=== PATIENT | male | born 1950 | race African-American/Black ===

== ENCOUNTER → 2016-05-14 | Outpatient (CLI) | payer MEDICARE, OTHER ==
[~2016-05-14] MED LIST: ASP325T; CPRH4T; HALO0.5T; HYDR-34; INSU100C; INSU100V13; INSU100V6; LENA25CA; LISI-556; MORP30TA16; OMEP-10; RANI-10; TEMA30CA6; TRAZ150T42; TRM50T; VENL150C53
--- OUTSIDE RECORDS SUMMARY | 2016-05-14 13:33 | XMS REPORT | Clinical Summary ---
Author Author Admin, [place] Organization [employer] Address Unknown Phone Unavailable Allergies, Adverse Reactions, Alerts Allergy Name Reaction Description Start Date Severity Status Provider ERYTHROMYCIN Stomach cramps Moderate Active Prosper Arenas MD CODEINE Critical Active Maliheh Ziglari DURABLE MEDICAL EQUIPMENT REPAIRER DARVOCET Critical Active Maliheh Ziglari DURABLE MEDICAL EQUIPMENT REPAIRER LEVAQUIN Critical Active Maliheh Ziglari DURABLE MEDICAL EQUIPMENT REPAIRER Conditions or Problems Problem Name Problem Code Onset Date Status Entry Date Provider Comment Standard Description Annotate Diabetes, Type 2 250.00 Active Mekhi Dukes MD Diabetes mellitus 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, type II or unspecified type, not stated as uncontrolled Hyperlipidemia 272.4 Active Mekhi Dukes MD Other and unspecified hyperlipidemia Hypertension 401.9 Active Mekhi Dukes MD Unspecified essential hypertension FH Colon Cancer V16.0 Active Mekhi Dukes MD Family history of malignant neoplasm of gastrointestinal tract FH Diabetes V18.0 Active Mekhi Dukes MD Family history of diabetes mellitus Abdominal pain, right upper quadrant 789.01 Active Mekhi Dukes MD Abdominal pain, right upper quadrant Syncope and collapse 780.2 Active Prosper Arenas MD Syncope and collapse Hypokalemia 276.8 Active Prosper Arenas MD Hypopotassemia Diabetes mellitus, type II, uncontrolled 250.02 Active Maliheh Ziglari DURABLE MEDICAL EQUIPMENT REPAIRER Diabetes mellitus 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, type II or unspecified type, uncontrolled Chest pain, atypical 786.59 Active Prosper Arenas MD Other chest pain Bronchitis 490 Active Prosper Arenas MD Bronchitis, not specified as acute or chronic Multiple myeloma 203.00 Active Gena Faux RMA Multiple myeloma 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 having achieved remission Hypercalcemia 275.42 Active Gena Faux RMA Hypercalcemia Cough 786.2 Active Augustina Mata APRN Cough Vertigo 780.4 Active Prosper Arenas MD Dizziness and giddiness Preventive health care V70.0 Active Betsy Buck Routine general medical examination at a health care facility Encounter for fitting and adjustment of vascular catheter V58.81 Active Rogers Doty RN Encounter for fitting and adjustment of vascular catheter Type 2 diabetes mellitus with hyperglycemia 250.00 Active 03/21 Maliheh Ziglari DURABLE MEDICAL EQUIPMENT REPAIRER Diabetes mellitus 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, type II or unspecified type, not stated as uncontrolled 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 V58.67 Active Maliheh Ziglari DURABLE MEDICAL EQUIPMENT REPAIRER Long-term (current) use of insulin Diabetes mellitus, type II with hypoglycemia 250.80 Active 07/22 Maliheh Rodrigoglari DURABLE MEDICAL EQUIPMENT REPAIRER Diabetes mellitus with other specified manifestations, type II or unspecified type, not stated as uncontrolled 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 INSULIN GLARGINE 39749484152 Active Maliheh Ziglari DURABLE MEDICAL EQUIPMENT REPAIRER Active MECLIZINE HCL 25 MG TABS 1 daily needed for dizziness MECLIZINE HCL 82453019433 No Longer Active Maliheh Ziglari DURABLE MEDICAL EQUIPMENT REPAIRER Active ACCU-CHEK JOANNA PLUS STRP check blood sugars 3x a day GLUCOSE BLOOD 27684420967 Active [facility] Ziglari DURABLE MEDICAL EQUIPMENT REPAIRER Active NOVOLOG FLEXPEN 100 UNIT/ML SOPN Take 25 units with each meal, add 2u/50 for blood sugars above 150. INSULIN ASPART 72589929548 [facility] DURABLE MEDICAL EQUIPMENT REPAIRER Active BENZONATATE 200 MG CAPS 1 tab, 2-3 times a day BENZONATATE 71004055499 No Longer Active [facility] DURABLE MEDICAL EQUIPMENT REPAIRER Active HALOPERIDOL 0.5 MG TABS one tablet three times a day HALOPERIDOL 06833811257 No Longer Active [facility] DURABLE MEDICAL EQUIPMENT REPAIRER Active TRAZODONE HCL 50 MG TAB three tablets at bed time TRAZODONE HCL 59005061330 No Longer Active [facility] DURABLE MEDICAL EQUIPMENT REPAIRER Active REVLIMID 25 MG CAPS one capsule daily for 21 days then off for 7 days 2014 LENALIDOMIDE 39699301772 No Long[facility] DURABLE MEDICAL EQUIPMENT REPAIRER Active ZITHROMAX Z-EDDIE 250 MG TABS 2 today, then 1 daily for 4 days 2014 AZITHROMYCIN 62607422269 No Longer Active Augustina Mata ADOPTION SPECIALIST Active NOVOLIN R RELION 100 UNIT/ML INJ SOLN 30- 40 units each meal sliding scale INSULIN REGULAR HUMAN 94887102456 No Longer Active [facility] DURABLE MEDICAL EQUIPMENT REPAIRER Active LISINOPRIL 5 MG TABS 1 daily LISINOPRIL 02606014654 Active Prosper Arenas MD Active CALCIUM 500/D 500-200 MG-UNIT TABS one tablet daily CALCIUM CARBONATE- VITAMIN D 92122987967 Active Prosper Arenas MD Active HYDROCHLOROTHIAZIDE 25 MG TABS 1 tablet by mouth daily HYDROCHLOROTHIAZIDE 30139086808 Active Prosper Arenas MD Active HYDROCODONE-ACETAMINOPHEN 5-500 MG TABS 1-2 FOUR TIMES A DAY, PRN HYDROCODONE-ACETAMINOPHEN 82514593495 No Longer Active Prosper Arenas MD Active SIMVASTATIN 80 MG TABS 1/2 tablet daily SIMVASTATIN 36830967706 Active Prosper Arenas MD Active METOPROLOL TARTRATE 25 MG TABS 1/2 tablet twice a day METOPROLOL TARTRATE 41316010608 Active Prosper Arenas MD Active ASPIRIN 81 MG TAB 1 tablet by mouth daily ASPIRIN 80626333584 Active Prosper Arenas MD Active OMEPRAZOLE 20 MG CPDR 1 qd OMEPRAZOLE 95181775321 Active DARCIE Miller Active DOXYCYCLINE HYCLATE 100 MG CAPS take one capsule by mouth twice daily for ten days DOXYCYCLINE HYCLATE 52732879926 No Longer Active Mekhi Dukes MD Active DOXYCYCLINE HYCLATE 100 MG CAPS take one capsule by mouth twice daily for ten days DOXYCYCLINE HYCLATE 100 MG CAPS 5090436 DOXYCYCLINE HYCLATE Inactive HYDROCODONE-ACETAMINOPHEN 5-500 MG TABS 1-2 FOUR TIMES A DAY, PRN HYDROCODONE-ACETAMINOPHEN 5-500 MG TABS HYDROCODONE- ACETAMINOPHEN Inactive NOVOLIN R RELION 100 UNIT/ML INJ SOLN 30- 40 units each meal sliding scale NOVOLIN R RELION 100 UNIT/ML INJ SOLN INSULIN REGULAR HUMAN Inactive ZITHROMAX Z-EDDIE 250 MG TABS 2 today, then 1 daily for 4 days 2014 ZITHROMAX Z-EDDIE 250 MG TABS 7591309 AZITHROMYCIN Inactive REVLIMID 25 MG CAPS one capsule daily for 21 days then off for 7 days 2014 REVLIMID 25 MG CAPS LENALIDOMIDE Inactive TRAZODONE HCL 50 MG TAB three tablets at bed time TRAZODONE HCL 50 MG TAB 725861 TRAZODONE HCL Inactive HALOPERIDOL 0.5 MG TABS one tablet three times a day HALOPERIDOL 0.5 MG TABS 853868 HALOPERIDOL Inactive BENZONATATE 200 MG CAPS 1 tab, 2-3 times a day BENZONATATE 200 MG CAPS 441276 BENZONATATE Inactive MECLIZINE HCL 25 MG TABS 1 daily needed for dizziness MECLIZINE HCL 25 MG TABS 930445 MECLIZINE HCL Inactive Immunizations Vaccine Administration Date Value Standard Description pneumococcal immunization administered 01/19/2015 pneumococcal polysaccharide vaccine, 23 valent influenza immunization (Flu Vax) has been administered 01/19/2015 influenza virus vaccine, unspecified formulation influenza immunization (Flu Vax) has been administered 01/09/2014 influenza virus vaccine, unspecified formulation Vital Signs Date Name Value Unit Range Description blood pressure, diastolic - 8462-4 70 mm[Hg] BP chavez blood pressure, systolic - 8480-6 118 mm[Hg] BP sys pulse rate E&M - 8867-4 84 /min Heart rate weight E&M - 3141-9 192 [lb_av] Weight Measured blood pressure, diastolic - 8462-4 70 mm[Hg] BP chavez blood pressure, systolic - 8480-6 122 mm[Hg] BP sys height E&M - 8302-2 66 [in_us] Bdy height pulse rate E&M - 8867-4 100 /min Heart rate weight E&M - 3141-9 190 [lb_av] Weight Measured blood pressure, diastolic - 8462-4 80 mm[Hg] BP chavez blood pressure, systolic - 8480-6 128 mm[Hg] BP sys pulse rate E&M - 8867-4 96 /min Heart rate weight E&M - 3141-9 192 [lb_av] Weight Measured Diagnostic Results Date Name Value Unit Range Description Office Visit: Diabetes Visit - Chemistry cholesterol, target level 200 mg/dL triglyceride, target level 200 mg/dL HDL cholesterol, serum, target level 35 mg/dL LDL target level 100 mg/dL cholesterol, target level 200 mg/dL triglyceride, target level 200 mg/dL HDL cholesterol, serum, target level 35 mg/dL LDL target level 100 mg/dL cholesterol, target level 200 mg/dL triglyceride, target level 200 mg/dL HDL cholesterol, serum, target level 35 mg/dL LDL target level 100 mg/dL Encounters Code Encounter Date Provider Facility CPT-49526 Level 3 Est. [facility]18[facility]. [facility] 11:05[facility] CPT-30031 Level 3 Est. Patient 11:08:27 [employer] Moy Garcia [facility] CPT-82788 Level 4 Est. Patient 10:43:59 CDT Prosper Arenas MD [facility] CPT-09672 Level 3 Est. Patient 10:51:19 [facility] Level 3 Est. Patient 10:20:31 [facility] Level 3 Est. Patient 17:08:45 [place] [facility] [place]8525 Level 2 Est. Patient 13:54:36 CDT Augustinajaclyn Mata [facility] CPT-29370 Level 3 Est. Patient 12:00:42 CDT Prosper Arenas MD [facility] CPT-19114 Level 3 Est. Patient 09:57:28 [employer] Moy Garcia [facility] CPT-30479 Level 3 Est. Patient 11:41:19 [employer]CH[employer] Moy Garcia [facility] CPT-26475 Level 4 Est. Patient 17:07:35 [employer] ARCH[employer] [facility] CPT-18303 Level 5 Est. Patient 14:33:32 [facility] CPT-99[facility] Level 3 Est. Patient 12:25:35 CDT Prosper Arenas MD [facility] Procedures Code Procedure Name Date Entry Date Standard Description CPT-68594 First Vx - Ix admin for Medicare patients 10:42:57 [employer] CPT-71754 Fluzone Preservative Free Intramuscular Suspension 10:42 :57 [employer] CPT-G0438 Initial Annual Wellness Exam 10:13:55 [employer] CPT-000 Give Appropriate Flu Vaccine 10:44:04 CDT CPT-000 Give Pneumovax 10:44:03 CDT CPT-73098 Port a cath flush 17:04:43 CDT CPT-98740 Prevnar 13 11:19:17 CDT CPT-60573 Fluzone Quadrivalent preservative free (>=3yrs.) 11:19: 17 CDT CPT-62708 Immunization Each Additional Inj 11:19:17 CDT CPT-19032 Immunization Single Admin 11:19:17 CDT CPT-46567 Port a cath flush 13:28:22 CDT CPT-TCMM Transitional Care Mgmt-Moderate 13:40:15 CDT CPT-G0008 Administration of Influenza Virus Vaccine 13:59:20 CDT CPT-01372 Fluzone High-Dose Intramuscular Suspension 13:59:20 CDT CPT-31591 Venipuncture Draw Fee 09:56:19 CDT CPT-OV Office Visit 15:46:10 CDT
--- NOTE | 2016-05-15 08:25 | ECHOCARDIOGRAPHY REPORT ---
PROCEDURE PHYSICIAN: STEF JOE DATE OF PROCEDURE: 05/14/2016 TWO DIMENSIONAL ECHOCARDIOGRAM REPORT PRIMARY PHYSICIAN: OTHER PHYSICIAN: REFERRING PHYSICIAN: ORDERING PHYSICIAN: INDICATION FOR THE PROCEDURE: 1. Hypertension. 2. Dyspnea. MEASUREMENTS DERIVED VALUES LV DIAMETER (LAX) NORMALS NORMALS Diastolic 2.8 (3.6-5.2) Eject. Fract. 60% (60%+/-6%) Systolic (2.3-3.9) Diastolic Vol. % Shortening (0.22-0.42) Systolic Vol. Aortic Root IVS THICKNESS Diastolic 1 (0.6-1.1) LVPW THICKNESS Diastolic 1 (0.6-1.1) LA DIAMETER Systolic 2.3 (2.1-3.7) FINDINGS: 1. Technically difficult study. 2. The left ventricle is normal in size with normal contractility. Systolic function appeared to be normal. Estimated ejection fraction 60%. 3. The left atrium is normal in size. No clot or thrombus were seen within the left atrium. 4. The right atrium and right ventricle are normal in size. No clot or thrombus were seen within the right side. 5. Mitral valve is normal in morphology with mild mitral regurgitation noted by color Doppler flow. No mitral valve prolapse. No mitral valve stenosis. 6. Aortic valve is trileaflet with normal opening and closing pattern. No significant aortic stenosis or regurgitation was seen. 7. Tricuspid valve is normal in morphology with trace tricuspid regurgitation noted by color Doppler flow. Doppler across tricuspid valve estimated pulmonary artery pressure of 3+ right atrial pressure. 8. Pulmonic valve is functioning normally. 9. No pericardial effusion. IN CONCLUSION: 1. Normal left ventricular size and systolic function. Estimated ejection fraction 60%. 2. Mild mitral and tricuspid regurgitation. 3. Estimated pulmonary artery pressure of 10 mmHg. Job ID: [id number] Dictated Date: 05/14/2016 17:58:09 Supervisor Quilting Date: 05/15/2016 08:21:55 / tbk
--- NOTE | 2016-05-15 08:36 | STRESS TEST ---
PROCEDURE PHYSICIAN: STEF JOE DATE OF PROCEDURE: 05/14/2016 EXERCISE STRESS ECHOCARDIOGRAM REPORT: INDICATION FOR THE PROCEDURE: Chest pain. BASELINE HEART RATE: 60 BASELINE BLOOD PRESSURE: 129/74 BASELINE EKG: Sinus rhythm with no ischemic changes. IN SUMMARY: The patient started exercising with a baseline heart rate, blood pressure, EKG mentioned above. He was able to exercise for total of 6 minutes on standard Jason protocol, achieving maximum heart rate of 141, which is 90% of maximum expected heart rate. With peak exercise level, blood pressure was 231/98. EKG was showing minimal nondiagnostic changes. During recovery, heart rate and blood pressure returned to baseline. EKG returned to baseline. Echocardiographic images were acquired and reviewed in the parasternal long axis, parasternal short axis, apical 4 chamber and apical 2 chamber views. Review of the images showed normal left ventricular size with normal contractility. Estimated ejection fraction 60, no ischemic changes. IN CONCLUSION: 1. Good exercise tolerance a total of 6 minutes on standard Jason protocol 7 METs, achieving 90% of maximum expected heart rate. 2. Severe hypertensive response to exercise, returned to baseline during recovery. 3. Minimal nondiagnostic EKG changes with exercise, returned to baseline during recovery. 4. Normal echocardiographic images with no ischemic changes at rest and with peak stress test. Job ID: [id number] Dictated Date: 05/14/2016 18:00:08 Log Hauler Date: 05/15/2016 08:33:05 / ian
== END ==
LOC: CARD 13:28
PROVIDERS: ATTEND Internal Medicine Cardiovascular Disease
DX: I10 Essential (primary) hypertension (principal); E78.2 Mixed hyperlipidemia; E66.9 Obesity, unspecified; I95.9 Hypotension, unspecified; R42 Dizziness and giddiness
CPT/HCPCS: 93306; 93351

== ENCOUNTER 2017-08-25 19:09 | Emergency (ER) | payer MEDICARE, OTHER ==
[~2017-08-25] VITALS: Ht 165.1 cm; Wt 79.4 kg
[2017-08-25 20:02] LABS: BASOPHILS % (AUTO) 0 % (0-10); EOSINOPHILS % (AUTO) 2 % (0-10); HEMATOCRIT 35 % (40-54); HEMOGLOBIN 12.7 G/DL (13.3-17.7); LYMPHOCYTES # (AUTO) 0.2 X 10^3 (1.0-4.0); LYMPHOCYTES % (AUTO) 9 % (12-44); MEAN CORPUSCULAR HEMOGLOBIN 34 PG (25-34); MEAN CORPUSCULAR HGB CONC 36 G/DL (32-36); MEAN CORPUSCULAR VOLUME 92 FL (80-99); MEAN PLATELET VOLUME 11.8 FL (7.4-10.4); MONOCYTES # (AUTO) 0.6 X 10^3 (0.0-1.0); MONOCYTES % (AUTO) 23 % (0-12); NEUTROPHILS # (AUTO) 1.7 X 10^3 (1.8-7.8); NEUTROPHILS % (AUTO) 65 % (42-75); PLATELET COUNT 114 10^3/uL (130-400); RED BLOOD COUNT 3.79 10^6/uL (4.35-5.85); RED CELL DISTRIBUTION WIDTH 11.9 % (10.0-14.5); WHITE BLOOD COUNT 2.6 10^3/uL (4.3-11.0)
[2017-08-25 20:10] VITALS: BP_SYST 118; BP_SYST 132; BP_SYST 99; BP_DIAS 68; BP_DIAS 74
[2017-08-25 20:12] LABS: BILIRUBIN,URINE NEGATIVE (NEGATIVE); CLARITY,URINE CLEAR; COLOR,URINE YELLOW; GLUCOSE, URINE (UA) NEGATIVE (NEGATIVE); KETONES,URINE NEGATIVE (NEGATIVE); LEUKOCYTE ESTERASE ,URINE NEGATIVE (NEGATIVE); NITRITE,URINE NEGATIVE (NEGATIVE); PH,URINE 6 (5-9); PROTEIN,URINE NEGATIVE (NEGATIVE); UROBILINOGEN,URINE 1 MG/DL (NORMAL)
[2017-08-25] MEDS ORDERED: NS IV 1000 ML 1,000 ML IV ONE (20:15)
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
[2017-08-25 20:19] LABS: ALANINE AMINOTRANSFERASE 66 U/L (0-55); ALBUMIN 3.5 GM/DL (3.2-4.5); ALKALINE PHOSPHATASE 96 U/L (40-136); BILIRUBIN,TOTAL 0.4 MG/DL (0.1-1.0); BUN/CREATININE RATIO 13; CALCIUM 8.4 MG/DL (8.5-10.1); CARBON DIOXIDE 18 MMOL/L (21-32); CHLORIDE 108 MMOL/L (98-107); CREATINE KINASE 104 U/L (30-200); CREATININE SERUM 1.47 MG/DL (0.60-1.30); GFR ESTIMATED 58; GLUCOSE 139 MG/DL (70-105); MAGNESIUM 2.1 MG/DL (1.8-2.4); POTASSIUM 3.8 MMOL/L (3.6-5.0); SODIUM 136 MMOL/L (135-145); TOTAL PROTEIN 6.1 GM/DL (6.4-8.2)
--- NOTE | 2017-08-25 20:19 | Diagnostic Imaging Report ---
INDICATION: Short of breath and dizziness. Hypotension. Multiple myeloma Upright chest shows normal heart size and vascularity. The lungs are clear. There is no effusion or pneumothorax. There is no bony abnormality. A Port-A-Cath is present. IMPRESSION: No acute abnormality is seen with no change from 11/05/2010. Dictated by: Dictated on workstation # [id number]
[2017-08-25 20:22] LABS: BACTERIA,URINE NEGATIVE /HPF; SQUAMOUS EPITHELIAL CELL,UR RARE /HPF
[2017-08-25 20:25] LABS: CREATINE KINASE MB 1.2 NG/ML (<6.6)
[2017-08-25 20:35] LABS: BASOPHILS % (MANUAL) 1 %; EOSINOPHILS % (MANUAL) 2 %; LYMPHOCYTES % (MANUAL) 11 %; MONOCYTES % (MANUAL) 18 %; NEUTROPHILS % (MANUAL) 68 %
[2017-08-25 20:36] LABS: RBC MORPH NORMAL
--- OUTSIDE RECORDS SUMMARY | 2017-08-25 20:49 | XMS REPORT | Clinical Summary ---
Author Author Admin, [place] Organization [employer] Address Unknown Phone Unavailable Allergies, Adverse Reactions, Alerts Allergy Name Reaction Description Start Date Severity Status Provider ERYTHROMYCIN Stomach cramps Moderate Active Prosper Arenas MD CODEINE Critical Active Maliheh Ziglari PARASITOLOGY TEACHER DARVOCET Critical Active Maliheh Ziglari PARASITOLOGY TEACHER LEVAQUIN Critical Active Maliheh Ziglari PARASITOLOGY TEACHER Conditions or Problems Problem Name Problem Code Onset Date Status Entry Date Provider Comment Standard Description Annotate Diabetes, Type 2 250.00 Resolved Tami Miller inspector paper products mellitus 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, type II [...] mellitus Abdominal pain, right upper quadrant 789.01 Resolved Mekhi Dukes MD Abdominal pain, right upper quadrant Syncope and collapse 780.2 Resolved Mekhi Dukes MD Syncope and collapse Hypokalemia 276.8 Resolved Tami Miller RN Hypopotassemia Diabetes mellitus, type II, uncontrolled 250.02 Active Maliheh Rodrigoglari PARASITOLOGY TEACHER Diabetes mellitus 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, type II or unspecified type, uncontrolled Chest pain, atypical 786.59 Resolved Mekhi Dukes MD Other chest pain Bronchitis 490 Resolved Mekhi Dukes MD Bronchitis, not specified as acute or chronic Multiple myeloma 203.00 Active Gena Faux RMA Multiple myeloma 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 having achieved remission Hypercalcemia 275.42 Active Gena Faux RMA Hypercalcemia Cough 786.2 Resolved Mekhi Dukes MD Cough Vertigo 780.4 Resolved Mekhi Dukes MD Dizziness and giddiness Preventive health care V70.0 Active Betsy Ronnie Routine general medical examination at a health care facility Encounter for fitting and adjustment of vascular catheter V58.81 Resolved Tami Miller RN Encounter for fitting and adjustment of vascular catheter Type 2 diabetes mellitus with hyperglycemia 250.00 Active 03/21 Maliheh Ziglari PARASITOLOGY TEACHER Diabetes mellitus 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, type II or unspecified type, not stated as uncontrolled long-term use of insulin treatment V58.67 Active Luxiheh Rodrigoglari PARASITOLOGY TEACHER Long-term (current) use of insulin Diabetes mellitus, type II with hypoglycemia 250.80 Active 07/22 Maliheh Ziglari PARASITOLOGY TEACHER Diabetes mellitus with other specified manifestations, type II or unspecified type, not stated as uncontrolled 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 Maliheh Ziglari PARASITOLOGY TEACHER Diabetes mellitus with renal manifestations, type II or unspecified type, not stated as uncontrolled Wellness exam V70.0 Active Dee Palmer APRN Routine general medical examination at a health care facility Fitting and adjustment of vascular catheter V58.81 Active 02/06 Dee Palmer APRN Encounter for fitting and adjustment of vascular catheter Unawareness of hypoglycemia in diabetes mellitus, type II 250.80 Active Maliheh Ziglari PARASITOLOGY TEACHER Diabetes mellitus with other specified manifestations, type II or unspecified type, not stated as uncontrolled Groin pain, right 789.09 Active Prosper Arenas MD Abdominal pain, other specified site; multiple sites Obesity 278.00 Inactive Prosper Arenas MD Obesity, unspecified Obesity (BMI=30-39.9) 278.00 Active Karrie Lawson APRN Obesity, unspecified Cough 786.2 Resolved Tami Miller RN Cough Headache 784.0 Resolved Tami Miller RN Headache Inguinal pain, right 789.09 Active Ismael Gracia MD Abdominal pain, other specified site; multiple sites Erectile Dysfunction Active Ismael Gracia MD Psychosexual dysfunction, hypoactive sexual desire disorder Hepatitis C, acute 070.51 Active Karrie Lawson APRN Acute hepatitis C 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 hepatic coma Inguinal hernia 550.90 Active Karrie Lawson APRN Unilateral or unspecified inguinal hernia, 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 obstruction or gangrene (not specified as recurrent) Diabetes, Type 2 ICD-250.00 Inactive Mekhi Dukes MD Abdominal pain, right upper quadrant ICD-789.01 Inactive Mekhi Dukes MD Syncope and collapse ICD-780.2 Inactive Mekhi Dukes MD Hypokalemia ICD-276.8 Inactive Mekhi Dukes MD Chest pain, atypical ICD-786.59 Inactive Mekhi Dukes MD Bronchitis ICD-490 Inactive Mekhi Dukes MD Cough ICD-786.2 Inactive Mekhi Dukes MD Vertigo ICD-780.4 Inactive Mekhi Dukes MD Encounter for fitting and adjustment of vascular catheter ICD-V58.81 Inactive Mekhi Dukes MD Cough ICD-786.2 Inactive Mekhi Dukes MD Headache ICD-784.0 Inactive Mekhi Dukes MD Medication List Medication Instructions Start Date Stop Date Generic Name NDC Status Provider Patient Instruction HYDROCODONE-ACETAMINOPHEN 7.5-325 MG ORAL TABLET 1-2 every 4-6 hrs prn 02/25 HYDROCODONE-ACETAMINOPHEN 69560765116 Active Marina Messina APRN Active ASPIRIN 81 MG ORAL TABLET 1 tablet by mouth daily ASPIRIN 30355464847 No Longer Active Marina Mesisna APRN Active SIMVASTATIN 80 MG ORAL TABLET 1/2 tablet daily SIMVASTATIN 95351561552 No Longer Active Mekhi Dukes MD Active OMEPRAZOLE 20 MG ORAL CAPSULE DELAYED RELEASE 1 qd OMEPRAZOLE 32305275421 No Longer Active Mekhi Dukes MD Active METOPROLOL TARTRATE 25 MG ORAL TABLET 1/2 tablet twice a day METOPROLOL TARTRATE 19400388499 No Longer Active Mekhi Dukes MD Active LISINOPRIL 5 MG ORAL TABLET 1 daily LISINOPRIL 29273513105 No Longer Active Mekhi Dukes MD Active NOVOLOG FLEXPEN 100 UNIT/ML SUBCUTANEOUS SOLUTION PEN-INJECTOR Take 8 units with each meal, add 1u/50 for blood sugars above 150. INSULIN ASPART 24864896827 Active Moy PARISH Active GABAPENTIN 300 MG ORAL CAPSULE 1 tab BID GABAPENTIN 60079251758 Active Tami Miller RN Active PREDNISONE 20 MG ORAL TABLET Take 2 daily for 3 days and then 1 daily for 3 days PREDNISONE 22792519090 No Longer Active Moy PARISH Active BENZONATATE 200 MG ORAL CAPSULE Take 1 tablet 3 times a day as needed for cough BENZONATATE 26901275896 No Longer Active Prosper Arenas MD Active HYDROCHLOROTHIAZIDE 25 MG ORAL TABLET 1 tablet by mouth daily HYDROCHLOROTHIAZIDE 56039992762 No Longer Active Prosper Arenas MD Active ACCU-CHEK JOANNA PLUS IN VITRO STRIP check blood sugars 5x a day, before each meal and bedtime and 15 minutes after treating a low blood. sugar GLUCOSE BLOOD 97645616567 Active Maliheh Ziglari PARASITOLOGY TEACHER Active LANTUS SOLOSTAR 100 UNIT/ML SUBCUTANEOUS SOLUTION PEN-INJECTOR Take 40 units at 7-8pm daily INSULIN GLARGINE 16125739630 Active Maliheh Ziglari PARASITOLOGY TEACHER Active MECLIZINE HCL 25 MG ORAL TABLET 1 daily needed for dizziness 2015 MECLIZINE HCL 88115026897 No Longer Active Maliheh Ziglari PARASITOLOGY TEACHER Active BENZONATATE 200 MG ORAL CAPSULE 1 tab, 2-3 times a day BENZONATATE 55010741183 No Longer Active Maliheh Ziglari PARASITOLOGY TEACHER Active HALOPERIDOL 0.5 MG ORAL TABLET one tablet three times a day HALOPERIDOL 98939588270 No Longer Active Maliheh Ziglari PARASITOLOGY TEACHER Active TRAZODONE HCL 50 MG ORAL TABLET three tablets at bed time TRAZODONE HCL 86731539395 No Longer Active Maliheh Ziglari PARASITOLOGY TEACHER Active REVLIMID 25 MG ORAL CAPSULE one capsule daily for 21 days then off for 7 days LENALIDOMIDE 26123160193 No Longer Active Maliheh Ziglari PARASITOLOGY TEACHER Active ZITHROMAX Z-EDDIE 250 MG ORAL TABLET 2 today, then 1 daily for 4 days AZITHROMYCIN 84417366981 No Longer Active Augustina Mata APRN Active NOVOLIN R RELION 100 UNIT/ML INJECTION SOLUTION 30- 40 units each meal sliding scale INSULIN REGULAR HUMAN 32783183011 No Longer Active Maliheh Ziglari PARASITOLOGY TEACHER Active CALCIUM 500/D 500-200 MG-UNIT ORAL TABLET one tablet daily CALCIUM CARBONATE-VITAMIN D 78507145536 Active Prosper Arenas MD Active HYDROCODONE-ACETAMINOPHEN 5-500 MG ORAL TABLET 1-2 FOUR TIMES A DAY, PRN 2010 HYDROCODONE-ACETAMINOPHEN 02997242784 No Longer Active Prosper Arenas MD Active DOXYCYCLINE HYCLATE 100 MG ORAL CAPSULE take one capsule by mouth twice daily for ten days DOXYCYCLINE HYCLATE 88405724511 No Longer Active Mekhi Dukes MD Active DOXYCYCLINE HYCLATE 100 MG ORAL CAPSULE take one capsule by mouth twice daily for ten days DOXYCYCLINE HYCLATE 100 MG ORAL CAPSULE 0976200 DOXYCYCLINE HYCLATE Inactive HYDROCODONE-ACETAMINOPHEN 5-500 MG ORAL TABLET 1-2 FOUR TIMES A DAY, PRN 2010 HYDROCODONE-ACETAMINOPHEN 5-500 MG ORAL TABLET 620102 HYDROCODONE-ACETAMINOPHEN Inactive NOVOLIN R RELION 100 UNIT/ML INJECTION SOLUTION 30- 40 units each meal sliding scale NOVOLIN R RELION 100 UNIT/ML INJECTION SOLUTION INSULIN REGULAR HUMAN Inactive ZITHROMAX Z-EDDIE 250 MG ORAL TABLET 2 today, then 1 daily for 4 days ZITHROMAX Z-EDDIE 250 MG ORAL TABLET 998540 AZITHROMYCIN Inactive REVLIMID 25 MG ORAL CAPSULE one capsule daily for 21 days then off for 7 days REVLIMID 25 MG ORAL CAPSULE LENALIDOMIDE Inactive TRAZODONE HCL 50 MG ORAL TABLET three tablets at bed time TRAZODONE HCL 50 MG ORAL TABLET 534205 TRAZODONE HCL Inactive HALOPERIDOL 0.5 MG ORAL TABLET one tablet three times a day HALOPERIDOL 0.5 MG ORAL TABLET 077640 HALOPERIDOL Inactive BENZONATATE 200 MG ORAL CAPSULE 1 tab, 2-3 times a day BENZONATATE 200 MG ORAL CAPSULE 417493 BENZONATATE Inactive MECLIZINE HCL 25 MG ORAL TABLET 1 daily needed for dizziness 2015 MECLIZINE HCL 25 MG ORAL TABLET 755255 MECLIZINE HCL Inactive HYDROCHLOROTHIAZIDE 25 MG ORAL TABLET 1 tablet by mouth daily HYDROCHLOROTHIAZIDE 25 MG ORAL TABLET 404247 HYDROCHLOROTHIAZIDE Inactive PREDNISONE 20 MG ORAL TABLET Take 2 daily for 3 days and then 1 daily for 3 days PREDNISONE 20 MG ORAL TABLET 911909 PREDNISONE Inactive LISINOPRIL 5 MG ORAL TABLET 1 daily LISINOPRIL 5 MG ORAL TABLET 976530 LISINOPRIL Inactive METOPROLOL TARTRATE 25 MG ORAL TABLET 1/2 tablet twice a day METOPROLOL TARTRATE 25 MG ORAL TABLET 452307 METOPROLOL TARTRATE Inactive OMEPRAZOLE 20 MG ORAL CAPSULE DELAYED RELEASE 1 qd OMEPRAZOLE 20 MG ORAL CAPSULE DELAYED RELEASE 604752 OMEPRAZOLE Inactive SIMVASTATIN 80 MG ORAL TABLET 1/2 tablet daily SIMVASTATIN 80 MG ORAL TABLET 520315 SIMVASTATIN Inactive ASPIRIN 81 MG ORAL TABLET 1 tablet by mouth daily ASPIRIN 81 MG ORAL TABLET 176890 ASPIRIN Inactive BENZONATATE 200 MG ORAL CAPSULE Take 1 tablet 3 times a day as needed for cough BENZONATATE 200 MG ORAL CAPSULE 108296 BENZONATATE Inactive Immunizations Vaccine Administration Date Value Standard Description influenza immunization (Flu Vax) has been administered 02/07/2016 influenza virus vaccine, unspecified formulation influenza immunization (Flu Vax) has been administered 01/19/2015 influenza virus vaccine, unspecified formulation pneumococcal immunization administered 01/19/2015 pneumococcal polysaccharide vaccine, 23 valent influenza immunization (Flu Vax) has been administered 01/09/2014 influenza virus vaccine, unspecified formulation Vital Signs Date Name Value Unit Range Description blood pressure, diastolic 61 mm[Hg] BP chavez blood pressure, systolic 118 mm[Hg] BP sys pulse rate E&M 80 /min Heart rate temperature E&M 97.2 [degF] Body temperature weight E&M 176 [lb_av] Weight Measured blood pressure, diastolic 60 mm[Hg] BP chavez blood pressure, systolic 130 mm[Hg] BP sys pulse rate E&M 90 /min Heart rate temperature E&M 96.7 [degF] Body temperature weight E&M 176 [lb_av] Weight Measured blood pressure, diastolic 65 mm[Hg] BP chavez blood pressure, systolic 124 mm[Hg] BP sys height E&M 65.5 [in_us] Bdy height pulse rate E&M 98 /min Heart rate temperature E&M 97.0 [degF] Body temperature weight E&M 178.5 [lb_av] Weight Measured blood pressure, diastolic 63 mm[Hg] BP chavez blood pressure, systolic 133 mm[Hg] BP sys height E&M 65.5 [in_us] Bdy height pulse rate E&M 92 /min Heart rate temperature E&M 96.8 [degF] Body temperature weight E&M 176 [lb_av] Weight Measured blood pressure, diastolic 70 mm[Hg] BP chavez blood pressure, systolic 150 mm[Hg] BP sys height E&M 65.5 [in_us] Bdy height pulse rate E&M 89 /min Heart rate temperature E&M 96.5 [degF] Body temperature weight E&M 182 [lb_av] Weight Measured blood pressure, diastolic 68 mm[Hg] BP chavez blood pressure, systolic 115 mm[Hg] BP sys pulse rate E&M 72 /min Heart rate temperature E&M 98.5 [degF] Body temperature weight E&M 181.2 [lb_av] Weight Measured blood pressure, diastolic 78 mm[Hg] BP chavez blood pressure, systolic 134 mm[Hg] BP sys height E&M 65.5 [in_us] Bdy height pulse rate E&M 106 /min Heart rate temperature E&M 97. [degF] Body temperature weight E&M 180.5 [lb_av] Weight Measured blood pressure, diastolic 80 mm[Hg] BP chavez blood pressure, systolic 130 mm[Hg] BP sys height E&M 65.5 [in_us] Bdy height pulse rate E&M 80 /min Heart rate weight E&M 182 [lb_av] Weight Measured blood pressure, diastolic 75 mm[Hg] BP chavez blood pressure, systolic 136 mm[Hg] BP sys height E&M 65.5 [in_us] Bdy height pulse rate E&M 76 /min Heart rate temperature E&M 96.0 [degF] Body temperature weight E&M 187 [lb_av] Weight Measured blood pressure, diastolic 80 mm[Hg] BP chavez blood pressure, systolic 120 mm[Hg] BP sys pulse rate E&M 72 /min Heart rate weight E&M 190 [lb_av] Weight Measured blood pressure, diastolic 92 mm[Hg] BP chavez blood pressure, systolic 126 mm[Hg] BP sys pulse rate E&M 89 /min Heart rate temperature E&M 98.5 [degF] Body temperature weight E&M 191.5 [lb_av] Weight Measured blood pressure, diastolic 80 mm[Hg] BP chavez blood pressure, systolic 128 mm[Hg] BP sys height E&M 65.5 [in_us] Bdy height weight E&M 195.2 [lb_av] Weight Measured blood pressure, diastolic 74 mm[Hg] BP chavez blood pressure, systolic 126 mm[Hg] BP sys pulse rate E&M 82 /min Heart rate temperature E&M 95.8 [degF] Body temperature weight E&M 197 [lb_av] Weight Measured blood pressure, diastolic 78 mm[Hg] BP chavez blood pressure, systolic 124 mm[Hg] BP sys pulse rate E&M 84 /min Heart rate temperature E&M 98.1 [degF] Body temperature weight E&M 196 [lb_av] Weight Measured blood pressure, diastolic 60 mm[Hg] BP chavez blood pressure, systolic 120 mm[Hg] BP sys height E&M 66 [in_us] Bdy height pulse rate E&M 72 /min Heart rate weight E&M 196 [lb_av] Weight Measured Diagnostic Results Date Name Value Unit Range Description Chart Maintenance: outside lab added to flowsheet - Urinalysis microalbumin/total urine volume 5 mg/L Lab Report: Comp. Metabolic Panel, CBC W/DIFF - Chemistry sodium, serum 137 mmol/L 705-798 4689/08/16 carbon dioxide, venous blood 26.3 mmol/L 21.0-32.0 potassium, serum 4.4 mmol/L 3.5-5.2 chloride, serum 104 mmol/L 98-107 blood glucose 138 mg/dL 65-110 urea nitrogen, blood 23 mg/dL 7-18 creatinine, serum 2.38 mg/dL 0.60-1.30 alanine aminotransferase (SGPT), serum 96 U/L 12-78 aspartate aminotransferase (SGOT), serum 85 U/L 15-37 calcium, serum 9.0 mg/dL 8.5-10.1 bilirubin, serum, total 0.50 mg/dL 0.00-1.00 Lab Report: Comp. Metabolic Panel, CBC W/DIFF - Hematology leukocyte count, blood 6.1 10^3/MM^3 10*3/mm3 4.6-10.2 neutrophils as percent of blood leukocytes 34.8 % 42.2-75.2 monocytes as percent of blood leukocytes 12.4 % 1.7-9.3 lymphocytes as percent of blood leukocytes 47.0 % 20.5-51.1 erythrocyte (RBC) count 4.66 10^6/MM^3 10*6/mm3 4.50-6.50 hemoglobin, blood 14.5 g/dL 14.0-18.0 hematocrit, blood 43.8 % 40.0-54.0 mean corpuscular volume, RBC 94 fL 80-97 mean corpuscular hemoglobin, RBC 31.1 pg 27.0-31.2 mean corpuscular hemoglobin concentration, RBC 33.1 G/DL % 31.8- 35.4 red blood cell distribution width 13.7 % 11.6-14.8 platelet count 215 10^3/MM^3 10*3/mm3 142-424 Lab Report: HGBA1C - Chemistry hemoglobin A1C, blood, as % of total hemoglobin 6.6 % 4.3-6.0 Lab Report: [facility], [facility] Chemistry cholesterol, serum 115 mg/dL [phone]/08/18 triglyceride, serum, fasting 89 mg/dL 30-200 HDL cholesterol, serum 46 mg/dL 32-60 LDL cholesterol, serum 51 mg/dL 0-130 blood glucose 104 mg/dL 65-110 Lab Report: LIPID PANEL- [facility] - Chemistry cholesterol, serum 156 mg/dL 292-018 4183/02/20 HDL cholesterol, serum 52 mg/dL > OR=40 triglyceride, serum, fasting 112 mg/dL <150 LDL cholesterol, serum 82 MG/DL (CALC) mg/dL <130 cholesterol/HDL ratio, serum 3.0 (calc) < OR=5.0 Office Visit: Diabetes Visit - Basic LDL target level 100 mg/dL LDL target level 100 mg/dL LDL target level 100 mg/dL Office Visit: Diabetes Visit - Chemistry cholesterol, target level 200 mg/dL triglyceride, target level 200 mg/dL HDL cholesterol, serum, target level 35 mg/dL cholesterol, target level 200 mg/dL triglyceride, target level 200 mg/dL HDL cholesterol, serum, target level 35 mg/dL cholesterol, target level 200 mg/dL triglyceride, target level 200 mg/dL HDL cholesterol, serum, target level 35 mg/dL Encounters Code Encounter Date Provider Facility CPT-31761 Level 3 Est. Patient 17:11:55 GERIATRIC PHYSICIAN Ismael Gracia MD [facility] CPT-74993 Level 4 Est. Patient 16:29:19 CDT Mekhi Dukes MD [facility] CPT-65131 Level 3 New Patient 17:05:24 CDT Ismael Gracia MD [facility] CPT-71439 Level 2 Est. Patient 15:43:17 CDT Mekhi Dukes MD [facility] CPT-68113 Level 3 Est. Patient 09:30:37 CDT [facility] CPT-13055 Level 3 Est. Patient 10:00:14 CDT Mekhi Dukes MD [facility] CPT-24732 Level 3 Est. Patient 12:24:09 CDT [facility] CPT-77670 Level 3 Est. Patient 14:34:57 CDT Prosper Arenas MD [facility] CPT-24038 Level 3 New Patient 15:44:53 GERIATRIC PHYSICIAN Mekhi Dukes MD [facility] CPT-72850 Level 3 Est. Patient 14:53:34 GERIATRIC PHYSICIAN Prosper Arenas MD [facility] CPT-89272 Level 4 Est. Patient 10:05:41 GERIATRIC PHYSICIAN [facility] RodrigoRUST CPT-72602 Level 3 Est. Patient 11:18:32 CDT [facility] CPT-46821 Level 4 Est. Patient 11:05:10 CDT [facility] CPT-44902 Level 3 Est. Patient 11:08:27 GERIATRIC PHYSICIAN Moy Garcia [facility] CPT-34492 Level 4 Est. Patient 10:43:59 CDT Prosper Arenas MD [facility] CPT-53708 Level 3 Est. Patient 10:51:19 CDT Moy Garcia [facility] CPT-80730 Level 3 Est. Patient 10:20:31 CDT Moy Garcia [facility] CPT-81344 Level 3 Est. [facility]08[facility] CPT-19153 Level 2 Est. Patient 13:54:36 CDT Augustina Mata APRN [facility] CPT-73633 Level 3 Est. Patient 12:00:42 CDT Prosper Arenas MD [facility] CPT-64068 Level 3 Est. Patient 09:57:28 GERIATRIC PHYSICIAN Moy Garcia [facility] CPT-47701 Level 3 Est. Patient 11:41:19 GERIATRIC PHYSICIAN Luxshoaib Garcia [facility] CPT-54539 Level 4 Est. Patient 17:07:35 GERIATRIC PHYSICIAN Moy Garcia [facility] CPT-74846 Level 5 Est. Patient 14:33:32 CDT Moy Garcia [facility] CPT-89839 Level 3 Est. Patient 12:25:35 CDT Prosper Arenas MD [facility] Procedures Code Procedure Name Date Entry Date Standard Description CPT-30838 Postop F/U Visit 17:20:20 GERIATRIC PHYSICIAN CPT-G0439 [facility] Annual Wellness Exam 08:39:41 GERIATRIC PHYSICIAN CPT-000 Give Appropriate Flu Vaccine 10:13:55 GERIATRIC PHYSICIAN CPT-000 Give Immunizations Due 10:13:55 GERIATRIC PHYSICIAN CPT-45445 HGBA1C - LAB USE ONLY 09:42:47 GERIATRIC PHYSICIAN CPT-59846 TPSA - LAB USE ONLY 09:42:46 GERIATRIC PHYSICIAN CPT-78942 Venipuncture Draw Fee 09:42:46 GERIATRIC PHYSICIAN CPT-44652 Port a cath flush 13:33:18 GERIATRIC PHYSICIAN CPT-73545 First Vx - Ix admin for Medicare patients 10:42:57 GERIATRIC PHYSICIAN CPT-90125 Fluzone Preservative Free Intramuscular Suspension 10:42 :57 GERIATRIC PHYSICIAN CPT-G0438 Initial Annual Wellness Exam 10:13:55 GERIATRIC PHYSICIAN CPT-000 Give Appropriate Flu Vaccine 10:44:04 CDT CPT-000 Give Pneumovax 10:44:03 CDT CPT-16850 Port a cath flush 17:04:43 CDT CPT-85137 Prevnar 13 11:19:17 CDT CPT-57822 Fluzone Quadrivalent preservative free (>=3yrs.) 11:19: 17 CDT CPT-94221 Immunization Each Additional Inj 11:19:17 CDT CPT-02823 Immunization Single Admin 11:19:17 CDT CPT-16359 Port a cath flush 13:28:22 CDT CPT-TCMM Transitional Care Mgmt-Moderate 13:40:15 CDT CPT-G0008 Administration of Influenza Virus Vaccine 13:59:20 CDT CPT-03433 Fluzone High-Dose Intramuscular Suspension 13:59:20 CDT CPT-42601 Venipuncture Draw Fee 09:56:19 CDT CPT-OV Office Visit 15:46:10 CDT
--- OUTSIDE RECORDS SUMMARY | 2017-08-25 20:50 | XMS REPORT ---
Author Author [facility] [facility] Medical Staff Organization [facility] Address [address] [place], [place] [id number] Phone [phone] Care Team Providers Care Chemical Applicator Name Role Phone YOMI RAMESH MD PP [phone] Summary purpose TRANSITION OF CARE AUTO GENERATION Chief Complaint and Reason for Visit No authorized Reason for Visit (Admitting Diagnosis) is available for this visit. Problem list No authorized problems tracked for continuity of care are available for this visit. Encounters No authorized problems tracked for encounter diagnoses are available for this visit. Medications No medications recorded for this patient visit Allergies, adverse reactions, alerts Allergen Category Ingredient Status Reaction Severity Onset Levaquin Drug Allergy Levaquin Confirmed or Verified Levaquin Drug Allergy Levofloxacin Confirmed or Verified codeine Drug Allergy codeine Confirmed or Verified Unknown Mild Propoxyphene Drug Allergy Propoxyphene Confirmed or Verified Erythromycin Base Drug Allergy Erythromycin Base Confirmed or Verified Biaxin Drug Allergy Biaxin Confirmed or Verified Biaxin Drug Allergy clarithromycin Confirmed or Verified niacin Drug Allergy niacin Confirmed or Verified Darvocet-N 100 Drug Allergy Darvocet-N 100 Confirmed or Verified Darvocet-N 100 Drug Allergy propoxyphene Confirmed or Verified Darvocet-N 100 Drug Allergy acetaminophen Confirmed but Inactive No known food allergies No known food allergies No known food allergies Confirmed or Verified Immunizations No immunizations recorded for this patient visit Relevant diagnostic tests and/or laboratory data RESULTS Chemistry [id number]:25:00 Result Normal Range Units Sodium 139 134-145 mEq/l Potassium L 3.4 3.5-5.1 mEq/l Chloride 101 98-107 mEq/l CO2 26.9 22-28 mEq/l Glucose H 205 70-105 mg/dl BUN 14 7-18 mg/dl Creatinine H 1.92 0.6-1.3 mg/dl Calcium L 8.1 8.4-10.2 mg/dl TP - Total Protein 7.4 6.0-8.3 g/dl Albumin L 3.1 3.5-5 g/dl Bilirubin - Total 0.2 0.1-1.0 mg/dl AST H 93 10-42 IU/L ALT H 116 12-65 IU/L ALP H 116 39-107 IU/L Osmolality 283.9 280-300 mOsm/L Albumin/Globulin Ratio 0.7 0-8 Anion GAP 11.1 8-16 BUN/Creatinine Ratio L 7.3 10-20 Estimated GFR L 43 >=60 mL/min/1.7 Hematology [id number]:25:00 Result Normal Range Units WBC 5.1 4.8-10.8 103/uL RBC L 4.6 4.7-6.1 106/uL HGB 14.7 13.0-18.0 g/dl HCT L 40.6 41.9-52.0 % MCV 87.9 80-94 FL MCH H 31.8 27-31 pg MCHC 36.2 33-37 g/dl RDW 14.0 11.5-15.5 % PLT 190 130-400 103/uL MPV H 10.5 7.3-10.4 FL Segs L 31.0 40-70 % Lymphs H 51.0 20-40 % [place] H 15.0 0-10 % Eos 1.0 0-7 % Atypical Lymphs 2.0 0-5 % Radiology Results :25:00 Result Normal Range Units MPV H 10.5 7.3-10.4 FL History of procedures No procedures recorded for this patient visit. Functional status No functional or cognitive status observations are available for this visit. Vital signs No authorized vital signs are available for this visit. Social history No Social History or smoking status observations were recorded for this visit. ( Unknown if ever smoked.) Treatment Plan No treatment plan text is available for this visit. Hospital discharge instructions No discharge instruction text is available for this visit.
--- OUTSIDE RECORDS SUMMARY | 2017-08-25 20:50 | XMS REPORT ---
Author Author [facility] Medical Staff Organization [facility] 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 Excess production of free kappa or lambda light chains alters the ratio. Ratios outside the normal range are attributed to the presence of monoclonal free light chains. Monoclonal free light chains are found in the serum of patients with multiple myeloma, Waldenstrom's macroglobulinemia, mu-heavy chain disease, primary amyloidosis, light chain deposition disease, monoclonal gammopathy of undetermined significance, andlymphoproliferative disorders. Measurement of free light chain concentration in serum is useful for diagnosis, prognosis,monitoring disease activity and following response to therapy of these disorders. TEST PERFORMED AT: [facility] [place] [address] [place] [address] QUIANA ISSA DO,MPH History of procedures Procedure Code Code Type Description Date Performed Performing Physician [id number] CPT-4 ASSAY, NEPHELOMETRY NOT SPEC 2014 HENRIK RIGGINS 97455 CPT-4 DRAW BLOOD OFF VENOUS DEVICE 2014 HENRIK RIGGINS [id number] CPT-4 INJ HEPARIN SODIUM PER 10 U 2014 HENRIK RIGGINS Functional status No functional or cognitive status [...]
--- OUTSIDE RECORDS SUMMARY | 2017-08-25 20:50 | XMS REPORT | Clinical Summary ---
Author Author Admin, [place] Organization [employer] Address Unknown Phone Unavailable Allergies, Adverse Reactions, Alerts Allergy Name Reaction Description Start Date Severity Status Provider ERYTHROMYCIN Stomach cramps Moderate Active Prosper Arenas MD CODEINE Critical Active Maliheh Ziglari AUTOMATIC SCREWMAKER DARVOCET Critical Active Maliheh Ziglari AUTOMATIC SCREWMAKER LEVAQUIN Critical Active Maliheh Ziglari AUTOMATIC SCREWMAKER Conditions or Problems Problem Name Problem Code [...] Dukes MD Syncope and collapse Hypokalemia 276.8 Active Prosper Arenas MD Hypopotassemia Diabetes mellitus, type II, uncontrolled 250.02 Active Maliheh Ziglari AUTOMATIC SCREWMAKER Diabetes mellitus 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, type [...] with hyperglycemia 250.00 Active 03/21 Maliheh Ziglari AUTOMATIC SCREWMAKER Diabetes mellitus 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, type II or unspecified type, not stated as uncontrolled longterm use of insulin treatment V58.67 Active Maliheh Ziglari AUTOMATIC SCREWMAKER Long-term (current) use of insulin Diabetes mellitus, type II with hypoglycemia 250.80 Active 07/22 Maliheh Ziglari AUTOMATIC SCREWMAKER Diabetes mellitus with other specified manifestations, type II or unspecified type, not stated as uncontrolled 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 Maliheh Ziglari AUTOMATIC SCREWMAKER Diabetes mellitus with renal manifestations, type II or unspecified type, not stated as uncontrolled Wellness exam V70.0 Active Dee Palmer APRN Routine general medical examination at a health care facility Fitting and adjustment of vascular catheter V58.81 Active 02/06 Dee Palmer APRN Encounter for fitting and adjustment of vascular catheter Unawareness of hypoglycemia in diabetes mellitus, type II 250.80 Active Maliheh Ziglari AUTOMATIC SCREWMAKER Diabetes mellitus with other specified manifestations, type II or unspecified type, not stated as uncontrolled Groin pain, right 789.09 Active Prosper Arenas MD Abdominal pain, other specified site; multiple sites Obesity 278.00 Active Prosper Arenas MD Obesity , unspecified Cough 786.2 Active Prosper Arenas MD Cough Headache 784.0 Active Prosper Arenas MD Headache Abdominal pain, right upper quadrant ICD-789.01 Inactive Mekhi Dukes MD Syncope and collapse ICD-780.2 Inactive Mekhi Dukes MD Chest pain, atypical ICD-786.59 Inactive Mekhi Dukes MD Bronchitis ICD-490 Inactive Mekhi Dukes MD Cough ICD-786.2 Inactive Mekhi Dukes MD Vertigo ICD-780.4 Inactive Mekhi Dukes MD Medication List Medication Instructions Start Date Stop Date Generic Name NDC Status Provider Patient Instruction BENZONATATE 200 MG CAPS Take 1 tablet 3 times a day as needed for cough 07/29 BENZONATATE 23479451484 Active Prosper Arenas MD Active PREDNISONE 20 MG TABS Take 2 daily for 3 days and then 1 daily for 3 days PREDNISONE 10228554589 Active Prosper Arenas MD Active HYDROCHLOROTHIAZIDE 25 MG TABS 1 tablet by mouth daily HYDROCHLOROTHIAZIDE 59320297316 No Longer Active Prosper Arenas MD Active ACCU-CHEK JOANNA PLUS STRP check blood sugars 5x a day, before each meal and bedtime and 15 minutes after treating a low blood. sugar GLUCOSE BLOOD 53234450733 Active Maliheh Ziglari AUTOMATIC SCREWMAKER Active NOVOLOG FLEXPEN 100 UNIT/ML SOPN Take 25 units with each meal, add 1u/50 for blood sugars above 150. INSULIN ASPART 56206010898 Active Maliheh Ziglari AUTOMATIC SCREWMAKER Active LANTUS SOLOSTAR 100 UNIT/ML SOLN Take 40 units at 7-8pm daily INSULIN GLARGINE 22761483266 Active [facility] Ziglari AUTOMATIC SCREWMAKER Active MECLIZINE HCL 25 MG TABS 1 daily needed for dizziness MECLIZINE HCL 48784178117 No Longer Active [facility] Ziglari AUTOMATIC SCREWMAKER Active BENZONATATE 200 MG CAPS 1 tab, 2-3 times a day BENZONATATE 85710644286 No Longer Active [facility] Ziglari AUTOMATIC SCREWMAKER Active HALOPERIDOL 0.5 MG TABS one tablet three times a day HALOPERIDOL 10878226163 No Longer Active [facility] Ziglari AUTOMATIC SCREWMAKER Active TRAZODONE HCL 50 MG TAB three tablets at bed time TRAZODONE HCL 39105060775 No Longer Active [facility] Ziglari AUTOMATIC SCREWMAKER Active REVLIMID 25 MG CAPS one capsule daily for 21 days then off for 7 days 2014 LENALIDOMIDE 18738565873 No Longer Active [facility] Ziglari AUTOMATIC SCREWMAKER Active ZITHROMAX Z-EDDIE 250 MG TABS 2 today, then 1 daily for 4 days 2014 AZITHROMYCIN 79603912324 No Longer Active Augustina Mata EVENT PRODUCER Active NOVOLIN R RELION 100 UNIT/ML INJ SOLN 30- 40 units each meal sliding scale INSULIN REGULAR HUMAN 43994784202 No [facility] Active LISINOPRIL 5 MG TABS 1 daily LISINOPRIL 75016553727 Active Prosper Arenas MD Active CALCIUM 500/D 500-200 MG-UNIT TABS one tablet daily CALCIUM CARBONATE- VITAMIN D 61614750447 Active Prosper Arenas MD Active HYDROCODONE-ACETAMINOPHEN 5-500 MG TABS 1-2 FOUR TIMES A DAY, PRN HYDROCODONE-ACETAMINOPHEN 88361577251 No Longer Active Prosper Arenas MD Active SIMVASTATIN 80 MG TABS 1/2 tablet daily SIMVASTATIN 57226487330 Active Prosper Arenas MD Active METOPROLOL TARTRATE 25 MG TABS 1/2 tablet twice a day METOPROLOL TARTRATE 53377510240 Active Prosper Arenas MD Active ASPIRIN 81 MG TAB 1 tablet by mouth daily ASPIRIN 14446641572 Active Prosper Arenas MD Active OMEPRAZOLE 20 MG CPDR 1 qd OMEPRAZOLE 36343913989 Active DARCIE Miller Active DOXYCYCLINE HYCLATE 100 MG CAPS take one capsule by mouth twice daily for ten days DOXYCYCLINE HYCLATE 39387425845 No Longer Active Mekhi Dkues MD Active DOXYCYCLINE HYCLATE 100 MG CAPS take one capsule by mouth twice daily for ten days DOXYCYCLINE HYCLATE 100 MG CAPS 0656963 DOXYCYCLINE HYCLATE Inactive HYDROCODONE-ACETAMINOPHEN 5-500 MG TABS [...] days 2014 ZITHROMAX Z-EDDIE 250 MG TABS 8238071 AZITHROMYCIN Inactive REVLIMID 25 MG CAPS one capsule daily for 21 days then off for 7 days 2014 REVLIMID 25 MG CAPS LENALIDOMIDE Inactive TRAZODONE HCL 50 MG TAB three tablets at bed time TRAZODONE HCL 50 MG TAB 169295 TRAZODONE HCL Inactive HALOPERIDOL 0.5 MG TABS one tablet three times a day HALOPERIDOL 0.5 MG TABS 562524 HALOPERIDOL Inactive BENZONATATE 200 MG CAPS 1 tab, 2-3 times a day BENZONATATE 200 MG CAPS 894677 BENZONATATE Inactive MECLIZINE HCL 25 MG TABS 1 daily needed for dizziness MECLIZINE HCL 25 MG TABS 004285 MECLIZINE HCL Inactive HYDROCHLOROTHIAZIDE 25 MG TABS 1 tablet by mouth daily HYDROCHLOROTHIAZIDE 25 MG TABS 558507 HYDROCHLOROTHIAZIDE Inactive Immunizations Vaccine Administration Date Value Standard Description influenza immunization (Flu Vax) has been administered 02/07/2016 influenza virus vaccine, unspecified formulation pneumococcal immunization administered 01/19/2015 pneumococcal polysaccharide vaccine, 23 valent influenza immunization (Flu Vax) has been administered 01/19/2015 influenza virus vaccine, unspecified formulation influenza immunization (Flu Vax) has been administered 01/09/2014 influenza virus vaccine, unspecified formulation Vital Signs Date Name Value Unit Range Description blood pressure, diastolic - 8462-4 80 mm[Hg] BP chavez blood pressure, systolic - 8480-6 128 mm[Hg] BP sys height E&M - 8302-2 65.5 [in_us] Bdy height weight E&M - 3141-9 195.2 [lb_av] Weight Measured blood pressure, diastolic - 8462-4 74 mm[Hg] BP chavez blood pressure, systolic - 8480-6 126 mm[Hg] BP sys pulse rate E&M - 8867-4 82 /min Heart rate temperature E&M 95.8 [degF] Body temperature weight E&M - 3141-9 197 [lb_av] Weight Measured blood pressure, diastolic - 8462-4 78 mm[Hg] BP chavez blood pressure, systolic - 8480-6 124 mm[Hg] BP sys pulse rate E&M - 8867-4 84 /min Heart rate temperature E&M 98.1 [degF] Body temperature weight E&M - 3141-9 196 [lb_av] Weight Measured blood pressure, diastolic - 8462-4 60 mm[Hg] BP chavez blood pressure, systolic - 8480-6 120 mm[Hg] BP sys height E&M - 8302-2 66 [in_us] Bdy height pulse rate E&M - 8867-4 72 /min Heart rate weight E&M - 3141-9 196 [lb_av] Weight Measured blood pressure, diastolic - 8462-4 70 mm[Hg] BP chavez blood pressure, systolic - 8480-6 113 mm[Hg] BP sys height E&M - 8302-2 66 [in_us] Bdy height pulse rate E&M - 8867-4 77 /min Heart rate temperature E&M 97.8 [degF] Body temperature weight E&M - 3141-9 194 [lb_av] Weight Measured blood pressure, diastolic - 8462-4 70 mm[Hg] BP chavez blood pressure, systolic - 8480-6 118 mm[Hg] BP sys pulse rate E&M - 8867-4 84 /min Heart rate weight E&M - 3141-9 192 [lb_av] Weight Measured Diagnostic Results Date Name Value Unit Range Description Lab Report: HGBA1C - Chemistry hemoglobin A1C, blood, as % of total hemoglobin 7.7 % 4.3-6.0 Lab Report: LIPID PANEL- REPOWER LAB - Chemistry cholesterol, serum 156 mg/dL 816-524 2540/02/20 HDL cholesterol, serum 52 mg/dL > OR=40 triglyceride, serum, fasting 112 mg/dL <150 LDL cholesterol, serum 82 MG/DL (CALC) mg/dL <130 cholesterol/HDL ratio, serum 3.0 (calc) < OR=5.0 Lab Report: Prostatic Specific Ag - Chemistry prostate specific antigen 0.75 ng/mL 0.00-4.00 Office Visit: Diabetes Visit - Basic LDL target level 100 mg/dL LDL target level 100 mg/dL Office Visit: Diabetes Visit - Chemistry cholesterol, target level 200 mg/dL triglyceride, target level 200 mg/dL HDL cholesterol, serum, target level 35 mg/dL cholesterol, target level 200 mg/dL triglyceride, target level 200 mg/dL HDL cholesterol, serum, target level 35 mg/dL Encounters Code Encounter Date Provider Facility CPT-25293 Level 3 Est. Patient 14:34:57 CDT Prosper Arenas MD [facility] CPT-25152 Level 3 New Patient 15:44:53 [employer]REWORKS ASSEMBLER Mekhi Dukes MD [facility] CPT-26973 Level 3 Est. Patient 14:53:34 FIREWORKS ASSEMBLER Prosper Arenas MD [facility] CPT-35839 Level 4 Est. Patient 10:05:41 FIREWORKS ASSEMBLER Moy Jose [facility] CPT-41788 Level 3 Est. Patient 11:18:32 CDT [facility] CPT-02144 Level 4 Est. Patient 11:05:10 CDT [facility] CPT-82793 Level 3 Est. Patient 11:08:27 [employer] [facility] Level 4 Est. Patient 10:43:59 CDT Prosper Arenas MD [facility] CPT-27175 Level 3 Est. [facility] 10:51:19 [facility] Level 3 Est. Patient 10:20:31 CDT [facility]PT[facility]77564 Level 3 Est. Patient 17:08:45 CDT [facility] CPT-84072 Level 2 Est. Patient 13:54:36 CDT Augustina Mata APRN [facility] CPT-36182 Level 3 Est. Patient 12:00:42 CDT Prosper Arenas MD [facility] CPT-64932 Level 3 Est. Patient 09:57:28 FIREWORKS ASSEMBLER [facility]car[facility]oaib Jose [facility] CPT-23701 Level 3 Est. Patient 11:41:19 FIREWORKS ASSEMBLER [facility] CPT-26201 Level 4 Est. Patient 17:07:35 FIREWORKS ASSEMBLER [facility] CPT-83936 Level 5 Est. Patient 14:33:32 [facility] CPT-20067 Level 3 Est. Patient 12:25:35 CDT Prosper Arenas MD [facility] Procedures Code Procedure Name Date Entry Date Standard Description CPT-000 Give Appropriate Flu Vaccine 10:13:55 FIREWORKS ASSEMBLER CPT-000 Give Immunizations Due 10:13:55 FIREWORKS ASSEMBLER CPT-45493 HGBA1C - LAB USE ONLY 09:42:47 FIREWORKS ASSEMBLER CPT-14814 TPSA - LAB USE ONLY 09:42:46 FIREWORKS ASSEMBLER CPT-86963 Venipuncture Draw Fee 09:42:46 FIREWORKS ASSEMBLER CPT-67423 Port a cath flush 13:33:18 FIREWORKS ASSEMBLER CPT-14843 First Vx - Ix admin for Medicare patients 10:42:57 FIREWORKS ASSEMBLER CPT-88119 Fluzone Preservative Free Intramuscular Suspension 10:42 :57 FIREWORKS ASSEMBLER CPT-G0438 Initial Annual Wellness Exam 10:13:55 FIREWORKS ASSEMBLER CPT-000 Give Appropriate Flu Vaccine 10:44:04 CDT CPT-000 Give Pneumovax 10:44:03 CDT CPT-65412 Port a cath flush 17:04:43 CDT CPT-65120 Prevnar 13 11:19:17 CDT CPT-21145 Fluzone Quadrivalent preservative free (>=3yrs.) 11:19: 17 CDT CPT-57711 Immunization Each Additional Inj 11:19:17 CDT CPT-52784 Immunization Single Admin 11:19:17 CDT CPT-56729 Port a cath flush 13:28:22 CDT CPT-TCMM Transitional Care Mgmt-Moderate 13:40:15 CDT CPT-G0008 Administration of Influenza Virus Vaccine 13:59:20 CDT CPT-22556 Fluzone High-Dose Intramuscular Suspension 13:59:20 CDT CPT-89011 Venipuncture Draw Fee 09:56:19 CDT CPT-OV Office Visit 15:46:10 CDT
--- OUTSIDE RECORDS SUMMARY | 2017-08-25 20:51 | XMS REPORT | Clinical Summary ---
Author Author Admin, [place] Organization [email or web address] Address Unknown Phone Unavailable Allergies, Adverse Reactions, Alerts Allergy Name Reaction Description Start Date Severity Status Provider ERYTHROMYCIN Stomach cramps Moderate Active Prosper Arenas MD CODEINE Critical Active Maliheh Ziglari ENGINEERING DESIGNER DARVOCET Critical Active Maliheh Ziglari ENGINEERING DESIGNER LEVAQUIN Critical Active Maliheh Ziglari ENGINEERING DESIGNER Conditions or Problems Problem Name Problem Code Onset Date Status Entry Date Provider Comment Standard Description Annotate Diabetes, Type 2 250.00 Resolved Tami Miller golf course architect mellitus 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, type II [...] type II, uncontrolled 250.02 Active Maliheh Rodrigoglari ENGINEERING DESIGNER Diabetes mellitus 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, type [...] giddiness Preventive health care V70.0 Active Betsy Ronine Routine general medical examination at a health care facility Encounter for fitting and adjustment of vascular catheter V58.81 Resolved Tami Miller RN Encounter for fitting and adjustment of vascular catheter Type 2 diabetes mellitus with hyperglycemia 250.00 Active 03/21 Maliheh Ziglari ENGINEERING DESIGNER Diabetes mellitus 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, type II or unspecified type, not stated as uncontrolled snf use of insulin treatment V58.67 Active Luxiheh Rodrigoglari ENGINEERING DESIGNER Long-term (current) use of insulin Diabetes mellitus, type II with hypoglycemia 250.80 Active 07/22 Maliheh Ziglari ENGINEERING DESIGNER Diabetes mellitus with other specified manifestations, type II or unspecified type, not stated as uncontrolled 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 Maliheh Ziglari ENGINEERING DESIGNER Diabetes mellitus with renal manifestations, type II or unspecified type, not stated as uncontrolled Wellness exam V70.0 Active Dee Palmer APRN Routine general medical examination at a health care facility Fitting and adjustment of vascular catheter V58.81 Active 02/06 Dee Palmer APRN Encounter for fitting and adjustment of vascular catheter Unawareness of hypoglycemia in diabetes mellitus, type II 250.80 Active Maliheh Rodrigoglari ENGINEERING DESIGNER Diabetes mellitus with other specified manifestations, type II or unspecified type, not stated as uncontrolled Groin pain, right 789.09 Resolved Mekhi Dukes MD Abdominal pain, other specified site; multiple sites Obesity 278.00 Inactive Prosper Arenas MD Obesity, unspecified Obesity (BMI=30-39.9) 278.00 Active Karrie Lawson APRN Obesity, unspecified Cough 786.2 Resolved Taim Miller RN Cough Headache 784.0 Resolved Tami Miller RN Headache Inguinal pain, right 789.09 Resolved Mekhi Dukes MD Abdominal pain, other specified site; multiple sites Erectile Dysfunction Active Ismael Gracia MD Psychosexual dysfunction, hypoactive sexual desire disorder Hepatitis C, acute 070.51 Active Karrie Lawson APRN Acute hepatitis C 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 hepatic coma Inguinal hernia 550.90 Resolved Mekhi Dukes MD Unilateral or unspecified inguinal hernia, 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 obstruction or gangrene (not specified as recurrent) Gastritis Inactive Maliheh Jose ENGINEERING DESIGNER Unspecified gastritis and gastroduodenitis, 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 hemorrhage Cough 786.2 Active Dee Palmer APRN Cough Diabetes, Type 2 ICD-250.00 Inactive Mekhi Dukes [...] vascular catheter ICD-V58.81 Inactive Mekhi Dukes MD Groin pain, right ICD-789.09 Inactive Mekhi Dukes MD Cough ICD-786.2 Inactive Mekhi Dukes MD Headache ICD-784.0 Inactive Mekhi Dukes MD Inguinal pain, right ICD-789.09 Inactive Mekhi Dukes MD Inguinal hernia ICD-550.90 Inactive Mekhi Dkues MD Gastritis Inactive Janis Gallagher LPN Medication List Medication Instructions Start Date Stop Date Generic Name NDC Status Provider Patient Instruction GUAIFENESIN DM 400-20 MG ORAL TABLET 1 pill by mouth twice daily, if needed for cough DEXTROMETHORPHAN-GUAIFENESIN 09532507576 Active Dee Palmer APRN Active PREDNISONE 20 MG ORAL TABLET 2 tabs daily for 4 days, 1 tab daily for 4 days, 1/2 tab daily for 4 days PREDNISONE 01667233807 Active Dee Palmer APRN Active ASPIRIN 81 MG ORAL TABLET 1 po qd ASPIRIN 87222098161 Active Dee Palmer APRN Active CALCIUM 500/D 500-200 MG-UNIT ORAL TABLET one tablet daily CALCIUM CARBONATE-VITAMIN D 79614113930 No Longer Active Dee Palmer APRN Active HYDROCODONE-ACETAMINOPHEN 7.5-325 MG ORAL TABLET 1-2 every 4-6 hrs prn 02/25 HYDROCODONE-ACETAMINOPHEN 01760671621 Active Marina Messina APRN Active ASPIRIN 81 MG ORAL TABLET 1 tablet by mouth daily ASPIRIN 95572749312 No Longer Active Marina Messina APRN Active SIMVASTATIN 80 MG ORAL TABLET 1/2 tablet daily SIMVASTATIN 27028865002 No Longer Active Mekhi Dukes MD Active OMEPRAZOLE 20 MG ORAL CAPSULE DELAYED RELEASE 1 qd OMEPRAZOLE 76196183990 No Longer Active Mekhi Dukes MD Active METOPROLOL TARTRATE 25 MG ORAL TABLET 1/2 tablet twice a day METOPROLOL TARTRATE 23605698685 No Longer Active Mekhi Dukes MD Active LISINOPRIL 5 MG ORAL TABLET 1 daily LISINOPRIL 76449472601 No Longer Active Mekhi Dukes MD Active NOVOLOG FLEXPEN 100 UNIT/ML SUBCUTANEOUS SOLUTION PEN-INJECTOR Take 8 units with each meal, add 1u/50 for blood sugars above 150. INSULIN ASPART 96215862251 Active Moy PARISH Active GABAPENTIN 300 MG ORAL CAPSULE 1 tab BID GABAPENTIN 77961788762 Active Tami Miller RN Active PREDNISONE 20 MG ORAL TABLET Take 2 daily for 3 days and then 1 daily for 3 days PREDNISONE 68769182514 No Longer Active Moy Wallaceglari JEM Active BENZONATATE 200 MG ORAL CAPSULE Take 1 tablet 3 times a day as needed for cough BENZONATATE 93926893500 No Longer Active Prosper Arenas MD Active HYDROCHLOROTHIAZIDE 25 MG ORAL TABLET 1 tablet by mouth daily HYDROCHLOROTHIAZIDE 92147517857 No Longer Active Prosper Arenas MD Active ACCU-CHEK JOANNA PLUS IN VITRO STRIP check blood sugars 5x a day, before each meal and bedtime and 15 minutes after treating a low blood. sugar GLUCOSE BLOOD 91407254104 Active Moy Wallaceglrex DURANTP Active LANTUS SOLOSTAR 100 UNIT/ML SUBCUTANEOUS SOLUTION PEN-INJECTOR Take 40 units at 7-8pm daily INSULIN GLARGINE 15652218105 Active Moy Wallaceglrex ENGINEERING DESIGNER Active MECLIZINE HCL 25 MG ORAL TABLET 1 daily needed for dizziness 2015 MECLIZINE HCL 79721509000 No Longer Active Maliheh Ziglari ENGINEERING DESIGNER Active BENZONATATE 200 MG ORAL CAPSULE 1 tab, 2-3 times a day BENZONATATE 83059034694 No Longer Active Maleh Ziglari ENGINEERING DESIGNER Active HALOPERIDOL 0.5 MG ORAL TABLET one tablet three times a day HALOPERIDOL 43147982576 No Longer Active Maleh Ziglari ENGINEERING DESIGNER Active TRAZODONE HCL 50 MG ORAL TABLET three tablets at bed time TRAZODONE HCL 91156141025 No Longer [facility] ENGINEERING DESIGNER Active REVLIMID 25 MG ORAL CAPSULE one capsule daily for 21 days then off for 7 days LENALIDOMIDE 40379173327 No Longer Active Maliheh Ziglari ENGINEERING DESIGNER Active ZITHROMAX Z-EDDIE 250 MG ORAL TABLET 2 today, then 1 daily for 4 days AZITHROMYCIN 74068096886 No Longer Active Augustina Mata APRN Active NOVOLIN R RELION 100 UNIT/ML INJECTION SOLUTION 30- 40 units each meal sliding scale INSULIN REGULAR HUMAN 53769142766 No Longer Active Maleh Ziglari ENGINEERING DESIGNER Active HYDROCODONE-ACETAMINOPHEN 5-500 MG ORAL TABLET 1-2 FOUR TIMES A DAY, PRN 2010 HYDROCODONE-ACETAMINOPHEN 91981120203 No Longer Active Prosper Arenas MD Active DOXYCYCLINE HYCLATE 100 MG ORAL CAPSULE take one capsule by mouth twice daily for ten days DOXYCYCLINE HYCLATE 54879875839 No Longer Active Mekhi Dukes MD Active DOXYCYCLINE HYCLATE 100 MG ORAL CAPSULE take one capsule by mouth twice daily for ten days DOXYCYCLINE HYCLATE 100 MG ORAL CAPSULE 1632889 DOXYCYCLINE HYCLATE Inactive HYDROCODONE-ACETAMINOPHEN 5-500 MG ORAL TABLET 1-2 FOUR TIMES A DAY, PRN 2010 HYDROCODONE-ACETAMINOPHEN 5-500 MG ORAL TABLET 046335 HYDROCODONE-ACETAMINOPHEN Inactive NOVOLIN R RELION 100 UNIT/ML INJECTION SOLUTION 30- 40 units each meal sliding scale NOVOLIN R RELION 100 UNIT/ML INJECTION SOLUTION INSULIN REGULAR HUMAN Inactive ZITHROMAX Z-EDDIE 250 MG ORAL TABLET 2 today, then 1 daily for 4 days ZITHROMAX Z-EDDIE 250 MG ORAL TABLET 869941 AZITHROMYCIN Inactive REVLIMID 25 MG ORAL CAPSULE one capsule daily for 21 days then off for 7 days REVLIMID 25 MG ORAL CAPSULE LENALIDOMIDE Inactive TRAZODONE HCL 50 MG ORAL TABLET three tablets at bed time TRAZODONE HCL 50 MG ORAL TABLET 028238 TRAZODONE HCL Inactive HALOPERIDOL 0.5 MG ORAL TABLET one tablet three times a day HALOPERIDOL 0.5 MG ORAL TABLET 352121 HALOPERIDOL Inactive BENZONATATE 200 MG ORAL CAPSULE 1 tab, 2-3 times a day BENZONATATE 200 MG ORAL CAPSULE 185750 BENZONATATE Inactive MECLIZINE HCL 25 MG ORAL TABLET 1 daily needed for dizziness 2015 MECLIZINE HCL 25 MG ORAL TABLET 243749 MECLIZINE HCL Inactive HYDROCHLOROTHIAZIDE 25 MG ORAL TABLET 1 tablet by mouth daily HYDROCHLOROTHIAZIDE 25 MG ORAL TABLET 011408 HYDROCHLOROTHIAZIDE Inactive PREDNISONE 20 MG ORAL TABLET Take 2 daily for 3 days and then 1 daily for 3 days PREDNISONE 20 MG ORAL TABLET 321748 PREDNISONE Inactive LISINOPRIL 5 MG ORAL TABLET 1 daily LISINOPRIL 5 MG ORAL TABLET 878655 LISINOPRIL Inactive METOPROLOL TARTRATE 25 MG ORAL TABLET 1/2 tablet twice a day METOPROLOL TARTRATE 25 MG ORAL TABLET 094870 METOPROLOL TARTRATE Inactive OMEPRAZOLE 20 MG ORAL CAPSULE DELAYED RELEASE 1 qd OMEPRAZOLE 20 MG ORAL CAPSULE DELAYED RELEASE 001877 OMEPRAZOLE Inactive SIMVASTATIN 80 MG ORAL TABLET 1/2 tablet daily SIMVASTATIN 80 MG ORAL TABLET 590402 SIMVASTATIN Inactive ASPIRIN 81 MG ORAL TABLET 1 tablet by mouth daily ASPIRIN 81 MG ORAL TABLET 389853 ASPIRIN Inactive CALCIUM 500/D 500-200 MG-UNIT ORAL TABLET one tablet daily CALCIUM 500/D 500-200 MG-UNIT ORAL TABLET CALCIUM CARBONATE-VITAMIN D Inactive BENZONATATE 200 MG ORAL CAPSULE Take 1 tablet 3 times a day as needed for cough BENZONATATE 200 MG ORAL CAPSULE 366475 BENZONATATE Inactive Immunizations Vaccine Administration Date Value Standard Description influenza immunization (Flu Vax) has been administered 12/12/2016 influenza virus vaccine, unspecified formulation influenza immunization [...] Value Unit Range Description blood pressure, diastolic 74 mm[Hg] BP chavez blood pressure, systolic 142 mm[Hg] BP sys height E&M 65.5 [in_us] Bdy height pulse rate E&M 83 /min Heart rate temperature E&M 97.2 [degF] Body temperature weight E&M 178.31 [lb_av] Weight Measured pulse rate E&M 99 /min Heart rate temperature E&M 96.3 [degF] Body temperature weight E&M 179 [lb_av] Weight Measured blood pressure, diastolic 80 mm[Hg] BP chavez blood pressure, systolic 120 mm[Hg] BP sys height E&M 65.5 [in_us] Bdy height pulse rate E&M 84 /min Heart rate weight E&M 178 [lb_av] Weight Measured blood pressure, diastolic 61 mm[Hg] BP chavez [...] height weight E&M 195.2 [lb_av] Weight Measured Diagnostic Results Date Name Value Unit Range Description Chart Maintenance: outside lab added to flowsheet - Urinalysis microalbumin/total urine volume 5 mg/L Lab Report: Comp. Metabolic Panel, CBC W/DIFF - Chemistry sodium, serum 137 mmol/L 108-989 3887/08/16 carbon dioxide, venous blood 26.3 mmol/L 21.0-32.0 [...] 4.3-6.0 Lab Report: Lipid Panel, Glucose- [facility] - Chemistry cholesterol, serum 115 mg/dL 274-102 0316/08/18 triglyceride, serum, fasting 89 mg/dL 30-200 HDL cholesterol, serum 46 mg/dL 32-60 LDL cholesterol, serum 51 mg/dL 0-130 blood glucose 104 mg/dL 65-110 Lab Report: LIPID PANEL- [facility] - Chemistry cholesterol, serum 156 mg/dL 257-224 5350/02/20 HDL cholesterol, serum 52 mg/dL > OR=40 triglyceride, serum, fasting 112 mg/dL <150 LDL cholesterol, serum 82 MG/DL (CALC) mg/dL <130 cholesterol/HDL ratio, serum 3.0 (calc) < OR=5.0 Lab Report: SADA INFLUENZA A/B - Toxicology rapid flu test Negative Negative Office Visit: Diabetes Visit - Basic LDL [...] mg/dL Encounters Code Encounter Date Provider Facility CPT-76006 Level 3 Est. Patient 14:09:25 JAVA SQL DEVELOPER Dee Palmer APRN [facility] CPT-33106 Level 3 Est. Patient 10:53:32 JAVA SQL DEVELOPER Moy Garcia [facility] CPT-54913 Level 3 Est. Patient 17:11:55 JAVA SQL DEVELOPER Ismael Gracia MD [facility] CPT-47676 Level 4 Est. Patient 16:29:19 CDT Mekhi Dukes MD [facility] CPT-69681 Level 3 New Patient 17:05:24 CDT Ismael Gracia MD [facility] CPT-27548 Level 2 Est. Patient 15:43:17 CDT Mekhi Dukes MD [facility] CPT-53461 Level 3 Est. Patient 09:30:37 CDT Moy Garcia [facility] CPT-87336 Level 3 Est. Patient 10:00:14 CDT Mekhi Dukes MD [facility] CPT-20684 Level 3 Est. Patient 12:24:09 CDT Luxpapo Garcia [facility] CPT-24551 Level 3 Est. Patient 14:34:57 CDT Prosper Arenas MD [facility] CPT-38813 Level 3 New Patient 15:44:53 JAVA SQL DEVELOPER Mekhi Dukes MD [facility] CPT-68853 Level 3 Est. Patient 14:53:34 JAVA SQL DEVELOPER Prosper Arenas MD [facility] CPT-12408 Level 4 Est. Patient 10:05:41 JAVA SQL DEVELOPER Moy Garcia [facility] CPT-43904 Level 3 Est. Patient 11:18:32 CDT Moy Garcia [facility] CPT-15214 Level 4 Est. Patient 11:05:10 CDT Luxpapo Garcia [facility] CPT-19879 Level 3 Est. Patient 11:08:27 JAVA SQL DEVELOPER Moy Garcia [facility] [place] CPT-73791 Level 4 Est. Patient 10:43:59 CDT Prosper Arenas MD [facility] CPT-97505 Level 3 Est. Patient 10:51:19 CDT Moy Garcia [facility] [place] CPT-92195 Level 3 Est. Patient 10:20:31 CDT [facility] Level 3 Est. Patient 17:08:45 [facility] Level 2 Est. Patient 13:54:36 CDT Augustina Juan Carlostalagunnar DOHERYT [facility] CPT-67967 Level 3 Est. Patient 12:00:42 CDT Prosper Arenas MD [facility] CPT-44404 Level 3 Est. Patient 09:57:28 JAVA SQL DEVELOPER [facility] CPT-16557 Level 3 Est. Patient 11:41:19 JAVA SQL DEVELOPER [facility] CPT-64860 Level 4 Est. Patient 17:07:35 JAVA SQL DEVELOPER [facility] CPT-49450 Level 5 Est. Patient 14:33:32 CDT [facility] CPT-70462 Level 3 Est. Patient 12:25:35 CDT Prosper Arenas MD [facility] Procedures Code Procedure Name Date Entry Date Standard Description CPT-02156 Chest, 2 views 14:17:20 JAVA SQL DEVELOPER CPT-70629 Postop F/U Visit 14:44:45 JAVA SQL DEVELOPER CPT-16925 Postop F/U Visit 17:20:20 JAVA SQL DEVELOPER CPT-G0439 [facility] Annual Wellness Exam 08:39:41 JAVA SQL DEVELOPER CPT-000 Give Appropriate Flu Vaccine 10:13:55 JAVA SQL DEVELOPER CPT-000 Give Immunizations Due 10:13:55 JAVA SQL DEVELOPER CPT-74170 HGBA1C - LAB USE ONLY 09:42:47 JAVA SQL DEVELOPER CPT-26851 TPSA - LAB USE ONLY 09:42:46 JAVA SQL DEVELOPER CPT-55399 Venipuncture Draw Fee 09:42:46 JAVA SQL DEVELOPER CPT-87357 Port a cath flush 13:33:18 JAVA SQL DEVELOPER CPT-17427 First Vx - Ix admin for Medicare patients 10:42:57 JAVA SQL DEVELOPER CPT-49212 Fluzone Preservative Free Intramuscular Suspension 10:42 :57 JAVA SQL DEVELOPER CPT-G0438 Initial Annual Wellness Exam 10:13:55 JAVA SQL DEVELOPER CPT-000 Give Appropriate Flu Vaccine 10:44:04 CDT CPT-000 Give Pneumovax 10:44:03 CDT CPT-04411 Port a cath flush 17:04:43 CDT CPT-58551 Prevnar 13 11:19:17 CDT CPT-32225 Fluzone Quadrivalent preservative free (>=3yrs.) 11:19: 17 CDT CPT-82086 Immunization Each Additional Inj 11:19:17 CDT CPT-13734 Immunization Single Admin 11:19:17 CDT CPT-95660 Port a cath flush 13:28:22 CDT CPT-TCMM Transitional Care Mgmt-Moderate 13:40:15 CDT CPT-G0008 Administration of Influenza Virus Vaccine 13:59:20 CDT CPT-00611 Fluzone High-Dose Intramuscular Suspension 13:59:20 CDT CPT-39083 Venipuncture Draw Fee 09:56:19 CDT CPT-OV Office Visit 15:46:10 CDT
--- OUTSIDE RECORDS SUMMARY | 2017-08-25 20:51 | XMS REPORT | Clinical Summary ---
Author Author Admin, IWONA Organization [facility] Address Unknown Phone Unavailable Allergies, Adverse Reactions, Alerts Allergy Name Reaction Description Start Date Severity Status Provider ERYTHROMYCIN Stomach cramps Moderate Active Prosper Arenas MD CODEINE Critical Active Maliheh Ziglari LICENSED FINAL EXPENSE AGENTS DARVOCET Critical Active Maliheh Ziglari LICENSED FINAL EXPENSE AGENTS LEVAQUIN Critical Active Maliheh Ziglari LICENSED FINAL EXPENSE AGENTS Conditions or Problems Problem Name Problem Code [...] type II, uncontrolled 250.02 Active Maliheh Ziglari LICENSED FINAL EXPENSE AGENTS Diabetes mellitus 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, type [...] giddiness Preventive health care V70.0 Active Betsy Trujillo Routine general medical examination at a health care facility Encounter for fitting and adjustment of vascular catheter V58.81 Active Rogers Doty RN Encounter for fitting and adjustment of vascular catheter Type 2 diabetes mellitus with hyperglycemia 250.00 Active 03/21 Malpapo Wallaceglari LICENSED FINAL EXPENSE AGENTS Diabetes mellitus 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, type II or unspecified type, not stated as uncontrolled 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 INSULIN ASPART 81045855078 Active Maliheh Ziglari LICENSED FINAL EXPENSE AGENTS Active MECLIZINE HCL 25 MG TABS 1 daily needed for dizziness MECLIZINE HCL 27472440344 Active Prosper Arenas MD Active BENZONATATE 200 MG CAPS 1 tab, 2-3 times a day BENZONATATE 16641691485 No Longer Active Maliheh Ziglari LICENSED FIN[employer] EXPENSE AGENTS Active HALOPERIDOL 0.5 MG TABS one tablet three times a day HALOPERIDOL 76746448044 No Longer Active Maliheh Ziglari LICENSED FIN[employer] EXPENSE AGENTS Active TRAZODONE HCL 50 MG TAB three tablets at bed time TRAZODONE HCL 35608970217 No Longer Active [facility] Rodrigosania DURANTP Active REVLIMID 25 MG CAPS one capsule daily for 21 days then off for 7 days 2014 LENALIDOMIDE 98745547700 No Longer Active Moy Jose LICENSED FINAL EXPENSE AGENTS Active ACCU-CHEK JOANNA PLUS STRP check blood sugars 3x a day GLUCOSE BLOOD 59753733061 Active Luxshoaib Wallaceglari LICENSED FINAL EXPENSE AGENTS Active ZITHROMAX Z-EDDIE 250 MG TABS 2 today, then 1 daily for 4 days 2014 AZITHROMYCIN 42618831383 No Longer Active Augustina Mata ELEMENTARY TEACHER Active NOVOLIN R RELION 100 UNIT/ML INJ SOLN 30- 40 units each meal sliding scale INSULIN REGULAR HUMAN 41790137278 No Longer Active [facility] Active LISINOPRIL 5 MG TABS 1 daily LISINOPRIL 37864608024 Active Prosper Arenas MD Active CALCIUM 500/D 500-200 MG-UNIT TABS one tablet daily CALCIUM CARBONATE- VITAMIN D 96300930830 Active Prosper Arenas MD Active HYDROCHLOROTHIAZIDE 25 MG TABS 1 tablet by mouth daily HYDROCHLOROTHIAZIDE 93793118099 Active Prosper Arenas MD Active HYDROCODONE-ACETAMINOPHEN 5-500 MG TABS 1-2 FOUR TIMES A DAY, PRN HYDROCODONE-ACETAMINOPHEN 91107085883 No Longer Active Prosper Arenas MD Active SIMVASTATIN 80 MG TABS 1/2 tablet daily SIMVASTATIN 67881014676 Active Prosper Arenas MD Active METOPROLOL TARTRATE 25 MG TABS 1/2 tablet twice a day METOPROLOL TARTRATE 82058062237 Active Prosper Arenas MD Active ASPIRIN 81 MG TAB 1 tablet by mouth daily ASPIRIN 84198012565 Active Prosper Arenas MD Active OMEPRAZOLE 20 MG CPDR 1 qd OMEPRAZOLE 76678413597 Active DARCIE Miller Active DOXYCYCLINE HYCLATE 100 MG CAPS take one capsule by mouth twice daily for ten days DOXYCYCLINE HYCLATE 14350094761 No Longer Active Mekhi Dukes MD Active DOXYCYCLINE HYCLATE 100 MG CAPS take one capsule by mouth twice daily for ten days DOXYCYCLINE HYCLATE 100 MG CAPS 1846850 DOXYCYCLINE HYCLATE Inactive HYDROCODONE-ACETAMINOPHEN 5-500 MG TABS [...] days 2014 ZITHROMAX Z-EDDIE 250 MG TABS 0738945 AZITHROMYCIN Inactive REVLIMID 25 MG CAPS one capsule daily for 21 days then off for 7 days 2014 REVLIMID 25 MG CAPS LENALIDOMIDE Inactive TRAZODONE HCL 50 MG TAB three tablets at bed time TRAZODONE HCL 50 MG TAB 980609 TRAZODONE HCL Inactive HALOPERIDOL 0.5 MG TABS one tablet three times a day HALOPERIDOL 0.5 MG TABS 562422 HALOPERIDOL Inactive BENZONATATE 200 MG CAPS 1 tab, 2-3 times a day BENZONATATE 200 MG CAPS 679333 BENZONATATE Inactive Immunizations Vaccine Administration Date Value [...] BP chavez blood pressure, systolic - 8480-6 115 mm[Hg] BP sys pulse rate E&M - 8867-4 73 /min Heart rate temperature E&M 96.8 [degF] Body temperature weight E&M - 3141-9 185 [lb_av] Weight Measured blood pressure, diastolic - 8462-4 70 mm[Hg] BP chavez blood pressure, systolic - 8480-6 128 mm[Hg] BP sys pulse rate E&M - 8867-4 88 /min Heart rate weight E&M - 3141-9 185 [lb_av] Weight Measured blood pressure, diastolic - 8462-4 80 mm[Hg] BP chavez blood pressure, systolic - 8480-6 120 mm[Hg] BP sys pulse rate E&M - 8867-4 96 /min Heart rate weight E&M - 3141-9 183 [lb_av] Weight Measured blood pressure, diastolic - 8462-4 62 mm[Hg] BP chavez blood pressure, systolic - 8480-6 140 mm[Hg] BP sys pulse rate E&M - 8867-4 96 /min Heart rate weight E&M - 3141-9 179 [lb_av] Weight Measured blood pressure, diastolic - 8462-4 76 mm[Hg] BP chavez blood pressure, systolic - 8480-6 107 mm[Hg] BP sys pulse rate E&M - 8867-4 89 /min Heart rate temperature E&M 98.0 [degF] Body temperature weight E&M - 3141-9 177 [lb_av] Weight Measured blood pressure, diastolic - 8462-4 69 mm[Hg] BP chavez blood pressure, systolic - 8480-6 119 mm[Hg] BP sys pulse rate E&M - 8867-4 85 /min Heart rate temperature E&M 99.7 [degF] Body temperature weight E&M - 3141-9 182.6 [lb_av] Weight Measured blood pressure, diastolic - 8462-4 70 mm[Hg] BP chavez blood pressure, systolic - 8480-6 122 mm[Hg] BP sys pulse rate E&M - 8867-4 84 /min Heart rate weight E&M - 3141-9 179 [lb_av] Weight Measured Diagnostic Results Date Name Value Unit Range Description Chart Maintenance: Outside labs entered on [employer] - Chemistry sodium, serum 139 mmol/L potassium, serum 3.4 mmol/L blood glucose 205 mg/dL creatinine, serum 1.92 mg/dL aspartate aminotransferase (SGOT), serum 93 U/L alanine aminotransferase (SGPT), serum 116 U/L alkaline phosphatase, serum 116 U/L sodium, serum 141 mmol/L potassium, serum 3.8 mmol/L blood glucose 148 mg/dL creatinine, serum 1.80 mg/dL aspartate aminotransferase (SGOT), serum 106 U/L alanine aminotransferase (SGPT), serum 160 U/L alkaline phosphatase, serum 106 U/L Chart Maintenance: Outside labs entered on [employer] - Hematology leukocyte count, blood 5.1 10*3/mm3 hemoglobin, blood 14.7 g/dL platelet count 190 10*3/mm3 leukocyte count, blood 4.5 10*3/mm3 hemoglobin, blood 15.1 g/dL platelet count 158 10*3/mm3 Lab Report: Basic Metabolic Panel, HGBA1C - Chemistry sodium, serum 135 mmol/L 831-358 5359/09/17 potassium, serum 4.0 mmol/L 3.5-5.2 chloride, serum 98 mmol/L 98-107 carbon dioxide, venous blood 29.8 mmol/L 21.0-32.0 blood glucose 180 mg/dL 65-110 calcium, serum 8.7 mg/dL 8.5-10.1 urea nitrogen, blood 17 mg/dL 7-18 creatinine, serum 2.00 mg/dL 0.55-1.30 hemoglobin A1C, blood, as % of total hemoglobin 7.4 % 4.3-6.0 sodium, serum 134 mmol/L 798-431 6580/01/27 potassium, serum 4.1 mmol/L 3.5-5.2 chloride, serum 96 mmol/L 98-107 carbon dioxide, venous blood 35.1 mmol/L 21.0-32.0 blood glucose 346 mg/dL 65-110 calcium, serum 8.4 mg/dL 8.5-10.1 urea nitrogen, blood 18 mg/dL 7-18 creatinine, serum 2.00 mg/dL 0.60-1.30 hemoglobin A1C, blood, as % of total hemoglobin 8.4 % 4.3-6.0 Lab Report: CBC W/DIFF, Comp. Metabolic Panel - Chemistry sodium, serum 137 mmol/L 525-876 5486/01/21 potassium, serum 4.1 mmol/L 3.5-5.2 chloride, serum 99 mmol/L 98-107 carbon dioxide, venous blood 30.9 mmol/L 21.0-32.0 blood glucose 303 mg/dL 65-110 urea nitrogen, blood 19 mg/dL 7-18 creatinine, serum 2.00 mg/dL 0.60-1.30 alanine aminotransferase (SGPT), serum 84 U/L 12-78 aspartate aminotransferase (SGOT), serum 41 U/L 15-37 calcium, serum 7.8 mg/dL 8.5-10.1 bilirubin, serum, total 0.50 mg/dL 0.00-1.00 sodium, serum 131 mmol/L 325-923 1440/03/18 potassium, serum 4.4 mmol/L 3.5-5.2 chloride, serum 95 mmol/L 98-107 carbon dioxide, venous blood 19.0 mmol/L 21.0-32.0 blood glucose 297 mg/dL 65-110 urea nitrogen, blood 19 mg/dL 7-18 creatinine, serum 1.70 mg/dL 0.60-1.30 alanine aminotransferase (SGPT), serum 184 U/L 12-78 aspartate aminotransferase (SGOT), serum 177 U/L 15-37 calcium, serum 7.8 mg/dL 8.5-10.1 bilirubin, serum, total 0.50 mg/dL 0.00-1.00 Lab Report: CBC W/DIFF, Comp. Metabolic Panel - Hematology leukocyte count, blood 6.3 10^3/MM^3 10*3/mm3 4.6-10.2 neutrophils as percent of blood leukocytes 51.3 % 42.2-75.2 monocytes as percent of blood leukocytes 9.7 % 1.7-9.3 lymphocytes as percent of blood leukocytes 34.0 % 20.5-51.1 erythrocyte (RBC) count 5.30 10^6/MM^3 10*6/mm3 4.69-6.13 hemoglobin, blood 16.1 g/dL 13.5-17.5 hematocrit, blood 48.4 % 41.0-53.0 mean corpuscular volume, RBC 91 fL 80-97 mean corpuscular hemoglobin, RBC 30.4 pg 27.0-31.2 mean corpuscular hemoglobin concentration, RBC 33.3 G/DL % 31.8- 35.4 red blood cell distribution width 16.7 % 11.6-14.8 platelet count 137 10^3/MM^3 10*3/mm3 571-056 0277/03/18 leukocyte count, blood 4.8 10^3/MM^3 10*3/mm3 4.6-10.2 neutrophils as percent of blood leukocytes 32.5 % 42.2-75.2 monocytes as percent of blood leukocytes 13.2 % 1.7-9.3 lymphocytes as percent of blood leukocytes 51.4 % 20.5-51.1 erythrocyte (RBC) count 5.00 10^6/MM^3 10*6/mm3 4.69-6.13 hemoglobin, blood 16.1 g/dL 13.5-17.5 hematocrit, blood 47.0 % 41.0-53.0 mean corpuscular volume, RBC 94 fL 80-97 mean corpuscular hemoglobin, RBC 32.3 pg 27.0-31.2 mean corpuscular hemoglobin concentration, RBC 34.3 G/DL % 31.8- 35.4 red blood cell distribution width 17.5 % 11.6-14.8 platelet count 181 10^3/MM^3 10*3/mm3 142-424 Lab Report: CBC, Basic Metabolic Panel, HGBA1C - Chemistry sodium, serum 137 mmol/L 790-449 5322/10/23 potassium, serum 3.5 mmol/L 3.5-5.2 chloride, serum 100 mmol/L 98-107 carbon dioxide, venous blood 29.5 mmol/L 21.0-32.0 blood glucose 129 mg/dL 65-110 calcium, serum 8.8 mg/dL 8.5-10.1 urea nitrogen, blood 23 mg/dL 7-18 creatinine, serum 1.71 mg/dL 0.55-1.30 hemoglobin A1C, blood, as % of total hemoglobin 7.7 % 4.3-6.0 Lab Report: CBC, Basic Metabolic Panel, HGBA1C - Hematology leukocyte count, blood 9.0 10^3/MM^3 10*3/mm3 4.6-10.2 erythrocyte (RBC) count 4.73 10^6/MM^3 10*6/mm3 4.69-6.13 hemoglobin, blood 15.9 g/dL 13.5-17.5 hematocrit, blood 46.5 % 41.0-53.0 mean corpuscular volume, RBC 98 fL 80-97 mean corpuscular hemoglobin, RBC 33.6 pg 27.0-31.2 mean corpuscular hemoglobin concentration, RBC 34.2 G/DL % 31.8- 35.4 red blood cell distribution width 14.0 % 11.6-14.8 platelet count 184 10^3/MM^3 10*3/mm3 142-424 Lab Report: HGBA1C - Chemistry hemoglobin A1C, blood, as % of total hemoglobin 7.2 % 4.3-6.0 Lab Report: MICROALBUMIN - Chemistry albumin/creatinine ratio, urine < 30 mg/g mg/g{creat} 0-29 Lab Report: MICROALBUMIN - Lab microalbumin, urine 10 0-19 Office Visit: Diabetes Visit - Chemistry cholesterol, [...] mg/dL Encounters Code Encounter Date Provider Facility CPT-67637 Level 3 Est. Patient 11:08:27 [facility] CPT-[facility]77 Level 4 Est. Patient 10:43:59 CDT Prosper Arenas MD [facility] CPT-74819 Level 3 Est. Patient 10:51:19 CDT [facility] CPT-81295 Level 3 Est. Patient 10:20:31 CDT [facility] CPT-69137 Level 3 Est. Patient 17:08:45 CDT [facility] CPT-14951 Level 2 Est. Patient 13:54:36 CDT Augustina Mata APRN [facility] CPT-74989 Level 3 Est. Patient 12:00:42 CDT Prosper Arenas MD [facility] CPT-28073 Level 3 Est. 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 Patient 11:41:19 COMMERCIAL DESIGNER [facility] CPT-71140 Level 4 Est. Patient 17:07:35 COMMERCIAL DESIGNER [facility] CPT-58145 Level 5 Est. Patient 14:33:32 CDT [facility] CPT-64078 Level 3 Est. Patient 12:25:35 CDT Prosper Arenas MD [facility] Procedures Code Procedure Name Date Entry Date Standard Description CPT-38058 Port a cath flush 17:04:43 CDT CPT-64071 Prevnar 13 11:19:17 CDT CPT-44702 Fluzone Quadrivalent preservative free (>=3yrs.) 11:19: 17 CDT CPT-85754 Immunization Each Additional Inj 11:19:17 CDT CPT-27437 Immunization Single Admin 11:19:17 CDT CPT-51810 Port a cath flush 13:28:22 CDT CPT-TCMM Transitional Care Mgmt-Moderate 13:40:15 CDT CPT-G0008 Administration of Influenza Virus Vaccine 13:59:20 CDT CPT-87414 Fluzone High-Dose Intramuscular Suspension 13:59:20 CDT CPT-10727 Venipuncture Draw Fee 09:56:19 CDT CPT-OV Office Visit 15:46:10 CDT
--- OUTSIDE RECORDS SUMMARY | 2017-08-25 20:52 | XMS REPORT | Clinical Summary ---
Author Author Admin, IWONA Organization [employer] Address Unknown Phone Unavailable Allergies, Adverse Reactions, Alerts Allergy Name Reaction Description Start Date Severity Status Provider ERYTHROMYCIN Stomach cramps Moderate Active Prosper Arenas MD CODEINE Critical Active Maliheh Ziglari AUTO FINANCE SALES REP DARVOCET Critical Active Maliheh Ziglari AUTO FINANCE SALES REP LEVAQUIN Critical Active Maliheh Ziglari AUTO FINANCE SALES REP Conditions or Problems Problem Name Problem Code [...] type II, uncontrolled 250.02 Active Maliheh Ziglari AUTO FINANCE SALES REP Diabetes mellitus 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, type [...] with hyperglycemia 250.00 Active 03/21 Maliheh Ziglari AUTO FINANCE SALES REP Diabetes mellitus 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, type II or unspecified type, not stated as uncontrolled nursing home use of insulin treatment V58.67 Active Maliheh Ziglari AUTO FINANCE SALES REP Long-term (current) use of insulin Diabetes mellitus, type II with hypoglycemia 250.80 Active 07/22 Maliheh Ziglari AUTO FINANCE SALES REP Diabetes mellitus with other specified manifestations, type II or unspecified type, not stated as uncontrolled 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 Maliheh Ziglari AUTO FINANCE SALES REP Diabetes mellitus with renal manifestations, type II or unspecified type, not stated as uncontrolled Wellness exam V70.0 Active Dee Palmer APRN Routine general medical examination at a health care facility Fitting and adjustment of vascular catheter V58.81 Active 02/06 Dee Palmer APRN Encounter for fitting and adjustment of vascular catheter Unawareness of hypoglycemia in diabetes mellitus, type II 250.80 Active Maliheh Ziglari AUTO FINANCE SALES REP Diabetes mellitus with other specified manifestations, type [...] Generic Name NDC Status Provider Patient Instruction PREDNISONE 20 MG TABS Take 2 daily for 3 days and then 1 daily for 3 days PREDNISONE 95831916509 No Longer Active Moy PARISH Active BENZONATATE 200 MG CAPS Take 1 tablet 3 times a day as needed for cough 07/29 BENZONATATE 71145734122 No Longer Active Prosper Arenas MD Active HYDROCHLOROTHIAZIDE 25 MG TABS 1 tablet by mouth daily HYDROCHLOROTHIAZIDE 01969113468 No Longer Active Prosper Arenas MD Active ACCU-CHEK JOANNA PLUS STRP check blood sugars 5x a day, before each meal and bedtime and 15 minutes after treating a low blood. sugar GLUCOSE BLOOD 76361052017 Active Malpapo Wallaceglari AUTO FINANCE SALES REP Active NOVOLOG FLEXPEN 100 UNIT/ML SOPN Take 25 units with each meal, add 1u/50 for blood sugars above 150. INSULIN ASPART 79363797635 Active Malpapo Wallaceglari AUTO FINANCE SALES REP Active LANTUS SOLOSTAR 100 UNIT/ML SOLN Take 40 units at 7-8pm daily INSULIN GLARGINE 35864370250 Active [facility] Ziglari AUTO FINANCE SALES REP Active MECLIZINE HCL 25 MG TABS 1 daily needed for dizziness MECLIZINE HCL 46134882827 No Longer Active Maleh Ziglari AUTO FINANCE SALES REP Active BENZONATATE 200 MG CAPS 1 tab, 2-3 times a day BENZONATATE 58151026051 No Longer Active [facility] Ziglari AUTO FINANCE SALES REP Active HALOPERIDOL 0.5 MG TABS one tablet three times a day HALOPERIDOL 16619380576 No Longer Active [facility] Ziglari AUTO FINANCE SALES REP Active TRAZODONE HCL 50 MG TAB three tablets at bed time TRAZODONE HCL 98829573755 No Longer Active [facility] Ziglari AUTO FINANCE SALES REP Active REVLIMID 25 MG CAPS one capsule daily for 21 days then off for 7 days 2014 LENALIDOMIDE 24443434139 No Longer Active [facility] Ziglari AUTO FINANCE SALES REP Active ZITHROMAX Z-EDDIE 250 MG TABS 2 today, then 1 daily for 4 days 2014 AZITHROMYCIN 25421773815 No Longer Active Augustina Mata BESSY Active NOVOLIN R RELION 100 UNIT/ML INJ SOLN 30- 40 units each meal sliding scale INSULIN REGULAR HUMAN 96315866606 No Longer Active [facility] Rodrgioglari AUTO FINANCE SALES REP Active LISINOPRIL 5 MG TABS 1 daily LISINOPRIL 01184114947 Active Prosper Arenas MD Active CALCIUM 500/D 500-200 MG-UNIT TABS one tablet daily CALCIUM CARBONATE- VITAMIN D 65422330037 Active Prosper Arenas MD Active HYDROCODONE-ACETAMINOPHEN 5-500 MG TABS 1-2 FOUR TIMES A DAY, PRN HYDROCODONE-ACETAMINOPHEN 93931766202 No Longer Active Prosper Arenas MD Active SIMVASTATIN 80 MG TABS 1/2 tablet daily SIMVASTATIN 70028898544 Active Prosper Arenas MD Active METOPROLOL TARTRATE 25 MG TABS 1/2 tablet twice a day METOPROLOL TARTRATE 80475638198 Active Prosper Arenas MD Active ASPIRIN 81 MG TAB 1 tablet by mouth daily ASPIRIN 43151752288 Active Prosper Arenas MD Active OMEPRAZOLE 20 MG CPDR 1 qd OMEPRAZOLE 62070885400 Active DARCIE Miller Active DOXYCYCLINE HYCLATE 100 MG CAPS take one capsule by mouth twice daily for ten days DOXYCYCLINE HYCLATE 79302114795 No Longer Active Mekhi Dukes MD Active DOXYCYCLINE HYCLATE 100 MG CAPS take one capsule by mouth twice daily for ten days DOXYCYCLINE HYCLATE 100 MG CAPS 8952869 DOXYCYCLINE HYCLATE Inactive HYDROCODONE-ACETAMINOPHEN 5-500 MG TABS [...] days 2014 ZITHROMAX Z-EDDIE 250 MG TABS 6853388 AZITHROMYCIN Inactive REVLIMID 25 MG CAPS one capsule daily for 21 days then off for 7 days 2014 REVLIMID 25 MG CAPS LENALIDOMIDE Inactive TRAZODONE HCL 50 MG TAB three tablets at bed time TRAZODONE HCL 50 MG TAB 756332 TRAZODONE HCL Inactive HALOPERIDOL 0.5 MG TABS one tablet three times a day HALOPERIDOL 0.5 MG TABS 243622 HALOPERIDOL Inactive BENZONATATE 200 MG CAPS 1 tab, 2-3 times a day BENZONATATE 200 MG CAPS 899677 BENZONATATE Inactive MECLIZINE HCL 25 MG TABS 1 daily needed for dizziness MECLIZINE HCL 25 MG TABS 548804 MECLIZINE HCL Inactive HYDROCHLOROTHIAZIDE 25 MG TABS 1 tablet by mouth daily HYDROCHLOROTHIAZIDE 25 MG TABS 154996 HYDROCHLOROTHIAZIDE Inactive PREDNISONE 20 MG TABS Take 2 daily for 3 days and then 1 daily for 3 days PREDNISONE 20 MG TABS 123671 PREDNISONE Inactive BENZONATATE 200 MG CAPS Take 1 tablet 3 times a day as needed for cough 07/29 BENZONATATE 200 MG CAPS 536006 BENZONATATE Inactive Immunizations Vaccine Administration Date Value [...] BP sys pulse rate E&M - 8867-4 72 /min Heart rate weight E&M - 3141-9 190 [lb_av] Weight Measured blood pressure, diastolic - 8462-4 92 mm[Hg] BP chavez blood pressure, systolic - 8480-6 126 mm[Hg] BP sys pulse rate E&M - 8867-4 89 /min Heart rate temperature E&M 98.5 [degF] Body temperature weight E&M - 3141-9 191.5 [lb_av] Weight Measured blood pressure, diastolic - [...] LAB - Chemistry cholesterol, serum 156 mg/dL 591-490 5953/02/20 HDL cholesterol, serum 52 mg/dL > OR=40 [...] mg/dL Encounters Code Encounter Date Provider Facility CPT-60972 Level 3 Est. Patient 12:24:09 CDT Moy Garcia [facility] CPT-99577 Level 3 Est. Patient 14:34:57 CDT Prosper Arenas MD [facility] CPT-18932 Level 3 New Patient 15:44:53 MEDICAL RESEARCH ASSOCIATE Mekhi Dukes MD [facility] CPT-19956 Level 3 Est. Patient 14:53:34 MEDICAL RESEARCH ASSOCIATE Prosper Arenas MD [facility] CPT-73069 Level 4 Est. Patient 10:05:41 MEDICAL RESEARCH ASSOCIATE [facility] CPT-07814 Level 3 Est. Patient 11:18:32 CDT Moy Garcia [facility] CPT-32845 Level 4 Est. Patient 11:05:10 CDT Moy Garcia [facility] CPT-10547 Level 3 Est. Patient 11:08:27 MEDICAL RESEARCH ASSOCIATE Moy Garcia [facility] CPT-40052 Level 4 Est. Patient 10:43:59 CDT Prosper Arenas MD [facility] CPT-44247 Level 3 Est. Patient 10:51:19 CDT Moy Garcia [facility] CPT-33473 Level 3 Est. Patient 10:20:31 [facility] CPT-14422 Level 3 Est. Patient 17:08:45 [facility]29[facility] Level 2 Est. Patient 13:54:36 CDT Augustina Mata APRN [facility] CPT-25148 Level 3 Est. Patient 12:00:42 CDT Prosper Arenas MD [facility] CPT-86976 Level 3 Est. Patient 09:57:28 MEDICAL RESEARCH ASSOCIATE Moy Garcia [facility] CPT-50080 Level 3 Est. Patient 11:41:19 MEDICAL RESEARCH ASSOCIATE Moy Garcia [facility] CPT-02742 Level 4 Est. Patient 17:07:35 MEDICAL RESEARCH ASSOCIATE Moy Garcia [facility] CPT-31225 Level 5 Est. Patient 14:33:32 CDT [facility] CPT-09258 Level 3 Est. Patient 12:25:35 CDT Prosper Arenas MD [facility] Procedures Code Procedure Name Date Entry Date Standard Description CPT-000 Give Appropriate Flu Vaccine 10:13:55 MEDICAL RESEARCH ASSOCIATE CPT-000 Give Immunizations Due 10:13:55 MEDICAL RESEARCH ASSOCIATE CPT-98679 HGBA1C - LAB USE ONLY 09:42:47 MEDICAL RESEARCH ASSOCIATE CPT-41351 TPSA - LAB USE ONLY 09:42:46 MEDICAL RESEARCH ASSOCIATE CPT-74173 Venipuncture Draw Fee 09:42:46 MEDICAL RESEARCH ASSOCIATE CPT-73060 Port a cath flush 13:33:18 MEDICAL RESEARCH ASSOCIATE CPT-35999 First Vx - Ix admin for Medicare patients 10:42:57 MEDICAL RESEARCH ASSOCIATE CPT-66957 Fluzone Preservative Free Intramuscular Suspension 10:42 :57 MEDICAL RESEARCH ASSOCIATE CPT-G0438 Initial Annual Wellness Exam 10:13:55 MEDICAL RESEARCH ASSOCIATE CPT-000 Give Appropriate Flu Vaccine 10:44:04 CDT CPT-000 Give Pneumovax 10:44:03 CDT CPT-53692 Port a cath flush 17:04:43 CDT CPT-90775 Prevnar 13 11:19:17 CDT CPT-51723 Fluzone Quadrivalent preservative free (>=3yrs.) 11:19: 17 CDT CPT-78427 Immunization Each Additional Inj 11:19:17 CDT CPT-90049 Immunization Single Admin 11:19:17 CDT CPT-13013 Port a cath flush 13:28:22 CDT CPT-TCMM Transitional Care Mgmt-Moderate 13:40:15 CDT CPT-G0008 Administration of Influenza Virus Vaccine 13:59:20 CDT CPT-72597 Fluzone High-Dose Intramuscular Suspension 13:59:20 CDT CPT-26974 Venipuncture Draw Fee 09:56:19 CDT CPT-OV Office Visit 15:46:10 CDT
--- OUTSIDE RECORDS SUMMARY | 2017-08-25 20:52 | XMS REPORT | Clinical Summary ---
Author Author Admin, IWONA Organization [facility] Address Unknown Phone Unavailable Allergies, Adverse Reactions, Alerts Allergy Name Reaction Description Start Date Severity Status Provider ERYTHROMYCIN Stomach cramps Moderate Active Prosper Arenas MD CODEINE Critical Active Maliheh Ziglari SPECIAL EDUCATION PARA PROFESSIONAL DARVOCET Critical Active Maliheh Ziglari SPECIAL EDUCATION PARA PROFESSIONAL LEVAQUIN Critical Active Maliheh Ziglari SPECIAL EDUCATION PARA PROFESSIONAL Conditions or Problems Problem Name Problem Code Onset Date Status Entry Date Provider Comment Standard Description Annotate Diabetes, Type 2 250.00 Resolved Tami Miller silk weaver mellitus 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, type II [...] type II, uncontrolled 250.02 Active Maliheh Rodrigoglari SPECIAL EDUCATION PARA PROFESSIONAL Diabetes mellitus 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, type [...] with hyperglycemia 250.00 Active 03/21 Maliheh Ziglari SPECIAL EDUCATION PARA PROFESSIONAL Diabetes mellitus 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, type II or unspecified type, not stated as uncontrolled jail use of insulin treatment V58.67 Active Luxiheh Rodrigoglari SPECIAL EDUCATION PARA PROFESSIONAL Long-term (current) use of insulin Diabetes mellitus, type II with hypoglycemia 250.80 Active 07/22 Maliheh Ziglari SPECIAL EDUCATION PARA PROFESSIONAL Diabetes mellitus with other specified manifestations, type II or unspecified type, not stated as uncontrolled 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 Maliheh Ziglari SPECIAL EDUCATION PARA PROFESSIONAL Diabetes mellitus with renal manifestations, type II or unspecified type, not stated as uncontrolled Wellness exam V70.0 Active Dee Palmer APRN Routine general medical examination at a health care facility Fitting and adjustment of vascular catheter V58.81 Active 02/06 Dee Palmer APRN Encounter for fitting and adjustment of vascular catheter Unawareness of hypoglycemia in diabetes mellitus, type II 250.80 Active Maliheh Ziglari SPECIAL EDUCATION PARA PROFESSIONAL Diabetes mellitus with other specified manifestations, type [...] or gangrene (not specified as recurrent) Gastritis Active Maliheh Ziglari SPECIAL EDUCATION PARA PROFESSIONAL Unspecified gastritis and gastroduodenitis, 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 hemorrhage Diabetes, Type 2 ICD-250.00 Inactive Mekhi Dukes [...] 1-2 every 4-6 hrs prn 02/25 HYDROCODONE-ACETAMINOPHEN 18275329305 Active Marina Messina APRN Active ASPIRIN 81 MG ORAL TABLET 1 tablet by mouth daily ASPIRIN 46624577686 No Longer Active Marina Messina APRN Active SIMVASTATIN 80 MG ORAL TABLET 1/2 tablet daily SIMVASTATIN 74274360868 No Longer Active Mekhi Dukes MD Active OMEPRAZOLE 20 MG ORAL CAPSULE DELAYED RELEASE 1 qd OMEPRAZOLE 87498638764 No Longer Active Mekhi Dukes MD Active METOPROLOL TARTRATE 25 MG ORAL TABLET 1/2 tablet twice a day METOPROLOL TARTRATE 47231793539 No Longer Active Mekhi Dukes MD Active LISINOPRIL 5 MG ORAL TABLET 1 daily LISINOPRIL 10655733204 No Longer Active Mekhi Dukes MD Active NOVOLOG FLEXPEN 100 UNIT/ML SUBCUTANEOUS SOLUTION PEN-INJECTOR Take 8 units with each meal, add 1u/50 for blood sugars above 150. INSULIN ASPART 22620177733 Active Malpapo DURANTP Active GABAPENTIN 300 MG ORAL CAPSULE 1 tab BID GABAPENTIN 45000665529 Active Tami Miller RN Active PREDNISONE 20 MG ORAL TABLET Take 2 daily for 3 days and then 1 daily for 3 days PREDNISONE 71330326829 No Longer Active Maliheh Ziglari SPECIAL EDUCATION PARA PROFESSIONAL Active BENZONATATE 200 MG ORAL CAPSULE Take 1 tablet 3 times a day as needed for cough BENZONATATE 30479586230 No Longer Active Prosper Arenas MD Active HYDROCHLOROTHIAZIDE 25 MG ORAL TABLET 1 tablet by mouth daily HYDROCHLOROTHIAZIDE 55114431582 No Longer Active Prosper Arenas MD Active ACCU-CHEK JOANNA PLUS IN VITRO STRIP check blood sugars 5x a day, before each meal and bedtime and 15 minutes after treating a low blood. sugar GLUCOSE BLOOD 67693950283 Active Maliheh Ziglari SPECIAL EDUCATION PARA PROFESSIONAL Active LANTUS SOLOSTAR 100 UNIT/ML SUBCUTANEOUS SOLUTION PEN-INJECTOR Take 40 units at 7-8pm daily INSULIN GLARGINE 09015615365 Active Maliheh Ziglari SPECIAL EDUCATION PARA PROFESSIONAL Active MECLIZINE HCL 25 MG ORAL TABLET 1 daily needed for dizziness 2015 MECLIZINE HCL 77200716003 No Longer Active Maliheh Ziglari SPECIAL EDUCATION PARA PROFESSIONAL Active BENZONATATE 200 MG ORAL CAPSULE 1 tab, 2-3 times a day BENZONATATE 43917205164 No Longer Active Maliheh Ziglari SPECIAL EDUCATION PARA PROFESSIONAL Active HALOPERIDOL 0.5 MG ORAL TABLET one tablet three times a day HALOPERIDOL 06333172272 No Longer Active Maliheh Ziglari SPECIAL EDUCATION PARA PROFESSIONAL Active TRAZODONE HCL 50 MG ORAL TABLET three tablets at bed time TRAZODONE HCL 06665836085 No Longer Active Maliheh Ziglari SPECIAL EDUCATION PARA PROFESSIONAL Active REVLIMID 25 MG ORAL CAPSULE one capsule daily for 21 days then off for 7 days LENALIDOMIDE 70499379243 No Longer Active Maliheh Ziglari SPECIAL EDUCATION PARA PROFESSIONAL Active ZITHROMAX Z-EDDIE 250 MG ORAL TABLET 2 today, then 1 daily for 4 days AZITHROMYCIN 36155233548 No Longer Active Augustina Mata APRN Active NOVOLIN R RELION 100 UNIT/ML INJECTION SOLUTION 30- 40 units each meal sliding scale INSULIN REGULAR HUMAN 12029432427 No Longer Active Maliheh Ziglari SPECIAL EDUCATION PARA PROFESSIONAL Active CALCIUM 500/D 500-200 MG-UNIT ORAL TABLET one tablet daily CALCIUM CARBONATE-VITAMIN D 65863279778 Active Prosper Arenas MD Active HYDROCODONE-ACETAMINOPHEN 5-500 MG ORAL TABLET 1-2 FOUR TIMES A DAY, PRN 2010 HYDROCODONE-ACETAMINOPHEN 22210008061 No Longer Active Prosper Arenas MD Active DOXYCYCLINE HYCLATE 100 MG ORAL CAPSULE take one capsule by mouth twice daily for ten days DOXYCYCLINE HYCLATE 99574468151 No Longer Active Mekhi Dukes MD Active DOXYCYCLINE HYCLATE 100 MG ORAL CAPSULE take one capsule by mouth twice daily for ten days DOXYCYCLINE HYCLATE 100 MG ORAL CAPSULE 3619389 DOXYCYCLINE HYCLATE Inactive HYDROCODONE-ACETAMINOPHEN 5-500 MG ORAL TABLET 1-2 FOUR TIMES A DAY, PRN 2010 HYDROCODONE-ACETAMINOPHEN 5-500 MG ORAL TABLET 234280 HYDROCODONE-ACETAMINOPHEN Inactive NOVOLIN R RELION 100 UNIT/ML INJECTION SOLUTION 30- 40 units each meal sliding scale NOVOLIN R RELION 100 UNIT/ML INJECTION SOLUTION INSULIN REGULAR HUMAN Inactive ZITHROMAX Z-EDDIE 250 MG ORAL TABLET 2 today, then 1 daily for 4 days ZITHROMAX Z-EDDIE 250 MG ORAL TABLET 502859 AZITHROMYCIN Inactive REVLIMID 25 MG ORAL CAPSULE one capsule daily for 21 days then off for 7 days REVLIMID 25 MG ORAL CAPSULE LENALIDOMIDE Inactive TRAZODONE HCL 50 MG ORAL TABLET three tablets at bed time TRAZODONE HCL 50 MG ORAL TABLET 394970 TRAZODONE HCL Inactive HALOPERIDOL 0.5 MG ORAL TABLET one tablet three times a day HALOPERIDOL 0.5 MG ORAL TABLET 524740 HALOPERIDOL Inactive BENZONATATE 200 MG ORAL CAPSULE 1 tab, 2-3 times a day BENZONATATE 200 MG ORAL CAPSULE 063391 BENZONATATE Inactive MECLIZINE HCL 25 MG ORAL TABLET 1 daily needed for dizziness 2015 MECLIZINE HCL 25 MG ORAL TABLET 246486 MECLIZINE HCL Inactive HYDROCHLOROTHIAZIDE 25 MG ORAL TABLET 1 tablet by mouth daily HYDROCHLOROTHIAZIDE 25 MG ORAL TABLET 563893 HYDROCHLOROTHIAZIDE Inactive PREDNISONE 20 MG ORAL TABLET Take 2 daily for 3 days and then 1 daily for 3 days PREDNISONE 20 MG ORAL TABLET 602915 PREDNISONE Inactive LISINOPRIL 5 MG ORAL TABLET 1 daily LISINOPRIL 5 MG ORAL TABLET 421296 LISINOPRIL Inactive METOPROLOL TARTRATE 25 MG ORAL TABLET 1/2 tablet twice a day METOPROLOL TARTRATE 25 MG ORAL TABLET 531092 METOPROLOL TARTRATE Inactive OMEPRAZOLE 20 MG ORAL CAPSULE DELAYED RELEASE 1 qd OMEPRAZOLE 20 MG ORAL CAPSULE DELAYED RELEASE 824386 OMEPRAZOLE Inactive SIMVASTATIN 80 MG ORAL TABLET 1/2 tablet daily SIMVASTATIN 80 MG ORAL TABLET 729944 SIMVASTATIN Inactive ASPIRIN 81 MG ORAL TABLET 1 tablet by mouth daily ASPIRIN 81 MG ORAL TABLET 000693 ASPIRIN Inactive BENZONATATE 200 MG ORAL CAPSULE Take 1 tablet 3 times a day as needed for cough BENZONATATE 200 MG ORAL CAPSULE 644745 BENZONATATE Inactive Immunizations Vaccine Administration Date Value [...] Value Unit Range Description blood pressure, diastolic 80 mm[Hg] BP chavez [...] W/DIFF - Chemistry sodium, serum 137 mmol/L 877-191 6340/08/16 carbon dioxide, venous blood 26.3 mmol/L 21.0-32.0 [...] LABS - Chemistry cholesterol, serum 115 mg/dL 093-576 1145/08/18 triglyceride, serum, fasting 89 mg/dL 30-200 HDL cholesterol, serum 46 mg/dL 32-60 LDL cholesterol, serum 51 mg/dL 0-130 blood glucose 104 mg/dL 65-110 Lab Report: LIPID PANEL- REPOWER LAB - Chemistry cholesterol, serum 156 mg/dL 892-765 7754/02/20 HDL cholesterol, serum 52 mg/dL > OR=40 [...] mg/dL Encounters Code Encounter Date Provider Facility CPT-18117 Level 3 Est. Patient 10:53:32 [facility] HELPER [facility] CPT-87840 Level 3 Est. Patient 17:11:55 PICKLER HELPER Ismael Gracia MD [facility] CPT-38005 Level 4 Est. Patient 16:29:19 CDT Mekhi Dukes MD [facility] CPT-51289 Level 3 New Patient 17:05:24 CDT Ismael Gracia MD [facility] CPT-89246 Level 2 Est. Patient 15:43:17 CDT Mekhi Dukes MD [facility] CPT-28115 Level 3 Est. Patient 09:30:37 [facility] CPT-01513 Level 3 Est. Patient 10:00:14 CDT Mekhi Dukes MD [facility] CPT-21517 Level 3 Est. Patient 12:24:09 CDT Moy Garcia [facility] CPT-60157 Level 3 Est. Patient 14:34:57 CDT Prosper Arenas MD [facility] CPT-97433 Level 3 New Patient 15:44:53 PICKLER HELPER Mekhi Dukes MD [facility] CPT-99360 Level 3 Est. Patient 14:53:34 PICKLER HELPER Prosper Arenas MD [facility] CPT-21576 Level 4 Est. Patient 10:05:41 PICKLER HELPER Moy Rodrigokymrex [facility] CPT-98502 Level 3 Est. [facility] 11:18:32 [facility] Level 4 Est. Patient 11:05:10 CDT Moy Garcia [facility] CPT-83009 Level 3 Est. Patient 11:08:27 PICKLER HELPER Moy Garcia [facility] CPT-80216 Level 4 Est. Patient 10:43:59 CDT Prosper Arenas MD [facility] CPT-74801 Level 3 Est. Patient 10:51:19 CDT Moy Garcia [facility] CPT-14396 Level 3 Est. Patient 10:20:31 CDT Moy Garcia [facility] CPT-49732 Level 3 Est. Patient 17:08:45 CDT Moy Garcia [facility] CPT-47336 Level 2 Est. Patient 13:54:36 CDT Augustina Mata APRN [facility] CPT-68030 Level 3 Est. Patient 12:00:42 CDT Prosper Arenas MD [facility]-07894 Level 3 Est. Patient 09:57:28 [facility]PER [facility] CPT-54786 Level 3 Est. Patient 11:41:19 PICKLER HELPER Luxshoaib Wallacerex [facility] CPT-44213 Level 4 Est. Patient 17:07:35 PICKLER HELPER [facility] CPT-89450 Level 5 Est. Patient 14:33:32 [facility]T [facility] CPT-94466 Level 3 Est. Patient 12:25:35 CDT Prosper Arenas MD [facility] Procedures Code Procedure Name Date Entry Date Standard Description CPT-58501 Postop F/U Visit 17:20:20 PICKLER HELPER CPT-G0439 Subsequent Annual Wellness Exam 08:39:41 PICKLER HELPER CPT-000 Give Appropriate Flu Vaccine 10:13:55 PICKLER HELPER CPT-000 Give Immunizations Due 10:13:55 PICKLER HELPER CPT-11418 HGBA1C - LAB USE ONLY 09:42:47 PICKLER HELPER CPT-14944 TPSA - LAB USE ONLY 09:42:46 PICKLER HELPER CPT-89152 Venipuncture Draw Fee 09:42:46 PICKLER HELPER CPT-94752 Port a cath flush 13:33:18 PICKLER HELPER CPT-34317 First Vx - Ix admin for Medicare patients 10:42:57 PICKLER HELPER CPT-47728 Fluzone Preservative Free Intramuscular Suspension 10:42 :57 PICKLER HELPER CPT-G0438 Initial Annual Wellness Exam 10:13:55 PICKLER HELPER CPT-000 Give Appropriate Flu Vaccine 10:44:04 CDT CPT-000 Give Pneumovax 10:44:03 CDT CPT-34317 Port a cath flush 17:04:43 CDT CPT-82437 Prevnar 13 11:19:17 CDT CPT-30418 Fluzone Quadrivalent preservative free (>=3yrs.) 11:19: 17 CDT CPT-10861 Immunization Each Additional Inj 11:19:17 CDT CPT-10515 Immunization Single Admin 11:19:17 CDT CPT-02006 Port a cath flush 13:28:22 CDT CPT-TCMM Transitional Care Mgmt-Moderate 13:40:15 CDT CPT-G0008 Administration of Influenza Virus Vaccine 13:59:20 CDT CPT-62017 Fluzone High-Dose Intramuscular Suspension 13:59:20 CDT CPT-83229 Venipuncture Draw Fee 09:56:19 CDT CPT-OV Office Visit 15:46:10 CDT
--- OUTSIDE RECORDS SUMMARY | 2017-08-25 20:53 | XMS REPORT | Clinical Summary ---
Author Author Admin, IWONA Organization [facility] Address Unknown Phone Unavailable Allergies, Adverse Reactions, Alerts Allergy Name Reaction Description Start Date Severity Status Provider ERYTHROMYCIN Stomach cramps Moderate Active Prosper Arenas MD CODEINE Critical Active Maliheh Ziglari NATIONAL SALES CONSULTANT DARVOCET Critical Active Maliheh Ziglari NATIONAL SALES CONSULTANT LEVAQUIN Critical Active Maliheh Ziglari NATIONAL SALES CONSULTANT Conditions or Problems Problem Name Problem Code [...] type II, uncontrolled 250.02 Active Maliheh Ziglari NATIONAL SALES CONSULTANT Diabetes mellitus 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, type II or unspecified type, uncontrolled Chest pain, atypical 786.59 Active Prosper Arenas MD Other chest pain Bronchitis 490 Active Prosper Arenas MD Bronchitis, not specified as acute or chronic Multiple myeloma 203.00 Active Egna Faux RMA Multiple myeloma 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 [...] with hyperglycemia 250.00 Active 03/21 Maliheh Ziglari NATIONAL SALES CONSULTANT Diabetes mellitus 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, type II or unspecified type, not stated as uncontrolled 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 INSULIN ASPART 24098648625 Active Maliheh Ziglari NATIONAL SALES CONSULTANT Active MECLIZINE HCL 25 MG TABS 1 daily needed for dizziness MECLIZINE HCL 75986528253 Active Prosper Arenas MD Active BENZONATATE 200 MG CAPS 1 tab, 2-3 times a day BENZONATATE 51995387542 No Longer Active Maliheh Ziglari NATIONAL SALES CONSULTANT Active HALOPERIDOL 0.5 MG TABS one tablet three times a day HALOPERIDOL 16552428405 No Longer Active Moy Ziglari NATIONAL SALES CONSULTANT Active TRAZODONE HCL 50 MG TAB three tablets at bed time TRAZODONE HCL 77366210262 No Longer Active Luxshoaib Wallaceglari NATIONAL SALES CONSULTANT Active REVLIMID 25 MG CAPS one capsule daily for 21 days then off for 7 days 2014 LENALIDOMIDE 85294105733 No Longer Active Malshoaib Ziglari NATIONAL SALES CONSULTANT Active ZITHROMAX Z-EDDIE 250 MG TABS 2 today, then 1 daily for 4 days 2014 AZITHROMYCIN 71400669704 No Longer Active Augustina Mata NON MORSE INTERCEPT TECHNICIAN Active NOVOLIN R RELION 100 UNIT/ML INJ SOLN 30- 40 units each meal sliding scale INSULIN REGULAR HUMAN 08624670169 No Longer Active Moy PARISH Active LISINOPRIL 5 MG TABS 1 daily LISINOPRIL 69140687042 Active Prosper Arenas MD Active CALCIUM 500/D 500-200 MG-UNIT TABS one tablet daily CALCIUM CARBONATE- VITAMIN D 59526881113 Active Prosper Arenas MD Active HYDROCHLOROTHIAZIDE 25 MG TABS 1 tablet by mouth daily HYDROCHLOROTHIAZIDE 22496762099 Active Prosper Arenas MD Active HYDROCODONE-ACETAMINOPHEN 5-500 MG TABS 1-2 FOUR TIMES A DAY, PRN HYDROCODONE-ACETAMINOPHEN 43930951017 No Longer Active Prosper Arenas MD Active SIMVASTATIN 80 MG TABS 1/2 tablet daily SIMVASTATIN 58446542080 Active Prosper Arenas MD Active METOPROLOL TARTRATE 25 MG TABS 1/2 tablet twice a day METOPROLOL TARTRATE 16437986065 Active Prosper Arenas MD Active ASPIRIN 81 MG TAB 1 tablet by mouth daily ASPIRIN 37188541208 Active Prosper Arenas MD Active OMEPRAZOLE 20 MG CPDR 1 qd OMEPRAZOLE 72658771315 Active DACRIE Miller Active DOXYCYCLINE HYCLATE 100 MG CAPS take one capsule by mouth twice daily for ten days DOXYCYCLINE HYCLATE 99839836325 No Longer Active Mekhi Dukes MD Active DOXYCYCLINE HYCLATE 100 MG CAPS take one capsule by mouth twice daily for ten days DOXYCYCLINE HYCLATE 100 MG CAPS 2874835 DOXYCYCLINE HYCLATE Inactive HYDROCODONE-ACETAMINOPHEN 5-500 MG TABS [...] days 2014 ZITHROMAX Z-EDDIE 250 MG TABS 1952752 AZITHROMYCIN Inactive REVLIMID 25 MG CAPS one capsule daily for 21 days then off for 7 days 2014 REVLIMID 25 MG CAPS LENALIDOMIDE Inactive TRAZODONE HCL 50 MG TAB three tablets at bed time TRAZODONE HCL 50 MG TAB 895859 TRAZODONE HCL Inactive HALOPERIDOL 0.5 MG TABS one tablet three times a day HALOPERIDOL 0.5 MG TABS 232597 HALOPERIDOL Inactive BENZONATATE 200 MG CAPS 1 tab, 2-3 times a day BENZONATATE 200 MG CAPS 129164 BENZONATATE Inactive Immunizations Vaccine Administration Date Value [...] E&M - 3141-9 182.6 [lb_av] Weight Measured Diagnostic Results Date Name Value Unit Range Description Chart Maintenance: Outside labs entered on flowsheet - Chemistry sodium, serum 139 mmol/L potassium, [...] U/L Chart Maintenance: Outside labs entered on Posto7 - Hematology leukocyte count, blood 5.1 10*3/mm3 hemoglobin, blood 14.7 g/dL platelet count 190 10*3/mm3 leukocyte count, blood 4.5 10*3/mm3 hemoglobin, blood 15.1 g/dL platelet count 158 10*3/mm3 Lab Report: Basic Metabolic Panel, HGBA1C - Chemistry sodium, serum 135 mmol/L 811-378 2621/09/17 potassium, serum 4.0 mmol/L 3.5-5.2 chloride, serum 98 mmol/L 98-107 carbon dioxide, venous blood 29.8 mmol/L 21.0-32.0 blood glucose 180 mg/dL 65-110 calcium, serum 8.7 mg/dL 8.5-10.1 urea nitrogen, blood 17 mg/dL 7-18 creatinine, serum 2.00 mg/dL 0.55-1.30 hemoglobin A1C, blood, as % of total hemoglobin 7.4 % 4.3-6.0 Lab Report: CBC W/DIFF, Comp. Metabolic Panel - Chemistry sodium, serum 131 mmol/L 825-964 5250/03/18 potassium, serum 4.4 mmol/L 3.5-5.2 chloride, serum [...] Metabolic Panel - Hematology leukocyte count, blood 4.8 10^3/MM^3 10*3/mm3 4.6-10.2 [...] 142-424 Lab Report: CBC, Basic Metabolic Panel, [facility] - Chemistry sodium, serum 137 mmol/L 702-149 0108/10/23 potassium, serum 3.5 mmol/L 3.5-5.2 chloride, serum 100 mmol/L 98-107 carbon dioxide, venous blood 29.5 mmol/L 21.0-32.0 blood glucose 129 mg/dL 65-110 calcium, serum 8.8 mg/dL 8.5-10.1 urea nitrogen, blood 23 mg/dL 7-18 creatinine, serum 1.71 mg/dL 0.55-1.30 hemoglobin A1C, blood, as % of total hemoglobin 7.7 % 4.3-6.0 Lab Report: CBC, Basic Metabolic Panel, [facility] - Hematology leukocyte count, blood 9.0 10^3/MM^3 [...] mg/dL Encounters Code Encounter Date Provider Facility CPT-46427 Level 3 Est. Patient 11:08:27 SUPERVISOR PLASMA [facility] [place]-21083 Level 4 Est. Patient 10:43:59 CDT Prosper Arenas MD [facility] CPT-04553 Level 3 Est. Patient 10:51:19 CD[place] [facility] [place]-36163 Level 3 Est. Patient 10:20:31 CD[place] [facility] [place]-76865 Level 3 Est. Patient 17:08:45 CD[place] [facility] [place]-11995 Level 2 Est. Patient 13:54:36 CDT Augustina Mata APRN [facility] CPT-06631 Level 3 Est. Patient 12:00:42 CDT Prosper Arenas MD [facility] CPT-87285 Level 3 Est. Patient 09:57:28 SUPERVISOR PLASMA Moy Garcia [facility] CPT-51211 Level 3 Est. Patient 11:41:19 SUPERVISOR PLASMA Moy Garcia [facility] CPT-48756 Level 4 Est. Patient 17:07:35 SUPERVISOR PLASMA Moy Garcia [facility] CPT-03448 Level 5 Est. Patient 14:33:32 [facility] CPT-20464 Level 3 Est. Patient 12:25:35 CDT Prosper Arenas MD [facility] Procedures Code Procedure Name Date Entry Date Standard Description CPT-000 Give Appropriate Flu Vaccine 10:44:04 CDT CPT-000 Give Pneumovax 10:44:03 CDT CPT-87564 Port a cath flush 17:04:43 CDT CPT-28187 Prevnar 13 11:19:17 CDT CPT-41647 Fluzone Quadrivalent preservative free (>=3yrs.) 11:19: 17 CDT CPT-86872 Immunization Each Additional Inj 11:19:17 CDT CPT-78378 Immunization Single Admin 11:19:17 CDT CPT-69025 Port a cath flush 13:28:22 CDT CPT-TCMM Transitional Care Mgmt-Moderate 13:40:15 CDT CPT-G0008 Administration of Influenza Virus Vaccine 13:59:20 CDT CPT-58749 Fluzone High-Dose Intramuscular Suspension 13:59:20 CDT CPT-39373 Venipuncture Draw Fee 09:56:19 CDT CPT-OV Office Visit 15:46:10 CDT
--- OUTSIDE RECORDS SUMMARY | 2017-08-25 20:53 | XMS REPORT ---
Author Author [facility] Medical Staff Organization [facility] Address [address] [place] [address] Phone [phone] Summary purpose TRANSITION OF CARE AUTO GENERATION [...] diagnostic tests and/or laboratory data RESULTS Chemistry [id number]:06:00 Result Normal Range Units Sodium 137 134-145 mEq/l Potassium L 3.2 3.5-5.1 mEq/l Chloride 99 98-107 mEq/l CO2 27.8 22-28 mEq/l Glucose 91 70-105 mg/dl BUN H 19 7-18 mg/dl Creatinine H 1.89 0.6-1.3 mg/dl Calcium 8.5 8.4-10.2 mg/dl TP - Total Protein 7.8 6.0-8.3 g/dl Albumin 3.6 3.5-5 g/dl Bilirubin - Total 0.6 0.1-1.0 mg/dl AST H 70 10-42 IU/L ALT H 118 12-65 IU/L ALP 82 39-107 IU/L Osmolality L 275.7 280-300 mOsm/L Albumin/Globulin Ratio 0.9 0-8 Anion GAP 10.2 8-16 BUN/Creatinine Ratio 10.1 10-20 Estimated GFR L 44 >=60 mL/min/1.7 Hematology [id number]:06:00 Result Normal Range Units WBC 8.0 4.8-10.8 103/uL RBC 5.0 4.7-6.1 106/uL HGB 16.2 13.0-18.0 g/dl HCT 46.4 41.9-52.0 % MCV 93.4 80-94 FL MCH H 32.6 27-31 pg MCHC 34.9 33-37 g/dl RDW 11.9 11.5-15.5 % PLT 201 130-400 103/uL MPV H 10.6 7.3-10.4 FL Neutro % L 28.9 40-70 % Lymph % H 55.3 20-40 % Pettis % H 11.6 0-10.0 % Eos % 3.0 0-7.0 % Baso % 0.8 0-2 % Neutro # 2.3 1.5-7.5 103/uL Lymph # H 4.4 0.9-4.0 103/uL Pettis # H 0.9 0-0.8 103/uL Eos # 0.2 0-0.6 103/uL Baso # 0.1 0-0.1 103/uL Radiology Results [id number]:06:00 Result Normal Range Units MPV H 10.6 7.3-10.4 FL History of procedures Procedure Code Code Type Description Date Performed Performing Physician 56207 CPT-4 COMPLETE CBC W/AUTO DIFF WBC 11-29-2014 HENRIK RIGGINS 26090 CPT-4 COMPREHEN METABOLIC PANEL 11-29-2014 HENRIK RIGGINS 58359 CPT-4 ROUTINE VENIPUNCTURE 11-29-2014 HENRIK RIGGINS Functional status No functional or [...]
--- OUTSIDE RECORDS SUMMARY | 2017-08-25 20:54 | XMS REPORT | Clinical Summary ---
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, 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 II [...] type II, uncontrolled 250.02 Active Maliheh Rodrigoglari DYER AND WASHER Diabetes mellitus 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, type [...] with hyperglycemia 250.00 Active 03/21 Maliheh Ziglari DYER AND WASHER Diabetes mellitus 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, type II or unspecified type, not stated as uncontrolled FDC use of insulin treatment V58.67 Active Luxiheh Rodrigoglari DYER AND WASHER Long-term (current) use of insulin Diabetes mellitus, type II with hypoglycemia 250.80 Active 07/22 Maliheh Ziglari DYER AND WASHER Diabetes mellitus with other specified manifestations, type II or unspecified type, not stated as uncontrolled 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 Maliheh Ziglari DYER AND WASHER Diabetes mellitus with renal manifestations, type II or unspecified type, not stated as uncontrolled Wellness exam V70.0 Active Dee Palmer APRN Routine general medical examination at a health care facility Fitting and adjustment of vascular catheter V58.81 Active 02/06 Dee Palmer APRN Encounter for fitting and adjustment of vascular catheter Unawareness of hypoglycemia in diabetes mellitus, type II 250.80 Active Maliheh Ziglari DYER AND WASHER Diabetes mellitus with other specified manifestations, type [...] specified as recurrent) Gastritis Active Maliheh Ziglari DYER AND WASHER Unspecified gastritis and gastroduodenitis, 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 [...] 1-2 every 4-6 hrs prn 02/25 HYDROCODONE-ACETAMINOPHEN 71150476676 Active Marina Messina APRN Active ASPIRIN 81 MG ORAL TABLET 1 tablet by mouth daily ASPIRIN 77842778281 No Longer Active Marina Messina APRN Active SIMVASTATIN 80 MG ORAL TABLET 1/2 tablet daily SIMVASTATIN 91243787268 No Longer Active Mekhi Dukes MD Active OMEPRAZOLE 20 MG ORAL CAPSULE DELAYED RELEASE 1 qd OMEPRAZOLE 80488308718 No Longer Active Mekhi Dukes MD Active METOPROLOL TARTRATE 25 MG ORAL TABLET 1/2 tablet twice a day METOPROLOL TARTRATE 32970951656 No Longer Active Mekhi Dukes MD Active LISINOPRIL 5 MG ORAL TABLET 1 daily LISINOPRIL 87889745515 No Longer Active Mekhi Dukes MD Active NOVOLOG FLEXPEN 100 UNIT/ML SUBCUTANEOUS SOLUTION PEN-INJECTOR Take 8 units with each meal, add 1u/50 for blood sugars above 150. INSULIN ASPART 35868932949 Active Malpapo DURANTP Active GABAPENTIN 300 MG ORAL CAPSULE 1 tab BID GABAPENTIN 14265767457 Active Tami Miller RN Active PREDNISONE 20 MG ORAL TABLET Take 2 daily for 3 days and then 1 daily for 3 days PREDNISONE 36164489327 No Longer Active Maliheh Ziglari DYER AND WASHER Active BENZONATATE 200 MG ORAL CAPSULE Take 1 tablet 3 times a day as needed for cough BENZONATATE 35332433549 No Longer Active Prosper Arenas MD Active HYDROCHLOROTHIAZIDE 25 MG ORAL TABLET 1 tablet by mouth daily HYDROCHLOROTHIAZIDE 74252427634 No Longer Active Prosper Arenas MD Active ACCU-CHEK JOANNA PLUS IN VITRO STRIP check blood sugars 5x a day, before each meal and bedtime and 15 minutes after treating a low blood. sugar GLUCOSE BLOOD 06699039828 Active Maliheh Ziglari DYER AND WASHER Active LANTUS SOLOSTAR 100 UNIT/ML SUBCUTANEOUS SOLUTION PEN-INJECTOR Take 40 units at 7-8pm daily INSULIN GLARGINE 35602169924 Active Maliheh Ziglari DYER AND WASHER Active MECLIZINE HCL 25 MG ORAL TABLET 1 daily needed for dizziness 2015 MECLIZINE HCL 28883544402 No Longer Active Maliheh Ziglari DYER AND WASHER Active BENZONATATE 200 MG ORAL CAPSULE 1 tab, 2-3 times a day BENZONATATE 40597322620 No Longer Active Maliheh Ziglari DYER AND WASHER Active HALOPERIDOL 0.5 MG ORAL TABLET one tablet three times a day HALOPERIDOL 36400194024 No Longer Active Maliheh Ziglari DYER AND WASHER Active TRAZODONE HCL 50 MG ORAL TABLET three tablets at bed time TRAZODONE HCL 82017337259 No Longer Active Maliheh Ziglari DYER AND WASHER Active REVLIMID 25 MG ORAL CAPSULE one capsule daily for 21 days then off for 7 days LENALIDOMIDE 70565622122 No Longer Active Maliheh Ziglari DYER AND WASHER Active ZITHROMAX Z-EDDIE 250 MG ORAL TABLET 2 today, then 1 daily for 4 days AZITHROMYCIN 20154453979 No Longer Active Augustina Mata APRN Active NOVOLIN R RELION 100 UNIT/ML INJECTION SOLUTION 30- 40 units each meal sliding scale INSULIN REGULAR HUMAN 45683171163 No Longer Active Maliheh Ziglari DYER AND WASHER Active CALCIUM 500/D 500-200 MG-UNIT ORAL TABLET one tablet daily CALCIUM CARBONATE-VITAMIN D 35585200339 Active Prosper Arenas MD Active HYDROCODONE-ACETAMINOPHEN 5-500 MG ORAL TABLET 1-2 FOUR TIMES A DAY, PRN 2010 HYDROCODONE-ACETAMINOPHEN 12239400067 No Longer Active Prosper Arenas MD Active DOXYCYCLINE HYCLATE 100 MG ORAL CAPSULE take one capsule by mouth twice daily for ten days DOXYCYCLINE HYCLATE 17589848949 No Longer Active Mekhi Dukes MD Active DOXYCYCLINE HYCLATE 100 MG ORAL CAPSULE take one capsule by mouth twice daily for ten days DOXYCYCLINE HYCLATE 100 MG ORAL CAPSULE 1566974 DOXYCYCLINE HYCLATE Inactive HYDROCODONE-ACETAMINOPHEN 5-500 MG ORAL TABLET 1-2 FOUR TIMES A DAY, PRN 2010 HYDROCODONE-ACETAMINOPHEN 5-500 MG ORAL TABLET 347006 HYDROCODONE-ACETAMINOPHEN Inactive NOVOLIN R RELION 100 UNIT/ML INJECTION SOLUTION 30- 40 units each meal sliding scale NOVOLIN R RELION 100 UNIT/ML INJECTION SOLUTION INSULIN REGULAR HUMAN Inactive ZITHROMAX Z-EDDIE 250 MG ORAL TABLET 2 today, then 1 daily for 4 days ZITHROMAX Z-EDDIE 250 MG ORAL TABLET 495469 AZITHROMYCIN Inactive REVLIMID 25 MG ORAL CAPSULE one capsule daily for 21 days then off for 7 days REVLIMID 25 MG ORAL CAPSULE LENALIDOMIDE Inactive TRAZODONE HCL 50 MG ORAL TABLET three tablets at bed time TRAZODONE HCL 50 MG ORAL TABLET 406154 TRAZODONE HCL Inactive HALOPERIDOL 0.5 MG ORAL TABLET one tablet three times a day HALOPERIDOL 0.5 MG ORAL TABLET 506319 HALOPERIDOL Inactive BENZONATATE 200 MG ORAL CAPSULE 1 tab, 2-3 times a day BENZONATATE 200 MG ORAL CAPSULE 446164 BENZONATATE Inactive MECLIZINE HCL 25 MG ORAL TABLET 1 daily needed for dizziness 2015 MECLIZINE HCL 25 MG ORAL TABLET 291209 MECLIZINE HCL Inactive HYDROCHLOROTHIAZIDE 25 MG ORAL TABLET 1 tablet by mouth daily HYDROCHLOROTHIAZIDE 25 MG ORAL TABLET 683827 HYDROCHLOROTHIAZIDE Inactive PREDNISONE 20 MG ORAL TABLET Take 2 daily for 3 days and then 1 daily for 3 days PREDNISONE 20 MG ORAL TABLET 048709 PREDNISONE Inactive LISINOPRIL 5 MG ORAL TABLET 1 daily LISINOPRIL 5 MG ORAL TABLET 603259 LISINOPRIL Inactive METOPROLOL TARTRATE 25 MG ORAL TABLET 1/2 tablet twice a day METOPROLOL TARTRATE 25 MG ORAL TABLET 721919 METOPROLOL TARTRATE Inactive OMEPRAZOLE 20 MG ORAL CAPSULE DELAYED RELEASE 1 qd OMEPRAZOLE 20 MG ORAL CAPSULE DELAYED RELEASE 520254 OMEPRAZOLE Inactive SIMVASTATIN 80 MG ORAL TABLET 1/2 tablet daily SIMVASTATIN 80 MG ORAL TABLET 033678 SIMVASTATIN Inactive ASPIRIN 81 MG ORAL TABLET 1 tablet by mouth daily ASPIRIN 81 MG ORAL TABLET 711840 ASPIRIN Inactive BENZONATATE 200 MG ORAL CAPSULE Take 1 tablet 3 times a day as needed for cough BENZONATATE 200 MG ORAL CAPSULE 262455 BENZONATATE Inactive Immunizations Vaccine Administration Date Value [...] W/DIFF - Chemistry sodium, serum 137 mmol/L 129-204 7100/08/16 carbon dioxide, venous blood 26.3 mmol/L 21.0-32.0 [...] LABS - Chemistry cholesterol, serum 115 mg/dL 190-499 7396/08/18 triglyceride, serum, fasting 89 mg/dL 30-200 HDL cholesterol, serum 46 mg/dL 32-60 LDL cholesterol, serum 51 mg/dL 0-130 blood glucose 104 mg/dL 65-110 Lab Report: LIPID PANEL- REPOWER LAB - Chemistry cholesterol, serum 156 mg/dL 336-362 8346/02/20 HDL cholesterol, serum 52 mg/dL > OR=40 [...] mg/dL Encounters Code Encounter Date Provider Facility CPT-95745 Level 3 Est. Patient 10:53:32 ELECTRIC DEICER INSPECTOR [facility] CPT-74143 Level 3 Est. Patient 17:11:55 ELECTRIC DEICER INSPECTOR Ismael Gracia MD [facility] CPT-25934 Level 4 Est. Patient 16:29:19 CDT Mekhi Dukes MD [facility] CPT-08749 Level 3 New Patient 17:05:24 CDT Ismael Gracia MD [facility] CPT-25684 Level 2 Est. Patient 15:43:17 CDT Mekhi Dukes MD [facility] CPT-64688 Level 3 Est. Patient 09:30:37 [facility] CPT-08908 Level 3 Est. Patient 10:00:14 CDT Mekhi Dukes MD [facility] CPT-66288 Level 3 Est. Patient 12:24:09 CDT Moy Garcia [facility] CPT-17055 Level 3 Est. Patient 14:34:57 CDT Prosper Arenas MD [facility] CPT-53138 Level 3 New Patient 15:44:53 ELECTRIC DEICER INSPECTOR Mekhi Dukes MD [facility] CPT-06321 Level 3 Est. Patient 14:53:34 ELECTRIC DEICER INSPECTOR Prosper Arenas MD [facility] CPT-02881 Level 4 Est. Patient 10:05:41 ELECTRIC DEICER INSPECTOR [facility]oy [facility] CPT-63384 Level 3 Est. Patient 11:18:32 [facility] Level 4 Est. Patient 11:05:10 CDT Moy Garcia [facility] CPT-91337 Level 3 Est. Patient 11:08:27 ELECTRIC DEICER INSPECTOR Moy Garcia [facility] CPT-25913 Level 4 Est. Patient 10:43:59 CDT Prosper Arenas MD [facility] CPT-42880 Level 3 Est. Patient 10:51:19 CDT Moy Garcia [facility] CPT-87834 Level 3 Est. Patient 10:20:31 CDT Moy Garcia [facility] CPT-78930 Level 3 Est. Patient 17:08:45 CDT Moy Garcia [facility] CPT-28524 Level 2 Est. Patient 13:54:36 CDT Augustina Mata APRN [facility] CPT-49662 Level 3 Est. Patient 12:00:42 CDT Prosper Arenas MD [facility]-96156 Level 3 Est. Patient 09:57:28 ELECTRIC DEICER INSPECTOR [facility] CPT-77710 Level 3 Est. Patient 11:41:19 ELECTRIC DEICER INSPECTOR Luxshoaib [facility] CPT-04413 Level 4 Est. Patient 17:07:35 ELECTRIC DEICER INSPECTOR [facility] CPT-45465 Level 5 Est. Patient 14:33:32 CD[facility] CPT-83871 Level 3 Est. Patient 12:25:35 CDT Prosper Arenas MD [facility] Procedures Code Procedure Name Date Entry Date Standard Description CPT-26483 Postop F/U Visit 17:20:20 ELECTRIC DEICER INSPECTOR CPT-G0439 Subsequent Annual Wellness Exam 08:39:41 ELECTRIC DEICER INSPECTOR CPT-000 Give Appropriate Flu Vaccine 10:13:55 ELECTRIC DEICER INSPECTOR CPT-000 Give Immunizations Due 10:13:55 ELECTRIC DEICER INSPECTOR CPT-52518 HGBA1C - LAB USE ONLY 09:42:47 ELECTRIC DEICER INSPECTOR CPT-55601 TPSA - LAB USE ONLY 09:42:46 ELECTRIC DEICER INSPECTOR CPT-79357 Venipuncture Draw Fee 09:42:46 ELECTRIC DEICER INSPECTOR CPT-84227 Port a cath flush 13:33:18 ELECTRIC DEICER INSPECTOR CPT-93038 First Vx - Ix admin for Medicare patients 10:42:57 ELECTRIC DEICER INSPECTOR CPT-94825 Fluzone Preservative Free Intramuscular Suspension 10:42 :57 ELECTRIC DEICER INSPECTOR CPT-G0438 Initial Annual Wellness Exam 10:13:55 ELECTRIC DEICER INSPECTOR CPT-000 Give Appropriate Flu Vaccine 10:44:04 CDT CPT-000 Give Pneumovax 10:44:03 CDT CPT-04550 Port a cath flush 17:04:43 CDT CPT-08557 Prevnar 13 11:19:17 CDT CPT-54243 Fluzone Quadrivalent preservative free (>=3yrs.) 11:19: 17 CDT CPT-77973 Immunization Each Additional Inj 11:19:17 CDT CPT-23885 Immunization Single Admin 11:19:17 CDT CPT-52496 Port a cath flush 13:28:22 CDT CPT-TCMM Transitional Care Mgmt-Moderate 13:40:15 CDT CPT-G0008 Administration of Influenza Virus Vaccine 13:59:20 CDT CPT-09806 Fluzone High-Dose Intramuscular Suspension 13:59:20 CDT CPT-51955 Venipuncture Draw Fee 09:56:19 CDT CPT-OV Office Visit 15:46:10 CDT
--- OUTSIDE RECORDS SUMMARY | 2017-08-25 20:55 | XMS REPORT | Clinical Summary ---
Author Author Admin, [place] Organization [facility] Address Unknown Phone Unavailable Allergies, Adverse Reactions, Alerts Allergy Name Reaction Description Start Date Severity Status Provider ERYTHROMYCIN Stomach cramps Moderate Active Propser Arenas MD CODEINE Critical Active Maliheh Ziglari DIRECTOR DIETETICS DEPARTMENT DARVOCET Critical Active Maliheh Ziglari DIRECTOR DIETETICS DEPARTMENT LEVAQUIN Critical Active Maliheh Ziglari DIRECTOR DIETETICS DEPARTMENT Conditions or Problems Problem Name Problem Code Onset Date Status Entry Date Provider Comment Standard Description Annotate Diabetes, Type 2 250.00 Resolved [place] adviser mellitus 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, type II [...] type II, uncontrolled 250.02 Active Maliheh Ziglari DIRECTOR DIETETICS DEPARTMENT Diabetes mellitus 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, type [...] with hyperglycemia 250.00 Active 03/21 Maliheh Ziglari DIRECTOR DIETETICS DEPARTMENT Diabetes mellitus 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, type II or unspecified type, not stated as uncontrolled half-way use of insulin treatment V58.67 Active Luxiheh Rodrigoglari DIRECTOR DIETETICS DEPARTMENT Long-term (current) use of insulin Diabetes mellitus, type II with hypoglycemia 250.80 Active 07/22 Maliheh Ziglari DIRECTOR DIETETICS DEPARTMENT Diabetes mellitus with other specified manifestations, type II or unspecified type, not stated as uncontrolled 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 Maliheh Ziglari DIRECTOR DIETETICS DEPARTMENT Diabetes mellitus with renal manifestations, type II or unspecified type, not stated as uncontrolled Wellness exam V70.0 Active Dee Palmer APRN Routine general medical examination at a health care facility Fitting and adjustment of vascular catheter V58.81 Active 02/06 Dee Palmer APRN Encounter for fitting and adjustment of vascular catheter Unawareness of hypoglycemia in diabetes mellitus, type II 250.80 Active Maliheh Rodrigoglari DIRECTOR DIETETICS DEPARTMENT Diabetes mellitus with other specified manifestations, type II or unspecified type, not stated as uncontrolled Groin pain, right 789.09 Resolved Mekhi Dukse MD Abdominal pain, other specified site; multiple sites Obesity 278.00 Inactive Prosper Arenas MD Obesity, unspecified Obesity (BMI=30-39.9) 278.00 Active Karrie Langley APRN Obesity, unspecified Cough 786.2 Resolved Tami Miller RN Cough Headache 784.0 Resolved Tami Miller RN Headache Inguinal pain, right 789.09 Resolved Mekhi Dukes MD Abdominal pain, other specified site; multiple sites Erectile Dysfunction Active Ismael Gracia MD Psychosexual dysfunction, hypoactive sexual desire disorder Hepatitis C, acute 070.51 Active Karrie Langley APRN Acute hepatitis C 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 hepatic coma Inguinal hernia 550.90 Resolved Mekhi Dukes MD Unilateral or unspecified inguinal hernia, 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 obstruction or gangrene (not specified as recurrent) Gastritis Inactive Maliheh Ziglari DIRECTOR DIETETICS DEPARTMENT Unspecified gastritis and gastroduodenitis, 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 hemorrhage Cough 786.2 Active Dee Palmer APRN Cough Abdominal pain, right upper quadrant ICD-789.01 Inactive Mekhi Dukes MD Syncope and collapse ICD-780.2 Inactive Mekhi Dukes MD Hypokalemia ICD-276.8 Inactive Mekhi Dukes MD Chest pain, atypical ICD-786.59 Inactive Mekhi Dukes MD Bronchitis ICD-490 Inactive Mekhi Dukes MD Cough ICD-786.2 Inactive Mekhi Dukes MD Vertigo ICD-780.4 Inactive Mekhi Dukes MD Encounter for fitting and adjustment of vascular catheter ICD-V58.81 Inactive Mekhi Dukes MD Diabetes, Type 2 ICD-250.00 Inactive Mekhi Dukes MD Cough ICD-786.2 Inactive Mekhi Dukes MD Headache ICD-784.0 Inactive Mekhi Dukes MD Inguinal pain, right ICD-789.09 Inactive Mekhi Dukes MD Inguinal hernia ICD-550.90 Inactive Mekhi Dukes MD Gastritis Inactive Janis Puente LPN Groin pain, right ICD-789.09 Inactive Mekhi Dukes MD Medication List Medication Instructions Start Date Stop Date Generic Name NDC Status Provider Patient Instruction AZITHROMYCIN 250 MG ORAL TABLET 2 po qd x 1 day, then 1 po qd x 4 days 05/07 AZITHROMYCIN 32113569890 No Longer Active Dee Palmer APRN Active GUAIFENESIN DM 400-20 MG ORAL TABLET 1 pill by mouth twice daily, if needed for cough DEXTROMETHORPHAN-GUAIFENESIN 33926877449 Active Dee Palmer APRN Active PREDNISONE 20 MG ORAL TABLET 2 tabs daily for 4 days, 1 tab daily for 4 days, 1/2 tab daily for 4 days PREDNISONE 34351668450 Active Dee Palmer APRN Active ASPIRIN 81 MG ORAL TABLET 1 po qd ASPIRIN 65900846027 Active Dee Palmer APRN Active CALCIUM 500/D 500-200 MG-UNIT ORAL TABLET one tablet daily CALCIUM CARBONATE-VITAMIN D 97849120642 No Longer Active Dee Palmer APRN Active HYDROCODONE-ACETAMINOPHEN 7.5-325 MG ORAL TABLET 1-2 every 4-6 hrs prn 02/25 HYDROCODONE-ACETAMINOPHEN 62714119864 [facility] 81 MG ORAL TABLET 1 tablet by mouth daily ASPIRIN 56592083987 No Longer Active [facility] Active SIMVASTATIN 80 MG ORAL TABLET 1/2 tablet daily SIMVASTATIN 51412524947 No Longer Active Mekhi Dukes MD Active OMEPRAZOLE 20 MG ORAL CAPSULE DELAYED RELEASE 1 qd OMEPRAZOLE 31442864544 No Longer Active Mekhi Dukes MD Active METOPROLOL TARTRATE 25 MG ORAL TABLET 1/2 tablet twice a day METOPROLOL TARTRATE 75809735299 No Longer Active Mekhi Dukes MD Active LISINOPRIL 5 MG ORAL TABLET 1 daily LISINOPRIL 20823520160 No Longer Active Mekhi Dukes MD Active NOVOLOG FLEXPEN 100 UNIT/ML SUBCUTANEOUS SOLUTION PEN-INJECTOR Take 8 units with each meal, add 1u/50 for blood sugars above 150. INSULIN ASPART 96964830454 Active Moy PARISH Active GABAPENTIN 300 MG ORAL CAPSULE 1 tab BID GABAPENTIN 86699123578 Active Tami Miller RN Active PREDNISONE 20 MG ORAL TABLET Take 2 daily for 3 days and then 1 daily for 3 days PREDNISONE 27835604040 No Longer Active Malcarissaeh Ziglari DIRECTOR DIETETICS DEPARTMENT Active BENZONATATE 200 MG ORAL CAPSULE Take 1 tablet 3 times a day as needed for cough BENZONATATE 48148248824 No Longer Active Prosper Arenas MD Active HYDROCHLOROTHIAZIDE 25 MG ORAL TABLET 1 tablet by mouth daily HYDROCHLOROTHIAZIDE 94068279380 No Longer Active Prosper Arenas MD Active ACCU-CHEK JOANNA PLUS IN VITRO STRIP check blood sugars 5x a day, before each meal and bedtime and 15 minutes after treating a low blood. sugar GLUCOSE BLOOD 78759183251 Active Malpapo Wallaceglari DIRECTOR DIETETICS DEPARTMENT Active LANTUS SOLOSTAR 100 UNIT/ML SUBCUTANEOUS SOLUTION PEN-INJECTOR Take 40 units at 7-8pm daily INSULIN GLARGINE 14190048522 Active Maliheh Ziglari DIRECTOR DIETETICS DEPARTMENT Active MECLIZINE HCL 25 MG ORAL TABLET 1 daily needed for dizziness 2015 MECLIZINE HCL 95179259289 No Longer Active Maliheh Ziglari DIRECTOR DIETETICS DEPARTMENT Active BENZONATATE 200 MG ORAL CAPSULE 1 tab, 2-3 times a day BENZONATATE 25437627103 No Longer Active Maliheh Ziglari DIRECTOR DIETETICS DEPARTMENT Active HALOPERIDOL 0.5 MG ORAL TABLET one tablet three times a day HALOPERIDOL 77013153543 No Longer Active Maliheh Ziglari DIRECTOR DIETETICS DEPARTMENT Active TRAZODONE HCL 50 MG ORAL TABLET three tablets at bed time TRAZODONE HCL 22688817494 No Longer Active Maleh Ziglari DIRECTOR DIETETICS DEPARTMENT Active REVLIMID 25 MG ORAL CAPSULE one capsule daily for 21 days then off for 7 days LENALIDOMIDE 88611505081 No Longer Active Maliheh Ziglari DIRECTOR DIETETICS DEPARTMENT Active ZITHROMAX Z-EDDIE 250 MG ORAL TABLET 2 today, then 1 daily for 4 days AZITHROMYCIN 50876700666 No Longer Active Augustina Mata BPO SPECIALIST Active NOVOLIN R RELION 100 UNIT/ML INJECTION SOLUTION 30- 40 units each meal sliding scale INSULIN REGULAR HUMAN 92562939112 No Longer Active Moy Ziglari DIRECTOR DIETETICS DEPARTMENT Active HYDROCODONE-ACETAMINOPHEN 5-500 MG ORAL TABLET 1-2 FOUR TIMES A DAY, PRN 2010 HYDROCODONE-ACETAMINOPHEN 39253171729 No Longer Active Prosper Arenas MD Active DOXYCYCLINE HYCLATE 100 MG ORAL CAPSULE take one capsule by mouth twice daily for ten days DOXYCYCLINE HYCLATE 61625065124 No Longer Active Mekhi Dukes MD Active DOXYCYCLINE HYCLATE 100 MG ORAL CAPSULE take one capsule by mouth twice daily for ten days DOXYCYCLINE HYCLATE 100 MG ORAL CAPSULE 3256711 DOXYCYCLINE HYCLATE Inactive HYDROCODONE-ACETAMINOPHEN 5-500 MG ORAL TABLET 1-2 FOUR TIMES A DAY, PRN 2010 HYDROCODONE-ACETAMINOPHEN 5-500 MG ORAL TABLET 137734 HYDROCODONE-ACETAMINOPHEN Inactive NOVOLIN R RELION 100 UNIT/ML INJECTION SOLUTION 30- 40 units each meal sliding scale NOVOLIN R RELION 100 UNIT/ML INJECTION SOLUTION INSULIN REGULAR HUMAN Inactive ZITHROMAX Z-EDDIE 250 MG ORAL TABLET 2 today, then 1 daily for 4 days ZITHROMAX Z-EDDIE 250 MG ORAL TABLET 566124 AZITHROMYCIN Inactive REVLIMID 25 MG ORAL CAPSULE one capsule daily for 21 days then off for 7 days REVLIMID 25 MG ORAL CAPSULE LENALIDOMIDE Inactive TRAZODONE HCL 50 MG ORAL TABLET three tablets at bed time TRAZODONE HCL 50 MG ORAL TABLET 067711 TRAZODONE HCL Inactive HALOPERIDOL 0.5 MG ORAL TABLET one tablet three times a day HALOPERIDOL 0.5 MG ORAL TABLET 871341 HALOPERIDOL Inactive BENZONATATE 200 MG ORAL CAPSULE 1 tab, 2-3 times a day BENZONATATE 200 MG ORAL CAPSULE 246916 BENZONATATE Inactive MECLIZINE HCL 25 MG ORAL TABLET 1 daily needed for dizziness 2015 MECLIZINE HCL 25 MG ORAL TABLET 278884 MECLIZINE HCL Inactive HYDROCHLOROTHIAZIDE 25 MG ORAL TABLET 1 tablet by mouth daily HYDROCHLOROTHIAZIDE 25 MG ORAL TABLET 955323 HYDROCHLOROTHIAZIDE Inactive PREDNISONE 20 MG ORAL TABLET Take 2 daily for 3 days and then 1 daily for 3 days PREDNISONE 20 MG ORAL TABLET 157455 PREDNISONE Inactive LISINOPRIL 5 MG ORAL TABLET 1 daily LISINOPRIL 5 MG ORAL TABLET 953510 LISINOPRIL Inactive METOPROLOL TARTRATE 25 MG ORAL TABLET 1/2 tablet twice a day METOPROLOL TARTRATE 25 MG ORAL TABLET 494688 METOPROLOL TARTRATE Inactive OMEPRAZOLE 20 MG ORAL CAPSULE DELAYED RELEASE 1 qd OMEPRAZOLE 20 MG ORAL CAPSULE DELAYED RELEASE 411682 OMEPRAZOLE Inactive SIMVASTATIN 80 MG ORAL TABLET 1/2 tablet daily SIMVASTATIN 80 MG ORAL TABLET 008596 SIMVASTATIN Inactive ASPIRIN 81 MG ORAL TABLET 1 tablet by mouth daily ASPIRIN 81 MG ORAL TABLET 823170 ASPIRIN Inactive CALCIUM 500/D 500-200 MG-UNIT ORAL TABLET one tablet daily CALCIUM 500/D 500-200 MG-UNIT ORAL TABLET CALCIUM CARBONATE-VITAMIN D Inactive BENZONATATE 200 MG ORAL CAPSULE Take 1 tablet 3 times a day as needed for cough BENZONATATE 200 MG ORAL CAPSULE 234226 BENZONATATE Inactive AZITHROMYCIN 250 MG ORAL TABLET 2 po qd x 1 day, then 1 po qd x 4 days 05/07 AZITHROMYCIN 250 MG ORAL TABLET 259844 AZITHROMYCIN Inactive Immunizations Vaccine Administration Date Value Standard [...] temperature weight E&M 191.5 [lb_av] Weight Measured Diagnostic Results Date Name Value Unit Range Description Chart Maintenance: outside lab added to flowsheet - Urinalysis microalbumin/total urine volume 5 mg/L Chart Maintenance: Outside labs entered on Flowsheet - Hematology leukocyte count, blood 4.75 10*3/mm3 hemoglobin, blood 20.2 g/dL hematocrit, blood 57.9 % platelet count 103 10*3/mm3 Lab Report: CBC W/DIFF, Comp. Metabolic Panel - Chemistry sodium, serum 135 mmol/L 350-834 8243/04/10 carbon dioxide, venous blood 26.1 mmol/L 21.0-32.0 potassium, serum 4.2 mmol/L 3.5-5.2 chloride, serum 100 mmol/L 98-107 blood glucose 293 mg/dL 65-110 urea nitrogen, blood 18 mg/dL 7-18 creatinine, serum 2.06 mg/dL 0.60-1.30 alanine aminotransferase (SGPT), serum 59 U/L 12-78 aspartate aminotransferase (SGOT), serum 47 U/L 15-37 calcium, serum 8.6 mg/dL 8.5-10.1 bilirubin, serum, total 0.30 mg/dL 0.00-1.00 Lab Report: CBC W/DIFF, Comp. Metabolic Panel - Hematology leukocyte count, blood 4.8 10^3/MM^3 10*3/mm3 4.6-10.2 neutrophils as percent of blood leukocytes 36.7 % 42.2-75.2 monocytes as percent of blood leukocytes 9.0 % 1.7-9.3 lymphocytes as percent of blood leukocytes 49.8 % 20.5-51.1 erythrocyte (RBC) count 4.41 10^6/MM^3 10*6/mm3 4.50-6.50 hemoglobin, blood 14.6 g/dL 14.0-18.0 hematocrit, blood 43.3 % 40.0-54.0 mean corpuscular volume, RBC 98 fL 80-97 mean corpuscular hemoglobin, RBC 33.1 pg 27.0-31.2 mean corpuscular hemoglobin concentration, RBC 33.7 G/DL % 31.8- 35.4 red blood cell distribution width 14.2 % 11.6-14.8 platelet count 200 10^3/MM^3 10*3/mm3 142-424 Lab Report: Comp. Metabolic Panel, CBC W/DIFF - Chemistry sodium, serum 137 mmol/L 348-273 7185/08/16 carbon dioxide, venous blood 26.3 mmol/L 21.0-32.0 [...] LABS - Chemistry cholesterol, serum 115 mg/dL 796-034 0784/08/18 triglyceride, serum, fasting 89 mg/dL 30-200 HDL cholesterol, serum 46 mg/dL 32-60 LDL cholesterol, serum 51 mg/dL 0-130 blood glucose 104 mg/dL 65-110 Lab Report: SADA INFLUENZA A/B - Toxicology [...] mg/dL Encounters Code Encounter Date Provider Facility CPT-96449 Level 3 Est. Patient 14:09:25 AUTO BRAKE TECHNICIAN Dee Palmer APRN [facility] CPT-07008 Level 3 Est. Patient 10:53:32 AUTO BRAKE TECHNICIAN Moy Garcia [facility] CPT-05813 Level 3 Est. Patient 17:11:55 AUTO BRAKE TECHNICIAN Ismael Gracia MD [facility] CPT-80949 Level 4 Est. Patient 16:29:19 CDT Mekhi Dukes MD [facility] CPT-77639 Level 3 New Patient 17:05:24 CDT Ismael Gracia MD [facility] CPT-75665 Level 2 Est. Patient 15:43:17 CDT Mekhi Dukes MD [facility] CPT-75124 Level 3 Est. Patient 09:30:37 CDT Moy Garcia [facility] CPT-08462 Level 3 Est. Patient 10:00:14 CDT Mekhi Dukes MD [facility] CPT-24015 Level 3 Est. Patient 12:24:09 CDT Luxpapo Garcia [facility] CPT-47133 Level 3 Est. Patient 14:34:57 CDT Prosper Arenas MD [facility] CPT-05873 Level 3 New Patient 15:44:53 AUTO BRAKE TECHNICIAN Mekhi Dukes MD [facility] CPT-82704 Level 3 Est. Patient 14:53:34 AUTO BRAKE TECHNICIAN Prosper Arenas MD [facility] CPT-43600 Level 4 Est. Patient 10:05:41 AUTO BRAKE TECHNICIAN Moy Garcia [facility] CPT-31007 Level 3 Est. Patient 11:18:32 CDT Moy Garcia [facility] CPT-10182 Level 4 Est. Patient 11:05:10 CDT Luxpapo Garcia [facility] CPT-66786 Level 3 Est. Patient 11:08:27 AUTO BRAKE TECHNICIAN Moy Garcia [facility] -[facility] CPT-85876 Level 4 Est. Patient 10:43:59 CDT Prosper Arenas MD [facility] CPT-22566 Level 3 Est. Patient 10:51:19 CDT Luxshoaib Garcia [facility] CPT-64792 Level 3 Est. Patient 10:20:31 CDT [facility]-44684 Level 3 Est. Patient 17:08:45 CDT [facility] CPT-34309 Level 2 Est. Patient 13:54:36 CDT Augustina Juan Carlosann BESSY [facility] CPT-96373 Level 3 Est. Patient 12:00:42 CDT Prosper Arenas MD [facility] CPT-04171 Level 3 Est. Patient 09:57:28 AUTO BRAKE TECHNICIAN [facility] CPT-81494 Level 3 Est. Patient 11:41:19 AUTO BRAKE TECHNICIAN [facility] CPT-97191 Level 4 Est. Patient 17:07:35 AUTO BRAKE TECHNICIAN [facility] CPT-66453 Level 5 Est. Patient 14:33:32 CDT [facility] CPT-27222 Level 3 Est. Patient 12:25:35 CDT Prosper Arenas MD [facility] Procedures Code Procedure Name Date Entry Date Standard Description CPT-38336 Chest, 2 views 14:17:20 AUTO BRAKE TECHNICIAN CPT-16180 Postop F/U Visit 14:44:45 AUTO BRAKE TECHNICIAN CPT-99071 Postop F/U Visit 17:20:20 AUTO BRAKE TECHNICIAN CPT-G0439 [facility] Annual Wellness Exam 08:39:41 AUTO BRAKE TECHNICIAN CPT-000 Give Appropriate Flu Vaccine 10:13:55 AUTO BRAKE TECHNICIAN CPT-000 Give Immunizations Due 10:13:55 AUTO BRAKE TECHNICIAN CPT-38165 HGBA1C - LAB USE ONLY 09:42:47 AUTO BRAKE TECHNICIAN CPT-24997 TPSA - LAB USE ONLY 09:42:46 AUTO BRAKE TECHNICIAN CPT-51755 Venipuncture Draw Fee 09:42:46 AUTO BRAKE TECHNICIAN CPT-34219 Port a cath flush 13:33:18 AUTO BRAKE TECHNICIAN CPT-10865 First Vx - Ix admin for Medicare patients 10:42:57 AUTO BRAKE TECHNICIAN CPT-69958 Fluzone Preservative Free Intramuscular Suspension 10:42 :57 AUTO BRAKE TECHNICIAN CPT-G0438 Initial Annual Wellness Exam 10:13:55 AUTO BRAKE TECHNICIAN CPT-000 Give Appropriate Flu Vaccine 10:44:04 CDT CPT-000 Give Pneumovax 10:44:03 CDT CPT-67204 Port a cath flush 17:04:43 CDT CPT-86116 Prevnar 13 11:19:17 CDT CPT-09679 Fluzone Quadrivalent preservative free (>=3yrs.) 11:19: 17 CDT CPT-36750 Immunization Each Additional Inj 11:19:17 CDT CPT-28084 Immunization Single Admin 11:19:17 CDT CPT-77483 Port a cath flush 13:28:22 CDT CPT-TCMM Transitional Care Mgmt-Moderate 13:40:15 CDT CPT-G0008 Administration of Influenza Virus Vaccine 13:59:20 CDT CPT-82595 Fluzone High-Dose Intramuscular Suspension 13:59:20 CDT CPT-53677 Venipuncture Draw Fee 09:56:19 CDT CPT-OV Office Visit 15:46:10 CDT
--- OUTSIDE RECORDS SUMMARY | 2017-08-25 20:55 | XMS REPORT | Clinical Summary ---
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 Maliheh Ziglari NETWORK TECHNICAL ANALYST Diabetes mellitus 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, type II or unspecified type, uncontrolled Chest pain, atypical 786.59 Active Prosper Arenas MD Other chest pain Bronchitis 490 Active Prosper Arenas MD Bronchitis, not specified as acute or chronic Multiple myeloma 203.00 Active Gena Montoya RMA Multiple myeloma 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 having achieved remission Hypercalcemia 275.42 Active Gena Montoya RMA Hypercalcemia Cough 786.2 Active Augustina Adolfo DOHERTY Cough Medication List Medication Instructions Start Date Stop Date Generic Name NDC Status Provider Patient Instruction REVLIMID 25 MG CAPS one capsule daily for 21 days then off for 7 days 2014 LENALIDOMIDE 75645525399 No Longer Active Maliheh Ziglari NETWORK TECHNICAL ANALYST Active ACCU-CHEK JOANNA PLUS STRP check blood sugars 3x a day GLUCOSE BLOOD 78816694481 Active Maliheh Ziglari NETWORK TECHNICAL ANALYST Active NOVOLOG FLEXPEN 100 UNIT/ML SOPN Take 15 units with each meal, add 2u/50 for blood sugars above 150 INSULIN ASPART 40136881039 Active Maliheh Ziglari NETWORK TECHNICAL ANALYST Active ZITHROMAX Z-EDDIE 250 MG TABS 2 today, then 1 daily for 4 days 2014 AZITHROMYCIN 92458477207 No Longer Active Augustina Rangelann DOHERTY Active BENZONATATE 200 MG CAPS 1 tab, 2-3 times a day BENZONATATE 24661902221 Active Prosper Arenas MD Active LANTUS SOLOSTAR 100 UNIT/ML SOLN 30 units at 4-5pm daily INSULIN GLARGINE 88986008951 Active Maliheh Ziglari NETWORK TECHNICAL ANALYST Active NOVOLIN R RELION 100 UNIT/ML INJ SOLN 30- 40 units each meal sliding scale INSULIN REGULAR HUMAN 46379271838 No Longer Active Maliheh Ziglari NETWORK TECHNICAL ANALYST Active LISINOPRIL 5 MG TABS 1 daily LISINOPRIL 21573308134 Active Prosper Arenas MD Active CALCIUM 500/D 500-200 MG-UNIT TABS one tablet daily CALCIUM CARBONATE- VITAMIN D 42091074733 Active Prosper Arenas MD Active HYDROCHLOROTHIAZIDE 25 MG TABS 1 tablet by mouth daily HYDROCHLOROTHIAZIDE 54797751304 Active Prosper Arenas MD Active HYDROCODONE-ACETAMINOPHEN 5-500 MG TABS 1-2 FOUR TIMES A DAY, PRN HYDROCODONE-ACETAMINOPHEN 01191224939 No Longer Active Prosper Arenas MD Active TRAZODONE HCL 50 MG TAB three tablets at bed time TRAZODONE HCL 74168435703 Active Prosper Arenas MD Active SIMVASTATIN 80 MG TABS 1/2 tablet daily SIMVASTATIN 56903778662 Active Prosper Arenas MD Active METOPROLOL TARTRATE 25 MG TABS 1/2 tablet twice a day METOPROLOL TARTRATE 09263957589 Active Prosper Arenas MD Active HALOPERIDOL 0.5 MG TABS one tablet three times a day HALOPERIDOL 63257572135 Active Prosper Arenas MD Active ASPIRIN 81 MG TAB 1 tablet by mouth daily ASPIRIN 95966374612 Active Prosper Arenas MD Active OMEPRAZOLE 20 MG CPDR 1 qd OMEPRAZOLE 53620955952 Active DARCIE Miller Active DOXYCYCLINE HYCLATE 100 MG CAPS take one capsule by mouth twice daily for ten days DOXYCYCLINE HYCLATE 80585432154 No Longer Active Mekhi Dukes MD Active DOXYCYCLINE HYCLATE 100 MG CAPS take one capsule by mouth twice daily for ten days DOXYCYCLINE HYCLATE 100 MG CAPS 4615640 DOXYCYCLINE HYCLATE Inactive HYDROCODONE-ACETAMINOPHEN 5-500 MG TABS [...] days 2014 ZITHROMAX Z-EDDIE 250 MG TABS 0930936 AZITHROMYCIN Inactive REVLIMID 25 MG CAPS one capsule daily for 21 days then off for 7 days 2014 REVLIMID 25 MG CAPS LENALIDOMIDE Inactive Immunizations Vaccine Administration Date Value Standard [...] BP chavez blood pressure, systolic - 8480-6 112 mm[Hg] BP sys pulse rate E&M - 8867-4 82 /min Heart rate weight E&M - 3141-9 176 [lb_av] Weight Measured blood pressure, diastolic - 8462-4 80 mm[Hg] BP chavez blood pressure, systolic - 8480-6 140 mm[Hg] BP sys pulse rate E&M - 8867-4 100 /min Heart rate weight E&M - 3141-9 170 [lb_av] Weight Measured blood pressure, diastolic - 8462-4 60 mm[Hg] BP chavez blood pressure, systolic - 8480-6 120 mm[Hg] BP sys pulse rate E&M - 8867-4 72 /min Heart rate weight E&M - 3141-9 162 [lb_av] Weight Measured blood pressure, diastolic - 8462-4 70 mm[Hg] BP chavez blood pressure, systolic - 8480-6 114 mm[Hg] BP sys pulse rate E&M - 8867-4 62 /min Heart rate temperature E&M 97.5 [degF] Body temperature weight E&M - 3141-9 165 [lb_av] Weight Measured blood pressure, diastolic - 8462-4 68 mm[Hg] BP chavez blood pressure, systolic - 8480-6 102 mm[Hg] BP sys height E&M - 8302-2 66 [in_us] Bdy height pulse rate E&M - 8867-4 58 /min Heart rate temperature E&M 97.8 [degF] Body temperature weight E&M - 3141-9 166.6 [lb_av] Weight Measured blood pressure, diastolic - 8462-4 69 mm[Hg] BP chavez blood pressure, systolic - 8480-6 112 mm[Hg] BP sys height E&M - 8302-2 66 [in_us] Bdy height pulse rate E&M - 8867-4 88 /min Heart rate temperature E&M 97.3 [degF] Body temperature weight E&M - 3141-9 166 [lb_av] Weight Measured Diagnostic Results Date Name Value Unit Range Description Chart Maintenance: Outside labs entered on flowsheet - Chemistry sodium, serum 134 mmol/L potassium, serum 3.4 mmol/L blood glucose 268 mg/dL creatinine, serum 1.87 mg/dL aspartate aminotransferase (SGOT), serum 26 U/L alanine aminotransferase (SGPT), serum 44 U/L alkaline phosphatase, serum 110 U/L sodium, serum 139 mmol/L potassium, serum 3.4 [...] U/L Chart Maintenance: Outside labs entered on flowsheet - Hematology leukocyte count, blood 5.1 10*3/mm3 hemoglobin, blood 14.7 g/dL platelet count 190 10*3/mm3 leukocyte count, blood 4.5 10*3/mm3 hemoglobin, blood 15.1 g/dL platelet count 158 10*3/mm3 leukocyte count, blood 5.3 10*3/mm3 hemoglobin, blood 14.0 g/dL platelet count 240 10*3/mm3 Lab Report: Basic Metabolic Panel - Chemistry sodium, serum 137 mmol/L 428-647 4016/08/22 potassium, serum 4.0 mmol/L 3.5-5.2 chloride, serum 100 mmol/L 98-107 carbon dioxide, venous blood 27.9 mmol/L 21.0-32.0 blood glucose 109 mg/dL 65-110 calcium, serum 9.0 mg/dL 8.5-10.1 urea nitrogen, blood 15 mg/dL 7-18 creatinine, serum 2.00 mg/dL 0.60-1.30 Lab Report: Basic Metabolic Panel, HGBA1C - Chemistry sodium, serum 134 mmol/L 961-541 7373/01/27 potassium, serum 4.1 mmol/L 3.5-5.2 chloride, serum 96 mmol/L 98-107 carbon dioxide, venous blood 35.1 mmol/L 21.0-32.0 blood glucose 346 mg/dL 65-110 calcium, serum 8.4 mg/dL 8.5-10.1 urea nitrogen, blood 18 mg/dL 7-18 creatinine, serum 2.00 mg/dL 0.60-1.30 hemoglobin A1C, blood, as % of total hemoglobin 8.4 % 4.3-6.0 Lab Report: CBC W/DIFF, Comp. Metabolic Panel - Chemistry sodium, serum 137 mmol/L 309-597 8836/01/21 potassium, serum 4.1 mmol/L 3.5-5.2 chloride, serum 99 mmol/L 98-107 carbon dioxide, venous blood 30.9 mmol/L 21.0-32.0 blood glucose 303 mg/dL 65-110 urea nitrogen, blood 19 mg/dL 7-18 creatinine, serum 2.00 mg/dL 0.60-1.30 alanine aminotransferase (SGPT), serum 84 U/L - aspartate aminotransferase (SGOT), serum 41 U/L 15-37 calcium, serum 7.8 mg/dL 8.5-10.1 bilirubin, serum, total 0.50 mg/dL 0.00-1.00 sodium, serum 131 mmol/L 458-006 4898/03/18 potassium, serum 4.4 mmol/L 3.5-5.2 chloride, serum 95 mmol/L 98-107 carbon dioxide, venous blood 19.0 mmol/L 21.0-32.0 blood glucose 297 mg/dL 65-110 urea nitrogen, blood 19 mg/dL 7-18 creatinine, serum 1.70 mg/dL 0.60-1.30 alanine aminotransferase (SGPT), serum 184 U/L aspartate aminotransferase (SGOT), serum 177 U/L - calcium, serum 7.8 mg/dL 8.5-10.1 bilirubin, serum, total 0.50 mg/dL 0.00-1.00 sodium, serum 135 mmol/L 702-191 8856/11/26 potassium, serum 4.4 mmol/L 3.5-5.2 chloride, serum 100 mmol/L 98-107 carbon dioxide, venous blood 30.7 mmol/L 21.0-32.0 blood glucose 251 mg/dL 65-110 urea nitrogen, blood 15 mg/dL 7-18 creatinine, serum 1.60 mg/dL 0.60-1.30 alanine aminotransferase (SGPT), serum 48 U/L aspartate aminotransferase (SGOT), serum 30 U/L 15-37 calcium, serum 8.7 mg/dL 8.5-10.1 bilirubin, serum, total 0.30 mg/dL 0.00-1.00 Lab Report: CBC W/DIFF, Comp. Metabolic Panel - Hematology leukocyte count, blood 4.3 10^3/MM^3 10*3/mm3 4.6-10.2 neutrophils as percent of blood leukocytes 40.0 % 42.2-75.2 monocytes as percent of blood leukocytes 9.2 % 1.7-9.3 lymphocytes as percent of blood leukocytes 47.0 % 20.5-51.1 erythrocyte (RBC) count 4.69 10^6/MM^3 10*6/mm3 4.69-6.13 hemoglobin, blood 14.6 g/dL 13.5-17.5 hematocrit, blood 43.4 % 41.0-53.0 mean corpuscular volume, RBC 92 fL 80-97 mean corpuscular hemoglobin, RBC 31.1 pg 27.0-31.2 mean corpuscular hemoglobin concentration, RBC 33.7 G/DL % 31.8- 35.4 red blood cell distribution width 15.7 % 11.6-14.8 platelet count 172 10^3/MM^3 10*3/mm3 149-873 5463/01/21 leukocyte count, blood 6.3 10^3/MM^3 10*3/mm3 4.6-10.2 [...] % 11.6-14.8 platelet count 137 10^3/MM^3 10*3/mm3 461-475 8025/03/18 leukocyte count, blood 4.8 10^3/MM^3 10*3/mm3 4.6-10.2 [...] 181 10^3/MM^3 10*3/mm3 142-424 Lab Report: CBC, HGBA1C, MICROALBUMIN - Chemistry albumin/creatinine ratio, urine 30 - 300 mg/g mg/g{creat} 0-29 hemoglobin A1C, blood, as % of total hemoglobin 9.2 % 4.3-6.0 Lab Report: CBC, HGBA1C, MICROALBUMIN - Hematology leukocyte count, blood 4.7 10^3/MM^3 10*3/mm3 4.6-10.2 erythrocyte (RBC) count 4.54 10^6/MM^3 10*6/mm3 4.69-6.13 hemoglobin, blood 14.4 g/dL 13.5-17.5 hematocrit, blood 42.9 % 41.0-53.0 mean corpuscular volume, RBC 95 fL 80-97 mean corpuscular hemoglobin, RBC 31.7 pg 27.0-31.2 mean corpuscular hemoglobin concentration, RBC 33.5 G/DL % 31.8- 35.4 red blood cell distribution width 15.0 % 11.6-14.8 platelet count 135 10^3/MM^3 10*3/mm3 142-424 Lab Report: CBC, HGBA1C, MICROALBUMIN - Lab microalbumin, urine 30 0-19 Lab Report: Comp. Metabolic Panel, Lipid Panel, Prostatic Specific Ag - Chemistry sodium, serum 131 mmol/L 004-606 7540/10/13 potassium, serum 3.6 mmol/L 3.5-5.2 chloride, serum 92 mmol/L 98-107 carbon dioxide, venous blood 30.5 mmol/L 21.0-32.0 blood glucose 489 mg/dL 65-110 urea nitrogen, blood 19 mg/dL 7-18 creatinine, serum 1.90 mg/dL 0.60-1.30 alanine aminotransferase (SGPT), serum 62 U/L 12-78 aspartate aminotransferase (SGOT), serum 34 U/L 15-37 alkaline phosphatase, serum 148 U/L 50-136 calcium, serum 9.0 mg/dL 8.5-10.1 bilirubin, serum, total 0.60 mg/dL 0.00-1.00 cholesterol, serum 98 mg/dL 437-556 2733/10/13 triglyceride, serum, fasting 125 mg/dL 30-200 HDL cholesterol, serum 28 mg/dL 32-96 LDL cholesterol, serum 45 mg/dL 0-130 prostate specific antigen 0.30 ng/mL 0.00-4.00 Lab Report: HGBA1C - Chemistry hemoglobin A1C, blood, as % of total hemoglobin 7.2 % 4.3-6.0 Office Visit: Diabetes Visit - Chemistry cholesterol, [...] 35 mg/dL LDL target level 100 mg/dL home glucose monitor utilized Yes cholesterol, target level 200 mg/dL triglyceride, target level 200 mg/dL HDL cholesterol, serum, target level 35 mg/dL LDL target level 100 mg/dL cholesterol, target level 200 mg/dL triglyceride, target level 200 mg/dL HDL cholesterol, serum, target level 35 mg/dL LDL target level 100 mg/dL Office Visit: Followup on Abdominal Pain - Chemistry cholesterol, target level 200 mg/dL triglyceride, target level 200 mg/dL HDL cholesterol, serum, target level 35 mg/dL LDL target level 100 mg/dL Encounters Code Encounter Date Provider Facility CPT-44552 Level 3 Est. Patient 10:20:31 CDT Moy Garcia [facility] CPT-47480 Level 3 Est. Patient 17:08:45 CDT Moy Garcia [facility] CPT-70043 Level 2 Est. Patient 13:54:36 CDT Augustina Mata APRN [facility] CPT-62043 Level 3 Est. Patient 12:00:42 CDT Prosper Arenas MD [facility] CPT-55298 Level 3 Est. Patient 09:57:28 APARTMENT MAINTENANCE TECHNICIAN Moy Garcia [facility] CPT-50091 Level 3 Est. Patient 11:41:19 APARTMENT MAINTENANCE TECHNICIAN [facility] CPT-37468 Level 4 Est. Patient 17:07:35 APARTMENT MAINTENANCE TECHNICIAN [facility] CPT-12104 Level 5 Est. Patient 14:33:32 CDT [facility] CPT-29072 Level 3 Est. Patient 12:25:35 CDT Prosper Arenas MD [facility] Procedures Code Procedure Name Date Entry Date Standard Description CPT-46045 Port a cath flush 13:28:22 CDT CPT-TCMM Transitional Care Mgmt-Moderate 13:40:15 CDT CPT-G0008 Administration of Influenza Virus Vaccine 13:59:20 CDT CPT-24528 Fluzone High-Dose Intramuscular Suspension 13:59:20 CDT CPT-60923 Venipuncture Draw Fee 09:56:19 CDT CPT-OV Office Visit 15:46:10 CDT
--- OUTSIDE RECORDS SUMMARY | 2017-08-25 20:56 | XMS REPORT | Clinical Summary ---
Author Author Admin, [place] Organization [facility] Address Unknown Phone Unavailable Allergies, Adverse Reactions, Alerts Allergy Name Reaction Description Start Date Severity Status Provider ERYTHROMYCIN Stomach cramps Moderate Active Prosper Arenas MD CODEINE Critical Active Maliheh Ziglari HOME APPLIANCE INSTALLER DARVOCET Critical Active Maliheh Ziglari HOME APPLIANCE INSTALLER LEVAQUIN Critical Active Maliheh Ziglari HOME APPLIANCE INSTALLER Conditions or Problems Problem Name Problem Code Onset Date Status Entry Date Provider Comment Standard Description Annotate Diabetes, Type 2 250.00 Resolved Tami Miller director organizational mellitus 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, type II [...] type II, uncontrolled 250.02 Active Maliheh Rodrigoglari HOME APPLIANCE INSTALLER Diabetes mellitus 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, type [...] with hyperglycemia 250.00 Active 03/21 Maliheh Ziglari HOME APPLIANCE INSTALLER Diabetes mellitus 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, type II or unspecified type, not stated as uncontrolled FPC use of insulin treatment V58.67 Active Luxiheh Rodrigoglari HOME APPLIANCE INSTALLER Long-term (current) use of insulin Diabetes mellitus, type II with hypoglycemia 250.80 Active 07/22 Maliheh Ziglari HOME APPLIANCE INSTALLER Diabetes mellitus with other specified manifestations, type II or unspecified type, not stated as uncontrolled 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 Maliheh Ziglari HOME APPLIANCE INSTALLER Diabetes mellitus with renal manifestations, type II or unspecified type, not stated as uncontrolled Wellness exam V70.0 Active Dee Palmer APRN Routine general medical examination at a health care facility Fitting and adjustment of vascular catheter V58.81 Active 02/06 Dee Palmer APRN Encounter for fitting and adjustment of vascular catheter Unawareness of hypoglycemia in diabetes mellitus, type II 250.80 Active Maliheh Ziglari HOME APPLIANCE INSTALLER Diabetes mellitus with other specified manifestations, type [...] 1-2 every 4-6 hrs prn 02/25 HYDROCODONE-ACETAMINOPHEN 90541744714 Active Marina Messina APRN Active ASPIRIN 81 MG ORAL TABLET 1 tablet by mouth daily ASPIRIN 71454274345 No Longer Active Marina Messina APRN Active SIMVASTATIN 80 MG ORAL TABLET 1/2 tablet daily SIMVASTATIN 57349459846 No Longer Active Mekhi Dukes MD Active OMEPRAZOLE 20 MG ORAL CAPSULE DELAYED RELEASE 1 qd OMEPRAZOLE 11424727224 No Longer Active Mekhi Dukes MD Active METOPROLOL TARTRATE 25 MG ORAL TABLET 1/2 tablet twice a day METOPROLOL TARTRATE 16453139137 No Longer Active Mekhi Dukes MD Active LISINOPRIL 5 MG ORAL TABLET 1 daily LISINOPRIL 46402107495 No Longer Active Mekhi Dukes MD Active NOVOLOG FLEXPEN 100 UNIT/ML SUBCUTANEOUS SOLUTION PEN-INJECTOR Take 8 units with each meal, add 1u/50 for blood sugars above 150. INSULIN ASPART 94031550486 Active Moy PARISH Active GABAPENTIN 300 MG ORAL CAPSULE 1 tab BID GABAPENTIN 25228920398 Active Tami Miller RN Active PREDNISONE 20 MG ORAL TABLET Take 2 daily for 3 days and then 1 daily for 3 days PREDNISONE 54149878908 No Longer Active Moy PARISH Active BENZONATATE 200 MG ORAL CAPSULE Take 1 tablet 3 times a day as needed for cough BENZONATATE 39747905886 No Longer Active Prosper Arenas MD Active HYDROCHLOROTHIAZIDE 25 MG ORAL TABLET 1 tablet by mouth daily HYDROCHLOROTHIAZIDE 60979239124 No Longer Active Prosper Arenas MD Active ACCU-CHEK JOANNA PLUS IN VITRO STRIP check blood sugars 5x a day, before each meal and bedtime and 15 minutes after treating a low blood. sugar GLUCOSE BLOOD 25436476985 Active Maliheh Ziglari HOME APPLIANCE INSTALLER Active LANTUS SOLOSTAR 100 UNIT/ML SUBCUTANEOUS SOLUTION PEN-INJECTOR Take 40 units at 7-8pm daily INSULIN GLARGINE 00119428123 Active Maliheh Ziglari HOME APPLIANCE INSTALLER Active MECLIZINE HCL 25 MG ORAL TABLET 1 daily needed for dizziness 2015 MECLIZINE HCL 69203964718 No Longer Active Maliheh Ziglari HOME APPLIANCE INSTALLER Active BENZONATATE 200 MG ORAL CAPSULE 1 tab, 2-3 times a day BENZONATATE 84169408460 No Longer Active Maliheh Ziglari HOME APPLIANCE INSTALLER Active HALOPERIDOL 0.5 MG ORAL TABLET one tablet three times a day HALOPERIDOL 67452117419 No Longer Active Maliheh Ziglari HOME APPLIANCE INSTALLER Active TRAZODONE HCL 50 MG ORAL TABLET three tablets at bed time TRAZODONE HCL 97905848975 No Longer Active Maliheh Ziglari HOME APPLIANCE INSTALLER Active REVLIMID 25 MG ORAL CAPSULE one capsule daily for 21 days then off for 7 days LENALIDOMIDE 07570886426 No Longer Active Maliheh Ziglari HOME APPLIANCE INSTALLER Active ZITHROMAX Z-EDDIE 250 MG ORAL TABLET 2 today, then 1 daily for 4 days AZITHROMYCIN 53539776113 No Longer Active Augustina Mata APRN Active NOVOLIN R RELION 100 UNIT/ML INJECTION SOLUTION 30- 40 units each meal sliding scale INSULIN REGULAR HUMAN 63311973200 No Longer Active Maliheh Ziglari HOME APPLIANCE INSTALLER Active CALCIUM 500/D 500-200 MG-UNIT ORAL TABLET one tablet daily CALCIUM CARBONATE-VITAMIN D 99880323468 Active Prosper Arenas MD Active HYDROCODONE-ACETAMINOPHEN 5-500 MG ORAL TABLET 1-2 FOUR TIMES A DAY, PRN 2010 HYDROCODONE-ACETAMINOPHEN 74016463002 No Longer Active Prosper Arenas MD Active DOXYCYCLINE HYCLATE 100 MG ORAL CAPSULE take one capsule by mouth twice daily for ten days DOXYCYCLINE HYCLATE 69675228214 No Longer Active Mekhi Dukes MD Active DOXYCYCLINE HYCLATE 100 MG ORAL CAPSULE take one capsule by mouth twice daily for ten days DOXYCYCLINE HYCLATE 100 MG ORAL CAPSULE 8644979 DOXYCYCLINE HYCLATE Inactive HYDROCODONE-ACETAMINOPHEN 5-500 MG ORAL TABLET 1-2 FOUR TIMES A DAY, PRN 2010 HYDROCODONE-ACETAMINOPHEN 5-500 MG ORAL TABLET 768717 HYDROCODONE-ACETAMINOPHEN Inactive NOVOLIN R RELION 100 UNIT/ML INJECTION SOLUTION 30- 40 units each meal sliding scale NOVOLIN R RELION 100 UNIT/ML INJECTION SOLUTION INSULIN REGULAR HUMAN Inactive ZITHROMAX Z-EDDIE 250 MG ORAL TABLET 2 today, then 1 daily for 4 days ZITHROMAX Z-EDDIE 250 MG ORAL TABLET 444567 AZITHROMYCIN Inactive REVLIMID 25 MG ORAL CAPSULE one capsule daily for 21 days then off for 7 days REVLIMID 25 MG ORAL CAPSULE LENALIDOMIDE Inactive TRAZODONE HCL 50 MG ORAL TABLET three tablets at bed time TRAZODONE HCL 50 MG ORAL TABLET 332883 TRAZODONE HCL Inactive HALOPERIDOL 0.5 MG ORAL TABLET one tablet three times a day HALOPERIDOL 0.5 MG ORAL TABLET 529479 HALOPERIDOL Inactive BENZONATATE 200 MG ORAL CAPSULE 1 tab, 2-3 times a day BENZONATATE 200 MG ORAL CAPSULE 888747 BENZONATATE Inactive MECLIZINE HCL 25 MG ORAL TABLET 1 daily needed for dizziness 2015 MECLIZINE HCL 25 MG ORAL TABLET 536041 MECLIZINE HCL Inactive HYDROCHLOROTHIAZIDE 25 MG ORAL TABLET 1 tablet by mouth daily HYDROCHLOROTHIAZIDE 25 MG ORAL TABLET 367703 HYDROCHLOROTHIAZIDE Inactive PREDNISONE 20 MG ORAL TABLET Take 2 daily for 3 days and then 1 daily for 3 days PREDNISONE 20 MG ORAL TABLET 914869 PREDNISONE Inactive LISINOPRIL 5 MG ORAL TABLET 1 daily LISINOPRIL 5 MG ORAL TABLET 298494 LISINOPRIL Inactive METOPROLOL TARTRATE 25 MG ORAL TABLET 1/2 tablet twice a day METOPROLOL TARTRATE 25 MG ORAL TABLET 343096 METOPROLOL TARTRATE Inactive OMEPRAZOLE 20 MG ORAL CAPSULE DELAYED RELEASE 1 qd OMEPRAZOLE 20 MG ORAL CAPSULE DELAYED RELEASE 853880 OMEPRAZOLE Inactive SIMVASTATIN 80 MG ORAL TABLET 1/2 tablet daily SIMVASTATIN 80 MG ORAL TABLET 153010 SIMVASTATIN Inactive ASPIRIN 81 MG ORAL TABLET 1 tablet by mouth daily ASPIRIN 81 MG ORAL TABLET 298133 ASPIRIN Inactive BENZONATATE 200 MG ORAL CAPSULE Take 1 tablet 3 times a day as needed for cough BENZONATATE 200 MG ORAL CAPSULE 395193 BENZONATATE Inactive Immunizations Vaccine Administration Date Value [...] W/DIFF - Chemistry sodium, serum 137 mmol/L 619-236 9925/08/16 carbon dioxide, venous blood 26.3 mmol/L 21.0-32.0 [...] Lab Report: [facility] Chemistry cholesterol, serum 115 mg/dL 907-220 4313/08/18 triglyceride, serum, fasting 89 mg/dL 30-200 HDL cholesterol, serum 46 mg/dL 32-60 LDL cholesterol, serum 51 mg/dL 0-130 blood glucose 104 mg/dL 65-110 Lab Report: LIPID PANEL- [facility] - Chemistry cholesterol, serum 156 mg/dL 081-100 2228/02/20 HDL cholesterol, serum 52 mg/dL > OR=40 [...] mg/dL Encounters Code Encounter Date Provider Facility CPT-23172 Level 3 Est. Patient 17:11:55 CERTIFIED WELLNESS PROGRAM COORDINATOR Ismael Gracia MD [facility] CPT-21572 Level 4 Est. Patient 16:29:19 CDT Mekhi Dukes MD [facility] CPT-29521 Level 3 New Patient 17:05:24 CDT Ismael Gracia MD [facility] CPT-94488 Level 2 Est. Patient 15:43:17 CDT Mekhi Dukes MD [facility] CPT-77261 Level 3 Est. Patient 09:30:37 CDT [facility] Level 3 Est. Patient 10:00:14 CDT Mekhi Dukes MD [facility] CPT-26755 Level 3 Est. Patient 12:24:09 CDT [facility] CPT-40003 Level 3 Est. Patient 14:34:57 CDT Prosper Arenas MD [facility] CPT-14395 Level 3 New Patient 15:44:53 CERTIFIED WELLNESS PROGRAM COORDINATOR Mekhi Dukes MD [facility] CPT-55778 Level 3 Est. Patient 14:53:34 CERTIFIED WELLNESS PROGRAM COORDINATOR Prosper Arenas MD [facility] CPT-39542 Level 4 Est. Patient 10:05:41 CERTIFIED WELLNESS PROGRAM COORDINATOR [facility] CPT-96183 Level 3 Est. Patient 11:18:32 CDT [facility] CPT-99582 Level 4 Est. Patient 11:05:10 CDT [facility] CPT-27419 Level 3 Est. Patient 11:08:27 CERTIFIED WELLNESS PROGRAM COORDINATOR Moy Garcia [facility] CPT-19259 Level 4 Est. Patient 10:43:59 CDT Prosper Arenas MD [facility] CPT-20154 Level 3 Est. Patient 10:51:19 CDT Moy Garcia [facility] CPT-41233 Level 3 Est. Patient 10:20:31 CDT Moy Garcia [facility] CPT-66695 Level 3 Est. [facility]:08:45 [facility] CPT-92910 Level 2 Est. Patient 13:54:36 CDT Augustina Mata APRN [facility] CPT-05719 Level 3 Est. Patient 12:00:42 CDT Prosper Arenas MD [facility] CPT-33522 Level 3 Est. Patient 09:57:28 CERTIFIED WELLNESS PROGRAM COORDINATOR Moy Garcia [facility] CPT-35251 Level 3 Est. Patient 11:41:19 CERTIFIED WELLNESS PROGRAM COORDINATOR Luxshoaib Garcia [facility] CPT-89045 Level 4 Est. Patient 17:07:35 CERTIFIED WELLNESS PROGRAM COORDINATOR Moy Garcia [facility] CPT-90194 Level 5 Est. Patient 14:33:32 CDT Moy Garcia [facility] CPT-42368 Level 3 Est. Patient 12:25:35 CDT Prosper Arenas MD [facility] Procedures Code Procedure Name Date Entry Date Standard Description CPT-99905 Postop F/U Visit 17:20:20 CERTIFIED WELLNESS PROGRAM COORDINATOR CPT-G0439 [facility] Annual Wellness Exam 08:39:41 CERTIFIED WELLNESS PROGRAM COORDINATOR CPT-000 Give Appropriate Flu Vaccine 10:13:55 CERTIFIED WELLNESS PROGRAM COORDINATOR CPT-000 Give Immunizations Due 10:13:55 CERTIFIED WELLNESS PROGRAM COORDINATOR CPT-38762 HGBA1C - LAB USE ONLY 09:42:47 CERTIFIED WELLNESS PROGRAM COORDINATOR CPT-02859 TPSA - LAB USE ONLY 09:42:46 CERTIFIED WELLNESS PROGRAM COORDINATOR CPT-28059 Venipuncture Draw Fee 09:42:46 CERTIFIED WELLNESS PROGRAM COORDINATOR CPT-62279 Port a cath flush 13:33:18 CERTIFIED WELLNESS PROGRAM COORDINATOR CPT-26767 First Vx - Ix admin for Medicare patients 10:42:57 CERTIFIED WELLNESS PROGRAM COORDINATOR CPT-92746 Fluzone Preservative Free Intramuscular Suspension 10:42 :57 CERTIFIED WELLNESS PROGRAM COORDINATOR CPT-G0438 Initial Annual Wellness Exam 10:13:55 CERTIFIED WELLNESS PROGRAM COORDINATOR CPT-000 Give Appropriate Flu Vaccine 10:44:04 CDT CPT-000 Give Pneumovax 10:44:03 CDT CPT-25796 Port a cath flush 17:04:43 CDT CPT-44132 Prevnar 13 11:19:17 CDT CPT-42949 Fluzone Quadrivalent preservative free (>=3yrs.) 11:19: 17 CDT CPT-09676 Immunization Each Additional Inj 11:19:17 CDT CPT-90564 Immunization Single Admin 11:19:17 CDT CPT-37510 Port a cath flush 13:28:22 CDT CPT-TCMM Transitional Care Mgmt-Moderate 13:40:15 CDT CPT-G0008 Administration of Influenza Virus Vaccine 13:59:20 CDT CPT-47435 Fluzone High-Dose Intramuscular Suspension 13:59:20 CDT CPT-08955 Venipuncture Draw Fee 09:56:19 CDT CPT-OV Office Visit 15:46:10 CDT
--- OUTSIDE RECORDS SUMMARY | 2017-08-25 20:57 | XMS REPORT | Clinical Summary ---
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 Miller telemetry tech mellitus 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, type II [...] type II, uncontrolled 250.02 Active Maliheh Rodrigoglari SENIOR GIS ANALYST Diabetes mellitus 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, [...] with hyperglycemia 250.00 Active 03/21 Maliheh Ziglari SENIOR GIS ANALYST Diabetes mellitus 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, type II or unspecified type, not stated as uncontrolled FPC use of insulin treatment V58.67 Active Luxiheh Rodrigoglari SENIOR GIS ANALYST Long-term (current) use of insulin Diabetes mellitus, type II with hypoglycemia 250.80 Active 07/22 Maliheh Ziglari SENIOR GIS ANALYST Diabetes mellitus with other specified manifestations, type II or unspecified type, not stated as uncontrolled 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 Maliheh Ziglari SENIOR GIS ANALYST Diabetes mellitus with renal manifestations, type II or unspecified type, not stated as uncontrolled Wellness exam V70.0 Active Dee Palmer APRN Routine general medical examination at a health care facility Fitting and adjustment of vascular catheter V58.81 Active 02/06 Dee Palmer APRN Encounter for fitting and adjustment of vascular catheter Unawareness of hypoglycemia in diabetes mellitus, type II 250.80 Active Maliheh Rodrigoglari SENIOR GIS ANALYST Diabetes mellitus with other specified manifestations, type [...] specified as recurrent) Gastritis Inactive Maliheh Jose SENIOR GIS ANALYST Unspecified gastritis and gastroduodenitis, 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 [...] Inactive Mekhi Dukes MD Gastritis Inactive Janis Gallagher LPN Medication List Medication Instructions Start Date Stop Date Generic Name NDC Status Provider Patient Instruction GUAIFENESIN DM 400-20 MG ORAL TABLET 1 pill by mouth twice daily, if needed for cough DEXTROMETHORPHAN-GUAIFENESIN 59156366376 Active Dee Palmer APRN Active PREDNISONE 20 MG ORAL TABLET 2 tabs daily for 4 days, 1 tab daily for 4 days, 1/2 tab daily for 4 days PREDNISONE 99761152393 Active Dee Palmer APRN Active ASPIRIN 81 MG ORAL TABLET 1 po qd ASPIRIN 66126669811 Active Dee Palmer APRN Active CALCIUM 500/D 500-200 MG-UNIT ORAL TABLET one tablet daily CALCIUM CARBONATE-VITAMIN D 26970972092 No Longer Active Dee Palmer APRN Active HYDROCODONE-ACETAMINOPHEN 7.5-325 MG ORAL TABLET 1-2 every 4-6 hrs prn 02/25 HYDROCODONE-ACETAMINOPHEN 96477076072 Active Marina Messina APRN Active ASPIRIN 81 MG ORAL TABLET 1 tablet by mouth daily ASPIRIN 71753206639 No Longer Active Marina Messina APRN Active SIMVASTATIN 80 MG ORAL TABLET 1/2 tablet daily SIMVASTATIN 17329997957 No Longer Active Mekhi Dukes MD Active OMEPRAZOLE 20 MG ORAL CAPSULE DELAYED RELEASE 1 qd OMEPRAZOLE 91617159453 No Longer Active Mekhi Dukes MD Active METOPROLOL TARTRATE 25 MG ORAL TABLET 1/2 tablet twice a day METOPROLOL TARTRATE 69174241711 No Longer Active Mekhi Dukes MD Active LISINOPRIL 5 MG ORAL TABLET 1 daily LISINOPRIL 33248525660 No Longer Active Mekhi Dukes MD Active NOVOLOG FLEXPEN 100 UNIT/ML SUBCUTANEOUS SOLUTION PEN-INJECTOR Take 8 units with each meal, add 1u/50 for blood sugars above 150. INSULIN ASPART 16411790879 Active Moy PARISH Active GABAPENTIN 300 MG ORAL CAPSULE 1 tab BID GABAPENTIN 25923576204 Active Tami Miller RN Active PREDNISONE 20 MG ORAL TABLET Take 2 daily for 3 days and then 1 daily for 3 days PREDNISONE 19092691697 No Longer Active Moy Wallaceglari JEM Active BENZONATATE 200 MG ORAL CAPSULE Take 1 tablet 3 times a day as needed for cough BENZONATATE 06645332260 No Longer Active Prosper Arenas MD Active HYDROCHLOROTHIAZIDE 25 MG ORAL TABLET 1 tablet by mouth daily HYDROCHLOROTHIAZIDE 46224107706 No Longer Active Prosper Arenas MD Active ACCU-CHEK JOANNA PLUS IN VITRO STRIP check blood sugars 5x a day, before each meal and bedtime and 15 minutes after treating a low blood. sugar GLUCOSE BLOOD 22749927581 Active Moy Wallaceglrex DURANTP Active LANTUS SOLOSTAR 100 UNIT/ML SUBCUTANEOUS SOLUTION PEN-INJECTOR Take 40 units at 7-8pm daily INSULIN GLARGINE 90695966882 Active Moy Wallaceglrex SENIOR GIS ANALYST Active MECLIZINE HCL 25 MG ORAL TABLET 1 daily needed for dizziness 2015 MECLIZINE HCL 12366704969 No Longer Active Maliheh Ziglari SENIOR GIS ANALYST Active BENZONATATE 200 MG ORAL CAPSULE 1 tab, 2-3 times a day BENZONATATE 04435105259 No Longer Active Maleh Ziglari SENIOR GIS ANALYST Active HALOPERIDOL 0.5 MG ORAL TABLET one tablet three times a day HALOPERIDOL 82040113166 No Longer Active Maleh Ziglari SENIOR GIS ANALYST Active TRAZODONE HCL 50 MG ORAL TABLET three tablets at bed time TRAZODONE HCL 37864843944 No Longer Active [facility] Ziglari SENIOR GIS ANALYST Active REVLIMID 25 MG ORAL CAPSULE one capsule daily for 21 days then off for 7 days LENALIDOMIDE 30551060612 No Longer Active Maliheh Ziglari SENIOR GIS ANALYST Active ZITHROMAX Z-EDDIE 250 MG ORAL TABLET 2 today, then 1 daily for 4 days AZITHROMYCIN 95971042511 No Longer Active Augustina Mata APRN Active NOVOLIN R RELION 100 UNIT/ML INJECTION SOLUTION 30- 40 units each meal sliding scale INSULIN REGULAR HUMAN 57097955689 No Longer Active Maleh Ziglari SENIOR GIS ANALYST Active HYDROCODONE-ACETAMINOPHEN 5-500 MG ORAL TABLET 1-2 FOUR TIMES A DAY, PRN 2010 HYDROCODONE-ACETAMINOPHEN 58106025977 No Longer Active Prosper Arenas MD Active DOXYCYCLINE HYCLATE 100 MG ORAL CAPSULE take one capsule by mouth twice daily for ten days DOXYCYCLINE HYCLATE 77613001817 No Longer Active Mekhi Dukes MD Active DOXYCYCLINE HYCLATE 100 MG ORAL CAPSULE take one capsule by mouth twice daily for ten days DOXYCYCLINE HYCLATE 100 MG ORAL CAPSULE 3247958 DOXYCYCLINE HYCLATE Inactive HYDROCODONE-ACETAMINOPHEN 5-500 MG ORAL TABLET 1-2 FOUR TIMES A DAY, PRN 2010 HYDROCODONE-ACETAMINOPHEN 5-500 MG ORAL TABLET 401833 HYDROCODONE-ACETAMINOPHEN Inactive NOVOLIN R RELION 100 UNIT/ML INJECTION SOLUTION 30- 40 units each meal sliding scale NOVOLIN R RELION 100 UNIT/ML INJECTION SOLUTION INSULIN REGULAR HUMAN Inactive ZITHROMAX Z-EDDIE 250 MG ORAL TABLET 2 today, then 1 daily for 4 days ZITHROMAX Z-EDDIE 250 MG ORAL TABLET 158667 AZITHROMYCIN Inactive REVLIMID 25 MG ORAL CAPSULE one capsule daily for 21 days then off for 7 days REVLIMID 25 MG ORAL CAPSULE LENALIDOMIDE Inactive TRAZODONE HCL 50 MG ORAL TABLET three tablets at bed time TRAZODONE HCL 50 MG ORAL TABLET 603360 TRAZODONE HCL Inactive HALOPERIDOL 0.5 MG ORAL TABLET one tablet three times a day HALOPERIDOL 0.5 MG ORAL TABLET 695029 HALOPERIDOL Inactive BENZONATATE 200 MG ORAL CAPSULE 1 tab, 2-3 times a day BENZONATATE 200 MG ORAL CAPSULE 606282 BENZONATATE Inactive MECLIZINE HCL 25 MG ORAL TABLET 1 daily needed for dizziness 2015 MECLIZINE HCL 25 MG ORAL TABLET 495408 MECLIZINE HCL Inactive HYDROCHLOROTHIAZIDE 25 MG ORAL TABLET 1 tablet by mouth daily HYDROCHLOROTHIAZIDE 25 MG ORAL TABLET 718971 HYDROCHLOROTHIAZIDE Inactive PREDNISONE 20 MG ORAL TABLET Take 2 daily for 3 days and then 1 daily for 3 days PREDNISONE 20 MG ORAL TABLET 213154 PREDNISONE Inactive LISINOPRIL 5 MG ORAL TABLET 1 daily LISINOPRIL 5 MG ORAL TABLET 374750 LISINOPRIL Inactive METOPROLOL TARTRATE 25 MG ORAL TABLET 1/2 tablet twice a day METOPROLOL TARTRATE 25 MG ORAL TABLET 912195 METOPROLOL TARTRATE Inactive OMEPRAZOLE 20 MG ORAL CAPSULE DELAYED RELEASE 1 qd OMEPRAZOLE 20 MG ORAL CAPSULE DELAYED RELEASE 483846 OMEPRAZOLE Inactive SIMVASTATIN 80 MG ORAL TABLET 1/2 tablet daily SIMVASTATIN 80 MG ORAL TABLET 323256 SIMVASTATIN Inactive ASPIRIN 81 MG ORAL TABLET 1 tablet by mouth daily ASPIRIN 81 MG ORAL TABLET 563822 ASPIRIN Inactive CALCIUM 500/D 500-200 MG-UNIT ORAL TABLET one tablet daily CALCIUM 500/D 500-200 MG-UNIT ORAL TABLET CALCIUM CARBONATE-VITAMIN D Inactive BENZONATATE 200 MG ORAL CAPSULE Take 1 tablet 3 times a day as needed for cough BENZONATATE 200 MG ORAL CAPSULE 955573 BENZONATATE Inactive Immunizations Vaccine Administration Date Value [...] W/DIFF - Chemistry sodium, serum 137 mmol/L 029-562 0874/08/16 carbon dioxide, venous blood 26.3 mmol/L 21.0-32.0 [...] LABS - Chemistry cholesterol, serum 115 mg/dL 987-964 4582/08/18 triglyceride, serum, fasting 89 mg/dL 30-200 HDL cholesterol, serum 46 mg/dL 32-60 LDL cholesterol, serum 51 mg/dL 0-130 blood glucose 104 mg/dL 65-110 Lab Report: LIPID PANEL- REPOWER LAB - Chemistry cholesterol, serum 156 mg/dL 746-098 6933/02/20 HDL cholesterol, serum 52 mg/dL > OR=40 [...] mg/dL Encounters Code Encounter Date Provider Facility CPT-77873 Level 3 Est. Patient 14:09:25 RAILROAD ENGINEER Dee Palmer APRN [facility] CPT-71395 Level 3 Est. Patient 10:53:32 RAILROAD ENGINEER Moy Garcia [facility] CPT-93805 Level 3 Est. Patient 17:11:55 RAILROAD ENGINEER Ismael Gracia MD [facility] CPT-31658 Level 4 Est. Patient 16:29:19 CDT Mekhi Dukes MD [facility] CPT-77212 Level 3 New Patient 17:05:24 CDT Ismael Gracia MD [facility] CPT-91767 Level 2 Est. Patient 15:43:17 CDT Mekhi Dukes MD [facility] CPT-79690 Level 3 Est. Patient 09:30:37 CDT Moy Garcia [facility] CPT-47649 Level 3 Est. Patient 10:00:14 CDT Mekhi Dukes MD [facility] CPT-14978 Level 3 Est. Patient 12:24:09 CDT Luxpapo Garcia [facility] CPT-28118 Level 3 Est. Patient 14:34:57 CDT Prosper Arenas MD [facility] CPT-66631 Level 3 New Patient 15:44:53 RAILROAD ENGINEER Mekhi Dukes MD [facility] CPT-52108 Level 3 Est. Patient 14:53:34 RAILROAD ENGINEER Prosper Arenas MD [facility] CPT-02100 Level 4 Est. Patient 10:05:41 RAILROAD ENGINEER Moy Garcia [facility] CPT-99620 Level 3 Est. Patient 11:18:32 CDT Moy Garcia [facility] CPT-22834 Level 4 Est. Patient 11:05:10 CDT Luxpapo Garcia [facility] CPT-21037 Level 3 Est. Patient 11:08:27 RAILROAD ENGINEER Moy Garcia [facility] named [facility] CPT-97829 Level 4 Est. Patient 10:43:59 CDT Prosper Arenas MD [facility] CPT-29717 Level 3 Est. Patient 10:51:19 CDT Moy Garcia [facility] CPT-90351 Level 3 Est. Patient 10:20:31 CDT [facility]04777 Level 3 Est. Patient 17:08:45 [facility] Level 2 Est. Patient 13:54:36 CDT Augustina Juan Carlostalagunnar DOHERTY [facility] CPT-45338 Level 3 Est. Patient 12:00:42 CDT Prosper Arenas MD [facility] CPT-67340 Level 3 Est. Patient 09:57:28 RAILROAD ENGINEER [facility] CPT-24813 Level 3 Est. Patient 11:41:19 RAILROAD ENGINEER [facility] CPT-05176 Level 4 Est. Patient 17:07:35 RAILROAD ENGINEER [facility] CPT-39971 Level 5 Est. Patient 14:33:32 CDT [facility] CPT-92662 Level 3 Est. Patient 12:25:35 CDT Prosper Arenas MD [facility] Procedures Code Procedure Name Date Entry Date Standard Description CPT-80323 Chest, 2 views 14:17:20 RAILROAD ENGINEER CPT-48391 Postop F/U Visit 14:44:45 RAILROAD ENGINEER CPT-83829 Postop F/U Visit 17:20:20 RAILROAD ENGINEER CPT-G0439 [facility] Annual Wellness Exam 08:39:41 RAILROAD ENGINEER CPT-000 Give Appropriate Flu Vaccine 10:13:55 RAILROAD ENGINEER CPT-000 Give Immunizations Due 10:13:55 RAILROAD ENGINEER CPT-73028 HGBA1C - LAB USE ONLY 09:42:47 RAILROAD ENGINEER CPT-63310 TPSA - LAB USE ONLY 09:42:46 RAILROAD ENGINEER CPT-62783 Venipuncture Draw Fee 09:42:46 RAILROAD ENGINEER CPT-19303 Port a cath flush 13:33:18 RAILROAD ENGINEER CPT-87976 First Vx - Ix admin for Medicare patients 10:42:57 RAILROAD ENGINEER CPT-83083 Fluzone Preservative Free Intramuscular Suspension 10:42 :57 RAILROAD ENGINEER CPT-G0438 Initial Annual Wellness Exam 10:13:55 RAILROAD ENGINEER CPT-000 Give Appropriate Flu Vaccine 10:44:04 CDT CPT-000 Give Pneumovax 10:44:03 CDT CPT-76023 Port a cath flush 17:04:43 CDT CPT-15788 Prevnar 13 11:19:17 CDT CPT-96712 Fluzone Quadrivalent preservative free (>=3yrs.) 11:19: 17 CDT CPT-79359 Immunization Each Additional Inj 11:19:17 CDT CPT-95393 Immunization Single Admin 11:19:17 CDT CPT-05332 Port a cath flush 13:28:22 CDT CPT-TCMM Transitional Care Mgmt-Moderate 13:40:15 CDT CPT-G0008 Administration of Influenza Virus Vaccine 13:59:20 CDT CPT-04402 Fluzone High-Dose Intramuscular Suspension 13:59:20 CDT CPT-93382 Venipuncture Draw Fee 09:56:19 CDT CPT-OV Office Visit 15:46:10 CDT
--- OUTSIDE RECORDS SUMMARY | 2017-08-25 20:58 | XMS REPORT | Clinical Summary ---
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 mellitus 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, type II [...] type II, uncontrolled 250.02 Active Maliheh Rodrigoglari END WORKER Diabetes mellitus 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, type [...] with hyperglycemia 250.00 Active 03/21 Maliheh Ziglari END WORKER Diabetes mellitus 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, type II or unspecified type, not stated as uncontrolled long-term use of insulin treatment V58.67 Active Luxiheh Rodrigoglari END WORKER Long-term (current) use of insulin Diabetes mellitus, type II with hypoglycemia 250.80 Active 07/22 Maliheh Ziglari END WORKER Diabetes mellitus with other specified manifestations, type II or unspecified type, not stated as uncontrolled 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 Maliheh Ziglari END WORKER Diabetes mellitus with renal manifestations, type II or unspecified type, not stated as uncontrolled Wellness exam V70.0 Active Dee Palmer APRN Routine general medical examination at a health care facility Fitting and adjustment of vascular catheter V58.81 Active 02/06 Dee Palmer APRN Encounter for fitting and adjustment of vascular catheter Unawareness of hypoglycemia in diabetes mellitus, type II 250.80 Active Maliheh Ziglari END WORKER Diabetes mellitus with other specified manifestations, type II or unspecified type, not stated as uncontrolled Groin pain, right 789.09 Active Prosper Arenas MD Abdominal pain, other specified site; multiple sites Obesity 278.00 Active Prosper Arenas MD Obesity , unspecified Cough 786.2 Resolved Tami Miller RN Cough Headache 784.0 Resolved Tami Miller RN Headache Inguinal pain, right 789.09 Active Ismael Gracia MD Abdominal pain, other specified site; multiple sites Diabetes, Type 2 ICD-250.00 Inactive Mekhi Dukes [...] Generic Name NDC Status Provider Patient Instruction SIMVASTATIN 80 MG ORAL TABLET 1/2 tablet daily SIMVASTATIN 90042386446 No Longer Active Mekhi Dukes MD Active OMEPRAZOLE 20 MG ORAL CAPSULE DELAYED RELEASE 1 qd OMEPRAZOLE 53681420330 No Longer Active Mekhi Dukes MD Active METOPROLOL TARTRATE 25 MG ORAL TABLET 1/2 tablet twice a day METOPROLOL TARTRATE 62766041836 No Longer Active Mekhi Dukes MD Active LISINOPRIL 5 MG ORAL TABLET 1 daily LISINOPRIL 33834222049 No Longer Active Mekhi Dukes MD Active NOVOLOG FLEXPEN 100 UNIT/ML SUBCUTANEOUS SOLUTION PEN-INJECTOR Take 8 units with each meal, add 1u/50 for blood sugars above 150. INSULIN ASPART 06670180086 Active Moy PARISH Active GABAPENTIN 300 MG ORAL CAPSULE 1 tab BID GABAPENTIN 41606041887 Active Tami Miller RN Active PREDNISONE 20 MG ORAL TABLET Take 2 daily for 3 days and then 1 daily for 3 days PREDNISONE 55713871681 No Longer Active Malcarissashoaib Ziglari END WORKER Active BENZONATATE 200 MG ORAL CAPSULE Take 1 tablet 3 times a day as needed for cough BENZONATATE 87252374117 No Longer Active Prosper Arenas MD Active HYDROCHLOROTHIAZIDE 25 MG ORAL TABLET 1 tablet by mouth daily HYDROCHLOROTHIAZIDE 25996088745 No Longer Active Prosper Arenas MD Active ACCU-CHEK JOANNA PLUS IN VITRO STRIP check blood sugars 5x a day, before each meal and bedtime and 15 minutes after treating a low blood. sugar GLUCOSE BLOOD 60579887198 Active Luxshoaib Wallaceglari END WORKER Active LANTUS SOLOSTAR 100 UNIT/ML SUBCUTANEOUS SOLUTION PEN-INJECTOR Take 40 units at 7-8pm daily INSULIN GLARGINE 95865282475 Active Moy Wallaceglari END WORKER Active MECLIZINE HCL 25 MG ORAL TABLET 1 daily needed for dizziness 2015 MECLIZINE HCL 09094774716 No Longer Active Malcarissaeh Ziglari END WORKER Active BENZONATATE 200 MG ORAL CAPSULE 1 tab, 2-3 times a day BENZONATATE 07992958070 No Longer Active Malpapo Wallaceglari END WORKER Active HALOPERIDOL 0.5 MG ORAL TABLET one tablet three times a day HALOPERIDOL 87634650075 No Longer Active [facility] Ziglari END WORKER Active TRAZODONE HCL 50 MG ORAL TABLET three tablets at bed time TRAZODONE HCL 21715190240 No Longer [facility] Zigl[facility] END WORKER Active REVLIMID 25 MG ORAL CAPSULE one capsule daily for 21 days then off for 7 days LENALIDOMIDE 41494782092 No Longer Active Maleh Ziglari END WORKER Active ZITHROMAX Z-EDDIE 250 MG ORAL TABLET 2 today, then 1 daily for 4 days AZITHROMYCIN 96868800342 No Longer Active Augustina Adolfo DOHERTY Active NOVOLIN R RELION 100 UNIT/ML INJECTION SOLUTION 30- 40 units each meal sliding scale INSULIN REGULAR HUMAN 41094572198 No Longer Active Malpapo Wallaceglari END WORKER Active CALCIUM 500/D 500-200 MG-UNIT ORAL TABLET one tablet daily CALCIUM CARBONATE-VITAMIN D 35367092919 Active Prosper Arenas MD Active HYDROCODONE-ACETAMINOPHEN 5-500 MG ORAL TABLET 1-2 FOUR TIMES A DAY, PRN 2010 HYDROCODONE-ACETAMINOPHEN 90429507669 No Longer Active Prosper Arenas MD Active ASPIRIN 81 MG ORAL TABLET 1 tablet by mouth daily ASPIRIN 93982504088 Active Prosper Arenas MD Active DOXYCYCLINE HYCLATE 100 MG ORAL CAPSULE take one capsule by mouth twice daily for ten days DOXYCYCLINE HYCLATE 17872656396 No Longer Active Mekhi Dukes MD Active DOXYCYCLINE HYCLATE 100 MG ORAL CAPSULE take one capsule by mouth twice daily for ten days DOXYCYCLINE HYCLATE 100 MG ORAL CAPSULE 4530170 DOXYCYCLINE HYCLATE Inactive HYDROCODONE-ACETAMINOPHEN 5-500 MG ORAL TABLET 1-2 FOUR TIMES A DAY, PRN 2010 HYDROCODONE-ACETAMINOPHEN 5-500 MG ORAL TABLET 947565 HYDROCODONE-ACETAMINOPHEN Inactive NOVOLIN R RELION 100 UNIT/ML INJECTION SOLUTION 30- 40 units each meal sliding scale NOVOLIN R RELION 100 UNIT/ML INJECTION SOLUTION INSULIN REGULAR HUMAN Inactive ZITHROMAX Z-EDDIE 250 MG ORAL TABLET 2 today, then 1 daily for 4 days ZITHROMAX Z-EDDIE 250 MG ORAL TABLET 016514 AZITHROMYCIN Inactive REVLIMID 25 MG ORAL CAPSULE one capsule daily for 21 days then off for 7 days REVLIMID 25 MG ORAL CAPSULE LENALIDOMIDE Inactive TRAZODONE HCL 50 MG ORAL TABLET three tablets at bed time TRAZODONE HCL 50 MG ORAL TABLET 327252 TRAZODONE HCL Inactive HALOPERIDOL 0.5 MG ORAL TABLET one tablet three times a day HALOPERIDOL 0.5 MG ORAL TABLET 040697 HALOPERIDOL Inactive BENZONATATE 200 MG ORAL CAPSULE 1 tab, 2-3 times a day BENZONATATE 200 MG ORAL CAPSULE 223618 BENZONATATE Inactive MECLIZINE HCL 25 MG ORAL TABLET 1 daily needed for dizziness 2015 MECLIZINE HCL 25 MG ORAL TABLET 673684 MECLIZINE HCL Inactive HYDROCHLOROTHIAZIDE 25 MG ORAL TABLET 1 tablet by mouth daily HYDROCHLOROTHIAZIDE 25 MG ORAL TABLET 765095 HYDROCHLOROTHIAZIDE Inactive PREDNISONE 20 MG ORAL TABLET Take 2 daily for 3 days and then 1 daily for 3 days PREDNISONE 20 MG ORAL TABLET 877578 PREDNISONE Inactive LISINOPRIL 5 MG ORAL TABLET 1 daily LISINOPRIL 5 MG ORAL TABLET 375692 LISINOPRIL Inactive METOPROLOL TARTRATE 25 MG ORAL TABLET 1/2 tablet twice a day METOPROLOL TARTRATE 25 MG ORAL TABLET 561990 METOPROLOL TARTRATE Inactive OMEPRAZOLE 20 MG ORAL CAPSULE DELAYED RELEASE 1 qd OMEPRAZOLE 20 MG ORAL CAPSULE DELAYED RELEASE 340202 OMEPRAZOLE Inactive SIMVASTATIN 80 MG ORAL TABLET 1/2 tablet daily SIMVASTATIN 80 MG ORAL TABLET 103840 SIMVASTATIN Inactive BENZONATATE 200 MG ORAL CAPSULE Take 1 tablet 3 times a day as needed for cough BENZONATATE 200 MG ORAL CAPSULE 712944 BENZONATATE Inactive Immunizations Vaccine Administration Date Value [...] Value Unit Range Description blood pressure, diastolic 63 mm[Hg] BP chavez [...] W/DIFF - Chemistry sodium, serum 137 mmol/L 625-710 5507/08/16 carbon dioxide, venous blood 26.3 mmol/L 21.0-32.0 [...] 4.3-6.0 Lab Report: Lipid Panel, Glucose- [facility]M [facility] - Chemistry cholesterol, serum 115 mg/dL 920-482 6565/08/18 triglyceride, serum, fasting 89 mg/dL 30-200 HDL cholesterol, serum 46 mg/dL 32-60 LDL cholesterol, serum 51 mg/dL 0-130 blood glucose 104 mg/dL 65-110 Lab Report: LIPID PANEL- [facility] - Chemistry cholesterol, serum 156 mg/dL 055-205 4415/02/20 HDL cholesterol, serum 52 mg/dL > OR=40 [...] mg/dL Encounters Code Encounter Date Provider Facility CPT-04271 Level 4 Est. Patient 16:29:19 CDT Mekhi Dukes MD [facility] CPT-79739 Level 3 New Patient 17:05:24 CDT Ismael Gracia MD [facility] CPT-27356 Level 2 Est. Patient 15:43:17 CDT Mekhi Dukes MD [facility] CPT-51544 Level 3 Est. [facility] 09:30:[address] [facility] Level 3 Est. Patient 10:00:14 CDT Mekhi Dukes MD [facility] CPT-08719 Level 3 Est. Patient 12:24:09 [facility]85315 Level 3 Est. Patient 14:34:57 CDT Prosper Arenas MD [facility] CPT-96037 Level 3 New Patient 15:44:53 CT MANAGER Mekhi Dukes MD [facility] CPT-52148 Level 3 Est. Patient 14:53:34 CT MANAGER Prosper Arenas MD [facility] CPT-69523 Level 4 Est. Patient 10:05:41 CT MANAGER [facility] CPT-40013 Level 3 Est. Patient 11:18:32 CDT [facility] CPT-74271 Level 4 Est. Patient 11:05:10 CDT [facility] CPT-22552 Level 3 Est. Patient 11:08:27 CT MANAGER Moy Garcia [facility] CPT-90144 Level 4 Est. Patient 10:43:59 CDT Prosper Arenas MD [facility] CPT-25206 Level 3 Est. Patient 10:51:19 CDT Myo Garcia [facility] CPT-87383 Level 3 Est. Patient 10:20:31 CDT Moy Garcia [facility] CPT-39312 Level 3 Est. Patient 17:08:45 CDT Moy Wallacerex [facility] CPT-68675 Level 2 Est. Patient 13:54:36 CDT Augustinajaclyn Mata PLACEMENT DIRECTOR [facility] CPT-09985 Level 3 Est. Patient 12:00:42 CDT Prosper Arenas MD [facility] CPT-44509 Level 3 Est. Patient 09:57:28 [facility] Level 3 Est. Patient 11:41:19 CT MANAGER [facility]-78362 Level 4 Est. Patient 17:07:35 CT MANAGER [facility] C[facility]-78366 Level 5 Est. Patient 14:33:32 CDT [facility]-21456 Level 3 Est. Patient 12:25:35 CDT Prosper Arenas MD [facility] Procedures Code Procedure Name Date Entry Date Standard Description CPT-000 Give Appropriate Flu Vaccine 10:13:55 CT MANAGER CPT-000 Give Immunizations Due 10:13:55 CT MANAGER CPT-59348 HGBA1C - LAB USE ONLY 09:42:47 CT MANAGER CPT-20261 TPSA - LAB USE ONLY 09:42:46 CT MANAGER CPT-73642 Venipuncture Draw Fee 09:42:46 CT MANAGER CPT-86708 Port a cath flush 13:33:18 CT MANAGER CPT-01154 First Vx - Ix admin for Medicare patients 10:42:57 CT MANAGER CPT-71533 Fluzone Preservative Free Intramuscular Suspension 10:42 :57 CT MANAGER CPT-G0438 Initial Annual Wellness Exam 10:13:55 CT MANAGER CPT-000 Give Appropriate Flu Vaccine 10:44:04 CDT CPT-000 Give Pneumovax 10:44:03 CDT CPT-70008 Port a cath flush 17:04:43 CDT CPT-44707 Prevnar 13 11:19:17 CDT CPT-12492 Fluzone Quadrivalent preservative free (>=3yrs.) 11:19: 17 CDT CPT-09206 Immunization Each Additional Inj 11:19:17 CDT CPT-74311 Immunization Single Admin 11:19:17 CDT CPT-00972 Port a cath flush 13:28:22 CDT CPT-TCMM Transitional Care Mgmt-Moderate 13:40:15 CDT CPT-G0008 Administration of Influenza Virus Vaccine 13:59:20 CDT CPT-79471 Fluzone High-Dose Intramuscular Suspension 13:59:20 CDT CPT-07685 Venipuncture Draw Fee 09:56:19 CDT CPT-OV Office Visit 15:46:10 CDT
--- OUTSIDE RECORDS SUMMARY | 2017-08-25 20:58 | XMS REPORT | Clinical Summary ---
Author Author Admin, IWONA Organization [employer] Address Unknown Phone Unavailable Allergies, Adverse Reactions, Alerts Allergy Name Reaction Description Start Date Severity Status Provider ERYTHROMYCIN Stomach cramps Moderate Active Prosper Arenas MD CODEINE Critical Active Maliheh Ziglari BLACKTOP PAVER OPERATOR DARVOCET Critical Active Maliheh Ziglari BLACKTOP PAVER OPERATOR LEVAQUIN Critical Active Maliheh Ziglari BLACKTOP PAVER OPERATOR Conditions or Problems Problem Name Problem Code Onset Date Status Entry Date Provider Comment Standard Description Annotate Diabetes, Type 2 250.00 Resolved 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 mellitus 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, type II [...] type II, uncontrolled 250.02 Active Maliheh Rodrigoglari BLACKTOP PAVER OPERATOR Diabetes mellitus 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, type [...] with hyperglycemia 250.00 Active 03/21 Maliheh Ziglari BLACKTOP PAVER OPERATOR Diabetes mellitus 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, type II or unspecified type, not stated as uncontrolled custodial use of insulin treatment V58.67 Active Luxiheh Rodrigoglari BLACKTOP PAVER OPERATOR Long-term (current) use of insulin Diabetes mellitus, type II with hypoglycemia 250.80 Active 07/22 Maliheh Ziglari BLACKTOP PAVER OPERATOR Diabetes mellitus with other specified manifestations, type II or unspecified type, not stated as uncontrolled 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 Maliheh Ziglari BLACKTOP PAVER OPERATOR Diabetes mellitus with renal manifestations, type II or unspecified type, not stated as uncontrolled Wellness exam V70.0 Active Dee Palmer APRN Routine general medical examination at a health care facility Fitting and adjustment of vascular catheter V58.81 Active 02/06 Dee Palmer APRN Encounter for fitting and adjustment of vascular catheter Unawareness of hypoglycemia in diabetes mellitus, type II 250.80 Active Maliheh Ziglari BLACKTOP PAVER OPERATOR Diabetes mellitus with other specified manifestations, type II or unspecified type, not stated as uncontrolled Groin pain, right 789.09 Active Prosper Arenas MD Abdominal pain, other specified site; multiple sites Obesity 278.00 Active Prosper Arenas MD Obesity , unspecified Cough 786.2 Resolved Tami Miller RN Cough Headache 784.0 Resolved Tami Miller RN Headache Diabetes, Type 2 ICD-250.00 Inactive Mekhi Dukes MD Abdominal pain, right upper quadrant ICD-789.01 Inactive Mekhi Dukes MD Syncope and collapse ICD-780.2 Inactive Mekhi Dukes MD Hypokalemia ICD-276.8 Inactive Mekhi Dukes MD Chest pain, atypical ICD-786.59 Inactive Mekhi Dukes MD Bronchitis ICD-490 Inactive Mekih Dukes MD Cough ICD-786.2 Inactive Mekhi Dukes MD Vertigo ICD-780.4 Inactive Mekhi Dukes MD Encounter for fitting and adjustment of vascular catheter ICD-V58.81 Inactive Mekhi Dukes MD Cough ICD-786.2 Inactive Mekhi Dukes MD Headache ICD-784.0 Inactive Mekhi Dukes MD Medication List Medication Instructions Start Date Stop Date Generic Name NDC Status Provider Patient Instruction GABAPENTIN 300 MG ORAL CAPS 1 tab BID GABAPENTIN 36287601349 Active Tami Miller RN Active PREDNISONE 20 MG TABS Take 2 daily for 3 days and then 1 daily for 3 days PREDNISONE 93700186363 No Longer Active Moy PARISH Active BENZONATATE 200 MG CAPS Take 1 tablet 3 times a day as needed for cough 07/29 BENZONATATE 11962424944 No Longer Active Prosper Arenas MD Active HYDROCHLOROTHIAZIDE 25 MG TABS 1 tablet by mouth daily HYDROCHLOROTHIAZIDE 01587956627 No Longer Active Prosper Arenas MD Active ACCU-CHEK JOANNA PLUS STRP check blood sugars 5x a day, before each meal and bedtime and 15 minutes after treating a low blood. sugar GLUCOSE BLOOD 15785290513 Active Maliheh Ziglari BLACKTOP PAVER OPERATOR Active NOVOLOG FLEXPEN 100 UNIT/ML SOPN Take 25 units with each meal, add 1u/50 for blood sugars above 150. INSULIN ASPART 62870869283 Active Maliheh Ziglari BLACKTOP PAVER OPERATOR Active LANTUS SOLOSTAR 100 UNIT/ML SOLN Take 40 units at 7-8pm daily INSULIN GLARGINE 49158389409 Active Maliheh Ziglari BLACKTOP PAVER OPERATOR Active MECLIZINE HCL 25 MG TABS 1 daily needed for dizziness MECLIZINE HCL 90320383319 No Longer Active Maliheh Ziglari BLACKTOP PAVER OPERATOR Active BENZONATATE 200 MG CAPS 1 tab, 2-3 times a day BENZONATATE 57018100081 No Longer Active Maliheh Ziglari BLACKTOP PAVER OPERATOR Active HALOPERIDOL 0.5 MG TABS one tablet three times a day HALOPERIDOL 47494370051 No Longer Active Maliheh Ziglari BLACKTOP PAVER OPERATOR Active TRAZODONE HCL 50 MG TAB three tablets at bed time TRAZODONE HCL 49377687528 No Longer Active Maliheh Ziglari BLACKTOP PAVER OPERATOR Active REVLIMID 25 MG CAPS one capsule daily for 21 days then off for 7 days 2014 LENALIDOMIDE 59478784762 No Longer Active Maliheh Ziglari BLACKTOP PAVER OPERATOR Active ZITHROMAX Z-EDDIE 250 MG TABS 2 today, then 1 daily for 4 days 2014 AZITHROMYCIN 76141307360 No Longer Active Augustina Yotalaum NAIL MAKER Active NOVOLIN R RELION 100 UNIT/ML INJ SOLN 30- 40 units each meal sliding scale INSULIN REGULAR HUMAN 52604127183 No Longer Active Moy PARISH Active LISINOPRIL 5 MG TABS 1 daily LISINOPRIL 89042375021 Active Prosper Arenas MD Active CALCIUM 500/D 500-200 MG-UNIT TABS one tablet daily CALCIUM CARBONATE- VITAMIN D 49754016987 Active Prosper Arenas MD Active HYDROCODONE-ACETAMINOPHEN 5-500 MG TABS 1-2 FOUR TIMES A DAY, PRN HYDROCODONE-ACETAMINOPHEN 55909480024 No Longer Active Prosper Arenas MD Active SIMVASTATIN 80 MG TABS 1/2 tablet daily SIMVASTATIN 89854391094 Active Prosper Arenas MD Active METOPROLOL TARTRATE 25 MG TABS 1/2 tablet twice a day METOPROLOL TARTRATE 52217378113 Active Prosper Arenas MD Active ASPIRIN 81 MG TAB 1 tablet by mouth daily ASPIRIN 59586201195 Active Prosper Arenas MD Active OMEPRAZOLE 20 MG CPDR 1 qd OMEPRAZOLE 49526325743 Active DARCIE Miller Active DOXYCYCLINE HYCLATE 100 MG CAPS take one capsule by mouth twice daily for ten days DOXYCYCLINE HYCLATE 53129215455 No Longer Active Mekhi Dukes MD Active DOXYCYCLINE HYCLATE 100 MG CAPS take one capsule by mouth twice daily for ten days DOXYCYCLINE HYCLATE 100 MG CAPS 3083635 DOXYCYCLINE HYCLATE Inactive HYDROCODONE-ACETAMINOPHEN 5-500 MG TABS [...] days 2014 ZITHROMAX Z-EDDIE 250 MG TABS 8063249 AZITHROMYCIN Inactive REVLIMID 25 MG CAPS one capsule daily for 21 days then off for 7 days 2014 REVLIMID 25 MG CAPS LENALIDOMIDE Inactive TRAZODONE HCL 50 MG TAB three tablets at bed time TRAZODONE HCL 50 MG TAB 422324 TRAZODONE HCL Inactive HALOPERIDOL 0.5 MG TABS one tablet three times a day HALOPERIDOL 0.5 MG TABS 854247 HALOPERIDOL Inactive BENZONATATE 200 MG CAPS 1 tab, 2-3 times a day BENZONATATE 200 MG CAPS 752246 BENZONATATE Inactive MECLIZINE HCL 25 MG TABS 1 daily needed for dizziness MECLIZINE HCL 25 MG TABS 332770 MECLIZINE HCL Inactive HYDROCHLOROTHIAZIDE 25 MG TABS 1 tablet by mouth daily HYDROCHLOROTHIAZIDE 25 MG TABS 216489 HYDROCHLOROTHIAZIDE Inactive PREDNISONE 20 MG TABS Take 2 daily for 3 days and then 1 daily for 3 days PREDNISONE 20 MG TABS 451204 PREDNISONE Inactive BENZONATATE 200 MG CAPS Take 1 tablet 3 times a day as needed for cough 07/29 BENZONATATE 200 MG CAPS 783838 BENZONATATE Inactive Immunizations Vaccine Administration Date Value [...] rate weight E&M 196 [lb_av] Weight Measured blood pressure, diastolic 70 mm[Hg] BP chavez blood pressure, systolic 113 mm[Hg] BP sys height E&M 66 [in_us] Bdy height pulse rate E&M 77 /min Heart rate temperature E&M 97.8 [degF] Body temperature weight E&M 194 [lb_av] Weight Measured blood pressure, diastolic 70 mm[Hg] BP chavez blood pressure, systolic 118 mm[Hg] BP sys pulse rate E&M 84 /min Heart rate weight E&M 192 [lb_av] Weight Measured Diagnostic Results Date Name Value Unit Range Description Chart Maintenance: outside lab added to flowsheet - Urinalysis microalbumin/total urine volume 5 mg/L Lab Report: Comp. Metabolic Panel, CBC W/DIFF - Chemistry sodium, serum 137 mmol/L 024-578 2030/08/16 carbon dioxide, venous blood 26.3 mmol/L 21.0-32.0 [...] LAB - Chemistry cholesterol, serum 156 mg/dL 451-015 4079/02/20 HDL cholesterol, serum 52 mg/dL > OR=40 [...] mg/dL Encounters Code Encounter Date Provider Facility CPT-84341 Level 3 Est. Patient 10:00:14 CDT [facility] CPT-20515 Level 3 Est. Patient 12:24:09 CDT Moy PARISH [facility] CPT-48326 Level 3 Est. Patient 14:34:57 CDT Prosper Arenas MD [facility] CPT-83268 Level 3 New Patient 15:44:53 GRADER MEAT Mekhi Dukes MD [facility] CPT-37224 Level 3 Est. Patient 14:53:34 GRADER MEAT Prosper Arenas MD [facility]-95021 Level 4 Est. Patient 10:05:41 GRADER MEAT Moy Rodrigokymrex [facility]-71323 Level 3 Est. Patient 11:18:32 CDT Moy Bradshawari Formerly named [facility] CPT-29598 Level 4 Est. Patient 11:05:10 CDT Moy Bradshawari Formerly named [facility] CPT-76252 Level 3 Est. Patient 11:08:27 GRADER MEAT Luxcarissashoaib Jose [facility] CPT-61235 Level 4 Est. Patient 10:43:59 CDT Prosper Arenas MD [facility]-01924 Level 3 Est. Patient 10:51:19 CDT Moy Garcia [facility] CPT-33627 Level 3 Est. Patient 10:20:31 CDT Moy Bradshawari [facility] CPT-17862 Level 3 Est. Patient 17:08:45 CDT Moy Wallacesania [facility] CPT-43386 Level 2 Est. Patient 13:54:36 CDT Augustina Mata APRN [facility] CPT-87940 Level 3 Est. Patient 12:00:42 CDT Prosper Arenas MD [facility] CPT-45978 Level 3 Est. Patient 09:57:28 GRADER MEAT Luxcarissashoaib Jose [facility]-92379 Level 3 Est. Patient 11:41:19 GRADER MEAT Luxcarissashoaib Jose [facility] CPT-07819 Level 4 Est. Patient 17:07:35 GRADER MEAT Malihshoaib Garcia [facility] CPT-53706 Level 5 Est. Patient 14:33:32 CDT Moy Garcia [facility] CPT-73442 Level 3 Est. Patient 12:25:35 CDT Prosper Arenas MD [facility] Procedures Code Procedure Name Date Entry Date Standard Description CPT-000 Give Appropriate Flu Vaccine 10:13:55 GRADER MEAT CPT-000 Give Immunizations Due 10:13:55 GRADER MEAT CPT-37621 HGBA1C - LAB USE ONLY 09:42:47 GRADER MEAT CPT-84559 TPSA - LAB USE ONLY 09:42:46 GRADER MEAT CPT-30337 Venipuncture Draw Fee 09:42:46 GRADER MEAT CPT-70852 Port a cath flush 13:33:18 GRADER MEAT CPT-36776 First Vx - Ix admin for Medicare patients 10:42:57 GRADER MEAT CPT-89895 Fluzone Preservative Free Intramuscular Suspension 10:42 :57 GRADER MEAT CPT-G0438 Initial Annual Wellness Exam 10:13:55 GRADER MEAT CPT-000 Give Appropriate Flu Vaccine 10:44:04 CDT CPT-000 Give Pneumovax 10:44:03 CDT CPT-06657 Port a cath flush 17:04:43 CDT CPT-06512 Prevnar 13 11:19:17 CDT CPT-70101 Fluzone Quadrivalent preservative free (>=3yrs.) 11:19: 17 CDT CPT-78063 Immunization Each Additional Inj 11:19:17 CDT CPT-03485 Immunization Single Admin 11:19:17 CDT CPT-30476 Port a cath flush 13:28:22 CDT CPT-TCMM Transitional Care Mgmt-Moderate 13:40:15 CDT CPT-G0008 Administration of Influenza Virus Vaccine 13:59:20 CDT CPT-23319 Fluzone High-Dose Intramuscular Suspension 13:59:20 CDT CPT-82795 Venipuncture Draw Fee 09:56:19 CDT CPT-OV Office Visit 15:46:10 CDT
--- OUTSIDE RECORDS SUMMARY | 2017-08-25 20:59 | XMS REPORT | Clinical Summary ---
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, type II [...] type II, uncontrolled 250.02 Active Maliheh Rodrigoglari CARDIAC NURSE Diabetes mellitus 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, type [...] with hyperglycemia 250.00 Active 03/21 Maliheh Ziglari CARDIAC NURSE Diabetes mellitus 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, type II or unspecified type, not stated as uncontrolled [facility] use of insulin treatment V58.67 Active Luxiheh Rodrigoglari CARDIAC NURSE Long-term (current) use of insulin Diabetes mellitus, type II with hypoglycemia 250.80 Active 07/22 Maliheh Ziglari CARDIAC NURSE Diabetes mellitus with other specified manifestations, type II or unspecified type, not stated as uncontrolled 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 Maliheh Ziglari CARDIAC NURSE Diabetes mellitus with renal manifestations, type II or unspecified type, not stated as uncontrolled Wellness exam V70.0 Active Dee Palmer APRN Routine general medical examination at a health care facility Fitting and adjustment of vascular catheter V58.81 Active 02/06 Dee Palmer APRN Encounter for fitting and adjustment of vascular catheter Unawareness of hypoglycemia in diabetes mellitus, type II 250.80 Active Maliheh Ziglari CARDIAC NURSE Diabetes mellitus with other specified manifestations, type [...] Status Provider Patient Instruction SIMVASTATIN 80 MG TABS 1/2 tablet daily SIMVASTATIN 97722606011 No Longer Active Mekhi Dukes MD Active OMEPRAZOLE 20 MG CPDR 1 qd OMEPRAZOLE 97618370078 No Longer Active Mekhi Dukes MD Active METOPROLOL TARTRATE 25 MG TABS 1/2 tablet twice a day METOPROLOL TARTRATE 48886160003 No Longer Active Mekhi Dukes MD Active LISINOPRIL 5 MG TABS 1 daily LISINOPRIL 20436914150 No Longer Active Mekhi Dukes MD Active NOVOLOG FLEXPEN 100 UNIT/ML SOPN Take 8 units with each meal, add 1u/50 for blood sugars above 150. INSULIN ASPART 18597541067 Active Moy DURANTP Active GABAPENTIN 300 MG ORAL CAPS 1 tab BID GABAPENTIN 84799911590 Active Tami Miller RN Active PREDNISONE 20 MG TABS Take 2 daily for 3 days and then 1 daily for 3 days PREDNISONE 53257311743 No Longer Active Maliheh Ziglari CARDIAC NURSE Active BENZONATATE 200 MG CAPS Take 1 tablet 3 times a day as needed for cough 07/29 BENZONATATE 41617698199 No Longer Active Prosper Arenas MD Active HYDROCHLOROTHIAZIDE 25 MG TABS 1 tablet by mouth daily HYDROCHLOROTHIAZIDE 41864656285 No Longer Active Prosper Arenas MD Active ACCU-CHEK JOANNA PLUS STRP check blood sugars 5x a day, before each meal and bedtime and 15 minutes after treating a low blood. sugar GLUCOSE BLOOD 55991310575 Active Maliheh Ziglari CARDIAC NURSE Active LANTUS SOLOSTAR 100 UNIT/ML SOLN Take 40 units at 7-8pm daily INSULIN GLARGINE 68482093738 Active Maliheh Ziglari CARDIAC NURSE Active MECLIZINE HCL 25 MG TABS 1 daily needed for dizziness MECLIZINE HCL 91073121046 No Longer Active Maliheh Ziglari CARDIAC NURSE Active BENZONATATE 200 MG CAPS 1 tab, 2-3 times a day BENZONATATE 27433965615 No Longer Active Maliheh Ziglari CARDIAC NURSE Active HALOPERIDOL 0.5 MG TABS one tablet three times a day HALOPERIDOL 34289661790 No Longer Active Moy Ziglari CARDIAC NURSE Active TRAZODONE HCL 50 MG TAB three tablets at bed time TRAZODONE HCL 89704393736 No Longer Active Malpapo Ziglari CARDIAC NURSE Active REVLIMID 25 MG CAPS one capsule daily for 21 days then off for 7 days 2014 LENALIDOMIDE 85997440839 No Longer Active Maleh Ziglari CARDIAC NURSE Active ZITHROMAX Z-EDDIE 250 MG TABS 2 today, then 1 daily for 4 days 2014 AZITHROMYCIN 22259096316 No Longer Active Augustina Mata SENIOR PRODUCTION SUPERVISOR Active NOVOLIN R RELION 100 UNIT/ML INJ SOLN 30- 40 units each meal sliding scale INSULIN REGULAR HUMAN 78819474373 No Longer Active Malpapo Ziglari CARDIAC NURSE Active CALCIUM 500/D 500-200 MG-UNIT TABS one tablet daily CALCIUM CARBONATE- VITAMIN D 12368024383 Active Prosper Arenas MD Active HYDROCODONE-ACETAMINOPHEN 5-500 MG TABS 1-2 FOUR TIMES A DAY, PRN HYDROCODONE-ACETAMINOPHEN 23408811269 No Longer Active Prosper Arenas MD Active ASPIRIN 81 MG TAB 1 tablet by mouth daily ASPIRIN 88442738351 Active Prosper Arenas MD Active DOXYCYCLINE HYCLATE 100 MG CAPS take one capsule by mouth twice daily for ten days DOXYCYCLINE HYCLATE 32168997449 No Longer Active Mekhi Dukes MD Active DOXYCYCLINE HYCLATE 100 MG CAPS take one capsule by mouth twice daily for ten days DOXYCYCLINE HYCLATE 100 MG CAPS 0533967 DOXYCYCLINE HYCLATE Inactive HYDROCODONE-ACETAMINOPHEN 5-500 MG TABS 1-2 FOUR TIMES A DAY, PRN HYDROCODONE-ACETAMINOPHEN 5-500 MG TABS 979046 HYDROCODONE- ACETAMINOPHEN Inactive NOVOLIN R RELION 100 UNIT/ML INJ SOLN 30- 40 units each meal sliding scale NOVOLIN R RELION 100 UNIT/ML INJ SOLN INSULIN REGULAR HUMAN Inactive ZITHROMAX Z-EDDIE 250 MG TABS 2 today, then 1 daily for 4 days 2014 ZITHROMAX Z-EDDIE 250 MG TABS 477322 AZITHROMYCIN Inactive REVLIMID 25 MG CAPS one capsule daily for 21 days then off for 7 days 2014 REVLIMID 25 MG CAPS LENALIDOMIDE Inactive TRAZODONE HCL 50 MG TAB three tablets at bed time TRAZODONE HCL 50 MG TAB 351054 TRAZODONE HCL Inactive HALOPERIDOL 0.5 MG TABS one tablet three times a day HALOPERIDOL 0.5 MG TABS 245626 HALOPERIDOL Inactive BENZONATATE 200 MG CAPS 1 tab, 2-3 times a day BENZONATATE 200 MG CAPS 234796 BENZONATATE Inactive MECLIZINE HCL 25 MG TABS 1 daily needed for dizziness MECLIZINE HCL 25 MG TABS 859732 MECLIZINE HCL Inactive HYDROCHLOROTHIAZIDE 25 MG TABS 1 tablet by mouth daily HYDROCHLOROTHIAZIDE 25 MG TABS 367441 HYDROCHLOROTHIAZIDE Inactive PREDNISONE 20 MG TABS Take 2 daily for 3 days and then 1 daily for 3 days PREDNISONE 20 MG TABS 276358 PREDNISONE Inactive LISINOPRIL 5 MG TABS 1 daily LISINOPRIL 5 MG TABS 206512 LISINOPRIL Inactive METOPROLOL TARTRATE 25 MG TABS 1/2 tablet twice a day METOPROLOL TARTRATE 25 MG TABS 117840 METOPROLOL TARTRATE Inactive OMEPRAZOLE 20 MG CPDR 1 qd OMEPRAZOLE 20 MG CPDR 031072 OMEPRAZOLE Inactive SIMVASTATIN 80 MG TABS 1/2 tablet daily SIMVASTATIN 80 MG TABS 496039 SIMVASTATIN Inactive BENZONATATE 200 MG CAPS Take 1 tablet 3 times a day as needed for cough 07/29 BENZONATATE 200 MG CAPS 840388 BENZONATATE Inactive Immunizations Vaccine Administration Date Value [...] Value Unit Range Description blood pressure, diastolic 68 mm[Hg] BP chavez [...] temperature weight E&M 194 [lb_av] Weight Measured Diagnostic Results Date Name Value Unit Range Description Chart Maintenance: outside lab added to flowsheet - Urinalysis microalbumin/total urine volume 5 mg/L Lab Report: Comp. Metabolic Panel, CBC W/DIFF - Chemistry sodium, serum 137 mmol/L 319-222 3003/08/16 carbon dioxide, venous blood 26.3 mmol/L 21.0-32.0 [...] % of total hemoglobin 7.7 % 4.3-6.0 hemoglobin A1C, blood, as % of total hemoglobin 6.6 % 4.3-6.0 Lab Report: Lipid Panel, Glucose- [facility] - Chemistry cholesterol, serum 115 mg/dL 397-244 3769/08/18 triglyceride, serum, fasting 89 mg/dL 30-200 HDL cholesterol, serum 46 mg/dL 32-60 LDL cholesterol, serum 51 mg/dL 0-130 blood glucose 104 mg/dL 65-110 Lab Report: LIPID PANEL- [facility] - Chemistry cholesterol, serum 156 mg/dL 457-572 0114/02/20 HDL cholesterol, serum 52 mg/dL > OR=40 [...] mg/dL Encounters Code Encounter Date Provider Facility CPT-28901 Level 3 New Patient 17:05:24 CDT Ismael Gracia MD [facility] CPT-50896 Level 2 Est. Patient 15:43:17 CDT Mekhi Dukes MD [facility] CPT-49034 Level 3 Est. Patient 09:30:37 CDT [facility] [place] [facility] Level 3 Est. Patient 10:00:14 CDT Mekhi Dukes MD [facility] CPT-92859 Level 3 Est. Patient 12:24:09 CDT [facility] [place] [facility]PT-39173 Level 3 Est. Patient 14:34:57 CDT Prosper Arenas MD [facility] CPT-87211 Level 3 New Patient 15:44:53 FRONT DESK AGENT Mekhi Dukes MD [facility] CPT-81242 Level 3 Est. Patient 14:53:34 FRONT DESK AGENT Prosper Arenas MD [facility] CPT-19923 Level 4 Est. Patient 10:05:41 FRONT DESK AGENT [facility] [place] [facility]64803 Level 3 Est. Patient 11:18:32 CDT [facility] [place] CPT-09826 Level 4 Est. Patient 11:05:10 CDT [facility] [place] CPT-72722 Level 3 Est. Patient 11:08:27 FRONT DESK AGENT [facility] Level 4 Est. Patient 10:43:59 CDT Prosper Arenas MD [facility] CPT-61417 Level 3 Est. Patient 10:51:19 CDT [facility]19758 Level 3 Est. Patient 10:20:31 CDT Moy Garcia [facility] CPT-09514 Level 3 Est. Patient 17:08:45 [facility] CPT-98822 Level 2 Est. Patient 13:54:36 CDT Augustina Mata BESSY [facility] CPT-71110 Level 3 Est. Patient 12:00:42 CDT Prosper Arenas MD [facility] CPT-28226 Level 3 Est. Patient 09:57:28 FRONT DESK AGENT [facility] Level 3 Est. Patient 11:41:19 FRONT DESK [facility]ENT [facility]-59195 Level 4 Est. Patient 17:07:35 FRONT DESK AGENT [facility] CPT-46252 Level 5 Est. Patient 14:33:[address] [facility] CPT-23349 Level 3 Est. Patient 12:25:35 CDT Prosper Arenas MD [facility] Procedures Code Procedure Name Date Entry Date Standard Description CPT-000 Give Appropriate Flu Vaccine 10:13:55 FRONT DESK AGENT CPT-000 Give Immunizations Due 10:13:55 FRONT DESK AGENT CPT-90882 HGBA1C - LAB USE ONLY 09:42:47 FRONT DESK AGENT CPT-49471 TPSA - LAB USE ONLY 09:42:46 FRONT DESK AGENT CPT-43527 Venipuncture Draw Fee 09:42:46 FRONT DESK AGENT CPT-86263 Port a cath flush 13:33:18 FRONT DESK AGENT CPT-27449 First Vx - Ix admin for Medicare patients 10:42:57 FRONT DESK AGENT CPT-67254 Fluzone Preservative Free Intramuscular Suspension 10:42 :57 FRONT DESK AGENT CPT-G0438 Initial Annual Wellness Exam 10:13:55 FRONT DESK AGENT CPT-000 Give Appropriate Flu Vaccine 10:44:04 CDT CPT-000 Give Pneumovax 10:44:03 CDT CPT-04257 Port a cath flush 17:04:43 CDT CPT-81650 Prevnar 13 11:19:17 CDT CPT-40739 Fluzone Quadrivalent preservative free (>=3yrs.) 11:19: 17 CDT CPT-74266 Immunization Each Additional Inj 11:19:17 CDT CPT-72077 Immunization Single Admin 11:19:17 CDT CPT-51883 Port a cath flush 13:28:22 CDT CPT-TCMM Transitional Care Mgmt-Moderate 13:40:15 CDT CPT-G0008 Administration of Influenza Virus Vaccine 13:59:20 CDT CPT-27208 Fluzone High-Dose Intramuscular Suspension 13:59:20 CDT CPT-17580 Venipuncture Draw Fee 09:56:19 CDT CPT-OV Office Visit 15:46:10 CDT
--- OUTSIDE RECORDS SUMMARY | 2017-08-25 21:00 | XMS REPORT | Clinical Summary ---
Author Author Admin, IWONA Organization [employer] Address Unknown Phone Unavailable Allergies, Adverse Reactions, Alerts Allergy Name Reaction Description Start Date Severity Status Provider ERYTHROMYCIN Stomach cramps Moderate Active Prosper Arenas MD CODEINE Critical Active Maliheh Ziglari SLURRY CONTROL OPERATOR HELPER DARVOCET Critical Active Maliheh Ziglari SLURRY CONTROL OPERATOR HELPER LEVAQUIN Critical Active Maliheh Ziglari SLURRY CONTROL OPERATOR HELPER Conditions or Problems Problem Name Problem Code Onset Date Status Entry Date Provider Comment Standard Description Annotate Diabetes, Type 2 250.00 Resolved 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 system 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 mellitus 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, type II [...] type II, uncontrolled 250.02 Active Maliheh Rodrigoglari SLURRY CONTROL OPERATOR HELPER Diabetes mellitus 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, type [...] with hyperglycemia 250.00 Active 03/21 Maliheh Ziglari SLURRY CONTROL OPERATOR HELPER Diabetes mellitus 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, type II or unspecified type, not stated as uncontrolled [facility] use of insulin treatment V58.67 Active Luxiheh Rodrigoglari SLURRY CONTROL OPERATOR HELPER Long-term (current) use of insulin Diabetes mellitus, type II with hypoglycemia 250.80 Active 07/22 Maliheh Ziglari SLURRY CONTROL OPERATOR HELPER Diabetes mellitus with other specified manifestations, type II or unspecified type, not stated as uncontrolled 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 Maliheh Ziglari SLURRY CONTROL OPERATOR HELPER Diabetes mellitus with renal manifestations, type II or unspecified type, not stated as uncontrolled Wellness exam V70.0 Active Dee Palmer APRN Routine general medical examination at a health care facility Fitting and adjustment of vascular catheter V58.81 Active 02/06 Dee Palmer APRN Encounter for fitting and adjustment of vascular catheter Unawareness of hypoglycemia in diabetes mellitus, type II 250.80 Active Maliheh Ziglari SLURRY CONTROL OPERATOR HELPER Diabetes mellitus with other specified manifestations, type [...] MG ORAL CAPS 1 tab BID GABAPENTIN 51768315625 Active Tami Miller RN Active PREDNISONE 20 MG TABS Take 2 daily for 3 days and then 1 daily for 3 days PREDNISONE 58330250442 No Longer Active Moy PARISH Active BENZONATATE 200 MG CAPS Take 1 tablet 3 times a day as needed for cough 07/29 BENZONATATE 54780383817 No Longer Active Prosper Arenas MD Active HYDROCHLOROTHIAZIDE 25 MG TABS 1 tablet by mouth daily HYDROCHLOROTHIAZIDE 90212296325 No Longer Active Prosper Arenas MD Active ACCU-CHEK JOANNA PLUS STRP check blood sugars 5x a day, before each meal and bedtime and 15 minutes after treating a low blood. sugar GLUCOSE BLOOD 52261074479 Active Maliheh Ziglari SLURRY CONTROL OPERATOR HELPER Active NOVOLOG FLEXPEN 100 UNIT/ML SOPN Take 25 units with each meal, add 1u/50 for blood sugars above 150. INSULIN ASPART 38990598606 Active Maliheh Ziglari SLURRY CONTROL OPERATOR HELPER Active LANTUS SOLOSTAR 100 UNIT/ML SOLN Take 40 units at 7-8pm daily INSULIN GLARGINE 39123784611 Active Maliheh Ziglari SLURRY CONTROL OPERATOR HELPER Active MECLIZINE HCL 25 MG TABS 1 daily needed for dizziness MECLIZINE HCL 45337863217 No Longer Active Maliheh Ziglari SLURRY CONTROL OPERATOR HELPER Active BENZONATATE 200 MG CAPS 1 tab, 2-3 times a day BENZONATATE 33447267913 No Longer Active Maliheh Ziglari SLURRY CONTROL OPERATOR HELPER Active HALOPERIDOL 0.5 MG TABS one tablet three times a day HALOPERIDOL 29953007600 No Longer Active Maliheh Ziglari SLURRY CONTROL OPERATOR HELPER Active TRAZODONE HCL 50 MG TAB three tablets at bed time TRAZODONE HCL 93257309366 No Longer Active Maliheh Ziglari SLURRY CONTROL OPERATOR HELPER Active REVLIMID 25 MG CAPS one capsule daily for 21 days then off for 7 days 2014 LENALIDOMIDE 76215168881 No Longer Active Maliheh Ziglari SLURRY CONTROL OPERATOR HELPER Active ZITHROMAX Z-EDDIE 250 MG TABS 2 today, then 1 daily for 4 days 2014 AZITHROMYCIN 89095023460 No Longer Active Augustina Yotalaum SHOW GIRL Active NOVOLIN R RELION 100 UNIT/ML INJ SOLN 30- 40 units each meal sliding scale INSULIN REGULAR HUMAN 63488694970 No Longer Active Moy PARISH Active LISINOPRIL 5 MG TABS 1 daily LISINOPRIL 91696863818 Active Prosper Arenas MD Active CALCIUM 500/D 500-200 MG-UNIT TABS one tablet daily CALCIUM CARBONATE- VITAMIN D 12282161451 Active Prosper Arenas MD Active HYDROCODONE-ACETAMINOPHEN 5-500 MG TABS 1-2 FOUR TIMES A DAY, PRN HYDROCODONE-ACETAMINOPHEN 40400483158 No Longer Active Prosper Arenas MD Active SIMVASTATIN 80 MG TABS 1/2 tablet daily SIMVASTATIN 36511148641 Active Prosper Arenas MD Active METOPROLOL TARTRATE 25 MG TABS 1/2 tablet twice a day METOPROLOL TARTRATE 00737068863 Active Prosper Arenas MD Active ASPIRIN 81 MG TAB 1 tablet by mouth daily ASPIRIN 39249471450 Active Prosper Arenas MD Active OMEPRAZOLE 20 MG CPDR 1 qd OMEPRAZOLE 29970257198 Active DARCIE Miller Active DOXYCYCLINE HYCLATE 100 MG CAPS take one capsule by mouth twice daily for ten days DOXYCYCLINE HYCLATE 81323208487 No Longer Active Mekhi Dukes MD Active DOXYCYCLINE HYCLATE 100 MG CAPS take one capsule by mouth twice daily for ten days DOXYCYCLINE HYCLATE 100 MG CAPS 2503702 DOXYCYCLINE HYCLATE Inactive HALOPERIDOL 0.5 MG TABS one tablet three times a day HALOPERIDOL 0.5 MG TABS 258770 HALOPERIDOL Inactive HYDROCHLOROTHIAZIDE 25 MG TABS 1 tablet by mouth daily HYDROCHLOROTHIAZIDE 25 MG TABS 564790 HYDROCHLOROTHIAZIDE Inactive PREDNISONE 20 MG TABS Take 2 daily for 3 days and then 1 daily for 3 days PREDNISONE 20 MG TABS 341948 PREDNISONE Inactive TRAZODONE HCL 50 MG TAB three tablets at bed time TRAZODONE HCL 50 MG TAB 041595 TRAZODONE HCL Inactive MECLIZINE HCL 25 MG TABS 1 daily needed for dizziness MECLIZINE HCL 25 MG TABS 293488 MECLIZINE HCL Inactive HYDROCODONE-ACETAMINOPHEN 5-500 MG TABS 1-2 FOUR TIMES A DAY, PRN HYDROCODONE-ACETAMINOPHEN 5-500 MG TABS HYDROCODONE- ACETAMINOPHEN Inactive BENZONATATE 200 MG CAPS 1 tab, 2-3 times a day BENZONATATE 200 MG CAPS 570703 BENZONATATE Inactive BENZONATATE 200 MG CAPS Take 1 tablet 3 times a day as needed for cough 07/29 BENZONATATE 200 MG CAPS 592763 BENZONATATE Inactive ZITHROMAX Z-EDDIE 250 MG TABS 2 today, then 1 daily for 4 days 2014 ZITHROMAX Z-EDDIE 250 MG TABS 2212362 AZITHROMYCIN Inactive REVLIMID 25 MG CAPS one capsule daily for 21 days then off for 7 days 2014 REVLIMID 25 MG CAPS LENALIDOMIDE Inactive NOVOLIN R RELION 100 UNIT/ML INJ SOLN 30- 40 units each meal sliding scale NOVOLIN R RELION 100 UNIT/ML INJ SOLN INSULIN REGULAR HUMAN Inactive Immunizations Vaccine Administration Date Value Standard [...] W/DIFF - Chemistry sodium, serum 137 mmol/L 319-267 0095/08/16 carbon dioxide, venous blood 26.3 mmol/L 21.0-32.0 [...] total hemoglobin 7.7 % 4.3-6.0 Lab Report: Lipid Panel, Glucose - Chemistry cholesterol, serum 115 mg/dL 462-545 2441/08/18 triglyceride, serum, fasting 89 mg/dL 30-200 HDL cholesterol, serum 46 mg/dL 32-60 LDL cholesterol, serum 51 mg/dL 0-130 blood glucose 104 mg/dL 65-110 Lab Report: LIPID PANEL- [facility] - Chemistry cholesterol, serum 156 mg/dL 294-522 1411/02/20 HDL cholesterol, serum 52 mg/dL > OR=40 [...] mg/dL Encounters Code Encounter Date Provider Facility CPT-69756 Level 3 Est. Patient 10:00:14 CDT Mekhi Dukes MD [facility] CPT-04143 Level 3 Est. Patient 12:24:09 CDT Moy Garcia [facility]-63146 Level 3 Est. Patient 14:34:57 CDT Prosper Arenas MD [facility] CPT-18840 Level 3 New Patient 15:44:53 REGIONAL ECONOMIST Mekhi Dukes MD [facility]-54959 Level 3 Est. Patient 14:53:34 REGIONAL ECONOMIST Prosper Arenas MD [facility] CPT-00500 Level 4 Est. Patient 10:05:41 REGIONAL ECONOMIST Moy Garcia [facility]-52750 Level 3 Est. Patient 11:18:32 [facility] Level 4 Est. Patient 11:05:10 [facility]70[facility] Level 3 Est. Patient 11:08:27 REGIONAL ECONOMIST Moy Garcia [facility] CPT-69899 Level 4 Est. Patient 10:43:59 CDT Prosper Arenas MD [facility] CPT-33829 Level 3 Est. Patient 10:51:19 CDT Moy Garcia [facility] CPT-39204 Level 3 Est. Patient 10:20:31 CDT Moy Garcia [facility] CPT-96975 Level 3 Est. Patient 17:08:45 CDT Moy Garcia [facility] CPT-36530 Level 2 Est. Patient 13:54:36 CDT Augustina Mata APRN [facility] CPT-29191 Level 3 Est. Patient 12:00:42 CDT Prosper Arenas MD [facility]-72615 Level 3 Est. Patient 09:57:28 REGIONAL ECONOMIST [facility] CPT-76946 Level 3 Est. Patient 11:41:19 REGIONAL ECONOMIST [facility] CPT-51191 Level 4 Est. Patient 17:07:35 REGIONAL ECONOMIST [facility] CPT-87323 Level 5 Est. Patient 14:33:32 [facility]T [facility] Level 3 Est. Patient 12:25:35 CDT Prosper Arenas MD [facility] Procedures Code Procedure Name Date Entry Date Standard Description CPT-000 Give Appropriate Flu Vaccine 10:13:55 REGIONAL ECONOMIST CPT-000 Give Immunizations Due 10:13:55 REGIONAL ECONOMIST CPT-54474 HGBA1C - LAB USE ONLY 09:42:47 REGIONAL ECONOMIST CPT-28802 TPSA - LAB USE ONLY 09:42:46 REGIONAL ECONOMIST CPT-97614 Venipuncture Draw Fee 09:42:46 REGIONAL ECONOMIST CPT-73666 Port a cath flush 13:33:18 REGIONAL ECONOMIST CPT-64450 First Vx - Ix admin for Medicare patients 10:42:57 REGIONAL ECONOMIST CPT-95222 Fluzone Preservative Free Intramuscular Suspension 10:42 :57 REGIONAL ECONOMIST CPT-G0438 Initial Annual Wellness Exam 10:13:55 REGIONAL ECONOMIST CPT-000 Give Appropriate Flu Vaccine 10:44:04 CDT CPT-000 Give Pneumovax 10:44:03 CDT CPT-28398 Port a cath flush 17:04:43 CDT CPT-62887 Prevnar 13 11:19:17 CDT CPT-20469 Fluzone Quadrivalent preservative free (>=3yrs.) 11:19: 17 CDT CPT-55810 Immunization Each Additional Inj 11:19:17 CDT CPT-33326 Immunization Single Admin 11:19:17 CDT CPT-77134 Port a cath flush 13:28:22 CDT CPT-TCMM Transitional Care Mgmt-Moderate 13:40:15 CDT CPT-G0008 Administration of Influenza Virus Vaccine 13:59:20 CDT CPT-80717 Fluzone High-Dose Intramuscular Suspension 13:59:20 CDT CPT-76831 Venipuncture Draw Fee 09:56:19 CDT CPT-OV Office Visit 15:46:10 CDT
--- OUTSIDE RECORDS SUMMARY | 2017-08-25 21:00 | XMS REPORT | Clinical Summary ---
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, 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 [...] type II, uncontrolled 250.02 Active Maliheh Rodrigoglari FLOOR INSPECTOR Diabetes mellitus 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, type [...] with hyperglycemia 250.00 Active 03/21 Maliheh Ziglari FLOOR INSPECTOR Diabetes mellitus 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, type II or unspecified type, not stated as uncontrolled detention use of insulin treatment V58.67 Active Luxiheh Rodrigoglari FLOOR INSPECTOR Long-term (current) use of insulin Diabetes mellitus, type II with hypoglycemia 250.80 Active 07/22 Maliheh Ziglari FLOOR INSPECTOR Diabetes mellitus with other specified manifestations, type II or unspecified type, not stated as uncontrolled 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 Maliheh Ziglari FLOOR INSPECTOR Diabetes mellitus with renal manifestations, type II or unspecified type, not stated as uncontrolled Wellness exam V70.0 Active Dee Palmer APRN Routine general medical examination at a health care facility Fitting and adjustment of vascular catheter V58.81 Active 02/06 Dee Palmer APRN Encounter for fitting and adjustment of vascular catheter Unawareness of hypoglycemia in diabetes mellitus, type II 250.80 Active Maliheh Ziglari FLOOR INSPECTOR Diabetes mellitus with other specified manifestations, type [...] Inactive Mekhi Dukes MD Vertigo ICD-780.4 Inactive Mekih Dukes MD Encounter for fitting and adjustment of vascular catheter ICD-V58.81 Inactive Mekhi Dukes MD Cough ICD-786.2 Inactive Mekhi Dukes MD Headache ICD-784.0 Inactive Mekhi Dukes MD Medication List Medication Instructions Start Date Stop Date Generic Name NDC Status Provider Patient Instruction SIMVASTATIN 80 MG TABS 1/2 tablet daily SIMVASTATIN 14996629854 No Longer Active Mekhi Dukes MD Active OMEPRAZOLE 20 MG CPDR 1 qd OMEPRAZOLE 81633456921 No Longer Active Mekhi Dukes MD Active METOPROLOL TARTRATE 25 MG TABS 1/2 tablet twice a day METOPROLOL TARTRATE 04315634445 No Longer Active Mekhi Dukes MD Active LISINOPRIL 5 MG TABS 1 daily LISINOPRIL 76868712350 No Longer Active Mekhi Dukes MD Active NOVOLOG FLEXPEN 100 UNIT/ML SOPN Take 8 units with each meal, add 1u/50 for blood sugars above 150. INSULIN ASPART 39910300974 Active Moy DURANTP Active GABAPENTIN 300 MG ORAL CAPS 1 tab BID GABAPENTIN 95731445860 Active Tami Miller RN Active PREDNISONE 20 MG TABS Take 2 daily for 3 days and then 1 daily for 3 days PREDNISONE 62189678817 No Longer Active Maliheh Ziglari FLOOR INSPECTOR Active BENZONATATE 200 MG CAPS Take 1 tablet 3 times a day as needed for cough 07/29 BENZONATATE 94810746977 No Longer Active Prosper Arenas MD Active HYDROCHLOROTHIAZIDE 25 MG TABS 1 tablet by mouth daily HYDROCHLOROTHIAZIDE 30911981518 No Longer Active Prosper Arenas MD Active ACCU-CHEK JOANNA PLUS STRP check blood sugars 5x a day, before each meal and bedtime and 15 minutes after treating a low blood. sugar GLUCOSE BLOOD 36207586982 Active Maliheh Ziglari FLOOR INSPECTOR Active LANTUS SOLOSTAR 100 UNIT/ML SOLN Take 40 units at 7-8pm daily INSULIN GLARGINE 94649945242 Active Maliheh Ziglari FLOOR INSPECTOR Active MECLIZINE HCL 25 MG TABS 1 daily needed for dizziness MECLIZINE HCL 35998475437 No Longer Active Maliheh Ziglari FLOOR INSPECTOR Active BENZONATATE 200 MG CAPS 1 tab, 2-3 times a day BENZONATATE 15991259055 No Longer Active Maliheh Ziglari FLOOR INSPECTOR Active HALOPERIDOL 0.5 MG TABS one tablet three times a day HALOPERIDOL 36927088623 No Longer Active Moy Ziglari FLOOR INSPECTOR Active TRAZODONE HCL 50 MG TAB three tablets at bed time TRAZODONE HCL 98011680714 No Longer Active Malpapo Ziglari FLOOR INSPECTOR Active REVLIMID 25 MG CAPS one capsule daily for 21 days then off for 7 days 2014 LENALIDOMIDE 75194801526 No Longer Active Maleh Ziglari FLOOR INSPECTOR Active ZITHROMAX Z-EDDIE 250 MG TABS 2 today, then 1 daily for 4 days 2014 AZITHROMYCIN 81702700942 No Longer Active Augustina Mata SUPERVISOR TREATING AND PUMPING Active NOVOLIN R RELION 100 UNIT/ML INJ SOLN 30- 40 units each meal sliding scale INSULIN REGULAR HUMAN 83353682626 No Longer Active Malpapo Ziglari FLOOR INSPECTOR Active CALCIUM 500/D 500-200 MG-UNIT TABS one tablet daily CALCIUM CARBONATE- VITAMIN D 15954049450 Active Prosper Arenas MD Active HYDROCODONE-ACETAMINOPHEN 5-500 MG TABS 1-2 FOUR TIMES A DAY, PRN HYDROCODONE-ACETAMINOPHEN 22028894464 No Longer Active Prosper Arenas MD Active ASPIRIN 81 MG TAB 1 tablet by mouth daily ASPIRIN 80083381730 Active Prosepr Arenas MD Active DOXYCYCLINE HYCLATE 100 MG CAPS take one capsule by mouth twice daily for ten days DOXYCYCLINE HYCLATE 63463044055 No Longer Active Mekhi Dukes MD Active DOXYCYCLINE HYCLATE 100 MG CAPS take one capsule by mouth twice daily for ten days DOXYCYCLINE HYCLATE 100 MG CAPS 4851164 DOXYCYCLINE HYCLATE Inactive HYDROCODONE-ACETAMINOPHEN 5-500 MG TABS 1-2 FOUR TIMES A DAY, PRN HYDROCODONE-ACETAMINOPHEN 5-500 MG TABS 871666 HYDROCODONE- ACETAMINOPHEN Inactive NOVOLIN R RELION 100 UNIT/ML INJ SOLN 30- 40 units each meal sliding scale NOVOLIN R RELION 100 UNIT/ML INJ SOLN INSULIN REGULAR HUMAN Inactive ZITHROMAX Z-EDDIE 250 MG TABS 2 today, then 1 daily for 4 days 2014 ZITHROMAX Z-EDDIE 250 MG TABS 635180 AZITHROMYCIN Inactive REVLIMID 25 MG CAPS one capsule daily for 21 days then off for 7 days 2014 REVLIMID 25 MG CAPS LENALIDOMIDE Inactive TRAZODONE HCL 50 MG TAB three tablets at bed time TRAZODONE HCL 50 MG TAB 836542 TRAZODONE HCL Inactive HALOPERIDOL 0.5 MG TABS one tablet three times a day HALOPERIDOL 0.5 MG TABS 902212 HALOPERIDOL Inactive BENZONATATE 200 MG CAPS 1 tab, 2-3 times a day BENZONATATE 200 MG CAPS 514939 BENZONATATE Inactive MECLIZINE HCL 25 MG TABS 1 daily needed for dizziness MECLIZINE HCL 25 MG TABS 142029 MECLIZINE HCL Inactive HYDROCHLOROTHIAZIDE 25 MG TABS 1 tablet by mouth daily HYDROCHLOROTHIAZIDE 25 MG TABS 727059 HYDROCHLOROTHIAZIDE Inactive PREDNISONE 20 MG TABS Take 2 daily for 3 days and then 1 daily for 3 days PREDNISONE 20 MG TABS 169992 PREDNISONE Inactive LISINOPRIL 5 MG TABS 1 daily LISINOPRIL 5 MG TABS 092634 LISINOPRIL Inactive METOPROLOL TARTRATE 25 MG TABS 1/2 tablet twice a day METOPROLOL TARTRATE 25 MG TABS 892175 METOPROLOL TARTRATE Inactive OMEPRAZOLE 20 MG CPDR 1 qd OMEPRAZOLE 20 MG CPDR 630764 OMEPRAZOLE Inactive SIMVASTATIN 80 MG TABS 1/2 tablet daily SIMVASTATIN 80 MG TABS 435071 SIMVASTATIN Inactive BENZONATATE 200 MG CAPS Take 1 tablet 3 times a day as needed for cough 07/29 BENZONATATE 200 MG CAPS 332247 BENZONATATE Inactive Immunizations Vaccine Administration Date Value [...] W/DIFF - Chemistry sodium, serum 137 mmol/L 030-936 7865/08/16 carbon dioxide, venous blood 26.3 mmol/L 21.0-32.0 [...] LABS - Chemistry cholesterol, serum 115 mg/dL 359-931 6112/08/18 triglyceride, serum, fasting 89 mg/dL 30-200 HDL cholesterol, serum 46 mg/dL 32-60 LDL cholesterol, serum 51 mg/dL 0-130 blood glucose 104 mg/dL 65-110 Lab Report: LIPID PANEL- REPOWER LAB - Chemistry cholesterol, serum 156 mg/dL 307-483 7766/02/20 HDL cholesterol, serum 52 mg/dL > OR=40 [...] mg/dL Encounters Code Encounter Date Provider Facility CPT-20496 Level 4 Est. Patient 16:29:19 CDT Mekhi Dukes MD [facility] CPT-19790 Level 3 New Patient 17:05:24 CDT Ismael Gracia MD [facility] CPT-13876 Level 2 Est. Patient 15:43:17 CDT Mekhi Dukes MD [facility] CPT-23105 Level 3 Est. Patient 09:30:37 [facility] CPT-30409 Level 3 Est. Patient 10:00:14 CDT Mekhi Dukes MD [facility] CPT-45039 Level 3 Est. Patient 12:24:09 CDT [facility] Level 3 Est. Patient 14:34:57 CDT Prosper Arenas MD [facility] CPT-12923 Level 3 New Patient 15:44:53 MH TEACHER Mekhi Dukes MD [facility] CPT-37949 Level 3 Est. Patient 14:53:34 MH TEACHER Prosper Arenas MD [facility] CPT-95376 Level 4 Est. Patient 10:05:41 MH TEACHER Moy Garcia [facility] CPT-27699 Level 3 Est. Patient 11:18:32 CDT [facility] CPT-96533 Level 4 Est. Patient 11:05:10 CDT [facility] Level 3 Est. Patient 11:08:27 MH TEACHER Moy Garcia [facility] CPT-74370 Level 4 Est. Patient 10:43:59 CDT Prosper Arenas MD [facility] CPT-40255 Level 3 Est. [facility] 10:51:19 [facility] Level 3 Est. Patient 10:20:31 CDT [facility] Level 3 Est. Patient 17:08:45 CDT [facility] CPT-10978 Level 2 Est. Patient 13:54:36 CDT Augustina Adolfo DOHERTY [facility] CPT-64973 Level 3 Est. Patient 12:00:42 CDT Prosper Arenas MD [facility] CPT-69881 Level 3 Est. Patient 09:57:28 MH TEACHER [facility] CPT-05238 Level 3 Est. Patient 11:41:19 MH TEACHER [facility] CPT-18339 Level 4 Est. Patient 17:07:35 MH TEACHER [facility] CPT-24870 Level 5 Est. Patient 14:33:32 CDT [facility] CPT-56525 Level 3 Est. Patient 12:25:35 CDT Prosper Arenas MD [facility] Procedures Code Procedure Name Date Entry Date Standard Description CPT-000 Give Appropriate Flu Vaccine 10:13:55 MH TEACHER CPT-000 Give Immunizations Due 10:13:55 MH TEACHER CPT-84358 HGBA1C - LAB USE ONLY 09:42:47 MH TEACHER CPT-95355 TPSA - LAB USE ONLY 09:42:46 MH TEACHER CPT-07302 Venipuncture Draw Fee 09:42:46 MH TEACHER CPT-31096 Port a cath flush 13:33:18 MH TEACHER CPT-54912 First Vx - Ix admin for Medicare patients 10:42:57 MH TEACHER CPT-84693 Fluzone Preservative Free Intramuscular Suspension 10:42 :57 MH TEACHER CPT-G0438 Initial Annual Wellness Exam 10:13:55 MH TEACHER CPT-000 Give Appropriate Flu Vaccine 10:44:04 CDT CPT-000 Give Pneumovax 10:44:03 CDT CPT-57989 Port a cath flush 17:04:43 CDT CPT-57214 Prevnar 13 11:19:17 CDT CPT-83873 Fluzone Quadrivalent preservative free (>=3yrs.) 11:19: 17 CDT CPT-00551 Immunization Each Additional Inj 11:19:17 CDT CPT-76430 Immunization Single Admin 11:19:17 CDT CPT-03648 Port a cath flush 13:28:22 CDT CPT-TCMM Transitional Care Mgmt-Moderate 13:40:15 CDT CPT-G0008 Administration of Influenza Virus Vaccine 13:59:20 CDT CPT-69757 Fluzone High-Dose Intramuscular Suspension 13:59:20 CDT CPT-85264 Venipuncture Draw Fee 09:56:19 CDT CPT-OV Office Visit 15:46:10 CDT
--- OUTSIDE RECORDS SUMMARY | 2017-08-25 21:01 | XMS REPORT | Clinical Summary ---
Author Author Admin, IWONA Organization [employer] Address Unknown Phone Unavailable Allergies, Adverse Reactions, Alerts Allergy Name Reaction Description Start Date Severity Status Provider ERYTHROMYCIN Stomach cramps Moderate Active Prosper Arenas MD CODEINE Critical Active Maliheh Ziglari CARDIOVASCULAR OPERATING ROOM NURSE DARVOCET Critical Active Maliheh Ziglari CARDIOVASCULAR OPERATING ROOM NURSE LEVAQUIN Critical Active Maliheh Ziglari CARDIOVASCULAR OPERATING ROOM NURSE Conditions or Problems Problem Name Problem Code Onset Date Status Entry Date Provider Comment Standard Description Annotate Diabetes, Type 2 250.00 Resolved 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 mellitus 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, type II [...] type II, uncontrolled 250.02 Active Maliheh Rodrigoglari CARDIOVASCULAR OPERATING ROOM NURSE Diabetes mellitus 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, [...] with hyperglycemia 250.00 Active 03/21 Maliheh Ziglari CARDIOVASCULAR OPERATING ROOM NURSE Diabetes mellitus 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, type II or unspecified type, not stated as uncontrolled custodial use of insulin treatment V58.67 Active Luxiheh Rodrigoglari CARDIOVASCULAR OPERATING ROOM NURSE Long-term (current) use of insulin Diabetes mellitus, type II with hypoglycemia 250.80 Active 07/22 Maliheh Ziglari CARDIOVASCULAR OPERATING ROOM NURSE Diabetes mellitus with other specified manifestations, type II or unspecified type, not stated as uncontrolled 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 Maliheh Ziglari CARDIOVASCULAR OPERATING ROOM NURSE Diabetes mellitus with renal manifestations, type II or unspecified type, not stated as uncontrolled Wellness exam V70.0 Active Dee Palmer APRN Routine general medical examination at a health care facility Fitting and adjustment of vascular catheter V58.81 Active 02/06 Dee Palmer APRN Encounter for fitting and adjustment of vascular catheter Unawareness of hypoglycemia in diabetes mellitus, type II 250.80 Active Maliheh Rodrigoglari CARDIOVASCULAR OPERATING ROOM NURSE Diabetes mellitus with other specified manifestations, [...] specified as recurrent) Gastritis Inactive Maliheh Jose CARDIOVASCULAR OPERATING ROOM NURSE Unspecified gastritis and gastroduodenitis, 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 [...] po qd x 4 days 05/07 AZITHROMYCIN 72055141414 Active Dee Palmer APRN Active GUAIFENESIN DM 400-20 MG ORAL TABLET 1 pill by mouth twice daily, if needed for cough DEXTROMETHORPHAN-GUAIFENESIN 21437788746 Active Dee Palmer APRN Active PREDNISONE 20 MG ORAL TABLET 2 tabs daily for 4 days, 1 tab daily for 4 days, 1/2 tab daily for 4 days PREDNISONE 16198350170 Active Dee Palmer APRN Active ASPIRIN 81 MG ORAL TABLET 1 po qd ASPIRIN 30630117527 Active Dee Palmer APRN Active CALCIUM 500/D 500-200 MG-UNIT ORAL TABLET one tablet daily CALCIUM CARBONATE-VITAMIN D 55145832818 No Longer Active Dee Palmer APRN Active HYDROCODONE-ACETAMINOPHEN 7.5-325 MG ORAL TABLET 1-2 every 4-6 hrs prn 02/25 HYDROCODONE-ACETAMINOPHEN 69655461195 Active Marina Messina BESSY Active ASPIRIN 81 MG ORAL TABLET 1 tablet by mouth daily ASPIRIN 74425089364 No Longer Active Marina King BESSY Active SIMVASTATIN 80 MG ORAL TABLET 1/2 tablet daily SIMVASTATIN 10974865460 No Longer Active Mekhi Dukes MD Active OMEPRAZOLE 20 MG ORAL CAPSULE DELAYED RELEASE 1 qd OMEPRAZOLE 69765465885 No Longer Active Mekhi Dukes MD Active METOPROLOL TARTRATE 25 MG ORAL TABLET 1/2 tablet twice a day METOPROLOL TARTRATE 93859532330 No Longer Active Mekhi Dukes MD Active LISINOPRIL 5 MG ORAL TABLET 1 daily LISINOPRIL 44427787894 No Longer Active Mekhi Dukes MD Active NOVOLOG FLEXPEN 100 UNIT/ML SUBCUTANEOUS SOLUTION PEN-INJECTOR Take 8 units with each meal, add 1u/50 for blood sugars above 150. INSULIN ASPART 99419426943 Active Moy PARISH Active GABAPENTIN 300 MG ORAL CAPSULE 1 tab BID GABAPENTIN 79825198134 Active Tami Miller RN Active PREDNISONE 20 MG ORAL TABLET Take 2 daily for 3 days and then 1 daily for 3 days PREDNISONE 77992214906 No Longer Active Moy PARISH Active BENZONATATE 200 MG ORAL CAPSULE Take 1 tablet 3 times a day as needed for cough BENZONATATE 60042267101 No Longer Active Prosper Arenas MD Active HYDROCHLOROTHIAZIDE 25 MG ORAL TABLET 1 tablet by mouth daily HYDROCHLOROTHIAZIDE 72595412793 No Longer Active Prosper Arenas MD Active ACCU-CHEK JOANNA PLUS IN VITRO STRIP check blood sugars 5x a day, before each meal and bedtime and 15 minutes after treating a low blood. sugar GLUCOSE BLOOD 54153721629 Active Moy PARISH Active LANTUS SOLOSTAR 100 UNIT/ML SUBCUTANEOUS SOLUTION PEN-INJECTOR Take 40 units at 7-8pm daily INSULIN GLARGINE 22269149447 Active Maliheh Ziglari CARDIOVASCULAR OPERATING ROOM NURSE Active MECLIZINE HCL 25 MG ORAL TABLET 1 daily needed for dizziness 2015 MECLIZINE HCL 16069579310 No Longer Active Maliheh Ziglari CARDIOVASCULAR OPERATING ROOM NURSE Active BENZONATATE 200 MG ORAL CAPSULE 1 tab, 2-3 times a day BENZONATATE 08966216955 No Longer Active Maliheh Ziglari CARDIOVASCULAR OPERATING ROOM NURSE Active HALOPERIDOL 0.5 MG ORAL TABLET one tablet three times a day HALOPERIDOL 61135967538 No Longer Active Maliheh Ziglari CARDIOVASCULAR OPERATING ROOM NURSE Active TRAZODONE HCL 50 MG ORAL TABLET three tablets at bed time TRAZODONE HCL 58176152549 No Longer [facility] Z[facility] CARDIOVASCULAR OPERATING ROOM NURSE Active REVLIMID 25 MG ORAL CAPSULE one capsule daily for 21 days then off for 7 days LENALIDOMIDE 31614346401 No Longer Active Maleh Ziglari CARDIOVASCULAR OPERATING ROOM NURSE Active ZITHROMAX Z-EDDIE 250 MG ORAL TABLET 2 today, then 1 daily for 4 days AZITHROMYCIN 95510584867 No Longer Active Augustina Mata OPERATING ROOM REGISTERED NURSE Active NOVOLIN R RELION 100 UNIT/ML INJECTION SOLUTION 30- 40 units each meal sliding scale INSULIN REGULAR HUMAN 35170468845 No Longer Active Moy Wallaceglari CARDIOVASCULAR OPERATING ROOM NURSE Active HYDROCODONE-ACETAMINOPHEN 5-500 MG ORAL TABLET 1-2 FOUR TIMES A DAY, PRN 2010 HYDROCODONE-ACETAMINOPHEN 80201791026 No Longer Active Prosper Arenas MD Active DOXYCYCLINE HYCLATE 100 MG ORAL CAPSULE take one capsule by mouth twice daily for ten days DOXYCYCLINE HYCLATE 81284394856 No Longer Active Mekhi Dukes MD Active DOXYCYCLINE HYCLATE 100 MG ORAL CAPSULE take one capsule by mouth twice daily for ten days DOXYCYCLINE HYCLATE 100 MG ORAL CAPSULE 0830902 DOXYCYCLINE HYCLATE Inactive HYDROCODONE-ACETAMINOPHEN 5-500 MG ORAL TABLET 1-2 FOUR TIMES A DAY, PRN 2010 HYDROCODONE-ACETAMINOPHEN 5-500 MG ORAL TABLET 698491 HYDROCODONE-ACETAMINOPHEN Inactive NOVOLIN R RELION 100 UNIT/ML INJECTION SOLUTION 30- 40 units each meal sliding scale NOVOLIN R RELION 100 UNIT/ML INJECTION SOLUTION INSULIN REGULAR HUMAN Inactive ZITHROMAX Z-EDDIE 250 MG ORAL TABLET 2 today, then 1 daily for 4 days ZITHROMAX Z-EDDIE 250 MG ORAL TABLET 193047 AZITHROMYCIN Inactive REVLIMID 25 MG ORAL CAPSULE one capsule daily for 21 days then off for 7 days REVLIMID 25 MG ORAL CAPSULE LENALIDOMIDE Inactive TRAZODONE HCL 50 MG ORAL TABLET three tablets at bed time TRAZODONE HCL 50 MG ORAL TABLET 594133 TRAZODONE HCL Inactive HALOPERIDOL 0.5 MG ORAL TABLET one tablet three times a day HALOPERIDOL 0.5 MG ORAL TABLET 422689 HALOPERIDOL Inactive BENZONATATE 200 MG ORAL CAPSULE 1 tab, 2-3 times a day BENZONATATE 200 MG ORAL CAPSULE 124304 BENZONATATE Inactive MECLIZINE HCL 25 MG ORAL TABLET 1 daily needed for dizziness 2015 MECLIZINE HCL 25 MG ORAL TABLET 907932 MECLIZINE HCL Inactive HYDROCHLOROTHIAZIDE 25 MG ORAL TABLET 1 tablet by mouth daily HYDROCHLOROTHIAZIDE 25 MG ORAL TABLET 791186 HYDROCHLOROTHIAZIDE Inactive PREDNISONE 20 MG ORAL TABLET Take 2 daily for 3 days and then 1 daily for 3 days PREDNISONE 20 MG ORAL TABLET 530339 PREDNISONE Inactive LISINOPRIL 5 MG ORAL TABLET 1 daily LISINOPRIL 5 MG ORAL TABLET 449696 LISINOPRIL Inactive METOPROLOL TARTRATE 25 MG ORAL TABLET 1/2 tablet twice a day METOPROLOL TARTRATE 25 MG ORAL TABLET 625776 METOPROLOL TARTRATE Inactive OMEPRAZOLE 20 MG ORAL CAPSULE DELAYED RELEASE 1 qd OMEPRAZOLE 20 MG ORAL CAPSULE DELAYED RELEASE 987967 OMEPRAZOLE Inactive SIMVASTATIN 80 MG ORAL TABLET 1/2 tablet daily SIMVASTATIN 80 MG ORAL TABLET 969577 SIMVASTATIN Inactive ASPIRIN 81 MG ORAL TABLET 1 tablet by mouth daily ASPIRIN 81 MG ORAL TABLET 739281 ASPIRIN Inactive CALCIUM 500/D 500-200 MG-UNIT ORAL TABLET one tablet daily CALCIUM 500/D 500-200 MG-UNIT ORAL TABLET CALCIUM CARBONATE-VITAMIN D Inactive BENZONATATE 200 MG ORAL CAPSULE Take 1 tablet 3 times a day as needed for cough BENZONATATE 200 MG ORAL CAPSULE 720530 BENZONATATE Inactive Immunizations Vaccine Administration Date Value [...] W/DIFF - Chemistry sodium, serum 137 mmol/L 307-115 5145/08/16 carbon dioxide, venous blood 26.3 mmol/L 21.0-32.0 [...] LABS - Chemistry cholesterol, serum 115 mg/dL 378-553 3237/08/18 triglyceride, serum, fasting 89 mg/dL 30-200 HDL cholesterol, serum 46 mg/dL 32-60 LDL cholesterol, serum 51 mg/dL 0-130 blood glucose 104 mg/dL 65-110 Lab Report: LIPID PANEL- REPOWER LAB - Chemistry cholesterol, serum 156 mg/dL 688-301 7211/02/20 HDL cholesterol, serum 52 mg/dL > OR=40 [...] mg/dL Encounters Code Encounter Date Provider Facility CPT-53815 Level 3 Est. Patient 14:09:25 HOME SPECIALIST Ryanmakenna Palmer APRN [facility] CPT-79969 Level 3 Est. Patient 10:53:32 HOME SPECIALIST Moy Garcia [facility] CPT-49518 Level 3 Est. Patient 17:11:55 HOME SPECIALIST Ismael Gracia MD [facility] CPT-14507 Level 4 Est. Patient 16:29:19 CDT Mekhi Dukes MD [facility] CPT-74227 Level 3 New Patient 17:05:24 CDT Ismael Gracia MD [facility] CPT-65305 Level 2 Est. Patient 15:43:17 CDT Mekhi Dukes MD [facility] CPT-76352 Level 3 Est. [facility]30[facility] Level 3 Est. Patient 10:00:14 CDT Mekhi Dukes MD [facility] CPT-40447 Level 3 Est. Patient 12:24:09 CDT [facility] Level 3 Est. Patient 14:34:57 CDT Prosper Arenas MD [facility] CPT-10650 Level 3 New Patient 15:44:53 HOME SPECIALIST Mekhi Dukes MD [facility] CPT-00539 Level 3 Est. Patient 14:53:34 HOME SPECIALIST Prosper Arenas MD [facility] CPT-87121 Level 4 Est. Patient 10:05:41 HOME SPECIALIST Moy Garcia [facility] CPT-18968 Level 3 Est. Patient 11:18:32 CDT [facility] CPT-59301 Level 4 Est. Patient 11:05:10 CDT [facility] CPT-29293 Level 3 Est. Patient 11:08:27 HOME SPECIALIST Luxshoaib Garcia [facility] CPT-11679 Level 4 Est. Patient 10:43:59 CDT Prosper Arenas MD [facility] CPT-74484 Level 3 Est. Patient 10:51:19 CDT [facility] CPT-12010 Level 3 Est. Patient 10:20:31 CDT [facility] Level 3 Est. Patient 17:08:45 CDT [facility] CPT-10147 Level 2 Est. Patient 13:54:36 CDT Augustina Mata APRN [facility] CPT-64220 Level 3 Est. Patient 12:00:42 CDT Prosper Arenas MD [facility] CPT-98636 Level 3 Est. Patient 09:57:28 HOME SPECIALIST [facility] CPT-58696 Level 3 Est. Patient 11:41:19 HOME SPECIALIST [facility] CPT-21547 Level 4 Est. Patient 17:07:35 [facility]-85646 Level 5 Est. Patient 14:33:32 CDT [facility] CPT-22067 Level 3 Est. Patient 12:25:35 CDT Prosper Arenas MD [facility] Procedures Code Procedure Name Date Entry Date Standard Description CPT-15929 Chest, 2 views 14:17:20 HOME SPECIALIST CPT-50785 Postop F/U Visit 14:44:45 HOME SPECIALIST CPT-19851 Postop F/U Visit 17:20:20 HOME SPECIALIST CPT-G0439 Subsequent Annual Wellness Exam 08:39:41 HOME SPECIALIST CPT-000 Give Appropriate Flu Vaccine 10:13:55 HOME SPECIALIST CPT-000 Give Immunizations Due 10:13:55 HOME SPECIALIST CPT-75475 HGBA1C - LAB USE ONLY 09:42:47 HOME SPECIALIST CPT-62475 TPSA - LAB USE ONLY 09:42:46 HOME SPECIALIST CPT-84191 Venipuncture Draw Fee 09:42:46 HOME SPECIALIST CPT-69747 Port a cath flush 13:33:18 HOME SPECIALIST CPT-58038 First Vx - Ix admin for Medicare patients 10:42:57 HOME SPECIALIST CPT-88052 Fluzone Preservative Free Intramuscular Suspension 10:42 :57 HOME SPECIALIST CPT-G0438 Initial Annual Wellness Exam 10:13:55 HOME SPECIALIST CPT-000 Give Appropriate Flu Vaccine 10:44:04 CDT CPT-000 Give Pneumovax 10:44:03 CDT CPT-34121 Port a cath flush 17:04:43 CDT CPT-34990 Prevnar 13 11:19:17 CDT CPT-48770 Fluzone Quadrivalent preservative free (>=3yrs.) 11:19: 17 CDT CPT-60470 Immunization Each Additional Inj 11:19:17 CDT CPT-06398 Immunization Single Admin 11:19:17 CDT CPT-12320 Port a cath flush 13:28:22 CDT CPT-TCMM Transitional Care Mgmt-Moderate 13:40:15 CDT CPT-G0008 Administration of Influenza Virus Vaccine 13:59:20 CDT CPT-92284 Fluzone High-Dose Intramuscular Suspension 13:59:20 CDT CPT-93605 Venipuncture Draw Fee 09:56:19 CDT CPT-OV Office Visit 15:46:10 CDT
--- OUTSIDE RECORDS SUMMARY | 2017-08-25 21:02 | XMS REPORT | Clinical Summary ---
Author Author Admin, IWONA Organization [employer] Address Unknown Phone Unavailable Allergies, Adverse Reactions, Alerts Allergy Name Reaction Description Start Date Severity Status Provider ERYTHROMYCIN Stomach cramps Moderate Active Prosper Arenas MD CODEINE Critical Active Maliheh Ziglari ADMIN SECRETARY DARVOCET Critical Active Maliheh Ziglari ADMIN SECRETARY LEVAQUIN Critical Active Maliheh Ziglari ADMIN SECRETARY Conditions or Problems Problem Name Problem Code [...] type II, uncontrolled 250.02 Active Maliheh Ziglari ADMIN SECRETARY Diabetes mellitus 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, type [...] with hyperglycemia 250.00 Active 03/21 Maliheh Ziglari ADMIN SECRETARY Diabetes mellitus 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, type II or unspecified type, not stated as uncontrolled 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 [employer] use of insulin treatment V58.67 Active Luxiheh Ziglari ADMIN SECRETARY Long-term (current) use of insulin Diabetes mellitus, type II with hypoglycemia 250.80 Active 07/22 Maliheh Ziglari ADMIN SECRETARY Diabetes mellitus with other specified manifestations, type II or unspecified type, not stated as uncontrolled 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 Maliheh Ziglari ADMIN SECRETARY Diabetes mellitus with renal manifestations, type II or unspecified type, not stated as uncontrolled Wellness exam V70.0 Active Dee Palmer APRN Routine general medical examination at a health care facility Fitting and adjustment of vascular catheter V58.81 Active 02/06 Dee Palmer APRN Encounter for fitting and adjustment of vascular catheter Unawareness of hypoglycemia in diabetes mellitus, type II 250.80 Active Maliheh Ziglari ADMIN SECRETARY Diabetes mellitus with other specified manifestations, type II or unspecified type, not stated as uncontrolled Medication List Medication Instructions Start Date Stop Date Generic Name NDC Status Provider Patient Instruction ACCU-CHEK JOANNA PLUS STRP check blood sugars 5x a day, before each meal and bedtime and 15 minutes after treating a low blood. sugar GLUCOSE BLOOD 71622203396 Active Maliheh Ziglari ADMIN SECRETARY Active NOVOLOG FLEXPEN 100 UNIT/ML SOPN Take 25 units with each meal, add 1u/50 for blood sugars above 150. INSULIN ASPART 36872626235 Active Maliheh Ziglari ADMIN SECRETARY Active LANTUS SOLOSTAR 100 UNIT/ML SOLN Take 40 units at 7-8pm daily INSULIN GLARGINE 81137522160 Active Maliheh Ziglari ADMIN SECRETARY Active MECLIZINE HCL 25 MG TABS 1 daily needed for dizziness MECLIZINE HCL 17099705977 No Longer Active Maliheh Ziglari ADMIN SECRETARY Active BENZONATATE 200 MG CAPS 1 tab, 2-3 times a day BENZONATATE 40736643754 No Longer Active Maliheh Ziglari ADMIN SECRETARY Active HALOPERIDOL 0.5 MG TABS one tablet three times a day HALOPERIDOL 96880168220 No Longer Active Maliheh Ziglari ADMIN SECRETARY Active TRAZODONE HCL 50 MG TAB three tablets at bed time TRAZODONE HCL 80669097254 No Longer Active [facility] Ziglari ADMIN SECRETARY Active REVLIMID 25 MG CAPS one capsule daily for 21 days then off for 7 days 2014 LENALIDOMIDE 68375066984 No Longer Active Maleh Ziglari ADMIN SECRETARY Active ZITHROMAX Z-EDDIE 250 MG TABS 2 today, then 1 daily for 4 days 2014 AZITHROMYCIN 93588069968 No Longer Active Augustina Yoann COAL BRIQUETTE MACHINE OPERATOR Active NOVOLIN R RELION 100 UNIT/ML INJ SOLN 30- 40 units each meal sliding scale INSULIN REGULAR HUMAN 04659226099 No Longer Active Maliheh Ziglari ADMIN SECRETARY Active LISINOPRIL 5 MG TABS 1 daily LISINOPRIL 75301061936 Active Prosper Arenas MD Active CALCIUM 500/D 500-200 MG-UNIT TABS one tablet daily CALCIUM CARBONATE- VITAMIN D 48174871332 Active Prosper Arenas MD Active HYDROCHLOROTHIAZIDE 25 MG TABS 1 tablet by mouth daily HYDROCHLOROTHIAZIDE 99561237083 Active Prosper Arenas MD Active HYDROCODONE-ACETAMINOPHEN 5-500 MG TABS 1-2 FOUR TIMES A DAY, PRN HYDROCODONE-ACETAMINOPHEN 89406123916 No Longer Active Prosper Arenas MD Active SIMVASTATIN 80 MG TABS 1/2 tablet daily SIMVASTATIN 03690553132 Active Prosper Arenas MD Active METOPROLOL TARTRATE 25 MG TABS 1/2 tablet twice a day METOPROLOL TARTRATE 65978360784 Active Prosper Arenas MD Active ASPIRIN 81 MG TAB 1 tablet by mouth daily ASPIRIN 22718480452 Active rPosper Arenas MD Active OMEPRAZOLE 20 MG CPDR 1 qd OMEPRAZOLE 71180315397 Active DARCIE Miller Active DOXYCYCLINE HYCLATE 100 MG CAPS take one capsule by mouth twice daily for ten days DOXYCYCLINE HYCLATE 20997355627 No Longer Active Mekhi Dukes MD Active DOXYCYCLINE HYCLATE 100 MG CAPS take one capsule by mouth twice daily for ten days DOXYCYCLINE HYCLATE 100 MG CAPS 1582778 DOXYCYCLINE HYCLATE Inactive HYDROCODONE-ACETAMINOPHEN 5-500 MG TABS [...] days 2014 ZITHROMAX Z-EDDIE 250 MG TABS 6447586 AZITHROMYCIN Inactive REVLIMID 25 MG CAPS one capsule daily for 21 days then off for 7 days 2014 REVLIMID 25 MG CAPS LENALIDOMIDE Inactive TRAZODONE HCL 50 MG TAB three tablets at bed time TRAZODONE HCL 50 MG TAB 377126 TRAZODONE HCL Inactive HALOPERIDOL 0.5 MG TABS one tablet three times a day HALOPERIDOL 0.5 MG TABS 886057 HALOPERIDOL Inactive BENZONATATE 200 MG CAPS 1 tab, 2-3 times a day BENZONATATE 200 MG CAPS 377400 BENZONATATE Inactive MECLIZINE HCL 25 MG TABS 1 daily needed for dizziness MECLIZINE HCL 25 MG TABS 004681 MECLIZINE HCL Inactive Immunizations Vaccine Administration Date [...] Range Description blood pressure, diastolic - 8462-4 60 mm[Hg] [...] E&M - 3141-9 190 [lb_av] Weight Measured Diagnostic Results Date Name Value Unit Range Description Lab Report: HGBA1C - Chemistry hemoglobin A1C, blood, as % of total hemoglobin 7.7 % 4.3-6.0 Lab Report: Prostatic Specific Ag - Chemistry [...] mg/dL Encounters Code Encounter Date Provider Facility CPT-91019 Level 4 Est. Patient 10:05:41 AIR DEFENCE OFFICER [facility] CPT-38500 Level 3 Est. Patient 11:18:32 CDT [facility] CPT-01526 Level 4 Est. Patient 11:05:10 CDT [facility] CPT-77306 Level 3 Est. Patient 11:08:27 AIR DEFENCE OFFICER Maliheh Ziglari [facility] CPT-10872 Level 4 Est. Patient 10:43:59 CDT Prosper Arenas MD [facility] CPT-68722 Level 3 Est. Patient 10:51:19 CDT Moy Garcia [facility] CPT-27779 Level 3 Est. Patient 10:20:31 CDT Moy Garcia [facility] CPT-58027 Level 3 Est. Patient 17:08:45 CDT Moy Garcia [facility] CPT-05832 Level 2 Est. Patient 13:54:36 CDT Augustina Mata COAL BRIQUETTE MACHINE OPERATOR [facility] CPT-73691 Level 3 Est. Patient 12:00:42 CDT Prosper Arenas MD [facility] CPT-89323 Level 3 Est. Patient 09:57:28 AIR DEFENCE OFFICER Moy Garcia [facility] CPT-67433 Level 3 Est. Patient 11:41:19 AIR DEFENCE OFFICER Moy Garcia [facility] CPT-19053 Level 4 Est. Patient 17:07:35 AIR DEFENCE OFFICER [facility] Level 5 Est. Patient 14:33:32 [facility] Level 3 Est. Patient 12:25:35 CDT Prosper Arenas MD [facility] Procedures Code Procedure Name Date Entry Date Standard Description CPT-000 Give Appropriate Flu Vaccine 10:13:55 AIR DEFENCE OFFICER CPT-000 Give Immunizations Due 10:13:55 AIR DEFENCE OFFICER CPT-65992 HGBA1C - LAB USE ONLY 09:42:47 AIR DEFENCE OFFICER CPT-49036 TPSA - LAB USE ONLY 09:42:46 AIR DEFENCE OFFICER CPT-55788 Venipuncture Draw Fee 09:42:46 AIR DEFENCE OFFICER CPT-12626 Port a cath flush 13:33:18 AIR DEFENCE OFFICER CPT-29174 First Vx - Ix admin for Medicare patients 10:42:57 AIR DEFENCE OFFICER CPT-31192 Fluzone Preservative Free Intramuscular Suspension 10:42 :57 AIR DEFENCE OFFICER CPT-G0438 Initial Annual Wellness Exam 10:13:55 AIR DEFENCE OFFICER CPT-000 Give Appropriate Flu Vaccine 10:44:04 CDT CPT-000 Give Pneumovax 10:44:03 CDT CPT-40273 Port a cath flush 17:04:43 CDT CPT-53535 Prevnar 13 11:19:17 CDT CPT-46029 Fluzone Quadrivalent preservative free (>=3yrs.) 11:19: 17 CDT CPT-88861 Immunization Each Additional Inj 11:19:17 CDT CPT-69949 Immunization Single Admin 11:19:17 CDT CPT-42615 Port a cath flush 13:28:22 CDT CPT-TCMM Transitional Care Mgmt-Moderate 13:40:15 CDT CPT-G0008 Administration of Influenza Virus Vaccine 13:59:20 CDT CPT-51968 Fluzone High-Dose Intramuscular Suspension 13:59:20 CDT CPT-55238 Venipuncture Draw Fee 09:56:19 CDT CPT-OV Office Visit 15:46:10 CDT
--- OUTSIDE RECORDS SUMMARY | 2017-08-25 21:02 | XMS REPORT | Clinical Summary ---
Author Author Admin, [place] Organization [employer] Address Unknown Phone Unavailable Allergies, Adverse Reactions, Alerts Allergy Name Reaction Description Start Date Severity Status Provider ERYTHROMYCIN Stomach cramps Moderate Active Prsoper Arenas MD CODEINE Critical Active Maliheh Ziglari SCRAP HOOKER DARVOCET Critical Active Maliheh Ziglari SCRAP HOOKER LEVAQUIN Critical Active Maliheh Ziglari SCRAP HOOKER Conditions or Problems Problem Name Problem Code [...] of gastrointestinal tract FH Diabetes V18.0 Active eMkhi Dukes MD Family history of diabetes mellitus Abdominal pain, right upper quadrant 789.01 Active Mekhi Dukes MD Abdominal pain, right upper quadrant Syncope and collapse 780.2 Active Prosper Arenas MD Syncope and collapse Hypokalemia 276.8 Active Prosper Arenas MD Hypopotassemia Diabetes mellitus, type II, uncontrolled 250.02 Active Maliheh Ziglari SCRAP HOOKER Diabetes mellitus 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, type [...] with hyperglycemia 250.00 Active 03/21 Maliheh Ziglari SCRAP HOOKER Diabetes mellitus 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, type II or unspecified type, not stated as uncontrolled 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.67 Active Maliheh Rodrigoglari SCRAP HOOKER Long-term (current) use of insulin Diabetes mellitus, type II with hypoglycemia 250.80 Active 07/22 Maliheh Ziglari SCRAP HOOKER Diabetes mellitus with other specified manifestations, type II or unspecified type, not stated as uncontrolled 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 Maliheh Ziglari SCRAP HOOKER Diabetes mellitus with renal manifestations, type II or unspecified type, not stated as uncontrolled Wellness exam V70.0 Active Dee Palmer APRN Routine general medical examination at a health care facility Fitting and adjustment of vascular catheter V58.81 Active 02/06 Dee Palmer APRN Encounter for fitting and adjustment of vascular catheter Unawareness of hypoglycemia in diabetes mellitus, type II 250.80 Active Maliheh Ziglari SCRAP HOOKER Diabetes mellitus with other specified manifestations, type II or unspecified type, not stated as uncontrolled Groin pain, right 789.09 Active Prosper Arenas MD Abdominal pain, other specified site; multiple sites Medication List Medication Instructions Start Date Stop Date Generic Name NDC Status Provider Patient Instruction ACCU-CHEK JOANNA PLUS STRP check blood sugars 5x a day, before each meal and bedtime and 15 minutes after treating a low blood. sugar GLUCOSE BLOOD 36098108059 Active Maliheh Ziglari SCRAP HOOKER Active NOVOLOG FLEXPEN 100 UNIT/ML SOPN Take 25 units with each meal, add 1u/50 for blood sugars above 150. INSULIN ASPART 62788173165 Active Maliheh Ziglari SCRAP HOOKER Active LANTUS SOLOSTAR 100 UNIT/ML SOLN Take 40 units at 7-8pm daily INSULIN GLARGINE 98695812418 Active Maliheh Ziglari SCRAP HOOKER Active MECLIZINE HCL 25 MG TABS 1 daily needed for dizziness MECLIZINE HCL 87534321549 No Longer Active Maliheh Ziglari SCRAP HOOKER Active BENZONATATE 200 MG CAPS 1 tab, 2-3 times a day BENZONATATE 86951667190 No Longer Active Maliheh Ziglari SCRAP HOOKER Active HALOPERIDOL 0.5 MG TABS one tablet three times a day HALOPERIDOL 44841951460 No Longer Active Maliheh Ziglari SCRAP HOOKER Active TRAZODONE HCL 50 MG TAB three tablets at bed time TRAZODONE HCL 15540389194 No Longer Active Maliheh Ziglari SCRAP HOOKER Active REVLIMID 25 MG CAPS one capsule daily for 21 days then off for 7 days 2014 LENALIDOMIDE 75588832741 No Longer Active Maliheh Ziglari SCRAP HOOKER Active ZITHROMAX Z-EDDIE 250 MG TABS 2 today, then 1 daily for 4 days 2014 AZITHROMYCIN 43554940075 No Longer Active Augustina Yoann CLAIM TAKER Active NOVOLIN R RELION 100 UNIT/ML INJ SOLN 30- 40 units each meal sliding scale INSULIN REGULAR HUMAN 43252752920 No Longer Active Maliheh Ziglari SCRAP HOOKER Active LISINOPRIL 5 MG TABS 1 daily LISINOPRIL 29496447640 Active Prosper Arenas MD Active CALCIUM 500/D 500-200 MG-UNIT TABS one tablet daily CALCIUM CARBONATE- VITAMIN D 98225483486 Active Prosper Arenas MD Active HYDROCHLOROTHIAZIDE 25 MG TABS 1 tablet by mouth daily HYDROCHLOROTHIAZIDE 56953107894 Active Prosper Arenas MD Active HYDROCODONE-ACETAMINOPHEN 5-500 MG TABS 1-2 FOUR TIMES A DAY, PRN HYDROCODONE-ACETAMINOPHEN 70689140284 No Longer Active Prosper Arenas MD Active SIMVASTATIN 80 MG TABS 1/2 tablet daily SIMVASTATIN 71971748954 Active Prosper Arenas MD Active METOPROLOL TARTRATE 25 MG TABS 1/2 tablet twice a day METOPROLOL TARTRATE 09351789984 Active Prosper Arenas MD Active ASPIRIN 81 MG TAB 1 tablet by mouth daily ASPIRIN 01533482394 Active Prosper Arenas MD Active OMEPRAZOLE 20 MG CPDR 1 qd OMEPRAZOLE 79810540244 Active DARCIE Miller Active DOXYCYCLINE HYCLATE 100 MG CAPS take one capsule by mouth twice daily for ten days DOXYCYCLINE HYCLATE 43858117406 No Longer Active Mekhi Dukes MD Active DOXYCYCLINE HYCLATE 100 MG CAPS take one capsule by mouth twice daily for ten days DOXYCYCLINE HYCLATE 100 MG CAPS 3839041 DOXYCYCLINE HYCLATE Inactive HYDROCODONE-ACETAMINOPHEN 5-500 MG TABS [...] days 2014 ZITHROMAX Z-EDDIE 250 MG TABS 0257647 AZITHROMYCIN Inactive REVLIMID 25 MG CAPS one capsule daily for 21 days then off for 7 days 2014 REVLIMID 25 MG CAPS LENALIDOMIDE Inactive TRAZODONE HCL 50 MG TAB three tablets at bed time TRAZODONE HCL 50 MG TAB 895208 TRAZODONE HCL Inactive HALOPERIDOL 0.5 MG TABS one tablet three times a day HALOPERIDOL 0.5 MG TABS 264674 HALOPERIDOL Inactive BENZONATATE 200 MG CAPS 1 tab, 2-3 times a day BENZONATATE 200 MG CAPS 339744 BENZONATATE Inactive MECLIZINE HCL 25 MG TABS 1 daily needed for dizziness MECLIZINE HCL 25 MG TABS 796974 MECLIZINE HCL Inactive Immunizations Vaccine Administration Date [...] Range Description blood pressure, diastolic - 8462-4 78 mm[Hg] [...] mg/dL Encounters Code Encounter Date Provider Facility CPT-01312 Level 3 Est. 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 Patient 10:05:41 OPEN HEARTH FURNACE OPERATOR HELPER [facility] CPT-50007 Level 3 Est. [facility]18:[facility] CPT-56682 Level 4 Est. Patient 11:05:10 CDT [facility] CPT-55238 Level 3 Est. Patient 11:08:27 OPEN HEARTH FURNACE OPERATOR HELPER [facility] CPT-98622 Level 4 Est. Patient 10:43:59 CDT Prosper Arenas MD [facility] CPT-20200 Level 3 Est. [facility]51[facility] Level 3 Est. Patient 10:20:31 [facility]T [facility] CPT-78015 Level 3 Est. Patient 17:08:45 CDT [facility] CPT-57423 Level 2 Est. Patient 13:54:36 CDT Augustina Mata APRN [facility] CPT-38257 Level 3 Est. Patient 12:00:42 CDT Prosper Arenas MD [facility] CPT-51028 Level 3 Est. Patient 09:57:28 OPEN HEARTH FURNACE OPERATOR HELPER [facility] CPT-59225 Level 3 Est. Patient 11:41:19 OPEN HEARTH FURNACE OPERATOR HELPER [facility] CPT-18061 Level 4 Est. Patient 17:07:35 OPEN HEARTH FURNACE OPERATOR HELPER [facility] Level 5 Est. Patient 14:33:32 CDT [facility]oy [facility] CPT-26973 Level 3 Est. Patient 12:25:35 CDT Prosper Arenas MD [facility] Procedures Code Procedure Name Date Entry Date Standard Description CPT-000 Give Appropriate Flu Vaccine 10:13:55 OPEN HEARTH FURNACE OPERATOR HELPER CPT-000 Give Immunizations Due 10:13:55 OPEN HEARTH FURNACE OPERATOR HELPER CPT-06411 HGBA1C - LAB USE ONLY 09:42:47 OPEN HEARTH FURNACE OPERATOR HELPER CPT-59130 TPSA - LAB USE ONLY 09:42:46 OPEN HEARTH FURNACE OPERATOR HELPER CPT-45207 Venipuncture Draw Fee 09:42:46 OPEN HEARTH FURNACE OPERATOR HELPER CPT-73644 Port a cath flush 13:33:18 OPEN HEARTH FURNACE OPERATOR HELPER CPT-65080 First Vx - Ix admin for Medicare patients 10:42:57 OPEN HEARTH FURNACE OPERATOR HELPER CPT-29248 Fluzone Preservative Free Intramuscular Suspension 10:42 :57 OPEN HEARTH FURNACE OPERATOR HELPER CPT-G0438 Initial Annual Wellness Exam 10:13:55 OPEN HEARTH FURNACE OPERATOR HELPER CPT-000 Give Appropriate Flu Vaccine 10:44:04 CDT CPT-000 Give Pneumovax 10:44:03 CDT CPT-06380 Port a cath flush 17:04:43 CDT CPT-27723 Prevnar 13 11:19:17 CDT CPT-33248 Fluzone Quadrivalent preservative free (>=3yrs.) 11:19: 17 CDT CPT-45607 Immunization Each Additional Inj 11:19:17 CDT CPT-85399 Immunization Single Admin 11:19:17 CDT CPT-44578 Port a cath flush 13:28:22 CDT CPT-TCMM Transitional Care Mgmt-Moderate 13:40:15 CDT CPT-G0008 Administration of Influenza Virus Vaccine 13:59:20 CDT CPT-31777 Fluzone High-Dose Intramuscular Suspension 13:59:20 CDT CPT-31511 Venipuncture Draw Fee 09:56:19 CDT CPT-OV Office Visit 15:46:10 CDT
--- OUTSIDE RECORDS SUMMARY | 2017-08-25 21:03 | XMS REPORT | Clinical Summary ---
Author Author Admin, [place] Organization [facility] Address Unknown Phone Unavailable Allergies, Adverse Reactions, Alerts Allergy Name Reaction Description Start Date Severity Status Provider ERYTHROMYCIN Stomach cramps Moderate Active Prosper Arenas MD CODEINE Critical Active Maliheh Ziglari WAX MOLDER DARVOCET Critical Active Maliheh Ziglari WAX MOLDER LEVAQUIN Critical Active Maliheh Ziglari WAX MOLDER Conditions or Problems Problem Name Problem Code [...] type II, uncontrolled 250.02 Active Maliheh Ziglari WAX MOLDER Diabetes mellitus 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, type [...] then off for 7 days 2014 LENALIDOMIDE 59400379360 No Longer Active Maliheh Ziglari WAX MOLDER Active ACCU-CHEK JOANNA PLUS STRP check blood sugars 3x a day GLUCOSE BLOOD 71762103958 Active Maliheh Ziglari WAX MOLDER Active NOVOLOG FLEXPEN 100 UNIT/ML SOPN Take 15 units with each meal, add 2u/50 for blood sugars above 150 INSULIN ASPART 82223954924 Active Maliheh Ziglari WAX MOLDER Active ZITHROMAX Z-EDDIE 250 MG TABS 2 today, then 1 daily for 4 days 2014 AZITHROMYCIN 19997058647 No Longer Active Augustina Rangelann DOHERTY Active BENZONATATE 200 MG CAPS 1 tab, 2-3 times a day BENZONATATE 97705355125 Active Prosper Arenas MD Active LANTUS SOLOSTAR 100 UNIT/ML SOLN 30 units at 4-5pm daily INSULIN GLARGINE 54788331236 Active Maliheh Ziglari WAX MOLDER Active NOVOLIN R RELION 100 UNIT/ML INJ SOLN 30- 40 units each meal sliding scale INSULIN REGULAR HUMAN 43905699355 No Longer Active Maliheh Ziglari WAX MOLDER Active LISINOPRIL 5 MG TABS 1 daily LISINOPRIL 22867969282 Active Prosper Arenas MD Active CALCIUM 500/D 500-200 MG-UNIT TABS one tablet daily CALCIUM CARBONATE- VITAMIN D 61622335488 Active Prosper Arenas MD Active HYDROCHLOROTHIAZIDE 25 MG TABS 1 tablet by mouth daily HYDROCHLOROTHIAZIDE 43283501721 Active Prosper Arenas MD Active HYDROCODONE-ACETAMINOPHEN 5-500 MG TABS 1-2 FOUR TIMES A DAY, PRN HYDROCODONE-ACETAMINOPHEN 03033353916 No Longer Active Prosper Arenas MD Active TRAZODONE HCL 50 MG TAB three tablets at bed time TRAZODONE HCL 76876892040 Active Prosper Arenas MD Active SIMVASTATIN 80 MG TABS 1/2 tablet daily SIMVASTATIN 98173505922 Active Prosper Arenas MD Active METOPROLOL TARTRATE 25 MG TABS 1/2 tablet twice a day METOPROLOL TARTRATE 39042918829 Active Prosper Arenas MD Active HALOPERIDOL 0.5 MG TABS one tablet three times a day HALOPERIDOL 80813547658 Active Prosper Arenas MD Active ASPIRIN 81 MG TAB 1 tablet by mouth daily ASPIRIN 88467459640 Active Prosper Arenas MD Active OMEPRAZOLE 20 MG CPDR 1 qd OMEPRAZOLE 28208280930 Active DARCIE Miller Active DOXYCYCLINE HYCLATE 100 MG CAPS take one capsule by mouth twice daily for ten days DOXYCYCLINE HYCLATE 23527050672 No Longer Active Mekhi Dukes MD Active DOXYCYCLINE HYCLATE 100 MG CAPS take one capsule by mouth twice daily for ten days DOXYCYCLINE HYCLATE 100 MG CAPS 201125 DOXYCYCLINE HYCLATE Inactive HYDROCODONE-ACETAMINOPHEN 5-500 MG TABS [...] days 2014 ZITHROMAX Z-EDDIE 250 MG TABS 4663324 AZITHROMYCIN Inactive REVLIMID 25 MG CAPS one [...] Description Chart Maintenance: Outside labs entered on [employer] - Chemistry sodium, serum 134 mmol/L potassium, [...] 116 U/L alkaline phosphatase, serum 116 U/L Chart Maintenance: Outside labs entered on [employer] - Hematology leukocyte count, blood 5.1 10*3/mm3 hemoglobin, blood 14.7 g/dL platelet count 190 10*3/mm3 leukocyte count, blood 5.3 10*3/mm3 hemoglobin, blood 14.0 g/dL platelet count 240 10*3/mm3 Lab Report: Basic Metabolic Panel - Chemistry sodium, serum 137 mmol/L 462-386 6941/08/22 potassium, serum 4.0 mmol/L 3.5-5.2 chloride, serum 100 mmol/L 98-107 carbon dioxide, venous blood 27.9 mmol/L 21.0-32.0 blood glucose 109 mg/dL 65-110 calcium, serum 9.0 mg/dL 8.5-10.1 urea nitrogen, blood 15 mg/dL 7-18 creatinine, serum 2.00 mg/dL 0.60-1.30 Lab Report: Basic Metabolic Panel, HGBA1C - Chemistry sodium, serum 134 mmol/L 524-368 9256/01/27 potassium, serum 4.1 mmol/L 3.5-5.2 chloride, serum 96 mmol/L 98-107 carbon dioxide, venous blood 35.1 mmol/L 21.0-32.0 blood glucose 346 mg/dL 65-110 calcium, serum 8.4 mg/dL 8.5-10.1 urea nitrogen, blood 18 mg/dL 7-18 creatinine, serum 2.00 mg/dL 0.60-1.30 hemoglobin A1C, blood, as % of total hemoglobin 8.4 % 4.3-6.0 Lab Report: CBC W/DIFF, Comp. Metabolic Panel - Chemistry sodium, serum 137 mmol/L 275-605 8798/01/21 potassium, serum 4.1 mmol/L 3.5-5.2 chloride, serum 99 mmol/L 98-107 carbon dioxide, venous blood 30.9 mmol/L 21.0-32.0 blood glucose 303 mg/dL 65-110 urea nitrogen, blood 19 mg/dL 7-18 creatinine, serum 2.00 mg/dL 0.60-1.30 alanine aminotransferase (SGPT), serum 84 U/L 12-78 aspartate aminotransferase (SGOT), serum 41 U/L 15-37 calcium, serum 7.8 mg/dL 8.5-10.1 bilirubin, serum, total 0.50 mg/dL 0.00-1.00 sodium, serum 131 mmol/L 306-389 4740/03/18 potassium, serum 4.4 mmol/L 3.5-5.2 chloride, serum 95 mmol/L 98-107 carbon dioxide, venous blood 19.0 mmol/L 21.0-32.0 blood glucose 297 mg/dL 65-110 urea nitrogen, blood 19 mg/dL 7-18 creatinine, serum 1.70 mg/dL 0.60-1.30 alanine aminotransferase (SGPT), serum 184 U/L 12-78 aspartate aminotransferase (SGOT), serum 177 U/L 15-37 calcium, serum 7.8 mg/dL 8.5-10.1 bilirubin, serum, total 0.50 mg/dL 0.00-1.00 sodium, serum 135 mmol/L 447-603 2286/11/26 potassium, serum 4.4 mmol/L 3.5-5.2 chloride, serum 100 mmol/L 98-107 carbon dioxide, venous blood 30.7 mmol/L 21.0-32.0 blood glucose 251 mg/dL 65-110 urea nitrogen, blood 15 mg/dL 7-18 creatinine, serum 1.60 mg/dL 0.60-1.30 alanine aminotransferase (SGPT), serum 48 U/L 12-78 aspartate aminotransferase (SGOT), serum 30 U/L 15-37 [...] % 11.6-14.8 platelet count 172 10^3/MM^3 10*3/mm3 185-053 4658/01/21 leukocyte count, blood 6.3 10^3/MM^3 10*3/mm3 4.6-10.2 [...] % 11.6-14.8 platelet count 137 10^3/MM^3 10*3/mm3 210-204 0318/03/18 leukocyte count, blood 4.8 10^3/MM^3 10*3/mm3 4.6-10.2 [...] Ag - Chemistry sodium, serum 131 mmol/L 999-985 1915/10/13 potassium, serum 3.6 mmol/L 3.5-5.2 chloride, serum [...] 0.60 mg/dL 0.00-1.00 cholesterol, serum 98 mg/dL 649-691 7872/10/13 triglyceride, serum, fasting 125 mg/dL 30-200 HDL [...] mg/dL Encounters Code Encounter Date Provider Facility CPT-71223 Level 3 Est. Patient 10:20:31 CDT [facility] CPT-30847 Level 3 Est. Patient 17:08:45 CDT [facility] CPT-42875 Level 2 Est. Patient 13:54:36 CDT Augustina Mata APRN [facility] CPT-60969 Level 3 Est. Patient 12:00:42 CDT Prosper Arenas MD [facility] CPT-35960 Level 3 Est. Patient 09:57:28 ACTUARY MANAGER [facility] CPT-33811 Level 3 Est. Patient 11:41:19 ACTUARY MANAGER [facility] CPT-70797 Level 4 Est. Patient 17:07:35 ACTUARY MANAGER [facility] CPT-40575 Level 5 Est. Patient 14:33:32 CDT [facility] CPT-31255 Level 3 Est. Patient 12:25:35 CDT Prosper Arenas MD [facility] Procedures Code Procedure Name Date Entry Date Standard Description CPT-31639 Port a cath flush 13:28:22 CDT CPT-TCMM Transitional Care Mgmt-Moderate 13:40:15 CDT CPT-G0008 Administration of Influenza Virus Vaccine 13:59:20 CDT CPT-64825 Fluzone High-Dose Intramuscular Suspension 13:59:20 CDT CPT-46874 Venipuncture Draw Fee 09:56:19 CDT CPT-OV Office Visit 15:46:10 CDT
--- OUTSIDE RECORDS SUMMARY | 2017-08-25 21:03 | XMS REPORT | Clinical Summary ---
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, type II [...] type II, uncontrolled 250.02 Active Maliheh Rodrigoglari ACID TESTER Diabetes mellitus 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, type [...] with hyperglycemia 250.00 Active 03/21 Maliheh Ziglari ACID TESTER Diabetes mellitus 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, type II or unspecified type, not stated as uncontrolled assisted use of insulin treatment V58.67 Active Luxiheh Rodrigoglari ACID TESTER Long-term (current) use of insulin Diabetes mellitus, type II with hypoglycemia 250.80 Active 07/22 Maliheh Ziglari ACID TESTER Diabetes mellitus with other specified manifestations, type II or unspecified type, not stated as uncontrolled 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 Maliheh Ziglari ACID TESTER Diabetes mellitus with renal manifestations, type II or unspecified type, not stated as uncontrolled Wellness exam V70.0 Active Dee aPlmer APRN Routine general medical examination at a health care facility Fitting and adjustment of vascular catheter V58.81 Active 02/06 Dee Palmer APRN Encounter for fitting and adjustment of vascular catheter Unawareness of hypoglycemia in diabetes mellitus, type II 250.80 Active Maliheh Rodrigoglari ACID TESTER Diabetes mellitus with other specified manifestations, type [...] specified as recurrent) Gastritis Inactive Maliheh Ziglari ACID TESTER Unspecified gastritis and gastroduodenitis, 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 [...] po qd x 4 days 05/07 AZITHROMYCIN 38276631208 No Longer Active Dee Palmer APRN Active GUAIFENESIN DM 400-20 MG ORAL TABLET 1 pill by mouth twice daily, if needed for cough DEXTROMETHORPHAN-GUAIFENESIN 46998746737 Active Dee Palmer APRN Active PREDNISONE 20 MG ORAL TABLET 2 tabs daily for 4 days, 1 tab daily for 4 days, 1/2 tab daily for 4 days PREDNISONE 30472202752 Active Dee Palmer APRN Active ASPIRIN 81 MG ORAL TABLET 1 po qd ASPIRIN 77005045407 Active Dee Palmer APRN Active CALCIUM 500/D 500-200 MG-UNIT ORAL TABLET one tablet daily CALCIUM CARBONATE-VITAMIN D 33543026278 No Longer Active Dee Palmer APRN Active HYDROCODONE-ACETAMINOPHEN 7.5-325 MG ORAL TABLET 1-2 every 4-6 hrs prn 02/25 HYDROCODONE-ACETAMINOPHEN 82592260637 Active Marina Messina BESSY Active ASPIRIN 81 MG ORAL TABLET 1 tablet by mouth daily ASPIRIN 75605855773 No Longer Active Marina Messina BESSY Active SIMVASTATIN 80 MG ORAL TABLET 1/2 tablet daily SIMVASTATIN 28566817399 No Longer Active Mekhi Dukes MD Active OMEPRAZOLE 20 MG ORAL CAPSULE DELAYED RELEASE 1 qd OMEPRAZOLE 98155567014 No Longer Active Mekhi Dukes MD Active METOPROLOL TARTRATE 25 MG ORAL TABLET 1/2 tablet twice a day METOPROLOL TARTRATE 96210422662 No Longer Active Mekhi Dukes MD Active LISINOPRIL 5 MG ORAL TABLET 1 daily LISINOPRIL 97888153944 No Longer Active Mekhi Dukes MD Active NOVOLOG FLEXPEN 100 UNIT/ML SUBCUTANEOUS SOLUTION PEN-INJECTOR Take 8 units with each meal, add 1u/50 for blood sugars above 150. INSULIN ASPART 55738428448 Active Moy PARISH Active GABAPENTIN 300 MG ORAL CAPSULE 1 tab BID GABAPENTIN 42532522975 Active Tami Miller RN Active PREDNISONE 20 MG ORAL TABLET Take 2 daily for 3 days and then 1 daily for 3 days PREDNISONE 22403463986 No Longer Active Moy PARISH Active BENZONATATE 200 MG ORAL CAPSULE Take 1 tablet 3 times a day as needed for cough BENZONATATE 12028462618 No Longer Active Prosper Arenas MD Active HYDROCHLOROTHIAZIDE 25 MG ORAL TABLET 1 tablet by mouth daily HYDROCHLOROTHIAZIDE 93692517824 No Longer Active Prosper Arenas MD Active ACCU-CHEK JOANNA PLUS IN VITRO STRIP check blood sugars 5x a day, before each meal and bedtime and 15 minutes after treating a low blood. sugar GLUCOSE BLOOD 39170633378 Active Moy PARISH Active LANTUS SOLOSTAR 100 UNIT/ML SUBCUTANEOUS SOLUTION PEN-INJECTOR Take 40 units at 7-8pm daily INSULIN GLARGINE 75551257151 Active Maliheh Ziglari ACID TESTER Active MECLIZINE HCL 25 MG ORAL TABLET 1 daily needed for dizziness 2015 MECLIZINE HCL 28954097568 No Longer Active Maliheh Ziglari ACID TESTER Active BENZONATATE 200 MG ORAL CAPSULE 1 tab, 2-3 times a day BENZONATATE 50869729719 No Longer Active Maleh Ziglari ACID TESTER Active HALOPERIDOL 0.5 MG ORAL TABLET one tablet three times a day HALOPERIDOL 13921884506 No Longer Active Maliheh Ziglari ACID TESTER Active TRAZODONE HCL 50 MG ORAL TABLET three tablets at bed time TRAZODONE HCL 12452902191 No Longer Active Maleh Ziglari ACID TESTER Active REVLIMID 25 MG ORAL CAPSULE one capsule daily for 21 days then off for 7 days LENALIDOMIDE 06732724526 No Longer [facility] AC[facility] TESTER Active ZITHROMAX Z-EDDIE 250 MG ORAL TABLET 2 today, then 1 daily for 4 days AZITHROMYCIN 00535748123 No Longer Active 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 NOVOLIN R RELION 100 UNIT/ML INJECTION SOLUTION 30- 40 units each meal sliding scale INSULIN REGULAR HUMAN 53132200775 No Longer Active Moy Wallaceglari ACID TESTER Active HYDROCODONE-ACETAMINOPHEN 5-500 MG ORAL TABLET 1-2 FOUR TIMES A DAY, PRN 2010 HYDROCODONE-ACETAMINOPHEN 61540446826 No Longer Active Prosper Arenas MD Active DOXYCYCLINE HYCLATE 100 MG ORAL CAPSULE take one capsule by mouth twice daily for ten days DOXYCYCLINE HYCLATE 65151857592 No Longer Active Mekhi Dukes MD Active DOXYCYCLINE HYCLATE 100 MG ORAL CAPSULE take one capsule by mouth twice daily for ten days DOXYCYCLINE HYCLATE 100 MG ORAL CAPSULE 2128683 DOXYCYCLINE HYCLATE Inactive HYDROCODONE-ACETAMINOPHEN 5-500 MG ORAL TABLET 1-2 FOUR TIMES A DAY, PRN 2010 HYDROCODONE-ACETAMINOPHEN 5-500 MG ORAL TABLET 859329 HYDROCODONE-ACETAMINOPHEN Inactive NOVOLIN R RELION 100 UNIT/ML INJECTION SOLUTION 30- 40 units each meal sliding scale NOVOLIN R RELION 100 UNIT/ML INJECTION SOLUTION INSULIN REGULAR HUMAN Inactive ZITHROMAX Z-EDDIE 250 MG ORAL TABLET 2 today, then 1 daily for 4 days ZITHROMAX Z-EDDIE 250 MG ORAL TABLET 787314 AZITHROMYCIN Inactive REVLIMID 25 MG ORAL CAPSULE one capsule daily for 21 days then off for 7 days REVLIMID 25 MG ORAL CAPSULE LENALIDOMIDE Inactive TRAZODONE HCL 50 MG ORAL TABLET three tablets at bed time TRAZODONE HCL 50 MG ORAL TABLET 207345 TRAZODONE HCL Inactive HALOPERIDOL 0.5 MG ORAL TABLET one tablet three times a day HALOPERIDOL 0.5 MG ORAL TABLET 042707 HALOPERIDOL Inactive BENZONATATE 200 MG ORAL CAPSULE 1 tab, 2-3 times a day BENZONATATE 200 MG ORAL CAPSULE 563256 BENZONATATE Inactive MECLIZINE HCL 25 MG ORAL TABLET 1 daily needed for dizziness 2015 MECLIZINE HCL 25 MG ORAL TABLET 765050 MECLIZINE HCL Inactive HYDROCHLOROTHIAZIDE 25 MG ORAL TABLET 1 tablet by mouth daily HYDROCHLOROTHIAZIDE 25 MG ORAL TABLET 093414 HYDROCHLOROTHIAZIDE Inactive PREDNISONE 20 MG ORAL TABLET Take 2 daily for 3 days and then 1 daily for 3 days PREDNISONE 20 MG ORAL TABLET 860114 PREDNISONE Inactive LISINOPRIL 5 MG ORAL TABLET 1 daily LISINOPRIL 5 MG ORAL TABLET 156658 LISINOPRIL Inactive METOPROLOL TARTRATE 25 MG ORAL TABLET 1/2 tablet twice a day METOPROLOL TARTRATE 25 MG ORAL TABLET 868593 METOPROLOL TARTRATE Inactive OMEPRAZOLE 20 MG ORAL CAPSULE DELAYED RELEASE 1 qd OMEPRAZOLE 20 MG ORAL CAPSULE DELAYED RELEASE 745630 OMEPRAZOLE Inactive SIMVASTATIN 80 MG ORAL TABLET 1/2 tablet daily SIMVASTATIN 80 MG ORAL TABLET 777583 SIMVASTATIN Inactive ASPIRIN 81 MG ORAL TABLET 1 tablet by mouth daily ASPIRIN 81 MG ORAL TABLET 705570 ASPIRIN Inactive CALCIUM 500/D 500-200 MG-UNIT ORAL TABLET one tablet daily CALCIUM 500/D 500-200 MG-UNIT ORAL TABLET CALCIUM CARBONATE-VITAMIN D Inactive BENZONATATE 200 MG ORAL CAPSULE Take 1 tablet 3 times a day as needed for cough BENZONATATE 200 MG ORAL CAPSULE 832573 BENZONATATE Inactive AZITHROMYCIN 250 MG ORAL TABLET 2 po qd x 1 day, then 1 po qd x 4 days 05/07 AZITHROMYCIN 250 MG ORAL TABLET 169024 AZITHROMYCIN Inactive Immunizations Vaccine Administration Date Value [...] % platelet count 103 10*3/mm3 Lab Report: Comp. Metabolic Panel, CBC W/DIFF - Chemistry sodium, serum 137 mmol/L 653-011 7539/08/16 carbon dioxide, venous blood 26.3 mmol/L 21.0-32.0 [...] LABS - Chemistry cholesterol, serum 115 mg/dL 051-673 6923/08/18 triglyceride, serum, fasting 89 mg/dL 30-200 HDL cholesterol, serum 46 mg/dL 32-60 LDL cholesterol, serum 51 mg/dL 0-130 blood glucose 104 mg/dL 65-110 Lab Report: LIPID PANEL- REPOWER LAB - Chemistry cholesterol, serum 156 mg/dL [phone]/02/20 HDL cholesterol, serum 52 mg/dL > OR=40 [...] mg/dL Encounters Code Encounter Date Provider Facility CPT-85258 Level 3 Est. Patient 14:09:25 GROCERY SPECIALIST Dee Palmer APRN [facility] CPT-44040 Level 3 Est. Patient 10:53:32 GROCERY SPECIALIST Moy Garcia [facility] [place] CPT-25519 Level 3 Est. Patient 17:11:55 GROCERY SPECIALIST Ismael Gracia MD [facility] CPT-80198 Level 4 Est. Patient 16:29:19 CDT Mekhi Dukes MD [facility] CPT-46020 Level 3 New Patient 17:05:24 CDT Ismael Gracia MD [facility] CPT-62188 Level 2 Est. Patient 15:43:17 CDT Mekhi Dukes MD [facility] CPT-66242 Level 3 Est. Patient 09:30:37 CDT Moy Garcia [facility] [place] CPT-14649 Level 3 Est. Patient 10:00:14 CDT Mekhi Dukes MD [facility] CPT-88677 Level 3 Est. [facility] 12:24:[facility] CPT-11207 Level 3 Est. Patient 14:34:57 CDT Prosper Arenas MD [facility] CPT-09874 Level 3 New Patient 15:44:53 GROCERY SPECIALIST Mekhi Dukes MD [facility] CPT-26910 Level 3 Est. Patient 14:53:34 GROCERY SPECIALIST Prosper Arenas MD [facility] CPT-48372 Level 4 Est. Patient 10:05:41 GROCERY SPECIALIST Moy Bradshaw[facility]-88205 Level 3 Est. Patient 11:18:32 CDT Moy Garcia [facility] CPT-42511 Level 4 Est. Patient 11:05:10 CDT Moy Garcia [facility]-88303 Level 3 Est. Patient 11:08:27 GROCERY SPECIALIST Moy Garcia [facility] CPT-32948 Level 4 Est. Patient 10:43:59 CDT Prosper Arenas MD [facility]-43462 Level 3 Est. Patient 10:51:19 CDT Moy Garcia [facility] CPT-85621 Level 3 Est. Patient 10:20:31 CDT Moy Garcia [facility] CPT-70013 Level 3 Est. Patient 17:08:45 CDT Moy Garcia [facility] CPT-06320 Level 2 Est. Patient 13:54:36 CDT Augustinajaclyn Mata [facility] CPT-36779 Level 3 Est. Patient 12:00:42 CDT Prosper Arenas MD [facility] [place]-24903 Level 3 Est. Patient 09:57:28 GROCERY SPECIALIST Moy Bradshawrex [facility] CPT-19523 Level 3 Est. Patient 11:41:19 GROCERY SPECIALIST Moy Bradshawrex [facility] CPT-26856 Level 4 Est. Patient 17:07:35 GROCERY SPECIALIST Moy Bradshawrex [facility] CPT-50921 Level 5 Est. Patient 14:33:32 CDT Moy Zisania PARISH [facility] CPT-03164 Level 3 Est. Patient 12:25:35 CDT Prosper Arenas MD [facility] Procedures Code Procedure Name Date Entry Date Standard Description CPT-17179 Chest, 2 views 14:17:20 GROCERY SPECIALIST CPT-88166 Postop F/U Visit 14:44:45 GROCERY SPECIALIST CPT-81035 Postop F/U Visit 17:20:20 GROCERY SPECIALIST CPT-G0439 Subsequent Annual Wellness Exam 08:39:41 GROCERY SPECIALIST CPT-000 Give Appropriate Flu Vaccine 10:13:55 GROCERY SPECIALIST CPT-000 Give Immunizations Due 10:13:55 GROCERY SPECIALIST CPT-21271 HGBA1C - LAB USE ONLY 09:42:47 GROCERY SPECIALIST CPT-70060 TPSA - LAB USE ONLY 09:42:46 GROCERY SPECIALIST CPT-46527 Venipuncture Draw Fee 09:42:46 GROCERY SPECIALIST CPT-48978 Port a cath flush 13:33:18 GROCERY SPECIALIST CPT-62283 First Vx - Ix admin for Medicare patients 10:42:57 GROCERY SPECIALIST CPT-32483 Fluzone Preservative Free Intramuscular Suspension 10:42 :57 GROCERY SPECIALIST CPT-G0438 Initial Annual Wellness Exam 10:13:55 GROCERY SPECIALIST CPT-000 Give Appropriate Flu Vaccine 10:44:04 CDT CPT-000 Give Pneumovax 10:44:03 CDT CPT-13124 Port a cath flush 17:04:43 CDT CPT-52244 Prevnar 13 11:19:17 CDT CPT-92709 Fluzone Quadrivalent preservative free (>=3yrs.) 11:19: 17 CDT CPT-29058 Immunization Each Additional Inj 11:19:17 CDT CPT-75195 Immunization Single Admin 11:19:17 CDT CPT-46048 Port a cath flush 13:28:22 CDT CPT-TCMM Transitional Care Mgmt-Moderate 13:40:15 CDT CPT-G0008 Administration of Influenza Virus Vaccine 13:59:20 CDT CPT-30447 Fluzone High-Dose Intramuscular Suspension 13:59:20 CDT CPT-84504 Venipuncture Draw Fee 09:56:19 CDT CPT-OV Office Visit 15:46:10 CDT
--- OUTSIDE RECORDS SUMMARY | 2017-08-25 21:04 | XMS REPORT | Clinical Summary ---
Author Author Admin, [place] Organization [employer] Address Unknown Phone Unavailable Allergies, Adverse Reactions, Alerts Allergy Name Reaction Description Start Date Severity Status Provider ERYTHROMYCIN Stomach cramps Moderate Active Prosper Arenas MD CODEINE Critical Active Maliheh Ziglari SCRUBBER SYSTEM ATTENDANT DARVOCET Critical Active Maliheh Ziglari SCRUBBER SYSTEM ATTENDANT LEVAQUIN Critical Active Maliheh Ziglari SCRUBBER SYSTEM ATTENDANT Conditions or Problems Problem Name Problem Code Onset Date Status Entry Date Provider Comment Standard Description Annotate Diabetes, Type 2 250.00 Resolved 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 mellitus 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, type II [...] type II, uncontrolled 250.02 Active Maliheh Rodrigoglari SCRUBBER SYSTEM ATTENDANT Diabetes mellitus 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, type [...] with hyperglycemia 250.00 Active 03/21 Maliheh Ziglari SCRUBBER SYSTEM ATTENDANT Diabetes mellitus 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, type II or unspecified type, not stated as uncontrolled senior living use of insulin treatment V58.67 Active Luxiheh Rodrigoglari SCRUBBER SYSTEM ATTENDANT Long-term (current) use of insulin Diabetes mellitus, type II with hypoglycemia 250.80 Active 07/22 Maliheh Ziglari SCRUBBER SYSTEM ATTENDANT Diabetes mellitus with other specified manifestations, type II or unspecified type, not stated as uncontrolled 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 Maliheh Ziglari SCRUBBER SYSTEM ATTENDANT Diabetes mellitus with renal manifestations, type II or unspecified type, not stated as uncontrolled Wellness exam V70.0 Active Dee Palmer APRN Routine general medical examination at a health care facility Fitting and adjustment of vascular catheter V58.81 Active 02/06 Dee Palmer APRN Encounter for fitting and adjustment of vascular catheter Unawareness of hypoglycemia in diabetes mellitus, type II 250.80 Active Maliheh Ziglari SCRUBBER SYSTEM ATTENDANT Diabetes mellitus with other specified manifestations, type [...] Dukes MD Syncope and collapse ICD-780.2 Inactive Mkehi Dukes MD Hypokalemia ICD-276.8 Inactive Mekhi Dukes [...] 1-2 every 4-6 hrs prn 02/25 HYDROCODONE-ACETAMINOPHEN 47463098258 Active Marina Messina APRN Active ASPIRIN 81 MG ORAL TABLET 1 tablet by mouth daily ASPIRIN 25488437795 No Longer Active Marina Messina APRN Active SIMVASTATIN 80 MG ORAL TABLET 1/2 tablet daily SIMVASTATIN 05354458769 No Longer Active Mekhi Dukes MD Active OMEPRAZOLE 20 MG ORAL CAPSULE DELAYED RELEASE 1 qd OMEPRAZOLE 79863822363 No Longer Active Mekhi Dukes MD Active METOPROLOL TARTRATE 25 MG ORAL TABLET 1/2 tablet twice a day METOPROLOL TARTRATE 04671879565 No Longer Active Mekhi Dukes MD Active LISINOPRIL 5 MG ORAL TABLET 1 daily LISINOPRIL 78459670874 No Longer Active Mekhi Dukes MD Active NOVOLOG FLEXPEN 100 UNIT/ML SUBCUTANEOUS SOLUTION PEN-INJECTOR Take 8 units with each meal, add 1u/50 for blood sugars above 150. INSULIN ASPART 22726273085 Active Moy PARISH Active GABAPENTIN 300 MG ORAL CAPSULE 1 tab BID GABAPENTIN 37510662585 Active Tami Miller RN Active PREDNISONE 20 MG ORAL TABLET Take 2 daily for 3 days and then 1 daily for 3 days PREDNISONE 15911121832 No Longer Active Moy PARISH Active BENZONATATE 200 MG ORAL CAPSULE Take 1 tablet 3 times a day as needed for cough BENZONATATE 64175244245 No Longer Active Prosper Arenas MD Active HYDROCHLOROTHIAZIDE 25 MG ORAL TABLET 1 tablet by mouth daily HYDROCHLOROTHIAZIDE 88952565194 No Longer Active Prosper Arenas MD Active ACCU-CHEK JOANNA PLUS IN VITRO STRIP check blood sugars 5x a day, before each meal and bedtime and 15 minutes after treating a low blood. sugar GLUCOSE BLOOD 16289438390 Active Maliheh Ziglari SCRUBBER SYSTEM ATTENDANT Active LANTUS SOLOSTAR 100 UNIT/ML SUBCUTANEOUS SOLUTION PEN-INJECTOR Take 40 units at 7-8pm daily INSULIN GLARGINE 52078440764 Active Maliheh Ziglari SCRUBBER SYSTEM ATTENDANT Active MECLIZINE HCL 25 MG ORAL TABLET 1 daily needed for dizziness 2015 MECLIZINE HCL 68073899487 No Longer Active Maliheh Ziglari SCRUBBER SYSTEM ATTENDANT Active BENZONATATE 200 MG ORAL CAPSULE 1 tab, 2-3 times a day BENZONATATE 97629600023 No Longer Active Maliheh Ziglari SCRUBBER SYSTEM ATTENDANT Active HALOPERIDOL 0.5 MG ORAL TABLET one tablet three times a day HALOPERIDOL 33623710073 No Longer Active Maliheh Ziglari SCRUBBER SYSTEM ATTENDANT Active TRAZODONE HCL 50 MG ORAL TABLET three tablets at bed time TRAZODONE HCL 00477932975 No Longer Active Maliheh Ziglari SCRUBBER SYSTEM ATTENDANT Active REVLIMID 25 MG ORAL CAPSULE one capsule daily for 21 days then off for 7 days LENALIDOMIDE 71188101414 No Longer Active Maliheh Ziglari SCRUBBER SYSTEM ATTENDANT Active ZITHROMAX Z-EDDIE 250 MG ORAL TABLET 2 today, then 1 daily for 4 days AZITHROMYCIN 36999657254 No Longer Active Augustina Mata APRN Active NOVOLIN R RELION 100 UNIT/ML INJECTION SOLUTION 30- 40 units each meal sliding scale INSULIN REGULAR HUMAN 55786422010 No Longer Active Maliheh Ziglari SCRUBBER SYSTEM ATTENDANT Active CALCIUM 500/D 500-200 MG-UNIT ORAL TABLET one tablet daily CALCIUM CARBONATE-VITAMIN D 68349656457 Active Prosper Arenas MD Active HYDROCODONE-ACETAMINOPHEN 5-500 MG ORAL TABLET 1-2 FOUR TIMES A DAY, PRN 2010 HYDROCODONE-ACETAMINOPHEN 15594629337 No Longer Active Prosper Arenas MD Active DOXYCYCLINE HYCLATE 100 MG ORAL CAPSULE take one capsule by mouth twice daily for ten days DOXYCYCLINE HYCLATE 42578704087 No Longer Active Mekhi Dukes MD Active DOXYCYCLINE HYCLATE 100 MG ORAL CAPSULE take one capsule by mouth twice daily for ten days DOXYCYCLINE HYCLATE 100 MG ORAL CAPSULE 7234343 DOXYCYCLINE HYCLATE Inactive HYDROCODONE-ACETAMINOPHEN 5-500 MG ORAL TABLET 1-2 FOUR TIMES A DAY, PRN 2010 HYDROCODONE-ACETAMINOPHEN 5-500 MG ORAL TABLET 729532 HYDROCODONE-ACETAMINOPHEN Inactive NOVOLIN R RELION 100 UNIT/ML INJECTION SOLUTION 30- 40 units each meal sliding scale NOVOLIN R RELION 100 UNIT/ML INJECTION SOLUTION INSULIN REGULAR HUMAN Inactive ZITHROMAX Z-EDDIE 250 MG ORAL TABLET 2 today, then 1 daily for 4 days ZITHROMAX Z-EDDIE 250 MG ORAL TABLET 648242 AZITHROMYCIN Inactive REVLIMID 25 MG ORAL CAPSULE one capsule daily for 21 days then off for 7 days REVLIMID 25 MG ORAL CAPSULE LENALIDOMIDE Inactive TRAZODONE HCL 50 MG ORAL TABLET three tablets at bed time TRAZODONE HCL 50 MG ORAL TABLET 643927 TRAZODONE HCL Inactive HALOPERIDOL 0.5 MG ORAL TABLET one tablet three times a day HALOPERIDOL 0.5 MG ORAL TABLET 444075 HALOPERIDOL Inactive BENZONATATE 200 MG ORAL CAPSULE 1 tab, 2-3 times a day BENZONATATE 200 MG ORAL CAPSULE 588454 BENZONATATE Inactive MECLIZINE HCL 25 MG ORAL TABLET 1 daily needed for dizziness 2015 MECLIZINE HCL 25 MG ORAL TABLET 196897 MECLIZINE HCL Inactive HYDROCHLOROTHIAZIDE 25 MG ORAL TABLET 1 tablet by mouth daily HYDROCHLOROTHIAZIDE 25 MG ORAL TABLET 819056 HYDROCHLOROTHIAZIDE Inactive PREDNISONE 20 MG ORAL TABLET Take 2 daily for 3 days and then 1 daily for 3 days PREDNISONE 20 MG ORAL TABLET 632161 PREDNISONE Inactive LISINOPRIL 5 MG ORAL TABLET 1 daily LISINOPRIL 5 MG ORAL TABLET 092312 LISINOPRIL Inactive METOPROLOL TARTRATE 25 MG ORAL TABLET 1/2 tablet twice a day METOPROLOL TARTRATE 25 MG ORAL TABLET 609849 METOPROLOL TARTRATE Inactive OMEPRAZOLE 20 MG ORAL CAPSULE DELAYED RELEASE 1 qd OMEPRAZOLE 20 MG ORAL CAPSULE DELAYED RELEASE 126371 OMEPRAZOLE Inactive SIMVASTATIN 80 MG ORAL TABLET 1/2 tablet daily SIMVASTATIN 80 MG ORAL TABLET 000065 SIMVASTATIN Inactive ASPIRIN 81 MG ORAL TABLET 1 tablet by mouth daily ASPIRIN 81 MG ORAL TABLET 260852 ASPIRIN Inactive BENZONATATE 200 MG ORAL CAPSULE Take 1 tablet 3 times a day as needed for cough BENZONATATE 200 MG ORAL CAPSULE 371978 BENZONATATE Inactive Immunizations Vaccine Administration Date Value [...] W/DIFF - Chemistry sodium, serum 137 mmol/L [phone]/08/16 carbon dioxide, venous blood 26.3 mmol/L 21.0-32.0 [...] 4.3-6.0 Lab Report: [facility]id [facility], [facility] Chemistry cholesterol, serum 115 mg/dL 536-455 9252/08/18 triglyceride, serum, fasting 89 mg/dL 30-200 HDL cholesterol, serum 46 mg/dL 32-60 LDL cholesterol, serum 51 mg/dL 0-130 blood glucose 104 mg/dL 65-110 Lab Report: LIPID PANEL- [facility] - Chemistry cholesterol, serum 156 mg/dL [phone]/02/20 HDL cholesterol, serum 52 mg/dL > OR=40 [...] mg/dL Encounters Code Encounter Date Provider Facility CPT-07450 Level 3 Est. Patient 17:11:55 CUSTOMER SERVICE CONSULTANT Ismael Gracia MD [facility] CPT-30481 Level 4 Est. Patient 16:29:19 CDT Mekhi Dukes MD [facility] CPT-02118 Level 3 New Patient 17:05:24 CDT Ismael Gracia MD [facility] CPT-09363 Level 2 Est. Patient 15:43:17 CDT Mekhi Dukes MD [facility] CPT-69240 Level 3 Est. Patient 09:30:37 CDT [facility] Level 3 Est. Patient 10:00:14 CDT Mekhi Dukes MD [facility] CPT-61372 Level 3 Est. Patient 12:24:09 CDT [facility] CPT-78580 Level 3 Est. Patient 14:34:57 CDT Prosper Arenas MD [facility] CPT-56854 Level 3 New Patient 15:44:53 CUSTOMER SERVICE CONSULTANT Mekhi Dukes MD [facility] CPT-10858 Level 3 Est. Patient 14:53:34 CUSTOMER SERVICE CONSULTANT Prosper Arenas MD [facility] CPT-31384 Level 4 Est. Patient 10:05:41 CUSTOMER SERVICE CONSULTANT [facility] CPT-45314 Level 3 Est. Patient 11:18:32 CDT [facility] CPT-51175 Level 4 Est. Patient 11:05:10 CDT [facility] CPT-33524 Level 3 Est. Patient 11:08:27 CUSTOMER SERVICE CONSULTANT Moy Garcia [facility] CPT-90519 Level 4 Est. Patient 10:43:59 CDT Prosper Arenas MD [facility] CPT-99068 Level 3 Est. Patient 10:51:19 CDT Moy Garcia [facility] CPT-15313 Level 3 Est. Patient 10:20:31 CDT Moy Garcia [facility] CPT-45786 Level 3 Est. [facility]08:[facility] CPT-71609 Level 2 Est. Patient 13:54:36 CDT Augustina Mata APRN [facility] CPT-23379 Level 3 Est. Patient 12:00:42 CDT Prosper Arenas MD [facility] CPT-40644 Level 3 Est. Patient 09:57:28 CUSTOMER SERVICE CONSULTANT Moy Garcia [facility] CPT-96459 Level 3 Est. Patient 11:41:19 CUSTOMER SERVICE CONSULTANT Luxshoaib Garcia [facility] CPT-71106 Level 4 Est. Patient 17:07:35 CUSTOMER SERVICE CONSULTANT Moy Garcia [facility] CPT-72820 Level 5 Est. Patient 14:33:32 CDT Moy Garcia [facility] CPT-20244 Level 3 Est. Patient 12:25:35 CDT Prosper Arenas MD [facility] Procedures Code Procedure Name Date Entry Date Standard Description CPT-73269 Postop F/U Visit 17:20:20 CUSTOMER SERVICE CONSULTANT CPT-G0439 [facility] Annual Wellness Exam 08:39:41 CUSTOMER SERVICE CONSULTANT CPT-000 Give Appropriate Flu Vaccine 10:13:55 CUSTOMER SERVICE CONSULTANT CPT-000 Give Immunizations Due 10:13:55 CUSTOMER SERVICE CONSULTANT CPT-88843 HGBA1C - LAB USE ONLY 09:42:47 CUSTOMER SERVICE CONSULTANT CPT-50655 TPSA - LAB USE ONLY 09:42:46 CUSTOMER SERVICE CONSULTANT CPT-63815 Venipuncture Draw Fee 09:42:46 CUSTOMER SERVICE CONSULTANT CPT-42951 Port a cath flush 13:33:18 CUSTOMER SERVICE CONSULTANT CPT-90763 First Vx - Ix admin for Medicare patients 10:42:57 CUSTOMER SERVICE CONSULTANT CPT-65433 Fluzone Preservative Free Intramuscular Suspension 10:42 :57 CUSTOMER SERVICE CONSULTANT CPT-G0438 Initial Annual Wellness Exam 10:13:55 CUSTOMER SERVICE CONSULTANT CPT-000 Give Appropriate Flu Vaccine 10:44:04 CDT CPT-000 Give Pneumovax 10:44:03 CDT CPT-30640 Port a cath flush 17:04:43 CDT CPT-23763 Prevnar 13 11:19:17 CDT CPT-39166 Fluzone Quadrivalent preservative free (>=3yrs.) 11:19: 17 CDT CPT-91618 Immunization Each Additional Inj 11:19:17 CDT CPT-35280 Immunization Single Admin 11:19:17 CDT CPT-17492 Port a cath flush 13:28:22 CDT CPT-TCMM Transitional Care Mgmt-Moderate 13:40:15 CDT CPT-G0008 Administration of Influenza Virus Vaccine 13:59:20 CDT CPT-62277 Fluzone High-Dose Intramuscular Suspension 13:59:20 CDT CPT-54911 Venipuncture Draw Fee 09:56:19 CDT CPT-OV Office Visit 15:46:10 CDT
--- OUTSIDE RECORDS SUMMARY | 2017-08-25 21:05 | XMS REPORT ---
Author Author [facility] Medical Staff Organization [facility] [employer] [facility] Address [address] [place] [id number] Phone [phone] Summary purpose TRANSITION OF CARE AUTO GENERATION [...] diagnostic tests and/or laboratory data RESULTS Chemistry [id number]:06:00 Result Normal Range Units Sodium 137 134-145 [...] Estimated GFR L 44 >=60 mL/min/1.7 Hematology [id number]:06:00 Result Normal Range Units WBC 8.0 4.8-10.8 103/uL RBC 5.0 4.7-6.1 106/uL HGB 16.2 13.0-18.0 g/dl HCT 46.4 41.9-52.0 % MCV 93.4 80-94 FL MCH H 32.6 27-31 pg MCHC 34.9 33-37 g/dl RDW 11.9 11.5-15.5 % PLT 201 130-400 103/uL MPV H 10.6 7.3-10.4 FL Neutro % L 28.9 40-70 % Lymph % H 55.3 20-40 % [place] % H 11.6 0-10.0 % Eos % 3.0 0-7.0 % Baso % 0.8 0-2 % Neutro # 2.3 1.5-7.5 103/uL Lymph # H 4.4 0.9-4.0 103/uL [place] # H 0.9 0-0.8 103/uL Eos # 0.2 0-0.6 103/uL Baso # 0.1 0-0.1 103/uL Radiology Results :06:00 Result Normal Range Units MPV H 10.6 7.3-10.4 FL History of procedures No procedures [...]
--- OUTSIDE RECORDS SUMMARY | 2017-08-25 21:05 | XMS REPORT | Clinical Summary ---
Author Author Admin, IWONA Organization [employer] Address Unknown Phone Unavailable Allergies, Adverse Reactions, Alerts Allergy Name Reaction Description Start Date Severity Status Provider ERYTHROMYCIN Stomach cramps Moderate Active Prosper Arenas MD CODEINE Critical Active Maliheh Ziglari METAL BONDER DARVOCET Critical Active Maliheh Ziglari METAL BONDER LEVAQUIN Critical Active Maliheh Ziglari METAL BONDER Conditions or Problems Problem Name Problem Code Onset Date Status Entry Date Provider Comment Standard Description Annotate Diabetes, Type 2 250.00 Resolved Tami Miller feeder tender mellitus 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, type II [...] type II, uncontrolled 250.02 Active Maliheh Rodrigoglari METAL BONDER Diabetes mellitus 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, type [...] with hyperglycemia 250.00 Active 03/21 Maliheh Ziglari METAL BONDER Diabetes mellitus 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, type II or unspecified type, not stated as uncontrolled [facility] use of insulin treatment V58.67 Active Luxiheh Rodrigoglari METAL BONDER Long-term (current) use of insulin Diabetes mellitus, type II with hypoglycemia 250.80 Active 07/22 Maliheh Ziglari METAL BONDER Diabetes mellitus with other specified manifestations, type II or unspecified type, not stated as uncontrolled 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 Maliheh Ziglari METAL BONDER Diabetes mellitus with renal manifestations, type II or unspecified type, not stated as uncontrolled Wellness exam V70.0 Active Dee Palmer APRN Routine general medical examination at a health care facility Fitting and adjustment of vascular catheter V58.81 Active 02/06 Dee Palmer APRN Encounter for fitting and adjustment of vascular catheter Unawareness of hypoglycemia in diabetes mellitus, type II 250.80 Active Maliheh Rodrigoglari METAL BONDER Diabetes mellitus with other specified manifestations, type [...] specified as recurrent) Gastritis Inactive Maliheh Ziglari METAL BONDER Unspecified gastritis and gastroduodenitis, 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 [...] Mekhi Dukes MD Cough ICD-786.2 Inactive Mekhi Dueks MD Vertigo ICD-780.4 Inactive Mekhi Dukes MD [...] po qd x 4 days 05/07 AZITHROMYCIN 85776616379 No Longer Active Dee Palmer APRN Active GUAIFENESIN DM 400-20 MG ORAL TABLET 1 pill by mouth twice daily, if needed for cough DEXTROMETHORPHAN-GUAIFENESIN 80856333993 Active Dee Palmer APRN Active PREDNISONE 20 MG ORAL TABLET 2 tabs daily for 4 days, 1 tab daily for 4 days, 1/2 tab daily for 4 days PREDNISONE 87021762544 Active Dee Palmer APRN Active ASPIRIN 81 MG ORAL TABLET 1 po qd ASPIRIN 30783441479 Active Dee Palmer APRN Active CALCIUM 500/D 500-200 MG-UNIT ORAL TABLET one tablet daily CALCIUM CARBONATE-VITAMIN D 95974032018 No Longer Active Dee Palmer APRN Active HYDROCODONE-ACETAMINOPHEN 7.5-325 MG ORAL TABLET 1-2 every 4-6 hrs prn 02/25 HYDROCODONE-ACETAMINOPHEN 09523833059 Active Marina Messina BESSY Active ASPIRIN 81 MG ORAL TABLET 1 tablet by mouth daily ASPIRIN 63163795728 No Longer Active Marina Messina BESSY Active SIMVASTATIN 80 MG ORAL TABLET 1/2 tablet daily SIMVASTATIN 53396566834 No Longer Active Mekhi Dukes MD Active OMEPRAZOLE 20 MG ORAL CAPSULE DELAYED RELEASE 1 qd OMEPRAZOLE 06068859834 No Longer Active Mekhi Dukes MD Active METOPROLOL TARTRATE 25 MG ORAL TABLET 1/2 tablet twice a day METOPROLOL TARTRATE 85693348492 No Longer Active Mekhi Dukes MD Active LISINOPRIL 5 MG ORAL TABLET 1 daily LISINOPRIL 55330775363 No Longer Active Mekhi Dukes MD Active NOVOLOG FLEXPEN 100 UNIT/ML SUBCUTANEOUS SOLUTION PEN-INJECTOR Take 8 units with each meal, add 1u/50 for blood sugars above 150. INSULIN ASPART 24325780421 Active Moy PARISH Active GABAPENTIN 300 MG ORAL CAPSULE 1 tab BID GABAPENTIN 34525627064 Active Tami Miller RN Active PREDNISONE 20 MG ORAL TABLET Take 2 daily for 3 days and then 1 daily for 3 days PREDNISONE 63946271450 No Longer Active Moy PARISH Active BENZONATATE 200 MG ORAL CAPSULE Take 1 tablet 3 times a day as needed for cough BENZONATATE 03760858800 No Longer Active Prosper Arenas MD Active HYDROCHLOROTHIAZIDE 25 MG ORAL TABLET 1 tablet by mouth daily HYDROCHLOROTHIAZIDE 53827605091 No Longer Active Prosper Arenas MD Active ACCU-CHEK JOANNA PLUS IN VITRO STRIP check blood sugars 5x a day, before each meal and bedtime and 15 minutes after treating a low blood. sugar GLUCOSE BLOOD 75082746839 Active Moy PARISH Active LANTUS SOLOSTAR 100 UNIT/ML SUBCUTANEOUS SOLUTION PEN-INJECTOR Take 40 units at 7-8pm daily INSULIN GLARGINE 25470569760 Active Maliheh Ziglari METAL BONDER Active MECLIZINE HCL 25 MG ORAL TABLET 1 daily needed for dizziness 2015 MECLIZINE HCL 82616138034 No Longer Active Maliheh Ziglari METAL BONDER Active BENZONATATE 200 MG ORAL CAPSULE 1 tab, 2-3 times a day BENZONATATE 73034086420 No Longer Active Maleh Ziglari METAL BONDER Active HALOPERIDOL 0.5 MG ORAL TABLET one tablet three times a day HALOPERIDOL 86686898126 No Longer Active Maliheh Ziglari METAL BONDER Active TRAZODONE HCL 50 MG ORAL TABLET three tablets at bed time TRAZODONE HCL 75989285669 No Longer Active Maleh Ziglari METAL BONDER Active REVLIMID 25 MG ORAL CAPSULE one capsule daily for 21 days then off for 7 days LENALIDOMIDE 80435128024 No Longer Active [facility] Ziglari METAL BONDER Active ZITHROMAX Z-EDDIE 250 MG ORAL TABLET 2 today, then 1 daily for 4 days AZITHROMYCIN 47754175462 No Longer Active Augustina Mata SPECIAL MACHINE OPERATOR Active NOVOLIN R RELION 100 UNIT/ML INJECTION SOLUTION 30- 40 units each meal sliding scale INSULIN REGULAR HUMAN 79233908120 No Longer Active Moy Wallaceglari METAL BONDER Active HYDROCODONE-ACETAMINOPHEN 5-500 MG ORAL TABLET 1-2 FOUR TIMES A DAY, PRN 2010 HYDROCODONE-ACETAMINOPHEN 70824738632 No Longer Active Prosper Arenas MD Active DOXYCYCLINE HYCLATE 100 MG ORAL CAPSULE take one capsule by mouth twice daily for ten days DOXYCYCLINE HYCLATE 96850707830 No Longer Active Mekhi Dukes MD Active DOXYCYCLINE HYCLATE 100 MG ORAL CAPSULE take one capsule by mouth twice daily for ten days DOXYCYCLINE HYCLATE 100 MG ORAL CAPSULE 4563290 DOXYCYCLINE HYCLATE Inactive HYDROCODONE-ACETAMINOPHEN 5-500 MG ORAL TABLET 1-2 FOUR TIMES A DAY, PRN 2010 HYDROCODONE-ACETAMINOPHEN 5-500 MG ORAL TABLET 812694 HYDROCODONE-ACETAMINOPHEN Inactive NOVOLIN R RELION 100 UNIT/ML INJECTION SOLUTION 30- 40 units each meal sliding scale NOVOLIN R RELION 100 UNIT/ML INJECTION SOLUTION INSULIN REGULAR HUMAN Inactive ZITHROMAX Z-EDDIE 250 MG ORAL TABLET 2 today, then 1 daily for 4 days ZITHROMAX Z-EDDIE 250 MG ORAL TABLET 434319 AZITHROMYCIN Inactive REVLIMID 25 MG ORAL CAPSULE one capsule daily for 21 days then off for 7 days REVLIMID 25 MG ORAL CAPSULE LENALIDOMIDE Inactive TRAZODONE HCL 50 MG ORAL TABLET three tablets at bed time TRAZODONE HCL 50 MG ORAL TABLET 900292 TRAZODONE HCL Inactive HALOPERIDOL 0.5 MG ORAL TABLET one tablet three times a day HALOPERIDOL 0.5 MG ORAL TABLET 743311 HALOPERIDOL Inactive BENZONATATE 200 MG ORAL CAPSULE 1 tab, 2-3 times a day BENZONATATE 200 MG ORAL CAPSULE 846632 BENZONATATE Inactive MECLIZINE HCL 25 MG ORAL TABLET 1 daily needed for dizziness 2015 MECLIZINE HCL 25 MG ORAL TABLET 209154 MECLIZINE HCL Inactive HYDROCHLOROTHIAZIDE 25 MG ORAL TABLET 1 tablet by mouth daily HYDROCHLOROTHIAZIDE 25 MG ORAL TABLET 688484 HYDROCHLOROTHIAZIDE Inactive PREDNISONE 20 MG ORAL TABLET Take 2 daily for 3 days and then 1 daily for 3 days PREDNISONE 20 MG ORAL TABLET 833945 PREDNISONE Inactive LISINOPRIL 5 MG ORAL TABLET 1 daily LISINOPRIL 5 MG ORAL TABLET 876582 LISINOPRIL Inactive METOPROLOL TARTRATE 25 MG ORAL TABLET 1/2 tablet twice a day METOPROLOL TARTRATE 25 MG ORAL TABLET 765438 METOPROLOL TARTRATE Inactive OMEPRAZOLE 20 MG ORAL CAPSULE DELAYED RELEASE 1 qd OMEPRAZOLE 20 MG ORAL CAPSULE DELAYED RELEASE 965831 OMEPRAZOLE Inactive SIMVASTATIN 80 MG ORAL TABLET 1/2 tablet daily SIMVASTATIN 80 MG ORAL TABLET 097718 SIMVASTATIN Inactive ASPIRIN 81 MG ORAL TABLET 1 tablet by mouth daily ASPIRIN 81 MG ORAL TABLET 846941 ASPIRIN Inactive CALCIUM 500/D 500-200 MG-UNIT ORAL TABLET one tablet daily CALCIUM 500/D 500-200 MG-UNIT ORAL TABLET CALCIUM CARBONATE-VITAMIN D Inactive BENZONATATE 200 MG ORAL CAPSULE Take 1 tablet 3 times a day as needed for cough BENZONATATE 200 MG ORAL CAPSULE 751224 BENZONATATE Inactive AZITHROMYCIN 250 MG ORAL TABLET 2 po qd x 1 day, then 1 po qd x 4 days 05/07 AZITHROMYCIN 250 MG ORAL TABLET 173258 AZITHROMYCIN Inactive Immunizations Vaccine Administration Date Value [...] W/DIFF - Chemistry sodium, serum 137 mmol/L 006-102 3828/08/16 carbon dioxide, venous blood 26.3 mmol/L 21.0-32.0 [...] LABS - Chemistry cholesterol, serum 115 mg/dL 143-082 3364/08/18 triglyceride, serum, fasting 89 mg/dL 30-200 HDL cholesterol, serum 46 mg/dL 32-60 LDL cholesterol, serum 51 mg/dL 0-130 blood glucose 104 mg/dL 65-110 Lab Report: LIPID PANEL- REPOWER LAB - Chemistry cholesterol, serum 156 mg/dL 733-863 5158/02/20 HDL cholesterol, serum 52 mg/dL > OR=40 [...] mg/dL Encounters Code Encounter Date Provider Facility CPT-00207 Level 3 Est. Patient 14:09:25 ELECTRIC DRILL OPERATOR Dee Palmer APRN [facility] CPT-32311 Level 3 Est. Patient 10:53:32 ELECTRIC DRILL OPERATOR Moy Garcia [facility] CPT-63269 Level 3 Est. Patient 17:11:55 ELECTRIC DRILL OPERATOR Ismael Gracia MD [facility] CPT-39975 Level 4 Est. Patient 16:29:19 CDT Mekhi Dukes MD [facility] CPT-98873 Level 3 New Patient 17:05:24 CDT Ismael Gracia MD [facility] CPT-73133 Level 2 Est. Patient 15:43:17 CDT Mekhi Dukes MD [facility] CPT-86468 Level 3 Est. Patient 09:30:37 CDT Moy Garcia [facility] CPT-78797 Level 3 Est. Patient 10:00:14 CDT Mekhi Dukes MD [facility] CPT-00585 Level 3 Est. [facility]24[facility] CPT-55105 Level 3 Est. Patient 14:34:57 CDT Prosper Arenas MD [facility] CPT-18828 Level 3 New Patient 15:44:53 ELECTRIC DRILL OPERATOR Mekhi Dukes MD [facility] CPT-51590 Level 3 Est. Patient 14:53:34 ELECTRIC DRILL OPERATOR Prosper Arenas MD [facility] CPT-13680 Level 4 Est. Patient 10:05:41 ELECTRIC DRILL OPERATOR Moy Bradshawrex [facility]-66316 Level 3 Est. Patient 11:18:32 CDT Moy Garcia [facility] CPT-04787 Level 4 Est. Patient 11:05:10 CDT Moy Garcia [facility]-60230 Level 3 Est. Patient 11:08:27 ELECTRIC DRILL OPERATOR Moy Garcia [facility] CPT-40486 Level 4 Est. Patient 10:43:59 CDT Prosper Arenas MD [facility]-89284 Level 3 Est. Patient 10:51:19 CDT Moy Garcia [facility] CPT-55342 Level 3 Est. Patient 10:20:31 CDT Moy Garcia [facility] CPT-75838 Level 3 Est. Patient 17:08:45 CDT Moy Garcia [facility] CPT-44348 Level 2 Est. Patient 13:54:36 CDT Augustinajaclyn Mata [facility] CPT-70621 Level 3 Est. Patient 12:00:42 CDT Prosper Arenas MD [facility]-20487 Level 3 Est. Patient 09:57:28 ELECTRIC DRILL OPERATOR Moy Bradshawrex [facility] CPT-09803 Level 3 Est. Patient 11:41:19 ELECTRIC DRILL OPERATOR Moy Bradshawrex [facility] CPT-91507 Level 4 Est. Patient 17:07:35 ELECTRIC DRILL OPERATOR Moy Bradshawrex [facility] CPT-65350 Level 5 Est. Patient 14:33:32 CDT Moy Zisania PARISH [facility] CPT-18814 Level 3 Est. Patient 12:25:35 CDT Prosper Arenas MD [facility] Procedures Code Procedure Name Date Entry Date Standard Description CPT-86708 Chest, 2 views 14:17:20 ELECTRIC DRILL OPERATOR CPT-52588 Postop F/U Visit 14:44:45 ELECTRIC DRILL OPERATOR CPT-29980 Postop F/U Visit 17:20:20 ELECTRIC DRILL OPERATOR CPT-G0439 Subsequent Annual Wellness Exam 08:39:41 ELECTRIC DRILL OPERATOR CPT-000 Give Appropriate Flu Vaccine 10:13:55 ELECTRIC DRILL OPERATOR CPT-000 Give Immunizations Due 10:13:55 ELECTRIC DRILL OPERATOR CPT-21581 HGBA1C - LAB USE ONLY 09:42:47 ELECTRIC DRILL OPERATOR CPT-16392 TPSA - LAB USE ONLY 09:42:46 ELECTRIC DRILL OPERATOR CPT-69949 Venipuncture Draw Fee 09:42:46 ELECTRIC DRILL OPERATOR CPT-46333 Port a cath flush 13:33:18 ELECTRIC DRILL OPERATOR CPT-33218 First Vx - Ix admin for Medicare patients 10:42:57 ELECTRIC DRILL OPERATOR CPT-69384 Fluzone Preservative Free Intramuscular Suspension 10:42 :57 ELECTRIC DRILL OPERATOR CPT-G0438 Initial Annual Wellness Exam 10:13:55 ELECTRIC DRILL OPERATOR CPT-000 Give Appropriate Flu Vaccine 10:44:04 CDT CPT-000 Give Pneumovax 10:44:03 CDT CPT-62808 Port a cath flush 17:04:43 CDT CPT-86050 Prevnar 13 11:19:17 CDT CPT-91706 Fluzone Quadrivalent preservative free (>=3yrs.) 11:19: 17 CDT CPT-53413 Immunization Each Additional Inj 11:19:17 CDT CPT-45554 Immunization Single Admin 11:19:17 CDT CPT-22910 Port a cath flush 13:28:22 CDT CPT-TCMM Transitional Care Mgmt-Moderate 13:40:15 CDT CPT-G0008 Administration of Influenza Virus Vaccine 13:59:20 CDT CPT-99306 Fluzone High-Dose Intramuscular Suspension 13:59:20 CDT CPT-35215 Venipuncture Draw Fee 09:56:19 CDT CPT-OV Office Visit 15:46:10 CDT
--- OUTSIDE RECORDS SUMMARY | 2017-08-25 21:06 | XMS REPORT | Clinical Summary ---
Author Author Admin, IWONA Organization [employer] Address Unknown Phone Unavailable Allergies, Adverse Reactions, Alerts Allergy Name Reaction Description Start Date Severity Status Provider ERYTHROMYCIN Stomach cramps Moderate Active Prosper Arenas MD CODEINE Critical Active Maliheh Ziglari CAR SWEEPER DARVOCET Critical Active Maliheh Ziglari CAR SWEEPER LEVAQUIN Critical Active Maliheh Ziglari CAR SWEEPER Conditions or Problems Problem Name Problem Code [...] type II, uncontrolled 250.02 Active Maliheh Ziglari CAR SWEEPER Diabetes mellitus 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, type [...] with hyperglycemia 250.00 Active 03/21 Maliheh Ziglari CAR SWEEPER Diabetes mellitus 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, type II or unspecified type, not stated as uncontrolled longterm use of insulin treatment V58.67 Active Luxiheh Rodrigoglari CAR SWEEPER Long-term (current) use of insulin Diabetes mellitus, type II with hypoglycemia 250.80 Active 07/22 Maliheh Ziglari CAR SWEEPER Diabetes mellitus with other specified manifestations, type II or unspecified type, not stated as uncontrolled 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 Maliheh Ziglari CAR SWEEPER Diabetes mellitus with renal manifestations, type II or unspecified type, not stated as uncontrolled Wellness exam V70.0 Active Dee Palmer APRN Routine general medical examination at a health care facility Fitting and adjustment of vascular catheter V58.81 Active 02/06 Dee Palmer APRN Encounter for fitting and adjustment of vascular catheter Unawareness of hypoglycemia in diabetes mellitus, type II 250.80 Active Maliheh Ziglari CAR SWEEPER Diabetes mellitus with other specified manifestations, type II or unspecified type, not stated as uncontrolled Groin pain, right 789.09 Active Prosper Arenas MD Abdominal pain, other specified site; multiple sites Abdominal pain, right upper quadrant ICD-789.01 Inactive [...] treating a low blood. sugar GLUCOSE BLOOD 98404175195 Active Maliheh Ziglari CAR SWEEPER Active NOVOLOG FLEXPEN 100 UNIT/ML SOPN Take 25 units with each meal, add 1u/50 for blood sugars above 150. INSULIN ASPART 12950725626 Active Maliheh Ziglari CAR SWEEPER Active LANTUS SOLOSTAR 100 UNIT/ML SOLN Take 40 units at 7-8pm daily INSULIN GLARGINE 84162572971 Active Maliheh Ziglari CAR SWEEPER Active MECLIZINE HCL 25 MG TABS 1 daily needed for dizziness MECLIZINE HCL 64198060481 No Longer Active Maliheh Ziglari CAR SWEEPER Active BENZONATATE 200 MG CAPS 1 tab, 2-3 times a day BENZONATATE 34240706913 No Longer Active Maliheh Ziglari CAR SWEEPER Active HALOPERIDOL 0.5 MG TABS one tablet three times a day HALOPERIDOL 36603030661 No Longer Active Maliheh Ziglari CAR SWEEPER Active TRAZODONE HCL 50 MG TAB three tablets at bed time TRAZODONE HCL 46476971147 No Longer Active Moy Wallacesania CAR SWEEPER Active REVLIMID 25 MG CAPS one capsule daily for 21 days then off for 7 days 2014 LENALIDOMIDE 60699863874 No Longer Active Moy Ziglari CAR SWEEPER Active ZITHROMAX Z-EDDIE 250 MG TABS 2 today, then 1 daily for 4 days 2014 AZITHROMYCIN 81303609779 No Longer Active Augustina Mata HEAD WORKER Active NOVOLIN R RELION 100 UNIT/ML INJ SOLN 30- 40 units each meal sliding scale INSULIN REGULAR HUMAN 78082862376 No Longer Active Moy Wallacekymari CAR SWEEPER Active LISINOPRIL 5 MG TABS 1 daily LISINOPRIL 99836475467 Active Prosper Arenas MD Active CALCIUM 500/D 500-200 MG-UNIT TABS one tablet daily CALCIUM CARBONATE- VITAMIN D 71688874001 Active Prosper Arenas MD Active HYDROCHLOROTHIAZIDE 25 MG TABS 1 tablet by mouth daily HYDROCHLOROTHIAZIDE 04309328563 Active Prosper Arenas MD Active HYDROCODONE-ACETAMINOPHEN 5-500 MG TABS 1-2 FOUR TIMES A DAY, PRN HYDROCODONE-ACETAMINOPHEN 69513045139 No Longer Active Prosper Arenas MD Active SIMVASTATIN 80 MG TABS 1/2 tablet daily SIMVASTATIN 83769193951 Active Prosper Arenas MD Active METOPROLOL TARTRATE 25 MG TABS 1/2 tablet twice a day METOPROLOL TARTRATE 25349034965 Active Prosper Arenas MD Active ASPIRIN 81 MG TAB 1 tablet by mouth daily ASPIRIN 03336892494 Active Prosper Arenas MD Active OMEPRAZOLE 20 MG CPDR 1 qd OMEPRAZOLE 93030415022 Active DARCIE Miller Active DOXYCYCLINE HYCLATE 100 MG CAPS take one capsule by mouth twice daily for ten days DOXYCYCLINE HYCLATE 02714065219 No Longer Active Mekhi Dukes MD Active DOXYCYCLINE HYCLATE 100 MG CAPS take one capsule by mouth twice daily for ten days DOXYCYCLINE HYCLATE 100 MG CAPS 4679906 DOXYCYCLINE HYCLATE Inactive HYDROCODONE-ACETAMINOPHEN 5-500 MG TABS [...] days 2014 ZITHROMAX Z-EDDIE 250 MG TABS 0481895 AZITHROMYCIN Inactive REVLIMID 25 MG CAPS one capsule daily for 21 days then off for 7 days 2014 REVLIMID 25 MG CAPS LENALIDOMIDE Inactive TRAZODONE HCL 50 MG TAB three tablets at bed time TRAZODONE HCL 50 MG TAB 295516 TRAZODONE HCL Inactive HALOPERIDOL 0.5 MG TABS one tablet three times a day HALOPERIDOL 0.5 MG TABS 299599 HALOPERIDOL Inactive BENZONATATE 200 MG CAPS 1 tab, 2-3 times a day BENZONATATE 200 MG CAPS 938559 BENZONATATE Inactive MECLIZINE HCL 25 MG TABS 1 daily needed for dizziness MECLIZINE HCL 25 MG TABS 579585 MECLIZINE HCL Inactive Immunizations Vaccine Administration Date [...] LAB - Chemistry cholesterol, serum 156 mg/dL 152-667 1099/02/20 HDL cholesterol, serum 52 mg/dL > OR=40 [...] mg/dL Encounters Code Encounter Date Provider Facility CPT-05286 Level 3 New Patient 15:44:53 RECREATION ASSISTANT Mekhi Dukes MD [facility]-97854 Level 3 Est. Patient 14:53:34 RECREATION ASSISTANT Prosper Arenas MD [facility]-22866 Level 4 Est. Patient 10:05:41 RECREATION ASSISTANT Luxcarissashoaib Jose [facility]-97600 Level 3 Est. Patient 11:18:32 CDT Moy Bradshawari [facility]-31797 Level 4 Est. Patient 11:05:10 CDT Moy Leeannari [facility]-97174 Level 3 Est. Patient 11:08:27 RECREATION ASSISTANT Luxcarissashoaib Jose [facility]-32322 Level 4 Est. Patient 10:43:59 CDT Prosper Arenas MD [facility]-44832 Level 3 Est. Patient 10:51:19 CDT Moy Garcia [facility] CPT-12749 Level 3 Est. Patient 10:20:31 CDT Moy Bradshawari [facility]-65919 Level 3 Est. Patient 17:08:45 CDT Moy Jose [facility] CPT-08960 Level 2 Est. Patient 13:54:36 CDT Augustina Mata APRN [facility]-58912 Level 3 Est. Patient 12:00:42 CDT Prosper Arenas MD [facility]-31098 Level 3 Est. Patient 09:57:28 RECREATION ASSISTANT Luxcarissashoaib Jose [facility]-48645 Level 3 Est. Patient 11:41:19 RECREATION ASSISTANT Luxcarissashoaib Jose [facility]-64493 Level 4 Est. Patient 17:07:35 RECREATION ASSISTANT Moy Garcia [facility] CPT-57605 Level 5 Est. Patient 14:33:32 CDT Moy Garcia [facility] CPT-03961 Level 3 Est. Patient 12:25:35 CDT Prosper Arenas MD [facility] Procedures Code Procedure Name Date Entry Date Standard Description CPT-000 Give Appropriate Flu Vaccine 10:13:55 RECREATION ASSISTANT CPT-000 Give Immunizations Due 10:13:55 RECREATION ASSISTANT CPT-25439 HGBA1C - LAB USE ONLY 09:42:47 RECREATION ASSISTANT CPT-89974 TPSA - LAB USE ONLY 09:42:46 RECREATION ASSISTANT CPT-44550 Venipuncture Draw Fee 09:42:46 RECREATION ASSISTANT CPT-64314 Port a cath flush 13:33:18 RECREATION ASSISTANT CPT-07242 First Vx - Ix admin for Medicare patients 10:42:57 RECREATION ASSISTANT CPT-94934 Fluzone Preservative Free Intramuscular Suspension 10:42 :57 RECREATION ASSISTANT CPT-G0438 Initial Annual Wellness Exam 10:13:55 RECREATION ASSISTANT CPT-000 Give Appropriate Flu Vaccine 10:44:04 CDT CPT-000 Give Pneumovax 10:44:03 CDT CPT-25396 Port a cath flush 17:04:43 CDT CPT-59232 Prevnar 13 11:19:17 CDT CPT-06322 Fluzone Quadrivalent preservative free (>=3yrs.) 11:19: 17 CDT CPT-55751 Immunization Each Additional Inj 11:19:17 CDT CPT-32362 Immunization Single Admin 11:19:17 CDT CPT-72684 Port a cath flush 13:28:22 CDT CPT-TCMM Transitional Care Mgmt-Moderate 13:40:15 CDT CPT-G0008 Administration of Influenza Virus Vaccine 13:59:20 CDT CPT-22125 Fluzone High-Dose Intramuscular Suspension 13:59:20 CDT CPT-34297 Venipuncture Draw Fee 09:56:19 CDT CPT-OV Office Visit 15:46:10 CDT
--- OUTSIDE RECORDS SUMMARY | 2017-08-25 21:06 | XMS REPORT ---
Author Author [facility] Medical Staff Organization [facility] Address [address] [id number] Phone [phone] Care Team Providers Care Hide Salter Name Role Phone YOMI RAMESH MD PP [phone] YOMI RAMESH MD, PP [phone] Summary purpose TRANSITION OF CARE AUTO GENERATION Chief Complaint and Reason for Visit Admit Diagnosis 1 ALLERGIC REACTION Problem list No authorized problems tracked for continuity of care are available for this visit. Encounters No authorized problems tracked for encounter diagnoses are available for this visit. Medications Discharge Medications Status Medication Directions Current Baby Aspirin 81 mg chewable tablet 1 tab(s) oral Daily Current Calcium 500 + D 500 mg (1,250 mg)-200 unit tablet 1 tab(s) oral Twice a day Current Claritin 10 mg tablet 1 tab oral Daily take for allergic reaction Current hydrochlorothiazide 25 mg tablet 1 tab(s) oral Daily Current Lantus 100 unit/mL Sub-Q 40 unit(s) subcutaneous Bedtime daily Current metoprolol tartrate 25 mg tablet 0.5 tab(s) oral Twice a day Current Novolog 100 unit/mL subcutaneous solution 20 unit(s) subcutaneous 3 xDaily 12-11-20 Current omeprazole 20 mg capsule,delayed release 1 capsule(s) oral Daily Current Pepcid AC 20 mg tablet 1 tab oral Daily Current potassium chloride ER 20 mEq tablet,extended release 1 tab(s) oral Daily Current prednisone 20 mg tablet 1 tab oral Daily take 3 tabs daily X3 days, 2 tabs daily X3 days, 1 tab daily X3 days, 1/2 tab daily X3 days Current sildenafil 50 mg tablet 1 tab(s) oral As Needed for ED Current simvastatin 80 mg tablet 0.5 tab(s) oral Bedtime daily Current trazodone 50 mg tablet 1 tab(s) oral Bedtime daily Allergies, adverse reactions, alerts Allergen Category Ingredient [...] Relevant diagnostic tests and/or laboratory data RESULTS 67-34-346143:44:00 Progress Note PROGRESS NOTE 01/05/2015 08:44:59 S: Patient came in yesterday with allergic reaction. He is still unable to determine anything new that he may have been exposed to.He reports that with the combination of medicines we have given him that he is doing a much better. He still has some itching but not as bad. He has eaten this morning. He denies any trouble breathing, any throat closing or any other swelling, and feels ready to go home. O: VITAL SIGNS: Temperature 98.2, pulse 87, blood pressure 115/73, respiratory rate 18 and oxygen saturation is 97% on room air. GENERAL: The patient is alert and oriented in no acute distress, sitting up in bed eating breakfast. CARDIOVASCULAR:Regular rate and rhythm. LUNGS: Clear. ABDOMEN:Soft, nontender, nondistended. Positive bowel sounds. EXTREMITIES:The patient has some dry skin on the extremities, no obvious hives, swelling, or red areas noted. LABORATORY DATA:Sodium of 138, potassium 3.7, chloride 102, bicarbonate 29, BUN 21 and a creatinine of 1.93. AST 72, ALT 140, alkaline phosphatase 80, liver enzymes are improving. White count is up to 13.1 from 5 yesterday. I think this is due to steroid effect though. Hemoglobin 14 and the platelet count is 171. A: 1.Acute allergic reaction of unknown etiology with pruritus and swelling. 2.Elevated liver enzymes. P: 1.The patient is a better. We will plan to discharge him to home today. 2.We will send him home with oral prednisone as well as have him continue with the Claritin and Pepcid as an outpatient. 3.Will have him follow up with Dr. Ramesh in about the next 10 days. MD CHRISTOFER Dawson/db 01/05/2015 08:44:59/01/05/2015 11:15:35 Clinic Code: cc: [facility] [address] [place], [place] [address]<END HEADER> Chemistry [id number]:40:00 Result Normal Range Units Sodium 138 134-145 mEq/l Potassium 3.7 3.5-5.1 mEq/l Chloride 102 98-107 mEq/l CO2 H 29.2 22-28 mEq/l Glucose H 232 70-105 mg/dl BUN H 21 7-18 mg/dl Creatinine H 1.93 0.6-1.3 mg/dl Calcium 8.4 8.4-10.2 mg/dl TP - Total Protein 6.3 6.0-8.3 g/dl Albumin L 2.8 3.5-5 g/dl Bilirubin - Total 0.4 0.1-1.0 mg/dl AST H 72 10-42 IU/L ALT H 140 12-65 IU/L ALP 80 39-107 IU/L Osmolality 286.1 280-300 mOsm/L Albumin/Globulin Ratio 0.8 0-8 Anion GAP L 6.8 8-16 BUN/Creatinine Ratio 10.9 10-20 Estimated GFR L 43 >=60 mL/min/1.7 08-73-758113:30:00 Result Normal Range Units Sodium 140 134-145 mEq/l Potassium L 3.2 3.5-5.1 mEq/l Chloride 102 98-107 mEq/l CO2 H 29.2 22-28 mEq/l Glucose H 146 70-105 mg/dl BUN 18 7-18 mg/dl Creatinine H 1.91 0.6-1.3 mg/dl Calcium L 8.1 8.4-10.2 mg/dl TP - Total Protein 6.5 6.0-8.3 g/dl Albumin L 3.1 3.5-5 g/dl Bilirubin - Total 0.6 0.1-1.0 mg/dl AST H 114 10-42 IU/L ALT H 168 12-65 IU/L ALP 106 39-107 IU/L Osmolality 283.9 280-300 mOsm/L Albumin/Globulin Ratio 0.9 0-8 Anion GAP 8.8 8-16 BUN/Creatinine Ratio L 9.4 10-20 Estimated GFR L 43 >=60 mL/min/1.7 Hematology :40:00 Result Normal Range Units WBC H 13.1 4.8-10.8 103/uL RBC L 4.3 4.7-6.1 106/uL HGB 14.0 13.0-18.0 g/dl HCT L 40.3 41.9-52.0 % MCV 93.3 80-94 FL MCH H 32.4 27-31 pg MCHC 34.7 33-37 g/dl RDW 11.8 11.5-15.5 % PLT 171 130-400 103/uL MPV H 11.0 7.3-10.4 FL Neutro % H 87.1 40-70 % Lymph % L 9.5 20-40 % [place] % 2.5 0-10.0 % Eos % 0.0 0-7.0 % Baso % 0.1 0-2 % Neutro # H 11.4 1.5-7.5 103/uL Lymph # 1.2 0.9-4.0 103/uL [place] # 0.3 0-0.8 103/uL Eos # 0.0 0-0.6 103/uL Baso # 0.0 0-0.1 103/uL :30:00 Result Normal Range Units WBC 5.5 4.8-10.8 103/uL RBC L 4.6 4.7-6.1 106/uL HGB 14.8 13.0-18.0 g/dl HCT 42.7 41.9-52.0 % MCV 92.6 80-94 FL MCH H 32.1 27-31 pg MCHC 34.7 33-37 g/dl RDW 12.1 11.5-15.5 % PLT 172 130-400 103/uL MPV H 10.9 7.3-10.4 FL Segs 59.0 40-70 % Lymphs L 16.0 20-40 % [place] 9.0 0-10 % Eos H 15.0 0-7 % Baso 1.0 0-2 % Radiology Results :40:00 Result Normal Range Units MPV H 11.0 7.3-10.4 FL :30:00 Result Normal Range Units MPV H 10.9 7.3-10.4 FL History of procedures No procedures recorded for this patient visit. Functional status Functional Status Finding Observation Time Hearing Prob Loc none :02 Vision Problems yes :02 Vision Correct Dev glasses :02 Ambulation Asst Dev none :02 Range of Motion full :07 Muscle Strength RUE 5 ROM full resist :07 Muscle Strength RLE 5 ROM full resist :07 Muscle Strength LUE 5 ROM full resist :07 Muscle Strength LLE 5 ROM full resist :07 Transfers independent :07 Ambulation in room :07 Balance steady :07 Bathing Assistance none :02 Eating Assistance none :02 Dressing Assistance none :02 Toileting Assistance none :02 Transfer Assistance none :02 Decline Slf Care/Mob no :02 Phys Cond Stable yes :02 Nutrition normal :07 Diet ADA specify calorie 33-44-117082:07 Oral Cavity moist and intact 06-26-380841:07 Teeth intact 57-46-479925:07 Dental Hygiene good 78-39-190111:07 Abdomen Appearance round 94-40-367632:07 Abdomen soft 61-89-640120:07 Bowel Sounds present 74-89-871164:07 NG Tube no 93-32-306954:07 Feeding Tube none 63-23-843588:07 Egan no 94-66-075743:07 Cont Bladder Irr no 53-93-145395:07 Ostomy no 40-91-334467:07 Stool normal 09-47-576463:07 Urination normal 40-18-265102:07 Urine Clarity clear 94-67-431491:07 Urine Color straw 20-23-895686:07 Quality sym/unlabored 30-31-492259:07 Cough absent :07 Secretions no :07 Breath Sounds RUL clear :07 Breath Sounds RML clear :07 Breath Sounds RLL clear :07 Breath Sounds DAJUAN clear :07 Breath Sounds LLL clear 80-38-992474:07 Airway natural :07 Chest Tube no :07 Oxygen no :12 Oxygen Flow Rate RA :12 C-PAP no :07 BI-PAP no :07 Temp >100.4 no : Temp <96.8 no :07 Chills with rigors no :07 HR > 90bpm no :07 Respirations > 20 no :07 Systolic <90 no :07 headache stiff neck no :07 WBC > 80201 no :07 WBC < 4000 no :07 Rapid Resp no :07 VAD Type ashwin-cath :55 VAD Location L chest :55 VAD Site Info discontinued :55 VAD Site Appearance WNL :06 VAD Site Color clear :06 VAD Site Patent yes :06 VAD Dressing Changed yes :06 VAD Dressing Type occlusive :06 Nursing Note pt amb off unit to amb home in good condition with belongings in hand. 46-17-478108:00 Cognitive Status Finding Observation Time Oriented To Date 5 Yes :[address] 5 Yes :02 Name 3 Objects 3 Yes :02 Name Object in Rm 2 Yes :02 Recall 3 Objects 3 Yes :02 Repeats a Phrase 1 Yes :02 Follows Verbal Direc 3 Yes :02 Follows Written Dire 1 Yes :02 Write a Sentance 1 Yes :02 Draw an Object 1 Yes :02 Mini Mental Total 25 points :02 Learning Ability comprehends well :10 Neurological no :10 Psychological no :10 Physical no :10 Hearing no :10 Project Product Manager Needed no :10 Sign Language no :10 Emotional no :10 Vision yes :10 Laguage no :10 Financial no :10 Vital signs Type Value Date Respiration Rate 18breaths per minute :12 Pulse 87beats per minute :12 Oxygen Saturation 97% :12 BP Systolic 115mmHg :12 BP Diastolic 73mmHg :12 Temperature 98.2F :12 Height 66inches :58 Weight 183LB :58 Social history Type Value Smoking Status FORMER SMOKER Treatment Plan No treatment plan text is available for this visit. Hospital discharge instructions Discharge Date/Time 01/05/15 1000 Accompanied By self Dismissal Condition good Disposition on DC home Valuables yes Valuable Type cell phone Valuables Returned T patient DC Inst/Educ Give yes Exit Care Educ Given yes Med/Side Effects Rev yes DC Med Rec Rev yes Immun Indicated no PNE Vac 2007 Flu Vac 2013 Tetanus Vac 2006 Diet Explained yes Follow up appt appt made (specify) Follow Up Appt D/T 01/19/15
--- OUTSIDE RECORDS SUMMARY | 2017-08-25 21:07 | XMS REPORT | Clinical Summary ---
Author Author Admin, [facility] Organization [employer] Address Unknown Phone Unavailable Allergies, Adverse Reactions, Alerts Allergy Name Reaction Description Start Date Severity Status Provider ERYTHROMYCIN Stomach cramps Moderate Active Prosper Arenas MD CODEINE Critical Active Maliheh Ziglari CERAMIC MAKER DEMONSTRATOR DARVOCET Critical Active Maliheh Ziglari CERAMIC MAKER DEMONSTRATOR LEVAQUIN Critical Active Maliheh Ziglari CERAMIC MAKER DEMONSTRATOR Conditions or Problems Problem Name Problem Code Onset Date Status Entry Date Provider Comment Standard Description Annotate Diabetes, Type 2 250.00 Resolved Tami Miller hide examiner mellitus 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, type II [...] type II, uncontrolled 250.02 Active Maliheh Rodrigoglari CERAMIC MAKER DEMONSTRATOR Diabetes mellitus 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, type [...] with hyperglycemia 250.00 Active 03/21 Maliheh Ziglari CERAMIC MAKER DEMONSTRATOR Diabetes mellitus 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, type II or unspecified type, not stated as uncontrolled [facility] use of insulin treatment V58.67 Active Luxiheh Rodrigoglari CERAMIC MAKER DEMONSTRATOR Long-term (current) use of insulin Diabetes mellitus, type II with hypoglycemia 250.80 Active 07/22 Maliheh Ziglari CERAMIC MAKER DEMONSTRATOR Diabetes mellitus with other specified manifestations, type II or unspecified type, not stated as uncontrolled 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 Maliheh Ziglari CERAMIC MAKER DEMONSTRATOR Diabetes mellitus with renal manifestations, type II or unspecified type, not stated as uncontrolled Wellness exam V70.0 Active Dee Palmer APRN Routine general medical examination at a health care facility Fitting and adjustment of vascular catheter V58.81 Active 02/06 Dee Palmer APRN Encounter for fitting and adjustment of vascular catheter Unawareness of hypoglycemia in diabetes mellitus, type II 250.80 Active Maliheh Ziglari CERAMIC MAKER DEMONSTRATOR Diabetes mellitus with other specified manifestations, type [...] specified as recurrent) Gastritis Active Maliheh Ziglari CERAMIC MAKER DEMONSTRATOR Unspecified gastritis and gastroduodenitis, 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 [...] 1-2 every 4-6 hrs prn 02/25 HYDROCODONE-ACETAMINOPHEN 89040677465 Active Marina Messina APRN Active ASPIRIN 81 MG ORAL TABLET 1 tablet by mouth daily ASPIRIN 05732868443 No Longer Active Marina Messina APRN Active SIMVASTATIN 80 MG ORAL TABLET 1/2 tablet daily SIMVASTATIN 11809279527 No Longer Active Mekhi Dukes MD Active OMEPRAZOLE 20 MG ORAL CAPSULE DELAYED RELEASE 1 qd OMEPRAZOLE 58590613840 No Longer Active Mekhi Dukes MD Active METOPROLOL TARTRATE 25 MG ORAL TABLET 1/2 tablet twice a day METOPROLOL TARTRATE 93621434063 No Longer Active Mekhi Dukes MD Active LISINOPRIL 5 MG ORAL TABLET 1 daily LISINOPRIL 27754805323 No Longer Active Mekhi Dukes MD Active NOVOLOG FLEXPEN 100 UNIT/ML SUBCUTANEOUS SOLUTION PEN-INJECTOR Take 8 units with each meal, add 1u/50 for blood sugars above 150. INSULIN ASPART 81149402018 Active Malpapo DURANTP Active GABAPENTIN 300 MG ORAL CAPSULE 1 tab BID GABAPENTIN 25190334938 Active Tami Miller RN Active PREDNISONE 20 MG ORAL TABLET Take 2 daily for 3 days and then 1 daily for 3 days PREDNISONE 85844668456 No Longer Active Maliheh Ziglari CERAMIC MAKER DEMONSTRATOR Active BENZONATATE 200 MG ORAL CAPSULE Take 1 tablet 3 times a day as needed for cough BENZONATATE 36511403238 No Longer Active Prosper Arenas MD Active HYDROCHLOROTHIAZIDE 25 MG ORAL TABLET 1 tablet by mouth daily HYDROCHLOROTHIAZIDE 87732638474 No Longer Active Prosper Arenas MD Active ACCU-CHEK JOANNA PLUS IN VITRO STRIP check blood sugars 5x a day, before each meal and bedtime and 15 minutes after treating a low blood. sugar GLUCOSE BLOOD 17315727931 Active Maliheh Ziglari CERAMIC MAKER DEMONSTRATOR Active LANTUS SOLOSTAR 100 UNIT/ML SUBCUTANEOUS SOLUTION PEN-INJECTOR Take 40 units at 7-8pm daily INSULIN GLARGINE 76776937542 Active Maliheh Ziglari CERAMIC MAKER DEMONSTRATOR Active MECLIZINE HCL 25 MG ORAL TABLET 1 daily needed for dizziness 2015 MECLIZINE HCL 90945945201 No Longer Active Maliheh Ziglari CERAMIC MAKER DEMONSTRATOR Active BENZONATATE 200 MG ORAL CAPSULE 1 tab, 2-3 times a day BENZONATATE 20148699415 No Longer Active Maliheh Ziglari CERAMIC MAKER DEMONSTRATOR Active HALOPERIDOL 0.5 MG ORAL TABLET one tablet three times a day HALOPERIDOL 30699587370 No Longer Active Maliheh Ziglari CERAMIC MAKER DEMONSTRATOR Active TRAZODONE HCL 50 MG ORAL TABLET three tablets at bed time TRAZODONE HCL 71046176622 No Longer Active Maliheh Ziglari CERAMIC MAKER DEMONSTRATOR Active REVLIMID 25 MG ORAL CAPSULE one capsule daily for 21 days then off for 7 days LENALIDOMIDE 81054164907 No Longer Active Maliheh Ziglari CERAMIC MAKER DEMONSTRATOR Active ZITHROMAX Z-EDDIE 250 MG ORAL TABLET 2 today, then 1 daily for 4 days AZITHROMYCIN 34140097154 No Longer Active Augustina Mata APRN Active NOVOLIN R RELION 100 UNIT/ML INJECTION SOLUTION 30- 40 units each meal sliding scale INSULIN REGULAR HUMAN 09722969591 No Longer Active Maliheh Ziglari CERAMIC MAKER DEMONSTRATOR Active CALCIUM 500/D 500-200 MG-UNIT ORAL TABLET one tablet daily CALCIUM CARBONATE-VITAMIN D 09638338839 Active Prosper Arenas MD Active HYDROCODONE-ACETAMINOPHEN 5-500 MG ORAL TABLET 1-2 FOUR TIMES A DAY, PRN 2010 HYDROCODONE-ACETAMINOPHEN 60917492397 No Longer Active Prosper Arenas MD Active DOXYCYCLINE HYCLATE 100 MG ORAL CAPSULE take one capsule by mouth twice daily for ten days DOXYCYCLINE HYCLATE 87641940190 No Longer Active Mekhi Dukes MD Active DOXYCYCLINE HYCLATE 100 MG ORAL CAPSULE take one capsule by mouth twice daily for ten days DOXYCYCLINE HYCLATE 100 MG ORAL CAPSULE 4600547 DOXYCYCLINE HYCLATE Inactive HYDROCODONE-ACETAMINOPHEN 5-500 MG ORAL TABLET 1-2 FOUR TIMES A DAY, PRN 2010 HYDROCODONE-ACETAMINOPHEN 5-500 MG ORAL TABLET 096599 HYDROCODONE-ACETAMINOPHEN Inactive NOVOLIN R RELION 100 UNIT/ML INJECTION SOLUTION 30- 40 units each meal sliding scale NOVOLIN R RELION 100 UNIT/ML INJECTION SOLUTION INSULIN REGULAR HUMAN Inactive ZITHROMAX Z-EDDIE 250 MG ORAL TABLET 2 today, then 1 daily for 4 days ZITHROMAX Z-EDDIE 250 MG ORAL TABLET 058562 AZITHROMYCIN Inactive REVLIMID 25 MG ORAL CAPSULE one capsule daily for 21 days then off for 7 days REVLIMID 25 MG ORAL CAPSULE LENALIDOMIDE Inactive TRAZODONE HCL 50 MG ORAL TABLET three tablets at bed time TRAZODONE HCL 50 MG ORAL TABLET 531249 TRAZODONE HCL Inactive HALOPERIDOL 0.5 MG ORAL TABLET one tablet three times a day HALOPERIDOL 0.5 MG ORAL TABLET 145687 HALOPERIDOL Inactive BENZONATATE 200 MG ORAL CAPSULE 1 tab, 2-3 times a day BENZONATATE 200 MG ORAL CAPSULE 243008 BENZONATATE Inactive MECLIZINE HCL 25 MG ORAL TABLET 1 daily needed for dizziness 2015 MECLIZINE HCL 25 MG ORAL TABLET 731002 MECLIZINE HCL Inactive HYDROCHLOROTHIAZIDE 25 MG ORAL TABLET 1 tablet by mouth daily HYDROCHLOROTHIAZIDE 25 MG ORAL TABLET 251125 HYDROCHLOROTHIAZIDE Inactive PREDNISONE 20 MG ORAL TABLET Take 2 daily for 3 days and then 1 daily for 3 days PREDNISONE 20 MG ORAL TABLET 073099 PREDNISONE Inactive LISINOPRIL 5 MG ORAL TABLET 1 daily LISINOPRIL 5 MG ORAL TABLET 738661 LISINOPRIL Inactive METOPROLOL TARTRATE 25 MG ORAL TABLET 1/2 tablet twice a day METOPROLOL TARTRATE 25 MG ORAL TABLET 063020 METOPROLOL TARTRATE Inactive OMEPRAZOLE 20 MG ORAL CAPSULE DELAYED RELEASE 1 qd OMEPRAZOLE 20 MG ORAL CAPSULE DELAYED RELEASE 724524 OMEPRAZOLE Inactive SIMVASTATIN 80 MG ORAL TABLET 1/2 tablet daily SIMVASTATIN 80 MG ORAL TABLET 842650 SIMVASTATIN Inactive ASPIRIN 81 MG ORAL TABLET 1 tablet by mouth daily ASPIRIN 81 MG ORAL TABLET 243493 ASPIRIN Inactive BENZONATATE 200 MG ORAL CAPSULE Take 1 tablet 3 times a day as needed for cough BENZONATATE 200 MG ORAL CAPSULE 643040 BENZONATATE Inactive Immunizations Vaccine Administration Date Value [...] W/DIFF - Chemistry sodium, serum 137 mmol/L 475-694 5920/08/16 carbon dioxide, venous blood 26.3 mmol/L 21.0-32.0 [...] LABS - Chemistry cholesterol, serum 115 mg/dL 494-653 0211/08/18 triglyceride, serum, fasting 89 mg/dL 30-200 HDL cholesterol, serum 46 mg/dL 32-60 LDL cholesterol, serum 51 mg/dL 0-130 blood glucose 104 mg/dL 65-110 Lab Report: LIPID PANEL- REPOWER LAB - Chemistry cholesterol, serum 156 mg/dL 325-659 1977[birth year] HDL cholesterol, serum 52 mg/dL > OR=40 [...] mg/dL Encounters Code Encounter Date Provider Facility CPT-88092 Level 3 Est. Patient 10:53:32 REGIONAL PROJECT MANAGER [facility] CPT-04635 Level 3 Est. Patient 17:11:55 REGIONAL PROJECT MANAGER Ismael Gracia MD [facility] CPT-33322 Level 4 Est. Patient 16:29:19 CDT Mekhi Dukes MD [facility] CPT-57333 Level 3 New Patient 17:05:24 CDT Ismael Gracia MD [facility] CPT-51509 Level 2 Est. Patient 15:43:17 CDT Mekhi Dukes MD [facility] CPT-49637 Level 3 Est. Patient 09:30:37 CDT [facility] CPT-28935 Level 3 Est. Patient 10:00:14 CDT Mekhi Dukes MD [facility] CPT-74268 Level 3 Est. Patient 12:24:09 CDT Moy Garcia [facility] CPT-26086 Level 3 Est. Patient 14:34:57 CDT Prosper Arenas MD [facility] CPT-53624 Level 3 New Patient 15:44:53 REGIONAL PROJECT MANAGER Mekhi Dukes MD [facility] CPT-31135 Level 3 Est. Patient 14:53:34 REGIONAL PROJECT MANAGER Prosper Arenas MD [facility] CPT-88143 Level 4 Est. Patient 10:05:41 REGIONAL PROJECT MANAGER Moy [facility] CPT-80204 Level 3 Est. Patient 11:18:32 [facility] Level 4 Est. Patient 11:05:10 CDT Moy Garcia [facility] CPT-28701 Level 3 Est. Patient 11:08:27 REGIONAL PROJECT MANAGER Moy Garcia [facility] CPT-33773 Level 4 Est. Patient 10:43:59 CDT Prosper Arenas MD [facility] CPT-81192 Level 3 Est. Patient 10:51:19 CDT Moy Garcia [facility] CPT-20934 Level 3 Est. Patient 10:20:31 CDT Moy Garcia [facility] CPT-59162 Level 3 Est. Patient 17:08:45 CDT Moy Garcia [facility] CPT-12909 Level 2 Est. Patient 13:54:36 CDT Augustina Mata APRN [facility] CPT-69838 Level 3 Est. Patient 12:00:42 CDT Prosper Arenas MD [facility] [place]-62012 Level 3 Est. Patient 09:57:28 REGIONAL PROJECT MANAGER [facility] CPT-99457 Level 3 Est. Patient 11:41:19 REGIONAL PROJECT MANAGER [facility] CPT-00355 Level 4 Est. Patient 17:07:35 REGIONAL PROJECT MANAGER [facility] CPT-23955 Level 5 Est. Patient 14:33:32 CDT [facility] CPT-81387 Level 3 Est. Patient 12:25:35 CDT Prosper Arenas MD [facility] Procedures Code Procedure Name Date Entry Date Standard Description CPT-54911 Postop F/U Visit 17:20:20 REGIONAL PROJECT MANAGER CPT-G0439 Subsequent Annual Wellness Exam 08:39:41 REGIONAL PROJECT MANAGER CPT-000 Give Appropriate Flu Vaccine 10:13:55 REGIONAL PROJECT MANAGER CPT-000 Give Immunizations Due 10:13:55 REGIONAL PROJECT MANAGER CPT-36599 HGBA1C - LAB USE ONLY 09:42:47 REGIONAL PROJECT MANAGER CPT-10439 TPSA - LAB USE ONLY 09:42:46 REGIONAL PROJECT MANAGER CPT-42572 Venipuncture Draw Fee 09:42:46 REGIONAL PROJECT MANAGER CPT-50032 Port a cath flush 13:33:18 REGIONAL PROJECT MANAGER CPT-41636 First Vx - Ix admin for Medicare patients 10:42:57 REGIONAL PROJECT MANAGER CPT-77798 Fluzone Preservative Free Intramuscular Suspension 10:42 :57 REGIONAL PROJECT MANAGER CPT-G0438 Initial Annual Wellness Exam 10:13:55 REGIONAL PROJECT MANAGER CPT-000 Give Appropriate Flu Vaccine 10:44:04 CDT CPT-000 Give Pneumovax 10:44:03 CDT CPT-60786 Port a cath flush 17:04:43 CDT CPT-41489 Prevnar 13 11:19:17 CDT CPT-64941 Fluzone Quadrivalent preservative free (>=3yrs.) 11:19: 17 CDT CPT-52046 Immunization Each Additional Inj 11:19:17 CDT CPT-28516 Immunization Single Admin 11:19:17 CDT CPT-79007 Port a cath flush 13:28:22 CDT CPT-TCMM Transitional Care Mgmt-Moderate 13:40:15 CDT CPT-G0008 Administration of Influenza Virus Vaccine 13:59:20 CDT CPT-82296 Fluzone High-Dose Intramuscular Suspension 13:59:20 CDT CPT-41370 Venipuncture Draw Fee 09:56:19 CDT CPT-OV Office Visit 15:46:10 CDT
--- OUTSIDE RECORDS SUMMARY | 2017-08-25 21:08 | XMS REPORT | Clinical Summary ---
Author Author Admin, [place] Organization [facility] Address Unknown Phone Unavailable Allergies, Adverse Reactions, Alerts Allergy Name Reaction Description Start Date Severity Status Provider ERYTHROMYCIN Stomach cramps Moderate Active Prosper Arenas MD CODEINE Critical Active Maliheh Ziglari [employer] DARVOCET Critical Active Maliheh Ziglari [employer] LEVAQUIN Critical Active Maliheh Ziglari [employer] Conditions or Problems Problem Name Problem Code Onset Date Status Entry Date Provider Comment Standard Description Annotate Diabetes, Type 2 250.00 Active Mekhi Dukes MD Diabetes mellitus 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, type II or unspecified type, not stated as uncontrolled Hyperlipidemia 272.4 Active eMkhi Dukes MD Other and unspecified hyperlipidemia Hypertension [...] type II, uncontrolled 250.02 Active Maliheh Ziglari [employer] Diabetes mellitus 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, type II or unspecified type, uncontrolled Chest pain, atypical 786.59 Active Prosper Arenas MD Other chest pain Bronchitis 490 Active Prosper Arenas MD Bronchitis, not specified as acute or chronic Multiple myeloma 203.00 Active Gena Montoya RMA Multiple myeloma 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 having achieved remission Hypercalcemia 275.42 Active Gena Faux RMA Hypercalcemia Cough 786.2 Active Augustina Adolfo DOHERTY Cough Medication List Medication Instructions Start Date Stop Date Generic Name NDC Status Provider Patient Instruction ZITHROMAX Z-EDDIE 250 MG TABS 2 today, then 1 daily for 4 days 2014 AZITHROMYCIN 26401447690 No Longer Active Augustina Rangelann MARIEN Active BENZONATATE 200 MG CAPS 1 tab, 2-3 times a day BENZONATATE 60749742153 Active Prosper Arenas MD Active NOVOLOG FLEXPEN 100 UNIT/ML SOPN Take 10 units with each meal, add 2u/50 for blood sugars above 150 INSULIN ASPART 33652513781 Active Malpapo Ziglari 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 LANTUS SOLOSTAR 100 UNIT/ML SOLN 30 units at 4-5pm daily INSULIN GLARGINE 39880691280 Active Maliheh Ziglari 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 NOVOLIN R RELION 100 UNIT/ML INJ SOLN 30- 40 units each meal sliding scale INSULIN REGULAR HUMAN 94089561762 No Longer Active Malcarissashoaib Wallaceglari [employer] 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 LISINOPRIL 5 MG TABS 1 daily LISINOPRIL 49657268660 Active Prosper Arenas MD Active CALCIUM 500/D 500-200 MG-UNIT TABS one tablet daily CALCIUM CARBONATE- VITAMIN D 18437468602 Active Prosper Arenas MD Active REVLIMID 25 MG CAPS one capsule daily for 21 days then off for 7 days LENALIDOMIDE 90485615539 Active Prosper Arenas MD Active HYDROCHLOROTHIAZIDE 25 MG TABS 1 tablet by mouth daily HYDROCHLOROTHIAZIDE 32315845499 Active Prosper Arenas MD Active HYDROCODONE-ACETAMINOPHEN 5-500 MG TABS 1-2 FOUR TIMES A DAY, PRN HYDROCODONE-ACETAMINOPHEN 31064522489 No Longer Active Prosper Arenas MD Active TRAZODONE HCL 50 MG TAB three tablets at bed time TRAZODONE HCL 65800563897 Active Prosper Arenas MD Active SIMVASTATIN 80 MG TABS 1/2 tablet daily SIMVASTATIN 75569009006 Active Prosper Arenas MD Active METOPROLOL TARTRATE 25 MG TABS 1/2 tablet twice a day METOPROLOL TARTRATE 24233693156 Active Prosper Arenas MD Active HALOPERIDOL 0.5 MG TABS one tablet three times a day HALOPERIDOL 26132851631 Active Prosper Arenas MD Active ASPIRIN 81 MG TAB 1 tablet by mouth daily ASPIRIN 30474334188 Active Prosper Arenas MD Active OMEPRAZOLE 20 MG CPDR 1 qd OMEPRAZOLE 28572846530 Active DARCIE Miller Active DOXYCYCLINE HYCLATE 100 MG CAPS take one capsule by mouth twice daily for ten days DOXYCYCLINE HYCLATE 46504361873 No Longer Active Mekhi Dukes MD Active DOXYCYCLINE HYCLATE 100 MG CAPS take one capsule by mouth twice daily for ten days DOXYCYCLINE HYCLATE 100 MG CAPS 717602 DOXYCYCLINE HYCLATE Inactive HYDROCODONE-ACETAMINOPHEN 5-500 MG TABS [...] days 2014 ZITHROMAX Z-EDDIE 250 MG TABS [id number] AZITHROMYCIN Inactive Immunizations Vaccine Administration Date Value Standard Description influenza immunization (Flu Vax) has been administered 01/09/2014 influenza virus vaccine, unspecified formulation Vital Signs Date Name Value Unit Range Description blood pressure, diastolic - 8462-4 76 mm[Hg] [...] Description Chart Maintenance: Outside labs entered on [facility] - Chemistry sodium, serum 134 mmol/L potassium, serum 3.4 mmol/L blood glucose 268 mg/dL creatinine, serum 1.87 mg/dL aspartate aminotransferase (SGOT), serum 26 U/L alanine aminotransferase (SGPT), serum 44 U/L alkaline phosphatase, serum 110 U/L Chart Maintenance: Outside labs entered on [facility] - Hematology leukocyte count, blood 5.3 10*3/mm3 hemoglobin, blood 14.0 g/dL platelet count 240 10*3/mm3 Lab Report: Basic Metabolic Panel - Chemistry sodium, serum 137 mmol/L 687-820 2389/08/22 potassium, serum 4.0 mmol/L 3.5-5.2 chloride, serum 100 mmol/L 98-107 carbon dioxide, venous blood 27.9 mmol/L 21.0-32.0 blood glucose 109 mg/dL 65-110 calcium, serum 9.0 mg/dL 8.5-10.1 urea nitrogen, blood 15 mg/dL 7-18 creatinine, serum 2.00 mg/dL 0.60-1.30 Lab Report: Basic Metabolic Panel, HGBA1C - Chemistry sodium, serum 134 mmol/L 133-625 8483/01/27 potassium, serum 4.1 mmol/L 3.5-5.2 chloride, serum 96 mmol/L 98-107 carbon dioxide, venous blood 35.1 mmol/L 21.0-32.0 blood glucose 346 mg/dL 65-110 calcium, serum 8.4 mg/dL 8.5-10.1 urea nitrogen, blood 18 mg/dL 7-18 creatinine, serum 2.00 mg/dL 0.60-1.30 hemoglobin A1C, blood, as % of total hemoglobin 8.4 % 4.3-6.0 Lab Report: CBC W/DIFF, Comp. Metabolic Panel - Chemistry sodium, serum 137 mmol/L 839-807 5683/01/21 potassium, serum 4.1 mmol/L 3.5-5.2 chloride, serum 99 mmol/L 98-107 carbon dioxide, venous blood 30.9 mmol/L 21.0-32.0 blood glucose 303 mg/dL 65-110 urea nitrogen, blood 19 mg/dL 7-18 creatinine, serum 2.00 mg/dL 0.60-1.30 alanine aminotransferase (SGPT), serum 84 U/L 12-78 aspartate aminotransferase (SGOT), serum 41 U/L 15-37 calcium, serum 7.8 mg/dL 8.5-10.1 bilirubin, serum, total 0.50 mg/dL 0.00-1.00 sodium, serum 131 mmol/L 673-803 9545/03/18 potassium, serum 4.4 mmol/L 3.5-5.2 chloride, serum 95 mmol/L 98-107 carbon dioxide, venous blood 19.0 mmol/L 21.0-32.0 blood glucose 297 mg/dL 65-110 urea nitrogen, blood 19 mg/dL 7-18 creatinine, serum 1.70 mg/dL 0.60-1.30 alanine aminotransferase (SGPT), serum 184 U/L 12-78 aspartate aminotransferase (SGOT), serum 177 U/L 15-37 calcium, serum 7.8 mg/dL 8.5-10.1 bilirubin, serum, total 0.50 mg/dL 0.00-1.00 sodium, serum 135 mmol/L 001-076 8895/11/26 potassium, serum 4.4 mmol/L 3.5-5.2 chloride, serum [...] % 11.6-14.8 platelet count 172 10^3/MM^3 10*3/mm3 289-751 7435/01/21 leukocyte count, blood 6.3 10^3/MM^3 10*3/mm3 4.6-10.2 [...] % 11.6-14.8 platelet count 137 10^3/MM^3 10*3/mm3 040-524 8070/03/18 leukocyte count, blood 4.8 10^3/MM^3 10*3/mm3 4.6-10.2 [...] Ag - Chemistry sodium, serum 131 mmol/L 475-260 2388/10/13 potassium, serum 3.6 mmol/L 3.5-5.2 chloride, serum [...] 0.60 mg/dL 0.00-1.00 cholesterol, serum 98 mg/dL 925-324 5015/10/13 triglyceride, serum, fasting 125 mg/dL 30-200 HDL cholesterol, serum 28 mg/dL 32-96 LDL cholesterol, serum 45 mg/dL 0-130 prostate specific antigen 0.30 ng/mL 0.00-4.00 Office Visit: Diabetes Visit - Chemistry cholesterol, [...] mg/dL Encounters Code Encounter Date Provider Facility CPT-69252 Level 2 Est. Patient 13:54:36 CDT Augustina Mata APRN [facility] CPT-53950 Level 3 Est. Patient 12:00:42 CDT Prosper Arenas MD [facility] CPT-37950 Level 3 Est. Patient 09:57:28 FLOOR DIRECTOR [facility] CPT-37170 Level 3 Est. Patient 11:41:19 FLOOR DIRECTOR [facility] CPT-40949 Level 4 Est. Patient 17:07:35 FLOOR DIRECTOR [facility] [place] CPT-51822 Level 5 Est. Patient 14:33:32 CDT [facility] CPT-50072 Level 3 Est. Patient 12:25:35 CDT Prosper Arenas MD [facility] Procedures Code Procedure Name Date Entry Date Standard Description CPT-TCMM Transitional Care Mgmt-Moderate 13:40:15 CDT CPT-G0008 Administration of Influenza Virus Vaccine 13:59:20 CDT CPT-39268 Fluzone High-Dose Intramuscular Suspension 13:59:20 CDT CPT-09242 Venipuncture Draw Fee 09:56:19 CDT CPT-OV Office Visit 15:46:10 CDT
--- OUTSIDE RECORDS SUMMARY | 2017-08-25 21:08 | XMS REPORT | Clinical Summary ---
Author Author Admin, [place] Organization [facility] [employer] [facility] Address Unknown Phone Unavailable Allergies, Adverse Reactions, Alerts Allergy Name Reaction Description Start Date Severity Status Provider ERYTHROMYCIN Stomach cramps Moderate Active Prosper Arenas MD CODEINE Critical Active Maliheh Ziglari SCIENTIFIC RESEARCH MANAGER DARVOCET Critical Active Maliheh Ziglari SCIENTIFIC RESEARCH MANAGER LEVAQUIN Critical Active Maliheh Ziglari SCIENTIFIC RESEARCH MANAGER Conditions or Problems Problem Name Problem Code Onset Date Status Entry Date Provider Comment Standard Description Annotate Diabetes, Type 2 250.00 Resolved 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, type II [...] type II, uncontrolled 250.02 Active Maliheh Ziglari SCIENTIFIC RESEARCH MANAGER Diabetes mellitus 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, type [...] with hyperglycemia 250.00 Active 03/21 Maliheh Ziglari SCIENTIFIC RESEARCH MANAGER Diabetes mellitus 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, type II or unspecified type, not stated as uncontrolled snf use of insulin treatment V58.67 Active Luxiheh Rodrigoglari SCIENTIFIC RESEARCH MANAGER Long-term (current) use of insulin Diabetes mellitus, type II with hypoglycemia 250.80 Active 07/22 Maliheh Ziglari SCIENTIFIC RESEARCH MANAGER Diabetes mellitus with other specified manifestations, type II or unspecified type, not stated as uncontrolled 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 Maliheh Ziglari SCIENTIFIC RESEARCH MANAGER Diabetes mellitus with renal manifestations, type II or unspecified type, not stated as uncontrolled Wellness exam V70.0 Active Dee Palmer APRN Routine general medical examination at a health care facility Fitting and adjustment of vascular catheter V58.81 Active 02/06 Dee Palmer APRN Encounter for fitting and adjustment of vascular catheter Unawareness of hypoglycemia in diabetes mellitus, type II 250.80 Active Maliheh Rodrigoglari SCIENTIFIC RESEARCH MANAGER Diabetes mellitus with other specified manifestations, type [...] specified as recurrent) Gastritis Inactive Maliheh Ziglari SCIENTIFIC RESEARCH MANAGER Unspecified gastritis and gastroduodenitis, 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 hemorrhage Cough 786.2 Active Dee Palmer APRN Cough Multiple myeloma, in relapse 203.02 Active Lexus To LRT Multiple myeloma in relapse Diabetes, Type 2 ICD-250.00 Inactive Mekhi Dukes [...] Dukes MD Gastritis Inactive Janis Puente LPN Medication List Medication Instructions Start Date Stop Date Generic Name NDC Status Provider Patient Instruction AZITHROMYCIN 250 MG ORAL TABLET 2 po qd x 1 day, then 1 po qd x 4 days 05/07 AZITHROMYCIN 14022170246 No Longer Active Dee Palmer APRN Active GUAIFENESIN DM 400-20 MG ORAL TABLET 1 pill by mouth twice daily, if needed for cough DEXTROMETHORPHAN-GUAIFENESIN 39032414858 Active Dee Palmer APRN Active PREDNISONE 20 MG ORAL TABLET 2 tabs daily for 4 days, 1 tab daily for 4 days, 1/2 tab daily for 4 days PREDNISONE 57568895571 Active Dee Palmer APRN Active ASPIRIN 81 MG ORAL TABLET 1 po qd ASPIRIN 59520360763 Active Dee Palmer APRN Active CALCIUM 500/D 500-200 MG-UNIT ORAL TABLET one tablet daily CALCIUM CARBONATE-VITAMIN D 07943496537 No Longer Active Trinhvito Barkleyngoc GAS PUMP ATTENDANT Active HYDROCODONE-ACETAMINOPHEN 7.5-325 MG ORAL TABLET 1-2 every 4-6 hrs prn 02/25 HYDROCODONE-ACETAMINOPHEN 69099335167 Active Marina Messina GAS PUMP ATTENDANT Active ASPIRIN 81 MG ORAL TABLET 1 tablet by mouth daily ASPIRIN 33391559328 No Longer Active Marina Messina GAS PUMP ATTENDANT Active SIMVASTATIN 80 MG ORAL TABLET 1/2 tablet daily SIMVASTATIN 94494498054 No Longer Active Mekhi Dukes MD Active OMEPRAZOLE 20 MG ORAL CAPSULE DELAYED RELEASE 1 qd OMEPRAZOLE 24738641823 No Longer Active Mekhi Dukes MD Active METOPROLOL TARTRATE 25 MG ORAL TABLET 1/2 tablet twice a day METOPROLOL TARTRATE 40292011821 No Longer Active Mekhi Dukes MD Active LISINOPRIL 5 MG ORAL TABLET 1 daily LISINOPRIL 38314739674 No Longer Active Mekhi Dukes MD Active NOVOLOG FLEXPEN 100 UNIT/ML SUBCUTANEOUS SOLUTION PEN-INJECTOR Take 8 units with each meal, add 1u/50 for blood sugars above 150. INSULIN ASPART 24033485795 Active Moy PARISH Active GABAPENTIN 300 MG ORAL CAPSULE 1 tab BID GABAPENTIN 90697105085 Active Tami Miller RN Active PREDNISONE 20 MG ORAL TABLET Take 2 daily for 3 days and then 1 daily for 3 days PREDNISONE 71699988146 No Longer Active Moy PARISH Active BENZONATATE 200 MG ORAL CAPSULE Take 1 tablet 3 times a day as needed for cough BENZONATATE 67179603760 No Longer Active Prosper Arenas MD Active HYDROCHLOROTHIAZIDE 25 MG ORAL TABLET 1 tablet by mouth daily HYDROCHLOROTHIAZIDE 53525003769 No Longer Active Prosper Arenas MD Active ACCU-CHEK JOANNA PLUS IN VITRO STRIP check blood sugars 5x a day, before each meal and bedtime and 15 minutes after treating a low blood. sugar GLUCOSE BLOOD 74834517442 Active Malpapo Wallaceglrex PARISH Active LANTUS SOLOSTAR 100 UNIT/ML SUBCUTANEOUS SOLUTION PEN-INJECTOR Take 40 units at 7-8pm daily INSULIN GLARGINE 57043358125 Active Maliheh Ziglari SCIENTIFIC RESEARCH MANAGER Active MECLIZINE HCL 25 MG ORAL TABLET 1 daily needed for dizziness 2015 MECLIZINE HCL 11697962797 No Longer Active Maliheh Ziglari SCIENTIFIC RESEARCH MANAGER Active BENZONATATE 200 MG ORAL CAPSULE 1 tab, 2-3 times a day BENZONATATE 96520330703 No Longer Active Maliheh Ziglari SCIENTIFIC RESEARCH MANAGER Active HALOPERIDOL 0.5 MG ORAL TABLET one tablet three times a day HALOPERIDOL 07050824962 No Longer Active Maliheh Ziglari SCIENTIFIC RESEARCH MANAGER Active TRAZODONE HCL 50 MG ORAL TABLET three tablets at bed time TRAZODONE HCL 75811246408 No Longer Active Maliheh Ziglari SCIENTIFIC RESEARCH MANAGER Active REVLIMID 25 MG ORAL CAPSULE one capsule daily for 21 days then off for 7 days LENALIDOMIDE 87977811572 No Longer Active Maliheh Ziglari SCIENTIFIC RESEARCH MANAGER Active ZITHROMAX Z-EDDIE 250 MG ORAL TABLET 2 today, then 1 daily for 4 days AZITHROMYCIN 05180415445 No Longer Active Augustina Mata APRN Active NOVOLIN R RELION 100 UNIT/ML INJECTION SOLUTION 30- 40 units each meal sliding scale INSULIN REGULAR HUMAN 96373040357 No Longer Active Maliheh Ziglari SCIENTIFIC RESEARCH MANAGER Active HYDROCODONE-ACETAMINOPHEN 5-500 MG ORAL TABLET 1-2 FOUR TIMES A DAY, PRN 2010 HYDROCODONE-ACETAMINOPHEN 13650672745 No Longer Active Prosper Arenas MD Active DOXYCYCLINE HYCLATE 100 MG ORAL CAPSULE take one capsule by mouth twice daily for ten days DOXYCYCLINE HYCLATE 74092238941 No Longer Active Mekhi Dukes MD Active DOXYCYCLINE HYCLATE 100 MG ORAL CAPSULE take one capsule by mouth twice daily for ten days DOXYCYCLINE HYCLATE 100 MG ORAL CAPSULE 8185101 DOXYCYCLINE HYCLATE Inactive HYDROCODONE-ACETAMINOPHEN 5-500 MG ORAL TABLET 1-2 FOUR TIMES A DAY, PRN 2010 HYDROCODONE-ACETAMINOPHEN 5-500 MG ORAL TABLET 922666 HYDROCODONE-ACETAMINOPHEN Inactive NOVOLIN R RELION 100 UNIT/ML INJECTION SOLUTION 30- 40 units each meal sliding scale NOVOLIN R RELION 100 UNIT/ML INJECTION SOLUTION INSULIN REGULAR HUMAN Inactive ZITHROMAX Z-EDDIE 250 MG ORAL TABLET 2 today, then 1 daily for 4 days ZITHROMAX Z-EDDIE 250 MG ORAL TABLET 974540 AZITHROMYCIN Inactive REVLIMID 25 MG ORAL CAPSULE one capsule daily for 21 days then off for 7 days REVLIMID 25 MG ORAL CAPSULE LENALIDOMIDE Inactive TRAZODONE HCL 50 MG ORAL TABLET three tablets at bed time TRAZODONE HCL 50 MG ORAL TABLET 304314 TRAZODONE HCL Inactive HALOPERIDOL 0.5 MG ORAL TABLET one tablet three times a day HALOPERIDOL 0.5 MG ORAL TABLET 215102 HALOPERIDOL Inactive BENZONATATE 200 MG ORAL CAPSULE 1 tab, 2-3 times a day BENZONATATE 200 MG ORAL CAPSULE 012668 BENZONATATE Inactive MECLIZINE HCL 25 MG ORAL TABLET 1 daily needed for dizziness 2015 MECLIZINE HCL 25 MG ORAL TABLET 752289 MECLIZINE HCL Inactive HYDROCHLOROTHIAZIDE 25 MG ORAL TABLET 1 tablet by mouth daily HYDROCHLOROTHIAZIDE 25 MG ORAL TABLET 757582 HYDROCHLOROTHIAZIDE Inactive PREDNISONE 20 MG ORAL TABLET Take 2 daily for 3 days and then 1 daily for 3 days PREDNISONE 20 MG ORAL TABLET 195399 PREDNISONE Inactive LISINOPRIL 5 MG ORAL TABLET 1 daily LISINOPRIL 5 MG ORAL TABLET 462951 LISINOPRIL Inactive METOPROLOL TARTRATE 25 MG ORAL TABLET 1/2 tablet twice a day METOPROLOL TARTRATE 25 MG ORAL TABLET 734922 METOPROLOL TARTRATE Inactive OMEPRAZOLE 20 MG ORAL CAPSULE DELAYED RELEASE 1 qd OMEPRAZOLE 20 MG ORAL CAPSULE DELAYED RELEASE 054785 OMEPRAZOLE Inactive SIMVASTATIN 80 MG ORAL TABLET 1/2 tablet daily SIMVASTATIN 80 MG ORAL TABLET 975536 SIMVASTATIN Inactive ASPIRIN 81 MG ORAL TABLET 1 tablet by mouth daily ASPIRIN 81 MG ORAL TABLET 267830 ASPIRIN Inactive CALCIUM 500/D 500-200 MG-UNIT ORAL TABLET one tablet daily CALCIUM 500/D 500-200 MG-UNIT ORAL TABLET CALCIUM CARBONATE-VITAMIN D Inactive BENZONATATE 200 MG ORAL CAPSULE Take 1 tablet 3 times a day as needed for cough BENZONATATE 200 MG ORAL CAPSULE 438439 BENZONATATE Inactive AZITHROMYCIN 250 MG ORAL TABLET 2 po qd x 1 day, then 1 po qd x 4 days 05/07 AZITHROMYCIN 250 MG ORAL TABLET 213335 AZITHROMYCIN Inactive Immunizations Vaccine Administration Date Value [...] rate weight E&M 190 [lb_av] Weight Measured Diagnostic Results Date [...] Panel - Chemistry sodium, serum 135 mmol/L 398-052 4357/04/10 carbon dioxide, venous blood 26.1 mmol/L 21.0-32.0 potassium, serum 4.2 mmol/L 3.5-5.2 chloride, serum 100 mmol/L 98-107 blood glucose 293 mg/dL 65-110 urea nitrogen, blood 18 mg/dL 7-18 creatinine, serum 2.06 mg/dL 0.60-1.30 alanine aminotransferase (SGPT), serum 59 U/L - aspartate aminotransferase (SGOT), serum 47 U/L 15-37 calcium, serum 8.6 mg/dL 8.5-10.1 bilirubin, serum, total 0.30 mg/dL 0.00-1.00 sodium, serum 139 mmol/L 517-076 0794/05/01 carbon dioxide, venous blood 25.2 mmol/L 21.0-32.0 potassium, serum 4.1 mmol/L 3.5-5.2 chloride, serum 104 mmol/L 98-107 blood glucose 64 mg/dL 65-95 urea nitrogen, blood 16 mg/dL 7-18 creatinine, serum 1.55 mg/dL 0.60-1.30 alanine aminotransferase (SGPT), serum 80 U/L - aspartate aminotransferase (SGOT), serum 53 U/L 15-37 calcium, serum 8.1 mg/dL 8.5-10.1 bilirubin, serum, total 0.40 mg/dL 0.00-1.00 sodium, serum 135 mmol/L 796-279 4322/05/08 carbon dioxide, venous blood 29.0 mmol/L 21.0-32.0 potassium, serum 4.8 mmol/L 3.5-5.2 chloride, serum 101 mmol/L 98-107 blood glucose 165 mg/dL 65-95 urea nitrogen, blood 19 mg/dL 7-18 creatinine, serum 1.51 mg/dL 0.60-1.30 alanine aminotransferase (SGPT), serum 65 U/L 12-78 aspartate aminotransferase (SGOT), serum 38 U/L 15-37 calcium, serum 8.2 mg/dL 8.5-10.1 bilirubin, serum, total 0.50 mg/dL 0.00-1.00 Lab Report: CBC W/DIFF, Comp. Metabolic Panel - Hematology leukocyte count, blood 1.8 10^3/MM^3 10*3/mm3 4.6-10.2 neutrophils as percent of blood leukocytes 44.6 % 42.2-75.2 monocytes as percent of blood leukocytes 23.3 % 1.7-9.3 lymphocytes as percent of blood leukocytes 27.9 % 20.5-51.1 erythrocyte (RBC) count 4.61 10^6/MM^3 10*6/mm3 4.50-6.50 hemoglobin, blood 15.4 g/dL 14.0-18.0 hematocrit, blood 45.4 % 40.0-54.0 mean corpuscular volume, RBC 98 fL 80-97 mean corpuscular hemoglobin, RBC 33.5 pg 27.0-31.2 mean corpuscular hemoglobin concentration, RBC 34.0 G/DL % 31.8- 35.4 red blood cell distribution width 13.8 % 11.6-14.8 platelet count 103 10^3/MM^3 10*3/mm3 551-484 9752/05/01 leukocyte count, blood 5.0 10^3/MM^3 10*3/mm3 4.6-10.2 neutrophils as percent of blood leukocytes 37.5 % 42.2-75.2 monocytes as percent of blood leukocytes 16.1 % 1.7-9.3 lymphocytes as percent of blood leukocytes 43.2 % 20.5-51.1 erythrocyte (RBC) count 4.56 10^6/MM^3 10*6/mm3 4.50-6.50 hemoglobin, blood 14.9 g/dL 14.0-18.0 hematocrit, blood 45.1 % 40.0-54.0 mean corpuscular volume, RBC 99 fL 80-97 mean corpuscular hemoglobin, RBC 32.8 pg 27.0-31.2 mean corpuscular hemoglobin concentration, RBC 33.1 G/DL % 31.8- 35.4 red blood cell distribution width 13.9 % 11.6-14.8 platelet count 271 10^3/MM^3 10*3/mm3 822-867 2560/04/10 leukocyte count, blood 4.8 10^3/MM^3 10*3/mm3 4.6-10.2 [...] W/DIFF - Chemistry sodium, serum 137 mmol/L 884-335 3305/08/16 carbon dioxide, venous blood 26.3 mmol/L 21.0-32.0 [...] LABS - Chemistry cholesterol, serum 115 mg/dL 213-629 8083/08/18 triglyceride, serum, fasting 89 mg/dL 30-200 HDL [...] mg/dL Encounters Code Encounter Date Provider Facility CPT-37916 Level 3 Est. Patient 14:09:25 SOLDERING MACHINE OPERATOR AUTOMATIC Dee Palmer [facility] CPT-73087 Level 3 Est. Patient 10:53:32 SOLDERING MACHINE OPERATOR AUTOMATIC Moy Garcia [facility] CPT-62509 Level 3 Est. Patient 17:11:55 SOLDERING MACHINE OPERATOR AUTOMATIC Ismael Gracia MD [facility] CPT-46621 Level 4 Est. Patient 16:29:19 CDT Mekhi Dukes MD [facility] CPT-12708 Level 3 New Patient 17:05:24 CDT Ismael Gracia MD [facility] CPT-08758 Level 2 Est. Patient 15:43:17 CDT Mekhi Dukes MD [facility] CPT-29341 Level 3 Est. Patient 09:30:37 CDT Luxcarissashoaib Jose [facility] CPT-86936 Level 3 Est. Patient 10:00:14 CDT Mekhi Dukes MD [facility]-88423 Level 3 Est. Patient 12:24:09 CDT Luxcarissashoaib Jose [facility] CPT-41100 Level 3 Est. Patient 14:34:57 CDT Prosper Arenas MD [facility] CPT-72809 Level 3 New Patient 15:44:53 SOLDERING MACHINE OPERATOR AUTOMATIC Mekhi Dukes MD [facility] CPT-50124 Level 3 Est. Patient 14:53:34 SOLDERING MACHINE OPERATOR AUTOMATIC Prosper Arenas MD [facility]-41184 Level 4 Est. Patient 10:05:41 SOLDERING MACHINE OPERATOR AUTOMATIC Luxpapo Garcia [facility] CPT-80268 Level 3 Est. Patient 11:18:32 CDT Luxcarissashoaib Jose [facility] CPT-68868 Level 4 Est. Patient 11:05:10 CDT Luxcarissashoaib Jose [facility] CPT-82383 Level 3 Est. Patient 11:08:27 SOLDERING MACHINE OPERATOR AUTOMATIC Moy Garcia [facility] CPT-75890 Level 4 Est. Patient 10:43:59 CDT Prosper Arenas MD [facility] CPT-67040 Level 3 Est. Patient 10:51:19 CDT Moy Garcia [facility] CPT-05976 Level 3 Est. Patient 10:20:31 CDT Moy Garcia [facility] CPT-24208 Level 3 Est. Patient 17:08:45 [facility] 2 Est. Patient 13:54:36 CDT Augustina Adolfo BESSY [facility] CPT-10235 Level 3 Est. Patient 12:00:42 CDT Prosper Arenas MD [facility] CPT-66088 Level 3 Est. Patient 09:57:28 SOLDERING MACHINE OPERATOR AUTOMATIC [facility] Level 3 Est. Patient 11:41:19 SOLDERING MACHINE OPERATOR AUTOMATIC [facility] CPT-95724 Level 4 Est. Patient 17:07:35 SOLDERING MACHINE OPERATOR AUTOMATIC [facility] CPT-26790 Level 5 Est. Patient 14:33:32 CDT [facility] CPT-64811 Level 3 Est. Patient 12:25:35 CDT Prosper Arenas MD [facility] Procedures Code Procedure Name Date Entry Date Standard Description CPT-37797 Chest, 2 views 14:17:20 SOLDERING MACHINE OPERATOR AUTOMATIC CPT-23203 Postop F/U Visit 14:44:45 SOLDERING MACHINE OPERATOR AUTOMATIC CPT-20765 Postop F/U Visit 17:20:20 SOLDERING MACHINE OPERATOR AUTOMATIC CPT-G0439 [facility] Annual Wellness Exam 08:39:41 SOLDERING MACHINE OPERATOR AUTOMATIC CPT-000 Give Appropriate Flu Vaccine 10:13:55 SOLDERING MACHINE OPERATOR AUTOMATIC CPT-000 Give Immunizations Due 10:13:55 SOLDERING MACHINE OPERATOR AUTOMATIC CPT-20753 HGBA1C - LAB USE ONLY 09:42:47 SOLDERING MACHINE OPERATOR AUTOMATIC CPT-07336 TPSA - LAB USE ONLY 09:42:46 SOLDERING MACHINE OPERATOR AUTOMATIC CPT-75684 Venipuncture Draw Fee 09:42:46 SOLDERING MACHINE OPERATOR AUTOMATIC CPT-62463 Port a cath flush 13:33:18 SOLDERING MACHINE OPERATOR AUTOMATIC CPT-79491 First Vx - Ix admin for Medicare patients 10:42:57 SOLDERING MACHINE OPERATOR AUTOMATIC CPT-53737 Fluzone Preservative Free Intramuscular Suspension 10:42 :57 SOLDERING MACHINE OPERATOR AUTOMATIC CPT-G0438 Initial Annual Wellness Exam 10:13:55 SOLDERING MACHINE OPERATOR AUTOMATIC CPT-000 Give Appropriate Flu Vaccine 10:44:04 CDT CPT-000 Give Pneumovax 10:44:03 CDT CPT-82340 Port a cath flush 17:04:43 CDT CPT-67444 Prevnar 13 11:19:17 CDT CPT-55906 Fluzone Quadrivalent preservative free (>=3yrs.) 11:19: 17 CDT CPT-68155 Immunization Each Additional Inj 11:19:17 CDT CPT-04247 Immunization Single Admin 11:19:17 CDT CPT-57984 Port a cath flush 13:28:22 CDT CPT-TCMM Transitional Care Mgmt-Moderate 13:40:15 CDT CPT-G0008 Administration of Influenza Virus Vaccine 13:59:20 CDT CPT-16178 Fluzone High-Dose Intramuscular Suspension 13:59:20 CDT CPT-37392 Venipuncture Draw Fee 09:56:19 CDT CPT-OV Office Visit 15:46:10 CDT
--- OUTSIDE RECORDS SUMMARY | 2017-08-25 21:09 | XMS REPORT | Clinical Summary ---
Author Author Admin, IWONA Organization [employer] Address Unknown Phone Unavailable Allergies, Adverse Reactions, Alerts Allergy Name Reaction Description Start Date Severity Status Provider ERYTHROMYCIN Stomach cramps Moderate Active Prosper Arenas MD CODEINE Critical Active Maliheh Ziglari MECHANICAL SOUND TECHNICIAN DARVOCET Critical Active Maliheh Ziglari MECHANICAL SOUND TECHNICIAN LEVAQUIN Critical Active Maliheh Ziglari MECHANICAL SOUND TECHNICIAN Conditions or Problems Problem Name Problem Code [...] type II, uncontrolled 250.02 Active Maliheh Ziglari MECHANICAL SOUND TECHNICIAN Diabetes mellitus 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, type [...] with hyperglycemia 250.00 Active 03/21 Maliheh Ziglari MECHANICAL SOUND TECHNICIAN Diabetes mellitus 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, type II or unspecified type, not stated as uncontrolled residential use of insulin treatment V58.67 Active Maliheh Ziglari MECHANICAL SOUND TECHNICIAN Long-term (current) use of insulin Diabetes mellitus, type II with hypoglycemia 250.80 Active 07/22 Maliheh Ziglari MECHANICAL SOUND TECHNICIAN Diabetes mellitus with other specified manifestations, type II or unspecified type, not stated as uncontrolled 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 Maliheh Ziglari MECHANICAL SOUND TECHNICIAN Diabetes mellitus with renal manifestations, type II or unspecified type, not stated as uncontrolled Wellness exam V70.0 Active Dee Palmer APRN Routine general medical examination at a health care facility Fitting and adjustment of vascular catheter V58.81 Active 02/06 Dee Palmer APRN Encounter for fitting and adjustment of vascular catheter Unawareness of hypoglycemia in diabetes mellitus, type II 250.80 Active Maliheh Ziglari MECHANICAL SOUND TECHNICIAN Diabetes mellitus with other specified manifestations, type [...] day as needed for cough 07/29 BENZONATATE 48318205993 Active Prosper Arenas MD Active PREDNISONE 20 MG TABS Take 2 daily for 3 days and then 1 daily for 3 days PREDNISONE 39206757884 Active Prosper Arenas MD Active HYDROCHLOROTHIAZIDE 25 MG TABS 1 tablet by mouth daily HYDROCHLOROTHIAZIDE 19512195527 No Longer Active Prosper Arenas MD Active ACCU-CHEK JOANNA PLUS STRP check blood sugars 5x a day, before each meal and bedtime and 15 minutes after treating a low blood. sugar GLUCOSE BLOOD 69689355785 Active Maliheh Ziglari MECHANICAL SOUND TECHNICIAN Active NOVOLOG FLEXPEN 100 UNIT/ML SOPN Take 25 units with each meal, add 1u/50 for blood sugars above 150. INSULIN ASPART 41334663580 Active Maliheh Ziglari MECHANICAL SOUND TECHNICIAN Active LANTUS SOLOSTAR 100 UNIT/ML SOLN Take 40 units at 7-8pm daily INSULIN GLARGINE 49096266627 Active [facility] Ziglari MECHANICAL SOUND TECHNICIAN Active MECLIZINE HCL 25 MG TABS 1 daily needed for dizziness MECLIZINE HCL 28275114924 No Longer Active [facility] Ziglari MECHANICAL SOUND TECHNICIAN Active BENZONATATE 200 MG CAPS 1 tab, 2-3 times a day BENZONATATE 09888403773 No Longer Active [facility] Ziglari MECHANICAL SOUND TECHNICIAN Active HALOPERIDOL 0.5 MG TABS one tablet three times a day HALOPERIDOL 52847430675 No Longer Active [facility] Ziglari MECHANICAL SOUND TECHNICIAN Active TRAZODONE HCL 50 MG TAB three tablets at bed time TRAZODONE HCL 06220417100 No Longer Active [facility] Ziglari MECHANICAL SOUND TECHNICIAN Active REVLIMID 25 MG CAPS one capsule daily for 21 days then off for 7 days 2014 LENALIDOMIDE 91850972095 No Longer Active [facility] Ziglari MECHANICAL SOUND TECHNICIAN Active ZITHROMAX Z-EDDIE 250 MG TABS 2 today, then 1 daily for 4 days 2014 AZITHROMYCIN 09787558608 No Longer Active Augustina Mata SERVICES EXECUTIVE Active NOVOLIN R RELION 100 UNIT/ML INJ SOLN 30- 40 units each meal sliding scale INSULIN REGULAR HUMAN 85785217473 [facility] MECHANICAL SOUND TECHNICIAN Active LISINOPRIL 5 MG TABS 1 daily LISINOPRIL 26946206572 Active Prosper Arenas MD Active CALCIUM 500/D 500-200 MG-UNIT TABS one tablet daily CALCIUM CARBONATE- VITAMIN D 79439169386 Active Prosper Arenas MD Active HYDROCODONE-ACETAMINOPHEN 5-500 MG TABS 1-2 FOUR TIMES A DAY, PRN HYDROCODONE-ACETAMINOPHEN 16387693297 No Longer Active Prosper Arenas MD Active SIMVASTATIN 80 MG TABS 1/2 tablet daily SIMVASTATIN 65594797182 Active Prosper Arenas MD Active METOPROLOL TARTRATE 25 MG TABS 1/2 tablet twice a day METOPROLOL TARTRATE 83756601608 Active Prosper Arenas MD Active ASPIRIN 81 MG TAB 1 tablet by mouth daily ASPIRIN 87197541281 Active Prosper Arenas MD Active OMEPRAZOLE 20 MG CPDR 1 qd OMEPRAZOLE 47794641430 Active DARCIE Miller Active DOXYCYCLINE HYCLATE 100 MG CAPS take one capsule by mouth twice daily for ten days DOXYCYCLINE HYCLATE 67599812725 No Longer Active Mekhi Dukes MD Active DOXYCYCLINE HYCLATE 100 MG CAPS take one capsule by mouth twice daily for ten days DOXYCYCLINE HYCLATE 100 MG CAPS 0969722 DOXYCYCLINE HYCLATE Inactive HYDROCODONE-ACETAMINOPHEN 5-500 MG TABS [...] days 2014 ZITHROMAX Z-EDDIE 250 MG TABS 2727217 AZITHROMYCIN Inactive REVLIMID 25 MG CAPS one capsule daily for 21 days then off for 7 days 2014 REVLIMID 25 MG CAPS LENALIDOMIDE Inactive TRAZODONE HCL 50 MG TAB three tablets at bed time TRAZODONE HCL 50 MG TAB 172901 TRAZODONE HCL Inactive HALOPERIDOL 0.5 MG TABS one tablet three times a day HALOPERIDOL 0.5 MG TABS 202931 HALOPERIDOL Inactive BENZONATATE 200 MG CAPS 1 tab, 2-3 times a day BENZONATATE 200 MG CAPS 597330 BENZONATATE Inactive MECLIZINE HCL 25 MG TABS 1 daily needed for dizziness MECLIZINE HCL 25 MG TABS 225025 MECLIZINE HCL Inactive HYDROCHLOROTHIAZIDE 25 MG TABS 1 tablet by mouth daily HYDROCHLOROTHIAZIDE 25 MG TABS 931039 HYDROCHLOROTHIAZIDE Inactive Immunizations Vaccine Administration Date Value [...] Range Description blood pressure, diastolic - 8462-4 92 mm[Hg] [...] LAB - Chemistry cholesterol, serum 156 mg/dL 010-157 5732/02/20 HDL cholesterol, serum 52 mg/dL > OR=40 [...] mg/dL Encounters Code Encounter Date Provider Facility CPT-33104 Level 3 Est. Patient 14:34:57 CDT Prosper Arenas MD [facility] CPT-62474 Level 3 New Patient 15:44:53 WAX BALL KNOCK OUT WORKER Mekhi Dukes MD [facility] CPT-79848 Level 3 Est. Patient 14:53:34 WAX BALL KNOCK OUT WORKER Prosper Arenas MD [facility] CPT-35521 Level 4 Est. Patient 10:05:41 WAX BALL KNOCK OUT WORKER [facility] [place] CPT-62406 Level 3 Est. Patient 11:18:32 CDT [facility] [place] CPT-60502 Level 4 Est. Patient 11:05:10 CDT [facility] CPT-80817 Level 3 Est. Patient 11:08:27 WAX BALL KNOCK OUT WORKER [facility] Level 4 Est. Patient 10:43:59 CDT Prosper Arenas MD [facility] CPT-04734 Level 3 Est. Patient 10:51:19 CDT [facility] [place]PT-53619 Level 3 Est. Patient 10:20:31 CDT [facility] CPT-68726 Level 3 Est. Patient 17:08:45 CDT [facility] CPT-17706 Level 2 Est. Patient 13:54:36 CDT Augustina Mata BESSY [facility] CPT-68963 Level 3 Est. Patient 12:00:42 CDT Prosper Arenas MD [facility] CPT-15811 Level 3 Est. Patient 09:57:28 WAX BALL KNOCK OUT WORKER [facility] CPT-92991 Level 3 Est. Patient 11:41:19 WAX BALL KNOCK OUT WORKER Moy Garcia [facility] CPT-99761 Level 4 Est. Patient 17:07:35 WAX BALL KNOCK OUT WORKER [facility]83677 Level 5 Est. [facility] 14:33:32 [facility] CPT-49621 Level 3 Est. Patient 12:25:35 CDT Prosper Arenas MD [facility] Procedures Code Procedure Name Date Entry Date Standard Description CPT-000 Give Appropriate Flu Vaccine 10:13:55 WAX BALL KNOCK OUT WORKER CPT-000 Give Immunizations Due 10:13:55 WAX BALL KNOCK OUT WORKER CPT-45133 HGBA1C - LAB USE ONLY 09:42:47 WAX BALL KNOCK OUT WORKER CPT-14991 TPSA - LAB USE ONLY 09:42:46 WAX BALL KNOCK OUT WORKER CPT-43746 Venipuncture Draw Fee 09:42:46 WAX BALL KNOCK OUT WORKER CPT-54430 Port a cath flush 13:33:18 WAX BALL KNOCK OUT WORKER CPT-10157 First Vx - Ix admin for Medicare patients 10:42:57 WAX BALL KNOCK OUT WORKER CPT-59376 Fluzone Preservative Free Intramuscular Suspension 10:42 :57 WAX BALL KNOCK OUT WORKER CPT-G0438 Initial Annual Wellness Exam 10:13:55 WAX BALL KNOCK OUT WORKER CPT-000 Give Appropriate Flu Vaccine 10:44:04 CDT CPT-000 Give Pneumovax 10:44:03 CDT CPT-74336 Port a cath flush 17:04:43 CDT CPT-09583 Prevnar 13 11:19:17 CDT CPT-76688 Fluzone Quadrivalent preservative free (>=3yrs.) 11:19: 17 CDT CPT-02006 Immunization Each Additional Inj 11:19:17 CDT CPT-77425 Immunization Single Admin 11:19:17 CDT CPT-35490 Port a cath flush 13:28:22 CDT CPT-TCMM Transitional Care Mgmt-Moderate 13:40:15 CDT CPT-G0008 Administration of Influenza Virus Vaccine 13:59:20 CDT CPT-41580 Fluzone High-Dose Intramuscular Suspension 13:59:20 CDT CPT-79178 Venipuncture Draw Fee 09:56:19 CDT CPT-OV Office Visit 15:46:10 CDT
--- OUTSIDE RECORDS SUMMARY | 2017-08-25 21:09 | XMS REPORT | Clinical Summary ---
Author Author Admin, IWONA Organization [email or web address] Address Unknown Phone Unavailable Allergies, Adverse Reactions, Alerts Allergy Name Reaction Description Start Date Severity Status Provider ERYTHROMYCIN Stomach cramps Moderate Active Prosper Arenas MD CODEINE Critical Active Maliheh Ziglari TRAIL CONSTRUCTION WORKER DARVOCET Critical Active Maliheh Ziglari TRAIL CONSTRUCTION WORKER LEVAQUIN Critical Active Maliheh Ziglari TRAIL CONSTRUCTION WORKER Conditions or Problems Problem Name Problem Code Onset Date Status Entry Date Provider Comment Standard Description Annotate Diabetes, Type 2 250.00 Active Mekhi Dukes MD Diabetes mellitus 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, type II or unspecified type, not stated as uncontrolled Hyperlipidemia 272.4 Active Mekhi Dukes MD Other and unspecified hyperlipidemia Hypertension 401.9 Active eMkhi Dukes MD Unspecified essential hypertension FH Colon [...] type II, uncontrolled 250.02 Active Maliheh Ziglari TRAIL CONSTRUCTION WORKER Diabetes mellitus 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, [...] with hyperglycemia 250.00 Active 03/21 Maliheh Ziglari TRAIL CONSTRUCTION WORKER Diabetes mellitus 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, type II or unspecified type, not stated as uncontrolled long-term use of insulin treatment V58.67 Active Maliheh Ziglari TRAIL CONSTRUCTION WORKER Long-term (current) use of insulin Diabetes mellitus, type II with hypoglycemia 250.80 Active 07/22 Maliheh Ziglari TRAIL CONSTRUCTION WORKER Diabetes mellitus with other specified manifestations, type II or unspecified type, not stated as uncontrolled 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 Maliheh Ziglari TRAIL CONSTRUCTION WORKER Diabetes mellitus with renal manifestations, type II or unspecified type, not stated as uncontrolled Wellness exam V70.0 Active Dee Palmer APRN Routine general medical examination at a health care facility Fitting and adjustment of vascular catheter V58.81 Active 02/06 Dee Palmer APRN Encounter for fitting and adjustment of vascular catheter Unawareness of hypoglycemia in diabetes mellitus, type II 250.80 Active Maliheh Ziglari TRAIL CONSTRUCTION WORKER Diabetes mellitus with other specified manifestations, [...] then 1 daily for 3 days PREDNISONE 29002545502 No Longer Active Moy PARISH Active BENZONATATE 200 MG CAPS Take 1 tablet 3 times a day as needed for cough 07/29 BENZONATATE 81062513859 No Longer Active Prosper Arenas MD Active HYDROCHLOROTHIAZIDE 25 MG TABS 1 tablet by mouth daily HYDROCHLOROTHIAZIDE 32363707833 No Longer Active Prosper Arenas MD Active ACCU-CHEK JOANNA PLUS STRP check blood sugars 5x a day, before each meal and bedtime and 15 minutes after treating a low blood. sugar GLUCOSE BLOOD 40614091664 Active [facility] TRAIL CONSTRUCTION WORKER Active NOVOLOG FLEXPEN 100 UNIT/ML SOPN Take 25 units with each meal, add 1u/50 for blood sugars above 150. INSULIN ASPART 49470895054 Active [facility] Wallace[facility] TRAIL CONSTRUCTION WORKER Active LANTUS SOLOSTAR 100 UNIT/ML SOLN Take 40 units at 7-8pm daily INSULIN GLARGINE 42721954718 [facility] Zigl[facility] TRAIL CONSTRUCTION WORKER Active MECLIZINE HCL 25 MG TABS 1 daily needed for dizziness MECLIZINE HCL 37309033268 No Longer Active Maleh Ziglari TRAIL CONSTRUCTION WORKER Active BENZONATATE 200 MG CAPS 1 tab, 2-3 times a day BENZONATATE 60163510628 No Longer Active [facility] Ziglari TRAIL CONSTRUCTION WORKER Active HALOPERIDOL 0.5 MG TABS one tablet three times a day HALOPERIDOL 75767259941 No Longer Active [facility] Ziglari TRAIL CONSTRUCTION WORKER Active TRAZODONE HCL 50 MG TAB three tablets at bed time TRAZODONE HCL 18259591068 No Longer Active [facility] Ziglari TRAIL CONSTRUCTION WORKER Active REVLIMID 25 MG CAPS one capsule daily for 21 days then off for 7 days 2014 LENALIDOMIDE 30018451638 No Longer Active [facility] Ziglari TRAIL CONSTRUCTION WORKER Active ZITHROMAX Z-EDDIE 250 MG TABS 2 today, then 1 daily for 4 days 2014 AZITHROMYCIN 50944016876 No Longer Active Augustina Mata BESSY Active NOVOLIN R RELION 100 UNIT/ML INJ SOLN 30- 40 units each meal sliding scale INSULIN REGULAR HUMAN 64423915947 No Longer Active [facility] Rodrigoglari TRAIL CONSTRUCTION WORKER Active LISINOPRIL 5 MG TABS 1 daily LISINOPRIL 42471515723 Active Prosper Arenas MD Active CALCIUM 500/D 500-200 MG-UNIT TABS one tablet daily CALCIUM CARBONATE- VITAMIN D 00840569048 Active Prosper Arenas MD Active HYDROCODONE-ACETAMINOPHEN 5-500 MG TABS 1-2 FOUR TIMES A DAY, PRN HYDROCODONE-ACETAMINOPHEN 15907844900 No Longer Active Prosper Arenas MD Active SIMVASTATIN 80 MG TABS 1/2 tablet daily SIMVASTATIN 93094398276 Active Prosper Arenas MD Active METOPROLOL TARTRATE 25 MG TABS 1/2 tablet twice a day METOPROLOL TARTRATE 41719988172 Active Prosper Arenas MD Active ASPIRIN 81 MG TAB 1 tablet by mouth daily ASPIRIN 10511920425 Active Porsper Arenas MD Active OMEPRAZOLE 20 MG CPDR 1 qd OMEPRAZOLE 94350880182 Active DARCIE Miller Active DOXYCYCLINE HYCLATE 100 MG CAPS take one capsule by mouth twice daily for ten days DOXYCYCLINE HYCLATE 56210011642 No Longer Active Mekhi Dukes MD Active DOXYCYCLINE HYCLATE 100 MG CAPS take one capsule by mouth twice daily for ten days DOXYCYCLINE HYCLATE 100 MG CAPS 3709536 DOXYCYCLINE HYCLATE Inactive HYDROCODONE-ACETAMINOPHEN 5-500 MG TABS [...] days 2014 ZITHROMAX Z-EDDIE 250 MG TABS 8285531 AZITHROMYCIN Inactive REVLIMID 25 MG CAPS one capsule daily for 21 days then off for 7 days 2014 REVLIMID 25 MG CAPS LENALIDOMIDE Inactive TRAZODONE HCL 50 MG TAB three tablets at bed time TRAZODONE HCL 50 MG TAB 499358 TRAZODONE HCL Inactive HALOPERIDOL 0.5 MG TABS one tablet three times a day HALOPERIDOL 0.5 MG TABS 945723 HALOPERIDOL Inactive BENZONATATE 200 MG CAPS 1 tab, 2-3 times a day BENZONATATE 200 MG CAPS 373772 BENZONATATE Inactive MECLIZINE HCL 25 MG TABS 1 daily needed for dizziness MECLIZINE HCL 25 MG TABS 828520 MECLIZINE HCL Inactive HYDROCHLOROTHIAZIDE 25 MG TABS 1 tablet by mouth daily HYDROCHLOROTHIAZIDE 25 MG TABS 042717 HYDROCHLOROTHIAZIDE Inactive PREDNISONE 20 MG TABS Take 2 daily for 3 days and then 1 daily for 3 days PREDNISONE 20 MG TABS 977991 PREDNISONE Inactive BENZONATATE 200 MG CAPS Take 1 tablet 3 times a day as needed for cough 07/29 BENZONATATE 200 MG CAPS 274863 BENZONATATE Inactive Immunizations Vaccine Administration Date Value [...] LAB - Chemistry cholesterol, serum 156 mg/dL 163-060 6916/02/20 HDL cholesterol, serum 52 mg/dL > OR=40 [...] mg/dL Encounters Code Encounter Date Provider Facility CPT-85950 Level 3 Est. Patient 12:24:09 CDT Moy Garcia [facility] CPT-10078 Level 3 Est. Patient 14:34:57 CDT Prosper Arenas MD [facility] CPT-06452 Level 3 New Patient 15:44:53 FULL STACK WEB DEVELOPER Mekhi Dukes MD [facility] CPT-97374 Level 3 Est. Patient 14:53:34 FULL STACK WEB DEVELOPER Prosper Arenas MD [facility] CPT-19604 Level 4 Est. Patient 10:05:41 FULL STACK WEB DEVELOPER [facility] Level 3 Est. Patient 11:18:32 CDT Moy Garcia [facility] CPT-24262 Level 4 Est. Patient 11:05:10 CDT Moy Garcia [facility] CPT-25553 Level 3 Est. Patient 11:08:27 FULL STACK WEB DEVELOPER Myo Garcia [facility] CPT-83639 Level 4 Est. Patient 10:43:59 CDT Prosper Arenas MD [facility] CPT-35797 Level 3 Est. Patient 10:51:19 CDT Moy Garcia [facility] CPT-81949 Level 3 Est. Patient 10:20:[facility]PT-90933 Level 3 Est. [facility]08:45 [facility] Level 2 Est. Patient 13:54:36 CDT Augustina Mata APRN [facility] CPT-49069 Level 3 Est. Patient 12:00:42 CDT Prosper Arenas MD [facility] CPT-36762 Level 3 Est. Patient 09:57:28 FULL STACK WEB DEVELOPER Moy Garcia [facility] CPT-85904 Level 3 Est. Patient 11:41:19 FULL STACK WEB DEVELOPER Moy Garcia [facility] CPT-49883 Level 4 Est. Patient 17:07:35 FULL STACK WEB DEVELOPER Moy Garcia [facility] CPT-28695 Level 5 Est. Patient 14:33:32 [facility] CPT-82951 Level 3 Est. Patient 12:25:35 CDT Prosper Arenas MD [facility] Procedures Code Procedure Name Date Entry Date Standard Description CPT-000 Give Appropriate Flu Vaccine 10:13:55 FULL STACK WEB DEVELOPER CPT-000 Give Immunizations Due 10:13:55 FULL STACK WEB DEVELOPER CPT-42511 HGBA1C - LAB USE ONLY 09:42:47 FULL STACK WEB DEVELOPER CPT-16128 TPSA - LAB USE ONLY 09:42:46 FULL STACK WEB DEVELOPER CPT-88262 Venipuncture Draw Fee 09:42:46 FULL STACK WEB DEVELOPER CPT-52469 Port a cath flush 13:33:18 FULL STACK WEB DEVELOPER CPT-14204 First Vx - Ix admin for Medicare patients 10:42:57 FULL STACK WEB DEVELOPER CPT-73382 Fluzone Preservative Free Intramuscular Suspension 10:42 :57 FULL STACK WEB DEVELOPER CPT-G0438 Initial Annual Wellness Exam 10:13:55 FULL STACK WEB DEVELOPER CPT-000 Give Appropriate Flu Vaccine 10:44:04 CDT CPT-000 Give Pneumovax 10:44:03 CDT CPT-44211 Port a cath flush 17:04:43 CDT CPT-86676 Prevnar 13 11:19:17 CDT CPT-01638 Fluzone Quadrivalent preservative free (>=3yrs.) 11:19: 17 CDT CPT-44861 Immunization Each Additional Inj 11:19:17 CDT CPT-85387 Immunization Single Admin 11:19:17 CDT CPT-42112 Port a cath flush 13:28:22 CDT CPT-TCMM Transitional Care Mgmt-Moderate 13:40:15 CDT CPT-G0008 Administration of Influenza Virus Vaccine 13:59:20 CDT CPT-87117 Fluzone High-Dose Intramuscular Suspension 13:59:20 CDT CPT-09033 Venipuncture Draw Fee 09:56:19 CDT CPT-OV Office Visit 15:46:10 CDT
--- OUTSIDE RECORDS SUMMARY | 2017-08-25 21:10 | XMS REPORT | Clinical Summary ---
Author Author Admin, [place] Organization [employer] Address Unknown Phone Unavailable Allergies, Adverse Reactions, Alerts Allergy Name Reaction Description Start Date Severity Status Provider ERYTHROMYCIN Stomach cramps Moderate Active Prosper Arenas MD CODEINE Critical Active Maliheh Ziglari MOTOR VEHICLE SALESPERSON DARVOCET Critical Active Maliheh Ziglari MOTOR VEHICLE SALESPERSON LEVAQUIN Critical Active Maliheh Ziglari MOTOR VEHICLE SALESPERSON Conditions or Problems Problem Name Problem Code Onset Date Status Entry Date Provider Comment Standard Description Annotate Diabetes, Type 2 250.00 Resolved 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 mellitus 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, type II [...] type II, uncontrolled 250.02 Active Maliheh Rodrigoglari MOTOR VEHICLE SALESPERSON Diabetes mellitus 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, type [...] with hyperglycemia 250.00 Active 03/21 Maliheh Ziglari MOTOR VEHICLE SALESPERSON Diabetes mellitus 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, type II or unspecified type, not stated as uncontrolled [facility] use of insulin treatment V58.67 Active Luxiheh Rodrigoglari MOTOR VEHICLE SALESPERSON Long-term (current) use of insulin Diabetes mellitus, type II with hypoglycemia 250.80 Active 07/22 Maliheh Ziglari MOTOR VEHICLE SALESPERSON Diabetes mellitus with other specified manifestations, type II or unspecified type, not stated as uncontrolled 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 Maliheh Ziglari MOTOR VEHICLE SALESPERSON Diabetes mellitus with renal manifestations, type II or unspecified type, not stated as uncontrolled Wellness exam V70.0 Active Dee Palmer APRN Routine general medical examination at a health care facility Fitting and adjustment of vascular catheter V58.81 Active 02/06 Dee Palmer APRN Encounter for fitting and adjustment of vascular catheter Unawareness of hypoglycemia in diabetes mellitus, type II 250.80 Active Maliheh Ziglari MOTOR VEHICLE SALESPERSON Diabetes mellitus with other specified manifestations, type [...] 1-2 every 4-6 hrs prn 02/25 HYDROCODONE-ACETAMINOPHEN 94917622048 Active Marina Messina APRN Active ASPIRIN 81 MG ORAL TABLET 1 tablet by mouth daily ASPIRIN 27779497935 No Longer Active Marina Messina APRN Active SIMVASTATIN 80 MG ORAL TABLET 1/2 tablet daily SIMVASTATIN 44932617138 No Longer Active Mekhi Dukes MD Active OMEPRAZOLE 20 MG ORAL CAPSULE DELAYED RELEASE 1 qd OMEPRAZOLE 47675434495 No Longer Active Mekhi Dukes MD Active METOPROLOL TARTRATE 25 MG ORAL TABLET 1/2 tablet twice a day METOPROLOL TARTRATE 03514168935 No Longer Active Mekhi Dukes MD Active LISINOPRIL 5 MG ORAL TABLET 1 daily LISINOPRIL 44929523926 No Longer Active Mekhi Dukes MD Active NOVOLOG FLEXPEN 100 UNIT/ML SUBCUTANEOUS SOLUTION PEN-INJECTOR Take 8 units with each meal, add 1u/50 for blood sugars above 150. INSULIN ASPART 03290987394 Active Moy PARISH Active GABAPENTIN 300 MG ORAL CAPSULE 1 tab BID GABAPENTIN 90572350004 Active Tami Miller RN Active PREDNISONE 20 MG ORAL TABLET Take 2 daily for 3 days and then 1 daily for 3 days PREDNISONE 53095594810 No Longer Active Moy PARISH Active BENZONATATE 200 MG ORAL CAPSULE Take 1 tablet 3 times a day as needed for cough BENZONATATE 20310719580 No Longer Active Prosper Arenas MD Active HYDROCHLOROTHIAZIDE 25 MG ORAL TABLET 1 tablet by mouth daily HYDROCHLOROTHIAZIDE 74649046863 No Longer Active Prosper Arenas MD Active ACCU-CHEK JOANNA PLUS IN VITRO STRIP check blood sugars 5x a day, before each meal and bedtime and 15 minutes after treating a low blood. sugar GLUCOSE BLOOD 52797201326 Active Maliheh Ziglari MOTOR VEHICLE SALESPERSON Active LANTUS SOLOSTAR 100 UNIT/ML SUBCUTANEOUS SOLUTION PEN-INJECTOR Take 40 units at 7-8pm daily INSULIN GLARGINE 49103162013 Active Maliheh Ziglari MOTOR VEHICLE SALESPERSON Active MECLIZINE HCL 25 MG ORAL TABLET 1 daily needed for dizziness 2015 MECLIZINE HCL 38065953167 No Longer Active Maliheh Ziglari MOTOR VEHICLE SALESPERSON Active BENZONATATE 200 MG ORAL CAPSULE 1 tab, 2-3 times a day BENZONATATE 13535308288 No Longer Active Maliheh Ziglari MOTOR VEHICLE SALESPERSON Active HALOPERIDOL 0.5 MG ORAL TABLET one tablet three times a day HALOPERIDOL 42726136379 No Longer Active Maliheh Ziglari MOTOR VEHICLE SALESPERSON Active TRAZODONE HCL 50 MG ORAL TABLET three tablets at bed time TRAZODONE HCL 80779723235 No Longer Active Maliheh Ziglari MOTOR VEHICLE SALESPERSON Active REVLIMID 25 MG ORAL CAPSULE one capsule daily for 21 days then off for 7 days LENALIDOMIDE 80348821728 No Longer Active Maliheh Ziglari MOTOR VEHICLE SALESPERSON Active ZITHROMAX Z-EDDIE 250 MG ORAL TABLET 2 today, then 1 daily for 4 days AZITHROMYCIN 14711046661 No Longer Active Augustina Mata APRN Active NOVOLIN R RELION 100 UNIT/ML INJECTION SOLUTION 30- 40 units each meal sliding scale INSULIN REGULAR HUMAN 70299159833 No Longer Active Maliheh Ziglari MOTOR VEHICLE SALESPERSON Active CALCIUM 500/D 500-200 MG-UNIT ORAL TABLET one tablet daily CALCIUM CARBONATE-VITAMIN D 88562608970 Active Prosper Arenas MD Active HYDROCODONE-ACETAMINOPHEN 5-500 MG ORAL TABLET 1-2 FOUR TIMES A DAY, PRN 2010 HYDROCODONE-ACETAMINOPHEN 78333501120 No Longer Active Prosper Arenas MD Active DOXYCYCLINE HYCLATE 100 MG ORAL CAPSULE take one capsule by mouth twice daily for ten days DOXYCYCLINE HYCLATE 25035190811 No Longer Active Mekhi Dukes MD Active DOXYCYCLINE HYCLATE 100 MG ORAL CAPSULE take one capsule by mouth twice daily for ten days DOXYCYCLINE HYCLATE 100 MG ORAL CAPSULE 5689470 DOXYCYCLINE HYCLATE Inactive HYDROCODONE-ACETAMINOPHEN 5-500 MG ORAL TABLET 1-2 FOUR TIMES A DAY, PRN 2010 HYDROCODONE-ACETAMINOPHEN 5-500 MG ORAL TABLET 735439 HYDROCODONE-ACETAMINOPHEN Inactive NOVOLIN R RELION 100 UNIT/ML INJECTION SOLUTION 30- 40 units each meal sliding scale NOVOLIN R RELION 100 UNIT/ML INJECTION SOLUTION INSULIN REGULAR HUMAN Inactive ZITHROMAX Z-EDDIE 250 MG ORAL TABLET 2 today, then 1 daily for 4 days ZITHROMAX Z-EDDIE 250 MG ORAL TABLET 601832 AZITHROMYCIN Inactive REVLIMID 25 MG ORAL CAPSULE one capsule daily for 21 days then off for 7 days REVLIMID 25 MG ORAL CAPSULE LENALIDOMIDE Inactive TRAZODONE HCL 50 MG ORAL TABLET three tablets at bed time TRAZODONE HCL 50 MG ORAL TABLET 423935 TRAZODONE HCL Inactive HALOPERIDOL 0.5 MG ORAL TABLET one tablet three times a day HALOPERIDOL 0.5 MG ORAL TABLET 397458 HALOPERIDOL Inactive BENZONATATE 200 MG ORAL CAPSULE 1 tab, 2-3 times a day BENZONATATE 200 MG ORAL CAPSULE 707767 BENZONATATE Inactive MECLIZINE HCL 25 MG ORAL TABLET 1 daily needed for dizziness 2015 MECLIZINE HCL 25 MG ORAL TABLET 304621 MECLIZINE HCL Inactive HYDROCHLOROTHIAZIDE 25 MG ORAL TABLET 1 tablet by mouth daily HYDROCHLOROTHIAZIDE 25 MG ORAL TABLET 802703 HYDROCHLOROTHIAZIDE Inactive PREDNISONE 20 MG ORAL TABLET Take 2 daily for 3 days and then 1 daily for 3 days PREDNISONE 20 MG ORAL TABLET 984507 PREDNISONE Inactive LISINOPRIL 5 MG ORAL TABLET 1 daily LISINOPRIL 5 MG ORAL TABLET 097229 LISINOPRIL Inactive METOPROLOL TARTRATE 25 MG ORAL TABLET 1/2 tablet twice a day METOPROLOL TARTRATE 25 MG ORAL TABLET 026099 METOPROLOL TARTRATE Inactive OMEPRAZOLE 20 MG ORAL CAPSULE DELAYED RELEASE 1 qd OMEPRAZOLE 20 MG ORAL CAPSULE DELAYED RELEASE 228449 OMEPRAZOLE Inactive SIMVASTATIN 80 MG ORAL TABLET 1/2 tablet daily SIMVASTATIN 80 MG ORAL TABLET 153547 SIMVASTATIN Inactive ASPIRIN 81 MG ORAL TABLET 1 tablet by mouth daily ASPIRIN 81 MG ORAL TABLET 154662 ASPIRIN Inactive BENZONATATE 200 MG ORAL CAPSULE Take 1 tablet 3 times a day as needed for cough BENZONATATE 200 MG ORAL CAPSULE 483239 BENZONATATE Inactive Immunizations Vaccine Administration Date Value [...] W/DIFF - Chemistry sodium, serum 137 mmol/L [phone]/08/16 carbon dioxide, venous blood 26.3 mmol/L 21.0-32.0 [...] 4.3-6.0 Lab Report: Lipid Panel, [facility]- [facility] Chemistry cholesterol, serum 115 mg/dL [phone]/08/18 triglyceride, serum, fasting 89 mg/dL 30-200 HDL cholesterol, serum 46 mg/dL 32-60 LDL cholesterol, serum 51 mg/dL 0-130 blood glucose 104 mg/dL 65-110 Lab Report: LIPID PANEL- [facility] - Chemistry cholesterol, serum 156 mg/dL [phone]/02/20 HDL cholesterol, serum 52 mg/dL > OR=40 [...] mg/dL Encounters Code Encounter Date Provider Facility CPT-57432 Level 3 Est. Patient 17:11:55 SUPERVISOR CHASSIS [employer]SEMBLY Ismael Gracia MD [facility] CPT-84020 Level 4 Est. Patient 16:29:19 CDT Mekhi Dukes MD [facility] CPT-40348 Level 3 New Patient 17:05:24 CDT Ismael Gracia MD [facility] CPT-95704 Level 2 Est. Patient 15:43:17 CDT Mekhi Dukes MD [facility] CPT-97991 Level 3 Est. Patient 09:30:37 CDT [facility] Level 3 Est. Patient 10:00:14 CDT Mekhi Dukes MD [facility] CPT-20429 Level 3 Est. Patient 12:24:09 CDT [facility] CPT-97388 Level 3 Est. Patient 14:34:57 CDT Prosper Arenas MD [facility] CPT-94212 Level 3 New Patient 15:44:53 SUPERVISOR CHASSIS ASSEMBLY Mekhi Dukes MD [facility] CPT-97144 Level 3 Est. Patient 14:53:34 SUPERVISOR CHASSIS ASSEMBLY Prosper Arenas MD [facility] CPT-75913 Level 4 Est. Patient 10:05:41 SUPERVISOR CHASSIS ASSEMBLY [facility] C[facility]-94577 Level 3 Est. Patient 11:18:32 CDT [facility] CPT-41562 Level 4 Est. Patient 11:05:10 CDT [facility] CPT-28825 Level 3 Est. Patient 11:08:27 SUPERVISOR CHASSIS ASSEMBLY Moy Garcia [facility] CPT-69226 Level 4 Est. Patient 10:43:59 CDT Prosper Arenas MD [facility] CPT-84572 Level 3 Est. Patient 10:51:19 CDT Moy Garcia [facility] CPT-70054 Level 3 Est. Patient 10:20:31 CDT Moy Garcia [facility] CPT-59668 Level 3 Est. [facility]:08:45 [facility] CPT-37691 Level 2 Est. Patient 13:54:36 CDT Augustina Mata APRN [facility] CPT-22079 Level 3 Est. Patient 12:00:42 CDT Prosper Arenas MD [facility] CPT-49666 Level 3 Est. Patient 09:57:28 SUPERVISOR CHASSIS ASSEMBLY Moy Garcia [facility] CPT-70994 Level 3 Est. Patient 11:41:19 SUPERVISOR CHASSIS ASSEMBLY Luxshoaib Garcia [facility] CPT-68252 Level 4 Est. Patient 17:07:35 SUPERVISOR CHASSIS ASSEMBLY Moy Garcia [facility] CPT-03625 Level 5 Est. Patient 14:33:32 CDT Moy Garcia [facility] CPT-41180 Level 3 Est. Patient 12:25:35 CDT Prosper Arenas MD [facility] Procedures Code Procedure Name Date Entry Date Standard Description CPT-80225 Postop F/U Visit 17:20:20 SUPERVISOR CHASSIS [employer]SEMBLY CPT-G0439 [facility] Annual Wellness Exam 08:39:41 SUPERVISOR CHASSIS ASSEMBLY CPT-000 Give Appropriate Flu Vaccine 10:13:55 SUPERVISOR [employer]SEMBLY CPT-000 Give Immunizations Due 10:13:55 SUPERVISOR [employer]SEMBLY CPT-28013 HGBA1C - LAB USE ONLY 09:42:47 SUPERVISOR [employer]ASS[employer]SEMBLY CPT-45098 TPSA - LAB USE ONLY 09:42:46 SUPERVISOR [employer]ASSIS ASSEMBLY CPT-66648 Venipuncture Draw Fee 09:42:46 SUPERVISOR CHASSIS ASSEMBLY CPT-57424 Port a cath flush 13:33:18 SUPERVISOR CHASSIS ASSEMBLY CPT-64473 First Vx - Ix admin for Medicare patients 10:42:57 SUPERVISOR CHASSIS ASSEMBLY CPT-80874 Fluzone Preservative Free Intramuscular Suspension 10:42 :57 SUPERVISOR CHASSIS ASSEMBLY CPT-G0438 Initial Annual Wellness Exam 10:13:55 SUPERVISOR CHASSIS ASSEMBLY CPT-000 Give Appropriate Flu Vaccine 10:44:04 CDT CPT-000 Give Pneumovax 10:44:03 CDT CPT-44208 Port a cath flush 17:04:43 CDT CPT-89380 Prevnar 13 11:19:17 CDT CPT-94121 Fluzone Quadrivalent preservative free (>=3yrs.) 11:19: 17 CDT CPT-33414 Immunization Each Additional Inj 11:19:17 CDT CPT-18823 Immunization Single Admin 11:19:17 CDT CPT-44209 Port a cath flush 13:28:22 CDT CPT-TCMM Transitional Care Mgmt-Moderate 13:40:15 CDT CPT-G0008 Administration of Influenza Virus Vaccine 13:59:20 CDT CPT-00664 Fluzone High-Dose Intramuscular Suspension 13:59:20 CDT CPT-87721 Venipuncture Draw Fee 09:56:19 CDT CPT-OV Office Visit 15:46:10 CDT
--- OUTSIDE RECORDS SUMMARY | 2017-08-25 21:11 | XMS REPORT ---
Author Author [email or web address] [facility] Medical Staff Organization [facility] Address [address] [place] [address] Phone [phone] Summary purpose TRANSITION OF CARE AUTO GENERATION [...] diagnostic tests and/or laboratory data RESULTS Chemistry [id number]:23:00 Result Normal Range Units Sodium 134 134-145 mEq/l Potassium 3.8 3.5-5.1 mEq/l Chloride L 97 98-107 mEq/l CO2 27.8 22-28 mEq/l Glucose H 199 70-105 mg/dl BUN 16 7-18 mg/dl Creatinine H 1.86 0.6-1.3 mg/dl Calcium 8.5 8.4-10.2 mg/dl TP - Total Protein 7.4 6.0-8.3 g/dl Albumin 3.5 3.5-5 g/dl Bilirubin - Total 0.5 0.1-1.0 mg/dl AST H 106 10-42 IU/L ALT H 148 12-65 IU/L ALP 81 39-107 IU/L Osmolality L 275.0 280-300 mOsm/L Albumin/Globulin Ratio 0.9 0-8 Anion GAP 9.2 8-16 BUN/Creatinine Ratio L 8.6 10-20 Estimated GFR L 44 >=60 mL/min/1.7 Hematology [id number]:23:00 Result Normal Range Units WBC 7.6 4.8-10.8 103/uL RBC 4.9 4.7-6.1 106/uL HGB 15.6 13.0-18.0 g/dl HCT 44.9 41.9-52.0 % MCV 91.6 80-94 FL MCH H 31.8 27-31 pg MCHC 34.7 33-37 g/dl RDW 12.5 11.5-15.5 % PLT 209 130-400 103/uL MPV 10.3 7.3-10.4 FL Neutro % 61.8 40-70 % Lymph % 24.3 20-40 % [place] % H 10.6 0-10.0 % Eos % 1.5 0-7.0 % Baso % 1.1 0-2 % Neutro # 4.7 1.5-7.5 103/uL Lymph # 1.8 0.9-4.0 103/uL [place] # 0.8 0-0.8 103/uL Eos # 0.1 0-0.6 103/uL Baso # 0.1 0-0.1 103/uL Radiology Results [id number]:23:00 Result Normal Range Units MPV 10.3 7.3-10.4 FL History of procedures Procedure Code Code Type Description Date Performed Performing Physician 31992 CPT-4 COMPLETE CBC W/AUTO DIFF WBC 08-06-2015 HENRIK RIGGINS 60715 CPT-4 COMPREHEN METABOLIC PANEL 08-06-2015 HENRIK RIGGINS 12397 CPT-4 DRAW BLOOD OFF VENOUS DEVICE 08-06-2015 HENRIK RIGGINS J1642 CPT-4 INJ HEPARIN SODIUM PER 10 U 08-06-2015 HENRIK RIGGINS Functional status No functional or [...]
--- OUTSIDE RECORDS SUMMARY | 2017-08-25 21:11 | XMS REPORT | Clinical Summary ---
Author Author Admin, IWONA Organization [employer] Address Unknown Phone Unavailable Allergies, Adverse Reactions, Alerts Allergy Name Reaction Description Start Date Severity Status Provider ERYTHROMYCIN Stomach cramps Moderate Active Prosper Arenas MD CODEINE Critical Active Maliheh Ziglari CONVENIENCE STORE CLERK DARVOCET Critical Active Maliheh Ziglari CONVENIENCE STORE CLERK LEVAQUIN Critical Active Maliheh Ziglari CONVENIENCE STORE CLERK Conditions or Problems Problem Name Problem Code Onset Date Status Entry Date Provider Comment Standard Description Annotate Diabetes, Type 2 250.00 Resolved 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, type II [...] type II, uncontrolled 250.02 Active Maliheh Rodrigoglari CONVENIENCE STORE CLERK Diabetes mellitus 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, type [...] with hyperglycemia 250.00 Active 03/21 Maliheh Ziglari CONVENIENCE STORE CLERK Diabetes mellitus 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, type II or unspecified type, not stated as uncontrolled senior living use of insulin treatment V58.67 Active Luxiheh Rodrigoglari CONVENIENCE STORE CLERK Long-term (current) use of insulin Diabetes mellitus, type II with hypoglycemia 250.80 Active 07/22 Maliheh Ziglari CONVENIENCE STORE CLERK Diabetes mellitus with other specified manifestations, type II or unspecified type, not stated as uncontrolled 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 Maliheh Ziglari CONVENIENCE STORE CLERK Diabetes mellitus with renal manifestations, type II or unspecified type, not stated as uncontrolled Wellness exam V70.0 Active Dee Palmer APRN Routine general medical examination at a health care facility Fitting and adjustment of vascular catheter V58.81 Active 02/06 Dee Palmer APRN Encounter for fitting and adjustment of vascular catheter Unawareness of hypoglycemia in diabetes mellitus, type II 250.80 Active Maliheh Rodrigoglari CONVENIENCE STORE CLERK Diabetes mellitus with other specified manifestations, type [...] specified as recurrent) Gastritis Inactive Maliheh Jose CONVENIENCE STORE CLERK Unspecified gastritis and gastroduodenitis, 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 [...] twice daily, if needed for cough DEXTROMETHORPHAN-GUAIFENESIN 33758000082 Active Dee Palmer APRN Active PREDNISONE 20 MG ORAL TABLET 2 tabs daily for 4 days, 1 tab daily for 4 days, 1/2 tab daily for 4 days PREDNISONE 57702619250 Active Dee Palmer APRN Active ASPIRIN 81 MG ORAL TABLET 1 po qd ASPIRIN 97302041661 Active Dee Palmer APRN Active CALCIUM 500/D 500-200 MG-UNIT ORAL TABLET one tablet daily CALCIUM CARBONATE-VITAMIN D 30112894497 No Longer Active Dee Palmer APRN Active HYDROCODONE-ACETAMINOPHEN 7.5-325 MG ORAL TABLET 1-2 every 4-6 hrs prn 02/25 HYDROCODONE-ACETAMINOPHEN 72460256081 Active Marina Messina APRN Active ASPIRIN 81 MG ORAL TABLET 1 tablet by mouth daily ASPIRIN 48917511754 No Longer Active Marina Messina APRN Active SIMVASTATIN 80 MG ORAL TABLET 1/2 tablet daily SIMVASTATIN 87298212897 No Longer Active Mekhi Dukes MD Active OMEPRAZOLE 20 MG ORAL CAPSULE DELAYED RELEASE 1 qd OMEPRAZOLE 72935852085 No Longer Active Mekhi Dukes MD Active METOPROLOL TARTRATE 25 MG ORAL TABLET 1/2 tablet twice a day METOPROLOL TARTRATE 11542131969 No Longer Active Mekhi Dukes MD Active LISINOPRIL 5 MG ORAL TABLET 1 daily LISINOPRIL 06868908742 No Longer Active Mekhi Dukes MD Active NOVOLOG FLEXPEN 100 UNIT/ML SUBCUTANEOUS SOLUTION PEN-INJECTOR Take 8 units with each meal, add 1u/50 for blood sugars above 150. INSULIN ASPART 02543923534 Active Moy PARISH Active GABAPENTIN 300 MG ORAL CAPSULE 1 tab BID GABAPENTIN 03330217054 Active Tami Miller RN Active PREDNISONE 20 MG ORAL TABLET Take 2 daily for 3 days and then 1 daily for 3 days PREDNISONE 50687873085 No Longer Active Moy Wallaceglari JEM Active BENZONATATE 200 MG ORAL CAPSULE Take 1 tablet 3 times a day as needed for cough BENZONATATE 45287793189 No Longer Active Prosper Arenas MD Active HYDROCHLOROTHIAZIDE 25 MG ORAL TABLET 1 tablet by mouth daily HYDROCHLOROTHIAZIDE 44888600116 No Longer Active Prosper Arenas MD Active ACCU-CHEK JOANNA PLUS IN VITRO STRIP check blood sugars 5x a day, before each meal and bedtime and 15 minutes after treating a low blood. sugar GLUCOSE BLOOD 86951484124 Active Moy Wallaceglrex DURANTP Active LANTUS SOLOSTAR 100 UNIT/ML SUBCUTANEOUS SOLUTION PEN-INJECTOR Take 40 units at 7-8pm daily INSULIN GLARGINE 45777029032 Active Moy Wallaceglrex CONVENIENCE STORE CLERK Active MECLIZINE HCL 25 MG ORAL TABLET 1 daily needed for dizziness 2015 MECLIZINE HCL 66163810324 No Longer Active Maliheh Ziglari CONVENIENCE STORE CLERK Active BENZONATATE 200 MG ORAL CAPSULE 1 tab, 2-3 times a day BENZONATATE 08170900994 No Longer Active Maleh Ziglari CONVENIENCE STORE CLERK Active HALOPERIDOL 0.5 MG ORAL TABLET one tablet three times a day HALOPERIDOL 81472669065 No Longer Active Maliheh Ziglari CONVENIENCE STORE CLERK Active TRAZODONE HCL 50 MG ORAL TABLET three tablets at bed time TRAZODONE HCL 66733602851 No Longer [facility] Zigl[facility] CONVENIENCE STORE CLERK Active REVLIMID 25 MG ORAL CAPSULE one capsule daily for 21 days then off for 7 days LENALIDOMIDE 32220004926 No Longer Active Maleh Ziglari CONVENIENCE STORE CLERK Active ZITHROMAX Z-EDDIE 250 MG ORAL TABLET 2 today, then 1 daily for 4 days AZITHROMYCIN 15880442197 No Longer Active Augustina Rangelann HEARING CONSULTANT Active NOVOLIN R RELION 100 UNIT/ML INJECTION SOLUTION 30- 40 units each meal sliding scale INSULIN REGULAR HUMAN 78036090290 No Longer Active [facility] Ziglari CONVENIENCE STORE CLERK Active HYDROCODONE-ACETAMINOPHEN 5-500 MG ORAL TABLET 1-2 FOUR TIMES A DAY, PRN 2010 HYDROCODONE-ACETAMINOPHEN 71215762167 No Longer Active Prosper Arenas MD Active DOXYCYCLINE HYCLATE 100 MG ORAL CAPSULE take one capsule by mouth twice daily for ten days DOXYCYCLINE HYCLATE 84720465404 No Longer Active Mekhi Dukes MD Active DOXYCYCLINE HYCLATE 100 MG ORAL CAPSULE take one capsule by mouth twice daily for ten days DOXYCYCLINE HYCLATE 100 MG ORAL CAPSULE 4963766 DOXYCYCLINE HYCLATE Inactive HALOPERIDOL 0.5 MG ORAL TABLET one tablet three times a day HALOPERIDOL 0.5 MG ORAL TABLET 638214 HALOPERIDOL Inactive HYDROCHLOROTHIAZIDE 25 MG ORAL TABLET 1 tablet by mouth daily HYDROCHLOROTHIAZIDE 25 MG ORAL TABLET 090533 HYDROCHLOROTHIAZIDE Inactive PREDNISONE 20 MG ORAL TABLET Take 2 daily for 3 days and then 1 daily for 3 days PREDNISONE 20 MG ORAL TABLET 889392 PREDNISONE Inactive TRAZODONE HCL 50 MG ORAL TABLET three tablets at bed time TRAZODONE HCL 50 MG ORAL TABLET 723069 TRAZODONE HCL Inactive ASPIRIN 81 MG ORAL TABLET 1 tablet by mouth daily ASPIRIN 81 MG ORAL TABLET 009502 ASPIRIN Inactive LISINOPRIL 5 MG ORAL TABLET 1 daily LISINOPRIL 5 MG ORAL TABLET 073965 LISINOPRIL Inactive MECLIZINE HCL 25 MG ORAL TABLET 1 daily needed for dizziness 2015 MECLIZINE HCL 25 MG ORAL TABLET 063001 MECLIZINE HCL Inactive HYDROCODONE-ACETAMINOPHEN 5-500 MG ORAL TABLET 1-2 FOUR TIMES A DAY, PRN 2010 HYDROCODONE-ACETAMINOPHEN 5-500 MG ORAL TABLET 111788 HYDROCODONE-ACETAMINOPHEN Inactive SIMVASTATIN 80 MG ORAL TABLET 1/2 tablet daily SIMVASTATIN 80 MG ORAL TABLET 167568 SIMVASTATIN Inactive BENZONATATE 200 MG ORAL CAPSULE Take 1 tablet 3 times a day as needed for cough BENZONATATE 200 MG ORAL CAPSULE 544391 BENZONATATE Inactive BENZONATATE 200 MG ORAL CAPSULE 1 tab, 2-3 times a day BENZONATATE 200 MG ORAL CAPSULE 908396 BENZONATATE Inactive OMEPRAZOLE 20 MG ORAL CAPSULE DELAYED RELEASE 1 qd OMEPRAZOLE 20 MG ORAL CAPSULE DELAYED RELEASE 411893 OMEPRAZOLE Inactive ZITHROMAX Z-EDDIE 250 MG ORAL TABLET 2 today, then 1 daily for 4 days ZITHROMAX Z-EDDIE 250 MG ORAL TABLET 288685 AZITHROMYCIN Inactive CALCIUM 500/D 500-200 MG-UNIT ORAL TABLET one tablet daily CALCIUM 500/D 500-200 MG-UNIT ORAL TABLET CALCIUM CARBONATE-VITAMIN D Inactive METOPROLOL TARTRATE 25 MG ORAL TABLET 1/2 tablet twice a day METOPROLOL TARTRATE 25 MG ORAL TABLET 767186 METOPROLOL TARTRATE Inactive REVLIMID 25 MG ORAL CAPSULE one capsule daily for 21 days then off for 7 days REVLIMID 25 MG ORAL CAPSULE LENALIDOMIDE Inactive NOVOLIN R RELION 100 UNIT/ML INJECTION SOLUTION 30- 40 units each meal sliding scale NOVOLIN R RELION 100 UNIT/ML INJECTION SOLUTION INSULIN REGULAR HUMAN Inactive Immunizations Vaccine Administration [...] W/DIFF - Chemistry sodium, serum 137 mmol/L 491-052 3504/08/16 carbon dioxide, venous blood 26.3 mmol/L 21.0-32.0 [...] LABS - Chemistry cholesterol, serum 115 mg/dL 853-296 5163/08/18 triglyceride, serum, fasting 89 mg/dL 30-200 HDL cholesterol, serum 46 mg/dL 32-60 LDL cholesterol, serum 51 mg/dL 0-130 blood glucose 104 mg/dL 65-110 Lab Report: LIPID PANEL- REPOWER LAB - Chemistry cholesterol, serum 156 mg/dL 522-655 9196/02/20 HDL cholesterol, serum 52 mg/dL > OR=40 [...] mg/dL Encounters Code Encounter Date Provider Facility CPT-07212 Level 3 Est. Patient 14:09:25 FERN GATHERER Dee Palmer [facility] CPT-56985 Level 3 Est. Patient 10:53:32 FERN GATHERER Luxcarissashoaib Jose [facility] CPT-98233 Level 3 Est. Patient 17:11:55 FERN GATHERER Ismael Gracia MD [facility] CPT-33155 Level 4 Est. Patient 16:29:19 CDT Mekhi Dukes MD [facility] CPT-77361 Level 3 New Patient 17:05:24 CDT Ismael Gracia MD [facility] CPT-77889 Level 2 Est. Patient 15:43:17 CDT Mekhi Dukes MD [facility] CPT-07640 Level 3 Est. Patient 09:30:37 CDT Moy Jose [facility]-50868 Level 3 Est. Patient 10:00:14 CDT Mekhi Dukes MD [facility] CPT-96587 Level 3 Est. Patient 12:24:09 [facility]-77921 Level 3 Est. Patient 14:34:57 CDT Prosper Arenas MD [facility] CPT-67743 Level 3 New Patient 15:44:53 FERN GATHERER Mekhi Dukes MD [facility] CPT-60174 Level 3 Est. Patient 14:53:34 FERN GATHERER Prosper Arenas MD [facility] CPT-28515 Level 4 Est. Patient 10:05:41 FERN GATHERER Luxcarissashoaib Jose [facility] CPT-17198 Level 3 Est. Patient 11:18:32 CDT Moy Jose [facility] CPT-48324 Level 4 Est. Patient 11:05:10 [facility] CPT-86307 Level 3 Est. Patient 11:08:27 FERN GATHERER [facility]papo Garcia [facility] CPT-39623 Level 4 Est. Patient 10:43:59 CDT Prosper Arenas MD [facility] CPT-27701 Level 3 Est. Patient 10:51:19 CDT Moy Garcia [facility] CPT-84818 Level 3 Est. Patient 10:20:31 CDT Moy Garcia [facility] CPT-09743 Level 3 Est. Patient 17:08:45 CDT Luxshoaib Garcia [facility] CPT-08551 Level 2 Est. Patient 13:54:36 CDT Augustina Mata BESSY [facility] CPT-87335 Level 3 Est. Patient 12:00:42 CDT Prosper Arenas MD [facility] CPT-54013 Level 3 Est. Patient 09:57:28 FERN GATHERER [facility] Level 3 Est. Patient 11:41:19 FERN GATHERER [facility] CPT-45410 Level 4 Est. Patient 17:07:35 FERN GATHERER [facility] CPT-20064 Level 5 Est. Patient 14:33:32 CDT [facility] CPT-03842 Level 3 Est. Patient 12:25:35 CDT Prosper Arenas MD [facility] Procedures Code Procedure Name Date Entry Date Standard Description CPT-47143 Chest, 2 views 14:17:20 FERN GATHERER CPT-62242 Postop F/U Visit 14:44:45 FERN GATHERER CPT-99840 Postop F/U Visit 17:20:20 FERN GATHERER CPT-G0439 [facility] Annual Wellness Exam 08:39:41 FERN GATHERER CPT-000 Give Appropriate Flu Vaccine 10:13:55 FERN GATHERER CPT-000 Give Immunizations Due 10:13:55 FERN GATHERER CPT-08451 HGBA1C - LAB USE ONLY 09:42:47 FERN GATHERER CPT-82590 TPSA - LAB USE ONLY 09:42:46 FERN GATHERER CPT-01009 Venipuncture Draw Fee 09:42:46 FERN GATHERER CPT-69814 Port a cath flush 13:33:18 FERN GATHERER CPT-93455 First Vx - Ix admin for Medicare patients 10:42:57 FERN GATHERER CPT-76381 Fluzone Preservative Free Intramuscular Suspension 10:42 :57 FERN GATHERER CPT-G0438 Initial Annual Wellness Exam 10:13:55 FERN GATHERER CPT-000 Give Appropriate Flu Vaccine 10:44:04 CDT CPT-000 Give Pneumovax 10:44:03 CDT CPT-01388 Port a cath flush 17:04:43 CDT CPT-50320 Prevnar 13 11:19:17 CDT CPT-61048 Fluzone Quadrivalent preservative free (>=3yrs.) 11:19: 17 CDT CPT-11273 Immunization Each Additional Inj 11:19:17 CDT CPT-82008 Immunization Single Admin 11:19:17 CDT CPT-49736 Port a cath flush 13:28:22 CDT CPT-TCMM Transitional Care Mgmt-Moderate 13:40:15 CDT CPT-G0008 Administration of Influenza Virus Vaccine 13:59:20 CDT CPT-93142 Fluzone High-Dose Intramuscular Suspension 13:59:20 CDT CPT-86599 Venipuncture Draw Fee 09:56:19 CDT CPT-OV Office Visit 15:46:10 CDT
--- OUTSIDE RECORDS SUMMARY | 2017-08-25 21:12 | XMS REPORT | Clinical Summary ---
Author Author Admin, IWONA Organization [employer] Address Unknown Phone Unavailable Allergies, Adverse Reactions, Alerts Allergy Name Reaction Description Start Date Severity Status Provider ERYTHROMYCIN Stomach cramps Moderate Active Prosper Arenas MD CODEINE Critical Active Maliheh Ziglari SUPERVISOR [employer] DARVOCET Critical Active Maliheh Ziglari SUPERVISOR [employer] LEVAQUIN Critical Active Maliheh Ziglari SUPERVISOR [employer] Conditions or Problems Problem Name Problem Code [...] type II, uncontrolled 250.02 Active Maliheh Ziglari SUPERVISOR [employer] Diabetes mellitus 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, type [...] with hyperglycemia 250.00 Active 03/21 Maliheh Ziglari SUPERVISOR [employer] Diabetes mellitus 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, type II or unspecified type, not stated as uncontrolled 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 V58.67 Active Maliheh Ziglari SUPERVISOR [employer] Long-term (current) use of insulin Diabetes mellitus, type II with hypoglycemia 250.80 Active 07/22 Maliheh Ziglari SUPERVISOR [employer] Diabetes mellitus with other specified manifestations, type II or unspecified type, not stated as uncontrolled 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 INSULIN GLARGINE 86964183055 Active Maliheh Ziglari SUPERVISOR [employer] Active MECLIZINE HCL 25 MG TABS 1 daily needed for dizziness MECLIZINE HCL 16395929699 No Longer Active Maliheh Ziglari SUPERVISOR [employer] Active ACCU-CHEK JOANNA PLUS STRP check blood sugars 3x a day GLUCOSE BLOOD 65790846124 Active Maliheh Ziglari SUPERVISOR [employer] Active NOVOLOG FLEXPEN 100 UNIT/ML SOPN Take 25 units with each meal, add 2u/50 for blood sugars above 150. INSULIN ASPART 23396083762 Active [facility] Ziglari SUPERVISOR [employer] Active BENZONATATE 200 MG CAPS 1 tab, 2-3 times a day BENZONATATE 83674745445 No Longer Active [facility] Ziglari SUPERVISOR [employer] Active HALOPERIDOL 0.5 MG TABS one tablet three times a day HALOPERIDOL 10577329639 No Longer Active [facility] Ziglari SUPERVISOR [employer] Active TRAZODONE HCL 50 MG TAB three tablets at bed time TRAZODONE HCL 12675413870 No Longer Active [facility] Ziglari SUPERVISOR [employer] Active REVLIMID 25 MG CAPS one capsule daily for 21 days then off for 7 days 2014 LENALIDOMIDE 11717724712 No Longer Active [facility] Ziglari SUPERVISOR [employer] Active ZITHROMAX Z-EDDIE 250 MG TABS 2 today, then 1 daily for 4 days 2014 AZITHROMYCIN 34058538991 No Longer Active Augustina Mata REMOTELY PILOTED VEHICLE CONTROLLER Active NOVOLIN R RELION 100 UNIT/ML INJ SOLN 30- 40 units each meal sliding scale INSULIN REGULAR HUMAN 18313745087 No Longer Active Luxshoaib Wlalaceglari SUPERVISOR [employer] Active LISINOPRIL 5 MG TABS 1 daily LISINOPRIL 73015810257 Active Prosper Arenas MD Active CALCIUM 500/D 500-200 MG-UNIT TABS one tablet daily CALCIUM CARBONATE- VITAMIN D 66121152751 Active Prosper Arenas MD Active HYDROCHLOROTHIAZIDE 25 MG TABS 1 tablet by mouth daily HYDROCHLOROTHIAZIDE 35932815729 Active Prosper Arenas MD Active HYDROCODONE-ACETAMINOPHEN 5-500 MG TABS 1-2 FOUR TIMES A DAY, PRN HYDROCODONE-ACETAMINOPHEN 02551629750 No Longer Active Porsper Arenas MD Active SIMVASTATIN 80 MG TABS 1/2 tablet daily SIMVASTATIN 89992204954 Active Prosper Arenas MD Active METOPROLOL TARTRATE 25 MG TABS 1/2 tablet twice a day METOPROLOL TARTRATE 76354977259 Active Prosper Arenas MD Active ASPIRIN 81 MG TAB 1 tablet by mouth daily ASPIRIN 62772157923 Active Prosper Arenas MD Active OMEPRAZOLE 20 MG CPDR 1 qd OMEPRAZOLE 61510182180 Active DARCIE Miller Active DOXYCYCLINE HYCLATE 100 MG CAPS take one capsule by mouth twice daily for ten days DOXYCYCLINE HYCLATE 13653606436 No Longer Active Mekhi Dukes MD Active DOXYCYCLINE HYCLATE 100 MG CAPS take one capsule by mouth twice daily for ten days DOXYCYCLINE HYCLATE 100 MG CAPS 5235035 DOXYCYCLINE HYCLATE Inactive HYDROCODONE-ACETAMINOPHEN 5-500 MG TABS [...] days 2014 ZITHROMAX Z-EDDIE 250 MG TABS 0816730 AZITHROMYCIN Inactive REVLIMID 25 MG CAPS one capsule daily for 21 days then off for 7 days 2014 REVLIMID 25 MG CAPS LENALIDOMIDE Inactive TRAZODONE HCL 50 MG TAB three tablets at bed time TRAZODONE HCL 50 MG TAB 530095 TRAZODONE HCL Inactive HALOPERIDOL 0.5 MG TABS one tablet three times a day HALOPERIDOL 0.5 MG TABS 440679 HALOPERIDOL Inactive BENZONATATE 200 MG CAPS 1 tab, 2-3 times a day BENZONATATE 200 MG CAPS 030935 BENZONATATE Inactive MECLIZINE HCL 25 MG TABS 1 daily needed for dizziness MECLIZINE HCL 25 MG TABS 257731 MECLIZINE HCL Inactive Immunizations Vaccine Administration Date [...] E&M - 3141-9 185 [lb_av] Weight Measured Diagnostic Results Date Name Value Unit Range Description Lab Report: CBC, Basic Metabolic Panel, HGBA1C - Chemistry sodium, serum 137 mmol/L 159-489 5575/10/23 potassium, serum 3.5 mmol/L 3.5-5.2 chloride, serum 100 mmol/L 98-107 carbon dioxide, venous blood 29.5 mmol/L 21.0-32.0 blood glucose 129 mg/dL 65-110 calcium, serum 8.8 mg/dL 8.5-10.1 urea nitrogen, blood 23 mg/dL 7-18 creatinine, serum 1.71 mg/dL 0.55-1.30 hemoglobin A1C, blood, as % of total hemoglobin 7.7 % 4.3-6.0 Lab Report: CBC, Basic Metabolic Panel, HGBA1C - Hematology mean corpuscular hemoglobin, RBC 33.6 pg 27.0-31.2 mean corpuscular hemoglobin concentration, RBC 34.2 G/DL % 31.8- 35.4 red blood cell distribution width 14.0 % 11.6-14.8 platelet count 184 10^3/MM^3 10*3/mm3 694-091 6494/10/23 mean corpuscular volume, RBC 98 fL 80-97 hematocrit, blood 46.5 % 41.0-53.0 hemoglobin, blood 15.9 g/dL 13.5-17.5 erythrocyte (RBC) count 4.73 10^6/MM^3 10*6/mm3 4.69-6.13 leukocyte count, blood 9.0 10^3/MM^3 10*3/mm3 4.6-10.2 Office Visit: Diabetes Visit - Chemistry cholesterol, [...] mg/dL Encounters Code Encounter Date Provider Facility CPT-58955 Level 3 Est. Patient 11:18:32 CDT Moy Garcia [facility] CPT-37551 Level 4 Est. Patient 11:05:10 CDT [facility] Level 3 Est. Patient 11:08:27 [facility] 4 Est. Patient 10:43:59 CDT Prosper Arenas MD [facility] CPT-04173 Level 3 Est. Patient 10:51:19 [facility] Level 3 Est. Patient 10:20:31 CDT [facility]18 Level 3 Est. Patient 17:08:45 CDT [facility]-56566 Level 2 Est. Patient 13:54:36 CDT Augustina Mata APRN [facility] CPT-14777 Level 3 Est. Patient 12:00:42 CDT Prosper Arenas MD [facility] CPT-77394 Level 3 Est. Patient 09:57:28 [facility] Level 3 Est. Patient 11:41:19 [facility] NURSE [facility]89 Level 4 Est. Patient 17:07:35 EDUCATION NURSE [facility] CPT-83143 Level 5 Est. Patient 14:33:32 CDT [facility]-76057 Level 3 Est. Patient 12:25:35 CDT Prosper Arenas MD [facility] Procedures Code Procedure Name Date Entry Date Standard Description CPT-000 Give Appropriate Flu Vaccine 10:44:04 CDT CPT-000 Give Pneumovax 10:44:03 CDT CPT-18526 Port a cath flush 17:04:43 CDT CPT-14944 Prevnar 13 11:19:17 CDT CPT-81308 Fluzone Quadrivalent preservative free (>=3yrs.) 11:19: 17 CDT CPT-80401 Immunization Each Additional Inj 11:19:17 CDT CPT-93486 Immunization Single Admin 11:19:17 CDT CPT-33796 Port a cath flush 13:28:22 CDT CPT-TCMM Transitional Care Mgmt-Moderate 13:40:15 CDT CPT-G0008 Administration of Influenza Virus Vaccine 13:59:20 CDT CPT-15038 Fluzone High-Dose Intramuscular Suspension 13:59:20 CDT CPT-99425 Venipuncture Draw Fee 09:56:19 CDT CPT-OV Office Visit 15:46:10 CDT
--- OUTSIDE RECORDS SUMMARY | 2017-08-25 21:12 | XMS REPORT | Clinical Summary ---
Author Author Admin, IWONA Organization [employer] Address Unknown Phone Unavailable Allergies, Adverse Reactions, Alerts Allergy Name Reaction Description Start Date Severity Status Provider ERYTHROMYCIN Stomach cramps Moderate Active Prosper Arenas MD CODEINE Critical Active Maliheh Ziglari INSPECTOR AND HAND PACKAGER DARVOCET Critical Active Maliheh Ziglari INSPECTOR AND HAND PACKAGER LEVAQUIN Critical Active Maliheh Ziglari INSPECTOR AND HAND PACKAGER Conditions or Problems Problem Name Problem Code Onset Date Status Entry Date Provider Comment Standard Description Annotate Diabetes, Type 2 250.00 Resolved Tami Miller commercial intern mellitus 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, type II [...] type II, uncontrolled 250.02 Active Maliheh Rodrigoglari INSPECTOR AND HAND PACKAGER Diabetes mellitus 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, type [...] with hyperglycemia 250.00 Active 03/21 Maliheh Ziglari INSPECTOR AND HAND PACKAGER Diabetes mellitus 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, type II or unspecified type, not stated as uncontrolled senior care use of insulin treatment V58.67 Active Luxiheh Rodrigoglari INSPECTOR AND HAND PACKAGER Long-term (current) use of insulin Diabetes mellitus, type II with hypoglycemia 250.80 Active 07/22 Maliheh Ziglari INSPECTOR AND HAND PACKAGER Diabetes mellitus with other specified manifestations, type II or unspecified type, not stated as uncontrolled 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 Maliheh Ziglari INSPECTOR AND HAND PACKAGER Diabetes mellitus with renal manifestations, type II or unspecified type, not stated as uncontrolled Wellness exam V70.0 Active Dee Palmer APRN Routine general medical examination at a health care facility Fitting and adjustment of vascular catheter V58.81 Active 02/06 Dee Palmer APRN Encounter for fitting and adjustment of vascular catheter Unawareness of hypoglycemia in diabetes mellitus, type II 250.80 Active Maliheh Ziglari INSPECTOR AND HAND PACKAGER Diabetes mellitus with other specified manifestations, type [...] specified as recurrent) Gastritis Active Maliheh Ziglari INSPECTOR AND HAND PACKAGER Unspecified gastritis and gastroduodenitis, 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 [...] 1-2 every 4-6 hrs prn 02/25 HYDROCODONE-ACETAMINOPHEN 72722235362 Active Marina Messina APRN Active ASPIRIN 81 MG ORAL TABLET 1 tablet by mouth daily ASPIRIN 98398100410 No Longer Active Marina Messina APRN Active SIMVASTATIN 80 MG ORAL TABLET 1/2 tablet daily SIMVASTATIN 93840833214 No Longer Active Mekhi Dukes MD Active OMEPRAZOLE 20 MG ORAL CAPSULE DELAYED RELEASE 1 qd OMEPRAZOLE 27423044318 No Longer Active Mekhi Dukes MD Active METOPROLOL TARTRATE 25 MG ORAL TABLET 1/2 tablet twice a day METOPROLOL TARTRATE 96790182849 No Longer Active Mekhi Dukes MD Active LISINOPRIL 5 MG ORAL TABLET 1 daily LISINOPRIL 37775699849 No Longer Active Mekhi Dukse MD Active NOVOLOG FLEXPEN 100 UNIT/ML SUBCUTANEOUS SOLUTION PEN-INJECTOR Take 8 units with each meal, add 1u/50 for blood sugars above 150. INSULIN ASPART 34016779728 Active Malpapo DURANTP Active GABAPENTIN 300 MG ORAL CAPSULE 1 tab BID GABAPENTIN 40428827728 Active Tami Miller RN Active PREDNISONE 20 MG ORAL TABLET Take 2 daily for 3 days and then 1 daily for 3 days PREDNISONE 68765181483 No Longer Active Maliheh Ziglari INSPECTOR AND HAND PACKAGER Active BENZONATATE 200 MG ORAL CAPSULE Take 1 tablet 3 times a day as needed for cough BENZONATATE 22938793404 No Longer Active Prosper Arenas MD Active HYDROCHLOROTHIAZIDE 25 MG ORAL TABLET 1 tablet by mouth daily HYDROCHLOROTHIAZIDE 42185478096 No Longer Active Prosper Arenas MD Active ACCU-CHEK JOANNA PLUS IN VITRO STRIP check blood sugars 5x a day, before each meal and bedtime and 15 minutes after treating a low blood. sugar GLUCOSE BLOOD 82204322700 Active Maliheh Ziglari INSPECTOR AND HAND PACKAGER Active LANTUS SOLOSTAR 100 UNIT/ML SUBCUTANEOUS SOLUTION PEN-INJECTOR Take 40 units at 7-8pm daily INSULIN GLARGINE 90794052039 Active Maliheh Ziglari INSPECTOR AND HAND PACKAGER Active MECLIZINE HCL 25 MG ORAL TABLET 1 daily needed for dizziness 2015 MECLIZINE HCL 57517101538 No Longer Active Maliheh Ziglari INSPECTOR AND HAND PACKAGER Active BENZONATATE 200 MG ORAL CAPSULE 1 tab, 2-3 times a day BENZONATATE 35098933492 No Longer Active Maliheh Ziglari INSPECTOR AND HAND PACKAGER Active HALOPERIDOL 0.5 MG ORAL TABLET one tablet three times a day HALOPERIDOL 46277332240 No Longer Active Maliheh Ziglari INSPECTOR AND HAND PACKAGER Active TRAZODONE HCL 50 MG ORAL TABLET three tablets at bed time TRAZODONE HCL 22413129367 No Longer Active Maliheh Ziglari INSPECTOR AND HAND PACKAGER Active REVLIMID 25 MG ORAL CAPSULE one capsule daily for 21 days then off for 7 days LENALIDOMIDE 11307685697 No Longer Active Maliheh Ziglari INSPECTOR AND HAND PACKAGER Active ZITHROMAX Z-EDDIE 250 MG ORAL TABLET 2 today, then 1 daily for 4 days AZITHROMYCIN 34287078543 No Longer Active Augustina Mata APRN Active NOVOLIN R RELION 100 UNIT/ML INJECTION SOLUTION 30- 40 units each meal sliding scale INSULIN REGULAR HUMAN 63354550376 No Longer Active Maliheh Ziglari INSPECTOR AND HAND PACKAGER Active CALCIUM 500/D 500-200 MG-UNIT ORAL TABLET one tablet daily CALCIUM CARBONATE-VITAMIN D 18223756375 Active Prosper Arenas MD Active HYDROCODONE-ACETAMINOPHEN 5-500 MG ORAL TABLET 1-2 FOUR TIMES A DAY, PRN 2010 HYDROCODONE-ACETAMINOPHEN 76834503704 No Longer Active Prosper Arenas MD Active DOXYCYCLINE HYCLATE 100 MG ORAL CAPSULE take one capsule by mouth twice daily for ten days DOXYCYCLINE HYCLATE 63779408646 No Longer Active Mekhi Dukes MD Active DOXYCYCLINE HYCLATE 100 MG ORAL CAPSULE take one capsule by mouth twice daily for ten days DOXYCYCLINE HYCLATE 100 MG ORAL CAPSULE 1818261 DOXYCYCLINE HYCLATE Inactive HYDROCODONE-ACETAMINOPHEN 5-500 MG ORAL TABLET 1-2 FOUR TIMES A DAY, PRN 2010 HYDROCODONE-ACETAMINOPHEN 5-500 MG ORAL TABLET 422351 HYDROCODONE-ACETAMINOPHEN Inactive NOVOLIN R RELION 100 UNIT/ML INJECTION SOLUTION 30- 40 units each meal sliding scale NOVOLIN R RELION 100 UNIT/ML INJECTION SOLUTION INSULIN REGULAR HUMAN Inactive ZITHROMAX Z-EDDIE 250 MG ORAL TABLET 2 today, then 1 daily for 4 days ZITHROMAX Z-EDDIE 250 MG ORAL TABLET 814870 AZITHROMYCIN Inactive REVLIMID 25 MG ORAL CAPSULE one capsule daily for 21 days then off for 7 days REVLIMID 25 MG ORAL CAPSULE LENALIDOMIDE Inactive TRAZODONE HCL 50 MG ORAL TABLET three tablets at bed time TRAZODONE HCL 50 MG ORAL TABLET 957662 TRAZODONE HCL Inactive HALOPERIDOL 0.5 MG ORAL TABLET one tablet three times a day HALOPERIDOL 0.5 MG ORAL TABLET 386207 HALOPERIDOL Inactive BENZONATATE 200 MG ORAL CAPSULE 1 tab, 2-3 times a day BENZONATATE 200 MG ORAL CAPSULE 873629 BENZONATATE Inactive MECLIZINE HCL 25 MG ORAL TABLET 1 daily needed for dizziness 2015 MECLIZINE HCL 25 MG ORAL TABLET 997717 MECLIZINE HCL Inactive HYDROCHLOROTHIAZIDE 25 MG ORAL TABLET 1 tablet by mouth daily HYDROCHLOROTHIAZIDE 25 MG ORAL TABLET 370316 HYDROCHLOROTHIAZIDE Inactive PREDNISONE 20 MG ORAL TABLET Take 2 daily for 3 days and then 1 daily for 3 days PREDNISONE 20 MG ORAL TABLET 424290 PREDNISONE Inactive LISINOPRIL 5 MG ORAL TABLET 1 daily LISINOPRIL 5 MG ORAL TABLET 139917 LISINOPRIL Inactive METOPROLOL TARTRATE 25 MG ORAL TABLET 1/2 tablet twice a day METOPROLOL TARTRATE 25 MG ORAL TABLET 015941 METOPROLOL TARTRATE Inactive OMEPRAZOLE 20 MG ORAL CAPSULE DELAYED RELEASE 1 qd OMEPRAZOLE 20 MG ORAL CAPSULE DELAYED RELEASE 066932 OMEPRAZOLE Inactive SIMVASTATIN 80 MG ORAL TABLET 1/2 tablet daily SIMVASTATIN 80 MG ORAL TABLET 010076 SIMVASTATIN Inactive ASPIRIN 81 MG ORAL TABLET 1 tablet by mouth daily ASPIRIN 81 MG ORAL TABLET 844187 ASPIRIN Inactive BENZONATATE 200 MG ORAL CAPSULE Take 1 tablet 3 times a day as needed for cough BENZONATATE 200 MG ORAL CAPSULE 063850 BENZONATATE Inactive Immunizations Vaccine Administration Date Value [...] W/DIFF - Chemistry sodium, serum 137 mmol/L 975-102 3285/08/16 carbon dioxide, venous blood 26.3 mmol/L 21.0-32.0 [...] LABS - Chemistry cholesterol, serum 115 mg/dL 397-426 0304/08/18 triglyceride, serum, fasting 89 mg/dL 30-200 HDL cholesterol, serum 46 mg/dL 32-60 LDL cholesterol, serum 51 mg/dL 0-130 blood glucose 104 mg/dL 65-110 Lab Report: LIPID PANEL- REPOWER LAB - Chemistry cholesterol, serum 156 mg/dL 825-386 9995/02/20 HDL cholesterol, serum 52 mg/dL > OR=40 [...] mg/dL Encounters Code Encounter Date Provider Facility CPT-25923 Level 3 Est. Patient 10:53:32 [facility] CPT-46656 Level 3 Est. Patient 17:11:55 [facility] Ismael Gracia MD [facility] CPT-81027 Level 4 Est. Patient 16:29:19 CDT Mekhi Dukes MD [facility] CPT-58778 Level 3 New Patient 17:05:24 CDT Ismael Gracia MD [facility] CPT-03666 Level 2 Est. Patient 15:43:17 CDT Mekhi Dukes MD [facility] CPT-54273 Level 3 Est. Patient 09:30:37 [facility] CPT-82742 Level 3 Est. Patient 10:00:14 CDT Mekhi Dukes MD [facility] CPT-99999 Level 3 Est. Patient 12:24:09 CDT Moy Garcia [facility] CPT-15774 Level 3 Est. Patient 14:34:57 CDT Prosper Arenas MD [facility] CPT-01387 Level 3 New Patient 15:44:53 [facility] Mekhi Dukes MD [facility] CPT-60480 Level 3 Est. Patient 14:53:34 [facility] Prosper Arenas MD [facility] CPT-09579 Level 4 Est. Patient 10:05:41 [facility] Moy Rodrigokymrex [facility] CPT-83281 Level 3 Est. Patient 11:18:32 [facility] Level 4 Est. Patient 11:05:10 CDT Moy Garcia [facility] CPT-71482 Level 3 Est. Patient 11:08:27 [facility] Moy Garcia [facility] CPT-83126 Level 4 Est. Patient 10:43:59 CDT Prosper Arenas MD [facility] CPT-15318 Level 3 Est. Patient 10:51:19 CDT Moy Garcia [facility] CPT-89334 Level 3 Est. Patient 10:20:31 CDT Moy Garcia [facility] CPT-00672 Level 3 Est. Patient 17:08:45 CDT Moy Garcia [facility] CPT-85216 Level 2 Est. Patient 13:54:36 CDT Augustina Mata APRN [facility] CPT-81984 Level 3 Est. Patient 12:00:42 CDT Prosper Arenas MD [facility]-24547 Level 3 Est. Patient 09:57:28 [facility] CPT-04573 Level 3 Est. Patient 11:41:19 [facility] Luxshoaib [facility] CPT-22952 Level 4 Est. Patient 17:07:35 [facility] CPT-63322 Level 5 Est. Patient 14:33:32 [facility] CPT-87360 Level 3 Est. Patient 12:25:35 CDT Prosper Arenas MD [facility] Procedures Code Procedure Name Date Entry Date Standard Description CPT-42982 Postop F/U Visit 17:20:20 [facility] CPT-G0439 Subsequent Annual Wellness Exam 08:39:41 [facility] CPT-000 Give Appropriate Flu Vaccine 10:13:55 [facility] CPT-000 Give Immunizations Due 10:13:55 [facility] CPT-74463 HGBA1C - LAB USE ONLY 09:42:47 [facility] CPT-98399 TPSA - LAB USE ONLY 09:42:46 [facility] CPT-18513 Venipuncture Draw Fee 09:42:46 [facility] CPT-60781 Port a cath flush 13:33:18 [facility] CPT-76471 First Vx - Ix admin for Medicare patients 10:42:57 [facility] CPT-43824 Fluzone Preservative Free Intramuscular Suspension 10:42 :57 [facility] CPT-G0438 Initial Annual Wellness Exam 10:13:55 [facility] CPT-000 Give Appropriate Flu Vaccine 10:44:04 CDT CPT-000 Give Pneumovax 10:44:03 CDT CPT-28470 Port a cath flush 17:04:43 CDT CPT-63610 Prevnar 13 11:19:17 CDT CPT-04404 Fluzone Quadrivalent preservative free (>=3yrs.) 11:19: 17 CDT CPT-56265 Immunization Each Additional Inj 11:19:17 CDT CPT-85253 Immunization Single Admin 11:19:17 CDT CPT-65744 Port a cath flush 13:28:22 CDT CPT-TCMM Transitional Care Mgmt-Moderate 13:40:15 CDT CPT-G0008 Administration of Influenza Virus Vaccine 13:59:20 CDT CPT-65747 Fluzone High-Dose Intramuscular Suspension 13:59:20 CDT CPT-76175 Venipuncture Draw Fee 09:56:19 CDT CPT-OV Office Visit 15:46:10 CDT
--- OUTSIDE RECORDS SUMMARY | 2017-08-25 21:13 | XMS REPORT | Clinical Summary ---
Author Author Admin, IWONA Organization [employer] Address Unknown Phone Unavailable Allergies, Adverse Reactions, Alerts Allergy Name Reaction Description Start Date Severity Status Provider ERYTHROMYCIN Stomach cramps Moderate Active Prosper Arenas MD CODEINE Critical Active Maliheh Ziglari LOCAL COORDINATOR DARVOCET Critical Active Maliheh Ziglari LOCAL COORDINATOR LEVAQUIN Critical Active Maliheh Ziglari LOCAL COORDINATOR Conditions or Problems Problem Name Problem Code [...] type II, uncontrolled 250.02 Active Maliheh Ziglari LOCAL COORDINATOR Diabetes mellitus 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, type II or unspecified type, uncontrolled Chest pain, atypical 786.59 Resolved Mkehi Dukes MD Other chest pain Bronchitis 490 [...] with hyperglycemia 250.00 Active 03/21 Maliheh Ziglari LOCAL COORDINATOR Diabetes mellitus 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, type II or unspecified type, not stated as uncontrolled detention use of insulin treatment V58.67 Active Luxiheh Rodrigoglari LOCAL COORDINATOR Long-term (current) use of insulin Diabetes mellitus, type II with hypoglycemia 250.80 Active 07/22 Maliheh Ziglari LOCAL COORDINATOR Diabetes mellitus with other specified manifestations, type II or unspecified type, not stated as uncontrolled 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 sugar GLUCOSE BLOOD 76992325890 Active Maliheh Ziglari LOCAL COORDINATOR Active NOVOLOG FLEXPEN 100 UNIT/ML SOPN Take 25 units with each meal, add 1u/50 for blood sugars above 150. INSULIN ASPART 21146269275 Active Maliheh Ziglari LOCAL COORDINATOR Active LANTUS SOLOSTAR 100 UNIT/ML SOLN Take 40 units at 7-8pm daily INSULIN GLARGINE 47107915938 Active Maliheh Ziglari LOCAL COORDINATOR Active MECLIZINE HCL 25 MG TABS 1 daily needed for dizziness MECLIZINE HCL 96298900199 No Longer Active Maliheh Ziglari LOCAL COORDINATOR Active BENZONATATE 200 MG CAPS 1 tab, 2-3 times a day BENZONATATE 85269832032 No Longer Active Maliheh Ziglari LOCAL COORDINATOR Active HALOPERIDOL 0.5 MG TABS one tablet three times a day HALOPERIDOL 94978615525 No Longer Active Maliheh Ziglari LOCAL COORDINATOR Active TRAZODONE HCL 50 MG TAB three tablets at bed time TRAZODONE HCL 38788245697 No Longer Active Moy Wallacesania LOCAL COORDINATOR Active REVLIMID 25 MG CAPS one capsule daily for 21 days then off for 7 days 2014 LENALIDOMIDE 21523276813 No Longer Active Moy Ziglari LOCAL COORDINATOR Active ZITHROMAX Z-EDDIE 250 MG TABS 2 today, then 1 daily for 4 days 2014 AZITHROMYCIN 73556004642 No Longer Active Augustina Mata [employer]IC[employer]ERKS SUPERVISOR Active NOVOLIN R RELION 100 UNIT/ML INJ SOLN 30- 40 units each meal sliding scale INSULIN REGULAR HUMAN 47249695271 No Longer Active Moy Wallacekymari LOCAL COORDINATOR Active LISINOPRIL 5 MG TABS 1 daily LISINOPRIL 64722134568 Active Prosper Arenas MD Active CALCIUM 500/D 500-200 MG-UNIT TABS one tablet daily CALCIUM CARBONATE- VITAMIN D 74713923907 Active Prosper Arenas MD Active HYDROCHLOROTHIAZIDE 25 MG TABS 1 tablet by mouth daily HYDROCHLOROTHIAZIDE 47833579908 Active Prosper Arenas MD Active HYDROCODONE-ACETAMINOPHEN 5-500 MG TABS 1-2 FOUR TIMES A DAY, PRN HYDROCODONE-ACETAMINOPHEN 14704697933 No Longer Active Prosper Arenas MD Active SIMVASTATIN 80 MG TABS 1/2 tablet daily SIMVASTATIN 08203300778 Active Prosper Arenas MD Active METOPROLOL TARTRATE 25 MG TABS 1/2 tablet twice a day METOPROLOL TARTRATE 59110482721 Active Prosper Arenas MD Active ASPIRIN 81 MG TAB 1 tablet by mouth daily ASPIRIN 56257381710 Active Prosper Arenas MD Active OMEPRAZOLE 20 MG CPDR 1 qd OMEPRAZOLE 66057281878 Active DARCIE Miller Active DOXYCYCLINE HYCLATE 100 MG CAPS take one capsule by mouth twice daily for ten days DOXYCYCLINE HYCLATE 62822229884 No Longer Active Mekhi Dukes MD Active DOXYCYCLINE HYCLATE 100 MG CAPS take one capsule by mouth twice daily for ten days DOXYCYCLINE HYCLATE 100 MG CAPS 2281376 DOXYCYCLINE HYCLATE Inactive HYDROCODONE-ACETAMINOPHEN 5-500 MG TABS [...] days 2014 ZITHROMAX Z-EDDIE 250 MG TABS 4028141 AZITHROMYCIN Inactive REVLIMID 25 MG CAPS one capsule daily for 21 days then off for 7 days 2014 REVLIMID 25 MG CAPS LENALIDOMIDE Inactive TRAZODONE HCL 50 MG TAB three tablets at bed time TRAZODONE HCL 50 MG TAB 313966 TRAZODONE HCL Inactive HALOPERIDOL 0.5 MG TABS one tablet three times a day HALOPERIDOL 0.5 MG TABS 372047 HALOPERIDOL Inactive BENZONATATE 200 MG CAPS 1 tab, 2-3 times a day BENZONATATE 200 MG CAPS 621092 BENZONATATE Inactive MECLIZINE HCL 25 MG TABS 1 daily needed for dizziness MECLIZINE HCL 25 MG TABS 130650 MECLIZINE HCL Inactive Immunizations Vaccine Administration Date [...] mg/dL Encounters Code Encounter Date Provider Facility CPT-52274 Level 3 New Patient 15:44:53 [employer]ANKING [employer]SULTANT Mekhi Dukes MD [facility] CPT-71042 Level 3 Est. Patient 14:53:34 BANKING CONSULTANT Prosper Arenas MD [facility] CPT-46191 Level 4 Est. Patient 10:05:41 BANKING CONSULTANT [facility] CPT-52317 Level 3 Est. Patient 11:18:32 CDT [facility] CPT-42990 Level 4 Est. Patient 11:05:10 CDT [facility] CPT-05871 Level 3 Est. Patient 11:08:27 BANKING CONSULTANT [facility] CPT-12076 Level 4 Est. Patient 10:43:59 CDT Prosper Arenas MD [facility] CPT-09236 Level 3 Est. Patient 10:51:19 CDT [facility] CPT-31745 Level 3 Est. Patient 10:20:31 CDT [facility] CPT-67160 Level 3 Est. Patient 17:08:45 CDT Moy Garcia [facility] CPT-27057 Level 2 Est. Patient 13:54:36 CDT Augustina Mata APRN [facility] CPT-64400 Level 3 Est. Patient 12:00:42 CDT Prosper Arenas MD [facility] CPT-93426 Level 3 Est. Patient 09:57:28 BANKING CONSULTANT Moy Garcia [facility] CPT-67823 Level 3 Est. Patient 11:41:19 [facility]ANKING CONS[facility]ANT [facility] Level 4 Est. Patient 17:07:35 [facility] Level 5 Est. Patient 14:33:32 CDT [facility] CPT-67901 Level 3 Est. Patient 12:25:35 CDT Prosper Arenas MD [facility] Procedures Code Procedure Name Date Entry Date Standard Description CPT-000 Give Appropriate Flu Vaccine 10:13:55 BANKING CONSULTANT CPT-000 Give Immunizations Due 10:13:55 BANKING CONSULTANT CPT-28601 HGBA1C - LAB USE ONLY 09:42:47 BANKING CONSULTANT CPT-26694 TPSA - LAB USE ONLY 09:42:46 BANKING CONSULTANT CPT-52644 Venipuncture Draw Fee 09:42:46 BANKING CONSULTANT CPT-09325 Port a cath flush 13:33:18 BANKING CONSULTANT CPT-92125 First Vx - Ix admin for Medicare patients 10:42:57 BANKING CONSULTANT CPT-64022 Fluzone Preservative Free Intramuscular Suspension 10:42 :57 BANKING CONSULTANT CPT-G0438 Initial Annual Wellness Exam 10:13:55 BANKING CONSULTANT CPT-000 Give Appropriate Flu Vaccine 10:44:04 CDT CPT-000 Give Pneumovax 10:44:03 CDT CPT-83498 Port a cath flush 17:04:43 CDT CPT-74272 Prevnar 13 11:19:17 CDT CPT-25313 Fluzone Quadrivalent preservative free (>=3yrs.) 11:19: 17 CDT CPT-62195 Immunization Each Additional Inj 11:19:17 CDT CPT-65480 Immunization Single Admin 11:19:17 CDT CPT-66337 Port a cath flush 13:28:22 CDT CPT-TCMM Transitional Care Mgmt-Moderate 13:40:15 CDT CPT-G0008 Administration of Influenza Virus Vaccine 13:59:20 CDT CPT-90933 Fluzone High-Dose Intramuscular Suspension 13:59:20 CDT CPT-06213 Venipuncture Draw Fee 09:56:19 CDT CPT-OV Office Visit 15:46:10 CDT
--- OUTSIDE RECORDS SUMMARY | 2017-08-25 21:13 | XMS REPORT | Clinical Summary ---
Author Author Admin, IWONA Organization [employer] Address Unknown Phone Unavailable Allergies, Adverse Reactions, Alerts Allergy Name Reaction Description Start Date Severity Status Provider ERYTHROMYCIN Stomach cramps Moderate Active Prosper Arenas MD CODEINE Critical Active Maliheh Ziglari EXTERMINATOR HELPER TERMITE DARVOCET Critical Active Maliheh Ziglari EXTERMINATOR HELPER TERMITE LEVAQUIN Critical Active Maliheh Ziglari EXTERMINATOR HELPER TERMITE Conditions or Problems Problem Name Problem Code Onset Date Status Entry Date Provider Comment Standard Description Annotate Diabetes, Type 2 250.00 Resolved 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 mellitus 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, type [...] type II, uncontrolled 250.02 Active Maliheh Rodrigoglari EXTERMINATOR HELPER TERMITE Diabetes mellitus 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, type [...] with hyperglycemia 250.00 Active 03/21 Maliheh Ziglari EXTERMINATOR HELPER TERMITE Diabetes mellitus 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, type II or unspecified type, not stated as uncontrolled assisted use of insulin treatment V58.67 Active Luxiheh Rodrigoglari EXTERMINATOR HELPER TERMITE Long-term (current) use of insulin Diabetes mellitus, type II with hypoglycemia 250.80 Active 07/22 Maliheh Ziglari EXTERMINATOR HELPER TERMITE Diabetes mellitus with other specified manifestations, type II or unspecified type, not stated as uncontrolled 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 Maliheh Ziglari EXTERMINATOR HELPER TERMITE Diabetes mellitus with renal manifestations, type II or unspecified type, not stated as uncontrolled Wellness exam V70.0 Active Dee Palmer APRN Routine general medical examination at a health care facility Fitting and adjustment of vascular catheter V58.81 Active 02/06 Dee Palmer APRN Encounter for fitting and adjustment of vascular catheter Unawareness of hypoglycemia in diabetes mellitus, type II 250.80 Active Maliheh Ziglari EXTERMINATOR HELPER TERMITE Diabetes mellitus with other specified manifestations, type [...] 80 MG TABS 1/2 tablet daily SIMVASTATIN 36906004349 No Longer Active Mekhi Dukes MD Active OMEPRAZOLE 20 MG CPDR 1 qd OMEPRAZOLE 89442673501 No Longer Active Mekhi Dukes MD Active METOPROLOL TARTRATE 25 MG TABS 1/2 tablet twice a day METOPROLOL TARTRATE 45994239462 No Longer Active Mekhi Dukes MD Active LISINOPRIL 5 MG TABS 1 daily LISINOPRIL 81784449226 No Longer Active Mekhi Dukes MD Active NOVOLOG FLEXPEN 100 UNIT/ML SOPN Take 8 units with each meal, add 1u/50 for blood sugars above 150. INSULIN ASPART 02715448993 Active Moy DURANTP Active GABAPENTIN 300 MG ORAL CAPS 1 tab BID GABAPENTIN 10466994293 Active Tami Miller RN Active PREDNISONE 20 MG TABS Take 2 daily for 3 days and then 1 daily for 3 days PREDNISONE 65723831418 No Longer Active Maliheh Ziglari EXTERMINATOR HELPER TERMITE Active BENZONATATE 200 MG CAPS Take 1 tablet 3 times a day as needed for cough 07/29 BENZONATATE 70689524575 No Longer Active Prosper Arenas MD Active HYDROCHLOROTHIAZIDE 25 MG TABS 1 tablet by mouth daily HYDROCHLOROTHIAZIDE 45052146809 No Longer Active Prosper Arenas MD Active ACCU-CHEK JOANNA PLUS STRP check blood sugars 5x a day, before each meal and bedtime and 15 minutes after treating a low blood. sugar GLUCOSE BLOOD 29628791848 Active Maliheh Ziglari EXTERMINATOR HELPER TERMITE Active LANTUS SOLOSTAR 100 UNIT/ML SOLN Take 40 units at 7-8pm daily INSULIN GLARGINE 14052454925 Active Maliheh Ziglari EXTERMINATOR HELPER TERMITE Active MECLIZINE HCL 25 MG TABS 1 daily needed for dizziness MECLIZINE HCL 59501214718 No Longer Active Maliheh Ziglari EXTERMINATOR HELPER TERMITE Active BENZONATATE 200 MG CAPS 1 tab, 2-3 times a day BENZONATATE 33302275457 No Longer Active Maliheh Ziglari EXTERMINATOR HELPER TERMITE Active HALOPERIDOL 0.5 MG TABS one tablet three times a day HALOPERIDOL 50417011419 No Longer Active Moy Ziglari EXTERMINATOR HELPER TERMITE Active TRAZODONE HCL 50 MG TAB three tablets at bed time TRAZODONE HCL 77865131406 No Longer Active Malpapo Ziglari EXTERMINATOR HELPER TERMITE Active REVLIMID 25 MG CAPS one capsule daily for 21 days then off for 7 days 2014 LENALIDOMIDE 63451755079 No Longer Active Maleh Ziglari EXTERMINATOR HELPER TERMITE Active ZITHROMAX Z-EDDIE 250 MG TABS 2 today, then 1 daily for 4 days 2014 AZITHROMYCIN 87351740438 No Longer Active Augustina Mata CURRENCY EXAMINER Active NOVOLIN R RELION 100 UNIT/ML INJ SOLN 30- 40 units each meal sliding scale INSULIN REGULAR HUMAN 23800645525 No Longer Active Malpapo Ziglari EXTERMINATOR HELPER TERMITE Active CALCIUM 500/D 500-200 MG-UNIT TABS one tablet daily CALCIUM CARBONATE- VITAMIN D 47422958473 Active Prosper Arenas MD Active HYDROCODONE-ACETAMINOPHEN 5-500 MG TABS 1-2 FOUR TIMES A DAY, PRN HYDROCODONE-ACETAMINOPHEN 10139897936 No Longer Active Prosper Arenas MD Active ASPIRIN 81 MG TAB 1 tablet by mouth daily ASPIRIN 92520707585 Active Prosper Arenas MD Active DOXYCYCLINE HYCLATE 100 MG CAPS take one capsule by mouth twice daily for ten days DOXYCYCLINE HYCLATE 79997012140 No Longer Active Mekhi Dukes MD Active DOXYCYCLINE HYCLATE 100 MG CAPS take one capsule by mouth twice daily for ten days DOXYCYCLINE HYCLATE 100 MG CAPS 1281994 DOXYCYCLINE HYCLATE Inactive HYDROCODONE-ACETAMINOPHEN 5-500 MG TABS 1-2 FOUR TIMES A DAY, PRN HYDROCODONE-ACETAMINOPHEN 5-500 MG TABS 865918 HYDROCODONE- ACETAMINOPHEN Inactive NOVOLIN R RELION 100 UNIT/ML INJ SOLN 30- 40 units each meal sliding scale NOVOLIN R RELION 100 UNIT/ML INJ SOLN INSULIN REGULAR HUMAN Inactive ZITHROMAX Z-EDDIE 250 MG TABS 2 today, then 1 daily for 4 days 2014 ZITHROMAX Z-EDDIE 250 MG TABS 682343 AZITHROMYCIN Inactive REVLIMID 25 MG CAPS one capsule daily for 21 days then off for 7 days 2014 REVLIMID 25 MG CAPS LENALIDOMIDE Inactive TRAZODONE HCL 50 MG TAB three tablets at bed time TRAZODONE HCL 50 MG TAB 866824 TRAZODONE HCL Inactive HALOPERIDOL 0.5 MG TABS one tablet three times a day HALOPERIDOL 0.5 MG TABS 653077 HALOPERIDOL Inactive BENZONATATE 200 MG CAPS 1 tab, 2-3 times a day BENZONATATE 200 MG CAPS 166047 BENZONATATE Inactive MECLIZINE HCL 25 MG TABS 1 daily needed for dizziness MECLIZINE HCL 25 MG TABS 679312 MECLIZINE HCL Inactive HYDROCHLOROTHIAZIDE 25 MG TABS 1 tablet by mouth daily HYDROCHLOROTHIAZIDE 25 MG TABS 917436 HYDROCHLOROTHIAZIDE Inactive PREDNISONE 20 MG TABS Take 2 daily for 3 days and then 1 daily for 3 days PREDNISONE 20 MG TABS 477919 PREDNISONE Inactive LISINOPRIL 5 MG TABS 1 daily LISINOPRIL 5 MG TABS 712125 LISINOPRIL Inactive METOPROLOL TARTRATE 25 MG TABS 1/2 tablet twice a day METOPROLOL TARTRATE 25 MG TABS 411793 METOPROLOL TARTRATE Inactive OMEPRAZOLE 20 MG CPDR 1 qd OMEPRAZOLE 20 MG CPDR 837441 OMEPRAZOLE Inactive SIMVASTATIN 80 MG TABS 1/2 tablet daily SIMVASTATIN 80 MG TABS 493301 SIMVASTATIN Inactive BENZONATATE 200 MG CAPS Take 1 tablet 3 times a day as needed for cough 07/29 BENZONATATE 200 MG CAPS 466064 BENZONATATE Inactive Immunizations Vaccine Administration Date Value [...] Value Unit Range Description blood pressure, diastolic 70 mm[Hg] BP chavez [...] W/DIFF - Chemistry sodium, serum 137 mmol/L 022-444 2523/08/16 carbon dioxide, venous blood 26.3 mmol/L 21.0-32.0 [...] LABS - Chemistry cholesterol, serum 115 mg/dL 683-687 3192/08/18 triglyceride, serum, fasting 89 mg/dL 30-200 HDL cholesterol, serum 46 mg/dL 32-60 LDL cholesterol, serum 51 mg/dL 0-130 blood glucose 104 mg/dL 65-110 Lab Report: LIPID PANEL- REPOWER LAB - Chemistry cholesterol, serum 156 mg/dL 601-211 6875/02/20 HDL cholesterol, serum 52 mg/dL > OR=40 [...] mg/dL Encounters Code Encounter Date Provider Facility CPT-92352 Level 4 Est. Patient 16:29:19 CDT Mekhi Dukes MD [facility] CPT-31815 Level 3 New Patient 17:05:24 CDT Ismael Gracia MD [facility] CPT-26991 Level 2 Est. Patient 15:43:17 CDT Mekhi Dukes MD [facility] CPT-11185 Level 3 Est. Patient 09:30:37 CDT [facility] Level 3 Est. Patient 10:00:14 CDT Mekhi Dukes MD [facility] CPT-31205 Level 3 Est. [facility]24[facility] Level 3 Est. Patient 14:34:57 CDT Prosper Arenas MD [facility] CPT-12710 Level 3 New Patient 15:44:53 PUTTY MAKER Mekhi Dukes MD [facility] CPT-21642 Level 3 Est. Patient 14:53:34 PUTTY MAKER Prosper Arenas MD [facility] CPT-85260 Level 4 Est. Patient 10:05:41 PUTTY MAKER [facility] Jose [facility] CPT-97675 Level 3 Est. Patient 11:18:32 CDT [facility] CPT-28095 Level 4 Est. Patient 11:05:10 CDT Moy Garcia [facility] CPT-71581 Level 3 Est. Patient 11:08:27 PUTTY MAKER Moy Garcia [facility] CPT-98904 Level 4 Est. Patient 10:43:59 CDT Prosper Arenas MD [facility] CPT-46124 Level 3 Est. Patient 10:51:19 [facility] CPT-64500 Level 3 Est. Patient 10:20:31 CDT [facility] CPT-32730 Level 3 Est. Patient 17:08:45 [facility] CPT-56773 Level 2 Est. Patient 13:54:36 CDT Augustina Mata APRN [facility] CPT-52147 Level 3 Est. Patient 12:00:42 CDT Prosper Arenas MD [facility] CPT-46221 Level 3 Est. Patient 09:57:28 PUTTY MAKER Moy Garcia [facility] CPT-84470 Level 3 Est. Patient 11:41:19 PUTTY MAKER [facility] Level 4 Est. Patient 17:07:35 PUTTY MAKER [facility] CPT-72625 Level 5 Est. Patient 14:33:32 CDT [facility] CPT-41900 Level 3 Est. Patient 12:25:35 CDT Prosper Arenas MD [facility] Procedures Code Procedure Name Date Entry Date Standard Description CPT-000 Give Appropriate Flu Vaccine 10:13:55 PUTTY MAKER CPT-000 Give Immunizations Due 10:13:55 PUTTY MAKER CPT-14259 HGBA1C - LAB USE ONLY 09:42:47 PUTTY MAKER CPT-92217 TPSA - LAB USE ONLY 09:42:46 PUTTY MAKER CPT-50011 Venipuncture Draw Fee 09:42:46 PUTTY MAKER CPT-38987 Port a cath flush 13:33:18 PUTTY MAKER CPT-01403 First Vx - Ix admin for Medicare patients 10:42:57 PUTTY MAKER CPT-23623 Fluzone Preservative Free Intramuscular Suspension 10:42 :57 PUTTY MAKER CPT-G0438 Initial Annual Wellness Exam 10:13:55 PUTTY MAKER CPT-000 Give Appropriate Flu Vaccine 10:44:04 CDT CPT-000 Give Pneumovax 10:44:03 CDT CPT-04100 Port a cath flush 17:04:43 CDT CPT-60791 Prevnar 13 11:19:17 CDT CPT-59140 Fluzone Quadrivalent preservative free (>=3yrs.) 11:19: 17 CDT CPT-04720 Immunization Each Additional Inj 11:19:17 CDT CPT-37169 Immunization Single Admin 11:19:17 CDT CPT-23327 Port a cath flush 13:28:22 CDT CPT-TCMM Transitional Care Mgmt-Moderate 13:40:15 CDT CPT-G0008 Administration of Influenza Virus Vaccine 13:59:20 CDT CPT-37340 Fluzone High-Dose Intramuscular Suspension 13:59:20 CDT CPT-66376 Venipuncture Draw Fee 09:56:19 CDT CPT-OV Office Visit 15:46:10 CDT
[2017-08-25] MEDS ORDERED: LACTATED RINGERS 1,000 ML IV ONE (21:14)
--- OUTSIDE RECORDS SUMMARY | 2017-08-25 21:14 | XMS REPORT | Clinical Summary ---
Author Author Admin, IWONA Organization [employer] Address Unknown Phone Unavailable Allergies, Adverse Reactions, Alerts Allergy Name Reaction Description Start Date Severity Status Provider ERYTHROMYCIN Stomach cramps Moderate Active Prosper Arenas MD CODEINE Critical Active Maliheh Ziglari PHOTOGRAPHIC PROCESS ATTENDANT DARVOCET Critical Active Maliheh Ziglari PHOTOGRAPHIC PROCESS ATTENDANT LEVAQUIN Critical Active Maliheh Ziglari PHOTOGRAPHIC PROCESS ATTENDANT Conditions or Problems Problem Name Problem Code Onset Date Status Entry Date Provider Comment Standard Description Annotate Diabetes, Type 2 250.00 Resolved 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, type II [...] type II, uncontrolled 250.02 Active Maliheh Rodrigoglari PHOTOGRAPHIC PROCESS ATTENDANT Diabetes mellitus 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, [...] with hyperglycemia 250.00 Active 03/21 Maliheh Ziglari PHOTOGRAPHIC PROCESS ATTENDANT Diabetes mellitus 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, type II or unspecified type, not stated as uncontrolled USP use of insulin treatment V58.67 Active Luxiheh Rodrigoglari PHOTOGRAPHIC PROCESS ATTENDANT Long-term (current) use of insulin Diabetes mellitus, type II with hypoglycemia 250.80 Active 07/22 Maliheh Ziglari PHOTOGRAPHIC PROCESS ATTENDANT Diabetes mellitus with other specified manifestations, type II or unspecified type, not stated as uncontrolled 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 Maliheh Ziglari PHOTOGRAPHIC PROCESS ATTENDANT Diabetes mellitus with renal manifestations, type II or unspecified type, not stated as uncontrolled Wellness exam V70.0 Active Dee Palmer APRN Routine general medical examination at a health care facility Fitting and adjustment of vascular catheter V58.81 Active 02/06 Dee Palmer APRN Encounter for fitting and adjustment of vascular catheter Unawareness of hypoglycemia in diabetes mellitus, type II 250.80 Active Maliheh Ziglari PHOTOGRAPHIC PROCESS ATTENDANT Diabetes mellitus with other specified manifestations, [...] Generic Name NDC Status Provider Patient Instruction NOVOLOG FLEXPEN 100 UNIT/ML SOPN Take 8 units with each meal, add 1u/50 for blood sugars above 150. INSULIN ASPART 91087904953 Active Moy DURANTP Active GABAPENTIN 300 MG ORAL CAPS 1 tab BID GABAPENTIN 27663848497 Active Tami Miller RN Active PREDNISONE 20 MG TABS Take 2 daily for 3 days and then 1 daily for 3 days PREDNISONE 15602151696 No Longer Active Maliheh Ziglari PHOTOGRAPHIC PROCESS ATTENDANT Active BENZONATATE 200 MG CAPS Take 1 tablet 3 times a day as needed for cough 07/29 BENZONATATE 35695546138 No Longer Active Prosper Arenas MD Active HYDROCHLOROTHIAZIDE 25 MG TABS 1 tablet by mouth daily HYDROCHLOROTHIAZIDE 32714402354 No Longer Active Prosper Arenas MD Active ACCU-CHEK JOANNA PLUS STRP check blood sugars 5x a day, before each meal and bedtime and 15 minutes after treating a low blood. sugar GLUCOSE BLOOD 00354041083 Active Maliheh Ziglari PHOTOGRAPHIC PROCESS ATTENDANT Active LANTUS SOLOSTAR 100 UNIT/ML SOLN Take 40 units at 7-8pm daily INSULIN GLARGINE 83494726712 Active Maliheh Ziglari PHOTOGRAPHIC PROCESS ATTENDANT Active MECLIZINE HCL 25 MG TABS 1 daily needed for dizziness MECLIZINE HCL 73143869221 No Longer Active Maliheh Ziglari PHOTOGRAPHIC PROCESS ATTENDANT Active BENZONATATE 200 MG CAPS 1 tab, 2-3 times a day BENZONATATE 57993377686 No Longer Active Maliheh Ziglari PHOTOGRAPHIC PROCESS ATTENDANT Active HALOPERIDOL 0.5 MG TABS one tablet three times a day HALOPERIDOL 97816288004 No Longer Active Maliheh Ziglari PHOTOGRAPHIC PROCESS ATTENDANT Active TRAZODONE HCL 50 MG TAB three tablets at bed time TRAZODONE HCL 97274888290 No Longer Active Maliheh Ziglari PHOTOGRAPHIC PROCESS ATTENDANT Active REVLIMID 25 MG CAPS one capsule daily for 21 days then off for 7 days 2014 LENALIDOMIDE 47237906682 No Longer Active Maliheh Ziglari PHOTOGRAPHIC PROCESS ATTENDANT Active ZITHROMAX Z-EDDIE 250 MG TABS 2 today, then 1 daily for 4 days 2014 AZITHROMYCIN 53173920749 No Longer Active Augustina Mata LEAD INJECTION MOLD TECHNICIAN Active NOVOLIN R RELION 100 UNIT/ML INJ SOLN 30- 40 units each meal sliding scale INSULIN REGULAR HUMAN 15419800029 No Longer Active Moy PARISH Active LISINOPRIL 5 MG TABS 1 daily LISINOPRIL 23914562461 Active Prosper Arenas MD Active CALCIUM 500/D 500-200 MG-UNIT TABS one tablet daily CALCIUM CARBONATE- VITAMIN D 70092730047 Active Prosper Arenas MD Active HYDROCODONE-ACETAMINOPHEN 5-500 MG TABS 1-2 FOUR TIMES A DAY, PRN HYDROCODONE-ACETAMINOPHEN 50077773855 No Longer Active Prosper Arenas MD Active SIMVASTATIN 80 MG TABS 1/2 tablet daily SIMVASTATIN 32464106156 Active Prosper Arenas MD Active METOPROLOL TARTRATE 25 MG TABS 1/2 tablet twice a day METOPROLOL TARTRATE 98585192118 Active Prosper Arenas MD Active ASPIRIN 81 MG TAB 1 tablet by mouth daily ASPIRIN 43187506121 Active Prosper Arenas MD Active OMEPRAZOLE 20 MG CPDR 1 qd OMEPRAZOLE 64428556858 Active DARCIE Miller Active DOXYCYCLINE HYCLATE 100 MG CAPS take one capsule by mouth twice daily for ten days DOXYCYCLINE HYCLATE 07321955953 No Longer Active Mekhi Dukes MD Active DOXYCYCLINE HYCLATE 100 MG CAPS take one capsule by mouth twice daily for ten days DOXYCYCLINE HYCLATE 100 MG CAPS 2741519 DOXYCYCLINE HYCLATE Inactive HYDROCODONE-ACETAMINOPHEN 5-500 MG TABS [...] days 2014 ZITHROMAX Z-EDDIE 250 MG TABS 8722830 AZITHROMYCIN Inactive REVLIMID 25 MG CAPS one capsule daily for 21 days then off for 7 days 2014 REVLIMID 25 MG CAPS LENALIDOMIDE Inactive TRAZODONE HCL 50 MG TAB three tablets at bed time TRAZODONE HCL 50 MG TAB 626197 TRAZODONE HCL Inactive HALOPERIDOL 0.5 MG TABS one tablet three times a day HALOPERIDOL 0.5 MG TABS 087458 HALOPERIDOL Inactive BENZONATATE 200 MG CAPS 1 tab, 2-3 times a day BENZONATATE 200 MG CAPS 140387 BENZONATATE Inactive MECLIZINE HCL 25 MG TABS 1 daily needed for dizziness MECLIZINE HCL 25 MG TABS 580818 MECLIZINE HCL Inactive HYDROCHLOROTHIAZIDE 25 MG TABS 1 tablet by mouth daily HYDROCHLOROTHIAZIDE 25 MG TABS 713658 HYDROCHLOROTHIAZIDE Inactive PREDNISONE 20 MG TABS Take 2 daily for 3 days and then 1 daily for 3 days PREDNISONE 20 MG TABS 727379 PREDNISONE Inactive BENZONATATE 200 MG CAPS Take 1 tablet 3 times a day as needed for cough 07/29 BENZONATATE 200 MG CAPS 838379 BENZONATATE Inactive Immunizations Vaccine Administration Date Value [...] W/DIFF - Chemistry sodium, serum 137 mmol/L 030-162 9937/08/16 carbon dioxide, venous blood 26.3 mmol/L 21.0-32.0 [...] LABS - Chemistry cholesterol, serum 115 mg/dL 067-440 1007/08/18 triglyceride, serum, fasting 89 mg/dL 30-200 HDL cholesterol, serum 46 mg/dL 32-60 LDL cholesterol, serum 51 mg/dL 0-130 blood glucose 104 mg/dL 65-110 Lab Report: LIPID PANEL- REPOWER LAB - Chemistry cholesterol, serum 156 mg/dL 357-648 8695/02/20 HDL cholesterol, serum 52 mg/dL > OR=40 [...] mg/dL Encounters Code Encounter Date Provider Facility CPT-74246 Level 3 Est. [facility]30[facility]-30443 Level 3 Est. Patient 10:00:14 CDT Mekhi Dukes MD [facility] CPT-00574 Level 3 Est. Patient 12:24:09 [facility] Level 3 Est. Patient 14:34:57 CDT Prosper Arenas MD [facility] CPT-67386 Level 3 New Patient 15:44:53 PRINTER FLOOR COVERING ASSISTANT Mekhi Dukes MD [facility] CPT-32601 Level 3 Est. Patient 14:53:34 PRINTER FLOOR COVERING ASSISTANT Prosper Arenas MD [facility] CPT-19581 Level 4 Est. Patient 10:05:41 PRINTER FLOOR COVERING ASSISTANT [facility] CPT-97942 Level 3 Est. Patient 11:18:32 [facility] CPT-18131 Level 4 Est. Patient 11:05:10 CDT [facility] CPT-30081 Level 3 Est. Patient 11:08:27 PRINTER FLOOR COVERING ASSISTANT [facility] CPT-97210 Level 4 Est. Patient 10:43:59 CDT Prosper Arenas MD [facility] CPT-76189 Level 3 Est. Patient 10:51:19 CDT [facility] Level 3 Est. Patient 10:20:31 CDT [facility] CPT-82179 Level 3 Est. Patient 17:08:45 CDT [facility] CPT-96694 Level 2 Est. Patient 13:54:36 CDT Augustina Mata APRN [facility] CPT-59955 Level 3 Est. Patient 12:00:42 CDT Prosper Arenas MD [facility] CPT-51083 Level 3 Est. Patient 09:57:28 PRINTER FLOOR COVERING ASSISTANT [facility] CPT-50859 Level 3 Est. Patient 11:41:19 PRINTER FLOOR COVERING ASSISTANT [facility]05608 Level 4 Est. Patient 17:07:35 PRINTER FLOOR COVERING ASSISTANT [facility] CPT-27039 Level 5 Est. Patient 14:33:32 CDT [facility] CPT-50997 Level 3 Est. Patient 12:25:35 CDT Prosper Arenas MD [facility] Procedures Code Procedure Name Date Entry Date Standard Description CPT-000 Give Appropriate Flu Vaccine 10:13:55 PRINTER FLOOR COVERING ASSISTANT CPT-000 Give Immunizations Due 10:13:55 PRINTER FLOOR COVERING ASSISTANT CPT-28639 HGBA1C - LAB USE ONLY 09:42:47 PRINTER FLOOR COVERING ASSISTANT CPT-20099 TPSA - LAB USE ONLY 09:42:46 PRINTER FLOOR COVERING ASSISTANT CPT-01403 Venipuncture Draw Fee 09:42:46 PRINTER FLOOR COVERING ASSISTANT CPT-04150 Port a cath flush 13:33:18 PRINTER FLOOR COVERING ASSISTANT CPT-24213 First Vx - Ix admin for Medicare patients 10:42:57 PRINTER FLOOR COVERING ASSISTANT CPT-04192 Fluzone Preservative Free Intramuscular Suspension 10:42 :57 PRINTER FLOOR COVERING ASSISTANT CPT-G0438 Initial Annual Wellness Exam 10:13:55 PRINTER FLOOR COVERING ASSISTANT CPT-000 Give Appropriate Flu Vaccine 10:44:04 CDT CPT-000 Give Pneumovax 10:44:03 CDT CPT-51666 Port a cath flush 17:04:43 CDT CPT-57769 Prevnar 13 11:19:17 CDT CPT-94044 Fluzone Quadrivalent preservative free (>=3yrs.) 11:19: 17 CDT CPT-23706 Immunization Each Additional Inj 11:19:17 CDT CPT-90071 Immunization Single Admin 11:19:17 CDT CPT-30751 Port a cath flush 13:28:22 CDT CPT-TCMM Transitional Care Mgmt-Moderate 13:40:15 CDT CPT-G0008 Administration of Influenza Virus Vaccine 13:59:20 CDT CPT-85664 Fluzone High-Dose Intramuscular Suspension 13:59:20 CDT CPT-48471 Venipuncture Draw Fee 09:56:19 CDT CPT-OV Office Visit 15:46:10 CDT
--- OUTSIDE RECORDS SUMMARY | 2017-08-25 21:15 | XMS REPORT | Clinical Summary ---
Author Author Admin, IWONA Organization [place] Address Unknown Phone Unavailable Allergies, Adverse Reactions, Alerts Allergy Name Reaction Description Start Date Severity Status Provider ERYTHROMYCIN Stomach cramps Moderate Active Prosper Arenas MD CODEINE Critical Active Maliheh Ziglari BRUSH STAINER DARVOCET Critical Active Maliheh Ziglari BRUSH STAINER LEVAQUIN Critical Active Maliheh Ziglari BRUSH STAINER Conditions or Problems Problem Name Problem Code [...] type II, uncontrolled 250.02 Active Maliheh Ziglari BRUSH STAINER Diabetes mellitus 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, type [...] with hyperglycemia 250.00 Active 03/21 Maliheh Ziglari BRUSH STAINER Diabetes mellitus 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, type II or unspecified type, not stated as uncontrolled intermediate use of insulin treatment V58.67 Active Maliheh Ziglari BRUSH STAINER Long-term (current) use of insulin Diabetes mellitus, type II with hypoglycemia 250.80 Active 07/22 Maliheh Ziglari BRUSH STAINER Diabetes mellitus with other specified manifestations, type II or unspecified type, not stated as uncontrolled 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 Maliheh Ziglari BRUSH STAINER Diabetes mellitus with renal manifestations, type II or unspecified type, not stated as uncontrolled Wellness exam V70.0 Active Dee Palmer APRN Routine general medical examination at a health care facility Fitting and adjustment of vascular catheter V58.81 Active 02/06 Dee Palmer APRN Encounter for fitting and adjustment of vascular catheter Unawareness of hypoglycemia in diabetes mellitus, type II 250.80 Active Maliheh Ziglari BRUSH STAINER Diabetes mellitus with other specified manifestations, type [...] day as needed for cough 07/29 BENZONATATE 66901522811 Active Prosper Arenas MD Active PREDNISONE 20 MG TABS Take 2 daily for 3 days and then 1 daily for 3 days PREDNISONE 16732818162 Active Prosper Arenas MD Active HYDROCHLOROTHIAZIDE 25 MG TABS 1 tablet by mouth daily HYDROCHLOROTHIAZIDE 96171924691 No Longer Active Prosper Arenas MD Active ACCU-CHEK JOANNA PLUS STRP check blood sugars 5x a day, before each meal and bedtime and 15 minutes after treating a low blood. sugar GLUCOSE BLOOD 13089855904 Active Maliheh Ziglari BRUSH STAINER Active NOVOLOG FLEXPEN 100 UNIT/ML SOPN Take 25 units with each meal, add 1u/50 for blood sugars above 150. INSULIN ASPART 03846371540 Active Maliheh Ziglari BRUSH STAINER Active LANTUS SOLOSTAR 100 UNIT/ML SOLN Take 40 units at 7-8pm daily INSULIN GLARGINE 40839530837 Active [facility] Ziglari BRUSH STAINER Active MECLIZINE HCL 25 MG TABS 1 daily needed for dizziness MECLIZINE HCL 90597954068 No Longer Active [facility] Ziglari BRUSH STAINER Active BENZONATATE 200 MG CAPS 1 tab, 2-3 times a day BENZONATATE 08375992806 No Longer Active [facility] Ziglari BRUSH STAINER Active HALOPERIDOL 0.5 MG TABS one tablet three times a day HALOPERIDOL 49547763936 No Longer Active [facility] Ziglari BRUSH STAINER Active TRAZODONE HCL 50 MG TAB three tablets at bed time TRAZODONE HCL 23224446746 No Longer Active [facility] Ziglari BRUSH STAINER Active REVLIMID 25 MG CAPS one capsule daily for 21 days then off for 7 days 2014 LENALIDOMIDE 71176613824 No Longer Active [facility] Ziglari BRUSH STAINER Active ZITHROMAX Z-EDDIE 250 MG TABS 2 today, then 1 daily for 4 days 2014 AZITHROMYCIN 48140276029 No Longer Active Augustina Mata PLANT PROTECTION GUARD Active NOVOLIN R RELION 100 UNIT/ML INJ SOLN 30- 40 units each meal sliding scale INSULIN REGULAR HUMAN 82859734379 [facility] Active LISINOPRIL 5 MG TABS 1 daily LISINOPRIL 49282910398 Active Prosper Arenas MD Active CALCIUM 500/D 500-200 MG-UNIT TABS one tablet daily CALCIUM CARBONATE- VITAMIN D 06313302152 Active Prosper Arenas MD Active HYDROCODONE-ACETAMINOPHEN 5-500 MG TABS 1-2 FOUR TIMES A DAY, PRN HYDROCODONE-ACETAMINOPHEN 26965500716 No Longer Active Prosper Arenas MD Active SIMVASTATIN 80 MG TABS 1/2 tablet daily SIMVASTATIN 61378838888 Active Prosper Arenas MD Active METOPROLOL TARTRATE 25 MG TABS 1/2 tablet twice a day METOPROLOL TARTRATE 26160619892 Active Prosper Arenas MD Active ASPIRIN 81 MG TAB 1 tablet by mouth daily ASPIRIN 47566018222 Active Prosper Arenas MD Active OMEPRAZOLE 20 MG CPDR 1 qd OMEPRAZOLE 79054842513 Active DARCIE Miller Active DOXYCYCLINE HYCLATE 100 MG CAPS take one capsule by mouth twice daily for ten days DOXYCYCLINE HYCLATE 14737579045 No Longer Active Mekhi Dukes MD Active DOXYCYCLINE HYCLATE 100 MG CAPS take one capsule by mouth twice daily for ten days DOXYCYCLINE HYCLATE 100 MG CAPS 4226747 DOXYCYCLINE HYCLATE Inactive HYDROCODONE-ACETAMINOPHEN 5-500 MG TABS [...] days 2014 ZITHROMAX Z-EDDIE 250 MG TABS 7503959 AZITHROMYCIN Inactive REVLIMID 25 MG CAPS one capsule daily for 21 days then off for 7 days 2014 REVLIMID 25 MG CAPS LENALIDOMIDE Inactive TRAZODONE HCL 50 MG TAB three tablets at bed time TRAZODONE HCL 50 MG TAB 507050 TRAZODONE HCL Inactive HALOPERIDOL 0.5 MG TABS one tablet three times a day HALOPERIDOL 0.5 MG TABS 212651 HALOPERIDOL Inactive BENZONATATE 200 MG CAPS 1 tab, 2-3 times a day BENZONATATE 200 MG CAPS 634780 BENZONATATE Inactive MECLIZINE HCL 25 MG TABS 1 daily needed for dizziness MECLIZINE HCL 25 MG TABS 594030 MECLIZINE HCL Inactive HYDROCHLOROTHIAZIDE 25 MG TABS 1 tablet by mouth daily HYDROCHLOROTHIAZIDE 25 MG TABS 699931 HYDROCHLOROTHIAZIDE Inactive Immunizations Vaccine Administration Date Value [...] LAB - Chemistry cholesterol, serum 156 mg/dL 551-547 8004/02/20 HDL cholesterol, serum 52 mg/dL > OR=40 [...] mg/dL Encounters Code Encounter Date Provider Facility CPT-14240 Level 3 Est. Patient 14:34:57 CDT Prosper Arenas MD [facility] CPT-69721 Level 3 New Patient 15:44:53 CAGE CLERK Mekhi Dukes MD [facility] CPT-68781 Level 3 Est. Patient 14:53:34 CAGE CLERK Prosper Arenas MD [facility] CPT-97969 Level 4 Est. Patient 10:05:41 CAGE CLERK [facility] CPT-74867 Level 3 Est. Patient 11:18:32 CDT [facility] CPT-86334 Level 4 Est. Patient 11:05:10 CDT [facility] CPT-38706 Level 3 Est. Patient 11:08:27 CAGE CLERK [facility] Level 4 Est. Patient 10:43:59 CDT Prosper Arenas MD [facility] CPT-17775 Level 3 Est. Patient 10:51:19 CDT [facility] CPT-58928 Level 3 Est. Patient 10:20:31 CDT [facility] CPT-81762 Level 3 Est. Patient 17:08:45 CDT [facility] CPT-37840 Level 2 Est. Patient 13:54:36 CDT Augustina Mata BESSY [facility] CPT-35934 Level 3 Est. Patient 12:00:42 CDT Prosper Arenas MD [facility] CPT-89533 Level 3 Est. Patient 09:57:28 CAGE CLERK [facility] CPT-62762 Level 3 Est. Patient 11:41:19 CAGE CLERK Moy Garcia [facility] CPT-12381 Level 4 Est. Patient 17:07:35 [facility] Level 5 Est. [facility] CPT-48385 Level 3 Est. Patient 12:25:35 CDT Prosper Arenas MD [facility] Procedures Code Procedure Name Date Entry Date Standard Description CPT-000 Give Appropriate Flu Vaccine 10:13:55 CAGE CLERK CPT-000 Give Immunizations Due 10:13:55 CAGE CLERK CPT-48312 HGBA1C - LAB USE ONLY 09:42:47 CAGE CLERK CPT-57175 TPSA - LAB USE ONLY 09:42:46 CAGE CLERK CPT-92980 Venipuncture Draw Fee 09:42:46 CAGE CLERK CPT-71710 Port a cath flush 13:33:18 CAGE CLERK CPT-16716 First Vx - Ix admin for Medicare patients 10:42:57 CAGE CLERK CPT-76815 Fluzone Preservative Free Intramuscular Suspension 10:42 :57 CAGE CLERK CPT-G0438 Initial Annual Wellness Exam 10:13:55 CAGE CLERK CPT-000 Give Appropriate Flu Vaccine 10:44:04 CDT CPT-000 Give Pneumovax 10:44:03 CDT CPT-32798 Port a cath flush 17:04:43 CDT CPT-51048 Prevnar 13 11:19:17 CDT CPT-71860 Fluzone Quadrivalent preservative free (>=3yrs.) 11:19: 17 CDT CPT-19827 Immunization Each Additional Inj 11:19:17 CDT CPT-63155 Immunization Single Admin 11:19:17 CDT CPT-09631 Port a cath flush 13:28:22 CDT CPT-TCMM Transitional Care Mgmt-Moderate 13:40:15 CDT CPT-G0008 Administration of Influenza Virus Vaccine 13:59:20 CDT CPT-30142 Fluzone High-Dose Intramuscular Suspension 13:59:20 CDT CPT-08269 Venipuncture Draw Fee 09:56:19 CDT CPT-OV Office Visit 15:46:10 CDT
--- OUTSIDE RECORDS SUMMARY | 2017-08-25 21:15 | XMS REPORT | Clinical Summary ---
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, type [...] type II, uncontrolled 250.02 Active Maliheh Rodrigoglari JEWELRY SETTER Diabetes mellitus 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, type [...] with hyperglycemia 250.00 Active 03/21 Maliheh Ziglari JEWELRY SETTER Diabetes mellitus 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, type II or unspecified type, not stated as uncontrolled assisted use of insulin treatment V58.67 Active Luxihe[facility] Rodrigoglari JEWELRY SETTER Long-term (current) use of insulin Diabetes mellitus, type II with hypoglycemia 250.80 Active 07/22 Maliheh Ziglari JEWELRY SETTER Diabetes mellitus with other specified manifestations, type II or unspecified type, not stated as uncontrolled 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 INSULIN ASPART 36389538510 Active Moy DURANTP Active GABAPENTIN 300 MG ORAL CAPS 1 tab BID GABAPENTIN 25019348379 Active Tami Miller RN Active PREDNISONE 20 MG TABS Take 2 daily for 3 days and then 1 daily for 3 days PREDNISONE 28891145214 No Longer Active Maliheh Ziglari JEWELRY SETTER Active BENZONATATE 200 MG CAPS Take 1 tablet 3 times a day as needed for cough 07/29 BENZONATATE 06980821422 No Longer Active Prosper Arenas MD Active HYDROCHLOROTHIAZIDE 25 MG TABS 1 tablet by mouth daily HYDROCHLOROTHIAZIDE 82654552175 No Longer Active Prosper Arenas MD Active ACCU-CHEK JOANNA PLUS STRP check blood sugars 5x a day, before each meal and bedtime and 15 minutes after treating a low blood. sugar GLUCOSE BLOOD 83902318934 Active Maliheh Ziglari JEWELRY SETTER Active LANTUS SOLOSTAR 100 UNIT/ML SOLN Take 40 units at 7-8pm daily INSULIN GLARGINE 33827068230 Active Maliheh Ziglari JEWELRY SETTER Active MECLIZINE HCL 25 MG TABS 1 daily needed for dizziness MECLIZINE HCL 80112384405 No Longer Active Maliheh Ziglari JEWELRY SETTER Active BENZONATATE 200 MG CAPS 1 tab, 2-3 times a day BENZONATATE 20658810678 No Longer Active Maliheh Ziglari JEWELRY SETTER Active HALOPERIDOL 0.5 MG TABS one tablet three times a day HALOPERIDOL 96494915643 No Longer Active Maliheh Ziglari JEWELRY SETTER Active TRAZODONE HCL 50 MG TAB three tablets at bed time TRAZODONE HCL 37716106474 No Longer Active Maliheh Ziglari JEWELRY SETTER Active REVLIMID 25 MG CAPS one capsule daily for 21 days then off for 7 days 2014 LENALIDOMIDE 76068376907 No Longer Active Maliheh Ziglari JEWELRY SETTER Active ZITHROMAX Z-EDDIE 250 MG TABS 2 today, then 1 daily for 4 days 2014 AZITHROMYCIN 59352028029 No Longer Active Augustina Mata HAND PACKER Active NOVOLIN R RELION 100 UNIT/ML INJ SOLN 30- 40 units each meal sliding scale INSULIN REGULAR HUMAN 86434837449 No Longer Active Moy PARISH Active LISINOPRIL 5 MG TABS 1 daily LISINOPRIL 50777945129 Active Prosper Arenas MD Active CALCIUM 500/D 500-200 MG-UNIT TABS one tablet daily CALCIUM CARBONATE- VITAMIN D 51511849201 Active Prosper Arenas MD Active HYDROCODONE-ACETAMINOPHEN 5-500 MG TABS 1-2 FOUR TIMES A DAY, PRN HYDROCODONE-ACETAMINOPHEN 37117074294 No Longer Active Prosper Arenas MD Active SIMVASTATIN 80 MG TABS 1/2 tablet daily SIMVASTATIN 90173377051 Active Prosper Arenas MD Active METOPROLOL TARTRATE 25 MG TABS 1/2 tablet twice a day METOPROLOL TARTRATE 90412290937 Active Prosper Arenas MD Active ASPIRIN 81 MG TAB 1 tablet by mouth daily ASPIRIN 53846233521 Active Prosper Arenas MD Active OMEPRAZOLE 20 MG CPDR 1 qd OMEPRAZOLE 16598350661 Active DARCIE Miller Active DOXYCYCLINE HYCLATE 100 MG CAPS take one capsule by mouth twice daily for ten days DOXYCYCLINE HYCLATE 32308472779 No Longer Active Mekhi Dukes MD Active DOXYCYCLINE HYCLATE 100 MG CAPS take one capsule by mouth twice daily for ten days DOXYCYCLINE HYCLATE 100 MG CAPS 8912199 DOXYCYCLINE HYCLATE Inactive HYDROCODONE-ACETAMINOPHEN 5-500 MG TABS [...] days 2014 ZITHROMAX Z-EDDIE 250 MG TABS 8949356 AZITHROMYCIN Inactive REVLIMID 25 MG CAPS one capsule daily for 21 days then off for 7 days 2014 REVLIMID 25 MG CAPS LENALIDOMIDE Inactive TRAZODONE HCL 50 MG TAB three tablets at bed time TRAZODONE HCL 50 MG TAB 705167 TRAZODONE HCL Inactive HALOPERIDOL 0.5 MG TABS one tablet three times a day HALOPERIDOL 0.5 MG TABS 516938 HALOPERIDOL Inactive BENZONATATE 200 MG CAPS 1 tab, 2-3 times a day BENZONATATE 200 MG CAPS 794616 BENZONATATE Inactive MECLIZINE HCL 25 MG TABS 1 daily needed for dizziness MECLIZINE HCL 25 MG TABS 192552 MECLIZINE HCL Inactive HYDROCHLOROTHIAZIDE 25 MG TABS 1 tablet by mouth daily HYDROCHLOROTHIAZIDE 25 MG TABS 674696 HYDROCHLOROTHIAZIDE Inactive PREDNISONE 20 MG TABS Take 2 daily for 3 days and then 1 daily for 3 days PREDNISONE 20 MG TABS 003989 PREDNISONE Inactive BENZONATATE 200 MG CAPS Take 1 tablet 3 times a day as needed for cough 07/29 BENZONATATE 200 MG CAPS 652356 BENZONATATE Inactive Immunizations Vaccine Administration Date Value [...] W/DIFF - Chemistry sodium, serum 137 mmol/L 899-136 0872/08/16 carbon dioxide, venous blood 26.3 mmol/L 21.0-32.0 [...] LABS - Chemistry cholesterol, serum 115 mg/dL 773-148 0499/08/18 triglyceride, serum, fasting 89 mg/dL 30-200 HDL cholesterol, serum 46 mg/dL 32-60 LDL cholesterol, serum 51 mg/dL 0-130 blood glucose 104 mg/dL 65-110 Lab Report: LIPID PANEL- REPOWER LAB - Chemistry cholesterol, serum 156 mg/dL 196-093 7290/02/20 HDL cholesterol, serum 52 mg/dL > OR=40 [...] mg/dL Encounters Code Encounter Date Provider Facility CPT-94008 Level 3 Est. [facility] 09[facility]30:37 [facility] CPT-07568 Level 3 Est. Patient 10:00:14 CDT Mekhi Dukes MD [facility] CPT-72243 Level 3 Est. Patient 12[facility]24:09 [facility] Level 3 Est. Patient 14:34:57 CDT Prosper Arenas MD [facility] CPT-58023 Level 3 New Patient 15:44:53 WOMEN NURSE Mekhi Dukes MD [facility] CPT-30094 Level 3 Est. Patient 14:53:34 WOMEN NURSE Prosper Arenas MD [facility] CPT-10993 Level 4 Est. Patient 10:05:41 [facility]SE [facility] CPT-14867 Level 3 Est. Patient 11[facility]18:32 [facility] CPT-97227 Level 4 Est. Patient 11:05:10 [facility] CPT-50110 Level 3 Est. Patient 11:08:27 [facility]SE [facility] CPT-71584 Level 4 Est. Patient 10:43:59 CDT Prosper Arenas MD [facility] CPT-17821 Level 3 Est. Patient 10:51:19 CDT [facility]85977 Level 3 Est. Patient 10:20:31 CDT [facility] CPT-48926 Level 3 Est. Patient 17:08:45 CDT [facility] CPT-24324 Level 2 Est. Patient 13:54:36 CDT Augustina Mata APRN [facility] CPT-59227 Level 3 Est. Patient 12:00:42 CDT Prosper Arenas MD [facility] CPT-12094 Level 3 Est. Patient 09:57:28 [facility] NURSE [facility] CPT-22956 Level 3 Est. Patient 11:41:19 [facility]-12[facility] Level 4 Est. Patient 17:07:35 WOMEN NURSE [facility] CPT-66103 Level 5 Est. Patient 14:33:32 [facility] CPT-28894 Level 3 Est. Patient 12:25:35 CDT Prosper Arenas MD [facility] Procedures Code Procedure Name Date Entry Date Standard Description CPT-000 Give Appropriate Flu Vaccine 10:13:55 WOMEN NURSE CPT-000 Give Immunizations Due 10:13:55 WOMEN NURSE CPT-42224 HGBA1C - LAB USE ONLY 09:42:47 WOMEN NURSE CPT-79387 TPSA - LAB USE ONLY 09:42:46 WOMEN NURSE CPT-48730 Venipuncture Draw Fee 09:42:46 WOMEN NURSE CPT-88841 Port a cath flush 13:33:18 WOMEN NURSE CPT-44309 First Vx - Ix admin for Medicare patients 10:42:57 WOMEN NURSE CPT-74719 Fluzone Preservative Free Intramuscular Suspension 10:42 :57 WOMEN NURSE CPT-G0438 Initial Annual Wellness Exam 10:13:55 WOMEN NURSE CPT-000 Give Appropriate Flu Vaccine 10:44:04 CDT CPT-000 Give Pneumovax 10:44:03 CDT CPT-60608 Port a cath flush 17:04:43 CDT CPT-41892 Prevnar 13 11:19:17 CDT CPT-14161 Fluzone Quadrivalent preservative free (>=3yrs.) 11:19: 17 CDT CPT-93992 Immunization Each Additional Inj 11:19:17 CDT CPT-84528 Immunization Single Admin 11:19:17 CDT CPT-14289 Port a cath flush 13:28:22 CDT CPT-TCMM Transitional Care Mgmt-Moderate 13:40:15 CDT CPT-G0008 Administration of Influenza Virus Vaccine 13:59:20 CDT CPT-31860 Fluzone High-Dose Intramuscular Suspension 13:59:20 CDT CPT-55969 Venipuncture Draw Fee 09:56:19 CDT CPT-OV Office Visit 15:46:10 CDT
--- OUTSIDE RECORDS SUMMARY | 2017-08-25 21:16 | XMS REPORT | Clinical Summary ---
Author Author Admin, [place] Organization [employer] Address Unknown Phone Unavailable Allergies, Adverse Reactions, Alerts Allergy Name Reaction Description Start Date Severity Status Provider ERYTHROMYCIN Stomach cramps Moderate Active Prosper Arenas MD CODEINE Critical Active Maliheh Ziglari STATION DETECTIVE DARVOCET Critical Active Maliheh Ziglari STATION DETECTIVE LEVAQUIN Critical Active Maliheh Ziglari STATION DETECTIVE Conditions or Problems Problem Name Problem Code [...] type II, uncontrolled 250.02 Active Maliheh Ziglari STATION DETECTIVE Diabetes mellitus 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, type [...] with hyperglycemia 250.00 Active 03/21 Maliheh Ziglari STATION DETECTIVE Diabetes mellitus 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, type II or unspecified type, not stated as uncontrolled [facility] use of insulin treatment V58.67 Active Luxiheh Rodrigoglari STATION DETECTIVE Long-term (current) use of insulin Diabetes mellitus, type II with hypoglycemia 250.80 Active 07/22 Maliheh Ziglari STATION DETECTIVE Diabetes mellitus with other specified manifestations, type II or unspecified type, not stated as uncontrolled 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 sugar GLUCOSE BLOOD 50693317835 Active Maliheh Ziglari STATION DETECTIVE Active NOVOLOG FLEXPEN 100 UNIT/ML SOPN Take 25 units with each meal, add 1u/50 for blood sugars above 150. INSULIN ASPART 00462242484 Active Maliheh Ziglari STATION DETECTIVE Active LANTUS SOLOSTAR 100 UNIT/ML SOLN Take 40 units at 7-8pm daily INSULIN GLARGINE 50970672438 Active Maliheh Ziglari STATION DETECTIVE Active MECLIZINE HCL 25 MG TABS 1 daily needed for dizziness MECLIZINE HCL 13565935027 No Longer Active Maliheh Ziglari STATION DETECTIVE Active BENZONATATE 200 MG CAPS 1 tab, 2-3 times a day BENZONATATE 37742280099 No Longer Active Maliheh Ziglari STATION DETECTIVE Active HALOPERIDOL 0.5 MG TABS one tablet three times a day HALOPERIDOL 02993985810 No Longer Active Maliheh Ziglari STATION DETECTIVE Active TRAZODONE HCL 50 MG TAB three tablets at bed time TRAZODONE HCL 96824658638 No Longer Active Moy Wallacesania STATION DETECTIVE Active REVLIMID 25 MG CAPS one capsule daily for 21 days then off for 7 days 2014 LENALIDOMIDE 82148428577 No Longer Active Moy Ziglari STATION DETECTIVE Active ZITHROMAX Z-EDDIE 250 MG TABS 2 today, then 1 daily for 4 days 2014 AZITHROMYCIN 09293992877 No Longer Active Augustina Mata CONCRETE STONE FINISHER Active NOVOLIN R RELION 100 UNIT/ML INJ SOLN 30- 40 units each meal sliding scale INSULIN REGULAR HUMAN 95552154413 No Longer Active Moy Wallacekymari STATION DETECTIVE Active LISINOPRIL 5 MG TABS 1 daily LISINOPRIL 16764675563 Active Prosper Arenas MD Active CALCIUM 500/D 500-200 MG-UNIT TABS one tablet daily CALCIUM CARBONATE- VITAMIN D 94967277123 Active Prosper Arenas MD Active HYDROCHLOROTHIAZIDE 25 MG TABS 1 tablet by mouth daily HYDROCHLOROTHIAZIDE 91943041671 Active Prosper Arenas MD Active HYDROCODONE-ACETAMINOPHEN 5-500 MG TABS 1-2 FOUR TIMES A DAY, PRN HYDROCODONE-ACETAMINOPHEN 50005865773 No Longer Active Prosper Arenas MD Active SIMVASTATIN 80 MG TABS 1/2 tablet daily SIMVASTATIN 51499040503 Active rPosper Arenas MD Active METOPROLOL TARTRATE 25 MG TABS 1/2 tablet twice a day METOPROLOL TARTRATE 46824523529 Active Prosper Arenas MD Active ASPIRIN 81 MG TAB 1 tablet by mouth daily ASPIRIN 99494333607 Active Prosper Arenas MD Active OMEPRAZOLE 20 MG CPDR 1 qd OMEPRAZOLE 31715464367 Active DARCIE Miller Active DOXYCYCLINE HYCLATE 100 MG CAPS take one capsule by mouth twice daily for ten days DOXYCYCLINE HYCLATE 74436069313 No Longer Active Mekhi Dukes MD Active DOXYCYCLINE HYCLATE 100 MG CAPS take one capsule by mouth twice daily for ten days DOXYCYCLINE HYCLATE 100 MG CAPS 8072845 DOXYCYCLINE HYCLATE Inactive HYDROCODONE-ACETAMINOPHEN 5-500 MG TABS [...] days 2014 ZITHROMAX Z-EDDIE 250 MG TABS 8284264 AZITHROMYCIN Inactive REVLIMID 25 MG CAPS one capsule daily for 21 days then off for 7 days 2014 REVLIMID 25 MG CAPS LENALIDOMIDE Inactive TRAZODONE HCL 50 MG TAB three tablets at bed time TRAZODONE HCL 50 MG TAB 468554 TRAZODONE HCL Inactive HALOPERIDOL 0.5 MG TABS one tablet three times a day HALOPERIDOL 0.5 MG TABS 746943 HALOPERIDOL Inactive BENZONATATE 200 MG CAPS 1 tab, 2-3 times a day BENZONATATE 200 MG CAPS 453011 BENZONATATE Inactive MECLIZINE HCL 25 MG TABS 1 daily needed for dizziness MECLIZINE HCL 25 MG TABS 261989 MECLIZINE HCL Inactive Immunizations Vaccine Administration Date [...] mg/dL Encounters Code Encounter Date Provider Facility CPT-34148 Level 3 New Patient 15:44:53 DOCUMENTATION ENGINEER Mekhi Dukes MD [facility] CPT-04816 Level 3 Est. Patient 14:53:34 DOCUMENTATION ENGINEER Prosper Arenas MD [facility] CPT-65974 Level 4 Est. Patient 10:05:41 DOCUMENTATION ENGINEER [facility] CPT-07636 Level 3 Est. Patient 11:18:32 CDT [facility] CPT-09747 Level 4 Est. Patient 11:05:10 CDT [facility] CPT-11178 Level 3 Est. Patient 11:08:27 DOCUMENTATION ENGINEER [facility] [place] CPT-68713 Level 4 Est. Patient 10:43:59 CDT Prosper Arenas MD [facility] CPT-13127 Level 3 Est. Patient 10:51:19 CDT [facility] [place] CPT-21444 Level 3 Est. Patient 10:20:31 CDT [facility] [place] CPT-67377 Level 3 Est. Patient 17:08:45 CDT Moy Garcia [facility] CPT-20752 Level 2 Est. Patient 13:54:36 CDT Augustina Mata APRN [facility] CPT-25577 Level 3 Est. Patient 12:00:42 CDT Prosper Arenas MD [facility] CPT-31857 Level 3 Est. Patient 09:57:28 DOCUMENTATION ENGINEER Moy Garcia [facility] CPT-76882 Level 3 Est. Patient 11:41:19 [facility] Est[facility] Patient 17:07:35 [facility] 5 Est. Patient 14:33:32 [facility] Level 3 Est. Patient 12:25:35 CDT Prosper Arenas MD [facility] Procedures Code Procedure Name Date Entry Date Standard Description CPT-000 Give Appropriate Flu Vaccine 10:13:55 DOCUMENTATION ENGINEER CPT-000 Give Immunizations Due 10:13:55 DOCUMENTATION ENGINEER CPT-55438 HGBA1C - LAB USE ONLY 09:42:47 DOCUMENTATION ENGINEER CPT-33862 TPSA - LAB USE ONLY 09:42:46 DOCUMENTATION ENGINEER CPT-38989 Venipuncture Draw Fee 09:42:46 DOCUMENTATION ENGINEER CPT-05535 Port a cath flush 13:33:18 DOCUMENTATION ENGINEER CPT-42065 First Vx - Ix admin for Medicare patients 10:42:57 DOCUMENTATION ENGINEER CPT-12904 Fluzone Preservative Free Intramuscular Suspension 10:42 :57 DOCUMENTATION ENGINEER CPT-G0438 Initial Annual Wellness Exam 10:13:55 DOCUMENTATION ENGINEER CPT-000 Give Appropriate Flu Vaccine 10:44:04 CDT CPT-000 Give Pneumovax 10:44:03 CDT CPT-77953 Port a cath flush 17:04:43 CDT CPT-76809 Prevnar 13 11:19:17 CDT CPT-91047 Fluzone Quadrivalent preservative free (>=3yrs.) 11:19: 17 CDT CPT-41099 Immunization Each Additional Inj 11:19:17 CDT CPT-38426 Immunization Single Admin 11:19:17 CDT CPT-91385 Port a cath flush 13:28:22 CDT CPT-TCMM Transitional Care Mgmt-Moderate 13:40:15 CDT CPT-G0008 Administration of Influenza Virus Vaccine 13:59:20 CDT CPT-65597 Fluzone High-Dose Intramuscular Suspension 13:59:20 CDT CPT-69920 Venipuncture Draw Fee 09:56:19 CDT CPT-OV Office Visit 15:46:10 CDT
--- OUTSIDE RECORDS SUMMARY | 2017-08-25 21:17 | XMS REPORT | Clinical Summary ---
Author Author Admin, Kaylynn Organization 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, 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 II [...] type II, uncontrolled 250.02 Active Maliheh Rodrigoglari [employer] Diabetes mellitus 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, type [...] with hyperglycemia 250.00 Active 03/21 Maliheh Ziglari [employer] Diabetes mellitus 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, type II or unspecified type, not stated as uncontrolled [facility] use of insulin treatment V58.67 Active Luxiheh Rodrigoglari [employer] Long-term (current) use of insulin Diabetes mellitus, type II with hypoglycemia 250.80 Active 07/22 Maliheh Ziglari [employer] Diabetes mellitus with other specified manifestations, type II or unspecified type, not stated as uncontrolled 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 Maliheh Ziglari [employer] Diabetes mellitus with renal manifestations, type II or unspecified type, not stated as uncontrolled Wellness exam V70.0 Active Dee Palmer APRN Routine general medical examination at a health care facility Fitting and adjustment of vascular catheter V58.81 Active 02/06 Dee Palmer APRN Encounter for fitting and adjustment of vascular catheter Unawareness of hypoglycemia in diabetes mellitus, type II 250.80 Active Maliheh Rodrigoglari [employer] Diabetes mellitus with other specified manifestations, type [...] specified as recurrent) Gastritis Inactive Maliheh Jose [employer] SE[employer] Unspecified gastritis and gastroduodenitis, 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 hemorrhage Cough 786.2 Active Dee Palmer APRN Cough Multiple myeloma, in relapse 203.02 Active Lexus To LRT Multiple myeloma in relapse Abdominal pain, right upper quadrant ICD-789.01 Inactive [...] po qd x 4 days 05/07 AZITHROMYCIN [id number] No Longer Active Dee Palmer APRN Active GUAIFENESIN DM 400-20 MG ORAL TABLET 1 pill by mouth twice daily, if needed for cough DEXTROMETHORPHAN-GUAIFENESIN 16958726447 Active Dee Palmer APRN Active PREDNISONE 20 MG ORAL TABLET 2 tabs daily for 4 days, 1 tab daily for 4 days, 1/2 tab daily for 4 days PREDNISONE 58080121364 Active Dee Palmer APRN Active ASPIRIN 81 MG ORAL TABLET 1 po qd ASPIRIN 17130938346 Active Dee Palmer APRN Active CALCIUM 500/D 500-200 MG-UNIT ORAL TABLET one tablet daily CALCIUM CARBONATE-VITAMIN D 91896890257 No Longer Active Jillvito Barkleyngoc PRESS FEEDER Active HYDROCODONE-ACETAMINOPHEN 7.5-325 MG ORAL TABLET 1-2 every 4-6 hrs prn 02/25 HYDROCODONE-ACETAMINOPHEN 36122103959 Active Marina Messina PRESS FEEDER Active ASPIRIN 81 MG ORAL TABLET 1 tablet by mouth daily ASPIRIN 57899422491 No Longer Active Marina Messina PRESS FEEDER Active SIMVASTATIN 80 MG ORAL TABLET 1/2 tablet daily SIMVASTATIN 53556930693 No Longer Active Mekhi Dukes MD Active OMEPRAZOLE 20 MG ORAL CAPSULE DELAYED RELEASE 1 qd OMEPRAZOLE 89900965565 No Longer Active Mekhi Dukes MD Active METOPROLOL TARTRATE 25 MG ORAL TABLET 1/2 tablet twice a day METOPROLOL TARTRATE 21342796845 No Longer Active Mekhi Dukes MD Active LISINOPRIL 5 MG ORAL TABLET 1 daily LISINOPRIL 72893427915 No Longer Active Mekhi Dukes MD Active NOVOLOG FLEXPEN 100 UNIT/ML SUBCUTANEOUS SOLUTION PEN-INJECTOR Take 8 units with each meal, add 1u/50 for blood sugars above 150. INSULIN ASPART 26476450622 Active Moy PARISH Active GABAPENTIN 300 MG ORAL CAPSULE 1 tab BID GABAPENTIN 97877980934 Active Tami Miller RN Active PREDNISONE 20 MG ORAL TABLET Take 2 daily for 3 days and then 1 daily for 3 days PREDNISONE 29843599225 No Longer Active Moy PARISH Active BENZONATATE 200 MG ORAL CAPSULE Take 1 tablet 3 times a day as needed for cough BENZONATATE 59084902821 No Longer Active Prosper Arenas MD Active HYDROCHLOROTHIAZIDE 25 MG ORAL TABLET 1 tablet by mouth daily HYDROCHLOROTHIAZIDE 04173244087 No Longer Active Prosper Arenas MD Active ACCU-CHEK JOANNA PLUS IN VITRO STRIP check blood sugars 5x a day, before each meal and bedtime and 15 minutes after treating a low blood. sugar GLUCOSE BLOOD 61551761052 Active Moy Wallaceglrex PARISH Active LANTUS SOLOSTAR 100 UNIT/ML SUBCUTANEOUS SOLUTION PEN-INJECTOR Take 40 units at 7-8pm daily INSULIN GLARGINE 27883876502 Active Maliheh Ziglari [employer] SE[employer]ER Active MECLIZINE HCL 25 MG ORAL TABLET 1 daily needed for dizziness 2015 MECLIZINE HCL 18781920219 No Longer Active Maliheh Ziglari [employer] SE[employer]ER Active BENZONATATE 200 MG ORAL CAPSULE 1 tab, 2-3 times a day BENZONATATE 60487425155 No Longer Active Maliheh Ziglari [employer] SE[employer]ER Active HALOPERIDOL 0.5 MG ORAL TABLET one tablet three times a day HALOPERIDOL 92742525073 No Longer Active Maliheh Ziglari [employer] SE[employer]ER Active TRAZODONE HCL 50 MG ORAL TABLET three tablets at bed time TRAZODONE HCL 42169382084 No Longer Active Maleh Ziglari [employer] SE[employer]ER Active REVLIMID 25 MG ORAL CAPSULE one capsule daily for 21 days then off for 7 days LENALIDOMIDE 73138195859 No Longer Active Maleh Ziglari [employer] SE[employer] Active ZITHROMAX Z-EDDIE 250 MG ORAL TABLET 2 today, then 1 daily for 4 days AZITHROMYCIN 21486259913 No Longer Active Augustina Mata APRN Active NOVOLIN R RELION 100 UNIT/ML INJECTION SOLUTION 30- 40 units each meal sliding scale INSULIN REGULAR HUMAN 41688869852 No Longer Active Maleh Ziglari [employer] SE[employer]ER Active HYDROCODONE-ACETAMINOPHEN 5-500 MG ORAL TABLET 1-2 FOUR TIMES A DAY, PRN 2010 HYDROCODONE-ACETAMINOPHEN 87112598015 No Longer Active Prosper Arenas MD Active DOXYCYCLINE HYCLATE 100 MG ORAL CAPSULE take one capsule by mouth twice daily for ten days DOXYCYCLINE HYCLATE 56353104915 No Longer Active Mekhi Dukes MD Active DOXYCYCLINE HYCLATE 100 MG ORAL CAPSULE take one capsule by mouth twice daily for ten days DOXYCYCLINE HYCLATE 100 MG ORAL CAPSULE 2695114 DOXYCYCLINE HYCLATE Inactive HYDROCODONE-ACETAMINOPHEN 5-500 MG ORAL TABLET 1-2 FOUR TIMES A DAY, PRN 2010 HYDROCODONE-ACETAMINOPHEN 5-500 MG ORAL TABLET 769278 HYDROCODONE-ACETAMINOPHEN Inactive NOVOLIN R RELION 100 UNIT/ML INJECTION SOLUTION 30- 40 units each meal sliding scale NOVOLIN R RELION 100 UNIT/ML INJECTION SOLUTION INSULIN REGULAR HUMAN Inactive ZITHROMAX Z-EDDIE 250 MG ORAL TABLET 2 today, then 1 daily for 4 days ZITHROMAX Z-EDDIE 250 MG ORAL TABLET 295149 AZITHROMYCIN Inactive REVLIMID 25 MG ORAL CAPSULE one capsule daily for 21 days then off for 7 days REVLIMID 25 MG ORAL CAPSULE LENALIDOMIDE Inactive TRAZODONE HCL 50 MG ORAL TABLET three tablets at bed time TRAZODONE HCL 50 MG ORAL TABLET 191071 TRAZODONE HCL Inactive HALOPERIDOL 0.5 MG ORAL TABLET one tablet three times a day HALOPERIDOL 0.5 MG ORAL TABLET 070760 HALOPERIDOL Inactive BENZONATATE 200 MG ORAL CAPSULE 1 tab, 2-3 times a day BENZONATATE 200 MG ORAL CAPSULE 762523 BENZONATATE Inactive MECLIZINE HCL 25 MG ORAL TABLET 1 daily needed for dizziness 2015 MECLIZINE HCL 25 MG ORAL TABLET 645794 MECLIZINE HCL Inactive HYDROCHLOROTHIAZIDE 25 MG ORAL TABLET 1 tablet by mouth daily HYDROCHLOROTHIAZIDE 25 MG ORAL TABLET 619421 HYDROCHLOROTHIAZIDE Inactive PREDNISONE 20 MG ORAL TABLET Take 2 daily for 3 days and then 1 daily for 3 days PREDNISONE 20 MG ORAL TABLET 403204 PREDNISONE Inactive LISINOPRIL 5 MG ORAL TABLET 1 daily LISINOPRIL 5 MG ORAL TABLET 859013 LISINOPRIL Inactive METOPROLOL TARTRATE 25 MG ORAL TABLET 1/2 tablet twice a day METOPROLOL TARTRATE 25 MG ORAL TABLET 045579 METOPROLOL TARTRATE Inactive OMEPRAZOLE 20 MG ORAL CAPSULE DELAYED RELEASE 1 qd OMEPRAZOLE 20 MG ORAL CAPSULE DELAYED RELEASE 154657 OMEPRAZOLE Inactive SIMVASTATIN 80 MG ORAL TABLET 1/2 tablet daily SIMVASTATIN 80 MG ORAL TABLET 763156 SIMVASTATIN Inactive ASPIRIN 81 MG ORAL TABLET 1 tablet by mouth daily ASPIRIN 81 MG ORAL TABLET 955503 ASPIRIN Inactive CALCIUM 500/D 500-200 MG-UNIT ORAL TABLET one tablet daily CALCIUM 500/D 500-200 MG-UNIT ORAL TABLET CALCIUM CARBONATE-VITAMIN D Inactive BENZONATATE 200 MG ORAL CAPSULE Take 1 tablet 3 times a day as needed for cough BENZONATATE 200 MG ORAL CAPSULE 016126 BENZONATATE Inactive AZITHROMYCIN 250 MG ORAL TABLET 2 po qd x 1 day, then 1 po qd x 4 days 05/07 AZITHROMYCIN 250 MG ORAL TABLET 929511 AZITHROMYCIN Inactive Immunizations Vaccine Administration Date Value [...] temperature weight E&M 187 [lb_av] Weight Measured Diagnostic Results Date Name Value Unit Range Description Chart Maintenance: outside lab added to flowsheet - Urinalysis microalbumin/total urine volume 5 mg/L Chart Maintenance: Outside labs entered on Flowsheet - Hematology leukocyte count, blood 4.75 10*3/mm3 hemoglobin, blood 20.2 g/dL hematocrit, blood 57.9 % platelet count 103 10*3/mm3 Lab Report: CBC W/DIFF - Hematology leukocyte count, blood 4.1 10^3/MM^3 10*3/mm3 4.6-10.2 neutrophils as percent of blood leukocytes 58.2 % 42.2-75.2 monocytes as percent of blood leukocytes 18.6 % 1.7-9.3 lymphocytes as percent of blood leukocytes 21.5 % 20.5-51.1 erythrocyte (RBC) count 4.55 10^6/MM^3 10*6/mm3 4.50-6.50 hemoglobin, blood 15.1 g/dL 14.0-18.0 hematocrit, blood 45.1 % 40.0-54.0 mean corpuscular volume, RBC 99 fL 80-97 mean corpuscular hemoglobin, RBC 33.2 pg 27.0-31.2 mean corpuscular hemoglobin concentration, RBC 33.5 G/DL % 31.8- 35.4 red blood cell distribution width 12.8 % 11.6-14.8 platelet count 294 10^3/MM^3 10*3/mm3 142-424 Lab Report: CBC W/DIFF, Comp. Metabolic Panel - Chemistry sodium, serum 135 mmol/L 143-661 2753/05/08 carbon dioxide, venous blood 29.0 mmol/L 21.0-32.0 potassium, serum 4.8 mmol/L 3.5-5.2 chloride, serum 101 mmol/L 98-107 blood glucose 165 mg/dL 65-95 urea nitrogen, blood 19 mg/dL 7-18 creatinine, serum 1.51 mg/dL 0.60-1.30 alanine aminotransferase (SGPT), serum 65 U/L 12-78 aspartate aminotransferase (SGOT), serum 38 U/L 15-37 calcium, serum 8.2 mg/dL 8.5-10.1 bilirubin, serum, total 0.50 mg/dL 0.00-1.00 carbon dioxide, venous blood 23.5 mmol/L 21.0-32.0 potassium, serum 4.8 mmol/L 3.5-5.2 chloride, serum 101 mmol/L 98-107 blood glucose 139 mg/dL 65-95 urea nitrogen, blood 19 mg/dL 7-18 creatinine, serum 1.79 mg/dL 0.60-1.30 alanine aminotransferase (SGPT), serum 140 U/L 12-78 aspartate aminotransferase (SGOT), serum 104 U/L 15-37 calcium, serum 8.5 mg/dL 8.5-10.1 bilirubin, serum, total 0.40 mg/dL 0.00-1.00 sodium, serum 134 mmol/L 673-207 3573/04/10 sodium, serum 135 mmol/L 945-186 8560/04/10 carbon dioxide, venous blood 26.1 mmol/L 21.0-32.0 potassium, serum 4.2 mmol/L 3.5-5.2 chloride, serum 100 mmol/L 98-107 blood glucose 293 mg/dL 65-110 urea nitrogen, blood 18 mg/dL 7-18 creatinine, serum 2.06 mg/dL 0.60-1.30 alanine aminotransferase (SGPT), serum 59 U/L 12-78 aspartate aminotransferase (SGOT), serum 47 U/L 15-37 calcium, serum 8.6 mg/dL 8.5-10.1 bilirubin, serum, total 0.30 mg/dL 0.00-1.00 sodium, serum 139 mmol/L 513-139 1674/05/01 carbon dioxide, venous blood 25.2 mmol/L 21.0-32.0 potassium, serum 4.1 mmol/L 3.5-5.2 chloride, serum 104 mmol/L 98-107 blood glucose 64 mg/dL 65-95 urea nitrogen, blood 16 mg/dL 7-18 creatinine, serum 1.55 mg/dL 0.60-1.30 alanine aminotransferase (SGPT), serum 80 U/L 12-78 aspartate aminotransferase (SGOT), serum 53 U/L 15-37 calcium, serum 8.1 mg/dL 8.5-10.1 bilirubin, serum, total 0.40 mg/dL 0.00-1.00 Lab Report: CBC W/DIFF, Comp. Metabolic Panel - Hematology monocytes as percent of blood leukocytes 16.1 % 1.7-9.3 lymphocytes as percent of blood leukocytes 43.2 % 20.5-51.1 erythrocyte (RBC) count 4.56 10^6/MM^3 10*6/mm3 4.50-6.50 leukocyte count, blood 5.0 10^3/MM^3 10*3/mm3 4.6-10.2 erythrocyte (RBC) count 4.61 10^6/MM^3 10*6/mm3 4.50-6.50 hemoglobin, blood 15.4 g/dL 14.0-18.0 hematocrit, blood 45.4 % 40.0-54.0 mean corpuscular volume, RBC 98 fL 80-97 mean corpuscular hemoglobin, RBC 33.5 pg 27.0-31.2 mean corpuscular hemoglobin concentration, RBC 34.0 G/DL % 31.8- 35.4 red blood cell distribution width 13.8 % 11.6-14.8 platelet count 103 10^3/MM^3 10*3/mm3 401-439 1749/05/01 hemoglobin, blood 14.9 g/dL 14.0-18.0 hematocrit, blood 45.1 % 40.0-54.0 mean corpuscular volume, RBC 99 fL 80-97 mean corpuscular hemoglobin, RBC 32.8 pg 27.0-31.2 mean corpuscular hemoglobin concentration, RBC 33.1 G/DL % 31.8- 35.4 red blood cell distribution width 13.9 % 11.6-14.8 platelet count 271 10^3/MM^3 10*3/mm3 804-155 8726/04/10 leukocyte count, blood 4.8 10^3/MM^3 10*3/mm3 4.6-10.2 [...] % 11.6-14.8 platelet count 200 10^3/MM^3 10*3/mm3 655-153 3989/05/01 neutrophils as percent of blood leukocytes 37.5 % 42.2-75.2 neutrophils as percent of blood leukocytes 44.6 % 42.2-75.2 monocytes as percent of blood leukocytes 23.3 % 1.7-9.3 lymphocytes as percent of blood leukocytes 27.9 % 20.5-51.1 leukocyte count, blood 1.8 10^3/MM^3 10*3/mm3 4.6-10.2 leukocyte count, blood 1.7 10^3/MM^3 10*3/mm3 4.6-10.2 neutrophils as percent of blood leukocytes 41.6 % 42.2-75.2 monocytes as percent of blood leukocytes 25.2 % 1.7-9.3 lymphocytes as percent of blood leukocytes 31.3 % 20.5-51.1 erythrocyte (RBC) count 5.00 10^6/MM^3 10*6/mm3 4.50-6.50 hemoglobin, blood 16.8 g/dL 14.0-18.0 hematocrit, blood 49.2 % 40.0-54.0 mean corpuscular volume, RBC 98 fL 80-97 mean corpuscular hemoglobin, RBC 33.6 pg 27.0-31.2 mean corpuscular hemoglobin concentration, RBC 34.2 G/DL % 31.8- 35.4 red blood cell distribution width 13.6 % 11.6-14.8 platelet count 36 10^3/MM^3 10*3/mm3 142-424 Lab Report: Comp. Metabolic Panel - Chemistry sodium, serum 134 mmol/L 740-087 5609/05/22 carbon dioxide, venous blood 25.2 mmol/L 21.0-32.0 potassium, serum 5.0 mmol/L 3.5-5.2 chloride, serum 100 mmol/L 98-107 blood glucose 278 mg/dL 65-95 urea nitrogen, blood 19 mg/dL 7-18 creatinine, serum 1.49 mg/dL 0.60-1.30 alanine aminotransferase (SGPT), serum 93 U/L 12-78 aspartate aminotransferase (SGOT), serum 58 U/L 15-37 calcium, serum 9.1 mg/dL 8.5-10.1 bilirubin, serum, total 0.20 mg/dL 0.00-1.00 Lab Report: Comp. Metabolic Panel, CBC W/DIFF - Chemistry sodium, serum 137 mmol/L 285-641 4859/08/16 carbon dioxide, venous blood 26.3 mmol/L 21.0-32.0 [...] Panel, Glucose- [facility] - Chemistry triglyceride, serum, fasting 89 mg/dL 30-200 cholesterol, serum 115 mg/dL 434-169 1375/08/18 HDL cholesterol, serum 46 mg/dL 32-60 LDL [...] mg/dL Encounters Code Encounter Date Provider Facility CPT-76598 Level 3 Est. Patient 14:09:25 ASSORTER Dee Palmer APRN [facility] CPT-34532 Level 3 Est. Patient 10:53:[address] [facility] CPT-53493 Level 3 Est. Patient 17:11:55 ASSORTER Ismael Gracia MD [facility] CPT-91788 Level 4 Est. Patient 16:29:19 CDT Mekhi Dukes MD [facility] CPT-00394 Level 3 New Patient 17:05:24 CDT Ismael Gracia MD [facility] CPT-16193 Level 2 Est. Patient 15:43:17 CDT Mekhi Dukes MD [facility] CPT-09397 Level 3 Est. Patient 09:30:37 CDT Moy Garcia [facility] CPT-24099 Level 3 Est. Patient 10:00:14 CDT Mekhi Dukes MD [facility] CPT-88484 Level 3 Est. Patient 12:24:09 CDT Moy Garcia [facility] CPT-48302 Level 3 Est. Patient 14:34:57 CDT Prosper Arenas MD [facility] CPT-55685 Level 3 New Patient 15:44:53 ASSORTER Mekhi Dukes MD [facility] CPT-51640 Level 3 Est. Patient 14:53:34 ASSORTER Prosper Arenas MD [facility] CPT-73545 Level 4 Est. Patient 10:05:41 ASSORTER Moy Rodrigokymrex [facility] CPT-53687 Level 3 Est. [facility] 11:18:32 [facility] Level 4 Est. Patient 11:05:10 [facility] Level 3 Est. Patient 11:08:27 ASSORTER Moy Garcia [facility] [place] CPT-98603 Level 4 Est. Patient 10:43:59 CDT Prosper Arenas MD [facility] CPT-81836 Level 3 Est. Patient 10:51:19 CDT Moy Garcia [facility] [place] CPT-44971 Level 3 Est. [facility]20[facility] Level 3 Est. Patient 17:08:45 [facility] Level 2 Est. Patient 13:54:36 CDT Augustina Mata APRN [facility] CPT-65646 Level 3 Est. Patient 12:00:42 CDT Prosper Arenas MD [facility] CPT-43470 Level 3 Est. Patient 09:57:28 ASSORTER Moy Garcia [facility] [place] CPT-02823 Level 3 Est. Patient 11:41:19 ASSORTER Moy Wallacerex [facility] CPT-38755 Level 4 Est. Patient 17:07:35 ASSORTER Luxshoaib Garcia [facility] [place] CPT-29446 Level 5 Est. Patient 14:33:32 [facility] CPT-95838 Level 3 Est. Patient 12:25:35 CDT Prosper Arenas MD [facility] Procedures Code Procedure Name Date Entry Date Standard Description CPT-54624 Chest, 2 views 14:17:20 ASSORTER CPT-73201 Postop F/U Visit 14:44:45 ASSORTER CPT-17858 Postop F/U Visit 17:20:20 ASSORTER CPT-G0439 [facility] Annual Wellness Exam 08:39:41 ASSORTER CPT-000 Give Appropriate Flu Vaccine 10:13:55 ASSORTER CPT-000 Give Immunizations Due 10:13:55 ASSORTER CPT-68131 HGBA1C - LAB USE ONLY 09:42:47 ASSORTER CPT-60228 TPSA - LAB USE ONLY 09:42:46 ASSORTER CPT-15958 Venipuncture Draw Fee 09:42:46 ASSORTER CPT-95019 Port a cath flush 13:33:18 ASSORTER CPT-81739 First Vx - Ix admin for Medicare patients 10:42:57 ASSORTER CPT-74176 Fluzone Preservative Free Intramuscular Suspension 10:42 :57 ASSORTER CPT-G0438 Initial Annual Wellness Exam 10:13:55 ASSORTER CPT-000 Give Appropriate Flu Vaccine 10:44:04 CDT CPT-000 Give Pneumovax 10:44:03 CDT CPT-38362 Port a cath flush 17:04:43 CDT CPT-27096 Prevnar 13 11:19:17 CDT CPT-50796 Fluzone Quadrivalent preservative free (>=3yrs.) 11:19: 17 CDT CPT-84233 Immunization Each Additional Inj 11:19:17 CDT CPT-69952 Immunization Single Admin 11:19:17 CDT CPT-82842 Port a cath flush 13:28:22 CDT CPT-TCMM Transitional Care Mgmt-Moderate 13:40:15 CDT CPT-G0008 Administration of Influenza Virus Vaccine 13:59:20 CDT CPT-26624 Fluzone High-Dose Intramuscular Suspension 13:59:20 CDT CPT-04538 Venipuncture Draw Fee 09:56:19 CDT CPT-OV Office Visit 15:46:10 CDT
--- OUTSIDE RECORDS SUMMARY | 2017-08-25 21:18 | XMS REPORT | Clinical Summary ---
Author Author Admin, IWONA Organization [employer] Address Unknown Phone Unavailable Allergies, Adverse Reactions, Alerts Allergy Name Reaction Description Start Date Severity Status Provider ERYTHROMYCIN Stomach cramps Moderate Active Prosper Arenas MD CODEINE Critical Active Maliheh Ziglari CHEMIST ENZYMES DARVOCET Critical Active Maliheh Ziglari CHEMIST ENZYMES LEVAQUIN Critical Active Maliheh Ziglari CHEMIST ENZYMES Conditions or Problems Problem Name Problem Code Onset Date Status Entry Date Provider Comment Standard Description Annotate Diabetes, Type 2 250.00 Resolved Tami Miller glove wrapper mellitus 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, type [...] type II, uncontrolled 250.02 Active Maliheh Rodrigoglari CHEMIST ENZYMES Diabetes mellitus 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, type [...] with hyperglycemia 250.00 Active 03/21 Maliheh Ziglari CHEMIST ENZYMES Diabetes mellitus 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, type II or unspecified type, not stated as uncontrolled care home use of insulin treatment V58.67 Active Luxiheh Rodrigoglari CHEMIST ENZYMES Long-term (current) use of insulin Diabetes mellitus, type II with hypoglycemia 250.80 Active 07/22 Maliheh Ziglari CHEMIST ENZYMES Diabetes mellitus with other specified manifestations, type II or unspecified type, not stated as uncontrolled 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 Maliheh Ziglari CHEMIST ENZYMES Diabetes mellitus with renal manifestations, type II or unspecified type, not stated as uncontrolled Wellness exam V70.0 Active Dee Palmer APRN Routine general medical examination at a health care facility Fitting and adjustment of vascular catheter V58.81 Active 02/06 Dee Palmer APRN Encounter for fitting and adjustment of vascular catheter Unawareness of hypoglycemia in diabetes mellitus, type II 250.80 Active Maliheh Ziglari CHEMIST ENZYMES Diabetes mellitus with other specified manifestations, type [...] MG ORAL TABLET 1/2 tablet daily SIMVASTATIN 18151726877 No Longer Active Mekhi Dukes MD Active OMEPRAZOLE 20 MG ORAL CAPSULE DELAYED RELEASE 1 qd OMEPRAZOLE 61301571196 No Longer Active Mekhi Dukes MD Active METOPROLOL TARTRATE 25 MG ORAL TABLET 1/2 tablet twice a day METOPROLOL TARTRATE 51292206466 No Longer Active Mekhi Dukes MD Active LISINOPRIL 5 MG ORAL TABLET 1 daily LISINOPRIL 75970001337 No Longer Active Mekhi Dukes MD Active NOVOLOG FLEXPEN 100 UNIT/ML SUBCUTANEOUS SOLUTION PEN-INJECTOR Take 8 units with each meal, add 1u/50 for blood sugars above 150. INSULIN ASPART 48486070780 Active Moy PARISH Active GABAPENTIN 300 MG ORAL CAPSULE 1 tab BID GABAPENTIN 41131415173 Active Tami Miller RN Active PREDNISONE 20 MG ORAL TABLET Take 2 daily for 3 days and then 1 daily for 3 days PREDNISONE 21005623403 No Longer Active Moy PARISH Active BENZONATATE 200 MG ORAL CAPSULE Take 1 tablet 3 times a day as needed for cough BENZONATATE 87072403781 No Longer Active Prosper Arenas MD Active HYDROCHLOROTHIAZIDE 25 MG ORAL TABLET 1 tablet by mouth daily HYDROCHLOROTHIAZIDE 59450025329 No Longer Active Prosper Arenas MD Active ACCU-CHEK JOANNA PLUS IN VITRO STRIP check blood sugars 5x a day, before each meal and bedtime and 15 minutes after treating a low blood. sugar GLUCOSE BLOOD 48273434914 Active Malpapo Wallaceglrex PARISH Active LANTUS SOLOSTAR 100 UNIT/ML SUBCUTANEOUS SOLUTION PEN-INJECTOR Take 40 units at 7-8pm daily INSULIN GLARGINE 01490279692 Active Moy Ziglari CHEMIST ENZYMES Active MECLIZINE HCL 25 MG ORAL TABLET 1 daily needed for dizziness 2015 MECLIZINE HCL 95313631366 No Longer Active Maleh Ziglari CHEMIST ENZYMES Active BENZONATATE 200 MG ORAL CAPSULE 1 tab, 2-3 times a day BENZONATATE 91688934625 No Longer [facility] CHEMIST ENZYMES Active HALOPERIDOL 0.5 MG ORAL TABLET one tablet three times a day HALOPERIDOL 20231134969 No Longer [facility] Zigl[facility] CHEMIST ENZYMES Active TRAZODONE HCL 50 MG ORAL TABLET three tablets at bed time TRAZODONE HCL 02723756854 No Longer [facility] Ziglari CHEMIST ENZYMES Active REVLIMID 25 MG ORAL CAPSULE one capsule daily for 21 days then off for 7 days LENALIDOMIDE 45854233943 No Longer [facility] Ziglari CHEMIST ENZYMES Active ZITHROMAX Z-EDDIE 250 MG ORAL TABLET 2 today, then 1 daily for 4 days AZITHROMYCIN 51522730943 No Longer Active Augustina Adolfo DOHERTY Active NOVOLIN R RELION 100 UNIT/ML INJECTION SOLUTION 30- 40 units each meal sliding scale INSULIN REGULAR HUMAN 91130677065 No Longer Active Moy Rodrigoglari CHEMIST ENZYMES Active CALCIUM 500/D 500-200 MG-UNIT ORAL TABLET one tablet daily CALCIUM CARBONATE-VITAMIN D 77342535459 Active Prosper Arenas MD Active HYDROCODONE-ACETAMINOPHEN 5-500 MG ORAL TABLET 1-2 FOUR TIMES A DAY, PRN 2010 HYDROCODONE-ACETAMINOPHEN 65188789633 No Longer Active Prosper Arenas MD Active ASPIRIN 81 MG ORAL TABLET 1 tablet by mouth daily ASPIRIN 93356364379 Active Prosper Arenas MD Active DOXYCYCLINE HYCLATE 100 MG ORAL CAPSULE take one capsule by mouth twice daily for ten days DOXYCYCLINE HYCLATE 11281624338 No Longer Active Mekhi Dukes MD Active DOXYCYCLINE HYCLATE 100 MG ORAL CAPSULE take one capsule by mouth twice daily for ten days DOXYCYCLINE HYCLATE 100 MG ORAL CAPSULE 2569871 DOXYCYCLINE HYCLATE Inactive HYDROCODONE-ACETAMINOPHEN 5-500 MG ORAL TABLET 1-2 FOUR TIMES A DAY, PRN 2010 HYDROCODONE-ACETAMINOPHEN 5-500 MG ORAL TABLET 898108 HYDROCODONE-ACETAMINOPHEN Inactive NOVOLIN R RELION 100 UNIT/ML INJECTION SOLUTION 30- 40 units each meal sliding scale NOVOLIN R RELION 100 UNIT/ML INJECTION SOLUTION INSULIN REGULAR HUMAN Inactive ZITHROMAX Z-EDDIE 250 MG ORAL TABLET 2 today, then 1 daily for 4 days ZITHROMAX Z-EDDIE 250 MG ORAL TABLET 734086 AZITHROMYCIN Inactive REVLIMID 25 MG ORAL CAPSULE one capsule daily for 21 days then off for 7 days REVLIMID 25 MG ORAL CAPSULE LENALIDOMIDE Inactive TRAZODONE HCL 50 MG ORAL TABLET three tablets at bed time TRAZODONE HCL 50 MG ORAL TABLET 605795 TRAZODONE HCL Inactive HALOPERIDOL 0.5 MG ORAL TABLET one tablet three times a day HALOPERIDOL 0.5 MG ORAL TABLET 910276 HALOPERIDOL Inactive BENZONATATE 200 MG ORAL CAPSULE 1 tab, 2-3 times a day BENZONATATE 200 MG ORAL CAPSULE 473115 BENZONATATE Inactive MECLIZINE HCL 25 MG ORAL TABLET 1 daily needed for dizziness 2015 MECLIZINE HCL 25 MG ORAL TABLET 714192 MECLIZINE HCL Inactive HYDROCHLOROTHIAZIDE 25 MG ORAL TABLET 1 tablet by mouth daily HYDROCHLOROTHIAZIDE 25 MG ORAL TABLET 173919 HYDROCHLOROTHIAZIDE Inactive PREDNISONE 20 MG ORAL TABLET Take 2 daily for 3 days and then 1 daily for 3 days PREDNISONE 20 MG ORAL TABLET 216651 PREDNISONE Inactive LISINOPRIL 5 MG ORAL TABLET 1 daily LISINOPRIL 5 MG ORAL TABLET 573021 LISINOPRIL Inactive METOPROLOL TARTRATE 25 MG ORAL TABLET 1/2 tablet twice a day METOPROLOL TARTRATE 25 MG ORAL TABLET 860604 METOPROLOL TARTRATE Inactive OMEPRAZOLE 20 MG ORAL CAPSULE DELAYED RELEASE 1 qd OMEPRAZOLE 20 MG ORAL CAPSULE DELAYED RELEASE 700879 OMEPRAZOLE Inactive SIMVASTATIN 80 MG ORAL TABLET 1/2 tablet daily SIMVASTATIN 80 MG ORAL TABLET 873592 SIMVASTATIN Inactive BENZONATATE 200 MG ORAL CAPSULE Take 1 tablet 3 times a day as needed for cough BENZONATATE 200 MG ORAL CAPSULE 334559 BENZONATATE Inactive Immunizations Vaccine Administration Date Value [...] Value Unit Range Description blood pressure, diastolic 65 mm[Hg] BP chavez [...] W/DIFF - Chemistry sodium, serum 137 mmol/L 883-882 2323/08/16 carbon dioxide, venous blood 26.3 mmol/L 21.0-32.0 [...] LABS - Chemistry cholesterol, serum 115 mg/dL 546-676 9092/08/18 triglyceride, serum, fasting 89 mg/dL 30-200 HDL cholesterol, serum 46 mg/dL 32-60 LDL cholesterol, serum 51 mg/dL 0-130 blood glucose 104 mg/dL 65-110 Lab Report: LIPID PANEL- REPOWER LAB - Chemistry cholesterol, serum 156 mg/dL 256-340 4762/02/20 HDL cholesterol, serum 52 mg/dL > OR=40 [...] mg/dL Encounters Code Encounter Date Provider Facility CPT-70490 Level 3 Est. Patient 17:11:55 HYDRAULIC PLUMBER HELPER Ismael Gracia MD [facility] CPT-46950 Level 4 Est. Patient 16:29:19 CDT Mekhi Dueks MD [facility] CPT-11008 Level 3 New Patient 17:05:24 CDT Ismael Gracia MD [facility] CPT-63654 Level 2 Est. Patient 15:43:17 CDT Mekhi Dukes MD [facility] CPT-72683 Level 3 Est. Patient 09:30:37 CDT Maliheh Ziglari [facility]-26343 Level 3 Est. Patient 10:00:14 CDT Mekhi Dukes MD [facility] CPT-22766 Level 3 Est. Patient 12:24:09 CDT Moy Garcia [facility]-96271 Level 3 Est. Patient 14:34:57 CDT Prosper Arenas MD [facility] CPT-27542 Level 3 New Patient 15:44:53 HYDRAULIC PLUMBER HELPER Mekhi Dukes MD [facility]-45251 Level 3 Est. Patient 14:53:34 HYDRAULIC PLUMBER HELPER Prosper Arenas MD [facility] CPT-03834 Level 4 Est. Patient 10:05:41 HYDRAULIC PLUMBER HELPER Moy Rodrigokymrex [facility]-69178 Level 3 Est. [facility] 11:18:[facility]-80622 Level 4 Est. Patient 11:05:10 CDT Moy Garcia [facility] [place][note 2] CPT-38577 Level 3 Est. Patient 11:08:27 HYDRAULIC PLUMBER HELPER Moy Garcia [facility] CPT-89708 Level 4 Est. Patient 10:43:59 CDT Prosper Arenas MD [facility] CPT-55619 Level 3 Est. Patient 10:51:19 CDT Moy Garcia [facility] CPT-33054 Level 3 Est. Patient 10:20:31 CDT Moy Garcia [facility] CPT-89567 Level 3 Est. Patient 17:08:45 CDT Moy Garcia [facility] CPT-23227 Level 2 Est. Patient 13:54:36 CDT Augustina Mata APRN [facility] CPT-58900 Level 3 Est. Patient 12:00:42 CDT Prosper Arenas MD [facility] CPT-11833 Level 3 Est. Patient 09:57:28 HYDRAULIC PLUMBER HELPER Moy Garcia [facility] CPT-03438 Level 3 Est. Patient 11:41:19 HYDRAULIC PLUMBER HELPER Moy Garcia [facility] CPT-91696 Level 4 Est. Patient 17:07:35 HYDRAULIC PLUMBER HELPER Moy Garcia [facility] CPT-54660 Level 5 Est. Patient 14:33:32 CDT Moy Wallacerex [facility] CPT-36600 Level 3 Est. Patient 12:25:35 CDT Prosper Arenas MD [facility] Procedures Code Procedure Name Date Entry Date Standard Description CPT-G0439 Subsequent Annual Wellness Exam 08:39:41 HYDRAULIC PLUMBER HELPER CPT-000 Give Appropriate Flu Vaccine 10:13:55 HYDRAULIC PLUMBER HELPER CPT-000 Give Immunizations Due 10:13:55 HYDRAULIC PLUMBER HELPER CPT-22383 HGBA1C - LAB USE ONLY 09:42:47 HYDRAULIC PLUMBER HELPER CPT-13135 TPSA - LAB USE ONLY 09:42:46 HYDRAULIC PLUMBER HELPER CPT-86557 Venipuncture Draw Fee 09:42:46 HYDRAULIC PLUMBER HELPER CPT-53519 Port a cath flush 13:33:18 HYDRAULIC PLUMBER HELPER CPT-11219 First Vx - Ix admin for Medicare patients 10:42:57 HYDRAULIC PLUMBER HELPER CPT-71214 Fluzone Preservative Free Intramuscular Suspension 10:42 :57 HYDRAULIC PLUMBER HELPER CPT-G0438 Initial Annual Wellness Exam 10:13:55 HYDRAULIC PLUMBER HELPER CPT-000 Give Appropriate Flu Vaccine 10:44:04 CDT CPT-000 Give Pneumovax 10:44:03 CDT CPT-89789 Port a cath flush 17:04:43 CDT CPT-96996 Prevnar 13 11:19:17 CDT CPT-08532 Fluzone Quadrivalent preservative free (>=3yrs.) 11:19: 17 CDT CPT-62789 Immunization Each Additional Inj 11:19:17 CDT CPT-75455 Immunization Single Admin 11:19:17 CDT CPT-74759 Port a cath flush 13:28:22 CDT CPT-TCMM Transitional Care Mgmt-Moderate 13:40:15 CDT CPT-G0008 Administration of Influenza Virus Vaccine 13:59:20 CDT CPT-73047 Fluzone High-Dose Intramuscular Suspension 13:59:20 CDT CPT-99273 Venipuncture Draw Fee 09:56:19 CDT CPT-OV Office Visit 15:46:10 CDT
--- OUTSIDE RECORDS SUMMARY | 2017-08-25 21:18 | XMS REPORT | Clinical Summary ---
Author Author Admin, IWONA Organization [employer] Address Unknown Phone Unavailable Allergies, Adverse Reactions, Alerts Allergy Name Reaction Description Start Date Severity Status Provider ERYTHROMYCIN Stomach cramps Moderate Active Prosper Arenas MD CODEINE Critical Active Maliheh Ziglari TUB WASH OPERATOR DARVOCET Critical Active Maliheh Ziglari TUB WASH OPERATOR LEVAQUIN Critical Active Maliheh Ziglari TUB WASH OPERATOR Conditions or Problems Problem Name Problem [...] type II, uncontrolled 250.02 Active Maliheh Ziglari TUB WASH OPERATOR Diabetes mellitus 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, [...] with hyperglycemia 250.00 Active 03/21 Maliheh Ziglari TUB WASH OPERATOR Diabetes mellitus 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, type II or unspecified type, not stated as uncontrolled [facility] use of insulin treatment V58.67 Active Luxiheh Rodrigoglari TUB WASH OPERATOR Long-term (current) use of insulin Diabetes mellitus, type II with hypoglycemia 250.80 Active 07/22 Maliheh Ziglari TUB WASH OPERATOR Diabetes mellitus with other specified manifestations, type II or unspecified type, not stated as uncontrolled 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 sugar GLUCOSE BLOOD 55382423610 Active Maliheh Ziglari TUB WASH OPERATOR Active NOVOLOG FLEXPEN 100 UNIT/ML SOPN Take 25 units with each meal, add 1u/50 for blood sugars above 150. INSULIN ASPART 62341788202 Active Maliheh Ziglari TUB WASH OPERATOR Active LANTUS SOLOSTAR 100 UNIT/ML SOLN Take 40 units at 7-8pm daily INSULIN GLARGINE 43583039878 Active Maliheh Ziglari TUB WASH OPERATOR Active MECLIZINE HCL 25 MG TABS 1 daily needed for dizziness MECLIZINE HCL 48563221855 No Longer Active Maliheh Ziglari TUB WASH OPERATOR Active BENZONATATE 200 MG CAPS 1 tab, 2-3 times a day BENZONATATE 42340723059 No Longer Active Maliheh Ziglari TUB WASH OPERATOR Active HALOPERIDOL 0.5 MG TABS one tablet three times a day HALOPERIDOL 63679181137 No Longer Active Maliheh Ziglari TUB WASH OPERATOR Active TRAZODONE HCL 50 MG TAB three tablets at bed time TRAZODONE HCL 91083505651 No Longer Active Moy Wallacesania TUB WASH OPERATOR Active REVLIMID 25 MG CAPS one capsule daily for 21 days then off for 7 days 2014 LENALIDOMIDE 89555765261 No Longer Active Moy Ziglari TUB WASH OPERATOR Active ZITHROMAX Z-EDDIE 250 MG TABS 2 today, then 1 daily for 4 days 2014 AZITHROMYCIN 71726383652 No Longer Active Augustina Mata NURSING HOME PHYSICIAN Active NOVOLIN R RELION 100 UNIT/ML INJ SOLN 30- 40 units each meal sliding scale INSULIN REGULAR HUMAN 23592006128 No Longer Active Moy Wallacekymari TUB WASH OPERATOR Active LISINOPRIL 5 MG TABS 1 daily LISINOPRIL 18239587611 Active Prosper Arenas MD Active CALCIUM 500/D 500-200 MG-UNIT TABS one tablet daily CALCIUM CARBONATE- VITAMIN D 26955390603 Active Prosper Arenas MD Active HYDROCHLOROTHIAZIDE 25 MG TABS 1 tablet by mouth daily HYDROCHLOROTHIAZIDE 37746147893 Active Prosper Arenas MD Active HYDROCODONE-ACETAMINOPHEN 5-500 MG TABS 1-2 FOUR TIMES A DAY, PRN HYDROCODONE-ACETAMINOPHEN 07813606987 No Longer Active Prosper Arenas MD Active SIMVASTATIN 80 MG TABS 1/2 tablet daily SIMVASTATIN 97076031060 Active Prosper Arenas MD Active METOPROLOL TARTRATE 25 MG TABS 1/2 tablet twice a day METOPROLOL TARTRATE 51301452064 Active Prosper Arenas MD Active ASPIRIN 81 MG TAB 1 tablet by mouth daily ASPIRIN 19785731771 Active Prosper Arenas MD Active OMEPRAZOLE 20 MG CPDR 1 qd OMEPRAZOLE 22755300393 Active DARCIE Miller Active DOXYCYCLINE HYCLATE 100 MG CAPS take one capsule by mouth twice daily for ten days DOXYCYCLINE HYCLATE 79071742413 No Longer Active Mekhi Dukes MD Active DOXYCYCLINE HYCLATE 100 MG CAPS take one capsule by mouth twice daily for ten days DOXYCYCLINE HYCLATE 100 MG CAPS 6572340 DOXYCYCLINE HYCLATE Inactive HYDROCODONE-ACETAMINOPHEN 5-500 MG TABS [...] days 2014 ZITHROMAX Z-EDDIE 250 MG TABS 0660153 AZITHROMYCIN Inactive REVLIMID 25 MG CAPS one capsule daily for 21 days then off for 7 days 2014 REVLIMID 25 MG CAPS LENALIDOMIDE Inactive TRAZODONE HCL 50 MG TAB three tablets at bed time TRAZODONE HCL 50 MG TAB 314486 TRAZODONE HCL Inactive HALOPERIDOL 0.5 MG TABS one tablet three times a day HALOPERIDOL 0.5 MG TABS 605967 HALOPERIDOL Inactive BENZONATATE 200 MG CAPS 1 tab, 2-3 times a day BENZONATATE 200 MG CAPS 782713 BENZONATATE Inactive MECLIZINE HCL 25 MG TABS 1 daily needed for dizziness MECLIZINE HCL 25 MG TABS 352187 MECLIZINE HCL Inactive Immunizations Vaccine Administration Date [...] hemoglobin 7.7 % 4.3-6.0 Lab Report: LIPID PANEL - Chemistry cholesterol, serum 156 mg/dL 903-302 9774/02/20 HDL cholesterol, serum 52 mg/dL > OR=40 [...] mg/dL Encounters Code Encounter Date Provider Facility CPT-94122 Level 3 New Patient 15:44:53 FLOORMAN Mekhi Dukes MD [facility] CPT-12172 Level 3 Est. Patient 14:53:34 FLOORMAN Prosper Arenas MD [facility] CPT-19968 Level 4 Est. Patient 10:05:41 FLOORMAN Moy PARISH [facility] CPT-49613 Level 3 Est. Patient 11:18:32 CDT Moy Garcia [facility] CPT-71786 Level 4 Est. Patient 11:05:10 CDT Moy Garcia [facility] CPT-04466 Level 3 Est. Patient 11:08:27 FLOORMAN Moy Garcia [facility] CPT-07368 Level 4 Est. Patient 10:43:59 CDT Prosper Arenas MD [facility] CPT-28520 Level 3 Est. Patient 10:51:19 [facility] Level 3 Est. Patient 10:20:31 [facility]T [facility] CPT-61148 Level 3 Est. Patient 17:08:[address] [facility] CPT-96498 Level 2 Est. Patient 13:54:36 CDT Augustina Mata APRN [facility] CPT-23296 Level 3 Est. Patient 12:00:42 CDT Prosper Arenas MD [facility] CPT-98796 Level 3 Est. Patient 09:57:28 [facility] CPT-07173 Level 3 Est. Patient 11:41:19 FLOORMAN Moy Garcia [facility] CPT-66083 Level 4 Est. Patient 17:07:35 [facility] CPT-27897 Level 5 Est. Patient 14:33:32 CDT Moy Wallacerex [facility] CPT-47940 Level 3 Est. Patient 12:25:35 CDT Prosper Arenas MD [facility] Procedures Code Procedure Name Date Entry Date Standard Description CPT-000 Give Appropriate Flu Vaccine 10:13:55 FLOORMAN CPT-000 Give Immunizations Due 10:13:55 FLOORMAN CPT-66628 HGBA1C - LAB USE ONLY 09:42:47 FLOORMAN CPT-83738 TPSA - LAB USE ONLY 09:42:46 FLOORMAN CPT-93161 Venipuncture Draw Fee 09:42:46 FLOORMAN CPT-44056 Port a cath flush 13:33:18 FLOORMAN CPT-35658 First Vx - Ix admin for Medicare patients 10:42:57 FLOORMAN CPT-35946 Fluzone Preservative Free Intramuscular Suspension 10:42 :57 FLOORMAN CPT-G0438 Initial Annual Wellness Exam 10:13:55 FLOORMAN CPT-000 Give Appropriate Flu Vaccine 10:44:04 CDT CPT-000 Give Pneumovax 10:44:03 CDT CPT-23735 Port a cath flush 17:04:43 CDT CPT-90777 Prevnar 13 11:19:17 CDT CPT-23316 Fluzone Quadrivalent preservative free (>=3yrs.) 11:19: 17 CDT CPT-39150 Immunization Each Additional Inj 11:19:17 CDT CPT-50295 Immunization Single Admin 11:19:17 CDT CPT-30270 Port a cath flush 13:28:22 CDT CPT-TCMM Transitional Care Mgmt-Moderate 13:40:15 CDT CPT-G0008 Administration of Influenza Virus Vaccine 13:59:20 CDT CPT-12401 Fluzone High-Dose Intramuscular Suspension 13:59:20 CDT CPT-23878 Venipuncture Draw Fee 09:56:19 CDT CPT-OV Office Visit 15:46:10 CDT
--- OUTSIDE RECORDS SUMMARY | 2017-08-25 21:19 | XMS REPORT | Clinical Summary ---
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, 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 II [...] type II, uncontrolled 250.02 Active Maliheh Rodrigoglari FUR COAT SEWER Diabetes mellitus 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, type II or unspecified type, uncontrolled Chest pain, atypical 786.59 Resolved Mehki Dukes MD Other chest pain Bronchitis 490 [...] with hyperglycemia 250.00 Active 03/21 Maliheh Ziglari FUR COAT SEWER Diabetes mellitus 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, type II or unspecified type, not stated as uncontrolled retirement use of insulin treatment V58.67 Active Luxiheh Rodrigoglari FUR COAT SEWER Long-term (current) use of insulin Diabetes mellitus, type II with hypoglycemia 250.80 Active 07/22 Maliheh Ziglari FUR COAT SEWER Diabetes mellitus with other specified manifestations, type II or unspecified type, not stated as uncontrolled 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 Maliheh Ziglari FUR COAT SEWER Diabetes mellitus with renal manifestations, type II or unspecified type, not stated as uncontrolled Wellness exam V70.0 Active Dee Palmer APRN Routine general medical examination at a health care facility Fitting and adjustment of vascular catheter V58.81 Active 02/06 Dee Palmer APRN Encounter for fitting and adjustment of vascular catheter Unawareness of hypoglycemia in diabetes mellitus, type II 250.80 Active Maliheh Ziglari FUR COAT SEWER Diabetes mellitus with other specified manifestations, [...] specified as recurrent) Gastritis Active Maliheh Ziglari FUR COAT SEWER Unspecified gastritis and gastroduodenitis, without mention [...] 1-2 every 4-6 hrs prn 02/25 HYDROCODONE-ACETAMINOPHEN 04394204296 Active Marina Messina APRN Active ASPIRIN 81 MG ORAL TABLET 1 tablet by mouth daily ASPIRIN 71731977610 No Longer Active Marina Messina APRN Active SIMVASTATIN 80 MG ORAL TABLET 1/2 tablet daily SIMVASTATIN 38266569324 No Longer Active Mekhi Dukes MD Active OMEPRAZOLE 20 MG ORAL CAPSULE DELAYED RELEASE 1 qd OMEPRAZOLE 65106211476 No Longer Active Mekhi Dukes MD Active METOPROLOL TARTRATE 25 MG ORAL TABLET 1/2 tablet twice a day METOPROLOL TARTRATE 70912531067 No Longer Active Mekhi Dukes MD Active LISINOPRIL 5 MG ORAL TABLET 1 daily LISINOPRIL 54286063719 No Longer Active Mekhi Dukes MD Active NOVOLOG FLEXPEN 100 UNIT/ML SUBCUTANEOUS SOLUTION PEN-INJECTOR Take 8 units with each meal, add 1u/50 for blood sugars above 150. INSULIN ASPART 38525137098 Active Malpapo DURANTP Active GABAPENTIN 300 MG ORAL CAPSULE 1 tab BID GABAPENTIN 70927378854 Active Tami Miller RN Active PREDNISONE 20 MG ORAL TABLET Take 2 daily for 3 days and then 1 daily for 3 days PREDNISONE 65730980519 No Longer Active Maliheh Ziglari FUR COAT SEWER Active BENZONATATE 200 MG ORAL CAPSULE Take 1 tablet 3 times a day as needed for cough BENZONATATE 58426046614 No Longer Active Prosper Arenas MD Active HYDROCHLOROTHIAZIDE 25 MG ORAL TABLET 1 tablet by mouth daily HYDROCHLOROTHIAZIDE 22407074002 No Longer Active Prosper Arenas MD Active ACCU-CHEK JOANNA PLUS IN VITRO STRIP check blood sugars 5x a day, before each meal and bedtime and 15 minutes after treating a low blood. sugar GLUCOSE BLOOD 02999856190 Active Maliheh Ziglari FUR COAT SEWER Active LANTUS SOLOSTAR 100 UNIT/ML SUBCUTANEOUS SOLUTION PEN-INJECTOR Take 40 units at 7-8pm daily INSULIN GLARGINE 38223038307 Active Maliheh Ziglari FUR COAT SEWER Active MECLIZINE HCL 25 MG ORAL TABLET 1 daily needed for dizziness 2015 MECLIZINE HCL 21355201534 No Longer Active Maliheh Ziglari FUR COAT SEWER Active BENZONATATE 200 MG ORAL CAPSULE 1 tab, 2-3 times a day BENZONATATE 65148416204 No Longer Active Maliheh Ziglari FUR COAT SEWER Active HALOPERIDOL 0.5 MG ORAL TABLET one tablet three times a day HALOPERIDOL 06989871438 No Longer Active Maliheh Ziglari FUR COAT SEWER Active TRAZODONE HCL 50 MG ORAL TABLET three tablets at bed time TRAZODONE HCL 30845718767 No Longer Active Maliheh Ziglari FUR COAT SEWER Active REVLIMID 25 MG ORAL CAPSULE one capsule daily for 21 days then off for 7 days LENALIDOMIDE 02016805746 No Longer Active Maliheh Ziglari FUR COAT SEWER Active ZITHROMAX Z-EDDIE 250 MG ORAL TABLET 2 today, then 1 daily for 4 days AZITHROMYCIN 97644467860 No Longer Active Augustina Mata APRN Active NOVOLIN R RELION 100 UNIT/ML INJECTION SOLUTION 30- 40 units each meal sliding scale INSULIN REGULAR HUMAN 90924013011 No Longer Active Maliheh Ziglari FUR COAT SEWER Active CALCIUM 500/D 500-200 MG-UNIT ORAL TABLET one tablet daily CALCIUM CARBONATE-VITAMIN D 58205349285 Active Prosper Arenas MD Active HYDROCODONE-ACETAMINOPHEN 5-500 MG ORAL TABLET 1-2 FOUR TIMES A DAY, PRN 2010 HYDROCODONE-ACETAMINOPHEN 71641094006 No Longer Active Prosper Arenas MD Active DOXYCYCLINE HYCLATE 100 MG ORAL CAPSULE take one capsule by mouth twice daily for ten days DOXYCYCLINE HYCLATE 54491031132 No Longer Active Mekhi Dukes MD Active DOXYCYCLINE HYCLATE 100 MG ORAL CAPSULE take one capsule by mouth twice daily for ten days DOXYCYCLINE HYCLATE 100 MG ORAL CAPSULE 5334302 DOXYCYCLINE HYCLATE Inactive HYDROCODONE-ACETAMINOPHEN 5-500 MG ORAL TABLET 1-2 FOUR TIMES A DAY, PRN 2010 HYDROCODONE-ACETAMINOPHEN 5-500 MG ORAL TABLET 520113 HYDROCODONE-ACETAMINOPHEN Inactive NOVOLIN R RELION 100 UNIT/ML INJECTION SOLUTION 30- 40 units each meal sliding scale NOVOLIN R RELION 100 UNIT/ML INJECTION SOLUTION INSULIN REGULAR HUMAN Inactive ZITHROMAX Z-EDDIE 250 MG ORAL TABLET 2 today, then 1 daily for 4 days ZITHROMAX Z-EDDIE 250 MG ORAL TABLET 235899 AZITHROMYCIN Inactive REVLIMID 25 MG ORAL CAPSULE one capsule daily for 21 days then off for 7 days REVLIMID 25 MG ORAL CAPSULE LENALIDOMIDE Inactive TRAZODONE HCL 50 MG ORAL TABLET three tablets at bed time TRAZODONE HCL 50 MG ORAL TABLET 101192 TRAZODONE HCL Inactive HALOPERIDOL 0.5 MG ORAL TABLET one tablet three times a day HALOPERIDOL 0.5 MG ORAL TABLET 524191 HALOPERIDOL Inactive BENZONATATE 200 MG ORAL CAPSULE 1 tab, 2-3 times a day BENZONATATE 200 MG ORAL CAPSULE 005461 BENZONATATE Inactive MECLIZINE HCL 25 MG ORAL TABLET 1 daily needed for dizziness 2015 MECLIZINE HCL 25 MG ORAL TABLET 424782 MECLIZINE HCL Inactive HYDROCHLOROTHIAZIDE 25 MG ORAL TABLET 1 tablet by mouth daily HYDROCHLOROTHIAZIDE 25 MG ORAL TABLET 467026 HYDROCHLOROTHIAZIDE Inactive PREDNISONE 20 MG ORAL TABLET Take 2 daily for 3 days and then 1 daily for 3 days PREDNISONE 20 MG ORAL TABLET 505386 PREDNISONE Inactive LISINOPRIL 5 MG ORAL TABLET 1 daily LISINOPRIL 5 MG ORAL TABLET 614627 LISINOPRIL Inactive METOPROLOL TARTRATE 25 MG ORAL TABLET 1/2 tablet twice a day METOPROLOL TARTRATE 25 MG ORAL TABLET 249535 METOPROLOL TARTRATE Inactive OMEPRAZOLE 20 MG ORAL CAPSULE DELAYED RELEASE 1 qd OMEPRAZOLE 20 MG ORAL CAPSULE DELAYED RELEASE 792879 OMEPRAZOLE Inactive SIMVASTATIN 80 MG ORAL TABLET 1/2 tablet daily SIMVASTATIN 80 MG ORAL TABLET 112481 SIMVASTATIN Inactive ASPIRIN 81 MG ORAL TABLET 1 tablet by mouth daily ASPIRIN 81 MG ORAL TABLET 457081 ASPIRIN Inactive BENZONATATE 200 MG ORAL CAPSULE Take 1 tablet 3 times a day as needed for cough BENZONATATE 200 MG ORAL CAPSULE 231157 BENZONATATE Inactive Immunizations Vaccine Administration Date Value [...] W/DIFF - Chemistry sodium, serum 137 mmol/L 090-616 4336/08/16 carbon dioxide, venous blood 26.3 mmol/L 21.0-32.0 [...] LABS - Chemistry cholesterol, serum 115 mg/dL 252-307 0411/08/18 triglyceride, serum, fasting 89 mg/dL 30-200 HDL cholesterol, serum 46 mg/dL 32-60 LDL cholesterol, serum 51 mg/dL 0-130 blood glucose 104 mg/dL 65-110 Lab Report: LIPID PANEL- REPOWER LAB - Chemistry cholesterol, serum 156 mg/dL 076-643 0879/02/20 HDL cholesterol, serum 52 mg/dL > OR=40 [...] mg/dL Encounters Code Encounter Date Provider Facility CPT-26319 Level 3 Est. Patient 10:53:[address] [facility] [place] CPT-81637 Level 3 Est. Patient 17:11:55 PERSONAL COACH Ismael Gracia MD [facility] CPT-37124 Level 4 Est. Patient 16:29:19 CDT Mekhi Dukes MD [facility] CPT-46859 Level 3 New Patient 17:05:24 CDT Ismael Gracia MD [facility] CPT-93892 Level 2 Est. Patient 15:43:17 CDT Mekhi Dukes MD [facility] CPT-99508 Level 3 Est. Patient 09:30:[address] [facility] CPT-34951 Level 3 Est. Patient 10:00:14 CDT Mekhi Dukes MD [facility] CPT-91997 Level 3 Est. Patient 12:24:09 CDT Moy Garcia [facility] CPT-99665 Level 3 Est. Patient 14:34:57 CDT Prosper Arenas MD [facility] CPT-16047 Level 3 New Patient 15:44:53 PERSONAL COACH Mekhi Dukes MD [facility] CPT-15315 Level 3 Est. Patient 14:53:34 PERSONAL COACH Prosper Arenas MD [facility] CPT-38010 Level 4 Est. Patient 10:05:41 PERSONAL COACH Moy Rodrigokymrex [facility] CPT-33597 Level 3 Est. Patient 11:18:32 [facility] Level 4 Est. Patient 11:05:10 CDT Moy Garcia [facility] CPT-10222 Level 3 Est. Patient 11:08:27 PERSONAL COACH Moy Garcia [facility] CPT-33686 Level 4 Est. Patient 10:43:59 CDT Prosper Arenas MD [facility] CPT-05550 Level 3 Est. Patient 10:51:19 CDT Moy Garcia [facility] CPT-20020 Level 3 Est. Patient 10:20:31 CDT Moy Garcia [facility] CPT-98740 Level 3 Est. Patient 17:08:45 CDT Moy Garcia [facility] CPT-20943 Level 2 Est. Patient 13:54:36 CDT Augustina Mata APRN [facility] CPT-97394 Level 3 Est. Patient 12:00:42 CDT Prosper Arenas MD [facility]-31987 Level 3 Est. Patient 09:57:[address] [facility] CPT-39101 Level 3 Est. Patient 11:41:19 PERSONAL COACH [facility] CPT-82883 Level 4 Est. Patient 17:07:35 PERSONAL COACH [facility] CPT-81852 Level 5 Est. Patient 14:33:[address] CPT-82610 Level 3 Est. Patient 12:25:35 CDT Prosper Arenas MD [facility] Procedures Code Procedure Name Date Entry Date Standard Description CPT-28325 Postop F/U Visit 17:20:20 PERSONAL COACH CPT-G0439 Subsequent Annual Wellness Exam 08:39:41 PERSONAL COACH CPT-000 Give Appropriate Flu Vaccine 10:13:55 PERSONAL COACH CPT-000 Give Immunizations Due 10:13:55 PERSONAL COACH CPT-40525 HGBA1C - LAB USE ONLY 09:42:47 PERSONAL COACH CPT-62831 TPSA - LAB USE ONLY 09:42:46 PERSONAL COACH CPT-76544 Venipuncture Draw Fee 09:42:46 PERSONAL COACH CPT-40288 Port a cath flush 13:33:18 PERSONAL COACH CPT-49865 First Vx - Ix admin for Medicare patients 10:42:57 PERSONAL COACH CPT-47004 Fluzone Preservative Free Intramuscular Suspension 10:42 :57 PERSONAL COACH CPT-G0438 Initial Annual Wellness Exam 10:13:55 PERSONAL COACH CPT-000 Give Appropriate Flu Vaccine 10:44:04 CDT CPT-000 Give Pneumovax 10:44:03 CDT CPT-55561 Port a cath flush 17:04:43 CDT CPT-30294 Prevnar 13 11:19:17 CDT CPT-95982 Fluzone Quadrivalent preservative free (>=3yrs.) 11:19: 17 CDT CPT-37850 Immunization Each Additional Inj 11:19:17 CDT CPT-14791 Immunization Single Admin 11:19:17 CDT CPT-50591 Port a cath flush 13:28:22 CDT CPT-TCMM Transitional Care Mgmt-Moderate 13:40:15 CDT CPT-G0008 Administration of Influenza Virus Vaccine 13:59:20 CDT CPT-91352 Fluzone High-Dose Intramuscular Suspension 13:59:20 CDT CPT-69671 Venipuncture Draw Fee 09:56:19 CDT CPT-OV Office Visit 15:46:10 CDT
--- OUTSIDE RECORDS SUMMARY | 2017-08-25 21:19 | XMS REPORT ---
Author Author [facility] Medical Staff Organization [facility] Address [address] [id number] Phone [phone] Care Team Providers Care Glass Technician/Installer Name Role Phone YOMI RAMESH MD PP [phone] Summary purpose TRANSITION OF CARE AUTO GENERATION Chief Complaint and Reason for Visit No authorized Reason for Visit (Admitting Diagnosis) is available for this visit. Problem list No authorized problems tracked for continuity of care are available for this visit. Encounters No authorized problems tracked for encounter diagnoses are available for this visit. Medications No home medications recorded for this patient visit Allergies, [...] visit Relevant diagnostic tests and/or laboratory data No authorized results are available for this patient visit History of procedures No procedures recorded for [...]
--- OUTSIDE RECORDS SUMMARY | 2017-08-25 21:20 | XMS REPORT | Clinical Summary ---
Author Author Admin, IWONA Organization [employer] Address Unknown Phone Unavailable Allergies, Adverse Reactions, Alerts Allergy Name Reaction Description Start Date Severity Status Provider ERYTHROMYCIN Stomach cramps Moderate Active Prosper Arenas MD CODEINE Critical Active Maliheh Ziglari SEARCH CONSULTANT DARVOCET Critical Active Maliheh Ziglari SEARCH CONSULTANT LEVAQUIN Critical Active Maliheh Ziglari SEARCH CONSULTANT Conditions or Problems Problem Name Problem [...] type II, uncontrolled 250.02 Active Maliheh Ziglari SEARCH CONSULTANT Diabetes mellitus 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, [...] with hyperglycemia 250.00 Active 03/21 Maliheh Ziglari SEARCH CONSULTANT Diabetes mellitus 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, type II or unspecified type, not stated as uncontrolled shelter use of insulin treatment V58.67 Active Maliheh Ziglari SEARCH CONSULTANT Long-term (current) use of insulin Diabetes mellitus, type II with hypoglycemia 250.80 Active 07/22 Maliheh Ziglari SEARCH CONSULTANT Diabetes mellitus with other specified manifestations, type II or unspecified type, not stated as uncontrolled 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 Maliheh Ziglari SEARCH CONSULTANT Diabetes mellitus with renal manifestations, type II or unspecified type, not stated as uncontrolled Wellness exam V70.0 Active Dee Palmer APRN Routine general medical examination at a health care facility Fitting and adjustment of vascular catheter V58.81 Active 02/06 Dee Palmer APRN Encounter for fitting and adjustment of vascular catheter Unawareness of hypoglycemia in diabetes mellitus, type II 250.80 Active Maliheh Ziglari SEARCH CONSULTANT Diabetes mellitus with other specified manifestations, type [...] then 1 daily for 3 days PREDNISONE 35344364424 No Longer Active Moy PARISH Active BENZONATATE 200 MG CAPS Take 1 tablet 3 times a day as needed for cough 07/29 BENZONATATE 94108666634 No Longer Active Prosper Arenas MD Active HYDROCHLOROTHIAZIDE 25 MG TABS 1 tablet by mouth daily HYDROCHLOROTHIAZIDE 97058552260 No Longer Active Prosper Arenas MD Active ACCU-CHEK JOANNA PLUS STRP check blood sugars 5x a day, before each meal and bedtime and 15 minutes after treating a low blood. sugar GLUCOSE BLOOD 43699319209 Active Malpapo Wallaceglari SEARCH CONSULTANT Active NOVOLOG FLEXPEN 100 UNIT/ML SOPN Take 25 units with each meal, add 1u/50 for blood sugars above 150. INSULIN ASPART 64918553465 Active Malpapo Wallaceglari SEARCH CONSULTANT Active LANTUS SOLOSTAR 100 UNIT/ML SOLN Take 40 units at 7-8pm daily INSULIN GLARGINE 69078367250 [facility] Zigl[facility] SEARCH CONSULTANT Active MECLIZINE HCL 25 MG TABS 1 daily needed for dizziness MECLIZINE HCL 69103470538 No Longer Active Maleh Ziglari SEARCH CONSULTANT Active BENZONATATE 200 MG CAPS 1 tab, 2-3 times a day BENZONATATE 94218731254 No Longer [facility] Zigl[facility] SEARCH CONSULTANT Active HALOPERIDOL 0.5 MG TABS one tablet three times a day HALOPERIDOL 71947911903 No Longer [facility] Ziglari SEARCH CONSULTANT Active TRAZODONE HCL 50 MG TAB three tablets at bed time TRAZODONE HCL 30284622031 No Longer Active [facility] Ziglari SEARCH CONSULTANT Active REVLIMID 25 MG CAPS one capsule daily for 21 days then off for 7 days 2014 LENALIDOMIDE 34467811304 No Longer Active [facility] Ziglari SEARCH CONSULTANT Active ZITHROMAX Z-EDDIE 250 MG TABS 2 today, then 1 daily for 4 days 2014 AZITHROMYCIN 50935826883 No Longer Active Augustina Mata BESSY Active NOVOLIN R RELION 100 UNIT/ML INJ SOLN 30- 40 units each meal sliding scale INSULIN REGULAR HUMAN 26950429495 No Longer Active [facility] Rodrigoglari SEARCH CONSULTANT Active LISINOPRIL 5 MG TABS 1 daily LISINOPRIL 92602710026 Active Prosper Arenas MD Active CALCIUM 500/D 500-200 MG-UNIT TABS one tablet daily CALCIUM CARBONATE- VITAMIN D 65071385298 Active Prosper Arenas MD Active HYDROCODONE-ACETAMINOPHEN 5-500 MG TABS 1-2 FOUR TIMES A DAY, PRN HYDROCODONE-ACETAMINOPHEN 21804817536 No Longer Active Prosper Arenas MD Active SIMVASTATIN 80 MG TABS 1/2 tablet daily SIMVASTATIN 72889081140 Active Prosper Arenas MD Active METOPROLOL TARTRATE 25 MG TABS 1/2 tablet twice a day METOPROLOL TARTRATE 82628805622 Active Prosper Arenas MD Active ASPIRIN 81 MG TAB 1 tablet by mouth daily ASPIRIN 61872171287 Active Prosper Arenas MD Active OMEPRAZOLE 20 MG CPDR 1 qd OMEPRAZOLE 07640244524 Active DARCIE Miller Active DOXYCYCLINE HYCLATE 100 MG CAPS take one capsule by mouth twice daily for ten days DOXYCYCLINE HYCLATE 28973137170 No Longer Active Mekhi Dukes MD Active DOXYCYCLINE HYCLATE 100 MG CAPS take one capsule by mouth twice daily for ten days DOXYCYCLINE HYCLATE 100 MG CAPS 5739992 DOXYCYCLINE HYCLATE Inactive HYDROCODONE-ACETAMINOPHEN 5-500 MG TABS [...] days 2014 ZITHROMAX Z-EDDIE 250 MG TABS 0434633 AZITHROMYCIN Inactive REVLIMID 25 MG CAPS one capsule daily for 21 days then off for 7 days 2014 REVLIMID 25 MG CAPS LENALIDOMIDE Inactive TRAZODONE HCL 50 MG TAB three tablets at bed time TRAZODONE HCL 50 MG TAB 476522 TRAZODONE HCL Inactive HALOPERIDOL 0.5 MG TABS one tablet three times a day HALOPERIDOL 0.5 MG TABS 337016 HALOPERIDOL Inactive BENZONATATE 200 MG CAPS 1 tab, 2-3 times a day BENZONATATE 200 MG CAPS 429690 BENZONATATE Inactive MECLIZINE HCL 25 MG TABS 1 daily needed for dizziness MECLIZINE HCL 25 MG TABS 709846 MECLIZINE HCL Inactive HYDROCHLOROTHIAZIDE 25 MG TABS 1 tablet by mouth daily HYDROCHLOROTHIAZIDE 25 MG TABS 783540 HYDROCHLOROTHIAZIDE Inactive PREDNISONE 20 MG TABS Take 2 daily for 3 days and then 1 daily for 3 days PREDNISONE 20 MG TABS 398026 PREDNISONE Inactive BENZONATATE 200 MG CAPS Take 1 tablet 3 times a day as needed for cough 07/29 BENZONATATE 200 MG CAPS 495194 BENZONATATE Inactive Immunizations Vaccine Administration Date Value [...] LAB - Chemistry cholesterol, serum 156 mg/dL 313-880 2293/02/20 HDL cholesterol, serum 52 mg/dL > OR=40 [...] mg/dL Encounters Code Encounter Date Provider Facility CPT-36209 Level 3 Est. Patient 12:24:09 CDT Moy Garcia [facility] CPT-60024 Level 3 Est. Patient 14:34:57 CDT Prosper Arenas MD [facility] CPT-02205 Level 3 New Patient 15:44:53 LEGAL SUPPORT MANAGER Mekhi Dukes MD [facility] CPT-77220 Level 3 Est. Patient 14:53:34 LEGAL SUPPORT MANAGER Prosper Arenas MD [facility] CPT-87393 Level 4 Est. Patient 10:05:41 LEGAL SUPPORT MANAGER [facility]-930[facility] Level 3 Est. Patient 11:18:32 CDT Moy Garcia [facility] CPT-58683 Level 4 Est. Patient 11:05:10 CDT Moy Garcia [facility] CPT-57857 Level 3 Est. Patient 11:08:27 LEGAL SUPPORT MANAGER Moy Garcia [facility] [place] [facility] CPT-42602 Level 4 Est. Patient 10:43:59 CDT Prosper Arenas MD [facility] CPT-76966 Level 3 Est. Patient 10:51:19 CDT Moy Garcia [facility] [facility] CPT-06608 Level 3 Est. Patient 10:20:31 [facility] CPT-21469 Level 3 Est. Patient 17:08:45 [facility] Level 2 Est. Patient 13:54:36 CDT Augustina Mata APRN [facility] CPT-69311 Level 3 Est. Patient 12:00:42 CDT Prosper Arenas MD [facility] CPT-93039 Level 3 Est. Patient 09:57:28 LEGAL SUPPORT MANAGER Moy Garcia [facility] [facility] CPT-20286 Level 3 Est. Patient 11:41:19 LEGAL SUPPORT MANAGER Moy Garcia [facility] [place] [facility] CPT-53941 Level 4 Est. Patient 17:07:35 LEGAL SUPPORT MANAGER Moy Garcia [facility] [facility] CPT-80558 Level 5 Est. Patient 14:33:32 [facility] [place] [facility] CPT-56819 Level 3 Est. Patient 12:25:35 CDT Prosper Arenas MD [facility] Procedures Code Procedure Name Date Entry Date Standard Description CPT-000 Give Appropriate Flu Vaccine 10:13:55 LEGAL SUPPORT MANAGER CPT-000 Give Immunizations Due 10:13:55 LEGAL SUPPORT MANAGER CPT-57770 HGBA1C - LAB USE ONLY 09:42:47 LEGAL SUPPORT MANAGER CPT-66486 TPSA - LAB USE ONLY 09:42:46 LEGAL SUPPORT MANAGER CPT-66373 Venipuncture Draw Fee 09:42:46 LEGAL SUPPORT MANAGER CPT-63236 Port a cath flush 13:33:18 LEGAL SUPPORT MANAGER CPT-28032 First Vx - Ix admin for Medicare patients 10:42:57 LEGAL SUPPORT MANAGER CPT-01700 Fluzone Preservative Free Intramuscular Suspension 10:42 :57 LEGAL SUPPORT MANAGER CPT-G0438 Initial Annual Wellness Exam 10:13:55 LEGAL SUPPORT MANAGER CPT-000 Give Appropriate Flu Vaccine 10:44:04 CDT CPT-000 Give Pneumovax 10:44:03 CDT CPT-12374 Port a cath flush 17:04:43 CDT CPT-60110 Prevnar 13 11:19:17 CDT CPT-53566 Fluzone Quadrivalent preservative free (>=3yrs.) 11:19: 17 CDT CPT-68984 Immunization Each Additional Inj 11:19:17 CDT CPT-45346 Immunization Single Admin 11:19:17 CDT CPT-66273 Port a cath flush 13:28:22 CDT CPT-TCMM Transitional Care Mgmt-Moderate 13:40:15 CDT CPT-G0008 Administration of Influenza Virus Vaccine 13:59:20 CDT CPT-18088 Fluzone High-Dose Intramuscular Suspension 13:59:20 CDT CPT-72474 Venipuncture Draw Fee 09:56:19 CDT CPT-OV Office Visit 15:46:10 CDT
--- OUTSIDE RECORDS SUMMARY | 2017-08-25 21:20 | XMS REPORT | Clinical Summary ---
Author Author Admin, IWONA Organization [employer] Address Unknown Phone Unavailable Allergies, Adverse Reactions, Alerts Allergy Name Reaction Description Start Date Severity Status Provider ERYTHROMYCIN Stomach cramps Moderate Active Prosper Arenas MD CODEINE Critical Active Maliheh Ziglari COMMUNICATIONS MANAGER DARVOCET Critical Active Maliheh Ziglari COMMUNICATIONS MANAGER LEVAQUIN Critical Active Maliheh Ziglari COMMUNICATIONS MANAGER Conditions or Problems Problem Name Problem Code Onset Date Status Entry Date Provider Comment Standard Description Annotate Diabetes, Type 2 250.00 Resolved Tami Miller 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 button paster mellitus 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, type II [...] type II, uncontrolled 250.02 Active Maliheh Rodrigoglari COMMUNICATIONS MANAGER Diabetes mellitus 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, [...] Dukes MD Cough Vertigo 780.4 Resolved Mekhi Dukse MD Dizziness and giddiness Preventive health care V70.0 Active Betsy Ronnie Routine general medical examination at a health care facility Encounter for fitting and adjustment of vascular catheter V58.81 Resolved Tami Miller RN Encounter for fitting and adjustment of vascular catheter Type 2 diabetes mellitus with hyperglycemia 250.00 Active 03/21 Maliheh Ziglari COMMUNICATIONS MANAGER Diabetes mellitus 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, type II or unspecified type, not stated as uncontrolled residential use of insulin treatment V58.67 Active Luxiheh Rodrigoglari COMMUNICATIONS MANAGER Long-term (current) use of insulin Diabetes mellitus, type II with hypoglycemia 250.80 Active 07/22 Maliheh Ziglari COMMUNICATIONS MANAGER Diabetes mellitus with other specified manifestations, type II or unspecified type, not stated as uncontrolled 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 INSULIN ASPART 89132744357 Active Moy DURANTP Active GABAPENTIN 300 MG ORAL CAPS 1 tab BID GABAPENTIN 23564535591 Active Tami Miller RN Active PREDNISONE 20 MG TABS Take 2 daily for 3 days and then 1 daily for 3 days PREDNISONE 45996199691 No Longer Active Maliheh Ziglari COMMUNICATIONS MANAGER Active BENZONATATE 200 MG CAPS Take 1 tablet 3 times a day as needed for cough 07/29 BENZONATATE 17262504290 No Longer Active Prosper Arenas MD Active HYDROCHLOROTHIAZIDE 25 MG TABS 1 tablet by mouth daily HYDROCHLOROTHIAZIDE 34115067679 No Longer Active Prosper Arenas MD Active ACCU-CHEK JOANNA PLUS STRP check blood sugars 5x a day, before each meal and bedtime and 15 minutes after treating a low blood. sugar GLUCOSE BLOOD 20645235592 Active Maliheh Ziglari COMMUNICATIONS MANAGER Active LANTUS SOLOSTAR 100 UNIT/ML SOLN Take 40 units at 7-8pm daily INSULIN GLARGINE 44698847044 Active Maliheh Ziglari COMMUNICATIONS MANAGER Active MECLIZINE HCL 25 MG TABS 1 daily needed for dizziness MECLIZINE HCL 53226207433 No Longer Active Maliheh Ziglari COMMUNICATIONS MANAGER Active BENZONATATE 200 MG CAPS 1 tab, 2-3 times a day BENZONATATE 55018892365 No Longer Active Maliheh Ziglari COMMUNICATIONS MANAGER Active HALOPERIDOL 0.5 MG TABS one tablet three times a day HALOPERIDOL 87140206201 No Longer Active Maliheh Ziglari COMMUNICATIONS MANAGER Active TRAZODONE HCL 50 MG TAB three tablets at bed time TRAZODONE HCL 06180134943 No Longer Active Maliheh Ziglari COMMUNICATIONS MANAGER Active REVLIMID 25 MG CAPS one capsule daily for 21 days then off for 7 days 2014 LENALIDOMIDE 51235297393 No Longer Active Maliheh Ziglari COMMUNICATIONS MANAGER Active ZITHROMAX Z-EDDIE 250 MG TABS 2 today, then 1 daily for 4 days 2014 AZITHROMYCIN 96396528716 No Longer Active Augustina Mata RUBBER GOODS CUTTER FINISHER Active NOVOLIN R RELION 100 UNIT/ML INJ SOLN 30- 40 units each meal sliding scale INSULIN REGULAR HUMAN 86057384887 No Longer Active Moy PARISH Active LISINOPRIL 5 MG TABS 1 daily LISINOPRIL 44943784760 Active Prosper Arenas MD Active CALCIUM 500/D 500-200 MG-UNIT TABS one tablet daily CALCIUM CARBONATE- VITAMIN D 78607770665 Active Prosper Arenas MD Active HYDROCODONE-ACETAMINOPHEN 5-500 MG TABS 1-2 FOUR TIMES A DAY, PRN HYDROCODONE-ACETAMINOPHEN 25400248347 No Longer Active Prosper Arenas MD Active SIMVASTATIN 80 MG TABS 1/2 tablet daily SIMVASTATIN 82312524163 Active Prosper Arenas MD Active METOPROLOL TARTRATE 25 MG TABS 1/2 tablet twice a day METOPROLOL TARTRATE 33270218002 Active Prosper Arenas MD Active ASPIRIN 81 MG TAB 1 tablet by mouth daily ASPIRIN 05776209431 Active Prosper Arenas MD Active OMEPRAZOLE 20 MG CPDR 1 qd OMEPRAZOLE 52141423529 Active DARCIE Miller Active DOXYCYCLINE HYCLATE 100 MG CAPS take one capsule by mouth twice daily for ten days DOXYCYCLINE HYCLATE 79212079987 No Longer Active Mekhi Dukes MD Active DOXYCYCLINE HYCLATE 100 MG CAPS take one capsule by mouth twice daily for ten days DOXYCYCLINE HYCLATE 100 MG CAPS 8357543 DOXYCYCLINE HYCLATE Inactive HYDROCODONE-ACETAMINOPHEN 5-500 MG TABS [...] days 2014 ZITHROMAX Z-EDDIE 250 MG TABS 2991687 AZITHROMYCIN Inactive REVLIMID 25 MG CAPS one capsule daily for 21 days then off for 7 days 2014 REVLIMID 25 MG CAPS LENALIDOMIDE Inactive TRAZODONE HCL 50 MG TAB three tablets at bed time TRAZODONE HCL 50 MG TAB 430533 TRAZODONE HCL Inactive HALOPERIDOL 0.5 MG TABS one tablet three times a day HALOPERIDOL 0.5 MG TABS 814088 HALOPERIDOL Inactive BENZONATATE 200 MG CAPS 1 tab, 2-3 times a day BENZONATATE 200 MG CAPS 587354 BENZONATATE Inactive MECLIZINE HCL 25 MG TABS 1 daily needed for dizziness MECLIZINE HCL 25 MG TABS 403370 MECLIZINE HCL Inactive HYDROCHLOROTHIAZIDE 25 MG TABS 1 tablet by mouth daily HYDROCHLOROTHIAZIDE 25 MG TABS 032001 HYDROCHLOROTHIAZIDE Inactive PREDNISONE 20 MG TABS Take 2 daily for 3 days and then 1 daily for 3 days PREDNISONE 20 MG TABS 956490 PREDNISONE Inactive BENZONATATE 200 MG CAPS Take 1 tablet 3 times a day as needed for cough 07/29 BENZONATATE 200 MG CAPS 496487 BENZONATATE Inactive Immunizations Vaccine Administration Date Value [...] W/DIFF - Chemistry sodium, serum 137 mmol/L 325-690 1543/08/16 carbon dioxide, venous blood 26.3 mmol/L 21.0-32.0 [...] LABS - Chemistry cholesterol, serum 115 mg/dL 404-982 6978/08/18 triglyceride, serum, fasting 89 mg/dL 30-200 HDL cholesterol, serum 46 mg/dL 32-60 LDL cholesterol, serum 51 mg/dL 0-130 blood glucose 104 mg/dL 65-110 Lab Report: LIPID PANEL- [facility] LAB - Chemistry cholesterol, serum 156 mg/dL 201-741 5687/02/20 HDL cholesterol, serum 52 mg/dL > OR=40 [...] mg/dL Encounters Code Encounter Date Provider Facility CPT-17704 Level 3 Est. Patient 09:30:37 CDT [facility] CPT-13952 Level 3 Est. Patient 10:00:14 CDT Mekhi Dukes MD [facility] CPT-00588 Level 3 Est. Patient 12:24:09 CDT [facility] CPT-44937 Level 3 Est. Patient 14:34:57 CDT Prosper Arenas MD [facility] CPT-85091 Level 3 New Patient 15:44:53 BOTTOM TURNING LATHE TENDER Mekhi Dukes MD [facility] CPT-40729 Level 3 Est. Patient 14:53:34 BOTTOM TURNING LATHE TENDER Prosper Arenas MD [facility] CPT-80683 Level 4 Est. Patient 10:05:41 BOTTOM TURNING LATHE TENDER [facility] CPT-67109 Level 3 Est. Patient 11:18:32 CDT [facility] CPT-86167 Level 4 Est. Patient 11:05:10 CDT [facility] CPT-20804 Level 3 Est. Patient 11:08:27 BOTTOM TURNING LATHE TENDER [facility] CPT-65979 Level 4 Est. Patient 10:43:59 CDT Prosper Arenas MD [facility] CPT-91303 Level 3 Est. Patient 10:51:19 CDT Moy Garcia [facility] CPT-50531 Level 3 Est. Patient 10:20:31 CDT Moy Garcia [facility] CPT-49519 Level 3 Est. Patient 17:08:45 CDT Moy Garcia [facility] CPT-07717 Level 2 Est. Patient 13:54:36 CDT Augustina Mata BESSY [facility] CPT-06967 Level 3 Est. Patient 12:00:42 CDT Prosper Arenas MD [facility] CPT-38760 Level 3 Est. Patient 09:57:28 BOTTOM TURNING LATHE TENDER Moy Garcia [facility] CPT-26314 Level 3 Est. Patient 11:41:19 BOTTOM TURNING LATHE TENDER [facility] Level 4 Est. Patient 17:07:35 BOTTOM TURNING LATHE TENDER [facility] CPT-20639 Level 5 Est. Patient 14:33:32 [facility] Level 3 Est. Patient 12:25:35 CDT Prosper Arenas MD [facility] Procedures Code Procedure Name Date Entry Date Standard Description CPT-000 Give Appropriate Flu Vaccine 10:13:55 BOTTOM TURNING LATHE TENDER CPT-000 Give Immunizations Due 10:13:55 BOTTOM TURNING LATHE TENDER CPT-91525 HGBA1C - LAB USE ONLY 09:42:47 BOTTOM TURNING LATHE TENDER CPT-80974 TPSA - LAB USE ONLY 09:42:46 BOTTOM TURNING LATHE TENDER CPT-68329 Venipuncture Draw Fee 09:42:46 BOTTOM TURNING LATHE TENDER CPT-70434 Port a cath flush 13:33:18 BOTTOM TURNING LATHE TENDER CPT-06777 First Vx - Ix admin for Medicare patients 10:42:57 BOTTOM TURNING LATHE TENDER CPT-08464 Fluzone Preservative Free Intramuscular Suspension 10:42 :57 BOTTOM TURNING LATHE TENDER CPT-G0438 Initial Annual Wellness Exam 10:13:55 BOTTOM TURNING LATHE TENDER CPT-000 Give Appropriate Flu Vaccine 10:44:04 CDT CPT-000 Give Pneumovax 10:44:03 CDT CPT-52083 Port a cath flush 17:04:43 CDT CPT-85423 Prevnar 13 11:19:17 CDT CPT-93955 Fluzone Quadrivalent preservative free (>=3yrs.) 11:19: 17 CDT CPT-56095 Immunization Each Additional Inj 11:19:17 CDT CPT-01474 Immunization Single Admin 11:19:17 CDT CPT-06097 Port a cath flush 13:28:22 CDT CPT-TCMM Transitional Care Mgmt-Moderate 13:40:15 CDT CPT-G0008 Administration of Influenza Virus Vaccine 13:59:20 CDT CPT-52955 Fluzone High-Dose Intramuscular Suspension 13:59:20 CDT CPT-89478 Venipuncture Draw Fee 09:56:19 CDT CPT-OV Office Visit 15:46:10 CDT
--- OUTSIDE RECORDS SUMMARY | 2017-08-25 21:21 | XMS REPORT | Clinical Summary ---
Author Author Admin, IWONA Organization [employer] Address Unknown Phone Unavailable Allergies, Adverse Reactions, Alerts Allergy Name Reaction Description Start Date Severity Status Provider ERYTHROMYCIN Stomach cramps Moderate Active Prosper Arenas MD CODEINE Critical Active Maliheh Ziglari RETREAD MOLD OPERATOR DARVOCET Critical Active Maliheh Ziglari RETREAD MOLD OPERATOR LEVAQUIN Critical Active Maliheh Ziglari RETREAD MOLD OPERATOR Conditions or Problems Problem Name Problem Code Onset Date Status Entry Date Provider Comment Standard Description Annotate Diabetes, Type 2 250.00 Resolved Tami Miller head of business development mellitus 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, type II [...] type II, uncontrolled 250.02 Active Maliheh Rodrigoglari RETREAD MOLD OPERATOR Diabetes mellitus 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, [...] with hyperglycemia 250.00 Active 03/21 Maliheh Ziglari RETREAD MOLD OPERATOR Diabetes mellitus 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, type II or unspecified type, not stated as uncontrolled [facility] use of insulin treatment V58.67 Active Luxiheh Rodrigoglari RETREAD MOLD OPERATOR Long-term (current) use of insulin Diabetes mellitus, type II with hypoglycemia 250.80 Active 07/22 Maliheh Ziglari RETREAD MOLD OPERATOR Diabetes mellitus with other specified manifestations, type II or unspecified type, not stated as uncontrolled 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 INSULIN ASPART 88489848268 Active Moy DURANTP Active GABAPENTIN 300 MG ORAL CAPS 1 tab BID GABAPENTIN 33620143733 Active Tami Miller RN Active PREDNISONE 20 MG TABS Take 2 daily for 3 days and then 1 daily for 3 days PREDNISONE 34450598606 No Longer Active Maliheh Ziglari RETREAD MOLD OPERATOR Active BENZONATATE 200 MG CAPS Take 1 tablet 3 times a day as needed for cough 07/29 BENZONATATE 53191475496 No Longer Active Prosper Arenas MD Active HYDROCHLOROTHIAZIDE 25 MG TABS 1 tablet by mouth daily HYDROCHLOROTHIAZIDE 51228428207 No Longer Active Prosper Arenas MD Active ACCU-CHEK JOANNA PLUS STRP check blood sugars 5x a day, before each meal and bedtime and 15 minutes after treating a low blood. sugar GLUCOSE BLOOD 36240047525 Active Maliheh Ziglari RETREAD MOLD OPERATOR Active LANTUS SOLOSTAR 100 UNIT/ML SOLN Take 40 units at 7-8pm daily INSULIN GLARGINE 49891238803 Active Maliheh Ziglari RETREAD MOLD OPERATOR Active MECLIZINE HCL 25 MG TABS 1 daily needed for dizziness MECLIZINE HCL 85121420754 No Longer Active Maliheh Ziglari RETREAD MOLD OPERATOR Active BENZONATATE 200 MG CAPS 1 tab, 2-3 times a day BENZONATATE 73091809193 No Longer Active Maliheh Ziglari RETREAD MOLD OPERATOR Active HALOPERIDOL 0.5 MG TABS one tablet three times a day HALOPERIDOL 57338867561 No Longer Active Maliheh Ziglari RETREAD MOLD OPERATOR Active TRAZODONE HCL 50 MG TAB three tablets at bed time TRAZODONE HCL 64518074494 No Longer Active Maliheh Ziglari RETREAD MOLD OPERATOR Active REVLIMID 25 MG CAPS one capsule daily for 21 days then off for 7 days 2014 LENALIDOMIDE 63979476140 No Longer Active Maliheh Ziglari RETREAD MOLD OPERATOR Active ZITHROMAX Z-EDDIE 250 MG TABS 2 today, then 1 daily for 4 days 2014 AZITHROMYCIN 57020678988 No Longer Active Augustina Mata RUST PROOFER Active NOVOLIN R RELION 100 UNIT/ML INJ SOLN 30- 40 units each meal sliding scale INSULIN REGULAR HUMAN 10722243905 No Longer Active Moy PARISH Active LISINOPRIL 5 MG TABS 1 daily LISINOPRIL 69048274021 Active Prosper Arenas MD Active CALCIUM 500/D 500-200 MG-UNIT TABS one tablet daily CALCIUM CARBONATE- VITAMIN D 38349154751 Active Prosper Arenas MD Active HYDROCODONE-ACETAMINOPHEN 5-500 MG TABS 1-2 FOUR TIMES A DAY, PRN HYDROCODONE-ACETAMINOPHEN 90021209287 No Longer Active Prosper Arenas MD Active SIMVASTATIN 80 MG TABS 1/2 tablet daily SIMVASTATIN 75991835098 Active Prosper Arenas MD Active METOPROLOL TARTRATE 25 MG TABS 1/2 tablet twice a day METOPROLOL TARTRATE 58627553420 Active Prosper Arenas MD Active ASPIRIN 81 MG TAB 1 tablet by mouth daily ASPIRIN 11558433966 Active Prosper Arenas MD Active OMEPRAZOLE 20 MG CPDR 1 qd OMEPRAZOLE 69968659318 Active DARCIE Miller Active DOXYCYCLINE HYCLATE 100 MG CAPS take one capsule by mouth twice daily for ten days DOXYCYCLINE HYCLATE 70502079432 No Longer Active Mekhi Dukes MD Active DOXYCYCLINE HYCLATE 100 MG CAPS take one capsule by mouth twice daily for ten days DOXYCYCLINE HYCLATE 100 MG CAPS 6887229 DOXYCYCLINE HYCLATE Inactive HYDROCODONE-ACETAMINOPHEN 5-500 MG TABS [...] days 2014 ZITHROMAX Z-EDDIE 250 MG TABS 8779423 AZITHROMYCIN Inactive REVLIMID 25 MG CAPS one capsule daily for 21 days then off for 7 days 2014 REVLIMID 25 MG CAPS LENALIDOMIDE Inactive TRAZODONE HCL 50 MG TAB three tablets at bed time TRAZODONE HCL 50 MG TAB 194404 TRAZODONE HCL Inactive HALOPERIDOL 0.5 MG TABS one tablet three times a day HALOPERIDOL 0.5 MG TABS 379256 HALOPERIDOL Inactive BENZONATATE 200 MG CAPS 1 tab, 2-3 times a day BENZONATATE 200 MG CAPS 742636 BENZONATATE Inactive MECLIZINE HCL 25 MG TABS 1 daily needed for dizziness MECLIZINE HCL 25 MG TABS 527392 MECLIZINE HCL Inactive HYDROCHLOROTHIAZIDE 25 MG TABS 1 tablet by mouth daily HYDROCHLOROTHIAZIDE 25 MG TABS 344254 HYDROCHLOROTHIAZIDE Inactive PREDNISONE 20 MG TABS Take 2 daily for 3 days and then 1 daily for 3 days PREDNISONE 20 MG TABS 799835 PREDNISONE Inactive BENZONATATE 200 MG CAPS Take 1 tablet 3 times a day as needed for cough 07/29 BENZONATATE 200 MG CAPS 273493 BENZONATATE Inactive Immunizations Vaccine Administration Date Value [...] W/DIFF - Chemistry sodium, serum 137 mmol/L 278-840 0000/08/16 carbon dioxide, venous blood 26.3 mmol/L 21.0-32.0 [...] 7.7 % 4.3-6.0 Lab Report: Lipid Panel, Glucose- [facility] - Chemistry cholesterol, serum 115 mg/dL 545-494 7498/08/18 triglyceride, serum, fasting 89 mg/dL 30-200 HDL cholesterol, serum 46 mg/dL 32-60 LDL cholesterol, serum 51 mg/dL 0-130 blood glucose 104 mg/dL 65-110 Lab Report: LIPID PANEL- REPOWER LAB - Chemistry cholesterol, serum 156 mg/dL 339-457 2257/02/20 HDL cholesterol, serum 52 mg/dL > OR=40 [...] mg/dL Encounters Code Encounter Date Provider Facility CPT-30946 Level 3 Est. Patient 09:30:37 CDT [facility] CPT-27365 Level 3 Est. Patient 10:00:14 CDT Mekhi Dukes MD [facility] CPT-71929 Level 3 Est. Patient 12:24:09 CDT [facility] CPT-63763 Level 3 Est. Patient 14:34:57 CDT Prosper Arenas MD [facility] CPT-68878 Level 3 New Patient 15:44:53 BILINGUAL BRANCH MANAGER Mekhi Dukes MD [facility] CPT-63873 Level 3 Est. Patient 14:53:34 BILINGUAL BRANCH MANAGER Prosper Arenas MD [facility] CPT-00952 Level 4 Est. Patient 10:05:41 BILINGUAL BRANCH MANAGER [facility] CPT-[facility]759 Level 3 Est. Patient 11:18:32 CDT [facility] CPT-27053 Level 4 Est. Patient 11:05:10 CDT Moy Garcia [facility] CPT-36554 Level 3 Est. Patient 11:08:27 BILINGUAL BRANCH MANAGER Moy Garcia [facility] CPT-89384 Level 4 Est. Patient 10:43:59 CDT Prosper Arenas MD [facility] CPT-11933 Level 3 Est. Patient 10:51:19 CDT Moy Garcia [facility] CPT-40482 Level 3 Est. [facility]:20[facility] CPT-64918 Level 3 Est. Patient 17:08:45 CDT [facility] Level 2 Est. Patient 13:54:36 CDT Augustina Mata APRN [facility] CPT-60764 Level 3 Est. Patient 12:00:42 CDT Prosper Arenas MD [facility] CPT-99696 Level 3 Est. Patient 09:57:28 BILINGUAL BRANCH MANAGER [facility] Level 3 Est. Patient 11:41:19 BILINGUAL BRANCH MANAGER [facility] CPT-23892 Level 4 Est. Patient 17:07:35 BILINGUAL BRANCH MANAGER Moy Garcia [facility] CPT-88043 Level 5 Est. Patient 14:33:32 [facility] CPT-64956 Level 3 Est. Patient 12:25:35 CDT Prosper Arenas MD [facility] Procedures Code Procedure Name Date Entry Date Standard Description CPT-000 Give Appropriate Flu Vaccine 10:13:55 BILINGUAL BRANCH MANAGER CPT-000 Give Immunizations Due 10:13:55 BILINGUAL BRANCH MANAGER CPT-49033 HGBA1C - LAB USE ONLY 09:42:47 BILINGUAL BRANCH MANAGER CPT-19351 TPSA - LAB USE ONLY 09:42:46 BILINGUAL BRANCH MANAGER CPT-51634 Venipuncture Draw Fee 09:42:46 BILINGUAL BRANCH MANAGER CPT-74659 Port a cath flush 13:33:18 BILINGUAL BRANCH MANAGER CPT-65450 First Vx - Ix admin for Medicare patients 10:42:57 BILINGUAL BRANCH MANAGER CPT-49402 Fluzone Preservative Free Intramuscular Suspension 10:42 :57 BILINGUAL BRANCH MANAGER CPT-G0438 Initial Annual Wellness Exam 10:13:55 BILINGUAL BRANCH MANAGER CPT-000 Give Appropriate Flu Vaccine 10:44:04 CDT CPT-000 Give Pneumovax 10:44:03 CDT CPT-34538 Port a cath flush 17:04:43 CDT CPT-77076 Prevnar 13 11:19:17 CDT CPT-39001 Fluzone Quadrivalent preservative free (>=3yrs.) 11:19: 17 CDT CPT-86004 Immunization Each Additional Inj 11:19:17 CDT CPT-33880 Immunization Single Admin 11:19:17 CDT CPT-07055 Port a cath flush 13:28:22 CDT CPT-TCMM Transitional Care Mgmt-Moderate 13:40:15 CDT CPT-G0008 Administration of Influenza Virus Vaccine 13:59:20 CDT CPT-42568 Fluzone High-Dose Intramuscular Suspension 13:59:20 CDT CPT-18848 Venipuncture Draw Fee 09:56:19 CDT CPT-OV Office Visit 15:46:10 CDT
--- OUTSIDE RECORDS SUMMARY | 2017-08-25 21:21 | XMS REPORT | Clinical Summary ---
Author Author Admin, IWONA Organization [employer] Address Unknown Phone Unavailable Allergies, Adverse Reactions, Alerts Allergy Name Reaction Description Start Date Severity Status Provider ERYTHROMYCIN Stomach cramps Moderate Active Prosper Arenas MD CODEINE Critical Active Maliheh Ziglari PHOTOGRAPHER STILL DARVOCET Critical Active Maliheh Ziglari PHOTOGRAPHER STILL LEVAQUIN Critical Active Maliheh Ziglari PHOTOGRAPHER STILL Conditions or Problems Problem Name Problem Code [...] type II, uncontrolled 250.02 Active Maliheh Ziglari PHOTOGRAPHER STILL Diabetes mellitus 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, type [...] with hyperglycemia 250.00 Active 03/21 Maliheh Ziglari PHOTOGRAPHER STILL Diabetes mellitus 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, type II or unspecified type, not stated as uncontrolled [facility] use of insulin treatment V58.67 Active Luxiheh Rodrigoglari PHOTOGRAPHER STILL Long-term (current) use of insulin Diabetes mellitus, type II with hypoglycemia 250.80 Active 07/22 Maliheh Ziglari PHOTOGRAPHER STILL Diabetes mellitus with other specified manifestations, type II or unspecified type, not stated as uncontrolled 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 sugar GLUCOSE BLOOD 12866762656 Active Maliheh Ziglari PHOTOGRAPHER STILL Active NOVOLOG FLEXPEN 100 UNIT/ML SOPN Take 25 units with each meal, add 1u/50 for blood sugars above 150. INSULIN ASPART 37895697163 Active Maliheh Ziglari PHOTOGRAPHER STILL Active LANTUS SOLOSTAR 100 UNIT/ML SOLN Take 40 units at 7-8pm daily INSULIN GLARGINE 32946971863 Active Maliheh Ziglari PHOTOGRAPHER STILL Active MECLIZINE HCL 25 MG TABS 1 daily needed for dizziness MECLIZINE HCL 86738843923 No Longer Active Maliheh Ziglari PHOTOGRAPHER STILL Active BENZONATATE 200 MG CAPS 1 tab, 2-3 times a day BENZONATATE 43393799122 No Longer Active Maliheh Ziglari PHOTOGRAPHER STILL Active HALOPERIDOL 0.5 MG TABS one tablet three times a day HALOPERIDOL 94959392317 No Longer Active Maliheh Ziglari PHOTOGRAPHER STILL Active TRAZODONE HCL 50 MG TAB three tablets at bed time TRAZODONE HCL 49419317148 No Longer Active Moy Wallacesania PHOTOGRAPHER STILL Active REVLIMID 25 MG CAPS one capsule daily for 21 days then off for 7 days 2014 LENALIDOMIDE 40158370871 No Longer Active Moy Ziglari PHOTOGRAPHER STILL Active ZITHROMAX Z-EDDIE 250 MG TABS 2 today, then 1 daily for 4 days 2014 AZITHROMYCIN 65491052004 No Longer Active Augustina Mata [employer] DIV[employer] MANAGER Active NOVOLIN R RELION 100 UNIT/ML INJ SOLN 30- 40 units each meal sliding scale INSULIN REGULAR HUMAN 05779997603 No Longer Active Moy Wallacekymari PHOTOGRAPHER STILL Active LISINOPRIL 5 MG TABS 1 daily LISINOPRIL 51047098102 Active Prosper Arenas MD Active CALCIUM 500/D 500-200 MG-UNIT TABS one tablet daily CALCIUM CARBONATE- VITAMIN D 01432276795 Active Prosper Arenas MD Active HYDROCHLOROTHIAZIDE 25 MG TABS 1 tablet by mouth daily HYDROCHLOROTHIAZIDE 00622479145 Active Prosper Arenas MD Active HYDROCODONE-ACETAMINOPHEN 5-500 MG TABS 1-2 FOUR TIMES A DAY, PRN HYDROCODONE-ACETAMINOPHEN 80072803211 No Longer Active Prosper Arenas MD Active SIMVASTATIN 80 MG TABS 1/2 tablet daily SIMVASTATIN 74160026306 Active Prosper Arenas MD Active METOPROLOL TARTRATE 25 MG TABS 1/2 tablet twice a day METOPROLOL TARTRATE 45632501157 Active Prosper Arenas MD Active ASPIRIN 81 MG TAB 1 tablet by mouth daily ASPIRIN 63446168570 Active Prosper Arenas MD Active OMEPRAZOLE 20 MG CPDR 1 qd OMEPRAZOLE 13648409228 Active DARCIE Miller Active DOXYCYCLINE HYCLATE 100 MG CAPS take one capsule by mouth twice daily for ten days DOXYCYCLINE HYCLATE 54201475375 No Longer Active Mekhi Dukes MD Active DOXYCYCLINE HYCLATE 100 MG CAPS take one capsule by mouth twice daily for ten days DOXYCYCLINE HYCLATE 100 MG CAPS 3969858 DOXYCYCLINE HYCLATE Inactive HYDROCODONE-ACETAMINOPHEN 5-500 MG TABS [...] days 2014 ZITHROMAX Z-EDDIE 250 MG TABS 8550419 AZITHROMYCIN Inactive REVLIMID 25 MG CAPS one capsule daily for 21 days then off for 7 days 2014 REVLIMID 25 MG CAPS LENALIDOMIDE Inactive TRAZODONE HCL 50 MG TAB three tablets at bed time TRAZODONE HCL 50 MG TAB 444391 TRAZODONE HCL Inactive HALOPERIDOL 0.5 MG TABS one tablet three times a day HALOPERIDOL 0.5 MG TABS 500965 HALOPERIDOL Inactive BENZONATATE 200 MG CAPS 1 tab, 2-3 times a day BENZONATATE 200 MG CAPS 698712 BENZONATATE Inactive MECLIZINE HCL 25 MG TABS 1 daily needed for dizziness MECLIZINE HCL 25 MG TABS 734655 MECLIZINE HCL Inactive Immunizations Vaccine Administration Date [...] mg/dL Encounters Code Encounter Date Provider Facility CPT-10506 Level 3 New Patient 15:44:53 TREATMENT MANAGER Mekhi Dukes MD [facility] CPT-50168 Level 3 Est. Patient 14:53:34 TREATMENT MANAGER Prosper Arenas MD [facility] CPT-61467 Level 4 Est. Patient 10:05:41 TREATMENT MANAGER [facility] CPT-21086 Level 3 Est. Patient 11:18:32 CDT [facility] CPT-25423 Level 4 Est. Patient 11:05:10 CDT [facility] CPT-85785 Level 3 Est. Patient 11:08:27 TREATMENT MANAGER [facility] CPT-97458 Level 4 Est. Patient 10:43:59 CDT Prosper Arenas MD [facility] CPT-20568 Level 3 Est. Patient 10:51:19 CDT [facility] CPT-52250 Level 3 Est. Patient 10:20:31 CDT [facility] CPT-65758 Level 3 Est. Patient 17:08:45 CDT Moy Garcia [facility] CPT-22171 Level 2 Est. Patient 13:54:36 CDT Augustina Mata APRN [facility] CPT-66249 Level 3 Est. Patient 12:00:42 CDT Prosper Arenas MD [facility] CPT-62882 Level 3 Est. Patient 09:57:28 TREATMENT MANAGER Moy Garcia [facility] CPT-22938 Level 3 Est. Patient 11:41:19 [facility] Level 4 Est. Patient 17:07:35 [facility] Level 5 Est. Patient 14:33:32 [facility] CPT-28736 Level 3 Est. Patient 12:25:35 CDT Prosper Arenas MD [facility] Procedures Code Procedure Name Date Entry Date Standard Description CPT-000 Give Appropriate Flu Vaccine 10:13:55 TREATMENT MANAGER CPT-000 Give Immunizations Due 10:13:55 TREATMENT MANAGER CPT-23928 HGBA1C - LAB USE ONLY 09:42:47 TREATMENT MANAGER CPT-49857 TPSA - LAB USE ONLY 09:42:46 TREATMENT MANAGER CPT-84311 Venipuncture Draw Fee 09:42:46 TREATMENT MANAGER CPT-36200 Port a cath flush 13:33:18 TREATMENT MANAGER CPT-71630 First Vx - Ix admin for Medicare patients 10:42:57 TREATMENT MANAGER CPT-85809 Fluzone Preservative Free Intramuscular Suspension 10:42 :57 TREATMENT MANAGER CPT-G0438 Initial Annual Wellness Exam 10:13:55 TREATMENT MANAGER CPT-000 Give Appropriate Flu Vaccine 10:44:04 CDT CPT-000 Give Pneumovax 10:44:03 CDT CPT-49273 Port a cath flush 17:04:43 CDT CPT-14251 Prevnar 13 11:19:17 CDT CPT-85968 Fluzone Quadrivalent preservative free (>=3yrs.) 11:19: 17 CDT CPT-90077 Immunization Each Additional Inj 11:19:17 CDT CPT-79888 Immunization Single Admin 11:19:17 CDT CPT-32055 Port a cath flush 13:28:22 CDT CPT-TCMM Transitional Care Mgmt-Moderate 13:40:15 CDT CPT-G0008 Administration of Influenza Virus Vaccine 13:59:20 CDT CPT-43938 Fluzone High-Dose Intramuscular Suspension 13:59:20 CDT CPT-09153 Venipuncture Draw Fee 09:56:19 CDT CPT-OV Office Visit 15:46:10 CDT
--- OUTSIDE RECORDS SUMMARY | 2017-08-25 21:22 | XMS REPORT | Clinical Summary ---
Author Author Admin, IWONA Organization [employer] Address Unknown Phone Unavailable Allergies, Adverse Reactions, Alerts Allergy Name Reaction Description Start Date Severity Status Provider ERYTHROMYCIN Stomach cramps Moderate Active Prosper Arenas MD CODEINE Critical Active Maliheh Ziglari SHIPPING RECEIVING MANAGER DARVOCET Critical Active Maliheh Ziglari SHIPPING RECEIVING MANAGER LEVAQUIN Critical Active Maliheh Ziglari SHIPPING RECEIVING MANAGER Conditions or Problems Problem Name Problem Code Onset Date Status Entry Date Provider Comment Standard Description Annotate Diabetes, Type 2 250.00 Resolved Tami Miller development editor mellitus 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, type II [...] type II, uncontrolled 250.02 Active Maliheh Rodrigoglari SHIPPING RECEIVING MANAGER Diabetes mellitus 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, [...] with hyperglycemia 250.00 Active 03/21 Maliheh Ziglari SHIPPING RECEIVING MANAGER Diabetes mellitus 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, type II or unspecified type, not stated as uncontrolled [facility] use of insulin treatment V58.67 Active Luxiheh Rodrigoglari SHIPPING RECEIVING MANAGER Long-term (current) use of insulin Diabetes mellitus, type II with hypoglycemia 250.80 Active 07/22 Maliheh Ziglari SHIPPING RECEIVING MANAGER Diabetes mellitus with other specified manifestations, type II or unspecified type, not stated as uncontrolled 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 Maliheh Ziglari SHIPPING RECEIVING MANAGER Diabetes mellitus with renal manifestations, type II or unspecified type, not stated as uncontrolled Wellness exam V70.0 Active Dee Palmer APRN Routine general medical examination at a health care facility Fitting and adjustment of vascular catheter V58.81 Active 02/06 Dee Palmer APRN Encounter for fitting and adjustment of vascular catheter Unawareness of hypoglycemia in diabetes mellitus, type II 250.80 Active Maliheh Ziglari SHIPPING RECEIVING MANAGER Diabetes mellitus with other specified manifestations, [...] 1-2 every 4-6 hrs prn 02/25 HYDROCODONE-ACETAMINOPHEN 70860519032 Active Marina Messina APRN Active ASPIRIN 81 MG ORAL TABLET 1 tablet by mouth daily ASPIRIN 64984797606 No Longer Active Marina Messina APRN Active SIMVASTATIN 80 MG ORAL TABLET 1/2 tablet daily SIMVASTATIN 16787638995 No Longer Active Mekhi Dukes MD Active OMEPRAZOLE 20 MG ORAL CAPSULE DELAYED RELEASE 1 qd OMEPRAZOLE 31994504652 No Longer Active Mekhi Dukes MD Active METOPROLOL TARTRATE 25 MG ORAL TABLET 1/2 tablet twice a day METOPROLOL TARTRATE 05367599999 No Longer Active Mekhi Dukes MD Active LISINOPRIL 5 MG ORAL TABLET 1 daily LISINOPRIL 38296352247 No Longer Active Mekhi Dukes MD Active NOVOLOG FLEXPEN 100 UNIT/ML SUBCUTANEOUS SOLUTION PEN-INJECTOR Take 8 units with each meal, add 1u/50 for blood sugars above 150. INSULIN ASPART 15172180993 Active Moy PARISH Active GABAPENTIN 300 MG ORAL CAPSULE 1 tab BID GABAPENTIN 11274314325 Active Tami Miller RN Active PREDNISONE 20 MG ORAL TABLET Take 2 daily for 3 days and then 1 daily for 3 days PREDNISONE 43764835974 No Longer Active Moy PARISH Active BENZONATATE 200 MG ORAL CAPSULE Take 1 tablet 3 times a day as needed for cough BENZONATATE 24170384551 No Longer Active Prosper Arenas MD Active HYDROCHLOROTHIAZIDE 25 MG ORAL TABLET 1 tablet by mouth daily HYDROCHLOROTHIAZIDE 38631233629 No Longer Active Prosper Arenas MD Active ACCU-CHEK JOANNA PLUS IN VITRO STRIP check blood sugars 5x a day, before each meal and bedtime and 15 minutes after treating a low blood. sugar GLUCOSE BLOOD 42341984489 Active Maliheh Ziglari SHIPPING RECEIVING MANAGER Active LANTUS SOLOSTAR 100 UNIT/ML SUBCUTANEOUS SOLUTION PEN-INJECTOR Take 40 units at 7-8pm daily INSULIN GLARGINE 69707357355 Active Maliheh Ziglari SHIPPING RECEIVING MANAGER Active MECLIZINE HCL 25 MG ORAL TABLET 1 daily needed for dizziness 2015 MECLIZINE HCL 54057730680 No Longer Active Maliheh Ziglari SHIPPING RECEIVING MANAGER Active BENZONATATE 200 MG ORAL CAPSULE 1 tab, 2-3 times a day BENZONATATE 43446222025 No Longer Active Maliheh Ziglari SHIPPING RECEIVING MANAGER Active HALOPERIDOL 0.5 MG ORAL TABLET one tablet three times a day HALOPERIDOL 34649792970 No Longer Active Maliheh Ziglari SHIPPING RECEIVING MANAGER Active TRAZODONE HCL 50 MG ORAL TABLET three tablets at bed time TRAZODONE HCL 87992037516 No Longer Active Maliheh Ziglari SHIPPING RECEIVING MANAGER Active REVLIMID 25 MG ORAL CAPSULE one capsule daily for 21 days then off for 7 days LENALIDOMIDE 61816231914 No Longer Active Maliheh Ziglari SHIPPING RECEIVING MANAGER Active ZITHROMAX Z-EDDIE 250 MG ORAL TABLET 2 today, then 1 daily for 4 days AZITHROMYCIN 02054540667 No Longer Active Augustina Mata APRN Active NOVOLIN R RELION 100 UNIT/ML INJECTION SOLUTION 30- 40 units each meal sliding scale INSULIN REGULAR HUMAN 09643326402 No Longer Active Maliheh Ziglari SHIPPING RECEIVING MANAGER Active CALCIUM 500/D 500-200 MG-UNIT ORAL TABLET one tablet daily CALCIUM CARBONATE-VITAMIN D 08693716706 Active Prosper Arenas MD Active HYDROCODONE-ACETAMINOPHEN 5-500 MG ORAL TABLET 1-2 FOUR TIMES A DAY, PRN 2010 HYDROCODONE-ACETAMINOPHEN 68876239871 No Longer Active Prosper Arenas MD Active DOXYCYCLINE HYCLATE 100 MG ORAL CAPSULE take one capsule by mouth twice daily for ten days DOXYCYCLINE HYCLATE 50517182841 No Longer Active Mekhi Dukes MD Active DOXYCYCLINE HYCLATE 100 MG ORAL CAPSULE take one capsule by mouth twice daily for ten days DOXYCYCLINE HYCLATE 100 MG ORAL CAPSULE 6674787 DOXYCYCLINE HYCLATE Inactive HYDROCODONE-ACETAMINOPHEN 5-500 MG ORAL TABLET 1-2 FOUR TIMES A DAY, PRN 2010 HYDROCODONE-ACETAMINOPHEN 5-500 MG ORAL TABLET 622317 HYDROCODONE-ACETAMINOPHEN Inactive NOVOLIN R RELION 100 UNIT/ML INJECTION SOLUTION 30- 40 units each meal sliding scale NOVOLIN R RELION 100 UNIT/ML INJECTION SOLUTION INSULIN REGULAR HUMAN Inactive ZITHROMAX Z-EDDIE 250 MG ORAL TABLET 2 today, then 1 daily for 4 days ZITHROMAX Z-EDDIE 250 MG ORAL TABLET 037529 AZITHROMYCIN Inactive REVLIMID 25 MG ORAL CAPSULE one capsule daily for 21 days then off for 7 days REVLIMID 25 MG ORAL CAPSULE LENALIDOMIDE Inactive TRAZODONE HCL 50 MG ORAL TABLET three tablets at bed time TRAZODONE HCL 50 MG ORAL TABLET 976609 TRAZODONE HCL Inactive HALOPERIDOL 0.5 MG ORAL TABLET one tablet three times a day HALOPERIDOL 0.5 MG ORAL TABLET 526504 HALOPERIDOL Inactive BENZONATATE 200 MG ORAL CAPSULE 1 tab, 2-3 times a day BENZONATATE 200 MG ORAL CAPSULE 514941 BENZONATATE Inactive MECLIZINE HCL 25 MG ORAL TABLET 1 daily needed for dizziness 2015 MECLIZINE HCL 25 MG ORAL TABLET 838041 MECLIZINE HCL Inactive HYDROCHLOROTHIAZIDE 25 MG ORAL TABLET 1 tablet by mouth daily HYDROCHLOROTHIAZIDE 25 MG ORAL TABLET 905327 HYDROCHLOROTHIAZIDE Inactive PREDNISONE 20 MG ORAL TABLET Take 2 daily for 3 days and then 1 daily for 3 days PREDNISONE 20 MG ORAL TABLET 598189 PREDNISONE Inactive LISINOPRIL 5 MG ORAL TABLET 1 daily LISINOPRIL 5 MG ORAL TABLET 747839 LISINOPRIL Inactive METOPROLOL TARTRATE 25 MG ORAL TABLET 1/2 tablet twice a day METOPROLOL TARTRATE 25 MG ORAL TABLET 293664 METOPROLOL TARTRATE Inactive OMEPRAZOLE 20 MG ORAL CAPSULE DELAYED RELEASE 1 qd OMEPRAZOLE 20 MG ORAL CAPSULE DELAYED RELEASE 143754 OMEPRAZOLE Inactive SIMVASTATIN 80 MG ORAL TABLET 1/2 tablet daily SIMVASTATIN 80 MG ORAL TABLET 497740 SIMVASTATIN Inactive ASPIRIN 81 MG ORAL TABLET 1 tablet by mouth daily ASPIRIN 81 MG ORAL TABLET 427536 ASPIRIN Inactive BENZONATATE 200 MG ORAL CAPSULE Take 1 tablet 3 times a day as needed for cough BENZONATATE 200 MG ORAL CAPSULE 758853 BENZONATATE Inactive Immunizations Vaccine Administration Date Value [...] W/DIFF - Chemistry sodium, serum 137 mmol/L 923-211 7408/08/16 carbon dioxide, venous blood 26.3 mmol/L 21.0-32.0 [...] 4.3-6.0 Lab Report: [facility] Chemistry cholesterol, serum 115 mg/dL 146-377 8171/08/18 triglyceride, serum, fasting 89 mg/dL 30-200 HDL cholesterol, serum 46 mg/dL 32-60 LDL cholesterol, serum 51 mg/dL 0-130 blood glucose 104 mg/dL 65-110 Lab Report: LIPID PANEL- [facility] - Chemistry cholesterol, serum 156 mg/dL [phone]/02/20 HDL cholesterol, serum 52 mg/dL > OR=40 [...] mg/dL Encounters Code Encounter Date Provider Facility CPT-94172 Level 3 Est. Patient 17:11:55 FORESTRY AID TECHNICIAN Ismael Gracia MD [facility] CPT-91473 Level 4 Est. Patient 16:29:19 CDT Mekhi Dukes MD [facility] CPT-87258 Level 3 New Patient 17:05:24 CDT Ismael Gracia MD [facility] CPT-44319 Level 2 Est. Patient 15:43:17 CDT Mekhi Dukes MD [facility] CPT-39069 Level 3 Est. Patient 09:30:37 CDT [facility] Level 3 Est. Patient 10:00:14 CDT Mekhi Dukes MD [facility] CPT-32713 Level 3 Est. Patient 12:24:09 CDT [facility] CPT-93725 Level 3 Est. Patient 14:34:57 CDT Prosper Arenas MD [facility] CPT-75360 Level 3 New Patient 15:44:53 FORESTRY AID TECHNICIAN Mekhi Dukes MD [facility] CPT-16410 Level 3 Est. Patient 14:53:34 FORESTRY AID TECHNICIAN Prosper Arenas MD [facility] CPT-76327 Level 4 Est. Patient 10:05:41 FORESTRY AID TECHNICIAN [facility] CPT-93147 Level 3 Est. Patient 11:18:32 CDT [facility] CPT-32667 Level 4 Est. Patient 11:05:10 CDT [facility] CPT-43187 Level 3 Est. Patient 11:08:27 FORESTRY AID TECHNICIAN Moy Garcia [facility] CPT-39977 Level 4 Est. Patient 10:43:59 CDT Porsper Arenas MD [facility] CPT-32693 Level 3 Est. Patient 10:51:19 CDT Moy Garcia [facility] CPT-71503 Level 3 Est. Patient 10:20:31 CDT Moy Garcia [facility] CPT-83715 Level 3 Est. Patient 17:08:45 [facility] CPT-34285 Level 2 Est. Patient 13:54:36 CDT Augustina Mata APRN [facility] CPT-29477 Level 3 Est. Patient 12:00:42 CDT Prosper Arenas MD [facility] CPT-54969 Level 3 Est. Patient 09:57:28 FORESTRY AID TECHNICIAN Moy Garcia [facility] CPT-34693 Level 3 Est. Patient 11:41:19 FORESTRY AID TECHNICIAN Luxshoaib Garcia [facility] CPT-66190 Level 4 Est. Patient 17:07:35 FORESTRY AID TECHNICIAN Moy Garcia [facility] CPT-07107 Level 5 Est. Patient 14:33:32 CDT Moy Garcia [facility] CPT-63779 Level 3 Est. Patient 12:25:35 CDT Prosper Arenas MD [facility] Procedures Code Procedure Name Date Entry Date Standard Description CPT-81466 Postop F/U Visit 17:20:20 FORESTRY AID TECHNICIAN CPT-G0439 [facility] Annual Wellness Exam 08:39:41 FORESTRY AID TECHNICIAN CPT-000 Give Appropriate Flu Vaccine 10:13:55 FORESTRY AID TECHNICIAN CPT-000 Give Immunizations Due 10:13:55 FORESTRY AID TECHNICIAN CPT-00041 HGBA1C - LAB USE ONLY 09:42:47 FORESTRY AID TECHNICIAN CPT-70449 TPSA - LAB USE ONLY 09:42:46 FORESTRY AID TECHNICIAN CPT-95968 Venipuncture Draw Fee 09:42:46 FORESTRY AID TECHNICIAN CPT-88351 Port a cath flush 13:33:18 FORESTRY AID TECHNICIAN CPT-46615 First Vx - Ix admin for Medicare patients 10:42:57 FORESTRY AID TECHNICIAN CPT-06971 Fluzone Preservative Free Intramuscular Suspension 10:42 :57 FORESTRY AID TECHNICIAN CPT-G0438 Initial Annual Wellness Exam 10:13:55 FORESTRY AID TECHNICIAN CPT-000 Give Appropriate Flu Vaccine 10:44:04 CDT CPT-000 Give Pneumovax 10:44:03 CDT CPT-33494 Port a cath flush 17:04:43 CDT CPT-25878 Prevnar 13 11:19:17 CDT CPT-18810 Fluzone Quadrivalent preservative free (>=3yrs.) 11:19: 17 CDT CPT-61489 Immunization Each Additional Inj 11:19:17 CDT CPT-24350 Immunization Single Admin 11:19:17 CDT CPT-14082 Port a cath flush 13:28:22 CDT CPT-TCMM Transitional Care Mgmt-Moderate 13:40:15 CDT CPT-G0008 Administration of Influenza Virus Vaccine 13:59:20 CDT CPT-33098 Fluzone High-Dose Intramuscular Suspension 13:59:20 CDT CPT-69977 Venipuncture Draw Fee 09:56:19 CDT CPT-OV Office Visit 15:46:10 CDT
--- OUTSIDE RECORDS SUMMARY | 2017-08-25 21:23 | XMS REPORT | Clinical Summary ---
Author Author Admin, IWONA Organization [employer] Address Unknown Phone Unavailable Allergies, Adverse Reactions, Alerts Allergy Name Reaction Description Start Date Severity Status Provider ERYTHROMYCIN Stomach cramps Moderate Active Prosper Arenas MD CODEINE Critical Active Maliheh Ziglari SAFETY ADMINISTRATOR DARVOCET Critical Active Maliheh Ziglari SAFETY ADMINISTRATOR LEVAQUIN Critical Active Maliheh Ziglari SAFETY ADMINISTRATOR Conditions or Problems Problem Name Problem Code Onset Date Status Entry Date Provider Comment Standard Description Annotate Diabetes, Type 2 250.00 Resolved Tami Miller cushion padder mellitus 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, type II [...] quadrant Syncope and collapse 780.2 Resolved Mekhi uDkes MD Syncope and collapse Hypokalemia 276.8 Resolved Tami Miller RN Hypopotassemia Diabetes mellitus, type II, uncontrolled 250.02 Active Maliheh Rodrigoglari SAFETY ADMINISTRATOR Diabetes mellitus 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, type [...] with hyperglycemia 250.00 Active 03/21 Maliheh Ziglari SAFETY ADMINISTRATOR Diabetes mellitus 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, type II or unspecified type, not stated as uncontrolled [facility] use of insulin treatment V58.67 Active Luxiheh Rodrigoglari SAFETY ADMINISTRATOR Long-term (current) use of insulin Diabetes mellitus, type II with hypoglycemia 250.80 Active 07/22 Maliheh Ziglari SAFETY ADMINISTRATOR Diabetes mellitus with other specified manifestations, type II or unspecified type, not stated as uncontrolled 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 Maliheh Ziglari SAFETY ADMINISTRATOR Diabetes mellitus with renal manifestations, type II or unspecified type, not stated as uncontrolled Wellness exam V70.0 Active Dee Palmer APRN Routine general medical examination at a health care facility Fitting and adjustment of vascular catheter V58.81 Active 02/06 Dee Palmer APRN Encounter for fitting and adjustment of vascular catheter Unawareness of hypoglycemia in diabetes mellitus, type II 250.80 Active Maliheh Ziglari SAFETY ADMINISTRATOR Diabetes mellitus with other specified manifestations, type [...] 80 MG TABS 1/2 tablet daily SIMVASTATIN 64648355026 No Longer Active Mekhi Dukes MD Active OMEPRAZOLE 20 MG CPDR 1 qd OMEPRAZOLE 44070257074 No Longer Active Mekhi Dukes MD Active METOPROLOL TARTRATE 25 MG TABS 1/2 tablet twice a day METOPROLOL TARTRATE 66226837037 No Longer Active Mekhi Dukes MD Active LISINOPRIL 5 MG TABS 1 daily LISINOPRIL 92753432340 No Longer Active Mekhi Dukes MD Active NOVOLOG FLEXPEN 100 UNIT/ML SOPN Take 8 units with each meal, add 1u/50 for blood sugars above 150. INSULIN ASPART 08111256378 Active Moy DURANTP Active GABAPENTIN 300 MG ORAL CAPS 1 tab BID GABAPENTIN 11531764313 Active Tami Miller RN Active PREDNISONE 20 MG TABS Take 2 daily for 3 days and then 1 daily for 3 days PREDNISONE 75754191259 No Longer Active Maliheh Ziglari SAFETY ADMINISTRATOR Active BENZONATATE 200 MG CAPS Take 1 tablet 3 times a day as needed for cough 07/29 BENZONATATE 60866520611 No Longer Active Prosper Arenas MD Active HYDROCHLOROTHIAZIDE 25 MG TABS 1 tablet by mouth daily HYDROCHLOROTHIAZIDE 69457856917 No Longer Active Prosper Arenas MD Active ACCU-CHEK JOANNA PLUS STRP check blood sugars 5x a day, before each meal and bedtime and 15 minutes after treating a low blood. sugar GLUCOSE BLOOD 84169169458 Active Maliheh Ziglari SAFETY ADMINISTRATOR Active LANTUS SOLOSTAR 100 UNIT/ML SOLN Take 40 units at 7-8pm daily INSULIN GLARGINE 27288214151 Active Maliheh Ziglari SAFETY ADMINISTRATOR Active MECLIZINE HCL 25 MG TABS 1 daily needed for dizziness MECLIZINE HCL 46235180617 No Longer Active Maliheh Ziglari SAFETY ADMINISTRATOR Active BENZONATATE 200 MG CAPS 1 tab, 2-3 times a day BENZONATATE 94310808464 No Longer Active Maliheh Ziglari SAFETY ADMINISTRATOR Active HALOPERIDOL 0.5 MG TABS one tablet three times a day HALOPERIDOL 34488513463 No Longer Active Moy Ziglari SAFETY ADMINISTRATOR Active TRAZODONE HCL 50 MG TAB three tablets at bed time TRAZODONE HCL 55972488134 No Longer Active Malpapo Ziglari SAFETY ADMINISTRATOR Active REVLIMID 25 MG CAPS one capsule daily for 21 days then off for 7 days 2014 LENALIDOMIDE 23264208408 No Longer Active Maleh Ziglari SAFETY ADMINISTRATOR Active ZITHROMAX Z-EDDIE 250 MG TABS 2 today, then 1 daily for 4 days 2014 AZITHROMYCIN 54353644063 No Longer Active Augustina Mata SENIOR VISUAL DESIGNER Active NOVOLIN R RELION 100 UNIT/ML INJ SOLN 30- 40 units each meal sliding scale INSULIN REGULAR HUMAN 30148797531 No Longer Active Malpapo Ziglari SAFETY ADMINISTRATOR Active CALCIUM 500/D 500-200 MG-UNIT TABS one tablet daily CALCIUM CARBONATE- VITAMIN D 89358199210 Active Prosper Arenas MD Active HYDROCODONE-ACETAMINOPHEN 5-500 MG TABS 1-2 FOUR TIMES A DAY, PRN HYDROCODONE-ACETAMINOPHEN 35901575349 No Longer Active Prosper Arenas MD Active ASPIRIN 81 MG TAB 1 tablet by mouth daily ASPIRIN 21444200070 Active Prosper Arenas MD Active DOXYCYCLINE HYCLATE 100 MG CAPS take one capsule by mouth twice daily for ten days DOXYCYCLINE HYCLATE 00837722551 No Longer Active Mekhi Dukes MD Active DOXYCYCLINE HYCLATE 100 MG CAPS take one capsule by mouth twice daily for ten days DOXYCYCLINE HYCLATE 100 MG CAPS 6149480 DOXYCYCLINE HYCLATE Inactive HYDROCODONE-ACETAMINOPHEN 5-500 MG TABS 1-2 FOUR TIMES A DAY, PRN HYDROCODONE-ACETAMINOPHEN 5-500 MG TABS 601165 HYDROCODONE- ACETAMINOPHEN Inactive NOVOLIN R RELION 100 UNIT/ML INJ SOLN 30- 40 units each meal sliding scale NOVOLIN R RELION 100 UNIT/ML INJ SOLN INSULIN REGULAR HUMAN Inactive ZITHROMAX Z-EDDIE 250 MG TABS 2 today, then 1 daily for 4 days 2014 ZITHROMAX Z-EDDIE 250 MG TABS 966901 AZITHROMYCIN Inactive REVLIMID 25 MG CAPS one capsule daily for 21 days then off for 7 days 2014 REVLIMID 25 MG CAPS LENALIDOMIDE Inactive TRAZODONE HCL 50 MG TAB three tablets at bed time TRAZODONE HCL 50 MG TAB 935323 TRAZODONE HCL Inactive HALOPERIDOL 0.5 MG TABS one tablet three times a day HALOPERIDOL 0.5 MG TABS 563721 HALOPERIDOL Inactive BENZONATATE 200 MG CAPS 1 tab, 2-3 times a day BENZONATATE 200 MG CAPS 748520 BENZONATATE Inactive MECLIZINE HCL 25 MG TABS 1 daily needed for dizziness MECLIZINE HCL 25 MG TABS 881751 MECLIZINE HCL Inactive HYDROCHLOROTHIAZIDE 25 MG TABS 1 tablet by mouth daily HYDROCHLOROTHIAZIDE 25 MG TABS 520783 HYDROCHLOROTHIAZIDE Inactive PREDNISONE 20 MG TABS Take 2 daily for 3 days and then 1 daily for 3 days PREDNISONE 20 MG TABS 396120 PREDNISONE Inactive LISINOPRIL 5 MG TABS 1 daily LISINOPRIL 5 MG TABS 703877 LISINOPRIL Inactive METOPROLOL TARTRATE 25 MG TABS 1/2 tablet twice a day METOPROLOL TARTRATE 25 MG TABS 603413 METOPROLOL TARTRATE Inactive OMEPRAZOLE 20 MG CPDR 1 qd OMEPRAZOLE 20 MG CPDR 403391 OMEPRAZOLE Inactive SIMVASTATIN 80 MG TABS 1/2 tablet daily SIMVASTATIN 80 MG TABS 725134 SIMVASTATIN Inactive BENZONATATE 200 MG CAPS Take 1 tablet 3 times a day as needed for cough 07/29 BENZONATATE 200 MG CAPS 107645 BENZONATATE Inactive Immunizations Vaccine Administration Date Value [...] W/DIFF - Chemistry sodium, serum 137 mmol/L 479-212 7699/08/16 carbon dioxide, venous blood 26.3 mmol/L 21.0-32.0 [...] LABS - Chemistry cholesterol, serum 115 mg/dL 387-567 4543/08/18 triglyceride, serum, fasting 89 mg/dL 30-200 HDL cholesterol, serum 46 mg/dL 32-60 LDL cholesterol, serum 51 mg/dL 0-130 blood glucose 104 mg/dL 65-110 Lab Report: LIPID PANEL- [facility] LAB - Chemistry cholesterol, serum 156 mg/dL 398-179 3535/02/20 HDL cholesterol, serum 52 mg/dL > OR=40 [...] mg/dL Encounters Code Encounter Date Provider Facility CPT-73598 Level 3 New Patient 17:05:24 CDT Ismael Gracia MD [facility] CPT-61132 Level 2 Est. Patient 15:43:17 CDT Mekhi Dukes MD [facility] CPT-78732 Level 3 Est. Patient 09:30:37 CDT [facility] Level 3 Est. Patient 10:00:14 CDT Mekhi Dukes MD [facility] CPT-00450 Level 3 Est. Patient 12:24:09 CDT [facility] CPT-14693 Level 3 Est. Patient 14:34:57 CDT Prosper Arenas MD [facility] CPT-38594 Level 3 New Patient 15:44:53 PLACEMENT DIRECTOR Mekhi Dukes MD [facility] CPT-84434 Level 3 Est. Patient 14:53:34 PLACEMENT DIRECTOR Prosper Arenas MD [facility] CPT-47507 Level 4 Est. Patient 10:05:41 PLACEMENT DIRECTOR [facility] Level 3 Est. Patient 11:18:32 CDT [facility] CPT-77777 Level 4 Est. Patient 11:05:10 CDT [facility] CPT-38380 Level 3 Est. Patient 11:08:27 PLACEMENT DIRECTOR [facility]39[facility] Level 4 Est. Patient 10:43:59 CDT Prosper Arenas MD [facility] CPT-19549 Level 3 Est. Patient 10:51:19 CDT [facility]PT-67949 Level 3 Est. Patient 10:20:31 CDT Moy Garcia [facility] CPT-03033 Level 3 Est. [facility] CPT-70503 Level 2 Est. Patient 13:54:36 CDT Augustina Mata BESSY [facility] CPT-53188 Level 3 Est. Patient 12:00:42 CDT Prosper Arenas MD [facility] CPT-23483 Level 3 Est. Patient 09:57:28 PLACEMENT DIRECTOR [facility] Level 3 Est. Patient 11:41:19 [facility]AC[facility]OR [facility] CPT-76013 Level 4 Est. Patient 17:07:35 PLACEMENT DIRECTOR [facility] CPT-40930 Level 5 Est. Patient 14:33:32 CDT [facility] [place]-33065 Level 3 Est. Patient 12:25:35 CDT Prosper Arenas MD [facility] Procedures Code Procedure Name Date Entry Date Standard Description CPT-000 Give Appropriate Flu Vaccine 10:13:55 PLACEMENT DIRECTOR CPT-000 Give Immunizations Due 10:13:55 PLACEMENT DIRECTOR CPT-38267 HGBA1C - LAB USE ONLY 09:42:47 PLACEMENT DIRECTOR CPT-42583 TPSA - LAB USE ONLY 09:42:46 PLACEMENT DIRECTOR CPT-21591 Venipuncture Draw Fee 09:42:46 PLACEMENT DIRECTOR CPT-09561 Port a cath flush 13:33:18 PLACEMENT DIRECTOR CPT-77268 First Vx - Ix admin for Medicare patients 10:42:57 PLACEMENT DIRECTOR CPT-67655 Fluzone Preservative Free Intramuscular Suspension 10:42 :57 PLACEMENT DIRECTOR CPT-G0438 Initial Annual Wellness Exam 10:13:55 PLACEMENT DIRECTOR CPT-000 Give Appropriate Flu Vaccine 10:44:04 CDT CPT-000 Give Pneumovax 10:44:03 CDT CPT-29995 Port a cath flush 17:04:43 CDT CPT-42699 Prevnar 13 11:19:17 CDT CPT-30983 Fluzone Quadrivalent preservative free (>=3yrs.) 11:19: 17 CDT CPT-75928 Immunization Each Additional Inj 11:19:17 CDT CPT-04689 Immunization Single Admin 11:19:17 CDT CPT-76880 Port a cath flush 13:28:22 CDT CPT-TCMM Transitional Care Mgmt-Moderate 13:40:15 CDT CPT-G0008 Administration of Influenza Virus Vaccine 13:59:20 CDT CPT-56898 Fluzone High-Dose Intramuscular Suspension 13:59:20 CDT CPT-62635 Venipuncture Draw Fee 09:56:19 CDT CPT-OV Office Visit 15:46:10 CDT
--- OUTSIDE RECORDS SUMMARY | 2017-08-25 21:23 | XMS REPORT | Clinical Summary ---
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 mellitus 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, type II [...] type II, uncontrolled 250.02 Active Maliheh Rodrigoglari TESTER EQUIPMENT Diabetes mellitus 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, type [...] with hyperglycemia 250.00 Active 03/21 Maliheh Ziglari TESTER EQUIPMENT Diabetes mellitus 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, type II or unspecified type, not stated as uncontrolled [facility] use of insulin treatment V58.67 Active Luxiheh Rodrigoglari TESTER EQUIPMENT Long-term (current) use of insulin Diabetes mellitus, type II with hypoglycemia 250.80 Active 07/22 Maliheh Ziglari TESTER EQUIPMENT Diabetes mellitus with other specified manifestations, type II or unspecified type, not stated as uncontrolled 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 Maliheh Ziglari TESTER EQUIPMENT Diabetes mellitus with renal manifestations, type II or unspecified type, not stated as uncontrolled Wellness exam V70.0 Active Dee Palmer APRN Routine general medical examination at a health care facility Fitting and adjustment of vascular catheter V58.81 Active 02/06 Dee Palmer APRN Encounter for fitting and adjustment of vascular catheter Unawareness of hypoglycemia in diabetes mellitus, type II 250.80 Active Maliheh Ziglari TESTER EQUIPMENT Diabetes mellitus with other specified manifestations, type [...] MD Headache ICD-784.0 Inactive Mekhi Dukes MD Diabetes, Type 2 ICD-250.00 Inactive Mekhi Dukes MD Medication List Medication Instructions Start Date Stop Date Generic Name NDC Status Provider Patient Instruction SIMVASTATIN 80 MG ORAL TABLET 1/2 tablet daily SIMVASTATIN 14467776026 No Longer Active Mekhi Dukes MD Active OMEPRAZOLE 20 MG ORAL CAPSULE DELAYED RELEASE 1 qd OMEPRAZOLE 69237542919 No Longer Active Mekhi Dukes MD Active METOPROLOL TARTRATE 25 MG ORAL TABLET 1/2 tablet twice a day METOPROLOL TARTRATE 59252357464 No Longer Active Mekhi Dukes MD Active LISINOPRIL 5 MG ORAL TABLET 1 daily LISINOPRIL 42247751560 No Longer Active Mekhi Dukes MD Active NOVOLOG FLEXPEN 100 UNIT/ML SUBCUTANEOUS SOLUTION PEN-INJECTOR Take 8 units with each meal, add 1u/50 for blood sugars above 150. INSULIN ASPART 05634777013 Active Moy PARISH Active GABAPENTIN 300 MG ORAL CAPSULE 1 tab BID GABAPENTIN 96262373551 Active Tami Miller RN Active PREDNISONE 20 MG ORAL TABLET Take 2 daily for 3 days and then 1 daily for 3 days PREDNISONE 57122040855 No Longer Active Malcarissashoaib Ziglari TESTER EQUIPMENT Active BENZONATATE 200 MG ORAL CAPSULE Take 1 tablet 3 times a day as needed for cough BENZONATATE 51936481726 No Longer Active Prosper Arenas MD Active HYDROCHLOROTHIAZIDE 25 MG ORAL TABLET 1 tablet by mouth daily HYDROCHLOROTHIAZIDE 04177825475 No Longer Active Prosper Arenas MD Active ACCU-CHEK JOANNA PLUS IN VITRO STRIP check blood sugars 5x a day, before each meal and bedtime and 15 minutes after treating a low blood. sugar GLUCOSE BLOOD 02219248418 Active Luxshoaib Wallaceglari TESTER EQUIPMENT Active LANTUS SOLOSTAR 100 UNIT/ML SUBCUTANEOUS SOLUTION PEN-INJECTOR Take 40 units at 7-8pm daily INSULIN GLARGINE 95432276404 Active Moy Wallaceglari TESTER EQUIPMENT Active MECLIZINE HCL 25 MG ORAL TABLET 1 daily needed for dizziness 2015 MECLIZINE HCL 51853367808 No Longer Active Malcarissaeh Ziglari TESTER EQUIPMENT Active BENZONATATE 200 MG ORAL CAPSULE 1 tab, 2-3 times a day BENZONATATE 85386918093 No Longer Active Malpapo Wallaceglari TESTER EQUIPMENT Active HALOPERIDOL 0.5 MG ORAL TABLET one tablet three times a day HALOPERIDOL 17462968549 No Longer Active [facility] Ziglari TESTER EQUIPMENT Active TRAZODONE HCL 50 MG ORAL TABLET three tablets at bed time TRAZODONE HCL 19411513606 No Longer Active [facility] Ziglari TESTER EQUIPMENT Active REVLIMID 25 MG ORAL CAPSULE one capsule daily for 21 days then off for 7 days LENALIDOMIDE 93772744637 No Longer Active Maleh Ziglari TESTER EQUIPMENT Active ZITHROMAX Z-EDDIE 250 MG ORAL TABLET 2 today, then 1 daily for 4 days AZITHROMYCIN 48750154426 No Longer Active Augustina Adolfo DOHERTY Active NOVOLIN R RELION 100 UNIT/ML INJECTION SOLUTION 30- 40 units each meal sliding scale INSULIN REGULAR HUMAN 92131228522 No Longer Active Malpapo Wallaceglari TESTER EQUIPMENT Active CALCIUM 500/D 500-200 MG-UNIT ORAL TABLET one tablet daily CALCIUM CARBONATE-VITAMIN D 79552105227 Active Prosper Arenas MD Active HYDROCODONE-ACETAMINOPHEN 5-500 MG ORAL TABLET 1-2 FOUR TIMES A DAY, PRN 2010 HYDROCODONE-ACETAMINOPHEN 69622631005 No Longer Active Prosper Arenas MD Active ASPIRIN 81 MG ORAL TABLET 1 tablet by mouth daily ASPIRIN 39658618353 Active Prosper Arenas MD Active DOXYCYCLINE HYCLATE 100 MG ORAL CAPSULE take one capsule by mouth twice daily for ten days DOXYCYCLINE HYCLATE 79377386930 No Longer Active Mekhi Dukes MD Active DOXYCYCLINE HYCLATE 100 MG ORAL CAPSULE take one capsule by mouth twice daily for ten days DOXYCYCLINE HYCLATE 100 MG ORAL CAPSULE 3067899 DOXYCYCLINE HYCLATE Inactive HYDROCODONE-ACETAMINOPHEN 5-500 MG ORAL TABLET 1-2 FOUR TIMES A DAY, PRN 2010 HYDROCODONE-ACETAMINOPHEN 5-500 MG ORAL TABLET 236369 HYDROCODONE-ACETAMINOPHEN Inactive NOVOLIN R RELION 100 UNIT/ML INJECTION SOLUTION 30- 40 units each meal sliding scale NOVOLIN R RELION 100 UNIT/ML INJECTION SOLUTION INSULIN REGULAR HUMAN Inactive ZITHROMAX Z-EDDIE 250 MG ORAL TABLET 2 today, then 1 daily for 4 days ZITHROMAX Z-EDDIE 250 MG ORAL TABLET 918095 AZITHROMYCIN Inactive REVLIMID 25 MG ORAL CAPSULE one capsule daily for 21 days then off for 7 days REVLIMID 25 MG ORAL CAPSULE LENALIDOMIDE Inactive TRAZODONE HCL 50 MG ORAL TABLET three tablets at bed time TRAZODONE HCL 50 MG ORAL TABLET 102679 TRAZODONE HCL Inactive HALOPERIDOL 0.5 MG ORAL TABLET one tablet three times a day HALOPERIDOL 0.5 MG ORAL TABLET 011902 HALOPERIDOL Inactive BENZONATATE 200 MG ORAL CAPSULE 1 tab, 2-3 times a day BENZONATATE 200 MG ORAL CAPSULE 801369 BENZONATATE Inactive MECLIZINE HCL 25 MG ORAL TABLET 1 daily needed for dizziness 2015 MECLIZINE HCL 25 MG ORAL TABLET 425633 MECLIZINE HCL Inactive HYDROCHLOROTHIAZIDE 25 MG ORAL TABLET 1 tablet by mouth daily HYDROCHLOROTHIAZIDE 25 MG ORAL TABLET 792243 HYDROCHLOROTHIAZIDE Inactive PREDNISONE 20 MG ORAL TABLET Take 2 daily for 3 days and then 1 daily for 3 days PREDNISONE 20 MG ORAL TABLET 414329 PREDNISONE Inactive LISINOPRIL 5 MG ORAL TABLET 1 daily LISINOPRIL 5 MG ORAL TABLET 237457 LISINOPRIL Inactive METOPROLOL TARTRATE 25 MG ORAL TABLET 1/2 tablet twice a day METOPROLOL TARTRATE 25 MG ORAL TABLET 359099 METOPROLOL TARTRATE Inactive OMEPRAZOLE 20 MG ORAL CAPSULE DELAYED RELEASE 1 qd OMEPRAZOLE 20 MG ORAL CAPSULE DELAYED RELEASE 298428 OMEPRAZOLE Inactive SIMVASTATIN 80 MG ORAL TABLET 1/2 tablet daily SIMVASTATIN 80 MG ORAL TABLET 844724 SIMVASTATIN Inactive BENZONATATE 200 MG ORAL CAPSULE Take 1 tablet 3 times a day as needed for cough BENZONATATE 200 MG ORAL CAPSULE 543704 BENZONATATE Inactive Immunizations Vaccine Administration Date Value [...] W/DIFF - Chemistry sodium, serum 137 mmol/L 691-693 8803/08/16 carbon dioxide, venous blood 26.3 mmol/L 21.0-32.0 [...] 4.3-6.0 Lab Report: Lipid Panel, Glucose- [employer] [employer] LABS - Chemistry cholesterol, serum 115 mg/dL 444-629 9632/08/18 triglyceride, serum, fasting 89 mg/dL 30-200 HDL cholesterol, serum 46 mg/dL 32-60 LDL cholesterol, serum 51 mg/dL 0-130 blood glucose 104 mg/dL 65-110 Lab Report: LIPID PANEL- REPOWER LAB - Chemistry cholesterol, serum 156 mg/dL 031-251 7175/02/20 HDL cholesterol, serum 52 mg/dL > OR=40 [...] mg/dL Encounters Code Encounter Date Provider Facility CPT-09438 Level 4 Est. Patient 16:29:19 CDT Mekhi Dukes MD [facility] CPT-60724 Level 3 New Patient 17:05:24 CDT Ismael Gracia MD [facility] CPT-55387 Level 2 Est. Patient 15:43:17 CDT Mekhi Dukes MD [facility] CPT-59793 Level 3 Est. Patient 09:30:37 [facility] Level 3 Est. Patient 10:00:14 CDT Mekhi Dukes MD [facility] CPT-14126 Level 3 Est. Patient 12:24:09 [facility] CPT-13791 Level 3 Est. Patient 14:34:57 CDT Prosper Arenas MD [facility] CPT-57033 Level 3 New Patient 15:44:53 APPLICATION MANAGER Mekhi Dukes MD [facility] CPT-36148 Level 3 Est. Patient 14:53:34 APPLICATION MANAGER Prosper Arenas MD [facility] CPT-40563 Level 4 Est. Patient 10:05:41 APPLICATION MANAGER [facility] CPT-50767 Level 3 Est. Patient 11:18:32 CDT [facility] CPT-15274 Level 4 Est. Patient 11:05:10 CDT [facility] CPT-24112 Level 3 Est. Patient 11:08:27 APPLICATION MANAGER Moy Garcia [facility] CPT-43198 Level 4 Est. Patient 10:43:59 CDT Prosper Arenas MD [facility] CPT-73022 Level 3 Est. Patient 10:51:19 CDT Moy Garcia [facility] CPT-08263 Level 3 Est. Patient 10:20:31 CDT Moy Garcia [facility] CPT-58903 Level 3 Est. Patient 17:08:45 CDT Moy Wallacerex [facility] CPT-48466 Level 2 Est. Patient 13:54:36 CDT Augustinajaclyn Mata DIGITAL MARKETING PROJECT MANAGER [facility] CPT-83302 Level 3 Est. Patient 12:00:42 CDT Prosper Arenas MD [facility] CPT-36047 Level 3 Est. Patient 09:57:28 APPLICATION MANAGER [facility]18 Level 3 Est. Patient 11:41:19 APPLICATION MANAGER [facility] CPT-44904 Level 4 Est. Patient 17:07:35 APPLICATION MANAGER [facility] CPT-34030 Level 5 Est. Patient 14:33:32 [facility] Level 3 Est. Patient 12:25:35 CDT Prosper Arenas MD [facility] Procedures Code Procedure Name Date Entry Date Standard Description CPT-000 Give Appropriate Flu Vaccine 10:13:55 APPLICATION MANAGER CPT-000 Give Immunizations Due 10:13:55 APPLICATION MANAGER CPT-89103 HGBA1C - LAB USE ONLY 09:42:47 APPLICATION MANAGER CPT-40858 TPSA - LAB USE ONLY 09:42:46 APPLICATION MANAGER CPT-62636 Venipuncture Draw Fee 09:42:46 APPLICATION MANAGER CPT-42736 Port a cath flush 13:33:18 APPLICATION MANAGER CPT-26641 First Vx - Ix admin for Medicare patients 10:42:57 APPLICATION MANAGER CPT-82548 Fluzone Preservative Free Intramuscular Suspension 10:42 :57 APPLICATION MANAGER CPT-G0438 Initial Annual Wellness Exam 10:13:55 APPLICATION MANAGER CPT-000 Give Appropriate Flu Vaccine 10:44:04 CDT CPT-000 Give Pneumovax 10:44:03 CDT CPT-67913 Port a cath flush 17:04:43 CDT CPT-17013 Prevnar 13 11:19:17 CDT CPT-19369 Fluzone Quadrivalent preservative free (>=3yrs.) 11:19: 17 CDT CPT-25920 Immunization Each Additional Inj 11:19:17 CDT CPT-92838 Immunization Single Admin 11:19:17 CDT CPT-03363 Port a cath flush 13:28:22 CDT CPT-TCMM Transitional Care Mgmt-Moderate 13:40:15 CDT CPT-G0008 Administration of Influenza Virus Vaccine 13:59:20 CDT CPT-80366 Fluzone High-Dose Intramuscular Suspension 13:59:20 CDT CPT-68183 Venipuncture Draw Fee 09:56:19 CDT CPT-OV Office Visit 15:46:10 CDT
--- OUTSIDE RECORDS SUMMARY | 2017-08-25 21:24 | XMS REPORT | Clinical Summary ---
Author Author Admin, IWONA Organization [employer] Address Unknown Phone Unavailable Allergies, Adverse Reactions, Alerts Allergy Name Reaction Description Start Date Severity Status Provider ERYTHROMYCIN Stomach cramps Moderate Active Prosper Arenas MD CODEINE Critical Active Maliheh Ziglari SWIMMER DARVOCET Critical Active Maliheh Ziglari SWIMMER LEVAQUIN Critical Active Maliheh Ziglari SWIMMER Conditions or Problems Problem Name Problem Code [...] type II, uncontrolled 250.02 Active Maliheh Ziglari SWIMMER Diabetes mellitus 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, type [...] diabetes mellitus with hyperglycemia 250.00 Active 03/21 Moy DURANTP Diabetes mellitus 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, type II or unspecified type, not stated as uncontrolled intermediate frame tender use of insulin treatment V58.67 Active Jose Antonioeh Leeannari SWIMMER Long-term (current) use of insulin Diabetes mellitus, type II with hypoglycemia 250.80 Active 07/22 Moy Bradshawari SWIMMER Diabetes mellitus with other specified manifestations, type II or unspecified type, not stated as uncontrolled 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 INSULIN GLARGINE 87260252906 Active Maliheh Ziglari SWIMMER Active MECLIZINE HCL 25 MG TABS 1 daily needed for dizziness MECLIZINE HCL 23617412751 No Longer Active Maleh Ziglari SWIMMER Active ACCU-CHEK JOANNA PLUS STRP check blood sugars 3x a day GLUCOSE BLOOD 33247607930 Active Maliheh Ziglari SWIMMER Active NOVOLOG FLEXPEN 100 UNIT/ML SOPN Take 25 units with each meal, add 2u/50 for blood sugars above 150. INSULIN ASPART 89231081327 Active [facility] Ziglari SWIMMER Active BENZONATATE 200 MG CAPS 1 tab, 2-3 times a day BENZONATATE 06896613507 No Longer Active Maleh Ziglari SWIMMER Active HALOPERIDOL 0.5 MG TABS one tablet three times a day HALOPERIDOL 44727710364 No Longer Active Maleh Ziglari SWIMMER Active TRAZODONE HCL 50 MG TAB three tablets at bed time TRAZODONE HCL 17923034592 No Longer Active [facility] Ziglari SWIMMER Active REVLIMID 25 MG CAPS one capsule daily for 21 days then off for 7 days 2014 LENALIDOMIDE 23505568974 No Longer Active [facility] Ziglari SWIMMER Active ZITHROMAX Z-EDDIE 250 MG TABS 2 today, then 1 daily for 4 days 2014 AZITHROMYCIN 15987014687 No Longer Active Augustina Amritgunnar RANGE SCIENTIST Active NOVOLIN R RELION 100 UNIT/ML INJ SOLN 30- 40 units each meal sliding scale INSULIN REGULAR HUMAN 93883810018 No Longer Active Maleh Ziglari SWIMMER Active LISINOPRIL 5 MG TABS 1 daily LISINOPRIL 53868924396 Active Prosper Arenas MD Active CALCIUM 500/D 500-200 MG-UNIT TABS one tablet daily CALCIUM CARBONATE- VITAMIN D 65734868423 Active Prosper Arenas MD Active HYDROCHLOROTHIAZIDE 25 MG TABS 1 tablet by mouth daily HYDROCHLOROTHIAZIDE 83460010731 Active Prosper Arenas MD Active HYDROCODONE-ACETAMINOPHEN 5-500 MG TABS 1-2 FOUR TIMES A DAY, PRN HYDROCODONE-ACETAMINOPHEN 79257175159 No Longer Active Prosper Arenas MD Active SIMVASTATIN 80 MG TABS 1/2 tablet daily SIMVASTATIN 28676504829 Active Prosper Arenas MD Active METOPROLOL TARTRATE 25 MG TABS 1/2 tablet twice a day METOPROLOL TARTRATE 00685689274 Active Prosper Arenas MD Active ASPIRIN 81 MG TAB 1 tablet by mouth daily ASPIRIN 52801303441 Active Prosper Arenas MD Active OMEPRAZOLE 20 MG CPDR 1 qd OMEPRAZOLE 22335990778 Active DARCIE Miller Active DOXYCYCLINE HYCLATE 100 MG CAPS take one capsule by mouth twice daily for ten days DOXYCYCLINE HYCLATE 77996278397 No Longer Active Mekhi Dukes MD Active DOXYCYCLINE HYCLATE 100 MG CAPS take one capsule by mouth twice daily for ten days DOXYCYCLINE HYCLATE 100 MG CAPS 0796240 DOXYCYCLINE HYCLATE Inactive HYDROCODONE-ACETAMINOPHEN 5-500 MG TABS [...] days 2014 ZITHROMAX Z-EDDIE 250 MG TABS 0863041 AZITHROMYCIN Inactive REVLIMID 25 MG CAPS one capsule daily for 21 days then off for 7 days 2014 REVLIMID 25 MG CAPS LENALIDOMIDE Inactive TRAZODONE HCL 50 MG TAB three tablets at bed time TRAZODONE HCL 50 MG TAB 689534 TRAZODONE HCL Inactive HALOPERIDOL 0.5 MG TABS one tablet three times a day HALOPERIDOL 0.5 MG TABS 106822 HALOPERIDOL Inactive BENZONATATE 200 MG CAPS 1 tab, 2-3 times a day BENZONATATE 200 MG CAPS 806320 BENZONATATE Inactive MECLIZINE HCL 25 MG TABS 1 daily needed for dizziness MECLIZINE HCL 25 MG TABS 286441 MECLIZINE HCL Inactive Immunizations Vaccine Administration Date [...] mg/dL Encounters Code Encounter Date Provider Facility CPT-05915 Level 3 Est. Patient 11:18:32 CDT [facility] CPT-04364 Level 4 Est. Patient 11:05:10 CDT [facility] CPT-57234 Level 3 Est. Patient 11:08:27 REED REPAIRER [facility] Level 4 Est. Patient 10:43:59 CDT Prosper Arenas MD [facility] CPT-67275 Level 3 Est. Patient 10:51:19 CDT [facility] CPT-45553 Level 3 Est. Patient 10:20:31 CDT [facility] CPT-31937 Level 3 Est. Patient 17:08:45 CDT Maliheh Ziglari [facility] CPT-85563 Level 2 Est. Patient 13:54:36 CDT Augustina Mata BESSY [facility] CPT-15049 Level 3 Est. Patient 12:00:42 CDT Prosper Arenas MD [facility] CPT-90556 Level 3 Est. Patient 09:57:28 REED REPAIRER Moy Garcia [facility] CPT-60084 Level 3 Est. Patient 11:41:19 REED REPAIRER [facility] CPT-29127 Level 4 Est. Patient 17:07:35 REED REPAIRER [facility] CPT-52880 Level 5 Est. Patient 14:33:32 CDT [facility] CPT-05016 Level 3 Est. Patient 12:25:35 CDT Prosper Arenas MD [facility] Procedures Code Procedure Name Date Entry Date Standard Description CPT-76394 HGBA1C - LAB USE ONLY 09:42:47 REED REPAIRER CPT-88873 TPSA - LAB USE ONLY 09:42:46 REED REPAIRER CPT-94602 Venipuncture Draw Fee 09:42:46 REED REPAIRER CPT-34092 Port a cath flush 13:33:18 REED REPAIRER CPT-92515 First Vx - Ix admin for Medicare patients 10:42:57 REED REPAIRER CPT-75592 Fluzone Preservative Free Intramuscular Suspension 10:42 :57 REED REPAIRER CPT-G0438 Initial Annual Wellness Exam 10:13:55 REED REPAIRER CPT-000 Give Appropriate Flu Vaccine 10:44:04 CDT CPT-000 Give Pneumovax 10:44:03 CDT CPT-51985 Port a cath flush 17:04:43 CDT CPT-14694 Prevnar 13 11:19:17 CDT CPT-74128 Fluzone Quadrivalent preservative free (>=3yrs.) 11:19: 17 CDT CPT-51848 Immunization Each Additional Inj 11:19:17 CDT CPT-84175 Immunization Single Admin 11:19:17 CDT CPT-58408 Port a cath flush 13:28:22 CDT CPT-TCMM Transitional Care Mgmt-Moderate 13:40:15 CDT CPT-G0008 Administration of Influenza Virus Vaccine 13:59:20 CDT CPT-55024 Fluzone High-Dose Intramuscular Suspension 13:59:20 CDT CPT-49014 Venipuncture Draw Fee 09:56:19 CDT CPT-OV Office Visit 15:46:10 CDT
--- OUTSIDE RECORDS SUMMARY | 2017-08-25 21:24 | XMS REPORT ---
Author Author [email or web address] [facility] Medical Staff Organization [place] [employer] [facility] Address [address] [place], [place] [address] Phone [phone] Summary purpose TRANSITION OF CARE AUTO GENERATION [...] diagnostic tests and/or laboratory data RESULTS Chemistry [id number]:15:00 Result Normal Range Units Sodium 136 134-145 mEq/l Potassium 4.2 3.5-5.1 mEq/l Chloride 98 98-107 mEq/l CO2 26.8 22-28 mEq/l Glucose H 342 70-105 mg/dl BUN 16 7-18 mg/dl Creatinine H 1.87 0.6-1.3 mg/dl Calcium 8.8 8.4-10.2 mg/dl TP - Total Protein 7.2 6.0-8.3 g/dl Albumin L 3.4 3.5-5 g/dl Bilirubin - Total 0.5 0.1-1.0 mg/dl AST H 97 10-42 IU/L ALT H 145 12-65 IU/L ALP 98 39-107 IU/L Osmolality 286.7 280-300 mOsm/L Albumin/Globulin Ratio 0.9 0-8 Anion GAP 11.2 8-16 BUN/Creatinine Ratio L 8.6 10-20 Estimated GFR L 44 >=60 mL/min/1.7 Hematology [id number]:15:00 Result Normal Range Units WBC 5.7 4.8-10.8 103/uL RBC 5.2 4.7-6.1 106/uL HGB 16.3 13.0-18.0 g/dl HCT 46.9 41.9-52.0 % MCV 91.1 80-94 FL MCH H 31.7 27-31 pg MCHC 34.8 33-37 g/dl RDW 11.8 11.5-15.5 % PLT 184 130-400 103/uL MPV H 11.3 7.3-10.4 FL Segs L 34.0 40-70 % Lymphs H 52.0 20-40 % [place] 9.0 0-10 % Eos 5.0 0-7 % Radiology Results [id number]:00 Result Normal Range Units MPV H 11.3 7.3-10.4 FL History of procedures Procedure Code Code Type Description Date Performed Performing Physician 00023 CPT-4 COMPREHEN METABOLIC PANEL 05-14-2015 HENRIK RIGGINS 69250 CPT-4 ASSAY NEPHELOMETRY NOT SPEC 05-14-2015 HENRIK RIGGINS 35241 CPT-4 DRAW BLOOD OFF VENOUS DEVICE 05-14-2015 HENRIK RIGGINS 45997 CPT-4 COMPLETE CBC AUTOMATED 05-14-2015 HENRIK RIGGINS 03602 CPT-4 BL SMEAR W/DIFF WBC COUNT 05-14-2015 HENRIK RIGGINS J1642 CPT-4 INJ HEPARIN SODIUM PER 10 U 05-14-2015 HENRIK RIGGINS Functional status No functional or [...]
--- OUTSIDE RECORDS SUMMARY | 2017-08-25 21:25 | XMS REPORT | Clinical Summary ---
Author Author Admin, IWONA Organization [email or web address] Address Unknown Phone Unavailable Allergies, Adverse Reactions, Alerts Allergy Name Reaction Description Start Date Severity Status Provider ERYTHROMYCIN Stomach cramps Moderate Active Prosper Arenas MD CODEINE Critical Active Maliheh Ziglari PIPE FOREMAN DARVOCET Critical Active Maliheh Ziglari PIPE FOREMAN LEVAQUIN Critical Active Maliheh Ziglari PIPE FOREMAN Conditions or Problems Problem Name Problem Code Onset Date Status Entry Date Provider Comment Standard Description Annotate Diabetes, Type 2 250.00 Resolved Tami Miller glass washer mellitus 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, type II [...] type II, uncontrolled 250.02 Active Maliheh Rodrigoglari PIPE FOREMAN Diabetes mellitus 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, type [...] with hyperglycemia 250.00 Active 03/21 Maliheh Ziglari PIPE FOREMAN Diabetes mellitus 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, type II or unspecified type, not stated as uncontrolled FDC use of insulin treatment V58.67 Active Luxiheh Rodrigoglari PIPE FOREMAN Long-term (current) use of insulin Diabetes mellitus, type II with hypoglycemia 250.80 Active 07/22 Maliheh Ziglari PIPE FOREMAN Diabetes mellitus with other specified manifestations, type II or unspecified type, not stated as uncontrolled 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 INSULIN ASPART 51095761487 Active Moy DURANTP Active GABAPENTIN 300 MG ORAL CAPS 1 tab BID GABAPENTIN 42688968859 Active Tami Miller RN Active PREDNISONE 20 MG TABS Take 2 daily for 3 days and then 1 daily for 3 days PREDNISONE 97431040237 No Longer Active Maliheh Ziglari PIPE FOREMAN Active BENZONATATE 200 MG CAPS Take 1 tablet 3 times a day as needed for cough 07/29 BENZONATATE 25230182928 No Longer Active Prosper Arenas MD Active HYDROCHLOROTHIAZIDE 25 MG TABS 1 tablet by mouth daily HYDROCHLOROTHIAZIDE 05351601641 No Longer Active Prosper Arenas MD Active ACCU-CHEK JOANNA PLUS STRP check blood sugars 5x a day, before each meal and bedtime and 15 minutes after treating a low blood. sugar GLUCOSE BLOOD 28081343130 Active Maliheh Ziglari PIPE FOREMAN Active LANTUS SOLOSTAR 100 UNIT/ML SOLN Take 40 units at 7-8pm daily INSULIN GLARGINE 61178791086 Active Maliheh Ziglari PIPE FOREMAN Active MECLIZINE HCL 25 MG TABS 1 daily needed for dizziness MECLIZINE HCL 74005694897 No Longer Active Maliheh Ziglari PIPE FOREMAN Active BENZONATATE 200 MG CAPS 1 tab, 2-3 times a day BENZONATATE 71346802275 No Longer Active Maliheh Ziglari PIPE FOREMAN Active HALOPERIDOL 0.5 MG TABS one tablet three times a day HALOPERIDOL 55373824445 No Longer Active Maliheh Ziglari PIPE FOREMAN Active TRAZODONE HCL 50 MG TAB three tablets at bed time TRAZODONE HCL 46895520305 No Longer Active Maliheh Ziglari PIPE FOREMAN Active REVLIMID 25 MG CAPS one capsule daily for 21 days then off for 7 days 2014 LENALIDOMIDE 03404737102 No Longer Active Maliheh Ziglari PIPE FOREMAN Active ZITHROMAX Z-EDDIE 250 MG TABS 2 today, then 1 daily for 4 days 2014 AZITHROMYCIN 70309145986 No Longer Active Augustina Mata PHYSICAL SCIENCES INSTRUCTOR Active NOVOLIN R RELION 100 UNIT/ML INJ SOLN 30- 40 units each meal sliding scale INSULIN REGULAR HUMAN 72598972790 No Longer Active Moy PARISH Active LISINOPRIL 5 MG TABS 1 daily LISINOPRIL 36299817423 Active Prosper Arenas MD Active CALCIUM 500/D 500-200 MG-UNIT TABS one tablet daily CALCIUM CARBONATE- VITAMIN D 18780957923 Active Prosper Arenas MD Active HYDROCODONE-ACETAMINOPHEN 5-500 MG TABS 1-2 FOUR TIMES A DAY, PRN HYDROCODONE-ACETAMINOPHEN 27035951659 No Longer Active Prosper Arenas MD Active SIMVASTATIN 80 MG TABS 1/2 tablet daily SIMVASTATIN 26320733192 Active Prosper Arenas MD Active METOPROLOL TARTRATE 25 MG TABS 1/2 tablet twice a day METOPROLOL TARTRATE 68464347851 Active Prosper Arenas MD Active ASPIRIN 81 MG TAB 1 tablet by mouth daily ASPIRIN 41744423123 Active Prosper Arenas MD Active OMEPRAZOLE 20 MG CPDR 1 qd OMEPRAZOLE 21392591840 Active DARCIE Miller Active DOXYCYCLINE HYCLATE 100 MG CAPS take one capsule by mouth twice daily for ten days DOXYCYCLINE HYCLATE 77724294591 No Longer Active Mekhi Dukes MD Active DOXYCYCLINE HYCLATE 100 MG CAPS take one capsule by mouth twice daily for ten days DOXYCYCLINE HYCLATE 100 MG CAPS 0088175 DOXYCYCLINE HYCLATE Inactive HYDROCODONE-ACETAMINOPHEN 5-500 MG TABS [...] days 2014 ZITHROMAX Z-EDDIE 250 MG TABS 8705504 AZITHROMYCIN Inactive REVLIMID 25 MG CAPS one capsule daily for 21 days then off for 7 days 2014 REVLIMID 25 MG CAPS LENALIDOMIDE Inactive TRAZODONE HCL 50 MG TAB three tablets at bed time TRAZODONE HCL 50 MG TAB 547242 TRAZODONE HCL Inactive HALOPERIDOL 0.5 MG TABS one tablet three times a day HALOPERIDOL 0.5 MG TABS 108601 HALOPERIDOL Inactive BENZONATATE 200 MG CAPS 1 tab, 2-3 times a day BENZONATATE 200 MG CAPS 716959 BENZONATATE Inactive MECLIZINE HCL 25 MG TABS 1 daily needed for dizziness MECLIZINE HCL 25 MG TABS 631722 MECLIZINE HCL Inactive HYDROCHLOROTHIAZIDE 25 MG TABS 1 tablet by mouth daily HYDROCHLOROTHIAZIDE 25 MG TABS 190830 HYDROCHLOROTHIAZIDE Inactive PREDNISONE 20 MG TABS Take 2 daily for 3 days and then 1 daily for 3 days PREDNISONE 20 MG TABS 269308 PREDNISONE Inactive BENZONATATE 200 MG CAPS Take 1 tablet 3 times a day as needed for cough 07/29 BENZONATATE 200 MG CAPS 186538 BENZONATATE Inactive Immunizations Vaccine Administration Date Value [...] W/DIFF - Chemistry sodium, serum 137 mmol/L 193-833 9945/08/16 carbon dioxide, venous blood 26.3 mmol/L 21.0-32.0 [...] LABS - Chemistry cholesterol, serum 115 mg/dL 935-770 0521/08/18 triglyceride, serum, fasting 89 mg/dL 30-200 HDL cholesterol, serum 46 mg/dL 32-60 LDL cholesterol, serum 51 mg/dL 0-130 blood glucose 104 mg/dL 65-110 Lab Report: LIPID PANEL- REPOWER LAB - Chemistry cholesterol, serum 156 mg/dL [phone]/02/20 HDL cholesterol, serum 52 mg/dL > OR=40 [...] mg/dL Encounters Code Encounter Date Provider Facility CPT-95896 Level 3 Est. [facility] CPT-06155 Level 3 Est. Patient 10:00:14 CDT Mekhi Dukes MD [facility] CPT-72562 Level 3 Est. [facility] 12:24:[facility] Level 3 Est. Patient 14:34:57 CDT Prosper Arenas MD [facility] CPT-02816 Level 3 New Patient 15:44:53 CONFERENCE CENTER MANAGER Mekhi Dukes MD [facility] CPT-61715 Level 3 Est. Patient 14:53:34 CONFERENCE CENTER MANAGER Prosper Arenas MD [facility] CPT-89859 Level 4 Est. Patient 10:05:41 [facility] C[facility] CPT-67701 Level 3 Est. [facility]:18[facility] CPT-75173 Level 4 Est. Patient 11:05:10 [facility] CPT-16862 Level 3 Est. Patient 11:08:27 CONFERENCE CENTER MANAGER [facility] CPT-08772 Level 4 Est. Patient 10:43:59 CDT Prosper Arenas MD [facility] CPT-67928 Level 3 Est. Patient 10:51:19 CDT [facility]23 Level 3 Est. Patient 10:20:31 CDT [facility] CPT-02807 Level 3 Est. Patient 17:08:45 CDT [facility] CPT-89087 Level 2 Est. Patient 13:54:36 CDT Augustina Mata APRN [facility] CPT-21501 Level 3 Est. Patient 12:00:42 CDT Prosper Arenas MD [facility] CPT-73539 Level 3 Est. Patient 09:57:28 [facility] CENTER [facility]PT-79676 Level 3 Est. Patient 11:41:19 CONFERENCE CENTER MANAGER [facility] CPT-38686 Level 4 Est. Patient 17:07:35 CONFERENCE CENTER MANAGER [facility] CPT-47255 Level 5 Est. Patient 14:33:32 [facility] CPT-76227 Level 3 Est. Patient 12:25:35 CDT Prosper Arenas MD [facility] Procedures Code Procedure Name Date Entry Date Standard Description CPT-000 Give Appropriate Flu Vaccine 10:13:55 CONFERENCE CENTER MANAGER CPT-000 Give Immunizations Due 10:13:55 CONFERENCE CENTER MANAGER CPT-51652 HGBA1C - LAB USE ONLY 09:42:47 CONFERENCE CENTER MANAGER CPT-91978 TPSA - LAB USE ONLY 09:42:46 CONFERENCE CENTER MANAGER CPT-32459 Venipuncture Draw Fee 09:42:46 CONFERENCE CENTER MANAGER CPT-84627 Port a cath flush 13:33:18 CONFERENCE CENTER MANAGER CPT-74917 First Vx - Ix admin for Medicare patients 10:42:57 CONFERENCE CENTER MANAGER CPT-43328 Fluzone Preservative Free Intramuscular Suspension 10:42 :57 CONFERENCE CENTER MANAGER CPT-G0438 Initial Annual Wellness Exam 10:13:55 CONFERENCE CENTER MANAGER CPT-000 Give Appropriate Flu Vaccine 10:44:04 CDT CPT-000 Give Pneumovax 10:44:03 CDT CPT-54195 Port a cath flush 17:04:43 CDT CPT-54825 Prevnar 13 11:19:17 CDT CPT-22730 Fluzone Quadrivalent preservative free (>=3yrs.) 11:19: 17 CDT CPT-27653 Immunization Each Additional Inj 11:19:17 CDT CPT-92091 Immunization Single Admin 11:19:17 CDT CPT-29285 Port a cath flush 13:28:22 CDT CPT-TCMM Transitional Care Mgmt-Moderate 13:40:15 CDT CPT-G0008 Administration of Influenza Virus Vaccine 13:59:20 CDT CPT-17088 Fluzone High-Dose Intramuscular Suspension 13:59:20 CDT CPT-70719 Venipuncture Draw Fee 09:56:19 CDT CPT-OV Office Visit 15:46:10 CDT
--- OUTSIDE RECORDS SUMMARY | 2017-08-25 21:25 | XMS REPORT | Clinical Summary ---
Author Author Admin, IWONA Organization [employer] 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, type II [...] type II, uncontrolled 250.02 Active Maliheh Rodrigoglari CHEMICAL PROCESSING SUPERVISOR Diabetes mellitus 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, type [...] with hyperglycemia 250.00 Active 03/21 Maliheh Ziglari CHEMICAL PROCESSING SUPERVISOR Diabetes mellitus 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, type II or unspecified type, not stated as uncontrolled senior care use of insulin treatment V58.67 Active Luxiheh Rodrigoglari CHEMICAL PROCESSING SUPERVISOR Long-term (current) use of insulin Diabetes mellitus, type II with hypoglycemia 250.80 Active 07/22 Maliheh Ziglari CHEMICAL PROCESSING SUPERVISOR Diabetes mellitus with other specified manifestations, type II or unspecified type, not stated as uncontrolled 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 Maliheh Ziglari CHEMICAL PROCESSING SUPERVISOR Diabetes mellitus with renal manifestations, type II or unspecified type, not stated as uncontrolled Wellness exam V70.0 Active Dee Palmer APRN Routine general medical examination at a health care facility Fitting and adjustment of vascular catheter V58.81 Active 02/06 Dee Palmer APRN Encounter for fitting and adjustment of vascular catheter Unawareness of hypoglycemia in diabetes mellitus, type II 250.80 Active Maliheh Ziglari CHEMICAL PROCESSING SUPERVISOR Diabetes mellitus with other specified manifestations, type [...] 80 MG TABS 1/2 tablet daily SIMVASTATIN 87471391758 No Longer Active Mekhi Dukes MD Active OMEPRAZOLE 20 MG CPDR 1 qd OMEPRAZOLE 34981124309 No Longer Active Mekhi Dukes MD Active METOPROLOL TARTRATE 25 MG TABS 1/2 tablet twice a day METOPROLOL TARTRATE 48611729558 No Longer Active Mekhi Dukes MD Active LISINOPRIL 5 MG TABS 1 daily LISINOPRIL 69657364607 No Longer Active Mekhi Dukes MD Active NOVOLOG FLEXPEN 100 UNIT/ML SOPN Take 8 units with each meal, add 1u/50 for blood sugars above 150. INSULIN ASPART 37623911628 Active Moy DURANTP Active GABAPENTIN 300 MG ORAL CAPS 1 tab BID GABAPENTIN 59238283013 Active Tami Miller RN Active PREDNISONE 20 MG TABS Take 2 daily for 3 days and then 1 daily for 3 days PREDNISONE 83097677564 No Longer Active Maliheh Ziglari CHEMICAL PROCESSING SUPERVISOR Active BENZONATATE 200 MG CAPS Take 1 tablet 3 times a day as needed for cough 07/29 BENZONATATE 30504012062 No Longer Active Prosper Arenas MD Active HYDROCHLOROTHIAZIDE 25 MG TABS 1 tablet by mouth daily HYDROCHLOROTHIAZIDE 71436461795 No Longer Active Prosper Arenas MD Active ACCU-CHEK JOANNA PLUS STRP check blood sugars 5x a day, before each meal and bedtime and 15 minutes after treating a low blood. sugar GLUCOSE BLOOD 31193907610 Active Maliheh Ziglari CHEMICAL PROCESSING SUPERVISOR Active LANTUS SOLOSTAR 100 UNIT/ML SOLN Take 40 units at 7-8pm daily INSULIN GLARGINE 07657733531 Active Maliheh Ziglari CHEMICAL PROCESSING SUPERVISOR Active MECLIZINE HCL 25 MG TABS 1 daily needed for dizziness MECLIZINE HCL 60708553510 No Longer Active Maliheh Ziglari CHEMICAL PROCESSING SUPERVISOR Active BENZONATATE 200 MG CAPS 1 tab, 2-3 times a day BENZONATATE 71752541831 No Longer Active Maliheh Ziglari CHEMICAL PROCESSING SUPERVISOR Active HALOPERIDOL 0.5 MG TABS one tablet three times a day HALOPERIDOL 22701879097 No Longer Active Moy Ziglari CHEMICAL PROCESSING SUPERVISOR Active TRAZODONE HCL 50 MG TAB three tablets at bed time TRAZODONE HCL 89823034420 No Longer Active Malpapo Ziglari CHEMICAL PROCESSING SUPERVISOR Active REVLIMID 25 MG CAPS one capsule daily for 21 days then off for 7 days 2014 LENALIDOMIDE 16058926487 No Longer Active Maleh Ziglari CHEMICAL PROCESSING SUPERVISOR Active ZITHROMAX Z-EDDIE 250 MG TABS 2 today, then 1 daily for 4 days 2014 AZITHROMYCIN 96592808920 No Longer Active Augustina Mata RADIO MECHANIC Active NOVOLIN R RELION 100 UNIT/ML INJ SOLN 30- 40 units each meal sliding scale INSULIN REGULAR HUMAN 22826649562 No Longer Active Malpapo Ziglari CHEMICAL PROCESSING SUPERVISOR Active CALCIUM 500/D 500-200 MG-UNIT TABS one tablet daily CALCIUM CARBONATE- VITAMIN D 65885912529 Active Prosper Arenas MD Active HYDROCODONE-ACETAMINOPHEN 5-500 MG TABS 1-2 FOUR TIMES A DAY, PRN HYDROCODONE-ACETAMINOPHEN 36275000469 No Longer Active Prosper Arenas MD Active ASPIRIN 81 MG TAB 1 tablet by mouth daily ASPIRIN 88714900374 Active Prosper Arenas MD Active DOXYCYCLINE HYCLATE 100 MG CAPS take one capsule by mouth twice daily for ten days DOXYCYCLINE HYCLATE 08777479279 No Longer Active Mekhi Dukes MD Active DOXYCYCLINE HYCLATE 100 MG CAPS take one capsule by mouth twice daily for ten days DOXYCYCLINE HYCLATE 100 MG CAPS 1972941 DOXYCYCLINE HYCLATE Inactive HYDROCODONE-ACETAMINOPHEN 5-500 MG TABS 1-2 FOUR TIMES A DAY, PRN HYDROCODONE-ACETAMINOPHEN 5-500 MG TABS 892851 HYDROCODONE- ACETAMINOPHEN Inactive NOVOLIN R RELION 100 UNIT/ML INJ SOLN 30- 40 units each meal sliding scale NOVOLIN R RELION 100 UNIT/ML INJ SOLN INSULIN REGULAR HUMAN Inactive ZITHROMAX Z-EDDIE 250 MG TABS 2 today, then 1 daily for 4 days 2014 ZITHROMAX Z-EDDIE 250 MG TABS 866603 AZITHROMYCIN Inactive REVLIMID 25 MG CAPS one capsule daily for 21 days then off for 7 days 2014 REVLIMID 25 MG CAPS LENALIDOMIDE Inactive TRAZODONE HCL 50 MG TAB three tablets at bed time TRAZODONE HCL 50 MG TAB 366472 TRAZODONE HCL Inactive HALOPERIDOL 0.5 MG TABS one tablet three times a day HALOPERIDOL 0.5 MG TABS 084294 HALOPERIDOL Inactive BENZONATATE 200 MG CAPS 1 tab, 2-3 times a day BENZONATATE 200 MG CAPS 151712 BENZONATATE Inactive MECLIZINE HCL 25 MG TABS 1 daily needed for dizziness MECLIZINE HCL 25 MG TABS 668707 MECLIZINE HCL Inactive HYDROCHLOROTHIAZIDE 25 MG TABS 1 tablet by mouth daily HYDROCHLOROTHIAZIDE 25 MG TABS 018783 HYDROCHLOROTHIAZIDE Inactive PREDNISONE 20 MG TABS Take 2 daily for 3 days and then 1 daily for 3 days PREDNISONE 20 MG TABS 421455 PREDNISONE Inactive LISINOPRIL 5 MG TABS 1 daily LISINOPRIL 5 MG TABS 298727 LISINOPRIL Inactive METOPROLOL TARTRATE 25 MG TABS 1/2 tablet twice a day METOPROLOL TARTRATE 25 MG TABS 210429 METOPROLOL TARTRATE Inactive OMEPRAZOLE 20 MG CPDR 1 qd OMEPRAZOLE 20 MG CPDR 276082 OMEPRAZOLE Inactive SIMVASTATIN 80 MG TABS 1/2 tablet daily SIMVASTATIN 80 MG TABS 851101 SIMVASTATIN Inactive BENZONATATE 200 MG CAPS Take 1 tablet 3 times a day as needed for cough 07/29 BENZONATATE 200 MG CAPS 485197 BENZONATATE Inactive Immunizations Vaccine Administration Date Value [...] W/DIFF - Chemistry sodium, serum 137 mmol/L 666-048 8189/08/16 carbon dioxide, venous blood 26.3 mmol/L 21.0-32.0 [...] LABS - Chemistry cholesterol, serum 115 mg/dL 258-441 7714/08/18 triglyceride, serum, fasting 89 mg/dL 30-200 HDL cholesterol, serum 46 mg/dL 32-60 LDL cholesterol, serum 51 mg/dL 0-130 blood glucose 104 mg/dL 65-110 Lab Report: LIPID PANEL- REPOWER LAB - Chemistry cholesterol, serum 156 mg/dL [phone]/02/20 HDL cholesterol, serum 52 mg/dL > OR=40 [...] mg/dL Encounters Code Encounter Date Provider Facility CPT-94854 Level 3 New Patient 17:05:24 CDT Ismael Gracia MD [facility] CPT-73886 Level 2 Est. Patient 15:43:17 CDT Mekhi Dukes MD [facility] CPT-98620 Level 3 Est. Patient 09:30:37 CDT [facility] Level 3 Est. Patient 10:00:14 CDT Mekhi Dukes MD [facility] CPT-81348 Level 3 Est. Patient 12:24:09 CDT [facility]PT-66658 Level 3 Est. Patient 14:34:57 CDT Prosper Arenas MD [facility] CPT-17404 Level 3 New Patient 15:44:53 AREA SAFETY MANAGER Mekhi Dukes MD [facility] CPT-85315 Level 3 Est. Patient 14:53:34 AREA SAFETY MANAGER Prosper Arenas MD [facility] CPT-32392 Level 4 Est. Patient 10:05:41 AREA SAFETY MANAGER [facility] Level 3 Est. Patient 11:18:32 CDT [facility] CPT-97351 Level 4 Est. Patient 11:05:10 CDT [facility] CPT-94665 Level 3 Est. Patient 11:08:27 AREA SAFETY MANAGER [facility] Level 4 Est. Patient 10:43:59 CDT Prosper Arenas MD [facility] CPT-81857 Level 3 Est. Patient 10:51:19 CDT [facility] CPT-55466 Level 3 Est. Patient 10:20:31 CDT Moy Garcia [facility] CPT-69572 Level 3 Est. Patient 17:08:45 [facility] CPT-94123 Level 2 Est. Patient 13:54:36 CDT Augustina Mata BESSY [facility] CPT-67500 Level 3 Est. Patient 12:00:42 CDT Prosper Arenas MD [facility] CPT-65295 Level 3 Est. Patient 09:57:28 AREA SAFETY MANAGER [facility] Level 3 Est. Patient 11:41:19 AREA SAFETY MANAGER [facility]-39787 Level 4 Est. Patient 17:07:35 AREA SAFETY MANAGER [facility] CPT-63017 Level 5 Est. Patient 14:33:32 CDT [facility] CPT-37102 Level 3 Est. Patient 12:25:35 CDT Prosper Arenas MD [facility] Procedures Code Procedure Name Date Entry Date Standard Description CPT-000 Give Appropriate Flu Vaccine 10:13:55 AREA SAFETY MANAGER CPT-000 Give Immunizations Due 10:13:55 AREA SAFETY MANAGER CPT-27909 HGBA1C - LAB USE ONLY 09:42:47 AREA SAFETY MANAGER CPT-68141 TPSA - LAB USE ONLY 09:42:46 AREA SAFETY MANAGER CPT-61640 Venipuncture Draw Fee 09:42:46 AREA SAFETY MANAGER CPT-92136 Port a cath flush 13:33:18 AREA SAFETY MANAGER CPT-02436 First Vx - Ix admin for Medicare patients 10:42:57 AREA SAFETY MANAGER CPT-09041 Fluzone Preservative Free Intramuscular Suspension 10:42 :57 AREA SAFETY MANAGER CPT-G0438 Initial Annual Wellness Exam 10:13:55 AREA SAFETY MANAGER CPT-000 Give Appropriate Flu Vaccine 10:44:04 CDT CPT-000 Give Pneumovax 10:44:03 CDT CPT-50213 Port a cath flush 17:04:43 CDT CPT-85003 Prevnar 13 11:19:17 CDT CPT-16820 Fluzone Quadrivalent preservative free (>=3yrs.) 11:19: 17 CDT CPT-12181 Immunization Each Additional Inj 11:19:17 CDT CPT-92941 Immunization Single Admin 11:19:17 CDT CPT-97419 Port a cath flush 13:28:22 CDT CPT-TCMM Transitional Care Mgmt-Moderate 13:40:15 CDT CPT-G0008 Administration of Influenza Virus Vaccine 13:59:20 CDT CPT-88170 Fluzone High-Dose Intramuscular Suspension 13:59:20 CDT CPT-90251 Venipuncture Draw Fee 09:56:19 CDT CPT-OV Office Visit 15:46:10 CDT
--- OUTSIDE RECORDS SUMMARY | 2017-08-25 21:26 | XMS REPORT | Clinical Summary ---
Author Author Admin, IWONA Organization [employer] Address Unknown Phone Unavailable Allergies, Adverse Reactions, Alerts Allergy Name Reaction Description Start Date Severity Status Provider ERYTHROMYCIN Stomach cramps Moderate Active Prosper Arenas MD CODEINE Critical Active Maliheh Ziglari DIRECTOR OF EXHIBITS DARVOCET Critical Active Maliheh Ziglari DIRECTOR OF EXHIBITS LEVAQUIN Critical Active Maliheh Ziglari DIRECTOR OF EXHIBITS Conditions or Problems Problem Name Problem Code [...] II, uncontrolled 250.02 Active Maliheh Ziglari DIRECTOR OF EXHIBITS Diabetes mellitus 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, type [...] hyperglycemia 250.00 Active 03/21 Maliheh Ziglari DIRECTOR OF EXHIBITS Diabetes mellitus 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, type II or unspecified type, not stated as uncontrolled 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 V58.67 Active Luxiheh Ziglari DIRECTOR OF EXHIBITS Long-term (current) use of insulin Diabetes mellitus, type II with hypoglycemia 250.80 Active 07/22 Maliheh Ziglari DIRECTOR OF EXHIBITS Diabetes mellitus with other specified manifestations, type II or unspecified type, not stated as uncontrolled 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 Maliheh Ziglari DIRECTOR OF EXHIBITS Diabetes mellitus with renal manifestations, type II or unspecified type, not stated as uncontrolled Wellness exam V70.0 Active Dee Palmer APRN Routine general medical examination at a health care facility Fitting and adjustment of vascular catheter V58.81 Active 02/06 Dee Palmer APRN Encounter for fitting and adjustment of vascular catheter Unawareness of hypoglycemia in diabetes mellitus, type II 250.80 Active Maliheh Ziglari DIRECTOR OF EXHIBITS Diabetes mellitus with other specified manifestations, type II or unspecified type, not stated as uncontrolled Medication List Medication Instructions Start Date Stop Date Generic Name NDC Status Provider Patient Instruction ACCU-CHEK JOANNA PLUS STRP check blood sugars 5x a day, before each meal and bedtime and 15 minutes after treating a low blood. sugar GLUCOSE BLOOD 10541179811 Active Maliheh Ziglari DIRECTOR OF EXHIBITS Active NOVOLOG FLEXPEN 100 UNIT/ML SOPN Take 25 units with each meal, add 1u/50 for blood sugars above 150. INSULIN ASPART 48180683161 Active Maliheh Ziglari DIRECTOR OF EXHIBITS Active LANTUS SOLOSTAR 100 UNIT/ML SOLN Take 40 units at 7-8pm daily INSULIN GLARGINE 79946745179 Active Maliheh Ziglari DIRECTOR OF EXHIBITS Active MECLIZINE HCL 25 MG TABS 1 daily needed for dizziness MECLIZINE HCL 94465324048 No Longer Active Maliheh Ziglari DIRECTOR OF EXHIBITS Active BENZONATATE 200 MG CAPS 1 tab, 2-3 times a day BENZONATATE 39624633562 No Longer Active Maliheh Ziglari DIRECTOR OF EXHIBITS Active HALOPERIDOL 0.5 MG TABS one tablet three times a day HALOPERIDOL 78198589743 No Longer Active Maliheh Ziglari DIRECTOR OF EXHIBITS Active TRAZODONE HCL 50 MG TAB three tablets at bed time TRAZODONE HCL 74054176872 No Longer [facility] DIRECTOR OF EXHIBITS Active REVLIMID 25 MG CAPS one capsule daily for 21 days then off for 7 days 2014 LENALIDOMIDE 73461561475 No Longer Active Maleh Ziglari DIRECTOR OF EXHIBITS Active ZITHROMAX Z-EDDIE 250 MG TABS 2 today, then 1 daily for 4 days 2014 AZITHROMYCIN 53290788247 No Longer Active Augustina Yoann NURSING SPECIALIST Active NOVOLIN R RELION 100 UNIT/ML INJ SOLN 30- 40 units each meal sliding scale INSULIN REGULAR HUMAN 45581952755 No Longer Active Maliheh Ziglari DIRECTOR OF EXHIBITS Active LISINOPRIL 5 MG TABS 1 daily LISINOPRIL 59099620130 Active Prosper Arenas MD Active CALCIUM 500/D 500-200 MG-UNIT TABS one tablet daily CALCIUM CARBONATE- VITAMIN D 21540234397 Active Prosper Arenas MD Active HYDROCHLOROTHIAZIDE 25 MG TABS 1 tablet by mouth daily HYDROCHLOROTHIAZIDE 92278567910 Active Prosper Arenas MD Active HYDROCODONE-ACETAMINOPHEN 5-500 MG TABS 1-2 FOUR TIMES A DAY, PRN HYDROCODONE-ACETAMINOPHEN 04668974541 No Longer Active Prosper Arenas MD Active SIMVASTATIN 80 MG TABS 1/2 tablet daily SIMVASTATIN 61387447387 Active Prosper Arenas MD Active METOPROLOL TARTRATE 25 MG TABS 1/2 tablet twice a day METOPROLOL TARTRATE 22223981998 Active Prosper Arenas MD Active ASPIRIN 81 MG TAB 1 tablet by mouth daily ASPIRIN 48087124184 Active Prosper Arenas MD Active OMEPRAZOLE 20 MG CPDR 1 qd OMEPRAZOLE 25011863278 Active DARCIE Miller Active DOXYCYCLINE HYCLATE 100 MG CAPS take one capsule by mouth twice daily for ten days DOXYCYCLINE HYCLATE 84782584574 No Longer Active Mekhi Dukes MD Active DOXYCYCLINE HYCLATE 100 MG CAPS take one capsule by mouth twice daily for ten days DOXYCYCLINE HYCLATE 100 MG CAPS 2430730 DOXYCYCLINE HYCLATE Inactive HYDROCODONE-ACETAMINOPHEN 5-500 MG TABS [...] days 2014 ZITHROMAX Z-EDDIE 250 MG TABS 0628580 AZITHROMYCIN Inactive REVLIMID 25 MG CAPS one capsule daily for 21 days then off for 7 days 2014 REVLIMID 25 MG CAPS LENALIDOMIDE Inactive TRAZODONE HCL 50 MG TAB three tablets at bed time TRAZODONE HCL 50 MG TAB 656226 TRAZODONE HCL Inactive HALOPERIDOL 0.5 MG TABS one tablet three times a day HALOPERIDOL 0.5 MG TABS 819320 HALOPERIDOL Inactive BENZONATATE 200 MG CAPS 1 tab, 2-3 times a day BENZONATATE 200 MG CAPS 551973 BENZONATATE Inactive MECLIZINE HCL 25 MG TABS 1 daily needed for dizziness MECLIZINE HCL 25 MG TABS 758225 MECLIZINE HCL Inactive Immunizations Vaccine Administration Date [...] mg/dL Encounters Code Encounter Date Provider Facility CPT-88876 Level 4 Est. Patient 10:05:41 REPORT DEVELOPER [facility] CPT-56019 Level 3 Est. Patient 11:18:32 CDT [facility] CPT-64324 Level 4 Est. Patient 11:05:10 CDT [facility] CPT-22181 Level 3 Est. Patient 11:08:27 REPORT DEVELOPER Maliheh Ziglari [facility] CPT-36411 Level 4 Est. Patient 10:43:59 CDT Prosper Arenas MD [facility] CPT-93214 Level 3 Est. Patient 10:51:19 CDT Moy Garcia [facility] CPT-60917 Level 3 Est. Patient 10:20:31 CDT Moy Garcia [facility] CPT-75306 Level 3 Est. Patient 17:08:45 CDT Moy Garcia [facility] CPT-43658 Level 2 Est. Patient 13:54:36 CDT Augustina Mata NURSING SPECIALIST [facility] CPT-74462 Level 3 Est. Patient 12:00:42 CDT Prosper Arenas MD [facility] CPT-97285 Level 3 Est. Patient 09:57:28 REPORT DEVELOPER Moy Garcia [facility] CPT-93358 Level 3 Est. Patient 11:41:19 REPORT DEVELOPER Moy Garcia [facility] CPT-40858 Level 4 Est. Patient 17:07:35 REPORT DEVELOPER [facility] Level 5 Est. Patient 14:33:32 [facility] Level 3 Est. Patient 12:25:35 CDT Prosper Arenas MD [facility] Procedures Code Procedure Name Date Entry Date Standard Description CPT-000 Give Appropriate Flu Vaccine 10:13:55 REPORT DEVELOPER CPT-000 Give Immunizations Due 10:13:55 REPORT DEVELOPER CPT-71567 HGBA1C - LAB USE ONLY 09:42:47 REPORT DEVELOPER CPT-76571 TPSA - LAB USE ONLY 09:42:46 REPORT DEVELOPER CPT-60146 Venipuncture Draw Fee 09:42:46 REPORT DEVELOPER CPT-53517 Port a cath flush 13:33:18 REPORT DEVELOPER CPT-74079 First Vx - Ix admin for Medicare patients 10:42:57 REPORT DEVELOPER CPT-26833 Fluzone Preservative Free Intramuscular Suspension 10:42 :57 REPORT DEVELOPER CPT-G0438 Initial Annual Wellness Exam 10:13:55 REPORT DEVELOPER CPT-000 Give Appropriate Flu Vaccine 10:44:04 CDT CPT-000 Give Pneumovax 10:44:03 CDT CPT-32995 Port a cath flush 17:04:43 CDT CPT-30478 Prevnar 13 11:19:17 CDT CPT-07629 Fluzone Quadrivalent preservative free (>=3yrs.) 11:19: 17 CDT CPT-59059 Immunization Each Additional Inj 11:19:17 CDT CPT-18673 Immunization Single Admin 11:19:17 CDT CPT-09987 Port a cath flush 13:28:22 CDT CPT-TCMM Transitional Care Mgmt-Moderate 13:40:15 CDT CPT-G0008 Administration of Influenza Virus Vaccine 13:59:20 CDT CPT-55444 Fluzone High-Dose Intramuscular Suspension 13:59:20 CDT CPT-73842 Venipuncture Draw Fee 09:56:19 CDT CPT-OV Office Visit 15:46:10 CDT
--- OUTSIDE RECORDS SUMMARY | 2017-08-25 21:27 | XMS REPORT | Clinical Summary ---
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 mellitus 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, type [...] type II, uncontrolled 250.02 Active Maliheh Rodrigoglari HYBRID CAR MECHANIC Diabetes mellitus 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, type [...] with hyperglycemia 250.00 Active 03/21 Maliheh Ziglari HYBRID CAR MECHANIC Diabetes mellitus 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, type II or unspecified type, not stated as uncontrolled USP use of insulin treatment V58.67 Active Luxiheh Rodrigoglari HYBRID CAR MECHANIC Long-term (current) use of insulin Diabetes mellitus, type II with hypoglycemia 250.80 Active 07/22 Maliheh Ziglari HYBRID CAR MECHANIC Diabetes mellitus with other specified manifestations, type II or unspecified type, not stated as uncontrolled 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 Maliheh Ziglari HYBRID CAR MECHANIC Diabetes mellitus with renal manifestations, type II or unspecified type, not stated as uncontrolled Wellness exam V70.0 Active Dee Palmer APRN Routine general medical examination at a health care facility Fitting and adjustment of vascular catheter V58.81 Active 02/06 Dee Palmer APRN Encounter for fitting and adjustment of vascular catheter Unawareness of hypoglycemia in diabetes mellitus, type II 250.80 Active Maliheh Rodrigoglari HYBRID CAR MECHANIC Diabetes mellitus with other specified manifestations, type [...] specified as recurrent) Gastritis Inactive Maliheh Jose HYBRID CAR MECHANIC Unspecified gastritis and gastroduodenitis, 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 [...] twice daily, if needed for cough DEXTROMETHORPHAN-GUAIFENESIN 96080585688 Active Dee Palmer APRN Active PREDNISONE 20 MG ORAL TABLET 2 tabs daily for 4 days, 1 tab daily for 4 days, 1/2 tab daily for 4 days PREDNISONE 34208241107 Active Dee Palmer APRN Active ASPIRIN 81 MG ORAL TABLET 1 po qd ASPIRIN 78252704019 Active Dee Palmer APRN Active CALCIUM 500/D 500-200 MG-UNIT ORAL TABLET one tablet daily CALCIUM CARBONATE-VITAMIN D 13387317275 No Longer Active Dee Palmer APRN Active HYDROCODONE-ACETAMINOPHEN 7.5-325 MG ORAL TABLET 1-2 every 4-6 hrs prn 02/25 HYDROCODONE-ACETAMINOPHEN 42417563508 Active Marina Messina APRN Active ASPIRIN 81 MG ORAL TABLET 1 tablet by mouth daily ASPIRIN 98730635212 No Longer Active Marina Messina APRN Active SIMVASTATIN 80 MG ORAL TABLET 1/2 tablet daily SIMVASTATIN 18769003904 No Longer Active Mekhi Dukes MD Active OMEPRAZOLE 20 MG ORAL CAPSULE DELAYED RELEASE 1 qd OMEPRAZOLE 71519145970 No Longer Active Mekhi Dukes MD Active METOPROLOL TARTRATE 25 MG ORAL TABLET 1/2 tablet twice a day METOPROLOL TARTRATE 47024201250 No Longer Active Mekhi Dukes MD Active LISINOPRIL 5 MG ORAL TABLET 1 daily LISINOPRIL 03090850405 No Longer Active Mekhi Dkues MD Active NOVOLOG FLEXPEN 100 UNIT/ML SUBCUTANEOUS SOLUTION PEN-INJECTOR Take 8 units with each meal, add 1u/50 for blood sugars above 150. INSULIN ASPART 47280509108 Active Moy PARISH Active GABAPENTIN 300 MG ORAL CAPSULE 1 tab BID GABAPENTIN 45563744210 Active Tami Miller RN Active PREDNISONE 20 MG ORAL TABLET Take 2 daily for 3 days and then 1 daily for 3 days PREDNISONE 54241778675 No Longer Active Moy Wallaceglari JEM Active BENZONATATE 200 MG ORAL CAPSULE Take 1 tablet 3 times a day as needed for cough BENZONATATE 00310452666 No Longer Active Prosper Arenas MD Active HYDROCHLOROTHIAZIDE 25 MG ORAL TABLET 1 tablet by mouth daily HYDROCHLOROTHIAZIDE 69127866642 No Longer Active Prosper Arenas MD Active ACCU-CHEK JOANNA PLUS IN VITRO STRIP check blood sugars 5x a day, before each meal and bedtime and 15 minutes after treating a low blood. sugar GLUCOSE BLOOD 63971828251 Active Moy Wallaceglrex DURANTP Active LANTUS SOLOSTAR 100 UNIT/ML SUBCUTANEOUS SOLUTION PEN-INJECTOR Take 40 units at 7-8pm daily INSULIN GLARGINE 39634589499 Active Moy Wallaceglrex HYBRID CAR MECHANIC Active MECLIZINE HCL 25 MG ORAL TABLET 1 daily needed for dizziness 2015 MECLIZINE HCL 22086807910 No Longer Active Maliheh Ziglari HYBRID CAR MECHANIC Active BENZONATATE 200 MG ORAL CAPSULE 1 tab, 2-3 times a day BENZONATATE 02049487934 No Longer Active Maleh Ziglari HYBRID CAR MECHANIC Active HALOPERIDOL 0.5 MG ORAL TABLET one tablet three times a day HALOPERIDOL 52836237681 No Longer Active Maliheh Ziglari HYBRID CAR MECHANIC Active TRAZODONE HCL 50 MG ORAL TABLET three tablets at bed time TRAZODONE HCL 57417555266 No Longer [facility] HYBRID CAR MECHANIC Active REVLIMID 25 MG ORAL CAPSULE one capsule daily for 21 days then off for 7 days LENALIDOMIDE 09154868820 No Longer Active Maleh Ziglari HYBRID CAR MECHANIC Active ZITHROMAX Z-EDDIE 250 MG ORAL TABLET 2 today, then 1 daily for 4 days AZITHROMYCIN 49626025114 No Longer Active Augustina Rangelann TERMITE CONTROL REPRESENTATIVE Active NOVOLIN R RELION 100 UNIT/ML INJECTION SOLUTION 30- 40 units each meal sliding scale INSULIN REGULAR HUMAN 29348100380 No Longer Active [facility] Ziglari HYBRID CAR MECHANIC Active HYDROCODONE-ACETAMINOPHEN 5-500 MG ORAL TABLET 1-2 FOUR TIMES A DAY, PRN 2010 HYDROCODONE-ACETAMINOPHEN 95338174959 No Longer Active Prosper Arenas MD Active DOXYCYCLINE HYCLATE 100 MG ORAL CAPSULE take one capsule by mouth twice daily for ten days DOXYCYCLINE HYCLATE 93504478841 No Longer Active Mekhi Dukes MD Active DOXYCYCLINE HYCLATE 100 MG ORAL CAPSULE take one capsule by mouth twice daily for ten days DOXYCYCLINE HYCLATE 100 MG ORAL CAPSULE 2928197 DOXYCYCLINE HYCLATE Inactive HALOPERIDOL 0.5 MG ORAL TABLET one tablet three times a day HALOPERIDOL 0.5 MG ORAL TABLET 360782 HALOPERIDOL Inactive HYDROCHLOROTHIAZIDE 25 MG ORAL TABLET 1 tablet by mouth daily HYDROCHLOROTHIAZIDE 25 MG ORAL TABLET 160023 HYDROCHLOROTHIAZIDE Inactive PREDNISONE 20 MG ORAL TABLET Take 2 daily for 3 days and then 1 daily for 3 days PREDNISONE 20 MG ORAL TABLET 652052 PREDNISONE Inactive TRAZODONE HCL 50 MG ORAL TABLET three tablets at bed time TRAZODONE HCL 50 MG ORAL TABLET 368610 TRAZODONE HCL Inactive ASPIRIN 81 MG ORAL TABLET 1 tablet by mouth daily ASPIRIN 81 MG ORAL TABLET 367781 ASPIRIN Inactive LISINOPRIL 5 MG ORAL TABLET 1 daily LISINOPRIL 5 MG ORAL TABLET 170799 LISINOPRIL Inactive MECLIZINE HCL 25 MG ORAL TABLET 1 daily needed for dizziness 2015 MECLIZINE HCL 25 MG ORAL TABLET 670052 MECLIZINE HCL Inactive HYDROCODONE-ACETAMINOPHEN 5-500 MG ORAL TABLET 1-2 FOUR TIMES A DAY, PRN 2010 HYDROCODONE-ACETAMINOPHEN 5-500 MG ORAL TABLET 530865 HYDROCODONE-ACETAMINOPHEN Inactive SIMVASTATIN 80 MG ORAL TABLET 1/2 tablet daily SIMVASTATIN 80 MG ORAL TABLET 754372 SIMVASTATIN Inactive BENZONATATE 200 MG ORAL CAPSULE Take 1 tablet 3 times a day as needed for cough BENZONATATE 200 MG ORAL CAPSULE 340000 BENZONATATE Inactive BENZONATATE 200 MG ORAL CAPSULE 1 tab, 2-3 times a day BENZONATATE 200 MG ORAL CAPSULE 388491 BENZONATATE Inactive OMEPRAZOLE 20 MG ORAL CAPSULE DELAYED RELEASE 1 qd OMEPRAZOLE 20 MG ORAL CAPSULE DELAYED RELEASE 051030 OMEPRAZOLE Inactive ZITHROMAX Z-EDDIE 250 MG ORAL TABLET 2 today, then 1 daily for 4 days ZITHROMAX Z-EDDIE 250 MG ORAL TABLET 288210 AZITHROMYCIN Inactive CALCIUM 500/D 500-200 MG-UNIT ORAL TABLET one tablet daily CALCIUM 500/D 500-200 MG-UNIT ORAL TABLET CALCIUM CARBONATE-VITAMIN D Inactive METOPROLOL TARTRATE 25 MG ORAL TABLET 1/2 tablet twice a day METOPROLOL TARTRATE 25 MG ORAL TABLET 514024 METOPROLOL TARTRATE Inactive REVLIMID 25 MG ORAL [...] W/DIFF - Chemistry sodium, serum 137 mmol/L 791-538 8677/08/16 carbon dioxide, venous blood 26.3 mmol/L 21.0-32.0 [...] LABS - Chemistry cholesterol, serum 115 mg/dL 155-161 9815/08/18 triglyceride, serum, fasting 89 mg/dL 30-200 HDL cholesterol, serum 46 mg/dL 32-60 LDL cholesterol, serum 51 mg/dL 0-130 blood glucose 104 mg/dL 65-110 Lab Report: LIPID PANEL- REPOWER LAB - Chemistry cholesterol, serum 156 mg/dL 299-423 4639/02/20 HDL cholesterol, serum 52 mg/dL > OR=40 [...] mg/dL Encounters Code Encounter Date Provider Facility CPT-87413 Level 3 Est. Patient 14:09:25 ASSISTANT PROFESSOR OF PHILOSOPHY Dee Palmer [facility] CPT-01743 Level 3 Est. Patient 10:53:32 ASSISTANT PROFESSOR OF PHILOSOPHY Luxcarissashoaib Jose [facility] CPT-51983 Level 3 Est. Patient 17:11:55 ASSISTANT PROFESSOR OF PHILOSOPHY Ismael Gracia MD [facility] CPT-19351 Level 4 Est. Patient 16:29:19 CDT Mekhi Dukes MD [facility] CPT-10545 Level 3 New Patient 17:05:24 CDT Ismael Gracia MD [facility] CPT-48903 Level 2 Est. Patient 15:43:17 CDT Mekhi Dukes MD [facility] CPT-71427 Level 3 Est. Patient 09:30:37 CDT Moy Jose [facility]-24207 Level 3 Est. Patient 10:00:14 CDT Mekhi Dukes MD [facility] CPT-16490 Level 3 Est. [facility] 12:24[facility] [facility]-78736 Level 3 Est. Patient 14:34:57 CDT Prosper Arenas MD [facility] CPT-87672 Level 3 New Patient 15:44:53 ASSISTANT PROFESSOR OF PHILOSOPHY Mekhi Dukes MD [facility] CPT-98474 Level 3 Est. Patient 14:53:34 ASSISTANT PROFESSOR OF PHILOSOPHY Prosper Arenas MD [facility] CPT-65294 Level 4 Est. Patient 10:05:41 ASSISTANT PROFESSOR OF PHILOSOPHY Luxcarissashoaib Jose [facility] CPT-39131 Level 3 Est. Patient 11:18:32 CDT Moy Jose [facility] CPT-16192 Level 4 Est. Patient 11:05:[address] [facility] CPT-01167 Level 3 Est. Patient 11:08:27 ASSISTANT PROFESSOR OF PHILOSOPHY Luxpapo Garcia [facility] CPT-30202 Level 4 Est. Patient 10:43:59 CDT Prosper Arenas MD [facility] CPT-75734 Level 3 Est. Patient 10:51:19 CDT Moy Garcia [facility] CPT-62695 Level 3 Est. Patient 10:20:31 CDT Moy Garcia [facility] CPT-74076 Level 3 Est. Patient 17:08:45 CDT Luxshoaib Garcia [facility] CPT-76103 Level 2 Est. Patient 13:54:36 CDT Augustina Mata BESSY [facility] CPT-87951 Level 3 Est. Patient 12:00:42 CDT Prosper Arenas MD [facility] CPT-21805 Level 3 Est. Patient 09:57:28 ASSISTANT PROFESSOR OF PHILOSOPHY [facility]999 Level 3 Est. Patient 11:41:19 ASSISTANT PROFESSOR OF PHILOSOPHY [facility] CPT-49771 Level 4 Est. Patient 17:07:35 ASSISTANT PROFESSOR OF PHILOSOPHY [facility] CPT-85767 Level 5 Est. Patient 14:33:32 CDT [facility] CPT-86457 Level 3 Est. Patient 12:25:35 CDT Prosper Arenas MD [facility] Procedures Code Procedure Name Date Entry Date Standard Description CPT-12179 Chest, 2 views 14:17:20 ASSISTANT PROFESSOR OF PHILOSOPHY CPT-10031 Postop F/U Visit 14:44:45 ASSISTANT PROFESSOR OF PHILOSOPHY CPT-65734 Postop F/U Visit 17:20:20 ASSISTANT PROFESSOR OF PHILOSOPHY CPT-G0439 [facility] Annual Wellness Exam 08:39:41 ASSISTANT PROFESSOR OF PHILOSOPHY CPT-000 Give Appropriate Flu Vaccine 10:13:55 ASSISTANT PROFESSOR OF PHILOSOPHY CPT-000 Give Immunizations Due 10:13:55 ASSISTANT PROFESSOR OF PHILOSOPHY CPT-39732 HGBA1C - LAB USE ONLY 09:42:47 ASSISTANT PROFESSOR OF PHILOSOPHY CPT-47649 TPSA - LAB USE ONLY 09:42:46 ASSISTANT PROFESSOR OF PHILOSOPHY CPT-01572 Venipuncture Draw Fee 09:42:46 ASSISTANT PROFESSOR OF PHILOSOPHY CPT-70512 Port a cath flush 13:33:18 ASSISTANT PROFESSOR OF PHILOSOPHY CPT-41004 First Vx - Ix admin for Medicare patients 10:42:57 ASSISTANT PROFESSOR OF PHILOSOPHY CPT-09956 Fluzone Preservative Free Intramuscular Suspension 10:42 :57 ASSISTANT PROFESSOR OF PHILOSOPHY CPT-G0438 Initial Annual Wellness Exam 10:13:55 ASSISTANT PROFESSOR OF PHILOSOPHY CPT-000 Give Appropriate Flu Vaccine 10:44:04 CDT CPT-000 Give Pneumovax 10:44:03 CDT CPT-00333 Port a cath flush 17:04:43 CDT CPT-83188 Prevnar 13 11:19:17 CDT CPT-39556 Fluzone Quadrivalent preservative free (>=3yrs.) 11:19: 17 CDT CPT-11616 Immunization Each Additional Inj 11:19:17 CDT CPT-57570 Immunization Single Admin 11:19:17 CDT CPT-26851 Port a cath flush 13:28:22 CDT CPT-TCMM Transitional Care Mgmt-Moderate 13:40:15 CDT CPT-G0008 Administration of Influenza Virus Vaccine 13:59:20 CDT CPT-55875 Fluzone High-Dose Intramuscular Suspension 13:59:20 CDT CPT-79253 Venipuncture Draw Fee 09:56:19 CDT CPT-OV Office Visit 15:46:10 CDT
--- OUTSIDE RECORDS SUMMARY | 2017-08-25 21:27 | XMS REPORT | Clinical Summary ---
Author Author Admin, IWONA Organization [employer] Address Unknown Phone Unavailable Allergies, Adverse Reactions, Alerts Allergy Name Reaction Description Start Date Severity Status Provider ERYTHROMYCIN Stomach cramps Moderate Active Prosper Arenas MD CODEINE Critical Active Maliheh Ziglari SPLITTER MACHINE DARVOCET Critical Active Maliheh Ziglari SPLITTER MACHINE LEVAQUIN Critical Active Maliheh Ziglari SPLITTER MACHINE Conditions or Problems Problem Name Problem Code [...] type II, uncontrolled 250.02 Active Maliheh Ziglari SPLITTER MACHINE Diabetes mellitus 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, type [...] with hyperglycemia 250.00 Active 03/21 Maliheh Ziglari SPLITTER MACHINE Diabetes mellitus 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, type II or unspecified type, not stated as uncontrolled 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 V58.67 Active Luxiheh Rodrigoglari SPLITTER MACHINE Long-term (current) use of insulin Diabetes mellitus, type II with hypoglycemia 250.80 Active 07/22 Maliheh Ziglari SPLITTER MACHINE Diabetes mellitus with other specified manifestations, type II or unspecified type, not stated as uncontrolled 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 Maliheh Ziglari SPLITTER MACHINE Diabetes mellitus with renal manifestations, type II or unspecified type, not stated as uncontrolled Wellness exam V70.0 Active Dee Palmer APRN Routine general medical examination at a health care facility Fitting and adjustment of vascular catheter V58.81 Active 02/06 Dee Palmer APRN Encounter for fitting and adjustment of vascular catheter Unawareness of hypoglycemia in diabetes mellitus, type II 250.80 Active Maliheh Ziglari SPLITTER MACHINE Diabetes mellitus with other specified manifestations, type [...] then 1 daily for 3 days PREDNISONE 87521795077 No Longer Active Moy Wallaceglrex DURANTP Active BENZONATATE 200 MG CAPS Take 1 tablet 3 times a day as needed for cough 07/29 BENZONATATE 07268166840 No Longer Active Prosper Arenas MD Active HYDROCHLOROTHIAZIDE 25 MG TABS 1 tablet by mouth daily HYDROCHLOROTHIAZIDE 47352175127 No Longer Active Prosper Arenas MD Active ACCU-CHEK JOANNA PLUS STRP check blood sugars 5x a day, before each meal and bedtime and 15 minutes after treating a low blood. sugar GLUCOSE BLOOD 83771380518 Active Maliheh Ziglari SPLITTER MACHINE Active NOVOLOG FLEXPEN 100 UNIT/ML SOPN Take 25 units with each meal, add 1u/50 for blood sugars above 150. INSULIN ASPART 52362612193 Active Maliheh Ziglari SPLITTER MACHINE Active LANTUS SOLOSTAR 100 UNIT/ML SOLN Take 40 units at 7-8pm daily INSULIN GLARGINE 35987228835 [facility]igl[facility] SPLITTER MACHINE Active MECLIZINE HCL 25 MG TABS 1 daily needed for dizziness MECLIZINE HCL 73911925355 No Longer Active Maleh Ziglari SPLITTER MACHINE Active BENZONATATE 200 MG CAPS 1 tab, 2-3 times a day BENZONATATE 54824851133 No Longer [facility] Ziglari SPLITTER MACHINE Active HALOPERIDOL 0.5 MG TABS one tablet three times a day HALOPERIDOL 23421574466 No Longer [facility] Ziglari SPLITTER MACHINE Active TRAZODONE HCL 50 MG TAB three tablets at bed time TRAZODONE HCL 17869458457 No Longer Active [facility] Ziglari SPLITTER MACHINE Active REVLIMID 25 MG CAPS one capsule daily for 21 days then off for 7 days 2014 LENALIDOMIDE 44067998944 No Longer Active [facility] Ziglari SPLITTER MACHINE Active ZITHROMAX Z-EDDIE 250 MG TABS 2 today, then 1 daily for 4 days 2014 AZITHROMYCIN 57611632990 No Longer Active Augustina Rangelann DOHERTY Active NOVOLIN R RELION 100 UNIT/ML INJ SOLN 30- 40 units each meal sliding scale INSULIN REGULAR HUMAN 96535311620 No Longer Active [facility] Rodrigoglari SPLITTER MACHINE Active LISINOPRIL 5 MG TABS 1 daily LISINOPRIL 90718637058 Active Prosper Arenas MD Active CALCIUM 500/D 500-200 MG-UNIT TABS one tablet daily CALCIUM CARBONATE- VITAMIN D 12054277172 Active Prosper Arenas MD Active HYDROCODONE-ACETAMINOPHEN 5-500 MG TABS 1-2 FOUR TIMES A DAY, PRN HYDROCODONE-ACETAMINOPHEN 11522947570 No Longer Active Prosper Arenas MD Active SIMVASTATIN 80 MG TABS 1/2 tablet daily SIMVASTATIN 00984708682 Active Prosper Arenas MD Active METOPROLOL TARTRATE 25 MG TABS 1/2 tablet twice a day METOPROLOL TARTRATE 58609599418 Active Prosper Arenas MD Active ASPIRIN 81 MG TAB 1 tablet by mouth daily ASPIRIN 59650892118 Active Prosper Arenas MD Active OMEPRAZOLE 20 MG CPDR 1 qd OMEPRAZOLE 94743849907 Active DARCIE Miller Active DOXYCYCLINE HYCLATE 100 MG CAPS take one capsule by mouth twice daily for ten days DOXYCYCLINE HYCLATE 24646897260 No Longer Active Mekhi uDkes MD Active DOXYCYCLINE HYCLATE 100 MG CAPS take one capsule by mouth twice daily for ten days DOXYCYCLINE HYCLATE 100 MG CAPS 9963938 DOXYCYCLINE HYCLATE Inactive HYDROCODONE-ACETAMINOPHEN 5-500 MG TABS [...] days 2014 ZITHROMAX Z-EDDIE 250 MG TABS 8823507 AZITHROMYCIN Inactive REVLIMID 25 MG CAPS one capsule daily for 21 days then off for 7 days 2014 REVLIMID 25 MG CAPS LENALIDOMIDE Inactive TRAZODONE HCL 50 MG TAB three tablets at bed time TRAZODONE HCL 50 MG TAB 784473 TRAZODONE HCL Inactive HALOPERIDOL 0.5 MG TABS one tablet three times a day HALOPERIDOL 0.5 MG TABS 803223 HALOPERIDOL Inactive BENZONATATE 200 MG CAPS 1 tab, 2-3 times a day BENZONATATE 200 MG CAPS 874282 BENZONATATE Inactive MECLIZINE HCL 25 MG TABS 1 daily needed for dizziness MECLIZINE HCL 25 MG TABS 834971 MECLIZINE HCL Inactive HYDROCHLOROTHIAZIDE 25 MG TABS 1 tablet by mouth daily HYDROCHLOROTHIAZIDE 25 MG TABS 667452 HYDROCHLOROTHIAZIDE Inactive PREDNISONE 20 MG TABS Take 2 daily for 3 days and then 1 daily for 3 days PREDNISONE 20 MG TABS 009029 PREDNISONE Inactive BENZONATATE 200 MG CAPS Take 1 tablet 3 times a day as needed for cough 07/29 BENZONATATE 200 MG CAPS 862349 BENZONATATE Inactive Immunizations Vaccine Administration Date Value [...] W/DIFF - Chemistry sodium, serum 137 mmol/L 549-940 8949/08/16 carbon dioxide, venous blood 26.3 mmol/L 21.0-32.0 [...] LAB - Chemistry cholesterol, serum 156 mg/dL 151-622 4532/02/20 HDL cholesterol, serum 52 mg/dL > OR=40 [...] mg/dL Encounters Code Encounter Date Provider Facility CPT-62353 Level 3 Est. Patient 10:00:14 CDT Mekhi Dukes MD [facility] CPT-11640 Level 3 Est. Patient 12:24:09 [facility] Level 3 Est. Patient 14:34:57 CDT Prosper Arenas MD [facility] CPT-53902 Level 3 New Patient 15:44:53 LENS POLISHER HAND Mekhi Dukes MD [facility] CPT-62929 Level 3 Est. Patient 14:53:34 LENS POLISHER HAND Prosper Arenas MD [facility] CPT-75274 Level 4 Est. Patient 10:05:41 LENS POLISHER HAND [facility] CPT-53380 Level 3 Est. Patient 11:18:32 CDT [facility]-05374 Level 4 Est. Patient 11:05:10 CDT [facility] CPT-12321 Level 3 Est. Patient 11:08:27 LENS POLISHER HAND Moy Garcia [facility] CPT-14046 Level 4 Est. Patient 10:43:59 CDT Prosper Arenas MD [facility] CPT-98550 Level 3 Est. Patient 10:51:[address] [facility] CPT-93131 Level 3 Est. Patient 10:20:[address] [facility] CPT-00363 Level 3 Est. Patient 17:08:[address] [facility] CPT-22331 Level 2 Est. Patient 13:54:36 CDT Augustina Mata [facility] [facility] CPT-42717 Level 3 Est. Patient 12:00:42 CDT Prosper Arenas MD [facility] CPT-20631 Level 3 Est. Patient 09:57:28 LENS POLISHER HAND Moy Garcia [facility] CPT-96251 Level 3 Est. Patient 11:41:19 LENS POLISHER HAND [facility] Level 4 Est. Patient 17:07:35 LENS POLISHER HAND [facility] CPT-09075 Level 5 Est. Patient 14:33:[address] [facility] CPT-79405 Level 3 Est. Patient 12:25:35 CDT Prosper Arenas MD [facility] Procedures Code Procedure Name Date Entry Date Standard Description CPT-000 Give Appropriate Flu Vaccine 10:13:55 LENS POLISHER HAND CPT-000 Give Immunizations Due 10:13:55 LENS POLISHER HAND CPT-87101 HGBA1C - LAB USE ONLY 09:42:47 LENS POLISHER HAND CPT-72299 TPSA - LAB USE ONLY 09:42:46 LENS POLISHER HAND CPT-25323 Venipuncture Draw Fee 09:42:46 LENS POLISHER HAND CPT-40068 Port a cath flush 13:33:18 LENS POLISHER HAND CPT-65730 First Vx - Ix admin for Medicare patients 10:42:57 LENS POLISHER HAND CPT-94696 Fluzone Preservative Free Intramuscular Suspension 10:42 :57 LENS POLISHER HAND CPT-G0438 Initial Annual Wellness Exam 10:13:55 LENS POLISHER HAND CPT-000 Give Appropriate Flu Vaccine 10:44:04 CDT CPT-000 Give Pneumovax 10:44:03 CDT CPT-52971 Port a cath flush 17:04:43 CDT CPT-93670 Prevnar 13 11:19:17 CDT CPT-38403 Fluzone Quadrivalent preservative free (>=3yrs.) 11:19: 17 CDT CPT-55957 Immunization Each Additional Inj 11:19:17 CDT CPT-65219 Immunization Single Admin 11:19:17 CDT CPT-31858 Port a cath flush 13:28:22 CDT CPT-TCMM Transitional Care Mgmt-Moderate 13:40:15 CDT CPT-G0008 Administration of Influenza Virus Vaccine 13:59:20 CDT CPT-91467 Fluzone High-Dose Intramuscular Suspension 13:59:20 CDT CPT-07784 Venipuncture Draw Fee 09:56:19 CDT CPT-OV Office Visit 15:46:10 CDT
--- OUTSIDE RECORDS SUMMARY | 2017-08-25 21:28 | XMS REPORT | Clinical Summary ---
Author Author Admin, IWONA Organization [facility] Address Unknown Phone Unavailable Allergies, Adverse Reactions, Alerts Allergy Name Reaction Description Start Date Severity Status Provider ERYTHROMYCIN Stomach cramps Moderate Active Prosper Arenas MD CODEINE Critical Active Maliheh Ziglari TRIPOLER DARVOCET Critical Active Maliheh Ziglari TRIPOLER LEVAQUIN Critical Active Maliheh Ziglari TRIPOLER Conditions or Problems Problem Name Problem Code [...] type II, uncontrolled 250.02 Active Maliheh Ziglari TRIPOLER Diabetes mellitus 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, type [...] 1 daily for 4 days 2014 AZITHROMYCIN 06986879657 No Longer Active Augustina Rangelann MARIEN Active BENZONATATE 200 MG CAPS 1 tab, 2-3 times a day BENZONATATE 73109386569 Active Prosper Arenas MD Active NOVOLOG FLEXPEN 100 UNIT/ML SOPN Take 10 units with each meal, add 2u/50 for blood sugars above 150 INSULIN ASPART 68072567386 Active Malpapo Ziglari TRIPOLER Active LANTUS SOLOSTAR 100 UNIT/ML SOLN 30 units at 4-5pm daily INSULIN GLARGINE 87371914941 Active Maliheh Ziglari TRIPOLER Active NOVOLIN R RELION 100 UNIT/ML INJ SOLN 30- 40 units each meal sliding scale INSULIN REGULAR HUMAN 03683935999 No Longer Active Malcarissashoaib Wallaceglari TRIPOLER Active LISINOPRIL 5 MG TABS 1 daily LISINOPRIL 03658140336 Active Prosper Arenas MD Active CALCIUM 500/D 500-200 MG-UNIT TABS one tablet daily CALCIUM CARBONATE- VITAMIN D 83199919427 Active Prosper Arenas MD Active REVLIMID 25 MG CAPS one capsule daily for 21 days then off for 7 days LENALIDOMIDE 18571896291 Active Prosper Arenas MD Active HYDROCHLOROTHIAZIDE 25 MG TABS 1 tablet by mouth daily HYDROCHLOROTHIAZIDE 93349178153 Active Prosper Arenas MD Active HYDROCODONE-ACETAMINOPHEN 5-500 MG TABS 1-2 FOUR TIMES A DAY, PRN HYDROCODONE-ACETAMINOPHEN 27089718749 No Longer Active Prosper Arenas MD Active TRAZODONE HCL 50 MG TAB three tablets at bed time TRAZODONE HCL 17638840439 Active Prosper Arenas MD Active SIMVASTATIN 80 MG TABS 1/2 tablet daily SIMVASTATIN 97424804944 Active Prosper Arenas MD Active METOPROLOL TARTRATE 25 MG TABS 1/2 tablet twice a day METOPROLOL TARTRATE 99505966894 Active Prosper Arenas MD Active HALOPERIDOL 0.5 MG TABS one tablet three times a day HALOPERIDOL 75106047489 Active Prosper Arenas MD Active ASPIRIN 81 MG TAB 1 tablet by mouth daily ASPIRIN 28463692642 Active Prosper Arenas MD Active OMEPRAZOLE 20 MG CPDR 1 qd OMEPRAZOLE 22925192116 Active DARCIE Miller Active DOXYCYCLINE HYCLATE 100 MG CAPS take one capsule by mouth twice daily for ten days DOXYCYCLINE HYCLATE 01560809363 No Longer Active Mekhi Dukes MD Active DOXYCYCLINE HYCLATE 100 MG CAPS take one capsule by mouth twice daily for ten days DOXYCYCLINE HYCLATE 100 MG CAPS 172286 DOXYCYCLINE HYCLATE Inactive HYDROCODONE-ACETAMINOPHEN 5-500 MG TABS [...] days 2014 ZITHROMAX Z-EDDIE 250 MG TABS 7079521 AZITHROMYCIN Inactive Immunizations Vaccine Administration Date Value [...] pressure, diastolic - 8462-4 60 mm[Hg] BP cahvez blood pressure, systolic - 8480-6 112 mm[Hg] [...] Description Chart Maintenance: Outside labs entered on [employer] - Chemistry sodium, serum 134 mmol/L potassium, serum 3.4 mmol/L blood glucose 268 mg/dL creatinine, serum 1.87 mg/dL aspartate aminotransferase (SGOT), serum 26 U/L alanine aminotransferase (SGPT), serum 44 U/L alkaline phosphatase, serum 110 U/L Chart Maintenance: Outside labs entered on [email or web address] - Hematology leukocyte count, blood 5.3 10*3/mm3 hemoglobin, blood 14.0 g/dL platelet count 240 10*3/mm3 Lab Report: Basic Metabolic Panel - Chemistry sodium, serum 137 mmol/L 998-106 3842/08/22 potassium, serum 4.0 mmol/L 3.5-5.2 chloride, serum 100 mmol/L 98-107 carbon dioxide, venous blood 27.9 mmol/L 21.0-32.0 blood glucose 109 mg/dL 65-110 calcium, serum 9.0 mg/dL 8.5-10.1 urea nitrogen, blood 15 mg/dL 7-18 creatinine, serum 2.00 mg/dL 0.60-1.30 Lab Report: Basic Metabolic Panel, HGBA1C - Chemistry sodium, serum 134 mmol/L 088-893 0430/01/27 potassium, serum 4.1 mmol/L 3.5-5.2 chloride, serum 96 mmol/L 98-107 carbon dioxide, venous blood 35.1 mmol/L 21.0-32.0 blood glucose 346 mg/dL 65-110 calcium, serum 8.4 mg/dL 8.5-10.1 urea nitrogen, blood 18 mg/dL 7-18 creatinine, serum 2.00 mg/dL 0.60-1.30 hemoglobin A1C, blood, as % of total hemoglobin 8.4 % 4.3-6.0 Lab Report: CBC W/DIFF, Comp. Metabolic Panel - Chemistry sodium, serum 137 mmol/L 715-879 1673/01/21 potassium, serum 4.1 mmol/L 3.5-5.2 chloride, serum 99 mmol/L 98-107 carbon dioxide, venous blood 30.9 mmol/L 21.0-32.0 blood glucose 303 mg/dL 65-110 urea nitrogen, blood 19 mg/dL 7-18 creatinine, serum 2.00 mg/dL 0.60-1.30 alanine aminotransferase (SGPT), serum 84 U/L 12-78 aspartate aminotransferase (SGOT), serum 41 U/L 15-37 calcium, serum 7.8 mg/dL 8.5-10.1 bilirubin, serum, total 0.50 mg/dL 0.00-1.00 sodium, serum 131 mmol/L 250-033 1279/03/18 potassium, serum 4.4 mmol/L 3.5-5.2 chloride, serum 95 mmol/L 98-107 carbon dioxide, venous blood 19.0 mmol/L 21.0-32.0 blood glucose 297 mg/dL 65-110 urea nitrogen, blood 19 mg/dL 7-18 creatinine, serum 1.70 mg/dL 0.60-1.30 alanine aminotransferase (SGPT), serum 184 U/L 12-78 aspartate aminotransferase (SGOT), serum 177 U/L 15-37 calcium, serum 7.8 mg/dL 8.5-10.1 bilirubin, serum, total 0.50 mg/dL 0.00-1.00 sodium, serum 135 mmol/L 703-995 0952/11/26 potassium, serum 4.4 mmol/L 3.5-5.2 chloride, serum [...] % 11.6-14.8 platelet count 172 10^3/MM^3 10*3/mm3 559-283 7861/01/21 leukocyte count, blood 6.3 10^3/MM^3 10*3/mm3 4.6-10.2 [...] % 11.6-14.8 platelet count 137 10^3/MM^3 10*3/mm3 297-513 0742/03/18 leukocyte count, blood 4.8 10^3/MM^3 10*3/mm3 4.6-10.2 [...] Ag - Chemistry sodium, serum 131 mmol/L 057-035 5970/10/13 potassium, serum 3.6 mmol/L 3.5-5.2 chloride, serum [...] 0.60 mg/dL 0.00-1.00 cholesterol, serum 98 mg/dL 232-208 7950/10/13 triglyceride, serum, fasting 125 mg/dL 30-200 HDL [...] mg/dL Encounters Code Encounter Date Provider Facility CPT-85933 Level 2 Est. Patient 13:54:36 CDT Augustina Mata APRN [facility] CPT-46398 Level 3 Est. Patient 12:00:42 CDT Prosper Arenas MD [facility] CPT-69576 Level 3 Est. Patient 09:57:28 BEVERAGE SPECIALIST [facility] CPT-09779 Level 3 Est. Patient 11:41:19 BEVERAGE SPECIALIST [facility] CPT-80078 Level 4 Est. Patient 17:07:35 BEVERAGE SPECIALIST [facility] CPT-35345 Level 5 Est. Patient 14:33:32 CDT [facility] CPT-45968 Level 3 Est. Patient 12:25:35 CDT Prosper Arenas MD [facility] Procedures Code Procedure Name Date Entry Date Standard Description CPT-TCMM Transitional Care Mgmt-Moderate 13:40:15 CDT CPT-G0008 Administration of Influenza Virus Vaccine 13:59:20 CDT CPT-19305 Fluzone High-Dose Intramuscular Suspension 13:59:20 CDT CPT-27409 Venipuncture Draw Fee 09:56:19 CDT CPT-OV Office Visit 15:46:10 CDT
--- OUTSIDE RECORDS SUMMARY | 2017-08-25 21:29 | XMS REPORT | Clinical Summary ---
Author Author Admin, IWONA Organization [employer] Address Unknown Phone Unavailable Allergies, Adverse Reactions, Alerts Allergy Name Reaction Description Start Date Severity Status Provider ERYTHROMYCIN Stomach cramps Moderate Active Prosper Arenas MD CODEINE Critical Active Maliheh Ziglari PRINCIPAL RESEARCH ECONOMIST DARVOCET Critical Active Maliheh Ziglari PRINCIPAL RESEARCH ECONOMIST LEVAQUIN Critical Active Maliheh Ziglari PRINCIPAL RESEARCH ECONOMIST Conditions or Problems Problem Name Problem Code [...] type II, uncontrolled 250.02 Active Maliheh Ziglari PRINCIPAL RESEARCH ECONOMIST Diabetes mellitus 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, type [...] with hyperglycemia 250.00 Active 03/21 Maliheh Ziglari PRINCIPAL RESEARCH ECONOMIST Diabetes mellitus 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, type II or unspecified type, not stated as uncontrolled MCC use of insulin treatment V58.67 Active Maliheh Ziglari PRINCIPAL RESEARCH ECONOMIST Long-term (current) use of insulin Diabetes mellitus, type II with hypoglycemia 250.80 Active 07/22 Maliheh Ziglari PRINCIPAL RESEARCH ECONOMIST Diabetes mellitus with other specified manifestations, type II or unspecified type, not stated as uncontrolled 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 Maliheh Ziglari PRINCIPAL RESEARCH ECONOMIST Diabetes mellitus with renal manifestations, type II or unspecified type, not stated as uncontrolled Wellness exam V70.0 Active Dee Palmer APRN Routine general medical examination at a health care facility Fitting and adjustment of vascular catheter V58.81 Active 02/06 Dee Palmer APRN Encounter for fitting and adjustment of vascular catheter Unawareness of hypoglycemia in diabetes mellitus, type II 250.80 Active Maliheh Ziglari PRINCIPAL RESEARCH ECONOMIST Diabetes mellitus with other specified manifestations, type [...] then 1 daily for 3 days PREDNISONE 42049121886 No Longer Active Moy PARISH Active BENZONATATE 200 MG CAPS Take 1 tablet 3 times a day as needed for cough 07/29 BENZONATATE 81556059217 No Longer Active Prosper Arenas MD Active HYDROCHLOROTHIAZIDE 25 MG TABS 1 tablet by mouth daily HYDROCHLOROTHIAZIDE 30234585580 No Longer Active Prosper Arenas MD Active ACCU-CHEK JOANNA PLUS STRP check blood sugars 5x a day, before each meal and bedtime and 15 minutes after treating a low blood. sugar GLUCOSE BLOOD 82065328025 Active Malpapo Wallaceglari PRINCIPAL RESEARCH ECONOMIST Active NOVOLOG FLEXPEN 100 UNIT/ML SOPN Take 25 units with each meal, add 1u/50 for blood sugars above 150. INSULIN ASPART 57092191737 Active Malpapo Wallaceglari PRINCIPAL RESEARCH ECONOMIST Active LANTUS SOLOSTAR 100 UNIT/ML SOLN Take 40 units at 7-8pm daily INSULIN GLARGINE 59466138028 [facility] PRINCIPAL RESEARCH ECONOMIST Active MECLIZINE HCL 25 MG TABS 1 daily needed for dizziness MECLIZINE HCL 41623761604 No Longer Active Maleh Ziglari PRINCIPAL RESEARCH ECONOMIST Active BENZONATATE 200 MG CAPS 1 tab, 2-3 times a day BENZONATATE 20791325680 No Longer [facility] Zigl[facility] PRINCIPAL RESEARCH ECONOMIST Active HALOPERIDOL 0.5 MG TABS one tablet three times a day HALOPERIDOL 46104153435 No Longer [facility] Ziglari PRINCIPAL RESEARCH ECONOMIST Active TRAZODONE HCL 50 MG TAB three tablets at bed time TRAZODONE HCL 30307895211 No Longer Active [facility] Ziglari PRINCIPAL RESEARCH ECONOMIST Active REVLIMID 25 MG CAPS one capsule daily for 21 days then off for 7 days 2014 LENALIDOMIDE 64199190432 No Longer Active [facility] Ziglari PRINCIPAL RESEARCH ECONOMIST Active ZITHROMAX Z-EDDIE 250 MG TABS 2 today, then 1 daily for 4 days 2014 AZITHROMYCIN 27756350756 No Longer Active Augustina Mata BESSY Active NOVOLIN R RELION 100 UNIT/ML INJ SOLN 30- 40 units each meal sliding scale INSULIN REGULAR HUMAN 76948873662 No Longer Active [facility] Rodrigoglari PRINCIPAL RESEARCH ECONOMIST Active LISINOPRIL 5 MG TABS 1 daily LISINOPRIL 89057143372 Active Prosper Arenas MD Active CALCIUM 500/D 500-200 MG-UNIT TABS one tablet daily CALCIUM CARBONATE- VITAMIN D 35532210712 Active Prosper Arenas MD Active HYDROCODONE-ACETAMINOPHEN 5-500 MG TABS 1-2 FOUR TIMES A DAY, PRN HYDROCODONE-ACETAMINOPHEN 81516657526 No Longer Active Prosper Arenas MD Active SIMVASTATIN 80 MG TABS 1/2 tablet daily SIMVASTATIN 11394134741 Active Prosper Arenas MD Active METOPROLOL TARTRATE 25 MG TABS 1/2 tablet twice a day METOPROLOL TARTRATE 25192359712 Active Prosper Arenas MD Active ASPIRIN 81 MG TAB 1 tablet by mouth daily ASPIRIN 97578596116 Active Prosper Arenas MD Active OMEPRAZOLE 20 MG CPDR 1 qd OMEPRAZOLE 46237442935 Active DARCIE Miller Active DOXYCYCLINE HYCLATE 100 MG CAPS take one capsule by mouth twice daily for ten days DOXYCYCLINE HYCLATE 99485902808 No Longer Active Mekhi Dukes MD Active DOXYCYCLINE HYCLATE 100 MG CAPS take one capsule by mouth twice daily for ten days DOXYCYCLINE HYCLATE 100 MG CAPS 3703621 DOXYCYCLINE HYCLATE Inactive HYDROCODONE-ACETAMINOPHEN 5-500 MG TABS [...] days 2014 ZITHROMAX Z-EDDIE 250 MG TABS 4752722 AZITHROMYCIN Inactive REVLIMID 25 MG CAPS one capsule daily for 21 days then off for 7 days 2014 REVLIMID 25 MG CAPS LENALIDOMIDE Inactive TRAZODONE HCL 50 MG TAB three tablets at bed time TRAZODONE HCL 50 MG TAB 512329 TRAZODONE HCL Inactive HALOPERIDOL 0.5 MG TABS one tablet three times a day HALOPERIDOL 0.5 MG TABS 686844 HALOPERIDOL Inactive BENZONATATE 200 MG CAPS 1 tab, 2-3 times a day BENZONATATE 200 MG CAPS 787526 BENZONATATE Inactive MECLIZINE HCL 25 MG TABS 1 daily needed for dizziness MECLIZINE HCL 25 MG TABS 060999 MECLIZINE HCL Inactive HYDROCHLOROTHIAZIDE 25 MG TABS 1 tablet by mouth daily HYDROCHLOROTHIAZIDE 25 MG TABS 453817 HYDROCHLOROTHIAZIDE Inactive PREDNISONE 20 MG TABS Take 2 daily for 3 days and then 1 daily for 3 days PREDNISONE 20 MG TABS 211171 PREDNISONE Inactive BENZONATATE 200 MG CAPS Take 1 tablet 3 times a day as needed for cough 07/29 BENZONATATE 200 MG CAPS 339112 BENZONATATE Inactive Immunizations Vaccine Administration Date Value [...] LAB - Chemistry cholesterol, serum 156 mg/dL 728-947 0031/02/20 HDL cholesterol, serum 52 mg/dL > OR=40 [...] mg/dL Encounters Code Encounter Date Provider Facility CPT-15869 Level 3 Est. Patient 12:24:09 CDT Moy Garcia [facility] CPT-49277 Level 3 Est. Patient 14:34:57 CDT Prosper Arenas MD [facility] CPT-13094 Level 3 New Patient 15:44:53 DATA PROCESSING CONTROL CLERK Mekhi Dukes MD [facility] CPT-27335 Level 3 Est. Patient 14:53:34 DATA PROCESSING CONTROL CLERK Prosper Arenas MD [facility] CPT-45232 Level 4 Est. Patient 10:05:41 DATA PROCESSING CONTROL CLERK [facility] Level 3 Est. Patient 11:18:32 CDT Moy Garcia [facility] CPT-25428 Level 4 Est. Patient 11:05:10 CDT Moy Garcia [facility] CPT-20941 Level 3 Est. Patient 11:08:27 DATA PROCESSING CONTROL CLERK Moy Garcia [facility] CPT-12308 Level 4 Est. Patient 10:43:59 CDT Prosper Arenas MD [facility] CPT-95716 Level 3 Est. Patient 10:51:19 CDT Moy Garcia [facility] CPT-54075 Level 3 Est. [facility] 10:20:[facility] CPT-10435 Level 3 Est. [facility]:08[facility]-6[facility] Level 2 Est. Patient 13:54:36 CDT Augustina Mata APRN [facility] CPT-41029 Level 3 Est. Patient 12:00:42 CDT Prosper Arenas MD [facility] CPT-65830 Level 3 Est. Patient 09:57:28 DATA PROCESSING CONTROL CLERK Moy Garcia [facility] CPT-74996 Level 3 Est. Patient 11:41:19 DATA PROCESSING CONTROL CLERK Moy Garcia [facility] CPT-44767 Level 4 Est. Patient 17:07:35 DATA PROCESSING CONTROL CLERK Moy Garcia [facility] CPT-43734 Level 5 Est. Patient 14:33:32 [facility] CPT-04575 Level 3 Est. Patient 12:25:35 CDT Prosper Arenas MD [facility] Procedures Code Procedure Name Date Entry Date Standard Description CPT-000 Give Appropriate Flu Vaccine 10:13:55 DATA PROCESSING CONTROL CLERK CPT-000 Give Immunizations Due 10:13:55 DATA PROCESSING CONTROL CLERK CPT-18109 HGBA1C - LAB USE ONLY 09:42:47 DATA PROCESSING CONTROL CLERK CPT-35011 TPSA - LAB USE ONLY 09:42:46 DATA PROCESSING CONTROL CLERK CPT-89317 Venipuncture Draw Fee 09:42:46 DATA PROCESSING CONTROL CLERK CPT-54894 Port a cath flush 13:33:18 DATA PROCESSING CONTROL CLERK CPT-70985 First Vx - Ix admin for Medicare patients 10:42:57 DATA PROCESSING CONTROL CLERK CPT-81108 Fluzone Preservative Free Intramuscular Suspension 10:42 :57 DATA PROCESSING CONTROL CLERK CPT-G0438 Initial Annual Wellness Exam 10:13:55 DATA PROCESSING CONTROL CLERK CPT-000 Give Appropriate Flu Vaccine 10:44:04 CDT CPT-000 Give Pneumovax 10:44:03 CDT CPT-23546 Port a cath flush 17:04:43 CDT CPT-27176 Prevnar 13 11:19:17 CDT CPT-87982 Fluzone Quadrivalent preservative free (>=3yrs.) 11:19: 17 CDT CPT-64351 Immunization Each Additional Inj 11:19:17 CDT CPT-35047 Immunization Single Admin 11:19:17 CDT CPT-55304 Port a cath flush 13:28:22 CDT CPT-TCMM Transitional Care Mgmt-Moderate 13:40:15 CDT CPT-G0008 Administration of Influenza Virus Vaccine 13:59:20 CDT CPT-12888 Fluzone High-Dose Intramuscular Suspension 13:59:20 CDT CPT-15823 Venipuncture Draw Fee 09:56:19 CDT CPT-OV Office Visit 15:46:10 CDT
--- OUTSIDE RECORDS SUMMARY | 2017-08-25 21:29 | XMS REPORT | Clinical Summary ---
Author Author Admin, IWONA Organization [employer] Address Unknown Phone Unavailable Allergies, Adverse Reactions, Alerts Allergy Name Reaction Description Start Date Severity Status Provider ERYTHROMYCIN Stomach cramps Moderate Active Prosper Arenas MD CODEINE Critical Active Maliheh Ziglari SAFETY COUNCIL DIRECTOR DARVOCET Critical Active Maliheh Ziglari SAFETY COUNCIL DIRECTOR LEVAQUIN Critical Active Maliheh Ziglari SAFETY COUNCIL DIRECTOR Conditions or Problems Problem Name Problem Code Onset Date Status Entry Date Provider Comment Standard Description Annotate Diabetes, Type 2 250.00 Resolved Tami Miller core inserter mellitus 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, type II [...] II, uncontrolled 250.02 Active Maliheh Rodrigoglari SAFETY COUNCIL DIRECTOR Diabetes mellitus 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, type [...] giddiness Preventive health care V70.0 Active Betsy oRnnie Routine general medical examination at a health care facility Encounter for fitting and adjustment of vascular catheter V58.81 Resolved Tami Miller RN Encounter for fitting and adjustment of vascular catheter Type 2 diabetes mellitus with hyperglycemia 250.00 Active 03/21 Maliheh Ziglari SAFETY COUNCIL DIRECTOR Diabetes mellitus 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, type II or unspecified type, not stated as uncontrolled alf use of insulin treatment V58.67 Active Luxiheh Rodrigoglari SAFETY COUNCIL DIRECTOR Long-term (current) use of insulin Diabetes mellitus, type II with hypoglycemia 250.80 Active 07/22 Maliheh Ziglari SAFETY COUNCIL DIRECTOR Diabetes mellitus with other specified manifestations, type II or unspecified type, not stated as uncontrolled 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 Maliheh Ziglari SAFETY COUNCIL DIRECTOR Diabetes mellitus with renal manifestations, type II or unspecified type, not stated as uncontrolled Wellness exam V70.0 Active Dee Palmer APRN Routine general medical examination at a health care facility Fitting and adjustment of vascular catheter V58.81 Active 02/06 Dee Palmer APRN Encounter for fitting and adjustment of vascular catheter Unawareness of hypoglycemia in diabetes mellitus, type II 250.80 Active Maliheh Ziglari SAFETY COUNCIL DIRECTOR Diabetes mellitus with other specified manifestations, type [...] Inactive Mekhi Dukes MD Bronchitis ICD-490 Inactive Mehki Dukes MD Cough ICD-786.2 Inactive Mekhi Dukes MD Vertigo ICD-780.4 Inactive Mekhi Dukes MD Encounter for fitting and adjustment of vascular catheter ICD-V58.81 Inactive Mekhi Dukes MD Cough ICD-786.2 Inactive Mekhi Dukes MD Headache ICD-784.0 Inactive Mekhi Dukes MD Medication List Medication Instructions Start Date Stop Date Generic Name NDC Status Provider Patient Instruction GABAPENTIN 300 MG ORAL CAPS 1 tab BID GABAPENTIN 47853783538 Active Tami Miller RN Active PREDNISONE 20 MG TABS Take 2 daily for 3 days and then 1 daily for 3 days PREDNISONE 71978703186 No Longer Active Moy PARISH Active BENZONATATE 200 MG CAPS Take 1 tablet 3 times a day as needed for cough 07/29 BENZONATATE 26934454660 No Longer Active Prosper Arenas MD Active HYDROCHLOROTHIAZIDE 25 MG TABS 1 tablet by mouth daily HYDROCHLOROTHIAZIDE 02181102066 No Longer Active Prosper Arenas MD Active ACCU-CHEK JOANNA PLUS STRP check blood sugars 5x a day, before each meal and bedtime and 15 minutes after treating a low blood. sugar GLUCOSE BLOOD 30465296911 Active Maliheh Ziglari SAFETY COUNCIL DIRECTOR Active NOVOLOG FLEXPEN 100 UNIT/ML SOPN Take 25 units with each meal, add 1u/50 for blood sugars above 150. INSULIN ASPART 58719469559 Active Maliheh Ziglari SAFETY COUNCIL DIRECTOR Active LANTUS SOLOSTAR 100 UNIT/ML SOLN Take 40 units at 7-8pm daily INSULIN GLARGINE 31432655152 Active Maliheh Ziglari SAFETY COUNCIL DIRECTOR Active MECLIZINE HCL 25 MG TABS 1 daily needed for dizziness MECLIZINE HCL 68125439489 No Longer Active Maliheh Ziglari SAFETY COUNCIL DIRECTOR Active BENZONATATE 200 MG CAPS 1 tab, 2-3 times a day BENZONATATE 28347930499 No Longer Active Maliheh Ziglari SAFETY COUNCIL DIRECTOR Active HALOPERIDOL 0.5 MG TABS one tablet three times a day HALOPERIDOL 13245970574 No Longer Active Maliheh Ziglari SAFETY COUNCIL DIRECTOR Active TRAZODONE HCL 50 MG TAB three tablets at bed time TRAZODONE HCL 26573916085 No Longer Active Maliheh Ziglari SAFETY COUNCIL DIRECTOR Active REVLIMID 25 MG CAPS one capsule daily for 21 days then off for 7 days 2014 LENALIDOMIDE 57661994616 No Longer Active Maliheh Ziglari SAFETY COUNCIL DIRECTOR Active ZITHROMAX Z-EDDIE 250 MG TABS 2 today, then 1 daily for 4 days 2014 AZITHROMYCIN 45449618522 No Longer Active Augustina Yotalaum TRACK AND FIELD COACH Active NOVOLIN R RELION 100 UNIT/ML INJ SOLN 30- 40 units each meal sliding scale INSULIN REGULAR HUMAN 61395083940 No Longer Active Moy PARISH Active LISINOPRIL 5 MG TABS 1 daily LISINOPRIL 51056826230 Active Prosper Arenas MD Active CALCIUM 500/D 500-200 MG-UNIT TABS one tablet daily CALCIUM CARBONATE- VITAMIN D 39411310632 Active Prosper Arenas MD Active HYDROCODONE-ACETAMINOPHEN 5-500 MG TABS 1-2 FOUR TIMES A DAY, PRN HYDROCODONE-ACETAMINOPHEN 14227226131 No Longer Active Prosper Arenas MD Active SIMVASTATIN 80 MG TABS 1/2 tablet daily SIMVASTATIN 72511152283 Active Prosper Arenas MD Active METOPROLOL TARTRATE 25 MG TABS 1/2 tablet twice a day METOPROLOL TARTRATE 53601652562 Active Prosper Arenas MD Active ASPIRIN 81 MG TAB 1 tablet by mouth daily ASPIRIN 42111314022 Active Prosper Arenas MD Active OMEPRAZOLE 20 MG CPDR 1 qd OMEPRAZOLE 08453678359 Active DARCIE Miller Active DOXYCYCLINE HYCLATE 100 MG CAPS take one capsule by mouth twice daily for ten days DOXYCYCLINE HYCLATE 77845519433 No Longer Active Mekhi Dukes MD Active DOXYCYCLINE HYCLATE 100 MG CAPS take one capsule by mouth twice daily for ten days DOXYCYCLINE HYCLATE 100 MG CAPS 4659962 DOXYCYCLINE HYCLATE Inactive HALOPERIDOL 0.5 MG TABS one tablet three times a day HALOPERIDOL 0.5 MG TABS 125186 HALOPERIDOL Inactive HYDROCHLOROTHIAZIDE 25 MG TABS 1 tablet by mouth daily HYDROCHLOROTHIAZIDE 25 MG TABS 705297 HYDROCHLOROTHIAZIDE Inactive PREDNISONE 20 MG TABS Take 2 daily for 3 days and then 1 daily for 3 days PREDNISONE 20 MG TABS 572287 PREDNISONE Inactive TRAZODONE HCL 50 MG TAB three tablets at bed time TRAZODONE HCL 50 MG TAB 642462 TRAZODONE HCL Inactive MECLIZINE HCL 25 MG TABS 1 daily needed for dizziness MECLIZINE HCL 25 MG TABS 164136 MECLIZINE HCL Inactive HYDROCODONE-ACETAMINOPHEN 5-500 MG TABS 1-2 FOUR TIMES A DAY, PRN HYDROCODONE-ACETAMINOPHEN 5-500 MG TABS HYDROCODONE- ACETAMINOPHEN Inactive BENZONATATE 200 MG CAPS 1 tab, 2-3 times a day BENZONATATE 200 MG CAPS 414839 BENZONATATE Inactive BENZONATATE 200 MG CAPS Take 1 tablet 3 times a day as needed for cough 07/29 BENZONATATE 200 MG CAPS 172015 BENZONATATE Inactive ZITHROMAX Z-EDDIE 250 MG TABS 2 today, then 1 daily for 4 days 2014 ZITHROMAX Z-EDDIE 250 MG TABS 0763041 AZITHROMYCIN Inactive REVLIMID 25 MG CAPS one [...] W/DIFF - Chemistry sodium, serum 137 mmol/L 727-991 4535/08/16 carbon dioxide, venous blood 26.3 mmol/L 21.0-32.0 [...] Glucose - Chemistry cholesterol, serum 115 mg/dL 334-883 9712/08/18 triglyceride, serum, fasting 89 mg/dL 30-200 HDL cholesterol, serum 46 mg/dL 32-60 LDL cholesterol, serum 51 mg/dL 0-130 blood glucose 104 mg/dL 65-110 Lab Report: LIPID PANEL- REPOWER LAB - Chemistry cholesterol, serum 156 mg/dL 697-123 3622/02/20 HDL cholesterol, serum 52 mg/dL > OR=40 [...] mg/dL Encounters Code Encounter Date Provider Facility CPT-29073 Level 3 Est. Patient 10:00:14 CDT Mekhi Dukes MD [facility] CPT-64461 Level 3 Est. Patient 12:24:09 CDT Moy Garcia [facility][note 3]-[id number] Level 3 Est. Patient 14:34:57 CDT Prosper Arenas MD [facility] CPT-42577 Level 3 New Patient 15:44:53 LABORATORY TESTER Mekhi Dukes MD [facility]-38665 Level 3 Est. Patient 14:53:34 LABORATORY TESTER Prosper Arenas MD [facility] CPT-99230 Level 4 Est. Patient 10:05:41 LABORATORY TESTER Moy Garcia [facility][note 3]-[id number] Level 3 Est. [facility] 11:18:32 [facility] Level 4 Est. Patient 11:05:10 CDT [facility][note 3]-[id number] Level 3 Est. Patient 11:08:27 LABORATORY TESTER Moy Garcia [facility] CPT-07208 Level 4 Est. Patient 10:43:59 CDT Prosper Arenas MD [facility] CPT-96244 Level 3 Est. Patient 10:51:19 CDT Moy Garcia [facility] CPT-86566 Level 3 Est. Patient 10:20:31 CDT Moy Garcia [facility] CPT-73225 Level 3 Est. Patient 17:08:45 CDT Moy Garcia [facility] CPT-90609 Level 2 Est. Patient 13:54:36 CDT Augustina Mata APRN [facility] CPT-44887 Level 3 Est. Patient 12:00:42 CDT Prosper Arenas MD [facility]-39985 Level 3 Est. Patient 09:57:28 LABORATORY TESTER [facility] CPT-46686 Level 3 Est. Patient 11:41:19 LABORATORY TESTER [facility] CPT-84185 Level 4 Est. Patient 17:07:35 LABORATORY TESTER [facility] CPT-14687 Level 5 Est. Patient 14:33:32 [facility] Level 3 Est. Patient 12:25:35 CDT Prosper Arenas MD [facility] Procedures Code Procedure Name Date Entry Date Standard Description CPT-000 Give Appropriate Flu Vaccine 10:13:55 LABORATORY TESTER CPT-000 Give Immunizations Due 10:13:55 LABORATORY TESTER CPT-07895 HGBA1C - LAB USE ONLY 09:42:47 LABORATORY TESTER CPT-64960 TPSA - LAB USE ONLY 09:42:46 LABORATORY TESTER CPT-90280 Venipuncture Draw Fee 09:42:46 LABORATORY TESTER CPT-96050 Port a cath flush 13:33:18 LABORATORY TESTER CPT-87199 First Vx - Ix admin for Medicare patients 10:42:57 LABORATORY TESTER CPT-25958 Fluzone Preservative Free Intramuscular Suspension 10:42 :57 LABORATORY TESTER CPT-G0438 Initial Annual Wellness Exam 10:13:55 LABORATORY TESTER CPT-000 Give Appropriate Flu Vaccine 10:44:04 CDT CPT-000 Give Pneumovax 10:44:03 CDT CPT-35875 Port a cath flush 17:04:43 CDT CPT-47582 Prevnar 13 11:19:17 CDT CPT-96013 Fluzone Quadrivalent preservative free (>=3yrs.) 11:19: 17 CDT CPT-01844 Immunization Each Additional Inj 11:19:17 CDT CPT-28188 Immunization Single Admin 11:19:17 CDT CPT-11602 Port a cath flush 13:28:22 CDT CPT-TCMM Transitional Care Mgmt-Moderate 13:40:15 CDT CPT-G0008 Administration of Influenza Virus Vaccine 13:59:20 CDT CPT-50544 Fluzone High-Dose Intramuscular Suspension 13:59:20 CDT CPT-33443 Venipuncture Draw Fee 09:56:19 CDT CPT-OV Office Visit 15:46:10 CDT
--- OUTSIDE RECORDS SUMMARY | 2017-08-25 21:30 | XMS REPORT | Clinical Summary ---
Author Author Admin, IWONA Organization [employer] Address Unknown Phone Unavailable Allergies, Adverse Reactions, Alerts Allergy Name Reaction Description Start Date Severity Status Provider ERYTHROMYCIN Stomach cramps Moderate Active Prosper Arenas MD CODEINE Critical Active Maliheh Ziglari SOURCING ANALYST DARVOCET Critical Active Maliheh Ziglari SOURCING ANALYST LEVAQUIN Critical Active Maliheh Ziglari SOURCING ANALYST Conditions or Problems Problem Name Problem [...] hypertension FH Colon Cancer V16.0 Active Mekhi Dkues MD Family history of malignant neoplasm of gastrointestinal tract FH Diabetes V18.0 Active Mekhi Dukes MD Family history of diabetes mellitus Abdominal pain, right upper quadrant 789.01 Active Mekhi Dukes MD Abdominal pain, right upper quadrant Syncope and collapse 780.2 Active Prosper Arenas MD Syncope and collapse Hypokalemia 276.8 Active Prosper Arenas MD Hypopotassemia Diabetes mellitus, type II, uncontrolled 250.02 Active Maliheh Ziglari SOURCING ANALYST Diabetes mellitus 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, [...] with hyperglycemia 250.00 Active 03/21 Maliheh Ziglari SOURCING ANALYST Diabetes mellitus 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, type II or unspecified type, 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 as 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 insulin 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 V58.67 Active Luxiheh Ziglari SOURCING ANALYST Long-term (current) use of insulin Diabetes mellitus, type II with hypoglycemia 250.80 Active 07/22 Maliheh Ziglari SOURCING ANALYST Diabetes mellitus with other specified manifestations, type II or unspecified type, not stated as uncontrolled 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 Maliheh Ziglari SOURCING ANALYST Diabetes mellitus with renal manifestations, type II or unspecified type, not stated as uncontrolled Wellness exam V70.0 Active Dee Palmer APRN Routine general medical examination at a health care facility Fitting and adjustment of vascular catheter V58.81 Active 02/06 Dee Palmer APRN Encounter for fitting and adjustment of vascular catheter Unawareness of hypoglycemia in diabetes mellitus, type II 250.80 Active Maliheh Ziglari SOURCING ANALYST Diabetes mellitus with other specified manifestations, type II or unspecified type, not stated as uncontrolled Medication List Medication Instructions Start Date Stop Date Generic Name NDC Status Provider Patient Instruction ACCU-CHEK JOANNA PLUS STRP check blood sugars 5x a day, before each meal and bedtime and 15 minutes after treating a low blood. sugar GLUCOSE BLOOD 54364149787 Active Maliheh Ziglari SOURCING ANALYST Active NOVOLOG FLEXPEN 100 UNIT/ML SOPN Take 25 units with each meal, add 1u/50 for blood sugars above 150. INSULIN ASPART 60737562853 Active Maliheh Ziglari SOURCING ANALYST Active LANTUS SOLOSTAR 100 UNIT/ML SOLN Take 40 units at 7-8pm daily INSULIN GLARGINE 13239538532 Active Maliheh Ziglari SOURCING ANALYST Active MECLIZINE HCL 25 MG TABS 1 daily needed for dizziness MECLIZINE HCL 32796223683 No Longer Active Maliheh Ziglari SOURCING ANALYST Active BENZONATATE 200 MG CAPS 1 tab, 2-3 times a day BENZONATATE 58124530960 No Longer Active Maliheh Ziglari SOURCING ANALYST Active HALOPERIDOL 0.5 MG TABS one tablet three times a day HALOPERIDOL 65429954325 No Longer Active Maliheh Ziglari SOURCING ANALYST Active TRAZODONE HCL 50 MG TAB three tablets at bed time TRAZODONE HCL 87095918886 No Longer Active Maleast [facility] Ziglari SOURCING ANALYST Active REVLIMID 25 MG CAPS one capsule daily for 21 days then off for 7 days 2014 LENALIDOMIDE 17042222787 No Longer Active Maleh Ziglari SOURCING ANALYST Active ZITHROMAX Z-EDDIE 250 MG TABS 2 today, then 1 daily for 4 days 2014 AZITHROMYCIN 70805881433 No Longer Active Augustina Yoann MANAGER OF HOSPITAL Active NOVOLIN R RELION 100 UNIT/ML INJ SOLN 30- 40 units each meal sliding scale INSULIN REGULAR HUMAN 98476189101 No Longer Active Maliheh Ziglari SOURCING ANALYST Active LISINOPRIL 5 MG TABS 1 daily LISINOPRIL 03253261034 Active Prosper Arenas MD Active CALCIUM 500/D 500-200 MG-UNIT TABS one tablet daily CALCIUM CARBONATE- VITAMIN D 94793186139 Active Prosper Arenas MD Active HYDROCHLOROTHIAZIDE 25 MG TABS 1 tablet by mouth daily HYDROCHLOROTHIAZIDE 02034860682 Active Prosper Arenas MD Active HYDROCODONE-ACETAMINOPHEN 5-500 MG TABS 1-2 FOUR TIMES A DAY, PRN HYDROCODONE-ACETAMINOPHEN 40957027911 No Longer Active Prosper Arenas MD Active SIMVASTATIN 80 MG TABS 1/2 tablet daily SIMVASTATIN 93426087141 Active Prosper Arenas MD Active METOPROLOL TARTRATE 25 MG TABS 1/2 tablet twice a day METOPROLOL TARTRATE 49612621162 Active Prosper Arenas MD Active ASPIRIN 81 MG TAB 1 tablet by mouth daily ASPIRIN 70113756284 Active Prosper Arenas MD Active OMEPRAZOLE 20 MG CPDR 1 qd OMEPRAZOLE 53838013892 Active DARCIE Miller Active DOXYCYCLINE HYCLATE 100 MG CAPS take one capsule by mouth twice daily for ten days DOXYCYCLINE HYCLATE 58152267406 No Longer Active Mekhi Dukes MD Active DOXYCYCLINE HYCLATE 100 MG CAPS take one capsule by mouth twice daily for ten days DOXYCYCLINE HYCLATE 100 MG CAPS 1466015 DOXYCYCLINE HYCLATE Inactive HYDROCODONE-ACETAMINOPHEN 5-500 MG TABS [...] days 2014 ZITHROMAX Z-EDDIE 250 MG TABS 0956106 AZITHROMYCIN Inactive REVLIMID 25 MG CAPS one capsule daily for 21 days then off for 7 days 2014 REVLIMID 25 MG CAPS LENALIDOMIDE Inactive TRAZODONE HCL 50 MG TAB three tablets at bed time TRAZODONE HCL 50 MG TAB 467278 TRAZODONE HCL Inactive HALOPERIDOL 0.5 MG TABS one tablet three times a day HALOPERIDOL 0.5 MG TABS 415953 HALOPERIDOL Inactive BENZONATATE 200 MG CAPS 1 tab, 2-3 times a day BENZONATATE 200 MG CAPS 680999 BENZONATATE Inactive MECLIZINE HCL 25 MG TABS 1 daily needed for dizziness MECLIZINE HCL 25 MG TABS 674346 MECLIZINE HCL Inactive Immunizations Vaccine Administration Date [...] mg/dL Encounters Code Encounter Date Provider Facility CPT-01010 Level 4 Est. Patient 10:05:[address] [facility] CPT-95226 Level 3 Est. Patient 11:18:[address] [facility] CPT-01191 Level 4 Est. Patient 11:05:[address] [facility] CPT-24098 Level 3 Est. Patient 11:08:27 JAVA TECH Maliheh Ziglari [facility] CPT-71379 Level 4 Est. Patient 10:43:59 CDT Prosper Arenas MD [facility] CPT-06965 Level 3 Est. Patient 10:51:19 CDT Moy Garcia [facility] CPT-41067 Level 3 Est. Patient 10:20:31 CDT Moy Garcia [facility] CPT-56641 Level 3 Est. Patient 17:08:45 CDT Moy Garcia [facility] CPT-30514 Level 2 Est. Patient 13:54:36 CDT Augustina Mata MANAGER OF HOSPITAL [facility] CPT-03409 Level 3 Est. Patient 12:00:42 CDT Prosper Arenas MD [facility] CPT-12424 Level 3 Est. Patient 09:57:28 JAVA TECH Moy Garcia [facility] CPT-09410 Level 3 Est. Patient 11:41:19 JAVA TECH oMy Garcia [facility] CPT-40612 Level 4 Est. Patient 17:07:35 [facility] Level 5 Est. [facility] 14:33:32 [facility] 3 Est. Patient 12:25:35 CDT Prosper Arenas MD [facility] Procedures Code Procedure Name Date Entry Date Standard Description CPT-000 Give Appropriate Flu Vaccine 10:13:55 JAVA TECH CPT-000 Give Immunizations Due 10:13:55 JAVA TECH CPT-63519 HGBA1C - LAB USE ONLY 09:42:47 JAVA TECH CPT-77465 TPSA - LAB USE ONLY 09:42:46 JAVA TECH CPT-80430 Venipuncture Draw Fee 09:42:46 JAVA TECH CPT-44356 Port a cath flush 13:33:18 JAVA TECH CPT-60060 First Vx - Ix admin for Medicare patients 10:42:57 JAVA TECH CPT-37152 Fluzone Preservative Free Intramuscular Suspension 10:42 :57 JAVA TECH CPT-G0438 Initial Annual Wellness Exam 10:13:55 JAVA TECH CPT-000 Give Appropriate Flu Vaccine 10:44:04 CDT CPT-000 Give Pneumovax 10:44:03 CDT CPT-57252 Port a cath flush 17:04:43 CDT CPT-73420 Prevnar 13 11:19:17 CDT CPT-42613 Fluzone Quadrivalent preservative free (>=3yrs.) 11:19: 17 CDT CPT-12771 Immunization Each Additional Inj 11:19:17 CDT CPT-88775 Immunization Single Admin 11:19:17 CDT CPT-46433 Port a cath flush 13:28:22 CDT CPT-TCMM Transitional Care Mgmt-Moderate 13:40:15 CDT CPT-G0008 Administration of Influenza Virus Vaccine 13:59:20 CDT CPT-92054 Fluzone High-Dose Intramuscular Suspension 13:59:20 CDT CPT-16142 Venipuncture Draw Fee 09:56:19 CDT CPT-OV Office Visit 15:46:10 CDT
--- OUTSIDE RECORDS SUMMARY | 2017-08-25 21:30 | XMS REPORT | Clinical Summary ---
Author Author Admin, IWONA Organization [email or web address] Address Unknown Phone Unavailable Allergies, Adverse Reactions, Alerts Allergy Name Reaction Description Start Date Severity Status Provider ERYTHROMYCIN Stomach cramps Moderate Active Prosper Arenas MD CODEINE Critical Active Maliheh Ziglari MERGERS AND ACQUISITIONS ASSOCIATE DARVOCET Critical Active Maliheh Ziglari MERGERS AND ACQUISITIONS ASSOCIATE LEVAQUIN Critical Active Maliheh Ziglari MERGERS AND ACQUISITIONS ASSOCIATE Conditions or Problems Problem Name Problem Code Onset Date Status Entry Date Provider Comment Standard Description Annotate Diabetes, Type 2 250.00 Resolved Tami Miller primary special educator mellitus 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, type [...] type II, uncontrolled 250.02 Active Maliheh Rodrigoglari [employer]GERS AND ACQUISITIONS ASSOCIATE Diabetes mellitus 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, type [...] with hyperglycemia 250.00 Active 03/21 Maliheh Ziglari MERGERS AND ACQUISITIONS ASSOCIATE Diabetes mellitus 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, type II or unspecified type, not stated as uncontrolled intermediate use of insulin treatment V58.67 Active Luxiheh Rodrigoglari MERGERS AND ACQUISITIONS ASSOCIATE Long-term (current) use of insulin Diabetes mellitus, type II with hypoglycemia 250.80 Active 07/22 Maliheh Ziglari MERGERS AND ACQUISITIONS ASSOCIATE Diabetes mellitus with other specified manifestations, type II or unspecified type, not stated as uncontrolled 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 Maliheh Ziglari MERGERS AND ACQUISITIONS ASSOCIATE Diabetes mellitus with renal manifestations, type II or unspecified type, not stated as uncontrolled Wellness exam V70.0 Active Dee Palmer APRN Routine general medical examination at a health care facility Fitting and adjustment of vascular catheter V58.81 Active 02/06 Dee Palmer APRN Encounter for fitting and adjustment of vascular catheter Unawareness of hypoglycemia in diabetes mellitus, type II 250.80 Active Maliheh Ziglari MERGERS AND ACQUISITIONS ASSOCIATE Diabetes mellitus with other specified manifestations, type [...] MG ORAL TABLET 1/2 tablet daily SIMVASTATIN 04195888559 No Longer Active Mekhi Dukes MD Active OMEPRAZOLE 20 MG ORAL CAPSULE DELAYED RELEASE 1 qd OMEPRAZOLE 70987300445 No Longer Active Mekhi Dukes MD Active METOPROLOL TARTRATE 25 MG ORAL TABLET 1/2 tablet twice a day METOPROLOL TARTRATE 46890269151 No Longer Active Mekhi Dukes MD Active LISINOPRIL 5 MG ORAL TABLET 1 daily LISINOPRIL 94269656787 No Longer Active Mekhi Dukes MD Active NOVOLOG FLEXPEN 100 UNIT/ML SUBCUTANEOUS SOLUTION PEN-INJECTOR Take 8 units with each meal, add 1u/50 for blood sugars above 150. INSULIN ASPART 45378902615 Active Moy PARISH Active GABAPENTIN 300 MG ORAL CAPSULE 1 tab BID GABAPENTIN 00966203555 Active Tami Miller RN Active PREDNISONE 20 MG ORAL TABLET Take 2 daily for 3 days and then 1 daily for 3 days PREDNISONE 51363238486 No Longer Active Moy PARISH Active BENZONATATE 200 MG ORAL CAPSULE Take 1 tablet 3 times a day as needed for cough BENZONATATE 01325991560 No Longer Active Prosper Arenas MD Active HYDROCHLOROTHIAZIDE 25 MG ORAL TABLET 1 tablet by mouth daily HYDROCHLOROTHIAZIDE 90609410278 No Longer Active Prosper Arenas MD Active ACCU-CHEK JOANNA PLUS IN VITRO STRIP check blood sugars 5x a day, before each meal and bedtime and 15 minutes after treating a low blood. sugar GLUCOSE BLOOD 85802621843 Active Malpapo Wallaceglrex PARISH Active LANTUS SOLOSTAR 100 UNIT/ML SUBCUTANEOUS SOLUTION PEN-INJECTOR Take 40 units at 7-8pm daily INSULIN GLARGINE 42599616132 Active Moy Ziglari MERGERS AND ACQUISITIONS ASSOCIATE Active MECLIZINE HCL 25 MG ORAL TABLET 1 daily needed for dizziness 2015 MECLIZINE HCL 42427128684 No Longer Active Maleh Ziglari MERGERS AND ACQUISITIONS ASSOCIATE Active BENZONATATE 200 MG ORAL CAPSULE 1 tab, 2-3 times a day BENZONATATE 45021348895 No Longer Active [facility] Ziglari MERGERS AND ACQUISITIONS ASSOCIATE Active HALOPERIDOL 0.5 MG ORAL TABLET one tablet three times a day HALOPERIDOL 62825592177 No Longer Active [facility] Ziglari MERGERS AND ACQUISITIONS ASSOCIATE Active TRAZODONE HCL 50 MG ORAL TABLET three tablets at bed time TRAZODONE HCL 55007761423 No Longer Active [facility] Ziglari MERGERS AND ACQUISITIONS ASSOCIATE Active REVLIMID 25 MG ORAL CAPSULE one capsule daily for 21 days then off for 7 days LENALIDOMIDE 08797378401 No Longer Active [facility] Ziglari MERGERS AND ACQUISITIONS ASSOCIATE Active ZITHROMAX Z-EDDIE 250 MG ORAL TABLET 2 today, then 1 daily for 4 days AZITHROMYCIN 79353329844 No Longer Active Augustina Adolfo DOHERTY Active NOVOLIN R RELION 100 UNIT/ML INJECTION SOLUTION 30- 40 units each meal sliding scale INSULIN REGULAR HUMAN 24859662751 No Longer Active Moy Rodrigoglari MERGERS AND ACQUISITIONS ASSOCIATE Active CALCIUM 500/D 500-200 MG-UNIT ORAL TABLET one tablet daily CALCIUM CARBONATE-VITAMIN D 19509712905 Active Prosper Arenas MD Active HYDROCODONE-ACETAMINOPHEN 5-500 MG ORAL TABLET 1-2 FOUR TIMES A DAY, PRN 2010 HYDROCODONE-ACETAMINOPHEN 11923520461 No Longer Active Prosper Arenas MD Active ASPIRIN 81 MG ORAL TABLET 1 tablet by mouth daily ASPIRIN 08216382140 Active Prosper Arenas MD Active DOXYCYCLINE HYCLATE 100 MG ORAL CAPSULE take one capsule by mouth twice daily for ten days DOXYCYCLINE HYCLATE 57057665408 No Longer Active Mekhi Dukes MD Active DOXYCYCLINE HYCLATE 100 MG ORAL CAPSULE take one capsule by mouth twice daily for ten days DOXYCYCLINE HYCLATE 100 MG ORAL CAPSULE 0190016 DOXYCYCLINE HYCLATE Inactive HYDROCODONE-ACETAMINOPHEN 5-500 MG ORAL TABLET 1-2 FOUR TIMES A DAY, PRN 2010 HYDROCODONE-ACETAMINOPHEN 5-500 MG ORAL TABLET 594324 HYDROCODONE-ACETAMINOPHEN Inactive NOVOLIN R RELION 100 UNIT/ML INJECTION SOLUTION 30- 40 units each meal sliding scale NOVOLIN R RELION 100 UNIT/ML INJECTION SOLUTION INSULIN REGULAR HUMAN Inactive ZITHROMAX Z-EDDIE 250 MG ORAL TABLET 2 today, then 1 daily for 4 days ZITHROMAX Z-EDDIE 250 MG ORAL TABLET 739307 AZITHROMYCIN Inactive REVLIMID 25 MG ORAL CAPSULE one capsule daily for 21 days then off for 7 days REVLIMID 25 MG ORAL CAPSULE LENALIDOMIDE Inactive TRAZODONE HCL 50 MG ORAL TABLET three tablets at bed time TRAZODONE HCL 50 MG ORAL TABLET 705225 TRAZODONE HCL Inactive HALOPERIDOL 0.5 MG ORAL TABLET one tablet three times a day HALOPERIDOL 0.5 MG ORAL TABLET 979737 HALOPERIDOL Inactive BENZONATATE 200 MG ORAL CAPSULE 1 tab, 2-3 times a day BENZONATATE 200 MG ORAL CAPSULE 209474 BENZONATATE Inactive MECLIZINE HCL 25 MG ORAL TABLET 1 daily needed for dizziness 2015 MECLIZINE HCL 25 MG ORAL TABLET 681712 MECLIZINE HCL Inactive HYDROCHLOROTHIAZIDE 25 MG ORAL TABLET 1 tablet by mouth daily HYDROCHLOROTHIAZIDE 25 MG ORAL TABLET 355111 HYDROCHLOROTHIAZIDE Inactive PREDNISONE 20 MG ORAL TABLET Take 2 daily for 3 days and then 1 daily for 3 days PREDNISONE 20 MG ORAL TABLET 841393 PREDNISONE Inactive LISINOPRIL 5 MG ORAL TABLET 1 daily LISINOPRIL 5 MG ORAL TABLET 240848 LISINOPRIL Inactive METOPROLOL TARTRATE 25 MG ORAL TABLET 1/2 tablet twice a day METOPROLOL TARTRATE 25 MG ORAL TABLET 319555 METOPROLOL TARTRATE Inactive OMEPRAZOLE 20 MG ORAL CAPSULE DELAYED RELEASE 1 qd OMEPRAZOLE 20 MG ORAL CAPSULE DELAYED RELEASE 739525 OMEPRAZOLE Inactive SIMVASTATIN 80 MG ORAL TABLET 1/2 tablet daily SIMVASTATIN 80 MG ORAL TABLET 432033 SIMVASTATIN Inactive BENZONATATE 200 MG ORAL CAPSULE Take 1 tablet 3 times a day as needed for cough BENZONATATE 200 MG ORAL CAPSULE 216870 BENZONATATE Inactive Immunizations Vaccine Administration Date Value [...] W/DIFF - Chemistry sodium, serum 137 mmol/L 927-642 9210/08/16 carbon dioxide, venous blood 26.3 mmol/L 21.0-32.0 [...] LABS - Chemistry cholesterol, serum 115 mg/dL 356-202 5817/08/18 triglyceride, serum, fasting 89 mg/dL 30-200 HDL cholesterol, serum 46 mg/dL 32-60 LDL cholesterol, serum 51 mg/dL 0-130 blood glucose 104 mg/dL 65-110 Lab Report: LIPID PANEL- REPOWER LAB - Chemistry cholesterol, serum 156 mg/dL 291-066 0402/02/20 HDL cholesterol, serum 52 mg/dL > OR=40 [...] mg/dL Encounters Code Encounter Date Provider Facility CPT-04139 Level 3 Est. Patient 17:11:55 BEADING SAWYER Ismael Gracia MD [facility] CPT-96503 Level 4 Est. Patient 16:29:19 CDT Mekhi Dukes MD [facility] CPT-30272 Level 3 New Patient 17:05:24 CDT Ismael Gracia MD [facility] CPT-79613 Level 2 Est. Patient 15:43:17 CDT Mekhi Dukes MD [facility] CPT-30180 Level 3 Est. Patient 09:30:37 CDT Maliheh Ziglari [facility]-43167 Level 3 Est. Patient 10:00:14 CDT Mekhi Dukes MD [facility] CPT-98494 Level 3 Est. Patient 12:24:09 CDT Moy Garcia [facility]-35984 Level 3 Est. Patient 14:34:57 CDT Prosper Arenas MD [facility] CPT-22307 Level 3 New Patient 15:44:53 [facility]ING [facility] Mekhi Dukes MD [facility]-25519 Level 3 Est. Patient 14:53:34 BE[facility]ING [employer] Prosper Arenas MD [facility] CPT-99165 Level 4 Est. Patient 10:05:41 BEADING [place]WY[facility] Moy Rodrigokymrex [facility]-44198 Level 3 Est. Patient 11:18:32 [facility]-06690 Level 4 Est. Patient 11:05:10 CDT Moy Garcia [facility] CPT-66804 Level 3 Est. Patient 11:08:27 BE[facility]ING [place]WYER Moy Garcia [facility] CPT-50018 Level 4 Est. Patient 10:43:59 CDT rPosper Arenas MD [facility] CPT-70762 Level 3 Est. Patient 10:51:19 CDT Moy Garcia [facility] CPT-04495 Level 3 Est. Patient 10:20:31 CDT Moy Garcia [facility] CPT-52508 Level 3 Est. Patient 17:08:45 CDT Moy Garcia [facility] CPT-26077 Level 2 Est. Patient 13:54:36 CDT Augustina Mata APRN [facility] CPT-24741 Level 3 Est. Patient 12:00:42 CDT Prosper Arenas MD [facility] CPT-94722 Level 3 Est. Patient 09:57:28 BE[facility]ING [employer] Moy Garcia [facility] CPT-01754 Level 3 Est. Patient 11:41:19 [facility]ADING [employer] Moy Garcia [facility] CPT-56897 Level 4 Est. Patient 17:07:35 BEADING [employer]ER Moy Garcia [facility] CPT-25608 Level 5 Est. Patient 14:33:32 CDT Moy Wallacerex [facility] CPT-53084 Level 3 Est. Patient 12:25:35 CDT Prosper Arenas MD [facility] Procedures Code Procedure Name Date Entry Date Standard Description CPT-G0439 Subsequent Annual Wellness Exam 08:39:41 BEADING SAWYER CPT-000 Give Appropriate Flu Vaccine 10:13:55 BEADING SAWYER CPT-000 Give Immunizations Due 10:13:55 BEADING SAWYER CPT-29454 HGBA1C - LAB USE ONLY 09:42:47 BEADING SAWYER CPT-19967 TPSA - LAB USE ONLY 09:42:46 BEADING SAWYER CPT-56371 Venipuncture Draw Fee 09:42:46 BEADING SAWYER CPT-08598 Port a cath flush 13:33:18 BEADING SAWYER CPT-95449 First Vx - Ix admin for Medicare patients 10:42:57 BEADING SAWYER CPT-37291 Fluzone Preservative Free Intramuscular Suspension 10:42 :57 BEADING SAWYER CPT-G0438 Initial Annual Wellness Exam 10:13:55 BEADING SAWYER CPT-000 Give Appropriate Flu Vaccine 10:44:04 CDT CPT-000 Give Pneumovax 10:44:03 CDT CPT-10495 Port a cath flush 17:04:43 CDT CPT-01760 Prevnar 13 11:19:17 CDT CPT-50495 Fluzone Quadrivalent preservative free (>=3yrs.) 11:19: 17 CDT CPT-04433 Immunization Each Additional Inj 11:19:17 CDT CPT-38537 Immunization Single Admin 11:19:17 CDT CPT-38525 Port a cath flush 13:28:22 CDT CPT-TCMM Transitional Care Mgmt-Moderate 13:40:15 CDT CPT-G0008 Administration of Influenza Virus Vaccine 13:59:20 CDT CPT-71934 Fluzone High-Dose Intramuscular Suspension 13:59:20 CDT CPT-37203 Venipuncture Draw Fee 09:56:19 CDT CPT-OV Office Visit 15:46:10 CDT
--- OUTSIDE RECORDS SUMMARY | 2017-08-25 21:31 | XMS REPORT | Clinical Summary ---
Author Author Admin, IWONA Organization [employer] Address Unknown Phone Unavailable Allergies, Adverse Reactions, Alerts Allergy Name Reaction Description Start Date Severity Status Provider ERYTHROMYCIN Stomach cramps Moderate Active Prosper Arenas MD CODEINE Critical Active Maliheh Ziglari RAIL CAR PAINTER/SANDBLASTER DARVOCET Critical Active Maliheh Ziglari RAIL CAR PAINTER/SANDBLASTER LEVAQUIN Critical Active Maliheh Ziglari RAIL CAR PAINTER/SANDBLASTER Conditions or Problems Problem Name Problem Code [...] type II, uncontrolled 250.02 Active Maliheh Ziglari RAIL CAR PAINTER/SANDBLASTER Diabetes mellitus 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, type [...] with hyperglycemia 250.00 Active 03/21 Maliheh Ziglari RAIL CAR PAINTER/SANDBLASTER Diabetes mellitus 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, type II or unspecified type, not stated as uncontrolled retirement use of insulin treatment V58.67 Active Luxiheh Rodrigoglari RAIL CAR PAINTER/SANDBLASTER Long-term (current) use of insulin Diabetes mellitus, type II with hypoglycemia 250.80 Active 07/22 Maliheh Ziglari RAIL CAR PAINTER/SANDBLASTER Diabetes mellitus with other specified manifestations, type II or unspecified type, not stated as uncontrolled 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 sugar GLUCOSE BLOOD 10978222819 Active Maliheh Ziglari RAIL CAR PAINTER/SANDBLASTER Active NOVOLOG FLEXPEN 100 UNIT/ML SOPN Take 25 units with each meal, add 1u/50 for blood sugars above 150. INSULIN ASPART 47071836235 Active Maliheh Ziglari RAIL CAR PAINTER/SANDBLASTER Active LANTUS SOLOSTAR 100 UNIT/ML SOLN Take 40 units at 7-8pm daily INSULIN GLARGINE 99123519929 Active Maliheh Ziglari RAIL CAR PAINTER/SANDBLASTER Active MECLIZINE HCL 25 MG TABS 1 daily needed for dizziness MECLIZINE HCL 61964085109 No Longer Active Maliheh Ziglari RAIL CAR PAINTER/SANDBLASTER Active BENZONATATE 200 MG CAPS 1 tab, 2-3 times a day BENZONATATE 42879277873 No Longer Active Maliheh Ziglari RAIL CAR PAINTER/SANDBLASTER Active HALOPERIDOL 0.5 MG TABS one tablet three times a day HALOPERIDOL 21930965381 No Longer Active Maliheh Ziglari RAIL CAR PAINTER/SANDBLASTER Active TRAZODONE HCL 50 MG TAB three tablets at bed time TRAZODONE HCL 64128328023 No Longer Active Moy Wallacesania RAIL CAR PAINTER/SANDBLASTER Active REVLIMID 25 MG CAPS one capsule daily for 21 days then off for 7 days 2014 LENALIDOMIDE 99009504565 No Longer Active Moy Ziglari RAIL CAR PAINTER/SANDBLASTER Active ZITHROMAX Z-EDDIE 250 MG TABS 2 today, then 1 daily for 4 days 2014 AZITHROMYCIN 41300237567 No Longer Active Augustina Mata VFX ARTIST Active NOVOLIN R RELION 100 UNIT/ML INJ SOLN 30- 40 units each meal sliding scale INSULIN REGULAR HUMAN 39484475349 No Longer Active Moy Wallacekymari RAIL CAR PAINTER/SANDBLASTER Active LISINOPRIL 5 MG TABS 1 daily LISINOPRIL 63765384266 Active Prosper Arenas MD Active CALCIUM 500/D 500-200 MG-UNIT TABS one tablet daily CALCIUM CARBONATE- VITAMIN D 40017215423 Active Prosper Arenas MD Active HYDROCHLOROTHIAZIDE 25 MG TABS 1 tablet by mouth daily HYDROCHLOROTHIAZIDE 28251003469 Active Prosper Arenas MD Active HYDROCODONE-ACETAMINOPHEN 5-500 MG TABS 1-2 FOUR TIMES A DAY, PRN HYDROCODONE-ACETAMINOPHEN 63900359358 No Longer Active Prosper Arenas MD Active SIMVASTATIN 80 MG TABS 1/2 tablet daily SIMVASTATIN 66352521307 Active Prosper Arenas MD Active METOPROLOL TARTRATE 25 MG TABS 1/2 tablet twice a day METOPROLOL TARTRATE 34539320821 Active Prosper Arenas MD Active ASPIRIN 81 MG TAB 1 tablet by mouth daily ASPIRIN 68358451936 Active Prosper Arenas MD Active OMEPRAZOLE 20 MG CPDR 1 qd OMEPRAZOLE 03398131455 Active DARCIE Miller Active DOXYCYCLINE HYCLATE 100 MG CAPS take one capsule by mouth twice daily for ten days DOXYCYCLINE HYCLATE 28814659527 No Longer Active Mekhi Dukes MD Active DOXYCYCLINE HYCLATE 100 MG CAPS take one capsule by mouth twice daily for ten days DOXYCYCLINE HYCLATE 100 MG CAPS 0941165 DOXYCYCLINE HYCLATE Inactive HYDROCODONE-ACETAMINOPHEN 5-500 MG TABS [...] days 2014 ZITHROMAX Z-EDDIE 250 MG TABS 2450253 AZITHROMYCIN Inactive REVLIMID 25 MG CAPS one capsule daily for 21 days then off for 7 days 2014 REVLIMID 25 MG CAPS LENALIDOMIDE Inactive TRAZODONE HCL 50 MG TAB three tablets at bed time TRAZODONE HCL 50 MG TAB 945789 TRAZODONE HCL Inactive HALOPERIDOL 0.5 MG TABS one tablet three times a day HALOPERIDOL 0.5 MG TABS 309275 HALOPERIDOL Inactive BENZONATATE 200 MG CAPS 1 tab, 2-3 times a day BENZONATATE 200 MG CAPS 535751 BENZONATATE Inactive MECLIZINE HCL 25 MG TABS 1 daily needed for dizziness MECLIZINE HCL 25 MG TABS 133284 MECLIZINE HCL Inactive Immunizations Vaccine Administration Date [...] PANEL - Chemistry cholesterol, serum 156 mg/dL 540-582 2632/02/20 HDL cholesterol, serum 52 mg/dL > OR=40 [...] mg/dL Encounters Code Encounter Date Provider Facility CPT-17293 Level 3 New Patient 15:44:53 WATER TENDER Mekhi Dukes MD [facility] CPT-77140 Level 3 Est. Patient 14:53:34 WATER TENDER Prosper Arenas MD [facility] CPT-40712 Level 4 Est. Patient 10:05:41 WATER TENDER Moy PARISH [facility] CPT-82320 Level 3 Est. Patient 11:18:32 CDT Moy Garcia [facility] CPT-51345 Level 4 Est. Patient 11:05:10 CDT Moy Garcia [facility] CPT-69735 Level 3 Est. Patient 11:08:27 WATER TENDER Moy Garcia [facility] CPT-08721 Level 4 Est. Patient 10:43:59 CDT Prosper Arenas MD [facility] CPT-49218 Level 3 Est. Patient 10:51:19 [facility] 3 Est. Patient 10:20:31 [facility] CPT-93218 Level 3 Est. Patient 17:08:45 CDT [facility] CPT-09228 Level 2 Est. Patient 13:54:36 CDT Augustina Mata APRN [facility] CPT-25359 Level 3 Est. Patient 12:00:42 CDT Prosper Arenas MD [facility] CPT-35321 Level 3 Est. Patient 09:57:28 WATER TENDER [facility] CPT-63153 Level 3 Est. Patient 11:41:19 WATER TENDER Moy Garcia [facility] CPT-88529 Level 4 Est. Patient 17:07:35 [facility] CPT-59579 Level 5 Est. Patient 14:33:32 CDT Moy Wallacerex [facility] CPT-40810 Level 3 Est. Patient 12:25:35 CDT Prosper Arenas MD [facility] Procedures Code Procedure Name Date Entry Date Standard Description CPT-000 Give Appropriate Flu Vaccine 10:13:55 WATER TENDER CPT-000 Give Immunizations Due 10:13:55 WATER TENDER CPT-13105 HGBA1C - LAB USE ONLY 09:42:47 WATER TENDER CPT-72214 TPSA - LAB USE ONLY 09:42:46 WATER TENDER CPT-21575 Venipuncture Draw Fee 09:42:46 WATER TENDER CPT-40697 Port a cath flush 13:33:18 WATER TENDER CPT-65469 First Vx - Ix admin for Medicare patients 10:42:57 WATER TENDER CPT-53842 Fluzone Preservative Free Intramuscular Suspension 10:42 :57 WATER TENDER CPT-G0438 Initial Annual Wellness Exam 10:13:55 WATER TENDER CPT-000 Give Appropriate Flu Vaccine 10:44:04 CDT CPT-000 Give Pneumovax 10:44:03 CDT CPT-41849 Port a cath flush 17:04:43 CDT CPT-75961 Prevnar 13 11:19:17 CDT CPT-72389 Fluzone Quadrivalent preservative free (>=3yrs.) 11:19: 17 CDT CPT-86886 Immunization Each Additional Inj 11:19:17 CDT CPT-24394 Immunization Single Admin 11:19:17 CDT CPT-77526 Port a cath flush 13:28:22 CDT CPT-TCMM Transitional Care Mgmt-Moderate 13:40:15 CDT CPT-G0008 Administration of Influenza Virus Vaccine 13:59:20 CDT CPT-82145 Fluzone High-Dose Intramuscular Suspension 13:59:20 CDT CPT-30208 Venipuncture Draw Fee 09:56:19 CDT CPT-OV Office Visit 15:46:10 CDT
--- OUTSIDE RECORDS SUMMARY | 2017-08-25 21:31 | XMS REPORT | Clinical Summary ---
Author Author Admin, IWONA Organization [email or web address] Address Unknown Phone Unavailable Allergies, Adverse Reactions, Alerts Allergy Name Reaction Description Start Date Severity Status Provider ERYTHROMYCIN Stomach cramps Moderate Active Prosper Arenas MD CODEINE Critical Active Maliheh Ziglari WORK ORDER CLERK DARVOCET Critical Active Maliheh Ziglari WORK ORDER CLERK LEVAQUIN Critical Active Maliheh Ziglari WORK ORDER CLERK Conditions or Problems Problem Name Problem [...] type II, uncontrolled 250.02 Active Maliheh Ziglari WORK ORDER CLERK Diabetes mellitus 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, [...] or unspecified type, not stated as uncontrolled 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 INSULIN GLARGINE 76009407774 Active Maliheh Ziglari WORK ORDER CLERK Active MECLIZINE HCL 25 MG TABS 1 daily needed for dizziness MECLIZINE HCL 99711368018 No Longer Active Maleh Ziglari WORK ORDER CLERK Active ACCU-CHEK JOANNA PLUS STRP check blood sugars 3x a day GLUCOSE BLOOD 94896091942 Active Maliheh Ziglari WORK ORDER CLERK Active NOVOLOG FLEXPEN 100 UNIT/ML SOPN Take 25 units with each meal, add 2u/50 for blood sugars above 150. INSULIN ASPART 89335512153 [facility] WORK ORDER CLERK Active BENZONATATE 200 MG CAPS 1 tab, 2-3 times a day BENZONATATE 16191592863 No Longer Active Maleh Ziglari WORK ORDER CLERK Active HALOPERIDOL 0.5 MG TABS one tablet three times a day HALOPERIDOL 55919577142 No Longer Active Maleh Ziglari WORK ORDER CLERK Active TRAZODONE HCL 50 MG TAB three tablets at bed time TRAZODONE HCL 03557855818 No Longer Active [facility] Ziglari WORK ORDER CLERK Active REVLIMID 25 MG CAPS one capsule daily for 21 days then off for 7 days 2014 LENALIDOMIDE 75818020144 No Longer [facility] WORK ORDER CLERK Active ZITHROMAX Z-EDDIE 250 MG TABS 2 today, then 1 daily for 4 days 2014 AZITHROMYCIN 35396914929 No Longer Active Augustina Amritgunnar DIRECTOR BUSINESS MANAGEMENT Active NOVOLIN R RELION 100 UNIT/ML INJ SOLN 30- 40 units each meal sliding scale INSULIN REGULAR HUMAN 86830432715 No Longer Active Maleh Ziglari WORK ORDER CLERK Active LISINOPRIL 5 MG TABS 1 daily LISINOPRIL 41058648489 Active Prosper Arenas MD Active CALCIUM 500/D 500-200 MG-UNIT TABS one tablet daily CALCIUM CARBONATE- VITAMIN D 46654519991 Active Prosper Arenas MD Active HYDROCHLOROTHIAZIDE 25 MG TABS 1 tablet by mouth daily HYDROCHLOROTHIAZIDE 69641347137 Active Prosper Arenas MD Active HYDROCODONE-ACETAMINOPHEN 5-500 MG TABS 1-2 FOUR TIMES A DAY, PRN HYDROCODONE-ACETAMINOPHEN 91844753293 No Longer Active Prosper Arenas MD Active SIMVASTATIN 80 MG TABS 1/2 tablet daily SIMVASTATIN 00304127743 Active Prosper Arenas MD Active METOPROLOL TARTRATE 25 MG TABS 1/2 tablet twice a day METOPROLOL TARTRATE 32501347327 Active Prosper Arenas MD Active ASPIRIN 81 MG TAB 1 tablet by mouth daily ASPIRIN 85962200789 Active Prosper Arenas MD Active OMEPRAZOLE 20 MG CPDR 1 qd OMEPRAZOLE 92419192535 Active DARCIE Miller Active DOXYCYCLINE HYCLATE 100 MG CAPS take one capsule by mouth twice daily for ten days DOXYCYCLINE HYCLATE 73445726813 No Longer Active Mekhi Dukes MD Active DOXYCYCLINE HYCLATE 100 MG CAPS take one capsule by mouth twice daily for ten days DOXYCYCLINE HYCLATE 100 MG CAPS 9081142 DOXYCYCLINE HYCLATE Inactive HYDROCODONE-ACETAMINOPHEN 5-500 MG TABS [...] days 2014 ZITHROMAX Z-EDDIE 250 MG TABS 3311458 AZITHROMYCIN Inactive REVLIMID 25 MG CAPS one capsule daily for 21 days then off for 7 days 2014 REVLIMID 25 MG CAPS LENALIDOMIDE Inactive TRAZODONE HCL 50 MG TAB three tablets at bed time TRAZODONE HCL 50 MG TAB 705455 TRAZODONE HCL Inactive HALOPERIDOL 0.5 MG TABS one tablet three times a day HALOPERIDOL 0.5 MG TABS 922109 HALOPERIDOL Inactive BENZONATATE 200 MG CAPS 1 tab, 2-3 times a day BENZONATATE 200 MG CAPS 947625 BENZONATATE Inactive MECLIZINE HCL 25 MG TABS 1 daily needed for dizziness MECLIZINE HCL 25 MG TABS 363228 MECLIZINE HCL Inactive Immunizations Vaccine Administration Date [...] mg/dL Encounters Code Encounter Date Provider Facility CPT-79764 Level 3 Est. Patient 11:18:32 CDT [facility] CPT-69732 Level 4 Est. Patient 11:05:10 CDT [facility] CPT-50106 Level 3 Est. 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 Patient 10:43:59 CDT Prosper Arenas MD [facility] CPT-86416 Level 3 Est. Patient 10:51:19 CDT [facility] CPT-76283 Level 3 Est. Patient 10:20:31 CDT [facility] CPT-13280 Level 3 Est. Patient 17:08:45 CDT [facility] CPT-40227 Level 2 Est. Patient 13:54:36 CDT Augustina Mata APRN [facility] CPT-04972 Level 3 Est. Patient 12:00:42 CDT Prosper Arenas MD [facility] CPT-83332 Level 3 Est. Patient 09:57:28 CARAMEL CUTTER MACHINE [facility] CPT-61334 Level 3 Est. Patient 11:41:19 [facility] CPT-28209 Level 4 Est. Patient 17:07:35 [facility] CPT-93954 Level 5 Est. Patient 14:33:[facility] CPT-86037 Level 3 Est. Patient 12:25:35 CDT Prosper Arenas MD [facility] Procedures Code Procedure Name Date Entry Date Standard Description CPT-87157 HGBA1C - LAB USE ONLY 09:42:47 CARAMEL CUTTER MACHINE CPT-89544 TPSA - LAB USE ONLY 09:42:46 CARAMEL CUTTER MACHINE CPT-36579 Venipuncture Draw Fee 09:42:46 CARAMEL CUTTER MACHINE CPT-37308 Port a cath flush 13:33:18 CARAMEL CUTTER MACHINE CPT-82105 First Vx - Ix admin for Medicare patients 10:42:57 CARAMEL CUTTER MACHINE CPT-72447 Fluzone Preservative Free Intramuscular Suspension 10:42 :57 CARAMEL CUTTER MACHINE CPT-G0438 Initial Annual Wellness Exam 10:13:55 CARAMEL CUTTER MACHINE CPT-000 Give Appropriate Flu Vaccine 10:44:04 CDT CPT-000 Give Pneumovax 10:44:03 CDT CPT-56847 Port a cath flush 17:04:43 CDT CPT-88079 Prevnar 13 11:19:17 CDT CPT-32997 Fluzone Quadrivalent preservative free (>=3yrs.) 11:19: 17 CDT CPT-92808 Immunization Each Additional Inj 11:19:17 CDT CPT-25339 Immunization Single Admin 11:19:17 CDT CPT-69499 Port a cath flush 13:28:22 CDT CPT-TCMM Transitional Care Mgmt-Moderate 13:40:15 CDT CPT-G0008 Administration of Influenza Virus Vaccine 13:59:20 CDT CPT-97374 Fluzone High-Dose Intramuscular Suspension 13:59:20 CDT CPT-18965 Venipuncture Draw Fee 09:56:19 CDT CPT-OV Office Visit 15:46:10 CDT
--- OUTSIDE RECORDS SUMMARY | 2017-08-25 21:32 | XMS REPORT | Clinical Summary ---
Author Author Admin, IWONA Organization [employer] Address Unknown Phone Unavailable Allergies, Adverse Reactions, Alerts Allergy Name Reaction Description Start Date Severity Status Provider ERYTHROMYCIN Stomach cramps Moderate Active Prosper Arenas MD CODEINE Critical Active Maliheh Ziglari AIR CONDITIONING SERVICE TECHNICIAN DARVOCET Critical Active Maliheh Ziglari AIR CONDITIONING SERVICE TECHNICIAN LEVAQUIN Critical Active Maliheh Ziglari AIR CONDITIONING SERVICE TECHNICIAN Conditions or Problems Problem Name Problem [...] type II, uncontrolled 250.02 Active Maliheh Ziglari AIR CONDITIONING SERVICE TECHNICIAN Diabetes mellitus 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, [...] or unspecified type, not stated as uncontrolled 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 INSULIN GLARGINE 77795888972 Active Maliheh Ziglari AIR CONDITIONING SERVICE TECHNICIAN Active MECLIZINE HCL 25 MG TABS 1 daily needed for dizziness MECLIZINE HCL 06930740846 No Longer Active Maleh Ziglari AIR CONDITIONING SERVICE TECHNICIAN Active ACCU-CHEK JOANNA PLUS STRP check blood sugars 3x a day GLUCOSE BLOOD 17560608143 Active Maliheh Ziglari AIR CONDITIONING SERVICE TECHNICIAN Active NOVOLOG FLEXPEN 100 UNIT/ML SOPN Take 25 units with each meal, add 2u/50 for blood sugars above 150. INSULIN ASPART 55417196258 [facility] Ziglari AIR CONDITIONING SERVICE TECHNICIAN Active BENZONATATE 200 MG CAPS 1 tab, 2-3 times a day BENZONATATE 97597254353 No Longer Active Maleh Ziglari AIR CONDITIONING SERVICE TECHNICIAN Active HALOPERIDOL 0.5 MG TABS one tablet three times a day HALOPERIDOL 32285956363 No Longer Active Maleh Ziglari AIR CONDITIONING SERVICE TECHNICIAN Active TRAZODONE HCL 50 MG TAB three tablets at bed time TRAZODONE HCL 49183563552 No Longer Active [facility] Ziglari AIR CONDITIONING SERVICE TECHNICIAN Active REVLIMID 25 MG CAPS one capsule daily for 21 days then off for 7 days 2014 LENALIDOMIDE 40525336408 No Longer [facility] Ziglari AIR CONDITIONING SERVICE TECHNICIAN Active ZITHROMAX Z-EDDIE 250 MG TABS 2 today, then 1 daily for 4 days 2014 AZITHROMYCIN 14443570153 No Longer Active Augustina Amritgunnar DANCING INSTRUCTOR Active NOVOLIN R RELION 100 UNIT/ML INJ SOLN 30- 40 units each meal sliding scale INSULIN REGULAR HUMAN 79605690808 No Longer Active Maleh Ziglari AIR CONDITIONING SERVICE TECHNICIAN Active LISINOPRIL 5 MG TABS 1 daily LISINOPRIL 54884251570 Active Prosper Arenas MD Active CALCIUM 500/D 500-200 MG-UNIT TABS one tablet daily CALCIUM CARBONATE- VITAMIN D 91126125130 Active Prosper Arenas MD Active HYDROCHLOROTHIAZIDE 25 MG TABS 1 tablet by mouth daily HYDROCHLOROTHIAZIDE 28444775133 Active Prosper Arenas MD Active HYDROCODONE-ACETAMINOPHEN 5-500 MG TABS 1-2 FOUR TIMES A DAY, PRN HYDROCODONE-ACETAMINOPHEN 88861564138 No Longer Active Prosper Arenas MD Active SIMVASTATIN 80 MG TABS 1/2 tablet daily SIMVASTATIN 56674204728 Active Prosper Arenas MD Active METOPROLOL TARTRATE 25 MG TABS 1/2 tablet twice a day METOPROLOL TARTRATE 33007356322 Active Prosper Arenas MD Active ASPIRIN 81 MG TAB 1 tablet by mouth daily ASPIRIN 69343122544 Active Prosper Arenas MD Active OMEPRAZOLE 20 MG CPDR 1 qd OMEPRAZOLE 30664581788 Active DARCIE Miller Active DOXYCYCLINE HYCLATE 100 MG CAPS take one capsule by mouth twice daily for ten days DOXYCYCLINE HYCLATE 96139562026 No Longer Active Mekhi Dukes MD Active DOXYCYCLINE HYCLATE 100 MG CAPS take one capsule by mouth twice daily for ten days DOXYCYCLINE HYCLATE 100 MG CAPS 9107368 DOXYCYCLINE HYCLATE Inactive HYDROCODONE-ACETAMINOPHEN 5-500 MG TABS [...] days 2014 ZITHROMAX Z-EDDIE 250 MG TABS 0205033 AZITHROMYCIN Inactive REVLIMID 25 MG CAPS one capsule daily for 21 days then off for 7 days 2014 REVLIMID 25 MG CAPS LENALIDOMIDE Inactive TRAZODONE HCL 50 MG TAB three tablets at bed time TRAZODONE HCL 50 MG TAB 755232 TRAZODONE HCL Inactive HALOPERIDOL 0.5 MG TABS one tablet three times a day HALOPERIDOL 0.5 MG TABS 428847 HALOPERIDOL Inactive BENZONATATE 200 MG CAPS 1 tab, 2-3 times a day BENZONATATE 200 MG CAPS 998937 BENZONATATE Inactive MECLIZINE HCL 25 MG TABS 1 daily needed for dizziness MECLIZINE HCL 25 MG TABS 225509 MECLIZINE HCL Inactive Immunizations Vaccine Administration Date [...] mg/dL Encounters Code Encounter Date Provider Facility CPT-83371 Level 3 Est. Patient 11:18:32 CDT [facility] CPT-37770 Level 4 Est. Patient 11:05:10 CDT [facility] CPT-28284 Level 3 Est. 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 Patient 10:43:59 CDT Prosper Arenas MD [facility] CPT-59011 Level 3 Est. Patient 10:51:19 CDT [facility] CPT-73599 Level 3 Est. Patient 10:20:31 CDT [facility] CPT-90618 Level 3 Est. Patient 17:08:45 CDT [facility] CPT-49389 Level 2 Est. Patient 13:54:36 CDT Augustina Mata APRN [facility] CPT-57813 Level 3 Est. Patient 12:00:42 CDT Prosper Arenas MD [facility] CPT-32708 Level 3 Est. Patient 09:57:28 FOOD COUNTER WORKER [facility] CPT-11458 Level 3 Est. Patient 11:41:19 FOOD COUNTER WORKER [facility] CPT-16746 Level 4 Est. Patient 17:07:35 FOOD COUNTER WORKER [facility] CPT-93249 Level 5 Est. Patient 14:33:32 CDT [facility] CPT-89943 Level 3 Est. Patient 12:25:35 CDT Prosper Arenas MD [facility] Procedures Code Procedure Name Date Entry Date Standard Description CPT-61835 Port a cath flush 13:33:18 FOOD COUNTER WORKER CPT-97780 First Vx - Ix admin for Medicare patients 10:42:57 FOOD COUNTER WORKER CPT-98192 Fluzone Preservative Free Intramuscular Suspension 10:42 :57 FOOD COUNTER WORKER CPT-G0438 Initial Annual Wellness Exam 10:13:55 FOOD COUNTER WORKER CPT-000 Give Appropriate Flu Vaccine 10:44:04 CDT CPT-000 Give Pneumovax 10:44:03 CDT CPT-61156 Port a cath flush 17:04:43 CDT CPT-94392 Prevnar 13 11:19:17 CDT CPT-07687 Fluzone Quadrivalent preservative free (>=3yrs.) 11:19: 17 CDT CPT-05767 Immunization Each Additional Inj 11:19:17 CDT CPT-64167 Immunization Single Admin 11:19:17 CDT CPT-90853 Port a cath flush 13:28:22 CDT CPT-TCMM Transitional Care Mgmt-Moderate 13:40:15 CDT CPT-G0008 Administration of Influenza Virus Vaccine 13:59:20 CDT CPT-59315 Fluzone High-Dose Intramuscular Suspension 13:59:20 CDT CPT-09089 Venipuncture Draw Fee 09:56:19 CDT CPT-OV Office Visit 15:46:10 CDT
--- OUTSIDE RECORDS SUMMARY | 2017-08-25 21:33 | XMS REPORT | Clinical Summary ---
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, type II [...] type II, uncontrolled 250.02 Active Maliheh Rodrigoglari HEADMASTER/MISTRESS Diabetes mellitus 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, type [...] with hyperglycemia 250.00 Active 03/21 Maliheh Ziglari HEADMASTER/MISTRESS Diabetes mellitus 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, type II or unspecified type, not stated as uncontrolled FPC use of insulin treatment V58.67 Active Luxiheh Rodrigoglari HEADMASTER/MISTRESS Long-term (current) use of insulin Diabetes mellitus, type II with hypoglycemia 250.80 Active 07/22 Maliheh Ziglari HEADMASTER/MISTRESS Diabetes mellitus with other specified manifestations, type II or unspecified type, not stated as uncontrolled 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 Maliheh Ziglari HEADMASTER/MISTRESS Diabetes mellitus with renal manifestations, type II or unspecified type, not stated as uncontrolled Wellness exam V70.0 Active Dee Palmer APRN Routine general medical examination at a health care facility Fitting and adjustment of vascular catheter V58.81 Active 02/06 Dee Palmer APRN Encounter for fitting and adjustment of vascular catheter Unawareness of hypoglycemia in diabetes mellitus, type II 250.80 Active Maliheh Ziglari HEADMASTER/MISTRESS Diabetes mellitus with other specified manifestations, type [...] MG ORAL TABLET 1/2 tablet daily SIMVASTATIN [id number] No Longer Active Mekhi Dukes MD Active OMEPRAZOLE 20 MG ORAL CAPSULE DELAYED RELEASE 1 qd OMEPRAZOLE [id number] No Longer Active Mekhi Dukes MD Active METOPROLOL TARTRATE 25 MG ORAL TABLET 1/2 tablet twice a day METOPROLOL TARTRATE 90314867390 No Longer Active Mekhi Dukes MD Active LISINOPRIL 5 MG ORAL TABLET 1 daily LISINOPRIL 51399870007 No Longer Active Mekhi Dukes MD Active NOVOLOG FLEXPEN 100 UNIT/ML SUBCUTANEOUS SOLUTION PEN-INJECTOR Take 8 units with each meal, add 1u/50 for blood sugars above 150. INSULIN ASPART 53800798325 Active Moy PARISH Active GABAPENTIN 300 MG ORAL CAPSULE 1 tab BID GABAPENTIN 99046027338 Active Tami Miller RN Active PREDNISONE 20 MG ORAL TABLET Take 2 daily for 3 days and then 1 daily for 3 days PREDNISONE 61654737497 No Longer Active Moy PARISH Active BENZONATATE 200 MG ORAL CAPSULE Take 1 tablet 3 times a day as needed for cough BENZONATATE 07072603774 No Longer Active Prosper Arenas MD Active HYDROCHLOROTHIAZIDE 25 MG ORAL TABLET 1 tablet by mouth daily HYDROCHLOROTHIAZIDE 52051657335 No Longer Active Prosper Arenas MD Active ACCU-CHEK JOANNA PLUS IN VITRO STRIP check blood sugars 5x a day, before each meal and bedtime and 15 minutes after treating a low blood. sugar GLUCOSE BLOOD 21329404462 Active Malpapo Wallaceglrex PARISH Active LANTUS SOLOSTAR 100 UNIT/ML SUBCUTANEOUS SOLUTION PEN-INJECTOR Take 40 units at 7-8pm daily INSULIN GLARGINE 95573251368 Active Moy Ziglari HEADMASTER/MISTRESS Active MECLIZINE HCL 25 MG ORAL TABLET 1 daily needed for dizziness 2015 MECLIZINE HCL 79879106123 No Longer Active Maleh Ziglari HEADMASTER/MISTRESS Active BENZONATATE 200 MG ORAL CAPSULE 1 tab, 2-3 times a day BENZONATATE 62840335052 No Longer Active [facility] Ziglari HEADMASTER/MISTRESS Active HALOPERIDOL 0.5 MG ORAL TABLET one tablet three times a day HALOPERIDOL 59496307068 No Longer Active [facility] Ziglari HEADMASTER/MISTRESS Active TRAZODONE HCL 50 MG ORAL TABLET three tablets at bed time TRAZODONE HCL 25869992356 No Longer Active [facility] Ziglari HEADMASTER/MISTRESS Active REVLIMID 25 MG ORAL CAPSULE one capsule daily for 21 days then off for 7 days LENALIDOMIDE 72950736401 No Longer Active [facility] Ziglari HEADMASTER/MISTRESS Active ZITHROMAX Z-EDDIE 250 MG ORAL TABLET 2 today, then 1 daily for 4 days AZITHROMYCIN 60071373577 No Longer Active Augustina Adolfo DOHERTY Active NOVOLIN R RELION 100 UNIT/ML INJECTION SOLUTION 30- 40 units each meal sliding scale INSULIN REGULAR HUMAN 82572675642 No Longer Active Moy Rodrigoglari HEADMASTER/MISTRESS Active CALCIUM 500/D 500-200 MG-UNIT ORAL TABLET one tablet daily CALCIUM CARBONATE-VITAMIN D 30347228077 Active Prosper Aernas MD Active HYDROCODONE-ACETAMINOPHEN 5-500 MG ORAL TABLET 1-2 FOUR TIMES A DAY, PRN 2010 HYDROCODONE-ACETAMINOPHEN 57100977621 No Longer Active Prosper Arenas MD Active ASPIRIN 81 MG ORAL TABLET 1 tablet by mouth daily ASPIRIN 79712495082 Active Prosper Arenas MD Active DOXYCYCLINE HYCLATE 100 MG ORAL CAPSULE take one capsule by mouth twice daily for ten days DOXYCYCLINE HYCLATE 58211497696 No Longer Active Mekhi Dukes MD Active DOXYCYCLINE HYCLATE 100 MG ORAL CAPSULE take one capsule by mouth twice daily for ten days DOXYCYCLINE HYCLATE 100 MG ORAL CAPSULE 3506295 DOXYCYCLINE HYCLATE Inactive HYDROCODONE-ACETAMINOPHEN 5-500 MG ORAL TABLET 1-2 FOUR TIMES A DAY, PRN 2010 HYDROCODONE-ACETAMINOPHEN 5-500 MG ORAL TABLET 501421 HYDROCODONE-ACETAMINOPHEN Inactive NOVOLIN R RELION 100 UNIT/ML INJECTION SOLUTION 30- 40 units each meal sliding scale NOVOLIN R RELION 100 UNIT/ML INJECTION SOLUTION INSULIN REGULAR HUMAN Inactive ZITHROMAX Z-EDDIE 250 MG ORAL TABLET 2 today, then 1 daily for 4 days ZITHROMAX Z-EDDIE 250 MG ORAL TABLET 633071 AZITHROMYCIN Inactive REVLIMID 25 MG ORAL CAPSULE one capsule daily for 21 days then off for 7 days REVLIMID 25 MG ORAL CAPSULE LENALIDOMIDE Inactive TRAZODONE HCL 50 MG ORAL TABLET three tablets at bed time TRAZODONE HCL 50 MG ORAL TABLET 669157 TRAZODONE HCL Inactive HALOPERIDOL 0.5 MG ORAL TABLET one tablet three times a day HALOPERIDOL 0.5 MG ORAL TABLET 794304 HALOPERIDOL Inactive BENZONATATE 200 MG ORAL CAPSULE 1 tab, 2-3 times a day BENZONATATE 200 MG ORAL CAPSULE 396902 BENZONATATE Inactive MECLIZINE HCL 25 MG ORAL TABLET 1 daily needed for dizziness 2015 MECLIZINE HCL 25 MG ORAL TABLET 998303 MECLIZINE HCL Inactive HYDROCHLOROTHIAZIDE 25 MG ORAL TABLET 1 tablet by mouth daily HYDROCHLOROTHIAZIDE 25 MG ORAL TABLET 221963 HYDROCHLOROTHIAZIDE Inactive PREDNISONE 20 MG ORAL TABLET Take 2 daily for 3 days and then 1 daily for 3 days PREDNISONE 20 MG ORAL TABLET 464890 PREDNISONE Inactive LISINOPRIL 5 MG ORAL TABLET 1 daily LISINOPRIL 5 MG ORAL TABLET 743550 LISINOPRIL Inactive METOPROLOL TARTRATE 25 MG ORAL TABLET 1/2 tablet twice a day METOPROLOL TARTRATE 25 MG ORAL TABLET 124629 METOPROLOL TARTRATE Inactive OMEPRAZOLE 20 MG ORAL CAPSULE DELAYED RELEASE 1 qd OMEPRAZOLE 20 MG ORAL CAPSULE DELAYED RELEASE 469772 OMEPRAZOLE Inactive SIMVASTATIN 80 MG ORAL TABLET 1/2 tablet daily SIMVASTATIN 80 MG ORAL TABLET 226454 SIMVASTATIN Inactive BENZONATATE 200 MG ORAL CAPSULE Take 1 tablet 3 times a day as needed for cough BENZONATATE 200 MG ORAL CAPSULE 252013 BENZONATATE Inactive Immunizations Vaccine Administration Date Value [...] W/DIFF - Chemistry sodium, serum 137 mmol/L 063-833 2564/08/16 carbon dioxide, venous blood 26.3 mmol/L 21.0-32.0 [...] LABS - Chemistry cholesterol, serum 115 mg/dL 333-390 7809/08/18 triglyceride, serum, fasting 89 mg/dL 30-200 HDL cholesterol, serum 46 mg/dL 32-60 LDL cholesterol, serum 51 mg/dL 0-130 blood glucose 104 mg/dL 65-110 Lab Report: LIPID PANEL- REPOWER LAB - Chemistry cholesterol, serum 156 mg/dL [phone]/02/20 HDL cholesterol, serum 52 mg/dL > OR=40 [...] mg/dL Encounters Code Encounter Date Provider Facility CPT-98693 Level 3 Est. Patient 17:11:55 CHILD CARE COORDINATOR Ismael Gracia MD [facility] CPT-07324 Level 4 Est. Patient 16:29:19 CDT Mekhi Dukes MD [facility] CPT-13699 Level 3 New Patient 17:05:24 CDT Isamel Gracia MD [facility] CPT-21984 Level 2 Est. Patient 15:43:17 CDT Mekhi Dukes MD [facility] CPT-88864 Level 3 Est. Patient 09:30:37 CDT Maliheh Ziglari [facility]-35668 Level 3 Est. Patient 10:00:14 CDT Mekhi Dukes MD [facility] CPT-84563 Level 3 Est. Patient 12:24:09 CDT Moy Garcia [facility]-00658 Level 3 Est. Patient 14:34:57 CDT Prosper Arenas MD [facility] CPT-82289 Level 3 New Patient 15:44:53 CHILD CARE COORDINATOR Mekhi Dukes MD [facility]-32796 Level 3 Est. Patient 14:53:34 CHILD CARE COORDINATOR Prosper Arenas MD [facility] CPT-49870 Level 4 Est. Patient 10:05:41 CHILD CARE COORDINATOR Moy Rodrigokymrex [facility]-28815 Level 3 Est. [facility]18[facility]-50619 Level 4 Est. Patient 11:05:10 CDT Moy Garcia [facility] CPT-37075 Level 3 Est. Patient 11:08:27 CHILD CARE COORDINATOR Moy Garcia [facility] CPT-39768 Level 4 Est. Patient 10:43:59 CDT Prosper Arenas MD [facility] CPT-89374 Level 3 Est. Patient 10:51:19 CDT Moy Garcia [facility] CPT-20200 Level 3 Est. Patient 10:20:31 CDT Moy Garcia [facility] CPT-70250 Level 3 Est. Patient 17:08:45 CDT Moy Garcia [facility] CPT-06420 Level 2 Est. Patient 13:54:36 CDT Augustina Mata APRN [facility] CPT-64921 Level 3 Est. Patient 12:00:42 CDT Prosper Arenas MD [facility] CPT-26549 Level 3 Est. Patient 09:57:28 CHILD CARE COORDINATOR Moy Garcia [facility] CPT-60668 Level 3 Est. Patient 11:41:19 CHILD CARE COORDINATOR Moy Garcia [facility] CPT-91156 Level 4 Est. Patient 17:07:35 CHILD CARE COORDINATOR Moy Garcia [facility] CPT-58785 Level 5 Est. Patient 14:33:32 CDT Moy Wallacerex [facility] CPT-00787 Level 3 Est. Patient 12:25:35 CDT Prosper Arenas MD [facility] Procedures Code Procedure Name Date Entry Date Standard Description CPT-G0439 Subsequent Annual Wellness Exam 08:39:41 CHILD CARE COORDINATOR CPT-000 Give Appropriate Flu Vaccine 10:13:55 CHILD CARE COORDINATOR CPT-000 Give Immunizations Due 10:13:55 CHILD CARE COORDINATOR CPT-32654 HGBA1C - LAB USE ONLY 09:42:47 CHILD CARE COORDINATOR CPT-06031 TPSA - LAB USE ONLY 09:42:46 CHILD CARE COORDINATOR CPT-39985 Venipuncture Draw Fee 09:42:46 CHILD CARE COORDINATOR CPT-58889 Port a cath flush 13:33:18 CHILD CARE COORDINATOR CPT-21676 First Vx - Ix admin for Medicare patients 10:42:57 CHILD CARE COORDINATOR CPT-23087 Fluzone Preservative Free Intramuscular Suspension 10:42 :57 CHILD CARE COORDINATOR CPT-G0438 Initial Annual Wellness Exam 10:13:55 CHILD CARE COORDINATOR CPT-000 Give Appropriate Flu Vaccine 10:44:04 CDT CPT-000 Give Pneumovax 10:44:03 CDT CPT-00936 Port a cath flush 17:04:43 CDT CPT-19249 Prevnar 13 11:19:17 CDT CPT-54526 Fluzone Quadrivalent preservative free (>=3yrs.) 11:19: 17 CDT CPT-17116 Immunization Each Additional Inj 11:19:17 CDT CPT-99841 Immunization Single Admin 11:19:17 CDT CPT-62654 Port a cath flush 13:28:22 CDT CPT-TCMM Transitional Care Mgmt-Moderate 13:40:15 CDT CPT-G0008 Administration of Influenza Virus Vaccine 13:59:20 CDT CPT-64255 Fluzone High-Dose Intramuscular Suspension 13:59:20 CDT CPT-79574 Venipuncture Draw Fee 09:56:19 CDT CPT-OV Office Visit 15:46:10 CDT
--- OUTSIDE RECORDS SUMMARY | 2017-08-25 21:34 | XMS REPORT | Clinical Summary ---
Author Author Admin, Kaylynn Organization [facility] [place] Address Unknown Phone Unavailable Allergies, Adverse Reactions, Alerts Allergy Name Reaction Description Start Date Severity Status Provider ERYTHROMYCIN Stomach cramps Moderate Active Prosper Arenas MD CODEINE Critical Active Maliheh Ziglari KNIFE GRINDER DARVOCET Critical Active Maliheh Ziglari KNIFE GRINDER LEVAQUIN Critical Active Maliheh Ziglari KNIFE GRINDER Conditions or Problems Problem Name Problem Code Onset Date Status Entry Date Provider Comment Standard Description Annotate Diabetes, Type 2 250.00 Resolved Tami Miller grocery stocker mellitus 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, type II [...] type II, uncontrolled 250.02 Active Maliheh Ziglari KNIFE GRINDER Diabetes mellitus 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, type [...] with hyperglycemia 250.00 Active 03/21 Maliheh Ziglari KNIFE GRINDER Diabetes mellitus 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, type II or unspecified type, not stated as uncontrolled [facility] use of insulin treatment V58.67 Active Luxiheh Rodrigoglari KNIFE GRINDER Long-term (current) use of insulin Diabetes mellitus, type II with hypoglycemia 250.80 Active 07/22 Maliheh Ziglari KNIFE GRINDER Diabetes mellitus with other specified manifestations, type II or unspecified type, not stated as uncontrolled 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 Maliheh Ziglari KNIFE GRINDER Diabetes mellitus with renal manifestations, type II or unspecified type, not stated as uncontrolled Wellness exam V70.0 Active Dee Palmer APRN Routine general medical examination at a health care facility Fitting and adjustment of vascular catheter V58.81 Active 02/06 Dee Palmer APRN Encounter for fitting and adjustment of vascular catheter Unawareness of hypoglycemia in diabetes mellitus, type II 250.80 Active Maliheh Rodrigoglari KNIFE GRINDER Diabetes mellitus with other specified manifestations, type [...] specified as recurrent) Gastritis Inactive Maliheh Jose KNIFE GRINDER Unspecified gastritis and gastroduodenitis, 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 [...] Dukes MD Gastritis Inactive Janis Puente LPN Diabetes, Type 2 ICD-250.00 Inactive Mekhi Dukes MD Medication List Medication Instructions Start Date Stop Date Generic Name NDC Status Provider Patient Instruction AZITHROMYCIN 250 MG ORAL TABLET 2 po qd x 1 day, then 1 po qd x 4 days 05/07 AZITHROMYCIN 80228748485 No Longer Active Dee Palmer APRN Active GUAIFENESIN DM 400-20 MG ORAL TABLET 1 pill by mouth twice daily, if needed for cough DEXTROMETHORPHAN-GUAIFENESIN 72245399847 Active Dee Palmer APRN Active PREDNISONE 20 MG ORAL TABLET 2 tabs daily for 4 days, 1 tab daily for 4 days, 1/2 tab daily for 4 days PREDNISONE 36495679734 Active Dee Palmer APRN Active ASPIRIN 81 MG ORAL TABLET 1 po qd ASPIRIN 93948849434 Active Dee Palmer APRN Active CALCIUM 500/D 500-200 MG-UNIT ORAL TABLET one tablet daily CALCIUM CARBONATE-VITAMIN D 01918261947 No Longer Active Jillvito Barkleyngoc TYING MACHINE OPERATOR Active HYDROCODONE-ACETAMINOPHEN 7.5-325 MG ORAL TABLET 1-2 every 4-6 hrs prn 02/25 HYDROCODONE-ACETAMINOPHEN 47104878278 Active Marina Messina TYING MACHINE OPERATOR Active ASPIRIN 81 MG ORAL TABLET 1 tablet by mouth daily ASPIRIN 54015459847 No Longer Active Marina Messina TYING MACHINE OPERATOR Active SIMVASTATIN 80 MG ORAL TABLET 1/2 tablet daily SIMVASTATIN 06626181830 No Longer Active Mekhi Dukes MD Active OMEPRAZOLE 20 MG ORAL CAPSULE DELAYED RELEASE 1 qd OMEPRAZOLE 93932930601 No Longer Active Mekhi Dukes MD Active METOPROLOL TARTRATE 25 MG ORAL TABLET 1/2 tablet twice a day METOPROLOL TARTRATE 55524966482 No Longer Active Mekhi Dukes MD Active LISINOPRIL 5 MG ORAL TABLET 1 daily LISINOPRIL 75733255409 No Longer Active Mekhi Dukes MD Active NOVOLOG FLEXPEN 100 UNIT/ML SUBCUTANEOUS SOLUTION PEN-INJECTOR Take 8 units with each meal, add 1u/50 for blood sugars above 150. INSULIN ASPART 54190155265 Active Moy PARISH Active GABAPENTIN 300 MG ORAL CAPSULE 1 tab BID GABAPENTIN 23156367071 Active Tami Miller RN Active PREDNISONE 20 MG ORAL TABLET Take 2 daily for 3 days and then 1 daily for 3 days PREDNISONE 41893831933 No Longer Active Moy PARISH Active BENZONATATE 200 MG ORAL CAPSULE Take 1 tablet 3 times a day as needed for cough BENZONATATE 28139187417 No Longer Active Prosper Arenas MD Active HYDROCHLOROTHIAZIDE 25 MG ORAL TABLET 1 tablet by mouth daily HYDROCHLOROTHIAZIDE 76871402456 No Longer Active Prosper Arenas MD Active ACCU-CHEK JOANNA PLUS IN VITRO STRIP check blood sugars 5x a day, before each meal and bedtime and 15 minutes after treating a low blood. sugar GLUCOSE BLOOD 91900077091 Active Moy Wallaceglrex PARISH Active LANTUS SOLOSTAR 100 UNIT/ML SUBCUTANEOUS SOLUTION PEN-INJECTOR Take 40 units at 7-8pm daily INSULIN GLARGINE 09766659622 Active Maliheh Ziglari KNIFE GRINDER Active MECLIZINE HCL 25 MG ORAL TABLET 1 daily needed for dizziness 2015 MECLIZINE HCL 22751506918 No Longer Active Maliheh Ziglari KNIFE GRINDER Active BENZONATATE 200 MG ORAL CAPSULE 1 tab, 2-3 times a day BENZONATATE 55408854220 No Longer Active Maliheh Ziglari KNIFE GRINDER Active HALOPERIDOL 0.5 MG ORAL TABLET one tablet three times a day HALOPERIDOL 49286305587 No Longer Active Maliheh Ziglari KNIFE GRINDER Active TRAZODONE HCL 50 MG ORAL TABLET three tablets at bed time TRAZODONE HCL 26578008301 No Longer Active Maleh Ziglari KNIFE GRINDER Active REVLIMID 25 MG ORAL CAPSULE one capsule daily for 21 days then off for 7 days LENALIDOMIDE 65620095666 No Longer Active Maleh Ziglari KNIFE GRINDER Active ZITHROMAX Z-EDDIE 250 MG ORAL TABLET 2 today, then 1 daily for 4 days AZITHROMYCIN 93808996634 No Longer Active Augustina Mata APRN Active NOVOLIN R RELION 100 UNIT/ML INJECTION SOLUTION 30- 40 units each meal sliding scale INSULIN REGULAR HUMAN 54234023885 No Longer Active Maleh Ziglari KNIFE GRINDER Active HYDROCODONE-ACETAMINOPHEN 5-500 MG ORAL TABLET 1-2 FOUR TIMES A DAY, PRN 2010 HYDROCODONE-ACETAMINOPHEN 99389384011 No Longer Active Prosper Arenas MD Active DOXYCYCLINE HYCLATE 100 MG ORAL CAPSULE take one capsule by mouth twice daily for ten days DOXYCYCLINE HYCLATE 49834555749 No Longer Active Mekhi Dukes MD Active DOXYCYCLINE HYCLATE 100 MG ORAL CAPSULE take one capsule by mouth twice daily for ten days DOXYCYCLINE HYCLATE 100 MG ORAL CAPSULE 2039829 DOXYCYCLINE HYCLATE Inactive HYDROCODONE-ACETAMINOPHEN 5-500 MG ORAL TABLET 1-2 FOUR TIMES A DAY, PRN 2010 HYDROCODONE-ACETAMINOPHEN 5-500 MG ORAL TABLET 576641 HYDROCODONE-ACETAMINOPHEN Inactive NOVOLIN R RELION 100 UNIT/ML INJECTION SOLUTION 30- 40 units each meal sliding scale NOVOLIN R RELION 100 UNIT/ML INJECTION SOLUTION INSULIN REGULAR HUMAN Inactive ZITHROMAX Z-EDDIE 250 MG ORAL TABLET 2 today, then 1 daily for 4 days ZITHROMAX Z-EDDIE 250 MG ORAL TABLET 139323 AZITHROMYCIN Inactive REVLIMID 25 MG ORAL CAPSULE one capsule daily for 21 days then off for 7 days REVLIMID 25 MG ORAL CAPSULE LENALIDOMIDE Inactive TRAZODONE HCL 50 MG ORAL TABLET three tablets at bed time TRAZODONE HCL 50 MG ORAL TABLET 934717 TRAZODONE HCL Inactive HALOPERIDOL 0.5 MG ORAL TABLET one tablet three times a day HALOPERIDOL 0.5 MG ORAL TABLET 863695 HALOPERIDOL Inactive BENZONATATE 200 MG ORAL CAPSULE 1 tab, 2-3 times a day BENZONATATE 200 MG ORAL CAPSULE 097013 BENZONATATE Inactive MECLIZINE HCL 25 MG ORAL TABLET 1 daily needed for dizziness 2015 MECLIZINE HCL 25 MG ORAL TABLET 271367 MECLIZINE HCL Inactive HYDROCHLOROTHIAZIDE 25 MG ORAL TABLET 1 tablet by mouth daily HYDROCHLOROTHIAZIDE 25 MG ORAL TABLET 606602 HYDROCHLOROTHIAZIDE Inactive PREDNISONE 20 MG ORAL TABLET Take 2 daily for 3 days and then 1 daily for 3 days PREDNISONE 20 MG ORAL TABLET 250822 PREDNISONE Inactive LISINOPRIL 5 MG ORAL TABLET 1 daily LISINOPRIL 5 MG ORAL TABLET 536582 LISINOPRIL Inactive METOPROLOL TARTRATE 25 MG ORAL TABLET 1/2 tablet twice a day METOPROLOL TARTRATE 25 MG ORAL TABLET 134635 METOPROLOL TARTRATE Inactive OMEPRAZOLE 20 MG ORAL CAPSULE DELAYED RELEASE 1 qd OMEPRAZOLE 20 MG ORAL CAPSULE DELAYED RELEASE 514627 OMEPRAZOLE Inactive SIMVASTATIN 80 MG ORAL TABLET 1/2 tablet daily SIMVASTATIN 80 MG ORAL TABLET 837615 SIMVASTATIN Inactive ASPIRIN 81 MG ORAL TABLET 1 tablet by mouth daily ASPIRIN 81 MG ORAL TABLET 360860 ASPIRIN Inactive CALCIUM 500/D 500-200 MG-UNIT ORAL TABLET one tablet daily CALCIUM 500/D 500-200 MG-UNIT ORAL TABLET CALCIUM CARBONATE-VITAMIN D Inactive BENZONATATE 200 MG ORAL CAPSULE Take 1 tablet 3 times a day as needed for cough BENZONATATE 200 MG ORAL CAPSULE 659340 BENZONATATE Inactive AZITHROMYCIN 250 MG ORAL TABLET 2 po qd x 1 day, then 1 po qd x 4 days 05/07 AZITHROMYCIN 250 MG ORAL TABLET 556932 AZITHROMYCIN Inactive Immunizations Vaccine Administration Date Value [...] Measured blood pressure, diastolic 60 mm[Hg] BP chavze blood pressure, systolic 130 mm[Hg] BP sys [...] % 11.6-14.8 platelet count 294 10^3/MM^3 10*3/mm3 023-173 9000/05/29 leukocyte count, blood 2.4 10^3/MM^3 10*3/mm3 4.6-10.2 neutrophils as percent of blood leukocytes 57.2 % 42.2-75.2 monocytes as percent of blood leukocytes 22.3 % 1.7-9.3 lymphocytes as percent of blood leukocytes 18.8 % 20.5-51.1 erythrocyte (RBC) count 4.21 10^6/MM^3 10*6/mm3 4.50-6.50 hemoglobin, blood 13.9 g/dL 14.0-18.0 hematocrit, blood 41.7 % 40.0-54.0 mean corpuscular volume, RBC 99 fL 80-97 mean corpuscular hemoglobin, RBC 33.1 pg 27.0-31.2 mean corpuscular hemoglobin concentration, RBC 33.4 G/DL % 31.8- 35.4 red blood cell distribution width 12.6 % 11.6-14.8 platelet count 138 10^3/MM^3 10*3/mm3 142-424 Lab Report: CBC W/DIFF, Comp. Metabolic Panel - Chemistry sodium, serum 139 mmol/L 901-715 9108/05/01 carbon dioxide, venous blood 25.2 mmol/L 21.0-32.0 potassium, serum 4.1 mmol/L 3.5-5.2 chloride, serum 104 mmol/L 98-107 blood glucose 64 mg/dL 65-95 urea nitrogen, blood 16 mg/dL 7-18 creatinine, serum 1.55 mg/dL 0.60-1.30 alanine aminotransferase (SGPT), serum 80 U/L - aspartate aminotransferase (SGOT), serum 53 U/L 15-37 calcium, serum 8.1 mg/dL 8.5-10.1 bilirubin, serum, total 0.40 mg/dL 0.00-1.00 sodium, serum 135 mmol/L 996-409 8912/05/08 carbon dioxide, venous blood 29.0 mmol/L 21.0-32.0 potassium, serum 4.8 mmol/L 3.5-5.2 chloride, serum 101 mmol/L 98-107 blood glucose 165 mg/dL 65-95 urea nitrogen, blood 19 mg/dL 7-18 creatinine, serum 1.51 mg/dL 0.60-1.30 alanine aminotransferase (SGPT), serum 65 U/L - aspartate aminotransferase (SGOT), serum 38 U/L 15-37 calcium, serum 8.2 mg/dL 8.5-10.1 bilirubin, serum, total 0.50 mg/dL 0.00-1.00 sodium, serum 135 mmol/L 424-365 4898/04/10 carbon dioxide, venous blood 26.1 mmol/L 21.0-32.0 potassium, serum 4.2 mmol/L 3.5-5.2 chloride, serum 100 mmol/L 98-107 blood glucose 293 mg/dL 65-110 urea nitrogen, blood 18 mg/dL 7-18 creatinine, serum 2.06 mg/dL 0.60-1.30 alanine aminotransferase (SGPT), serum 59 U/L 12-78 aspartate aminotransferase (SGOT), serum 47 U/L 15-37 calcium, serum 8.6 mg/dL 8.5-10.1 bilirubin, serum, total 0.30 mg/dL 0.00-1.00 sodium, serum 134 mmol/L 946-143 9459/05/15 carbon dioxide, venous blood 23.5 mmol/L 21.0-32.0 potassium, serum 4.8 mmol/L 3.5-5.2 chloride, serum 101 mmol/L 98-107 blood glucose 139 mg/dL 65-95 urea nitrogen, blood 19 mg/dL 7-18 creatinine, serum 1.79 mg/dL 0.60-1.30 alanine aminotransferase (SGPT), serum 140 U/L -78 aspartate aminotransferase (SGOT), serum 104 U/L 15-37 calcium, serum 8.5 mg/dL 8.5-10.1 bilirubin, serum, total 0.40 mg/dL 0.00-1.00 Lab Report: CBC W/DIFF, Comp. Metabolic Panel - Hematology leukocyte count, blood 5.0 10^3/MM^3 10*3/mm3 4.6-10.2 [...] % 11.6-14.8 platelet count 271 10^3/MM^3 10*3/mm3 183-657 0098/04/10 leukocyte count, blood 4.8 10^3/MM^3 10*3/mm3 4.6-10.2 [...] % 11.6-14.8 platelet count 200 10^3/MM^3 10*3/mm3 201-237 2733/05/15 leukocyte count, blood 1.7 10^3/MM^3 10*3/mm3 4.6-10.2 [...] % 11.6-14.8 platelet count 36 10^3/MM^3 10*3/mm3 494-414 1191/05/08 leukocyte count, blood 1.8 10^3/MM^3 10*3/mm3 4.6-10.2 [...] % 11.6-14.8 platelet count 103 10^3/MM^3 10*3/mm3 142-424 Lab Report: Comp. Metabolic Panel - Chemistry sodium, serum 136 mmol/L 483-730 7738/05/29 carbon dioxide, venous blood 22.4 mmol/L 21.0-32.0 potassium, serum 4.0 mmol/L 3.5-5.2 chloride, serum 104 mmol/L 98-107 blood glucose 128 mg/dL 65-95 urea nitrogen, blood 20 mg/dL 7- creatinine, serum 1.47 mg/dL 0.60-1.30 alanine aminotransferase (SGPT), serum 80 U/L - aspartate aminotransferase (SGOT), serum 38 U/L 15-37 calcium, serum 9.1 mg/dL 8.5-10.1 bilirubin, serum, total 0.40 mg/dL 0.00-1.00 sodium, serum 134 mmol/L 900-509 7443/05/22 carbon dioxide, venous blood 25.2 mmol/L 21.0-32.0 potassium, serum 5.0 mmol/L 3.5-5.2 chloride, serum 100 mmol/L 98-107 blood glucose 278 mg/dL 65-95 urea nitrogen, blood 19 mg/dL 7-18 creatinine, serum 1.49 mg/dL 0.60-1.30 alanine aminotransferase (SGPT), serum 93 U/L - aspartate aminotransferase (SGOT), serum 58 U/L 15-37 calcium, serum 9.1 mg/dL 8.5-10.1 bilirubin, serum, total 0.20 mg/dL 0.00-1.00 Lab Report: Comp. Metabolic Panel, CBC W/DIFF - Chemistry sodium, serum 137 mmol/L 658-471 6783/08/16 carbon dioxide, venous blood 26.3 mmol/L 21.0-32.0 [...] LABS - Chemistry cholesterol, serum 115 mg/dL 278-232 0495/08/18 triglyceride, serum, fasting 89 mg/dL 30-200 HDL [...] mg/dL Encounters Code Encounter Date Provider Facility CPT-52035 Level 3 Est. Patient 14:09:25 COMPOUNDING SCALER Dee Palmer APRN [facility] CPT-52280 Level 3 Est. Patient 10:53:32 COMPOUNDING SCALER Moy Garcia [facility] CPT-87491 Level 3 Est. Patient 17:11:55 COMPOUNDING SCALER Ismael Gracia MD [facility] CPT-64059 Level 4 Est. Patient 16:29:19 CDT Mekhi Dukes MD [facility] CPT-47896 Level 3 New Patient 17:05:24 CDT Ismael Gracia MD [facility] CPT-64408 Level 2 Est. Patient 15:43:17 CDT Mekhi Dukes MD [facility] CPT-55433 Level 3 Est. Patient 09:30:37 CDT Moy Garcia [facility] CPT-07392 Level 3 Est. Patient 10:00:14 CDT Mekhi Dukes MD [facility] CPT-00788 Level 3 Est. Patient 12:24:09 CDT Moy Garcia [facility]-08415 Level 3 Est. Patient 14:34:57 CDT Prosper Arenas MD [facility] CPT-33307 Level 3 New Patient 15:44:53 COMPOUNDING SCALER Mekhi Dukes MD [facility] CPT-32964 Level 3 Est. Patient 14:53:34 COMPOUNDING SCALER Prosper Arenas MD [facility] CPT-24653 Level 4 Est. Patient 10:05:41 COMPOUNDING SCALER Myo Garcia [facility] CPT-31828 Level 3 Est. Patient 11:18:32 CDT Moy Garcia [facility] CPT-86485 Level 4 Est. Patient 11:05:10 CDT Moy Garcia [facility] CPT-02633 Level 3 Est. Patient 11:08:27 COMPOUNDING SCALER Moy Garcia [facility] CPT-38044 Level 4 Est. Patient 10:43:59 CDT Prosper Arenas MD [facility] CPT-94071 Level 3 Est. Patient 10:51:19 CDT Moy Garcia [facility] CPT-12933 Level 3 Est. Patient 10:20:31 CDT Moy Garcia [facility] CPT-69867 Level 3 Est. [facility]08[facility] CPT-62489 Level 2 Est. Patient 13:54:36 CDT Augustina Mata APRN [facility] CPT-61199 Level 3 Est. Patient 12:00:42 CDT Prosper Arenas MD [facility] CPT-09706 Level 3 Est. Patient 09:57:28 COMPOUNDING SCALER Moy Garcia [facility] CPT-53674 Level 3 Est. Patient 11:41:19 COMPOUNDING SCALER Moy Garcia [facility] CPT-94935 Level 4 Est. Patient 17:07:35 COMPOUNDING SC[facility] 5 Est. Patient 14:33:32 CDT [facility] C[facility]-60183 Level 3 Est. Patient 12:25:35 CDT Prosper Arenas MD [facility] Procedures Code Procedure Name Date Entry Date Standard Description CPT-34315 Chest, 2 views 14:17:20 COMPOUNDING SCALER CPT-16851 Postop F/U Visit 14:44:45 COMPOUNDING SCALER CPT-31017 Postop F/U Visit 17:20:20 COMPOUNDING SCALER CPT-G0439 [facility] Annual Wellness Exam 08:39:41 COMPOUNDING SCALER CPT-000 Give Appropriate Flu Vaccine 10:13:55 COMPOUNDING SCALER CPT-000 Give Immunizations Due 10:13:55 COMPOUNDING SCALER CPT-59712 HGBA1C - LAB USE ONLY 09:42:47 COMPOUNDING SCALER CPT-60557 TPSA - LAB USE ONLY 09:42:46 COMPOUNDING SCALER CPT-29440 Venipuncture Draw Fee 09:42:46 COMPOUNDING SCALER CPT-41708 Port a cath flush 13:33:18 COMPOUNDING SCALER CPT-39895 First Vx - Ix admin for Medicare patients 10:42:57 COMPOUNDING SCALER CPT-07339 Fluzone Preservative Free Intramuscular Suspension 10:42 :57 COMPOUNDING SCALER CPT-G0438 Initial Annual Wellness Exam 10:13:55 COMPOUNDING SCALER CPT-000 Give Appropriate Flu Vaccine 10:44:04 CDT CPT-000 Give Pneumovax 10:44:03 CDT CPT-10924 Port a cath flush 17:04:43 CDT CPT-22763 Prevnar 13 11:19:17 CDT CPT-63735 Fluzone Quadrivalent preservative free (>=3yrs.) 11:19: 17 CDT CPT-16924 Immunization Each Additional Inj 11:19:17 CDT CPT-29149 Immunization Single Admin 11:19:17 CDT CPT-04617 Port a cath flush 13:28:22 CDT CPT-TCMM Transitional Care Mgmt-Moderate 13:40:15 CDT CPT-G0008 Administration of Influenza Virus Vaccine 13:59:20 CDT CPT-87125 Fluzone High-Dose Intramuscular Suspension 13:59:20 CDT CPT-60050 Venipuncture Draw Fee 09:56:19 CDT CPT-OV Office Visit 15:46:10 CDT
--- OUTSIDE RECORDS SUMMARY | 2017-08-25 21:35 | XMS REPORT | Clinical Summary ---
Author Author Admin, IWONA Organization [employer] Address Unknown Phone Unavailable Allergies, Adverse Reactions, Alerts Allergy Name Reaction Description Start Date Severity Status Provider ERYTHROMYCIN Stomach cramps Moderate Active Prosper Arenas MD CODEINE Critical Active Maliheh Ziglari DRAWER IN HAND DARVOCET Critical Active Maliheh Ziglari DRAWER IN HAND LEVAQUIN Critical Active Maliheh Ziglari DRAWER IN HAND Conditions or Problems Problem Name Problem Code [...] type II, uncontrolled 250.02 Active Maliheh Ziglari DRAWER IN HAND Diabetes mellitus 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, type II or unspecified type, uncontrolled Chest pain, atypical 786.59 Resolved Mekhi Dueks MD Other chest pain Bronchitis 490 Resolved [...] with hyperglycemia 250.00 Active 03/21 Maliheh Ziglari DRAWER IN HAND Diabetes mellitus 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, type II or unspecified type, not stated as uncontrolled assisted use of insulin treatment V58.67 Active Maliheh Ziglari DRAWER IN HAND Long-term (current) use of insulin Diabetes mellitus, type II with hypoglycemia 250.80 Active 07/22 Maliheh Ziglari DRAWER IN HAND Diabetes mellitus with other specified manifestations, type II or unspecified type, not stated as uncontrolled 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 Maliheh Ziglari DRAWER IN HAND Diabetes mellitus with renal manifestations, type II or unspecified type, not stated as uncontrolled Wellness exam V70.0 Active Dee Palmer APRN Routine general medical examination at a health care facility Fitting and adjustment of vascular catheter V58.81 Active 02/06 Dee Palmer APRN Encounter for fitting and adjustment of vascular catheter Unawareness of hypoglycemia in diabetes mellitus, type II 250.80 Active Maliheh Ziglari DRAWER IN HAND Diabetes mellitus with other specified manifestations, type [...] day as needed for cough 07/29 BENZONATATE 12415442335 Active Prosper Arenas MD Active PREDNISONE 20 MG TABS Take 2 daily for 3 days and then 1 daily for 3 days PREDNISONE 10224267389 Active Prosper Arenas MD Active HYDROCHLOROTHIAZIDE 25 MG TABS 1 tablet by mouth daily HYDROCHLOROTHIAZIDE 73154218366 No Longer Active Prosper Arenas MD Active ACCU-CHEK JOANNA PLUS STRP check blood sugars 5x a day, before each meal and bedtime and 15 minutes after treating a low blood. sugar GLUCOSE BLOOD 96918944467 Active Maliheh Ziglari DRAWER IN HAND Active NOVOLOG FLEXPEN 100 UNIT/ML SOPN Take 25 units with each meal, add 1u/50 for blood sugars above 150. INSULIN ASPART 44642145190 Active Maliheh Ziglari DRAWER IN HAND Active LANTUS SOLOSTAR 100 UNIT/ML SOLN Take 40 units at 7-8pm daily INSULIN GLARGINE 96369682698 [facility] Ziglari DRAWER IN HAND Active MECLIZINE HCL 25 MG TABS 1 daily needed for dizziness MECLIZINE HCL 03986528032 No Longer Active [facility] Ziglari DRAWER IN HAND Active BENZONATATE 200 MG CAPS 1 tab, 2-3 times a day BENZONATATE 00857415057 No Longer Active [facility] Ziglari DRAWER IN HAND Active HALOPERIDOL 0.5 MG TABS one tablet three times a day HALOPERIDOL 23508824709 No Longer Active [facility] Ziglari DRAWER IN HAND Active TRAZODONE HCL 50 MG TAB three tablets at bed time TRAZODONE HCL 53550621299 No Longer Active [facility] Ziglari DRAWER IN HAND Active REVLIMID 25 MG CAPS one capsule daily for 21 days then off for 7 days 2014 LENALIDOMIDE 50902555822 No Longer Active [facility] Ziglari DRAWER IN HAND Active ZITHROMAX Z-EDDIE 250 MG TABS 2 today, then 1 daily for 4 days 2014 AZITHROMYCIN 67736827078 No Longer Active Augustina Mata SAP PP CONSULTANT Active NOVOLIN R RELION 100 UNIT/ML INJ SOLN 30- 40 units each meal sliding scale INSULIN REGULAR HUMAN 12849844289 [facility] Active LISINOPRIL 5 MG TABS 1 daily LISINOPRIL 71328647637 Active Prosper Arenas MD Active CALCIUM 500/D 500-200 MG-UNIT TABS one tablet daily CALCIUM CARBONATE- VITAMIN D 49488875517 Active Prosper Arenas MD Active HYDROCODONE-ACETAMINOPHEN 5-500 MG TABS 1-2 FOUR TIMES A DAY, PRN HYDROCODONE-ACETAMINOPHEN 35100761664 No Longer Active Prosper Arenas MD Active SIMVASTATIN 80 MG TABS 1/2 tablet daily SIMVASTATIN 76761796532 Active Prosper Arenas MD Active METOPROLOL TARTRATE 25 MG TABS 1/2 tablet twice a day METOPROLOL TARTRATE 80362791818 Active Prosper Arenas MD Active ASPIRIN 81 MG TAB 1 tablet by mouth daily ASPIRIN 43974251962 Active Prosper Arenas MD Active OMEPRAZOLE 20 MG CPDR 1 qd OMEPRAZOLE 63028861774 Active DARCIE Miller Active DOXYCYCLINE HYCLATE 100 MG CAPS take one capsule by mouth twice daily for ten days DOXYCYCLINE HYCLATE 59367748418 No Longer Active Mekhi Dukes MD Active DOXYCYCLINE HYCLATE 100 MG CAPS take one capsule by mouth twice daily for ten days DOXYCYCLINE HYCLATE 100 MG CAPS 4667053 DOXYCYCLINE HYCLATE Inactive HYDROCODONE-ACETAMINOPHEN 5-500 MG TABS [...] days 2014 ZITHROMAX Z-EDDIE 250 MG TABS 2760342 AZITHROMYCIN Inactive REVLIMID 25 MG CAPS one capsule daily for 21 days then off for 7 days 2014 REVLIMID 25 MG CAPS LENALIDOMIDE Inactive TRAZODONE HCL 50 MG TAB three tablets at bed time TRAZODONE HCL 50 MG TAB 583133 TRAZODONE HCL Inactive HALOPERIDOL 0.5 MG TABS one tablet three times a day HALOPERIDOL 0.5 MG TABS 027385 HALOPERIDOL Inactive BENZONATATE 200 MG CAPS 1 tab, 2-3 times a day BENZONATATE 200 MG CAPS 651264 BENZONATATE Inactive MECLIZINE HCL 25 MG TABS 1 daily needed for dizziness MECLIZINE HCL 25 MG TABS 452560 MECLIZINE HCL Inactive HYDROCHLOROTHIAZIDE 25 MG TABS 1 tablet by mouth daily HYDROCHLOROTHIAZIDE 25 MG TABS 858235 HYDROCHLOROTHIAZIDE Inactive Immunizations Vaccine Administration Date Value [...] LAB - Chemistry cholesterol, serum 156 mg/dL 588-004 6001/02/20 HDL cholesterol, serum 52 mg/dL > OR=40 [...] mg/dL Encounters Code Encounter Date Provider Facility CPT-02607 Level 3 Est. Patient 14:34:57 CDT Prosper Arenas MD [facility] CPT-29564 Level 3 New Patient 15:44:53 STEAM BOX OPERATOR Mekhi Dukes MD [facility] CPT-59962 Level 3 Est. Patient 14:53:34 STEAM BOX OPERATOR Prosper Arenas MD [facility] CPT-20183 Level 4 Est. Patient 10:05:41 STEAM BOX OPERATOR [facility] CPT-82932 Level 3 Est. Patient 11:18:32 CDT [facility] CPT-27524 Level 4 Est. Patient 11:05:10 CDT [facility] CPT-63619 Level 3 Est. Patient 11:08:27 STEAM BOX OPERATOR [facility] CPT-59095 Level 4 Est. Patient 10:43:59 CDT Prosper Arenas MD [facility] CPT-75429 Level 3 Est. Patient 10:51:19 CDT [facility] CPT-17511 Level 3 Est. Patient 10:20:31 CDT [facility] CPT-26860 Level 3 Est. Patient 17:08:45 CDT [facility] CPT-00503 Level 2 Est. Patient 13:54:36 CDT Augustina Mata BESSY [facility] CPT-81592 Level 3 Est. Patient 12:00:42 CDT Prosper Arenas MD [facility] CPT-38551 Level 3 Est. Patient 09:57:28 STEAM BOX OPERATOR [facility] CPT-00584 Level 3 Est. Patient 11:41:19 STEAM BOX OPERATOR Moy Garcia [facility] CPT-55531 Level 4 Est. Patient 17:07:35 STEAM BOX OPERATOR [facility] CPT-96751 Level 5 Est. Patient 14:33:32 CDT [facility] CPT-95866 Level 3 Est. Patient 12:25:35 CDT Prosper Arenas MD [facility] Procedures Code Procedure Name Date Entry Date Standard Description CPT-000 Give Appropriate Flu Vaccine 10:13:55 STEAM BOX OPERATOR CPT-000 Give Immunizations Due 10:13:55 STEAM BOX OPERATOR CPT-97696 HGBA1C - LAB USE ONLY 09:42:47 STEAM BOX OPERATOR CPT-03298 TPSA - LAB USE ONLY 09:42:46 STEAM BOX OPERATOR CPT-08816 Venipuncture Draw Fee 09:42:46 STEAM BOX OPERATOR CPT-73705 Port a cath flush 13:33:18 STEAM BOX OPERATOR CPT-19152 First Vx - Ix admin for Medicare patients 10:42:57 STEAM BOX OPERATOR CPT-68676 Fluzone Preservative Free Intramuscular Suspension 10:42 :57 STEAM BOX OPERATOR CPT-G0438 Initial Annual Wellness Exam 10:13:55 STEAM BOX OPERATOR CPT-000 Give Appropriate Flu Vaccine 10:44:04 CDT CPT-000 Give Pneumovax 10:44:03 CDT CPT-65810 Port a cath flush 17:04:43 CDT CPT-78162 Prevnar 13 11:19:17 CDT CPT-71130 Fluzone Quadrivalent preservative free (>=3yrs.) 11:19: 17 CDT CPT-59396 Immunization Each Additional Inj 11:19:17 CDT CPT-30041 Immunization Single Admin 11:19:17 CDT CPT-29620 Port a cath flush 13:28:22 CDT CPT-TCMM Transitional Care Mgmt-Moderate 13:40:15 CDT CPT-G0008 Administration of Influenza Virus Vaccine 13:59:20 CDT CPT-27131 Fluzone High-Dose Intramuscular Suspension 13:59:20 CDT CPT-76998 Venipuncture Draw Fee 09:56:19 CDT CPT-OV Office Visit 15:46:10 CDT
--- OUTSIDE RECORDS SUMMARY | 2017-08-25 21:35 | XMS REPORT | Clinical Summary ---
Author Author Admin, IWONA Organization [employer] Address Unknown Phone Unavailable Allergies, Adverse Reactions, Alerts Allergy Name Reaction Description Start Date Severity Status Provider ERYTHROMYCIN Stomach cramps Moderate Active Prosper Arenas MD CODEINE Critical Active Maliheh Ziglari [address] MAGISTRATE DARVOCET Critical Active Maliheh Ziglari [address] MAGISTRATE LEVAQUIN Critical Active Maliheh Ziglari [address] MAGISTRATE Conditions or Problems Problem Name Problem Code Onset Date Status Entry Date Provider Comment Standard Description Annotate Diabetes, Type 2 250.00 Resolved Tami Miller panel wirer mellitus 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, type II [...] type II, uncontrolled 250.02 Active Maliheh Rodrigoglari [address] MAGISTRATE Diabetes mellitus 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, type II or unspecified type, uncontrolled Chest pain, atypical 786.59 Resolved Mekhi Dukes MD Other chest pain Bronchitis 490 Resolved Mekhi Dukes MD Bronchitis, not specified as acute or chronic Multiple myeloma 203.00 Active Gean Faux RMA Multiple myeloma without mention of [...] with hyperglycemia 250.00 Active 03/21 [address] MAGISTRATE Diabetes mellitus 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, type II or unspecified type, not stated as uncontrolled residential use of insulin treatment V58.67 Active Luxiheh Rodrigoglari [address] MAGISTRATE Long-term (current) use of insulin Diabetes mellitus, type II with hypoglycemia 250.80 Active 07/22 [address] MAGISTRATE Diabetes mellitus with other specified manifestations, type II or unspecified type, not stated as uncontrolled 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 Maliheh Ziglari [address] MAGISTRATE Diabetes mellitus with renal manifestations, type II or unspecified type, not stated as uncontrolled Wellness exam V70.0 Active Dee Palmer APRN Routine general medical examination at a health care facility Fitting and adjustment of vascular catheter V58.81 Active 02/06 Dee Palmer APRN Encounter for fitting and adjustment of vascular catheter Unawareness of hypoglycemia in diabetes mellitus, type II 250.80 Active Maliheh Rodrigoglari [address] MAGISTRATE Diabetes mellitus with other specified manifestations, type [...] specified as recurrent) Gastritis Inactive Maliheh Jose [address] MAGISTRATE Unspecified gastritis and gastroduodenitis, without mention of [...] po qd x 4 days 05/07 AZITHROMYCIN 11425334232 Active Dee Palmer APRN Active GUAIFENESIN DM 400-20 MG ORAL TABLET 1 pill by mouth twice daily, if needed for cough DEXTROMETHORPHAN-GUAIFENESIN 37044051912 Active Dee Palmer APRN Active PREDNISONE 20 MG ORAL TABLET 2 tabs daily for 4 days, 1 tab daily for 4 days, 1/2 tab daily for 4 days PREDNISONE 22688708032 Active Dee Palmer APRN Active ASPIRIN 81 MG ORAL TABLET 1 po qd ASPIRIN 57341864889 Active Dee Palmer APRN Active CALCIUM 500/D 500-200 MG-UNIT ORAL TABLET one tablet daily CALCIUM CARBONATE-VITAMIN D 24787651133 No Longer Active Dee Palmer APRN Active HYDROCODONE-ACETAMINOPHEN 7.5-325 MG ORAL TABLET 1-2 every 4-6 hrs prn 02/25 HYDROCODONE-ACETAMINOPHEN 04568826145 Active Marina Messina BESSY Active ASPIRIN 81 MG ORAL TABLET 1 tablet by mouth daily ASPIRIN 18602224111 No Longer Active Marina King BESSY Active SIMVASTATIN 80 MG ORAL TABLET 1/2 tablet daily SIMVASTATIN 24098040677 No Longer Active Mekhi Dukes MD Active OMEPRAZOLE 20 MG ORAL CAPSULE DELAYED RELEASE 1 qd OMEPRAZOLE 98796975994 No Longer Active Mekhi Dukes MD Active METOPROLOL TARTRATE 25 MG ORAL TABLET 1/2 tablet twice a day METOPROLOL TARTRATE 47113285218 No Longer Active Mekhi Dukes MD Active LISINOPRIL 5 MG ORAL TABLET 1 daily LISINOPRIL 30935496331 No Longer Active Mekhi Dukes MD Active NOVOLOG FLEXPEN 100 UNIT/ML SUBCUTANEOUS SOLUTION PEN-INJECTOR Take 8 units with each meal, add 1u/50 for blood sugars above 150. INSULIN ASPART 18038324956 Active Moy PARISH Active GABAPENTIN 300 MG ORAL CAPSULE 1 tab BID GABAPENTIN 61893421080 Active Tami Miller RN Active PREDNISONE 20 MG ORAL TABLET Take 2 daily for 3 days and then 1 daily for 3 days PREDNISONE 92674719800 No Longer Active Moy PARISH Active BENZONATATE 200 MG ORAL CAPSULE Take 1 tablet 3 times a day as needed for cough BENZONATATE 83923738738 No Longer Active Prosper Arenas MD Active HYDROCHLOROTHIAZIDE 25 MG ORAL TABLET 1 tablet by mouth daily HYDROCHLOROTHIAZIDE 15061865929 No Longer Active Prosper Arenas MD Active ACCU-CHEK JOANNA PLUS IN VITRO STRIP check blood sugars 5x a day, before each meal and bedtime and 15 minutes after treating a low blood. sugar GLUCOSE BLOOD 07693513892 Active Moy PARISH Active LANTUS SOLOSTAR 100 UNIT/ML SUBCUTANEOUS SOLUTION PEN-INJECTOR Take 40 units at 7-8pm daily INSULIN GLARGINE 66288856326 Active Maliheh Ziglari [address] MAGISTRATE Active MECLIZINE HCL 25 MG ORAL TABLET 1 daily needed for dizziness 2015 MECLIZINE HCL 85759750909 No Longer Active Maliheh Ziglari [address] MAGISTRATE Active BENZONATATE 200 MG ORAL CAPSULE 1 tab, 2-3 times a day BENZONATATE 67796330185 No Longer Active Maliheh Ziglari [address] MAGISTRATE Active HALOPERIDOL 0.5 MG ORAL TABLET one tablet three times a day HALOPERIDOL 58556137026 No Longer Active Maliheh Ziglari [address] MAGISTRATE Active TRAZODONE HCL 50 MG ORAL TABLET three tablets at bed time TRAZODONE HCL 79830304137 No Longer Active [facility] Ziglari [address] MAGISTRATE Active REVLIMID 25 MG ORAL CAPSULE one capsule daily for 21 days then off for 7 days LENALIDOMIDE 60763193202 No Longer Active Maleh Ziglari [address] MAGISTRATE Active ZITHROMAX Z-EDDIE 250 MG ORAL TABLET 2 today, then 1 daily for 4 days AZITHROMYCIN 58293531130 No Longer Active Augustina Mata BUSINESS PLANNER Active NOVOLIN R RELION 100 UNIT/ML INJECTION SOLUTION 30- 40 units each meal sliding scale INSULIN REGULAR HUMAN 32609785279 No Longer Active Moy Wallaceglari [address] MAGISTRATE Active HYDROCODONE-ACETAMINOPHEN 5-500 MG ORAL TABLET 1-2 FOUR TIMES A DAY, PRN 2010 HYDROCODONE-ACETAMINOPHEN 45529833201 No Longer Active Prosper Arenas MD Active DOXYCYCLINE HYCLATE 100 MG ORAL CAPSULE take one capsule by mouth twice daily for ten days DOXYCYCLINE HYCLATE 43354343579 No Longer Active Mekhi Dukes MD Active DOXYCYCLINE HYCLATE 100 MG ORAL CAPSULE take one capsule by mouth twice daily for ten days DOXYCYCLINE HYCLATE 100 MG ORAL CAPSULE 2288647 DOXYCYCLINE HYCLATE Inactive HYDROCODONE-ACETAMINOPHEN 5-500 MG ORAL TABLET 1-2 FOUR TIMES A DAY, PRN 2010 HYDROCODONE-ACETAMINOPHEN 5-500 MG ORAL TABLET 367753 HYDROCODONE-ACETAMINOPHEN Inactive NOVOLIN R RELION 100 UNIT/ML INJECTION SOLUTION 30- 40 units each meal sliding scale NOVOLIN R RELION 100 UNIT/ML INJECTION SOLUTION INSULIN REGULAR HUMAN Inactive ZITHROMAX Z-EDDIE 250 MG ORAL TABLET 2 today, then 1 daily for 4 days ZITHROMAX Z-EDDIE 250 MG ORAL TABLET 062401 AZITHROMYCIN Inactive REVLIMID 25 MG ORAL CAPSULE one capsule daily for 21 days then off for 7 days REVLIMID 25 MG ORAL CAPSULE LENALIDOMIDE Inactive TRAZODONE HCL 50 MG ORAL TABLET three tablets at bed time TRAZODONE HCL 50 MG ORAL TABLET 346702 TRAZODONE HCL Inactive HALOPERIDOL 0.5 MG ORAL TABLET one tablet three times a day HALOPERIDOL 0.5 MG ORAL TABLET 331509 HALOPERIDOL Inactive BENZONATATE 200 MG ORAL CAPSULE 1 tab, 2-3 times a day BENZONATATE 200 MG ORAL CAPSULE 586253 BENZONATATE Inactive MECLIZINE HCL 25 MG ORAL TABLET 1 daily needed for dizziness 2015 MECLIZINE HCL 25 MG ORAL TABLET 453612 MECLIZINE HCL Inactive HYDROCHLOROTHIAZIDE 25 MG ORAL TABLET 1 tablet by mouth daily HYDROCHLOROTHIAZIDE 25 MG ORAL TABLET 672390 HYDROCHLOROTHIAZIDE Inactive PREDNISONE 20 MG ORAL TABLET Take 2 daily for 3 days and then 1 daily for 3 days PREDNISONE 20 MG ORAL TABLET 731266 PREDNISONE Inactive LISINOPRIL 5 MG ORAL TABLET 1 daily LISINOPRIL 5 MG ORAL TABLET 481245 LISINOPRIL Inactive METOPROLOL TARTRATE 25 MG ORAL TABLET 1/2 tablet twice a day METOPROLOL TARTRATE 25 MG ORAL TABLET 341318 METOPROLOL TARTRATE Inactive OMEPRAZOLE 20 MG ORAL CAPSULE DELAYED RELEASE 1 qd OMEPRAZOLE 20 MG ORAL CAPSULE DELAYED RELEASE 570319 OMEPRAZOLE Inactive SIMVASTATIN 80 MG ORAL TABLET 1/2 tablet daily SIMVASTATIN 80 MG ORAL TABLET 069197 SIMVASTATIN Inactive ASPIRIN 81 MG ORAL TABLET 1 tablet by mouth daily ASPIRIN 81 MG ORAL TABLET 248394 ASPIRIN Inactive CALCIUM 500/D 500-200 MG-UNIT ORAL TABLET one tablet daily CALCIUM 500/D 500-200 MG-UNIT ORAL TABLET CALCIUM CARBONATE-VITAMIN D Inactive BENZONATATE 200 MG ORAL CAPSULE Take 1 tablet 3 times a day as needed for cough BENZONATATE 200 MG ORAL CAPSULE 394468 BENZONATATE Inactive Immunizations Vaccine Administration Date Value [...] W/DIFF - Chemistry sodium, serum 137 mmol/L 878-727 7739/08/16 carbon dioxide, venous blood 26.3 mmol/L 21.0-32.0 [...] LABS - Chemistry cholesterol, serum 115 mg/dL 205-717 4941/08/18 triglyceride, serum, fasting 89 mg/dL 30-200 HDL cholesterol, serum 46 mg/dL 32-60 LDL cholesterol, serum 51 mg/dL 0-130 blood glucose 104 mg/dL 65-110 Lab Report: LIPID PANEL- REPOWER LAB - Chemistry cholesterol, serum 156 mg/dL 537-145 8006/02/20 HDL cholesterol, serum 52 mg/dL > OR=40 [...] mg/dL Encounters Code Encounter Date Provider Facility CPT-80783 Level 3 Est. Patient 14:09:25 IVORY POLISHER Ryanmakenna Palmer APRN [facility] CPT-29216 Level 3 Est. Patient 10:53:32 IVORY POLISHER Moy Garcia [facility] CPT-38708 Level 3 Est. Patient 17:11:55 IVORY POLISHER Ismael Gracia MD [facility] CPT-67908 Level 4 Est. Patient 16:29:19 CDT Mekhi Dukes MD [facility] CPT-39026 Level 3 New Patient 17:05:24 CDT Ismael Gracia MD [facility] CPT-75235 Level 2 Est. Patient 15:43:17 CDT Mekhi Dukes MD [facility] CPT-35424 Level 3 Est. Patient 09:30:37 [facility]-72747 Level 3 Est. Patient 10:00:14 CDT Mekhi Dukes MD [facility] CPT-44608 Level 3 Est. Patient 12:24:09 CDT [facility] CPT-37207 Level 3 Est. Patient 14:34:57 CDT Prosper Arenas MD [facility] CPT-94705 Level 3 New Patient 15:44:53 IVORY POLISHER Mekhi Dukes MD [facility] CPT-12554 Level 3 Est. Patient 14:53:34 IVORY POLISHER Prosper Arenas MD [facility] CPT-55699 Level 4 Est. Patient 10:05:41 IVORY POLISHER Moy Garcia [facility] CPT-59515 Level 3 Est. Patient 11:18:32 CDT [facility] CPT-74029 Level 4 Est. Patient 11:05:10 CDT [facility] CPT-35593 Level 3 Est. Patient 11:08:27 IVORY POLISHER Luxshoaib Garcia [facility] CPT-79192 Level 4 Est. Patient 10:43:59 CDT Prosper Arenas MD [facility] CPT-45167 Level 3 Est. Patient 10:51:19 CDT [facility] Jose [facility] CPT-35180 Level 3 Est. Patient 10:20:31 CDT [facility] CPT-[facility]30 Level 3 Est. Patient 17:08:45 CDT [facility] CPT-81464 Level 2 Est. Patient 13:54:36 CDT Augustina Mata APRN [facility] CPT-76541 Level 3 Est. Patient 12:00:42 CDT Prosper Arenas MD [facility] CPT-37876 Level 3 Est. Patient 09:57:28 IVORY POLISHER [facility] CPT-27319 Level 3 Est. Patient 11:41:19 IVORY POLISHER [facility] CPT-41225 Level 4 Est. Patient 17:07:35 IVORY POLISHER [facility] CPT-37621 Level 5 Est. Patient 14:33:32 CDT [facility] CPT-41161 Level 3 Est. Patient 12:25:35 CDT Prosper Arenas MD [facility] Procedures Code Procedure Name Date Entry Date Standard Description CPT-56742 Chest, 2 views 14:17:20 IVORY POLISHER CPT-66274 Postop F/U Visit 14:44:45 IVORY POLISHER CPT-12877 Postop F/U Visit 17:20:20 IVORY POLISHER CPT-G0439 Subsequent Annual Wellness Exam 08:39:41 IVORY POLISHER CPT-000 Give Appropriate Flu Vaccine 10:13:55 IVORY POLISHER CPT-000 Give Immunizations Due 10:13:55 IVORY POLISHER CPT-19853 HGBA1C - LAB USE ONLY 09:42:47 IVORY POLISHER CPT-59708 TPSA - LAB USE ONLY 09:42:46 IVORY POLISHER CPT-55342 Venipuncture Draw Fee 09:42:46 IVORY POLISHER CPT-47637 Port a cath flush 13:33:18 IVORY POLISHER CPT-14438 First Vx - Ix admin for Medicare patients 10:42:57 IVORY POLISHER CPT-13153 Fluzone Preservative Free Intramuscular Suspension 10:42 :57 IVORY POLISHER CPT-G0438 Initial Annual Wellness Exam 10:13:55 IVORY POLISHER CPT-000 Give Appropriate Flu Vaccine 10:44:04 CDT CPT-000 Give Pneumovax 10:44:03 CDT CPT-49313 Port a cath flush 17:04:43 CDT CPT-28705 Prevnar 13 11:19:17 CDT CPT-06231 Fluzone Quadrivalent preservative free (>=3yrs.) 11:19: 17 CDT CPT-08035 Immunization Each Additional Inj 11:19:17 CDT CPT-41086 Immunization Single Admin 11:19:17 CDT CPT-05253 Port a cath flush 13:28:22 CDT CPT-TCMM Transitional Care Mgmt-Moderate 13:40:15 CDT CPT-G0008 Administration of Influenza Virus Vaccine 13:59:20 CDT CPT-01622 Fluzone High-Dose Intramuscular Suspension 13:59:20 CDT CPT-55129 Venipuncture Draw Fee 09:56:19 CDT CPT-OV Office Visit 15:46:10 CDT
--- OUTSIDE RECORDS SUMMARY | 2017-08-25 21:36 | XMS REPORT | Clinical Summary ---
Author Author Admin, IWONA Organization [employer] Address Unknown Phone Unavailable Allergies, Adverse Reactions, Alerts Allergy Name Reaction Description Start Date Severity Status Provider ERYTHROMYCIN Stomach cramps Moderate Active Prosper Arenas MD CODEINE Critical Active Maliheh Ziglari SAP SECURITY ARCHITECT DARVOCET Critical Active Maliheh Ziglari SAP SECURITY ARCHITECT LEVAQUIN Critical Active Maliheh Ziglari SAP SECURITY ARCHITECT Conditions or Problems Problem Name Problem Code [...] type II, uncontrolled 250.02 Active Maliheh Ziglari SAP SECURITY ARCHITECT Diabetes mellitus 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, type [...] with hyperglycemia 250.00 Active 03/21 Maliheh Ziglari SAP SECURITY ARCHITECT Diabetes mellitus 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, type II or unspecified type, not stated as uncontrolled USP use of insulin treatment V58.67 Active Maliheh Ziglari SAP SECURITY ARCHITECT Long-term (current) use of insulin Diabetes mellitus, type II with hypoglycemia 250.80 Active 07/22 Maliheh Ziglari SAP SECURITY ARCHITECT Diabetes mellitus with other specified manifestations, type II or unspecified type, not stated as uncontrolled 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 Maliheh Ziglari SAP SECURITY ARCHITECT Diabetes mellitus with renal manifestations, type II or unspecified type, not stated as uncontrolled Wellness exam V70.0 Active Dee Palmer APRN Routine general medical examination at a health care facility Fitting and adjustment of vascular catheter V58.81 Active 02/06 Dee Palmer APRN Encounter for fitting and adjustment of vascular catheter Unawareness of hypoglycemia in diabetes mellitus, type II 250.80 Active Maliheh Ziglari SAP SECURITY ARCHITECT Diabetes mellitus with other specified manifestations, type [...] then 1 daily for 3 days PREDNISONE 35243869525 No Longer Active Moy PARISH Active BENZONATATE 200 MG CAPS Take 1 tablet 3 times a day as needed for cough 07/29 BENZONATATE 76419070280 No Longer Active Prosper Arenas MD Active HYDROCHLOROTHIAZIDE 25 MG TABS 1 tablet by mouth daily HYDROCHLOROTHIAZIDE 91291815234 No Longer Active Prosper Arenas MD Active ACCU-CHEK JOANNA PLUS STRP check blood sugars 5x a day, before each meal and bedtime and 15 minutes after treating a low blood. sugar GLUCOSE BLOOD 80140379396 Active Malpapo Wallaceglari SAP SECURITY ARCHITECT Active NOVOLOG FLEXPEN 100 UNIT/ML SOPN Take 25 units with each meal, add 1u/50 for blood sugars above 150. INSULIN ASPART 81839364316 Active Malpapo Wallaceglari SAP SECURITY ARCHITECT Active LANTUS SOLOSTAR 100 UNIT/ML SOLN Take 40 units at 7-8pm daily INSULIN GLARGINE 50228164294 Active [facility] Ziglari SAP SECURITY ARCHITECT Active MECLIZINE HCL 25 MG TABS 1 daily needed for dizziness MECLIZINE HCL 38986485195 No Longer Active Maleh Ziglari SAP SECURITY ARCHITECT Active BENZONATATE 200 MG CAPS 1 tab, 2-3 times a day BENZONATATE 08905285141 No Longer Active [facility] Ziglari SAP SECURITY ARCHITECT Active HALOPERIDOL 0.5 MG TABS one tablet three times a day HALOPERIDOL 24148318520 No Longer Active [facility] Ziglari SAP SECURITY ARCHITECT Active TRAZODONE HCL 50 MG TAB three tablets at bed time TRAZODONE HCL 96634081443 No Longer Active [facility] Ziglari SAP SECURITY ARCHITECT Active REVLIMID 25 MG CAPS one capsule daily for 21 days then off for 7 days 2014 LENALIDOMIDE 54645941317 No Longer Active [facility] Ziglari SAP SECURITY ARCHITECT Active ZITHROMAX Z-EDDIE 250 MG TABS 2 today, then 1 daily for 4 days 2014 AZITHROMYCIN 84151105005 No Longer Active Augustina Mata BESSY Active NOVOLIN R RELION 100 UNIT/ML INJ SOLN 30- 40 units each meal sliding scale INSULIN REGULAR HUMAN 26873739597 No Longer Active [facility] Rodrigoglari SAP SECURITY ARCHITECT Active LISINOPRIL 5 MG TABS 1 daily LISINOPRIL 00601543218 Active Prosper Arenas MD Active CALCIUM 500/D 500-200 MG-UNIT TABS one tablet daily CALCIUM CARBONATE- VITAMIN D 89343213636 Active Prosper Arenas MD Active HYDROCODONE-ACETAMINOPHEN 5-500 MG TABS 1-2 FOUR TIMES A DAY, PRN HYDROCODONE-ACETAMINOPHEN 09378144442 No Longer Active Prosper Arenas MD Active SIMVASTATIN 80 MG TABS 1/2 tablet daily SIMVASTATIN 42915359671 Active Prosper Arenas MD Active METOPROLOL TARTRATE 25 MG TABS 1/2 tablet twice a day METOPROLOL TARTRATE 15425612644 Active Prosper Arenas MD Active ASPIRIN 81 MG TAB 1 tablet by mouth daily ASPIRIN 48783518319 Active Prosper Arenas MD Active OMEPRAZOLE 20 MG CPDR 1 qd OMEPRAZOLE 64777539400 Active DARCIE Miller Active DOXYCYCLINE HYCLATE 100 MG CAPS take one capsule by mouth twice daily for ten days DOXYCYCLINE HYCLATE 81818509387 No Longer Active Mekhi Dukes MD Active DOXYCYCLINE HYCLATE 100 MG CAPS take one capsule by mouth twice daily for ten days DOXYCYCLINE HYCLATE 100 MG CAPS 5490670 DOXYCYCLINE HYCLATE Inactive HYDROCODONE-ACETAMINOPHEN 5-500 MG TABS [...] days 2014 ZITHROMAX Z-EDDIE 250 MG TABS 6254106 AZITHROMYCIN Inactive REVLIMID 25 MG CAPS one capsule daily for 21 days then off for 7 days 2014 REVLIMID 25 MG CAPS LENALIDOMIDE Inactive TRAZODONE HCL 50 MG TAB three tablets at bed time TRAZODONE HCL 50 MG TAB 527564 TRAZODONE HCL Inactive HALOPERIDOL 0.5 MG TABS one tablet three times a day HALOPERIDOL 0.5 MG TABS 738641 HALOPERIDOL Inactive BENZONATATE 200 MG CAPS 1 tab, 2-3 times a day BENZONATATE 200 MG CAPS 915427 BENZONATATE Inactive MECLIZINE HCL 25 MG TABS 1 daily needed for dizziness MECLIZINE HCL 25 MG TABS 262920 MECLIZINE HCL Inactive HYDROCHLOROTHIAZIDE 25 MG TABS 1 tablet by mouth daily HYDROCHLOROTHIAZIDE 25 MG TABS 367640 HYDROCHLOROTHIAZIDE Inactive PREDNISONE 20 MG TABS Take 2 daily for 3 days and then 1 daily for 3 days PREDNISONE 20 MG TABS 863668 PREDNISONE Inactive BENZONATATE 200 MG CAPS Take 1 tablet 3 times a day as needed for cough 07/29 BENZONATATE 200 MG CAPS 923479 BENZONATATE Inactive Immunizations Vaccine Administration Date Value [...] pressure, diastolic - 8462-4 70 mm[Hg] BP cahvez blood pressure, systolic - 8480-6 118 mm[Hg] BP sys pulse rate E&M - 8867-4 84 /min Heart rate weight E&M - 3141-9 192 [lb_av] Weight Measured Diagnostic Results Date Name Value Unit Range Description Lab Report: HGBA1C - Chemistry hemoglobin A1C, blood, as % of total hemoglobin 7.7 % 4.3-6.0 Lab Report: LIPID PANEL- [facility] - Chemistry cholesterol, serum 156 mg/dL 182-964 2972/02/20 HDL cholesterol, serum 52 mg/dL > OR=40 [...] mg/dL Encounters Code Encounter Date Provider Facility CPT-02082 Level 3 Est. Patient 12:24:09 CDT Moy Garcia [facility] CPT-31748 Level 3 Est. Patient 14:34:57 CDT Prosper Arenas MD [facility] CPT-17544 Level 3 New Patient 15:44:53 BUNCH BREAKER MACHINE OPERATOR Mekhi Dukes MD [facility] CPT-56954 Level 3 Est. Patient 14:53:34 BUNCH BREAKER MACHINE OPERATOR Prosper Arenas MD [facility] CPT-56133 Level 4 Est. Patient 10:05:41 BUNCH BREAKER MACHINE OPERATOR [facility] 3 Est. Patient 11:18:32 CDT Moy Garcia [facility] CPT-77357 Level 4 Est. Patient 11:05:10 CDT Moy Garcia [facility] CPT-20248 Level 3 Est. Patient 11:08:27 BUNCH BREAKER MACHINE OPERATOR Moy Garcia [facility] CPT-21939 Level 4 Est. Patient 10:43:59 CDT Prosper Arenas MD [facility] CPT-25676 Level 3 Est. Patient 10:51:19 CDT Moy Garcia [facility] CPT-90853 Level 3 Est. Patient 10:20:31 [facility] CPT-28300 Level 3 Est. [facility] Level 2 Est. Patient 13:54:36 CDT Augustina Mata APRN [facility] CPT-85669 Level 3 Est. Patient 12:00:42 CDT Prosper Arenas MD [facility] CPT-49149 Level 3 Est. Patient 09:57:28 BUNCH BREAKER MACHINE OPERATOR Moy Garcia [facility] CPT-15382 Level 3 Est. Patient 11:41:19 BUNCH BREAKER MACHINE OPERATOR Moy Garcia [facility] CPT-61393 Level 4 Est. Patient 17:07:35 BUNCH BREAKER MACHINE OPERATOR Moy Garcia [facility] CPT-89256 Level 5 Est. Patient 14:33:32 [facility]T [facility] CPT-71889 Level 3 Est. Patient 12:25:35 CDT Prosper Arenas MD [facility] Procedures Code Procedure Name Date Entry Date Standard Description CPT-000 Give Appropriate Flu Vaccine 10:13:55 BUNCH BREAKER MACHINE OPERATOR CPT-000 Give Immunizations Due 10:13:55 BUNCH BREAKER MACHINE OPERATOR CPT-82730 HGBA1C - LAB USE ONLY 09:42:47 BUNCH BREAKER MACHINE OPERATOR CPT-53896 TPSA - LAB USE ONLY 09:42:46 BUNCH BREAKER MACHINE OPERATOR CPT-91248 Venipuncture Draw Fee 09:42:46 BUNCH BREAKER MACHINE OPERATOR CPT-49723 Port a cath flush 13:33:18 BUNCH BREAKER MACHINE OPERATOR CPT-09182 First Vx - Ix admin for Medicare patients 10:42:57 BUNCH BREAKER MACHINE OPERATOR CPT-13565 Fluzone Preservative Free Intramuscular Suspension 10:42 :57 BUNCH BREAKER MACHINE OPERATOR CPT-G0438 Initial Annual Wellness Exam 10:13:55 BUNCH BREAKER MACHINE OPERATOR CPT-000 Give Appropriate Flu Vaccine 10:44:04 CDT CPT-000 Give Pneumovax 10:44:03 CDT CPT-49343 Port a cath flush 17:04:43 CDT CPT-35399 Prevnar 13 11:19:17 CDT CPT-36453 Fluzone Quadrivalent preservative free (>=3yrs.) 11:19: 17 CDT CPT-69969 Immunization Each Additional Inj 11:19:17 CDT CPT-90079 Immunization Single Admin 11:19:17 CDT CPT-21934 Port a cath flush 13:28:22 CDT CPT-TCMM Transitional Care Mgmt-Moderate 13:40:15 CDT CPT-G0008 Administration of Influenza Virus Vaccine 13:59:20 CDT CPT-52051 Fluzone High-Dose Intramuscular Suspension 13:59:20 CDT CPT-97176 Venipuncture Draw Fee 09:56:19 CDT CPT-OV Office Visit 15:46:10 CDT
--- OUTSIDE RECORDS SUMMARY | 2017-08-25 21:37 | XMS REPORT | Clinical Summary ---
Author Author Admin, IWONA Organization [employer] Address Unknown Phone Unavailable Allergies, Adverse Reactions, Alerts Allergy Name Reaction Description Start Date Severity Status Provider ERYTHROMYCIN Stomach cramps Moderate Active Prosper Arenas MD CODEINE Critical Active Maliheh Ziglari COMPUTER OPERATIONS SUPERVISOR DARVOCET Critical Active Maliheh Ziglari COMPUTER OPERATIONS SUPERVISOR LEVAQUIN Critical Active Maliheh Ziglari COMPUTER OPERATIONS SUPERVISOR Conditions or Problems Problem Name Problem Code Onset Date Status Entry Date Provider Comment Standard Description Annotate Diabetes, Type 2 250.00 Resolved Tami Miller parts representative mellitus 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, type II [...] type II, uncontrolled 250.02 Active Maliheh Rodrigoglari COMPUTER OPERATIONS SUPERVISOR Diabetes mellitus 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, [...] with hyperglycemia 250.00 Active 03/21 Maliheh Ziglari COMPUTER OPERATIONS SUPERVISOR Diabetes mellitus 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, type II or unspecified type, not stated as uncontrolled jail use of insulin treatment V58.67 Active Luxiheh Rodrigoglari COMPUTER OPERATIONS SUPERVISOR Long-term (current) use of insulin Diabetes mellitus, type II with hypoglycemia 250.80 Active 07/22 Maliheh Ziglari COMPUTER OPERATIONS SUPERVISOR Diabetes mellitus with other specified manifestations, type II or unspecified type, not stated as uncontrolled 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 Maliheh Ziglari COMPUTER OPERATIONS SUPERVISOR Diabetes mellitus with renal manifestations, type II or unspecified type, not stated as uncontrolled Wellness exam V70.0 Active Dee Palmer APRN Routine general medical examination at a health care facility Fitting and adjustment of vascular catheter V58.81 Active 02/06 Dee Palmer APRN Encounter for fitting and adjustment of vascular catheter Unawareness of hypoglycemia in diabetes mellitus, type II 250.80 Active Maliheh Ziglari COMPUTER OPERATIONS SUPERVISOR Diabetes mellitus with other specified manifestations, [...] 1-2 every 4-6 hrs prn 02/25 HYDROCODONE-ACETAMINOPHEN 53772006631 Active Marina Messina APRN Active ASPIRIN 81 MG ORAL TABLET 1 tablet by mouth daily ASPIRIN 05406993056 No Longer Active Marina Messina APRN Active SIMVASTATIN 80 MG ORAL TABLET 1/2 tablet daily SIMVASTATIN 78157190839 No Longer Active Mekhi Dukes MD Active OMEPRAZOLE 20 MG ORAL CAPSULE DELAYED RELEASE 1 qd OMEPRAZOLE 28803590862 No Longer Active Mekhi Dukes MD Active METOPROLOL TARTRATE 25 MG ORAL TABLET 1/2 tablet twice a day METOPROLOL TARTRATE 38546307593 No Longer Active Mekhi Dukes MD Active LISINOPRIL 5 MG ORAL TABLET 1 daily LISINOPRIL 53179204707 No Longer Active Mekhi Dukes MD Active NOVOLOG FLEXPEN 100 UNIT/ML SUBCUTANEOUS SOLUTION PEN-INJECTOR Take 8 units with each meal, add 1u/50 for blood sugars above 150. INSULIN ASPART 41363704554 Active Moy PARISH Active GABAPENTIN 300 MG ORAL CAPSULE 1 tab BID GABAPENTIN 41056671812 Active Tami Miller RN Active PREDNISONE 20 MG ORAL TABLET Take 2 daily for 3 days and then 1 daily for 3 days PREDNISONE 26836750215 No Longer Active Moy PARISH Active BENZONATATE 200 MG ORAL CAPSULE Take 1 tablet 3 times a day as needed for cough BENZONATATE 14232330988 No Longer Active Prosper Arenas MD Active HYDROCHLOROTHIAZIDE 25 MG ORAL TABLET 1 tablet by mouth daily HYDROCHLOROTHIAZIDE 80261343364 No Longer Active Prosper Arenas MD Active ACCU-CHEK JOANNA PLUS IN VITRO STRIP check blood sugars 5x a day, before each meal and bedtime and 15 minutes after treating a low blood. sugar GLUCOSE BLOOD 29133690003 Active Maliheh Ziglari COMPUTER OPERATIONS SUPERVISOR Active LANTUS SOLOSTAR 100 UNIT/ML SUBCUTANEOUS SOLUTION PEN-INJECTOR Take 40 units at 7-8pm daily INSULIN GLARGINE 98055877353 Active Maliheh Ziglari COMPUTER OPERATIONS SUPERVISOR Active MECLIZINE HCL 25 MG ORAL TABLET 1 daily needed for dizziness 2015 MECLIZINE HCL 29930792980 No Longer Active Maliheh Ziglari COMPUTER OPERATIONS SUPERVISOR Active BENZONATATE 200 MG ORAL CAPSULE 1 tab, 2-3 times a day BENZONATATE 65493591283 No Longer Active Maliheh Ziglari COMPUTER OPERATIONS SUPERVISOR Active HALOPERIDOL 0.5 MG ORAL TABLET one tablet three times a day HALOPERIDOL 85076408477 No Longer Active Maliheh Ziglari COMPUTER OPERATIONS SUPERVISOR Active TRAZODONE HCL 50 MG ORAL TABLET three tablets at bed time TRAZODONE HCL 93308853513 No Longer Active Maliheh Ziglari COMPUTER OPERATIONS SUPERVISOR Active REVLIMID 25 MG ORAL CAPSULE one capsule daily for 21 days then off for 7 days LENALIDOMIDE 58710037782 No Longer Active Maliheh Ziglari COMPUTER OPERATIONS SUPERVISOR Active ZITHROMAX Z-EDDIE 250 MG ORAL TABLET 2 today, then 1 daily for 4 days AZITHROMYCIN 34378755356 No Longer Active Augustina Mata APRN Active NOVOLIN R RELION 100 UNIT/ML INJECTION SOLUTION 30- 40 units each meal sliding scale INSULIN REGULAR HUMAN 15868283333 No Longer Active Maliheh Ziglari COMPUTER OPERATIONS SUPERVISOR Active CALCIUM 500/D 500-200 MG-UNIT ORAL TABLET one tablet daily CALCIUM CARBONATE-VITAMIN D 34266633059 Active Prosper Arenas MD Active HYDROCODONE-ACETAMINOPHEN 5-500 MG ORAL TABLET 1-2 FOUR TIMES A DAY, PRN 2010 HYDROCODONE-ACETAMINOPHEN 36554608726 No Longer Active Prosper Arenas MD Active DOXYCYCLINE HYCLATE 100 MG ORAL CAPSULE take one capsule by mouth twice daily for ten days DOXYCYCLINE HYCLATE 20570191546 No Longer Active Mekhi Dukes MD Active DOXYCYCLINE HYCLATE 100 MG ORAL CAPSULE take one capsule by mouth twice daily for ten days DOXYCYCLINE HYCLATE 100 MG ORAL CAPSULE 3209538 DOXYCYCLINE HYCLATE Inactive HYDROCODONE-ACETAMINOPHEN 5-500 MG ORAL TABLET 1-2 FOUR TIMES A DAY, PRN 2010 HYDROCODONE-ACETAMINOPHEN 5-500 MG ORAL TABLET 626581 HYDROCODONE-ACETAMINOPHEN Inactive NOVOLIN R RELION 100 UNIT/ML INJECTION SOLUTION 30- 40 units each meal sliding scale NOVOLIN R RELION 100 UNIT/ML INJECTION SOLUTION INSULIN REGULAR HUMAN Inactive ZITHROMAX Z-EDDIE 250 MG ORAL TABLET 2 today, then 1 daily for 4 days ZITHROMAX Z-EDDIE 250 MG ORAL TABLET 289584 AZITHROMYCIN Inactive REVLIMID 25 MG ORAL CAPSULE one capsule daily for 21 days then off for 7 days REVLIMID 25 MG ORAL CAPSULE LENALIDOMIDE Inactive TRAZODONE HCL 50 MG ORAL TABLET three tablets at bed time TRAZODONE HCL 50 MG ORAL TABLET 127044 TRAZODONE HCL Inactive HALOPERIDOL 0.5 MG ORAL TABLET one tablet three times a day HALOPERIDOL 0.5 MG ORAL TABLET 300136 HALOPERIDOL Inactive BENZONATATE 200 MG ORAL CAPSULE 1 tab, 2-3 times a day BENZONATATE 200 MG ORAL CAPSULE 504983 BENZONATATE Inactive MECLIZINE HCL 25 MG ORAL TABLET 1 daily needed for dizziness 2015 MECLIZINE HCL 25 MG ORAL TABLET 603996 MECLIZINE HCL Inactive HYDROCHLOROTHIAZIDE 25 MG ORAL TABLET 1 tablet by mouth daily HYDROCHLOROTHIAZIDE 25 MG ORAL TABLET 563713 HYDROCHLOROTHIAZIDE Inactive PREDNISONE 20 MG ORAL TABLET Take 2 daily for 3 days and then 1 daily for 3 days PREDNISONE 20 MG ORAL TABLET 721432 PREDNISONE Inactive LISINOPRIL 5 MG ORAL TABLET 1 daily LISINOPRIL 5 MG ORAL TABLET 539976 LISINOPRIL Inactive METOPROLOL TARTRATE 25 MG ORAL TABLET 1/2 tablet twice a day METOPROLOL TARTRATE 25 MG ORAL TABLET 494417 METOPROLOL TARTRATE Inactive OMEPRAZOLE 20 MG ORAL CAPSULE DELAYED RELEASE 1 qd OMEPRAZOLE 20 MG ORAL CAPSULE DELAYED RELEASE 416569 OMEPRAZOLE Inactive SIMVASTATIN 80 MG ORAL TABLET 1/2 tablet daily SIMVASTATIN 80 MG ORAL TABLET 474533 SIMVASTATIN Inactive ASPIRIN 81 MG ORAL TABLET 1 tablet by mouth daily ASPIRIN 81 MG ORAL TABLET 759355 ASPIRIN Inactive BENZONATATE 200 MG ORAL CAPSULE Take 1 tablet 3 times a day as needed for cough BENZONATATE 200 MG ORAL CAPSULE 624153 BENZONATATE Inactive Immunizations Vaccine Administration Date Value [...] W/DIFF - Chemistry sodium, serum 137 mmol/L 689-192 3268/08/16 carbon dioxide, venous blood 26.3 mmol/L 21.0-32.0 [...] 4.3-6.0 Lab Report: [facility] Chemistry cholesterol, serum 115 mg/dL 174-063 9494/08/18 triglyceride, serum, fasting 89 mg/dL 30-200 HDL cholesterol, serum 46 mg/dL 32-60 LDL cholesterol, serum 51 mg/dL 0-130 blood glucose 104 mg/dL 65-110 Lab Report: LIPID PANEL- [facility] - Chemistry cholesterol, serum 156 mg/dL 313-427 2300/02/20 HDL cholesterol, serum 52 mg/dL > OR=40 [...] mg/dL Encounters Code Encounter Date Provider Facility CPT-94693 Level 3 Est. Patient 17:11:55 LABOR[employer] BRO[employer]ER [employer]ARM Ismael Gracia MD [facility] CPT-61377 Level 4 Est. Patient 16:29:19 CDT Mekhi Dukes MD [facility] CPT-04222 Level 3 New Patient 17:05:24 CDT Ismael Gracia MD [facility] CPT-52526 Level 2 Est. Patient 15:43:17 CDT Mekhi Dukes MD [facility] CPT-85582 Level 3 Est. Patient 09:30:37 CDT [facility] Level 3 Est. Patient 10:00:14 CDT Mekhi Dukes MD [facility] CPT-83127 Level 3 Est. Patient 12:24:09 CDT [facility] CPT-43743 Level 3 Est. Patient 14:34:57 CDT Prosper Arenas MD [facility] CPT-13220 Level 3 New Patient 15:44:53 [employer] Mekhi Dukes MD [facility] CPT-36507 Level 3 Est. Patient 14:53:34 [employer] Prosper Arenas MD [facility] CPT-17136 Level 4 Est. Patient 10:05:41 [employer] [facility] CPT-04325 Level 3 Est. Patient 11:18:32 CDT [facility] CPT-06210 Level 4 Est. Patient 11:05:10 CDT [facility] CPT-21885 Level 3 Est. Patient 11:08:27 [employer] Moy Garcia [facility] CPT-39047 Level 4 Est. Patient 10:43:59 CDT Prosper Arenas MD [facility] CPT-15435 Level 3 Est. Patient 10:51:19 CDT Moy Garcia [facility] CPT-73600 Level 3 Est. Patient 10:20:31 CDT Moy Garcia [facility] CPT-71622 Level 3 Est. Patient 17:08:45 [facility] CPT-86200 Level 2 Est. Patient 13:54:36 CDT Augustina Mata APRN [facility] CPT-98440 Level 3 Est. Patient 12:00:42 CDT Prosper Arenas MD [facility] CPT-72367 Level 3 Est. Patient 09:57:28 [employer] Moy Garcia [facility] CPT-57669 Level 3 Est. Patient 11:41:19 [employer] Luxshoaib Garcia [facility] CPT-90223 Level 4 Est. Patient 17:07:35 [employer] Moy Garcia [facility] CPT-01187 Level 5 Est. Patient 14:33:32 CDT Moy Garcia [facility] CPT-72232 Level 3 Est. Patient 12:25:35 CDT Prosper Arenas MD [facility] Procedures Code Procedure Name Date Entry Date Standard Description CPT-72431 Postop F/U Visit 17:20:20 [employer] CPT-G0439 [facility] Annual Wellness Exam 08:39:41 [employer] CPT-000 Give Appropriate Flu Vaccine 10:13:55 [employer] CPT-000 Give Immunizations Due 10:13:55 [employer] CPT-19420 HGBA1C - LAB USE ONLY 09:42:47 [employer] CPT-54051 TPSA - LAB USE ONLY 09:42:46 [employer] CPT-11827 Venipuncture Draw Fee 09:42:46 [employer] CPT-59441 Port a cath flush 13:33:18 [employer] CPT-43719 First Vx - Ix admin for Medicare patients 10:42:57 [employer] CPT-96886 Fluzone Preservative Free Intramuscular Suspension 10:42 :57 [employer] CPT-G0438 Initial Annual Wellness Exam 10:13:55 [employer] CPT-000 Give Appropriate Flu Vaccine 10:44:04 CDT CPT-000 Give Pneumovax 10:44:03 CDT CPT-12095 Port a cath flush 17:04:43 CDT CPT-92465 Prevnar 13 11:19:17 CDT CPT-63367 Fluzone Quadrivalent preservative free (>=3yrs.) 11:19: 17 CDT CPT-29123 Immunization Each Additional Inj 11:19:17 CDT CPT-73869 Immunization Single Admin 11:19:17 CDT CPT-99135 Port a cath flush 13:28:22 CDT CPT-TCMM Transitional Care Mgmt-Moderate 13:40:15 CDT CPT-G0008 Administration of Influenza Virus Vaccine 13:59:20 CDT CPT-14899 Fluzone High-Dose Intramuscular Suspension 13:59:20 CDT CPT-94350 Venipuncture Draw Fee 09:56:19 CDT CPT-OV Office Visit 15:46:10 CDT
--- OUTSIDE RECORDS SUMMARY | 2017-08-25 21:38 | XMS REPORT | Clinical Summary ---
Author Author Admin, IWONA Organization [employer] Address Unknown Phone Unavailable Allergies, Adverse Reactions, Alerts Allergy Name Reaction Description Start Date Severity Status Provider ERYTHROMYCIN Stomach cramps Moderate Active Prosper Arenas MD CODEINE Critical Active Maliheh Ziglari HAND INSERTER OPERATOR DARVOCET Critical Active Maliheh Ziglari HAND INSERTER OPERATOR LEVAQUIN Critical Active Maliheh Ziglari HAND INSERTER OPERATOR Conditions or Problems Problem Name Problem [...] type II, uncontrolled 250.02 Active Maliheh Ziglari HAND INSERTER OPERATOR Diabetes mellitus 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, [...] with hyperglycemia 250.00 Active 03/21 Maliheh Ziglari HAND INSERTER OPERATOR Diabetes mellitus 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, type II or unspecified type, not stated as uncontrolled 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 V58.67 Active Maliheh Ziglari HAND INSERTER OPERATOR Long-term (current) use of insulin Diabetes mellitus, type II with hypoglycemia 250.80 Active 07/22 Maliheh Ziglari HAND INSERTER OPERATOR Diabetes mellitus with other specified manifestations, type II or unspecified type, not stated as uncontrolled Medication List Medication Instructions Start Date Stop Date Generic Name NDC Status Provider Patient Instruction LANTUS SOLOSTAR 100 UNIT/ML SOLN 45 units at 4-5pm daily, add 2 units dily until am sugar is below 140. INSULIN GLARGINE 21294257149 Active Maliheh Ziglari HAND INSERTER OPERATOR Active MECLIZINE HCL 25 MG TABS 1 daily needed for dizziness MECLIZINE HCL 99906019804 No Longer Active Maliheh Ziglari HAND INSERTER OPERATOR Active ACCU-CHEK JOANNA PLUS STRP check blood sugars 3x a day GLUCOSE BLOOD 52228301229 Active Maliheh Ziglari HAND INSERTER OPERATOR Active NOVOLOG FLEXPEN 100 UNIT/ML SOPN Take 25 units with each meal, add 2u/50 for blood sugars above 150. INSULIN ASPART 65165082702 Active Maliheh Ziglari HAND INSERTER OPERATOR Active BENZONATATE 200 MG CAPS 1 tab, 2-3 times a day BENZONATATE 31895410445 No Longer Active [facility] Rodrigoglari HAND INSERTER OPERATOR Active HALOPERIDOL 0.5 MG TABS one tablet three times a day HALOPERIDOL 43862202219 [facility] TRAZODONE HCL 50 MG TAB three tablets at bed time TRAZODONE HCL 45793263726 No Longer [facility] Active REVLIMID 25 MG CAPS one capsule daily for 21 days then off for 7 days 2014 LENALIDOMIDE 18682008330 No Longer Active [facility] Rodrigoglari HAND INSERTER OPERATOR Active ZITHROMAX Z-EDDIE 250 MG TABS 2 today, then 1 daily for 4 days 2014 AZITHROMYCIN 15474846444 No Longer Active Augustina Yokum [employer] Active NOVOLIN R RELION 100 UNIT/ML INJ SOLN 30- 40 units each meal sliding scale INSULIN REGULAR HUMAN 22070930494 No Longer Active [facility] Rodrigoglari HAND INSERTER OPERATOR Active LISINOPRIL 5 MG TABS 1 daily LISINOPRIL 42569406648 Active Prosper Arenas MD Active CALCIUM 500/D 500-200 MG-UNIT TABS one tablet daily CALCIUM CARBONATE- VITAMIN D 89181618475 Active Prosper Arenas MD Active HYDROCHLOROTHIAZIDE 25 MG TABS 1 tablet by mouth daily HYDROCHLOROTHIAZIDE 99774825673 Active Prosper Arenas MD Active HYDROCODONE-ACETAMINOPHEN 5-500 MG TABS 1-2 FOUR TIMES A DAY, PRN HYDROCODONE-ACETAMINOPHEN 28688338846 No Longer Active Prosper Arenas MD Active SIMVASTATIN 80 MG TABS 1/2 tablet daily SIMVASTATIN 70666845530 Active Prosper Arenas MD Active METOPROLOL TARTRATE 25 MG TABS 1/2 tablet twice a day METOPROLOL TARTRATE 72749304281 Active Prosper Arenas MD Active ASPIRIN 81 MG TAB 1 tablet by mouth daily ASPIRIN 74896519175 Active Prosper Arenas MD Active OMEPRAZOLE 20 MG CPDR 1 qd OMEPRAZOLE 57129544896 Active DARCIE Miller Active DOXYCYCLINE HYCLATE 100 MG CAPS take one capsule by mouth twice daily for ten days DOXYCYCLINE HYCLATE 07023819373 No Longer Active Mekhi Dukes MD Active DOXYCYCLINE HYCLATE 100 MG CAPS take one capsule by mouth twice daily for ten days DOXYCYCLINE HYCLATE 100 MG CAPS 8596660 DOXYCYCLINE HYCLATE Inactive HYDROCODONE-ACETAMINOPHEN 5-500 MG TABS [...] days 2014 ZITHROMAX Z-EDDIE 250 MG TABS 5585205 AZITHROMYCIN Inactive REVLIMID 25 MG CAPS one capsule daily for 21 days then off for 7 days 2014 REVLIMID 25 MG CAPS LENALIDOMIDE Inactive TRAZODONE HCL 50 MG TAB three tablets at bed time TRAZODONE HCL 50 MG TAB 366795 TRAZODONE HCL Inactive HALOPERIDOL 0.5 MG TABS one tablet three times a day HALOPERIDOL 0.5 MG TABS 891017 HALOPERIDOL Inactive BENZONATATE 200 MG CAPS 1 tab, 2-3 times a day BENZONATATE 200 MG CAPS 408203 BENZONATATE Inactive MECLIZINE HCL 25 MG TABS 1 daily needed for dizziness MECLIZINE HCL 25 MG TABS 015070 MECLIZINE HCL Inactive Immunizations Vaccine Administration Date [...] HGBA1C - Chemistry sodium, serum 135 mmol/L 485-016 9378/09/17 potassium, serum 4.0 mmol/L 3.5-5.2 chloride, serum 98 mmol/L 98-107 carbon dioxide, venous blood 29.8 mmol/L 21.0-32.0 blood glucose 180 mg/dL 65-110 calcium, serum 8.7 mg/dL 8.5-10.1 urea nitrogen, blood 17 mg/dL 7-18 creatinine, serum 2.00 mg/dL 0.55-1.30 hemoglobin A1C, blood, as % of total hemoglobin 7.4 % 4.3-6.0 Lab Report: CBC, Basic Metabolic Panel, HGBA1C - Chemistry sodium, serum 137 mmol/L 446-469 6170/10/23 potassium, serum 3.5 mmol/L 3.5-5.2 chloride, serum [...] mg/dL Encounters Code Encounter Date Provider Facility CPT-30100 Level 4 Est. Patient 11:05:10 CDT [facility] CPT-68670 Level 3 Est. Patient 11:08:27 DATABASE ADMINISTRATOR [facility] CPT-78984 Level 4 Est. Patient 10:43:59 CDT Prosper Arenas MD [facility] CPT-18920 Level 3 Est. Patient 10:51:19 CDT [facility] CPT-33181 Level 3 Est. Patient 10:20:31 CDT Maliheh Ziglari [facility] CPT-60553 Level 3 Est. Patient 17:08:45 CDT Moy Garcia [facility] CPT-69025 Level 2 Est. Patient 13:54:36 CDT Augustina Mata APRN [facility] CPT-07341 Level 3 Est. Patient 12:00:42 CDT Prosper Arenas MD [facility] CPT-66339 Level 3 Est. Patient 09:57:28 DATABASE ADMINISTRATOR Moy Garcia [facility] CPT-68231 Level 3 Est. Patient 11:41:19 DATABASE ADMINISTRATOR [facility] Level 4 Est. Patient 17:07:35 DATABASE ADMINISTRATOR [facility] CPT-37814 Level 5 Est. Patient 14:33:32 [facility] Level 3 Est. Patient 12:25:35 CDT Prosper Arenas MD [facility] Procedures Code Procedure Name Date Entry Date Standard Description CPT-000 Give Appropriate Flu Vaccine 10:44:04 CDT CPT-000 Give Pneumovax 10:44:03 CDT CPT-13717 Port a cath flush 17:04:43 CDT CPT-07739 Prevnar 13 11:19:17 CDT CPT-27275 Fluzone Quadrivalent preservative free (>=3yrs.) 11:19: 17 CDT CPT-70839 Immunization Each Additional Inj 11:19:17 CDT CPT-02922 Immunization Single Admin 11:19:17 CDT CPT-41970 Port a cath flush 13:28:22 CDT CPT-TCMM Transitional Care Mgmt-Moderate 13:40:15 CDT CPT-G0008 Administration of Influenza Virus Vaccine 13:59:20 CDT CPT-85707 Fluzone High-Dose Intramuscular Suspension 13:59:20 CDT CPT-85830 Venipuncture Draw Fee 09:56:19 CDT CPT-OV Office Visit 15:46:10 CDT
--- OUTSIDE RECORDS SUMMARY | 2017-08-25 21:39 | XMS REPORT | Clinical Summary ---
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 mellitus 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, type II [...] type II, uncontrolled 250.02 Active Maliheh Rodrigoglari COBOL ENGINEER Diabetes mellitus 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, type [...] with hyperglycemia 250.00 Active 03/21 Maliheh Ziglari COBOL ENGINEER Diabetes mellitus 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, type II or unspecified type, not stated as uncontrolled halfway use of insulin treatment V58.67 Active Luxiheh Rodrigoglari COBOL ENGINEER Long-term (current) use of insulin Diabetes mellitus, type II with hypoglycemia 250.80 Active 07/22 Maliheh Ziglari COBOL ENGINEER Diabetes mellitus with other specified manifestations, type II or unspecified type, not stated as uncontrolled 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 Maliheh Ziglari COBOL ENGINEER Diabetes mellitus with renal manifestations, type II or unspecified type, not stated as uncontrolled Wellness exam V70.0 Active Dee Palmer APRN Routine general medical examination at a health care facility Fitting and adjustment of vascular catheter V58.81 Active 02/06 Dee Palmer APRN Encounter for fitting and adjustment of vascular catheter Unawareness of hypoglycemia in diabetes mellitus, type II 250.80 Active Maliheh Rodrigoglari COBOL ENGINEER Diabetes mellitus with other specified manifestations, type [...] specified as recurrent) Gastritis Inactive Maliheh Jose COBOL ENGINEER Unspecified gastritis and gastroduodenitis, without mention of [...] Mekhi Dukes MD Cough ICD-786.2 Inactive Mekhi Dkues MD Headache ICD-784.0 Inactive Mekhi Dukes MD Inguinal pain, right ICD-789.09 Inactive Mekhi Dukes MD Inguinal hernia ICD-550.90 Inactive Mekhi Dukes MD Gastritis Inactive Janis Gallagher LPN Medication List Medication Instructions Start Date Stop Date Generic Name NDC Status Provider Patient Instruction AZITHROMYCIN 250 MG ORAL TABLET 2 po qd x 1 day, then 1 po qd x 4 days 05/07 AZITHROMYCIN 12011793269 Active Dee Palmer APRN Active GUAIFENESIN DM 400-20 MG ORAL TABLET 1 pill by mouth twice daily, if needed for cough DEXTROMETHORPHAN-GUAIFENESIN 28930377089 Active Dee Palmer APRN Active PREDNISONE 20 MG ORAL TABLET 2 tabs daily for 4 days, 1 tab daily for 4 days, 1/2 tab daily for 4 days PREDNISONE 31785161346 Active Dee Palmer APRN Active ASPIRIN 81 MG ORAL TABLET 1 po qd ASPIRIN 83766338596 Active Dee Palmer APRN Active CALCIUM 500/D 500-200 MG-UNIT ORAL TABLET one tablet daily CALCIUM CARBONATE-VITAMIN D 37905920086 No Longer Active Dee Palmer APRN Active HYDROCODONE-ACETAMINOPHEN 7.5-325 MG ORAL TABLET 1-2 every 4-6 hrs prn 02/25 HYDROCODONE-ACETAMINOPHEN 96925715992 Active Marina Messina BESSY Active ASPIRIN 81 MG ORAL TABLET 1 tablet by mouth daily ASPIRIN 08459875087 No Longer Active Marina King BESSY Active SIMVASTATIN 80 MG ORAL TABLET 1/2 tablet daily SIMVASTATIN 24849006660 No Longer Active Mekhi Dukes MD Active OMEPRAZOLE 20 MG ORAL CAPSULE DELAYED RELEASE 1 qd OMEPRAZOLE 27746904035 No Longer Active Mekhi Dukes MD Active METOPROLOL TARTRATE 25 MG ORAL TABLET 1/2 tablet twice a day METOPROLOL TARTRATE 01851114093 No Longer Active Mekhi Dukes MD Active LISINOPRIL 5 MG ORAL TABLET 1 daily LISINOPRIL 92974725892 No Longer Active Mekhi Dukes MD Active NOVOLOG FLEXPEN 100 UNIT/ML SUBCUTANEOUS SOLUTION PEN-INJECTOR Take 8 units with each meal, add 1u/50 for blood sugars above 150. INSULIN ASPART 32855705284 Active Moy PARISH Active GABAPENTIN 300 MG ORAL CAPSULE 1 tab BID GABAPENTIN 05611309926 Active Tami Miller RN Active PREDNISONE 20 MG ORAL TABLET Take 2 daily for 3 days and then 1 daily for 3 days PREDNISONE 16191748057 No Longer Active Moy PARISH Active BENZONATATE 200 MG ORAL CAPSULE Take 1 tablet 3 times a day as needed for cough BENZONATATE 35394459895 No Longer Active Prosper Arenas MD Active HYDROCHLOROTHIAZIDE 25 MG ORAL TABLET 1 tablet by mouth daily HYDROCHLOROTHIAZIDE 10973946164 No Longer Active Prosper Arenas MD Active ACCU-CHEK JOANNA PLUS IN VITRO STRIP check blood sugars 5x a day, before each meal and bedtime and 15 minutes after treating a low blood. sugar GLUCOSE BLOOD 05649961857 Active Moy PARISH Active LANTUS SOLOSTAR 100 UNIT/ML SUBCUTANEOUS SOLUTION PEN-INJECTOR Take 40 units at 7-8pm daily INSULIN GLARGINE 00980179255 Active Maliheh Ziglari COBOL ENGINEER Active MECLIZINE HCL 25 MG ORAL TABLET 1 daily needed for dizziness 2015 MECLIZINE HCL 09560679608 No Longer Active Maliheh Ziglari COBOL ENGINEER Active BENZONATATE 200 MG ORAL CAPSULE 1 tab, 2-3 times a day BENZONATATE 37901326487 No Longer Active Maliheh Ziglari COBOL ENGINEER Active HALOPERIDOL 0.5 MG ORAL TABLET one tablet three times a day HALOPERIDOL 50618971766 No Longer Active Maliheh Ziglari COBOL ENGINEER Active TRAZODONE HCL 50 MG ORAL TABLET three tablets at bed time TRAZODONE HCL 58213824975 No Longer Active [facility] Zigl[facility] COBOL ENGINEER Active REVLIMID 25 MG ORAL CAPSULE one capsule daily for 21 days then off for 7 days LENALIDOMIDE 05313820686 No Longer Active Maleh Ziglari COBOL ENGINEER Active ZITHROMAX Z-EDDIE 250 MG ORAL TABLET 2 today, then 1 daily for 4 days AZITHROMYCIN 20338047208 No Longer Active Augustina Mata SAFETY INSTRUCTION POLICE OFFICER Active NOVOLIN R RELION 100 UNIT/ML INJECTION SOLUTION 30- 40 units each meal sliding scale INSULIN REGULAR HUMAN 32257667239 No Longer Active Moy Wallaceglari COBOL ENGINEER Active HYDROCODONE-ACETAMINOPHEN 5-500 MG ORAL TABLET 1-2 FOUR TIMES A DAY, PRN 2010 HYDROCODONE-ACETAMINOPHEN 50245259738 No Longer Active Prosper Arenas MD Active DOXYCYCLINE HYCLATE 100 MG ORAL CAPSULE take one capsule by mouth twice daily for ten days DOXYCYCLINE HYCLATE 97417247505 No Longer Active Mekhi Dukes MD Active DOXYCYCLINE HYCLATE 100 MG ORAL CAPSULE take one capsule by mouth twice daily for ten days DOXYCYCLINE HYCLATE 100 MG ORAL CAPSULE 6804848 DOXYCYCLINE HYCLATE Inactive HYDROCODONE-ACETAMINOPHEN 5-500 MG ORAL TABLET 1-2 FOUR TIMES A DAY, PRN 2010 HYDROCODONE-ACETAMINOPHEN 5-500 MG ORAL TABLET 776877 HYDROCODONE-ACETAMINOPHEN Inactive NOVOLIN R RELION 100 UNIT/ML INJECTION SOLUTION 30- 40 units each meal sliding scale NOVOLIN R RELION 100 UNIT/ML INJECTION SOLUTION INSULIN REGULAR HUMAN Inactive ZITHROMAX Z-EDDIE 250 MG ORAL TABLET 2 today, then 1 daily for 4 days ZITHROMAX Z-EDDIE 250 MG ORAL TABLET 718039 AZITHROMYCIN Inactive REVLIMID 25 MG ORAL CAPSULE one capsule daily for 21 days then off for 7 days REVLIMID 25 MG ORAL CAPSULE LENALIDOMIDE Inactive TRAZODONE HCL 50 MG ORAL TABLET three tablets at bed time TRAZODONE HCL 50 MG ORAL TABLET 389502 TRAZODONE HCL Inactive HALOPERIDOL 0.5 MG ORAL TABLET one tablet three times a day HALOPERIDOL 0.5 MG ORAL TABLET 992190 HALOPERIDOL Inactive BENZONATATE 200 MG ORAL CAPSULE 1 tab, 2-3 times a day BENZONATATE 200 MG ORAL CAPSULE 551306 BENZONATATE Inactive MECLIZINE HCL 25 MG ORAL TABLET 1 daily needed for dizziness 2015 MECLIZINE HCL 25 MG ORAL TABLET 694671 MECLIZINE HCL Inactive HYDROCHLOROTHIAZIDE 25 MG ORAL TABLET 1 tablet by mouth daily HYDROCHLOROTHIAZIDE 25 MG ORAL TABLET 232253 HYDROCHLOROTHIAZIDE Inactive PREDNISONE 20 MG ORAL TABLET Take 2 daily for 3 days and then 1 daily for 3 days PREDNISONE 20 MG ORAL TABLET 497239 PREDNISONE Inactive LISINOPRIL 5 MG ORAL TABLET 1 daily LISINOPRIL 5 MG ORAL TABLET 757459 LISINOPRIL Inactive METOPROLOL TARTRATE 25 MG ORAL TABLET 1/2 tablet twice a day METOPROLOL TARTRATE 25 MG ORAL TABLET 046605 METOPROLOL TARTRATE Inactive OMEPRAZOLE 20 MG ORAL CAPSULE DELAYED RELEASE 1 qd OMEPRAZOLE 20 MG ORAL CAPSULE DELAYED RELEASE 703766 OMEPRAZOLE Inactive SIMVASTATIN 80 MG ORAL TABLET 1/2 tablet daily SIMVASTATIN 80 MG ORAL TABLET 872747 SIMVASTATIN Inactive ASPIRIN 81 MG ORAL TABLET 1 tablet by mouth daily ASPIRIN 81 MG ORAL TABLET 022037 ASPIRIN Inactive CALCIUM 500/D 500-200 MG-UNIT ORAL TABLET one tablet daily CALCIUM 500/D 500-200 MG-UNIT ORAL TABLET CALCIUM CARBONATE-VITAMIN D Inactive BENZONATATE 200 MG ORAL CAPSULE Take 1 tablet 3 times a day as needed for cough BENZONATATE 200 MG ORAL CAPSULE 500881 BENZONATATE Inactive Immunizations Vaccine Administration Date Value [...] W/DIFF - Chemistry sodium, serum 137 mmol/L 051-528 6945/08/16 carbon dioxide, venous blood 26.3 mmol/L 21.0-32.0 [...] LABS - Chemistry cholesterol, serum 115 mg/dL 909-717 1647/08/18 triglyceride, serum, fasting 89 mg/dL 30-200 HDL cholesterol, serum 46 mg/dL 32-60 LDL cholesterol, serum 51 mg/dL 0-130 blood glucose 104 mg/dL 65-110 Lab Report: LIPID PANEL- REPOWER LAB - Chemistry cholesterol, serum 156 mg/dL 851-424 6713/02/20 HDL cholesterol, serum 52 mg/dL > OR=40 [...] mg/dL Encounters Code Encounter Date Provider Facility CPT-13639 Level 3 Est. Patient 14:09:25 CERTIFIED NUCLEAR MEDICINE TECHNOLOGIST Ryanmakenna Palmer APRN [facility] CPT-87197 Level 3 Est. Patient 10:53:32 CERTIFIED NUCLEAR MEDICINE TECHNOLOGIST Moy Garcia [facility] CPT-97548 Level 3 Est. Patient 17:11:55 CERTIFIED NUCLEAR MEDICINE TECHNOLOGIST Ismael Gracia MD [facility] CPT-73585 Level 4 Est. Patient 16:29:19 CDT Mekhi Dukes MD [facility] CPT-19147 Level 3 New Patient 17:05:24 CDT Ismael Gracia MD [facility] CPT-60427 Level 2 Est. Patient 15:43:17 CDT Mekhi Dukes MD [facility] CPT-49055 Level 3 Est. [facility] 09:30:37 [facility] Level 3 Est. Patient 10:00:14 CDT Mekhi Dukes MD [facility] CPT-07127 Level 3 Est. Patient 12:24:09 CDT [facility] CPT-26894 Level 3 Est. Patient 14:34:57 CDT Prosper Arenas MD [facility] CPT-27307 Level 3 New Patient 15:44:53 CERTIFIED NUCLEAR MEDICINE TECHNOLOGIST Mekhi Dukes MD [facility] CPT-19423 Level 3 Est. Patient 14:53:34 CERTIFIED NUCLEAR MEDICINE TECHNOLOGIST Prosper Arenas MD [facility] CPT-29341 Level 4 Est. Patient 10:05:41 CERTIFIED NUCLEAR MEDICINE TECHNOLOGIST Moy Garcia [facility] CPT-56200 Level 3 Est. Patient 11:18:32 CDT [facility] CPT-21575 Level 4 Est. Patient 11:05:10 CDT [facility] CPT-94400 Level 3 Est. Patient 11:08:27 CERTIFIED NUCLEAR MEDICINE TECHNOLOGIST Luxshoaib Garcia [facility] CPT-27951 Level 4 Est. Patient 10:43:59 CDT Prosper Arenas MD [facility] CPT-28348 Level 3 Est. Patient 10:51:19 CDT [facility] Jose [facility] CPT-32458 Level 3 Est. Patient 10:20:31 CDT [facility] Level 3 Est. Patient 17:08:45 CDT [facility] CPT-30811 Level 2 Est. Patient 13:54:36 CDT Augustina Mata APRN [facility] CPT-81888 Level 3 Est. Patient 12:00:42 CDT Prosper Arenas MD [facility] CPT-78819 Level 3 Est. Patient 09:57:28 CERTIFIED NUCLEAR MEDICINE TECHNOLOGIST [facility] CPT-74199 Level 3 Est. Patient 11:41:19 CERTIFIED NUCLEAR MEDICINE TECHNOLOGIST [facility] CPT-78045 Level 4 Est. Patient 17:07:35 CERTIFIED NUCLEAR MEDICINE TECHNOLOGIST [facility] CPT-19423 Level 5 Est. Patient 14:33:32 CDT [facility] CPT-22680 Level 3 Est. Patient 12:25:35 CDT Prosper Arenas MD [facility] Procedures Code Procedure Name Date Entry Date Standard Description CPT-72733 Chest, 2 views 14:17:20 CERTIFIED NUCLEAR MEDICINE TECHNOLOGIST CPT-87433 Postop F/U Visit 14:44:45 CERTIFIED NUCLEAR MEDICINE TECHNOLOGIST CPT-19399 Postop F/U Visit 17:20:20 CERTIFIED NUCLEAR MEDICINE TECHNOLOGIST CPT-G0439 Subsequent Annual Wellness Exam 08:39:41 CERTIFIED NUCLEAR MEDICINE TECHNOLOGIST CPT-000 Give Appropriate Flu Vaccine 10:13:55 CERTIFIED NUCLEAR MEDICINE TECHNOLOGIST CPT-000 Give Immunizations Due 10:13:55 CERTIFIED NUCLEAR MEDICINE TECHNOLOGIST CPT-29072 HGBA1C - LAB USE ONLY 09:42:47 CERTIFIED NUCLEAR MEDICINE TECHNOLOGIST CPT-75828 TPSA - LAB USE ONLY 09:42:46 CERTIFIED NUCLEAR MEDICINE TECHNOLOGIST CPT-76469 Venipuncture Draw Fee 09:42:46 CERTIFIED NUCLEAR MEDICINE TECHNOLOGIST CPT-96352 Port a cath flush 13:33:18 CERTIFIED NUCLEAR MEDICINE TECHNOLOGIST CPT-46617 First Vx - Ix admin for Medicare patients 10:42:57 CERTIFIED NUCLEAR MEDICINE TECHNOLOGIST CPT-37706 Fluzone Preservative Free Intramuscular Suspension 10:42 :57 CERTIFIED NUCLEAR MEDICINE TECHNOLOGIST CPT-G0438 Initial Annual Wellness Exam 10:13:55 CERTIFIED NUCLEAR MEDICINE TECHNOLOGIST CPT-000 Give Appropriate Flu Vaccine 10:44:04 CDT CPT-000 Give Pneumovax 10:44:03 CDT CPT-80107 Port a cath flush 17:04:43 CDT CPT-19732 Prevnar 13 11:19:17 CDT CPT-70089 Fluzone Quadrivalent preservative free (>=3yrs.) 11:19: 17 CDT CPT-40548 Immunization Each Additional Inj 11:19:17 CDT CPT-79362 Immunization Single Admin 11:19:17 CDT CPT-42842 Port a cath flush 13:28:22 CDT CPT-TCMM Transitional Care Mgmt-Moderate 13:40:15 CDT CPT-G0008 Administration of Influenza Virus Vaccine 13:59:20 CDT CPT-79557 Fluzone High-Dose Intramuscular Suspension 13:59:20 CDT CPT-87676 Venipuncture Draw Fee 09:56:19 CDT CPT-OV Office Visit 15:46:10 CDT
--- OUTSIDE RECORDS SUMMARY | 2017-08-25 21:40 | XMS REPORT | Clinical Summary ---
Author Author Admin, [place] Organization [employer] Address Unknown Phone Unavailable Allergies, Adverse Reactions, Alerts Allergy Name Reaction Description Start Date Severity Status Provider ERYTHROMYCIN Stomach cramps Moderate Active Prosper Arenas MD CODEINE Critical Active Maliheh Ziglari GUEST SERVICE SUPERVISOR DARVOCET Critical Active Maliheh Ziglari GUEST SERVICE SUPERVISOR LEVAQUIN Critical Active Maliheh Ziglari GUEST SERVICE SUPERVISOR Conditions or Problems Problem Name Problem Code Onset Date Status Entry Date Provider Comment Standard Description Annotate Diabetes, Type 2 250.00 Resolved Tami Miller transitional care manager mellitus 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, type II [...] type II, uncontrolled 250.02 Active Maliheh Rodrigoglari GUEST SERVICE SUPERVISOR Diabetes mellitus 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, [...] with hyperglycemia 250.00 Active 03/21 Maliheh Ziglari GUEST SERVICE SUPERVISOR Diabetes mellitus 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, type II or unspecified type, not stated as uncontrolled half-way use of insulin treatment V58.67 Active Luxiheh Rodrigoglari GUEST SERVICE SUPERVISOR Long-term (current) use of insulin Diabetes mellitus, type II with hypoglycemia 250.80 Active 07/22 Maliheh Ziglari GUEST SERVICE SUPERVISOR Diabetes mellitus with other specified manifestations, type II or unspecified type, not stated as uncontrolled 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 Maliheh Ziglari GUEST SERVICE SUPERVISOR Diabetes mellitus with renal manifestations, type II or unspecified type, not stated as uncontrolled Wellness exam V70.0 Active Dee Palmer APRN Routine general medical examination at a health care facility Fitting and adjustment of vascular catheter V58.81 Active 02/06 Dee Palmer APRN Encounter for fitting and adjustment of vascular catheter Unawareness of hypoglycemia in diabetes mellitus, type II 250.80 Active Maliheh Ziglari GUEST SERVICE SUPERVISOR Diabetes mellitus with other specified manifestations, [...] specified as recurrent) Gastritis Active Maliheh Ziglari GUEST SERVICE SUPERVISOR Unspecified gastritis and gastroduodenitis, without mention of [...] and adjustment of vascular catheter ICD-V58.81 Inactive Mekih Dukes MD Cough ICD-786.2 Inactive Mekhi Dukes MD Headache ICD-784.0 Inactive Mekhi Dukes MD Medication List Medication Instructions Start Date Stop Date Generic Name NDC Status Provider Patient Instruction HYDROCODONE-ACETAMINOPHEN 7.5-325 MG ORAL TABLET 1-2 every 4-6 hrs prn 02/25 HYDROCODONE-ACETAMINOPHEN 83274892672 Active Marina Messina APRN Active ASPIRIN 81 MG ORAL TABLET 1 tablet by mouth daily ASPIRIN 93275889239 No Longer Active Marina Messina APRN Active SIMVASTATIN 80 MG ORAL TABLET 1/2 tablet daily SIMVASTATIN 30979492545 No Longer Active Mekhi Dukes MD Active OMEPRAZOLE 20 MG ORAL CAPSULE DELAYED RELEASE 1 qd OMEPRAZOLE 11281541384 No Longer Active Mekhi Dukes MD Active METOPROLOL TARTRATE 25 MG ORAL TABLET 1/2 tablet twice a day METOPROLOL TARTRATE 17598229550 No Longer Active Mekhi Dukes MD Active LISINOPRIL 5 MG ORAL TABLET 1 daily LISINOPRIL 57070382321 No Longer Active Mekhi Dukes MD Active NOVOLOG FLEXPEN 100 UNIT/ML SUBCUTANEOUS SOLUTION PEN-INJECTOR Take 8 units with each meal, add 1u/50 for blood sugars above 150. INSULIN ASPART 58886448938 Active Malpapo DURANTP Active GABAPENTIN 300 MG ORAL CAPSULE 1 tab BID GABAPENTIN 00182043920 Active Tami Miller RN Active PREDNISONE 20 MG ORAL TABLET Take 2 daily for 3 days and then 1 daily for 3 days PREDNISONE 28213427593 No Longer Active Maliheh Ziglari GUEST SERVICE SUPERVISOR Active BENZONATATE 200 MG ORAL CAPSULE Take 1 tablet 3 times a day as needed for cough BENZONATATE 72088700449 No Longer Active Prosper Arenas MD Active HYDROCHLOROTHIAZIDE 25 MG ORAL TABLET 1 tablet by mouth daily HYDROCHLOROTHIAZIDE 47790433681 No Longer Active Prosper Arenas MD Active ACCU-CHEK JOANNA PLUS IN VITRO STRIP check blood sugars 5x a day, before each meal and bedtime and 15 minutes after treating a low blood. sugar GLUCOSE BLOOD 75182922664 Active Maliheh Ziglari GUEST SERVICE SUPERVISOR Active LANTUS SOLOSTAR 100 UNIT/ML SUBCUTANEOUS SOLUTION PEN-INJECTOR Take 40 units at 7-8pm daily INSULIN GLARGINE 38955805667 Active Maliheh Ziglari GUEST SERVICE SUPERVISOR Active MECLIZINE HCL 25 MG ORAL TABLET 1 daily needed for dizziness 2015 MECLIZINE HCL 68664892604 No Longer Active Maliheh Ziglari GUEST SERVICE SUPERVISOR Active BENZONATATE 200 MG ORAL CAPSULE 1 tab, 2-3 times a day BENZONATATE 69227161219 No Longer Active Maliheh Ziglari GUEST SERVICE SUPERVISOR Active HALOPERIDOL 0.5 MG ORAL TABLET one tablet three times a day HALOPERIDOL 11876307563 No Longer Active Maliheh Ziglari GUEST SERVICE SUPERVISOR Active TRAZODONE HCL 50 MG ORAL TABLET three tablets at bed time TRAZODONE HCL 46136078733 No Longer Active Maliheh Ziglari GUEST SERVICE SUPERVISOR Active REVLIMID 25 MG ORAL CAPSULE one capsule daily for 21 days then off for 7 days LENALIDOMIDE 06540891072 No Longer Active Maliheh Ziglari GUEST SERVICE SUPERVISOR Active ZITHROMAX Z-EDDIE 250 MG ORAL TABLET 2 today, then 1 daily for 4 days AZITHROMYCIN 45271329482 No Longer Active Augustina Mata APRN Active NOVOLIN R RELION 100 UNIT/ML INJECTION SOLUTION 30- 40 units each meal sliding scale INSULIN REGULAR HUMAN 09869514353 No Longer Active Maliheh Ziglari GUEST SERVICE SUPERVISOR Active CALCIUM 500/D 500-200 MG-UNIT ORAL TABLET one tablet daily CALCIUM CARBONATE-VITAMIN D 33878939292 Active Prosper Arenas MD Active HYDROCODONE-ACETAMINOPHEN 5-500 MG ORAL TABLET 1-2 FOUR TIMES A DAY, PRN 2010 HYDROCODONE-ACETAMINOPHEN 48830754625 No Longer Active Prosper Arenas MD Active DOXYCYCLINE HYCLATE 100 MG ORAL CAPSULE take one capsule by mouth twice daily for ten days DOXYCYCLINE HYCLATE 20048375749 No Longer Active Mekhi Dukes MD Active DOXYCYCLINE HYCLATE 100 MG ORAL CAPSULE take one capsule by mouth twice daily for ten days DOXYCYCLINE HYCLATE 100 MG ORAL CAPSULE 1240809 DOXYCYCLINE HYCLATE Inactive HYDROCODONE-ACETAMINOPHEN 5-500 MG ORAL TABLET 1-2 FOUR TIMES A DAY, PRN 2010 HYDROCODONE-ACETAMINOPHEN 5-500 MG ORAL TABLET 742281 HYDROCODONE-ACETAMINOPHEN Inactive NOVOLIN R RELION 100 UNIT/ML INJECTION SOLUTION 30- 40 units each meal sliding scale NOVOLIN R RELION 100 UNIT/ML INJECTION SOLUTION INSULIN REGULAR HUMAN Inactive ZITHROMAX Z-EDDIE 250 MG ORAL TABLET 2 today, then 1 daily for 4 days ZITHROMAX Z-EDDIE 250 MG ORAL TABLET 073527 AZITHROMYCIN Inactive REVLIMID 25 MG ORAL CAPSULE one capsule daily for 21 days then off for 7 days REVLIMID 25 MG ORAL CAPSULE LENALIDOMIDE Inactive TRAZODONE HCL 50 MG ORAL TABLET three tablets at bed time TRAZODONE HCL 50 MG ORAL TABLET 560299 TRAZODONE HCL Inactive HALOPERIDOL 0.5 MG ORAL TABLET one tablet three times a day HALOPERIDOL 0.5 MG ORAL TABLET 217789 HALOPERIDOL Inactive BENZONATATE 200 MG ORAL CAPSULE 1 tab, 2-3 times a day BENZONATATE 200 MG ORAL CAPSULE 711364 BENZONATATE Inactive MECLIZINE HCL 25 MG ORAL TABLET 1 daily needed for dizziness 2015 MECLIZINE HCL 25 MG ORAL TABLET 334594 MECLIZINE HCL Inactive HYDROCHLOROTHIAZIDE 25 MG ORAL TABLET 1 tablet by mouth daily HYDROCHLOROTHIAZIDE 25 MG ORAL TABLET 656971 HYDROCHLOROTHIAZIDE Inactive PREDNISONE 20 MG ORAL TABLET Take 2 daily for 3 days and then 1 daily for 3 days PREDNISONE 20 MG ORAL TABLET 842710 PREDNISONE Inactive LISINOPRIL 5 MG ORAL TABLET 1 daily LISINOPRIL 5 MG ORAL TABLET 503658 LISINOPRIL Inactive METOPROLOL TARTRATE 25 MG ORAL TABLET 1/2 tablet twice a day METOPROLOL TARTRATE 25 MG ORAL TABLET 464709 METOPROLOL TARTRATE Inactive OMEPRAZOLE 20 MG ORAL CAPSULE DELAYED RELEASE 1 qd OMEPRAZOLE 20 MG ORAL CAPSULE DELAYED RELEASE 702402 OMEPRAZOLE Inactive SIMVASTATIN 80 MG ORAL TABLET 1/2 tablet daily SIMVASTATIN 80 MG ORAL TABLET 235919 SIMVASTATIN Inactive ASPIRIN 81 MG ORAL TABLET 1 tablet by mouth daily ASPIRIN 81 MG ORAL TABLET 052261 ASPIRIN Inactive BENZONATATE 200 MG ORAL CAPSULE Take 1 tablet 3 times a day as needed for cough BENZONATATE 200 MG ORAL CAPSULE 584316 BENZONATATE Inactive Immunizations Vaccine Administration Date Value [...] Measured blood pressure, diastolic 70 mm[Hg] BP chvaez blood pressure, systolic 150 mm[Hg] BP sys [...] W/DIFF - Chemistry sodium, serum 137 mmol/L 870-681 1389/08/16 carbon dioxide, venous blood 26.3 mmol/L 21.0-32.0 [...] LABS - Chemistry cholesterol, serum 115 mg/dL 833-070 0450/08/18 triglyceride, serum, fasting 89 mg/dL 30-200 HDL cholesterol, serum 46 mg/dL 32-60 LDL cholesterol, serum 51 mg/dL 0-130 blood glucose 104 mg/dL 65-110 Lab Report: LIPID PANEL- REPOWER LAB - Chemistry cholesterol, serum 156 mg/dL 543-584 6500/02/20 HDL cholesterol, serum 52 mg/dL > OR=40 [...] mg/dL Encounters Code Encounter Date Provider Facility CPT-01331 Level 3 Est. [facility] 10:53:32 [facility] CPT-23605 Level 3 Est. Patient 17:11:55 RN NIGHT Ismael Gracia MD [facility] CPT-19747 Level 4 Est. Patient 16:29:19 CDT Mekhi Dukes MD [facility] CPT-06223 Level 3 New Patient 17:05:24 CDT Ismael Gracia MD [facility] CPT-11665 Level 2 Est. Patient 15:43:17 CDT Mekhi Dukes MD [facility] CPT-48275 Level 3 Est. Patient 09:30:37 CDT [facility] CPT-85913 Level 3 Est. Patient 10:00:14 CDT Mekhi Dukes MD [facility] CPT-92422 Level 3 Est. Patient 12:24:09 CDT Moy Garcia [facility] CPT-47173 Level 3 Est. Patient 14:34:57 CDT Prosper Arenas MD [facility] CPT-86625 Level 3 New Patient 15:44:53 RN NIGHT Mekhi Dukes MD [facility] CPT-86099 Level 3 Est. Patient 14:53:34 RN NIGHT Prosper Arenas MD [facility] CPT-11005 Level 4 Est. Patient 10:05:41 RN NIGHT Moy Rodrigokymrex [facility] CPT-97718 Level 3 Est. Patient 11:18:32 [facility] 4 Est[facility] Patient 11:05:10 CDT Moy Garcia [facility] CPT-57993 Level 3 Est. Patient 11:08:27 RN NIGHT Moy Garcia [facility] CPT-42291 Level 4 Est. Patient 10:43:59 CDT Prosper Arenas MD [facility] CPT-21534 Level 3 Est. Patient 10:51:19 CDT Moy Garcia [facility] CPT-89360 Level 3 Est. Patient 10:20:31 CDT Moy Garcia [facility] CPT-18538 Level 3 Est. Patient 17:08:45 CDT Moy Garcia [facility] CPT-67140 Level 2 Est. Patient 13:54:36 CDT Augustina Mata APRN [facility] CPT-81300 Level 3 Est. Patient 12:00:42 CDT Prosper Arenas MD [facility]-48999 Level 3 Est. Patient 09:57:28 [facility] CPT-91963 Level 3 Est. Patient 11:41:19 RN NIGHT Luxshoaib Wallacerex [facility] CPT-38249 Level 4 Est. Patient 17:07:35 RN N[place] [facility] [place]-79063 Level 5 Est. Patient 14:33:32 CDT [facility] CPT-13388 Level 3 Est. Patient 12:25:35 CDT Prosper Arenas MD [facility] Procedures Code Procedure Name Date Entry Date Standard Description CPT-16608 Postop F/U Visit 17:20:20 RN NIGHT CPT-G0439 Subsequent Annual Wellness Exam 08:39:41 RN NIGHT CPT-000 Give Appropriate Flu Vaccine 10:13:55 RN NIGHT CPT-000 Give Immunizations Due 10:13:55 RN NIGHT CPT-58321 HGBA1C - LAB USE ONLY 09:42:47 RN NIGHT CPT-49490 TPSA - LAB USE ONLY 09:42:46 RN NIGHT CPT-06518 Venipuncture Draw Fee 09:42:46 RN NIGHT CPT-61644 Port a cath flush 13:33:18 RN NIGHT CPT-21548 First Vx - Ix admin for Medicare patients 10:42:57 RN NIGHT CPT-75706 Fluzone Preservative Free Intramuscular Suspension 10:42 :57 RN NIGHT CPT-G0438 Initial Annual Wellness Exam 10:13:55 RN NIGHT CPT-000 Give Appropriate Flu Vaccine 10:44:04 CDT CPT-000 Give Pneumovax 10:44:03 CDT CPT-07799 Port a cath flush 17:04:43 CDT CPT-95767 Prevnar 13 11:19:17 CDT CPT-48675 Fluzone Quadrivalent preservative free (>=3yrs.) 11:19: 17 CDT CPT-10263 Immunization Each Additional Inj 11:19:17 CDT CPT-40272 Immunization Single Admin 11:19:17 CDT CPT-12948 Port a cath flush 13:28:22 CDT CPT-TCMM Transitional Care Mgmt-Moderate 13:40:15 CDT CPT-G0008 Administration of Influenza Virus Vaccine 13:59:20 CDT CPT-27002 Fluzone High-Dose Intramuscular Suspension 13:59:20 CDT CPT-51511 Venipuncture Draw Fee 09:56:19 CDT CPT-OV Office Visit 15:46:10 CDT
--- OUTSIDE RECORDS SUMMARY | 2017-08-25 21:41 | XMS REPORT | Clinical Summary ---
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 mellitus 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, type II [...] type II, uncontrolled 250.02 Active Maliheh Rodrigoglari HAND CANDY MOLDER Diabetes mellitus 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, [...] hyperglycemia 250.00 Active 03/21 Maliheh Ziglari HAND CANDY MOLDER Diabetes mellitus 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, type II or unspecified type, not stated as uncontrolled half-way use of insulin treatment V58.67 Active Luxiheh Rodrigoglari HAND CANDY MOLDER Long-term (current) use of insulin Diabetes mellitus, type II with hypoglycemia 250.80 Active 07/22 Maliheh Ziglari HAND CANDY MOLDER Diabetes mellitus with other specified manifestations, type II or unspecified type, not stated as uncontrolled 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 Maliheh Ziglari HAND CANDY MOLDER Diabetes mellitus with renal manifestations, type II or unspecified type, not stated as uncontrolled Wellness exam V70.0 Active Dee Palmer APRN Routine general medical examination at a health care facility Fitting and adjustment of vascular catheter V58.81 Active 02/06 Dee Palmer APRN Encounter for fitting and adjustment of vascular catheter Unawareness of hypoglycemia in diabetes mellitus, type II 250.80 Active Maliheh Ziglari HAND CANDY MOLDER Diabetes mellitus with other specified manifestations, type II or unspecified type, not stated as uncontrolled Groin pain, right 789.09 Active Prosper Arenas MD Abdominal pain, other specified site; multiple sites Obesity 278.00 Inactive Prosper Arenas MD Obesity, unspecified Obesity (BMI=30-39.9) 278.00 Active aKrrie Lawson APRN Obesity, unspecified Cough 786.2 Resolved [...] MG ORAL TABLET 1/2 tablet daily SIMVASTATIN 63425840758 No Longer Active Mekhi Dukes MD Active OMEPRAZOLE 20 MG ORAL CAPSULE DELAYED RELEASE 1 qd OMEPRAZOLE 74440172655 No Longer Active Mekhi Dukes MD Active METOPROLOL TARTRATE 25 MG ORAL TABLET 1/2 tablet twice a day METOPROLOL TARTRATE 72166255996 No Longer Active Mekhi Dukes MD Active LISINOPRIL 5 MG ORAL TABLET 1 daily LISINOPRIL 17361447941 No Longer Active Mekhi Dukes MD Active NOVOLOG FLEXPEN 100 UNIT/ML SUBCUTANEOUS SOLUTION PEN-INJECTOR Take 8 units with each meal, add 1u/50 for blood sugars above 150. INSULIN ASPART 47730626901 Active Moy PARISH Active GABAPENTIN 300 MG ORAL CAPSULE 1 tab BID GABAPENTIN 78184492043 Active Tami Miller RN Active PREDNISONE 20 MG ORAL TABLET Take 2 daily for 3 days and then 1 daily for 3 days PREDNISONE 68541399768 No Longer Active Moy PARISH Active BENZONATATE 200 MG ORAL CAPSULE Take 1 tablet 3 times a day as needed for cough BENZONATATE 85175256272 No Longer Active Prosper Arenas MD Active HYDROCHLOROTHIAZIDE 25 MG ORAL TABLET 1 tablet by mouth daily HYDROCHLOROTHIAZIDE 94542554742 No Longer Active Prosper Arenas MD Active ACCU-CHEK JOANNA PLUS IN VITRO STRIP check blood sugars 5x a day, before each meal and bedtime and 15 minutes after treating a low blood. sugar GLUCOSE BLOOD 01544695963 Active Malpapo Wallaceglrex PARISH Active LANTUS SOLOSTAR 100 UNIT/ML SUBCUTANEOUS SOLUTION PEN-INJECTOR Take 40 units at 7-8pm daily INSULIN GLARGINE 17544333462 Active oMy Ziglari HAND CANDY MOLDER Active MECLIZINE HCL 25 MG ORAL TABLET 1 daily needed for dizziness 2015 MECLIZINE HCL 42581901388 No Longer Active Maleh Ziglari HAND CANDY MOLDER Active BENZONATATE 200 MG ORAL CAPSULE 1 tab, 2-3 times a day BENZONATATE 51526135823 No Longer Active [facility] Ziglari HAND CANDY MOLDER Active HALOPERIDOL 0.5 MG ORAL TABLET one tablet three times a day HALOPERIDOL 08327580206 No Longer Active [facility] Ziglari HAND CANDY MOLDER Active TRAZODONE HCL 50 MG ORAL TABLET three tablets at bed time TRAZODONE HCL 78694517106 No Longer Active [facility] Ziglari HAND CANDY MOLDER Active REVLIMID 25 MG ORAL CAPSULE one capsule daily for 21 days then off for 7 days LENALIDOMIDE 56372148920 No Longer Active [facility] Ziglari HAND CANDY MOLDER Active ZITHROMAX Z-EDDIE 250 MG ORAL TABLET 2 today, then 1 daily for 4 days AZITHROMYCIN 23832673808 No Longer Active Augustina Adolfo DOHERTY Active NOVOLIN R RELION 100 UNIT/ML INJECTION SOLUTION 30- 40 units each meal sliding scale INSULIN REGULAR HUMAN 99887118220 No Longer Active Moy Rodrigoglari HAND CANDY MOLDER Active CALCIUM 500/D 500-200 MG-UNIT ORAL TABLET one tablet daily CALCIUM CARBONATE-VITAMIN D 93619595984 Active Prosper Arenas MD Active HYDROCODONE-ACETAMINOPHEN 5-500 MG ORAL TABLET 1-2 FOUR TIMES A DAY, PRN 2010 HYDROCODONE-ACETAMINOPHEN 85896307135 No Longer Active Prosper Arenas MD Active ASPIRIN 81 MG ORAL TABLET 1 tablet by mouth daily ASPIRIN 43550431271 Active Prosper Arenas MD Active DOXYCYCLINE HYCLATE 100 MG ORAL CAPSULE take one capsule by mouth twice daily for ten days DOXYCYCLINE HYCLATE 23653599089 No Longer Active Mekhi Dukes MD Active DOXYCYCLINE HYCLATE 100 MG ORAL CAPSULE take one capsule by mouth twice daily for ten days DOXYCYCLINE HYCLATE 100 MG ORAL CAPSULE 8806947 DOXYCYCLINE HYCLATE Inactive HYDROCODONE-ACETAMINOPHEN 5-500 MG ORAL TABLET 1-2 FOUR TIMES A DAY, PRN 2010 HYDROCODONE-ACETAMINOPHEN 5-500 MG ORAL TABLET 255998 HYDROCODONE-ACETAMINOPHEN Inactive NOVOLIN R RELION 100 UNIT/ML INJECTION SOLUTION 30- 40 units each meal sliding scale NOVOLIN R RELION 100 UNIT/ML INJECTION SOLUTION INSULIN REGULAR HUMAN Inactive ZITHROMAX Z-EDDIE 250 MG ORAL TABLET 2 today, then 1 daily for 4 days ZITHROMAX Z-EDDIE 250 MG ORAL TABLET 553411 AZITHROMYCIN Inactive REVLIMID 25 MG ORAL CAPSULE one capsule daily for 21 days then off for 7 days REVLIMID 25 MG ORAL CAPSULE LENALIDOMIDE Inactive TRAZODONE HCL 50 MG ORAL TABLET three tablets at bed time TRAZODONE HCL 50 MG ORAL TABLET 003432 TRAZODONE HCL Inactive HALOPERIDOL 0.5 MG ORAL TABLET one tablet three times a day HALOPERIDOL 0.5 MG ORAL TABLET 856269 HALOPERIDOL Inactive BENZONATATE 200 MG ORAL CAPSULE 1 tab, 2-3 times a day BENZONATATE 200 MG ORAL CAPSULE 071282 BENZONATATE Inactive MECLIZINE HCL 25 MG ORAL TABLET 1 daily needed for dizziness 2015 MECLIZINE HCL 25 MG ORAL TABLET 481597 MECLIZINE HCL Inactive HYDROCHLOROTHIAZIDE 25 MG ORAL TABLET 1 tablet by mouth daily HYDROCHLOROTHIAZIDE 25 MG ORAL TABLET 421071 HYDROCHLOROTHIAZIDE Inactive PREDNISONE 20 MG ORAL TABLET Take 2 daily for 3 days and then 1 daily for 3 days PREDNISONE 20 MG ORAL TABLET 845380 PREDNISONE Inactive LISINOPRIL 5 MG ORAL TABLET 1 daily LISINOPRIL 5 MG ORAL TABLET 232124 LISINOPRIL Inactive METOPROLOL TARTRATE 25 MG ORAL TABLET 1/2 tablet twice a day METOPROLOL TARTRATE 25 MG ORAL TABLET 830713 METOPROLOL TARTRATE Inactive OMEPRAZOLE 20 MG ORAL CAPSULE DELAYED RELEASE 1 qd OMEPRAZOLE 20 MG ORAL CAPSULE DELAYED RELEASE 959541 OMEPRAZOLE Inactive SIMVASTATIN 80 MG ORAL TABLET 1/2 tablet daily SIMVASTATIN 80 MG ORAL TABLET 837375 SIMVASTATIN Inactive BENZONATATE 200 MG ORAL CAPSULE Take 1 tablet 3 times a day as needed for cough BENZONATATE 200 MG ORAL CAPSULE 710720 BENZONATATE Inactive Immunizations Vaccine Administration Date Value [...] Value Unit Range Description blood pressure, diastolic 60 mm[Hg] BP chavez [...] W/DIFF - Chemistry sodium, serum 137 mmol/L 634-816 4337/08/16 carbon dioxide, venous blood 26.3 mmol/L 21.0-32.0 [...] LABS - Chemistry cholesterol, serum 115 mg/dL 915-194 1208/08/18 triglyceride, serum, fasting 89 mg/dL 30-200 HDL cholesterol, serum 46 mg/dL 32-60 LDL cholesterol, serum 51 mg/dL 0-130 blood glucose 104 mg/dL 65-110 Lab Report: LIPID PANEL- REPOWER LAB - Chemistry cholesterol, serum 156 mg/dL 327-783 7159/02/20 HDL cholesterol, serum 52 mg/dL > OR=40 [...] mg/dL Encounters Code Encounter Date Provider Facility CPT-47971 Level 3 Est. Patient 17:11:55 OSITO Gracia MD [facility] CPT-27520 Level 4 Est. Patient 16:29:19 CDT Mekhi Dukes MD [facility] CPT-94691 Level 3 New Patient 17:05:24 CDT Ismael Gracia MD [facility] CPT-88997 Level 2 Est. Patient 15:43:17 CDT Mekhi Dukes MD [facility] CPT-50014 Level 3 Est. Patient 09:30:37 CDT Moy Garcia [facility] CPT-48971 Level 3 Est. Patient 10:00:14 CDT Mekhi Dukes MD [facility] CPT-04684 Level 3 Est. Patient 12:24:09 CDT Moy Garcia [facility] CPT-45181 Level 3 Est. Patient 14:34:57 CDT Prosper Arenas MD [facility] CPT-65675 Level 3 New Patient 15:44:53 FOUNDRY WORKER APPRENTICE Mekhi Dukes MD [facility] CPT-10969 Level 3 Est. Patient 14:53:34 FOUNDRY WORKER APPRENTICE Prosper Arenas MD [facility] CPT-60996 Level 4 Est. Patient 10:05:41 FOUNDRY WORKER APPRENTICE Moy Rodrigokymrex [facility] CPT-36660 Level 3 Est. [facility] 11:18:32 [facility] Level 4 Est. Patient 11:05:10 CDT Moy Bradshawari [facility] CPT-76658 Level 3 Est. Patient 11:08:27 FOUNDRY WORKER APPRENTICE Moy Garcia [facility] CPT-23976 Level 4 Est. Patient 10:43:59 CDT Prosper Arenas MD [facility] CPT-08301 Level 3 Est. Patient 10:51:19 CDT Moy Rodrigokymrex [facility] CPT-99181 Level 3 Est. Patient 10:20:31 CDT [facility]64[facility] Level 3 Est. Patient 17:08:45 CDT Moy Garcia [facility] CPT-12150 Level 2 Est. Patient 13:54:36 CDT Augustina Mata APRN [facility] CPT-17246 Level 3 Est. Patient 12:00:42 CDT Prosper Arenas MD [facility] CPT-42927 Level 3 Est. Patient 09:57:28 FOUNDRY WORKER APPRENTICE Moy Garcia [facility] CPT-47595 Level 3 Est. Patient 11:41:19 FOUNDRY WORKER APPRENTICE [facility] CPT-00540 Level 4 Est. Patient 17:07:35 FOUNDRY WORKER APPRENTICE [facility] Level 5 Est. Patient 14:33:32 [facility] Level 3 Est. Patient 12:25:35 CDT Prosper Arenas MD [facility] Procedures Code Procedure Name Date Entry Date Standard Description CPT-G0439 [facility] Annual Wellness Exam 08:39:41 FOUNDRY WORKER APPRENTICE CPT-000 Give Appropriate Flu Vaccine 10:13:55 FOUNDRY WORKER APPRENTICE CPT-000 Give Immunizations Due 10:13:55 FOUNDRY WORKER APPRENTICE CPT-55453 HGBA1C - LAB USE ONLY 09:42:47 FOUNDRY WORKER APPRENTICE CPT-69993 TPSA - LAB USE ONLY 09:42:46 FOUNDRY WORKER APPRENTICE CPT-42505 Venipuncture Draw Fee 09:42:46 FOUNDRY WORKER APPRENTICE CPT-99955 Port a cath flush 13:33:18 FOUNDRY WORKER APPRENTICE CPT-46799 First Vx - Ix admin for Medicare patients 10:42:57 FOUNDRY WORKER APPRENTICE CPT-02209 Fluzone Preservative Free Intramuscular Suspension 10:42 :57 FOUNDRY WORKER APPRENTICE CPT-G0438 Initial Annual Wellness Exam 10:13:55 FOUNDRY WORKER APPRENTICE CPT-000 Give Appropriate Flu Vaccine 10:44:04 CDT CPT-000 Give Pneumovax 10:44:03 CDT CPT-94629 Port a cath flush 17:04:43 CDT CPT-36531 Prevnar 13 11:19:17 CDT CPT-31227 Fluzone Quadrivalent preservative free (>=3yrs.) 11:19: 17 CDT CPT-27466 Immunization Each Additional Inj 11:19:17 CDT CPT-86443 Immunization Single Admin 11:19:17 CDT CPT-54731 Port a cath flush 13:28:22 CDT CPT-TCMM Transitional Care Mgmt-Moderate 13:40:15 CDT CPT-G0008 Administration of Influenza Virus Vaccine 13:59:20 CDT CPT-80607 Fluzone High-Dose Intramuscular Suspension 13:59:20 CDT CPT-42596 Venipuncture Draw Fee 09:56:19 CDT CPT-OV Office Visit 15:46:10 CDT
--- OUTSIDE RECORDS SUMMARY | 2017-08-25 21:42 | XMS REPORT | Clinical Summary ---
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 mellitus 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, type II [...] type II, uncontrolled 250.02 Active Maliheh Rodrigoglari MARINE REPORTER Diabetes mellitus 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, type [...] with hyperglycemia 250.00 Active 03/21 Maliheh Ziglari MARINE REPORTER Diabetes mellitus 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, type II or unspecified type, not stated as uncontrolled jail use of insulin treatment V58.67 Active Luxiheh Rodrigoglari MARINE REPORTER Long-term (current) use of insulin Diabetes mellitus, type II with hypoglycemia 250.80 Active 07/22 Maliheh Ziglari MARINE REPORTER Diabetes mellitus with other specified manifestations, type II or unspecified type, not stated as uncontrolled 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 Maliheh Ziglari MARINE REPORTER Diabetes mellitus with renal manifestations, type II or unspecified type, not stated as uncontrolled Wellness exam V70.0 Active Dee Palmer APRN Routine general medical examination at a health care facility Fitting and adjustment of vascular catheter V58.81 Active 02/06 Dee Palmer APRN Encounter for fitting and adjustment of vascular catheter Unawareness of hypoglycemia in diabetes mellitus, type II 250.80 Active Maliheh Ziglari MARINE REPORTER Diabetes mellitus with other specified manifestations, type II or unspecified type, not stated as uncontrolled Groin pain, right 789.09 Active Prosper Arenas MD Abdominal pain, other specified site; multiple sites Obesity 278.00 Active Prosper Arenas MD Obesity , unspecified Cough 786.2 Resolved Tami Miller RN Cough Headache 784.0 Resolved Tami Miller RN Headache Abdominal pain, right upper quadrant ICD-789.01 [...] MD Headache ICD-784.0 Inactive Mekhi Dukes MD Hypokalemia ICD-276.8 Inactive Mekhi Dukes MD Diabetes, Type 2 ICD-250.00 Inactive Mekhi Dukes MD Medication List Medication Instructions Start Date Stop Date Generic Name NDC Status Provider Patient Instruction GABAPENTIN 300 MG ORAL CAPS 1 tab BID GABAPENTIN 98324003858 Active Tami Miller RN Active PREDNISONE 20 MG TABS Take 2 daily for 3 days and then 1 daily for 3 days PREDNISONE 15337567396 No Longer Active Moy PARISH Active BENZONATATE 200 MG CAPS Take 1 tablet 3 times a day as needed for cough 07/29 BENZONATATE 55066238256 No Longer Active Prosper Arenas MD Active HYDROCHLOROTHIAZIDE 25 MG TABS 1 tablet by mouth daily HYDROCHLOROTHIAZIDE 33693153563 No Longer Active Prosper Arenas MD Active ACCU-CHEK JOANNA PLUS STRP check blood sugars 5x a day, before each meal and bedtime and 15 minutes after treating a low blood. sugar GLUCOSE BLOOD 72931396260 Active Maliheh Ziglari MARINE REPORTER Active NOVOLOG FLEXPEN 100 UNIT/ML SOPN Take 25 units with each meal, add 1u/50 for blood sugars above 150. INSULIN ASPART 03010900772 Active Maliheh Ziglari MARINE REPORTER Active LANTUS SOLOSTAR 100 UNIT/ML SOLN Take 40 units at 7-8pm daily INSULIN GLARGINE 34720923664 Active Maliheh Ziglari MARINE REPORTER Active MECLIZINE HCL 25 MG TABS 1 daily needed for dizziness MECLIZINE HCL 72260187906 No Longer Active Maliheh Ziglari MARINE REPORTER Active BENZONATATE 200 MG CAPS 1 tab, 2-3 times a day BENZONATATE 17617925123 No Longer Active Maliheh Ziglari MARINE REPORTER Active HALOPERIDOL 0.5 MG TABS one tablet three times a day HALOPERIDOL 45503519566 No Longer Active Maliheh Ziglari MARINE REPORTER Active TRAZODONE HCL 50 MG TAB three tablets at bed time TRAZODONE HCL 33335960146 No Longer Active Maliheh Ziglari MARINE REPORTER Active REVLIMID 25 MG CAPS one capsule daily for 21 days then off for 7 days 2014 LENALIDOMIDE 54513725330 No Longer Active Maliheh Ziglari MARINE REPORTER Active ZITHROMAX Z-EDDIE 250 MG TABS 2 today, then 1 daily for 4 days 2014 AZITHROMYCIN 80228785327 No Longer Active Augustina Yotalaum LANDCARE OFFICER Active NOVOLIN R RELION 100 UNIT/ML INJ SOLN 30- 40 units each meal sliding scale INSULIN REGULAR HUMAN 04142681046 No Longer Active Moy PARISH Active LISINOPRIL 5 MG TABS 1 daily LISINOPRIL 86812760219 Active Prosper Arenas MD Active CALCIUM 500/D 500-200 MG-UNIT TABS one tablet daily CALCIUM CARBONATE- VITAMIN D 74493656606 Active Prosper Arenas MD Active HYDROCODONE-ACETAMINOPHEN 5-500 MG TABS 1-2 FOUR TIMES A DAY, PRN HYDROCODONE-ACETAMINOPHEN 28859854511 No Longer Active Prosper Arenas MD Active SIMVASTATIN 80 MG TABS 1/2 tablet daily SIMVASTATIN 45026593982 Active Prosper Arenas MD Active METOPROLOL TARTRATE 25 MG TABS 1/2 tablet twice a day METOPROLOL TARTRATE 55946568567 Active Prosper Arenas MD Active ASPIRIN 81 MG TAB 1 tablet by mouth daily ASPIRIN 58001225208 Active Prosper Arenas MD Active OMEPRAZOLE 20 MG CPDR 1 qd OMEPRAZOLE 27748821380 Active DARCIE Miller Active DOXYCYCLINE HYCLATE 100 MG CAPS take one capsule by mouth twice daily for ten days DOXYCYCLINE HYCLATE 70860743731 No Longer Active Mekhi Dukes MD Active DOXYCYCLINE HYCLATE 100 MG CAPS take one capsule by mouth twice daily for ten days DOXYCYCLINE HYCLATE 100 MG CAPS 3048917 DOXYCYCLINE HYCLATE Inactive HYDROCODONE-ACETAMINOPHEN 5-500 MG TABS [...] days 2014 ZITHROMAX Z-EDDIE 250 MG TABS 7111488 AZITHROMYCIN Inactive REVLIMID 25 MG CAPS one capsule daily for 21 days then off for 7 days 2014 REVLIMID 25 MG CAPS LENALIDOMIDE Inactive TRAZODONE HCL 50 MG TAB three tablets at bed time TRAZODONE HCL 50 MG TAB 251850 TRAZODONE HCL Inactive HALOPERIDOL 0.5 MG TABS one tablet three times a day HALOPERIDOL 0.5 MG TABS 237147 HALOPERIDOL Inactive BENZONATATE 200 MG CAPS 1 tab, 2-3 times a day BENZONATATE 200 MG CAPS 989947 BENZONATATE Inactive MECLIZINE HCL 25 MG TABS 1 daily needed for dizziness MECLIZINE HCL 25 MG TABS 943362 MECLIZINE HCL Inactive HYDROCHLOROTHIAZIDE 25 MG TABS 1 tablet by mouth daily HYDROCHLOROTHIAZIDE 25 MG TABS 010984 HYDROCHLOROTHIAZIDE Inactive PREDNISONE 20 MG TABS Take 2 daily for 3 days and then 1 daily for 3 days PREDNISONE 20 MG TABS 938069 PREDNISONE Inactive BENZONATATE 200 MG CAPS Take 1 tablet 3 times a day as needed for cough 07/29 BENZONATATE 200 MG CAPS 446533 BENZONATATE Inactive Immunizations Vaccine Administration Date Value [...] Value Unit Range Description blood pressure, diastolic 75 mm[Hg] BP chavez [...] W/DIFF - Chemistry sodium, serum 137 mmol/L 216-059 7952/08/16 carbon dioxide, venous blood 26.3 mmol/L 21.0-32.0 [...] LABS - Chemistry cholesterol, serum 115 mg/dL 924-214 9663/08/18 triglyceride, serum, fasting 89 mg/dL 30-200 HDL cholesterol, serum 46 mg/dL 32-60 LDL cholesterol, serum 51 mg/dL 0-130 blood glucose 104 mg/dL 65-110 Lab Report: LIPID PANEL- REPOWER LAB - Chemistry cholesterol, serum 156 mg/dL 442-968 4745/02/20 HDL cholesterol, serum 52 mg/dL > OR=40 [...] mg/dL Encounters Code Encounter Date Provider Facility CPT-02480 Level 3 Est. Patient 10:00:14 CDT Mekhi Dukes MD [facility] CPT-61725 Level 3 Est. Patient 12:24:09 CDT [facility] Level 3 Est. Patient 14:34:57 CDT Prosper Arenas MD [facility] CPT-77282 Level 3 New Patient 15:44:53 PRODUCT DEVELOPMENT CONSULTANT Mekhi Dukes MD [facility] CPT-80236 Level 3 Est. Patient 14:53:34 PRODUCT DEVELOPMENT CONSULTANT Prosper Arenas MD [facility] CPT-38972 Level 4 Est. Patient 10:05:41 PRODUCT DEVELOPMENT CONSULTANT [facility] CPT-07752 Level 3 Est. Patient 11:18:32 CDT [facility] CPT-69728 Level 4 Est. Patient 11:05:10 CDT [facility] CPT-54256 Level 3 Est. Patient 11:08:27 PRODUCT DEVELOPMENT CONSULTANT [facility]-10[facility] Level 4 Est. Patient 10:43:59 CDT Prosper Arenas MD [facility] CPT-07068 Level 3 Est. Patient 10:51:19 CDT [facility] CPT-21428 Level 3 Est. Patient 10:20:31 CDT [facility] CPT-22038 Level 3 Est. Patient 17:08:45 CDT Moy Garcia [facility] CPT-71176 Level 2 Est. Patient 13:54:36 CDT Augustina Mata APRN [facility] CPT-35460 Level 3 Est. Patient 12:00:42 CDT Prosper Arenas MD [facility] CPT-75583 Level 3 Est. Patient 09:57:28 PRODUCT DEVELOPMENT CONSULTANT Moy Garcia [facility] CPT-67798 Level 3 Est. Patient 11:41:19 PRODUCT DEVELOPMENT CONSULTANT [facility] Level 4 Est. Patient 17:07:35 PRODUCT DEVELOPMENT CONSULTANT [facility] CPT-46629 Level 5 Est. [facility] 14:33:[facility]-06206 Level 3 Est. Patient 12:25:35 CDT Prosper Arenas MD [facility] Procedures Code Procedure Name Date Entry Date Standard Description CPT-000 Give Appropriate Flu Vaccine 10:13:55 PRODUCT DEVELOPMENT CONSULTANT CPT-000 Give Immunizations Due 10:13:55 PRODUCT DEVELOPMENT CONSULTANT CPT-04044 HGBA1C - LAB USE ONLY 09:42:47 PRODUCT DEVELOPMENT CONSULTANT CPT-74038 TPSA - LAB USE ONLY 09:42:46 PRODUCT DEVELOPMENT CONSULTANT CPT-02575 Venipuncture Draw Fee 09:42:46 PRODUCT DEVELOPMENT CONSULTANT CPT-16495 Port a cath flush 13:33:18 PRODUCT DEVELOPMENT CONSULTANT CPT-19165 First Vx - Ix admin for Medicare patients 10:42:57 PRODUCT DEVELOPMENT CONSULTANT CPT-56102 Fluzone Preservative Free Intramuscular Suspension 10:42 :57 PRODUCT DEVELOPMENT CONSULTANT CPT-G0438 Initial Annual Wellness Exam 10:13:55 PRODUCT DEVELOPMENT CONSULTANT CPT-000 Give Appropriate Flu Vaccine 10:44:04 CDT CPT-000 Give Pneumovax 10:44:03 CDT CPT-08689 Port a cath flush 17:04:43 CDT CPT-10659 Prevnar 13 11:19:17 CDT CPT-19307 Fluzone Quadrivalent preservative free (>=3yrs.) 11:19: 17 CDT CPT-69592 Immunization Each Additional Inj 11:19:17 CDT CPT-55712 Immunization Single Admin 11:19:17 CDT CPT-35016 Port a cath flush 13:28:22 CDT CPT-TCMM Transitional Care Mgmt-Moderate 13:40:15 CDT CPT-G0008 Administration of Influenza Virus Vaccine 13:59:20 CDT CPT-10821 Fluzone High-Dose Intramuscular Suspension 13:59:20 CDT CPT-13488 Venipuncture Draw Fee 09:56:19 CDT CPT-OV Office Visit 15:46:10 CDT
--- OUTSIDE RECORDS SUMMARY | 2017-08-25 21:43 | XMS REPORT | Clinical Summary ---
Author Author Admin, IWONA Organization [employer] Address Unknown Phone Unavailable Allergies, Adverse Reactions, Alerts Allergy Name Reaction Description Start Date Severity Status Provider ERYTHROMYCIN Stomach cramps Moderate Active Prosper Arenas MD CODEINE Critical Active Maliheh Ziglari DISPATCH LEAD DARVOCET Critical Active Maliheh Ziglari DISPATCH LEAD LEVAQUIN Critical Active Maliheh Ziglari DISPATCH LEAD Conditions or Problems Problem Name Problem Code Onset Date Status Entry Date Provider Comment Standard Description Annotate Diabetes, Type 2 250.00 Resolved Tami Miller ceo na mellitus 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, type II [...] type II, uncontrolled 250.02 Active Maliheh Rodrigoglari DISPATCH LEAD Diabetes mellitus 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, type II or unspecified type, uncontrolled Chest pain, atypical 786.59 Resolved Mekhi Dukes MD Other chest pain Bronchitis 490 Resolved Mekhi Dukes MD Bronchitis, not specified as acute or chronic Multiple myeloma 203.00 Active Gena Faux RMA Multiple myeloma without mention of having achieved remission Hypercalcemia 275.42 Active Gena Faux RMA Hypercalcemia Cough 786.2 Resolved Mkehi Dukes MD Cough Vertigo 780.4 Resolved Mekhi Dukes MD Dizziness and giddiness Preventive health care V70.0 Active Betsy Ronnie Routine general medical examination at a health care facility Encounter for fitting and adjustment of vascular catheter V58.81 Resolved Tami Miller RN Encounter for fitting and adjustment of vascular catheter Type 2 diabetes mellitus with hyperglycemia 250.00 Active 03/21 Maliheh Ziglari DISPATCH LEAD Diabetes mellitus 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, type II or unspecified type, not stated as uncontrolled [facility] use of insulin treatment V58.67 Active Luxiheh Rodrigoglari DISPATCH LEAD Long-term (current) use of insulin Diabetes mellitus, type II with hypoglycemia 250.80 Active 07/22 Maliheh Ziglari DISPATCH LEAD Diabetes mellitus with other specified manifestations, type II or unspecified type, not stated as uncontrolled 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 Maliheh Ziglari DISPATCH LEAD Diabetes mellitus with renal manifestations, type II or unspecified type, not stated as uncontrolled Wellness exam V70.0 Active Dee Palmer APRN Routine general medical examination at a health care facility Fitting and adjustment of vascular catheter V58.81 Active 02/06 Dee Palmer APRN Encounter for fitting and adjustment of vascular catheter Unawareness of hypoglycemia in diabetes mellitus, type II 250.80 Active Maliheh Ziglari DISPATCH LEAD Diabetes mellitus with other specified manifestations, type [...] desire disorder Hepatitis C, acute 070.51 Active Krarie Lawson APRN Acute hepatitis C without mention of hepatic coma Inguinal hernia 550.90 Active Karrie Lawson APRN Unilateral or unspecified inguinal hernia, without mention of obstruction or gangrene (not specified as recurrent) Gastritis Active Maliheh Ziglari DISPATCH LEAD Unspecified gastritis and gastroduodenitis, without mention of hemorrhage Abdominal pain, right upper quadrant ICD-789.01 Inactive [...] 1-2 every 4-6 hrs prn 02/25 HYDROCODONE-ACETAMINOPHEN 18561415623 Active Marina Messina APRN Active ASPIRIN 81 MG ORAL TABLET 1 tablet by mouth daily ASPIRIN 00215350573 No Longer Active Marina Messina APRN Active SIMVASTATIN 80 MG ORAL TABLET 1/2 tablet daily SIMVASTATIN 49429221594 No Longer Active Mekhi Dukes MD Active OMEPRAZOLE 20 MG ORAL CAPSULE DELAYED RELEASE 1 qd OMEPRAZOLE 43611539513 No Longer Active Mekhi Dukes MD Active METOPROLOL TARTRATE 25 MG ORAL TABLET 1/2 tablet twice a day METOPROLOL TARTRATE 97993936868 No Longer Active Mekhi Dukes MD Active LISINOPRIL 5 MG ORAL TABLET 1 daily LISINOPRIL 25555948388 No Longer Active Mekhi Dukes MD Active NOVOLOG FLEXPEN 100 UNIT/ML SUBCUTANEOUS SOLUTION PEN-INJECTOR Take 8 units with each meal, add 1u/50 for blood sugars above 150. INSULIN ASPART 72671817883 Active Malpapo DURANTP Active GABAPENTIN 300 MG ORAL CAPSULE 1 tab BID GABAPENTIN 63423174530 Active Tami Miller RN Active PREDNISONE 20 MG ORAL TABLET Take 2 daily for 3 days and then 1 daily for 3 days PREDNISONE 17270803743 No Longer Active Malcarissaeh Ziglari DISPATCH LEAD Active BENZONATATE 200 MG ORAL CAPSULE Take 1 tablet 3 times a day as needed for cough BENZONATATE 59144560092 No Longer Active Prosper Arenas MD Active HYDROCHLOROTHIAZIDE 25 MG ORAL TABLET 1 tablet by mouth daily HYDROCHLOROTHIAZIDE 71746575434 No Longer Active Prosper Arenas MD Active ACCU-CHEK JOANNA PLUS IN VITRO STRIP check blood sugars 5x a day, before each meal and bedtime and 15 minutes after treating a low blood. sugar GLUCOSE BLOOD 68878462988 Active Maliheh Ziglari DISPATCH LEAD Active LANTUS SOLOSTAR 100 UNIT/ML SUBCUTANEOUS SOLUTION PEN-INJECTOR Take 40 units at 7-8pm daily INSULIN GLARGINE 03779901214 Active Maliheh Ziglari DISPATCH LEAD Active MECLIZINE HCL 25 MG ORAL TABLET 1 daily needed for dizziness 2015 MECLIZINE HCL 56776426504 No Longer Active Maliheh Ziglari DISPATCH LEAD Active BENZONATATE 200 MG ORAL CAPSULE 1 tab, 2-3 times a day BENZONATATE 35081602434 No Longer Active Maliheh Ziglari DISPATCH LEAD Active HALOPERIDOL 0.5 MG ORAL TABLET one tablet three times a day HALOPERIDOL 45952548668 No Longer Active Maliheh Ziglari DISPATCH LEAD Active TRAZODONE HCL 50 MG ORAL TABLET three tablets at bed time TRAZODONE HCL 53525821216 No Longer Active Maliheh Ziglari DISPATCH LEAD Active REVLIMID 25 MG ORAL CAPSULE one capsule daily for 21 days then off for 7 days LENALIDOMIDE 11110463237 No Longer Active Maliheh Ziglari DISPATCH LEAD Active ZITHROMAX Z-EDDIE 250 MG ORAL TABLET 2 today, then 1 daily for 4 days AZITHROMYCIN 11258543714 No Longer Active Augustina Mata APRN Active NOVOLIN R RELION 100 UNIT/ML INJECTION SOLUTION 30- 40 units each meal sliding scale INSULIN REGULAR HUMAN 34784550580 No Longer Active Maliheh Ziglari DISPATCH LEAD Active CALCIUM 500/D 500-200 MG-UNIT ORAL TABLET one tablet daily CALCIUM CARBONATE-VITAMIN D 93985776514 Active Prosper Arenas MD Active HYDROCODONE-ACETAMINOPHEN 5-500 MG ORAL TABLET 1-2 FOUR TIMES A DAY, PRN 2010 HYDROCODONE-ACETAMINOPHEN 78058292687 No Longer Active Prosper Arenas MD Active DOXYCYCLINE HYCLATE 100 MG ORAL CAPSULE take one capsule by mouth twice daily for ten days DOXYCYCLINE HYCLATE 08463976379 No Longer Active Mekhi Dukes MD Active DOXYCYCLINE HYCLATE 100 MG ORAL CAPSULE take one capsule by mouth twice daily for ten days DOXYCYCLINE HYCLATE 100 MG ORAL CAPSULE 1219239 DOXYCYCLINE HYCLATE Inactive HYDROCODONE-ACETAMINOPHEN 5-500 MG ORAL TABLET 1-2 FOUR TIMES A DAY, PRN 2010 HYDROCODONE-ACETAMINOPHEN 5-500 MG ORAL TABLET 433866 HYDROCODONE-ACETAMINOPHEN Inactive NOVOLIN R RELION 100 UNIT/ML INJECTION SOLUTION 30- 40 units each meal sliding scale NOVOLIN R RELION 100 UNIT/ML INJECTION SOLUTION INSULIN REGULAR HUMAN Inactive ZITHROMAX Z-EDDIE 250 MG ORAL TABLET 2 today, then 1 daily for 4 days ZITHROMAX Z-EDDIE 250 MG ORAL TABLET 168335 AZITHROMYCIN Inactive REVLIMID 25 MG ORAL CAPSULE one capsule daily for 21 days then off for 7 days REVLIMID 25 MG ORAL CAPSULE LENALIDOMIDE Inactive TRAZODONE HCL 50 MG ORAL TABLET three tablets at bed time TRAZODONE HCL 50 MG ORAL TABLET 896810 TRAZODONE HCL Inactive HALOPERIDOL 0.5 MG ORAL TABLET one tablet three times a day HALOPERIDOL 0.5 MG ORAL TABLET 518991 HALOPERIDOL Inactive BENZONATATE 200 MG ORAL CAPSULE 1 tab, 2-3 times a day BENZONATATE 200 MG ORAL CAPSULE 009101 BENZONATATE Inactive MECLIZINE HCL 25 MG ORAL TABLET 1 daily needed for dizziness 2015 MECLIZINE HCL 25 MG ORAL TABLET 588424 MECLIZINE HCL Inactive HYDROCHLOROTHIAZIDE 25 MG ORAL TABLET 1 tablet by mouth daily HYDROCHLOROTHIAZIDE 25 MG ORAL TABLET 695240 HYDROCHLOROTHIAZIDE Inactive PREDNISONE 20 MG ORAL TABLET Take 2 daily for 3 days and then 1 daily for 3 days PREDNISONE 20 MG ORAL TABLET 543256 PREDNISONE Inactive LISINOPRIL 5 MG ORAL TABLET 1 daily LISINOPRIL 5 MG ORAL TABLET 410136 LISINOPRIL Inactive METOPROLOL TARTRATE 25 MG ORAL TABLET 1/2 tablet twice a day METOPROLOL TARTRATE 25 MG ORAL TABLET 845342 METOPROLOL TARTRATE Inactive OMEPRAZOLE 20 MG ORAL CAPSULE DELAYED RELEASE 1 qd OMEPRAZOLE 20 MG ORAL CAPSULE DELAYED RELEASE 373223 OMEPRAZOLE Inactive SIMVASTATIN 80 MG ORAL TABLET 1/2 tablet daily SIMVASTATIN 80 MG ORAL TABLET 454551 SIMVASTATIN Inactive ASPIRIN 81 MG ORAL TABLET 1 tablet by mouth daily ASPIRIN 81 MG ORAL TABLET 552887 ASPIRIN Inactive BENZONATATE 200 MG ORAL CAPSULE Take 1 tablet 3 times a day as needed for cough BENZONATATE 200 MG ORAL CAPSULE 732141 BENZONATATE Inactive Immunizations Vaccine Administration Date Value [...] W/DIFF - Chemistry sodium, serum 137 mmol/L 552-970 0599/08/16 carbon dioxide, venous blood 26.3 mmol/L 21.0-32.0 [...] LABS - Chemistry cholesterol, serum 115 mg/dL 185-207 5010/08/18 triglyceride, serum, fasting 89 mg/dL 30-200 HDL cholesterol, serum 46 mg/dL 32-60 LDL cholesterol, serum 51 mg/dL 0-130 blood glucose 104 mg/dL 65-110 Lab Report: LIPID PANEL- REPOWER LAB - Chemistry cholesterol, serum 156 mg/dL 913-680 5625/02/20 HDL cholesterol, serum 52 mg/dL > OR=40 [...] mg/dL Encounters Code Encounter Date Provider Facility CPT-30608 Level 3 Est. Patient 10:53:32 AUTO TECHNICIAN MECHANIC [facility] CPT-61048 Level 3 Est. Patient 17:11:55 AUTO TECHNICIAN MECHANIC Ismael Gracia MD [facility] CPT-56931 Level 4 Est. Patient 16:29:19 CDT Mekhi Dukes MD [facility] CPT-97727 Level 3 New Patient 17:05:24 CDT Ismael Gracia MD [facility] CPT-81675 Level 2 Est. Patient 15:43:17 CDT Mekhi Dukes MD [facility] CPT-56611 Level 3 Est. Patient 09:30:37 [facility]T [facility] CPT-25026 Level 3 Est. Patient 10:00:14 CDT Mekhi Dukes MD [facility] CPT-64611 Level 3 Est. Patient 12:24:09 CDT Moy Garcia [facility] CPT-67211 Level 3 Est. Patient 14:34:57 CDT Prosper Arenas MD [facility] CPT-23255 Level 3 New Patient 15:44:53 AUTO TECHNICIAN MECHANIC Mekhi Dukes MD [facility] CPT-02813 Level 3 Est. Patient 14:53:34 AUTO TECHNICIAN MECHANIC Prosper Arenas MD [facility] CPT-47341 Level 4 Est. Patient 10:05:41 AUTO TECHNICIAN MECHANIC Moy [facility] CPT-30107 Level 3 Est. [facility] 11:18:32 [facility] Level 4 Est. Patient 11:05:10 CDT Moy Garcia [facility] CPT-05380 Level 3 Est. Patient 11:08:27 AUTO TECHNICIAN MECHANIC Moy Garcia [facility] CPT-55957 Level 4 Est. Patient 10:43:59 CDT Prosper Arenas MD [facility] CPT-19417 Level 3 Est. Patient 10:51:19 CDT Moy Garcia [facility] CPT-46545 Level 3 Est. Patient 10:20:31 CDT Moy Garcia [facility] CPT-68995 Level 3 Est. Patient 17:08:45 CDT Moy Garcia [facility] CPT-54642 Level 2 Est. Patient 13:54:36 CDT Augustina Mata APRN [facility] CPT-20994 Level 3 Est. Patient 12:00:42 CDT Prosper Arenas MD [facility]-51496 Level 3 Est. Patient 09:57:28 AUTO TECHNICIAN MECHANIC [facility] CPT-41689 Level 3 Est. Patient 11:41:19 AUTO TECHNICIAN MECHANIC Luxshoaib [facility] CPT-25157 Level 4 Est. Patient 17:07:35 AUTO TECHNICIAN MECHANIC [facility] CPT-73356 Level 5 Est. Patient 14:33:32 CDT [facility] CPT-48266 Level 3 Est. Patient 12:25:35 CDT Prosper Arenas MD [facility] Procedures Code Procedure Name Date Entry Date Standard Description CPT-30586 Postop F/U Visit 17:20:20 AUTO TECHNICIAN MECHANIC CPT-G0439 Subsequent Annual Wellness Exam 08:39:41 AUTO TECHNICIAN MECHANIC CPT-000 Give Appropriate Flu Vaccine 10:13:55 AUTO TECHNICIAN MECHANIC CPT-000 Give Immunizations Due 10:13:55 AUTO TECHNICIAN MECHANIC CPT-28507 HGBA1C - LAB USE ONLY 09:42:47 AUTO TECHNICIAN MECHANIC CPT-87526 TPSA - LAB USE ONLY 09:42:46 AUTO TECHNICIAN MECHANIC CPT-43460 Venipuncture Draw Fee 09:42:46 AUTO TECHNICIAN MECHANIC CPT-65062 Port a cath flush 13:33:18 AUTO TECHNICIAN MECHANIC CPT-37299 First Vx - Ix admin for Medicare patients 10:42:57 AUTO TECHNICIAN MECHANIC CPT-39754 Fluzone Preservative Free Intramuscular Suspension 10:42 :57 AUTO TECHNICIAN MECHANIC CPT-G0438 Initial Annual Wellness Exam 10:13:55 AUTO TECHNICIAN MECHANIC CPT-000 Give Appropriate Flu Vaccine 10:44:04 CDT CPT-000 Give Pneumovax 10:44:03 CDT CPT-14315 Port a cath flush 17:04:43 CDT CPT-58858 Prevnar 13 11:19:17 CDT CPT-39788 Fluzone Quadrivalent preservative free (>=3yrs.) 11:19: 17 CDT CPT-35195 Immunization Each Additional Inj 11:19:17 CDT CPT-41616 Immunization Single Admin 11:19:17 CDT CPT-00047 Port a cath flush 13:28:22 CDT CPT-TCMM Transitional Care Mgmt-Moderate 13:40:15 CDT CPT-G0008 Administration of Influenza Virus Vaccine 13:59:20 CDT CPT-44660 Fluzone High-Dose Intramuscular Suspension 13:59:20 CDT CPT-71107 Venipuncture Draw Fee 09:56:19 CDT CPT-OV Office Visit 15:46:10 CDT
--- OUTSIDE RECORDS SUMMARY | 2017-08-25 21:44 | XMS REPORT | Clinical Summary ---
Author Author Admin, IWONA Organization [employer] Address Unknown Phone Unavailable Allergies, Adverse Reactions, Alerts Allergy Name Reaction Description Start Date Severity Status Provider ERYTHROMYCIN Stomach cramps Moderate Active Prosper Arenas MD CODEINE Critical Active Maliheh Ziglari FRONT END DRUPAL DEVELOPER DARVOCET Critical Active Maliheh Ziglari FRONT END DRUPAL DEVELOPER LEVAQUIN Critical Active Maliheh Ziglari FRONT END DRUPAL DEVELOPER Conditions or Problems Problem Name Problem Code [...] type II, uncontrolled 250.02 Active Maliheh Ziglari FRONT END DRUPAL DEVELOPER Diabetes mellitus 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, type [...] with hyperglycemia 250.00 Active 03/21 Maliheh Ziglari FRONT END DRUPAL DEVELOPER Diabetes mellitus without mention of complication, type II or unspecified type, not stated as uncontrolled group home use of insulin treatment V58.67 Active Maliheh Ziglari FRONT END DRUPAL DEVELOPER Long-term (current) use of insulin Diabetes mellitus, type II with hypoglycemia 250.80 Active 07/22 Maliheh Ziglari FRONT END DRUPAL DEVELOPER Diabetes mellitus with other specified manifestations, type II or unspecified type, not stated as uncontrolled 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 Maliheh Ziglari FRONT END DRUPAL DEVELOPER Diabetes mellitus with renal manifestations, type II or unspecified type, not stated as uncontrolled Wellness exam V70.0 Active Dee Palmre APRN Routine general medical examination at a health care facility Fitting and adjustment of vascular catheter V58.81 Active 02/06 Dee Palmer APRN Encounter for fitting and adjustment of vascular catheter Unawareness of hypoglycemia in diabetes mellitus, type II 250.80 Active Maliheh Ziglari FRONT END DRUPAL DEVELOPER Diabetes mellitus with other specified manifestations, type [...] then 1 daily for 3 days PREDNISONE 13801565098 No Longer Active Moy PARISH Active BENZONATATE 200 MG CAPS Take 1 tablet 3 times a day as needed for cough 07/29 BENZONATATE 73673620476 No Longer Active Prosper Arenas MD Active HYDROCHLOROTHIAZIDE 25 MG TABS 1 tablet by mouth daily HYDROCHLOROTHIAZIDE 05851328815 No Longer Active Prosper Arenas MD Active ACCU-CHEK JOANNA PLUS STRP check blood sugars 5x a day, before each meal and bedtime and 15 minutes after treating a low blood. sugar GLUCOSE BLOOD 48276827391 Active Malpapo Wallaceglari FRONT END DRUPAL DEVELOPER Active NOVOLOG FLEXPEN 100 UNIT/ML SOPN Take 25 units with each meal, add 1u/50 for blood sugars above 150. INSULIN ASPART 60063951411 Active Malpapo Wallaceglari FRONT END DRUPAL DEVELOPER Active LANTUS SOLOSTAR 100 UNIT/ML SOLN Take 40 units at 7-8pm daily INSULIN GLARGINE 64052022367 Active [facility] Ziglari FRONT END DRUPAL DEVELOPER Active MECLIZINE HCL 25 MG TABS 1 daily needed for dizziness MECLIZINE HCL 46542743803 No Longer Active Maleh Ziglari FRONT END DRUPAL DEVELOPER Active BENZONATATE 200 MG CAPS 1 tab, 2-3 times a day BENZONATATE 58949132680 No Longer Active [facility] Ziglari FRONT END DRUPAL DEVELOPER Active HALOPERIDOL 0.5 MG TABS one tablet three times a day HALOPERIDOL 37730454780 No Longer Active [facility] Ziglari FRONT END DRUPAL DEVELOPER Active TRAZODONE HCL 50 MG TAB three tablets at bed time TRAZODONE HCL 86493111838 No Longer Active [facility] Ziglari FRONT END DRUPAL DEVELOPER Active REVLIMID 25 MG CAPS one capsule daily for 21 days then off for 7 days 2014 LENALIDOMIDE 83246679509 No Longer Active [facility] Ziglari FRONT END DRUPAL DEVELOPER Active ZITHROMAX Z-EDDIE 250 MG TABS 2 today, then 1 daily for 4 days 2014 AZITHROMYCIN 37417788044 No Longer Active Augustina Mata BESSY Active NOVOLIN R RELION 100 UNIT/ML INJ SOLN 30- 40 units each meal sliding scale INSULIN REGULAR HUMAN 03009713288 No Longer Active [facility] Rodrigoglari FRONT END DRUPAL DEVELOPER Active LISINOPRIL 5 MG TABS 1 daily LISINOPRIL 91870126236 Active Prosper Arenas MD Active CALCIUM 500/D 500-200 MG-UNIT TABS one tablet daily CALCIUM CARBONATE- VITAMIN D 10510548618 Active Prosper Arenas MD Active HYDROCODONE-ACETAMINOPHEN 5-500 MG TABS 1-2 FOUR TIMES A DAY, PRN HYDROCODONE-ACETAMINOPHEN 07246615734 No Longer Active Prosper Arenas MD Active SIMVASTATIN 80 MG TABS 1/2 tablet daily SIMVASTATIN 39990634000 Active Prosper Arenas MD Active METOPROLOL TARTRATE 25 MG TABS 1/2 tablet twice a day METOPROLOL TARTRATE 15100243544 Active Prosper Arenas MD Active ASPIRIN 81 MG TAB 1 tablet by mouth daily ASPIRIN 69861920317 Active Prosper Arenas MD Active OMEPRAZOLE 20 MG CPDR 1 qd OMEPRAZOLE 84979080108 Active DARCIE Miller Active DOXYCYCLINE HYCLATE 100 MG CAPS take one capsule by mouth twice daily for ten days DOXYCYCLINE HYCLATE 71038598259 No Longer Active Mekhi Dukes MD Active DOXYCYCLINE HYCLATE 100 MG CAPS take one capsule by mouth twice daily for ten days DOXYCYCLINE HYCLATE 100 MG CAPS 0370935 DOXYCYCLINE HYCLATE Inactive HYDROCODONE-ACETAMINOPHEN 5-500 MG TABS [...] days 2014 ZITHROMAX Z-EDDIE 250 MG TABS 9287420 AZITHROMYCIN Inactive REVLIMID 25 MG CAPS one capsule daily for 21 days then off for 7 days 2014 REVLIMID 25 MG CAPS LENALIDOMIDE Inactive TRAZODONE HCL 50 MG TAB three tablets at bed time TRAZODONE HCL 50 MG TAB 455566 TRAZODONE HCL Inactive HALOPERIDOL 0.5 MG TABS one tablet three times a day HALOPERIDOL 0.5 MG TABS 605814 HALOPERIDOL Inactive BENZONATATE 200 MG CAPS 1 tab, 2-3 times a day BENZONATATE 200 MG CAPS 435412 BENZONATATE Inactive MECLIZINE HCL 25 MG TABS 1 daily needed for dizziness MECLIZINE HCL 25 MG TABS 988386 MECLIZINE HCL Inactive HYDROCHLOROTHIAZIDE 25 MG TABS 1 tablet by mouth daily HYDROCHLOROTHIAZIDE 25 MG TABS 313677 HYDROCHLOROTHIAZIDE Inactive PREDNISONE 20 MG TABS Take 2 daily for 3 days and then 1 daily for 3 days PREDNISONE 20 MG TABS 121000 PREDNISONE Inactive BENZONATATE 200 MG CAPS Take 1 tablet 3 times a day as needed for cough 07/29 BENZONATATE 200 MG CAPS 077474 BENZONATATE Inactive Immunizations Vaccine Administration Date Value [...] microalbumin/total urine volume 5 mg/L Lab Report: HGBA1C - Chemistry hemoglobin A1C, blood, as % of total hemoglobin 7.7 % 4.3-6.0 Lab Report: LIPID PANEL- REPOWER LAB - Chemistry cholesterol, serum 156 mg/dL 068-552 0133/02/20 HDL cholesterol, serum 52 mg/dL > OR=40 [...] mg/dL Encounters Code Encounter Date Provider Facility CPT-43572 Level 3 Est. Patient 12:24:09 CDT [facility] CPT-99617 Level 3 Est. Patient 14:34:57 CDT Prosper Arenas MD [facility] CPT-29660 Level 3 New Patient 15:44:53 CRUCIBLE PACKER Mekhi Dukes MD [facility] CPT-67939 Level 3 Est. Patient 14:53:34 CRUCIBLE PACKER Prosper Arenas MD [facility] CPT-14172 Level 4 Est. Patient 10:05:41 CRUCIBLE PACKER [facility] Level 3 Est. Patient 11:18:32 CDT [facility] CPT-23303 Level 4 Est. Patient 11:05:10 CDT [facility] CPT-67905 Level 3 Est. Patient 11:08:27 CRUCIBLE PACKER [facility] Level 4 Est. Patient 10:43:59 CDT Prosper Arenas MD [facility] CPT-46402 Level 3 Est. Patient 10:51:19 [facility] CPT-81835 Level 3 Est. Patient 10:20:31 CDT Luxshoaib [facility] CPT-71954 Level 3 Est. Patient 17:08:45 [facility] CPT-23749 Level 2 Est. Patient 13:54:36 CDT Augustina Mata APRN [facility] CPT-52138 Level 3 Est. Patient 12:00:42 CDT Prosper Arenas MD [facility] CPT-60289 Level 3 Est. Patient 09:57:28 CRUCIBLE PACKER [facility] CPT-32513 Level 3 Est. Patient 11:41:19 CRUCIBLE PACKER [facility] CPT-91350 Level 4 Est. Patient 17:07:35 CRUCIBLE PACKER [facility] CPT-10071 Level 5 Est. Patient 14:33:32 CDT [facility] CPT-59124 Level 3 Est. Patient 12:25:35 CDT Prosper Arenas MD [facility] Procedures Code Procedure Name Date Entry Date Standard Description CPT-000 Give Appropriate Flu Vaccine 10:13:55 CRUCIBLE PACKER CPT-000 Give Immunizations Due 10:13:55 CRUCIBLE PACKER CPT-48299 HGBA1C - LAB USE ONLY 09:42:47 CRUCIBLE PACKER CPT-98448 TPSA - LAB USE ONLY 09:42:46 CRUCIBLE PACKER CPT-33111 Venipuncture Draw Fee 09:42:46 CRUCIBLE PACKER CPT-06740 Port a cath flush 13:33:18 CRUCIBLE PACKER CPT-41317 First Vx - Ix admin for Medicare patients 10:42:57 CRUCIBLE PACKER CPT-33358 Fluzone Preservative Free Intramuscular Suspension 10:42 :57 CRUCIBLE PACKER CPT-G0438 Initial Annual Wellness Exam 10:13:55 CRUCIBLE PACKER CPT-000 Give Appropriate Flu Vaccine 10:44:04 CDT CPT-000 Give Pneumovax 10:44:03 CDT CPT-71467 Port a cath flush 17:04:43 CDT CPT-81957 Prevnar 13 11:19:17 CDT CPT-32860 Fluzone Quadrivalent preservative free (>=3yrs.) 11:19: 17 CDT CPT-75610 Immunization Each Additional Inj 11:19:17 CDT CPT-62160 Immunization Single Admin 11:19:17 CDT CPT-40107 Port a cath flush 13:28:22 CDT CPT-TCMM Transitional Care Mgmt-Moderate 13:40:15 CDT CPT-G0008 Administration of Influenza Virus Vaccine 13:59:20 CDT CPT-87567 Fluzone High-Dose Intramuscular Suspension 13:59:20 CDT CPT-66096 Venipuncture Draw Fee 09:56:19 CDT CPT-OV Office Visit 15:46:10 CDT
--- OUTSIDE RECORDS SUMMARY | 2017-08-25 21:45 | XMS REPORT ---
Author Author [facility] Medical Staff Organization [facility] Address [address] [address] Phone [phone] Summary purpose TRANSITION OF CARE AUTO GENERATION [...] diagnostic tests and/or laboratory data RESULTS Chemistry [id number]:23:00 Result Normal Range Units Sodium 134 134-145 [...] Estimated GFR L 44 >=60 mL/min/1.7 Hematology :23:00 Result Normal Range Units WBC 7.6 4.8-10.8 103/uL RBC 4.9 4.7-6.1 106/uL HGB 15.6 13.0-18.0 g/dl HCT 44.9 41.9-52.0 % MCV 91.6 80-94 FL MCH H 31.8 27-31 pg MCHC 34.7 33-37 g/dl RDW 12.5 11.5-15.5 % PLT 209 130-400 103/uL MPV 10.3 7.3-10.4 FL Neutro % 61.8 40-70 % Lymph % 24.3 20-40 % Flagler % H 10.6 0-10.0 % Eos % 1.5 0-7.0 % Baso % 1.1 0-2 % Neutro # 4.7 1.5-7.5 103/uL Lymph # 1.8 0.9-4.0 103/uL Flagler # 0.8 0-0.8 103/uL Eos # 0.1 0-0.6 103/uL Baso # 0.1 0-0.1 103/uL Radiology Results :23:00 Result Normal Range Units MPV 10.3 7.3-10.4 FL History of procedures No procedures [...]
--- OUTSIDE RECORDS SUMMARY | 2017-08-25 21:45 | XMS REPORT | Clinical Summary ---
Author Author Admin, IWONA Organization [employer] Address Unknown Phone Unavailable Allergies, Adverse Reactions, Alerts Allergy Name Reaction Description Start Date Severity Status Provider ERYTHROMYCIN Stomach cramps Moderate Active Prosper Arenas MD CODEINE Critical Active Maliheh Ziglari RESEARCH AGRICULTURAL ENGINEER DARVOCET Critical Active Maliheh Ziglari RESEARCH AGRICULTURAL ENGINEER LEVAQUIN Critical Active Maliheh Ziglari RESEARCH AGRICULTURAL ENGINEER Conditions or Problems Problem Name Problem Code Onset Date Status Entry Date Provider Comment Standard Description Annotate Diabetes, Type 2 250.00 Resolved Tami Miller animal daycare provider mellitus without mention of complication, type II [...] type II, uncontrolled 250.02 Active Maliheh Rodrigoglari RESEARCH AGRICULTURAL ENGINEER Diabetes mellitus without mention of complication, [...] with hyperglycemia 250.00 Active 03/21 Maliheh Ziglari RESEARCH AGRICULTURAL ENGINEER Diabetes mellitus without mention of complication, type II or unspecified type, not stated as uncontrolled [facility] use of insulin treatment V58.67 Active Luxiheh Rodrigoglari RESEARCH AGRICULTURAL ENGINEER Long-term (current) use of insulin Diabetes mellitus, type II with hypoglycemia 250.80 Active 07/22 Maliheh Ziglari RESEARCH AGRICULTURAL ENGINEER Diabetes mellitus with other specified manifestations, type II or unspecified type, not stated as uncontrolled 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 INSULIN ASPART 05591836374 Active Moy DURANTP Active GABAPENTIN 300 MG ORAL CAPS 1 tab BID GABAPENTIN 35039516838 Active Tami Miller RN Active PREDNISONE 20 MG TABS Take 2 daily for 3 days and then 1 daily for 3 days PREDNISONE 98696083491 No Longer Active Maliheh Ziglari RESEARCH AGRICULTURAL ENGINEER Active BENZONATATE 200 MG CAPS Take 1 tablet 3 times a day as needed for cough 07/29 BENZONATATE 56512757379 No Longer Active Prosper Arenas MD Active HYDROCHLOROTHIAZIDE 25 MG TABS 1 tablet by mouth daily HYDROCHLOROTHIAZIDE 75208079164 No Longer Active Prosper Arenas MD Active ACCU-CHEK JOANNA PLUS STRP check blood sugars 5x a day, before each meal and bedtime and 15 minutes after treating a low blood. sugar GLUCOSE BLOOD 55225924167 Active Maliheh Ziglari RESEARCH AGRICULTURAL ENGINEER Active LANTUS SOLOSTAR 100 UNIT/ML SOLN Take 40 units at 7-8pm daily INSULIN GLARGINE 56928403821 Active Maliheh Ziglari RESEARCH AGRICULTURAL ENGINEER Active MECLIZINE HCL 25 MG TABS 1 daily needed for dizziness MECLIZINE HCL 59522654223 No Longer Active Maliheh Ziglari RESEARCH AGRICULTURAL ENGINEER Active BENZONATATE 200 MG CAPS 1 tab, 2-3 times a day BENZONATATE 54770075622 No Longer Active Maliheh Ziglari RESEARCH AGRICULTURAL ENGINEER Active HALOPERIDOL 0.5 MG TABS one tablet three times a day HALOPERIDOL 24037783465 No Longer Active Maliheh Ziglari RESEARCH AGRICULTURAL ENGINEER Active TRAZODONE HCL 50 MG TAB three tablets at bed time TRAZODONE HCL 05112687970 No Longer Active Maliheh Ziglari RESEARCH AGRICULTURAL ENGINEER Active REVLIMID 25 MG CAPS one capsule daily for 21 days then off for 7 days 2014 LENALIDOMIDE 65367916084 No Longer Active Maliheh Ziglari RESEARCH AGRICULTURAL ENGINEER Active ZITHROMAX Z-EDDIE 250 MG TABS 2 today, then 1 daily for 4 days 2014 AZITHROMYCIN 30635752535 No Longer Active Augustina Mata LIQUID FLOOR AND WALL APPLIER Active NOVOLIN R RELION 100 UNIT/ML INJ SOLN 30- 40 units each meal sliding scale INSULIN REGULAR HUMAN 13387956736 No Longer Active Moy PARISH Active LISINOPRIL 5 MG TABS 1 daily LISINOPRIL 02365260021 Active Prosper Arenas MD Active CALCIUM 500/D 500-200 MG-UNIT TABS one tablet daily CALCIUM CARBONATE- VITAMIN D 13884758528 Active Prosper Arenas MD Active HYDROCODONE-ACETAMINOPHEN 5-500 MG TABS 1-2 FOUR TIMES A DAY, PRN HYDROCODONE-ACETAMINOPHEN 43450456604 No Longer Active Prosper Arenas MD Active SIMVASTATIN 80 MG TABS 1/2 tablet daily SIMVASTATIN 89569043991 Active Prosper Arenas MD Active METOPROLOL TARTRATE 25 MG TABS 1/2 tablet twice a day METOPROLOL TARTRATE 45280562367 Active Prosper Arenas MD Active ASPIRIN 81 MG TAB 1 tablet by mouth daily ASPIRIN 75940581282 Active Prosper Arenas MD Active OMEPRAZOLE 20 MG CPDR 1 qd OMEPRAZOLE 05277461271 Active DARCIE Miller Active DOXYCYCLINE HYCLATE 100 MG CAPS take one capsule by mouth twice daily for ten days DOXYCYCLINE HYCLATE 70248011338 No Longer Active Mekhi Dukes MD Active DOXYCYCLINE HYCLATE 100 MG CAPS take one capsule by mouth twice daily for ten days DOXYCYCLINE HYCLATE 100 MG CAPS 5507127 DOXYCYCLINE HYCLATE Inactive HYDROCODONE-ACETAMINOPHEN 5-500 MG TABS [...] days 2014 ZITHROMAX Z-EDDIE 250 MG TABS 8985143 AZITHROMYCIN Inactive REVLIMID 25 MG CAPS one capsule daily for 21 days then off for 7 days 2014 REVLIMID 25 MG CAPS LENALIDOMIDE Inactive TRAZODONE HCL 50 MG TAB three tablets at bed time TRAZODONE HCL 50 MG TAB 476926 TRAZODONE HCL Inactive HALOPERIDOL 0.5 MG TABS one tablet three times a day HALOPERIDOL 0.5 MG TABS 458511 HALOPERIDOL Inactive BENZONATATE 200 MG CAPS 1 tab, 2-3 times a day BENZONATATE 200 MG CAPS 289881 BENZONATATE Inactive MECLIZINE HCL 25 MG TABS 1 daily needed for dizziness MECLIZINE HCL 25 MG TABS 820389 MECLIZINE HCL Inactive HYDROCHLOROTHIAZIDE 25 MG TABS 1 tablet by mouth daily HYDROCHLOROTHIAZIDE 25 MG TABS 930324 HYDROCHLOROTHIAZIDE Inactive PREDNISONE 20 MG TABS Take 2 daily for 3 days and then 1 daily for 3 days PREDNISONE 20 MG TABS 433926 PREDNISONE Inactive BENZONATATE 200 MG CAPS Take 1 tablet 3 times a day as needed for cough 07/29 BENZONATATE 200 MG CAPS 267118 BENZONATATE Inactive Immunizations Vaccine Administration Date Value [...] W/DIFF - Chemistry sodium, serum 137 mmol/L 476-854 0029/08/16 carbon dioxide, venous blood 26.3 mmol/L 21.0-32.0 [...] 4.3-6.0 Lab Report: Lipid Panel, Glucose- 6M [facility] - Chemistry cholesterol, serum 115 mg/dL 258-703 9833/08/18 triglyceride, serum, fasting 89 mg/dL 30-200 HDL cholesterol, serum 46 mg/dL 32-60 LDL cholesterol, serum 51 mg/dL 0-130 blood glucose 104 mg/dL 65-110 Lab Report: LIPID PANEL- REPOWER LAB - Chemistry cholesterol, serum 156 mg/dL 150-432 9655/02/20 HDL cholesterol, serum 52 mg/dL > OR=40 [...] mg/dL Encounters Code Encounter Date Provider Facility CPT-30397 Level 3 Est. Patient 09:30:37 [facility]T [facility] Level 3 Est. Patient 10:00:14 CDT Mekhi Dukes MD [facility] CPT-55564 Level 3 Est. Patient 12:24:09 CDT [facility]25723 Level 3 Est. Patient 14:34:57 CDT Prosper Arenas MD [facility] CPT-66346 Level 3 New Patient 15:44:53 GAUGE MAKER Mekhi Dukes MD [facility] CPT-88490 Level 3 Est. Patient 14:53:34 GAUGE MAKER Prosper Arenas MD [facility] CPT-29072 Level 4 Est. Patient 10:05:41 GAUGE MAKER [facility] Level 3 Est. Patient 11:18:32 CDT [facility] C[facility]-50717 Level 4 Est. Patient 11:05:10 CDT Moy Garcia [facility] CPT-09946 Level 3 Est. Patient 11:08:27 GAUGE MAKER Moy Garcia [facility] CPT-81727 Level 4 Est. Patient 10:43:59 CDT Prosper Arenas MD [facility] CPT-08960 Level 3 Est. Patient 10:51:19 CDT Moy Garcia [facility] CPT-24140 Level 3 Est. Patient 10:20:31 [facility] CPT-67884 Level 3 Est. Patient 17:08:45 CDT [facility]PT-[facility] Level 2 Est. Patient 13:54:36 CDT Augustina Mata APRN [facility] CPT-32877 Level 3 Est. Patient 12:00:42 CDT Prosper Arenas MD [facility] CPT-44561 Level 3 Est. Patient 09:57:28 GAUGE MAKER [facility] Level 3 Est. Patient 11:41:19 [facility]AU[facility] MAKER [facility] CPT-94424 Level 4 Est. Patient 17:07:35 GAUGE MAKER Moy Garcia [facility] CPT-90185 Level 5 Est. Patient 14:33:32 [facility] CPT-21087 Level 3 Est. Patient 12:25:35 CDT Prosper Arenas MD [facility] Procedures Code Procedure Name Date Entry Date Standard Description CPT-000 Give Appropriate Flu Vaccine 10:13:55 GAUGE MAKER CPT-000 Give Immunizations Due 10:13:55 GAUGE MAKER CPT-29062 HGBA1C - LAB USE ONLY 09:42:47 GAUGE MAKER CPT-28091 TPSA - LAB USE ONLY 09:42:46 GAUGE MAKER CPT-58029 Venipuncture Draw Fee 09:42:46 GAUGE MAKER CPT-36087 Port a cath flush 13:33:18 GAUGE MAKER CPT-26013 First Vx - Ix admin for Medicare patients 10:42:57 GAUGE MAKER CPT-39914 Fluzone Preservative Free Intramuscular Suspension 10:42 :57 GAUGE MAKER CPT-G0438 Initial Annual Wellness Exam 10:13:55 GAUGE MAKER CPT-000 Give Appropriate Flu Vaccine 10:44:04 CDT CPT-000 Give Pneumovax 10:44:03 CDT CPT-35389 Port a cath flush 17:04:43 CDT CPT-64938 Prevnar 13 11:19:17 CDT CPT-17983 Fluzone Quadrivalent preservative free (>=3yrs.) 11:19: 17 CDT CPT-49157 Immunization Each Additional Inj 11:19:17 CDT CPT-72245 Immunization Single Admin 11:19:17 CDT CPT-84099 Port a cath flush 13:28:22 CDT CPT-TCMM Transitional Care Mgmt-Moderate 13:40:15 CDT CPT-G0008 Administration of Influenza Virus Vaccine 13:59:20 CDT CPT-07936 Fluzone High-Dose Intramuscular Suspension 13:59:20 CDT CPT-46494 Venipuncture Draw Fee 09:56:19 CDT CPT-OV Office Visit 15:46:10 CDT
--- OUTSIDE RECORDS SUMMARY | 2017-08-25 21:46 | XMS REPORT | Clinical Summary ---
Author Author Admin, IWONA Organization [employer] Address Unknown Phone Unavailable Allergies, Adverse Reactions, Alerts Allergy Name Reaction Description Start Date Severity Status Provider ERYTHROMYCIN Stomach cramps Moderate Active Prosper Arenas MD CODEINE Critical Active Maliheh Ziglari KIOSK SALES REPRESENTATIVE DARVOCET Critical Active Maliheh Ziglari KIOSK SALES REPRESENTATIVE LEVAQUIN Critical Active Maliheh Ziglari KIOSK SALES REPRESENTATIVE Conditions or Problems Problem Name Problem Code Onset Date Status Entry Date Provider Comment Standard Description Annotate Diabetes, Type 2 250.00 Resolved 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 complication, type II [...] type II, uncontrolled 250.02 Active Maliheh Rodrigoglari KIOSK SALES REPRESENTATIVE Diabetes mellitus without mention of complication, type [...] with hyperglycemia 250.00 Active 03/21 Maliheh Ziglari KIOSK SALES REPRESENTATIVE Diabetes mellitus without mention of complication, type II or unspecified type, not stated as uncontrolled nursing home use of insulin treatment V58.67 Active Luxiheh Rodrigoglari KIOSK SALES REPRESENTATIVE Long-term (current) use of insulin Diabetes mellitus, type II with hypoglycemia 250.80 Active 07/22 Maliheh Ziglari KIOSK SALES REPRESENTATIVE Diabetes mellitus with other specified manifestations, type II or unspecified type, not stated as uncontrolled 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 INSULIN ASPART 73078614955 Active Moy DURANTP Active GABAPENTIN 300 MG ORAL CAPS 1 tab BID GABAPENTIN 04003634911 Active Tami Miller RN Active PREDNISONE 20 MG TABS Take 2 daily for 3 days and then 1 daily for 3 days PREDNISONE 39166079455 No Longer Active Maliheh Ziglari KIOSK SALES REPRESENTATIVE Active BENZONATATE 200 MG CAPS Take 1 tablet 3 times a day as needed for cough 07/29 BENZONATATE 35026620637 No Longer Active Prosper Arenas MD Active HYDROCHLOROTHIAZIDE 25 MG TABS 1 tablet by mouth daily HYDROCHLOROTHIAZIDE 15817997580 No Longer Active Prosper Arenas MD Active ACCU-CHEK JOANNA PLUS STRP check blood sugars 5x a day, before each meal and bedtime and 15 minutes after treating a low blood. sugar GLUCOSE BLOOD 63799866152 Active Maliheh Ziglari KIOSK SALES REPRESENTATIVE Active LANTUS SOLOSTAR 100 UNIT/ML SOLN Take 40 units at 7-8pm daily INSULIN GLARGINE 85701087874 Active Maliheh Ziglari KIOSK SALES REPRESENTATIVE Active MECLIZINE HCL 25 MG TABS 1 daily needed for dizziness MECLIZINE HCL 63830932270 No Longer Active Maliheh Ziglari KIOSK SALES REPRESENTATIVE Active BENZONATATE 200 MG CAPS 1 tab, 2-3 times a day BENZONATATE 44425127013 No Longer Active Maliheh Ziglari KIOSK SALES REPRESENTATIVE Active HALOPERIDOL 0.5 MG TABS one tablet three times a day HALOPERIDOL 56703233104 No Longer Active Maliheh Ziglari KIOSK SALES REPRESENTATIVE Active TRAZODONE HCL 50 MG TAB three tablets at bed time TRAZODONE HCL 01162016997 No Longer Active Maliheh Ziglari KIOSK SALES REPRESENTATIVE Active REVLIMID 25 MG CAPS one capsule daily for 21 days then off for 7 days 2014 LENALIDOMIDE 14005389502 No Longer Active Maliheh Ziglari KIOSK SALES REPRESENTATIVE Active ZITHROMAX Z-EDDIE 250 MG TABS 2 today, then 1 daily for 4 days 2014 AZITHROMYCIN 34275434692 No Longer Active Augustina Mata SHORER Active NOVOLIN R RELION 100 UNIT/ML INJ SOLN 30- 40 units each meal sliding scale INSULIN REGULAR HUMAN 14588844387 No Longer Active Moy PARISH Active LISINOPRIL 5 MG TABS 1 daily LISINOPRIL 91057759900 Active Prosper Arenas MD Active CALCIUM 500/D 500-200 MG-UNIT TABS one tablet daily CALCIUM CARBONATE- VITAMIN D 03500079354 Active Prosper Arenas MD Active HYDROCODONE-ACETAMINOPHEN 5-500 MG TABS 1-2 FOUR TIMES A DAY, PRN HYDROCODONE-ACETAMINOPHEN 90281113461 No Longer Active Prosper Arenas MD Active SIMVASTATIN 80 MG TABS 1/2 tablet daily SIMVASTATIN 36123887019 Active Prosper Arenas MD Active METOPROLOL TARTRATE 25 MG TABS 1/2 tablet twice a day METOPROLOL TARTRATE 21078303190 Active Prosper Arenas MD Active ASPIRIN 81 MG TAB 1 tablet by mouth daily ASPIRIN 87958437997 Active Prosper Arenas MD Active OMEPRAZOLE 20 MG CPDR 1 qd OMEPRAZOLE 41248545349 Active DARCIE Miller Active DOXYCYCLINE HYCLATE 100 MG CAPS take one capsule by mouth twice daily for ten days DOXYCYCLINE HYCLATE 54869800797 No Longer Active Mekhi Dukes MD Active DOXYCYCLINE HYCLATE 100 MG CAPS take one capsule by mouth twice daily for ten days DOXYCYCLINE HYCLATE 100 MG CAPS 6397741 DOXYCYCLINE HYCLATE Inactive HYDROCODONE-ACETAMINOPHEN 5-500 MG TABS [...] days 2014 ZITHROMAX Z-EDDIE 250 MG TABS 7486219 AZITHROMYCIN Inactive REVLIMID 25 MG CAPS one capsule daily for 21 days then off for 7 days 2014 REVLIMID 25 MG CAPS LENALIDOMIDE Inactive TRAZODONE HCL 50 MG TAB three tablets at bed time TRAZODONE HCL 50 MG TAB 826073 TRAZODONE HCL Inactive HALOPERIDOL 0.5 MG TABS one tablet three times a day HALOPERIDOL 0.5 MG TABS 747722 HALOPERIDOL Inactive BENZONATATE 200 MG CAPS 1 tab, 2-3 times a day BENZONATATE 200 MG CAPS 665970 BENZONATATE Inactive MECLIZINE HCL 25 MG TABS 1 daily needed for dizziness MECLIZINE HCL 25 MG TABS 988491 MECLIZINE HCL Inactive HYDROCHLOROTHIAZIDE 25 MG TABS 1 tablet by mouth daily HYDROCHLOROTHIAZIDE 25 MG TABS 817418 HYDROCHLOROTHIAZIDE Inactive PREDNISONE 20 MG TABS Take 2 daily for 3 days and then 1 daily for 3 days PREDNISONE 20 MG TABS 784216 PREDNISONE Inactive BENZONATATE 200 MG CAPS Take 1 tablet 3 times a day as needed for cough 07/29 BENZONATATE 200 MG CAPS 214633 BENZONATATE Inactive Immunizations Vaccine Administration Date Value [...] W/DIFF - Chemistry sodium, serum 137 mmol/L 875-176 5515/08/16 carbon dioxide, venous blood 26.3 mmol/L 21.0-32.0 [...] 4.3-6.0 Lab Report: Lipid Panel, Glucose- 6M [facility] - Chemistry cholesterol, serum 115 mg/dL 788-505 0727/08/18 triglyceride, serum, fasting 89 mg/dL 30-200 HDL cholesterol, serum 46 mg/dL 32-60 LDL cholesterol, serum 51 mg/dL 0-130 blood glucose 104 mg/dL 65-110 Lab Report: LIPID PANEL- REPOWER LAB - Chemistry cholesterol, serum 156 mg/dL 214-187 3478/02/20 HDL cholesterol, serum 52 mg/dL > OR=40 [...] mg/dL Encounters Code Encounter Date Provider Facility CPT-13802 Level 3 Est. Patient 09:30:[address] [facility] CPT-27645 Level 3 Est. Patient 10:00:14 CDT Mekhi Dukes MD [facility] CPT-43070 Level 3 Est. Patient 12:24:[address] [facility] CPT-99505 Level 3 Est. Patient 14:34:57 CDT Prosper Arenas MD [facility] CPT-58699 Level 3 New Patient 15:44:53 TRUER [employer]INION [employer] WHEEL Mekhi Dukes MD [facility] CPT-97304 Level 3 Est. Patient 14:53:34 [employer] Prosper Arenas MD [facility] CPT-16968 Level 4 Est. Patient 10:05:41 [employer]INION [employer]EL [facility] CPT-14[facility] Level 3 Est. Patient 11:18:[address] [facility] CPT-67856 Level 4 Est. Patient 11:05:10 CDT Moy Garcia [facility] CPT-36553 Level 3 Est. Patient 11:08:27 TRU[employer]EL Moy Garcia [facility] CPT-33421 Level 4 Est. Patient 10:43:59 CDT Prosper Arenas MD [facility] CPT-47342 Level 3 Est. Patient 10:51:19 CDT Moy Garcia [facility] CPT-00043 Level 3 Est. Patient 10:20:31 CDT [facility] CPT-36403 Level 3 Est. Patient 17:08:45 CDT [facility] CPT-48887 Level 2 Est. Patient 13:54:36 CDT Augustina Mata APRN [facility] CPT-03147 Level 3 Est. Patient 12:00:42 CDT Prosper Arenas MD [facility] CPT-40620 Level 3 Est. Patient 09:57:28 [employer] [facility] Level 3 Est. Patient 11:41:19 [employer] [facility] CPT-03600 Level 4 Est. Patient 17:07:35 [employer] WHEEL Moy Garcia [facility] CPT-92397 Level 5 Est. Patient 14:33:32 CDT [facility] CPT-93647 Level 3 Est. Patient 12:25:35 CDT Prosper Arenas MD [facility] Procedures Code Procedure Name Date Entry Date Standard Description CPT-000 Give Appropriate Flu Vaccine 10:13:55 [employer] CPT-000 Give Immunizations Due 10:13:55 [employer] CPT-64691 HGBA1C - LAB USE ONLY 09:42:47 [employer] CPT-09471 TPSA - LAB USE ONLY 09:42:46 [employer] CPT-18072 Venipuncture Draw Fee 09:42:46 [employer] CPT-81607 Port a cath flush 13:33:18 [employer] CPT-17070 First Vx - Ix admin for Medicare patients 10:42:57 [employer] CPT-79942 Fluzone Preservative Free Intramuscular Suspension 10:42 :57 [employer] CPT-G0438 Initial Annual Wellness Exam 10:13:55 [employer] CPT-000 Give Appropriate Flu Vaccine 10:44:04 CDT CPT-000 Give Pneumovax 10:44:03 CDT CPT-11153 Port a cath flush 17:04:43 CDT CPT-59228 Prevnar 13 11:19:17 CDT CPT-27556 Fluzone Quadrivalent preservative free (>=3yrs.) 11:19: 17 CDT CPT-97490 Immunization Each Additional Inj 11:19:17 CDT CPT-93216 Immunization Single Admin 11:19:17 CDT CPT-88058 Port a cath flush 13:28:22 CDT CPT-TCMM Transitional Care Mgmt-Moderate 13:40:15 CDT CPT-G0008 Administration of Influenza Virus Vaccine 13:59:20 CDT CPT-73160 Fluzone High-Dose Intramuscular Suspension 13:59:20 CDT CPT-89665 Venipuncture Draw Fee 09:56:19 CDT CPT-OV Office Visit 15:46:10 CDT
--- OUTSIDE RECORDS SUMMARY | 2017-08-25 21:47 | XMS REPORT | Clinical Summary ---
Author Author Admin, IWONA Organization [facility] Address Unknown Phone Unavailable Allergies, Adverse Reactions, Alerts Allergy Name Reaction Description Start Date Severity Status Provider ERYTHROMYCIN Stomach cramps Moderate Active Prosper Arenas MD CODEINE Critical Active Maliheh Ziglari SENIOR ENVIRONMENTAL ENGINEER DARVOCET Critical Active Maliheh Ziglari SENIOR ENVIRONMENTAL ENGINEER LEVAQUIN Critical Active Maliheh Ziglari SENIOR ENVIRONMENTAL ENGINEER Conditions or Problems Problem Name Problem [...] type II, uncontrolled 250.02 Active Maliheh Ziglari SENIOR ENVIRONMENTAL ENGINEER Diabetes mellitus without mention of complication, [...] hyperglycemia 250.00 Active 03/21 Maliheh Ziglari SENIOR ENVIRONMENTAL ENGINEER Diabetes mellitus without mention of complication, type II or unspecified type, not stated as uncontrolled long-term use of insulin treatment V58.67 Active Maliheh Ziglari SENIOR ENVIRONMENTAL ENGINEER Long-term (current) use of insulin Diabetes mellitus, type II with hypoglycemia 250.80 Active 07/22 Maliheh Ziglari SENIOR ENVIRONMENTAL ENGINEER Diabetes mellitus with other specified manifestations, type II or unspecified type, not stated as uncontrolled 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 Maliheh Ziglari SENIOR ENVIRONMENTAL ENGINEER Diabetes mellitus with renal manifestations, type II or unspecified type, not stated as uncontrolled Wellness exam V70.0 Active Dee Palmer APRN Routine general medical examination at a health care facility Fitting and adjustment of vascular catheter V58.81 Active 02/06 Dee Palmer APRN Encounter for fitting and adjustment of vascular catheter Unawareness of hypoglycemia in diabetes mellitus, type II 250.80 Active Maliheh Ziglari SENIOR ENVIRONMENTAL ENGINEER Diabetes mellitus with other specified manifestations, [...] then 1 daily for 3 days PREDNISONE 09012387022 No Longer Active Moy PARISH Active BENZONATATE 200 MG CAPS Take 1 tablet 3 times a day as needed for cough 07/29 BENZONATATE 53311735006 No Longer Active Propser Arenas MD Active HYDROCHLOROTHIAZIDE 25 MG TABS 1 tablet by mouth daily HYDROCHLOROTHIAZIDE 99496929451 No Longer Active Prosper Arenas MD Active ACCU-CHEK JOANNA PLUS STRP check blood sugars 5x a day, before each meal and bedtime and 15 minutes after treating a low blood. sugar GLUCOSE BLOOD 31528209607 Active Malpapo Wallaceglari SENIOR ENVIRONMENTAL ENGINEER Active NOVOLOG FLEXPEN 100 UNIT/ML SOPN Take 25 units with each meal, add 1u/50 for blood sugars above 150. INSULIN ASPART 19789425164 Active Malpapo Wallaceglari SENIOR ENVIRONMENTAL ENGINEER Active LANTUS SOLOSTAR 100 UNIT/ML SOLN Take 40 units at 7-8pm daily INSULIN GLARGINE 05741533734 [facility] Ziglari SENIOR ENVIRONMENTAL ENGINEER Active MECLIZINE HCL 25 MG TABS 1 daily needed for dizziness MECLIZINE HCL 22577764540 No Longer Active Maleh Ziglari SENIOR ENVIRONMENTAL ENGINEER Active BENZONATATE 200 MG CAPS 1 tab, 2-3 times a day BENZONATATE 72190164344 No Longer Active [facility] Ziglari SENIOR ENVIRONMENTAL ENGINEER Active HALOPERIDOL 0.5 MG TABS one tablet three times a day HALOPERIDOL 77281683523 No Longer [facility] Ziglari SENIOR ENVIRONMENTAL ENGINEER Active TRAZODONE HCL 50 MG TAB three tablets at bed time TRAZODONE HCL 74886470531 No Longer Active [facility] Ziglari SENIOR ENVIRONMENTAL ENGINEER Active REVLIMID 25 MG CAPS one capsule daily for 21 days then off for 7 days 2014 LENALIDOMIDE 77664691733 No Longer Active [facility] Ziglari SENIOR ENVIRONMENTAL ENGINEER Active ZITHROMAX Z-EDDIE 250 MG TABS 2 today, then 1 daily for 4 days 2014 AZITHROMYCIN 41155905520 No Longer Active Augustina Mata BESSY Active NOVOLIN R RELION 100 UNIT/ML INJ SOLN 30- 40 units each meal sliding scale INSULIN REGULAR HUMAN 82236786851 No Longer Active [facility] Rodrigoglari SENIOR ENVIRONMENTAL ENGINEER Active LISINOPRIL 5 MG TABS 1 daily LISINOPRIL 17121298009 Active Prosper Arenas MD Active CALCIUM 500/D 500-200 MG-UNIT TABS one tablet daily CALCIUM CARBONATE- VITAMIN D 75772797428 Active Prosper Arenas MD Active HYDROCODONE-ACETAMINOPHEN 5-500 MG TABS 1-2 FOUR TIMES A DAY, PRN HYDROCODONE-ACETAMINOPHEN 11350489644 No Longer Active Prosper Arenas MD Active SIMVASTATIN 80 MG TABS 1/2 tablet daily SIMVASTATIN 70373430822 Active Prosper Arenas MD Active METOPROLOL TARTRATE 25 MG TABS 1/2 tablet twice a day METOPROLOL TARTRATE 98849792072 Active Prosper Arenas MD Active ASPIRIN 81 MG TAB 1 tablet by mouth daily ASPIRIN 67932107573 Active Prosper Arenas MD Active OMEPRAZOLE 20 MG CPDR 1 qd OMEPRAZOLE 40915848511 Active DARCIE Miller Active DOXYCYCLINE HYCLATE 100 MG CAPS take one capsule by mouth twice daily for ten days DOXYCYCLINE HYCLATE 74645561148 No Longer Active Mekhi Dukes MD Active DOXYCYCLINE HYCLATE 100 MG CAPS take one capsule by mouth twice daily for ten days DOXYCYCLINE HYCLATE 100 MG CAPS 8720390 DOXYCYCLINE HYCLATE Inactive HYDROCODONE-ACETAMINOPHEN 5-500 MG TABS [...] days 2014 ZITHROMAX Z-EDDIE 250 MG TABS 7791751 AZITHROMYCIN Inactive REVLIMID 25 MG CAPS one capsule daily for 21 days then off for 7 days 2014 REVLIMID 25 MG CAPS LENALIDOMIDE Inactive TRAZODONE HCL 50 MG TAB three tablets at bed time TRAZODONE HCL 50 MG TAB 127259 TRAZODONE HCL Inactive HALOPERIDOL 0.5 MG TABS one tablet three times a day HALOPERIDOL 0.5 MG TABS 920116 HALOPERIDOL Inactive BENZONATATE 200 MG CAPS 1 tab, 2-3 times a day BENZONATATE 200 MG CAPS 997368 BENZONATATE Inactive MECLIZINE HCL 25 MG TABS 1 daily needed for dizziness MECLIZINE HCL 25 MG TABS 623226 MECLIZINE HCL Inactive HYDROCHLOROTHIAZIDE 25 MG TABS 1 tablet by mouth daily HYDROCHLOROTHIAZIDE 25 MG TABS 320442 HYDROCHLOROTHIAZIDE Inactive PREDNISONE 20 MG TABS Take 2 daily for 3 days and then 1 daily for 3 days PREDNISONE 20 MG TABS 346445 PREDNISONE Inactive BENZONATATE 200 MG CAPS Take 1 tablet 3 times a day as needed for cough 07/29 BENZONATATE 200 MG CAPS 041594 BENZONATATE Inactive Immunizations Vaccine Administration Date Value [...] LAB - Chemistry cholesterol, serum 156 mg/dL 305-554 0994/02/20 HDL cholesterol, serum 52 mg/dL > OR=40 [...] mg/dL Encounters Code Encounter Date Provider Facility CPT-27923 Level 3 Est. Patient 12:24:09 CDT Moy Garcia [facility] CPT-43781 Level 3 Est. Patient 14:34:57 CDT Prosper Arenas MD [facility] CPT-98784 Level 3 New Patient 15:44:53 SYSTEMS ANALYST ENGINEER Mekhi Dukes MD [facility] CPT-77252 Level 3 Est. Patient 14:53:34 SYSTEMS ANALYST ENGINEER Prosper Arenas MD [facility] CPT-43908 Level 4 Est. Patient 10:05:41 SYSTEMS ANALYST ENGINEER [facility] Level 3 Est. Patient 11:18:32 CDT Moy Garcia [facility] CPT-90658 Level 4 Est. Patient 11:05:10 CDT Moy Garcia [facility] CPT-38124 Level 3 Est. Patient 11:08:27 SYSTEMS ANALYST ENGINEER Moy Garcia [facility] CPT-24174 Level 4 Est. Patient 10:43:59 CDT Prosper Arenas MD [facility] CPT-79551 Level 3 Est. Patient 10:51:19 CDT Moy Garcia [facility] CPT-95389 Level 3 Est. Patient 10:20:31 [facility] CPT-88987 Level 3 Est. [facility]08[facility] Level 2 Est. Patient 13:54:36 CDT Augustina Mata APRN [facility] CPT-97633 Level 3 Est. Patient 12:00:42 CDT Prosper Arenas MD [facility] CPT-93273 Level 3 Est. Patient 09:57:28 SYSTEMS ANALYST ENGINEER Moy Garcia [facility] CPT-22646 Level 3 Est. Patient 11:41:19 SYSTEMS ANALYST ENGINEER Moy Garcia [facility] CPT-53647 Level 4 Est. Patient 17:07:35 SYSTEMS ANALYST ENGINEER Moy Garcia [facility] CPT-86117 Level 5 Est. Patient 14:33:32 [facility]T [facility] CPT-73477 Level 3 Est. Patient 12:25:35 CDT Prosper Arenas MD [facility] Procedures Code Procedure Name Date Entry Date Standard Description CPT-000 Give Appropriate Flu Vaccine 10:13:55 SYSTEMS ANALYST ENGINEER CPT-000 Give Immunizations Due 10:13:55 SYSTEMS ANALYST ENGINEER CPT-97347 HGBA1C - LAB USE ONLY 09:42:47 SYSTEMS ANALYST ENGINEER CPT-08253 TPSA - LAB USE ONLY 09:42:46 SYSTEMS ANALYST ENGINEER CPT-09442 Venipuncture Draw Fee 09:42:46 SYSTEMS ANALYST ENGINEER CPT-06841 Port a cath flush 13:33:18 SYSTEMS ANALYST ENGINEER CPT-60034 First Vx - Ix admin for Medicare patients 10:42:57 SYSTEMS ANALYST ENGINEER CPT-36203 Fluzone Preservative Free Intramuscular Suspension 10:42 :57 SYSTEMS ANALYST ENGINEER CPT-G0438 Initial Annual Wellness Exam 10:13:55 SYSTEMS ANALYST ENGINEER CPT-000 Give Appropriate Flu Vaccine 10:44:04 CDT CPT-000 Give Pneumovax 10:44:03 CDT CPT-03473 Port a cath flush 17:04:43 CDT CPT-49037 Prevnar 13 11:19:17 CDT CPT-89994 Fluzone Quadrivalent preservative free (>=3yrs.) 11:19: 17 CDT CPT-75144 Immunization Each Additional Inj 11:19:17 CDT CPT-16807 Immunization Single Admin 11:19:17 CDT CPT-95297 Port a cath flush 13:28:22 CDT CPT-TCMM Transitional Care Mgmt-Moderate 13:40:15 CDT CPT-G0008 Administration of Influenza Virus Vaccine 13:59:20 CDT CPT-60291 Fluzone High-Dose Intramuscular Suspension 13:59:20 CDT CPT-66184 Venipuncture Draw Fee 09:56:19 CDT CPT-OV Office Visit 15:46:10 CDT
--- OUTSIDE RECORDS SUMMARY | 2017-08-25 21:48 | XMS REPORT | Clinical Summary ---
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, type II [...] type II, uncontrolled 250.02 Active Maliheh Rodrigoglari PRESS LEADER Diabetes mellitus without mention of complication, type [...] with hyperglycemia 250.00 Active 03/21 Maliheh Ziglari PRESS LEADER Diabetes mellitus without mention of complication, type II or unspecified type, not stated as uncontrolled custodial use of insulin treatment V58.67 Active Luxiheh Rodrigoglari PRESS LEADER Long-term (current) use of insulin Diabetes mellitus, type II with hypoglycemia 250.80 Active 07/22 Maliheh Ziglari PRESS LEADER Diabetes mellitus with other specified manifestations, type II or unspecified type, not stated as uncontrolled 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 Maliheh Ziglari PRESS LEADER Diabetes mellitus with renal manifestations, type II or unspecified type, not stated as uncontrolled Wellness exam V70.0 Active Dee Palmer APRN Routine general medical examination at a health care facility Fitting and adjustment of vascular catheter V58.81 Active 02/06 Dee Palmer APRN Encounter for fitting and adjustment of vascular catheter Unawareness of hypoglycemia in diabetes mellitus, type II 250.80 Active Maliheh Ziglari PRESS LEADER Diabetes mellitus with other specified manifestations, type [...] MG ORAL CAPS 1 tab BID GABAPENTIN 11477567685 Active Tami Miller RN Active PREDNISONE 20 MG TABS Take 2 daily for 3 days and then 1 daily for 3 days PREDNISONE 45292227300 No Longer Active Moy PARISH Active BENZONATATE 200 MG CAPS Take 1 tablet 3 times a day as needed for cough 07/29 BENZONATATE 66546079109 No Longer Active Prosper Arenas MD Active HYDROCHLOROTHIAZIDE 25 MG TABS 1 tablet by mouth daily HYDROCHLOROTHIAZIDE 00043686957 No Longer Active Prosper Arenas MD Active ACCU-CHEK JOANNA PLUS STRP check blood sugars 5x a day, before each meal and bedtime and 15 minutes after treating a low blood. sugar GLUCOSE BLOOD 63072740414 Active Maliheh Ziglari PRESS LEADER Active NOVOLOG FLEXPEN 100 UNIT/ML SOPN Take 25 units with each meal, add 1u/50 for blood sugars above 150. INSULIN ASPART 06314971762 Active Maliheh Ziglari PRESS LEADER Active LANTUS SOLOSTAR 100 UNIT/ML SOLN Take 40 units at 7-8pm daily INSULIN GLARGINE 65865999257 Active Maliheh Ziglari PRESS LEADER Active MECLIZINE HCL 25 MG TABS 1 daily needed for dizziness MECLIZINE HCL 07442456444 No Longer Active Maliheh Ziglari PRESS LEADER Active BENZONATATE 200 MG CAPS 1 tab, 2-3 times a day BENZONATATE 53192699298 No Longer Active Maliheh Ziglari PRESS LEADER Active HALOPERIDOL 0.5 MG TABS one tablet three times a day HALOPERIDOL 40725548076 No Longer Active Maliheh Ziglari PRESS LEADER Active TRAZODONE HCL 50 MG TAB three tablets at bed time TRAZODONE HCL 62454579462 No Longer Active Maliheh Ziglari PRESS LEADER Active REVLIMID 25 MG CAPS one capsule daily for 21 days then off for 7 days 2014 LENALIDOMIDE 50875675954 No Longer Active Maliheh Ziglari PRESS LEADER Active ZITHROMAX Z-EDDIE 250 MG TABS 2 today, then 1 daily for 4 days 2014 AZITHROMYCIN 80758379925 No Longer Active Augustina Yotalaum ARCHIVIST POLITICAL HISTORY Active NOVOLIN R RELION 100 UNIT/ML INJ SOLN 30- 40 units each meal sliding scale INSULIN REGULAR HUMAN 70920674622 No Longer Active Moy PARISH Active LISINOPRIL 5 MG TABS 1 daily LISINOPRIL 51570293265 Active Prosper Arenas MD Active CALCIUM 500/D 500-200 MG-UNIT TABS one tablet daily CALCIUM CARBONATE- VITAMIN D 82791328074 Active Prosper Arenas MD Active HYDROCODONE-ACETAMINOPHEN 5-500 MG TABS 1-2 FOUR TIMES A DAY, PRN HYDROCODONE-ACETAMINOPHEN 43298063019 No Longer Active Prosper Arenas MD Active SIMVASTATIN 80 MG TABS 1/2 tablet daily SIMVASTATIN 55947886401 Active Prosper Arenas MD Active METOPROLOL TARTRATE 25 MG TABS 1/2 tablet twice a day METOPROLOL TARTRATE 52048243568 Active Prosper Arenas MD Active ASPIRIN 81 MG TAB 1 tablet by mouth daily ASPIRIN 39805877109 Active Prosper Arenas MD Active OMEPRAZOLE 20 MG CPDR 1 qd OMEPRAZOLE 20469903882 Active DARCIE Miller Active DOXYCYCLINE HYCLATE 100 MG CAPS take one capsule by mouth twice daily for ten days DOXYCYCLINE HYCLATE 54137441414 No Longer Active Mekhi Dukes MD Active DOXYCYCLINE HYCLATE 100 MG CAPS take one capsule by mouth twice daily for ten days DOXYCYCLINE HYCLATE 100 MG CAPS 4523595 DOXYCYCLINE HYCLATE Inactive HALOPERIDOL 0.5 MG TABS one tablet three times a day HALOPERIDOL 0.5 MG TABS 588139 HALOPERIDOL Inactive HYDROCHLOROTHIAZIDE 25 MG TABS 1 tablet by mouth daily HYDROCHLOROTHIAZIDE 25 MG TABS 639781 HYDROCHLOROTHIAZIDE Inactive PREDNISONE 20 MG TABS Take 2 daily for 3 days and then 1 daily for 3 days PREDNISONE 20 MG TABS 856640 PREDNISONE Inactive TRAZODONE HCL 50 MG TAB three tablets at bed time TRAZODONE HCL 50 MG TAB 139303 TRAZODONE HCL Inactive MECLIZINE HCL 25 MG TABS 1 daily needed for dizziness MECLIZINE HCL 25 MG TABS 887896 MECLIZINE HCL Inactive HYDROCODONE-ACETAMINOPHEN 5-500 MG TABS 1-2 FOUR TIMES A DAY, PRN HYDROCODONE-ACETAMINOPHEN 5-500 MG TABS HYDROCODONE- ACETAMINOPHEN Inactive BENZONATATE 200 MG CAPS 1 tab, 2-3 times a day BENZONATATE 200 MG CAPS 330334 BENZONATATE Inactive BENZONATATE 200 MG CAPS Take 1 tablet 3 times a day as needed for cough 07/29 BENZONATATE 200 MG CAPS 216401 BENZONATATE Inactive ZITHROMAX Z-EDDIE 250 MG TABS 2 today, then 1 daily for 4 days 2014 ZITHROMAX Z-EDDIE 250 MG TABS 0996898 AZITHROMYCIN Inactive REVLIMID 25 MG CAPS one [...] W/DIFF - Chemistry sodium, serum 137 mmol/L 466-088 2860/08/16 carbon dioxide, venous blood 26.3 mmol/L 21.0-32.0 [...] LAB - Chemistry cholesterol, serum 156 mg/dL 899-737 7690/02/20 HDL cholesterol, serum 52 mg/dL > OR=40 [...] mg/dL Encounters Code Encounter Date Provider Facility CPT-24296 Level 3 Est. Patient 10:00:14 CDT Mekhi Dukes MD [facility] CPT-93221 Level 3 Est. Patient 12:24:09 CDT Moy PARISH [facility] CPT-66019 Level 3 Est. Patient 14:34:57 CDT Prosper Arenas MD [facility] CPT-25099 Level 3 New Patient 15:44:53 CIVIL DEFENSE DIRECTOR Mekhi Dukes MD [facility] CPT-99128 Level 3 Est. Patient 14:53:34 CIVIL DEFENSE DIRECTOR Prosper Arenas MD [facility]-60944 Level 4 Est. Patient 10:05:41 CIVIL DEFENSE DIRECTOR Moy Rodrigokymrex [facility]-53716 Level 3 Est. Patient 11:18:32 CDT Moy Bradshawari [facility] CPT-87389 Level 4 Est. Patient 11:05:10 CDT Moy Bradshawari [facility] CPT-18171 Level 3 Est. Patient 11:08:27 CIVIL DEFENSE DIRECTOR Luxcarissashoaib Jose [facility] CPT-48720 Level 4 Est. Patient 10:43:59 CDT Prosper Arenas MD [facility]-84570 Level 3 Est. Patient 10:51:19 CDT Moy Garcia [facility] CPT-75327 Level 3 Est. Patient 10:20:31 CDT Moy Bradshawari [facility] CPT-09907 Level 3 Est. Patient 17:08:45 CDT Moy Wallacesania [facility] CPT-32525 Level 2 Est. Patient 13:54:36 CDT Augustina Mata APRN [facility] CPT-60000 Level 3 Est. Patient 12:00:42 CDT Prosper Arenas MD [facility] CPT-09489 Level 3 Est. Patient 09:57:28 CIVIL DEFENSE DIRECTOR Luxcarissashoaib Jose [facility]-95972 Level 3 Est. Patient 11:41:19 CIVIL DEFENSE DIRECTOR Luxcarissashoaib Jose [facility] CPT-30112 Level 4 Est. Patient 17:07:35 CIVIL DEFENSE DIRECTOR Malihshoaib Garcia [facility] CPT-55458 Level 5 Est. Patient 14:33:32 CDT Moy Garcia [facility] CPT-16680 Level 3 Est. Patient 12:25:35 CDT Prosper Arenas MD [facility] Procedures Code Procedure Name Date Entry Date Standard Description CPT-000 Give Appropriate Flu Vaccine 10:13:55 CIVIL DEFENSE DIRECTOR CPT-000 Give Immunizations Due 10:13:55 CIVIL DEFENSE DIRECTOR CPT-91154 HGBA1C - LAB USE ONLY 09:42:47 CIVIL DEFENSE DIRECTOR CPT-69505 TPSA - LAB USE ONLY 09:42:46 CIVIL DEFENSE DIRECTOR CPT-68139 Venipuncture Draw Fee 09:42:46 CIVIL DEFENSE DIRECTOR CPT-24070 Port a cath flush 13:33:18 CIVIL DEFENSE DIRECTOR CPT-80914 First Vx - Ix admin for Medicare patients 10:42:57 CIVIL DEFENSE DIRECTOR CPT-17905 Fluzone Preservative Free Intramuscular Suspension 10:42 :57 CIVIL DEFENSE DIRECTOR CPT-G0438 Initial Annual Wellness Exam 10:13:55 CIVIL DEFENSE DIRECTOR CPT-000 Give Appropriate Flu Vaccine 10:44:04 CDT CPT-000 Give Pneumovax 10:44:03 CDT CPT-78552 Port a cath flush 17:04:43 CDT CPT-78477 Prevnar 13 11:19:17 CDT CPT-72971 Fluzone Quadrivalent preservative free (>=3yrs.) 11:19: 17 CDT CPT-82402 Immunization Each Additional Inj 11:19:17 CDT CPT-79188 Immunization Single Admin 11:19:17 CDT CPT-97573 Port a cath flush 13:28:22 CDT CPT-TCMM Transitional Care Mgmt-Moderate 13:40:15 CDT CPT-G0008 Administration of Influenza Virus Vaccine 13:59:20 CDT CPT-47784 Fluzone High-Dose Intramuscular Suspension 13:59:20 CDT CPT-86934 Venipuncture Draw Fee 09:56:19 CDT CPT-OV Office Visit 15:46:10 CDT
--- OUTSIDE RECORDS SUMMARY | 2017-08-25 21:48 | XMS REPORT ---
Author Author [facility] Medical Staff Organization [facility] Address [address] [place] [address] Phone [phone] Care Team Providers Care Supervisor Painting Shipyard Name Role Phone YOMI RAMESH MD PP [phone] Summary purpose TRANSITION OF CARE AUTO GENERATION [...] diagnostic tests and/or laboratory data RESULTS Chemistry [id number]:52:00 Result Normal Range Units Sodium 141 134-145 mEq/l Potassium 3.8 3.5-5.1 mEq/l Chloride 103 98-107 mEq/l CO2 H 29.3 22-28 mEq/l Glucose H 148 70-105 mg/dl BUN 16 7-18 mg/dl Creatinine H 1.80 0.6-1.3 mg/dl Calcium 8.4 8.4-10.2 mg/dl TP - Total Protein 7.5 6.0-8.3 g/dl Albumin L 3.4 3.5-5 g/dl Bilirubin - Total 0.6 0.1-1.0 mg/dl AST H 106 10-42 IU/L ALT H 160 12-65 IU/L ALP 106 39-107 IU/L Osmolality 285.2 280-300 mOsm/L Albumin/Globulin Ratio 0.8 0-8 Anion GAP 8.7 8-16 BUN/Creatinine Ratio L 8.9 10-20 Estimated GFR L 46 >=60 mL/min/1.7 Hematology :52:00 Result Normal Range Units WBC L 4.5 4.8-10.8 103/uL RBC L 4.6 4.7-6.1 106/uL HGB 15.1 13.0-18.0 g/dl HCT 43.1 41.9-52.0 % MCV 93.3 80-94 FL MCH H 32.7 27-31 pg MCHC 35.0 33-37 g/dl RDW 13.2 11.5-15.5 % PLT 158 130-400 103/uL MPV H 10.9 7.3-10.4 FL Neutro % 46.1 40-70 % Lymph % 39.1 20-40 % Garfield % H 12.1 0-10.0 % Eos % 2.0 0-7.0 % Baso % 0.7 0-2 % Neutro # 2.1 1.5-7.5 103/uL Lymph # 1.8 0.9-4.0 103/uL Garfield # 0.5 0-0.8 103/uL Eos # 0.1 0-0.6 103/uL Baso # 0.0 0-0.1 103/uL Radiology Results :52:00 Result Normal Range Units MPV H 10.9 [...]
--- OUTSIDE RECORDS SUMMARY | 2017-08-25 21:49 | XMS REPORT | Clinical Summary ---
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 internal mellitus without mention of complication, type II [...] type II, uncontrolled 250.02 Active Maliheh Rodrigoglari HARPOONER Diabetes mellitus without mention of complication, type [...] with hyperglycemia 250.00 Active 03/21 Maliheh Ziglari HARPOONER Diabetes mellitus without mention of complication, type II or unspecified type, not stated as uncontrolled detention use of insulin treatment V58.67 Active Luxiheh Rodrigoglari HARPOONER Long-term (current) use of insulin Diabetes mellitus, type II with hypoglycemia 250.80 Active 07/22 Maliheh Ziglari HARPOONER Diabetes mellitus with other specified manifestations, type II or unspecified type, not stated as uncontrolled 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 Maliheh Ziglari HARPOONER Diabetes mellitus with renal manifestations, type II or unspecified type, not stated as uncontrolled Wellness exam V70.0 Active Dee Palmer APRN Routine general medical examination at a health care facility Fitting and adjustment of vascular catheter V58.81 Active 02/06 Dee Palmer APRN Encounter for fitting and adjustment of vascular catheter Unawareness of hypoglycemia in diabetes mellitus, type II 250.80 Active Maliheh Rodrigoglari HARPOONER Diabetes mellitus with other specified manifestations, type [...] specified as recurrent) Gastritis Inactive Maliheh Ziglari HARPOONER Unspecified gastritis and gastroduodenitis, without mention of [...] po qd x 4 days 05/07 AZITHROMYCIN 21753065693 No Longer Active Dee Palmer APRN Active GUAIFENESIN DM 400-20 MG ORAL TABLET 1 pill by mouth twice daily, if needed for cough DEXTROMETHORPHAN-GUAIFENESIN 99894992974 Active Dee Palmer APRN Active PREDNISONE 20 MG ORAL TABLET 2 tabs daily for 4 days, 1 tab daily for 4 days, 1/2 tab daily for 4 days PREDNISONE 52153080469 Active Dee Palmer APRN Active ASPIRIN 81 MG ORAL TABLET 1 po qd ASPIRIN 36269935422 Active Dee Palmer APRN Active CALCIUM 500/D 500-200 MG-UNIT ORAL TABLET one tablet daily CALCIUM CARBONATE-VITAMIN D 21114793718 No Longer Active Dee Palmer APRN Active HYDROCODONE-ACETAMINOPHEN 7.5-325 MG ORAL TABLET 1-2 every 4-6 hrs prn 02/25 HYDROCODONE-ACETAMINOPHEN 95740492576 Active Marina Messina BESSY Active ASPIRIN 81 MG ORAL TABLET 1 tablet by mouth daily ASPIRIN 89551873309 No Longer Active Marina Messina BESSY Active SIMVASTATIN 80 MG ORAL TABLET 1/2 tablet daily SIMVASTATIN 13809223214 No Longer Active Mekhi Dukes MD Active OMEPRAZOLE 20 MG ORAL CAPSULE DELAYED RELEASE 1 qd OMEPRAZOLE 89164507408 No Longer Active Mekhi Dukes MD Active METOPROLOL TARTRATE 25 MG ORAL TABLET 1/2 tablet twice a day METOPROLOL TARTRATE 83210025484 No Longer Active Mekhi Dukes MD Active LISINOPRIL 5 MG ORAL TABLET 1 daily LISINOPRIL 21144943624 No Longer Active Mekhi Dukes MD Active NOVOLOG FLEXPEN 100 UNIT/ML SUBCUTANEOUS SOLUTION PEN-INJECTOR Take 8 units with each meal, add 1u/50 for blood sugars above 150. INSULIN ASPART 46582350166 Active Moy PARISH Active GABAPENTIN 300 MG ORAL CAPSULE 1 tab BID GABAPENTIN 21397828147 Active Tami Miller RN Active PREDNISONE 20 MG ORAL TABLET Take 2 daily for 3 days and then 1 daily for 3 days PREDNISONE 01051249696 No Longer Active Moy PARISH Active BENZONATATE 200 MG ORAL CAPSULE Take 1 tablet 3 times a day as needed for cough BENZONATATE 38920774738 No Longer Active Prosper Arenas MD Active HYDROCHLOROTHIAZIDE 25 MG ORAL TABLET 1 tablet by mouth daily HYDROCHLOROTHIAZIDE 45843934925 No Longer Active Prosper Arenas MD Active ACCU-CHEK JOANNA PLUS IN VITRO STRIP check blood sugars 5x a day, before each meal and bedtime and 15 minutes after treating a low blood. sugar GLUCOSE BLOOD 10740042602 Active Moy PARISH Active LANTUS SOLOSTAR 100 UNIT/ML SUBCUTANEOUS SOLUTION PEN-INJECTOR Take 40 units at 7-8pm daily INSULIN GLARGINE 22266618580 Active Maliheh Ziglari HARPOONER Active MECLIZINE HCL 25 MG ORAL TABLET 1 daily needed for dizziness 2015 MECLIZINE HCL 98170951656 No Longer Active Maliheh Ziglari HARPOONER Active BENZONATATE 200 MG ORAL CAPSULE 1 tab, 2-3 times a day BENZONATATE 06777546274 No Longer Active Maleh Ziglari HARPOONER Active HALOPERIDOL 0.5 MG ORAL TABLET one tablet three times a day HALOPERIDOL 05062904670 No Longer Active Maliheh Ziglari HARPOONER Active TRAZODONE HCL 50 MG ORAL TABLET three tablets at bed time TRAZODONE HCL 99981467438 No Longer Active Maleh Ziglari HARPOONER Active REVLIMID 25 MG ORAL CAPSULE one capsule daily for 21 days then off for 7 days LENALIDOMIDE 91546681600 No Longer [facility] HARPOONER Active ZITHROMAX Z-EDDIE 250 MG ORAL TABLET 2 today, then 1 daily for 4 days AZITHROMYCIN 10895707499 No Longer Active Augustina Mata PROFESSOR OF EXERCISE SCIENCE Active NOVOLIN R RELION 100 UNIT/ML INJECTION SOLUTION 30- 40 units each meal sliding scale INSULIN REGULAR HUMAN 53143708984 No Longer Active Moy Wallaceglari HARPOONER Active HYDROCODONE-ACETAMINOPHEN 5-500 MG ORAL TABLET 1-2 FOUR TIMES A DAY, PRN 2010 HYDROCODONE-ACETAMINOPHEN 51555774018 No Longer Active Prosper Arenas MD Active DOXYCYCLINE HYCLATE 100 MG ORAL CAPSULE take one capsule by mouth twice daily for ten days DOXYCYCLINE HYCLATE 13581417360 No Longer Active Mekhi Dukes MD Active DOXYCYCLINE HYCLATE 100 MG ORAL CAPSULE take one capsule by mouth twice daily for ten days DOXYCYCLINE HYCLATE 100 MG ORAL CAPSULE 0937020 DOXYCYCLINE HYCLATE Inactive HYDROCODONE-ACETAMINOPHEN 5-500 MG ORAL TABLET 1-2 FOUR TIMES A DAY, PRN 2010 HYDROCODONE-ACETAMINOPHEN 5-500 MG ORAL TABLET 817327 HYDROCODONE-ACETAMINOPHEN Inactive NOVOLIN R RELION 100 UNIT/ML INJECTION SOLUTION 30- 40 units each meal sliding scale NOVOLIN R RELION 100 UNIT/ML INJECTION SOLUTION INSULIN REGULAR HUMAN Inactive ZITHROMAX Z-EDDIE 250 MG ORAL TABLET 2 today, then 1 daily for 4 days ZITHROMAX Z-EDDIE 250 MG ORAL TABLET 185428 AZITHROMYCIN Inactive REVLIMID 25 MG ORAL CAPSULE one capsule daily for 21 days then off for 7 days REVLIMID 25 MG ORAL CAPSULE LENALIDOMIDE Inactive TRAZODONE HCL 50 MG ORAL TABLET three tablets at bed time TRAZODONE HCL 50 MG ORAL TABLET 958745 TRAZODONE HCL Inactive HALOPERIDOL 0.5 MG ORAL TABLET one tablet three times a day HALOPERIDOL 0.5 MG ORAL TABLET 748483 HALOPERIDOL Inactive BENZONATATE 200 MG ORAL CAPSULE 1 tab, 2-3 times a day BENZONATATE 200 MG ORAL CAPSULE 935702 BENZONATATE Inactive MECLIZINE HCL 25 MG ORAL TABLET 1 daily needed for dizziness 2015 MECLIZINE HCL 25 MG ORAL TABLET 785624 MECLIZINE HCL Inactive HYDROCHLOROTHIAZIDE 25 MG ORAL TABLET 1 tablet by mouth daily HYDROCHLOROTHIAZIDE 25 MG ORAL TABLET 211093 HYDROCHLOROTHIAZIDE Inactive PREDNISONE 20 MG ORAL TABLET Take 2 daily for 3 days and then 1 daily for 3 days PREDNISONE 20 MG ORAL TABLET 893557 PREDNISONE Inactive LISINOPRIL 5 MG ORAL TABLET 1 daily LISINOPRIL 5 MG ORAL TABLET 895681 LISINOPRIL Inactive METOPROLOL TARTRATE 25 MG ORAL TABLET 1/2 tablet twice a day METOPROLOL TARTRATE 25 MG ORAL TABLET 303953 METOPROLOL TARTRATE Inactive OMEPRAZOLE 20 MG ORAL CAPSULE DELAYED RELEASE 1 qd OMEPRAZOLE 20 MG ORAL CAPSULE DELAYED RELEASE 223542 OMEPRAZOLE Inactive SIMVASTATIN 80 MG ORAL TABLET 1/2 tablet daily SIMVASTATIN 80 MG ORAL TABLET 742464 SIMVASTATIN Inactive ASPIRIN 81 MG ORAL TABLET 1 tablet by mouth daily ASPIRIN 81 MG ORAL TABLET 681071 ASPIRIN Inactive CALCIUM 500/D 500-200 MG-UNIT ORAL TABLET one tablet daily CALCIUM 500/D 500-200 MG-UNIT ORAL TABLET CALCIUM CARBONATE-VITAMIN D Inactive BENZONATATE 200 MG ORAL CAPSULE Take 1 tablet 3 times a day as needed for cough BENZONATATE 200 MG ORAL CAPSULE 202506 BENZONATATE Inactive AZITHROMYCIN 250 MG ORAL TABLET 2 po qd x 1 day, then 1 po qd x 4 days 05/07 AZITHROMYCIN 250 MG ORAL TABLET 157987 AZITHROMYCIN Inactive Immunizations Vaccine Administration Date Value [...] W/DIFF - Chemistry sodium, serum 137 mmol/L 043-289 1079/08/16 carbon dioxide, venous blood 26.3 mmol/L 21.0-32.0 [...] LABS - Chemistry cholesterol, serum 115 mg/dL 743-279 0322/08/18 triglyceride, serum, fasting 89 mg/dL 30-200 HDL [...] mg/dL Encounters Code Encounter Date Provider Facility CPT-38333 Level 3 Est. Patient 14:09:25 WASHING MACHINE OPERATOR Dee Palmer [facility] CPT-69573 Level 3 Est. Patient 10:53:32 WASHING MACHINE OPERATOR Luxcarissashoaib Jose [facility] CPT-86371 Level 3 Est. Patient 17:11:55 WASHING MACHINE OPERATOR Ismael Gracia MD [facility] CPT-53040 Level 4 Est. Patient 16:29:19 CDT Mekhi Dukes MD [facility] CPT-31955 Level 3 New Patient 17:05:24 CDT Ismael Gracia MD [facility] CPT-76065 Level 2 Est. Patient 15:43:17 CDT Mekhi Dukes MD [facility] CPT-66681 Level 3 Est. Patient 09:30:37 CDT Moy Jose [facility]-44958 Level 3 Est. Patient 10:00:14 CDT Mekhi Dukes MD [facility] CPT-20687 Level 3 Est. [facility] 12:24:09 [facility]55837 Level 3 Est. Patient 14:34:57 CDT Prosper Arenas MD [facility] CPT-76816 Level 3 New Patient 15:44:53 WASHING MACHINE OPERATOR Mekhi Dukes MD [facility] CPT-05744 Level 3 Est. Patient 14:53:34 WASHING MACHINE OPERATOR Prosper Arenas MD [facility] CPT-06757 Level 4 Est. Patient 10:05:41 WASHING MACHINE OPERATOR Luxcarissashoaib Jose [facility] CPT-10119 Level 3 Est. Patient 11:18:32 CDT Moy Jose [facility] CPT-20425 Level 4 Est. Patient 11:05:10 [facility]T [facility] CPT-80984 Level 3 Est. Patient 11:08:27 WASHING MACHINE OPERATOR Luxpapo Garcia [facility] CPT-65063 Level 4 Est. Patient 10:43:59 CDT Prosper Arenas MD [facility] CPT-25908 Level 3 Est. Patient 10:51:19 CDT Moy Garcia [facility] CPT-07476 Level 3 Est. Patient 10:20:31 CDT Moy Garcia [facility] CPT-64917 Level 3 Est. Patient 17:08:45 CDT Luxshoaib Garcia [facility] CPT-79836 Level 2 Est. Patient 13:54:36 CDT Augustina Mata BESSY [facility] CPT-53032 Level 3 Est. Patient 12:00:42 CDT Prosper Arenas MD [facility] CPT-77006 Level 3 Est. Patient 09:57:28 WASHING MACHINE OPERATOR [facility]32 Level 3 Est. Patient 11:41:19 WASHING MACHINE OPERATOR [facility] CPT-55911 Level 4 Est. Patient 17:07:35 WASHING MACHINE OPERATOR [facility] CPT-42197 Level 5 Est. Patient 14:33:32 CDT [facility] CPT-89430 Level 3 Est. Patient 12:25:35 CDT Prosper Arenas MD [facility] Procedures Code Procedure Name Date Entry Date Standard Description CPT-95071 Chest, 2 views 14:17:20 WASHING MACHINE OPERATOR CPT-56442 Postop F/U Visit 14:44:45 WASHING MACHINE OPERATOR CPT-87805 Postop F/U Visit 17:20:20 WASHING MACHINE OPERATOR CPT-G0439 [place] [facility] Annual Wellness Exam 08:39:41 WASHING MACHINE OPERATOR CPT-000 Give Appropriate Flu Vaccine 10:13:55 WASHING MACHINE OPERATOR CPT-000 Give Immunizations Due 10:13:55 WASHING MACHINE OPERATOR CPT-23987 HGBA1C - LAB USE ONLY 09:42:47 WASHING MACHINE OPERATOR CPT-03194 TPSA - LAB USE ONLY 09:42:46 WASHING MACHINE OPERATOR CPT-01801 Venipuncture Draw Fee 09:42:46 WASHING MACHINE OPERATOR CPT-34644 Port a cath flush 13:33:18 WASHING MACHINE OPERATOR CPT-20240 First Vx - Ix admin for Medicare patients 10:42:57 WASHING MACHINE OPERATOR CPT-61444 Fluzone Preservative Free Intramuscular Suspension 10:42 :57 WASHING MACHINE OPERATOR CPT-G0438 Initial Annual Wellness Exam 10:13:55 WASHING MACHINE OPERATOR CPT-000 Give Appropriate Flu Vaccine 10:44:04 CDT CPT-000 Give Pneumovax 10:44:03 CDT CPT-25044 Port a cath flush 17:04:43 CDT CPT-98476 Prevnar 13 11:19:17 CDT CPT-35608 Fluzone Quadrivalent preservative free (>=3yrs.) 11:19: 17 CDT CPT-22462 Immunization Each Additional Inj 11:19:17 CDT CPT-37004 Immunization Single Admin 11:19:17 CDT CPT-70443 Port a cath flush 13:28:22 CDT CPT-TCMM Transitional Care Mgmt-Moderate 13:40:15 CDT CPT-G0008 Administration of Influenza Virus Vaccine 13:59:20 CDT CPT-37305 Fluzone High-Dose Intramuscular Suspension 13:59:20 CDT CPT-55713 Venipuncture Draw Fee 09:56:19 CDT CPT-OV Office Visit 15:46:10 CDT
--- OUTSIDE RECORDS SUMMARY | 2017-08-25 21:50 | XMS REPORT | Clinical Summary ---
Author Author Admin, IWONA Organization [facility] Address Unknown Phone Unavailable Allergies, Adverse Reactions, Alerts Allergy Name Reaction Description Start Date Severity Status Provider ERYTHROMYCIN Stomach cramps Moderate Active Prosper Arenas MD CODEINE Critical Active Maliheh Ziglari LINEN ROOM HOUSEPERSON DARVOCET Critical Active Maliheh Ziglari LINEN ROOM HOUSEPERSON LEVAQUIN Critical Active Maliheh Ziglari LINEN ROOM HOUSEPERSON Conditions or Problems Problem Name Problem Code [...] upper quadrant Syncope and collapse 780.2 Active Prsoper Arenas MD Syncope and collapse Hypokalemia 276.8 Active Prosper Arenas MD Hypopotassemia Diabetes mellitus, type II, uncontrolled 250.02 Active Maliheh Ziglari LINEN ROOM HOUSEPERSON Diabetes mellitus without mention of complication, type [...] with hyperglycemia 250.00 Active 03/21 Malpapo Wallaceglari LINEN ROOM HOUSEPERSON Diabetes mellitus without mention of complication, type II or unspecified type, not stated as uncontrolled 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 INSULIN ASPART 08435512332 Active Maliheh Ziglari LINEN ROOM HOUSEPERSON Active MECLIZINE HCL 25 MG TABS 1 daily needed for dizziness MECLIZINE HCL 10180596569 Active Prosper Arenas MD Active BENZONATATE 200 MG CAPS 1 tab, 2-3 times a day BENZONATATE 14937277280 No Longer Active Maliheh Ziglari LINEN ROOM HOUSEPERSON Active HALOPERIDOL 0.5 MG TABS one tablet three times a day HALOPERIDOL 80522422412 No Longer Active Maliheh Ziglari LINEN ROOM HOUSEPERSON Active TRAZODONE HCL 50 MG TAB three tablets at bed time TRAZODONE HCL 76142342994 No Longer Active [facility] Rodrigosania DURANTP Active REVLIMID 25 MG CAPS one capsule daily for 21 days then off for 7 days 2014 LENALIDOMIDE 35487628852 No Longer Active Moy Jose LINEN ROOM HOUSEPERSON Active ACCU-CHEK JOANNA PLUS STRP check blood sugars 3x a day GLUCOSE BLOOD 41331361635 Active Luxshoaib Wallaceglari LINEN ROOM HOUSEPERSON Active ZITHROMAX Z-EDDIE 250 MG TABS 2 today, then 1 daily for 4 days 2014 AZITHROMYCIN 35654968327 No Longer Active Augustina Mata SOFTWARE DEVELOPMENT LEADER Active NOVOLIN R RELION 100 UNIT/ML INJ SOLN 30- 40 units each meal sliding scale INSULIN REGULAR HUMAN 75254530814 No Longer Active Luxcarissashoaib PARISH Active LISINOPRIL 5 MG TABS 1 daily LISINOPRIL 66662246498 Active Prosper Arenas MD Active CALCIUM 500/D 500-200 MG-UNIT TABS one tablet daily CALCIUM CARBONATE- VITAMIN D 46831405039 Active Prosper Arenas MD Active HYDROCHLOROTHIAZIDE 25 MG TABS 1 tablet by mouth daily HYDROCHLOROTHIAZIDE 52734339278 Active Prosper Arenas MD Active HYDROCODONE-ACETAMINOPHEN 5-500 MG TABS 1-2 FOUR TIMES A DAY, PRN HYDROCODONE-ACETAMINOPHEN 52172633702 No Longer Active Prosper Arenas MD Active SIMVASTATIN 80 MG TABS 1/2 tablet daily SIMVASTATIN 61217080578 Active Prosper Arenas MD Active METOPROLOL TARTRATE 25 MG TABS 1/2 tablet twice a day METOPROLOL TARTRATE 56294297411 Active Prosper Arenas MD Active ASPIRIN 81 MG TAB 1 tablet by mouth daily ASPIRIN 75078192903 Active Prosper Arenas MD Active OMEPRAZOLE 20 MG CPDR 1 qd OMEPRAZOLE 86340136009 Active DARCIE Miller Active DOXYCYCLINE HYCLATE 100 MG CAPS take one capsule by mouth twice daily for ten days DOXYCYCLINE HYCLATE 44969599101 No Longer Active Mekhi Dukes MD Active DOXYCYCLINE HYCLATE 100 MG CAPS take one capsule by mouth twice daily for ten days DOXYCYCLINE HYCLATE 100 MG CAPS 6234514 DOXYCYCLINE HYCLATE Inactive HYDROCODONE-ACETAMINOPHEN 5-500 MG TABS [...] days 2014 ZITHROMAX Z-EDDIE 250 MG TABS 6671948 AZITHROMYCIN Inactive REVLIMID 25 MG CAPS one capsule daily for 21 days then off for 7 days 2014 REVLIMID 25 MG CAPS LENALIDOMIDE Inactive TRAZODONE HCL 50 MG TAB three tablets at bed time TRAZODONE HCL 50 MG TAB 927874 TRAZODONE HCL Inactive HALOPERIDOL 0.5 MG TABS one tablet three times a day HALOPERIDOL 0.5 MG TABS 090440 HALOPERIDOL Inactive BENZONATATE 200 MG CAPS 1 tab, 2-3 times a day BENZONATATE 200 MG CAPS 846914 BENZONATATE Inactive Immunizations Vaccine Administration Date Value [...] Description Chart Maintenance: Outside labs entered on [employer] - Chemistry sodium, serum 139 mmol/L potassium, [...] U/L Chart Maintenance: Outside labs entered on [employer] - Hematology leukocyte count, blood 5.1 10*3/mm3 hemoglobin, blood 14.7 g/dL platelet count 190 10*3/mm3 leukocyte count, blood 4.5 10*3/mm3 hemoglobin, blood 15.1 g/dL platelet count 158 10*3/mm3 Lab Report: Basic Metabolic Panel, HGBA1C - Chemistry sodium, serum 135 mmol/L 275-022 9397/09/17 potassium, serum 4.0 mmol/L 3.5-5.2 chloride, serum 98 mmol/L 98-107 carbon dioxide, venous blood 29.8 mmol/L 21.0-32.0 blood glucose 180 mg/dL 65-110 calcium, serum 8.7 mg/dL 8.5-10.1 urea nitrogen, blood 17 mg/dL 7-18 creatinine, serum 2.00 mg/dL 0.55-1.30 hemoglobin A1C, blood, as % of total hemoglobin 7.4 % 4.3-6.0 sodium, serum 134 mmol/L 264-248 3514/01/27 potassium, serum 4.1 mmol/L 3.5-5.2 chloride, serum 96 mmol/L 98-107 carbon dioxide, venous blood 35.1 mmol/L 21.0-32.0 blood glucose 346 mg/dL 65-110 calcium, serum 8.4 mg/dL 8.5-10.1 urea nitrogen, blood 18 mg/dL 7-18 creatinine, serum 2.00 mg/dL 0.60-1.30 hemoglobin A1C, blood, as % of total hemoglobin 8.4 % 4.3-6.0 Lab Report: CBC W/DIFF, Comp. Metabolic Panel - Chemistry sodium, serum 137 mmol/L 412-965 2742/01/21 potassium, serum 4.1 mmol/L 3.5-5.2 chloride, serum 99 mmol/L 98-107 carbon dioxide, venous blood 30.9 mmol/L 21.0-32.0 blood glucose 303 mg/dL 65-110 urea nitrogen, blood 19 mg/dL 7-18 creatinine, serum 2.00 mg/dL 0.60-1.30 alanine aminotransferase (SGPT), serum 84 U/L 12-78 aspartate aminotransferase (SGOT), serum 41 U/L 15-37 calcium, serum 7.8 mg/dL 8.5-10.1 bilirubin, serum, total 0.50 mg/dL 0.00-1.00 sodium, serum 131 mmol/L 539-451 7457/03/18 potassium, serum 4.4 mmol/L 3.5-5.2 chloride, serum [...] % 11.6-14.8 platelet count 137 10^3/MM^3 10*3/mm3 189-116 4718/03/18 leukocyte count, blood 4.8 10^3/MM^3 10*3/mm3 4.6-10.2 [...] HGBA1C - Chemistry sodium, serum 137 mmol/L 023-513 9674/10/23 potassium, serum 3.5 mmol/L 3.5-5.2 chloride, serum [...] mg/dL Encounters Code Encounter Date Provider Facility CPT-27411 Level 3 Est. Patient 11:08:27 [facility] [place] [facility]12 Level 4 Est. Patient 10:43:59 CDT Prosper Arenas MD [facility] CPT-91988 Level 3 Est. Patient 10:51:19 CDT [facility] CPT-05733 Level 3 Est. Patient 10:20:31 CDT [facility] CPT-96561 Level 3 Est. Patient 17:08:45 CDT [facility] CPT-94753 Level 2 Est. Patient 13:54:36 CDT Augustina Mata APRN [facility] CPT-52203 Level 3 Est. Patient 12:00:42 CDT Prosper Arenas MD [facility] CPT-88206 Level 3 Est. Patient 09:57:28 [facility] EST[facility]ATOR [facility] [place] CPT-18593 Level 3 Est. Patient 11:41:19 YARDAGE ESTIMATOR [facility] CPT-04338 Level 4 Est. Patient 17:07:35 YARDAGE ESTIMATOR [facility] CPT-02578 Level 5 Est. Patient 14:33:32 CDT [facility] CPT-55142 Level 3 Est. Patient 12:25:35 CDT Prosper Arenas MD [facility] Procedures Code Procedure Name Date Entry Date Standard Description CPT-000 Give Appropriate Flu Vaccine 10:44:04 CDT CPT-000 Give Pneumovax 10:44:03 CDT CPT-11305 Port a cath flush 17:04:43 CDT CPT-00124 Prevnar 13 11:19:17 CDT CPT-61311 Fluzone Quadrivalent preservative free (>=3yrs.) 11:19: 17 CDT CPT-49292 Immunization Each Additional Inj 11:19:17 CDT CPT-15740 Immunization Single Admin 11:19:17 CDT CPT-97859 Port a cath flush 13:28:22 CDT CPT-TCMM Transitional Care Mgmt-Moderate 13:40:15 CDT CPT-G0008 Administration of Influenza Virus Vaccine 13:59:20 CDT CPT-82463 Fluzone High-Dose Intramuscular Suspension 13:59:20 CDT CPT-34457 Venipuncture Draw Fee 09:56:19 CDT CPT-OV Office Visit 15:46:10 CDT
--- OUTSIDE RECORDS SUMMARY | 2017-08-25 21:51 | XMS REPORT | Clinical Summary ---
Author Author Admin, IWONA Organization [employer] Address Unknown Phone Unavailable Allergies, Adverse Reactions, Alerts Allergy Name Reaction Description Start Date Severity Status Provider ERYTHROMYCIN Stomach cramps Moderate Active Prosper Arenas MD CODEINE Critical Active Maliheh Ziglari THERMOSTAT REPAIRER DARVOCET Critical Active Maliheh Ziglari THERMOSTAT REPAIRER LEVAQUIN Critical Active Maliheh Ziglari THERMOSTAT REPAIRER Conditions or Problems Problem Name Problem Code Onset Date Status Entry Date Provider Comment Standard Description Annotate Diabetes, Type 2 250.00 Resolved aTmi Miller healthcare representative mellitus without mention of complication, type [...] type II, uncontrolled 250.02 Active Maliheh Rodrigoglari THERMOSTAT REPAIRER Diabetes mellitus without mention of complication, [...] with hyperglycemia 250.00 Active 03/21 Maliheh Ziglari THERMOSTAT REPAIRER Diabetes mellitus without mention of complication, type II or unspecified type, not stated as uncontrolled residential use of insulin treatment V58.67 Active Luxiheh Rodrigoglari THERMOSTAT REPAIRER Long-term (current) use of insulin Diabetes mellitus, type II with hypoglycemia 250.80 Active 07/22 Maliheh Ziglari THERMOSTAT REPAIRER Diabetes mellitus with other specified manifestations, type II or unspecified type, not stated as uncontrolled 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 Maliheh Ziglari THERMOSTAT REPAIRER Diabetes mellitus with renal manifestations, type II or unspecified type, not stated as uncontrolled Wellness exam V70.0 Active Dee Palmer APRN Routine general medical examination at a health care facility Fitting and adjustment of vascular catheter V58.81 Active 02/06 Dee Palmer APRN Encounter for fitting and adjustment of vascular catheter Unawareness of hypoglycemia in diabetes mellitus, type II 250.80 Active Maliheh Ziglari THERMOSTAT REPAIRER Diabetes mellitus with other specified manifestations, [...] MG ORAL CAPS 1 tab BID GABAPENTIN 44378418088 Active Tami Miller RN Active PREDNISONE 20 MG TABS Take 2 daily for 3 days and then 1 daily for 3 days PREDNISONE 53361667592 No Longer Active Moy PARISH Active BENZONATATE 200 MG CAPS Take 1 tablet 3 times a day as needed for cough 07/29 BENZONATATE 59100194337 No Longer Active Prosper Arenas MD Active HYDROCHLOROTHIAZIDE 25 MG TABS 1 tablet by mouth daily HYDROCHLOROTHIAZIDE 15992011821 No Longer Active Prosper Arenas MD Active ACCU-CHEK JOANNA PLUS STRP check blood sugars 5x a day, before each meal and bedtime and 15 minutes after treating a low blood. sugar GLUCOSE BLOOD 69168577662 Active Maliheh Ziglari THERMOSTAT REPAIRER Active NOVOLOG FLEXPEN 100 UNIT/ML SOPN Take 25 units with each meal, add 1u/50 for blood sugars above 150. INSULIN ASPART 89074485715 Active Maliheh Ziglari THERMOSTAT REPAIRER Active LANTUS SOLOSTAR 100 UNIT/ML SOLN Take 40 units at 7-8pm daily INSULIN GLARGINE 39625270221 Active Maliheh Ziglari THERMOSTAT REPAIRER Active MECLIZINE HCL 25 MG TABS 1 daily needed for dizziness MECLIZINE HCL 41418564776 No Longer Active Maliheh Ziglari THERMOSTAT REPAIRER Active BENZONATATE 200 MG CAPS 1 tab, 2-3 times a day BENZONATATE 69347343531 No Longer Active Maliheh Ziglari THERMOSTAT REPAIRER Active HALOPERIDOL 0.5 MG TABS one tablet three times a day HALOPERIDOL 09370390406 No Longer Active Maliheh Ziglari THERMOSTAT REPAIRER Active TRAZODONE HCL 50 MG TAB three tablets at bed time TRAZODONE HCL 40163693701 No Longer Active Maliheh Ziglari THERMOSTAT REPAIRER Active REVLIMID 25 MG CAPS one capsule daily for 21 days then off for 7 days 2014 LENALIDOMIDE 83119377253 No Longer Active Maliheh Ziglari THERMOSTAT REPAIRER Active ZITHROMAX Z-EDDIE 250 MG TABS 2 today, then 1 daily for 4 days 2014 AZITHROMYCIN 70175144530 No Longer Active Augustina Yotalaum MOWING MACHINE OPERATOR Active NOVOLIN R RELION 100 UNIT/ML INJ SOLN 30- 40 units each meal sliding scale INSULIN REGULAR HUMAN 90149225360 No Longer Active Moy PARISH Active LISINOPRIL 5 MG TABS 1 daily LISINOPRIL 37036533719 Active Prosper Arenas MD Active CALCIUM 500/D 500-200 MG-UNIT TABS one tablet daily CALCIUM CARBONATE- VITAMIN D 72766721868 Active Prosper Arenas MD Active HYDROCODONE-ACETAMINOPHEN 5-500 MG TABS 1-2 FOUR TIMES A DAY, PRN HYDROCODONE-ACETAMINOPHEN 25133771543 No Longer Active Prosper Arenas MD Active SIMVASTATIN 80 MG TABS 1/2 tablet daily SIMVASTATIN 97989503956 Active Prosper Arenas MD Active METOPROLOL TARTRATE 25 MG TABS 1/2 tablet twice a day METOPROLOL TARTRATE 14251164432 Active Prosper Arenas MD Active ASPIRIN 81 MG TAB 1 tablet by mouth daily ASPIRIN 51823238601 Active Prosper Arenas MD Active OMEPRAZOLE 20 MG CPDR 1 qd OMEPRAZOLE 50068591132 Active DARCIE Miller Active DOXYCYCLINE HYCLATE 100 MG CAPS take one capsule by mouth twice daily for ten days DOXYCYCLINE HYCLATE 68437608318 No Longer Active Mekhi Dukes MD Active DOXYCYCLINE HYCLATE 100 MG CAPS take one capsule by mouth twice daily for ten days DOXYCYCLINE HYCLATE 100 MG CAPS 0133028 DOXYCYCLINE HYCLATE Inactive HYDROCODONE-ACETAMINOPHEN 5-500 MG TABS [...] days 2014 ZITHROMAX Z-EDDIE 250 MG TABS 9041076 AZITHROMYCIN Inactive REVLIMID 25 MG CAPS one capsule daily for 21 days then off for 7 days 2014 REVLIMID 25 MG CAPS LENALIDOMIDE Inactive TRAZODONE HCL 50 MG TAB three tablets at bed time TRAZODONE HCL 50 MG TAB 883937 TRAZODONE HCL Inactive HALOPERIDOL 0.5 MG TABS one tablet three times a day HALOPERIDOL 0.5 MG TABS 395147 HALOPERIDOL Inactive BENZONATATE 200 MG CAPS 1 tab, 2-3 times a day BENZONATATE 200 MG CAPS 206822 BENZONATATE Inactive MECLIZINE HCL 25 MG TABS 1 daily needed for dizziness MECLIZINE HCL 25 MG TABS 539313 MECLIZINE HCL Inactive HYDROCHLOROTHIAZIDE 25 MG TABS 1 tablet by mouth daily HYDROCHLOROTHIAZIDE 25 MG TABS 558661 HYDROCHLOROTHIAZIDE Inactive PREDNISONE 20 MG TABS Take 2 daily for 3 days and then 1 daily for 3 days PREDNISONE 20 MG TABS 000540 PREDNISONE Inactive BENZONATATE 200 MG CAPS Take 1 tablet 3 times a day as needed for cough 07/29 BENZONATATE 200 MG CAPS 877249 BENZONATATE Inactive Immunizations Vaccine Administration Date Value [...] W/DIFF - Chemistry sodium, serum 137 mmol/L 935-127 8165/08/16 carbon dioxide, venous blood 26.3 mmol/L 21.0-32.0 [...] Glucose - Chemistry cholesterol, serum 115 mg/dL 122-878 8554/08/18 triglyceride, serum, fasting 89 mg/dL 30-200 HDL cholesterol, serum 46 mg/dL 32-60 LDL cholesterol, serum 51 mg/dL 0-130 blood glucose 104 mg/dL 65-110 Lab Report: LIPID PANEL- REPOWER [facility] - Chemistry cholesterol, serum 156 mg/dL 908-441 7873/02/20 HDL cholesterol, serum 52 mg/dL > OR=40 [...] mg/dL Encounters Code Encounter Date Provider Facility CPT-40708 Level 3 Est. Patient 10:00:14 CDT Mekhi Dukes MD [facility] CPT-73242 Level 3 Est. Patient 12:24:09 CDT [facility] CPT-11309 Level 3 Est. Patient 14:34:57 CDT Prosper Arenas MD [facility] CPT-39626 Level 3 New Patient 15:44:53 PUBLICATIONS PRODUCTION SUPERVISOR Mekhi Dukes MD [facility] CPT-21518 Level 3 Est. Patient 14:53:34 PUBLICATIONS PRODUCTION SUPERVISOR Prosper Arenas MD [facility] CPT-14529 Level 4 Est. Patient 10:05:41 PUBLICATIONS PRODUCTION SUPERVISOR [facility] Level 3 Est. Patient 11:18:32 CDT [facility] CPT-54029 Level 4 Est. Patient 11:05:10 CDT [facility] CPT-61626 Level 3 Est. Patient 11:08:27 PUBLICATIONS PRODUCTION SUPERVISOR [facility]393 Level 4 Est. Patient 10:43:59 CDT Prosper Arenas MD [facility] CPT-73864 Level 3 Est. Patient 10:51:19 CDT [facility] CPT-64851 Level 3 Est. Patient 10:20:31 CDT [facility] CPT-41002 Level 3 Est. Patient 17:08:45 CDT Moy Garcia [facility] CPT-71682 Level 2 Est. Patient 13:54:36 CDT Augustina Mata APRN [facility] CPT-53278 Level 3 Est. Patient 12:00:42 CDT Prosper Arenas MD [facility] CPT-81032 Level 3 Est. Patient 09:57:28 PUBLICATIONS PRODUCTION SUPERVISOR Moy Garcia [facility] CPT-59993 Level 3 Est. Patient 11:41:19 PUBLICATIONS PRODUCTION SUPERVISOR [facility] Level 4 Est. Patient 17:07:35 PUBLICATIONS PRODUCTION SUPERVISOR [facility] CPT-60670 Level 5 Est. Patient 14:33:32 [facility] CPT-[facility]95 Level 3 Est. Patient 12:25:35 CDT Prosper Arenas MD [facility] Procedures Code Procedure Name Date Entry Date Standard Description CPT-000 Give Appropriate Flu Vaccine 10:13:55 PUBLICATIONS PRODUCTION SUPERVISOR CPT-000 Give Immunizations Due 10:13:55 PUBLICATIONS PRODUCTION SUPERVISOR CPT-82948 HGBA1C - LAB USE ONLY 09:42:47 PUBLICATIONS PRODUCTION SUPERVISOR CPT-53163 TPSA - LAB USE ONLY 09:42:46 PUBLICATIONS PRODUCTION SUPERVISOR CPT-38635 Venipuncture Draw Fee 09:42:46 PUBLICATIONS PRODUCTION SUPERVISOR CPT-96175 Port a cath flush 13:33:18 PUBLICATIONS PRODUCTION SUPERVISOR CPT-54367 First Vx - Ix admin for Medicare patients 10:42:57 PUBLICATIONS PRODUCTION SUPERVISOR CPT-17085 Fluzone Preservative Free Intramuscular Suspension 10:42 :57 PUBLICATIONS PRODUCTION SUPERVISOR CPT-G0438 Initial Annual Wellness Exam 10:13:55 PUBLICATIONS PRODUCTION SUPERVISOR CPT-000 Give Appropriate Flu Vaccine 10:44:04 CDT CPT-000 Give Pneumovax 10:44:03 CDT CPT-50319 Port a cath flush 17:04:43 CDT CPT-62783 Prevnar 13 11:19:17 CDT CPT-17045 Fluzone Quadrivalent preservative free (>=3yrs.) 11:19: 17 CDT CPT-27156 Immunization Each Additional Inj 11:19:17 CDT CPT-29205 Immunization Single Admin 11:19:17 CDT CPT-88078 Port a cath flush 13:28:22 CDT CPT-TCMM Transitional Care Mgmt-Moderate 13:40:15 CDT CPT-G0008 Administration of Influenza Virus Vaccine 13:59:20 CDT CPT-90607 Fluzone High-Dose Intramuscular Suspension 13:59:20 CDT CPT-41848 Venipuncture Draw Fee 09:56:19 CDT CPT-OV Office Visit 15:46:10 CDT
--- OUTSIDE RECORDS SUMMARY | 2017-08-25 21:52 | XMS REPORT | Clinical Summary ---
Author Author Admin, IWONA Organization [facility] Address Unknown Phone Unavailable Allergies, Adverse Reactions, Alerts Allergy Name Reaction Description Start Date Severity Status Provider ERYTHROMYCIN Stomach cramps Moderate Active Prosper Arenas MD CODEINE Critical Active Maliheh Ziglari BOWLING ALLEY MECHANIC DARVOCET Critical Active Maliheh Ziglari BOWLING ALLEY MECHANIC LEVAQUIN Critical Active Maliheh Ziglari BOWLING ALLEY MECHANIC Conditions or Problems Problem Name Problem [...] type II, uncontrolled 250.02 Active Maliheh Ziglari BOWLING ALLEY MECHANIC Diabetes mellitus without mention of complication, [...] then off for 7 days 2014 LENALIDOMIDE 43900616496 No Longer Active Maliheh Ziglari BOWLING ALLEY MECHANIC Active ACCU-CHEK JOANNA PLUS STRP check blood sugars 3x a day GLUCOSE BLOOD 02482786123 Active Maliheh Ziglari BOWLING ALLEY MECHANIC Active NOVOLOG FLEXPEN 100 UNIT/ML SOPN Take 15 units with each meal, add 2u/50 for blood sugars above 150 INSULIN ASPART 32587259890 Active Maliheh Ziglari BOWLING ALLEY MECHANIC Active ZITHROMAX Z-EDDIE 250 MG TABS 2 today, then 1 daily for 4 days 2014 AZITHROMYCIN 26151138063 No Longer Active Augustina Rangelann DOHERTY Active BENZONATATE 200 MG CAPS 1 tab, 2-3 times a day BENZONATATE 19453808743 Active Prosper Arenas MD Active LANTUS SOLOSTAR 100 UNIT/ML SOLN 30 units at 4-5pm daily INSULIN GLARGINE 51883725804 Active Maliheh Ziglari BOWLING ALLEY MECHANIC Active NOVOLIN R RELION 100 UNIT/ML INJ SOLN 30- 40 units each meal sliding scale INSULIN REGULAR HUMAN 63216011764 No Longer Active Maliheh Ziglari BOWLING ALLEY MECHANIC Active LISINOPRIL 5 MG TABS 1 daily LISINOPRIL 67800524948 Active Prosper Arenas MD Active CALCIUM 500/D 500-200 MG-UNIT TABS one tablet daily CALCIUM CARBONATE- VITAMIN D 54957915413 Active Prosper Arenas MD Active HYDROCHLOROTHIAZIDE 25 MG TABS 1 tablet by mouth daily HYDROCHLOROTHIAZIDE 25204872639 Active Prosper Arenas MD Active HYDROCODONE-ACETAMINOPHEN 5-500 MG TABS 1-2 FOUR TIMES A DAY, PRN HYDROCODONE-ACETAMINOPHEN 42525617536 No Longer Active Prosper Arenas MD Active TRAZODONE HCL 50 MG TAB three tablets at bed time TRAZODONE HCL 17318810699 Active Prosper Arenas MD Active SIMVASTATIN 80 MG TABS 1/2 tablet daily SIMVASTATIN 50757226573 Active Prosper Arenas MD Active METOPROLOL TARTRATE 25 MG TABS 1/2 tablet twice a day METOPROLOL TARTRATE 50722495633 Active Prosper Arenas MD Active HALOPERIDOL 0.5 MG TABS one tablet three times a day HALOPERIDOL 33053299941 Active Prosper Arenas MD Active ASPIRIN 81 MG TAB 1 tablet by mouth daily ASPIRIN 92997483551 Active Prosper Arenas MD Active OMEPRAZOLE 20 MG CPDR 1 qd OMEPRAZOLE 75697190669 Active DARCIE Miller Active DOXYCYCLINE HYCLATE 100 MG CAPS take one capsule by mouth twice daily for ten days DOXYCYCLINE HYCLATE 39943472758 No Longer Active Mekhi Dukes MD Active DOXYCYCLINE HYCLATE 100 MG CAPS take one capsule by mouth twice daily for ten days DOXYCYCLINE HYCLATE 100 MG CAPS 815030 DOXYCYCLINE HYCLATE Inactive HYDROCODONE-ACETAMINOPHEN 5-500 MG TABS [...] days 2014 ZITHROMAX Z-EDDIE 250 MG TABS 0279391 AZITHROMYCIN Inactive REVLIMID 25 MG CAPS one [...] pressure, diastolic - 8462-4 69 mm[Hg] BP chaevz blood pressure, systolic - 8480-6 112 mm[Hg] BP sys height E&M - 8302-2 66 [in_us] Bdy height pulse rate E&M - 8867-4 88 /min Heart rate temperature E&M 97.3 [degF] Body temperature weight E&M - 3141-9 166 [lb_av] Weight Measured Diagnostic Results Date Name Value Unit Range Description Chart Maintenance: Outside labs entered on [employer] - Chemistry sodium, serum 134 mmol/L potassium, [...] U/L Chart Maintenance: Outside labs entered on [employer] - Hematology leukocyte count, blood 5.1 10*3/mm3 hemoglobin, blood 14.7 g/dL platelet count 190 10*3/mm3 leukocyte count, blood 5.3 10*3/mm3 hemoglobin, blood 14.0 g/dL platelet count 240 10*3/mm3 Lab Report: Basic Metabolic Panel - Chemistry sodium, serum 137 mmol/L 437-145 2297/08/22 potassium, serum 4.0 mmol/L 3.5-5.2 chloride, serum 100 mmol/L 98-107 carbon dioxide, venous blood 27.9 mmol/L 21.0-32.0 blood glucose 109 mg/dL 65-110 calcium, serum 9.0 mg/dL 8.5-10.1 urea nitrogen, blood 15 mg/dL 7-18 creatinine, serum 2.00 mg/dL 0.60-1.30 Lab Report: Basic Metabolic Panel, HGBA1C - Chemistry sodium, serum 134 mmol/L 991-224 1352/01/27 potassium, serum 4.1 mmol/L 3.5-5.2 chloride, serum 96 mmol/L 98-107 carbon dioxide, venous blood 35.1 mmol/L 21.0-32.0 blood glucose 346 mg/dL 65-110 calcium, serum 8.4 mg/dL 8.5-10.1 urea nitrogen, blood 18 mg/dL 7-18 creatinine, serum 2.00 mg/dL 0.60-1.30 hemoglobin A1C, blood, as % of total hemoglobin 8.4 % 4.3-6.0 Lab Report: CBC W/DIFF, Comp. Metabolic Panel - Chemistry sodium, serum 137 mmol/L 012-468 4311/01/21 potassium, serum 4.1 mmol/L 3.5-5.2 chloride, serum 99 mmol/L 98-107 carbon dioxide, venous blood 30.9 mmol/L 21.0-32.0 blood glucose 303 mg/dL 65-110 urea nitrogen, blood 19 mg/dL 7-18 creatinine, serum 2.00 mg/dL 0.60-1.30 alanine aminotransferase (SGPT), serum 84 U/L 12-78 aspartate aminotransferase (SGOT), serum 41 U/L 15-37 calcium, serum 7.8 mg/dL 8.5-10.1 bilirubin, serum, total 0.50 mg/dL 0.00-1.00 sodium, serum 131 mmol/L 653-089 6636/03/18 potassium, serum 4.4 mmol/L 3.5-5.2 chloride, serum 95 mmol/L 98-107 carbon dioxide, venous blood 19.0 mmol/L 21.0-32.0 blood glucose 297 mg/dL 65-110 urea nitrogen, blood 19 mg/dL 7-18 creatinine, serum 1.70 mg/dL 0.60-1.30 alanine aminotransferase (SGPT), serum 184 U/L 12-78 aspartate aminotransferase (SGOT), serum 177 U/L 15-37 calcium, serum 7.8 mg/dL 8.5-10.1 bilirubin, serum, total 0.50 mg/dL 0.00-1.00 sodium, serum 135 mmol/L 596-943 8287/11/26 potassium, serum 4.4 mmol/L 3.5-5.2 chloride, serum [...] % 11.6-14.8 platelet count 172 10^3/MM^3 10*3/mm3 877-467 8162/01/21 leukocyte count, blood 6.3 10^3/MM^3 10*3/mm3 4.6-10.2 [...] % 11.6-14.8 platelet count 137 10^3/MM^3 10*3/mm3 826-029 5813/03/18 leukocyte count, blood 4.8 10^3/MM^3 10*3/mm3 4.6-10.2 [...] Ag - Chemistry sodium, serum 131 mmol/L 919-194 2651/10/13 potassium, serum 3.6 mmol/L 3.5-5.2 chloride, serum [...] 0.60 mg/dL 0.00-1.00 cholesterol, serum 98 mg/dL 837-979 7072/10/13 triglyceride, serum, fasting 125 mg/dL 30-200 HDL [...] mg/dL Encounters Code Encounter Date Provider Facility CPT-73227 Level 3 Est. Patient 10:20:31 CDT [facility] [place] CPT-23344 Level 3 Est. Patient 17:08:45 CDT [facility] [place] CPT-85969 Level 2 Est. Patient 13:54:36 CDT Augustina Mata APRN [facility] CPT-94551 Level 3 Est. Patient 12:00:42 CDT Prosper Arenas MD [facility] CPT-54474 Level 3 Est. Patient 09:57:28 SPORTS PHYSICAL THERAPIST [facility] Level 3 Est. Patient 11:41:19 SPORTS PHYSICAL THERAPIST [facility] [place] CPT-03496 Level 4 Est. Patient 17:07:35 SPORTS PHYSICAL THERAPIST [facility] [place] CPT-96837 Level 5 Est. Patient 14:33:32 CDT [facility] [place] CPT-54498 Level 3 Est. Patient 12:25:35 CDT Prosper Arenas MD [facility] Procedures Code Procedure Name Date Entry Date Standard Description CPT-78086 Port a cath flush 13:28:22 CDT CPT-TCMM Transitional Care Mgmt-Moderate 13:40:15 CDT CPT-G0008 Administration of Influenza Virus Vaccine 13:59:20 CDT CPT-96187 Fluzone High-Dose Intramuscular Suspension 13:59:20 CDT CPT-83049 Venipuncture Draw Fee 09:56:19 CDT CPT-OV Office Visit 15:46:10 CDT
--- OUTSIDE RECORDS SUMMARY | 2017-08-25 21:53 | XMS REPORT | Clinical Summary ---
Author Author Admin, [facility] Organization [employer] Address Unknown Phone Unavailable Allergies, Adverse Reactions, Alerts Allergy Name Reaction Description Start Date Severity Status Provider ERYTHROMYCIN Stomach cramps Moderate Active Prosper Arenas MD CODEINE Critical Active Maliheh Ziglari WEAVE DEFECT CHARTING CLERK DARVOCET Critical Active Maliheh Ziglari WEAVE DEFECT CHARTING CLERK LEVAQUIN Critical Active Maliheh Ziglari WEAVE DEFECT CHARTING CLERK Conditions or Problems Problem Name Problem Code Onset Date Status Entry Date Provider Comment Standard Description Annotate Diabetes, Type 2 250.00 Resolved Tami Miller utilization reviewer mellitus without mention of complication, type II [...] type II, uncontrolled 250.02 Active Maliheh Rodrigoglari WEAVE DEFECT CHARTING CLERK Diabetes mellitus without mention of complication, [...] with hyperglycemia 250.00 Active 03/21 Maliheh Ziglari WEAVE DEFECT CHARTING CLERK Diabetes mellitus without mention of complication, type II or unspecified type, not stated as uncontrolled custodial use of insulin treatment V58.67 Active Luxiheh Rodrigoglari WEAVE DEFECT CHARTING CLERK Long-term (current) use of insulin Diabetes mellitus, type II with hypoglycemia 250.80 Active 07/22 Maliheh Ziglari WEAVE DEFECT CHARTING CLERK Diabetes mellitus with other specified manifestations, type II or unspecified type, not stated as uncontrolled 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 Maliheh Ziglari WEAVE DEFECT CHARTING CLERK Diabetes mellitus with renal manifestations, type II or unspecified type, not stated as uncontrolled Wellness exam V70.0 Active Dee Palmer APRN Routine general medical examination at a health care facility Fitting and adjustment of vascular catheter V58.81 Active 02/06 Dee Palmer APRN Encounter for fitting and adjustment of vascular catheter Unawareness of hypoglycemia in diabetes mellitus, type II 250.80 Active Maliheh Ziglari WEAVE DEFECT CHARTING CLERK Diabetes mellitus with other specified manifestations, [...] specified as recurrent) Gastritis Active Maliheh Ziglari WEAVE DEFECT CHARTING CLERK Unspecified gastritis and gastroduodenitis, without mention [...] 1-2 every 4-6 hrs prn 02/25 HYDROCODONE-ACETAMINOPHEN 12519108341 Active Marina Messina APRN Active ASPIRIN 81 MG ORAL TABLET 1 tablet by mouth daily ASPIRIN 60355056132 No Longer Active Marina Messina APRN Active SIMVASTATIN 80 MG ORAL TABLET 1/2 tablet daily SIMVASTATIN 45319709580 No Longer Active Mekhi Dukes MD Active OMEPRAZOLE 20 MG ORAL CAPSULE DELAYED RELEASE 1 qd OMEPRAZOLE 83709899662 No Longer Active Mekhi Dukes MD Active METOPROLOL TARTRATE 25 MG ORAL TABLET 1/2 tablet twice a day METOPROLOL TARTRATE 98945440270 No Longer Active Mekhi Dukes MD Active LISINOPRIL 5 MG ORAL TABLET 1 daily LISINOPRIL 76852417864 No Longer Active Mekhi Dukes MD Active NOVOLOG FLEXPEN 100 UNIT/ML SUBCUTANEOUS SOLUTION PEN-INJECTOR Take 8 units with each meal, add 1u/50 for blood sugars above 150. INSULIN ASPART 74575866078 Active Malpapo DURANTP Active GABAPENTIN 300 MG ORAL CAPSULE 1 tab BID GABAPENTIN 02823236536 Active Tami Miller RN Active PREDNISONE 20 MG ORAL TABLET Take 2 daily for 3 days and then 1 daily for 3 days PREDNISONE 57277108218 No Longer Active Maliheh Ziglari WEAVE DEFECT CHARTING CLERK Active BENZONATATE 200 MG ORAL CAPSULE Take 1 tablet 3 times a day as needed for cough BENZONATATE 03313350825 No Longer Active Prosper Arenas MD Active HYDROCHLOROTHIAZIDE 25 MG ORAL TABLET 1 tablet by mouth daily HYDROCHLOROTHIAZIDE 21213917506 No Longer Active Prosper Arenas MD Active ACCU-CHEK JOANNA PLUS IN VITRO STRIP check blood sugars 5x a day, before each meal and bedtime and 15 minutes after treating a low blood. sugar GLUCOSE BLOOD 49517060976 Active Maliheh Ziglari WEAVE DEFECT CHARTING CLERK Active LANTUS SOLOSTAR 100 UNIT/ML SUBCUTANEOUS SOLUTION PEN-INJECTOR Take 40 units at 7-8pm daily INSULIN GLARGINE 44565075520 Active Maliheh Ziglari WEAVE DEFECT CHARTING CLERK Active MECLIZINE HCL 25 MG ORAL TABLET 1 daily needed for dizziness 2015 MECLIZINE HCL 92580252370 No Longer Active Maliheh Ziglari WEAVE DEFECT CHARTING CLERK Active BENZONATATE 200 MG ORAL CAPSULE 1 tab, 2-3 times a day BENZONATATE 60156006422 No Longer Active Maliheh Ziglari WEAVE DEFECT CHARTING CLERK Active HALOPERIDOL 0.5 MG ORAL TABLET one tablet three times a day HALOPERIDOL 97048350155 No Longer Active Maliheh Ziglari WEAVE DEFECT CHARTING CLERK Active TRAZODONE HCL 50 MG ORAL TABLET three tablets at bed time TRAZODONE HCL 67705075253 No Longer Active Maliheh Ziglari WEAVE DEFECT CHARTING CLERK Active REVLIMID 25 MG ORAL CAPSULE one capsule daily for 21 days then off for 7 days LENALIDOMIDE 00451537682 No Longer Active Maliheh Ziglari WEAVE DEFECT CHARTING CLERK Active ZITHROMAX Z-EDDIE 250 MG ORAL TABLET 2 today, then 1 daily for 4 days AZITHROMYCIN 61810306376 No Longer Active Augustina Mata APRN Active NOVOLIN R RELION 100 UNIT/ML INJECTION SOLUTION 30- 40 units each meal sliding scale INSULIN REGULAR HUMAN 78632730328 No Longer Active Maliheh Ziglari WEAVE DEFECT CHARTING CLERK Active CALCIUM 500/D 500-200 MG-UNIT ORAL TABLET one tablet daily CALCIUM CARBONATE-VITAMIN D 39566546193 Active Prosper Arenas MD Active HYDROCODONE-ACETAMINOPHEN 5-500 MG ORAL TABLET 1-2 FOUR TIMES A DAY, PRN 2010 HYDROCODONE-ACETAMINOPHEN 85473892317 No Longer Active Prosper Arenas MD Active DOXYCYCLINE HYCLATE 100 MG ORAL CAPSULE take one capsule by mouth twice daily for ten days DOXYCYCLINE HYCLATE 17572258562 No Longer Active Mekhi Dukes MD Active DOXYCYCLINE HYCLATE 100 MG ORAL CAPSULE take one capsule by mouth twice daily for ten days DOXYCYCLINE HYCLATE 100 MG ORAL CAPSULE 3973923 DOXYCYCLINE HYCLATE Inactive HYDROCODONE-ACETAMINOPHEN 5-500 MG ORAL TABLET 1-2 FOUR TIMES A DAY, PRN 2010 HYDROCODONE-ACETAMINOPHEN 5-500 MG ORAL TABLET 179020 HYDROCODONE-ACETAMINOPHEN Inactive NOVOLIN R RELION 100 UNIT/ML INJECTION SOLUTION 30- 40 units each meal sliding scale NOVOLIN R RELION 100 UNIT/ML INJECTION SOLUTION INSULIN REGULAR HUMAN Inactive ZITHROMAX Z-EDDIE 250 MG ORAL TABLET 2 today, then 1 daily for 4 days ZITHROMAX Z-EDDIE 250 MG ORAL TABLET 909773 AZITHROMYCIN Inactive REVLIMID 25 MG ORAL CAPSULE one capsule daily for 21 days then off for 7 days REVLIMID 25 MG ORAL CAPSULE LENALIDOMIDE Inactive TRAZODONE HCL 50 MG ORAL TABLET three tablets at bed time TRAZODONE HCL 50 MG ORAL TABLET 285283 TRAZODONE HCL Inactive HALOPERIDOL 0.5 MG ORAL TABLET one tablet three times a day HALOPERIDOL 0.5 MG ORAL TABLET 778831 HALOPERIDOL Inactive BENZONATATE 200 MG ORAL CAPSULE 1 tab, 2-3 times a day BENZONATATE 200 MG ORAL CAPSULE 346186 BENZONATATE Inactive MECLIZINE HCL 25 MG ORAL TABLET 1 daily needed for dizziness 2015 MECLIZINE HCL 25 MG ORAL TABLET 307898 MECLIZINE HCL Inactive HYDROCHLOROTHIAZIDE 25 MG ORAL TABLET 1 tablet by mouth daily HYDROCHLOROTHIAZIDE 25 MG ORAL TABLET 831599 HYDROCHLOROTHIAZIDE Inactive PREDNISONE 20 MG ORAL TABLET Take 2 daily for 3 days and then 1 daily for 3 days PREDNISONE 20 MG ORAL TABLET 903513 PREDNISONE Inactive LISINOPRIL 5 MG ORAL TABLET 1 daily LISINOPRIL 5 MG ORAL TABLET 183512 LISINOPRIL Inactive METOPROLOL TARTRATE 25 MG ORAL TABLET 1/2 tablet twice a day METOPROLOL TARTRATE 25 MG ORAL TABLET 231841 METOPROLOL TARTRATE Inactive OMEPRAZOLE 20 MG ORAL CAPSULE DELAYED RELEASE 1 qd OMEPRAZOLE 20 MG ORAL CAPSULE DELAYED RELEASE 778832 OMEPRAZOLE Inactive SIMVASTATIN 80 MG ORAL TABLET 1/2 tablet daily SIMVASTATIN 80 MG ORAL TABLET 673027 SIMVASTATIN Inactive ASPIRIN 81 MG ORAL TABLET 1 tablet by mouth daily ASPIRIN 81 MG ORAL TABLET 117439 ASPIRIN Inactive BENZONATATE 200 MG ORAL CAPSULE Take 1 tablet 3 times a day as needed for cough BENZONATATE 200 MG ORAL CAPSULE 748515 BENZONATATE Inactive Immunizations Vaccine Administration Date Value [...] Measured blood pressure, diastolic 80 mm[Hg] BP cahvez blood pressure, systolic 120 mm[Hg] BP sys [...] W/DIFF - Chemistry sodium, serum 137 mmol/L 628-386 1033/08/16 carbon dioxide, venous blood 26.3 mmol/L 21.0-32.0 [...] LABS - Chemistry cholesterol, serum 115 mg/dL 147-211 2207/08/18 triglyceride, serum, fasting 89 mg/dL 30-200 HDL cholesterol, serum 46 mg/dL 32-60 LDL cholesterol, serum 51 mg/dL 0-130 blood glucose 104 mg/dL 65-110 Lab Report: LIPID PANEL- REPOWER LAB - Chemistry cholesterol, serum 156 mg/dL 483-232 3524/02/20 HDL cholesterol, serum 52 mg/dL > OR=40 [...] mg/dL Encounters Code Encounter Date Provider Facility CPT-78328 Level 3 Est. Patient 10:53:32 DOCK SUPERINTENDENT [facility] CPT-37373 Level 3 Est. Patient 17:11:55 DOCK SUPERINTENDENT Ismael Gracia MD [facility] CPT-32262 Level 4 Est. Patient 16:29:19 CDT Mekhi Dukes MD [facility] CPT-36994 Level 3 New Patient 17:05:24 CDT Ismael Gracia MD [facility] CPT-57274 Level 2 Est. Patient 15:43:17 CDT Mekhi Dukes MD [facility] CPT-12931 Level 3 Est. Patient 09:30:37 CDT [facility] CPT-27984 Level 3 Est. Patient 10:00:14 CDT Mekhi Dukes MD [facility] CPT-48903 Level 3 Est. Patient 12:24:09 CDT Moy Garcia [facility] CPT-14711 Level 3 Est. Patient 14:34:57 CDT Prosper Arenas MD [facility] CPT-10415 Level 3 New Patient 15:44:53 DOCK SUPERINTENDENT Mekhi Dukes MD [facility] CPT-32057 Level 3 Est. Patient 14:53:34 DOCK SUPERINTENDENT Prosper Arenas MD [facility] CPT-84811 Level 4 Est. Patient 10:05:41 DOCK SUPERINTENDENT Moy Rodrigokymrex [facility] CPT-11034 Level 3 Est. Patient 11:18:32 [facility] Level 4 Est. Patient 11:05:10 CDT Moy Garcia [facility] CPT-74867 Level 3 Est. Patient 11:08:27 DOCK SUPERINTENDENT Moy Garcia [facility] CPT-68666 Level 4 Est. Patient 10:43:59 CDT Prosper Arenas MD [facility] CPT-32570 Level 3 Est. Patient 10:51:19 CDT Moy Garcia [facility] CPT-09499 Level 3 Est. Patient 10:20:31 CDT Moy Garcia [facility] CPT-59276 Level 3 Est. Patient 17:08:45 CDT Moy Garcia [facility] CPT-37363 Level 2 Est. Patient 13:54:36 CDT Augustina Mata APRN [facility] CPT-91723 Level 3 Est. Patient 12:00:42 CDT Prosper Arenas MD [facility]-29401 Level 3 Est. Patient 09:57:28 DOCK SUPERINTENDENT [facility] CPT-63273 Level 3 Est. Patient 11:41:19 DOCK SUPERINTENDENT Luxshoaib Wallacerex [facility] CPT-85767 Level 4 Est. Patient 17:07:35 DOCK SUPERINTENDENT [facility] CPT-96945 Level 5 Est. Patient 14:33:32 CDT [facility] CPT-58332 Level 3 Est. Patient 12:25:35 CDT Prosper Arenas MD [facility] Procedures Code Procedure Name Date Entry Date Standard Description CPT-59323 Postop F/U Visit 17:20:20 DOCK SUPERINTENDENT CPT-G0439 Subsequent Annual Wellness Exam 08:39:41 DOCK SUPERINTENDENT CPT-000 Give Appropriate Flu Vaccine 10:13:55 DOCK SUPERINTENDENT CPT-000 Give Immunizations Due 10:13:55 DOCK SUPERINTENDENT CPT-75624 HGBA1C - LAB USE ONLY 09:42:47 DOCK SUPERINTENDENT CPT-40470 TPSA - LAB USE ONLY 09:42:46 DOCK SUPERINTENDENT CPT-39745 Venipuncture Draw Fee 09:42:46 DOCK SUPERINTENDENT CPT-25540 Port a cath flush 13:33:18 DOCK SUPERINTENDENT CPT-87103 First Vx - Ix admin for Medicare patients 10:42:57 DOCK SUPERINTENDENT CPT-59821 Fluzone Preservative Free Intramuscular Suspension 10:42 :57 DOCK SUPERINTENDENT CPT-G0438 Initial Annual Wellness Exam 10:13:55 DOCK SUPERINTENDENT CPT-000 Give Appropriate Flu Vaccine 10:44:04 CDT CPT-000 Give Pneumovax 10:44:03 CDT CPT-43970 Port a cath flush 17:04:43 CDT CPT-23379 Prevnar 13 11:19:17 CDT CPT-26265 Fluzone Quadrivalent preservative free (>=3yrs.) 11:19: 17 CDT CPT-51867 Immunization Each Additional Inj 11:19:17 CDT CPT-86932 Immunization Single Admin 11:19:17 CDT CPT-84395 Port a cath flush 13:28:22 CDT CPT-TCMM Transitional Care Mgmt-Moderate 13:40:15 CDT CPT-G0008 Administration of Influenza Virus Vaccine 13:59:20 CDT CPT-56833 Fluzone High-Dose Intramuscular Suspension 13:59:20 CDT CPT-66392 Venipuncture Draw Fee 09:56:19 CDT CPT-OV Office Visit 15:46:10 CDT
--- OUTSIDE RECORDS SUMMARY | 2017-08-25 21:53 | XMS REPORT | Clinical Summary ---
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 without 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 complication, type II [...] type II, uncontrolled 250.02 Active Maliheh Rodrigoglari CYTOTECHNOLOGIST Diabetes mellitus without mention of complication, type [...] with hyperglycemia 250.00 Active 03/21 Maliheh Ziglari CYTOTECHNOLOGIST Diabetes mellitus without mention of complication, type II or unspecified type, not stated as uncontrolled [facility] use of insulin treatment V58.67 Active Luxiheh Rodrigoglari CYTOTECHNOLOGIST Long-term (current) use of insulin Diabetes mellitus, type II with hypoglycemia 250.80 Active 07/22 Maliheh Ziglari CYTOTECHNOLOGIST Diabetes mellitus with other specified manifestations, type II or unspecified type, not stated as uncontrolled 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 Maliheh Ziglari CYTOTECHNOLOGIST Diabetes mellitus with renal manifestations, type II or unspecified type, not stated as uncontrolled Wellness exam V70.0 Active Dee Palmer APRN Routine general medical examination at a health care facility Fitting and adjustment of vascular catheter V58.81 Active 02/06 Dee Palmer APRN Encounter for fitting and adjustment of vascular catheter Unawareness of hypoglycemia in diabetes mellitus, type II 250.80 Active Maliheh Rodrigoglari CYTOTECHNOLOGIST Diabetes mellitus with other specified manifestations, type [...] specified as recurrent) Gastritis Inactive Maliheh Jose CYTOTECHNOLOGIST Unspecified gastritis and gastroduodenitis, without mention of [...] Mekhi Dukes MD Headache ICD-784.0 Inactive Mekhi Dueks MD Inguinal pain, right ICD-789.09 Inactive Mekhi Dukes MD Inguinal hernia ICD-550.90 Inactive Mekhi Dukes MD Gastritis Inactive Janis Gallagher LPN Medication List Medication Instructions Start Date Stop Date Generic Name NDC Status Provider Patient Instruction AZITHROMYCIN 250 MG ORAL TABLET 2 po qd x 1 day, then 1 po qd x 4 days 05/07 AZITHROMYCIN 62021151922 Active Dee Palmer APRN Active GUAIFENESIN DM 400-20 MG ORAL TABLET 1 pill by mouth twice daily, if needed for cough DEXTROMETHORPHAN-GUAIFENESIN 35018411073 Active Dee Palmer APRN Active PREDNISONE 20 MG ORAL TABLET 2 tabs daily for 4 days, 1 tab daily for 4 days, 1/2 tab daily for 4 days PREDNISONE 08379821863 Active Dee Palmer APRN Active ASPIRIN 81 MG ORAL TABLET 1 po qd ASPIRIN 81645577620 Active Dee Palmer APRN Active CALCIUM 500/D 500-200 MG-UNIT ORAL TABLET one tablet daily CALCIUM CARBONATE-VITAMIN D 40299900516 No Longer Active Dee Palmer APRN Active HYDROCODONE-ACETAMINOPHEN 7.5-325 MG ORAL TABLET 1-2 every 4-6 hrs prn 02/25 HYDROCODONE-ACETAMINOPHEN 00022990293 Active Marina Messina BESSY Active ASPIRIN 81 MG ORAL TABLET 1 tablet by mouth daily ASPIRIN 98465670526 No Longer Active Marina King BESSY Active SIMVASTATIN 80 MG ORAL TABLET 1/2 tablet daily SIMVASTATIN 05367914715 No Longer Active Mekhi Dukes MD Active OMEPRAZOLE 20 MG ORAL CAPSULE DELAYED RELEASE 1 qd OMEPRAZOLE 81107883767 No Longer Active Mekhi Dukes MD Active METOPROLOL TARTRATE 25 MG ORAL TABLET 1/2 tablet twice a day METOPROLOL TARTRATE 78051431247 No Longer Active Mekhi Dukes MD Active LISINOPRIL 5 MG ORAL TABLET 1 daily LISINOPRIL 31067513621 No Longer Active Mekhi Dukes MD Active NOVOLOG FLEXPEN 100 UNIT/ML SUBCUTANEOUS SOLUTION PEN-INJECTOR Take 8 units with each meal, add 1u/50 for blood sugars above 150. INSULIN ASPART 54945023933 Active Moy PARISH Active GABAPENTIN 300 MG ORAL CAPSULE 1 tab BID GABAPENTIN 90637863175 Active Tmai Miller RN Active PREDNISONE 20 MG ORAL TABLET Take 2 daily for 3 days and then 1 daily for 3 days PREDNISONE 46378424509 No Longer Active Moy PARISH Active BENZONATATE 200 MG ORAL CAPSULE Take 1 tablet 3 times a day as needed for cough BENZONATATE 95303131372 No Longer Active Prosper Arenas MD Active HYDROCHLOROTHIAZIDE 25 MG ORAL TABLET 1 tablet by mouth daily HYDROCHLOROTHIAZIDE 36948877529 No Longer Active Prosper Arenas MD Active ACCU-CHEK JOANNA PLUS IN VITRO STRIP check blood sugars 5x a day, before each meal and bedtime and 15 minutes after treating a low blood. sugar GLUCOSE BLOOD 06173705694 Active Moy PARISH Active LANTUS SOLOSTAR 100 UNIT/ML SUBCUTANEOUS SOLUTION PEN-INJECTOR Take 40 units at 7-8pm daily INSULIN GLARGINE 57921180576 Active Maliheh Ziglari CYTOTECHNOLOGIST Active MECLIZINE HCL 25 MG ORAL TABLET 1 daily needed for dizziness 2015 MECLIZINE HCL 53559790222 No Longer Active Maliheh Ziglari CYTOTECHNOLOGIST Active BENZONATATE 200 MG ORAL CAPSULE 1 tab, 2-3 times a day BENZONATATE 50860975896 No Longer Active Maliheh Ziglari CYTOTECHNOLOGIST Active HALOPERIDOL 0.5 MG ORAL TABLET one tablet three times a day HALOPERIDOL 93168775589 No Longer Active Maliheh Ziglari CYTOTECHNOLOGIST Active TRAZODONE HCL 50 MG ORAL TABLET three tablets at bed time TRAZODONE HCL 17951480607 No Longer Active [facility] Ziglari CYTOTECHNOLOGIST Active REVLIMID 25 MG ORAL CAPSULE one capsule daily for 21 days then off for 7 days LENALIDOMIDE 00388589464 No Longer Active Maleh Ziglari CYTOTECHNOLOGIST Active ZITHROMAX Z-EDDIE 250 MG ORAL TABLET 2 today, then 1 daily for 4 days AZITHROMYCIN 62074710919 No Longer Active Augustina Mata CONCRETE BLOCK LAYER Active NOVOLIN R RELION 100 UNIT/ML INJECTION SOLUTION 30- 40 units each meal sliding scale INSULIN REGULAR HUMAN 34405166944 No Longer Active Moy Wallaceglari CYTOTECHNOLOGIST Active HYDROCODONE-ACETAMINOPHEN 5-500 MG ORAL TABLET 1-2 FOUR TIMES A DAY, PRN 2010 HYDROCODONE-ACETAMINOPHEN 40386976299 No Longer Active Prosper Arenas MD Active DOXYCYCLINE HYCLATE 100 MG ORAL CAPSULE take one capsule by mouth twice daily for ten days DOXYCYCLINE HYCLATE 27958655434 No Longer Active Mekhi Dukes MD Active DOXYCYCLINE HYCLATE 100 MG ORAL CAPSULE take one capsule by mouth twice daily for ten days DOXYCYCLINE HYCLATE 100 MG ORAL CAPSULE 6032069 DOXYCYCLINE HYCLATE Inactive HYDROCODONE-ACETAMINOPHEN 5-500 MG ORAL TABLET 1-2 FOUR TIMES A DAY, PRN 2010 HYDROCODONE-ACETAMINOPHEN 5-500 MG ORAL TABLET 280929 HYDROCODONE-ACETAMINOPHEN Inactive NOVOLIN R RELION 100 UNIT/ML INJECTION SOLUTION 30- 40 units each meal sliding scale NOVOLIN R RELION 100 UNIT/ML INJECTION SOLUTION INSULIN REGULAR HUMAN Inactive ZITHROMAX Z-EDDIE 250 MG ORAL TABLET 2 today, then 1 daily for 4 days ZITHROMAX Z-EDDIE 250 MG ORAL TABLET 900849 AZITHROMYCIN Inactive REVLIMID 25 MG ORAL CAPSULE one capsule daily for 21 days then off for 7 days REVLIMID 25 MG ORAL CAPSULE LENALIDOMIDE Inactive TRAZODONE HCL 50 MG ORAL TABLET three tablets at bed time TRAZODONE HCL 50 MG ORAL TABLET 174309 TRAZODONE HCL Inactive HALOPERIDOL 0.5 MG ORAL TABLET one tablet three times a day HALOPERIDOL 0.5 MG ORAL TABLET 867682 HALOPERIDOL Inactive BENZONATATE 200 MG ORAL CAPSULE 1 tab, 2-3 times a day BENZONATATE 200 MG ORAL CAPSULE 151245 BENZONATATE Inactive MECLIZINE HCL 25 MG ORAL TABLET 1 daily needed for dizziness 2015 MECLIZINE HCL 25 MG ORAL TABLET 784366 MECLIZINE HCL Inactive HYDROCHLOROTHIAZIDE 25 MG ORAL TABLET 1 tablet by mouth daily HYDROCHLOROTHIAZIDE 25 MG ORAL TABLET 836781 HYDROCHLOROTHIAZIDE Inactive PREDNISONE 20 MG ORAL TABLET Take 2 daily for 3 days and then 1 daily for 3 days PREDNISONE 20 MG ORAL TABLET 339894 PREDNISONE Inactive LISINOPRIL 5 MG ORAL TABLET 1 daily LISINOPRIL 5 MG ORAL TABLET 162687 LISINOPRIL Inactive METOPROLOL TARTRATE 25 MG ORAL TABLET 1/2 tablet twice a day METOPROLOL TARTRATE 25 MG ORAL TABLET 299846 METOPROLOL TARTRATE Inactive OMEPRAZOLE 20 MG ORAL CAPSULE DELAYED RELEASE 1 qd OMEPRAZOLE 20 MG ORAL CAPSULE DELAYED RELEASE 737706 OMEPRAZOLE Inactive SIMVASTATIN 80 MG ORAL TABLET 1/2 tablet daily SIMVASTATIN 80 MG ORAL TABLET 663338 SIMVASTATIN Inactive ASPIRIN 81 MG ORAL TABLET 1 tablet by mouth daily ASPIRIN 81 MG ORAL TABLET 392017 ASPIRIN Inactive CALCIUM 500/D 500-200 MG-UNIT ORAL TABLET one tablet daily CALCIUM 500/D 500-200 MG-UNIT ORAL TABLET CALCIUM CARBONATE-VITAMIN D Inactive BENZONATATE 200 MG ORAL CAPSULE Take 1 tablet 3 times a day as needed for cough BENZONATATE 200 MG ORAL CAPSULE 561645 BENZONATATE Inactive Immunizations Vaccine Administration Date Value [...] W/DIFF - Chemistry sodium, serum 137 mmol/L 724-785 6837/08/16 carbon dioxide, venous blood 26.3 mmol/L 21.0-32.0 [...] LABS - Chemistry cholesterol, serum 115 mg/dL 297-063 5915/08/18 triglyceride, serum, fasting 89 mg/dL 30-200 HDL cholesterol, serum 46 mg/dL 32-60 LDL cholesterol, serum 51 mg/dL 0-130 blood glucose 104 mg/dL 65-110 Lab Report: LIPID PANEL- REPOWER LAB - Chemistry cholesterol, serum 156 mg/dL 941-611 7820/02/20 HDL cholesterol, serum 52 mg/dL > OR=40 [...] mg/dL Encounters Code Encounter Date Provider Facility CPT-54121 Level 3 Est. Patient 14:09:25 [employer]SEM[employer] Ryanmakenna Palmer APRN [facility] CPT-77171 Level 3 Est. 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 Patient 16:29:19 CDT Mekhi Dukes MD [facility] CPT-59793 Level 3 New Patient 17:05:24 CDT Ismael Gracia MD [facility] CPT-39781 Level 2 Est. Patient 15:43:17 CDT Mekhi Dukes MD [facility] CPT-54242 Level 3 Est. Patient 09:30:37 [facility] Level 3 Est. Patient 10:00:14 CDT Mekhi Dukes MD [facility] CPT-14703 Level 3 Est. Patient 12:24:09 CDT [facility]-09450 Level 3 Est. 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 Patient 10:05:41 ASSEMBLER INSTALLER STRUCTURES Moy Garcia [facility] CPT-31657 Level 3 Est. Patient 11:18:32 CDT [facility] CPT-60286 Level 4 Est. Patient 11:05:10 CDT [facility] CPT-80642 Level 3 Est. Patient 11:08:27 ASSEMBLER INSTALLER STRUCTURES Luxshoaib Garcia [facility] CPT-45087 Level 4 Est. Patient 10:43:59 CDT Prosper Arenas MD [facility] CPT-51798 Level 3 Est. Patient 10:51:19 CDT [facility] Jose [facility] CPT-36267 Level 3 Est. Patient 10:20:31 CDT [facility]163 Level 3 Est. Patient 17:08:45 CDT [facility] CPT-26660 Level 2 Est. Patient 13:54:36 CDT Augustina Mata APRN [facility] CPT-50577 Level 3 Est. Patient 12:00:42 CDT Prosper Arenas MD [facility] CPT-17933 Level 3 Est. Patient 09:57:28 ASSEMBLER INSTALLER STRUCTURES [facility] CPT-88802 Level 3 Est. Patient 11:41:19 ASSEMBLER INSTALLER STRUCTURES [facility] CPT-89977 Level 4 Est. Patient 17:07:35 ASSEMBLER INSTALLER STRUCTURES [facility] [place] CPT-73647 Level 5 Est. Patient 14:33:32 CDT [facility] [place] CPT-03795 Level 3 Est. Patient 12:25:35 CDT Prosper Arenas MD [facility] Procedures Code Procedure Name Date Entry Date Standard Description CPT-51901 Chest, 2 views 14:17:20 [employer] CPT-93448 Postop F/U Visit 14:44:45 [employer] CPT-94775 Postop F/U Visit 17:20:20 AS[employer]ER [employer] CPT-G0439 Subsequent Annual Wellness Exam 08:39:41 [employer]SEM[employer] INST[employer]UCT[employer] CPT-000 Give Appropriate Flu Vaccine 10:13:55 ASSEM[employer]ER IN[employer]ER [employer]UCTURES CPT-000 Give Immunizations Due 10:13:55 ASSEMBLER INST[employer] CPT-27874 HGBA1C - LAB USE ONLY 09:42:47 ASSEMBLER IN[employer]ER [employer]URES CPT-87966 TPSA - LAB USE ONLY 09:42:46 ASSEMBLER [employer] CPT-53121 Venipuncture Draw Fee 09:42:46 ASSEMBLER IN[employer]ER [employer]URES CPT-62033 Port a cath flush 13:33:18 ASSEMBLER INST[employer]ER [employer]UCTURES CPT-25096 First Vx - Ix admin for Medicare patients 10:42:57 ASSEMBLER INST[employer]ER [employer]UCTURES CPT-56724 Fluzone Preservative Free Intramuscular Suspension 10:42 :57 ASSEMBLER INST[employer]ER [employer]UCTURES CPT-G0438 Initial Annual Wellness Exam 10:13:55 ASSEMBLER INST[employer]ER [employer]UCTURES CPT-000 Give Appropriate Flu Vaccine 10:44:04 CDT CPT-000 Give Pneumovax 10:44:03 CDT CPT-88838 Port a cath flush 17:04:43 CDT CPT-66333 Prevnar 13 11:19:17 CDT CPT-04657 Fluzone Quadrivalent preservative free (>=3yrs.) 11:19: 17 CDT CPT-73151 Immunization Each Additional Inj 11:19:17 CDT CPT-75644 Immunization Single Admin 11:19:17 CDT CPT-18814 Port a cath flush 13:28:22 CDT CPT-TCMM Transitional Care Mgmt-Moderate 13:40:15 CDT CPT-G0008 Administration of Influenza Virus Vaccine 13:59:20 CDT CPT-31885 Fluzone High-Dose Intramuscular Suspension 13:59:20 CDT CPT-09812 Venipuncture Draw Fee 09:56:19 CDT CPT-OV Office Visit 15:46:10 CDT
--- OUTSIDE RECORDS SUMMARY | 2017-08-25 21:54 | XMS REPORT | Clinical Summary ---
Author Author Admin, IWONA Organization [employer] Address Unknown Phone Unavailable Allergies, Adverse Reactions, Alerts Allergy Name Reaction Description Start Date Severity Status Provider ERYTHROMYCIN Stomach cramps Moderate Active Prosper Arenas MD CODEINE Critical Active Maliheh Ziglari RELATIONS MGR DARVOCET Critical Active Maliheh Ziglari RELATIONS MGR LEVAQUIN Critical Active Maliheh Ziglari RELATIONS MGR Conditions or Problems Problem Name Problem Code Onset Date Status Entry Date Provider Comment Standard Description Annotate Diabetes, Type 2 250.00 Resolved Tami Miller public health advisor mellitus without mention of complication, type II [...] type II, uncontrolled 250.02 Active Maliheh Rodrigoglari RELATIONS MGR Diabetes mellitus without mention of complication, type [...] with hyperglycemia 250.00 Active 03/21 Maliheh Ziglari RELATIONS MGR Diabetes mellitus without mention of complication, type II or unspecified type, not stated as uncontrolled long-term use of insulin treatment V58.67 Active Luxiheh Rodrigoglari RELATIONS MGR Long-term (current) use of insulin Diabetes mellitus, type II with hypoglycemia 250.80 Active 07/22 Maliheh Ziglari RELATIONS MGR Diabetes mellitus with other specified manifestations, type II or unspecified type, not stated as uncontrolled 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 Maliheh Ziglari RELATIONS MGR Diabetes mellitus with renal manifestations, type II or unspecified type, not stated as uncontrolled Wellness exam V70.0 Active Dee Palmer APRN Routine general medical examination at a health care facility Fitting and adjustment of vascular catheter V58.81 Active 02/06 Dee Palmer APRN Encounter for fitting and adjustment of vascular catheter Unawareness of hypoglycemia in diabetes mellitus, type II 250.80 Active Maliheh Rodrigoglari RELATIONS MGR Diabetes mellitus with other specified manifestations, type [...] specified as recurrent) Gastritis Inactive Maliheh Ziglari RELATIONS MGR Unspecified gastritis and gastroduodenitis, without mention of [...] 1-2 every 4-6 hrs prn 02/25 HYDROCODONE-ACETAMINOPHEN 05541263995 Active Marina Messina APRN Active ASPIRIN 81 MG ORAL TABLET 1 tablet by mouth daily ASPIRIN 10400625566 No Longer Active Marina Messina APRN Active SIMVASTATIN 80 MG ORAL TABLET 1/2 tablet daily SIMVASTATIN 03593084084 No Longer Active Mekhi Dukes MD Active OMEPRAZOLE 20 MG ORAL CAPSULE DELAYED RELEASE 1 qd OMEPRAZOLE 54870150642 No Longer Active Mekhi Dukes MD Active METOPROLOL TARTRATE 25 MG ORAL TABLET 1/2 tablet twice a day METOPROLOL TARTRATE 64112261510 No Longer Active Mekhi Dukes MD Active LISINOPRIL 5 MG ORAL TABLET 1 daily LISINOPRIL 19859380240 No Longer Active Mekhi Dukes MD Active NOVOLOG FLEXPEN 100 UNIT/ML SUBCUTANEOUS SOLUTION PEN-INJECTOR Take 8 units with each meal, add 1u/50 for blood sugars above 150. INSULIN ASPART 24552047866 Active Maliheh Ziglari RELATIONS MGR Active GABAPENTIN 300 MG ORAL CAPSULE 1 tab BID GABAPENTIN 32276316405 Active Tami Miller RN Active PREDNISONE 20 MG ORAL TABLET Take 2 daily for 3 days and then 1 daily for 3 days PREDNISONE 75863735728 No Longer Active Maliheh Ziglari RELATIONS MGR Active BENZONATATE 200 MG ORAL CAPSULE Take 1 tablet 3 times a day as needed for cough BENZONATATE 67695424178 No Longer Active Prosper Arenas MD Active HYDROCHLOROTHIAZIDE 25 MG ORAL TABLET 1 tablet by mouth daily HYDROCHLOROTHIAZIDE 38164829703 No Longer Active Prosper Arenas MD Active ACCU-CHEK JOANNA PLUS IN VITRO STRIP check blood sugars 5x a day, before each meal and bedtime and 15 minutes after treating a low blood. sugar GLUCOSE BLOOD 11731488906 Active Maleh Ziglari RELATIONS MGR Active LANTUS SOLOSTAR 100 UNIT/ML SUBCUTANEOUS SOLUTION PEN-INJECTOR Take 40 units at 7-8pm daily INSULIN GLARGINE 49188640296 Active Maliheh Ziglari RELATIONS MGR Active MECLIZINE HCL 25 MG ORAL TABLET 1 daily needed for dizziness 2015 MECLIZINE HCL 94990825756 No Longer Active Maleh Ziglari RELATIONS MGR Active BENZONATATE 200 MG ORAL CAPSULE 1 tab, 2-3 times a day BENZONATATE 52148268869 No Longer Active Maliheh Ziglari RELATIONS MGR Active HALOPERIDOL 0.5 MG ORAL TABLET one tablet three times a day HALOPERIDOL 54510191076 No Longer Active Maliheh Ziglari RELATIONS MGR Active TRAZODONE HCL 50 MG ORAL TABLET three tablets at bed time TRAZODONE HCL 13540298403 No Longer Active Maliheh Ziglari RELATIONS MGR Active REVLIMID 25 MG ORAL CAPSULE one capsule daily for 21 days then off for 7 days LENALIDOMIDE 37943184856 No Longer Active Maliheh Ziglari RELATIONS MGR Active ZITHROMAX Z-EDDIE 250 MG ORAL TABLET 2 today, then 1 daily for 4 days AZITHROMYCIN 46554775456 No Longer Active Augustina Mata TRAIN GATEMAN Active NOVOLIN R RELION 100 UNIT/ML INJECTION SOLUTION 30- 40 units each meal sliding scale INSULIN REGULAR HUMAN 68577739634 No Longer Active Moy DURANTP Active CALCIUM 500/D 500-200 MG-UNIT ORAL TABLET one tablet daily CALCIUM CARBONATE-VITAMIN D 97770425679 Active Prosper Arenas MD Active HYDROCODONE-ACETAMINOPHEN 5-500 MG ORAL TABLET 1-2 FOUR TIMES A DAY, PRN 2010 HYDROCODONE-ACETAMINOPHEN 44750547823 No Longer Active Prosper Arenas MD Active DOXYCYCLINE HYCLATE 100 MG ORAL CAPSULE take one capsule by mouth twice daily for ten days DOXYCYCLINE HYCLATE 39936589007 No Longer Active Mekhi Dukes MD Active DOXYCYCLINE HYCLATE 100 MG ORAL CAPSULE take one capsule by mouth twice daily for ten days DOXYCYCLINE HYCLATE 100 MG ORAL CAPSULE 5097933 DOXYCYCLINE HYCLATE Inactive HYDROCODONE-ACETAMINOPHEN 5-500 MG ORAL TABLET 1-2 FOUR TIMES A DAY, PRN 2010 HYDROCODONE-ACETAMINOPHEN 5-500 MG ORAL TABLET 766694 HYDROCODONE-ACETAMINOPHEN Inactive NOVOLIN R RELION 100 UNIT/ML INJECTION SOLUTION 30- 40 units each meal sliding scale NOVOLIN R RELION 100 UNIT/ML INJECTION SOLUTION INSULIN REGULAR HUMAN Inactive ZITHROMAX Z-EDDIE 250 MG ORAL TABLET 2 today, then 1 daily for 4 days ZITHROMAX Z-EDDIE 250 MG ORAL TABLET 336756 AZITHROMYCIN Inactive REVLIMID 25 MG ORAL CAPSULE one capsule daily for 21 days then off for 7 days REVLIMID 25 MG ORAL CAPSULE LENALIDOMIDE Inactive TRAZODONE HCL 50 MG ORAL TABLET three tablets at bed time TRAZODONE HCL 50 MG ORAL TABLET 945270 TRAZODONE HCL Inactive HALOPERIDOL 0.5 MG ORAL TABLET one tablet three times a day HALOPERIDOL 0.5 MG ORAL TABLET 589986 HALOPERIDOL Inactive BENZONATATE 200 MG ORAL CAPSULE 1 tab, 2-3 times a day BENZONATATE 200 MG ORAL CAPSULE 687168 BENZONATATE Inactive MECLIZINE HCL 25 MG ORAL TABLET 1 daily needed for dizziness 2015 MECLIZINE HCL 25 MG ORAL TABLET 673252 MECLIZINE HCL Inactive HYDROCHLOROTHIAZIDE 25 MG ORAL TABLET 1 tablet by mouth daily HYDROCHLOROTHIAZIDE 25 MG ORAL TABLET 118789 HYDROCHLOROTHIAZIDE Inactive PREDNISONE 20 MG ORAL TABLET Take 2 daily for 3 days and then 1 daily for 3 days PREDNISONE 20 MG ORAL TABLET 538615 PREDNISONE Inactive LISINOPRIL 5 MG ORAL TABLET 1 daily LISINOPRIL 5 MG ORAL TABLET 979874 LISINOPRIL Inactive METOPROLOL TARTRATE 25 MG ORAL TABLET 1/2 tablet twice a day METOPROLOL TARTRATE 25 MG ORAL TABLET 705477 METOPROLOL TARTRATE Inactive OMEPRAZOLE 20 MG ORAL CAPSULE DELAYED RELEASE 1 qd OMEPRAZOLE 20 MG ORAL CAPSULE DELAYED RELEASE 800436 OMEPRAZOLE Inactive SIMVASTATIN 80 MG ORAL TABLET 1/2 tablet daily SIMVASTATIN 80 MG ORAL TABLET 105243 SIMVASTATIN Inactive ASPIRIN 81 MG ORAL TABLET 1 tablet by mouth daily ASPIRIN 81 MG ORAL TABLET 535606 ASPIRIN Inactive BENZONATATE 200 MG ORAL CAPSULE Take 1 tablet 3 times a day as needed for cough BENZONATATE 200 MG ORAL CAPSULE 071895 BENZONATATE Inactive Immunizations Vaccine Administration Date Value [...] Signs Date Name Value Unit Range Description pulse rate E&M 99 /min Heart rate [...] W/DIFF - Chemistry sodium, serum 137 mmol/L 165-134 3258/08/16 carbon dioxide, venous blood 26.3 mmol/L 21.0-32.0 [...] 4.3-6.0 Lab Report: Lipid Panel, Glucose- [facility] - Chemistry cholesterol, serum 115 mg/dL 508-237 3559/08/18 triglyceride, serum, fasting 89 mg/dL 30-200 HDL cholesterol, serum 46 mg/dL 32-60 LDL cholesterol, serum 51 mg/dL 0-130 blood glucose 104 mg/dL 65-110 Lab Report: LIPID PANEL- [facility] - Chemistry cholesterol, serum 156 mg/dL 262-907 1191/02/20 HDL cholesterol, serum 52 mg/dL > OR=40 [...] mg/dL Encounters Code Encounter Date Provider Facility CPT-15369 Level 3 Est. Patient 10:53:32 [facility] Level 3 Est. Patient 17:11:55 [facility] Ismael Gracia MD [facility] CPT-56352 Level 4 Est. Patient 16:29:19 CDT Mekhi Dukes MD [facility] CPT-68879 Level 3 New Patient 17:05:24 CDT Ismael Gracia MD [facility] CPT-27772 Level 2 Est. Patient 15:43:17 CDT Mekhi Dukes MD [facility] CPT-31822 Level 3 Est. Patient 09:30:37 [facility] CPT-68557 Level 3 Est. Patient 10:00:14 CDT Mekhi Dukes MD [facility] CPT-94334 Level 3 Est. Patient 12:24:09 [facility] CPT-03426 Level 3 Est. Patient 14:34:57 CDT Prosper Arenas MD [facility] CPT-50998 Level 3 New Patient 15:44:53 [facility] Mekhi Dukes MD [facility] CPT-13197 Level 3 Est. Patient 14:53:34 [facility] Prosper Arenas MD [facility] CPT-77374 Level 4 Est. Patient 10:05:41 [facility] Moy Garcia [facility] CPT-04510 Level 3 Est. Patient 11:18:32 CDT Moy Garcia [facility] CPT-96233 Level 4 Est. Patient 11:05:10 CDT Moy Garcia [facility] CPT-27005 Level 3 Est. Patient 11:08:27 [facility] Moy Garcia [facility] CPT-35841 Level 4 Est. Patient 10:43:59 CDT Prosper Arenas MD [facility]-62370 Level 3 Est. Patient 10:51:19 CDT Moy Garcia [facility] CPT-32283 Level 3 Est. Patient 10:20:31 CDT Moy Garcia [facility] CPT-13876 Level 3 Est. Patient 17:08:45 CDT Moy Garcia [facility] CPT-74337 Level 2 Est. Patient 13:54:36 CDT Augustina Juan Carlostalagunnar [facility] CPT-36920 Level 3 Est. Patient 12:00:42 CDT Prosper Arenas MD [facility] CPT-72993 Level 3 Est. Patient 09:57:28 [facility] Moy Garcia [facility] CPT-33345 Level 3 Est. Patient 11:41:19 [facility] Moy Garcia [facility] CPT-64688 Level 4 Est. Patient 17:07:35 [facility] Moy Garcia [facility] CPT-65116 Level 5 Est. Patient 14:33:32 CDT Moy Garcia [facility] CPT-07396 Level 3 Est. Patient 12:25:35 CDT Prosper Arenas MD [facility] Procedures Code Procedure Name Date Entry Date Standard Description CPT-37964 Postop F/U Visit 14:44:45 [facility] CPT-07819 Postop F/U Visit 17:20:20 [facility] CPT-G0439 Subsequent Annual Wellness Exam 08:39:41 [facility] CPT-000 Give Appropriate Flu Vaccine 10:13:55 [facility] CPT-000 Give Immunizations Due 10:13:55 [facility] CPT-67227 HGBA1C - LAB USE ONLY 09:42:47 [facility] CPT-39945 TPSA - LAB USE ONLY 09:42:46 [facility] CPT-10672 Venipuncture Draw Fee 09:42:46 [facility] CPT-07972 Port a cath flush 13:33:18 [facility] CPT-93366 First Vx - Ix admin for Medicare patients 10:42:57 [facility] CPT-61670 Fluzone Preservative Free Intramuscular Suspension 10:42 :57 [facility] CPT-G0438 Initial Annual Wellness Exam 10:13:55 [facility] CPT-000 Give Appropriate Flu Vaccine 10:44:04 CDT CPT-000 Give Pneumovax 10:44:03 CDT CPT-96737 Port a cath flush 17:04:43 CDT CPT-10627 Prevnar 13 11:19:17 CDT CPT-88355 Fluzone Quadrivalent preservative free (>=3yrs.) 11:19: 17 CDT CPT-52404 Immunization Each Additional Inj 11:19:17 CDT CPT-24570 Immunization Single Admin 11:19:17 CDT CPT-90129 Port a cath flush 13:28:22 CDT CPT-TCMM Transitional Care Mgmt-Moderate 13:40:15 CDT CPT-G0008 Administration of Influenza Virus Vaccine 13:59:20 CDT CPT-28106 Fluzone High-Dose Intramuscular Suspension 13:59:20 CDT CPT-06424 Venipuncture Draw Fee 09:56:19 CDT CPT-OV Office Visit 15:46:10 CDT
--- OUTSIDE RECORDS SUMMARY | 2017-08-25 21:55 | XMS REPORT | Clinical Summary ---
Author Author Admin, IWONA Organization [employer] Address Unknown Phone Unavailable Allergies, Adverse Reactions, Alerts Allergy Name Reaction Description Start Date Severity Status Provider ERYTHROMYCIN Stomach cramps Moderate Active Prosper Arenas MD CODEINE Critical Active Maliheh Ziglari DATASTAGE DEVELOPER DARVOCET Critical Active Maliheh Ziglari DATASTAGE DEVELOPER LEVAQUIN Critical Active Maliheh Ziglari DATASTAGE DEVELOPER Conditions or Problems Problem Name Problem [...] type II, uncontrolled 250.02 Active Maliheh Ziglari DATASTAGE DEVELOPER Diabetes mellitus without mention of complication, [...] with hyperglycemia 250.00 Active 03/21 Maliheh Ziglari DATASTAGE DEVELOPER Diabetes mellitus without mention of complication, type II or unspecified type, not stated as uncontrolled retirement use of insulin treatment V58.67 Active Maliheh Ziglari DATASTAGE DEVELOPER Long-term (current) use of insulin Diabetes mellitus, type II with hypoglycemia 250.80 Active 07/22 Maliheh Ziglari DATASTAGE DEVELOPER Diabetes mellitus with other specified manifestations, type II or unspecified type, not stated as uncontrolled 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 Maliheh Ziglari DATASTAGE DEVELOPER Diabetes mellitus with renal manifestations, type II or unspecified type, not stated as uncontrolled Wellness exam V70.0 Active Dee Palmer APRN Routine general medical examination at a health care facility Fitting and adjustment of vascular catheter V58.81 Active 02/06 Dee Palmer APRN Encounter for fitting and adjustment of vascular catheter Unawareness of hypoglycemia in diabetes mellitus, type II 250.80 Active Maliheh Ziglari DATASTAGE DEVELOPER Diabetes mellitus with other specified manifestations, type II or unspecified type, not stated as uncontrolled Groin pain, right 789.09 Active Prosper Arenas MD Abdominal pain, other specified site; multiple sites Syncope and collapse ICD-780.2 Inactive Mekhi Dukes MD Chest pain, atypical ICD-786.59 Inactive Mekhi Dukes MD Bronchitis ICD-490 Inactive Mekhi Dukes MD Cough ICD-786.2 Inactive Mekhi Dukes MD Vertigo ICD-780.4 Inactive Mekhi Dukes MD Abdominal pain, right upper quadrant ICD-789.01 Inactive Mekhi Dukes MD Medication List Medication Instructions Start Date Stop Date Generic Name NDC Status Provider Patient Instruction ACCU-CHEK JOANNA PLUS STRP check blood sugars 5x a day, before each meal and bedtime and 15 minutes after treating a low blood. sugar GLUCOSE BLOOD 46317776858 Active Maliheh Ziglari DATASTAGE DEVELOPER Active NOVOLOG FLEXPEN 100 UNIT/ML SOPN Take 25 units with each meal, add 1u/50 for blood sugars above 150. INSULIN ASPART 68212869549 Active Maliheh Ziglari DATASTAGE DEVELOPER Active LANTUS SOLOSTAR 100 UNIT/ML SOLN Take 40 units at 7-8pm daily INSULIN GLARGINE 59609221249 Active Maliheh Ziglari DATASTAGE DEVELOPER Active MECLIZINE HCL 25 MG TABS 1 daily needed for dizziness MECLIZINE HCL 19464953778 No Longer Active Maliheh Ziglari DATASTAGE DEVELOPER Active BENZONATATE 200 MG CAPS 1 tab, 2-3 times a day BENZONATATE 97501017861 No Longer Active Maliheh Ziglari DATASTAGE DEVELOPER Active HALOPERIDOL 0.5 MG TABS one tablet three times a day HALOPERIDOL 47310507868 No Longer Active Maliheh Ziglari DATASTAGE DEVELOPER Active TRAZODONE HCL 50 MG TAB three tablets at bed time TRAZODONE HCL 71050605258 No Longer Active Moy Wallacesania DATASTAGE DEVELOPER Active REVLIMID 25 MG CAPS one capsule daily for 21 days then off for 7 days 2014 LENALIDOMIDE 47601334476 No Longer Active Moy Ziglari DATASTAGE DEVELOPER Active ZITHROMAX Z-EDDIE 250 MG TABS 2 today, then 1 daily for 4 days 2014 AZITHROMYCIN 73628492691 No Longer Active Augustina Mata PROGRAM SUPERVISOR Active NOVOLIN R RELION 100 UNIT/ML INJ SOLN 30- 40 units each meal sliding scale INSULIN REGULAR HUMAN 70493131871 No Longer Active Moy Wallacekymari DATASTAGE DEVELOPER Active LISINOPRIL 5 MG TABS 1 daily LISINOPRIL 09704971571 Active Prosper Arenas MD Active CALCIUM 500/D 500-200 MG-UNIT TABS one tablet daily CALCIUM CARBONATE- VITAMIN D 18329136871 Active Prosper Arenas MD Active HYDROCHLOROTHIAZIDE 25 MG TABS 1 tablet by mouth daily HYDROCHLOROTHIAZIDE 56062296051 Active Prosper Arenas MD Active HYDROCODONE-ACETAMINOPHEN 5-500 MG TABS 1-2 FOUR TIMES A DAY, PRN HYDROCODONE-ACETAMINOPHEN 55570805910 No Longer Active Prosper Arenas MD Active SIMVASTATIN 80 MG TABS 1/2 tablet daily SIMVASTATIN 38465307889 Active Prosper Arenas MD Active METOPROLOL TARTRATE 25 MG TABS 1/2 tablet twice a day METOPROLOL TARTRATE 63612283249 Active Prosper Arenas MD Active ASPIRIN 81 MG TAB 1 tablet by mouth daily ASPIRIN 26608269572 Active Prosper Arenas MD Active OMEPRAZOLE 20 MG CPDR 1 qd OMEPRAZOLE 02929962756 Active DARCIE Miller Active DOXYCYCLINE HYCLATE 100 MG CAPS take one capsule by mouth twice daily for ten days DOXYCYCLINE HYCLATE 10024689226 No Longer Active Mekhi Dukes MD Active DOXYCYCLINE HYCLATE 100 MG CAPS take one capsule by mouth twice daily for ten days DOXYCYCLINE HYCLATE 100 MG CAPS 5219050 DOXYCYCLINE HYCLATE Inactive HYDROCODONE-ACETAMINOPHEN 5-500 MG TABS [...] days 2014 ZITHROMAX Z-EDDIE 250 MG TABS 1244554 AZITHROMYCIN Inactive REVLIMID 25 MG CAPS one capsule daily for 21 days then off for 7 days 2014 REVLIMID 25 MG CAPS LENALIDOMIDE Inactive TRAZODONE HCL 50 MG TAB three tablets at bed time TRAZODONE HCL 50 MG TAB 418890 TRAZODONE HCL Inactive HALOPERIDOL 0.5 MG TABS one tablet three times a day HALOPERIDOL 0.5 MG TABS 240236 HALOPERIDOL Inactive BENZONATATE 200 MG CAPS 1 tab, 2-3 times a day BENZONATATE 200 MG CAPS 317449 BENZONATATE Inactive MECLIZINE HCL 25 MG TABS 1 daily needed for dizziness MECLIZINE HCL 25 MG TABS 922412 MECLIZINE HCL Inactive Immunizations Vaccine Administration Date [...] mg/dL Encounters Code Encounter Date Provider Facility CPT-73934 Level 3 New Patient 15:44:53 WALNUT DEHYDRATOR OPERATOR Mekhi Dukes MD [facility] CPT-36851 Level 3 Est. Patient 14:53:34 WALNUT DEHYDRATOR OPERATOR Prosper Arenas MD [facility] CPT-68925 Level 4 Est. Patient 10:05:41 WALNUT DEHYDRATOR OPERATOR [facility]23889 Level 3 Est. Patient 11:18:32 CDT [facility] CPT-78078 Level 4 Est. Patient 11:05:10 CDT [facility] CPT-49138 Level 3 Est. Patient 11:08:27 WALNUT DEHYDRATOR OPERATOR [facility] CPT-08879 Level 4 Est. Patient 10:43:59 CDT Prosper Arenas MD [facility] CPT-34394 Level 3 Est. Patient 10:51:[address] [facility] CPT-67867 Level 3 Est. Patient 10:20:[address] [facility] CPT-23168 Level 3 Est. Patient 17:08:45 [facility]-34232 Level 2 Est. Patient 13:54:36 CDT Augustina Juan Carlosann BESSY [facility] CPT-99298 Level 3 Est. Patient 12:00:42 CDT Prosper Arenas MD [facility] CPT-79200 Level 3 Est. Patient 09:57:28 WALNUT DEHYDRATOR OPER[facility] CPT-45099 Level 3 Est. Patient 11:41:19 WALNUT DEHYDRATOR OPERATOR [facility] CPT-01211 Level 4 Est. Patient 17:07:35 WALNUT DEHYDRATOR OPERATOR [facility] CPT-98029 Level 5 Est. Patient 14:33:32 CDT [facility] CPT-06408 Level 3 Est. Patient 12:25:35 CDT Prosper Arenas MD [facility] Procedures Code Procedure Name Date Entry Date Standard Description CPT-000 Give Appropriate Flu Vaccine 10:13:55 WALNUT DEHYDRATOR OPERATOR CPT-000 Give Immunizations Due 10:13:55 WALNUT DEHYDRATOR OPERATOR CPT-15419 HGBA1C - LAB USE ONLY 09:42:47 WALNUT DEHYDRATOR OPERATOR CPT-80466 TPSA - LAB USE ONLY 09:42:46 WALNUT DEHYDRATOR OPERATOR CPT-95616 Venipuncture Draw Fee 09:42:46 WALNUT DEHYDRATOR OPERATOR CPT-53022 Port a cath flush 13:33:18 WALNUT DEHYDRATOR OPERATOR CPT-91970 First Vx - Ix admin for Medicare patients 10:42:57 WALNUT DEHYDRATOR OPERATOR CPT-67352 Fluzone Preservative Free Intramuscular Suspension 10:42 :57 WALNUT DEHYDRATOR OPERATOR CPT-G0438 Initial Annual Wellness Exam 10:13:55 WALNUT DEHYDRATOR OPERATOR CPT-000 Give Appropriate Flu Vaccine 10:44:04 CDT CPT-000 Give Pneumovax 10:44:03 CDT CPT-70740 Port a cath flush 17:04:43 CDT CPT-29905 Prevnar 13 11:19:17 CDT CPT-56091 Fluzone Quadrivalent preservative free (>=3yrs.) 11:19: 17 CDT CPT-86385 Immunization Each Additional Inj 11:19:17 CDT CPT-57568 Immunization Single Admin 11:19:17 CDT CPT-06716 Port a cath flush 13:28:22 CDT CPT-TCMM Transitional Care Mgmt-Moderate 13:40:15 CDT CPT-G0008 Administration of Influenza Virus Vaccine 13:59:20 CDT CPT-76052 Fluzone High-Dose Intramuscular Suspension 13:59:20 CDT CPT-25459 Venipuncture Draw Fee 09:56:19 CDT CPT-OV Office Visit 15:46:10 CDT
--- OUTSIDE RECORDS SUMMARY | 2017-08-25 21:55 | XMS REPORT | Clinical Summary ---
Author Author Admin, IWONA Organization [employer] Address Unknown Phone Unavailable Allergies, Adverse Reactions, Alerts Allergy Name Reaction Description Start Date Severity Status Provider ERYTHROMYCIN Stomach cramps Moderate Active Prosper Arenas MD CODEINE Critical Active Maliheh Ziglari DEVELOPING MACHINE OPERATOR DARVOCET Critical Active Maliheh Ziglari DEVELOPING MACHINE OPERATOR LEVAQUIN Critical Active Maliheh Ziglari DEVELOPING MACHINE OPERATOR Conditions or Problems Problem Name Problem Code Onset Date Status Entry Date Provider Comment Standard Description Annotate Diabetes, Type 2 250.00 Resolved 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 mellitus without 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 complication, type II [...] type II, uncontrolled 250.02 Active Maliheh Rodrigoglari DEVELOPING MACHINE OPERATOR Diabetes mellitus without mention of complication, [...] with hyperglycemia 250.00 Active 03/21 Maliheh Ziglari DEVELOPING MACHINE OPERATOR Diabetes mellitus without mention of complication, type II or unspecified type, not stated as uncontrolled nursing home use of insulin treatment V58.67 Active Luxiheh Rodrigoglari DEVELOPING MACHINE OPERATOR Long-term (current) use of insulin Diabetes mellitus, type II with hypoglycemia 250.80 Active 07/22 Maliheh Ziglari DEVELOPING MACHINE OPERATOR Diabetes mellitus with other specified manifestations, type II or unspecified type, not stated as uncontrolled 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 Maliheh Ziglari DEVELOPING MACHINE OPERATOR Diabetes mellitus with renal manifestations, type II or unspecified type, not stated as uncontrolled Wellness exam V70.0 Active Dee Palmer APRN Routine general medical examination at a health care facility Fitting and adjustment of vascular catheter V58.81 Active 02/06 Dee Palmer APRN Encounter for fitting and adjustment of vascular catheter Unawareness of hypoglycemia in diabetes mellitus, type II 250.80 Active Maliheh Ziglari DEVELOPING MACHINE OPERATOR Diabetes mellitus with other specified manifestations, [...] obstruction or gangrene (not specified as recurrent) Abdominal pain, right upper quadrant ICD-789.01 Inactive [...] MG ORAL TABLET 1/2 tablet daily SIMVASTATIN 16233571246 No Longer Active Mekhi Dukes MD Active OMEPRAZOLE 20 MG ORAL CAPSULE DELAYED RELEASE 1 qd OMEPRAZOLE 08769468406 No Longer Active Mekhi Dukes MD Active METOPROLOL TARTRATE 25 MG ORAL TABLET 1/2 tablet twice a day METOPROLOL TARTRATE 39491109121 No Longer Active Mekhi Dukes MD Active LISINOPRIL 5 MG ORAL TABLET 1 daily LISINOPRIL 10145683319 No Longer Active Mekhi Dukes MD Active NOVOLOG FLEXPEN 100 UNIT/ML SUBCUTANEOUS SOLUTION PEN-INJECTOR Take 8 units with each meal, add 1u/50 for blood sugars above 150. INSULIN ASPART 30612605370 Active Moy PARISH Active GABAPENTIN 300 MG ORAL CAPSULE 1 tab BID GABAPENTIN 88168836699 Active Tami Miller RN Active PREDNISONE 20 MG ORAL TABLET Take 2 daily for 3 days and then 1 daily for 3 days PREDNISONE 68689571762 No Longer Active Moy PARISH Active BENZONATATE 200 MG ORAL CAPSULE Take 1 tablet 3 times a day as needed for cough BENZONATATE 34805605043 No Longer Active Prosper Arenas MD Active HYDROCHLOROTHIAZIDE 25 MG ORAL TABLET 1 tablet by mouth daily HYDROCHLOROTHIAZIDE 55521237261 No Longer Active Prosper Arenas MD Active ACCU-CHEK JOANNA PLUS IN VITRO STRIP check blood sugars 5x a day, before each meal and bedtime and 15 minutes after treating a low blood. sugar GLUCOSE BLOOD 40132738701 Active Malpapo Wallaceglrex PARISH Active LANTUS SOLOSTAR 100 UNIT/ML SUBCUTANEOUS SOLUTION PEN-INJECTOR Take 40 units at 7-8pm daily INSULIN GLARGINE 24386870646 Active Moy Ziglari DEVELOPING MACHINE OPERATOR Active MECLIZINE HCL 25 MG ORAL TABLET 1 daily needed for dizziness 2015 MECLIZINE HCL 90514848438 No Longer Active Maleh Ziglari DEVELOPING MACHINE OPERATOR Active BENZONATATE 200 MG ORAL CAPSULE 1 tab, 2-3 times a day BENZONATATE 63688431979 No Longer Active [facility] Zigl[facility] DEVELOPING MACHINE OPERATOR Active HALOPERIDOL 0.5 MG ORAL TABLET one tablet three times a day HALOPERIDOL 35934364551 No Longer Active [facility] Ziglari DEVELOPING MACHINE OPERATOR Active TRAZODONE HCL 50 MG ORAL TABLET three tablets at bed time TRAZODONE HCL 23595055660 No Longer Active [facility] Ziglari DEVELOPING MACHINE OPERATOR Active REVLIMID 25 MG ORAL CAPSULE one capsule daily for 21 days then off for 7 days LENALIDOMIDE 50839326556 No Longer Active [facility] Ziglari DEVELOPING MACHINE OPERATOR Active ZITHROMAX Z-EDDIE 250 MG ORAL TABLET 2 today, then 1 daily for 4 days AZITHROMYCIN 16127988404 No Longer Active Augustina Adolfo DOHERTY Active NOVOLIN R RELION 100 UNIT/ML INJECTION SOLUTION 30- 40 units each meal sliding scale INSULIN REGULAR HUMAN 04607918415 No Longer Active Moy Rodrigoglari DEVELOPING MACHINE OPERATOR Active CALCIUM 500/D 500-200 MG-UNIT ORAL TABLET one tablet daily CALCIUM CARBONATE-VITAMIN D 59724586062 Active Prosper Arenas MD Active HYDROCODONE-ACETAMINOPHEN 5-500 MG ORAL TABLET 1-2 FOUR TIMES A DAY, PRN 2010 HYDROCODONE-ACETAMINOPHEN 63779661897 No Longer Active Prosper Arenas MD Active ASPIRIN 81 MG ORAL TABLET 1 tablet by mouth daily ASPIRIN 44302728251 Active Prosper Arenas MD Active DOXYCYCLINE HYCLATE 100 MG ORAL CAPSULE take one capsule by mouth twice daily for ten days DOXYCYCLINE HYCLATE 78285742124 No Longer Active Mekhi Dukes MD Active DOXYCYCLINE HYCLATE 100 MG ORAL CAPSULE take one capsule by mouth twice daily for ten days DOXYCYCLINE HYCLATE 100 MG ORAL CAPSULE 8643532 DOXYCYCLINE HYCLATE Inactive HYDROCODONE-ACETAMINOPHEN 5-500 MG ORAL TABLET 1-2 FOUR TIMES A DAY, PRN 2010 HYDROCODONE-ACETAMINOPHEN 5-500 MG ORAL TABLET 145980 HYDROCODONE-ACETAMINOPHEN Inactive NOVOLIN R RELION 100 UNIT/ML INJECTION SOLUTION 30- 40 units each meal sliding scale NOVOLIN R RELION 100 UNIT/ML INJECTION SOLUTION INSULIN REGULAR HUMAN Inactive ZITHROMAX Z-EDDIE 250 MG ORAL TABLET 2 today, then 1 daily for 4 days ZITHROMAX Z-EDDIE 250 MG ORAL TABLET 364442 AZITHROMYCIN Inactive REVLIMID 25 MG ORAL CAPSULE one capsule daily for 21 days then off for 7 days REVLIMID 25 MG ORAL CAPSULE LENALIDOMIDE Inactive TRAZODONE HCL 50 MG ORAL TABLET three tablets at bed time TRAZODONE HCL 50 MG ORAL TABLET 737225 TRAZODONE HCL Inactive HALOPERIDOL 0.5 MG ORAL TABLET one tablet three times a day HALOPERIDOL 0.5 MG ORAL TABLET 903781 HALOPERIDOL Inactive BENZONATATE 200 MG ORAL CAPSULE 1 tab, 2-3 times a day BENZONATATE 200 MG ORAL CAPSULE 872046 BENZONATATE Inactive MECLIZINE HCL 25 MG ORAL TABLET 1 daily needed for dizziness 2015 MECLIZINE HCL 25 MG ORAL TABLET 212025 MECLIZINE HCL Inactive HYDROCHLOROTHIAZIDE 25 MG ORAL TABLET 1 tablet by mouth daily HYDROCHLOROTHIAZIDE 25 MG ORAL TABLET 557875 HYDROCHLOROTHIAZIDE Inactive PREDNISONE 20 MG ORAL TABLET Take 2 daily for 3 days and then 1 daily for 3 days PREDNISONE 20 MG ORAL TABLET 388624 PREDNISONE Inactive LISINOPRIL 5 MG ORAL TABLET 1 daily LISINOPRIL 5 MG ORAL TABLET 737822 LISINOPRIL Inactive METOPROLOL TARTRATE 25 MG ORAL TABLET 1/2 tablet twice a day METOPROLOL TARTRATE 25 MG ORAL TABLET 526026 METOPROLOL TARTRATE Inactive OMEPRAZOLE 20 MG ORAL CAPSULE DELAYED RELEASE 1 qd OMEPRAZOLE 20 MG ORAL CAPSULE DELAYED RELEASE 886195 OMEPRAZOLE Inactive SIMVASTATIN 80 MG ORAL TABLET 1/2 tablet daily SIMVASTATIN 80 MG ORAL TABLET 768867 SIMVASTATIN Inactive BENZONATATE 200 MG ORAL CAPSULE Take 1 tablet 3 times a day as needed for cough BENZONATATE 200 MG ORAL CAPSULE 701246 BENZONATATE Inactive Immunizations Vaccine Administration Date Value [...] W/DIFF - Chemistry sodium, serum 137 mmol/L 261-347 9679/08/16 carbon dioxide, venous blood 26.3 mmol/L 21.0-32.0 [...] LABS - Chemistry cholesterol, serum 115 mg/dL 045-039 7013/08/18 triglyceride, serum, fasting 89 mg/dL 30-200 HDL cholesterol, serum 46 mg/dL 32-60 LDL cholesterol, serum 51 mg/dL 0-130 blood glucose 104 mg/dL 65-110 Lab Report: LIPID PANEL- REPOWER LAB - Chemistry cholesterol, serum 156 mg/dL 851-825 4747/02/20 HDL cholesterol, serum 52 mg/dL > OR=40 [...] mg/dL Encounters Code Encounter Date Provider Facility CPT-88647 Level 3 Est. Patient 17:11:55 BOAT RIDE OPERATOR Ismael Gracia MD [facility] CPT-85622 Level 4 Est. Patient 16:29:19 CDT Mekhi Dukes MD [facility] CPT-42969 Level 3 New Patient 17:05:24 CDT Ismael Gracia MD [facility] CPT-92397 Level 2 Est. Patient 15:43:17 CDT Mekhi Dukes MD [facility] CPT-49568 Level 3 Est. Patient 09:30:37 CDT Maliheh Ziglari [facility]-29814 Level 3 Est. Patient 10:00:14 CDT Mekhi Dukes MD [facility] CPT-46606 Level 3 Est. Patient 12:24:09 CDT Moy Garcia [facility]-23452 Level 3 Est. Patient 14:34:57 CDT Prosper Arenas MD [facility] CPT-65495 Level 3 New Patient 15:44:53 BOAT RIDE OPERATOR Mekhi Dukes MD [facility]-57843 Level 3 Est. Patient 14:53:34 BOAT RIDE OPERATOR Prosper Arenas MD [facility] CPT-36054 Level 4 Est. Patient 10:05:41 BOAT RIDE OPERATOR Moy Rodrigokymrex [facility]-40512 Level 3 Est. Patient 11:18:32 [facility]-87822 Level 4 Est. Patient 11:05:10 CDT Moy Garcia [facility] CPT-70445 Level 3 Est. Patient 11:08:27 BOAT RIDE OPERATOR Moy Garcia [facility] CPT-16584 Level 4 Est. Patient 10:43:59 CDT Prosper Arenas MD [facility] CPT-94917 Level 3 Est. Patient 10:51:19 CDT Moy Garcia [facility] CPT-96817 Level 3 Est. Patient 10:20:31 CDT Moy Garcia [facility] CPT-52696 Level 3 Est. Patient 17:08:45 CDT Moy Garcia [facility] CPT-76576 Level 2 Est. Patient 13:54:36 CDT Augustina Mata APRN [facility] CPT-30873 Level 3 Est. Patient 12:00:42 CDT Prosper Arenas MD [facility] CPT-95692 Level 3 Est. Patient 09:57:28 BOAT RIDE OPERATOR Moy Garcia [facility] CPT-09342 Level 3 Est. Patient 11:41:19 BOAT RIDE OPERATOR Myo Garcia [facility] CPT-94132 Level 4 Est. Patient 17:07:35 BOAT RIDE OPERATOR Moy Garcia [facility] CPT-52800 Level 5 Est. Patient 14:33:32 CDT Moy Wallacerex [facility] CPT-22088 Level 3 Est. Patient 12:25:35 CDT Prosper Arenas MD [facility] Procedures Code Procedure Name Date Entry Date Standard Description CPT-G0439 Subsequent Annual Wellness Exam 08:39:41 BOAT RIDE OPERATOR CPT-000 Give Appropriate Flu Vaccine 10:13:55 BOAT RIDE OPERATOR CPT-000 Give Immunizations Due 10:13:55 BOAT RIDE OPERATOR CPT-35748 HGBA1C - LAB USE ONLY 09:42:47 BOAT RIDE OPERATOR CPT-50730 TPSA - LAB USE ONLY 09:42:46 BOAT RIDE OPERATOR CPT-32009 Venipuncture Draw Fee 09:42:46 BOAT RIDE OPERATOR CPT-00650 Port a cath flush 13:33:18 BOAT RIDE OPERATOR CPT-02050 First Vx - Ix admin for Medicare patients 10:42:57 BOAT RIDE OPERATOR CPT-70753 Fluzone Preservative Free Intramuscular Suspension 10:42 :57 BOAT RIDE OPERATOR CPT-G0438 Initial Annual Wellness Exam 10:13:55 BOAT RIDE OPERATOR CPT-000 Give Appropriate Flu Vaccine 10:44:04 CDT CPT-000 Give Pneumovax 10:44:03 CDT CPT-81681 Port a cath flush 17:04:43 CDT CPT-27331 Prevnar 13 11:19:17 CDT CPT-14891 Fluzone Quadrivalent preservative free (>=3yrs.) 11:19: 17 CDT CPT-48133 Immunization Each Additional Inj 11:19:17 CDT CPT-07572 Immunization Single Admin 11:19:17 CDT CPT-77000 Port a cath flush 13:28:22 CDT CPT-TCMM Transitional Care Mgmt-Moderate 13:40:15 CDT CPT-G0008 Administration of Influenza Virus Vaccine 13:59:20 CDT CPT-56673 Fluzone High-Dose Intramuscular Suspension 13:59:20 CDT CPT-39208 Venipuncture Draw Fee 09:56:19 CDT CPT-OV Office Visit 15:46:10 CDT
[2017-08-25 21:56] LABS: PROTHROMBIN TIME PATIENT 13.5 SEC (12.2-14.7)
--- OUTSIDE RECORDS SUMMARY | 2017-08-25 21:56 | XMS REPORT | Clinical Summary ---
Author Author Admin, IWONA Organization [employer] Address Unknown Phone Unavailable Allergies, Adverse Reactions, Alerts Allergy Name Reaction Description Start Date Severity Status Provider ERYTHROMYCIN Stomach cramps Moderate Active Prosper Arenas MD CODEINE Critical Active Maliheh Ziglari CHIEF QUALITY OFFICER DARVOCET Critical Active Maliheh Ziglari CHIEF QUALITY OFFICER LEVAQUIN Critical Active Maliheh Ziglari CHIEF QUALITY OFFICER Conditions or Problems Problem Name Problem Code Onset Date Status Entry Date Provider Comment Standard Description Annotate Diabetes, Type 2 250.00 Active eMkhi Dukes MD Diabetes mellitus without mention of [...] type II, uncontrolled 250.02 Active Maliheh Ziglari CHIEF QUALITY OFFICER Diabetes mellitus without mention of complication, type [...] with hyperglycemia 250.00 Active 03/21 Maliheh Ziglari CHIEF QUALITY OFFICER Diabetes mellitus without mention of complication, type II or unspecified type, not stated as uncontrolled 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 V58.67 Active Maliheh Ziglari CHIEF QUALITY OFFICER Long-term (current) use of insulin Diabetes mellitus, type II with hypoglycemia 250.80 Active 07/22 Maliheh Ziglari CHIEF QUALITY OFFICER Diabetes mellitus with other specified manifestations, type II or unspecified type, not stated as uncontrolled 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 INSULIN GLARGINE 75485740055 Active Maliheh Ziglari CHIEF QUALITY OFFICER Active MECLIZINE HCL 25 MG TABS 1 daily needed for dizziness MECLIZINE HCL 20041213463 No Longer Active Maliheh Ziglari CHIEF QUALITY OFFICER Active ACCU-CHEK JOANNA PLUS STRP check blood sugars 3x a day GLUCOSE BLOOD 38525282020 Active Maliheh Ziglari CHIEF QUALITY OFFICER Active NOVOLOG FLEXPEN 100 UNIT/ML SOPN Take 25 units with each meal, add 2u/50 for blood sugars above 150. INSULIN ASPART 36674237996 [facility] Ziglari CHIEF QUALITY OFFICER Active BENZONATATE 200 MG CAPS 1 tab, 2-3 times a day BENZONATATE 46061692580 No Longer Active [facility] Ziglari CHIEF QUALITY OFFICER Active HALOPERIDOL 0.5 MG TABS one tablet three times a day HALOPERIDOL 64437834617 No Longer Active [facility] Ziglari CHIEF QUALITY OFFICER Active TRAZODONE HCL 50 MG TAB three tablets at bed time TRAZODONE HCL 02265627790 No Longer Active [facility] Ziglari CHIEF QUALITY OFFICER Active REVLIMID 25 MG CAPS one capsule daily for 21 days then off for 7 days 2014 LENALIDOMIDE 91969274763 No Longer Active [facility] Ziglari CHIEF QUALITY OFFICER Active ZITHROMAX Z-EDDIE 250 MG TABS 2 today, then 1 daily for 4 days 2014 AZITHROMYCIN 67893368948 No Longer Active Augustina Mata [employer]IPE [employer]OVERS SUPERVISOR Active NOVOLIN R RELION 100 UNIT/ML INJ SOLN 30- 40 units each meal sliding scale INSULIN REGULAR HUMAN 00628934513 No Longer Active Luxshoaib Wallaceglari CHIEF QUALITY OFFICER Active LISINOPRIL 5 MG TABS 1 daily LISINOPRIL 25117884359 Active Prosper Arenas MD Active CALCIUM 500/D 500-200 MG-UNIT TABS one tablet daily CALCIUM CARBONATE- VITAMIN D 90419097265 Active Prosper Arenas MD Active HYDROCHLOROTHIAZIDE 25 MG TABS 1 tablet by mouth daily HYDROCHLOROTHIAZIDE 31416572769 Active Prosper Arenas MD Active HYDROCODONE-ACETAMINOPHEN 5-500 MG TABS 1-2 FOUR TIMES A DAY, PRN HYDROCODONE-ACETAMINOPHEN 32391280286 No Longer Active Prosper Arenas MD Active SIMVASTATIN 80 MG TABS 1/2 tablet daily SIMVASTATIN 31498391379 Active Prosper Arenas MD Active METOPROLOL TARTRATE 25 MG TABS 1/2 tablet twice a day METOPROLOL TARTRATE 38988337191 Active Prosper Arenas MD Active ASPIRIN 81 MG TAB 1 tablet by mouth daily ASPIRIN 12429299729 Active Prosper Arenas MD Active OMEPRAZOLE 20 MG CPDR 1 qd OMEPRAZOLE 53891282189 Active DARCIE Miller Active DOXYCYCLINE HYCLATE 100 MG CAPS take one capsule by mouth twice daily for ten days DOXYCYCLINE HYCLATE 38982171665 No Longer Active Mekhi Dukes MD Active DOXYCYCLINE HYCLATE 100 MG CAPS take one capsule by mouth twice daily for ten days DOXYCYCLINE HYCLATE 100 MG CAPS 3541732 DOXYCYCLINE HYCLATE Inactive HYDROCODONE-ACETAMINOPHEN 5-500 MG TABS [...] days 2014 ZITHROMAX Z-EDDIE 250 MG TABS 7385926 AZITHROMYCIN Inactive REVLIMID 25 MG CAPS one capsule daily for 21 days then off for 7 days 2014 REVLIMID 25 MG CAPS LENALIDOMIDE Inactive TRAZODONE HCL 50 MG TAB three tablets at bed time TRAZODONE HCL 50 MG TAB 587477 TRAZODONE HCL Inactive HALOPERIDOL 0.5 MG TABS one tablet three times a day HALOPERIDOL 0.5 MG TABS 008608 HALOPERIDOL Inactive BENZONATATE 200 MG CAPS 1 tab, 2-3 times a day BENZONATATE 200 MG CAPS 655962 BENZONATATE Inactive MECLIZINE HCL 25 MG TABS 1 daily needed for dizziness MECLIZINE HCL 25 MG TABS 573664 MECLIZINE HCL Inactive Immunizations Vaccine Administration Date [...] HGBA1C - Chemistry sodium, serum 137 mmol/L 949-668 8387/10/23 potassium, serum 3.5 mmol/L 3.5-5.2 chloride, serum [...] 11.6-14.8 platelet count 184 10^3/MM^3 10*3/mm3 142-424 Office Visit: Diabetes Visit - Chemistry cholesterol, [...] mg/dL Encounters Code Encounter Date Provider Facility CPT-88116 Level 3 Est. Patient 11:18:32 CDT Moy Garcia [facility] CPT-51332 Level 4 Est. Patient 11:05:10 CDT [facility] Level 3 Est. Patient 11:08:27 SENIOR MECHANICAL ESTIMATOR [facility] 4 Est. Patient 10:43:59 CDT Prosper Arenas MD [facility] CPT-41889 Level 3 Est. Patient 10:51:19 CDT [facility]-7[facility] Level 3 Est. Patient 10:20:31 CDT [facility]PT-95204 Level 3 Est. Patient 17:08:45 CDT [facility] CPT-84021 Level 2 Est. Patient 13:54:36 CDT Augustina Mata APRN [facility] CPT-39973 Level 3 Est. Patient 12:00:42 CDT Prosper Arenas MD [facility] CPT-96071 Level 3 Est. Patient 09:57:28 SENIOR MECHANICAL ESTIMATOR [facility] Level 3 Est. Patient 11:41:19 SENIOR MECHANICAL ESTIMATOR [facility] CPT-34188 Level 4 Est. Patient 17:07:35 SENIOR MECHANICAL ESTIMATOR [facility] CPT-16303 Level 5 Est. Patient 14:33:32 CDT [facility] CPT-21825 Level 3 Est. Patient 12:25:35 CDT Prosper Arenas MD [facility] Procedures Code Procedure Name Date Entry Date Standard Description CPT-000 Give Appropriate Flu Vaccine 10:44:04 CDT CPT-000 Give Pneumovax 10:44:03 CDT CPT-05479 Port a cath flush 17:04:43 CDT CPT-94733 Prevnar 13 11:19:17 CDT CPT-55078 Fluzone Quadrivalent preservative free (>=3yrs.) 11:19: 17 CDT CPT-20579 Immunization Each Additional Inj 11:19:17 CDT CPT-86360 Immunization Single Admin 11:19:17 CDT CPT-29037 Port a cath flush 13:28:22 CDT CPT-TCMM Transitional Care Mgmt-Moderate 13:40:15 CDT CPT-G0008 Administration of Influenza Virus Vaccine 13:59:20 CDT CPT-69742 Fluzone High-Dose Intramuscular Suspension 13:59:20 CDT CPT-65368 Venipuncture Draw Fee 09:56:19 CDT CPT-OV Office Visit 15:46:10 CDT
--- OUTSIDE RECORDS SUMMARY | 2017-08-25 21:57 | XMS REPORT | Clinical Summary ---
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 mellitus without mention of complication, type [...] type II, uncontrolled 250.02 Active Maliheh Rodrigoglari BULL BUCKER Diabetes mellitus without mention of complication, type [...] with hyperglycemia 250.00 Active 03/21 Maliheh Ziglari BULL BUCKER Diabetes mellitus without mention of complication, type II or unspecified type, not stated as uncontrolled long-term use of insulin treatment V58.67 Active Luxiheh Rodrigoglari BULL BUCKER Long-term (current) use of insulin Diabetes mellitus, type II with hypoglycemia 250.80 Active 07/22 Maliheh Ziglari BULL BUCKER Diabetes mellitus with other specified manifestations, type II or unspecified type, not stated as uncontrolled 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 Maliheh Ziglari BULL BUCKER Diabetes mellitus with renal manifestations, type II or unspecified type, not stated as uncontrolled Wellness exam V70.0 Active Dee Palmer APRN Routine general medical examination at a health care facility Fitting and adjustment of vascular catheter V58.81 Active 02/06 Dee Palmer APRN Encounter for fitting and adjustment of vascular catheter Unawareness of hypoglycemia in diabetes mellitus, type II 250.80 Active Maliheh Rodrigoglari BULL BUCKER Diabetes mellitus with other specified manifestations, type [...] specified as recurrent) Gastritis Inactive Maliheh Jose BULL BUCKER Unspecified gastritis and gastroduodenitis, without mention of [...] po qd x 4 days 05/07 AZITHROMYCIN 77038425041 Active Dee Palmer APRN Active GUAIFENESIN DM 400-20 MG ORAL TABLET 1 pill by mouth twice daily, if needed for cough DEXTROMETHORPHAN-GUAIFENESIN 70746760294 Active Dee Palmer APRN Active PREDNISONE 20 MG ORAL TABLET 2 tabs daily for 4 days, 1 tab daily for 4 days, 1/2 tab daily for 4 days PREDNISONE 57138128852 Active Dee Palmer APRN Active ASPIRIN 81 MG ORAL TABLET 1 po qd ASPIRIN 99813520752 Active Dee Palmer APRN Active CALCIUM 500/D 500-200 MG-UNIT ORAL TABLET one tablet daily CALCIUM CARBONATE-VITAMIN D 37001726263 No Longer Active Dee Palmer APRN Active HYDROCODONE-ACETAMINOPHEN 7.5-325 MG ORAL TABLET 1-2 every 4-6 hrs prn 02/25 HYDROCODONE-ACETAMINOPHEN 18031271432 Active Marina Messina BESSY Active ASPIRIN 81 MG ORAL TABLET 1 tablet by mouth daily ASPIRIN 62871277541 No Longer Active Marina King BESSY Active SIMVASTATIN 80 MG ORAL TABLET 1/2 tablet daily SIMVASTATIN 62218310145 No Longer Active Mekhi Dukes MD Active OMEPRAZOLE 20 MG ORAL CAPSULE DELAYED RELEASE 1 qd OMEPRAZOLE 08006622782 No Longer Active Mekhi Dukes MD Active METOPROLOL TARTRATE 25 MG ORAL TABLET 1/2 tablet twice a day METOPROLOL TARTRATE 47125121554 No Longer Active Mekhi Dukes MD Active LISINOPRIL 5 MG ORAL TABLET 1 daily LISINOPRIL 78496127900 No Longer Active Mekhi Dukes MD Active NOVOLOG FLEXPEN 100 UNIT/ML SUBCUTANEOUS SOLUTION PEN-INJECTOR Take 8 units with each meal, add 1u/50 for blood sugars above 150. INSULIN ASPART 02217262022 Active Moy PARISH Active GABAPENTIN 300 MG ORAL CAPSULE 1 tab BID GABAPENTIN 20917481560 Active Tami Miller RN Active PREDNISONE 20 MG ORAL TABLET Take 2 daily for 3 days and then 1 daily for 3 days PREDNISONE 20957741668 No Longer Active Moy PARISH Active BENZONATATE 200 MG ORAL CAPSULE Take 1 tablet 3 times a day as needed for cough BENZONATATE 18970572089 No Longer Active Prosper Arenas MD Active HYDROCHLOROTHIAZIDE 25 MG ORAL TABLET 1 tablet by mouth daily HYDROCHLOROTHIAZIDE 97704905679 No Longer Active Prosper Arenas MD Active ACCU-CHEK JOANNA PLUS IN VITRO STRIP check blood sugars 5x a day, before each meal and bedtime and 15 minutes after treating a low blood. sugar GLUCOSE BLOOD 85902126210 Active Moy PARISH Active LANTUS SOLOSTAR 100 UNIT/ML SUBCUTANEOUS SOLUTION PEN-INJECTOR Take 40 units at 7-8pm daily INSULIN GLARGINE 02869652143 Active Maliheh Ziglari BULL BUCKER Active MECLIZINE HCL 25 MG ORAL TABLET 1 daily needed for dizziness 2015 MECLIZINE HCL 45276795126 No Longer Active Maliheh Ziglari BULL BUCKER Active BENZONATATE 200 MG ORAL CAPSULE 1 tab, 2-3 times a day BENZONATATE 50750111873 No Longer Active Maliheh Ziglari BULL BUCKER Active HALOPERIDOL 0.5 MG ORAL TABLET one tablet three times a day HALOPERIDOL 33425881099 No Longer Active Maliheh Ziglari BULL BUCKER Active TRAZODONE HCL 50 MG ORAL TABLET three tablets at bed time TRAZODONE HCL 86506439616 No Longer Active [facility] Ziglari BULL BUCKER Active REVLIMID 25 MG ORAL CAPSULE one capsule daily for 21 days then off for 7 days LENALIDOMIDE 17359437433 No Longer Active Maleh Ziglari BULL BUCKER Active ZITHROMAX Z-EDDIE 250 MG ORAL TABLET 2 today, then 1 daily for 4 days AZITHROMYCIN 35978675362 No Longer Active Augustina Mata CONSUMER LENDER Active NOVOLIN R RELION 100 UNIT/ML INJECTION SOLUTION 30- 40 units each meal sliding scale INSULIN REGULAR HUMAN 48022240458 No Longer Active Moy Wallaceglari BULL BUCKER Active HYDROCODONE-ACETAMINOPHEN 5-500 MG ORAL TABLET 1-2 FOUR TIMES A DAY, PRN 2010 HYDROCODONE-ACETAMINOPHEN 55258805921 No Longer Active Prosper Arenas MD Active DOXYCYCLINE HYCLATE 100 MG ORAL CAPSULE take one capsule by mouth twice daily for ten days DOXYCYCLINE HYCLATE 64849349775 No Longer Active Mekhi Dukes MD Active DOXYCYCLINE HYCLATE 100 MG ORAL CAPSULE take one capsule by mouth twice daily for ten days DOXYCYCLINE HYCLATE 100 MG ORAL CAPSULE 5684383 DOXYCYCLINE HYCLATE Inactive HYDROCODONE-ACETAMINOPHEN 5-500 MG ORAL TABLET 1-2 FOUR TIMES A DAY, PRN 2010 HYDROCODONE-ACETAMINOPHEN 5-500 MG ORAL TABLET 079899 HYDROCODONE-ACETAMINOPHEN Inactive NOVOLIN R RELION 100 UNIT/ML INJECTION SOLUTION 30- 40 units each meal sliding scale NOVOLIN R RELION 100 UNIT/ML INJECTION SOLUTION INSULIN REGULAR HUMAN Inactive ZITHROMAX Z-EDDIE 250 MG ORAL TABLET 2 today, then 1 daily for 4 days ZITHROMAX Z-EDDIE 250 MG ORAL TABLET 178285 AZITHROMYCIN Inactive REVLIMID 25 MG ORAL CAPSULE one capsule daily for 21 days then off for 7 days REVLIMID 25 MG ORAL CAPSULE LENALIDOMIDE Inactive TRAZODONE HCL 50 MG ORAL TABLET three tablets at bed time TRAZODONE HCL 50 MG ORAL TABLET 324577 TRAZODONE HCL Inactive HALOPERIDOL 0.5 MG ORAL TABLET one tablet three times a day HALOPERIDOL 0.5 MG ORAL TABLET 797139 HALOPERIDOL Inactive BENZONATATE 200 MG ORAL CAPSULE 1 tab, 2-3 times a day BENZONATATE 200 MG ORAL CAPSULE 587702 BENZONATATE Inactive MECLIZINE HCL 25 MG ORAL TABLET 1 daily needed for dizziness 2015 MECLIZINE HCL 25 MG ORAL TABLET 433954 MECLIZINE HCL Inactive HYDROCHLOROTHIAZIDE 25 MG ORAL TABLET 1 tablet by mouth daily HYDROCHLOROTHIAZIDE 25 MG ORAL TABLET 527291 HYDROCHLOROTHIAZIDE Inactive PREDNISONE 20 MG ORAL TABLET Take 2 daily for 3 days and then 1 daily for 3 days PREDNISONE 20 MG ORAL TABLET 113106 PREDNISONE Inactive LISINOPRIL 5 MG ORAL TABLET 1 daily LISINOPRIL 5 MG ORAL TABLET 150311 LISINOPRIL Inactive METOPROLOL TARTRATE 25 MG ORAL TABLET 1/2 tablet twice a day METOPROLOL TARTRATE 25 MG ORAL TABLET 492001 METOPROLOL TARTRATE Inactive OMEPRAZOLE 20 MG ORAL CAPSULE DELAYED RELEASE 1 qd OMEPRAZOLE 20 MG ORAL CAPSULE DELAYED RELEASE 138420 OMEPRAZOLE Inactive SIMVASTATIN 80 MG ORAL TABLET 1/2 tablet daily SIMVASTATIN 80 MG ORAL TABLET 099381 SIMVASTATIN Inactive ASPIRIN 81 MG ORAL TABLET 1 tablet by mouth daily ASPIRIN 81 MG ORAL TABLET 210283 ASPIRIN Inactive CALCIUM 500/D 500-200 MG-UNIT ORAL TABLET one tablet daily CALCIUM 500/D 500-200 MG-UNIT ORAL TABLET CALCIUM CARBONATE-VITAMIN D Inactive BENZONATATE 200 MG ORAL CAPSULE Take 1 tablet 3 times a day as needed for cough BENZONATATE 200 MG ORAL CAPSULE 360343 BENZONATATE Inactive Immunizations Vaccine Administration Date Value [...] W/DIFF - Chemistry sodium, serum 137 mmol/L 536-210 5995/08/16 carbon dioxide, venous blood 26.3 mmol/L 21.0-32.0 [...] LABS - Chemistry cholesterol, serum 115 mg/dL 679-332 8528/08/18 triglyceride, serum, fasting 89 mg/dL 30-200 HDL cholesterol, serum 46 mg/dL 32-60 LDL cholesterol, serum 51 mg/dL 0-130 blood glucose 104 mg/dL 65-110 Lab Report: LIPID PANEL- REPOWER LAB - Chemistry cholesterol, serum 156 mg/dL 442-477 9912/02/20 HDL cholesterol, serum 52 mg/dL > OR=40 [...] mg/dL Encounters Code Encounter Date Provider Facility CPT-12523 Level 3 Est. Patient 14:09:25 TOWN ADMINISTRATOR Ryanmakenna Palmer APRN [facility] CPT-30214 Level 3 Est. Patient 10:53:32 TOWN ADMINISTRATOR Moy Garcia [facility] CPT-19184 Level 3 Est. Patient 17:11:55 TOWN ADMINISTRATOR Ismael Gracia MD [facility] CPT-19669 Level 4 Est. Patient 16:29:19 CDT Mekhi Dukes MD [facility] CPT-26247 Level 3 New Patient 17:05:24 CDT Ismael Gracia MD [facility] CPT-64810 Level 2 Est. Patient 15:43:17 CDT Mekhi Dukes MD [facility] CPT-69333 Level 3 Est. [facility] 09:30:37 [facility] Level 3 Est. Patient 10:00:14 CDT Mekhi Dukes MD [facility] CPT-95389 Level 3 Est. Patient 12:24:09 CDT [facility] Level 3 Est. Patient 14:34:57 CDT Prosper Arenas MD [facility] CPT-86574 Level 3 New Patient 15:44:53 TOWN ADMINISTRATOR Mekhi Dukes MD [facility] CPT-53557 Level 3 Est. Patient 14:53:34 TOWN ADMINISTRATOR Prosper Arenas MD [facility] CPT-27598 Level 4 Est. Patient 10:05:41 TOWN ADMINISTRATOR Moy Garcia [facility] CPT-56790 Level 3 Est. Patient 11:18:32 CDT [facility] CPT-60217 Level 4 Est. Patient 11:05:10 CDT [facility] CPT-56923 Level 3 Est. Patient 11:08:27 TOWN ADMINISTRATOR [facility]ib [facility] CPT-34946 Level 4 Est. Patient 10:43:59 CDT Prosper Arenas MD [facility] CPT-75320 Level 3 Est. Patient 10:51:19 CDT [facility] CPT-32471 Level 3 Est. Patient 10:20:31 CDT [facility] CPT-99464 Level 3 Est. Patient 17:08:45 CDT [facility] CPT-58589 Level 2 Est. Patient 13:54:36 CDT Augustina Mata APRN [facility] CPT-14559 Level 3 Est. Patient 12:00:42 CDT Prosper Arenas MD [facility] CPT-05155 Level 3 Est. Patient 09:57:28 TOWN ADMINISTRATOR [facility] CPT-20420 Level 3 Est. Patient 11:41:19 TOWN ADMINISTRATOR [facility] [place] [place] CPT-39449 Level 4 Est. Patient 17:07:35 TOWN ADMINIST[facility] CPT-44226 Level 5 Est. Patient 14:33:32 CDT [facility] CPT-71616 Level 3 Est. Patient 12:25:35 CDT Prosper Arenas MD [facility] Procedures Code Procedure Name Date Entry Date Standard Description CPT-35545 Chest, 2 views 14:17:20 TOWN ADMINISTRATOR CPT-04303 Postop F/U Visit 14:44:45 TOWN ADMINISTRATOR CPT-83909 Postop F/U Visit 17:20:20 TOWN ADMINISTRATOR CPT-G0439 Subsequent Annual Wellness Exam 08:39:41 TOWN ADMINISTRATOR CPT-000 Give Appropriate Flu Vaccine 10:13:55 TOWN ADMINISTRATOR CPT-000 Give Immunizations Due 10:13:55 TOWN ADMINISTRATOR CPT-28406 HGBA1C - LAB USE ONLY 09:42:47 TOWN ADMINISTRATOR CPT-20965 TPSA - LAB USE ONLY 09:42:46 TOWN ADMINISTRATOR CPT-28474 Venipuncture Draw Fee 09:42:46 TOWN ADMINISTRATOR CPT-05288 Port a cath flush 13:33:18 TOWN ADMINISTRATOR CPT-79711 First Vx - Ix admin for Medicare patients 10:42:57 TOWN ADMINISTRATOR CPT-38884 Fluzone Preservative Free Intramuscular Suspension 10:42 :57 TOWN ADMINISTRATOR CPT-G0438 Initial Annual Wellness Exam 10:13:55 TOWN ADMINISTRATOR CPT-000 Give Appropriate Flu Vaccine 10:44:04 CDT CPT-000 Give Pneumovax 10:44:03 CDT CPT-95918 Port a cath flush 17:04:43 CDT CPT-54087 Prevnar 13 11:19:17 CDT CPT-98031 Fluzone Quadrivalent preservative free (>=3yrs.) 11:19: 17 CDT CPT-27195 Immunization Each Additional Inj 11:19:17 CDT CPT-10218 Immunization Single Admin 11:19:17 CDT CPT-31658 Port a cath flush 13:28:22 CDT CPT-TCMM Transitional Care Mgmt-Moderate 13:40:15 CDT CPT-G0008 Administration of Influenza Virus Vaccine 13:59:20 CDT CPT-32167 Fluzone High-Dose Intramuscular Suspension 13:59:20 CDT CPT-36449 Venipuncture Draw Fee 09:56:19 CDT CPT-OV Office Visit 15:46:10 CDT
--- OUTSIDE RECORDS SUMMARY | 2017-08-25 21:58 | XMS REPORT | Clinical Summary ---
Author Author Admin, IWONA Organization [facility] Address Unknown Phone Unavailable Allergies, Adverse Reactions, Alerts Allergy Name Reaction Description Start Date Severity Status Provider ERYTHROMYCIN Stomach cramps Moderate Active Prosper Arenas MD CODEINE Critical Active Maliheh Ziglari LIP CUTTER AND SCORER DARVOCET Critical Active Maliheh Ziglari LIP CUTTER AND SCORER LEVAQUIN Critical Active Maliheh Ziglari LIP CUTTER AND SCORER Conditions or Problems Problem Name Problem Code [...] type II, uncontrolled 250.02 Active Maliheh Ziglari LIP CUTTER AND SCORER Diabetes mellitus without mention of complication, type [...] Cough 786.2 Active Augustina Mata APRN Cough Medication List Medication Instructions Start Date Stop Date Generic Name NDC Status Provider Patient Instruction ACCU-CHEK JOANNA PLUS STRP check blood sugars 3x a day GLUCOSE BLOOD 01344583796 Active Moy Ziglari LIP CUTTER AND SCORER Active NOVOLOG FLEXPEN 100 UNIT/ML SOPN Take 15 units with each meal, add 2u/50 for blood sugars above 150 INSULIN ASPART 88364769385 Active Moy Ziglari LIP CUTTER AND SCORER Active ZITHROMAX Z-EDDIE 250 MG TABS 2 today, then 1 daily for 4 days 2014 AZITHROMYCIN 65937622003 No Longer Active Augustina Mata APRN Active BENZONATATE 200 MG CAPS 1 tab, 2-3 times a day BENZONATATE 00820556704 Active Prosper Arenas MD Active LANTUS SOLOSTAR 100 UNIT/ML SOLN 30 units at 4-5pm daily INSULIN GLARGINE 21541362878 Active Moy Rodrigoglari LIP CUTTER AND SCORER Active NOVOLIN R RELION 100 UNIT/ML INJ SOLN 30- 40 units each meal sliding scale INSULIN REGULAR HUMAN 51623646894 No Longer Active Moy Rodrigoglrex DURANTP Active LISINOPRIL 5 MG TABS 1 daily LISINOPRIL 93420591736 Active Prosper Arenas MD Active CALCIUM 500/D 500-200 MG-UNIT TABS one tablet daily CALCIUM CARBONATE- VITAMIN D 19741839789 Active Prosper Arenas MD Active REVLIMID 25 MG CAPS one capsule daily for 21 days then off for 7 days LENALIDOMIDE 83065405396 Active Prosper Arenas MD Active HYDROCHLOROTHIAZIDE 25 MG TABS 1 tablet by mouth daily HYDROCHLOROTHIAZIDE 32463382746 Active Prosper Arenas MD Active HYDROCODONE-ACETAMINOPHEN 5-500 MG TABS 1-2 FOUR TIMES A DAY, PRN HYDROCODONE-ACETAMINOPHEN 36149350268 No Longer Active Prosper Arenas MD Active TRAZODONE HCL 50 MG TAB three tablets at bed time TRAZODONE HCL 46748672323 Active Prosper Arenas MD Active SIMVASTATIN 80 MG TABS 1/2 tablet daily SIMVASTATIN 00018427835 Active Prosper Arenas MD Active METOPROLOL TARTRATE 25 MG TABS 1/2 tablet twice a day METOPROLOL TARTRATE 18750653255 Active Prosper Arenas MD Active HALOPERIDOL 0.5 MG TABS one tablet three times a day HALOPERIDOL 97389720782 Active Prosper Arenas MD Active ASPIRIN 81 MG TAB 1 tablet by mouth daily ASPIRIN 16522481259 Active Prosper Arenas MD Active OMEPRAZOLE 20 MG CPDR 1 qd OMEPRAZOLE 70836576601 Active DARCIE Miller Active DOXYCYCLINE HYCLATE 100 MG CAPS take one capsule by mouth twice daily for ten days DOXYCYCLINE HYCLATE 08101039872 No Longer Active Mekhi Dukes MD Active DOXYCYCLINE HYCLATE 100 MG CAPS take one capsule by mouth twice daily for ten days DOXYCYCLINE HYCLATE 100 MG CAPS 509055 DOXYCYCLINE HYCLATE Inactive HYDROCODONE-ACETAMINOPHEN 5-500 MG TABS [...] days 2014 ZITHROMAX Z-EDDIE 250 MG TABS 1118163 AZITHROMYCIN Inactive Immunizations Vaccine Administration Date Value Standard Description influenza immunization (Flu Vax) has been administered 01/09/2014 influenza virus vaccine, unspecified formulation Vital Signs Date Name Value Unit Range Description blood pressure, diastolic - 8462-4 62 mm[Hg] [...] Panel - Chemistry sodium, serum 137 mmol/L 538-607 8928/08/22 potassium, serum 4.0 mmol/L 3.5-5.2 chloride, serum 100 mmol/L 98-107 carbon dioxide, venous blood 27.9 mmol/L 21.0-32.0 blood glucose 109 mg/dL 65-110 calcium, serum 9.0 mg/dL 8.5-10.1 urea nitrogen, blood 15 mg/dL 7-18 creatinine, serum 2.00 mg/dL 0.60-1.30 Lab Report: Basic Metabolic Panel, HGBA1C - Chemistry sodium, serum 134 mmol/L 876-662 7596/01/27 potassium, serum 4.1 mmol/L 3.5-5.2 chloride, serum 96 mmol/L 98-107 carbon dioxide, venous blood 35.1 mmol/L 21.0-32.0 blood glucose 346 mg/dL 65-110 calcium, serum 8.4 mg/dL 8.5-10.1 urea nitrogen, blood 18 mg/dL 7-18 creatinine, serum 2.00 mg/dL 0.60-1.30 hemoglobin A1C, blood, as % of total hemoglobin 8.4 % 4.3-6.0 Lab Report: CBC W/DIFF, Comp. Metabolic Panel - Chemistry sodium, serum 137 mmol/L 140-079 7156/01/21 potassium, serum 4.1 mmol/L 3.5-5.2 chloride, serum 99 mmol/L 98-107 carbon dioxide, venous blood 30.9 mmol/L 21.0-32.0 blood glucose 303 mg/dL 65-110 urea nitrogen, blood 19 mg/dL 7-18 creatinine, serum 2.00 mg/dL 0.60-1.30 alanine aminotransferase (SGPT), serum 84 U/L -78 aspartate aminotransferase (SGOT), serum 41 U/L 15-37 calcium, serum 7.8 mg/dL 8.5-10.1 bilirubin, serum, total 0.50 mg/dL 0.00-1.00 sodium, serum 131 mmol/L 137-180 3642/03/18 potassium, serum 4.4 mmol/L 3.5-5.2 chloride, serum 95 mmol/L 98-107 carbon dioxide, venous blood 19.0 mmol/L 21.0-32.0 blood glucose 297 mg/dL 65-110 urea nitrogen, blood 19 mg/dL 7-18 creatinine, serum 1.70 mg/dL 0.60-1.30 alanine aminotransferase (SGPT), serum 184 U/L 12-78 aspartate aminotransferase (SGOT), serum 177 U/L 15-37 calcium, serum 7.8 mg/dL 8.5-10.1 bilirubin, serum, total 0.50 mg/dL 0.00-1.00 sodium, serum 135 mmol/L 104-312 0945/11/26 potassium, serum 4.4 mmol/L 3.5-5.2 chloride, serum [...] % 11.6-14.8 platelet count 172 10^3/MM^3 10*3/mm3 363-814 7146/01/21 leukocyte count, blood 6.3 10^3/MM^3 10*3/mm3 4.6-10.2 [...] % 11.6-14.8 platelet count 137 10^3/MM^3 10*3/mm3 762-063 8402/03/18 leukocyte count, blood 4.8 10^3/MM^3 10*3/mm3 4.6-10.2 [...] Ag - Chemistry sodium, serum 131 mmol/L 795-465 8631/10/13 potassium, serum 3.6 mmol/L 3.5-5.2 chloride, serum [...] 0.60 mg/dL 0.00-1.00 cholesterol, serum 98 mg/dL 561-840 8952/10/13 triglyceride, serum, fasting 125 mg/dL 30-200 HDL [...] mg/dL Encounters Code Encounter Date Provider Facility CPT-22052 Level 3 Est. Patient 17:08:45 CDT [facility] [place] CPT-98069 Level 2 Est. Patient 13:54:36 CDT Augustina Mata APRN [facility] CPT-43293 Level 3 Est. Patient 12:00:42 CDT Prosper Arenas MD [facility] CPT-85108 Level 3 Est. Patient 09:57:28 ASSISTANT DIRECTOR OF PUBLIC WORKS [facility] [place] CPT-29225 Level 3 Est. Patient 11:41:19 ASSISTANT DIRECTOR OF PUBLIC WORKS [facility] [place] CPT-81330 Level 4 Est. Patient 17:07:35 ASSISTANT DIRECTOR OF PUBLIC WORKS [facility] CPT-52573 Level 5 Est. Patient 14:33:32 CDT [facility] CPT-68060 Level 3 Est. Patient 12:25:35 CDT Prosper Arenas MD [facility] Procedures Code Procedure Name Date Entry Date Standard Description CPT-TCMM Transitional Care Mgmt-Moderate 13:40:15 CDT CPT-G0008 Administration of Influenza Virus Vaccine 13:59:20 CDT CPT-23167 Fluzone High-Dose Intramuscular Suspension 13:59:20 CDT CPT-08618 Venipuncture Draw Fee 09:56:19 CDT CPT-OV Office Visit 15:46:10 CDT
--- OUTSIDE RECORDS SUMMARY | 2017-08-25 21:58 | XMS REPORT | Clinical Summary ---
Author Author Admin, IWONA Organization [employer] Address Unknown Phone Unavailable Allergies, Adverse Reactions, Alerts Allergy Name Reaction Description Start Date Severity Status Provider ERYTHROMYCIN Stomach cramps Moderate Active Prosper Arenas MD CODEINE Critical Active Maliheh Ziglari TABLE TENDER DARVOCET Critical Active Maliheh Ziglari TABLE TENDER LEVAQUIN Critical Active Maliheh Ziglari TABLE TENDER Conditions or Problems Problem Name Problem Code [...] type II, uncontrolled 250.02 Active Maliheh Ziglari TABLE TENDER Diabetes mellitus without mention of complication, type [...] with hyperglycemia 250.00 Active 03/21 Maliheh Ziglari TABLE TENDER Diabetes mellitus without mention of complication, type II or unspecified type, not stated as 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 INSULIN GLARGINE 94917230202 Active Maliheh Ziglari TABLE TENDER Active MECLIZINE HCL 25 MG TABS 1 daily needed for dizziness MECLIZINE HCL 71846682524 No Longer Active Maliheh Ziglari TABLE TENDER Active ACCU-CHEK JOANNA PLUS STRP check blood sugars 3x a day GLUCOSE BLOOD 25702050613 Active Maliheh Ziglari TABLE TENDER Active NOVOLOG FLEXPEN 100 UNIT/ML SOPN Take 25 units with each meal, add 2u/50 for blood sugars above 150. INSULIN ASPART 50278315154 Active Maliheh Ziglari TABLE TENDER Active BENZONATATE 200 MG CAPS 1 tab, 2-3 times a day BENZONATATE 60988676065 No Longer Active [facility] Rodrigoglari TABLE TENDER Active HALOPERIDOL 0.5 MG TABS one tablet three times a day HALOPERIDOL 00103533867 No [facility] Active TRAZODONE HCL 50 MG TAB three tablets at bed time TRAZODONE HCL 59386442543 No Long[facility] Active REVLIMID 25 MG CAPS one capsule daily for 21 days then off for 7 days 2014 LENALIDOMIDE 14512424975 No Longer Active [facility] Rodrigoglari TABLE TENDER Active ZITHROMAX Z-EDDIE 250 MG TABS 2 today, then 1 daily for 4 days 2014 AZITHROMYCIN 21193094918 No Longer Active Augustina Yokum SHIELD OPERATOR Active NOVOLIN R RELION 100 UNIT/ML INJ SOLN 30- 40 units each meal sliding scale INSULIN REGULAR HUMAN 24478857474 No Longer Active [facility] Rodrigoglari TABLE TENDER Active LISINOPRIL 5 MG TABS 1 daily LISINOPRIL 83230823825 Active Prosper Arenas MD Active CALCIUM 500/D 500-200 MG-UNIT TABS one tablet daily CALCIUM CARBONATE- VITAMIN D 38743523495 Active Prosper Arenas MD Active HYDROCHLOROTHIAZIDE 25 MG TABS 1 tablet by mouth daily HYDROCHLOROTHIAZIDE 53557528448 Active Prosper Arenas MD Active HYDROCODONE-ACETAMINOPHEN 5-500 MG TABS 1-2 FOUR TIMES A DAY, PRN HYDROCODONE-ACETAMINOPHEN 97054728618 No Longer Active Prosper Arenas MD Active SIMVASTATIN 80 MG TABS 1/2 tablet daily SIMVASTATIN 96130608576 Active Prosper Arenas MD Active METOPROLOL TARTRATE 25 MG TABS 1/2 tablet twice a day METOPROLOL TARTRATE 77866374420 Active Prosper Arenas MD Active ASPIRIN 81 MG TAB 1 tablet by mouth daily ASPIRIN 17184579247 Active Prosper Arenas MD Active OMEPRAZOLE 20 MG CPDR 1 qd OMEPRAZOLE 57473229157 Active DARCIE Miller Active DOXYCYCLINE HYCLATE 100 MG CAPS take one capsule by mouth twice daily for ten days DOXYCYCLINE HYCLATE 88244312674 No Longer Active Mekhi Dukes MD Active DOXYCYCLINE HYCLATE 100 MG CAPS take one capsule by mouth twice daily for ten days DOXYCYCLINE HYCLATE 100 MG CAPS 9398771 DOXYCYCLINE HYCLATE Inactive HYDROCODONE-ACETAMINOPHEN 5-500 MG TABS [...] days 2014 ZITHROMAX Z-EDDIE 250 MG TABS 8938308 AZITHROMYCIN Inactive REVLIMID 25 MG CAPS one capsule daily for 21 days then off for 7 days 2014 REVLIMID 25 MG CAPS LENALIDOMIDE Inactive TRAZODONE HCL 50 MG TAB three tablets at bed time TRAZODONE HCL 50 MG TAB 087217 TRAZODONE HCL Inactive HALOPERIDOL 0.5 MG TABS one tablet three times a day HALOPERIDOL 0.5 MG TABS 641595 HALOPERIDOL Inactive BENZONATATE 200 MG CAPS 1 tab, 2-3 times a day BENZONATATE 200 MG CAPS 556426 BENZONATATE Inactive MECLIZINE HCL 25 MG TABS 1 daily needed for dizziness MECLIZINE HCL 25 MG TABS 768252 MECLIZINE HCL Inactive Immunizations Vaccine Administration Date [...] HGBA1C - Chemistry sodium, serum 135 mmol/L 180-596 8156/09/17 potassium, serum 4.0 mmol/L 3.5-5.2 chloride, serum 98 mmol/L 98-107 carbon dioxide, venous blood 29.8 mmol/L 21.0-32.0 blood glucose 180 mg/dL 65-110 calcium, serum 8.7 mg/dL 8.5-10.1 urea nitrogen, blood 17 mg/dL 7-18 creatinine, serum 2.00 mg/dL 0.55-1.30 hemoglobin A1C, blood, as % of total hemoglobin 7.4 % 4.3-6.0 Lab Report: CBC, Basic Metabolic Panel, HGBA1C - Chemistry sodium, serum 137 mmol/L 305-002 8026/10/23 potassium, serum 3.5 mmol/L 3.5-5.2 chloride, serum [...] mg/dL Encounters Code Encounter Date Provider Facility CPT-64868 Level 4 Est. Patient 11:05:10 [facility] CPT-37042 Level 3 Est. Patient 11:08:[address] [facility] CPT-50556 Level 4 Est. Patient 10:43:59 CDT Prosper Arenas MD [facility] CPT-86455 Level 3 Est. Patient 10:51:[address] [facility] CPT-46658 Level 3 Est. Patient 10:20:31 CDT Maliheh Ziglari [facility] CPT-14233 Level 3 Est. Patient 17:08:45 CDT Moy Garcia [facility] CPT-86778 Level 2 Est. Patient 13:54:36 CDT Augustina Mata APRN [facility] CPT-22091 Level 3 Est. Patient 12:00:42 CDT Prosper Arenas MD [facility] CPT-36894 Level 3 Est. Patient 09:57:28 MID LEVEL CLINICIAN Moy Garcia [facility] CPT-11337 Level 3 Est. Patient 11:41:19 MID LEVEL CLINICIAN [facility] Level 4 Est. Patient 17:07:35 MID LEVEL CLINICIAN [facility] CPT-91889 Level 5 Est. Patient 14:33:32 [facility]PT-40409 Level 3 Est. Patient 12:25:35 CDT Prosper Arneas MD [facility] Procedures Code Procedure Name Date Entry Date Standard Description CPT-000 Give Appropriate Flu Vaccine 10:44:04 CDT CPT-000 Give Pneumovax 10:44:03 CDT CPT-94293 Port a cath flush 17:04:43 CDT CPT-09179 Prevnar 13 11:19:17 CDT CPT-49304 Fluzone Quadrivalent preservative free (>=3yrs.) 11:19: 17 CDT CPT-31432 Immunization Each Additional Inj 11:19:17 CDT CPT-84572 Immunization Single Admin 11:19:17 CDT CPT-33599 Port a cath flush 13:28:22 CDT CPT-TCMM Transitional Care Mgmt-Moderate 13:40:15 CDT CPT-G0008 Administration of Influenza Virus Vaccine 13:59:20 CDT CPT-38420 Fluzone High-Dose Intramuscular Suspension 13:59:20 CDT CPT-91125 Venipuncture Draw Fee 09:56:19 CDT CPT-OV Office Visit 15:46:10 CDT
--- OUTSIDE RECORDS SUMMARY | 2017-08-25 21:59 | XMS REPORT | Clinical Summary ---
Author Author Admin, IWONA Organization [facility] Address Unknown Phone Unavailable Allergies, Adverse Reactions, Alerts Allergy Name Reaction Description Start Date Severity Status Provider ERYTHROMYCIN Stomach cramps Moderate Active Prosper Arenas MD CODEINE Critical Active Maliheh Ziglari RN TRANSPORT DARVOCET Critical Active Maliheh Ziglari RN TRANSPORT LEVAQUIN Critical Active Maliheh Ziglari RN TRANSPORT Conditions or Problems Problem Name Problem Code [...] type II, uncontrolled 250.02 Active Maliheh Ziglari RN TRANSPORT Diabetes mellitus without mention of complication, type [...] then off for 7 days 2014 LENALIDOMIDE 46893600880 No Longer Active Maliheh Ziglari RN TRANSPORT Active ACCU-CHEK JOANNA PLUS STRP check blood sugars 3x a day GLUCOSE BLOOD 84091707507 Active Maliheh Ziglari RN TRANSPORT Active NOVOLOG FLEXPEN 100 UNIT/ML SOPN Take 15 units with each meal, add 2u/50 for blood sugars above 150 INSULIN ASPART 74413856383 Active Maliheh Ziglari RN TRANSPORT Active ZITHROMAX Z-EDDIE 250 MG TABS 2 today, then 1 daily for 4 days 2014 AZITHROMYCIN 24262750539 No Longer Active Augustina Rangelann DOHERTY Active BENZONATATE 200 MG CAPS 1 tab, 2-3 times a day BENZONATATE 60026771080 Active Prosper Arenas MD Active LANTUS SOLOSTAR 100 UNIT/ML SOLN 30 units at 4-5pm daily INSULIN GLARGINE 77307872663 Active Maliheh Ziglari RN TRANSPORT Active NOVOLIN R RELION 100 UNIT/ML INJ SOLN 30- 40 units each meal sliding scale INSULIN REGULAR HUMAN 14393717097 No Longer Active Maliheh Ziglari RN TRANSPORT Active LISINOPRIL 5 MG TABS 1 daily LISINOPRIL 70358149581 Active Prosper Arenas MD Active CALCIUM 500/D 500-200 MG-UNIT TABS one tablet daily CALCIUM CARBONATE- VITAMIN D 39147604612 Active Prosper Arenas MD Active HYDROCHLOROTHIAZIDE 25 MG TABS 1 tablet by mouth daily HYDROCHLOROTHIAZIDE 50813467796 Active Prosper Arenas MD Active HYDROCODONE-ACETAMINOPHEN 5-500 MG TABS 1-2 FOUR TIMES A DAY, PRN HYDROCODONE-ACETAMINOPHEN 61398413388 No Longer Active Prosper Arenas MD Active TRAZODONE HCL 50 MG TAB three tablets at bed time TRAZODONE HCL 77919361363 Active Prosper Arenas MD Active SIMVASTATIN 80 MG TABS 1/2 tablet daily SIMVASTATIN 38737998314 Active Prosper Arenas MD Active METOPROLOL TARTRATE 25 MG TABS 1/2 tablet twice a day METOPROLOL TARTRATE 44365062271 Active Prosper Arenas MD Active HALOPERIDOL 0.5 MG TABS one tablet three times a day HALOPERIDOL 00669564573 Active Prosper Arenas MD Active ASPIRIN 81 MG TAB 1 tablet by mouth daily ASPIRIN 77211401200 Active Prosper Arenas MD Active OMEPRAZOLE 20 MG CPDR 1 qd OMEPRAZOLE 95854280869 Active DARCIE Miller Active DOXYCYCLINE HYCLATE 100 MG CAPS take one capsule by mouth twice daily for ten days DOXYCYCLINE HYCLATE 36797115556 No Longer Active Mekhi Dukes MD Active DOXYCYCLINE HYCLATE 100 MG CAPS take one capsule by mouth twice daily for ten days DOXYCYCLINE HYCLATE 100 MG CAPS 149581 DOXYCYCLINE HYCLATE Inactive HYDROCODONE-ACETAMINOPHEN 5-500 MG TABS [...] days 2014 ZITHROMAX Z-EDDIE 250 MG TABS 1612504 AZITHROMYCIN Inactive REVLIMID 25 MG CAPS one [...] Description Chart Maintenance: Outside labs entered on [employer] - Chemistry sodium, serum 134 mmol/L potassium, [...] U/L Chart Maintenance: Outside labs entered on [employer] - Hematology leukocyte count, blood 5.1 10*3/mm3 hemoglobin, blood 14.7 g/dL platelet count 190 10*3/mm3 leukocyte count, blood 5.3 10*3/mm3 hemoglobin, blood 14.0 g/dL platelet count 240 10*3/mm3 Lab Report: Basic Metabolic Panel - Chemistry sodium, serum 137 mmol/L 436-719 4498/08/22 potassium, serum 4.0 mmol/L 3.5-5.2 chloride, serum 100 mmol/L 98-107 carbon dioxide, venous blood 27.9 mmol/L 21.0-32.0 blood glucose 109 mg/dL 65-110 calcium, serum 9.0 mg/dL 8.5-10.1 urea nitrogen, blood 15 mg/dL 7-18 creatinine, serum 2.00 mg/dL 0.60-1.30 Lab Report: Basic Metabolic Panel, HGBA1C - Chemistry sodium, serum 134 mmol/L 197-081 5864/01/27 potassium, serum 4.1 mmol/L 3.5-5.2 chloride, serum 96 mmol/L 98-107 carbon dioxide, venous blood 35.1 mmol/L 21.0-32.0 blood glucose 346 mg/dL 65-110 calcium, serum 8.4 mg/dL 8.5-10.1 urea nitrogen, blood 18 mg/dL 7-18 creatinine, serum 2.00 mg/dL 0.60-1.30 hemoglobin A1C, blood, as % of total hemoglobin 8.4 % 4.3-6.0 Lab Report: CBC W/DIFF, Comp. Metabolic Panel - Chemistry sodium, serum 137 mmol/L 707-259 1966/01/21 potassium, serum 4.1 mmol/L 3.5-5.2 chloride, serum 99 mmol/L 98-107 carbon dioxide, venous blood 30.9 mmol/L 21.0-32.0 blood glucose 303 mg/dL 65-110 urea nitrogen, blood 19 mg/dL 7-18 creatinine, serum 2.00 mg/dL 0.60-1.30 alanine aminotransferase (SGPT), serum 84 U/L 12-78 aspartate aminotransferase (SGOT), serum 41 U/L 15-37 calcium, serum 7.8 mg/dL 8.5-10.1 bilirubin, serum, total 0.50 mg/dL 0.00-1.00 sodium, serum 131 mmol/L 505-535 0566/03/18 potassium, serum 4.4 mmol/L 3.5-5.2 chloride, serum 95 mmol/L 98-107 carbon dioxide, venous blood 19.0 mmol/L 21.0-32.0 blood glucose 297 mg/dL 65-110 urea nitrogen, blood 19 mg/dL 7-18 creatinine, serum 1.70 mg/dL 0.60-1.30 alanine aminotransferase (SGPT), serum 184 U/L 12-78 aspartate aminotransferase (SGOT), serum 177 U/L 15-37 calcium, serum 7.8 mg/dL 8.5-10.1 bilirubin, serum, total 0.50 mg/dL 0.00-1.00 sodium, serum 135 mmol/L 514-838 5629/11/26 potassium, serum 4.4 mmol/L 3.5-5.2 chloride, serum [...] % 11.6-14.8 platelet count 172 10^3/MM^3 10*3/mm3 039-991 0316/01/21 leukocyte count, blood 6.3 10^3/MM^3 10*3/mm3 4.6-10.2 [...] % 11.6-14.8 platelet count 137 10^3/MM^3 10*3/mm3 042-235 0223/03/18 leukocyte count, blood 4.8 10^3/MM^3 10*3/mm3 4.6-10.2 [...] Ag - Chemistry sodium, serum 131 mmol/L 561-627 6432/10/13 potassium, serum 3.6 mmol/L 3.5-5.2 chloride, serum [...] 0.60 mg/dL 0.00-1.00 cholesterol, serum 98 mg/dL 646-732 2577/10/13 triglyceride, serum, fasting 125 mg/dL 30-200 HDL [...] mg/dL Encounters Code Encounter Date Provider Facility CPT-75861 Level 3 Est. Patient 10:20:31 CDT [facility] CPT-06289 Level 3 Est. Patient 17:08:45 CDT [facility] CPT-18194 Level 2 Est. Patient 13:54:36 CDT Augustina Mata APRN [facility] CPT-88400 Level 3 Est. Patient 12:00:42 CDT Prosper Arenas MD [facility] CPT-86748 Level 3 Est. 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 Patient 11:41:19 SENIOR TECHNICAL WRITER [facility] CPT-95891 Level 4 Est. Patient 17:07:35 SENIOR TECHNICAL WRITER [facility] CPT-99558 Level 5 Est. Patient 14:33:32 CDT [facility] CPT-47435 Level 3 Est. Patient 12:25:35 CDT Prosper Arenas MD [facility] Procedures Code Procedure Name Date Entry Date Standard Description CPT-49523 Port a cath flush 13:28:22 CDT CPT-TCMM Transitional Care Mgmt-Moderate 13:40:15 CDT CPT-G0008 Administration of Influenza Virus Vaccine 13:59:20 CDT CPT-71492 Fluzone High-Dose Intramuscular Suspension 13:59:20 CDT CPT-61946 Venipuncture Draw Fee 09:56:19 CDT CPT-OV Office Visit 15:46:10 CDT
--- OUTSIDE RECORDS SUMMARY | 2017-08-25 21:59 | XMS REPORT | Clinical Summary ---
Author Author Admin, IWONA Organization [employer] Address Unknown Phone Unavailable Allergies, Adverse Reactions, Alerts Allergy Name Reaction Description Start Date Severity Status Provider ERYTHROMYCIN Stomach cramps Moderate Active Prosper Arenas MD CODEINE Critical Active Maliheh Ziglari MEAT HANGER DARVOCET Critical Active Maliheh Ziglari MEAT HANGER LEVAQUIN Critical Active Maliheh Ziglari MEAT HANGER Conditions or Problems Problem Name Problem Code [...] type II, uncontrolled 250.02 Active Maliheh Ziglari MEAT HANGER Diabetes mellitus without mention of complication, type [...] or unspecified type, not stated as uncontrolled 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 INSULIN GLARGINE 83625717581 Active Maliheh Ziglari MEAT HANGER Active MECLIZINE HCL 25 MG TABS 1 daily needed for dizziness MECLIZINE HCL 91994591206 No Longer Active Maleh Ziglari MEAT HANGER Active ACCU-CHEK JOANNA PLUS STRP check blood sugars 3x a day GLUCOSE BLOOD 55555858735 Active Maliheh Ziglari MEAT HANGER Active NOVOLOG FLEXPEN 100 UNIT/ML SOPN Take 25 units with each meal, add 2u/50 for blood sugars above 150. INSULIN ASPART 05159700193 [facility] MEAT HANGER Active BENZONATATE 200 MG CAPS 1 tab, 2-3 times a day BENZONATATE 75928788639 No Longer Active Maleh Ziglari MEAT HANGER Active HALOPERIDOL 0.5 MG TABS one tablet three times a day HALOPERIDOL 34388629217 No Longer Active Maleh Ziglari MEAT HANGER Active TRAZODONE HCL 50 MG TAB three tablets at bed time TRAZODONE HCL 74502743308 No Longer Active [facility] Ziglari MEAT HANGER Active REVLIMID 25 MG CAPS one capsule daily for 21 days then off for 7 days 2014 LENALIDOMIDE 92488672157 No Longer [facility] Ziglari MEAT HANGER Active ZITHROMAX Z-EDDIE 250 MG TABS 2 today, then 1 daily for 4 days 2014 AZITHROMYCIN 70599602868 No Longer Active Augustina Amritgunnar ARCHITECT MANAGER Active NOVOLIN R RELION 100 UNIT/ML INJ SOLN 30- 40 units each meal sliding scale INSULIN REGULAR HUMAN 02272329669 No Longer Active Maleh Ziglari MEAT HANGER Active LISINOPRIL 5 MG TABS 1 daily LISINOPRIL 39804387409 Active Prosper Arenas MD Active CALCIUM 500/D 500-200 MG-UNIT TABS one tablet daily CALCIUM CARBONATE- VITAMIN D 00312205539 Active Prosper Arenas MD Active HYDROCHLOROTHIAZIDE 25 MG TABS 1 tablet by mouth daily HYDROCHLOROTHIAZIDE 00104377105 Active Prosper Arenas MD Active HYDROCODONE-ACETAMINOPHEN 5-500 MG TABS 1-2 FOUR TIMES A DAY, PRN HYDROCODONE-ACETAMINOPHEN 20598377279 No Longer Active Prosper Arenas MD Active SIMVASTATIN 80 MG TABS 1/2 tablet daily SIMVASTATIN 82012879015 Active Prosper Arenas MD Active METOPROLOL TARTRATE 25 MG TABS 1/2 tablet twice a day METOPROLOL TARTRATE 09927914855 Active Prosper Arenas MD Active ASPIRIN 81 MG TAB 1 tablet by mouth daily ASPIRIN 78906800980 Active Prosper Arenas MD Active OMEPRAZOLE 20 MG CPDR 1 qd OMEPRAZOLE 84039634882 Active DARCIE Miller Active DOXYCYCLINE HYCLATE 100 MG CAPS take one capsule by mouth twice daily for ten days DOXYCYCLINE HYCLATE 20602077067 No Longer Active Mekhi Dukes MD Active DOXYCYCLINE HYCLATE 100 MG CAPS take one capsule by mouth twice daily for ten days DOXYCYCLINE HYCLATE 100 MG CAPS 1140487 DOXYCYCLINE HYCLATE Inactive HYDROCODONE-ACETAMINOPHEN 5-500 MG TABS [...] days 2014 ZITHROMAX Z-EDDIE 250 MG TABS 0956265 AZITHROMYCIN Inactive REVLIMID 25 MG CAPS one capsule daily for 21 days then off for 7 days 2014 REVLIMID 25 MG CAPS LENALIDOMIDE Inactive TRAZODONE HCL 50 MG TAB three tablets at bed time TRAZODONE HCL 50 MG TAB 271368 TRAZODONE HCL Inactive HALOPERIDOL 0.5 MG TABS one tablet three times a day HALOPERIDOL 0.5 MG TABS 315622 HALOPERIDOL Inactive BENZONATATE 200 MG CAPS 1 tab, 2-3 times a day BENZONATATE 200 MG CAPS 058389 BENZONATATE Inactive MECLIZINE HCL 25 MG TABS 1 daily needed for dizziness MECLIZINE HCL 25 MG TABS 543472 MECLIZINE HCL Inactive Immunizations Vaccine Administration Date [...] 0.00-4.00 Office Visit: Diabetes Visit - Chemistry LDL target level 100 mg/dL HDL cholesterol, serum, target level 35 mg/dL triglyceride, target level 200 mg/dL cholesterol, target level 200 mg/dL cholesterol, target level 200 mg/dL triglyceride, target level 200 mg/dL HDL cholesterol, serum, target level 35 mg/dL LDL target level 100 mg/dL cholesterol, target level 200 mg/dL triglyceride, target level 200 mg/dL HDL cholesterol, serum, target level 35 mg/dL LDL target level 100 mg/dL Encounters Code Encounter Date Provider Facility CPT-57100 Level 3 Est. Patient 11:18:32 CDT [facility] CPT-11480 Level 4 Est. Patient 11:05:10 CDT [facility] CPT-20095 Level 3 Est. 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 Patient 10:43:59 CDT Prosper Arenas MD [facility] CPT-65442 Level 3 Est. Patient 10:51:19 CDT [facility] CPT-18672 Level 3 Est. Patient 10:20:31 CDT [facility] CPT-54991 Level 3 Est. Patient 17:08:45 CDT [facility] CPT-19262 Level 2 Est. Patient 13:54:36 CDT Augustina Mata APRN [facility] CPT-38638 Level 3 Est. Patient 12:00:42 CDT Prosper Arenas MD [facility] CPT-52296 Level 3 Est. Patient 09:57:28 RADIATION CONTROL HEALTH PHYSICIST [facility] CPT-55860 Level 3 Est. Patient 11:41:19 [facility] CPT-39502 Level 4 Est. Patient 17:07:35 [facility]OL [facility]ALTH PHYSIC[facility] CPT-39066 Level 5 Est. Patient 14:33:32 [facility] CPT-85117 Level 3 Est. Patient 12:25:35 CDT Prosper Arenas MD [facility] Procedures Code Procedure Name Date Entry Date Standard Description CPT-69660 HGBA1C - LAB USE ONLY 09:42:47 RADIATION CONTROL HEALTH PHYSICIST CPT-26785 TPSA - LAB USE ONLY 09:42:46 RADIATION CONTROL HEALTH PHYSICIST CPT-12155 Venipuncture Draw Fee 09:42:46 RADIATION CONTROL HEALTH PHYSICIST CPT-60916 Port a cath flush 13:33:18 RADIATION CONTROL HEALTH PHYSICIST CPT-44931 First Vx - Ix admin for Medicare patients 10:42:57 RADIATION CONTROL HEALTH PHYSICIST CPT-91580 Fluzone Preservative Free Intramuscular Suspension 10:42 :57 RADIATION CONTROL HEALTH PHYSICIST CPT-G0438 Initial Annual Wellness Exam 10:13:55 RADIATION CONTROL HEALTH PHYSICIST CPT-000 Give Appropriate Flu Vaccine 10:44:04 CDT CPT-000 Give Pneumovax 10:44:03 CDT CPT-60493 Port a cath flush 17:04:43 CDT CPT-57799 Prevnar 13 11:19:17 CDT CPT-63002 Fluzone Quadrivalent preservative free (>=3yrs.) 11:19: 17 CDT CPT-45607 Immunization Each Additional Inj 11:19:17 CDT CPT-96461 Immunization Single Admin 11:19:17 CDT CPT-48563 Port a cath flush 13:28:22 CDT CPT-TCMM Transitional Care Mgmt-Moderate 13:40:15 CDT CPT-G0008 Administration of Influenza Virus Vaccine 13:59:20 CDT CPT-75208 Fluzone High-Dose Intramuscular Suspension 13:59:20 CDT CPT-86370 Venipuncture Draw Fee 09:56:19 CDT CPT-OV Office Visit 15:46:10 CDT
--- OUTSIDE RECORDS SUMMARY | 2017-08-25 22:00 | XMS REPORT | Clinical Summary ---
Author Author Admin, [place] Organization [facility] Address Unknown Phone Unavailable Allergies, Adverse Reactions, Alerts Allergy Name Reaction Description Start Date Severity Status Provider ERYTHROMYCIN Stomach cramps Moderate Active Prosper Arenas MD CODEINE Critical Active Maliheh Ziglari BENEFITS ANALYST DARVOCET Critical Active Maliheh Ziglari BENEFITS ANALYST LEVAQUIN Critical Active Maliheh Ziglari BENEFITS ANALYST Conditions or Problems Problem Name Problem Code Onset Date Status Entry Date Provider Comment Standard Description Annotate Diabetes, Type 2 250.00 Resolved Tami Miller quarter seamer mellitus without mention of complication, type II [...] type II, uncontrolled 250.02 Active Maliheh Rodrigoglari BENEFITS ANALYST Diabetes mellitus without mention of complication, [...] with hyperglycemia 250.00 Active 03/21 Maliheh Ziglari BENEFITS ANALYST Diabetes mellitus without mention of complication, type II or unspecified type, not stated as uncontrolled assisted use of insulin treatment V58.67 Active Luxiheh Rodrigoglari BENEFITS ANALYST Long-term (current) use of insulin Diabetes mellitus, type II with hypoglycemia 250.80 Active 07/22 Maliheh Ziglari BENEFITS ANALYST Diabetes mellitus with other specified manifestations, type II or unspecified type, not stated as uncontrolled 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 Maliheh Ziglari BENEFITS ANALYST Diabetes mellitus with renal manifestations, type II or unspecified type, not stated as uncontrolled Wellness exam V70.0 Active Dee Palmer APRN Routine general medical examination at a health care facility Fitting and adjustment of vascular catheter V58.81 Active 02/06 Dee Palmer APRN Encounter for fitting and adjustment of vascular catheter Unawareness of hypoglycemia in diabetes mellitus, type II 250.80 Active Maliheh Rodrigoglari BENEFITS ANALYST Diabetes mellitus with other specified manifestations, [...] specified as recurrent) Gastritis Inactive Maliheh Ziglari BENEFITS ANALYST Unspecified gastritis and gastroduodenitis, without mention [...] 1-2 every 4-6 hrs prn 02/25 HYDROCODONE-ACETAMINOPHEN 04470176747 Active Marina Messina APRN Active ASPIRIN 81 MG ORAL TABLET 1 tablet by mouth daily ASPIRIN 20342384920 No Longer Active Marina Messina APRN Active SIMVASTATIN 80 MG ORAL TABLET 1/2 tablet daily SIMVASTATIN 60424647675 No Longer Active Mekhi Dukes MD Active OMEPRAZOLE 20 MG ORAL CAPSULE DELAYED RELEASE 1 qd OMEPRAZOLE 88534098650 No Longer Active Mekhi Dukes MD Active METOPROLOL TARTRATE 25 MG ORAL TABLET 1/2 tablet twice a day METOPROLOL TARTRATE 09124689533 No Longer Active Mekhi Dukes MD Active LISINOPRIL 5 MG ORAL TABLET 1 daily LISINOPRIL 89265185300 No Longer Active Mekhi Dukes MD Active NOVOLOG FLEXPEN 100 UNIT/ML SUBCUTANEOUS SOLUTION PEN-INJECTOR Take 8 units with each meal, add 1u/50 for blood sugars above 150. INSULIN ASPART 71434998464 Active Maliheh Ziglari BENEFITS ANALYST Active GABAPENTIN 300 MG ORAL CAPSULE 1 tab BID GABAPENTIN 75996996947 Active Tami Miller RN Active PREDNISONE 20 MG ORAL TABLET Take 2 daily for 3 days and then 1 daily for 3 days PREDNISONE 63455443490 No Longer Active Maliheh Ziglari BENEFITS ANALYST Active BENZONATATE 200 MG ORAL CAPSULE Take 1 tablet 3 times a day as needed for cough BENZONATATE 31297022481 No Longer Active Prosper Arenas MD Active HYDROCHLOROTHIAZIDE 25 MG ORAL TABLET 1 tablet by mouth daily HYDROCHLOROTHIAZIDE 45862772836 No Longer Active Prosper Arenas MD Active ACCU-CHEK JOANNA PLUS IN VITRO STRIP check blood sugars 5x a day, before each meal and bedtime and 15 minutes after treating a low blood. sugar GLUCOSE BLOOD 33709210188 Active Maleh Ziglari BENEFITS ANALYST Active LANTUS SOLOSTAR 100 UNIT/ML SUBCUTANEOUS SOLUTION PEN-INJECTOR Take 40 units at 7-8pm daily INSULIN GLARGINE 87060162706 Active Maliheh Ziglari BENEFITS ANALYST Active MECLIZINE HCL 25 MG ORAL TABLET 1 daily needed for dizziness 2015 MECLIZINE HCL 52413746412 No Longer Active Maleh Ziglari BENEFITS ANALYST Active BENZONATATE 200 MG ORAL CAPSULE 1 tab, 2-3 times a day BENZONATATE 44410319945 No Longer Active Maliheh Ziglari BENEFITS ANALYST Active HALOPERIDOL 0.5 MG ORAL TABLET one tablet three times a day HALOPERIDOL 51076232246 No Longer Active Maliheh Ziglari BENEFITS ANALYST Active TRAZODONE HCL 50 MG ORAL TABLET three tablets at bed time TRAZODONE HCL 54376985391 No Longer Active Maliheh Ziglari BENEFITS ANALYST Active REVLIMID 25 MG ORAL CAPSULE one capsule daily for 21 days then off for 7 days LENALIDOMIDE 64831658433 No Longer Active Maliheh Ziglari BENEFITS ANALYST Active ZITHROMAX Z-EDDIE 250 MG ORAL TABLET 2 today, then 1 daily for 4 days AZITHROMYCIN 94723391881 No Longer Active Augustina Mata ICE CREAM SERVER Active NOVOLIN R RELION 100 UNIT/ML INJECTION SOLUTION 30- 40 units each meal sliding scale INSULIN REGULAR HUMAN 15724999281 No Longer Active Moy DURANTP Active CALCIUM 500/D 500-200 MG-UNIT ORAL TABLET one tablet daily CALCIUM CARBONATE-VITAMIN D 39445217468 Active Prosper Arenas MD Active HYDROCODONE-ACETAMINOPHEN 5-500 MG ORAL TABLET 1-2 FOUR TIMES A DAY, PRN 2010 HYDROCODONE-ACETAMINOPHEN 14914509275 No Longer Active Prosper Arenas MD Active DOXYCYCLINE HYCLATE 100 MG ORAL CAPSULE take one capsule by mouth twice daily for ten days DOXYCYCLINE HYCLATE 26647571750 No Longer Active Mekhi Dukes MD Active DOXYCYCLINE HYCLATE 100 MG ORAL CAPSULE take one capsule by mouth twice daily for ten days DOXYCYCLINE HYCLATE 100 MG ORAL CAPSULE 9149868 DOXYCYCLINE HYCLATE Inactive HYDROCODONE-ACETAMINOPHEN 5-500 MG ORAL TABLET 1-2 FOUR TIMES A DAY, PRN 2010 HYDROCODONE-ACETAMINOPHEN 5-500 MG ORAL TABLET 901162 HYDROCODONE-ACETAMINOPHEN Inactive NOVOLIN R RELION 100 UNIT/ML INJECTION SOLUTION 30- 40 units each meal sliding scale NOVOLIN R RELION 100 UNIT/ML INJECTION SOLUTION INSULIN REGULAR HUMAN Inactive ZITHROMAX Z-EDDIE 250 MG ORAL TABLET 2 today, then 1 daily for 4 days ZITHROMAX Z-EDDIE 250 MG ORAL TABLET 850605 AZITHROMYCIN Inactive REVLIMID 25 MG ORAL CAPSULE one capsule daily for 21 days then off for 7 days REVLIMID 25 MG ORAL CAPSULE LENALIDOMIDE Inactive TRAZODONE HCL 50 MG ORAL TABLET three tablets at bed time TRAZODONE HCL 50 MG ORAL TABLET 461064 TRAZODONE HCL Inactive HALOPERIDOL 0.5 MG ORAL TABLET one tablet three times a day HALOPERIDOL 0.5 MG ORAL TABLET 837604 HALOPERIDOL Inactive BENZONATATE 200 MG ORAL CAPSULE 1 tab, 2-3 times a day BENZONATATE 200 MG ORAL CAPSULE 296758 BENZONATATE Inactive MECLIZINE HCL 25 MG ORAL TABLET 1 daily needed for dizziness 2015 MECLIZINE HCL 25 MG ORAL TABLET 459249 MECLIZINE HCL Inactive HYDROCHLOROTHIAZIDE 25 MG ORAL TABLET 1 tablet by mouth daily HYDROCHLOROTHIAZIDE 25 MG ORAL TABLET 793896 HYDROCHLOROTHIAZIDE Inactive PREDNISONE 20 MG ORAL TABLET Take 2 daily for 3 days and then 1 daily for 3 days PREDNISONE 20 MG ORAL TABLET 137421 PREDNISONE Inactive LISINOPRIL 5 MG ORAL TABLET 1 daily LISINOPRIL 5 MG ORAL TABLET 652043 LISINOPRIL Inactive METOPROLOL TARTRATE 25 MG ORAL TABLET 1/2 tablet twice a day METOPROLOL TARTRATE 25 MG ORAL TABLET 323184 METOPROLOL TARTRATE Inactive OMEPRAZOLE 20 MG ORAL CAPSULE DELAYED RELEASE 1 qd OMEPRAZOLE 20 MG ORAL CAPSULE DELAYED RELEASE 046030 OMEPRAZOLE Inactive SIMVASTATIN 80 MG ORAL TABLET 1/2 tablet daily SIMVASTATIN 80 MG ORAL TABLET 352387 SIMVASTATIN Inactive ASPIRIN 81 MG ORAL TABLET 1 tablet by mouth daily ASPIRIN 81 MG ORAL TABLET 156353 ASPIRIN Inactive BENZONATATE 200 MG ORAL CAPSULE Take 1 tablet 3 times a day as needed for cough BENZONATATE 200 MG ORAL CAPSULE 202336 BENZONATATE Inactive Immunizations Vaccine Administration Date Value [...] W/DIFF - Chemistry sodium, serum 137 mmol/L 201-000 9591/08/16 carbon dioxide, venous blood 26.3 mmol/L 21.0-32.0 [...] 4.3-6.0 Lab Report: Lipid Panel, Glucose- [facility] - Chemistry cholesterol, serum 115 mg/dL 429-938 9057/08/18 triglyceride, serum, fasting 89 mg/dL 30-200 HDL cholesterol, serum 46 mg/dL 32-60 LDL cholesterol, serum 51 mg/dL 0-130 blood glucose 104 mg/dL 65-110 Lab Report: LIPID PANEL- [facility] - Chemistry cholesterol, serum 156 mg/dL 269-798 4916/02/20 HDL cholesterol, serum 52 mg/dL > OR=40 [...] mg/dL Encounters Code Encounter Date Provider Facility CPT-81500 Level 3 Est. Patient 10:53:[address] [facility] Level 3 Est. Patient 17:11:55 INORGANIC CHEMICAL TECHNICIAN Ismael Gracia MD [facility] CPT-00657 Level 4 Est. Patient 16:29:19 CDT Mekhi Dukes MD [facility] CPT-50410 Level 3 New Patient 17:05:24 CDT Ismael Gracia MD [facility] CPT-21096 Level 2 Est. Patient 15:43:17 CDT Mekhi Dukes MD [facility] CPT-84673 Level 3 Est. Patient 09:30:[address] [facility] CPT-65290 Level 3 Est. Patient 10:00:14 CDT Mekhi Dukes MD [facility] CPT-89186 Level 3 Est. Patient 12:24:[address] [facility]41750 Level 3 Est. Patient 14:34:57 CDT Prosper Arenas MD [facility] CPT-81334 Level 3 New Patient 15:44:53 INORGANIC CHEMICAL TECHNICIAN Mekhi Dukes MD [facility] CPT-88087 Level 3 Est. Patient 14:53:34 INORGANIC CHEMICAL TECHNICIAN Prosper Arenas MD [facility] CPT-12267 Level 4 Est. Patient 10:05:41 INORGANIC CHEMICAL TECHNICIAN Moy Garcia [facility] CPT-81266 Level 3 Est. Patient 11:18:32 CDT Moy Garcia [facility] CPT-10610 Level 4 Est. Patient 11:05:10 CDT Moy Garcia [facility] CPT-09778 Level 3 Est. Patient 11:08:27 INORGANIC CHEMICAL TECHNICIAN Moy Garcia [facility] CPT-42918 Level 4 Est. Patient 10:43:59 CDT Prosper Arenas MD [facility]-45823 Level 3 Est. Patient 10:51:19 CDT Moy Garcia [facility] CPT-57561 Level 3 Est. Patient 10:20:31 CDT Moy Garcia [facility] CPT-37058 Level 3 Est. Patient 17:08:45 CDT Moy Garcia [facility] CPT-50414 Level 2 Est. Patient 13:54:36 CDT Augustina Juan Carlostalagunnar [facility] CPT-50679 Level 3 Est. Patient 12:00:42 CDT Propser Arenas MD [facility] CPT-71802 Level 3 Est. Patient 09:57:28 INORGANIC CHEMICAL TECHNICIAN Moy Garcia [facility] CPT-69152 Level 3 Est. Patient 11:41:19 INORGANIC CHEMICAL TECHNICIAN Moy Garcia [facility] CPT-64390 Level 4 Est. Patient 17:07:35 INORGANIC CHEMICAL TECHNICIAN Moy Garcia [facility] CPT-43883 Level 5 Est. Patient 14:33:32 CDT Moy Garcia [facility] CPT-27380 Level 3 Est. Patient 12:25:35 CDT Prosper Arenas MD [facility] Procedures Code Procedure Name Date Entry Date Standard Description CPT-02453 Postop F/U Visit 14:44:45 INORGANIC CHEMICAL TECHNICIAN CPT-17952 Postop F/U Visit 17:20:20 INORGANIC CHEMICAL TECHNICIAN CPT-G0439 Subsequent Annual Wellness Exam 08:39:41 INORGANIC CHEMICAL TECHNICIAN CPT-000 Give Appropriate Flu Vaccine 10:13:55 INORGANIC CHEMICAL TECHNICIAN CPT-000 Give Immunizations Due 10:13:55 INORGANIC CHEMICAL TECHNICIAN CPT-16776 HGBA1C - LAB USE ONLY 09:42:47 INORGANIC CHEMICAL TECHNICIAN CPT-81229 TPSA - LAB USE ONLY 09:42:46 INORGANIC CHEMICAL TECHNICIAN CPT-43438 Venipuncture Draw Fee 09:42:46 INORGANIC CHEMICAL TECHNICIAN CPT-17938 Port a cath flush 13:33:18 INORGANIC CHEMICAL TECHNICIAN CPT-52506 First Vx - Ix admin for Medicare patients 10:42:57 INORGANIC CHEMICAL TECHNICIAN CPT-19686 Fluzone Preservative Free Intramuscular Suspension 10:42 :57 INORGANIC CHEMICAL TECHNICIAN CPT-G0438 Initial Annual Wellness Exam 10:13:55 INORGANIC CHEMICAL TECHNICIAN CPT-000 Give Appropriate Flu Vaccine 10:44:04 CDT CPT-000 Give Pneumovax 10:44:03 CDT CPT-93040 Port a cath flush 17:04:43 CDT CPT-63905 Prevnar 13 11:19:17 CDT CPT-53784 Fluzone Quadrivalent preservative free (>=3yrs.) 11:19: 17 CDT CPT-42125 Immunization Each Additional Inj 11:19:17 CDT CPT-98022 Immunization Single Admin 11:19:17 CDT CPT-75017 Port a cath flush 13:28:22 CDT CPT-TCMM Transitional Care Mgmt-Moderate 13:40:15 CDT CPT-G0008 Administration of Influenza Virus Vaccine 13:59:20 CDT CPT-32518 Fluzone High-Dose Intramuscular Suspension 13:59:20 CDT CPT-16174 Venipuncture Draw Fee 09:56:19 CDT CPT-OV Office Visit 15:46:10 CDT
--- OUTSIDE RECORDS SUMMARY | 2017-08-25 22:00 | XMS REPORT ---
Author [facility] Organization [facility] Address [address] [id number] Phone [phone] Care Team Providers Care Manager Utility Name Role Phone YOMI RAMESH MD PP [phone] YOMI RAMESH MD, PP [phone] Summary purpose TRANSITION OF CARE AUTO GENERATION [...] Relevant diagnostic tests and/or laboratory data RESULTS 00-73-428808:44:00 Progress Note PROGRESS NOTE 01/05/2015 08:44:59 S: [...] 01/05/2015 08:44:59/01/05/2015 11:15:35 [facility]: [facility] [address] [place] [address]<END HEADER> Chemistry 08-02-895931:40:00 Result Normal Range Units Sodium 138 134-145 [...] 10-20 Estimated GFR L 43 >=60 mL/min/1.7 93-39-870778:30:00 Result Normal Range Units Sodium 140 134-145 [...] % Lymph % L 9.5 20-40 % Crockett % 2.5 0-10.0 % Eos % 0.0 0-7.0 % Baso % 0.1 0-2 % Neutro # H 11.4 1.5-7.5 103/uL Lymph # 1.2 0.9-4.0 103/uL [place]ett # 0.3 0-0.8 103/uL Eos # 0.0 [...] 40-70 % Lymphs L 16.0 20-40 % Crockett 9.0 0-10 % Eos H 15.0 0-7 % Baso 1.0 0-2 % Radiology Results :40:00 Result Normal Range Units MPV H 11.0 7.3-10.4 FL 64-28-111161:30:00 Result Normal Range Units MPV H 10.9 7.3-10.4 FL History of procedures Procedure Code Code Type Description Date Performed Performing Physician 00031 CPT-4 COMPREHEN METABOLIC PANEL 01-04-2015 OSIRIS MUNGUIA 46711 CPT-4 DRAW BLOOD OFF VENOUS DEVICE 01-04-2015 YOMI RAMESH J7120 CPT-4 RINGERS LACTATE INFUSION 01-04-2015 OSIRIS MUNGUIA J7120 CPT-4 RINGERS LACTATE INFUSION 01-04-2015 OSIRIS MUNGUIA J2930 CPT-4 SOLU-MEDROL 125MG VIAL 01-04-2015 OSIRIS MUNGUIA J2930 CPT-4 SOLU-MEDROL 125MG VIAL 01-04-2015 OSIRIS MUNGUIA J1200 CPT-4 DIPHENHYDRAMINE HCL INJECTIO 01-04-2015 OSIRIS MUNGUIA J1200 CPT-4 DIPHENHYDRAMINE HCL INJECTIO 01-04-2015 OSIRIS MUNGUIA A9270 CPT-4 NON-COVERED ITEM OR SERVICE 01-04-2015 OSIRIS MUNGUIA A9270 CPT-4 NON-COVERED ITEM OR SERVICE 01-04-2015 OSIRIS MUNGUIA A9270 CPT-4 NON-COVERED ITEM OR SERVICE 01-04-2015 CHARU CEDEÑO A9270 CPT-4 NON-COVERED ITEM OR SERVICE 01-04-2015 CHARU CEDEÑO A9270 CPT-4 NON-COVERED ITEM OR SERVICE 01-04-2015 CHARU CEDEÑO A9270 CPT-4 NON-COVERED ITEM OR SERVICE 01-04-2015 CHARU CEDEÑO A9270 CPT-4 NON-COVERED ITEM OR SERVICE 01-04-2015 CHARU CEDEÑO J2930 CPT-4 SOLU-MEDROL 125MG VIAL 01-04-2015 YOMI RAMESH J1200 CPT-4 DIPHENHYDRAMINE HCL INJECTIO 01-04-2015 YOMI RAMESH 45104 CPT-4 COMPLETE CBC, AUTOMATED 01-04-2015 OSIRIS MUNGUIA 41437 CPT-4 BL SMEAR W/DIFF WBC COUNT 01-04-2015 OSIRIS MUNGUIA 63439 CPT-4 EMERGENCY DEPT VISIT 01-04-2015 OSIRIS MUNGUIA 35907 CPT-4 EMERGENCY DEPT VISIT 01-04-2015 OSIRIS MUNGUIA 50121 CPT-4 COMPLETE CBC W/AUTO DIFF WBC 01-05-2015 OSIRIS MUNGUIA 58697 CPT-4 COMPREHEN METABOLIC PANEL 01-05-2015 OSIRIS MUNGUIA 95212 CPT-4 DRAW BLOOD OFF VENOUS DEVICE 01-05-2015 YOMI RAMESH J7120 CPT-4 RINGERS LACTATE INFUSION 01-05-2015 OSIRIS MUNGUIA J2930 CPT-4 SOLU-MEDROL 125MG VIAL 01-05-2015 OSIRIS MUNGUIA J1200 CPT-4 DIPHENHYDRAMINE HCL INJECTIO 01-05-2015 OSIRIS MUNGUIA A9270 CPT-4 NON-COVERED ITEM OR SERVICE 01-05-2015 CHARU CEDEÑO J1642 CPT-4 INJ HEPARIN SODIUM PER 10 U 01-05-2015 YOMI RAMESH 94186 CPT-4 THER/PROPH/DIAG INJ, IV PUSH 01-04-2015 OSIRIS MUNGUIA 36145 CPT-4 TX/PRO/DX INJ NEW DRUG ADDON 01-04-2015 OSIRIS MUNGUIA G0378 CPT-4 HOSPITAL OBSERVATION PER HR 01-04-2015 YOMI RAMESH G0378 CPT-4 HOSPITAL OBSERVATION PER HR 01-04-2015 YOMI RAMESH G0378 CPT-4 HOSPITAL OBSERVATION PER HR 01-05-2015 YOMI RAMESH 89553 CPT-4 TX/PRO/DX INJ NEW DRUG ADDON 01-04-2015 YOMI RAMESH 70182 CPT-4 TX/PRO/DX INJ NEW DRUG DELI COOK 01-04-2015 YOMI RAMESH 39658 CPT-4 TX/PRO/DX INJ NEW DRUG DELI COOK 01-05-2015 YOMI RAMESH 77869 CPT-4 HYDRATE IV INFUSION, ADD-ON 01-04-2015 YOMI RAMESH 66608 CPT-4 HYDRATE IV INFUSION, ADD-ON 01-05-2015 YOMI RAMESH Functional status Functional Status Finding Observation Time Hearing Prob Loc none 07-83-595731:02 Vision Problems yes :02 Vision Correct Dev glasses :02 Ambulation Asst Dev none 52-86-000607:02 Range of Motion full :07 Muscle Strength RUE 5 ROM full resist 05-58-984768:07 Muscle Strength RLE 5 ROM full resist 47-98-901515:07 Muscle Strength LUE 5 ROM full resist 02-26-798582:07 Muscle Strength LLE 5 ROM full resist 76-23-606306:07 Transfers independent 79-80-124880:07 Ambulation in room :07 Balance steady :07 Bathing Assistance none :02 Eating Assistance none :02 Dressing Assistance none :02 Toileting Assistance none :02 Transfer Assistance none :02 Decline Slf Care/Mob no :02 Phys Cond Stable yes :02 Nutrition normal :07 Diet ADA specify calorie :07 Oral Cavity moist and intact :07 Teeth intact :07 Dental Hygiene good 94-05-198816:07 Abdomen Appearance round :07 Abdomen soft 76-80-903117:07 Bowel Sounds present 52-38-655747:07 NG Tube no :07 Feeding Tube none 09-61-001447:07 Egan no :07 Cont Bladder Irr no 02-78-087464:07 Ostomy no :07 Stool normal 81-13-834842:07 Urination normal 00-06-912145:07 Urine Clarity clear 51-49-784650:07 Urine Color straw 35-29-096526:07 Quality sym/unlabored 66-62-178902:07 Cough absent :07 Secretions no :07 Breath Sounds RUL clear 42-46-254926:07 Breath Sounds RML clear 72-14-007436:07 Breath Sounds RLL clear 21-01-734170:07 Breath Sounds DAJUAN clear 87-54-793891:07 Breath Sounds LLL clear 04-77-208620:07 Airway natural :07 Chest Tube no 36-58-814247:07 Oxygen no :12 Oxygen Flow Rate RA 68-38-541962:12 C-PAP no :07 BI-PAP no 17-72-404317:07 Temp >100.4 no :07 Temp <96.8 no 27-91-087813:07 Chills with rigors no 96-34-810105:07 HR > 90bpm no :07 Respirations > 20 no : Systolic <90 no :07 headache stiff neck no :07 WBC > 43958 no :07 WBC < 4000 no :07 Rapid Resp no :07 VAD Type ashwin-cath :55 VAD Location L chest :55 VAD Site Info discontinued :55 VAD Site Appearance WNL :06 VAD Site Color clear : VAD Site Patent yes : VAD Dressing Changed yes : VAD Dressing Type occlusive : Nursing Note no answer x3 :48 Cognitive Status Finding Observation Time Oriented To [...] no :10 Physical no :10 Hearing no 72-43-882265:10 Retail Manager Needed no :10 Sign Language no [...] Rev yes Immun Indicated no PNE Vac 2006 Flu Vac 2012 Tetanus Vac 2006 Diet Explained yes Follow up appt appt made (specify) Follow Up Appt D/T 01/19/15
--- OUTSIDE RECORDS SUMMARY | 2017-08-25 22:01 | XMS REPORT | Clinical Summary ---
Author Author Admin, IWONA Organization [facility] Address Unknown Phone Unavailable Allergies, Adverse Reactions, Alerts Allergy Name Reaction Description Start Date Severity Status Provider ERYTHROMYCIN Stomach cramps Moderate Active Prosper Arenas MD CODEINE Critical Active Maliheh Ziglari SCROLL ASSEMBLER DARVOCET Critical Active Maliheh Ziglari SCROLL ASSEMBLER LEVAQUIN Critical Active Maliheh Ziglari SCROLL ASSEMBLER Conditions or Problems Problem Name Problem Code [...] type II, uncontrolled 250.02 Active Maliheh Ziglari SCROLL ASSEMBLER Diabetes mellitus without mention of complication, type [...] with hyperglycemia 250.00 Active 03/21 Maliheh Ziglari SCROLL ASSEMBLER Diabetes mellitus without mention of complication, type II or unspecified type, not stated as uncontrolled intermediate manager use of insulin treatment V58.67 Active Maliheh Ziglari SCROLL ASSEMBLER Long-term (current) use of insulin Diabetes mellitus, type II with hypoglycemia 250.80 Active 07/22 Maliheh Ziglari SCROLL ASSEMBLER Diabetes mellitus with other specified manifestations, type II or unspecified type, not stated as uncontrolled 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 INSULIN GLARGINE 41044187745 Active Maliheh Ziglari SCROLL ASSEMBLER Active MECLIZINE HCL 25 MG TABS 1 daily needed for dizziness MECLIZINE HCL 52679669815 No Longer Active Maliheh Ziglari SCROLL ASSEMBLER Active ACCU-CHEK JOANNA PLUS STRP check blood sugars 3x a day GLUCOSE BLOOD 82312792367 Active Maliheh Ziglari SCROLL ASSEMBLER Active NOVOLOG FLEXPEN 100 UNIT/ML SOPN Take 25 units with each meal, add 2u/50 for blood sugars above 150. INSULIN ASPART 59198317060 Active [facility] Ziglari SCROLL ASSEMBLER Active BENZONATATE 200 MG CAPS 1 tab, 2-3 times a day BENZONATATE 23870300926 No Longer Active [facility] Ziglari SCROLL ASSEMBLER Active HALOPERIDOL 0.5 MG TABS one tablet three times a day HALOPERIDOL 50745022210 No Longer Active [facility] Ziglari SCROLL ASSEMBLER Active TRAZODONE HCL 50 MG TAB three tablets at bed time TRAZODONE HCL 18216634892 No Longer Active [facility] Ziglari SCROLL ASSEMBLER Active REVLIMID 25 MG CAPS one capsule daily for 21 days then off for 7 days 2014 LENALIDOMIDE 68650382257 No Longer Active [facility] Ziglari SCROLL ASSEMBLER Active ZITHROMAX Z-EDDIE 250 MG TABS 2 today, then 1 daily for 4 days 2014 AZITHROMYCIN 31260648943 No Longer Active Augustina Mata MEDICAL STAFF COORDINATOR Active NOVOLIN R RELION 100 UNIT/ML INJ SOLN 30- 40 units each meal sliding scale INSULIN REGULAR HUMAN 71008855769 No Longer Active [facility] SCROLL ASSEMBLER Active LISINOPRIL 5 MG TABS 1 daily LISINOPRIL 29736784885 Active Prosper Arenas MD Active CALCIUM 500/D 500-200 MG-UNIT TABS one tablet daily CALCIUM CARBONATE- VITAMIN D 32510299712 Active Prosper Arenas MD Active HYDROCHLOROTHIAZIDE 25 MG TABS 1 tablet by mouth daily HYDROCHLOROTHIAZIDE 07604228518 Active Prosper Arenas MD Active HYDROCODONE-ACETAMINOPHEN 5-500 MG TABS 1-2 FOUR TIMES A DAY, PRN HYDROCODONE-ACETAMINOPHEN 34183584084 No Longer Active Prosper Arenas MD Active SIMVASTATIN 80 MG TABS 1/2 tablet daily SIMVASTATIN 16397067982 Active Prosper Arenas MD Active METOPROLOL TARTRATE 25 MG TABS 1/2 tablet twice a day METOPROLOL TARTRATE 81610658490 Active Prosper Arenas MD Active ASPIRIN 81 MG TAB 1 tablet by mouth daily ASPIRIN 53689015638 Active Prosper Arenas MD Active OMEPRAZOLE 20 MG CPDR 1 qd OMEPRAZOLE 07595376729 Active DARCIE Miller Active DOXYCYCLINE HYCLATE 100 MG CAPS take one capsule by mouth twice daily for ten days DOXYCYCLINE HYCLATE 13468788577 No Longer Active Mekhi Dukes MD Active DOXYCYCLINE HYCLATE 100 MG CAPS take one capsule by mouth twice daily for ten days DOXYCYCLINE HYCLATE 100 MG CAPS 2922660 DOXYCYCLINE HYCLATE Inactive HYDROCODONE-ACETAMINOPHEN 5-500 MG TABS [...] days 2014 ZITHROMAX Z-EDDIE 250 MG TABS 6513028 AZITHROMYCIN Inactive REVLIMID 25 MG CAPS one capsule daily for 21 days then off for 7 days 2014 REVLIMID 25 MG CAPS LENALIDOMIDE Inactive TRAZODONE HCL 50 MG TAB three tablets at bed time TRAZODONE HCL 50 MG TAB 996562 TRAZODONE HCL Inactive HALOPERIDOL 0.5 MG TABS one tablet three times a day HALOPERIDOL 0.5 MG TABS 947581 HALOPERIDOL Inactive BENZONATATE 200 MG CAPS 1 tab, 2-3 times a day BENZONATATE 200 MG CAPS 281814 BENZONATATE Inactive MECLIZINE HCL 25 MG TABS 1 daily needed for dizziness MECLIZINE HCL 25 MG TABS 302645 MECLIZINE HCL Inactive Immunizations Vaccine Administration Date [...] CBC, Basic Metabolic Panel, HGBA1C - Chemistry potassium, serum 3.5 mmol/L 3.5-5.2 chloride, serum 100 mmol/L 98-107 carbon dioxide, venous blood 29.5 mmol/L 21.0-32.0 blood glucose 129 mg/dL 65-110 calcium, serum 8.8 mg/dL 8.5-10.1 urea nitrogen, blood 23 mg/dL 7-18 creatinine, serum 1.71 mg/dL 0.55-1.30 hemoglobin A1C, blood, as % of total hemoglobin 7.7 % 4.3-6.0 sodium, serum 137 mmol/L 136-145 Lab Report: CBC, Basic Metabolic Panel, HGBA1C - Hematology platelet count 184 10^3/MM^3 10*3/mm3 987-090 9692/10/23 red blood cell distribution width 14.0 % 11.6-14.8 mean corpuscular hemoglobin concentration, RBC 34.2 G/DL % 31.8- 35.4 mean corpuscular volume, RBC 98 fL 80-97 hematocrit, blood 46.5 % 41.0-53.0 hemoglobin, blood 15.9 g/dL 13.5-17.5 erythrocyte (RBC) count 4.73 10^6/MM^3 10*6/mm3 4.69-6.13 leukocyte count, blood 9.0 10^3/MM^3 10*3/mm3 4.6-10.2 mean corpuscular hemoglobin, RBC 33.6 pg 27.0-31.2 Office Visit: Diabetes Visit - Chemistry cholesterol, [...] mg/dL Encounters Code Encounter Date Provider Facility CPT-77049 Level 3 Est. Patient 11:18:32 CDT Moy Garcia [facility] CPT-86107 Level 4 Est. Patient 11:05:10 CDT [facility] Level 3 Est. Patient 11:08:27 [facility] Level 4 Est. Patient 10:43:59 CDT Prosper Arenas MD [facility] CPT-77081 Level 3 Est. Patient 10:51:19 CDT [facility] CPT-31630 Level 3 Est. Patient 10:20:31 CDT [facility] CPT-59720 Level 3 Est. Patient 17:08:45 CDT [facility] CPT-10116 Level 2 Est. Patient 13:54:36 CDT Augustina Mata APRN [facility] CPT-27776 Level 3 Est. Patient 12:00:42 CDT Prosper Arenas MD [facility] CPT-74024 Level 3 Est. Patient 09:57:28 [facility] Level 3 Est. Patient 11:41:19 PANTRY CHEF [facility] CPT-04556 Level 4 Est. Patient 17:07:35 [place]F [facility] [place]-68480 Level 5 Est. Patient 14:33:32 CDT [facility] CPT-06726 Level 3 Est. Patient 12:25:35 CDT Prosper Arenas MD [facility] Procedures Code Procedure Name Date Entry Date Standard Description CPT-000 Give Appropriate Flu Vaccine 10:44:04 CDT CPT-000 Give Pneumovax 10:44:03 CDT CPT-25461 Port a cath flush 17:04:43 CDT CPT-19044 Prevnar 13 11:19:17 CDT CPT-58816 Fluzone Quadrivalent preservative free (>=3yrs.) 11:19: 17 CDT CPT-93675 Immunization Each Additional Inj 11:19:17 CDT CPT-05544 Immunization Single Admin 11:19:17 CDT CPT-93909 Port a cath flush 13:28:22 CDT CPT-TCMM Transitional Care Mgmt-Moderate 13:40:15 CDT CPT-G0008 Administration of Influenza Virus Vaccine 13:59:20 CDT CPT-52660 Fluzone High-Dose Intramuscular Suspension 13:59:20 CDT CPT-01851 Venipuncture Draw Fee 09:56:19 CDT CPT-OV Office Visit 15:46:10 CDT
--- OUTSIDE RECORDS SUMMARY | 2017-08-25 22:02 | XMS REPORT | Clinical Summary ---
Author Author Admin, IW[place] Organization [facility] Address Unknown Phone Unavailable Allergies, Adverse Reactions, Alerts Allergy Name Reaction Description Start Date Severity Status Provider ERYTHROMYCIN Stomach cramps Moderate Active Prosper Arenas MD CODEINE Critical Active Maliheh Ziglari RETAIL BUYER DARVOCET Critical Active Maliheh Ziglari RETAIL BUYER LEVAQUIN Critical Active Maliheh Ziglari RETAIL BUYER Conditions or Problems Problem Name Problem Code [...] type II, uncontrolled 250.02 Active Maliheh Ziglari RETAIL BUYER Diabetes mellitus without mention of complication, type [...] with hyperglycemia 250.00 Active 03/21 Malpapo Wallaceglari RETAIL BUYER Diabetes mellitus without mention of complication, type II or unspecified type, not stated as uncontrolled emt intermediate use of insulin treatment V58.67 Active Malcarissaeh Rodrigoglari RETAIL BUYER Long-term (current) use of insulin Medication List Medication Instructions Start Date Stop Date Generic Name NDC Status Provider Patient Instruction LANTUS SOLOSTAR 100 UNIT/ML SOLN 35 units at 4-5pm daily INSULIN GLARGINE 40173515139 Active Jose Antonioeh Ziglari RETAIL BUYER Active NOVOLOG FLEXPEN 100 UNIT/ML SOPN Take 25 units with each meal, add 2u/50 for blood sugars above 150. INSULIN ASPART 04104823538 Active Maliheh Ziglari RETAIL BUYER Active MECLIZINE HCL 25 MG TABS 1 daily needed for dizziness MECLIZINE HCL 00425252545 Active Prosper Arenas MD Active BENZONATATE 200 MG CAPS 1 tab, 2-3 times a day BENZONATATE 43376237874 No Longer Active Maliheh Ziglari RETAIL BUYER Active HALOPERIDOL 0.5 MG TABS one tablet three times a day HALOPERIDOL 90724952074 No Longer Active Maliheh Ziglari RETAIL BUYER Active TRAZODONE HCL 50 MG TAB three tablets at bed time TRAZODONE HCL 84151908325 No Longer Active [facility] Rodrigosania DURANTP Active REVLIMID 25 MG CAPS one capsule daily for 21 days then off for 7 days 2014 LENALIDOMIDE 44594124767 No Longer Active Moy Jose RETAIL BUYER Active ACCU-CHEK JOANNA PLUS STRP check blood sugars 3x a day GLUCOSE BLOOD 30475901754 Active [facility] RETAIL BUYER Active ZITHROMAX Z-EDDIE 250 MG TABS 2 today, then 1 daily for 4 days 2014 AZITHROMYCIN 28033986019 No Longer Active Augustina Mata SUPERVISOR INSECTICIDE Active NOVOLIN R RELION 100 UNIT/ML INJ SOLN 30- 40 units each meal sliding scale INSULIN REGULAR HUMAN 61540796917 No Longer Active [facility] Active LISINOPRIL 5 MG TABS 1 daily LISINOPRIL 25637385943 Active Prosper Arenas MD Active CALCIUM 500/D 500-200 MG-UNIT TABS one tablet daily CALCIUM CARBONATE- VITAMIN D 35106570962 Active Prosper Arenas MD Active HYDROCHLOROTHIAZIDE 25 MG TABS 1 tablet by mouth daily HYDROCHLOROTHIAZIDE 05896465597 Active Prosper Arenas MD Active HYDROCODONE-ACETAMINOPHEN 5-500 MG TABS 1-2 FOUR TIMES A DAY, PRN HYDROCODONE-ACETAMINOPHEN 50854276111 No Longer Active Prosper Arenas MD Active SIMVASTATIN 80 MG TABS 1/2 tablet daily SIMVASTATIN 63099692307 Active Prosper Arenas MD Active METOPROLOL TARTRATE 25 MG TABS 1/2 tablet twice a day METOPROLOL TARTRATE 29690602662 Active Prosper Arenas MD Active ASPIRIN 81 MG TAB 1 tablet by mouth daily ASPIRIN 96693920794 Active Prosper Arenas MD Active OMEPRAZOLE 20 MG CPDR 1 qd OMEPRAZOLE 06143126699 Active DARCIE Miller Active DOXYCYCLINE HYCLATE 100 MG CAPS take one capsule by mouth twice daily for ten days DOXYCYCLINE HYCLATE 52757918634 No Longer Active Mekhi Dukes MD Active DOXYCYCLINE HYCLATE 100 MG CAPS take one capsule by mouth twice daily for ten days DOXYCYCLINE HYCLATE 100 MG CAPS 3186128 DOXYCYCLINE HYCLATE Inactive HYDROCODONE-ACETAMINOPHEN 5-500 MG TABS [...] days 2014 ZITHROMAX Z-EDDIE 250 MG TABS 6633165 AZITHROMYCIN Inactive REVLIMID 25 MG CAPS one capsule daily for 21 days then off for 7 days 2014 REVLIMID 25 MG CAPS LENALIDOMIDE Inactive TRAZODONE HCL 50 MG TAB three tablets at bed time TRAZODONE HCL 50 MG TAB 906429 TRAZODONE HCL Inactive HALOPERIDOL 0.5 MG TABS one tablet three times a day HALOPERIDOL 0.5 MG TABS 783101 HALOPERIDOL Inactive BENZONATATE 200 MG CAPS 1 tab, 2-3 times a day BENZONATATE 200 MG CAPS 837984 BENZONATATE Inactive Immunizations Vaccine Administration Date Value [...] Description Chart Maintenance: Outside labs entered on [employer] - Chemistry creatinine, serum 1.92 mg/dL aspartate aminotransferase (SGOT), serum 93 U/L alanine aminotransferase (SGPT), serum 116 U/L alkaline phosphatase, serum 116 U/L sodium, serum 141 mmol/L potassium, serum 3.8 mmol/L blood glucose 148 mg/dL creatinine, serum 1.80 mg/dL aspartate aminotransferase (SGOT), serum 106 U/L alanine aminotransferase (SGPT), serum 160 U/L alkaline phosphatase, serum 106 U/L sodium, serum 139 mmol/L potassium, serum 3.4 mmol/L blood glucose 205 mg/dL Chart Maintenance: Outside labs entered on [employer] - Hematology hemoglobin, blood 14.7 g/dL platelet count 190 10*3/mm3 leukocyte count, blood 5.1 10*3/mm3 leukocyte count, blood 4.5 10*3/mm3 hemoglobin, blood 15.1 g/dL platelet count 158 10*3/mm3 Lab Report: Basic Metabolic Panel, HGBA1C - Chemistry blood glucose 346 mg/dL 65-110 carbon dioxide, venous blood 35.1 mmol/L 21.0-32.0 chloride, serum 96 mmol/L 98-107 potassium, serum 4.1 mmol/L 3.5-5.2 sodium, serum 134 mmol/L 222-299 3362/01/27 calcium, serum 8.4 mg/dL 8.5-10.1 urea nitrogen, blood 18 mg/dL 7-18 creatinine, serum 2.00 mg/dL 0.60-1.30 hemoglobin A1C, blood, as % of total hemoglobin 8.4 % 4.3-6.0 sodium, serum 135 mmol/L 932-565 0468/09/17 potassium, serum 4.0 mmol/L 3.5-5.2 chloride, serum 98 mmol/L 98-107 carbon dioxide, venous blood 29.8 mmol/L 21.0-32.0 blood glucose 180 mg/dL 65-110 calcium, serum 8.7 mg/dL 8.5-10.1 urea nitrogen, blood 17 mg/dL 7-18 creatinine, serum 2.00 mg/dL 0.55-1.30 hemoglobin A1C, blood, as % of total hemoglobin 7.4 % 4.3-6.0 Lab Report: CBC W/DIFF, Comp. Metabolic Panel - Chemistry sodium, serum 137 mmol/L 282-007 6676/01/21 potassium, serum 4.1 mmol/L 3.5-5.2 chloride, serum 99 mmol/L 98-107 carbon dioxide, venous blood 30.9 mmol/L 21.0-32.0 blood glucose 303 mg/dL 65-110 urea nitrogen, blood 19 mg/dL 7-18 creatinine, serum 2.00 mg/dL 0.60-1.30 alanine aminotransferase (SGPT), serum 84 U/L 12-78 aspartate aminotransferase (SGOT), serum 41 U/L 15-37 calcium, serum 7.8 mg/dL 8.5-10.1 bilirubin, serum, total 0.50 mg/dL 0.00-1.00 sodium, serum 131 mmol/L 796-194 1841/03/18 potassium, serum 4.4 mmol/L 3.5-5.2 chloride, serum [...] % 11.6-14.8 platelet count 137 10^3/MM^3 10*3/mm3 395-574 2029/03/18 leukocyte count, blood 4.8 10^3/MM^3 10*3/mm3 4.6-10.2 [...] HGBA1C - Chemistry sodium, serum 137 mmol/L 286-225 5941/10/23 potassium, serum 3.5 mmol/L 3.5-5.2 chloride, serum [...] mg/dL Encounters Code Encounter Date Provider Facility CPT-90000 Level 3 Est. Patient 11:08:27 SUSTAINABLE SYSTEMS ANALYST [facility]PT-29518 Level 4 Est. Patient 10:43:59 CDT Prosper Arenas MD [facility] CPT-34173 Level 3 Est. Patient 10:51:19 [place] [facility] CPT-30743 Level 3 Est. Patient 10:20:31 CD[place] [facility] CPT-49917 Level 3 Est. Patient 17:08:45 CD[place] [facility] CPT-85127 Level 2 Est. Patient 13:54:36 CDT Augustina Mata APRN [facility] CPT-16806 Level 3 Est. Patient 12:00:42 CDT Prosper Arenas MD [facility] CPT-08784 Level 3 Est. Patient 09:57:28 SUSTAINABLE SYSTEMS ANALYST [facility] CPT-96077 Level 3 Est. Patient 11:41:19 SUSTAINABLE SYSTEMS ANALYST [facility] CPT-96152 Level 4 Est. Patient 17:07:35 SUSTAINABLE SYSTEMS ANALYST [facility] CPT-08626 Level 5 Est. Patient 14:33:32 CD[place] [facility] CPT-75045 Level 3 Est. Patient 12:25:35 CDT Prosper Arenas MD [facility] Procedures Code Procedure Name Date Entry Date Standard Description CPT-68185 Port a cath flush 17:04:43 CDT CPT-33958 Prevnar 13 11:19:17 CDT CPT-42428 Fluzone Quadrivalent preservative free (>=3yrs.) 11:19: 17 CDT CPT-19894 Immunization Each Additional Inj 11:19:17 CDT CPT-18065 Immunization Single Admin 11:19:17 CDT CPT-19218 Port a cath flush 13:28:22 CDT CPT-TCMM Transitional Care Mgmt-Moderate 13:40:15 CDT CPT-G0008 Administration of Influenza Virus Vaccine 13:59:20 CDT CPT-08356 Fluzone High-Dose Intramuscular Suspension 13:59:20 CDT CPT-57462 Venipuncture Draw Fee 09:56:19 CDT CPT-OV Office Visit 15:46:10 CDT
--- OUTSIDE RECORDS SUMMARY | 2017-08-25 22:03 | XMS REPORT | Clinical Summary ---
Author Author Admin, IWOAN Organization [employer] Address Unknown Phone Unavailable Allergies, Adverse Reactions, Alerts Allergy Name Reaction Description Start Date Severity Status Provider ERYTHROMYCIN Stomach cramps Moderate Active Prosper Arenas MD CODEINE Critical Active Maliheh Ziglari REGISTERED DIET TECHNICIAN DARVOCET Critical Active Maliheh Ziglari REGISTERED DIET TECHNICIAN LEVAQUIN Critical Active Maliheh Ziglari REGISTERED DIET TECHNICIAN Conditions or Problems Problem Name Problem Code Onset Date Status Entry Date Provider Comment Standard Description Annotate Diabetes, Type 2 250.00 Resolved 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, type [...] type II, uncontrolled 250.02 Active Maliheh Rodrigoglari REGISTERED DIET TECHNICIAN Diabetes mellitus without mention of complication, [...] with hyperglycemia 250.00 Active 03/21 Maliheh Ziglari REGISTERED DIET TECHNICIAN Diabetes mellitus without mention of complication, type II or unspecified type, not stated as uncontrolled half-way use of insulin treatment V58.67 Active Luxiheh Rodrigoglari REGISTERED DIET TECHNICIAN Long-term (current) use of insulin Diabetes mellitus, type II with hypoglycemia 250.80 Active 07/22 Maliheh Ziglari REGISTERED DIET TECHNICIAN Diabetes mellitus with other specified manifestations, type II or unspecified type, not stated as uncontrolled 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 Maliheh Ziglari REGISTERED DIET TECHNICIAN Diabetes mellitus with renal manifestations, type II or unspecified type, not stated as uncontrolled Wellness exam V70.0 Active Dee Palmer APRN Routine general medical examination at a health care facility Fitting and adjustment of vascular catheter V58.81 Active 02/06 Dee Palmer APRN Encounter for fitting and adjustment of vascular catheter Unawareness of hypoglycemia in diabetes mellitus, type II 250.80 Active Maliheh Ziglari REGISTERED DIET TECHNICIAN Diabetes mellitus with other specified manifestations, [...] MG ORAL TABLET 1/2 tablet daily SIMVASTATIN 15559594447 No Longer Active Mekhi Dukes MD Active OMEPRAZOLE 20 MG ORAL CAPSULE DELAYED RELEASE 1 qd OMEPRAZOLE 13689378792 No Longer Active Mekhi Dukes MD Active METOPROLOL TARTRATE 25 MG ORAL TABLET 1/2 tablet twice a day METOPROLOL TARTRATE 07483247468 No Longer Active Mekhi Dukes MD Active LISINOPRIL 5 MG ORAL TABLET 1 daily LISINOPRIL 39167142043 No Longer Active Mekhi Dukes MD Active NOVOLOG FLEXPEN 100 UNIT/ML SUBCUTANEOUS SOLUTION PEN-INJECTOR Take 8 units with each meal, add 1u/50 for blood sugars above 150. INSULIN ASPART 36510131738 Active Moy PARISH Active GABAPENTIN 300 MG ORAL CAPSULE 1 tab BID GABAPENTIN 47300413605 Active Tami Miller RN Active PREDNISONE 20 MG ORAL TABLET Take 2 daily for 3 days and then 1 daily for 3 days PREDNISONE 79130108592 No Longer Active Moy PARISH Active BENZONATATE 200 MG ORAL CAPSULE Take 1 tablet 3 times a day as needed for cough BENZONATATE 28378556115 No Longer Active Prosper Arenas MD Active HYDROCHLOROTHIAZIDE 25 MG ORAL TABLET 1 tablet by mouth daily HYDROCHLOROTHIAZIDE 32579399421 No Longer Active Prosper Arenas MD Active ACCU-CHEK JOANNA PLUS IN VITRO STRIP check blood sugars 5x a day, before each meal and bedtime and 15 minutes after treating a low blood. sugar GLUCOSE BLOOD 06909230494 Active Malpapo Wallaceglrex PARISH Active LANTUS SOLOSTAR 100 UNIT/ML SUBCUTANEOUS SOLUTION PEN-INJECTOR Take 40 units at 7-8pm daily INSULIN GLARGINE 90420578483 Active Moy Ziglari REGISTERED DIET TECHNICIAN Active MECLIZINE HCL 25 MG ORAL TABLET 1 daily needed for dizziness 2015 MECLIZINE HCL 81222111691 No Longer Active Maleh Ziglari REGISTERED DIET TECHNICIAN Active BENZONATATE 200 MG ORAL CAPSULE 1 tab, 2-3 times a day BENZONATATE 75424942174 No Longer [facility]igl[facility] REGISTERED DIET TECHNICIAN Active HALOPERIDOL 0.5 MG ORAL TABLET one tablet three times a day HALOPERIDOL 42705949413 No Longer [facility] Ziglari REGISTERED DIET TECHNICIAN Active TRAZODONE HCL 50 MG ORAL TABLET three tablets at bed time TRAZODONE HCL 44197059102 No Longer [facility] Ziglari REGISTERED DIET TECHNICIAN Active REVLIMID 25 MG ORAL CAPSULE one capsule daily for 21 days then off for 7 days LENALIDOMIDE 41397691535 No Longer [facility] Ziglari REGISTERED DIET TECHNICIAN Active ZITHROMAX Z-EDDIE 250 MG ORAL TABLET 2 today, then 1 daily for 4 days AZITHROMYCIN 55793123016 No Longer Active Augustina Adolfo DOHERTY Active NOVOLIN R RELION 100 UNIT/ML INJECTION SOLUTION 30- 40 units each meal sliding scale INSULIN REGULAR HUMAN 72509736107 No Longer Active Moy Rodrigoglari REGISTERED DIET TECHNICIAN Active CALCIUM 500/D 500-200 MG-UNIT ORAL TABLET one tablet daily CALCIUM CARBONATE-VITAMIN D 73845791205 Active Prosper Arenas MD Active HYDROCODONE-ACETAMINOPHEN 5-500 MG ORAL TABLET 1-2 FOUR TIMES A DAY, PRN 2010 HYDROCODONE-ACETAMINOPHEN 52813606075 No Longer Active Prosper Arenas MD Active ASPIRIN 81 MG ORAL TABLET 1 tablet by mouth daily ASPIRIN 50591860449 Active Prosper Arenas MD Active DOXYCYCLINE HYCLATE 100 MG ORAL CAPSULE take one capsule by mouth twice daily for ten days DOXYCYCLINE HYCLATE 50261581274 No Longer Active Mekhi Dukes MD Active DOXYCYCLINE HYCLATE 100 MG ORAL CAPSULE take one capsule by mouth twice daily for ten days DOXYCYCLINE HYCLATE 100 MG ORAL CAPSULE 0451055 DOXYCYCLINE HYCLATE Inactive HYDROCODONE-ACETAMINOPHEN 5-500 MG ORAL TABLET 1-2 FOUR TIMES A DAY, PRN 2010 HYDROCODONE-ACETAMINOPHEN 5-500 MG ORAL TABLET 541435 HYDROCODONE-ACETAMINOPHEN Inactive NOVOLIN R RELION 100 UNIT/ML INJECTION SOLUTION 30- 40 units each meal sliding scale NOVOLIN R RELION 100 UNIT/ML INJECTION SOLUTION INSULIN REGULAR HUMAN Inactive ZITHROMAX Z-EDDIE 250 MG ORAL TABLET 2 today, then 1 daily for 4 days ZITHROMAX Z-EDDIE 250 MG ORAL TABLET 923420 AZITHROMYCIN Inactive REVLIMID 25 MG ORAL CAPSULE one capsule daily for 21 days then off for 7 days REVLIMID 25 MG ORAL CAPSULE LENALIDOMIDE Inactive TRAZODONE HCL 50 MG ORAL TABLET three tablets at bed time TRAZODONE HCL 50 MG ORAL TABLET 140568 TRAZODONE HCL Inactive HALOPERIDOL 0.5 MG ORAL TABLET one tablet three times a day HALOPERIDOL 0.5 MG ORAL TABLET 039932 HALOPERIDOL Inactive BENZONATATE 200 MG ORAL CAPSULE 1 tab, 2-3 times a day BENZONATATE 200 MG ORAL CAPSULE 876454 BENZONATATE Inactive MECLIZINE HCL 25 MG ORAL TABLET 1 daily needed for dizziness 2015 MECLIZINE HCL 25 MG ORAL TABLET 130561 MECLIZINE HCL Inactive HYDROCHLOROTHIAZIDE 25 MG ORAL TABLET 1 tablet by mouth daily HYDROCHLOROTHIAZIDE 25 MG ORAL TABLET 996702 HYDROCHLOROTHIAZIDE Inactive PREDNISONE 20 MG ORAL TABLET Take 2 daily for 3 days and then 1 daily for 3 days PREDNISONE 20 MG ORAL TABLET 721827 PREDNISONE Inactive LISINOPRIL 5 MG ORAL TABLET 1 daily LISINOPRIL 5 MG ORAL TABLET 744538 LISINOPRIL Inactive METOPROLOL TARTRATE 25 MG ORAL TABLET 1/2 tablet twice a day METOPROLOL TARTRATE 25 MG ORAL TABLET 610367 METOPROLOL TARTRATE Inactive OMEPRAZOLE 20 MG ORAL CAPSULE DELAYED RELEASE 1 qd OMEPRAZOLE 20 MG ORAL CAPSULE DELAYED RELEASE 908714 OMEPRAZOLE Inactive SIMVASTATIN 80 MG ORAL TABLET 1/2 tablet daily SIMVASTATIN 80 MG ORAL TABLET 481434 SIMVASTATIN Inactive BENZONATATE 200 MG ORAL CAPSULE Take 1 tablet 3 times a day as needed for cough BENZONATATE 200 MG ORAL CAPSULE 754413 BENZONATATE Inactive Immunizations Vaccine Administration Date Value [...] W/DIFF - Chemistry sodium, serum 137 mmol/L 919-585 7246/08/16 carbon dioxide, venous blood 26.3 mmol/L 21.0-32.0 [...] LABS - Chemistry cholesterol, serum 115 mg/dL 506-384 0988/08/18 triglyceride, serum, fasting 89 mg/dL 30-200 HDL cholesterol, serum 46 mg/dL 32-60 LDL cholesterol, serum 51 mg/dL 0-130 blood glucose 104 mg/dL 65-110 Lab Report: LIPID PANEL- REPOWER LAB - Chemistry cholesterol, serum 156 mg/dL 466-233 1206/02/20 HDL cholesterol, serum 52 mg/dL > OR=40 [...] mg/dL Encounters Code Encounter Date Provider Facility CPT-60082 Level 3 Est. Patient 17:11:55 OSITO Gracia MD [facility] CPT-05819 Level 4 Est. Patient 16:29:19 CDT Mekhi Dukes MD [facility] CPT-23772 Level 3 New Patient 17:05:24 CDT Ismael Gracia MD [facility] CPT-76476 Level 2 Est. Patient 15:43:17 CDT Mekhi Dukes MD [facility] CPT-22103 Level 3 Est. Patient 09:30:37 CDT Moy Garcia [facility] CPT-64248 Level 3 Est. Patient 10:00:14 CDT Mekhi Dukes MD [facility] CPT-47715 Level 3 Est. Patient 12:24:09 CDT Moy Garcia [facility] CPT-35585 Level 3 Est. Patient 14:34:57 CDT Prosper Arenas MD [facility] CPT-68418 Level 3 New Patient 15:44:53 BURLESQUE DANCER Mekhi Dukes MD [facility] CPT-74276 Level 3 Est. Patient 14:53:34 BURLESQUE DANCER Prosper Arenas MD [facility] CPT-80912 Level 4 Est. Patient 10:05:41 BURLESQUE DANCER Moy Rodrigokymrex [facility] CPT-13974 Level 3 Est. Patient 11:18:32 [facility] Level 4 Est. Patient 11:05:10 CDT Moy Bradshawari [facility] CPT-67310 Level 3 Est. Patient 11:08:27 BURLESQUE DANCER Moy Garcia [facility] CPT-33436 Level 4 Est. Patient 10:43:59 CDT Prosper Arenas MD [facility] CPT-30498 Level 3 Est. Patient 10:51:19 CDT Moy Rodrigokymrex [facility] CPT-27545 Level 3 Est. [facility] 10:20:31 [facility] Level 3 Est. Patient 17:08:45 CDT Moy Garcia [facility] CPT-31513 Level 2 Est. Patient 13:54:36 CDT Augustina Mata APRN [facility] CPT-57864 Level 3 Est. Patient 12:00:42 CDT Prosper Arenas MD [facility] CPT-27507 Level 3 Est. Patient 09:57:28 BURLESQUE DANCER Moy Garcia [facility] CPT-49449 Level 3 Est. Patient 11:41:19 BURLESQUE DANCER [facility]16 Level 4 Est. Patient 17:07:35 BURLESQUE DANCER [facility] Level 5 Est. Patient 14:33:32 [facility] Level 3 Est. Patient 12:25:35 CDT Prosper Arenas MD [facility] Procedures Code Procedure Name Date Entry Date Standard Description CPT-G0439 [facility] Annual Wellness Exam 08:39:41 BURLESQUE DANCER CPT-000 Give Appropriate Flu Vaccine 10:13:55 BURLESQUE DANCER CPT-000 Give Immunizations Due 10:13:55 BURLESQUE DANCER CPT-90587 HGBA1C - LAB USE ONLY 09:42:47 BURLESQUE DANCER CPT-31028 TPSA - LAB USE ONLY 09:42:46 BURLESQUE DANCER CPT-31751 Venipuncture Draw Fee 09:42:46 BURLESQUE DANCER CPT-65900 Port a cath flush 13:33:18 BURLESQUE DANCER CPT-62287 First Vx - Ix admin for Medicare patients 10:42:57 BURLESQUE DANCER CPT-20410 Fluzone Preservative Free Intramuscular Suspension 10:42 :57 BURLESQUE DANCER CPT-G0438 Initial Annual Wellness Exam 10:13:55 BURLESQUE DANCER CPT-000 Give Appropriate Flu Vaccine 10:44:04 CDT CPT-000 Give Pneumovax 10:44:03 CDT CPT-21754 Port a cath flush 17:04:43 CDT CPT-85635 Prevnar 13 11:19:17 CDT CPT-39902 Fluzone Quadrivalent preservative free (>=3yrs.) 11:19: 17 CDT CPT-54817 Immunization Each Additional Inj 11:19:17 CDT CPT-04805 Immunization Single Admin 11:19:17 CDT CPT-58400 Port a cath flush 13:28:22 CDT CPT-TCMM Transitional Care Mgmt-Moderate 13:40:15 CDT CPT-G0008 Administration of Influenza Virus Vaccine 13:59:20 CDT CPT-81155 Fluzone High-Dose Intramuscular Suspension 13:59:20 CDT CPT-40897 Venipuncture Draw Fee 09:56:19 CDT CPT-OV Office Visit 15:46:10 CDT
--- OUTSIDE RECORDS SUMMARY | 2017-08-25 22:03 | XMS REPORT | Clinical Summary ---
Author Author Admin, IWONA Organization [employer] Address Unknown Phone Unavailable Allergies, Adverse Reactions, Alerts Allergy Name Reaction Description Start Date Severity Status Provider ERYTHROMYCIN Stomach cramps Moderate Active Prosper Arenas MD CODEINE Critical Active Maliheh Ziglari SOFTWARE PROJECT ENGINEER DARVOCET Critical Active Maliheh Ziglari SOFTWARE PROJECT ENGINEER LEVAQUIN Critical Active Maliheh Ziglari SOFTWARE PROJECT ENGINEER Conditions or Problems Problem Name Problem Code Onset Date Status Entry Date Provider Comment Standard Description Annotate Diabetes, Type 2 250.00 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, type [...] type II, uncontrolled 250.02 Active Maliheh Rodrigoglari SOFTWARE PROJECT ENGINEER Diabetes mellitus without mention of complication, [...] with hyperglycemia 250.00 Active 03/21 Maliheh Ziglari SOFTWARE PROJECT ENGINEER Diabetes mellitus without mention of complication, type II or unspecified type, not stated as uncontrolled detention use of insulin treatment V58.67 Active Luxiheh Rodrigoglari SOFTWARE PROJECT ENGINEER Long-term (current) use of insulin Diabetes mellitus, type II with hypoglycemia 250.80 Active 07/22 Maliheh Ziglari SOFTWARE PROJECT ENGINEER Diabetes mellitus with other specified manifestations, type II or unspecified type, not stated as uncontrolled 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 Maliheh Ziglari SOFTWARE PROJECT ENGINEER Diabetes mellitus with renal manifestations, type II or unspecified type, not stated as uncontrolled Wellness exam V70.0 Active Dee Palmer APRN Routine general medical examination at a health care facility Fitting and adjustment of vascular catheter V58.81 Active 02/06 Dee Palmer APRN Encounter for fitting and adjustment of vascular catheter Unawareness of hypoglycemia in diabetes mellitus, type II 250.80 Active Maliheh Ziglari SOFTWARE PROJECT ENGINEER Diabetes mellitus with other specified manifestations, [...] MG ORAL TABLET 1/2 tablet daily SIMVASTATIN 42628055669 No Longer Active Mekhi Dukes MD Active OMEPRAZOLE 20 MG ORAL CAPSULE DELAYED RELEASE 1 qd OMEPRAZOLE 89992551842 No Longer Active Mekhi Dukes MD Active METOPROLOL TARTRATE 25 MG ORAL TABLET 1/2 tablet twice a day METOPROLOL TARTRATE 84590137958 No Longer Active Mekhi Dukes MD Active LISINOPRIL 5 MG ORAL TABLET 1 daily LISINOPRIL 24044177802 No Longer Active Mekhi Dukes MD Active NOVOLOG FLEXPEN 100 UNIT/ML SUBCUTANEOUS SOLUTION PEN-INJECTOR Take 8 units with each meal, add 1u/50 for blood sugars above 150. INSULIN ASPART 64832767684 Active Moy PARISH Active GABAPENTIN 300 MG ORAL CAPSULE 1 tab BID GABAPENTIN 09385941788 Active Tami Miller RN Active PREDNISONE 20 MG ORAL TABLET Take 2 daily for 3 days and then 1 daily for 3 days PREDNISONE 12727615898 No Longer Active Malcarissashoaib Ziglari SOFTWARE PROJECT ENGINEER Active BENZONATATE 200 MG ORAL CAPSULE Take 1 tablet 3 times a day as needed for cough BENZONATATE 85271079812 No Longer Active Prosper Arenas MD Active HYDROCHLOROTHIAZIDE 25 MG ORAL TABLET 1 tablet by mouth daily HYDROCHLOROTHIAZIDE 78254992259 No Longer Active Prosper Arenas MD Active ACCU-CHEK JOANNA PLUS IN VITRO STRIP check blood sugars 5x a day, before each meal and bedtime and 15 minutes after treating a low blood. sugar GLUCOSE BLOOD 13373201540 Active Luxshoaib Wallaceglari SOFTWARE PROJECT ENGINEER Active LANTUS SOLOSTAR 100 UNIT/ML SUBCUTANEOUS SOLUTION PEN-INJECTOR Take 40 units at 7-8pm daily INSULIN GLARGINE 44528587259 Active Moy Wallaceglari SOFTWARE PROJECT ENGINEER Active MECLIZINE HCL 25 MG ORAL TABLET 1 daily needed for dizziness 2015 MECLIZINE HCL 74927870275 No Longer Active Malcarissaeh Ziglari SOFTWARE PROJECT ENGINEER Active BENZONATATE 200 MG ORAL CAPSULE 1 tab, 2-3 times a day BENZONATATE 24736136978 No Longer Active Malpapo Wallaceglari SOFTWARE PROJECT ENGINEER Active HALOPERIDOL 0.5 MG ORAL TABLET one tablet three times a day HALOPERIDOL 79100788612 No Longer Active [facility] Ziglari SOFTWARE PROJECT ENGINEER Active TRAZODONE HCL 50 MG ORAL TABLET three tablets at bed time TRAZODONE HCL 74285045658 No Longer [facility] Zigl[facility] SOFTWARE PROJECT ENGINEER Active REVLIMID 25 MG ORAL CAPSULE one capsule daily for 21 days then off for 7 days LENALIDOMIDE 78089293101 No Longer Active Maleh Ziglari SOFTWARE PROJECT ENGINEER Active ZITHROMAX Z-EDDIE 250 MG ORAL TABLET 2 today, then 1 daily for 4 days AZITHROMYCIN 69233607216 No Longer Active Augustina Adolfo DOHERTY Active NOVOLIN R RELION 100 UNIT/ML INJECTION SOLUTION 30- 40 units each meal sliding scale INSULIN REGULAR HUMAN 81853625372 No Longer Active Malpapo Wallaceglari SOFTWARE PROJECT ENGINEER Active CALCIUM 500/D 500-200 MG-UNIT ORAL TABLET one tablet daily CALCIUM CARBONATE-VITAMIN D 64140039905 Active Prosper Arenas MD Active HYDROCODONE-ACETAMINOPHEN 5-500 MG ORAL TABLET 1-2 FOUR TIMES A DAY, PRN 2010 HYDROCODONE-ACETAMINOPHEN 95340317549 No Longer Active Prosper Arenas MD Active ASPIRIN 81 MG ORAL TABLET 1 tablet by mouth daily ASPIRIN 77389154691 Active Prosper Arenas MD Active DOXYCYCLINE HYCLATE 100 MG ORAL CAPSULE take one capsule by mouth twice daily for ten days DOXYCYCLINE HYCLATE 36465993581 No Longer Active Mekhi Dukes MD Active DOXYCYCLINE HYCLATE 100 MG ORAL CAPSULE take one capsule by mouth twice daily for ten days DOXYCYCLINE HYCLATE 100 MG ORAL CAPSULE 4812788 DOXYCYCLINE HYCLATE Inactive HYDROCODONE-ACETAMINOPHEN 5-500 MG ORAL TABLET 1-2 FOUR TIMES A DAY, PRN 2010 HYDROCODONE-ACETAMINOPHEN 5-500 MG ORAL TABLET 834967 HYDROCODONE-ACETAMINOPHEN Inactive NOVOLIN R RELION 100 UNIT/ML INJECTION SOLUTION 30- 40 units each meal sliding scale NOVOLIN R RELION 100 UNIT/ML INJECTION SOLUTION INSULIN REGULAR HUMAN Inactive ZITHROMAX Z-EDDIE 250 MG ORAL TABLET 2 today, then 1 daily for 4 days ZITHROMAX Z-EDDIE 250 MG ORAL TABLET 547841 AZITHROMYCIN Inactive REVLIMID 25 MG ORAL CAPSULE one capsule daily for 21 days then off for 7 days REVLIMID 25 MG ORAL CAPSULE LENALIDOMIDE Inactive TRAZODONE HCL 50 MG ORAL TABLET three tablets at bed time TRAZODONE HCL 50 MG ORAL TABLET 020115 TRAZODONE HCL Inactive HALOPERIDOL 0.5 MG ORAL TABLET one tablet three times a day HALOPERIDOL 0.5 MG ORAL TABLET 039240 HALOPERIDOL Inactive BENZONATATE 200 MG ORAL CAPSULE 1 tab, 2-3 times a day BENZONATATE 200 MG ORAL CAPSULE 883169 BENZONATATE Inactive MECLIZINE HCL 25 MG ORAL TABLET 1 daily needed for dizziness 2015 MECLIZINE HCL 25 MG ORAL TABLET 745228 MECLIZINE HCL Inactive HYDROCHLOROTHIAZIDE 25 MG ORAL TABLET 1 tablet by mouth daily HYDROCHLOROTHIAZIDE 25 MG ORAL TABLET 437307 HYDROCHLOROTHIAZIDE Inactive PREDNISONE 20 MG ORAL TABLET Take 2 daily for 3 days and then 1 daily for 3 days PREDNISONE 20 MG ORAL TABLET 521893 PREDNISONE Inactive LISINOPRIL 5 MG ORAL TABLET 1 daily LISINOPRIL 5 MG ORAL TABLET 889473 LISINOPRIL Inactive METOPROLOL TARTRATE 25 MG ORAL TABLET 1/2 tablet twice a day METOPROLOL TARTRATE 25 MG ORAL TABLET 193044 METOPROLOL TARTRATE Inactive OMEPRAZOLE 20 MG ORAL CAPSULE DELAYED RELEASE 1 qd OMEPRAZOLE 20 MG ORAL CAPSULE DELAYED RELEASE 147484 OMEPRAZOLE Inactive SIMVASTATIN 80 MG ORAL TABLET 1/2 tablet daily SIMVASTATIN 80 MG ORAL TABLET 330759 SIMVASTATIN Inactive BENZONATATE 200 MG ORAL CAPSULE Take 1 tablet 3 times a day as needed for cough BENZONATATE 200 MG ORAL CAPSULE 861277 BENZONATATE Inactive Immunizations Vaccine Administration Date Value [...] W/DIFF - Chemistry sodium, serum 137 mmol/L 490-539 5666/08/16 carbon dioxide, venous blood 26.3 mmol/L 21.0-32.0 [...] 4.3-6.0 Lab Report: Lipid Panel, Glucose- 6M [email or web address] LABS - Chemistry cholesterol, serum 115 mg/dL 154-174 9876/08/18 triglyceride, serum, fasting 89 mg/dL 30-200 HDL cholesterol, serum 46 mg/dL 32-60 LDL cholesterol, serum 51 mg/dL 0-130 blood glucose 104 mg/dL 65-110 Lab Report: LIPID PANEL- REPOWER LAB - Chemistry cholesterol, serum 156 mg/dL 047-848 5884/02/20 HDL cholesterol, serum 52 mg/dL > OR=40 [...] mg/dL Encounters Code Encounter Date Provider Facility CPT-71626 Level 4 Est. Patient 16:29:19 CDT Mekhi Dukes MD [facility] CPT-93557 Level 3 New Patient 17:05:24 CDT Ismael Gracia MD [facility] CPT-84337 Level 2 Est. Patient 15:43:17 CDT Mekhi Dukes MD [facility] CPT-24742 Level 3 Est. Patient 09:30:[address] [facility] Level 3 Est. Patient 10:00:14 CDT Mekhi Dukes MD [facility] CPT-92695 Level 3 Est. Patient 12:24:09 [facility] Level 3 Est. Patient 14:34:57 CDT Prosper Arenas MD [facility] CPT-14220 Level 3 New Patient 15:44:53 AUDIO VISUAL SECRETARY Mekhi Dukes MD [facility] CPT-41401 Level 3 Est. Patient 14:53:34 AUDIO VISUAL SECRETARY Prosper Arenas MD [facility] CPT-65008 Level 4 Est. Patient 10:05:41 AUDIO VISUAL SECRETARY [facility] CPT-00336 Level 3 Est. Patient 11:18:32 CDT [facility] CPT-22611 Level 4 Est. Patient 11:05:10 CDT [facility] CPT-02964 Level 3 Est. Patient 11:08:27 AUDIO VISUAL SECRETARY Moy Garcia [facility] CPT-78668 Level 4 Est. Patient 10:43:59 CDT Prosper Arenas MD [facility] CPT-45560 Level 3 Est. Patient 10:51:19 CDT Moy Garcia [facility] CPT-45960 Level 3 Est. Patient 10:20:31 CDT Moy Garcia [facility] CPT-62421 Level 3 Est. Patient 17:08:45 CDT Moy Wallacerex [facility] CPT-29979 Level 2 Est. Patient 13:54:36 CDT Augustinajaclyn Mata POULTRY HATCHERY MAN [facility] CPT-16495 Level 3 Est. Patient 12:00:42 CDT Prosper Arenas MD [facility] CPT-49090 Level 3 Est. Patient 09:57:28 AUDIO VISUAL SECRETARY [facility]-98169 Level 3 Est. Patient 11:41:19 AUDIO VISUAL SECRETARY [facility] CPT-24961 Level 4 Est. Patient 17:07:35 AUDIO VISUAL SECRETARY [facility] CPT-89255 Level 5 Est. Patient 14:33:32 [facility] CPT-72618 Level 3 Est. Patient 12:25:35 CDT Prosper Arenas MD [facility] Procedures Code Procedure Name Date Entry Date Standard Description CPT-000 Give Appropriate Flu Vaccine 10:13:55 AUDIO VISUAL SECRETARY CPT-000 Give Immunizations Due 10:13:55 AUDIO VISUAL SECRETARY CPT-67293 HGBA1C - LAB USE ONLY 09:42:47 AUDIO VISUAL SECRETARY CPT-79305 TPSA - LAB USE ONLY 09:42:46 AUDIO VISUAL SECRETARY CPT-76588 Venipuncture Draw Fee 09:42:46 AUDIO VISUAL SECRETARY CPT-62746 Port a cath flush 13:33:18 AUDIO VISUAL SECRETARY CPT-70936 First Vx - Ix admin for Medicare patients 10:42:57 AUDIO VISUAL SECRETARY CPT-13859 Fluzone Preservative Free Intramuscular Suspension 10:42 :57 AUDIO VISUAL SECRETARY CPT-G0438 Initial Annual Wellness Exam 10:13:55 AUDIO VISUAL SECRETARY CPT-000 Give Appropriate Flu Vaccine 10:44:04 CDT CPT-000 Give Pneumovax 10:44:03 CDT CPT-55917 Port a cath flush 17:04:43 CDT CPT-28773 Prevnar 13 11:19:17 CDT CPT-05577 Fluzone Quadrivalent preservative free (>=3yrs.) 11:19: 17 CDT CPT-15376 Immunization Each Additional Inj 11:19:17 CDT CPT-98751 Immunization Single Admin 11:19:17 CDT CPT-45396 Port a cath flush 13:28:22 CDT CPT-TCMM Transitional Care Mgmt-Moderate 13:40:15 CDT CPT-G0008 Administration of Influenza Virus Vaccine 13:59:20 CDT CPT-78054 Fluzone High-Dose Intramuscular Suspension 13:59:20 CDT CPT-26862 Venipuncture Draw Fee 09:56:19 CDT CPT-OV Office Visit 15:46:10 CDT
--- OUTSIDE RECORDS SUMMARY | 2017-08-25 22:04 | XMS REPORT | Clinical Summary ---
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, type II [...] type II, uncontrolled 250.02 Active Maliheh Rodrigoglari DENTISTRY PROFESSOR Diabetes mellitus without mention of complication, type [...] with hyperglycemia 250.00 Active 03/21 Maliheh Ziglari DENTISTRY PROFESSOR Diabetes mellitus without mention of complication, type II or unspecified type, not stated as uncontrolled 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 V58.67 Active Luxiheh Rodrigoglari DENTISTRY PROFESSOR Long-term (current) use of insulin Diabetes mellitus, type II with hypoglycemia 250.80 Active 07/22 Maliheh Ziglari DENTISTRY PROFESSOR Diabetes mellitus with other specified manifestations, type II or unspecified type, not stated as uncontrolled 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 Maliheh Ziglari DENTISTRY PROFESSOR Diabetes mellitus with renal manifestations, type II or unspecified type, not stated as uncontrolled Wellness exam V70.0 Active Dee Palmer APRN Routine general medical examination at a health care facility Fitting and adjustment of vascular catheter V58.81 Active 02/06 Dee Palmer APRN Encounter for fitting and adjustment of vascular catheter Unawareness of hypoglycemia in diabetes mellitus, type II 250.80 Active Maliheh Ziglari DENTISTRY PROFESSOR Diabetes mellitus with other specified manifestations, type [...] 80 MG TABS 1/2 tablet daily SIMVASTATIN 41585310071 No Longer Active Mekhi Dukes MD Active OMEPRAZOLE 20 MG CPDR 1 qd OMEPRAZOLE 97596649735 No Longer Active Mekhi Dukes MD Active METOPROLOL TARTRATE 25 MG TABS 1/2 tablet twice a day METOPROLOL TARTRATE 92255876100 No Longer Active Mekhi Dukes MD Active LISINOPRIL 5 MG TABS 1 daily LISINOPRIL 53721360879 No Longer Active Mekhi Dukes MD Active NOVOLOG FLEXPEN 100 UNIT/ML SOPN Take 8 units with each meal, add 1u/50 for blood sugars above 150. INSULIN ASPART 64868001346 Active Moy DURANTP Active GABAPENTIN 300 MG ORAL CAPS 1 tab BID GABAPENTIN 44791840124 Active Tami Miller RN Active PREDNISONE 20 MG TABS Take 2 daily for 3 days and then 1 daily for 3 days PREDNISONE 08331511473 No Longer Active Maliheh Ziglari DENTISTRY PROFESSOR Active BENZONATATE 200 MG CAPS Take 1 tablet 3 times a day as needed for cough 07/29 BENZONATATE 55083473143 No Longer Active Prosper Arenas MD Active HYDROCHLOROTHIAZIDE 25 MG TABS 1 tablet by mouth daily HYDROCHLOROTHIAZIDE 94879927894 No Longer Active Prosper Arenas MD Active ACCU-CHEK JOANNA PLUS STRP check blood sugars 5x a day, before each meal and bedtime and 15 minutes after treating a low blood. sugar GLUCOSE BLOOD 99394351985 Active Maliheh Ziglari DENTISTRY PROFESSOR Active LANTUS SOLOSTAR 100 UNIT/ML SOLN Take 40 units at 7-8pm daily INSULIN GLARGINE 10104997000 Active Maliheh Ziglari DENTISTRY PROFESSOR Active MECLIZINE HCL 25 MG TABS 1 daily needed for dizziness MECLIZINE HCL 02075428852 No Longer Active Maliheh Ziglari DENTISTRY PROFESSOR Active BENZONATATE 200 MG CAPS 1 tab, 2-3 times a day BENZONATATE 88475366477 No Longer Active Maliheh Ziglari DENTISTRY PROFESSOR Active HALOPERIDOL 0.5 MG TABS one tablet three times a day HALOPERIDOL 96090906185 No Longer Active Moy Ziglari DENTISTRY PROFESSOR Active TRAZODONE HCL 50 MG TAB three tablets at bed time TRAZODONE HCL 96186185700 No Longer Active Malpapo Ziglari DENTISTRY PROFESSOR Active REVLIMID 25 MG CAPS one capsule daily for 21 days then off for 7 days 2014 LENALIDOMIDE 42038682036 No Longer Active Maleh Ziglari DENTISTRY PROFESSOR Active ZITHROMAX Z-EDDIE 250 MG TABS 2 today, then 1 daily for 4 days 2014 AZITHROMYCIN 59019109395 No Longer Active Augustina Mata TOOL ENGINE 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 OPERATOR Active NOVOLIN R RELION 100 UNIT/ML INJ SOLN 30- 40 units each meal sliding scale INSULIN REGULAR HUMAN 55742746805 No Longer Active Malpapo Ziglari DENTISTRY PROFESSOR Active CALCIUM 500/D 500-200 MG-UNIT TABS one tablet daily CALCIUM CARBONATE- VITAMIN D 85606663387 Active Prosper Arenas MD Active HYDROCODONE-ACETAMINOPHEN 5-500 MG TABS 1-2 FOUR TIMES A DAY, PRN HYDROCODONE-ACETAMINOPHEN 07370783514 No Longer Active Prosper Arenas MD Active ASPIRIN 81 MG TAB 1 tablet by mouth daily ASPIRIN 54568582870 Active Prosper Arenas MD Active DOXYCYCLINE HYCLATE 100 MG CAPS take one capsule by mouth twice daily for ten days DOXYCYCLINE HYCLATE 49094342569 No Longer Active Mekhi Dukes MD Active DOXYCYCLINE HYCLATE 100 MG CAPS take one capsule by mouth twice daily for ten days DOXYCYCLINE HYCLATE 100 MG CAPS 1387951 DOXYCYCLINE HYCLATE Inactive HYDROCODONE-ACETAMINOPHEN 5-500 MG TABS 1-2 FOUR TIMES A DAY, PRN HYDROCODONE-ACETAMINOPHEN 5-500 MG TABS 908104 HYDROCODONE- ACETAMINOPHEN Inactive NOVOLIN R RELION 100 UNIT/ML INJ SOLN 30- 40 units each meal sliding scale NOVOLIN R RELION 100 UNIT/ML INJ SOLN INSULIN REGULAR HUMAN Inactive ZITHROMAX Z-EDDIE 250 MG TABS 2 today, then 1 daily for 4 days 2014 ZITHROMAX Z-EDDIE 250 MG TABS 608167 AZITHROMYCIN Inactive REVLIMID 25 MG CAPS one capsule daily for 21 days then off for 7 days 2014 REVLIMID 25 MG CAPS LENALIDOMIDE Inactive TRAZODONE HCL 50 MG TAB three tablets at bed time TRAZODONE HCL 50 MG TAB 355394 TRAZODONE HCL Inactive HALOPERIDOL 0.5 MG TABS one tablet three times a day HALOPERIDOL 0.5 MG TABS 776460 HALOPERIDOL Inactive BENZONATATE 200 MG CAPS 1 tab, 2-3 times a day BENZONATATE 200 MG CAPS 954560 BENZONATATE Inactive MECLIZINE HCL 25 MG TABS 1 daily needed for dizziness MECLIZINE HCL 25 MG TABS 623224 MECLIZINE HCL Inactive HYDROCHLOROTHIAZIDE 25 MG TABS 1 tablet by mouth daily HYDROCHLOROTHIAZIDE 25 MG TABS 858660 HYDROCHLOROTHIAZIDE Inactive PREDNISONE 20 MG TABS Take 2 daily for 3 days and then 1 daily for 3 days PREDNISONE 20 MG TABS 765043 PREDNISONE Inactive LISINOPRIL 5 MG TABS 1 daily LISINOPRIL 5 MG TABS 157171 LISINOPRIL Inactive METOPROLOL TARTRATE 25 MG TABS 1/2 tablet twice a day METOPROLOL TARTRATE 25 MG TABS 431662 METOPROLOL TARTRATE Inactive OMEPRAZOLE 20 MG CPDR 1 qd OMEPRAZOLE 20 MG CPDR 868847 OMEPRAZOLE Inactive SIMVASTATIN 80 MG TABS 1/2 tablet daily SIMVASTATIN 80 MG TABS 102552 SIMVASTATIN Inactive BENZONATATE 200 MG CAPS Take 1 tablet 3 times a day as needed for cough 07/29 BENZONATATE 200 MG CAPS 677851 BENZONATATE Inactive Immunizations Vaccine Administration Date Value [...] W/DIFF - Chemistry sodium, serum 137 mmol/L 697-022 1952/08/16 carbon dioxide, venous blood 26.3 mmol/L 21.0-32.0 [...] 4.3-6.0 Lab Report: Lipid Panel, Glucose- [facility] - Chemistry cholesterol, serum 115 mg/dL 428-915 2773/08/18 triglyceride, serum, fasting 89 mg/dL 30-200 HDL cholesterol, serum 46 mg/dL 32-60 LDL cholesterol, serum 51 mg/dL 0-130 blood glucose 104 mg/dL 65-110 Lab Report: LIPID PANEL- [facility] - Chemistry cholesterol, serum 156 mg/dL 351-466 4474/02/20 HDL cholesterol, serum 52 mg/dL > OR=40 [...] mg/dL Encounters Code Encounter Date Provider Facility CPT-35947 Level 4 Est. Patient 16:29:19 CDT Mekhi Dukes MD [facility] CPT-82456 Level 3 New Patient 17:05:24 CDT Ismael Gracia MD [facility] CPT-45107 Level 2 Est. Patient 15:43:17 CDT Mekhi Dukes MD [facility] CPT-30105 Level 3 Est. [facility] 09:30:37 [facility] CPT-52604 Level 3 Est. Patient 10:00:14 CDT Mekhi Dukes MD [facility] CPT-44435 Level 3 Est. Patient 12:24:09 [facility]T [facility] CPT-88362 Level 3 Est. 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 Patient 14:53:34 LUNCH TRUCK DRIVER Prosper Arenas MD [facility] CPT-17049 Level 4 Est. Patient 10:05:41 LUNCH TRUCK DRIVER Moy [id number] Level 3 Est. Patient 11:18:32 CDT Moy Bradshawari [facility] CPT-41569 Level 4 Est. Patient 11:05:10 CDT Moy [facility] [id number] Level 3 Est. Patient 11:08:27 LUNCH TRUCK DRIVER Moy Garcia [facility] CPT-53963 Level 4 Est. Patient 10:43:59 CDT Prosper Arenas MD [facility] [place]-64329 Level 3 Est. Patient 10:51:19 CDT Moy Garcia [facility] CPT-17457 Level 3 Est. Patient 10:20:31 CDT Moy Garcia [facility] CPT-62703 Level 3 Est. Patient 17:08:45 CDT Moy Garcia [facility] CPT-16663 Level 2 Est. Patient 13:54:36 CDT Augustina Mata APRN [facility] CPT-90955 Level 3 Est. Patient 12:00:42 CDT Prosper Arenas MD [facility]-42712 Level 3 Est. Patient 09:57:28 LUNCH TRUCK DRIVER Moy Bradshawrex [facility] CPT-80061 Level 3 Est. Patient 11:41:19 LUNCH TRUCK DRIVER Moy Rodrigokymrex [facility]-01237 Level 4 Est. Patient 17:07:35 LUNCH TRUCK DRIVER Moy Bradshawari [facility] CPT-21537 Level 5 Est. Patient 14:33:32 CDT Moy UDRANTP [facility] CPT-42208 Level 3 Est. Patient 12:25:35 CDT Prosper Arenas MD [facility] Procedures Code Procedure Name Date Entry Date Standard Description CPT-000 Give Appropriate Flu Vaccine 10:13:55 LUNCH TRUCK DRIVER CPT-000 Give Immunizations Due 10:13:55 LUNCH TRUCK DRIVER CPT-35232 HGBA1C - LAB USE ONLY 09:42:47 LUNCH TRUCK DRIVER CPT-67408 TPSA - LAB USE ONLY 09:42:46 LUNCH TRUCK DRIVER CPT-45523 Venipuncture Draw Fee 09:42:46 LUNCH TRUCK DRIVER CPT-15423 Port a cath flush 13:33:18 LUNCH TRUCK DRIVER CPT-21701 First Vx - Ix admin for Medicare patients 10:42:57 LUNCH TRUCK DRIVER CPT-52914 Fluzone Preservative Free Intramuscular Suspension 10:42 :57 LUNCH TRUCK DRIVER CPT-G0438 Initial Annual Wellness Exam 10:13:55 LUNCH TRUCK DRIVER CPT-000 Give Appropriate Flu Vaccine 10:44:04 CDT CPT-000 Give Pneumovax 10:44:03 CDT CPT-07555 Port a cath flush 17:04:43 CDT CPT-70233 Prevnar 13 11:19:17 CDT CPT-51974 Fluzone Quadrivalent preservative free (>=3yrs.) 11:19: 17 CDT CPT-42705 Immunization Each Additional Inj 11:19:17 CDT CPT-54627 Immunization Single Admin 11:19:17 CDT CPT-32699 Port a cath flush 13:28:22 CDT CPT-TCMM Transitional Care Mgmt-Moderate 13:40:15 CDT CPT-G0008 Administration of Influenza Virus Vaccine 13:59:20 CDT CPT-22610 Fluzone High-Dose Intramuscular Suspension 13:59:20 CDT CPT-22533 Venipuncture Draw Fee 09:56:19 CDT CPT-OV Office Visit 15:46:10 CDT
--- OUTSIDE RECORDS SUMMARY | 2017-08-25 22:05 | XMS REPORT | Clinical Summary ---
Author Author Admin, IWONA Organization [facility] Address Unknown Phone Unavailable Allergies, Adverse Reactions, Alerts Allergy Name Reaction Description Start Date Severity Status Provider ERYTHROMYCIN Stomach cramps Moderate Active Prosper Arneas MD CODEINE Critical Active Maliheh Ziglari DIE CAST SUPERVISOR DARVOCET Critical Active Maliheh Ziglari DIE CAST SUPERVISOR LEVAQUIN Critical Active Maliheh Ziglari DIE CAST SUPERVISOR Conditions or Problems Problem Name Problem [...] type II, uncontrolled 250.02 Active Maliheh Ziglari DIE CAST SUPERVISOR Diabetes mellitus without mention of complication, [...] 1 daily for 4 days 2014 AZITHROMYCIN 29942743634 No Longer Active Augustina Rangelann MARIEN Active BENZONATATE 200 MG CAPS 1 tab, 2-3 times a day BENZONATATE 11134541009 Active Prosper Arenas MD Active NOVOLOG FLEXPEN 100 UNIT/ML SOPN Take 10 units with each meal, add 2u/50 for blood sugars above 150 INSULIN ASPART 95541717232 Active Malpapo Ziglari DIE CAST SUPERVISOR Active LANTUS SOLOSTAR 100 UNIT/ML SOLN 30 units at 4-5pm daily INSULIN GLARGINE 33577392686 Active Maliheh Ziglari DIE CAST SUPERVISOR Active NOVOLIN R RELION 100 UNIT/ML INJ SOLN 30- 40 units each meal sliding scale INSULIN REGULAR HUMAN 04721000770 No Longer Active Malcarissashoaib Wallaceglari DIE CAST SUPERVISOR Active LISINOPRIL 5 MG TABS 1 daily LISINOPRIL 71073482890 Active Prosper Arenas MD Active CALCIUM 500/D 500-200 MG-UNIT TABS one tablet daily CALCIUM CARBONATE- VITAMIN D 73260848261 Active Prosper Arenas MD Active REVLIMID 25 MG CAPS one capsule daily for 21 days then off for 7 days LENALIDOMIDE 09760536578 Active Prosper Arenas MD Active HYDROCHLOROTHIAZIDE 25 MG TABS 1 tablet by mouth daily HYDROCHLOROTHIAZIDE 20573983648 Active Prosper Arenas MD Active HYDROCODONE-ACETAMINOPHEN 5-500 MG TABS 1-2 FOUR TIMES A DAY, PRN HYDROCODONE-ACETAMINOPHEN 79975239354 No Longer Active Prosper Arenas MD Active TRAZODONE HCL 50 MG TAB three tablets at bed time TRAZODONE HCL 59537993585 Active Prosper Arenas MD Active SIMVASTATIN 80 MG TABS 1/2 tablet daily SIMVASTATIN 11435642438 Active Prosper Arenas MD Active METOPROLOL TARTRATE 25 MG TABS 1/2 tablet twice a day METOPROLOL TARTRATE 17223439878 Active Prosper Arenas MD Active HALOPERIDOL 0.5 MG TABS one tablet three times a day HALOPERIDOL 38960106686 Active Prosper Arenas MD Active ASPIRIN 81 MG TAB 1 tablet by mouth daily ASPIRIN 83428068866 Active Prosper Arenas MD Active OMEPRAZOLE 20 MG CPDR 1 qd OMEPRAZOLE 88923901132 Active DARCIE Miller Active DOXYCYCLINE HYCLATE 100 MG CAPS take one capsule by mouth twice daily for ten days DOXYCYCLINE HYCLATE 44065421065 No Longer Active Mekhi Dukes MD Active DOXYCYCLINE HYCLATE 100 MG CAPS take one capsule by mouth twice daily for ten days DOXYCYCLINE HYCLATE 100 MG CAPS 595577 DOXYCYCLINE HYCLATE Inactive HYDROCODONE-ACETAMINOPHEN 5-500 MG TABS [...] days 2014 ZITHROMAX Z-EDDIE 250 MG TABS 8365788 AZITHROMYCIN Inactive Immunizations Vaccine Administration Date Value [...] Description Chart Maintenance: Outside labs entered on [employer] - Chemistry sodium, serum 134 mmol/L potassium, serum 3.4 mmol/L blood glucose 268 mg/dL creatinine, serum 1.87 mg/dL aspartate aminotransferase (SGOT), serum 26 U/L alanine aminotransferase (SGPT), serum 44 U/L alkaline phosphatase, serum 110 U/L Chart Maintenance: Outside labs entered on [employer] - Hematology leukocyte count, blood 5.3 10*3/mm3 hemoglobin, blood 14.0 g/dL platelet count 240 10*3/mm3 Lab Report: Basic Metabolic Panel - Chemistry sodium, serum 137 mmol/L 643-219 4685/08/22 potassium, serum 4.0 mmol/L 3.5-5.2 chloride, serum 100 mmol/L 98-107 carbon dioxide, venous blood 27.9 mmol/L 21.0-32.0 blood glucose 109 mg/dL 65-110 calcium, serum 9.0 mg/dL 8.5-10.1 urea nitrogen, blood 15 mg/dL 7-18 creatinine, serum 2.00 mg/dL 0.60-1.30 Lab Report: Basic Metabolic Panel, HGBA1C - Chemistry sodium, serum 134 mmol/L 955-699 0134/01/27 potassium, serum 4.1 mmol/L 3.5-5.2 chloride, serum 96 mmol/L 98-107 carbon dioxide, venous blood 35.1 mmol/L 21.0-32.0 blood glucose 346 mg/dL 65-110 calcium, serum 8.4 mg/dL 8.5-10.1 urea nitrogen, blood 18 mg/dL 7-18 creatinine, serum 2.00 mg/dL 0.60-1.30 hemoglobin A1C, blood, as % of total hemoglobin 8.4 % 4.3-6.0 Lab Report: CBC W/DIFF, Comp. Metabolic Panel - Chemistry sodium, serum 137 mmol/L 633-224 5995/01/21 potassium, serum 4.1 mmol/L 3.5-5.2 chloride, serum 99 mmol/L 98-107 carbon dioxide, venous blood 30.9 mmol/L 21.0-32.0 blood glucose 303 mg/dL 65-110 urea nitrogen, blood 19 mg/dL 7-18 creatinine, serum 2.00 mg/dL 0.60-1.30 alanine aminotransferase (SGPT), serum 84 U/L 12-78 aspartate aminotransferase (SGOT), serum 41 U/L 15-37 calcium, serum 7.8 mg/dL 8.5-10.1 bilirubin, serum, total 0.50 mg/dL 0.00-1.00 sodium, serum 131 mmol/L 461-839 5010/03/18 potassium, serum 4.4 mmol/L 3.5-5.2 chloride, serum 95 mmol/L 98-107 carbon dioxide, venous blood 19.0 mmol/L 21.0-32.0 blood glucose 297 mg/dL 65-110 urea nitrogen, blood 19 mg/dL 7-18 creatinine, serum 1.70 mg/dL 0.60-1.30 alanine aminotransferase (SGPT), serum 184 U/L 12-78 aspartate aminotransferase (SGOT), serum 177 U/L 15-37 calcium, serum 7.8 mg/dL 8.5-10.1 bilirubin, serum, total 0.50 mg/dL 0.00-1.00 sodium, serum 135 mmol/L 976-266 8119/11/26 potassium, serum 4.4 mmol/L 3.5-5.2 chloride, serum [...] % 11.6-14.8 platelet count 172 10^3/MM^3 10*3/mm3 793-157 1780/01/21 leukocyte count, blood 6.3 10^3/MM^3 10*3/mm3 4.6-10.2 [...] % 11.6-14.8 platelet count 137 10^3/MM^3 10*3/mm3 685-969 2543/03/18 leukocyte count, blood 4.8 10^3/MM^3 10*3/mm3 4.6-10.2 [...] Ag - Chemistry sodium, serum 131 mmol/L 299-487 9778/10/13 potassium, serum 3.6 mmol/L 3.5-5.2 chloride, serum [...] 0.60 mg/dL 0.00-1.00 cholesterol, serum 98 mg/dL 203-578 2981/10/13 triglyceride, serum, fasting 125 mg/dL 30-200 HDL [...] mg/dL Encounters Code Encounter Date Provider Facility CPT-64432 Level 2 Est. Patient 13:54:36 CDT Augustina Mata APRN [facility] CPT-31795 Level 3 Est. Patient 12:00:42 CDT Prosper Arenas MD [facility] CPT-34643 Level 3 Est. 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 Patient 11:41:19 PRESSROOM FOREMAN [facility] CPT-22941 Level 4 Est. Patient 17:07:35 PRESSROOM FOREMAN [facility] CPT-22501 Level 5 Est. Patient 14:33:32 CDT [facility] CPT-42168 Level 3 Est. Patient 12:25:35 CDT Prosper Arenas MD [facility] Procedures Code Procedure Name Date Entry Date Standard Description CPT-TCMM Transitional Care Mgmt-Moderate 13:40:15 CDT CPT-G0008 Administration of Influenza Virus Vaccine 13:59:20 CDT CPT-77765 Fluzone High-Dose Intramuscular Suspension 13:59:20 CDT CPT-22268 Venipuncture Draw Fee 09:56:19 CDT CPT-OV Office Visit 15:46:10 CDT
--- OUTSIDE RECORDS SUMMARY | 2017-08-25 22:06 | XMS REPORT | Clinical Summary ---
Author Author Admin, IWONA Organization [employer] Address Unknown Phone Unavailable Allergies, Adverse Reactions, Alerts Allergy Name Reaction Description Start Date Severity Status Provider ERYTHROMYCIN Stomach cramps Moderate Active Prosper Arenas MD CODEINE Critical Active Maliheh Ziglari COMMUNITY OUTREACH DIRECTOR DARVOCET Critical Active Maliheh Ziglari COMMUNITY OUTREACH DIRECTOR LEVAQUIN Critical Active Maliheh Ziglari COMMUNITY OUTREACH DIRECTOR Conditions or Problems Problem Name Problem Code Onset Date Status Entry Date Provider Comment Standard Description Annotate Diabetes, Type 2 250.00 Resolved 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, type [...] type II, uncontrolled 250.02 Active Maliheh Rodrigoglari COMMUNITY OUTREACH DIRECTOR Diabetes mellitus without mention of complication, [...] with hyperglycemia 250.00 Active 03/21 Maliheh Ziglari COMMUNITY OUTREACH DIRECTOR Diabetes mellitus without mention of complication, type II or unspecified type, not stated as uncontrolled [facility] use of insulin treatment V58.67 Active Luxiheh Rodrigoglari COMMUNITY OUTREACH DIRECTOR Long-term (current) use of insulin Diabetes mellitus, type II with hypoglycemia 250.80 Active 07/22 Maliheh Ziglari COMMUNITY OUTREACH DIRECTOR Diabetes mellitus with other specified manifestations, type II or unspecified type, not stated as uncontrolled 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 Maliheh Ziglari COMMUNITY OUTREACH DIRECTOR Diabetes mellitus with renal manifestations, type II or unspecified type, not stated as uncontrolled Wellness exam V70.0 Active Dee Palmer APRN Routine general medical examination at a health care facility Fitting and adjustment of vascular catheter V58.81 Active 02/06 Dee Palmer APRN Encounter for fitting and adjustment of vascular catheter Unawareness of hypoglycemia in diabetes mellitus, type II 250.80 Active Maliheh Ziglari COMMUNITY OUTREACH DIRECTOR Diabetes mellitus with other specified manifestations, [...] 80 MG TABS 1/2 tablet daily SIMVASTATIN 87346466792 No Longer Active Mkehi Dukes MD Active OMEPRAZOLE 20 MG CPDR 1 qd OMEPRAZOLE 39078355443 No Longer Active Mekhi Dukes MD Active METOPROLOL TARTRATE 25 MG TABS 1/2 tablet twice a day METOPROLOL TARTRATE 48776754171 No Longer Active Mekhi Dukes MD Active LISINOPRIL 5 MG TABS 1 daily LISINOPRIL 05996081522 No Longer Active Mekhi Dukes MD Active NOVOLOG FLEXPEN 100 UNIT/ML SOPN Take 8 units with each meal, add 1u/50 for blood sugars above 150. INSULIN ASPART 48611831149 Active Moy DURANTP Active GABAPENTIN 300 MG ORAL CAPS 1 tab BID GABAPENTIN 64642327260 Active Tami Miller RN Active PREDNISONE 20 MG TABS Take 2 daily for 3 days and then 1 daily for 3 days PREDNISONE 02229043467 No Longer Active Maliheh Ziglari COMMUNITY OUTREACH DIRECTOR Active BENZONATATE 200 MG CAPS Take 1 tablet 3 times a day as needed for cough 07/29 BENZONATATE 18907848760 No Longer Active Prosper Arenas MD Active HYDROCHLOROTHIAZIDE 25 MG TABS 1 tablet by mouth daily HYDROCHLOROTHIAZIDE 25177660472 No Longer Active Prosper Arenas MD Active ACCU-CHEK JOANNA PLUS STRP check blood sugars 5x a day, before each meal and bedtime and 15 minutes after treating a low blood. sugar GLUCOSE BLOOD 30003669680 Active Maliheh Ziglari COMMUNITY OUTREACH DIRECTOR Active LANTUS SOLOSTAR 100 UNIT/ML SOLN Take 40 units at 7-8pm daily INSULIN GLARGINE 25616335155 Active Maliheh Ziglari COMMUNITY OUTREACH DIRECTOR Active MECLIZINE HCL 25 MG TABS 1 daily needed for dizziness MECLIZINE HCL 78050408840 No Longer Active Maliheh Ziglari COMMUNITY OUTREACH DIRECTOR Active BENZONATATE 200 MG CAPS 1 tab, 2-3 times a day BENZONATATE 96506416333 No Longer Active Maliheh Ziglari COMMUNITY OUTREACH DIRECTOR Active HALOPERIDOL 0.5 MG TABS one tablet three times a day HALOPERIDOL 81266915818 No Longer Active Moy Ziglari COMMUNITY OUTREACH DIRECTOR Active TRAZODONE HCL 50 MG TAB three tablets at bed time TRAZODONE HCL 79476387876 No Longer Active Malshoaib Ziglari COMMUNITY OUTREACH DIRECTOR Active REVLIMID 25 MG CAPS one capsule daily for 21 days then off for 7 days 2014 LENALIDOMIDE 81168551739 No Longer Active Maleh Ziglari COMMUNITY OUTREACH DIRECTOR Active ZITHROMAX Z-EDDIE 250 MG TABS 2 today, then 1 daily for 4 days 2014 AZITHROMYCIN 07613758586 No Longer Active Augustina Yokum CUSTODIAL ENGINEER Active NOVOLIN R RELION 100 UNIT/ML INJ SOLN 30- 40 units each meal sliding scale INSULIN REGULAR HUMAN 25077046421 No Longer Active Moy Rodrigoglari COMMUNITY OUTREACH DIRECTOR Active CALCIUM 500/D 500-200 MG-UNIT TABS one tablet daily CALCIUM CARBONATE- VITAMIN D 32841212453 Active Prosper Arenas MD Active HYDROCODONE-ACETAMINOPHEN 5-500 MG TABS 1-2 FOUR TIMES A DAY, PRN HYDROCODONE-ACETAMINOPHEN 83592917793 No Longer Active Prosper Arenas MD Active ASPIRIN 81 MG TAB 1 tablet by mouth daily ASPIRIN 55740059829 Active Prosper Arenas MD Active DOXYCYCLINE HYCLATE 100 MG CAPS take one capsule by mouth twice daily for ten days DOXYCYCLINE HYCLATE 76241235497 No Longer Active Mekhi Dukes MD Active DOXYCYCLINE HYCLATE 100 MG CAPS take one capsule by mouth twice daily for ten days DOXYCYCLINE HYCLATE 100 MG CAPS 9187590 DOXYCYCLINE HYCLATE Inactive HALOPERIDOL 0.5 MG TABS one tablet three times a day HALOPERIDOL 0.5 MG TABS 804561 HALOPERIDOL Inactive HYDROCHLOROTHIAZIDE 25 MG TABS 1 tablet by mouth daily HYDROCHLOROTHIAZIDE 25 MG TABS 273071 HYDROCHLOROTHIAZIDE Inactive PREDNISONE 20 MG TABS Take 2 daily for 3 days and then 1 daily for 3 days PREDNISONE 20 MG TABS 442156 PREDNISONE Inactive TRAZODONE HCL 50 MG TAB three tablets at bed time TRAZODONE HCL 50 MG TAB 421164 TRAZODONE HCL Inactive LISINOPRIL 5 MG TABS 1 daily LISINOPRIL 5 MG TABS 234681 LISINOPRIL Inactive MECLIZINE HCL 25 MG TABS 1 daily needed for dizziness MECLIZINE HCL 25 MG TABS 186223 MECLIZINE HCL Inactive HYDROCODONE-ACETAMINOPHEN 5-500 MG TABS 1-2 FOUR TIMES A DAY, PRN HYDROCODONE-ACETAMINOPHEN 5-500 MG TABS 996929 HYDROCODONE- ACETAMINOPHEN Inactive SIMVASTATIN 80 MG TABS 1/2 tablet daily SIMVASTATIN 80 MG TABS 349345 SIMVASTATIN Inactive BENZONATATE 200 MG CAPS Take 1 tablet 3 times a day as needed for cough 07/29 BENZONATATE 200 MG CAPS 379221 BENZONATATE Inactive BENZONATATE 200 MG CAPS 1 tab, 2-3 times a day BENZONATATE 200 MG CAPS 607328 BENZONATATE Inactive OMEPRAZOLE 20 MG CPDR 1 qd OMEPRAZOLE 20 MG CPDR 502962 OMEPRAZOLE Inactive ZITHROMAX Z-EDDIE 250 MG TABS 2 today, then 1 daily for 4 days 2014 ZITHROMAX Z-EDDIE 250 MG TABS 838030 AZITHROMYCIN Inactive METOPROLOL TARTRATE 25 MG TABS 1/2 tablet twice a day METOPROLOL TARTRATE 25 MG TABS 946073 METOPROLOL TARTRATE Inactive REVLIMID 25 MG CAPS one capsule [...] W/DIFF - Chemistry sodium, serum 137 mmol/L 182-297 7733/08/16 carbon dioxide, venous blood 26.3 mmol/L 21.0-32.0 [...] 4.3-6.0 Lab Report: Lipid Panel, Glucose- [facility] - Chemistry cholesterol, serum 115 mg/dL 562-941 0352/08/18 triglyceride, serum, fasting 89 mg/dL 30-200 HDL cholesterol, serum 46 mg/dL 32-60 LDL cholesterol, serum 51 mg/dL 0-130 blood glucose 104 mg/dL 65-110 Lab Report: LIPID PANEL- [facility] - Chemistry cholesterol, serum 156 mg/dL 495-523 9955/02/20 HDL cholesterol, serum 52 mg/dL > OR=40 [...] mg/dL Encounters Code Encounter Date Provider Facility CPT-85329 Level 4 Est. Patient 16:29:19 CDT Mekhi Dukes MD [facility] CPT-98851 Level 3 New Patient 17:05:24 CDT Ismael Gracia MD [facility] CPT-36008 Level 2 Est. Patient 15:43:17 CDT Mekhi Dukes MD [facility] CPT-35666 Level 3 Est. [facility] 09[facility]30:[address] [facility] CPT-80084 Level 3 Est. Patient 10:00:14 CDT Mekhi Dukes MD [facility] CPT-07733 Level 3 Est. Patient 12:24:[address] [facility] CPT-96587 Level 3 Est. Patient 14:34:57 CDT Prosper Arenas MD [facility] CPT-63666 Level 3 New Patient 15:44:53 CHIEF CLIENT OFFICER Mekhi Dukes MD [facility] CPT-20292 Level 3 Est. Patient 14:53:34 CHIEF CLIENT OFFICER Prosper Arenas MD [facility] CPT-42616 Level 4 Est. Patient 10:05:41 CHIEF CLIENT OFFICER Moy Garcia [facility]-95161 Level 3 Est. Patient 11:18:32 CDT Moy Bradshawari [facility] CPT-73659 Level 4 Est. Patient 11:05:10 CDT Moy Garcia [facility]-23444 Level 3 Est. Patient 11:08:27 CHIEF CLIENT OFFICER Moy Garcia [facility] CPT-30985 Level 4 Est. Patient 10:43:59 CDT Prosper Arenas MD [facility]-21480 Level 3 Est. Patient 10:51:19 CDT Moy Garcia [facility] CPT-19255 Level 3 Est. Patient 10:20:31 CDT Moy Garcia [facility] CPT-31253 Level 3 Est. Patient 17:08:45 CDT Moy Garcia [facility] CPT-29757 Level 2 Est. Patient 13:54:36 CDT Augustina Mata APRN [facility] CPT-53874 Level 3 Est. Patient 12:00:42 CDT Prosper Arenas MD [facility]-30403 Level 3 Est. Patient 09:57:28 CHIEF CLIENT OFFICER Moy Bradshawrex [facility] CPT-23219 Level 3 Est. Patient 11:41:19 CHIEF CLIENT OFFICER Moy Rodrigokymrex [facility]-54224 Level 4 Est. Patient 17:07:35 CHIEF CLIENT OFFICER Moy Bradshawari [facility] CPT-23520 Level 5 Est. Patient 14:33:32 CDT Moy DURANTP [facility] CPT-77104 Level 3 Est. Patient 12:25:35 CDT Prosper Arenas MD [facility] Procedures Code Procedure Name Date Entry Date Standard Description CPT-000 Give Appropriate Flu Vaccine 10:13:55 CHIEF CLIENT OFFICER CPT-000 Give Immunizations Due 10:13:55 CHIEF CLIENT OFFICER CPT-31303 HGBA1C - LAB USE ONLY 09:42:47 CHIEF CLIENT OFFICER CPT-62744 TPSA - LAB USE ONLY 09:42:46 CHIEF CLIENT OFFICER CPT-18653 Venipuncture Draw Fee 09:42:46 CHIEF CLIENT OFFICER CPT-94422 Port a cath flush 13:33:18 CHIEF CLIENT OFFICER CPT-35429 First Vx - Ix admin for Medicare patients 10:42:57 CHIEF CLIENT OFFICER CPT-33992 Fluzone Preservative Free Intramuscular Suspension 10:42 :57 CHIEF CLIENT OFFICER CPT-G0438 Initial Annual Wellness Exam 10:13:55 CHIEF CLIENT OFFICER CPT-000 Give Appropriate Flu Vaccine 10:44:04 CDT CPT-000 Give Pneumovax 10:44:03 CDT CPT-34232 Port a cath flush 17:04:43 CDT CPT-62351 Prevnar 13 11:19:17 CDT CPT-61246 Fluzone Quadrivalent preservative free (>=3yrs.) 11:19: 17 CDT CPT-64759 Immunization Each Additional Inj 11:19:17 CDT CPT-68660 Immunization Single Admin 11:19:17 CDT CPT-33576 Port a cath flush 13:28:22 CDT CPT-TCMM Transitional Care Mgmt-Moderate 13:40:15 CDT CPT-G0008 Administration of Influenza Virus Vaccine 13:59:20 CDT CPT-25855 Fluzone High-Dose Intramuscular Suspension 13:59:20 CDT CPT-81604 Venipuncture Draw Fee 09:56:19 CDT CPT-OV Office Visit 15:46:10 CDT
--- OUTSIDE RECORDS SUMMARY | 2017-08-25 22:06 | XMS REPORT | Clinical Summary ---
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, 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 II [...] type II, uncontrolled 250.02 Active Maliheh Rodrigoglari EXHIBITION DESIGNER Diabetes mellitus without mention of complication, [...] with hyperglycemia 250.00 Active 03/21 Maliheh Ziglari EXHIBITION DESIGNER Diabetes mellitus without mention of complication, type II or unspecified type, not stated as uncontrolled senior living use of insulin treatment V58.67 Active Luxiheh Rodrigoglari EXHIBITION DESIGNER Long-term (current) use of insulin Diabetes mellitus, type II with hypoglycemia 250.80 Active 07/22 Maliheh Ziglari EXHIBITION DESIGNER Diabetes mellitus with other specified manifestations, type II or unspecified type, not stated as uncontrolled 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 INSULIN ASPART 84751187432 Active Myo DURANTP Active GABAPENTIN 300 MG ORAL CAPS 1 tab BID GABAPENTIN 17332769671 Active Tami Miller RN Active PREDNISONE 20 MG TABS Take 2 daily for 3 days and then 1 daily for 3 days PREDNISONE 81115292165 No Longer Active Maliheh Ziglari EXHIBITION DESIGNER Active BENZONATATE 200 MG CAPS Take 1 tablet 3 times a day as needed for cough 07/29 BENZONATATE 09791309551 No Longer Active Prosper Arenas MD Active HYDROCHLOROTHIAZIDE 25 MG TABS 1 tablet by mouth daily HYDROCHLOROTHIAZIDE 66865700659 No Longer Active Prosper Arenas MD Active ACCU-CHEK JOANNA PLUS STRP check blood sugars 5x a day, before each meal and bedtime and 15 minutes after treating a low blood. sugar GLUCOSE BLOOD 74200989068 Active Maliheh Ziglari EXHIBITION DESIGNER Active LANTUS SOLOSTAR 100 UNIT/ML SOLN Take 40 units at 7-8pm daily INSULIN GLARGINE 13867686198 Active Maliheh Ziglari EXHIBITION DESIGNER Active MECLIZINE HCL 25 MG TABS 1 daily needed for dizziness MECLIZINE HCL 37796772228 No Longer Active Maliheh Ziglari EXHIBITION DESIGNER Active BENZONATATE 200 MG CAPS 1 tab, 2-3 times a day BENZONATATE 74805204038 No Longer Active Maliheh Ziglari EXHIBITION DESIGNER Active HALOPERIDOL 0.5 MG TABS one tablet three times a day HALOPERIDOL 04442132505 No Longer Active Maliheh Ziglari EXHIBITION DESIGNER Active TRAZODONE HCL 50 MG TAB three tablets at bed time TRAZODONE HCL 00117240784 No Longer Active Maliheh Ziglari EXHIBITION DESIGNER Active REVLIMID 25 MG CAPS one capsule daily for 21 days then off for 7 days 2014 LENALIDOMIDE 52731360774 No Longer Active Maliheh Ziglari EXHIBITION DESIGNER Active ZITHROMAX Z-EDDIE 250 MG TABS 2 today, then 1 daily for 4 days 2014 AZITHROMYCIN 99667109635 No Longer Active Augustina Mata WEB CONTENT MANAGER Active NOVOLIN R RELION 100 UNIT/ML INJ SOLN 30- 40 units each meal sliding scale INSULIN REGULAR HUMAN 13692519241 No Longer Active Moy PARISH Active LISINOPRIL 5 MG TABS 1 daily LISINOPRIL 70088026713 Active Prosper Arenas MD Active CALCIUM 500/D 500-200 MG-UNIT TABS one tablet daily CALCIUM CARBONATE- VITAMIN D 54035563962 Active Prosper Arenas MD Active HYDROCODONE-ACETAMINOPHEN 5-500 MG TABS 1-2 FOUR TIMES A DAY, PRN HYDROCODONE-ACETAMINOPHEN 36629819285 No Longer Active Prosper Arenas MD Active SIMVASTATIN 80 MG TABS 1/2 tablet daily SIMVASTATIN 17987195005 Active Prosper Arenas MD Active METOPROLOL TARTRATE 25 MG TABS 1/2 tablet twice a day METOPROLOL TARTRATE 15446694732 Active Prosper Arenas MD Active ASPIRIN 81 MG TAB 1 tablet by mouth daily ASPIRIN 20622501851 Active Prosper Arenas MD Active OMEPRAZOLE 20 MG CPDR 1 qd OMEPRAZOLE 92848915802 Active DARCIE Miller Active DOXYCYCLINE HYCLATE 100 MG CAPS take one capsule by mouth twice daily for ten days DOXYCYCLINE HYCLATE 03436888061 No Longer Active Mekhi Dukes MD Active DOXYCYCLINE HYCLATE 100 MG CAPS take one capsule by mouth twice daily for ten days DOXYCYCLINE HYCLATE 100 MG CAPS 1296164 DOXYCYCLINE HYCLATE Inactive HYDROCODONE-ACETAMINOPHEN 5-500 MG TABS [...] days 2014 ZITHROMAX Z-EDDIE 250 MG TABS 1718173 AZITHROMYCIN Inactive REVLIMID 25 MG CAPS one capsule daily for 21 days then off for 7 days 2014 REVLIMID 25 MG CAPS LENALIDOMIDE Inactive TRAZODONE HCL 50 MG TAB three tablets at bed time TRAZODONE HCL 50 MG TAB 939380 TRAZODONE HCL Inactive HALOPERIDOL 0.5 MG TABS one tablet three times a day HALOPERIDOL 0.5 MG TABS 535982 HALOPERIDOL Inactive BENZONATATE 200 MG CAPS 1 tab, 2-3 times a day BENZONATATE 200 MG CAPS 303281 BENZONATATE Inactive MECLIZINE HCL 25 MG TABS 1 daily needed for dizziness MECLIZINE HCL 25 MG TABS 799148 MECLIZINE HCL Inactive HYDROCHLOROTHIAZIDE 25 MG TABS 1 tablet by mouth daily HYDROCHLOROTHIAZIDE 25 MG TABS 368001 HYDROCHLOROTHIAZIDE Inactive PREDNISONE 20 MG TABS Take 2 daily for 3 days and then 1 daily for 3 days PREDNISONE 20 MG TABS 659634 PREDNISONE Inactive BENZONATATE 200 MG CAPS Take 1 tablet 3 times a day as needed for cough 07/29 BENZONATATE 200 MG CAPS 334078 BENZONATATE Inactive Immunizations Vaccine Administration Date Value [...] W/DIFF - Chemistry sodium, serum 137 mmol/L 566-482 5196/08/16 carbon dioxide, venous blood 26.3 mmol/L 21.0-32.0 [...] LABS - Chemistry cholesterol, serum 115 mg/dL 913-256 1888/08/18 triglyceride, serum, fasting 89 mg/dL 30-200 HDL cholesterol, serum 46 mg/dL 32-60 LDL cholesterol, serum 51 mg/dL 0-130 blood glucose 104 mg/dL 65-110 Lab Report: LIPID PANEL- REPOWER LAB - Chemistry cholesterol, serum 156 mg/dL 304-763 6983/02/20 HDL cholesterol, serum 52 mg/dL > OR=40 [...] mg/dL Encounters Code Encounter Date Provider Facility CPT-06415 Level 3 Est. Patient 09:30:37 CDT [facility] CPT-13935 Level 3 Est. Patient 10:00:14 CDT Mekhi Dukes MD [facility] CPT-71342 Level 3 Est. Patient 12:24:09 [facility] Level 3 Est. Patient 14:34:57 CDT Prosper Arenas MD [facility] CPT-64592 Level 3 New Patient 15:44:53 FACILITIES AND GROUNDS DIRECTOR Mekhi Dukes MD [facility] CPT-01295 Level 3 Est. Patient 14:53:34 FACILITIES AND GROUNDS DIRECTOR Prosper Arenas MD [facility] CPT-62220 Level 4 Est. Patient 10:05:41 FACILITIES AND GROUNDS DIRECTOR [facility] [address] [facility] CPT-44343 Level 3 Est. Patient 11:18:32 [facility] CPT-42836 Level 4 Est. Patient 11:05:10 CDT [facility] CPT-57563 Level 3 Est. Patient 11:08:27 FACILITIES AND GROUNDS DIRECTOR [facility] CPT-80689 Level 4 Est. Patient 10:43:59 CDT Prosper Arenas MD [facility] CPT-14579 Level 3 Est. Patient 10:51:19 CDT [facility]PT-84653 Level 3 Est. Patient 10:20:31 CDT [facility] CPT-11321 Level 3 Est. Patient 17:08:45 CDT [facility] CPT-09424 Level 2 Est. Patient 13:54:36 CDT Augustina Mata APRN [facility] CPT-95906 Level 3 Est. Patient 12:00:42 CDT Prosper Arenas MD [facility] CPT-15544 Level 3 Est. Patient 09:57:28 FACILITIES AND GROUNDS DIRECTOR [facility] CPT-58328 Level 3 Est. Patient 11:41:19 FACILITIES AND GROUNDS DIRECTOR [facility] Level 4 Est. Patient 17:07:35 FACILITIES AND GROUNDS DIRECTOR [facility] CPT-52435 Level 5 Est. Patient 14:33:32 [facility]T [facility] CPT-24128 Level 3 Est. Patient 12:25:35 CDT Prosper Arenas MD [facility] Procedures Code Procedure Name Date Entry Date Standard Description CPT-000 Give Appropriate Flu Vaccine 10:13:55 FACILITIES AND GROUNDS DIRECTOR CPT-000 Give Immunizations Due 10:13:55 FACILITIES AND GROUNDS DIRECTOR CPT-46128 HGBA1C - LAB USE ONLY 09:42:47 FACILITIES AND GROUNDS DIRECTOR CPT-73069 TPSA - LAB USE ONLY 09:42:46 FACILITIES AND GROUNDS DIRECTOR CPT-54464 Venipuncture Draw Fee 09:42:46 FACILITIES AND GROUNDS DIRECTOR CPT-91391 Port a cath flush 13:33:18 FACILITIES AND GROUNDS DIRECTOR CPT-28828 First Vx - Ix admin for Medicare patients 10:42:57 FACILITIES AND GROUNDS DIRECTOR CPT-09580 Fluzone Preservative Free Intramuscular Suspension 10:42 :57 FACILITIES AND GROUNDS DIRECTOR CPT-G0438 Initial Annual Wellness Exam 10:13:55 FACILITIES AND GROUNDS DIRECTOR CPT-000 Give Appropriate Flu Vaccine 10:44:04 CDT CPT-000 Give Pneumovax 10:44:03 CDT CPT-52372 Port a cath flush 17:04:43 CDT CPT-57958 Prevnar 13 11:19:17 CDT CPT-24569 Fluzone Quadrivalent preservative free (>=3yrs.) 11:19: 17 CDT CPT-59650 Immunization Each Additional Inj 11:19:17 CDT CPT-45565 Immunization Single Admin 11:19:17 CDT CPT-95262 Port a cath flush 13:28:22 CDT CPT-TCMM Transitional Care Mgmt-Moderate 13:40:15 CDT CPT-G0008 Administration of Influenza Virus Vaccine 13:59:20 CDT CPT-34193 Fluzone High-Dose Intramuscular Suspension 13:59:20 CDT CPT-40179 Venipuncture Draw Fee 09:56:19 CDT CPT-OV Office Visit 15:46:10 CDT
--- OUTSIDE RECORDS SUMMARY | 2017-08-25 22:07 | XMS REPORT | Clinical Summary ---
Author Author Admin, IWONA Organization [facility] Address Unknown Phone Unavailable Allergies, Adverse Reactions, Alerts Allergy Name Reaction Description Start Date Severity Status Provider ERYTHROMYCIN Stomach cramps Moderate Active Prosper Arenas MD CODEINE Critical Active Maliheh Ziglari FURNITURE INSPECTOR DARVOCET Critical Active Maliheh Ziglari FURNITURE INSPECTOR LEVAQUIN Critical Active Maliheh Ziglari FURNITURE INSPECTOR Conditions or Problems Problem Name Problem [...] type II, uncontrolled 250.02 Active Maliheh Ziglari FURNITURE INSPECTOR Diabetes mellitus without mention of complication, [...] or unspecified type, not stated as uncontrolled 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 INSULIN GLARGINE 41732589206 Active Maliheh Ziglari FURNITURE INSPECTOR Active MECLIZINE HCL 25 MG TABS 1 daily needed for dizziness MECLIZINE HCL 90740068032 No Longer Active Maleh Ziglari FURNITURE INSPECTOR Active ACCU-CHEK JOANNA PLUS STRP check blood sugars 3x a day GLUCOSE BLOOD 37993012448 Active Maliheh Ziglari FURNITURE INSPECTOR Active NOVOLOG FLEXPEN 100 UNIT/ML SOPN Take 25 units with each meal, add 2u/50 for blood sugars above 150. INSULIN ASPART 19627055499 Active [facility] Ziglari FURNITURE INSPECTOR Active BENZONATATE 200 MG CAPS 1 tab, 2-3 times a day BENZONATATE 45925343651 No Longer Active Maleh Ziglari FURNITURE INSPECTOR Active HALOPERIDOL 0.5 MG TABS one tablet three times a day HALOPERIDOL 46037712235 No Longer Active Maleh Ziglari FURNITURE INSPECTOR Active TRAZODONE HCL 50 MG TAB three tablets at bed time TRAZODONE HCL 16542424491 No Longer Active [facility] Ziglari FURNITURE INSPECTOR Active REVLIMID 25 MG CAPS one capsule daily for 21 days then off for 7 days 2014 LENALIDOMIDE 92014219644 No Longer Active [facility] Ziglari FURNITURE INSPECTOR Active ZITHROMAX Z-EDDIE 250 MG TABS 2 today, then 1 daily for 4 days 2014 AZITHROMYCIN 28038816669 No Longer Active Augustina Amritgunnar SECURITIES VAULT SUPERVISOR Active NOVOLIN R RELION 100 UNIT/ML INJ SOLN 30- 40 units each meal sliding scale INSULIN REGULAR HUMAN 83945225852 No Longer Active Maleh Ziglari FURNITURE INSPECTOR Active LISINOPRIL 5 MG TABS 1 daily LISINOPRIL 08440180424 Active Prosper Arenas MD Active CALCIUM 500/D 500-200 MG-UNIT TABS one tablet daily CALCIUM CARBONATE- VITAMIN D 12299282092 Active Prosper Arenas MD Active HYDROCHLOROTHIAZIDE 25 MG TABS 1 tablet by mouth daily HYDROCHLOROTHIAZIDE 93635036610 Active Prosper Arenas MD Active HYDROCODONE-ACETAMINOPHEN 5-500 MG TABS 1-2 FOUR TIMES A DAY, PRN HYDROCODONE-ACETAMINOPHEN 32407794991 No Longer Active Prosper Arenas MD Active SIMVASTATIN 80 MG TABS 1/2 tablet daily SIMVASTATIN 33293958840 Active Prosper Arenas MD Active METOPROLOL TARTRATE 25 MG TABS 1/2 tablet twice a day METOPROLOL TARTRATE 55958481879 Active Prosper Arenas MD Active ASPIRIN 81 MG TAB 1 tablet by mouth daily ASPIRIN 22403727210 Active Prosper Arenas MD Active OMEPRAZOLE 20 MG CPDR 1 qd OMEPRAZOLE 18035740982 Active DARCIE Miller Active DOXYCYCLINE HYCLATE 100 MG CAPS take one capsule by mouth twice daily for ten days DOXYCYCLINE HYCLATE 55795382160 No Longer Active Mekhi Dukes MD Active DOXYCYCLINE HYCLATE 100 MG CAPS take one capsule by mouth twice daily for ten days DOXYCYCLINE HYCLATE 100 MG CAPS 5953421 DOXYCYCLINE HYCLATE Inactive HYDROCODONE-ACETAMINOPHEN 5-500 MG TABS [...] days 2014 ZITHROMAX Z-EDDIE 250 MG TABS 9815828 AZITHROMYCIN Inactive REVLIMID 25 MG CAPS one capsule daily for 21 days then off for 7 days 2014 REVLIMID 25 MG CAPS LENALIDOMIDE Inactive TRAZODONE HCL 50 MG TAB three tablets at bed time TRAZODONE HCL 50 MG TAB 783833 TRAZODONE HCL Inactive HALOPERIDOL 0.5 MG TABS one tablet three times a day HALOPERIDOL 0.5 MG TABS 874375 HALOPERIDOL Inactive BENZONATATE 200 MG CAPS 1 tab, 2-3 times a day BENZONATATE 200 MG CAPS 297614 BENZONATATE Inactive MECLIZINE HCL 25 MG TABS 1 daily needed for dizziness MECLIZINE HCL 25 MG TABS 248215 MECLIZINE HCL Inactive Immunizations Vaccine Administration Date [...] mg/dL Encounters Code Encounter Date Provider Facility CPT-32859 Level 3 Est. Patient 11:18:32 CDT [facility] CPT-51757 Level 4 Est. Patient 11:05:10 CDT [facility] CPT-68458 Level 3 Est. Patient 11:08:27 ELECTRONIC MAINTENANCE SUPERVISOR [facility] CPT-55900 Level 4 Est. Patient 10:43:59 CDT Prosper Arenas MD [facility] CPT-19774 Level 3 Est. Patient 10:51:19 CDT [facility] CPT-02395 Level 3 Est. Patient 10:20:31 CDT [facility] CPT-57764 Level 3 Est. Patient 17:08:45 CDT [facility] CPT-96594 Level 2 Est. Patient 13:54:36 CDT Augustina Mata APRN [facility] CPT-06523 Level 3 Est. Patient 12:00:42 CDT Prosper Arenas MD [facility] CPT-14474 Level 3 Est. Patient 09:57:28 ELECTRONIC MAINTENANCE SUPERVISOR [facility] CPT-49945 Level 3 Est. Patient 11:41:19 ELECTRONIC MAINTENANCE SUPERVISOR [facility] CPT-13508 Level 4 Est. Patient 17:07:35 ELECTRONIC MAINTENANCE SUPERVISOR [facility] CPT-10217 Level 5 Est. Patient 14:33:32 CDT [facility] CPT-99917 Level 3 Est. Patient 12:25:35 CDT Prosper Arenas MD [facility] Procedures Code Procedure Name Date Entry Date Standard Description CPT-22524 Port a cath flush 13:33:18 ELECTRONIC MAINTENANCE SUPERVISOR CPT-06650 First Vx - Ix admin for Medicare patients 10:42:57 ELECTRONIC MAINTENANCE SUPERVISOR CPT-57650 Fluzone Preservative Free Intramuscular Suspension 10:42 :57 ELECTRONIC MAINTENANCE SUPERVISOR CPT-G0438 Initial Annual Wellness Exam 10:13:55 ELECTRONIC MAINTENANCE SUPERVISOR CPT-000 Give Appropriate Flu Vaccine 10:44:04 CDT CPT-000 Give Pneumovax 10:44:03 CDT CPT-23830 Port a cath flush 17:04:43 CDT CPT-59573 Prevnar 13 11:19:17 CDT CPT-22132 Fluzone Quadrivalent preservative free (>=3yrs.) 11:19: 17 CDT CPT-06950 Immunization Each Additional Inj 11:19:17 CDT CPT-29550 Immunization Single Admin 11:19:17 CDT CPT-94325 Port a cath flush 13:28:22 CDT CPT-TCMM Transitional Care Mgmt-Moderate 13:40:15 CDT CPT-G0008 Administration of Influenza Virus Vaccine 13:59:20 CDT CPT-12625 Fluzone High-Dose Intramuscular Suspension 13:59:20 CDT CPT-03377 Venipuncture Draw Fee 09:56:19 CDT CPT-OV Office Visit 15:46:10 CDT
--- OUTSIDE RECORDS SUMMARY | 2017-08-25 22:08 | XMS REPORT | Clinical Summary ---
Author Author Admin, IWONA Organization [employer] Address Unknown Phone Unavailable Allergies, Adverse Reactions, Alerts Allergy Name Reaction Description Start Date Severity Status Provider ERYTHROMYCIN Stomach cramps Moderate Active Prosper Arenas MD CODEINE Critical Active Maliheh Ziglari ASH PIT WORKER DARVOCET Critical Active Maliheh Ziglari ASH PIT WORKER LEVAQUIN Critical Active Maliheh Ziglari ASH PIT WORKER Conditions or Problems Problem Name Problem [...] type II, uncontrolled 250.02 Active Maliheh Ziglari ASH PIT WORKER Diabetes mellitus without mention of complication, [...] unspecified type, not stated as uncontrolled 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 INSULIN GLARGINE 44012611798 Active Maliheh Ziglari ASH PIT WORKER Active MECLIZINE HCL 25 MG TABS 1 daily needed for dizziness MECLIZINE HCL 71826404157 No Longer Active Maleh Ziglari ASH PIT WORKER Active ACCU-CHEK JOANNA PLUS STRP check blood sugars 3x a day GLUCOSE BLOOD 21840460510 Active Maliheh Ziglari ASH PIT WORKER Active NOVOLOG FLEXPEN 100 UNIT/ML SOPN Take 25 units with each meal, add 2u/50 for blood sugars above 150. INSULIN ASPART 18909610509 [facility] Ziglari ASH PIT WORKER Active BENZONATATE 200 MG CAPS 1 tab, 2-3 times a day BENZONATATE 98160601111 No Longer Active Maleh Ziglari ASH PIT WORKER Active HALOPERIDOL 0.5 MG TABS one tablet three times a day HALOPERIDOL 16483445966 No Longer Active Maleh Ziglari ASH PIT WORKER Active TRAZODONE HCL 50 MG TAB three tablets at bed time TRAZODONE HCL 00302810745 No Longer Active [facility] Ziglari ASH PIT WORKER Active REVLIMID 25 MG CAPS one capsule daily for 21 days then off for 7 days 2014 LENALIDOMIDE 18162896592 No Longer Active [facility] Ziglari ASH PIT WORKER Active ZITHROMAX Z-EDDIE 250 MG TABS 2 today, then 1 daily for 4 days 2014 AZITHROMYCIN 28899083803 No Longer Active Augustina Amritgunnar DENTURE MODEL MAKER Active NOVOLIN R RELION 100 UNIT/ML INJ SOLN 30- 40 units each meal sliding scale INSULIN REGULAR HUMAN 16024645663 No Longer Active Maleh Ziglari ASH PIT WORKER Active LISINOPRIL 5 MG TABS 1 daily LISINOPRIL 78799556894 Active Prosper Arenas MD Active CALCIUM 500/D 500-200 MG-UNIT TABS one tablet daily CALCIUM CARBONATE- VITAMIN D 79736355089 Active Prosper Arenas MD Active HYDROCHLOROTHIAZIDE 25 MG TABS 1 tablet by mouth daily HYDROCHLOROTHIAZIDE 01035208261 Active Prosper Arenas MD Active HYDROCODONE-ACETAMINOPHEN 5-500 MG TABS 1-2 FOUR TIMES A DAY, PRN HYDROCODONE-ACETAMINOPHEN 78069735521 No Longer Active Prosper Arenas MD Active SIMVASTATIN 80 MG TABS 1/2 tablet daily SIMVASTATIN 55503743558 Active Prosper Arenas MD Active METOPROLOL TARTRATE 25 MG TABS 1/2 tablet twice a day METOPROLOL TARTRATE 38694968161 Active Prosper Arenas MD Active ASPIRIN 81 MG TAB 1 tablet by mouth daily ASPIRIN 99619937779 Active Prosper Arenas MD Active OMEPRAZOLE 20 MG CPDR 1 qd OMEPRAZOLE 01998098097 Active DARCIE Miller Active DOXYCYCLINE HYCLATE 100 MG CAPS take one capsule by mouth twice daily for ten days DOXYCYCLINE HYCLATE 31702180810 No Longer Active Mekhi Dukes MD Active DOXYCYCLINE HYCLATE 100 MG CAPS take one capsule by mouth twice daily for ten days DOXYCYCLINE HYCLATE 100 MG CAPS 1998560 DOXYCYCLINE HYCLATE Inactive HYDROCODONE-ACETAMINOPHEN 5-500 MG TABS [...] days 2014 ZITHROMAX Z-EDDIE 250 MG TABS 5936112 AZITHROMYCIN Inactive REVLIMID 25 MG CAPS one capsule daily for 21 days then off for 7 days 2014 REVLIMID 25 MG CAPS LENALIDOMIDE Inactive TRAZODONE HCL 50 MG TAB three tablets at bed time TRAZODONE HCL 50 MG TAB 038885 TRAZODONE HCL Inactive HALOPERIDOL 0.5 MG TABS one tablet three times a day HALOPERIDOL 0.5 MG TABS 504518 HALOPERIDOL Inactive BENZONATATE 200 MG CAPS 1 tab, 2-3 times a day BENZONATATE 200 MG CAPS 991895 BENZONATATE Inactive MECLIZINE HCL 25 MG TABS 1 daily needed for dizziness MECLIZINE HCL 25 MG TABS 228157 MECLIZINE HCL Inactive Immunizations Vaccine Administration Date [...] mg/dL Encounters Code Encounter Date Provider Facility CPT-37346 Level 3 Est. Patient 11:18:32 CDT [facility] CPT-17271 Level 4 Est. Patient 11:05:10 CDT [facility] CPT-20314 Level 3 Est. Patient 11:08:27 HOUSEKEEPER SUPERVISOR [facility] CPT-89694 Level 4 Est. Patient 10:43:59 CDT Prosper Arenas MD [facility] CPT-14690 Level 3 Est. Patient 10:51:19 CDT [facility] CPT-87616 Level 3 Est. Patient 10:20:31 CDT [facility] CPT-92239 Level 3 Est. Patient 17:08:45 CDT [facility] CPT-13307 Level 2 Est. Patient 13:54:36 CDT Augustina Mata APRN [facility] CPT-91246 Level 3 Est. Patient 12:00:42 CDT Prosper Arenas MD [facility] CPT-02866 Level 3 Est. Patient 09:57:28 HOUSEKEEPER SUPERVISOR [facility] CPT-12676 Level 3 Est. Patient 11:41:19 HOUSEKEEPER SUPERVISOR [facility] CPT-12100 Level 4 Est. Patient 17:07:35 HOUSEKEEPER SUPERVISOR [facility] CPT-69986 Level 5 Est. Patient 14:33:32 [facility] CPT-82959 Level 3 Est. Patient 12:25:35 CDT Prosper Arenas MD [facility] Procedures Code Procedure Name Date Entry Date Standard Description CPT-25435 HGBA1C - LAB USE ONLY 09:42:47 HOUSEKEEPER SUPERVISOR CPT-37066 TPSA - LAB USE ONLY 09:42:46 HOUSEKEEPER SUPERVISOR CPT-71843 Venipuncture Draw Fee 09:42:46 HOUSEKEEPER SUPERVISOR CPT-66307 Port a cath flush 13:33:18 HOUSEKEEPER SUPERVISOR CPT-65883 First Vx - Ix admin for Medicare patients 10:42:57 HOUSEKEEPER SUPERVISOR CPT-33096 Fluzone Preservative Free Intramuscular Suspension 10:42 :57 HOUSEKEEPER SUPERVISOR CPT-G0438 Initial Annual Wellness Exam 10:13:55 HOUSEKEEPER SUPERVISOR CPT-000 Give Appropriate Flu Vaccine 10:44:04 CDT CPT-000 Give Pneumovax 10:44:03 CDT CPT-61353 Port a cath flush 17:04:43 CDT CPT-92584 Prevnar 13 11:19:17 CDT CPT-87377 Fluzone Quadrivalent preservative free (>=3yrs.) 11:19: 17 CDT CPT-26365 Immunization Each Additional Inj 11:19:17 CDT CPT-69336 Immunization Single Admin 11:19:17 CDT CPT-39239 Port a cath flush 13:28:22 CDT CPT-TCMM Transitional Care Mgmt-Moderate 13:40:15 CDT CPT-G0008 Administration of Influenza Virus Vaccine 13:59:20 CDT CPT-29934 Fluzone High-Dose Intramuscular Suspension 13:59:20 CDT CPT-13840 Venipuncture Draw Fee 09:56:19 CDT CPT-OV Office Visit 15:46:10 CDT
--- OUTSIDE RECORDS SUMMARY | 2017-08-25 22:08 | XMS REPORT | Clinical Summary ---
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 mellitus 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, type [...] type II, uncontrolled 250.02 Active Maliheh Rodrigoglari TOUR DRIVER Diabetes mellitus without mention of complication, type [...] with hyperglycemia 250.00 Active 03/21 Maliheh Ziglari TOUR DRIVER Diabetes mellitus without mention of complication, type II or unspecified type, not stated as uncontrolled senior care use of insulin treatment V58.67 Active Luxiheh Rodrigoglari TOUR DRIVER Long-term (current) use of insulin Diabetes mellitus, type II with hypoglycemia 250.80 Active 07/22 Maliheh Ziglari TOUR DRIVER Diabetes mellitus with other specified manifestations, type II or unspecified type, not stated as uncontrolled 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 Maliheh Ziglari TOUR DRIVER Diabetes mellitus with renal manifestations, type II or unspecified type, not stated as uncontrolled Wellness exam V70.0 Active Dee Palmer APRN Routine general medical examination at a health care facility Fitting and adjustment of vascular catheter V58.81 Active 02/06 Dee Palemr APRN Encounter for fitting and adjustment of vascular catheter Unawareness of hypoglycemia in diabetes mellitus, type II 250.80 Active Maliheh Ziglari TOUR DRIVER Diabetes mellitus with other specified manifestations, type [...] MG ORAL CAPS 1 tab BID GABAPENTIN 23479144832 Active Tami Miller RN Active PREDNISONE 20 MG TABS Take 2 daily for 3 days and then 1 daily for 3 days PREDNISONE 92925436061 No Longer Active Moy PARISH Active BENZONATATE 200 MG CAPS Take 1 tablet 3 times a day as needed for cough 07/29 BENZONATATE 10633809159 No Longer Active Prosper Arenas MD Active HYDROCHLOROTHIAZIDE 25 MG TABS 1 tablet by mouth daily HYDROCHLOROTHIAZIDE 77510346286 No Longer Active Prosper Arenas MD Active ACCU-CHEK JOANNA PLUS STRP check blood sugars 5x a day, before each meal and bedtime and 15 minutes after treating a low blood. sugar GLUCOSE BLOOD 63109128335 Active Maliheh Ziglari TOUR DRIVER Active NOVOLOG FLEXPEN 100 UNIT/ML SOPN Take 25 units with each meal, add 1u/50 for blood sugars above 150. INSULIN ASPART 67941386597 Active Maliheh Ziglari TOUR DRIVER Active LANTUS SOLOSTAR 100 UNIT/ML SOLN Take 40 units at 7-8pm daily INSULIN GLARGINE 14413853272 Active Maliheh Ziglari TOUR DRIVER Active MECLIZINE HCL 25 MG TABS 1 daily needed for dizziness MECLIZINE HCL 72271623869 No Longer Active Maliheh Ziglari TOUR DRIVER Active BENZONATATE 200 MG CAPS 1 tab, 2-3 times a day BENZONATATE 62719070485 No Longer Active Maliheh Ziglari TOUR DRIVER Active HALOPERIDOL 0.5 MG TABS one tablet three times a day HALOPERIDOL 46879210425 No Longer Active Maliheh Ziglari TOUR DRIVER Active TRAZODONE HCL 50 MG TAB three tablets at bed time TRAZODONE HCL 15374370883 No Longer Active Maliheh Ziglari TOUR DRIVER Active REVLIMID 25 MG CAPS one capsule daily for 21 days then off for 7 days 2014 LENALIDOMIDE 10784721797 No Longer Active Maliheh Ziglari TOUR DRIVER Active ZITHROMAX Z-EDDIE 250 MG TABS 2 today, then 1 daily for 4 days 2014 AZITHROMYCIN 13368287203 No Longer Active Augustina Yotalaum SUPPLY SERVICE WORKER Active NOVOLIN R RELION 100 UNIT/ML INJ SOLN 30- 40 units each meal sliding scale INSULIN REGULAR HUMAN 40066983936 No Longer Active Moy PARISH Active LISINOPRIL 5 MG TABS 1 daily LISINOPRIL 49992657313 Active Prosper Arenas MD Active CALCIUM 500/D 500-200 MG-UNIT TABS one tablet daily CALCIUM CARBONATE- VITAMIN D 58593446296 Active Prosper Arenas MD Active HYDROCODONE-ACETAMINOPHEN 5-500 MG TABS 1-2 FOUR TIMES A DAY, PRN HYDROCODONE-ACETAMINOPHEN 01591108350 No Longer Active Prosper Arenas MD Active SIMVASTATIN 80 MG TABS 1/2 tablet daily SIMVASTATIN 55289725065 Active Prosper Arenas MD Active METOPROLOL TARTRATE 25 MG TABS 1/2 tablet twice a day METOPROLOL TARTRATE 47787358240 Active Prosper Arenas MD Active ASPIRIN 81 MG TAB 1 tablet by mouth daily ASPIRIN 84851793229 Active Prosper Arenas MD Active OMEPRAZOLE 20 MG CPDR 1 qd OMEPRAZOLE 95851374738 Active DARCIE Miller Active DOXYCYCLINE HYCLATE 100 MG CAPS take one capsule by mouth twice daily for ten days DOXYCYCLINE HYCLATE 64792343906 No Longer Active Mekhi Dukes MD Active DOXYCYCLINE HYCLATE 100 MG CAPS take one capsule by mouth twice daily for ten days DOXYCYCLINE HYCLATE 100 MG CAPS 1068336 DOXYCYCLINE HYCLATE Inactive HALOPERIDOL 0.5 MG TABS one tablet three times a day HALOPERIDOL 0.5 MG TABS 120452 HALOPERIDOL Inactive HYDROCHLOROTHIAZIDE 25 MG TABS 1 tablet by mouth daily HYDROCHLOROTHIAZIDE 25 MG TABS 756284 HYDROCHLOROTHIAZIDE Inactive PREDNISONE 20 MG TABS Take 2 daily for 3 days and then 1 daily for 3 days PREDNISONE 20 MG TABS 412719 PREDNISONE Inactive TRAZODONE HCL 50 MG TAB three tablets at bed time TRAZODONE HCL 50 MG TAB 129428 TRAZODONE HCL Inactive MECLIZINE HCL 25 MG TABS 1 daily needed for dizziness MECLIZINE HCL 25 MG TABS 215976 MECLIZINE HCL Inactive HYDROCODONE-ACETAMINOPHEN 5-500 MG TABS 1-2 FOUR TIMES A DAY, PRN HYDROCODONE-ACETAMINOPHEN 5-500 MG TABS HYDROCODONE- ACETAMINOPHEN Inactive BENZONATATE 200 MG CAPS 1 tab, 2-3 times a day BENZONATATE 200 MG CAPS 532342 BENZONATATE Inactive BENZONATATE 200 MG CAPS Take 1 tablet 3 times a day as needed for cough 07/29 BENZONATATE 200 MG CAPS 945885 BENZONATATE Inactive ZITHROMAX Z-EDDIE 250 MG TABS 2 today, then 1 daily for 4 days 2014 ZITHROMAX Z-EDDIE 250 MG TABS 0107384 AZITHROMYCIN Inactive REVLIMID 25 MG CAPS one [...] W/DIFF - Chemistry sodium, serum 137 mmol/L 773-922 3641/08/16 carbon dioxide, venous blood 26.3 mmol/L 21.0-32.0 [...] LAB - Chemistry cholesterol, serum 156 mg/dL 385-737 5889/02/20 HDL cholesterol, serum 52 mg/dL > OR=40 [...] mg/dL Encounters Code Encounter Date Provider Facility CPT-68313 Level 3 Est. Patient 10:00:14 CDT Mekhi Dukes MD [facility] CPT-87579 Level 3 Est. Patient 12:24:09 CDT Moy PARISH [facility] CPT-01287 Level 3 Est. Patient 14:34:57 CDT Prosper Arenas MD [facility] CPT-55251 Level 3 New Patient 15:44:53 DIAMOND BROKER Mekhi Dukes MD [facility] CPT-74558 Level 3 Est. Patient 14:53:34 DIAMOND BROKER Prosper Arenas MD -71339 Level 4 Est. Patient 10:05:41 DIAMOND BROKER Moy Rodrigokymrex [facility]-77621 Level 3 Est. Patient 11:18:32 CDT Moy Bradshawari [facility] CPT-48448 Level 4 Est. Patient 11:05:10 CDT Moy Bradshawari [facility] CPT-74526 Level 3 Est. Patient 11:08:27 DIAMOND BROKER Luxcarissashoaib Jose [facility] CPT-07271 Level 4 Est. Patient 10:43:59 CDT Prosper Arenas MD [facility]-66553 Level 3 Est. Patient 10:51:19 CDT Moy Garcia [facility] CPT-13693 Level 3 Est. Patient 10:20:31 CDT Moy Bradshawari [facility] CPT-76473 Level 3 Est. Patient 17:08:45 CDT Moy Wallacesania [facility] CPT-68358 Level 2 Est. Patient 13:54:36 CDT Augustina Mata APRN [facility] CPT-03768 Level 3 Est. Patient 12:00:42 CDT Prosper Arenas MD [facility] CPT-35327 Level 3 Est. Patient 09:57:28 DIAMOND BROKER Luxcarissashoaib Jose [facility]-65655 Level 3 Est. Patient 11:41:19 DIAMOND BROKER Luxcarissashoaib Jose [facility] CPT-45440 Level 4 Est. Patient 17:07:35 DIAMOND BROKER Malihshoaib Garcia [facility] CPT-62144 Level 5 Est. Patient 14:33:32 CDT Moy Garcia [facility] CPT-88715 Level 3 Est. Patient 12:25:35 CDT Prosper Arenas MD [facility] Procedures Code Procedure Name Date Entry Date Standard Description CPT-000 Give Appropriate Flu Vaccine 10:13:55 DIAMOND BROKER CPT-000 Give Immunizations Due 10:13:55 DIAMOND BROKER CPT-47252 HGBA1C - LAB USE ONLY 09:42:47 DIAMOND BROKER CPT-89966 TPSA - LAB USE ONLY 09:42:46 DIAMOND BROKER CPT-35494 Venipuncture Draw Fee 09:42:46 DIAMOND BROKER CPT-18653 Port a cath flush 13:33:18 DIAMOND BROKER CPT-71002 First Vx - Ix admin for Medicare patients 10:42:57 DIAMOND BROKER CPT-91215 Fluzone Preservative Free Intramuscular Suspension 10:42 :57 DIAMOND BROKER CPT-G0438 Initial Annual Wellness Exam 10:13:55 DIAMOND BROKER CPT-000 Give Appropriate Flu Vaccine 10:44:04 CDT CPT-000 Give Pneumovax 10:44:03 CDT CPT-73496 Port a cath flush 17:04:43 CDT CPT-47333 Prevnar 13 11:19:17 CDT CPT-64073 Fluzone Quadrivalent preservative free (>=3yrs.) 11:19: 17 CDT CPT-85421 Immunization Each Additional Inj 11:19:17 CDT CPT-32783 Immunization Single Admin 11:19:17 CDT CPT-67405 Port a cath flush 13:28:22 CDT CPT-TCMM Transitional Care Mgmt-Moderate 13:40:15 CDT CPT-G0008 Administration of Influenza Virus Vaccine 13:59:20 CDT CPT-82963 Fluzone High-Dose Intramuscular Suspension 13:59:20 CDT CPT-61748 Venipuncture Draw Fee 09:56:19 CDT CPT-OV Office Visit 15:46:10 CDT
--- OUTSIDE RECORDS SUMMARY | 2017-08-25 22:08 | XMS REPORT ---
Author Author SKIP SAUCEDO Organization [facility] Address [address] [place] [address] Care Team Providers Care Supervisor Doping Name Role Phone SKIP SAUCEDO Unavailable PROBLEMS Unknown Problems ALLERGIES No Known Allergies SOCIAL HISTORY Never Assessed PLAN OF CARE Activity Details Follow Up extraction Reason: VITAL SIGNS Blood pressure systolic 131 mmHg 2016-06-11 Blood pressure diastolic 88 mmHg 2016-06-11 MEDICATIONS Medication Instructions Dosage Frequency Start Date End Date Duration Status Simvastatin 80 MG Orally Once a day 1 tablet in the evening 24h Active Metoprolol Tartrate 25 MG Orally Twice a day 1 tablet with food 12h Active Lantus 100 UNIT/ML Active Calcium 1 tab Active Hydrochlorothiazide 25 MG Orally Three times a Week 1 tablet in the morning Active Omeprazole 20 MG Orally Once a day 1 capsule 24h Active Aspirin 81 MG Orally Once a day 1 tablet 24h Active NovoLog Flexpen 100 UNIT/ML Active RESULTS No Results PROCEDURES Procedure Date Ordered Result Body Site COMP ORAL EVALUATION - NEW/EST PT June 11, 2016 BITEWINGS - FOUR FILMS June 11, 2016 Billing Notes on claim June 11, 2016 PANORAMIC FILM SEE ALSO CODE [id number] June 11, 2016 IMMUNIZATIONS No Known Immunizations MEDICAL (GENERAL) HISTORY Type Description Date Medical History high blood pressure Medical History heart attack (2006) Medical History multiple myloma (cancer) Medical History diabetes- type II Medical History rheumatic fever Medical History heart disease Medical History broken left let- chapo placed Surgical History left leg broken- metal chapo placed 1992 Hospitalization History Heart attack 2006 Hospitalization History cancer - multiple myloma 2002 Hospitalization History broken let- chapo placed 1992
--- OUTSIDE RECORDS SUMMARY | 2017-08-25 22:09 | XMS REPORT | Clinical Summary ---
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, 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 [...] type II, uncontrolled 250.02 Active Maliheh Rodrigoglari STAFF AUDITOR Diabetes mellitus without mention of complication, type [...] with hyperglycemia 250.00 Active 03/21 Maliheh Ziglari STAFF AUDITOR Diabetes mellitus without mention of complication, type II or unspecified type, not stated as uncontrolled [facility] use of insulin treatment V58.67 Active Luxiheh Rodrigoglari STAFF AUDITOR Long-term (current) use of insulin Diabetes mellitus, type II with hypoglycemia 250.80 Active 07/22 Maliheh Ziglari STAFF AUDITOR Diabetes mellitus with other specified manifestations, type II or unspecified type, not stated as uncontrolled 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 Maliheh Ziglari STAFF AUDITOR Diabetes mellitus with renal manifestations, type II or unspecified type, not stated as uncontrolled Wellness exam V70.0 Active Dee Palmer APRN Routine general medical examination at a health care facility Fitting and adjustment of vascular catheter V58.81 Active 02/06 Dee Palmer APRN Encounter for fitting and adjustment of vascular catheter Unawareness of hypoglycemia in diabetes mellitus, type II 250.80 Active Maliheh Ziglari STAFF AUDITOR Diabetes mellitus with other specified manifestations, type [...] MG ORAL TABLET 1/2 tablet daily SIMVASTATIN 66279743619 No Longer Active Mekhi Dukes MD Active OMEPRAZOLE 20 MG ORAL CAPSULE DELAYED RELEASE 1 qd OMEPRAZOLE 99433116131 No Longer Active Mekhi Dukes MD Active METOPROLOL TARTRATE 25 MG ORAL TABLET 1/2 tablet twice a day METOPROLOL TARTRATE 78211227182 No Longer Active Mekhi Dukes MD Active LISINOPRIL 5 MG ORAL TABLET 1 daily LISINOPRIL 75799489198 No Longer Active Mekhi Dukes MD Active NOVOLOG FLEXPEN 100 UNIT/ML SUBCUTANEOUS SOLUTION PEN-INJECTOR Take 8 units with each meal, add 1u/50 for blood sugars above 150. INSULIN ASPART 81927886232 Active Moy PARISH Active GABAPENTIN 300 MG ORAL CAPSULE 1 tab BID GABAPENTIN 27350530633 Active Tami Miller RN Active PREDNISONE 20 MG ORAL TABLET Take 2 daily for 3 days and then 1 daily for 3 days PREDNISONE 21499612275 No Longer Active Moy PARISH Active BENZONATATE 200 MG ORAL CAPSULE Take 1 tablet 3 times a day as needed for cough BENZONATATE 53020747976 No Longer Active Prosper Arenas MD Active HYDROCHLOROTHIAZIDE 25 MG ORAL TABLET 1 tablet by mouth daily HYDROCHLOROTHIAZIDE 38818238736 No Longer Active Prosper Arenas MD Active ACCU-CHEK JOANNA PLUS IN VITRO STRIP check blood sugars 5x a day, before each meal and bedtime and 15 minutes after treating a low blood. sugar GLUCOSE BLOOD 88796191567 Active Malpapo Wallaceglrex PARISH Active LANTUS SOLOSTAR 100 UNIT/ML SUBCUTANEOUS SOLUTION PEN-INJECTOR Take 40 units at 7-8pm daily INSULIN GLARGINE 72975532430 Active Moy Ziglari STAFF AUDITOR Active MECLIZINE HCL 25 MG ORAL TABLET 1 daily needed for dizziness 2015 MECLIZINE HCL 16382213212 No Longer Active Maleh Ziglari STAFF AUDITOR Active BENZONATATE 200 MG ORAL CAPSULE 1 tab, 2-3 times a day BENZONATATE 08987920494 No Longer [facility] STAFF AUDIT[facility] Active HALOPERIDOL 0.5 MG ORAL TABLET one tablet three times a day HALOPERIDOL 79864039404 No Longer [facility] Ziglari STAFF AUDITOR Active TRAZODONE HCL 50 MG ORAL TABLET three tablets at bed time TRAZODONE HCL 08234181023 No Longer [facility] Ziglari STAFF AUDITOR Active REVLIMID 25 MG ORAL CAPSULE one capsule daily for 21 days then off for 7 days LENALIDOMIDE 69175111245 No Longer [facility] Ziglari STAFF AUDITOR Active ZITHROMAX Z-EDDIE 250 MG ORAL TABLET 2 today, then 1 daily for 4 days AZITHROMYCIN 02000344931 No Longer Active Augustina Adolfo DOHERTY Active NOVOLIN R RELION 100 UNIT/ML INJECTION SOLUTION 30- 40 units each meal sliding scale INSULIN REGULAR HUMAN 67457073669 No Longer Active Moy Rodrigoglari STAFF AUDITOR Active CALCIUM 500/D 500-200 MG-UNIT ORAL TABLET one tablet daily CALCIUM CARBONATE-VITAMIN D 58111160081 Active Prosper Arenas MD Active HYDROCODONE-ACETAMINOPHEN 5-500 MG ORAL TABLET 1-2 FOUR TIMES A DAY, PRN 2010 HYDROCODONE-ACETAMINOPHEN 60969277136 No Longer Active Prosper Arenas MD Active ASPIRIN 81 MG ORAL TABLET 1 tablet by mouth daily ASPIRIN 58256951948 Active Prosper Arenas MD Active DOXYCYCLINE HYCLATE 100 MG ORAL CAPSULE take one capsule by mouth twice daily for ten days DOXYCYCLINE HYCLATE 73414670217 No Longer Active Mekhi Dukes MD Active DOXYCYCLINE HYCLATE 100 MG ORAL CAPSULE take one capsule by mouth twice daily for ten days DOXYCYCLINE HYCLATE 100 MG ORAL CAPSULE 5618244 DOXYCYCLINE HYCLATE Inactive HYDROCODONE-ACETAMINOPHEN 5-500 MG ORAL TABLET 1-2 FOUR TIMES A DAY, PRN 2010 HYDROCODONE-ACETAMINOPHEN 5-500 MG ORAL TABLET 330014 HYDROCODONE-ACETAMINOPHEN Inactive NOVOLIN R RELION 100 UNIT/ML INJECTION SOLUTION 30- 40 units each meal sliding scale NOVOLIN R RELION 100 UNIT/ML INJECTION SOLUTION INSULIN REGULAR HUMAN Inactive ZITHROMAX Z-EDDIE 250 MG ORAL TABLET 2 today, then 1 daily for 4 days ZITHROMAX Z-EDDIE 250 MG ORAL TABLET 856341 AZITHROMYCIN Inactive REVLIMID 25 MG ORAL CAPSULE one capsule daily for 21 days then off for 7 days REVLIMID 25 MG ORAL CAPSULE LENALIDOMIDE Inactive TRAZODONE HCL 50 MG ORAL TABLET three tablets at bed time TRAZODONE HCL 50 MG ORAL TABLET 757949 TRAZODONE HCL Inactive HALOPERIDOL 0.5 MG ORAL TABLET one tablet three times a day HALOPERIDOL 0.5 MG ORAL TABLET 557181 HALOPERIDOL Inactive BENZONATATE 200 MG ORAL CAPSULE 1 tab, 2-3 times a day BENZONATATE 200 MG ORAL CAPSULE 746229 BENZONATATE Inactive MECLIZINE HCL 25 MG ORAL TABLET 1 daily needed for dizziness 2015 MECLIZINE HCL 25 MG ORAL TABLET 314712 MECLIZINE HCL Inactive HYDROCHLOROTHIAZIDE 25 MG ORAL TABLET 1 tablet by mouth daily HYDROCHLOROTHIAZIDE 25 MG ORAL TABLET 602516 HYDROCHLOROTHIAZIDE Inactive PREDNISONE 20 MG ORAL TABLET Take 2 daily for 3 days and then 1 daily for 3 days PREDNISONE 20 MG ORAL TABLET 375521 PREDNISONE Inactive LISINOPRIL 5 MG ORAL TABLET 1 daily LISINOPRIL 5 MG ORAL TABLET 697987 LISINOPRIL Inactive METOPROLOL TARTRATE 25 MG ORAL TABLET 1/2 tablet twice a day METOPROLOL TARTRATE 25 MG ORAL TABLET 088362 METOPROLOL TARTRATE Inactive OMEPRAZOLE 20 MG ORAL CAPSULE DELAYED RELEASE 1 qd OMEPRAZOLE 20 MG ORAL CAPSULE DELAYED RELEASE 600821 OMEPRAZOLE Inactive SIMVASTATIN 80 MG ORAL TABLET 1/2 tablet daily SIMVASTATIN 80 MG ORAL TABLET 843474 SIMVASTATIN Inactive BENZONATATE 200 MG ORAL CAPSULE Take 1 tablet 3 times a day as needed for cough BENZONATATE 200 MG ORAL CAPSULE 740013 BENZONATATE Inactive Immunizations Vaccine Administration Date Value [...] W/DIFF - Chemistry sodium, serum 137 mmol/L 935-072 4547/08/16 carbon dioxide, venous blood 26.3 mmol/L 21.0-32.0 [...] LABS - Chemistry cholesterol, serum 115 mg/dL 576-100 2568/08/18 triglyceride, serum, fasting 89 mg/dL 30-200 HDL cholesterol, serum 46 mg/dL 32-60 LDL cholesterol, serum 51 mg/dL 0-130 blood glucose 104 mg/dL 65-110 Lab Report: LIPID PANEL- REPOWER LAB - Chemistry cholesterol, serum 156 mg/dL 579-650 3846/02/20 HDL cholesterol, serum 52 mg/dL > OR=40 [...] mg/dL Encounters Code Encounter Date Provider Facility CPT-91919 Level 3 Est. Patient 17:11:55 LENS GRINDING MACHINE OPERATOR Ismael Gracia MD [facility] CPT-70307 Level 4 Est. Patient 16:29:19 CDT Mekhi Dukes MD [facility] CPT-98235 Level 3 New Patient 17:05:24 CDT Ismael Gracia MD [facility] CPT-04060 Level 2 Est. Patient 15:43:17 CDT Mekhi Dukes MD [facility] CPT-93972 Level 3 Est. Patient 09:30:37 CDT Maliheh Ziglari [facility] [place]-21348 Level 3 Est. Patient 10:00:14 CDT Mekhi Dukes MD [facility] CPT-38774 Level 3 Est. Patient 12:24:09 CDT Moy Garcia [facility]-72047 Level 3 Est. Patient 14:34:57 CDT Prosper Arenas MD [facility] CPT-79829 Level 3 New Patient 15:44:53 LENS GRINDING MACHINE OPERATOR Mekhi Dukes MD [facility]-74429 Level 3 Est. Patient 14:53:34 LENS GRINDING MACHINE OPERATOR Prosper Arenas MD [facility] CPT-93766 Level 4 Est. Patient 10:05:41 LENS GRINDING MACHINE OPERATOR Moy Rodrigokymrex [facility]-47220 Level 3 Est. [facility]:18[facility]63780 Level 4 Est. Patient 11:05:10 CDT Moy Garcia [facility] CPT-13423 Level 3 Est. Patient 11:08:27 LENS GRINDING MACHINE OPERATOR Moy Garcia [facility] CPT-20156 Level 4 Est. Patient 10:43:59 CDT Prosper Arenas MD [facility] CPT-39073 Level 3 Est. Patient 10:51:19 CDT Moy Garcia [facility] CPT-25432 Level 3 Est. Patient 10:20:31 CDT Moy Garcia [facility] CPT-65792 Level 3 Est. Patient 17:08:45 CDT Moy Garcia [facility] CPT-73778 Level 2 Est. Patient 13:54:36 CDT Augustina Mata APRN [facility] CPT-82171 Level 3 Est. Patient 12:00:42 CDT Prosper Arenas MD [facility] CPT-61579 Level 3 Est. Patient 09:57:28 LENS GRINDING MACHINE OPERATOR Moy Garcia [facility] CPT-72148 Level 3 Est. Patient 11:41:19 LENS GRINDING MACHINE OPERATOR Moy Garcia [facility] CPT-69067 Level 4 Est. Patient 17:07:35 LENS GRINDING MACHINE OPERATOR Moy Garcia [facility] CPT-50155 Level 5 Est. Patient 14:33:32 CDT Moy Wallacerex [facility] CPT-07093 Level 3 Est. Patient 12:25:35 CDT Prosper Arenas MD [facility] Procedures Code Procedure Name Date Entry Date Standard Description CPT-G0439 Subsequent Annual Wellness Exam 08:39:41 LENS GRINDING MACHINE OPERATOR CPT-000 Give Appropriate Flu Vaccine 10:13:55 LENS GRINDING MACHINE OPERATOR CPT-000 Give Immunizations Due 10:13:55 LENS GRINDING MACHINE OPERATOR CPT-60192 HGBA1C - LAB USE ONLY 09:42:47 LENS GRINDING MACHINE OPERATOR CPT-88337 TPSA - LAB USE ONLY 09:42:46 LENS GRINDING MACHINE OPERATOR CPT-60079 Venipuncture Draw Fee 09:42:46 LENS GRINDING MACHINE OPERATOR CPT-19395 Port a cath flush 13:33:18 LENS GRINDING MACHINE OPERATOR CPT-54101 First Vx - Ix admin for Medicare patients 10:42:57 LENS GRINDING MACHINE OPERATOR CPT-92816 Fluzone Preservative Free Intramuscular Suspension 10:42 :57 LENS GRINDING MACHINE OPERATOR CPT-G0438 Initial Annual Wellness Exam 10:13:55 LENS GRINDING MACHINE OPERATOR CPT-000 Give Appropriate Flu Vaccine 10:44:04 CDT CPT-000 Give Pneumovax 10:44:03 CDT CPT-94344 Port a cath flush 17:04:43 CDT CPT-93854 Prevnar 13 11:19:17 CDT CPT-02382 Fluzone Quadrivalent preservative free (>=3yrs.) 11:19: 17 CDT CPT-55922 Immunization Each Additional Inj 11:19:17 CDT CPT-46865 Immunization Single Admin 11:19:17 CDT CPT-48495 Port a cath flush 13:28:22 CDT CPT-TCMM Transitional Care Mgmt-Moderate 13:40:15 CDT CPT-G0008 Administration of Influenza Virus Vaccine 13:59:20 CDT CPT-92894 Fluzone High-Dose Intramuscular Suspension 13:59:20 CDT CPT-90374 Venipuncture Draw Fee 09:56:19 CDT CPT-OV Office Visit 15:46:10 CDT
--- OUTSIDE RECORDS SUMMARY | 2017-08-25 22:10 | XMS REPORT | Clinical Summary ---
Author Author Admin, IWONA Organization [facility] Address Unknown Phone Unavailable Allergies, Adverse Reactions, Alerts Allergy Name Reaction Description Start Date Severity Status Provider ERYTHROMYCIN Stomach cramps Moderate Active Prosper Arenas MD CODEINE Critical Active Maliheh Ziglari PREMIUM CARD CANCELLATION CLERK DARVOCET Critical Active Maliheh Ziglari PREMIUM CARD CANCELLATION CLERK LEVAQUIN Critical Active Maliheh Ziglari PREMIUM CARD CANCELLATION CLERK Conditions or Problems Problem Name Problem [...] type II, uncontrolled 250.02 Active Maliheh Ziglari PREMIUM CARD CANCELLATION CLERK Diabetes mellitus without mention of complication, [...] with hyperglycemia 250.00 Active 03/21 Maliheh Ziglari PREMIUM CARD CANCELLATION CLERK Diabetes mellitus without mention of complication, type II or unspecified type, not stated as uncontrolled [facility] use of insulin treatment V58.67 Active Maliheh Ziglari PREMIUM CARD CANCELLATION CLERK Long-term (current) use of insulin Diabetes mellitus, type II with hypoglycemia 250.80 Active 07/22 Maliheh Ziglari PREMIUM CARD CANCELLATION CLERK Diabetes mellitus with other specified manifestations, type II or unspecified type, not stated as uncontrolled 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 Maliheh Ziglari PREMIUM CARD CANCELLATION CLERK Diabetes mellitus with renal manifestations, type II or unspecified type, not stated as uncontrolled Wellness exam V70.0 Active Dee Palmer APRN Routine general medical examination at a health care facility Fitting and adjustment of vascular catheter V58.81 Active 02/06 Dee Palmer APRN Encounter for fitting and adjustment of vascular catheter Unawareness of hypoglycemia in diabetes mellitus, type II 250.80 Active Maliheh Ziglari PREMIUM CARD CANCELLATION CLERK Diabetes mellitus with other specified manifestations, [...] then 1 daily for 3 days PREDNISONE 77574910692 No Longer Active Moy PARISH Active BENZONATATE 200 MG CAPS Take 1 tablet 3 times a day as needed for cough 07/29 BENZONATATE 93971781665 No Longer Active Prosper Arenas MD Active HYDROCHLOROTHIAZIDE 25 MG TABS 1 tablet by mouth daily HYDROCHLOROTHIAZIDE 03738765086 No Longer Active Prosper Arenas MD Active ACCU-CHEK JOANNA PLUS STRP check blood sugars 5x a day, before each meal and bedtime and 15 minutes after treating a low blood. sugar GLUCOSE BLOOD 36012306000 Active Malpapo Wallaceglari PREMIUM CARD CANCELLATION CLERK Active NOVOLOG FLEXPEN 100 UNIT/ML SOPN Take 25 units with each meal, add 1u/50 for blood sugars above 150. INSULIN ASPART 86283227052 Active Malpapo Wallaceglari PREMIUM CARD CANCELLATION CLERK Active LANTUS SOLOSTAR 100 UNIT/ML SOLN Take 40 units at 7-8pm daily INSULIN GLARGINE 25418905180 Active [facility] Ziglari PREMIUM CARD CANCELLATION CLERK Active MECLIZINE HCL 25 MG TABS 1 daily needed for dizziness MECLIZINE HCL 72274728206 No Longer Active Maleh Ziglari PREMIUM CARD CANCELLATION CLERK Active BENZONATATE 200 MG CAPS 1 tab, 2-3 times a day BENZONATATE 49645386570 No Longer Active [facility] Ziglari PREMIUM CARD CANCELLATION CLERK Active HALOPERIDOL 0.5 MG TABS one tablet three times a day HALOPERIDOL 45430619302 No Longer Active [facility] Ziglari PREMIUM CARD CANCELLATION CLERK Active TRAZODONE HCL 50 MG TAB three tablets at bed time TRAZODONE HCL 41137401234 No Longer Active [facility] Ziglari PREMIUM CARD CANCELLATION CLERK Active REVLIMID 25 MG CAPS one capsule daily for 21 days then off for 7 days 2014 LENALIDOMIDE 15047491783 No Longer Active [facility] Ziglari PREMIUM CARD CANCELLATION CLERK Active ZITHROMAX Z-EDDIE 250 MG TABS 2 today, then 1 daily for 4 days 2014 AZITHROMYCIN 71523633377 No Longer Active Augustina Mata BESSY Active NOVOLIN R RELION 100 UNIT/ML INJ SOLN 30- 40 units each meal sliding scale INSULIN REGULAR HUMAN 10074470726 No Longer Active [facility] Rodrigoglari PREMIUM CARD CANCELLATION CLERK Active LISINOPRIL 5 MG TABS 1 daily LISINOPRIL 80382338550 Active Prosper Arenas MD Active CALCIUM 500/D 500-200 MG-UNIT TABS one tablet daily CALCIUM CARBONATE- VITAMIN D 39062789780 Active Prosper Arenas MD Active HYDROCODONE-ACETAMINOPHEN 5-500 MG TABS 1-2 FOUR TIMES A DAY, PRN HYDROCODONE-ACETAMINOPHEN 36767459205 No Longer Active Prosper Arenas MD Active SIMVASTATIN 80 MG TABS 1/2 tablet daily SIMVASTATIN 38798023224 Active Prosper Arenas MD Active METOPROLOL TARTRATE 25 MG TABS 1/2 tablet twice a day METOPROLOL TARTRATE 17268741037 Active Prosper Arenas MD Active ASPIRIN 81 MG TAB 1 tablet by mouth daily ASPIRIN 05307718882 Active Prosper Arenas MD Active OMEPRAZOLE 20 MG CPDR 1 qd OMEPRAZOLE 70215143463 Active DARCIE Miller Active DOXYCYCLINE HYCLATE 100 MG CAPS take one capsule by mouth twice daily for ten days DOXYCYCLINE HYCLATE 49751036413 No Longer Active Mekhi Dukes MD Active DOXYCYCLINE HYCLATE 100 MG CAPS take one capsule by mouth twice daily for ten days DOXYCYCLINE HYCLATE 100 MG CAPS 5917586 DOXYCYCLINE HYCLATE Inactive HYDROCODONE-ACETAMINOPHEN 5-500 MG TABS [...] days 2014 ZITHROMAX Z-EDDIE 250 MG TABS 8599765 AZITHROMYCIN Inactive REVLIMID 25 MG CAPS one capsule daily for 21 days then off for 7 days 2014 REVLIMID 25 MG CAPS LENALIDOMIDE Inactive TRAZODONE HCL 50 MG TAB three tablets at bed time TRAZODONE HCL 50 MG TAB 896373 TRAZODONE HCL Inactive HALOPERIDOL 0.5 MG TABS one tablet three times a day HALOPERIDOL 0.5 MG TABS 160041 HALOPERIDOL Inactive BENZONATATE 200 MG CAPS 1 tab, 2-3 times a day BENZONATATE 200 MG CAPS 700167 BENZONATATE Inactive MECLIZINE HCL 25 MG TABS 1 daily needed for dizziness MECLIZINE HCL 25 MG TABS 511077 MECLIZINE HCL Inactive HYDROCHLOROTHIAZIDE 25 MG TABS 1 tablet by mouth daily HYDROCHLOROTHIAZIDE 25 MG TABS 159244 HYDROCHLOROTHIAZIDE Inactive PREDNISONE 20 MG TABS Take 2 daily for 3 days and then 1 daily for 3 days PREDNISONE 20 MG TABS 944661 PREDNISONE Inactive BENZONATATE 200 MG CAPS Take 1 tablet 3 times a day as needed for cough 07/29 BENZONATATE 200 MG CAPS 003349 BENZONATATE Inactive Immunizations Vaccine Administration Date Value [...] LAB - Chemistry cholesterol, serum 156 mg/dL 198-509 6558/02/20 HDL cholesterol, serum 52 mg/dL > OR=40 [...] mg/dL Encounters Code Encounter Date Provider Facility CPT-28715 Level 3 Est. Patient 12:24:09 CDT Moy Garcia [facility] CPT-97176 Level 3 Est. Patient 14:34:57 CDT Prosper Arenas MD [facility] CPT-93282 Level 3 New Patient 15:44:53 BULB PLANTER Mekhi Dukes MD [facility] CPT-40564 Level 3 Est. Patient 14:53:34 BULB PLANTER Prosper Arenas MD [facility] CPT-57207 Level 4 Est. Patient 10:05:41 [facility] Est. Patient 11:18:32 CDT Moy Garcia [facility] CPT-11076 Level 4 Est. Patient 11:05:10 CDT Moy Garcia [facility] CPT-81070 Level 3 Est. Patient 11:08:27 BULB PLANTER Moy Garcia [facility] CPT-77736 Level 4 Est. Patient 10:43:59 CDT Prosper Arenas MD [facility] CPT-16416 Level 3 Est. Patient 10:51:19 CDT Moy Garcia [facility] CPT-14589 Level 3 Est. Patient 10:20:31 [facility] CPT-26937 Level 3 Est. Patient 17:08:45 [facility] Level 2 Est. Patient 13:54:36 CDT Augustina Mata APRN [facility] CPT-55731 Level 3 Est. Patient 12:00:42 CDT Prosper Arenas MD [facility] CPT-75792 Level 3 Est. Patient 09:57:28 BULB PLANTER Moy Garcia [facility] CPT-72789 Level 3 Est. Patient 11:41:19 BULB PLANTER Moy Garcia [facility] CPT-74730 Level 4 Est. Patient 17:07:35 BULB PLANTER Moy Garcia [facility] CPT-06368 Level 5 Est. Patient 14:33:32 [facility] CPT-04211 Level 3 Est. Patient 12:25:35 CDT Prosper Arenas MD [facility] Procedures Code Procedure Name Date Entry Date Standard Description CPT-000 Give Appropriate Flu Vaccine 10:13:55 BULB PLANTER CPT-000 Give Immunizations Due 10:13:55 BULB PLANTER CPT-43546 HGBA1C - LAB USE ONLY 09:42:47 BULB PLANTER CPT-52149 TPSA - LAB USE ONLY 09:42:46 BULB PLANTER CPT-31507 Venipuncture Draw Fee 09:42:46 BULB PLANTER CPT-52621 Port a cath flush 13:33:18 BULB PLANTER CPT-56024 First Vx - Ix admin for Medicare patients 10:42:57 BULB PLANTER CPT-73595 Fluzone Preservative Free Intramuscular Suspension 10:42 :57 BULB PLANTER CPT-G0438 Initial Annual Wellness Exam 10:13:55 BULB PLANTER CPT-000 Give Appropriate Flu Vaccine 10:44:04 CDT CPT-000 Give Pneumovax 10:44:03 CDT CPT-29078 Port a cath flush 17:04:43 CDT CPT-67385 Prevnar 13 11:19:17 CDT CPT-23169 Fluzone Quadrivalent preservative free (>=3yrs.) 11:19: 17 CDT CPT-40466 Immunization Each Additional Inj 11:19:17 CDT CPT-91129 Immunization Single Admin 11:19:17 CDT CPT-56849 Port a cath flush 13:28:22 CDT CPT-TCMM Transitional Care Mgmt-Moderate 13:40:15 CDT CPT-G0008 Administration of Influenza Virus Vaccine 13:59:20 CDT CPT-16554 Fluzone High-Dose Intramuscular Suspension 13:59:20 CDT CPT-74477 Venipuncture Draw Fee 09:56:19 CDT CPT-OV Office Visit 15:46:10 CDT
--- OUTSIDE RECORDS SUMMARY | 2017-08-25 22:11 | XMS REPORT | Clinical Summary ---
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 mellitus 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, type II [...] type II, uncontrolled 250.02 Active Maliheh Rodrigoglari MANAGER ACUTE Diabetes mellitus without mention of complication, type [...] with hyperglycemia 250.00 Active 03/21 Maliheh Ziglari MANAGER ACUTE Diabetes mellitus without mention of complication, type II or unspecified type, not stated as uncontrolled USP use of insulin treatment V58.67 Active Luxiheh Rodrigoglari MANAGER ACUTE Long-term (current) use of insulin Diabetes mellitus, type II with hypoglycemia 250.80 Active 07/22 Maliheh Ziglari MANAGER ACUTE Diabetes mellitus with other specified manifestations, type II or unspecified type, not stated as uncontrolled 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 Maliheh Ziglari MANAGER ACUTE Diabetes mellitus with renal manifestations, type II or unspecified type, not stated as uncontrolled Wellness exam V70.0 Active Dee Palmer APRN Routine general medical examination at a health care facility Fitting and adjustment of vascular catheter V58.81 Active 02/06 Dee Palmer APRN Encounter for fitting and adjustment of vascular catheter Unawareness of hypoglycemia in diabetes mellitus, type II 250.80 Active Maliheh Ziglari MANAGER ACUTE Diabetes mellitus with other specified manifestations, type [...] 80 MG TABS 1/2 tablet daily SIMVASTATIN 36220435008 No Longer Active Mekhi Dukes MD Active OMEPRAZOLE 20 MG CPDR 1 qd OMEPRAZOLE 97859108995 No Longer Active Mekhi Dukes MD Active METOPROLOL TARTRATE 25 MG TABS 1/2 tablet twice a day METOPROLOL TARTRATE 26851084687 No Longer Active Mekhi Dukes MD Active LISINOPRIL 5 MG TABS 1 daily LISINOPRIL 47356683216 No Longer Active Mekhi Dukes MD Active NOVOLOG FLEXPEN 100 UNIT/ML SOPN Take 8 units with each meal, add 1u/50 for blood sugars above 150. INSULIN ASPART 04783040424 Active Moy Wallaceglari MANAGER ACUTE Active GABAPENTIN 300 MG ORAL CAPS 1 tab BID GABAPENTIN 64343722112 Active Tami Miller RN Active PREDNISONE 20 MG TABS Take 2 daily for 3 days and then 1 daily for 3 days PREDNISONE 96068220007 No Longer Active Maliheh Ziglari MANAGER ACUTE Active BENZONATATE 200 MG CAPS Take 1 tablet 3 times a day as needed for cough 07/29 BENZONATATE 66022830028 No Longer Active Prosper Arenas MD Active HYDROCHLOROTHIAZIDE 25 MG TABS 1 tablet by mouth daily HYDROCHLOROTHIAZIDE 12192778591 No Longer Active Prosper Arenas MD Active ACCU-CHEK JOANNA PLUS STRP check blood sugars 5x a day, before each meal and bedtime and 15 minutes after treating a low blood. sugar GLUCOSE BLOOD 19867641205 Active Jose Antonioshoaib Rodrigoglari MANAGER ACUTE Active LANTUS SOLOSTAR 100 UNIT/ML SOLN Take 40 units at 7-8pm daily INSULIN GLARGINE 57959694862 Active Maliheh Ziglari MANAGER ACUTE Active MECLIZINE HCL 25 MG TABS 1 daily needed for dizziness MECLIZINE HCL 56793528444 No Longer Active Maliheh Ziglari MANAGER ACUTE Active BENZONATATE 200 MG CAPS 1 tab, 2-3 times a day BENZONATATE 36245692638 No Longer Active Maliheh Ziglari MANAGER ACUTE Active HALOPERIDOL 0.5 MG TABS one tablet three times a day HALOPERIDOL 27100397421 No Longer Active Maliheh Ziglari MANAGER ACUTE Active TRAZODONE HCL 50 MG TAB three tablets at bed time TRAZODONE HCL 58859910822 No Longer Active Malpapo Ziglari MANAGER ACUTE Active REVLIMID 25 MG CAPS one capsule daily for 21 days then off for 7 days 2014 LENALIDOMIDE 71107951825 No Longer Active Maliheh Ziglari MANAGER ACUTE Active ZITHROMAX Z-EDDIE 250 MG TABS 2 today, then 1 daily for 4 days 2014 AZITHROMYCIN 63720331967 No Longer Active Augustina Mata SAPPHIRE STYLUS GRINDER Active NOVOLIN R RELION 100 UNIT/ML INJ SOLN 30- 40 units each meal sliding scale INSULIN REGULAR HUMAN 63434723788 No Longer Active Malpapo Wallaceglari MANAGER ACUTE Active CALCIUM 500/D 500-200 MG-UNIT TABS one tablet daily CALCIUM CARBONATE- VITAMIN D 54521922123 Active Prosper Arenas MD Active HYDROCODONE-ACETAMINOPHEN 5-500 MG TABS 1-2 FOUR TIMES A DAY, PRN HYDROCODONE-ACETAMINOPHEN 56687785920 No Longer Active Prosper Arenas MD Active ASPIRIN 81 MG TAB 1 tablet by mouth daily ASPIRIN 85972483394 Active Prosper Arenas MD Active DOXYCYCLINE HYCLATE 100 MG CAPS take one capsule by mouth twice daily for ten days DOXYCYCLINE HYCLATE 04616164492 No Longer Active Mekhi Dukes MD Active DOXYCYCLINE HYCLATE 100 MG CAPS take one capsule by mouth twice daily for ten days DOXYCYCLINE HYCLATE 100 MG CAPS 3132066 DOXYCYCLINE HYCLATE Inactive HYDROCODONE-ACETAMINOPHEN 5-500 MG TABS 1-2 FOUR TIMES A DAY, PRN HYDROCODONE-ACETAMINOPHEN 5-500 MG TABS 192964 HYDROCODONE- ACETAMINOPHEN Inactive NOVOLIN R RELION 100 UNIT/ML INJ SOLN 30- 40 units each meal sliding scale NOVOLIN R RELION 100 UNIT/ML INJ SOLN INSULIN REGULAR HUMAN Inactive ZITHROMAX Z-EDDIE 250 MG TABS 2 today, then 1 daily for 4 days 2014 ZITHROMAX Z-EDDIE 250 MG TABS 026577 AZITHROMYCIN Inactive REVLIMID 25 MG CAPS one capsule daily for 21 days then off for 7 days 2014 REVLIMID 25 MG CAPS LENALIDOMIDE Inactive TRAZODONE HCL 50 MG TAB three tablets at bed time TRAZODONE HCL 50 MG TAB 534307 TRAZODONE HCL Inactive HALOPERIDOL 0.5 MG TABS one tablet three times a day HALOPERIDOL 0.5 MG TABS 267055 HALOPERIDOL Inactive BENZONATATE 200 MG CAPS 1 tab, 2-3 times a day BENZONATATE 200 MG CAPS 198343 BENZONATATE Inactive MECLIZINE HCL 25 MG TABS 1 daily needed for dizziness MECLIZINE HCL 25 MG TABS 098008 MECLIZINE HCL Inactive HYDROCHLOROTHIAZIDE 25 MG TABS 1 tablet by mouth daily HYDROCHLOROTHIAZIDE 25 MG TABS 096410 HYDROCHLOROTHIAZIDE Inactive PREDNISONE 20 MG TABS Take 2 daily for 3 days and then 1 daily for 3 days PREDNISONE 20 MG TABS 463017 PREDNISONE Inactive LISINOPRIL 5 MG TABS 1 daily LISINOPRIL 5 MG TABS 088101 LISINOPRIL Inactive METOPROLOL TARTRATE 25 MG TABS 1/2 tablet twice a day METOPROLOL TARTRATE 25 MG TABS 079681 METOPROLOL TARTRATE Inactive OMEPRAZOLE 20 MG CPDR 1 qd OMEPRAZOLE 20 MG CPDR 296901 OMEPRAZOLE Inactive SIMVASTATIN 80 MG TABS 1/2 tablet daily SIMVASTATIN 80 MG TABS 897005 SIMVASTATIN Inactive BENZONATATE 200 MG CAPS Take 1 tablet 3 times a day as needed for cough 07/29 BENZONATATE 200 MG CAPS 020825 BENZONATATE Inactive Immunizations Vaccine Administration Date Value [...] Value Unit Range Description blood pressure, diastolic 78 mm[Hg] BP chavez [...] W/DIFF - Chemistry sodium, serum 137 mmol/L 520-017 6349/08/16 carbon dioxide, venous blood 26.3 mmol/L 21.0-32.0 [...] Chemistry triglyceride, serum, fasting 89 mg/dL 30-200 HDL cholesterol, serum 46 mg/dL 32-60 LDL cholesterol, serum 51 mg/dL 0-130 blood glucose 104 mg/dL 65-110 cholesterol, serum 115 mg/dL 130-200 Lab Report: LIPID PANEL- REPOWER LAB - Chemistry cholesterol/HDL ratio, serum 3.0 (calc) < OR=5.0 LDL cholesterol, serum 82 MG/DL (CALC) mg/dL <130 triglyceride, serum, fasting 112 mg/dL <150 HDL cholesterol, serum 52 mg/dL > OR=40 cholesterol, serum 156 mg/dL 125-200 Lab Report: Prostatic Specific Ag - Chemistry [...] mg/dL Encounters Code Encounter Date Provider Facility CPT-64400 Level 2 Est. Patient 15:43:17 CDT Mekhi Dukes MD [facility] CPT-88515 Level 3 Est. Patient 09:30:37 CDT Jose Antonioshoaib Wall[facility] CPT-36693 Level 3 Est. Patient 10:00:14 CDT Mekhi Dukes MD [facility] CPT-61379 Level 3 Est. Patient 12:24:09 CDT Moy Garcia [facility] CPT-16686 Level 3 Est. Patient 14:34:57 CDT Prosper Arenas MD [facility] CPT-39485 Level 3 New Patient 15:44:53 SVP DIGITAL AD SALES Mekhi Dukes MD [facility] CPT-03544 Level 3 Est. Patient 14:53:34 SVP DIGITAL AD SALES Prosper Arenas MD [facility] CPT-35119 Level 4 Est. Patient 10:05:41 SVP D[employer]ITAL AD SALES Moy Rodrigokymrex [facility] CPT-79171 Level 3 Est. Patient 11:18:32 CDT Moy Bradshawari [facility] CPT-42763 Level 4 Est. Patient 11:05:10 CDT Moy Garcia [facility] CPT-84578 Level 3 Est. Patient 11:08:27 SVP DIGITAL AD SALES Moy Garcia [facility] CPT-59744 Level 4 Est. Patient 10:43:59 CDT Prosper Arenas MD [facility] CPT-11389 Level 3 Est. Patient 10:51:19 CDT Moy Garcia [facility] CPT-56878 Level 3 Est. Patient 10:20:31 CDT Moy Garcia [facility] CPT-40308 Level 3 Est. Patient 17:08:45 CDT Moy Garcia [facility] CPT-99827 Level 2 Est. Patient 13:54:36 CDT Augustina Mata SAPPHIRE STYLUS GRINDER [facility] CPT-51679 Level 3 Est. Patient 12:00:42 CDT Prosper Arenas MD [facility] CPT-83363 Level 3 Est. Patient 09:57:28 SVP DIGITAL AD SALES Luxshoaib Garcia [facility] CPT-88046 Level 3 Est. Patient 11:41:19 SVP DIGITAL AD SALES Moy Wallacerex [facility] CPT-50100 Level 4 Est. Patient 17:07:35 SVP DIGITAL AD SALES [facility] CPT-42864 Level 5 Est. Patient 14:33:32 [facility] CPT-05134 Level 3 Est. Patient 12:25:35 CDT Prosper Arenas MD [facility] Procedures Code Procedure Name Date Entry Date Standard Description CPT-000 Give Appropriate Flu Vaccine 10:13:55 SVP DIGITAL AD SALES CPT-000 Give Immunizations Due 10:13:55 SVP DIGITAL AD SALES CPT-99513 HGBA1C - LAB USE ONLY 09:42:47 SVP DIGITAL AD SALES CPT-64688 TPSA - LAB USE ONLY 09:42:46 SVP DIGITAL AD SALES CPT-90782 Venipuncture Draw Fee 09:42:46 SVP DIGITAL AD SALES CPT-35994 Port a cath flush 13:33:18 SVP DIGITAL AD SALES CPT-47716 First Vx - Ix admin for Medicare patients 10:42:57 SVP DIGITAL AD SALES CPT-57940 Fluzone Preservative Free Intramuscular Suspension 10:42 :57 SVP D[employer]ITAL AD SALES CPT-G0438 Initial Annual Wellness Exam 10:13:55 SVP DIGITAL AD SALES CPT-000 Give Appropriate Flu Vaccine 10:44:04 CDT CPT-000 Give Pneumovax 10:44:03 CDT CPT-95495 Port a cath flush 17:04:43 CDT CPT-58529 Prevnar 13 11:19:17 CDT CPT-17650 Fluzone Quadrivalent preservative free (>=3yrs.) 11:19: 17 CDT CPT-41135 Immunization Each Additional Inj 11:19:17 CDT CPT-29822 Immunization Single Admin 11:19:17 CDT CPT-11144 Port a cath flush 13:28:22 CDT CPT-TCMM Transitional Care Mgmt-Moderate 13:40:15 CDT CPT-G0008 Administration of Influenza Virus Vaccine 13:59:20 CDT CPT-06505 Fluzone High-Dose Intramuscular Suspension 13:59:20 CDT CPT-93529 Venipuncture Draw Fee 09:56:19 CDT CPT-OV Office Visit 15:46:10 CDT
--- OUTSIDE RECORDS SUMMARY | 2017-08-25 22:11 | XMS REPORT | Clinical Summary ---
Author Author Admin, IWONA Organization [employer] Address Unknown Phone Unavailable Allergies, Adverse Reactions, Alerts Allergy Name Reaction Description Start Date Severity Status Provider ERYTHROMYCIN Stomach cramps Moderate Active Prosper Arenas MD CODEINE Critical Active Maliheh Ziglari PUMPING STATION SUPERVISOR DARVOCET Critical Active Maliheh Ziglari PUMPING STATION SUPERVISOR LEVAQUIN Critical Active Maliheh Ziglari PUMPING STATION SUPERVISOR Conditions or Problems Problem Name Problem [...] type II, uncontrolled 250.02 Active Maliheh Ziglari PUMPING STATION SUPERVISOR Diabetes mellitus without mention of complication, [...] with hyperglycemia 250.00 Active 03/21 Maliheh Ziglari PUMPING STATION SUPERVISOR Diabetes mellitus without mention of complication, type II or unspecified type, not stated as uncontrolled 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 V58.67 Active Maliheh Rodrigoglari PUMPING STATION SUPERVISOR Long-term (current) use of insulin Diabetes mellitus, type II with hypoglycemia 250.80 Active 07/22 Maliheh Ziglari PUMPING STATION SUPERVISOR Diabetes mellitus with other specified manifestations, type II or unspecified type, not stated as uncontrolled 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 sugar GLUCOSE BLOOD 98241117951 Active Maliheh Ziglari PUMPING STATION SUPERVISOR Active NOVOLOG FLEXPEN 100 UNIT/ML SOPN Take 25 units with each meal, add 1u/50 for blood sugars above 150. INSULIN ASPART 66864984471 Active Maliheh Ziglari PUMPING STATION SUPERVISOR Active LANTUS SOLOSTAR 100 UNIT/ML SOLN Take 40 units at 7-8pm daily INSULIN GLARGINE 91940073064 Active Maliheh Ziglari PUMPING STATION SUPERVISOR Active MECLIZINE HCL 25 MG TABS 1 daily needed for dizziness MECLIZINE HCL 90597650706 No Longer Active Maliheh Ziglari PUMPING STATION SUPERVISOR Active BENZONATATE 200 MG CAPS 1 tab, 2-3 times a day BENZONATATE 04569096580 No Longer Active Maliheh Ziglari PUMPING STATION SUPERVISOR Active HALOPERIDOL 0.5 MG TABS one tablet three times a day HALOPERIDOL 61847748815 No Longer Active Maliheh Ziglari PUMPING STATION SUPERVISOR Active TRAZODONE HCL 50 MG TAB three tablets at bed time TRAZODONE HCL 25505664115 No Longer Active Maliheh Ziglari PUMPING STATION SUPERVISOR Active REVLIMID 25 MG CAPS one capsule daily for 21 days then off for 7 days 2014 LENALIDOMIDE 14625242104 No Longer Active Maliheh Ziglari PUMPING STATION SUPERVISOR Active ZITHROMAX Z-EDDIE 250 MG TABS 2 today, then 1 daily for 4 days 2014 AZITHROMYCIN 39650262820 No Longer Active Augustina Yoann PLASTERER STUCCO Active NOVOLIN R RELION 100 UNIT/ML INJ SOLN 30- 40 units each meal sliding scale INSULIN REGULAR HUMAN 03577727260 No Longer Active Maliheh Ziglari PUMPING STATION SUPERVISOR Active LISINOPRIL 5 MG TABS 1 daily LISINOPRIL 16986348447 Active Prosper Arenas MD Active CALCIUM 500/D 500-200 MG-UNIT TABS one tablet daily CALCIUM CARBONATE- VITAMIN D 71484315000 Active Prosper Arenas MD Active HYDROCHLOROTHIAZIDE 25 MG TABS 1 tablet by mouth daily HYDROCHLOROTHIAZIDE 28030488582 Active Prosper Arenas MD Active HYDROCODONE-ACETAMINOPHEN 5-500 MG TABS 1-2 FOUR TIMES A DAY, PRN HYDROCODONE-ACETAMINOPHEN 05323087573 No Longer Active Prosper Arenas MD Active SIMVASTATIN 80 MG TABS 1/2 tablet daily SIMVASTATIN 52056721421 Active Prosper Arenas MD Active METOPROLOL TARTRATE 25 MG TABS 1/2 tablet twice a day METOPROLOL TARTRATE 81843675397 Active Prosper Arenas MD Active ASPIRIN 81 MG TAB 1 tablet by mouth daily ASPIRIN 48599717512 Active Prosper Arenas MD Active OMEPRAZOLE 20 MG CPDR 1 qd OMEPRAZOLE 43553001124 Active DARCIE Miller Active DOXYCYCLINE HYCLATE 100 MG CAPS take one capsule by mouth twice daily for ten days DOXYCYCLINE HYCLATE 34610753964 No Longer Active Mekhi Dukes MD Active DOXYCYCLINE HYCLATE 100 MG CAPS take one capsule by mouth twice daily for ten days DOXYCYCLINE HYCLATE 100 MG CAPS 5456956 DOXYCYCLINE HYCLATE Inactive HYDROCODONE-ACETAMINOPHEN 5-500 MG TABS [...] days 2014 ZITHROMAX Z-EDDIE 250 MG TABS 2427671 AZITHROMYCIN Inactive REVLIMID 25 MG CAPS one capsule daily for 21 days then off for 7 days 2014 REVLIMID 25 MG CAPS LENALIDOMIDE Inactive TRAZODONE HCL 50 MG TAB three tablets at bed time TRAZODONE HCL 50 MG TAB 010025 TRAZODONE HCL Inactive HALOPERIDOL 0.5 MG TABS one tablet three times a day HALOPERIDOL 0.5 MG TABS 134682 HALOPERIDOL Inactive BENZONATATE 200 MG CAPS 1 tab, 2-3 times a day BENZONATATE 200 MG CAPS 838278 BENZONATATE Inactive MECLIZINE HCL 25 MG TABS 1 daily needed for dizziness MECLIZINE HCL 25 MG TABS 425425 MECLIZINE HCL Inactive Immunizations Vaccine Administration Date [...] mg/dL Encounters Code Encounter Date Provider Facility CPT-59295 Level 3 Est. Patient 14:53:34 VOLUNTEER COORDINATOR Prosper Arenas MD [facility] CPT-65251 Level 4 Est. Patient 10:05:41 VOLUNTEER COORDINATOR Moy Garcia [facility] CPT-86654 Level 3 Est. Patient 11:18:32 [facility] CPT-25189 Level 4 Est. Patient 11:05:10 CDT Moy Garcia [facility] CPT-52232 Level 3 Est. Patient 11:08:27 VOLUNTEER COORDINATOR Moy Garcia [facility] CPT-59268 Level 4 Est. Patient 10:43:59 CDT Prosper Arenas MD [facility] CPT-36630 Level 3 Est. Patient 10:51:19 [facility] Level 3 Est. Patient 10:20:31 CDT [facility] Level 3 Est. Patient 17:08:45 [facility] CPT-18932 Level 2 Est. Patient 13:54:36 CDT Augustina Mata APRN [facility] CPT-79523 Level 3 Est. Patient 12:00:42 CDT Prosper Arenas MD [facility] CPT-28896 Level 3 Est. Patient 09:57:28 VOLUNTEER COORDINATOR Moy Garcia [facility] CPT-57938 Level 3 Est. Patient 11:41:19 VOLUNTEER COORDINATOR [facility] Jose [facility] CPT-13940 Level 4 Est. Patient 17:07:35 VOLUNTEER COORDINATOR [facility] Level 5 Est. Patient 14:33:32 CDT Moy PARISH [facility] CPT-01227 Level 3 Est. Patient 12:25:35 CDT Prosper Arenas MD [facility] Procedures Code Procedure Name Date Entry Date Standard Description CPT-000 Give Appropriate Flu Vaccine 10:13:55 VOLUNTEER COORDINATOR CPT-000 Give Immunizations Due 10:13:55 VOLUNTEER COORDINATOR CPT-58495 HGBA1C - LAB USE ONLY 09:42:47 VOLUNTEER COORDINATOR CPT-19979 TPSA - LAB USE ONLY 09:42:46 VOLUNTEER COORDINATOR CPT-36087 Venipuncture Draw Fee 09:42:46 VOLUNTEER COORDINATOR CPT-73574 Port a cath flush 13:33:18 VOLUNTEER COORDINATOR CPT-66597 First Vx - Ix admin for Medicare patients 10:42:57 VOLUNTEER COORDINATOR CPT-24367 Fluzone Preservative Free Intramuscular Suspension 10:42 :57 VOLUNTEER COORDINATOR CPT-G0438 Initial Annual Wellness Exam 10:13:55 VOLUNTEER COORDINATOR CPT-000 Give Appropriate Flu Vaccine 10:44:04 CDT CPT-000 Give Pneumovax 10:44:03 CDT CPT-59944 Port a cath flush 17:04:43 CDT CPT-02265 Prevnar 13 11:19:17 CDT CPT-03922 Fluzone Quadrivalent preservative free (>=3yrs.) 11:19: 17 CDT CPT-94568 Immunization Each Additional Inj 11:19:17 CDT CPT-50871 Immunization Single Admin 11:19:17 CDT CPT-75752 Port a cath flush 13:28:22 CDT CPT-TCMM Transitional Care Mgmt-Moderate 13:40:15 CDT CPT-G0008 Administration of Influenza Virus Vaccine 13:59:20 CDT CPT-05338 Fluzone High-Dose Intramuscular Suspension 13:59:20 CDT CPT-48810 Venipuncture Draw Fee 09:56:19 CDT CPT-OV Office Visit 15:46:10 CDT
--- OUTSIDE RECORDS SUMMARY | 2017-08-25 22:12 | XMS REPORT | Clinical Summary ---
Author Author Admin, IWONA Organization [employer] Address Unknown Phone Unavailable Allergies, Adverse Reactions, Alerts Allergy Name Reaction Description Start Date Severity Status Provider ERYTHROMYCIN Stomach cramps Moderate Active Prosper Arenas MD CODEINE Critical Active Maliheh Ziglari HOSPICE VOLUNTEER DARVOCET Critical Active Maliheh Ziglari HOSPICE VOLUNTEER LEVAQUIN Critical Active Maliheh Ziglari HOSPICE VOLUNTEER Conditions or Problems Problem Name Problem Code [...] type II, uncontrolled 250.02 Active Maliheh Ziglari HOSPICE VOLUNTEER Diabetes mellitus without mention of complication, type [...] with hyperglycemia 250.00 Active 03/21 Maliheh Ziglari HOSPICE VOLUNTEER Diabetes mellitus without mention of complication, type II or unspecified type, not stated as uncontrolled custodial use of insulin treatment V58.67 Active Maliheh Ziglari HOSPICE VOLUNTEER Long-term (current) use of insulin Diabetes mellitus, type II with hypoglycemia 250.80 Active 07/22 Maliheh Ziglari HOSPICE VOLUNTEER Diabetes mellitus with other specified manifestations, type II or unspecified type, not stated as uncontrolled 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 Maliheh Ziglari HOSPICE VOLUNTEER Diabetes mellitus with renal manifestations, type II or unspecified type, not stated as uncontrolled Wellness exam V70.0 Active Dee Palmer APRN Routine general medical examination at a health care facility Fitting and adjustment of vascular catheter V58.81 Active 02/06 Dee Palmer APRN Encounter for fitting and adjustment of vascular catheter Unawareness of hypoglycemia in diabetes mellitus, type II 250.80 Active Maliheh Ziglari HOSPICE VOLUNTEER Diabetes mellitus with other specified manifestations, type [...] day as needed for cough 07/29 BENZONATATE 48183395488 Active Prosper Arenas MD Active PREDNISONE 20 MG TABS Take 2 daily for 3 days and then 1 daily for 3 days PREDNISONE 04852758448 Active Prosper Arenas MD Active HYDROCHLOROTHIAZIDE 25 MG TABS 1 tablet by mouth daily HYDROCHLOROTHIAZIDE 99422005288 No Longer Active Prosper Arenas MD Active ACCU-CHEK JOANNA PLUS STRP check blood sugars 5x a day, before each meal and bedtime and 15 minutes after treating a low blood. sugar GLUCOSE BLOOD 69001670774 Active Maliheh Ziglari HOSPICE VOLUNTEER Active NOVOLOG FLEXPEN 100 UNIT/ML SOPN Take 25 units with each meal, add 1u/50 for blood sugars above 150. INSULIN ASPART 03194867263 Active Maliheh Ziglari HOSPICE VOLUNTEER Active LANTUS SOLOSTAR 100 UNIT/ML SOLN Take 40 units at 7-8pm daily INSULIN GLARGINE 55837119852 [facility] Ziglari HOSPICE VOLUNTEER Active MECLIZINE HCL 25 MG TABS 1 daily needed for dizziness MECLIZINE HCL 74467458102 No Longer Active [facility] Ziglari HOSPICE VOLUNTEER Active BENZONATATE 200 MG CAPS 1 tab, 2-3 times a day BENZONATATE 95162914871 No Longer Active [facility] Ziglari HOSPICE VOLUNTEER Active HALOPERIDOL 0.5 MG TABS one tablet three times a day HALOPERIDOL 01818788917 No Longer Active [facility] Ziglari HOSPICE VOLUNTEER Active TRAZODONE HCL 50 MG TAB three tablets at bed time TRAZODONE HCL 31257824718 No Longer Active [facility] Ziglari HOSPICE VOLUNTEER Active REVLIMID 25 MG CAPS one capsule daily for 21 days then off for 7 days 2014 LENALIDOMIDE 74769191363 No Longer Active [facility] Ziglari HOSPICE VOLUNTEER Active ZITHROMAX Z-EDDIE 250 MG TABS 2 today, then 1 daily for 4 days 2014 AZITHROMYCIN 88720724516 No Longer Active Augustina Mata CRANE MANAGER Active NOVOLIN R RELION 100 UNIT/ML INJ SOLN 30- 40 units each meal sliding scale INSULIN REGULAR HUMAN 15489866510 No Longer Active [facility]OL[facility] Active LISINOPRIL 5 MG TABS 1 daily LISINOPRIL 68957292512 Active Prosper Arenas MD Active CALCIUM 500/D 500-200 MG-UNIT TABS one tablet daily CALCIUM CARBONATE- VITAMIN D 81337972175 Active Prosper Arenas MD Active HYDROCODONE-ACETAMINOPHEN 5-500 MG TABS 1-2 FOUR TIMES A DAY, PRN HYDROCODONE-ACETAMINOPHEN 93894772685 No Longer Active Prosper Arenas MD Active SIMVASTATIN 80 MG TABS 1/2 tablet daily SIMVASTATIN 29124072737 Active Prosper Arenas MD Active METOPROLOL TARTRATE 25 MG TABS 1/2 tablet twice a day METOPROLOL TARTRATE 60111817852 Active Prosper Arenas MD Active ASPIRIN 81 MG TAB 1 tablet by mouth daily ASPIRIN 96688749861 Active Prosper Arenas MD Active OMEPRAZOLE 20 MG CPDR 1 qd OMEPRAZOLE 36088090075 Active DARCIE Miller Active DOXYCYCLINE HYCLATE 100 MG CAPS take one capsule by mouth twice daily for ten days DOXYCYCLINE HYCLATE 84457133795 No Longer Active Mekhi Dukes MD Active DOXYCYCLINE HYCLATE 100 MG CAPS take one capsule by mouth twice daily for ten days DOXYCYCLINE HYCLATE 100 MG CAPS 7014566 DOXYCYCLINE HYCLATE Inactive HYDROCODONE-ACETAMINOPHEN 5-500 MG TABS [...] days 2014 ZITHROMAX Z-EDDIE 250 MG TABS 7647610 AZITHROMYCIN Inactive REVLIMID 25 MG CAPS one capsule daily for 21 days then off for 7 days 2014 REVLIMID 25 MG CAPS LENALIDOMIDE Inactive TRAZODONE HCL 50 MG TAB three tablets at bed time TRAZODONE HCL 50 MG TAB 905013 TRAZODONE HCL Inactive HALOPERIDOL 0.5 MG TABS one tablet three times a day HALOPERIDOL 0.5 MG TABS 672364 HALOPERIDOL Inactive BENZONATATE 200 MG CAPS 1 tab, 2-3 times a day BENZONATATE 200 MG CAPS 544652 BENZONATATE Inactive MECLIZINE HCL 25 MG TABS 1 daily needed for dizziness MECLIZINE HCL 25 MG TABS 157667 MECLIZINE HCL Inactive HYDROCHLOROTHIAZIDE 25 MG TABS 1 tablet by mouth daily HYDROCHLOROTHIAZIDE 25 MG TABS 872603 HYDROCHLOROTHIAZIDE Inactive Immunizations Vaccine Administration Date Value [...] LAB - Chemistry cholesterol, serum 156 mg/dL 915-022 8711/02/20 HDL cholesterol, serum 52 mg/dL > OR=40 [...] mg/dL Encounters Code Encounter Date Provider Facility CPT-10157 Level 3 Est. Patient 14:34:57 CDT Prosper Arenas MD [facility] CPT-21036 Level 3 New Patient 15:44:53 TECHNICAL SALES REPRESENTATIVE Mekhi Dukes MD [facility] CPT-97026 Level 3 Est. Patient 14:53:34 TECHNICAL SALES REPRESENTATIVE Prosper Arenas MD [facility] CPT-97651 Level 4 Est. Patient 10:05:41 TECHNICAL SALES REPRESENTATIVE [facility] CPT-51666 Level 3 Est. Patient 11:18:32 CDT [facility] CPT-36100 Level 4 Est. Patient 11:05:10 CDT [facility] CPT-19174 Level 3 Est. Patient 11:08:27 TECHNICAL SALES REPRESENTATIVE [facility]43 Level 4 Est. Patient 10:43:59 CDT Prosper Arneas MD [facility] CPT-40930 Level 3 Est. Patient 10:51:19 CDT [facility] [place]-58791 Level 3 Est. Patient 10:20:31 CDT [facility] [place]PT-32980 Level 3 Est. Patient 17:08:45 CDT [facility] [place] [facility] CPT-46007 Level 2 Est. Patient 13:54:36 CDT Augustina Mata BESSY [facility] CPT-59862 Level 3 Est. Patient 12:00:42 CDT Prosper Arenas MD [facility] CPT-35100 Level 3 Est. Patient 09:57:28 TECHNICAL SALES REPRESENTATIVE [facility] CPT-95512 Level 3 Est. Patient 11:41:19 TECHNICAL SALES REPRESENTATIVE Moy Garcia [facility] CPT-56493 Level 4 Est. Patient 17:07:35 TECHNICAL SALES REPRESENTATIVE [facility] Level 5 Est. [facility] 14:33:32 [facility] CPT-94424 Level 3 Est. Patient 12:25:35 CDT Prosper Arenas MD [facility] Procedures Code Procedure Name Date Entry Date Standard Description CPT-000 Give Appropriate Flu Vaccine 10:13:55 TECHNICAL SALES REPRESENTATIVE CPT-000 Give Immunizations Due 10:13:55 TECHNICAL SALES REPRESENTATIVE CPT-15371 HGBA1C - LAB USE ONLY 09:42:47 TECHNICAL SALES REPRESENTATIVE CPT-03833 TPSA - LAB USE ONLY 09:42:46 TECHNICAL SALES REPRESENTATIVE CPT-36063 Venipuncture Draw Fee 09:42:46 TECHNICAL SALES REPRESENTATIVE CPT-99228 Port a cath flush 13:33:18 TECHNICAL SALES REPRESENTATIVE CPT-70577 First Vx - Ix admin for Medicare patients 10:42:57 TECHNICAL SALES REPRESENTATIVE CPT-84125 Fluzone Preservative Free Intramuscular Suspension 10:42 :57 TECHNICAL SALES REPRESENTATIVE CPT-G0438 Initial Annual Wellness Exam 10:13:55 TECHNICAL SALES REPRESENTATIVE CPT-000 Give Appropriate Flu Vaccine 10:44:04 CDT CPT-000 Give Pneumovax 10:44:03 CDT CPT-52657 Port a cath flush 17:04:43 CDT CPT-26216 Prevnar 13 11:19:17 CDT CPT-28020 Fluzone Quadrivalent preservative free (>=3yrs.) 11:19: 17 CDT CPT-86717 Immunization Each Additional Inj 11:19:17 CDT CPT-94963 Immunization Single Admin 11:19:17 CDT CPT-79033 Port a cath flush 13:28:22 CDT CPT-TCMM Transitional Care Mgmt-Moderate 13:40:15 CDT CPT-G0008 Administration of Influenza Virus Vaccine 13:59:20 CDT CPT-71360 Fluzone High-Dose Intramuscular Suspension 13:59:20 CDT CPT-68505 Venipuncture Draw Fee 09:56:19 CDT CPT-OV Office Visit 15:46:10 CDT
--- OUTSIDE RECORDS SUMMARY | 2017-08-25 22:13 | XMS REPORT | Clinical Summary ---
Author Author Admin, IWONA Organization [employer] Address Unknown Phone Unavailable Allergies, Adverse Reactions, Alerts Allergy Name Reaction Description Start Date Severity Status Provider ERYTHROMYCIN Stomach cramps Moderate Active Prosper Arenas MD CODEINE Critical Active Maliheh Ziglari LPN PRIVATE DUTY DARVOCET Critical Active Maliheh Ziglari LPN PRIVATE DUTY LEVAQUIN Critical Active Maliheh Ziglari LPN PRIVATE DUTY Conditions or Problems Problem Name Problem Code [...] type II, uncontrolled 250.02 Active Maliheh Ziglari LPN PRIVATE DUTY Diabetes mellitus without mention of complication, type [...] with hyperglycemia 250.00 Active 03/21 Maliheh Ziglari LPN PRIVATE DUTY Diabetes mellitus without mention of complication, type II or unspecified type, not stated as uncontrolled 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 V58.67 Active Maliheh Ziglari LPN PRIVATE DUTY Long-term (current) use of insulin Diabetes mellitus, type II with hypoglycemia 250.80 Active 07/22 Maliheh Ziglari LPN PRIVATE DUTY Diabetes mellitus with other specified manifestations, type II or unspecified type, not stated as uncontrolled 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 INSULIN GLARGINE 77837242954 Active Maliheh Ziglari LPN PRIVATE DUTY Active MECLIZINE HCL 25 MG TABS 1 daily needed for dizziness MECLIZINE HCL 23925971981 No Longer Active Maliheh Ziglari LPN PRIVATE DUTY Active ACCU-CHEK JOANNA PLUS STRP check blood sugars 3x a day GLUCOSE BLOOD 58767550183 Active Maliheh Ziglari LPN PRIVATE DUTY Active NOVOLOG FLEXPEN 100 UNIT/ML SOPN Take 25 units with each meal, add 2u/50 for blood sugars above 150. INSULIN ASPART 96379408958 [facility] Ziglari LPN PRIVATE DUTY Active BENZONATATE 200 MG CAPS 1 tab, 2-3 times a day BENZONATATE 04539154525 No Longer Active [facility] Ziglari LPN PRIVATE DUTY Active HALOPERIDOL 0.5 MG TABS one tablet three times a day HALOPERIDOL 28292178367 No Longer Active [facility] Ziglari LPN PRIVATE DUTY Active TRAZODONE HCL 50 MG TAB three tablets at bed time TRAZODONE HCL 12625180522 No Longer Active [facility] Ziglari LPN PRIVATE DUTY Active REVLIMID 25 MG CAPS one capsule daily for 21 days then off for 7 days 2014 LENALIDOMIDE 34903145280 No Longer Active [facility] Ziglari LPN PRIVATE DUTY Active ZITHROMAX Z-EDDIE 250 MG TABS 2 today, then 1 daily for 4 days 2014 AZITHROMYCIN 86759418450 No Longer Active Augustina Mata VP STRATEGY Active NOVOLIN R RELION 100 UNIT/ML INJ SOLN 30- 40 units each meal sliding scale INSULIN REGULAR HUMAN 46839384199 No Longer Active [facility] L[facility] PRIVATE DUTY Active LISINOPRIL 5 MG TABS 1 daily LISINOPRIL 89551702169 Active Prosper Arenas MD Active CALCIUM 500/D 500-200 MG-UNIT TABS one tablet daily CALCIUM CARBONATE- VITAMIN D 55429763229 Active Prosper Arenas MD Active HYDROCHLOROTHIAZIDE 25 MG TABS 1 tablet by mouth daily HYDROCHLOROTHIAZIDE 90393532525 Active Prosper Arenas MD Active HYDROCODONE-ACETAMINOPHEN 5-500 MG TABS 1-2 FOUR TIMES A DAY, PRN HYDROCODONE-ACETAMINOPHEN 51038008473 No Longer Active Prosper Arenas MD Active SIMVASTATIN 80 MG TABS 1/2 tablet daily SIMVASTATIN 09409874271 Active Prosper Arenas MD Active METOPROLOL TARTRATE 25 MG TABS 1/2 tablet twice a day METOPROLOL TARTRATE 55973767369 Active Prosper Arenas MD Active ASPIRIN 81 MG TAB 1 tablet by mouth daily ASPIRIN 32892841083 Active Prosper Arenas MD Active OMEPRAZOLE 20 MG CPDR 1 qd OMEPRAZOLE 89385419075 Active DARCIE Miller Active DOXYCYCLINE HYCLATE 100 MG CAPS take one capsule by mouth twice daily for ten days DOXYCYCLINE HYCLATE 55450936881 No Longer Active Mekhi Dukes MD Active DOXYCYCLINE HYCLATE 100 MG CAPS take one capsule by mouth twice daily for ten days DOXYCYCLINE HYCLATE 100 MG CAPS 7248148 DOXYCYCLINE HYCLATE Inactive HYDROCODONE-ACETAMINOPHEN 5-500 MG TABS [...] days 2014 ZITHROMAX Z-EDDIE 250 MG TABS 1048630 AZITHROMYCIN Inactive REVLIMID 25 MG CAPS one capsule daily for 21 days then off for 7 days 2014 REVLIMID 25 MG CAPS LENALIDOMIDE Inactive TRAZODONE HCL 50 MG TAB three tablets at bed time TRAZODONE HCL 50 MG TAB 424536 TRAZODONE HCL Inactive HALOPERIDOL 0.5 MG TABS one tablet three times a day HALOPERIDOL 0.5 MG TABS 612059 HALOPERIDOL Inactive BENZONATATE 200 MG CAPS 1 tab, 2-3 times a day BENZONATATE 200 MG CAPS 824372 BENZONATATE Inactive MECLIZINE HCL 25 MG TABS 1 daily needed for dizziness MECLIZINE HCL 25 MG TABS 807378 MECLIZINE HCL Inactive Immunizations Vaccine Administration Date [...] HGBA1C - Chemistry sodium, serum 137 mmol/L 452-626 4352/10/23 potassium, serum 3.5 mmol/L 3.5-5.2 chloride, serum [...] mg/dL Encounters Code Encounter Date Provider Facility CPT-87137 Level 3 Est. Patient 11:18:32 CDT Moy Garcia [facility] [place] CPT-23462 Level 4 Est. Patient 11:05:10 CDT [facility] Level 3 Est. Patient 11:08:27 JOURNEYMAN APPRENTICE ELECTRICIANS [facility] Level 4 Est. Patient 10:43:59 CDT Prosper Arenas MD [facility] CPT-66015 Level 3 Est. Patient 10:51:19 CD[facility] Level 3 Est. Patient 10:20:31 CDT [facility] CPT-44880 Level 3 Est. Patient 17:08:45 CDT [facility] CPT-04149 Level 2 Est. Patient 13:54:36 CDT Augustina Mata APRN [facility] CPT-01156 Level 3 Est. Patient 12:00:42 CDT Prosper Arenas MD [facility] CPT-32775 Level 3 Est. Patient 09:57:28 JOURNEYMAN APPRENTICE ELECTRICIANS [facility] Level 3 Est. Patient 11:41:19 JOURNEYMAN APPRENTICE ELECTRICIANS [facility] CPT-13055 Level 4 Est. Patient 17:07:35 JOURNEYMAN APPRENTICE ELECTRICIANS [facility] [place] CPT-66009 Level 5 Est. Patient 14:33:32 CDT [facility] CPT-38526 Level 3 Est. Patient 12:25:35 CDT Prosper Arenas MD [facility] Procedures Code Procedure Name Date Entry Date Standard Description CPT-000 Give Appropriate Flu Vaccine 10:44:04 CDT CPT-000 Give Pneumovax 10:44:03 CDT CPT-72535 Port a cath flush 17:04:43 CDT CPT-45409 Prevnar 13 11:19:17 CDT CPT-51559 Fluzone Quadrivalent preservative free (>=3yrs.) 11:19: 17 CDT CPT-48794 Immunization Each Additional Inj 11:19:17 CDT CPT-26397 Immunization Single Admin 11:19:17 CDT CPT-99690 Port a cath flush 13:28:22 CDT CPT-TCMM Transitional Care Mgmt-Moderate 13:40:15 CDT CPT-G0008 Administration of Influenza Virus Vaccine 13:59:20 CDT CPT-99538 Fluzone High-Dose Intramuscular Suspension 13:59:20 CDT CPT-50837 Venipuncture Draw Fee 09:56:19 CDT CPT-OV Office Visit 15:46:10 CDT
--- OUTSIDE RECORDS SUMMARY | 2017-08-25 22:14 | XMS REPORT | Clinical Summary ---
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, type II [...] type II, uncontrolled 250.02 Active Maliheh Rodrigoglari STONE DRILLER HELPER Diabetes mellitus without mention of complication, [...] with hyperglycemia 250.00 Active 03/21 Maliheh Ziglari STONE DRILLER HELPER Diabetes mellitus without mention of complication, type II or unspecified type, not stated as uncontrolled alf use of insulin treatment V58.67 Active Luxiheh Rodrigoglari STONE DRILLER HELPER Long-term (current) use of insulin Diabetes mellitus, type II with hypoglycemia 250.80 Active 07/22 Maliheh Ziglari STONE DRILLER HELPER Diabetes mellitus with other specified manifestations, type II or unspecified type, not stated as uncontrolled 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 Maliheh Ziglari STONE DRILLER HELPER Diabetes mellitus with renal manifestations, type II or unspecified type, not stated as uncontrolled Wellness exam V70.0 Active Dee Palmer APRN Routine general medical examination at a health care facility Fitting and adjustment of vascular catheter V58.81 Active 02/06 Dee Palmer APRN Encounter for fitting and adjustment of vascular catheter Unawareness of hypoglycemia in diabetes mellitus, type II 250.80 Active Maliheh oRdrigoglari STONE DRILLER HELPER Diabetes mellitus with other specified manifestations, [...] specified as recurrent) Gastritis Inactive Maliheh Ziglari STONE DRILLER HELPER Unspecified gastritis and gastroduodenitis, without mention of [...] po qd x 4 days 05/07 AZITHROMYCIN [id number] No Longer Active Dee Palmer APRN Active GUAIFENESIN DM 400-20 MG ORAL TABLET 1 pill by mouth twice daily, if needed for cough DEXTROMETHORPHAN-GUAIFENESIN 90449900753 Active Dee Palmer APRN Active PREDNISONE 20 MG ORAL TABLET 2 tabs daily for 4 days, 1 tab daily for 4 days, 1/2 tab daily for 4 days PREDNISONE 00996222867 Active Dee Palmer APRN Active ASPIRIN 81 MG ORAL TABLET 1 po qd ASPIRIN 74655452642 Active Dee Palmer APRN Active CALCIUM 500/D 500-200 MG-UNIT ORAL TABLET one tablet daily CALCIUM CARBONATE-VITAMIN D 30431447338 No Longer Active Dee Palmer APRN Active HYDROCODONE-ACETAMINOPHEN 7.5-325 MG ORAL TABLET 1-2 every 4-6 hrs prn 02/25 HYDROCODONE-ACETAMINOPHEN 78116113708 Active Marina Messina BSESY Active ASPIRIN 81 MG ORAL TABLET 1 tablet by mouth daily ASPIRIN 01988311351 No Longer Active Marina Messina BESSY Active SIMVASTATIN 80 MG ORAL TABLET 1/2 tablet daily SIMVASTATIN 43812279312 No Longer Active Mekhi Dukes MD Active OMEPRAZOLE 20 MG ORAL CAPSULE DELAYED RELEASE 1 qd OMEPRAZOLE 31546960906 No Longer Active Mekhi Dukes MD Active METOPROLOL TARTRATE 25 MG ORAL TABLET 1/2 tablet twice a day METOPROLOL TARTRATE 08172376746 No Longer Active Mekhi Dukes MD Active LISINOPRIL 5 MG ORAL TABLET 1 daily LISINOPRIL 47095570447 No Longer Active Mekhi Dukes MD Active NOVOLOG FLEXPEN 100 UNIT/ML SUBCUTANEOUS SOLUTION PEN-INJECTOR Take 8 units with each meal, add 1u/50 for blood sugars above 150. INSULIN ASPART 99802566967 Active Moy PARISH Active GABAPENTIN 300 MG ORAL CAPSULE 1 tab BID GABAPENTIN 50342943886 Active Tami Miller RN Active PREDNISONE 20 MG ORAL TABLET Take 2 daily for 3 days and then 1 daily for 3 days PREDNISONE 86391459991 No Longer Active Moy PARISH Active BENZONATATE 200 MG ORAL CAPSULE Take 1 tablet 3 times a day as needed for cough BENZONATATE 77967313240 No Longer Active Prosper Arenas MD Active HYDROCHLOROTHIAZIDE 25 MG ORAL TABLET 1 tablet by mouth daily HYDROCHLOROTHIAZIDE 93956869726 No Longer Active Porsper Arenas MD Active ACCU-CHEK JOANNA PLUS IN VITRO STRIP check blood sugars 5x a day, before each meal and bedtime and 15 minutes after treating a low blood. sugar GLUCOSE BLOOD 20715018695 Active Moy PARISH Active LANTUS SOLOSTAR 100 UNIT/ML SUBCUTANEOUS SOLUTION PEN-INJECTOR Take 40 units at 7-8pm daily INSULIN GLARGINE 03431425359 Active Maliheh Ziglari STONE DRILLER HELPER Active MECLIZINE HCL 25 MG ORAL TABLET 1 daily needed for dizziness 2015 MECLIZINE HCL 84412227002 No Longer Active Maliheh Ziglari STONE DRILLER HELPER Active BENZONATATE 200 MG ORAL CAPSULE 1 tab, 2-3 times a day BENZONATATE 98950782537 No Longer Active Maleh Ziglari STONE DRILLER HELPER Active HALOPERIDOL 0.5 MG ORAL TABLET one tablet three times a day HALOPERIDOL 06790465541 No Longer Active Maliheh Ziglari STONE DRILLER HELPER Active TRAZODONE HCL 50 MG ORAL TABLET three tablets at bed time TRAZODONE HCL 46151315824 No Longer Active Maleh Ziglari STONE DRILLER HELPER Active REVLIMID 25 MG ORAL CAPSULE one capsule daily for 21 days then off for 7 days LENALIDOMIDE 23787094431 No Longer Active [facility] Ziglari STONE DRILLER HELPER Active ZITHROMAX Z-EDDIE 250 MG ORAL TABLET 2 today, then 1 daily for 4 days AZITHROMYCIN 49645830309 No Longer Active Augustina Mata FLIGHT INFORMATION EXPEDITER Active NOVOLIN R RELION 100 UNIT/ML INJECTION SOLUTION 30- 40 units each meal sliding scale INSULIN REGULAR HUMAN 41189670981 No Longer Active Moy Wallaceglari STONE DRILLER HELPER Active HYDROCODONE-ACETAMINOPHEN 5-500 MG ORAL TABLET 1-2 FOUR TIMES A DAY, PRN 2010 HYDROCODONE-ACETAMINOPHEN 47502481362 No Longer Active Prosper Arenas MD Active DOXYCYCLINE HYCLATE 100 MG ORAL CAPSULE take one capsule by mouth twice daily for ten days DOXYCYCLINE HYCLATE 76292804919 No Longer Active Mekhi Dukes MD Active DOXYCYCLINE HYCLATE 100 MG ORAL CAPSULE take one capsule by mouth twice daily for ten days DOXYCYCLINE HYCLATE 100 MG ORAL CAPSULE 7744590 DOXYCYCLINE HYCLATE Inactive HYDROCODONE-ACETAMINOPHEN 5-500 MG ORAL TABLET 1-2 FOUR TIMES A DAY, PRN 2010 HYDROCODONE-ACETAMINOPHEN 5-500 MG ORAL TABLET 245616 HYDROCODONE-ACETAMINOPHEN Inactive NOVOLIN R RELION 100 UNIT/ML INJECTION SOLUTION 30- 40 units each meal sliding scale NOVOLIN R RELION 100 UNIT/ML INJECTION SOLUTION INSULIN REGULAR HUMAN Inactive ZITHROMAX Z-EDDIE 250 MG ORAL TABLET 2 today, then 1 daily for 4 days ZITHROMAX Z-EDDIE 250 MG ORAL TABLET 956609 AZITHROMYCIN Inactive REVLIMID 25 MG ORAL CAPSULE one capsule daily for 21 days then off for 7 days REVLIMID 25 MG ORAL CAPSULE LENALIDOMIDE Inactive TRAZODONE HCL 50 MG ORAL TABLET three tablets at bed time TRAZODONE HCL 50 MG ORAL TABLET 658283 TRAZODONE HCL Inactive HALOPERIDOL 0.5 MG ORAL TABLET one tablet three times a day HALOPERIDOL 0.5 MG ORAL TABLET 427994 HALOPERIDOL Inactive BENZONATATE 200 MG ORAL CAPSULE 1 tab, 2-3 times a day BENZONATATE 200 MG ORAL CAPSULE 455499 BENZONATATE Inactive MECLIZINE HCL 25 MG ORAL TABLET 1 daily needed for dizziness 2015 MECLIZINE HCL 25 MG ORAL TABLET 981117 MECLIZINE HCL Inactive HYDROCHLOROTHIAZIDE 25 MG ORAL TABLET 1 tablet by mouth daily HYDROCHLOROTHIAZIDE 25 MG ORAL TABLET 819992 HYDROCHLOROTHIAZIDE Inactive PREDNISONE 20 MG ORAL TABLET Take 2 daily for 3 days and then 1 daily for 3 days PREDNISONE 20 MG ORAL TABLET 115651 PREDNISONE Inactive LISINOPRIL 5 MG ORAL TABLET 1 daily LISINOPRIL 5 MG ORAL TABLET 553962 LISINOPRIL Inactive METOPROLOL TARTRATE 25 MG ORAL TABLET 1/2 tablet twice a day METOPROLOL TARTRATE 25 MG ORAL TABLET 407667 METOPROLOL TARTRATE Inactive OMEPRAZOLE 20 MG ORAL CAPSULE DELAYED RELEASE 1 qd OMEPRAZOLE 20 MG ORAL CAPSULE DELAYED RELEASE 440758 OMEPRAZOLE Inactive SIMVASTATIN 80 MG ORAL TABLET 1/2 tablet daily SIMVASTATIN 80 MG ORAL TABLET 955398 SIMVASTATIN Inactive ASPIRIN 81 MG ORAL TABLET 1 tablet by mouth daily ASPIRIN 81 MG ORAL TABLET 387163 ASPIRIN Inactive CALCIUM 500/D 500-200 MG-UNIT ORAL TABLET one tablet daily CALCIUM 500/D 500-200 MG-UNIT ORAL TABLET CALCIUM CARBONATE-VITAMIN D Inactive BENZONATATE 200 MG ORAL CAPSULE Take 1 tablet 3 times a day as needed for cough BENZONATATE 200 MG ORAL CAPSULE 442494 BENZONATATE Inactive AZITHROMYCIN 250 MG ORAL TABLET 2 po qd x 1 day, then 1 po qd x 4 days 05/07 AZITHROMYCIN 250 MG ORAL TABLET 869393 AZITHROMYCIN Inactive Immunizations Vaccine Administration Date Value [...] Measured blood pressure, diastolic 80 mm[Hg] BP hcavez blood pressure, systolic 120 mm[Hg] BP sys [...] W/DIFF - Chemistry sodium, serum 137 mmol/L 195-183 4564/08/16 carbon dioxide, venous blood 26.3 mmol/L 21.0-32.0 [...] LABS - Chemistry cholesterol, serum 115 mg/dL 305-387 5209/08/18 triglyceride, serum, fasting 89 mg/dL 30-200 HDL cholesterol, serum 46 mg/dL 32-60 LDL cholesterol, serum 51 mg/dL 0-130 blood glucose 104 mg/dL 65-110 Lab Report: LIPID PANEL- REPOWER LAB - Chemistry cholesterol, serum 156 mg/dL [phone]/02/20 HDL cholesterol, serum 52 mg/dL > OR=40 [...] mg/dL Encounters Code Encounter Date Provider Facility CPT-70844 Level 3 Est. Patient 14:09:25 SLIME PLANT OPERATOR HELPER Dee Palmer APRN [facility] CPT-33845 Level 3 Est. Patient 10:53:32 SLIME PLANT OPERATOR HELPER Moy Garcia [facility] CPT-64933 Level 3 Est. Patient 17:11:55 SLIME PLANT OPERATOR HELPER Ismael Gracia MD [facility] CPT-78775 Level 4 Est. Patient 16:29:19 CDT Mekhi Dukes MD [facility] CPT-90668 Level 3 New Patient 17:05:24 CDT Ismael Gracia MD [facility] CPT-01491 Level 2 Est. Patient 15:43:17 CDT Mekhi Dukes MD [facility] CPT-41688 Level 3 Est. Patient 09:30:37 CDT Moy Garcia [facility] CPT-50223 Level 3 Est. Patient 10:00:14 CDT Mekhi Dukes MD [facility] CPT-49184 Level 3 Est. [facility]24[facility] CPT-60556 Level 3 Est. Patient 14:34:57 CDT Prosper Arenas MD [facility] CPT-57980 Level 3 New Patient 15:44:53 SLIME PLANT OPERATOR HELPER Mekhi Dukes MD [facility] CPT-49806 Level 3 Est. Patient 14:53:34 SLIME PLANT OPERATOR HELPER Prosper Arenas MD [facility] CPT-64877 Level 4 Est. Patient 10:05:41 SLIME PLANT OPERATOR HELPER Moy Bradshawrex [facility]-01824 Level 3 Est. Patient 11:18:32 CDT Moy Garcia [facility] CPT-49215 Level 4 Est. Patient 11:05:10 CDT Moy Garcia [facility]-69073 Level 3 Est. Patient 11:08:27 SLIME PLANT OPERATOR HELPER Moy Garcia [facility] CPT-95561 Level 4 Est. Patient 10:43:59 CDT Prosper Arenas MD [facility]-31086 Level 3 Est. Patient 10:51:19 CDT Moy Garcia [facility] CPT-75137 Level 3 Est. Patient 10:20:31 CDT Moy Garcia [facility] CPT-07294 Level 3 Est. Patient 17:08:45 CDT Moy Garcia [facility] CPT-64701 Level 2 Est. Patient 13:54:36 CDT Augustinajaclyn Mata [facility] CPT-25896 Level 3 Est. Patient 12:00:42 CDT Prosper Arenas MD [facility]-22837 Level 3 Est. Patient 09:57:28 SLIME PLANT OPERATOR HELPER Moy Bradshawrex [facility] CPT-32775 Level 3 Est. Patient 11:41:19 SLIME PLANT OPERATOR HELPER Moy Bradshawrex [facility] CPT-52605 Level 4 Est. Patient 17:07:35 SLIME PLANT OPERATOR HELPER Moy Bradshawrex [facility] CPT-55496 Level 5 Est. Patient 14:33:32 CDT Moy Zisania PARISH [facility] CPT-03978 Level 3 Est. Patient 12:25:35 CDT Prosper Arenas MD [facility] Procedures Code Procedure Name Date Entry Date Standard Description CPT-83797 Chest, 2 views 14:17:20 SLIME PLANT OPERATOR HELPER CPT-40636 Postop F/U Visit 14:44:45 SLIME PLANT OPERATOR HELPER CPT-20476 Postop F/U Visit 17:20:20 SLIME PLANT OPERATOR HELPER CPT-G0439 Subsequent Annual Wellness Exam 08:39:41 SLIME PLANT OPERATOR HELPER CPT-000 Give Appropriate Flu Vaccine 10:13:55 SLIME PLANT OPERATOR HELPER CPT-000 Give Immunizations Due 10:13:55 SLIME PLANT OPERATOR HELPER CPT-80450 HGBA1C - LAB USE ONLY 09:42:47 SLIME PLANT OPERATOR HELPER CPT-92689 TPSA - LAB USE ONLY 09:42:46 SLIME PLANT OPERATOR HELPER CPT-03403 Venipuncture Draw Fee 09:42:46 SLIME PLANT OPERATOR HELPER CPT-17689 Port a cath flush 13:33:18 SLIME PLANT OPERATOR HELPER CPT-56338 First Vx - Ix admin for Medicare patients 10:42:57 SLIME PLANT OPERATOR HELPER CPT-94462 Fluzone Preservative Free Intramuscular Suspension 10:42 :57 SLIME PLANT OPERATOR HELPER CPT-G0438 Initial Annual Wellness Exam 10:13:55 SLIME PLANT OPERATOR HELPER CPT-000 Give Appropriate Flu Vaccine 10:44:04 CDT CPT-000 Give Pneumovax 10:44:03 CDT CPT-16142 Port a cath flush 17:04:43 CDT CPT-61236 Prevnar 13 11:19:17 CDT CPT-41808 Fluzone Quadrivalent preservative free (>=3yrs.) 11:19: 17 CDT CPT-15749 Immunization Each Additional Inj 11:19:17 CDT CPT-77784 Immunization Single Admin 11:19:17 CDT CPT-59384 Port a cath flush 13:28:22 CDT CPT-TCMM Transitional Care Mgmt-Moderate 13:40:15 CDT CPT-G0008 Administration of Influenza Virus Vaccine 13:59:20 CDT CPT-03562 Fluzone High-Dose Intramuscular Suspension 13:59:20 CDT CPT-46483 Venipuncture Draw Fee 09:56:19 CDT CPT-OV Office Visit 15:46:10 CDT
--- OUTSIDE RECORDS SUMMARY | 2017-08-25 22:15 | XMS REPORT | Clinical Summary ---
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 Miller precision lens 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 mellitus without mention of complication, type II or unspecified type, not stated as uncontrolled Hyperlipidemia 272.4 Active Mekhi Dukes MD Other and unspecified hyperlipidemia Hypertension 401.9 Active Mekhi Dkues MD Unspecified essential hypertension FH Colon Cancer [...] type II, uncontrolled 250.02 Active Maliheh Rodrigoglari CFD ENGINEER Diabetes mellitus without mention of complication, [...] with hyperglycemia 250.00 Active 03/21 Maliheh Ziglari CFD ENGINEER Diabetes mellitus without mention of complication, type II or unspecified type, not stated as uncontrolled [facility] use of insulin treatment V58.67 Active Luxiheh Rodrigoglari CFD ENGINEER Long-term (current) use of insulin Diabetes mellitus, type II with hypoglycemia 250.80 Active 07/22 Maliheh Ziglari CFD ENGINEER Diabetes mellitus with other specified manifestations, type II or unspecified type, not stated as uncontrolled 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 Maliheh Ziglari CFD ENGINEER Diabetes mellitus with renal manifestations, type II or unspecified type, not stated as uncontrolled Wellness exam V70.0 Active Dee Palmer APRN Routine general medical examination at a health care facility Fitting and adjustment of vascular catheter V58.81 Active 02/06 Dee Palmer APRN Encounter for fitting and adjustment of vascular catheter Unawareness of hypoglycemia in diabetes mellitus, type II 250.80 Active Maliheh Rodrigoglari CFD ENGINEER Diabetes mellitus with other specified manifestations, [...] specified as recurrent) Gastritis Inactive Maliheh Ziglari CFD ENGINEER Unspecified gastritis and gastroduodenitis, without mention [...] 1-2 every 4-6 hrs prn 02/25 HYDROCODONE-ACETAMINOPHEN 80862121137 Active Marina Messian APRN Active ASPIRIN 81 MG ORAL TABLET 1 tablet by mouth daily ASPIRIN 11784467653 No Longer Active Marina Messina APRN Active SIMVASTATIN 80 MG ORAL TABLET 1/2 tablet daily SIMVASTATIN 65117345215 No Longer Active Mekhi Dukes MD Active OMEPRAZOLE 20 MG ORAL CAPSULE DELAYED RELEASE 1 qd OMEPRAZOLE 22844712883 No Longer Active Mekhi Dukes MD Active METOPROLOL TARTRATE 25 MG ORAL TABLET 1/2 tablet twice a day METOPROLOL TARTRATE 03456704152 No Longer Active Mekhi Dukes MD Active LISINOPRIL 5 MG ORAL TABLET 1 daily LISINOPRIL 99715170331 No Longer Active Mekhi Dukes MD Active NOVOLOG FLEXPEN 100 UNIT/ML SUBCUTANEOUS SOLUTION PEN-INJECTOR Take 8 units with each meal, add 1u/50 for blood sugars above 150. INSULIN ASPART 58200459565 Active Maliheh Ziglari CFD ENGINEER Active GABAPENTIN 300 MG ORAL CAPSULE 1 tab BID GABAPENTIN 94218581706 Active Tami Miller RN Active PREDNISONE 20 MG ORAL TABLET Take 2 daily for 3 days and then 1 daily for 3 days PREDNISONE 33335883426 No Longer Active Maliheh Ziglari CFD ENGINEER Active BENZONATATE 200 MG ORAL CAPSULE Take 1 tablet 3 times a day as needed for cough BENZONATATE 71777054086 No Longer Active Prosper Arenas MD Active HYDROCHLOROTHIAZIDE 25 MG ORAL TABLET 1 tablet by mouth daily HYDROCHLOROTHIAZIDE 96369888458 No Longer Active Prosper Arenas MD Active ACCU-CHEK JOANNA PLUS IN VITRO STRIP check blood sugars 5x a day, before each meal and bedtime and 15 minutes after treating a low blood. sugar GLUCOSE BLOOD 98474560727 Active Maleh Ziglari CFD ENGINEER Active LANTUS SOLOSTAR 100 UNIT/ML SUBCUTANEOUS SOLUTION PEN-INJECTOR Take 40 units at 7-8pm daily INSULIN GLARGINE 37811670283 Active Maliheh Ziglari CFD ENGINEER Active MECLIZINE HCL 25 MG ORAL TABLET 1 daily needed for dizziness 2015 MECLIZINE HCL 51676434067 No Longer Active Maleh Ziglari CFD ENGINEER Active BENZONATATE 200 MG ORAL CAPSULE 1 tab, 2-3 times a day BENZONATATE 69433949433 No Longer Active Maliheh Ziglari CFD ENGINEER Active HALOPERIDOL 0.5 MG ORAL TABLET one tablet three times a day HALOPERIDOL 32344073502 No Longer Active Maliheh Ziglari CFD ENGINEER Active TRAZODONE HCL 50 MG ORAL TABLET three tablets at bed time TRAZODONE HCL 64654887066 No Longer Active Maliheh Ziglari CFD ENGINEER Active REVLIMID 25 MG ORAL CAPSULE one capsule daily for 21 days then off for 7 days LENALIDOMIDE 89702324865 No Longer Active Maliheh Ziglari CFD ENGINEER Active ZITHROMAX Z-EDDIE 250 MG ORAL TABLET 2 today, then 1 daily for 4 days AZITHROMYCIN 40228510696 No Longer Active Augustina Mata RETAIL STOCK CLERK Active NOVOLIN R RELION 100 UNIT/ML INJECTION SOLUTION 30- 40 units each meal sliding scale INSULIN REGULAR HUMAN 35272658131 No Longer Active Moy DURANTP Active CALCIUM 500/D 500-200 MG-UNIT ORAL TABLET one tablet daily CALCIUM CARBONATE-VITAMIN D 74350098479 Active Prosper Arenas MD Active HYDROCODONE-ACETAMINOPHEN 5-500 MG ORAL TABLET 1-2 FOUR TIMES A DAY, PRN 2010 HYDROCODONE-ACETAMINOPHEN 77693838998 No Longer Active Prosper Arenas MD Active DOXYCYCLINE HYCLATE 100 MG ORAL CAPSULE take one capsule by mouth twice daily for ten days DOXYCYCLINE HYCLATE 86514283403 No Longer Active Mekhi Dukes MD Active DOXYCYCLINE HYCLATE 100 MG ORAL CAPSULE take one capsule by mouth twice daily for ten days DOXYCYCLINE HYCLATE 100 MG ORAL CAPSULE 9244052 DOXYCYCLINE HYCLATE Inactive HYDROCODONE-ACETAMINOPHEN 5-500 MG ORAL TABLET 1-2 FOUR TIMES A DAY, PRN 2010 HYDROCODONE-ACETAMINOPHEN 5-500 MG ORAL TABLET 380236 HYDROCODONE-ACETAMINOPHEN Inactive NOVOLIN R RELION 100 UNIT/ML INJECTION SOLUTION 30- 40 units each meal sliding scale NOVOLIN R RELION 100 UNIT/ML INJECTION SOLUTION INSULIN REGULAR HUMAN Inactive ZITHROMAX Z-EDDIE 250 MG ORAL TABLET 2 today, then 1 daily for 4 days ZITHROMAX Z-EDDIE 250 MG ORAL TABLET 601494 AZITHROMYCIN Inactive REVLIMID 25 MG ORAL CAPSULE one capsule daily for 21 days then off for 7 days REVLIMID 25 MG ORAL CAPSULE LENALIDOMIDE Inactive TRAZODONE HCL 50 MG ORAL TABLET three tablets at bed time TRAZODONE HCL 50 MG ORAL TABLET 507546 TRAZODONE HCL Inactive HALOPERIDOL 0.5 MG ORAL TABLET one tablet three times a day HALOPERIDOL 0.5 MG ORAL TABLET 131490 HALOPERIDOL Inactive BENZONATATE 200 MG ORAL CAPSULE 1 tab, 2-3 times a day BENZONATATE 200 MG ORAL CAPSULE 694726 BENZONATATE Inactive MECLIZINE HCL 25 MG ORAL TABLET 1 daily needed for dizziness 2015 MECLIZINE HCL 25 MG ORAL TABLET 510731 MECLIZINE HCL Inactive HYDROCHLOROTHIAZIDE 25 MG ORAL TABLET 1 tablet by mouth daily HYDROCHLOROTHIAZIDE 25 MG ORAL TABLET 705014 HYDROCHLOROTHIAZIDE Inactive PREDNISONE 20 MG ORAL TABLET Take 2 daily for 3 days and then 1 daily for 3 days PREDNISONE 20 MG ORAL TABLET 522987 PREDNISONE Inactive LISINOPRIL 5 MG ORAL TABLET 1 daily LISINOPRIL 5 MG ORAL TABLET 501512 LISINOPRIL Inactive METOPROLOL TARTRATE 25 MG ORAL TABLET 1/2 tablet twice a day METOPROLOL TARTRATE 25 MG ORAL TABLET 659657 METOPROLOL TARTRATE Inactive OMEPRAZOLE 20 MG ORAL CAPSULE DELAYED RELEASE 1 qd OMEPRAZOLE 20 MG ORAL CAPSULE DELAYED RELEASE 834491 OMEPRAZOLE Inactive SIMVASTATIN 80 MG ORAL TABLET 1/2 tablet daily SIMVASTATIN 80 MG ORAL TABLET 922603 SIMVASTATIN Inactive ASPIRIN 81 MG ORAL TABLET 1 tablet by mouth daily ASPIRIN 81 MG ORAL TABLET 686754 ASPIRIN Inactive BENZONATATE 200 MG ORAL CAPSULE Take 1 tablet 3 times a day as needed for cough BENZONATATE 200 MG ORAL CAPSULE 254782 BENZONATATE Inactive Immunizations Vaccine Administration Date Value [...] temperature weight E&M 197 [lb_av] Weight Measured Diagnostic Results Date Name Value Unit Range Description Chart Maintenance: outside lab added to flowsheet - Urinalysis microalbumin/total urine volume 5 mg/L Lab Report: Comp. Metabolic Panel, CBC W/DIFF - Chemistry sodium, serum 137 mmol/L 131-527 4423/08/16 carbon dioxide, venous blood 26.3 mmol/L 21.0-32.0 [...] LABS - Chemistry cholesterol, serum 115 mg/dL 963-000 1224/08/18 triglyceride, serum, fasting 89 mg/dL 30-200 HDL cholesterol, serum 46 mg/dL 32-60 LDL cholesterol, serum 51 mg/dL 0-130 blood glucose 104 mg/dL 65-110 Lab Report: LIPID PANEL- REPOWER LAB - Chemistry cholesterol, serum 156 mg/dL 122-815 1977[birth year]20 HDL cholesterol, serum 52 mg/dL > [...] mg/dL Encounters Code Encounter Date Provider Facility CPT-98223 Level 3 Est. Patient 10:53:32 [facility] Level 3 Est. Patient 17:11:55 SECURITY CONSULTANT Ismael Gracia MD [facility] CPT-02226 Level 4 Est. Patient 16:29:19 CDT Mekhi Dukes MD [facility] CPT-54600 Level 3 New Patient 17:05:24 CDT Ismael Gracia MD [facility] CPT-79551 Level 2 Est. Patient 15:43:17 CDT eMkhi Dukes MD [facility] CPT-69297 Level 3 Est. Patient 09:30:37 [facility] [place] [facility] Level 3 Est. Patient 10:00:14 CDT Mekhi Dukes MD [facility] CPT-53313 Level 3 Est. Patient 12:24:09 [facility] [place] [facility]-95443 Level 3 Est. Patient 14:34:57 CDT Prosper Arenas MD [facility] CPT-04540 Level 3 New Patient 15:44:53 SECURITY CONSULTANT Mekhi Dukes MD [facility]-01848 Level 3 Est. Patient 14:53:34 SECURITY CONSULTANT Prosper Arenas MD [facility] CPT-37324 Level 4 Est. Patient 10:05:41 SECURITY CONSULTANT Moy Jose [facility]-42989 Level 3 Est. Patient 11:18:32 CDT Moy Bradshawari [facility] CPT-40510 Level 4 Est. Patient 11:05:10 CDT Moy Bradshawrex [facility]-81247 Level 3 Est. Patient 11:08:27 SECURITY CONSULTANT Moy Jose [facility] CPT-05517 Level 4 Est. Patient 10:43:59 CDT Prosper Arenas MD [facility] CPT-46509 Level 3 Est. Patient 10:51:19 CDT Moy Jose [facility] CPT-67499 Level 3 Est. Patient 10:20:31 CDT Moy Wallacesania [facility] CPT-80266 Level 3 Est. Patient 17:08:45 CDT Moy Jose [facility] CPT-92466 Level 2 Est. Patient 13:54:36 CDT Augustina Mata APRN [facility] CPT-25065 Level 3 Est. Patient 12:00:42 CDT Prosper Arenas MD [facility]-38345 Level 3 Est. Patient 09:57:28 SECURITY CONSULTANT Luxpapo Garcia [facility] CPT-77756 Level 3 Est. Patient 11:41:19 [facility] Level 4 Est. Patient 17:07:35 [facility]24 Level 5 Est. Patient 14:33:32 CDT Moy Garcia [facility] CPT-74785 Level 3 Est. Patient 12:25:35 CDT Prosper Arenas MD [facility] Procedures Code Procedure Name Date Entry Date Standard Description CPT-18257 Postop F/U Visit 14:44:45 SECURITY CONSULTANT CPT-53052 Postop F/U Visit 17:20:20 SECURITY CONSULTANT CPT-G0439 Subsequent Annual Wellness Exam 08:39:41 SECURITY CONSULTANT CPT-000 Give Appropriate Flu Vaccine 10:13:55 SECURITY CONSULTANT CPT-000 Give Immunizations Due 10:13:55 SECURITY CONSULTANT CPT-23119 HGBA1C - LAB USE ONLY 09:42:47 SECURITY CONSULTANT CPT-29383 TPSA - LAB USE ONLY 09:42:46 SECURITY CONSULTANT CPT-72045 Venipuncture Draw Fee 09:42:46 SECURITY CONSULTANT CPT-27709 Port a cath flush 13:33:18 SECURITY CONSULTANT CPT-00014 First Vx - Ix admin for Medicare patients 10:42:57 SECURITY CONSULTANT CPT-96903 Fluzone Preservative Free Intramuscular Suspension 10:42 :57 SECURITY CONSULTANT CPT-G0438 Initial Annual Wellness Exam 10:13:55 SECURITY CONSULTANT CPT-000 Give Appropriate Flu Vaccine 10:44:04 CDT CPT-000 Give Pneumovax 10:44:03 CDT CPT-07338 Port a cath flush 17:04:43 CDT CPT-62365 Prevnar 13 11:19:17 CDT CPT-77747 Fluzone Quadrivalent preservative free (>=3yrs.) 11:19: 17 CDT CPT-14071 Immunization Each Additional Inj 11:19:17 CDT CPT-19004 Immunization Single Admin 11:19:17 CDT CPT-46187 Port a cath flush 13:28:22 CDT CPT-TCMM Transitional Care Mgmt-Moderate 13:40:15 CDT CPT-G0008 Administration of Influenza Virus Vaccine 13:59:20 CDT CPT-38620 Fluzone High-Dose Intramuscular Suspension 13:59:20 CDT CPT-75923 Venipuncture Draw Fee 09:56:19 CDT CPT-OV Office Visit 15:46:10 CDT
--- OUTSIDE RECORDS SUMMARY | 2017-08-25 22:16 | XMS REPORT | Clinical Summary ---
Author Author Admin, IWONA Organization [employer] Address Unknown Phone Unavailable Allergies, Adverse Reactions, Alerts Allergy Name Reaction Description Start Date Severity Status Provider ERYTHROMYCIN Stomach cramps Moderate Active Prosper Arenas MD CODEINE Critical Active Maliheh Ziglari NEGATIVE DEVELOPER DARVOCET Critical Active Maliheh Ziglari NEGATIVE DEVELOPER LEVAQUIN Critical Active Maliheh Ziglari NEGATIVE DEVELOPER Conditions or Problems Problem Name Problem Code Onset Date Status Entry Date Provider Comment Standard Description Annotate Diabetes, Type 2 250.00 Resolved Tami Miller roll up helper mellitus without mention of complication, type II [...] type II, uncontrolled 250.02 Active Maliheh Rodrigoglari NEGATIVE DEVELOPER Diabetes mellitus without mention of complication, [...] with hyperglycemia 250.00 Active 03/21 Maliheh Ziglari NEGATIVE DEVELOPER Diabetes mellitus without mention of complication, type II or unspecified type, not stated as uncontrolled correction use of insulin treatment V58.67 Active Luxiheh Rodrigoglari NEGATIVE DEVELOPER Long-term (current) use of insulin Diabetes mellitus, type II with hypoglycemia 250.80 Active 07/22 Maliheh Ziglari NEGATIVE DEVELOPER Diabetes mellitus with other specified manifestations, type II or unspecified type, not stated as uncontrolled 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 Maliheh Ziglari NEGATIVE DEVELOPER Diabetes mellitus with renal manifestations, type II or unspecified type, not stated as uncontrolled Wellness exam V70.0 Active Dee Palmer APRN Routine general medical examination at a health care facility Fitting and adjustment of vascular catheter V58.81 Active 02/06 Dee Palmer APRN Encounter for fitting and adjustment of vascular catheter Unawareness of hypoglycemia in diabetes mellitus, type II 250.80 Active Maliheh Ziglari NEGATIVE DEVELOPER Diabetes mellitus with other specified manifestations, [...] adjustment of vascular catheter ICD-V58.81 Inactive Mekhi Dukse MD Cough ICD-786.2 Inactive Mekhi Dukes MD Headache ICD-784.0 Inactive Mekhi Dukes MD Medication List Medication Instructions Start Date Stop Date Generic Name NDC Status Provider Patient Instruction SIMVASTATIN 80 MG ORAL TABLET 1/2 tablet daily SIMVASTATIN 35664182067 No Longer Active Mekhi Dukes MD Active OMEPRAZOLE 20 MG ORAL CAPSULE DELAYED RELEASE 1 qd OMEPRAZOLE 01231780669 No Longer Active Mekhi Dukes MD Active METOPROLOL TARTRATE 25 MG ORAL TABLET 1/2 tablet twice a day METOPROLOL TARTRATE 54275038034 No Longer Active Mekhi Dukes MD Active LISINOPRIL 5 MG ORAL TABLET 1 daily LISINOPRIL 74408933346 No Longer Active Mekhi Dukes MD Active NOVOLOG FLEXPEN 100 UNIT/ML SUBCUTANEOUS SOLUTION PEN-INJECTOR Take 8 units with each meal, add 1u/50 for blood sugars above 150. INSULIN ASPART 10730929374 Active Moy PARISH Active GABAPENTIN 300 MG ORAL CAPSULE 1 tab BID GABAPENTIN 50600863898 Active Tami Miller RN Active PREDNISONE 20 MG ORAL TABLET Take 2 daily for 3 days and then 1 daily for 3 days PREDNISONE 12949810525 No Longer Active Moy PARISH Active BENZONATATE 200 MG ORAL CAPSULE Take 1 tablet 3 times a day as needed for cough BENZONATATE 03107362728 No Longer Active Prosper Arenas MD Active HYDROCHLOROTHIAZIDE 25 MG ORAL TABLET 1 tablet by mouth daily HYDROCHLOROTHIAZIDE 80343930845 No Longer Active Prosper Arenas MD Active ACCU-CHEK JOANNA PLUS IN VITRO STRIP check blood sugars 5x a day, before each meal and bedtime and 15 minutes after treating a low blood. sugar GLUCOSE BLOOD 23898068680 Active Malpapo Wallaceglrex PARISH Active LANTUS SOLOSTAR 100 UNIT/ML SUBCUTANEOUS SOLUTION PEN-INJECTOR Take 40 units at 7-8pm daily INSULIN GLARGINE 87938071779 Active Moy Ziglari NEGATIVE DEVELOPER Active MECLIZINE HCL 25 MG ORAL TABLET 1 daily needed for dizziness 2015 MECLIZINE HCL 29611749673 No Longer Active Maleh Ziglari NEGATIVE DEVELOPER Active BENZONATATE 200 MG ORAL CAPSULE 1 tab, 2-3 times a day BENZONATATE 82728388350 No Longer [facility] NE[facility]IVE DEVELOPER Active HALOPERIDOL 0.5 MG ORAL TABLET one tablet three times a day HALOPERIDOL 93254698034 No Longer [facility] Ziglari NEGATIVE DEVELOPER Active TRAZODONE HCL 50 MG ORAL TABLET three tablets at bed time TRAZODONE HCL 24870961509 No Longer Active [facility] Ziglari NEGATIVE DEVELOPER Active REVLIMID 25 MG ORAL CAPSULE one capsule daily for 21 days then off for 7 days LENALIDOMIDE 19730115985 No Longer Active [facility] Ziglari NEGATIVE DEVELOPER Active ZITHROMAX Z-EDDIE 250 MG ORAL TABLET 2 today, then 1 daily for 4 days AZITHROMYCIN 32522902737 No Longer Active Augustina Adolfo DOHERTY Active NOVOLIN R RELION 100 UNIT/ML INJECTION SOLUTION 30- 40 units each meal sliding scale INSULIN REGULAR HUMAN 88905217569 No Longer Active Moy Rodrigoglari NEGATIVE DEVELOPER Active CALCIUM 500/D 500-200 MG-UNIT ORAL TABLET one tablet daily CALCIUM CARBONATE-VITAMIN D 68460700095 Active Prosper Arenas MD Active HYDROCODONE-ACETAMINOPHEN 5-500 MG ORAL TABLET 1-2 FOUR TIMES A DAY, PRN 2010 HYDROCODONE-ACETAMINOPHEN 77116189846 No Longer Active Prosper Arenas MD Active ASPIRIN 81 MG ORAL TABLET 1 tablet by mouth daily ASPIRIN 09877547985 Active Prosper Arenas MD Active DOXYCYCLINE HYCLATE 100 MG ORAL CAPSULE take one capsule by mouth twice daily for ten days DOXYCYCLINE HYCLATE 28084160790 No Longer Active Mekhi Dukes MD Active DOXYCYCLINE HYCLATE 100 MG ORAL CAPSULE take one capsule by mouth twice daily for ten days DOXYCYCLINE HYCLATE 100 MG ORAL CAPSULE 0518608 DOXYCYCLINE HYCLATE Inactive HYDROCODONE-ACETAMINOPHEN 5-500 MG ORAL TABLET 1-2 FOUR TIMES A DAY, PRN 2010 HYDROCODONE-ACETAMINOPHEN 5-500 MG ORAL TABLET 986121 HYDROCODONE-ACETAMINOPHEN Inactive NOVOLIN R RELION 100 UNIT/ML INJECTION SOLUTION 30- 40 units each meal sliding scale NOVOLIN R RELION 100 UNIT/ML INJECTION SOLUTION INSULIN REGULAR HUMAN Inactive ZITHROMAX Z-EDDIE 250 MG ORAL TABLET 2 today, then 1 daily for 4 days ZITHROMAX Z-EDDIE 250 MG ORAL TABLET 903641 AZITHROMYCIN Inactive REVLIMID 25 MG ORAL CAPSULE one capsule daily for 21 days then off for 7 days REVLIMID 25 MG ORAL CAPSULE LENALIDOMIDE Inactive TRAZODONE HCL 50 MG ORAL TABLET three tablets at bed time TRAZODONE HCL 50 MG ORAL TABLET 860320 TRAZODONE HCL Inactive HALOPERIDOL 0.5 MG ORAL TABLET one tablet three times a day HALOPERIDOL 0.5 MG ORAL TABLET 328387 HALOPERIDOL Inactive BENZONATATE 200 MG ORAL CAPSULE 1 tab, 2-3 times a day BENZONATATE 200 MG ORAL CAPSULE 997571 BENZONATATE Inactive MECLIZINE HCL 25 MG ORAL TABLET 1 daily needed for dizziness 2015 MECLIZINE HCL 25 MG ORAL TABLET 736666 MECLIZINE HCL Inactive HYDROCHLOROTHIAZIDE 25 MG ORAL TABLET 1 tablet by mouth daily HYDROCHLOROTHIAZIDE 25 MG ORAL TABLET 460149 HYDROCHLOROTHIAZIDE Inactive PREDNISONE 20 MG ORAL TABLET Take 2 daily for 3 days and then 1 daily for 3 days PREDNISONE 20 MG ORAL TABLET 589347 PREDNISONE Inactive LISINOPRIL 5 MG ORAL TABLET 1 daily LISINOPRIL 5 MG ORAL TABLET 433767 LISINOPRIL Inactive METOPROLOL TARTRATE 25 MG ORAL TABLET 1/2 tablet twice a day METOPROLOL TARTRATE 25 MG ORAL TABLET 688136 METOPROLOL TARTRATE Inactive OMEPRAZOLE 20 MG ORAL CAPSULE DELAYED RELEASE 1 qd OMEPRAZOLE 20 MG ORAL CAPSULE DELAYED RELEASE 146163 OMEPRAZOLE Inactive SIMVASTATIN 80 MG ORAL TABLET 1/2 tablet daily SIMVASTATIN 80 MG ORAL TABLET 305765 SIMVASTATIN Inactive BENZONATATE 200 MG ORAL CAPSULE Take 1 tablet 3 times a day as needed for cough BENZONATATE 200 MG ORAL CAPSULE 464321 BENZONATATE Inactive Immunizations Vaccine Administration Date Value [...] W/DIFF - Chemistry sodium, serum 137 mmol/L 958-335 2537/08/16 carbon dioxide, venous blood 26.3 mmol/L 21.0-32.0 [...] LABS - Chemistry cholesterol, serum 115 mg/dL 970-609 7101/08/18 triglyceride, serum, fasting 89 mg/dL 30-200 HDL cholesterol, serum 46 mg/dL 32-60 LDL cholesterol, serum 51 mg/dL 0-130 blood glucose 104 mg/dL 65-110 Lab Report: LIPID PANEL- REPOWER LAB - Chemistry cholesterol, serum 156 mg/dL 285-742 0593/02/20 HDL cholesterol, serum 52 mg/dL > OR=40 [...] mg/dL Encounters Code Encounter Date Provider Facility CPT-86422 Level 3 Est. Patient 17:11:55 CONCRETE PIPE MAKING MACHINE OPERATOR Ismael Gracia MD [facility] CPT-53814 Level 4 Est. Patient 16:29:19 CDT Mekhi Dukes MD [facility] CPT-57524 Level 3 New Patient 17:05:24 CDT Ismael Gracia MD [facility] CPT-17519 Level 2 Est. Patient 15:43:17 CDT Mekhi Dukes MD [facility] CPT-69485 Level 3 Est. Patient 09:30:37 CDT Maliheh Ziglari [facility]-84972 Level 3 Est. Patient 10:00:14 CDT Mekhi Dukes MD [facility] CPT-58519 Level 3 Est. Patient 12:24:09 CDT Moy Garcia [facility]-63442 Level 3 Est. Patient 14:34:57 CDT Prosper Arenas MD [facility] CPT-73328 Level 3 New Patient 15:44:53 CONCRETE PIPE MAKING MACHINE OPERATOR Mekhi Dukes MD [facility]-40545 Level 3 Est. Patient 14:53:34 CONCRETE PIPE MAKING MACHINE OPERATOR Prosper Arenas MD [facility] CPT-25300 Level 4 Est. Patient 10:05:41 CONCRETE PIPE MAKING MACHINE OPERATOR Moy Rodrigokymrex [facility]-99001 Level 3 Est. [facility]07950 Level 4 Est. Patient 11:05:10 CDT Moy Garcia [facility][note 3] CPT-64753 Level 3 Est. Patient 11:08:27 CONCRETE PIPE MAKING MACHINE OPERATOR Moy Garcia [facility] CPT-95332 Level 4 Est. Patient 10:43:59 CDT Prosper Arenas MD [facility] CPT-24756 Level 3 Est. Patient 10:51:19 CDT Moy Garcia [facility] CPT-72906 Level 3 Est. Patient 10:20:31 CDT Moy Garcia [facility] CPT-25978 Level 3 Est. Patient 17:08:45 CDT Moy Garcia [facility] CPT-32672 Level 2 Est. Patient 13:54:36 CDT Augustina Mata APRN [facility] CPT-12563 Level 3 Est. Patient 12:00:42 CDT Prosper Arenas MD [facility] CPT-46578 Level 3 Est. Patient 09:57:28 CONCRETE PIPE MAKING MACHINE OPERATOR Moy Garcia [facility] CPT-74204 Level 3 Est. Patient 11:41:19 CONCRETE PIPE MAKING MACHINE OPERATOR Moy Garcia [facility] CPT-55507 Level 4 Est. Patient 17:07:35 CONCRETE PIPE MAKING MACHINE OPERATOR Moy Garcia [facility] CPT-91038 Level 5 Est. Patient 14:33:32 CDT Moy Wallacerex [facility] CPT-72248 Level 3 Est. Patient 12:25:35 CDT Prosper Arenas MD [facility] Procedures Code Procedure Name Date Entry Date Standard Description CPT-G0439 Subsequent Annual Wellness Exam 08:39:41 CONCRETE PIPE MAKING MACHINE OPERATOR CPT-000 Give Appropriate Flu Vaccine 10:13:55 CONCRETE PIPE MAKING MACHINE OPERATOR CPT-000 Give Immunizations Due 10:13:55 CONCRETE PIPE MAKING MACHINE OPERATOR CPT-63826 HGBA1C - LAB USE ONLY 09:42:47 CONCRETE PIPE MAKING MACHINE OPERATOR CPT-13105 TPSA - LAB USE ONLY 09:42:46 CONCRETE PIPE MAKING MACHINE OPERATOR CPT-37243 Venipuncture Draw Fee 09:42:46 CONCRETE PIPE MAKING MACHINE OPERATOR CPT-17446 Port a cath flush 13:33:18 CONCRETE PIPE MAKING MACHINE OPERATOR CPT-41641 First Vx - Ix admin for Medicare patients 10:42:57 CONCRETE PIPE MAKING MACHINE OPERATOR CPT-18825 Fluzone Preservative Free Intramuscular Suspension 10:42 :57 CONCRETE PIPE MAKING MACHINE OPERATOR CPT-G0438 Initial Annual Wellness Exam 10:13:55 CONCRETE PIPE MAKING MACHINE OPERATOR CPT-000 Give Appropriate Flu Vaccine 10:44:04 CDT CPT-000 Give Pneumovax 10:44:03 CDT CPT-34842 Port a cath flush 17:04:43 CDT CPT-06770 Prevnar 13 11:19:17 CDT CPT-30572 Fluzone Quadrivalent preservative free (>=3yrs.) 11:19: 17 CDT CPT-65830 Immunization Each Additional Inj 11:19:17 CDT CPT-36420 Immunization Single Admin 11:19:17 CDT CPT-50348 Port a cath flush 13:28:22 CDT CPT-TCMM Transitional Care Mgmt-Moderate 13:40:15 CDT CPT-G0008 Administration of Influenza Virus Vaccine 13:59:20 CDT CPT-83800 Fluzone High-Dose Intramuscular Suspension 13:59:20 CDT CPT-99491 Venipuncture Draw Fee 09:56:19 CDT CPT-OV Office Visit 15:46:10 CDT
--- OUTSIDE RECORDS SUMMARY | 2017-08-25 22:17 | XMS REPORT | Clinical Summary ---
Author Author Admin, IWONA Organization [facility] Address Unknown Phone Unavailable Allergies, Adverse Reactions, Alerts Allergy Name Reaction Description Start Date Severity Status Provider ERYTHROMYCIN Stomach cramps Moderate Active Prosper Arenas MD CODEINE Critical Active Maliheh Ziglari ASSISTANT FAMILY TEACHER DARVOCET Critical Active Maliheh Ziglari ASSISTANT FAMILY TEACHER LEVAQUIN Critical Active Maliheh Ziglari ASSISTANT FAMILY TEACHER Conditions or Problems Problem Name Problem [...] type II, uncontrolled 250.02 Active Maliheh Ziglari ASSISTANT FAMILY TEACHER Diabetes mellitus without mention of complication, [...] blood sugars 3x a day GLUCOSE BLOOD 26488510642 Active Moy Ziglari ASSISTANT FAMILY TEACHER Active NOVOLOG FLEXPEN 100 UNIT/ML SOPN Take 15 units with each meal, add 2u/50 for blood sugars above 150 INSULIN ASPART 13289387171 Active Moy Ziglari ASSISTANT FAMILY TEACHER Active ZITHROMAX Z-EDDIE 250 MG TABS 2 today, then 1 daily for 4 days 2014 AZITHROMYCIN 78980791399 No Longer Active Augustina Mata APRN Active BENZONATATE 200 MG CAPS 1 tab, 2-3 times a day BENZONATATE 33295148865 Active Prosper Arenas MD Active LANTUS SOLOSTAR 100 UNIT/ML SOLN 30 units at 4-5pm daily INSULIN GLARGINE 40496128520 Active Moy Rodrigoglari ASSISTANT FAMILY TEACHER Active NOVOLIN R RELION 100 UNIT/ML INJ SOLN 30- 40 units each meal sliding scale INSULIN REGULAR HUMAN 99765783491 No Longer Active Moy Rodrigoglrex DURANTP Active LISINOPRIL 5 MG TABS 1 daily LISINOPRIL 63830902398 Active Prosper Arenas MD Active CALCIUM 500/D 500-200 MG-UNIT TABS one tablet daily CALCIUM CARBONATE- VITAMIN D 25035348569 Active Prosper Arenas MD Active REVLIMID 25 MG CAPS one capsule daily for 21 days then off for 7 days LENALIDOMIDE 10361525462 Active Prosper Arenas MD Active HYDROCHLOROTHIAZIDE 25 MG TABS 1 tablet by mouth daily HYDROCHLOROTHIAZIDE 13844870836 Active Prosper Arenas MD Active HYDROCODONE-ACETAMINOPHEN 5-500 MG TABS 1-2 FOUR TIMES A DAY, PRN HYDROCODONE-ACETAMINOPHEN 69482032044 No Longer Active Prosper Arenas MD Active TRAZODONE HCL 50 MG TAB three tablets at bed time TRAZODONE HCL 33114249788 Active Prosper Arenas MD Active SIMVASTATIN 80 MG TABS 1/2 tablet daily SIMVASTATIN 74584189005 Active Prosper Arenas MD Active METOPROLOL TARTRATE 25 MG TABS 1/2 tablet twice a day METOPROLOL TARTRATE 31903911680 Active Prosper Arenas MD Active HALOPERIDOL 0.5 MG TABS one tablet three times a day HALOPERIDOL 66820236247 Active Prosper Arenas MD Active ASPIRIN 81 MG TAB 1 tablet by mouth daily ASPIRIN 76539519210 Active Prosper Arenas MD Active OMEPRAZOLE 20 MG CPDR 1 qd OMEPRAZOLE 06007268935 Active DARCIE Miller Active DOXYCYCLINE HYCLATE 100 MG CAPS take one capsule by mouth twice daily for ten days DOXYCYCLINE HYCLATE 64934652979 No Longer Active Mekhi Dukes MD Active DOXYCYCLINE HYCLATE 100 MG CAPS take one capsule by mouth twice daily for ten days DOXYCYCLINE HYCLATE 100 MG CAPS 624605 DOXYCYCLINE HYCLATE Inactive HYDROCODONE-ACETAMINOPHEN 5-500 MG TABS [...] days 2014 ZITHROMAX Z-EDDIE 250 MG TABS 5464157 AZITHROMYCIN Inactive Immunizations Vaccine Administration Date Value [...] Panel - Chemistry sodium, serum 137 mmol/L 171-160 0027/08/22 potassium, serum 4.0 mmol/L 3.5-5.2 chloride, serum 100 mmol/L 98-107 carbon dioxide, venous blood 27.9 mmol/L 21.0-32.0 blood glucose 109 mg/dL 65-110 calcium, serum 9.0 mg/dL 8.5-10.1 urea nitrogen, blood 15 mg/dL 7-18 creatinine, serum 2.00 mg/dL 0.60-1.30 Lab Report: Basic Metabolic Panel, HGBA1C - Chemistry sodium, serum 134 mmol/L 366-013 0141/01/27 potassium, serum 4.1 mmol/L 3.5-5.2 chloride, serum 96 mmol/L 98-107 carbon dioxide, venous blood 35.1 mmol/L 21.0-32.0 blood glucose 346 mg/dL 65-110 calcium, serum 8.4 mg/dL 8.5-10.1 urea nitrogen, blood 18 mg/dL 7-18 creatinine, serum 2.00 mg/dL 0.60-1.30 hemoglobin A1C, blood, as % of total hemoglobin 8.4 % 4.3-6.0 Lab Report: CBC W/DIFF, Comp. Metabolic Panel - Chemistry sodium, serum 137 mmol/L 817-533 7477/01/21 potassium, serum 4.1 mmol/L 3.5-5.2 chloride, serum 99 mmol/L 98-107 carbon dioxide, venous blood 30.9 mmol/L 21.0-32.0 blood glucose 303 mg/dL 65-110 urea nitrogen, blood 19 mg/dL 7-18 creatinine, serum 2.00 mg/dL 0.60-1.30 alanine aminotransferase (SGPT), serum 84 U/L -78 aspartate aminotransferase (SGOT), serum 41 U/L 15-37 calcium, serum 7.8 mg/dL 8.5-10.1 bilirubin, serum, total 0.50 mg/dL 0.00-1.00 sodium, serum 131 mmol/L 350-239 9575/03/18 potassium, serum 4.4 mmol/L 3.5-5.2 chloride, serum 95 mmol/L 98-107 carbon dioxide, venous blood 19.0 mmol/L 21.0-32.0 blood glucose 297 mg/dL 65-110 urea nitrogen, blood 19 mg/dL 7-18 creatinine, serum 1.70 mg/dL 0.60-1.30 alanine aminotransferase (SGPT), serum 184 U/L 12-78 aspartate aminotransferase (SGOT), serum 177 U/L 15-37 calcium, serum 7.8 mg/dL 8.5-10.1 bilirubin, serum, total 0.50 mg/dL 0.00-1.00 sodium, serum 135 mmol/L 652-599 4745/11/26 potassium, serum 4.4 mmol/L 3.5-5.2 chloride, serum [...] % 11.6-14.8 platelet count 172 10^3/MM^3 10*3/mm3 848-376 3829/01/21 leukocyte count, blood 6.3 10^3/MM^3 10*3/mm3 4.6-10.2 [...] % 11.6-14.8 platelet count 137 10^3/MM^3 10*3/mm3 432-454 2311/03/18 leukocyte count, blood 4.8 10^3/MM^3 10*3/mm3 4.6-10.2 [...] Ag - Chemistry sodium, serum 131 mmol/L 214-766 0795/10/13 potassium, serum 3.6 mmol/L 3.5-5.2 chloride, serum [...] 0.60 mg/dL 0.00-1.00 cholesterol, serum 98 mg/dL 272-040 2364/10/13 triglyceride, serum, fasting 125 mg/dL 30-200 HDL [...] mg/dL Encounters Code Encounter Date Provider Facility CPT-18998 Level 3 Est. Patient 17:08:45 CDT [facility] CPT-52769 Level 2 Est. Patient 13:54:36 CDT Augustina Mata APRN [facility] CPT-23759 Level 3 Est. Patient 12:00:42 CDT Prosper Arenas MD [facility] CPT-57354 Level 3 Est. Patient 09:57:28 AIRCRAFT ORDNANCE TECHNICIAN [facility] CPT-60294 Level 3 Est. Patient 11:41:19 AIRCRAFT ORDNANCE TECHNICIAN [facility] CPT-30146 Level 4 Est. Patient 17:07:35 AIRCRAFT ORDNANCE TECHNICIAN [facility] CPT-31758 Level 5 Est. Patient 14:33:32 CDT [facility] CPT-59339 Level 3 Est. Patient 12:25:35 CDT Prosper Arenas MD [facility] Procedures Code Procedure Name Date Entry Date Standard Description CPT-TCMM Transitional Care Mgmt-Moderate 13:40:15 CDT CPT-G0008 Administration of Influenza Virus Vaccine 13:59:20 CDT CPT-10894 Fluzone High-Dose Intramuscular Suspension 13:59:20 CDT CPT-19623 Venipuncture Draw Fee 09:56:19 CDT CPT-OV Office Visit 15:46:10 CDT
--- OUTSIDE RECORDS SUMMARY | 2017-08-25 22:17 | XMS REPORT | Clinical Summary ---
Author Author Admin, [place] Organization [facility] Address Unknown Phone Unavailable Allergies, Adverse Reactions, Alerts Allergy Name Reaction Description Start Date Severity Status Provider ERYTHROMYCIN Stomach cramps Moderate Active Prosper Arenas MD CODEINE Critical Active Maliheh Ziglari PASTORAL WORKER DARVOCET Critical Active Maliheh Ziglari PASTORAL WORKER LEVAQUIN Critical Active Maliheh Ziglari PASTORAL WORKER Conditions or Problems Problem Name Problem [...] type II, uncontrolled 250.02 Active Maliheh Ziglari PASTORAL WORKER Diabetes mellitus without mention of complication, [...] then off for 7 days 2014 LENALIDOMIDE 50396374716 No Longer Active Maliheh Ziglari PASTORAL WORKER Active ACCU-CHEK JOANNA PLUS STRP check blood sugars 3x a day GLUCOSE BLOOD 03195751485 Active Maliheh Ziglari PASTORAL WORKER Active NOVOLOG FLEXPEN 100 UNIT/ML SOPN Take 15 units with each meal, add 2u/50 for blood sugars above 150 INSULIN ASPART 36510217837 Active Maliheh Ziglari PASTORAL WORKER Active ZITHROMAX Z-EDDIE 250 MG TABS 2 today, then 1 daily for 4 days 2014 AZITHROMYCIN 80882993360 No Longer Active Augustina Rangelann DOHERTY Active BENZONATATE 200 MG CAPS 1 tab, 2-3 times a day BENZONATATE 54788388206 Active Prosper Arenas MD Active LANTUS SOLOSTAR 100 UNIT/ML SOLN 30 units at 4-5pm daily INSULIN GLARGINE 31658006428 Active Maliheh Ziglari PASTORAL WORKER Active NOVOLIN R RELION 100 UNIT/ML INJ SOLN 30- 40 units each meal sliding scale INSULIN REGULAR HUMAN 06112414799 No Longer Active Maliheh Ziglari PASTORAL WORKER Active LISINOPRIL 5 MG TABS 1 daily LISINOPRIL 30503267759 Active Prosper Arenas MD Active CALCIUM 500/D 500-200 MG-UNIT TABS one tablet daily CALCIUM CARBONATE- VITAMIN D 72938927306 Active Prosper Arenas MD Active HYDROCHLOROTHIAZIDE 25 MG TABS 1 tablet by mouth daily HYDROCHLOROTHIAZIDE 77200686151 Active Prosper Arenas MD Active HYDROCODONE-ACETAMINOPHEN 5-500 MG TABS 1-2 FOUR TIMES A DAY, PRN HYDROCODONE-ACETAMINOPHEN 04126443588 No Longer Active Prosper Arenas MD Active TRAZODONE HCL 50 MG TAB three tablets at bed time TRAZODONE HCL 57404859883 Active Prosper Arenas MD Active SIMVASTATIN 80 MG TABS 1/2 tablet daily SIMVASTATIN 97670285839 Active Prosper Arenas MD Active METOPROLOL TARTRATE 25 MG TABS 1/2 tablet twice a day METOPROLOL TARTRATE 68252102087 Active Prosper Arenas MD Active HALOPERIDOL 0.5 MG TABS one tablet three times a day HALOPERIDOL 80900783821 Active Prosper Arenas MD Active ASPIRIN 81 MG TAB 1 tablet by mouth daily ASPIRIN 49172277993 Active Prosper Arenas MD Active OMEPRAZOLE 20 MG CPDR 1 qd OMEPRAZOLE 62493272989 Active DARCIE Miller Active DOXYCYCLINE HYCLATE 100 MG CAPS take one capsule by mouth twice daily for ten days DOXYCYCLINE HYCLATE 44200780955 No Longer Active Mekhi Dukes MD Active DOXYCYCLINE HYCLATE 100 MG CAPS take one capsule by mouth twice daily for ten days DOXYCYCLINE HYCLATE 100 MG CAPS 454695 DOXYCYCLINE HYCLATE Inactive HYDROCODONE-ACETAMINOPHEN 5-500 MG TABS [...] days 2014 ZITHROMAX Z-EDDIE 250 MG TABS 4625129 AZITHROMYCIN Inactive REVLIMID 25 MG CAPS one [...] Description Chart Maintenance: Outside labs entered on [employer] - Chemistry sodium, serum 134 mmol/L potassium, [...] U/L Chart Maintenance: Outside labs entered on [employer] - Hematology leukocyte count, blood 5.1 10*3/mm3 hemoglobin, blood 14.7 g/dL platelet count 190 10*3/mm3 leukocyte count, blood 5.3 10*3/mm3 hemoglobin, blood 14.0 g/dL platelet count 240 10*3/mm3 Lab Report: Basic Metabolic Panel - Chemistry sodium, serum 137 mmol/L 934-552 3641/08/22 potassium, serum 4.0 mmol/L 3.5-5.2 chloride, serum 100 mmol/L 98-107 carbon dioxide, venous blood 27.9 mmol/L 21.0-32.0 blood glucose 109 mg/dL 65-110 calcium, serum 9.0 mg/dL 8.5-10.1 urea nitrogen, blood 15 mg/dL 7-18 creatinine, serum 2.00 mg/dL 0.60-1.30 Lab Report: Basic Metabolic Panel, HGBA1C - Chemistry sodium, serum 134 mmol/L 395-143 2886/01/27 potassium, serum 4.1 mmol/L 3.5-5.2 chloride, serum 96 mmol/L 98-107 carbon dioxide, venous blood 35.1 mmol/L 21.0-32.0 blood glucose 346 mg/dL 65-110 calcium, serum 8.4 mg/dL 8.5-10.1 urea nitrogen, blood 18 mg/dL 7-18 creatinine, serum 2.00 mg/dL 0.60-1.30 hemoglobin A1C, blood, as % of total hemoglobin 8.4 % 4.3-6.0 Lab Report: CBC W/DIFF, Comp. Metabolic Panel - Chemistry sodium, serum 137 mmol/L 073-374 3182/01/21 potassium, serum 4.1 mmol/L 3.5-5.2 chloride, serum 99 mmol/L 98-107 carbon dioxide, venous blood 30.9 mmol/L 21.0-32.0 blood glucose 303 mg/dL 65-110 urea nitrogen, blood 19 mg/dL 7-18 creatinine, serum 2.00 mg/dL 0.60-1.30 alanine aminotransferase (SGPT), serum 84 U/L 12-78 aspartate aminotransferase (SGOT), serum 41 U/L 15-37 calcium, serum 7.8 mg/dL 8.5-10.1 bilirubin, serum, total 0.50 mg/dL 0.00-1.00 sodium, serum 131 mmol/L 387-806 6943/03/18 potassium, serum 4.4 mmol/L 3.5-5.2 chloride, serum 95 mmol/L 98-107 carbon dioxide, venous blood 19.0 mmol/L 21.0-32.0 blood glucose 297 mg/dL 65-110 urea nitrogen, blood 19 mg/dL 7-18 creatinine, serum 1.70 mg/dL 0.60-1.30 alanine aminotransferase (SGPT), serum 184 U/L 12-78 aspartate aminotransferase (SGOT), serum 177 U/L 15-37 calcium, serum 7.8 mg/dL 8.5-10.1 bilirubin, serum, total 0.50 mg/dL 0.00-1.00 sodium, serum 135 mmol/L 590-408 2675/11/26 potassium, serum 4.4 mmol/L 3.5-5.2 chloride, serum [...] % 11.6-14.8 platelet count 172 10^3/MM^3 10*3/mm3 022-874 8019/01/21 leukocyte count, blood 6.3 10^3/MM^3 10*3/mm3 4.6-10.2 [...] % 11.6-14.8 platelet count 137 10^3/MM^3 10*3/mm3 890-572 7349/03/18 leukocyte count, blood 4.8 10^3/MM^3 10*3/mm3 4.6-10.2 [...] Ag - Chemistry sodium, serum 131 mmol/L 819-310 4940/10/13 potassium, serum 3.6 mmol/L 3.5-5.2 chloride, serum [...] 0.60 mg/dL 0.00-1.00 cholesterol, serum 98 mg/dL 748-312 1058/10/13 triglyceride, serum, fasting 125 mg/dL 30-200 HDL [...] mg/dL Encounters Code Encounter Date Provider Facility CPT-52794 Level 3 Est. Patient 10:20:31 [place] [facility] [place] Level 3 Est. Patient 17:08:45 [place] [facility] [place]355 Level 2 Est. Patient 13:54:36 CDT Augustina Mata APRN [facility] CPT-50798 Level 3 Est. Patient 12:00:42 CDT Prosper Arenas MD [facility] CPT-41210 Level 3 Est. Patient 09:57:28 SUBSTANCE ABUSE [place] [facility] [place]-23476 Level 3 Est. Patient 11:41:19 SUBSTANCE [place] [facility] [place]-21371 Level 4 Est. Patient 17:07:35 SUBSTANCE [place] [facility] [place]-25346 Level 5 Est. [facility]33:[facility]92268 Level 3 Est. Patient 12:25:35 CDT Prosper Arenas MD [facility] Procedures Code Procedure Name Date Entry Date Standard Description CPT-TCMM Transitional Care Mgmt-Moderate 13:40:15 CDT CPT-G0008 Administration of Influenza Virus Vaccine 13:59:20 CDT CPT-73078 Fluzone High-Dose Intramuscular Suspension 13:59:20 CDT CPT-26883 Venipuncture Draw Fee 09:56:19 CDT CPT-OV Office Visit 15:46:10 CDT
--- OUTSIDE RECORDS SUMMARY | 2017-08-25 22:18 | XMS REPORT | Clinical Summary ---
Author Author Admin, [place] Organization [employer] Address Unknown Phone Unavailable Allergies, Adverse Reactions, Alerts Allergy Name Reaction Description Start Date Severity Status Provider ERYTHROMYCIN Stomach cramps Moderate Active Prosper Arenas MD CODEINE Critical Active Maliheh Ziglari ASBESTOS SHINGLE INSPECTOR DARVOCET Critical Active Maliheh Ziglari ASBESTOS SHINGLE INSPECTOR LEVAQUIN Critical Active Maliheh Ziglari ASBESTOS SHINGLE INSPECTOR Conditions or Problems Problem Name Problem Code Onset Date Status Entry Date Provider Comment Standard Description Annotate Diabetes, Type 2 250.00 Resolved Tami Miller trials manager mellitus without mention of complication, type II or unspecified type, not stated as uncontrolled Hyperlipidemia 272.4 Active Mekhi Dukes MD Other and unspecified hyperlipidemia Hypertension 401.9 Active Mekhi Dukes MD Unspecified essential hypertension FH Colon Cancer V16.0 Active Mekhi Dueks MD Family history of malignant neoplasm of gastrointestinal tract FH Diabetes V18.0 Active Mekhi Dukes MD Family history of diabetes mellitus Abdominal pain, right upper quadrant 789.01 Resolved Mekhi Dukes MD Abdominal pain, right upper quadrant Syncope and collapse 780.2 Resolved Mekhi Dukes MD Syncope and collapse Hypokalemia 276.8 Resolved Tami Miller RN Hypopotassemia Diabetes mellitus, type II, uncontrolled 250.02 Active Maliheh Rodrigoglari ASBESTOS SHINGLE INSPECTOR Diabetes mellitus without mention of complication, [...] with hyperglycemia 250.00 Active 03/21 Maliheh Ziglari ASBESTOS SHINGLE INSPECTOR Diabetes mellitus without mention of complication, type II or unspecified type, not stated as uncontrolled [facility] use of insulin treatment V58.67 Active Luxiheh Rodrigoglari ASBESTOS SHINGLE INSPECTOR Long-term (current) use of insulin Diabetes mellitus, type II with hypoglycemia 250.80 Active 07/22 Maliheh Ziglari ASBESTOS SHINGLE INSPECTOR Diabetes mellitus with other specified manifestations, type II or unspecified type, not stated as uncontrolled 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 Maliheh Ziglari ASBESTOS SHINGLE INSPECTOR Diabetes mellitus with renal manifestations, type II or unspecified type, not stated as uncontrolled Wellness exam V70.0 Active Dee Palmer APRN Routine general medical examination at a health care facility Fitting and adjustment of vascular catheter V58.81 Active 02/06 Dee Palmer APRN Encounter for fitting and adjustment of vascular catheter Unawareness of hypoglycemia in diabetes mellitus, type II 250.80 Active Maliheh Ziglari ASBESTOS SHINGLE INSPECTOR Diabetes mellitus with other specified manifestations, [...] MG ORAL CAPS 1 tab BID GABAPENTIN 79181564483 Active Tami Miller RN Active PREDNISONE 20 MG TABS Take 2 daily for 3 days and then 1 daily for 3 days PREDNISONE 12595195447 No Longer Active Moy PARISH Active BENZONATATE 200 MG CAPS Take 1 tablet 3 times a day as needed for cough 07/29 BENZONATATE 57332655870 No Longer Active Prosper Arenas MD Active HYDROCHLOROTHIAZIDE 25 MG TABS 1 tablet by mouth daily HYDROCHLOROTHIAZIDE 14162824377 No Longer Active Prosper Arenas MD Active ACCU-CHEK JOANNA PLUS STRP check blood sugars 5x a day, before each meal and bedtime and 15 minutes after treating a low blood. sugar GLUCOSE BLOOD 55860969155 Active Maliheh Ziglari ASBESTOS SHINGLE INSPECTOR Active NOVOLOG FLEXPEN 100 UNIT/ML SOPN Take 25 units with each meal, add 1u/50 for blood sugars above 150. INSULIN ASPART 04006400558 Active Maliheh Ziglari ASBESTOS SHINGLE INSPECTOR Active LANTUS SOLOSTAR 100 UNIT/ML SOLN Take 40 units at 7-8pm daily INSULIN GLARGINE 35217802546 Active Maliheh Ziglari ASBESTOS SHINGLE INSPECTOR Active MECLIZINE HCL 25 MG TABS 1 daily needed for dizziness MECLIZINE HCL 53915515825 No Longer Active Maliheh Ziglari ASBESTOS SHINGLE INSPECTOR Active BENZONATATE 200 MG CAPS 1 tab, 2-3 times a day BENZONATATE 52326790760 No Longer Active Maliheh Ziglari ASBESTOS SHINGLE INSPECTOR Active HALOPERIDOL 0.5 MG TABS one tablet three times a day HALOPERIDOL 62844313243 No Longer Active Maliheh Ziglari ASBESTOS SHINGLE INSPECTOR Active TRAZODONE HCL 50 MG TAB three tablets at bed time TRAZODONE HCL 90495867163 No Longer Active Maliheh Ziglari ASBESTOS SHINGLE INSPECTOR Active REVLIMID 25 MG CAPS one capsule daily for 21 days then off for 7 days 2014 LENALIDOMIDE 89814601077 No Longer Active Maliheh Ziglari ASBESTOS SHINGLE INSPECTOR Active ZITHROMAX Z-EDDIE 250 MG TABS 2 today, then 1 daily for 4 days 2014 AZITHROMYCIN 63346333555 No Longer Active Augustina Yotalaum NEURODIAGNOSTIC TECHNOLOGIST Active NOVOLIN R RELION 100 UNIT/ML INJ SOLN 30- 40 units each meal sliding scale INSULIN REGULAR HUMAN 77286100326 No Longer Active Moy PARISH Active LISINOPRIL 5 MG TABS 1 daily LISINOPRIL 41947625512 Active Prosper Arenas MD Active CALCIUM 500/D 500-200 MG-UNIT TABS one tablet daily CALCIUM CARBONATE- VITAMIN D 38692466069 Active Prosper Arenas MD Active HYDROCODONE-ACETAMINOPHEN 5-500 MG TABS 1-2 FOUR TIMES A DAY, PRN HYDROCODONE-ACETAMINOPHEN 86706221681 No Longer Active Prosper Arenas MD Active SIMVASTATIN 80 MG TABS 1/2 tablet daily SIMVASTATIN 28239768318 Active Prosper Arenas MD Active METOPROLOL TARTRATE 25 MG TABS 1/2 tablet twice a day METOPROLOL TARTRATE 48517574568 Active Prosper Arenas MD Active ASPIRIN 81 MG TAB 1 tablet by mouth daily ASPIRIN 94649548661 Active Prosper Arenas MD Active OMEPRAZOLE 20 MG CPDR 1 qd OMEPRAZOLE 91850617033 Active DARCIE Miller Active DOXYCYCLINE HYCLATE 100 MG CAPS take one capsule by mouth twice daily for ten days DOXYCYCLINE HYCLATE 71199290090 No Longer Active Mekhi Dukes MD Active DOXYCYCLINE HYCLATE 100 MG CAPS take one capsule by mouth twice daily for ten days DOXYCYCLINE HYCLATE 100 MG CAPS 8560888 DOXYCYCLINE HYCLATE Inactive HALOPERIDOL 0.5 MG TABS one tablet three times a day HALOPERIDOL 0.5 MG TABS 638287 HALOPERIDOL Inactive HYDROCHLOROTHIAZIDE 25 MG TABS 1 tablet by mouth daily HYDROCHLOROTHIAZIDE 25 MG TABS 525300 HYDROCHLOROTHIAZIDE Inactive PREDNISONE 20 MG TABS Take 2 daily for 3 days and then 1 daily for 3 days PREDNISONE 20 MG TABS 387030 PREDNISONE Inactive TRAZODONE HCL 50 MG TAB three tablets at bed time TRAZODONE HCL 50 MG TAB 161812 TRAZODONE HCL Inactive MECLIZINE HCL 25 MG TABS 1 daily needed for dizziness MECLIZINE HCL 25 MG TABS 971471 MECLIZINE HCL Inactive HYDROCODONE-ACETAMINOPHEN 5-500 MG TABS 1-2 FOUR TIMES A DAY, PRN HYDROCODONE-ACETAMINOPHEN 5-500 MG TABS HYDROCODONE- ACETAMINOPHEN Inactive BENZONATATE 200 MG CAPS 1 tab, 2-3 times a day BENZONATATE 200 MG CAPS 556376 BENZONATATE Inactive BENZONATATE 200 MG CAPS Take 1 tablet 3 times a day as needed for cough 07/29 BENZONATATE 200 MG CAPS 946563 BENZONATATE Inactive ZITHROMAX Z-EDDIE 250 MG TABS 2 today, then 1 daily for 4 days 2014 ZITHROMAX Z-EDDIE 250 MG TABS 6024675 AZITHROMYCIN Inactive REVLIMID 25 MG CAPS one [...] W/DIFF - Chemistry sodium, serum 137 mmol/L 463-113 2618/08/16 carbon dioxide, venous blood 26.3 mmol/L 21.0-32.0 [...] Glucose - Chemistry cholesterol, serum 115 mg/dL 132-820 2088/08/18 triglyceride, serum, fasting 89 mg/dL 30-200 HDL cholesterol, serum 46 mg/dL 32-60 LDL cholesterol, serum 51 mg/dL 0-130 blood glucose 104 mg/dL 65-110 Lab Report: LIPID PANEL- REPOWER LAB - Chemistry cholesterol, serum 156 mg/dL 926-201 6015/02/20 HDL cholesterol, serum 52 mg/dL > OR=40 [...] mg/dL Encounters Code Encounter Date Provider Facility CPT-51311 Level 3 Est. Patient 10:00:14 CDT Mekhi Dukes MD [facility] CPT-71010 Level 3 Est. Patient 12:24:09 CDT Moy Garcia [facility] [place]-53988 Level 3 Est. Patient 14:34:57 CDT Prosper Arenas MD [facility] CPT-27851 Level 3 New Patient 15:44:53 STOCK CONTROLLER Mekhi Dukes MD [facility]-32286 Level 3 Est. Patient 14:53:34 STOCK CONTROLLER Prosper Arenas MD [facility] CPT-83248 Level 4 Est. Patient 10:05:41 STOCK CONTROLLER Moy Garcia [facility]-99437 Level 3 Est. Patient 11:18:32 [facility] Est[facility]69774 Level 3 Est. Patient 11:08:27 STOCK CONTROLLER Moy Garcia [facility] CPT-33404 Level 4 Est. Patient 10:43:59 CDT Prosper Arenas MD [facility] CPT-33241 Level 3 Est. Patient 10:51:19 CDT Moy Garcia [facility] CPT-92947 Level 3 Est. Patient 10:20:31 CDT Moy Garcia [facility] CPT-33056 Level 3 Est. Patient 17:08:45 CDT Moy Garcia [facility] CPT-63311 Level 2 Est. Patient 13:54:36 CDT Augustina Mata APRN [facility] CPT-60965 Level 3 Est. Patient 12:00:42 CDT Prosper Arenas MD [facility]-45484 Level 3 Est. Patient 09:57:28 STOCK CONTROLLER [facility] CPT-33837 Level 3 Est. Patient 11:41:19 STOCK CONTROLLER [facility] CPT-01489 Level 4 Est. Patient 17:07:35 STOCK CONTROLLER [facility] CPT-03868 Level 5 Est. Patient 14:33:32 [facility] Level 3 Est. Patient 12:25:35 CDT Prosper Arenas MD [facility] Procedures Code Procedure Name Date Entry Date Standard Description CPT-000 Give Appropriate Flu Vaccine 10:13:55 STOCK CONTROLLER CPT-000 Give Immunizations Due 10:13:55 STOCK CONTROLLER CPT-73071 HGBA1C - LAB USE ONLY 09:42:47 STOCK CONTROLLER CPT-45603 TPSA - LAB USE ONLY 09:42:46 STOCK CONTROLLER CPT-38253 Venipuncture Draw Fee 09:42:46 STOCK CONTROLLER CPT-37888 Port a cath flush 13:33:18 STOCK CONTROLLER CPT-11762 First Vx - Ix admin for Medicare patients 10:42:57 STOCK CONTROLLER CPT-36432 Fluzone Preservative Free Intramuscular Suspension 10:42 :57 STOCK CONTROLLER CPT-G0438 Initial Annual Wellness Exam 10:13:55 STOCK CONTROLLER CPT-000 Give Appropriate Flu Vaccine 10:44:04 CDT CPT-000 Give Pneumovax 10:44:03 CDT CPT-84664 Port a cath flush 17:04:43 CDT CPT-97470 Prevnar 13 11:19:17 CDT CPT-31059 Fluzone Quadrivalent preservative free (>=3yrs.) 11:19: 17 CDT CPT-51309 Immunization Each Additional Inj 11:19:17 CDT CPT-20707 Immunization Single Admin 11:19:17 CDT CPT-97774 Port a cath flush 13:28:22 CDT CPT-TCMM Transitional Care Mgmt-Moderate 13:40:15 CDT CPT-G0008 Administration of Influenza Virus Vaccine 13:59:20 CDT CPT-01628 Fluzone High-Dose Intramuscular Suspension 13:59:20 CDT CPT-42770 Venipuncture Draw Fee 09:56:19 CDT CPT-OV Office Visit 15:46:10 CDT
--- OUTSIDE RECORDS SUMMARY | 2017-08-25 22:19 | XMS REPORT | Clinical Summary ---
Author Author Admin, IWONA Organization [facility] Address Unknown Phone Unavailable Allergies, Adverse Reactions, Alerts Allergy Name Reaction Description Start Date Severity Status Provider ERYTHROMYCIN Stomach cramps Moderate Active Prosper Arenas MD CODEINE Critical Active Maliheh Ziglari MEDICAL CODER DARVOCET Critical Active Maliheh Ziglari MEDICAL CODER LEVAQUIN Critical Active Maliheh Ziglari MEDICAL CODER Conditions or Problems Problem Name Problem Code Onset Date Status Entry Date Provider Comment Standard Description Annotate Diabetes, Type 2 250.00 Resolved 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 Miller senior teradata developer mellitus without mention of complication, type II [...] type II, uncontrolled 250.02 Active Maliheh Ziglari MEDICAL CODER Diabetes mellitus without mention of complication, type [...] with hyperglycemia 250.00 Active 03/21 Maliheh Ziglari MEDICAL CODER Diabetes mellitus without mention of complication, type II or unspecified type, not stated as uncontrolled MCC use of insulin treatment V58.67 Active Luxiheh Rodrigoglari MEDICAL CODER Long-term (current) use of insulin Diabetes mellitus, type II with hypoglycemia 250.80 Active 07/22 Maliheh Ziglari MEDICAL CODER Diabetes mellitus with other specified manifestations, type II or unspecified type, not stated as uncontrolled 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 Maliheh Ziglari MEDICAL CODER Diabetes mellitus with renal manifestations, type II or unspecified type, not stated as uncontrolled Wellness exam V70.0 Active Dee Palmer APRN Routine general medical examination at a health care facility Fitting and adjustment of vascular catheter V58.81 Active 02/06 Dee Palmer APRN Encounter for fitting and adjustment of vascular catheter Unawareness of hypoglycemia in diabetes mellitus, type II 250.80 Active Maliheh Rodrigoglari MEDICAL CODER Diabetes mellitus with other specified manifestations, type [...] specified as recurrent) Gastritis Inactive Maliheh Ziglari MEDICAL CODER Unspecified gastritis and gastroduodenitis, without mention of [...] po qd x 4 days 05/07 AZITHROMYCIN 38150827781 No Longer Active Dee Palmer APRN Active GUAIFENESIN DM 400-20 MG ORAL TABLET 1 pill by mouth twice daily, if needed for cough DEXTROMETHORPHAN-GUAIFENESIN 00610111676 Active Dee Palmer APRN Active PREDNISONE 20 MG ORAL TABLET 2 tabs daily for 4 days, 1 tab daily for 4 days, 1/2 tab daily for 4 days PREDNISONE 41170210010 Active Dee Palmer APRN Active ASPIRIN 81 MG ORAL TABLET 1 po qd ASPIRIN 22876020799 Active Dee Palmer APRN Active CALCIUM 500/D 500-200 MG-UNIT ORAL TABLET one tablet daily CALCIUM CARBONATE-VITAMIN D 78297749503 No Longer Active Trinhvito Barkleyngoc IRON WORKER APPRENTICE Active HYDROCODONE-ACETAMINOPHEN 7.5-325 MG ORAL TABLET 1-2 every 4-6 hrs prn 02/25 HYDROCODONE-ACETAMINOPHEN 42959506357 Active Marina Messina IRON WORKER APPRENTICE Active ASPIRIN 81 MG ORAL TABLET 1 tablet by mouth daily ASPIRIN 99092435674 No Longer Active Marina Messina IRON WORKER APPRENTICE Active SIMVASTATIN 80 MG ORAL TABLET 1/2 tablet daily SIMVASTATIN 92953291892 No Longer Active Mekhi Dukes MD Active OMEPRAZOLE 20 MG ORAL CAPSULE DELAYED RELEASE 1 qd OMEPRAZOLE 19650449473 No Longer Active Mekhi Dukes MD Active METOPROLOL TARTRATE 25 MG ORAL TABLET 1/2 tablet twice a day METOPROLOL TARTRATE 13018686415 No Longer Active Mekhi Dukes MD Active LISINOPRIL 5 MG ORAL TABLET 1 daily LISINOPRIL 34421638220 No Longer Active Mekhi Dukes MD Active NOVOLOG FLEXPEN 100 UNIT/ML SUBCUTANEOUS SOLUTION PEN-INJECTOR Take 8 units with each meal, add 1u/50 for blood sugars above 150. INSULIN ASPART 77450742896 Active Moy PARISH Active GABAPENTIN 300 MG ORAL CAPSULE 1 tab BID GABAPENTIN 23104157911 Active Tami Miller RN Active PREDNISONE 20 MG ORAL TABLET Take 2 daily for 3 days and then 1 daily for 3 days PREDNISONE 40778056512 No Longer Active Moy PARISH Active BENZONATATE 200 MG ORAL CAPSULE Take 1 tablet 3 times a day as needed for cough BENZONATATE 94882293858 No Longer Active Prosper Arenas MD Active HYDROCHLOROTHIAZIDE 25 MG ORAL TABLET 1 tablet by mouth daily HYDROCHLOROTHIAZIDE 04120346656 No Longer Active Prosper Arenas MD Active ACCU-CHEK JOANNA PLUS IN VITRO STRIP check blood sugars 5x a day, before each meal and bedtime and 15 minutes after treating a low blood. sugar GLUCOSE BLOOD 73849558492 Active Malpapo Wallaceglrex PARISH Active LANTUS SOLOSTAR 100 UNIT/ML SUBCUTANEOUS SOLUTION PEN-INJECTOR Take 40 units at 7-8pm daily INSULIN GLARGINE 06882410143 Active Maliheh Ziglari MEDICAL CODER Active MECLIZINE HCL 25 MG ORAL TABLET 1 daily needed for dizziness 2015 MECLIZINE HCL 29450158229 No Longer Active Maliheh Ziglari MEDICAL CODER Active BENZONATATE 200 MG ORAL CAPSULE 1 tab, 2-3 times a day BENZONATATE 97250497747 No Longer Active Maliheh Ziglari MEDICAL CODER Active HALOPERIDOL 0.5 MG ORAL TABLET one tablet three times a day HALOPERIDOL 73872847992 No Longer Active Maliheh Ziglari MEDICAL CODER Active TRAZODONE HCL 50 MG ORAL TABLET three tablets at bed time TRAZODONE HCL 73400411281 No Longer Active Maliheh Ziglari MEDICAL CODER Active REVLIMID 25 MG ORAL CAPSULE one capsule daily for 21 days then off for 7 days LENALIDOMIDE 72602450200 No Longer Active Maliheh Ziglari MEDICAL CODER Active ZITHROMAX Z-EDDIE 250 MG ORAL TABLET 2 today, then 1 daily for 4 days AZITHROMYCIN 70099934419 No Longer Active Augustina Rangelann DOHERTY Active NOVOLIN R RELION 100 UNIT/ML INJECTION SOLUTION 30- 40 units each meal sliding scale INSULIN REGULAR HUMAN 96035370162 No Longer Active Maliheh Ziglari MEDICAL CODER Active HYDROCODONE-ACETAMINOPHEN 5-500 MG ORAL TABLET 1-2 FOUR TIMES A DAY, PRN 2010 HYDROCODONE-ACETAMINOPHEN 17662041993 No Longer Active Prosper Arenas MD Active DOXYCYCLINE HYCLATE 100 MG ORAL CAPSULE take one capsule by mouth twice daily for ten days DOXYCYCLINE HYCLATE 29371216166 No Longer Active Mekhi Dukes MD Active DOXYCYCLINE HYCLATE 100 MG ORAL CAPSULE take one capsule by mouth twice daily for ten days DOXYCYCLINE HYCLATE 100 MG ORAL CAPSULE 1756396 DOXYCYCLINE HYCLATE Inactive HALOPERIDOL 0.5 MG ORAL TABLET one tablet three times a day HALOPERIDOL 0.5 MG ORAL TABLET 504164 HALOPERIDOL Inactive HYDROCHLOROTHIAZIDE 25 MG ORAL TABLET 1 tablet by mouth daily HYDROCHLOROTHIAZIDE 25 MG ORAL TABLET 861119 HYDROCHLOROTHIAZIDE Inactive PREDNISONE 20 MG ORAL TABLET Take 2 daily for 3 days and then 1 daily for 3 days PREDNISONE 20 MG ORAL TABLET 132819 PREDNISONE Inactive TRAZODONE HCL 50 MG ORAL TABLET three tablets at bed time TRAZODONE HCL 50 MG ORAL TABLET 617802 TRAZODONE HCL Inactive ASPIRIN 81 MG ORAL TABLET 1 tablet by mouth daily ASPIRIN 81 MG ORAL TABLET 672717 ASPIRIN Inactive LISINOPRIL 5 MG ORAL TABLET 1 daily LISINOPRIL 5 MG ORAL TABLET 542388 LISINOPRIL Inactive MECLIZINE HCL 25 MG ORAL TABLET 1 daily needed for dizziness 2015 MECLIZINE HCL 25 MG ORAL TABLET 571227 MECLIZINE HCL Inactive HYDROCODONE-ACETAMINOPHEN 5-500 MG ORAL TABLET 1-2 FOUR TIMES A DAY, PRN 2010 HYDROCODONE-ACETAMINOPHEN 5-500 MG ORAL TABLET 666350 HYDROCODONE-ACETAMINOPHEN Inactive AZITHROMYCIN 250 MG ORAL TABLET 2 po qd x 1 day, then 1 po qd x 4 days 05/07 AZITHROMYCIN 250 MG ORAL TABLET 486387 AZITHROMYCIN Inactive SIMVASTATIN 80 MG ORAL TABLET 1/2 tablet daily SIMVASTATIN 80 MG ORAL TABLET 299939 SIMVASTATIN Inactive BENZONATATE 200 MG ORAL CAPSULE Take 1 tablet 3 times a day as needed for cough BENZONATATE 200 MG ORAL CAPSULE 216913 BENZONATATE Inactive BENZONATATE 200 MG ORAL CAPSULE 1 tab, 2-3 times a day BENZONATATE 200 MG ORAL CAPSULE 101860 BENZONATATE Inactive OMEPRAZOLE 20 MG ORAL CAPSULE DELAYED RELEASE 1 qd OMEPRAZOLE 20 MG ORAL CAPSULE DELAYED RELEASE 903751 OMEPRAZOLE Inactive ZITHROMAX Z-EDDIE 250 MG ORAL TABLET 2 today, then 1 daily for 4 days ZITHROMAX Z-EDDIE 250 MG ORAL TABLET 176754 AZITHROMYCIN Inactive CALCIUM 500/D 500-200 MG-UNIT ORAL TABLET one tablet daily CALCIUM 500/D 500-200 MG-UNIT ORAL TABLET CALCIUM CARBONATE-VITAMIN D Inactive METOPROLOL TARTRATE 25 MG ORAL TABLET 1/2 tablet twice a day METOPROLOL TARTRATE 25 MG ORAL TABLET 298231 METOPROLOL TARTRATE Inactive REVLIMID 25 MG ORAL [...] Panel - Chemistry sodium, serum 135 mmol/L 664-420 0390/04/10 carbon dioxide, venous blood 26.1 mmol/L 21.0-32.0 potassium, serum 4.2 mmol/L 3.5-5.2 chloride, serum 100 mmol/L 98-107 blood glucose 293 mg/dL 65-110 urea nitrogen, blood 18 mg/dL 7-18 creatinine, serum 2.06 mg/dL 0.60-1.30 alanine aminotransferase (SGPT), serum 59 U/L - aspartate aminotransferase (SGOT), serum 47 U/L 15-37 calcium, serum 8.6 mg/dL 8.5-10.1 bilirubin, serum, total 0.30 mg/dL 0.00-1.00 sodium, serum 139 mmol/L 194-251 3672/05/01 carbon dioxide, venous blood 25.2 mmol/L 21.0-32.0 potassium, serum 4.1 mmol/L 3.5-5.2 chloride, serum 104 mmol/L 98-107 blood glucose 64 mg/dL 65-95 urea nitrogen, blood 16 mg/dL 7-18 creatinine, serum 1.55 mg/dL 0.60-1.30 alanine aminotransferase (SGPT), serum 80 U/L - aspartate aminotransferase (SGOT), serum 53 U/L 15-37 calcium, serum 8.1 mg/dL 8.5-10.1 bilirubin, serum, total 0.40 mg/dL 0.00-1.00 sodium, serum 135 mmol/L 327-667 5369/05/08 carbon dioxide, venous blood 29.0 mmol/L 21.0-32.0 potassium, serum 4.8 mmol/L 3.5-5.2 chloride, serum 101 mmol/L 98-107 blood glucose 165 mg/dL 65-95 urea nitrogen, blood 19 mg/dL 7-18 creatinine, serum 1.51 mg/dL 0.60-1.30 alanine aminotransferase (SGPT), serum 65 U/L 12-78 aspartate aminotransferase (SGOT), serum 38 U/L 15-37 calcium, serum 8.2 mg/dL 8.5-10.1 bilirubin, serum, total 0.50 mg/dL 0.00-1.00 sodium, serum 134 mmol/L 628-180 9256/05/15 carbon dioxide, venous blood 23.5 mmol/L 21.0-32.0 [...] Metabolic Panel - Hematology leukocyte count, blood 1.7 10^3/MM^3 10*3/mm3 4.6-10.2 [...] % 11.6-14.8 platelet count 36 10^3/MM^3 10*3/mm3 136-770 8589/05/08 leukocyte count, blood 1.8 10^3/MM^3 10*3/mm3 4.6-10.2 [...] % 11.6-14.8 platelet count 103 10^3/MM^3 10*3/mm3 172-621 8019/05/01 leukocyte count, blood 5.0 10^3/MM^3 10*3/mm3 4.6-10.2 [...] % 11.6-14.8 platelet count 271 10^3/MM^3 10*3/mm3 360-735 2434/04/10 leukocyte count, blood 4.8 10^3/MM^3 10*3/mm3 4.6-10.2 [...] W/DIFF - Chemistry sodium, serum 137 mmol/L 525-673 4518/08/16 carbon dioxide, venous blood 26.3 mmol/L 21.0-32.0 [...] LABS - Chemistry cholesterol, serum 115 mg/dL 053-404 1739/08/18 triglyceride, serum, fasting 89 mg/dL 30-200 HDL [...] mg/dL Encounters Code Encounter Date Provider Facility CPT-83040 Level 3 Est. Patient 14:09:25 JOURNEYMAN SHEET METAL WORKER Dee Palmer APRN [facility] CPT-74823 Level 3 Est. Patient 10:53:32 JOURNEYMAN SHEET METAL WORKER Moy PARISH [facility] CPT-64862 Level 3 Est. Patient 17:11:55 JOURNEYMAN SHEET METAL WORKER Ismael Gracia MD [facility] CPT-66085 Level 4 Est. Patient 16:29:19 CDT Mekhi Dukes MD [facility] CPT-10517 Level 3 New Patient 17:05:24 CDT Ismael Gracia MD [facility] CPT-46645 Level 2 Est. Patient 15:43:17 CDT Mekhi Dukes MD [facility] CPT-13848 Level 3 Est. Patient 09:30:37 CDT Luxcarissashoaib Jose [facility] CPT-78710 Level 3 Est. Patient 10:00:14 CDT Mekhi Dukes MD [facility] CPT-39762 Level 3 Est. Patient 12:24:09 CDT Luxcarissashoaib Jose [facility] CPT-61056 Level 3 Est. Patient 14:34:57 CDT Prosper Arenas MD [facility] CPT-92344 Level 3 New Patient 15:44:53 JOURNEYMAN SHEET METAL WORKER Mekhi Dukes MD [facility] CPT-89499 Level 3 Est. Patient 14:53:34 JOURNEYMAN SHEET METAL WORKER Prosper Arenas MD [facility] CPT-76261 Level 4 Est. Patient 10:05:41 JOURNEYMAN SHEET METAL WORKER Luxpapo Garcia [facility] CPT-17061 Level 3 Est. Patient 11:18:32 CDT Luxcarissashoaib Jose [facility] CPT-80793 Level 4 Est. Patient 11:05:10 CDT Luxcarissashoaib Jose [facility] CPT-00637 Level 3 Est. Patient 11:08:27 JOURNEYMAN SHEET METAL WORKER Moy Garcia [facility] CPT-69545 Level 4 Est. Patient 10:43:59 CDT Prosper Arenas MD [facility] CPT-61070 Level 3 Est. Patient 10:51:19 CDT Moy Garcia [facility] CPT-26555 Level 3 Est. Patient 10:20:31 CDT Moy Garcia [facility] CPT-92509 Level 3 Est. Patient 17:08:45 [facility]-45148 Level 2 Est. Patient 13:54:36 CDT Augustina Mata BESSY [facility] CPT-89592 Level 3 Est. Patient 12:00:42 CDT Prosper Arenas MD [facility] CPT-12142 Level 3 Est. Patient 09:57:28 JOURNEYMAN SHEET METAL WORKER Luxshoaib Garcia [facility] CPT-18804 Level 3 Est. Patient 11:41:19 JOURNEYMAN SHEET METAL WORKER [facility] CPT-62258 Level 4 Est. Patient 17:07:35 JOURNEYMAN SHEET METAL WORKER [facility] CPT-67087 Level 5 Est. Patient 14:33:32 CDT [facility] CPT-09357 Level 3 Est. Patient 12:25:35 CDT Prosper Arenas MD [facility] Procedures Code Procedure Name Date Entry Date Standard Description CPT-23871 Chest, 2 views 14:17:20 JOURNEYMAN SHEET METAL WORKER CPT-62166 Postop F/U Visit 14:44:45 JOURNEYMAN SHEET METAL WORKER CPT-10333 Postop F/U Visit 17:20:20 JOURNEYMAN SHEET METAL WORKER CPT-G0439 [facility] Annual Wellness Exam 08:39:41 JOURNEYMAN SHEET METAL WORKER CPT-000 Give Appropriate Flu Vaccine 10:13:55 JOURNEYMAN SHEET METAL WORKER CPT-000 Give Immunizations Due 10:13:55 JOURNEYMAN SHEET METAL WORKER CPT-17915 HGBA1C - LAB USE ONLY 09:42:47 JOURNEYMAN SHEET METAL WORKER CPT-87002 TPSA - LAB USE ONLY 09:42:46 JOURNEYMAN SHEET METAL WORKER CPT-11271 Venipuncture Draw Fee 09:42:46 JOURNEYMAN SHEET METAL WORKER CPT-66333 Port a cath flush 13:33:18 JOURNEYMAN SHEET METAL WORKER CPT-15486 First Vx - Ix admin for Medicare patients 10:42:57 JOURNEYMAN SHEET METAL WORKER CPT-16559 Fluzone Preservative Free Intramuscular Suspension 10:42 :57 JOURNEYMAN SHEET METAL WORKER CPT-G0438 Initial Annual Wellness Exam 10:13:55 JOURNEYMAN SHEET METAL WORKER CPT-000 Give Appropriate Flu Vaccine 10:44:04 CDT CPT-000 Give Pneumovax 10:44:03 CDT CPT-98118 Port a cath flush 17:04:43 CDT CPT-32678 Prevnar 13 11:19:17 CDT CPT-43234 Fluzone Quadrivalent preservative free (>=3yrs.) 11:19: 17 CDT CPT-58259 Immunization Each Additional Inj 11:19:17 CDT CPT-82026 Immunization Single Admin 11:19:17 CDT CPT-82923 Port a cath flush 13:28:22 CDT CPT-TCMM Transitional Care Mgmt-Moderate 13:40:15 CDT CPT-G0008 Administration of Influenza Virus Vaccine 13:59:20 CDT CPT-61825 Fluzone High-Dose Intramuscular Suspension 13:59:20 CDT CPT-03732 Venipuncture Draw Fee 09:56:19 CDT CPT-OV Office Visit 15:46:10 CDT
--- OUTSIDE RECORDS SUMMARY | 2017-08-25 22:20 | XMS REPORT | Clinical Summary ---
Author Author Admin, IWONA Organization [employer] Address Unknown Phone Unavailable Allergies, Adverse Reactions, Alerts Allergy Name Reaction Description Start Date Severity Status Provider ERYTHROMYCIN Stomach cramps Moderate Active Prosper Arenas MD CODEINE Critical Active Maliheh Ziglari ADMISSIONS ADVISOR DARVOCET Critical Active Maliheh Ziglari ADMISSIONS ADVISOR LEVAQUIN Critical Active Maliheh Ziglari ADMISSIONS ADVISOR Conditions or Problems Problem Name Problem Code [...] type II, uncontrolled 250.02 Active Maliheh Ziglari ADMISSIONS ADVISOR Diabetes mellitus without mention of complication, type [...] with hyperglycemia 250.00 Active 03/21 Maliheh Ziglari ADMISSIONS ADVISOR Diabetes mellitus without mention of complication, type II or unspecified type, not stated as uncontrolled 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 V58.67 Active Maliheh Rodrigoglari ADMISSIONS ADVISOR Long-term (current) use of insulin Diabetes mellitus, type II with hypoglycemia 250.80 Active 07/22 Maliheh Ziglari ADMISSIONS ADVISOR Diabetes mellitus with other specified manifestations, type II or unspecified type, not stated as uncontrolled 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 sugar GLUCOSE BLOOD 19062358918 Active Maliheh Ziglari ADMISSIONS ADVISOR Active NOVOLOG FLEXPEN 100 UNIT/ML SOPN Take 25 units with each meal, add 1u/50 for blood sugars above 150. INSULIN ASPART 63642467111 Active Maliheh Ziglari ADMISSIONS ADVISOR Active LANTUS SOLOSTAR 100 UNIT/ML SOLN Take 40 units at 7-8pm daily INSULIN GLARGINE 95334801301 Active Maliheh Ziglari ADMISSIONS ADVISOR Active MECLIZINE HCL 25 MG TABS 1 daily needed for dizziness MECLIZINE HCL 75113032680 No Longer Active Maliheh Ziglari ADMISSIONS ADVISOR Active BENZONATATE 200 MG CAPS 1 tab, 2-3 times a day BENZONATATE 28474258033 No Longer Active Maliheh Ziglari ADMISSIONS ADVISOR Active HALOPERIDOL 0.5 MG TABS one tablet three times a day HALOPERIDOL 88592439072 No Longer Active Maliheh Ziglari ADMISSIONS ADVISOR Active TRAZODONE HCL 50 MG TAB three tablets at bed time TRAZODONE HCL 55086150475 No Longer Active Maliheh Ziglari ADMISSIONS ADVISOR Active REVLIMID 25 MG CAPS one capsule daily for 21 days then off for 7 days 2014 LENALIDOMIDE 48154008356 No Longer Active Maliheh Ziglari ADMISSIONS ADVISOR Active ZITHROMAX Z-EDDIE 250 MG TABS 2 today, then 1 daily for 4 days 2014 AZITHROMYCIN 91368006540 No Longer Active Augustina Yoann MARKETING SEGMENT MANAGER Active NOVOLIN R RELION 100 UNIT/ML INJ SOLN 30- 40 units each meal sliding scale INSULIN REGULAR HUMAN 69836036036 No Longer Active Maliheh Ziglari ADMISSIONS ADVISOR Active LISINOPRIL 5 MG TABS 1 daily LISINOPRIL 87867310447 Active Prosper Arenas MD Active CALCIUM 500/D 500-200 MG-UNIT TABS one tablet daily CALCIUM CARBONATE- VITAMIN D 22593139216 Active Prosper Arenas MD Active HYDROCHLOROTHIAZIDE 25 MG TABS 1 tablet by mouth daily HYDROCHLOROTHIAZIDE 78142051644 Active Prosper Arenas MD Active HYDROCODONE-ACETAMINOPHEN 5-500 MG TABS 1-2 FOUR TIMES A DAY, PRN HYDROCODONE-ACETAMINOPHEN 33444738357 No Longer Active Prosper Arenas MD Active SIMVASTATIN 80 MG TABS 1/2 tablet daily SIMVASTATIN 28946532712 Active Prosper Arenas MD Active METOPROLOL TARTRATE 25 MG TABS 1/2 tablet twice a day METOPROLOL TARTRATE 00517060510 Active Prosper Arenas MD Active ASPIRIN 81 MG TAB 1 tablet by mouth daily ASPIRIN 00657638471 Active Prosper Arenas MD Active OMEPRAZOLE 20 MG CPDR 1 qd OMEPRAZOLE 87627648863 Active DARCIE Miller Active DOXYCYCLINE HYCLATE 100 MG CAPS take one capsule by mouth twice daily for ten days DOXYCYCLINE HYCLATE 47530505510 No Longer Active Mekhi Dukes MD Active DOXYCYCLINE HYCLATE 100 MG CAPS take one capsule by mouth twice daily for ten days DOXYCYCLINE HYCLATE 100 MG CAPS 6338545 DOXYCYCLINE HYCLATE Inactive HYDROCODONE-ACETAMINOPHEN 5-500 MG TABS [...] days 2014 ZITHROMAX Z-EDDIE 250 MG TABS 9619596 AZITHROMYCIN Inactive REVLIMID 25 MG CAPS one capsule daily for 21 days then off for 7 days 2014 REVLIMID 25 MG CAPS LENALIDOMIDE Inactive TRAZODONE HCL 50 MG TAB three tablets at bed time TRAZODONE HCL 50 MG TAB 655199 TRAZODONE HCL Inactive HALOPERIDOL 0.5 MG TABS one tablet three times a day HALOPERIDOL 0.5 MG TABS 220818 HALOPERIDOL Inactive BENZONATATE 200 MG CAPS 1 tab, 2-3 times a day BENZONATATE 200 MG CAPS 525666 BENZONATATE Inactive MECLIZINE HCL 25 MG TABS 1 daily needed for dizziness MECLIZINE HCL 25 MG TABS 129817 MECLIZINE HCL Inactive Immunizations Vaccine Administration Date [...] mg/dL Encounters Code Encounter Date Provider Facility CPT-14883 Level 3 Est. Patient 14:53:34 RADAR TESTER Prosper Arenas MD [facility] CPT-23512 Level 4 Est. Patient 10:05:41 RADAR TESTER Moy Garcia [facility] CPT-33208 Level 3 Est. Patient 11:18:[facility] CPT-55417 Level 4 Est. Patient 11:05:10 CDT Moy Garcia [facility] CPT-61064 Level 3 Est. Patient 11:08:27 RADAR TESTER Moy Garcia [facility] CPT-96551 Level 4 Est. Patient 10:43:59 CDT Prosper Arenas MD [facility] CPT-55055 Level 3 Est. Patient 10:51:19 [facility] Level 3 Est. Patient 10:20:31 CDT [facility] Level 3 Est. Patient 17:08:45 [facility]T [facility] CPT-80703 Level 2 Est. Patient 13:54:36 CDT Augustina Mata APRN [facility] CPT-08904 Level 3 Est. Patient 12:00:42 CDT Prosper Arenas MD [facility] CPT-59718 Level 3 Est. Patient 09:57:28 RADAR TESTER Moy Garcia [facility] CPT-31469 Level 3 Est. Patient 11:41:19 RADAR TESTER [facility] Jose [facility] CPT-56485 Level 4 Est. Patient 17:07:35 RADAR TESTER [facility] CPT-76005 Level 5 Est. Patient 14:33:32 CDT Moy PARISH [facility] CPT-34394 Level 3 Est. Patient 12:25:35 CDT Prosper Arenas MD [facility] Procedures Code Procedure Name Date Entry Date Standard Description CPT-000 Give Appropriate Flu Vaccine 10:13:55 RADAR TESTER CPT-000 Give Immunizations Due 10:13:55 RADAR TESTER CPT-28342 HGBA1C - LAB USE ONLY 09:42:47 RADAR TESTER CPT-89109 TPSA - LAB USE ONLY 09:42:46 RADAR TESTER CPT-82452 Venipuncture Draw Fee 09:42:46 RADAR TESTER CPT-04812 Port a cath flush 13:33:18 RADAR TESTER CPT-92862 First Vx - Ix admin for Medicare patients 10:42:57 RADAR TESTER CPT-78002 Fluzone Preservative Free Intramuscular Suspension 10:42 :57 RADAR TESTER CPT-G0438 Initial Annual Wellness Exam 10:13:55 RADAR TESTER CPT-000 Give Appropriate Flu Vaccine 10:44:04 CDT CPT-000 Give Pneumovax 10:44:03 CDT CPT-25708 Port a cath flush 17:04:43 CDT CPT-90091 Prevnar 13 11:19:17 CDT CPT-39810 Fluzone Quadrivalent preservative free (>=3yrs.) 11:19: 17 CDT CPT-86682 Immunization Each Additional Inj 11:19:17 CDT CPT-66777 Immunization Single Admin 11:19:17 CDT CPT-02654 Port a cath flush 13:28:22 CDT CPT-TCMM Transitional Care Mgmt-Moderate 13:40:15 CDT CPT-G0008 Administration of Influenza Virus Vaccine 13:59:20 CDT CPT-92658 Fluzone High-Dose Intramuscular Suspension 13:59:20 CDT CPT-24487 Venipuncture Draw Fee 09:56:19 CDT CPT-OV Office Visit 15:46:10 CDT
--- OUTSIDE RECORDS SUMMARY | 2017-08-25 22:20 | XMS REPORT ---
Author Author [facility] Medical Staff Organization [facility] Address [address] [place] [address] Phone [phone] Summary purpose TRANSITION OF CARE AUTO GENERATION [...] diagnostic tests and/or laboratory data RESULTS Chemistry [id number]:00 Result Normal Range Units Sodium 136 134-145 [...] Estimated GFR L 44 >=60 mL/min/1.7 Hematology [id number]:15:00 Result Normal Range Units WBC 5.7 4.8-10.8 103/uL RBC 5.2 4.7-6.1 106/uL HGB 16.3 13.0-18.0 g/dl HCT 46.9 41.9-52.0 % MCV 91.1 80-94 FL MCH H 31.7 27-31 pg MCHC 34.8 33-37 g/dl RDW 11.8 11.5-15.5 % PLT 184 130-400 103/uL MPV H 11.3 7.3-10.4 FL Segs L 34.0 40-70 % Lymphs H 52.0 20-40 % [place] 9.0 0-10 % Eos 5.0 0-7 % Radiology Results :15:00 Result Normal Range Units MPV H 11.3 7.3-10.4 FL History of procedures No procedures [...]
--- OUTSIDE RECORDS SUMMARY | 2017-08-25 22:21 | XMS REPORT | Clinical Summary ---
Author Author Admin, Kaylynn Organization [facility] Down Address Unknown Phone Unavailable Allergies, Adverse Reactions, Alerts Allergy Name Reaction Description Start Date Severity Status Provider ERYTHROMYCIN Stomach cramps Moderate Active Prosper Arenas MD CODEINE Critical Active Maliheh Ziglari PSYCHIATRIST DARVOCET Critical Active Maliheh Ziglari PSYCHIATRIST LEVAQUIN Critical Active Maliheh Ziglari PSYCHIATRIST Conditions or Problems Problem Name Problem Code Onset Date Status Entry Date Provider Comment Standard Description Annotate Diabetes, Type 2 250.00 Resolved 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, type II [...] type II, uncontrolled 250.02 Active Maliheh Rodrigoglari PSYCHIATRIST Diabetes mellitus without mention of complication, type [...] with hyperglycemia 250.00 Active 03/21 Maliheh Ziglari PSYCHIATRIST Diabetes mellitus without mention of complication, type II or unspecified type, not stated as uncontrolled half-way use of insulin treatment V58.67 Active Luxiheh Rodrigoglari PSYCHIATRIST Long-term (current) use of insulin Diabetes mellitus, type II with hypoglycemia 250.80 Active 07/22 Maliheh Ziglari PSYCHIATRIST Diabetes mellitus with other specified manifestations, type II or unspecified type, not stated as uncontrolled 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 Maliheh Ziglari PSYCHIATRIST Diabetes mellitus with renal manifestations, type II or unspecified type, not stated as uncontrolled Wellness exam V70.0 Active Dee Palmer APRN Routine general medical examination at a health care facility Fitting and adjustment of vascular catheter V58.81 Active 02/06 Dee Palmer APRN Encounter for fitting and adjustment of vascular catheter Unawareness of hypoglycemia in diabetes mellitus, type II 250.80 Active Maliheh Rodrigoglari PSYCHIATRIST Diabetes mellitus with other specified manifestations, type [...] (not specified as recurrent) Gastritis Inactive Maliheh Rodrigoglrex PSYCHIATRIST Unspecified gastritis and gastroduodenitis, without mention of [...] po qd x 4 days 05/07 AZITHROMYCIN 01184366166 No Longer Active Dee Palmer APRN Active GUAIFENESIN DM 400-20 MG ORAL TABLET 1 pill by mouth twice daily, if needed for cough DEXTROMETHORPHAN-GUAIFENESIN 07831758231 Active Dee Palmer APRN Active PREDNISONE 20 MG ORAL TABLET 2 tabs daily for 4 days, 1 tab daily for 4 days, 1/2 tab daily for 4 days PREDNISONE 16716760243 Active Dee Palmer APRN Active ASPIRIN 81 MG ORAL TABLET 1 po qd ASPIRIN 18665132876 Active Ryanllvito Barkleyl SIMULATION EDUCATOR Active CALCIUM 500/D 500-200 MG-UNIT ORAL TABLET one tablet daily CALCIUM CARBONATE-VITAMIN D 93487557818 No Longer Active Jillvito Barkleyngoc SIMULATION EDUCATOR Active HYDROCODONE-ACETAMINOPHEN 7.5-325 MG ORAL TABLET 1-2 every 4-6 hrs prn 02/25 HYDROCODONE-ACETAMINOPHEN 05003212425 Active Marina Messina SIMULATION EDUCATOR Active ASPIRIN 81 MG ORAL TABLET 1 tablet by mouth daily ASPIRIN 00472976817 No Longer Active Marina Messina SIMULATION EDUCATOR Active SIMVASTATIN 80 MG ORAL TABLET 1/2 tablet daily SIMVASTATIN 39714057360 No Longer Active Mekhi Dukes MD Active OMEPRAZOLE 20 MG ORAL CAPSULE DELAYED RELEASE 1 qd OMEPRAZOLE 95357102607 No Longer Active Mekhi Dukes MD Active METOPROLOL TARTRATE 25 MG ORAL TABLET 1/2 tablet twice a day METOPROLOL TARTRATE 72508047927 No Longer Active Mekhi Dukes MD Active LISINOPRIL 5 MG ORAL TABLET 1 daily LISINOPRIL 51078401533 No Longer Active Mekhi Dukes MD Active NOVOLOG FLEXPEN 100 UNIT/ML SUBCUTANEOUS SOLUTION PEN-INJECTOR Take 8 units with each meal, add 1u/50 for blood sugars above 150. INSULIN ASPART 22281232449 Active Moy PARISH Active GABAPENTIN 300 MG ORAL CAPSULE 1 tab BID GABAPENTIN 87741872867 Active Tami Miller RN Active PREDNISONE 20 MG ORAL TABLET Take 2 daily for 3 days and then 1 daily for 3 days PREDNISONE 18926008588 No Longer Active Moy PARISH Active BENZONATATE 200 MG ORAL CAPSULE Take 1 tablet 3 times a day as needed for cough BENZONATATE 74801380849 No Longer Active Prosper Arenas MD Active HYDROCHLOROTHIAZIDE 25 MG ORAL TABLET 1 tablet by mouth daily HYDROCHLOROTHIAZIDE 93824146383 No Longer Active Prosper Arenas MD Active ACCU-CHEK JOANNA PLUS IN VITRO STRIP check blood sugars 5x a day, before each meal and bedtime and 15 minutes after treating a low blood. sugar GLUCOSE BLOOD 43580216624 Active Moy Wallaceglrex PARISH Active LANTUS SOLOSTAR 100 UNIT/ML SUBCUTANEOUS SOLUTION PEN-INJECTOR Take 40 units at 7-8pm daily INSULIN GLARGINE 51015972548 Active Maliheh Ziglari PSYCHIATRIST Active MECLIZINE HCL 25 MG ORAL TABLET 1 daily needed for dizziness 2015 MECLIZINE HCL 78313154774 No Longer Active Maliheh Ziglari PSYCHIATRIST Active BENZONATATE 200 MG ORAL CAPSULE 1 tab, 2-3 times a day BENZONATATE 31764536938 No Longer Active Maliheh Ziglari PSYCHIATRIST Active HALOPERIDOL 0.5 MG ORAL TABLET one tablet three times a day HALOPERIDOL 67552062644 No Longer Active Maliheh Ziglari PSYCHIATRIST Active TRAZODONE HCL 50 MG ORAL TABLET three tablets at bed time TRAZODONE HCL 84500631321 No Longer Active Maleh Ziglari PSYCHIATRIST Active REVLIMID 25 MG ORAL CAPSULE one capsule daily for 21 days then off for 7 days LENALIDOMIDE 89802728916 No Longer Active Maleh Ziglari PSYCHIATRIST Active ZITHROMAX Z-EDDIE 250 MG ORAL TABLET 2 today, then 1 daily for 4 days AZITHROMYCIN 26261482295 No Longer Active Augustina Mata APRN Active NOVOLIN R RELION 100 UNIT/ML INJECTION SOLUTION 30- 40 units each meal sliding scale INSULIN REGULAR HUMAN 94385338063 No Longer Active Maleh Ziglari PSYCHIATRIST Active HYDROCODONE-ACETAMINOPHEN 5-500 MG ORAL TABLET 1-2 FOUR TIMES A DAY, PRN 2010 HYDROCODONE-ACETAMINOPHEN 34186568657 No Longer Active Prosper Arenas MD Active DOXYCYCLINE HYCLATE 100 MG ORAL CAPSULE take one capsule by mouth twice daily for ten days DOXYCYCLINE HYCLATE 88086810905 No Longer Active Mekhi Dukes MD Active DOXYCYCLINE HYCLATE 100 MG ORAL CAPSULE take one capsule by mouth twice daily for ten days DOXYCYCLINE HYCLATE 100 MG ORAL CAPSULE 7042619 DOXYCYCLINE HYCLATE Inactive HYDROCODONE-ACETAMINOPHEN 5-500 MG ORAL TABLET 1-2 FOUR TIMES A DAY, PRN 2010 HYDROCODONE-ACETAMINOPHEN 5-500 MG ORAL TABLET 533597 HYDROCODONE-ACETAMINOPHEN Inactive NOVOLIN R RELION 100 UNIT/ML INJECTION SOLUTION 30- 40 units each meal sliding scale NOVOLIN R RELION 100 UNIT/ML INJECTION SOLUTION INSULIN REGULAR HUMAN Inactive ZITHROMAX Z-EDDIE 250 MG ORAL TABLET 2 today, then 1 daily for 4 days ZITHROMAX Z-EDDIE 250 MG ORAL TABLET 806868 AZITHROMYCIN Inactive REVLIMID 25 MG ORAL CAPSULE one capsule daily for 21 days then off for 7 days REVLIMID 25 MG ORAL CAPSULE LENALIDOMIDE Inactive TRAZODONE HCL 50 MG ORAL TABLET three tablets at bed time TRAZODONE HCL 50 MG ORAL TABLET 639552 TRAZODONE HCL Inactive HALOPERIDOL 0.5 MG ORAL TABLET one tablet three times a day HALOPERIDOL 0.5 MG ORAL TABLET 404647 HALOPERIDOL Inactive BENZONATATE 200 MG ORAL CAPSULE 1 tab, 2-3 times a day BENZONATATE 200 MG ORAL CAPSULE 029989 BENZONATATE Inactive MECLIZINE HCL 25 MG ORAL TABLET 1 daily needed for dizziness 2015 MECLIZINE HCL 25 MG ORAL TABLET 255087 MECLIZINE HCL Inactive HYDROCHLOROTHIAZIDE 25 MG ORAL TABLET 1 tablet by mouth daily HYDROCHLOROTHIAZIDE 25 MG ORAL TABLET 064274 HYDROCHLOROTHIAZIDE Inactive PREDNISONE 20 MG ORAL TABLET Take 2 daily for 3 days and then 1 daily for 3 days PREDNISONE 20 MG ORAL TABLET 036563 PREDNISONE Inactive LISINOPRIL 5 MG ORAL TABLET 1 daily LISINOPRIL 5 MG ORAL TABLET 394948 LISINOPRIL Inactive METOPROLOL TARTRATE 25 MG ORAL TABLET 1/2 tablet twice a day METOPROLOL TARTRATE 25 MG ORAL TABLET 089799 METOPROLOL TARTRATE Inactive OMEPRAZOLE 20 MG ORAL CAPSULE DELAYED RELEASE 1 qd OMEPRAZOLE 20 MG ORAL CAPSULE DELAYED RELEASE 201931 OMEPRAZOLE Inactive SIMVASTATIN 80 MG ORAL TABLET 1/2 tablet daily SIMVASTATIN 80 MG ORAL TABLET 690285 SIMVASTATIN Inactive ASPIRIN 81 MG ORAL TABLET 1 tablet by mouth daily ASPIRIN 81 MG ORAL TABLET 305551 ASPIRIN Inactive CALCIUM 500/D 500-200 MG-UNIT ORAL TABLET one tablet daily CALCIUM 500/D 500-200 MG-UNIT ORAL TABLET CALCIUM CARBONATE-VITAMIN D Inactive BENZONATATE 200 MG ORAL CAPSULE Take 1 tablet 3 times a day as needed for cough BENZONATATE 200 MG ORAL CAPSULE 619647 BENZONATATE Inactive AZITHROMYCIN 250 MG ORAL TABLET 2 po qd x 1 day, then 1 po qd x 4 days 05/07 AZITHROMYCIN 250 MG ORAL TABLET 772073 AZITHROMYCIN Inactive Immunizations Vaccine Administration Date Value [...] Outside labs entered on Flowsheet - Hematology hemoglobin, blood 20.2 g/dL hematocrit, blood 57.9 % platelet count 103 10*3/mm3 leukocyte count, blood 4.75 10*3/mm3 Lab Report: CBC W/DIFF - Hematology [...] Panel - Chemistry sodium, serum 134 mmol/L 457-689 5833/05/15 carbon dioxide, venous blood 23.5 mmol/L 21.0-32.0 potassium, serum 4.8 mmol/L 3.5-5.2 chloride, serum 101 mmol/L 98-107 blood glucose 139 mg/dL 65-95 urea nitrogen, blood 19 mg/dL 7-18 creatinine, serum 1.79 mg/dL 0.60-1.30 alanine aminotransferase (SGPT), serum 140 U/L 12-78 aspartate aminotransferase (SGOT), serum 104 U/L 15-37 calcium, serum 8.5 mg/dL 8.5-10.1 bilirubin, serum, total 0.40 mg/dL 0.00-1.00 sodium, serum 135 mmol/L 879-884 1846/05/08 carbon dioxide, venous blood 29.0 mmol/L 21.0-32.0 potassium, serum 4.8 mmol/L 3.5-5.2 chloride, serum 101 mmol/L 98-107 blood glucose 165 mg/dL 65-95 urea nitrogen, blood 19 mg/dL 7-18 creatinine, serum 1.51 mg/dL 0.60-1.30 alanine aminotransferase (SGPT), serum 65 U/L 12-78 aspartate aminotransferase (SGOT), serum 38 U/L 15-37 calcium, serum 8.2 mg/dL 8.5-10.1 bilirubin, serum, total 0.50 mg/dL 0.00-1.00 sodium, serum 135 mmol/L 167-844 2426/04/10 carbon dioxide, venous blood 26.1 mmol/L 21.0-32.0 potassium, serum 4.2 mmol/L 3.5-5.2 chloride, serum 100 mmol/L 98-107 blood glucose 293 mg/dL 65-110 urea nitrogen, blood 18 mg/dL 7-18 creatinine, serum 2.06 mg/dL 0.60-1.30 alanine aminotransferase (SGPT), serum 59 U/L -78 aspartate aminotransferase (SGOT), serum 47 U/L 15-37 calcium, serum 8.6 mg/dL 8.5-10.1 bilirubin, serum, total 0.30 mg/dL 0.00-1.00 sodium, serum 139 mmol/L 271-424 2430/05/01 carbon dioxide, venous blood 25.2 mmol/L 21.0-32.0 [...] % 11.6-14.8 platelet count 103 10^3/MM^3 10*3/mm3 843-568 8180/04/10 neutrophils as percent of blood leukocytes 36.7 [...] % 11.6-14.8 platelet count 200 10^3/MM^3 10*3/mm3 040-823 3766/05/15 leukocyte count, blood 1.7 10^3/MM^3 10*3/mm3 4.6-10.2 [...] % 11.6-14.8 platelet count 36 10^3/MM^3 10*3/mm3 111-949 0894/04/10 leukocyte count, blood 4.8 10^3/MM^3 10*3/mm3 4.6-10.2 lymphocytes as percent of blood leukocytes 43.2 % 20.5-51.1 erythrocyte (RBC) count 4.56 10^6/MM^3 10*6/mm3 4.50-6.50 hemoglobin, blood 14.9 g/dL 14.0-18.0 hematocrit, blood 45.1 % 40.0-54.0 mean corpuscular volume, RBC 99 fL 80-97 mean corpuscular hemoglobin, RBC 32.8 pg 27.0-31.2 mean corpuscular hemoglobin concentration, RBC 33.1 G/DL % 31.8- 35.4 red blood cell distribution width 13.9 % 11.6-14.8 platelet count 271 10^3/MM^3 10*3/mm3 786-978 7258/05/01 leukocyte count, blood 5.0 10^3/MM^3 10*3/mm3 4.6-10.2 neutrophils as percent of blood leukocytes 37.5 % 42.2-75.2 monocytes as percent of blood leukocytes 16.1 % 1.7-9.3 Lab Report: Comp. Metabolic Panel - Chemistry sodium, serum 134 mmol/L 058-912 9621/05/22 carbon dioxide, venous blood 25.2 mmol/L 21.0-32.0 [...] W/DIFF - Chemistry sodium, serum 137 mmol/L 756-659 9922/08/16 chloride, serum 104 mmol/L 98-107 potassium, serum 4.4 mmol/L 3.5-5.2 carbon dioxide, venous blood 26.3 mmol/L 21.0-32.0 blood glucose 138 mg/dL 65-110 urea nitrogen, [...] Panel, Glucose- [facility] - Chemistry LDL cholesterol, serum 51 mg/dL 0-130 blood glucose 104 mg/dL 65-110 cholesterol, serum 115 mg/dL 545-195 0883/08/18 triglyceride, serum, fasting 89 mg/dL 30-200 HDL cholesterol, serum 46 mg/dL 32-60 Lab Report: SADA INFLUENZA A/B - Toxicology [...] mg/dL Encounters Code Encounter Date Provider Facility CPT-05409 Level 3 Est. Patient 14:09:25 NEWSCAST DIRECTOR Dee Palmer APRN [facility] CPT-48444 Level 3 Est. Patient 10:53:32 NEWSCAST DIRECTOR Moy PARISH [facility] CPT-90239 Level 3 Est. Patient 17:11:55 NEWSCAST DIRECTOR Ismael Gracia MD [facility] CPT-52709 Level 4 Est. Patient 16:29:19 CDT Mekhi Dukes MD [facility] CPT-10026 Level 3 New Patient 17:05:24 CDT Ismael Gracia MD [facility] CPT-96319 Level 2 Est. Patient 15:43:17 CDT Mekhi Dukes MD [facility] CPT-49001 Level 3 Est. Patient 09:30:37 CDT Moy Garcia [facility] CPT-36492 Level 3 Est. Patient 10:00:14 CDT Mekhi Dukes MD [facility] CPT-50554 Level 3 Est. Patient 12:24:09 CDT Moy Garcia [facility] CPT-07191 Level 3 Est. Patient 14:34:57 CDT Prosper Arenas MD [facility] CPT-33664 Level 3 New Patient 15:44:53 NEWSCAST DIRECTOR Mekhi Dukes MD [facility] CPT-05734 Level 3 Est. Patient 14:53:34 NEWSCAST DIRECTOR Prosper Arenas MD [facility] CPT-40623 Level 4 Est. Patient 10:05:41 NEWSCAST DIRECTOR Moy Rodrigokymrex [facility] CPT-94510 Level 3 Est. Patient 11:18:32 [facility] Level 4 Est. Patient 11:05:10 [facility] Level 3 Est. Patient 11:08:27 NEWSCAST DIRECTOR Moy Garcia [facility] CPT-03658 Level 4 Est. Patient 10:43:59 CDT Prosper Arenas MD [facility] CPT-12735 Level 3 Est. Patient 10:51:19 CDT Moy Garcia [facility] CPT-69787 Level 3 Est. Patient 10:20:[address] [facility] CPT-05514 Level 3 Est. Patient 17:08:45 CDT [facility] CPT-20776 Level 2 Est. Patient 13:54:36 CDT Augustina Mata APRN [facility] CPT-31728 Level 3 Est. Patient 12:00:42 CDT Prosper Arenas MD [facility] CPT-46717 Level 3 Est. Patient 09:57:28 NEWSCAST DIRECTOR Moy Garcia [facility] CPT-24503 Level 3 Est. Patient 11:41:19 NEWSCAST DIRECTOR Moy Wallacerex [facility] CPT-75718 Level 4 Est. Patient 17:07:35 NEWSCAST DIRECTOR Luxshoaib Garcia [facility] CPT-72655 Level 5 Est. Patient 14:33:[address] [facility] CPT-07671 Level 3 Est. Patient 12:25:35 CDT Prosper Arenas MD [facility] Procedures Code Procedure Name Date Entry Date Standard Description CPT-35998 Chest, 2 views 14:17:20 NEWSCAST DIRECTOR CPT-21914 Postop F/U Visit 14:44:45 NEWSCAST DIRECTOR CPT-16480 Postop F/U Visit 17:20:20 NEWSCAST DIRECTOR CPT-G0439 [facility] Annual Wellness Exam 08:39:41 NEWSCAST DIRECTOR CPT-000 Give Appropriate Flu Vaccine 10:13:55 NEWSCAST DIRECTOR CPT-000 Give Immunizations Due 10:13:55 NEWSCAST DIRECTOR CPT-57988 HGBA1C - LAB USE ONLY 09:42:47 NEWSCAST DIRECTOR CPT-21296 TPSA - LAB USE ONLY 09:42:46 NEWSCAST DIRECTOR CPT-33192 Venipuncture Draw Fee 09:42:46 NEWSCAST DIRECTOR CPT-45603 Port a cath flush 13:33:18 NEWSCAST DIRECTOR CPT-01867 First Vx - Ix admin for Medicare patients 10:42:57 NEWSCAST DIRECTOR CPT-45073 Fluzone Preservative Free Intramuscular Suspension 10:42 :57 NEWSCAST DIRECTOR CPT-G0438 Initial Annual Wellness Exam 10:13:55 NEWSCAST DIRECTOR CPT-000 Give Appropriate Flu Vaccine 10:44:04 CDT CPT-000 Give Pneumovax 10:44:03 CDT CPT-38778 Port a cath flush 17:04:43 CDT CPT-61027 Prevnar 13 11:19:17 CDT CPT-32315 Fluzone Quadrivalent preservative free (>=3yrs.) 11:19: 17 CDT CPT-27767 Immunization Each Additional Inj 11:19:17 CDT CPT-45728 Immunization Single Admin 11:19:17 CDT CPT-38983 Port a cath flush 13:28:22 CDT CPT-TCMM Transitional Care Mgmt-Moderate 13:40:15 CDT CPT-G0008 Administration of Influenza Virus Vaccine 13:59:20 CDT CPT-60653 Fluzone High-Dose Intramuscular Suspension 13:59:20 CDT CPT-84099 Venipuncture Draw Fee 09:56:19 CDT CPT-OV Office Visit 15:46:10 CDT
--- OUTSIDE RECORDS SUMMARY | 2017-08-25 22:23 | XMS REPORT ---
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 Role Phone YOMI RAMESH MD PP [phone] Summary purpose TRANSITION OF CARE AUTO GENERATION [...] diagnostic tests and/or laboratory data RESULTS Chemistry [id number]:25:00 Result Normal Range Units Sodium 139 134-145 [...] Estimated GFR L 43 >=60 mL/min/1.7 Hematology 26-22-028257:25:00 Result Normal Range Units WBC 5.1 4.8-10.8 103/uL RBC L 4.6 4.7-6.1 106/uL HGB 14.7 13.0-18.0 g/dl HCT L 40.6 41.9-52.0 % MCV 87.9 80-94 FL MCH H 31.8 27-31 pg MCHC 36.2 33-37 g/dl RDW 14.0 11.5-15.5 % PLT 190 130-400 103/uL MPV H 10.5 7.3-10.4 FL Segs L 31.0 40-70 % Lymphs H 51.0 20-40 % [place] H 15.0 0-10 % Eos 1.0 0-7 % Atypical Lymphs 2.0 0-5 % Radiology Results [id number]:25:00 Result Normal Range Units MPV H 10.5 7.3-10.4 FL History of procedures Procedure Code Code Type Description Date Performed Performing Physician 11778 CPT-4 COMPREHEN METABOLIC PANEL 08-09-2014 HENRIK RIGGINS 97564 CPT-4 DRAW BLOOD OFF VENOUS DEVICE 08-09-2014 HENRIK RIGGINS 19811 CPT-4 COMPLETE CBC, AUTOMATED 08-09-2014 HENRIK RIGGINS 09694 CPT-4 BL SMEAR W/DIFF WBC COUNT 08-09-2014 HENRIK RIGGINS Functional status No functional or [...]
--- OUTSIDE RECORDS SUMMARY | 2017-08-25 22:23 | XMS REPORT | Clinical Summary ---
Author Author Admin, [place] Organization [facility] [place] Address Unknown Phone Unavailable Allergies, Adverse Reactions, Alerts Allergy Name Reaction Description Start Date Severity Status Provider ERYTHROMYCIN Stomach cramps Moderate Active Prosper Arenas MD CODEINE Critical Active Maliheh Ziglari CLINICAL SCIENTIST DARVOCET Critical Active Maliheh Ziglari CLINICAL SCIENTIST LEVAQUIN Critical Active Maliheh Ziglari CLINICAL SCIENTIST Conditions or Problems Problem Name Problem Code Onset Date Status Entry Date Provider Comment Standard Description Annotate Diabetes, Type 2 250.00 Resolved 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 mellitus without mention of complication, type [...] type II, uncontrolled 250.02 Active Maliheh Ziglari CLINICAL SCIENTIST Diabetes mellitus without mention of complication, type II or unspecified type, uncontrolled Chest pain, atypical 786.59 Resolved eMkhi Dukes MD Other chest pain Bronchitis 490 [...] with hyperglycemia 250.00 Active 03/21 Maliheh Ziglari CLINICAL SCIENTIST Diabetes mellitus without mention of complication, type II or unspecified type, not stated as uncontrolled FDC use of insulin treatment V58.67 Active Luxiheh Rodrigoglari CLINICAL SCIENTIST Long-term (current) use of insulin Diabetes mellitus, type II with hypoglycemia 250.80 Active 07/22 Maliheh Ziglari CLINICAL SCIENTIST Diabetes mellitus with other specified manifestations, type II or unspecified type, not stated as uncontrolled 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 Maliheh Ziglari CLINICAL SCIENTIST Diabetes mellitus with renal manifestations, type II or unspecified type, not stated as uncontrolled Wellness exam V70.0 Active Dee Palmer APRN Routine general medical examination at a health care facility Fitting and adjustment of vascular catheter V58.81 Active 02/06 Dee Palmer APRN Encounter for fitting and adjustment of vascular catheter Unawareness of hypoglycemia in diabetes mellitus, type II 250.80 Active Maliheh Rodrigoglari CLINICAL SCIENTIST Diabetes mellitus with other specified manifestations, type [...] specified as recurrent) Gastritis Inactive Maliheh Ziglari CLINICAL SCIENTIST Unspecified gastritis and gastroduodenitis, without mention of [...] po qd x 4 days 05/07 AZITHROMYCIN [id number] No Longer Active Dee Palmer APRN Active GUAIFENESIN DM 400-20 MG ORAL TABLET 1 pill by mouth twice daily, if needed for cough DEXTROMETHORPHAN-GUAIFENESIN 03119734270 Active Dee Palmer APRN Active PREDNISONE 20 MG ORAL TABLET 2 tabs daily for 4 days, 1 tab daily for 4 days, 1/2 tab daily for 4 days PREDNISONE 04828424709 Active Dee Palmer APRN Active ASPIRIN 81 MG ORAL TABLET 1 po qd ASPIRIN 73518718027 Active Dee Palmer APRN Active CALCIUM 500/D 500-200 MG-UNIT ORAL TABLET one tablet daily CALCIUM CARBONATE-VITAMIN D 68704128092 No Longer Active Trinhvito Barkleyngoc MOTOR LODGE CLERK Active HYDROCODONE-ACETAMINOPHEN 7.5-325 MG ORAL TABLET 1-2 every 4-6 hrs prn 02/25 HYDROCODONE-ACETAMINOPHEN 80245445559 Active Marina Messina MOTOR LODGE CLERK Active ASPIRIN 81 MG ORAL TABLET 1 tablet by mouth daily ASPIRIN 84987822142 No Longer Active Marina Messina MOTOR LODGE CLERK Active SIMVASTATIN 80 MG ORAL TABLET 1/2 tablet daily SIMVASTATIN 22887030922 No Longer Active Mekhi Dukes MD Active OMEPRAZOLE 20 MG ORAL CAPSULE DELAYED RELEASE 1 qd OMEPRAZOLE 01156990212 No Longer Active Mekhi Dukes MD Active METOPROLOL TARTRATE 25 MG ORAL TABLET 1/2 tablet twice a day METOPROLOL TARTRATE 72186735901 No Longer Active Mekhi Dukes MD Active LISINOPRIL 5 MG ORAL TABLET 1 daily LISINOPRIL 86020917301 No Longer Active Mekhi Dukes MD Active NOVOLOG FLEXPEN 100 UNIT/ML SUBCUTANEOUS SOLUTION PEN-INJECTOR Take 8 units with each meal, add 1u/50 for blood sugars above 150. INSULIN ASPART 46901643809 Active Moy PARISH Active GABAPENTIN 300 MG ORAL CAPSULE 1 tab BID GABAPENTIN 77302301671 Active Tami Miller RN Active PREDNISONE 20 MG ORAL TABLET Take 2 daily for 3 days and then 1 daily for 3 days PREDNISONE 84143742978 No Longer Active Moy PARISH Active BENZONATATE 200 MG ORAL CAPSULE Take 1 tablet 3 times a day as needed for cough BENZONATATE 01238858283 No Longer Active Prosper Arenas MD Active HYDROCHLOROTHIAZIDE 25 MG ORAL TABLET 1 tablet by mouth daily HYDROCHLOROTHIAZIDE 21661315880 No Longer Active Prosper Arenas MD Active ACCU-CHEK JOANNA PLUS IN VITRO STRIP check blood sugars 5x a day, before each meal and bedtime and 15 minutes after treating a low blood. sugar GLUCOSE BLOOD 47588136315 Active Malpapo Wallaceglrex PARISH Active LANTUS SOLOSTAR 100 UNIT/ML SUBCUTANEOUS SOLUTION PEN-INJECTOR Take 40 units at 7-8pm daily INSULIN GLARGINE 54800868017 Active Maliheh Ziglari CLINICAL SCIENTIST Active MECLIZINE HCL 25 MG ORAL TABLET 1 daily needed for dizziness 2015 MECLIZINE HCL 15407879605 No Longer Active Maliheh Ziglari CLINICAL SCIENTIST Active BENZONATATE 200 MG ORAL CAPSULE 1 tab, 2-3 times a day BENZONATATE 04832046301 No Longer Active Maliheh Ziglari CLINICAL SCIENTIST Active HALOPERIDOL 0.5 MG ORAL TABLET one tablet three times a day HALOPERIDOL 59732231758 No Longer Active Maliheh Ziglari CLINICAL SCIENTIST Active TRAZODONE HCL 50 MG ORAL TABLET three tablets at bed time TRAZODONE HCL 41557197456 No Longer Active Maliheh Ziglari CLINICAL SCIENTIST Active REVLIMID 25 MG ORAL CAPSULE one capsule daily for 21 days then off for 7 days LENALIDOMIDE 13006196125 No Longer Active Maliheh Ziglari CLINICAL SCIENTIST Active ZITHROMAX Z-EDDIE 250 MG ORAL TABLET 2 today, then 1 daily for 4 days AZITHROMYCIN 37923765242 No Longer Active Augustina Mata APRN Active NOVOLIN R RELION 100 UNIT/ML INJECTION SOLUTION 30- 40 units each meal sliding scale INSULIN REGULAR HUMAN 10832776730 No Longer Active Maliheh Ziglari CLINICAL SCIENTIST Active HYDROCODONE-ACETAMINOPHEN 5-500 MG ORAL TABLET 1-2 FOUR TIMES A DAY, PRN 2010 HYDROCODONE-ACETAMINOPHEN 81206821362 No Longer Active Prosper Arenas MD Active DOXYCYCLINE HYCLATE 100 MG ORAL CAPSULE take one capsule by mouth twice daily for ten days DOXYCYCLINE HYCLATE 40481986800 No Longer Active Mekhi Dukes MD Active DOXYCYCLINE HYCLATE 100 MG ORAL CAPSULE take one capsule by mouth twice daily for ten days DOXYCYCLINE HYCLATE 100 MG ORAL CAPSULE 2194293 DOXYCYCLINE HYCLATE Inactive HYDROCODONE-ACETAMINOPHEN 5-500 MG ORAL TABLET 1-2 FOUR TIMES A DAY, PRN 2010 HYDROCODONE-ACETAMINOPHEN 5-500 MG ORAL TABLET 875629 HYDROCODONE-ACETAMINOPHEN Inactive NOVOLIN R RELION 100 UNIT/ML INJECTION SOLUTION 30- 40 units each meal sliding scale NOVOLIN R RELION 100 UNIT/ML INJECTION SOLUTION INSULIN REGULAR HUMAN Inactive ZITHROMAX Z-EDDIE 250 MG ORAL TABLET 2 today, then 1 daily for 4 days ZITHROMAX Z-EDDIE 250 MG ORAL TABLET 442692 AZITHROMYCIN Inactive REVLIMID 25 MG ORAL CAPSULE one capsule daily for 21 days then off for 7 days REVLIMID 25 MG ORAL CAPSULE LENALIDOMIDE Inactive TRAZODONE HCL 50 MG ORAL TABLET three tablets at bed time TRAZODONE HCL 50 MG ORAL TABLET 296323 TRAZODONE HCL Inactive HALOPERIDOL 0.5 MG ORAL TABLET one tablet three times a day HALOPERIDOL 0.5 MG ORAL TABLET 253734 HALOPERIDOL Inactive BENZONATATE 200 MG ORAL CAPSULE 1 tab, 2-3 times a day BENZONATATE 200 MG ORAL CAPSULE 291056 BENZONATATE Inactive MECLIZINE HCL 25 MG ORAL TABLET 1 daily needed for dizziness 2015 MECLIZINE HCL 25 MG ORAL TABLET 675209 MECLIZINE HCL Inactive HYDROCHLOROTHIAZIDE 25 MG ORAL TABLET 1 tablet by mouth daily HYDROCHLOROTHIAZIDE 25 MG ORAL TABLET 423698 HYDROCHLOROTHIAZIDE Inactive PREDNISONE 20 MG ORAL TABLET Take 2 daily for 3 days and then 1 daily for 3 days PREDNISONE 20 MG ORAL TABLET 731521 PREDNISONE Inactive LISINOPRIL 5 MG ORAL TABLET 1 daily LISINOPRIL 5 MG ORAL TABLET 978431 LISINOPRIL Inactive METOPROLOL TARTRATE 25 MG ORAL TABLET 1/2 tablet twice a day METOPROLOL TARTRATE 25 MG ORAL TABLET 520971 METOPROLOL TARTRATE Inactive OMEPRAZOLE 20 MG ORAL CAPSULE DELAYED RELEASE 1 qd OMEPRAZOLE 20 MG ORAL CAPSULE DELAYED RELEASE 559035 OMEPRAZOLE Inactive SIMVASTATIN 80 MG ORAL TABLET 1/2 tablet daily SIMVASTATIN 80 MG ORAL TABLET 834530 SIMVASTATIN Inactive ASPIRIN 81 MG ORAL TABLET 1 tablet by mouth daily ASPIRIN 81 MG ORAL TABLET 806587 ASPIRIN Inactive CALCIUM 500/D 500-200 MG-UNIT ORAL TABLET one tablet daily CALCIUM 500/D 500-200 MG-UNIT ORAL TABLET CALCIUM CARBONATE-VITAMIN D Inactive BENZONATATE 200 MG ORAL CAPSULE Take 1 tablet 3 times a day as needed for cough BENZONATATE 200 MG ORAL CAPSULE 249516 BENZONATATE Inactive AZITHROMYCIN 250 MG ORAL TABLET 2 po qd x 1 day, then 1 po qd x 4 days 05/07 AZITHROMYCIN 250 MG ORAL TABLET 317960 AZITHROMYCIN Inactive Immunizations Vaccine Administration Date Value [...] CBC W/DIFF, Comp. Metabolic Panel - Chemistry potassium, serum 4.8 mmol/L 3.5-5.2 chloride, serum 101 mmol/L 98-107 blood glucose 139 mg/dL 65-95 urea nitrogen, blood 19 mg/dL 7-18 creatinine, serum 1.79 mg/dL 0.60-1.30 alanine aminotransferase (SGPT), serum 140 U/L 12-78 aspartate aminotransferase (SGOT), serum 104 U/L 15-37 calcium, serum 8.5 mg/dL 8.5-10.1 bilirubin, serum, total 0.40 mg/dL 0.00-1.00 sodium, serum 134 mmol/L 829-226 8417/05/15 carbon dioxide, venous blood 23.5 mmol/L 21.0-32.0 sodium, serum 139 mmol/L 249-926 1039/05/01 carbon dioxide, venous blood 25.2 mmol/L 21.0-32.0 potassium, serum 4.1 mmol/L 3.5-5.2 chloride, serum 104 mmol/L 98-107 blood glucose 64 mg/dL 65-95 urea nitrogen, blood 16 mg/dL 7-18 creatinine, serum 1.55 mg/dL 0.60-1.30 alanine aminotransferase (SGPT), serum 80 U/L 12-78 aspartate aminotransferase (SGOT), serum 53 U/L 15-37 calcium, serum 8.1 mg/dL 8.5-10.1 bilirubin, serum, total 0.40 mg/dL 0.00-1.00 sodium, serum 135 mmol/L 878-824 7327/05/08 carbon dioxide, venous blood 29.0 mmol/L 21.0-32.0 potassium, serum 4.8 mmol/L 3.5-5.2 chloride, serum 101 mmol/L 98-107 blood glucose 165 mg/dL 65-95 urea nitrogen, blood 19 mg/dL 7-18 creatinine, serum 1.51 mg/dL 0.60-1.30 alanine aminotransferase (SGPT), serum 65 U/L -78 aspartate aminotransferase (SGOT), serum 38 U/L 15-37 calcium, serum 8.2 mg/dL 8.5-10.1 bilirubin, serum, total 0.50 mg/dL 0.00-1.00 sodium, serum 135 mmol/L 873-553 9910/04/10 carbon dioxide, venous blood 26.1 mmol/L 21.0-32.0 [...] % 11.6-14.8 platelet count 200 10^3/MM^3 10*3/mm3 136-117 1255/05/01 hemoglobin, blood 14.9 g/dL 14.0-18.0 hematocrit, blood 45.1 % 40.0-54.0 mean corpuscular volume, RBC 99 fL 80-97 mean corpuscular hemoglobin, RBC 32.8 pg 27.0-31.2 mean corpuscular hemoglobin concentration, RBC 33.1 G/DL % 31.8- 35.4 red blood cell distribution width 13.9 % 11.6-14.8 platelet count 271 10^3/MM^3 10*3/mm3 583-815 7788/05/15 leukocyte count, blood 1.7 10^3/MM^3 10*3/mm3 4.6-10.2 [...] % 11.6-14.8 platelet count 36 10^3/MM^3 10*3/mm3 907-729 8936/05/01 neutrophils as percent of blood leukocytes 37.5 % 42.2-75.2 monocytes as percent of blood leukocytes 16.1 % 1.7-9.3 lymphocytes as percent of blood leukocytes 43.2 % 20.5-51.1 erythrocyte (RBC) count 4.56 10^6/MM^3 10*6/mm3 4.50-6.50 leukocyte count, blood 5.0 10^3/MM^3 10*3/mm3 4.6-10.2 hemoglobin, blood 15.4 g/dL 14.0-18.0 hematocrit, blood 45.4 % 40.0-54.0 mean corpuscular volume, RBC 98 fL 80-97 mean corpuscular hemoglobin, RBC 33.5 pg 27.0-31.2 mean corpuscular hemoglobin concentration, RBC 34.0 G/DL % 31.8- 35.4 red blood cell distribution width 13.8 % 11.6-14.8 platelet count 103 10^3/MM^3 10*3/mm3 241-866 0259/05/08 neutrophils as percent of blood leukocytes 44.6 % 42.2-75.2 monocytes as percent of blood leukocytes 23.3 % 1.7-9.3 lymphocytes as percent of blood leukocytes 27.9 % 20.5-51.1 erythrocyte (RBC) count 4.61 10^6/MM^3 10*6/mm3 4.50-6.50 leukocyte count, blood 1.8 10^3/MM^3 10*3/mm3 4.6-10.2 Lab Report: Comp. Metabolic Panel, CBC W/DIFF - Chemistry blood glucose 138 mg/dL 65-110 chloride, serum 104 mmol/L 98-107 potassium, serum 4.4 mmol/L 3.5-5.2 carbon dioxide, venous blood 26.3 mmol/L 21.0-32.0 sodium, serum 137 mmol/L 435-053 0889/08/16 urea nitrogen, blood 23 mg/dL 7-18 creatinine, [...] cholesterol, serum 115 mg/dL 130-200 Lab Report: SADA INFLUENZA A/B - Toxicology [...] mg/dL Encounters Code Encounter Date Provider Facility CPT-77347 Level 3 Est. Patient 14:09:25 I&C TECHNICIAN Dee Palmer APRN [facility] CPT-57218 Level 3 Est. Patient 10:53:32 [facility]C [facility] Level 3 Est. Patient 17:11:55 I&C TECHNICIAN Ismael Gracia MD [facility] CPT-00530 Level 4 Est. Patient 16:29:19 CDT Mekhi Dukes MD [facility] CPT-76434 Level 3 New Patient 17:05:24 CDT Ismael Gracia MD [facility] CPT-96738 Level 2 Est. Patient 15:43:17 CDT Mekhi Dukes MD [facility] CPT-88928 Level 3 Est. Patient 09:30:37 [facility] Level 3 Est. Patient 10:00:14 CDT Mekhi Dukes MD [facility] CPT-86292 Level 3 Est. Patient 12:24:09 CDT [facility] CPT-34562 Level 3 Est. Patient 14:34:57 CDT Prosper Arenas MD [facility] CPT-28641 Level 3 New Patient 15:44:53 I&C TECHNICIAN Mekhi Dukes MD [facility] CPT-25189 Level 3 Est. Patient 14:53:34 I&C TECHNICIAN Prosper Arenas MD [facility] CPT-64354 Level 4 Est. Patient 10:05:41 I&C TECHNICIAN [facility] CPT-09811 Level 3 Est. Patient 11:18:32 CDT [facility] CPT-80513 Level 4 Est. Patient 11:05:10 CDT Moy Garcia [facility] CPT-20550 Level 3 Est. Patient 11:08:27 I&C TECHNICIAN Luxshoaib Garcia [facility] CPT-46259 Level 4 Est. Patient 10:43:59 CDT Prosper Arenas MD [facility] CPT-07973 Level 3 Est. Patient 10:51:19 CDT [facility]67[facility] Level 3 Est. Patient 10:20:31 CDT [facility] CPT-56254 Level 3 Est. Patient 17:08:45 CDT [facility] CPT-67686 Level 2 Est. Patient 13:54:36 CDT Augustina Mata APRN [facility] CPT-09127 Level 3 Est. Patient 12:00:42 CDT Prosper Arenas MD [facility] CPT-22500 Level 3 Est. Patient 09:57:28 I&C TECHNICIAN [facility] C[facility]-98238 Level 3 Est. Patient 11:41:19 I&C TECHNICIAN [facility] CPT-67245 Level 4 Est. Patient 17:07:35 I&C TECHNICIAN [facility] CPT-82808 Level 5 Est. Patient 14:33:32 CDT [facility] CPT-10125 Level 3 Est. Patient 12:25:35 CDT Prosper Arenas MD [facility] Procedures Code Procedure Name Date Entry Date Standard Description CPT-90735 Chest, 2 views 14:17:20 I&C TECHNICIAN CPT-95197 Postop F/U Visit 14:44:45 I&C TECHNICIAN CPT-10842 Postop F/U Visit 17:20:20 I&C TECHNICIAN CPT-G0439 Subsequent Annual Wellness Exam 08:39:41 I&C TECHNICIAN CPT-000 Give Appropriate Flu Vaccine 10:13:55 I&C TECHNICIAN CPT-000 Give Immunizations Due 10:13:55 I&C TECHNICIAN CPT-68374 HGBA1C - LAB USE ONLY 09:42:47 I&C TECHNICIAN CPT-52351 TPSA - LAB USE ONLY 09:42:46 I&C TECHNICIAN CPT-51074 Venipuncture Draw Fee 09:42:46 I&C TECHNICIAN CPT-06869 Port a cath flush 13:33:18 I&C TECHNICIAN CPT-54032 First Vx - Ix admin for Medicare patients 10:42:57 I&C TECHNICIAN CPT-75719 Fluzone Preservative Free Intramuscular Suspension 10:42 :57 I&C TECHNICIAN CPT-G0438 Initial Annual Wellness Exam 10:13:55 I&C TECHNICIAN CPT-000 Give Appropriate Flu Vaccine 10:44:04 CDT CPT-000 Give Pneumovax 10:44:03 CDT CPT-87992 Port a cath flush 17:04:43 CDT CPT-98343 Prevnar 13 11:19:17 CDT CPT-60569 Fluzone Quadrivalent preservative free (>=3yrs.) 11:19: 17 CDT CPT-83975 Immunization Each Additional Inj 11:19:17 CDT CPT-04911 Immunization Single Admin 11:19:17 CDT CPT-47352 Port a cath flush 13:28:22 CDT CPT-TCMM Transitional Care Mgmt-Moderate 13:40:15 CDT CPT-G0008 Administration of Influenza Virus Vaccine 13:59:20 CDT CPT-93452 Fluzone High-Dose Intramuscular Suspension 13:59:20 CDT CPT-77856 Venipuncture Draw Fee 09:56:19 CDT CPT-OV Office Visit 15:46:10 CDT
--- OUTSIDE RECORDS SUMMARY | 2017-08-25 22:24 | XMS REPORT | Clinical Summary ---
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 mellitus without mention of complication, type II [...] type II, uncontrolled 250.02 Active Maliheh Rodrigoglari BRANCH OFFICER Diabetes mellitus without mention of complication, [...] with hyperglycemia 250.00 Active 03/21 Maliheh Ziglari BRANCH OFFICER Diabetes mellitus without mention of complication, type II or unspecified type, not stated as uncontrolled long-term use of insulin treatment V58.67 Active Luxiheh Rodrigoglari BRANCH OFFICER Long-term (current) use of insulin Diabetes mellitus, type II with hypoglycemia 250.80 Active 07/22 Maliheh Ziglari BRANCH OFFICER Diabetes mellitus with other specified manifestations, type II or unspecified type, not stated as uncontrolled 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 Maliheh Ziglari BRANCH OFFICER Diabetes mellitus with renal manifestations, type II or unspecified type, not stated as uncontrolled Wellness exam V70.0 Active Dee Palmer APRN Routine general medical examination at a health care facility Fitting and adjustment of vascular catheter V58.81 Active 02/06 Dee Palmer APRN Encounter for fitting and adjustment of vascular catheter Unawareness of hypoglycemia in diabetes mellitus, type II 250.80 Active Maliheh Rodrigoglari BRANCH OFFICER Diabetes mellitus with other specified manifestations, [...] specified as recurrent) Gastritis Inactive Maliheh Jose BRANCH OFFICER Unspecified gastritis and gastroduodenitis, without mention of [...] po qd x 4 days 05/07 AZITHROMYCIN 16328836556 Active Dee Palmer APRN Active GUAIFENESIN DM 400-20 MG ORAL TABLET 1 pill by mouth twice daily, if needed for cough DEXTROMETHORPHAN-GUAIFENESIN 68182753294 Active Dee Palmer APRN Active PREDNISONE 20 MG ORAL TABLET 2 tabs daily for 4 days, 1 tab daily for 4 days, 1/2 tab daily for 4 days PREDNISONE 00792780738 Active Dee Palmer APRN Active ASPIRIN 81 MG ORAL TABLET 1 po qd ASPIRIN 32026330426 Active Dee Palmer APRN Active CALCIUM 500/D 500-200 MG-UNIT ORAL TABLET one tablet daily CALCIUM CARBONATE-VITAMIN D 16787138358 No Longer Active Dee Palmer APRN Active HYDROCODONE-ACETAMINOPHEN 7.5-325 MG ORAL TABLET 1-2 every 4-6 hrs prn 02/25 HYDROCODONE-ACETAMINOPHEN 24888058308 Active Marina Messina BESSY Active ASPIRIN 81 MG ORAL TABLET 1 tablet by mouth daily ASPIRIN 93735929736 No Longer Active Marina King BESSY Active SIMVASTATIN 80 MG ORAL TABLET 1/2 tablet daily SIMVASTATIN 96685651081 No Longer Active Mekhi Dukes MD Active OMEPRAZOLE 20 MG ORAL CAPSULE DELAYED RELEASE 1 qd OMEPRAZOLE 02980137227 No Longer Active Mekhi Dukes MD Active METOPROLOL TARTRATE 25 MG ORAL TABLET 1/2 tablet twice a day METOPROLOL TARTRATE 86043905265 No Longer Active Mekhi Dukes MD Active LISINOPRIL 5 MG ORAL TABLET 1 daily LISINOPRIL 60222556704 No Longer Active Mekhi Dukes MD Active NOVOLOG FLEXPEN 100 UNIT/ML SUBCUTANEOUS SOLUTION PEN-INJECTOR Take 8 units with each meal, add 1u/50 for blood sugars above 150. INSULIN ASPART 86093962747 Active Moy PARISH Active GABAPENTIN 300 MG ORAL CAPSULE 1 tab BID GABAPENTIN 92453415059 Active Tami Miller RN Active PREDNISONE 20 MG ORAL TABLET Take 2 daily for 3 days and then 1 daily for 3 days PREDNISONE 06220843119 No Longer Active Moy PARISH Active BENZONATATE 200 MG ORAL CAPSULE Take 1 tablet 3 times a day as needed for cough BENZONATATE 19370638789 No Longer Active Prosper Arenas MD Active HYDROCHLOROTHIAZIDE 25 MG ORAL TABLET 1 tablet by mouth daily HYDROCHLOROTHIAZIDE 89742576403 No Longer Active Prosper Arenas MD Active ACCU-CHEK JOANNA PLUS IN VITRO STRIP check blood sugars 5x a day, before each meal and bedtime and 15 minutes after treating a low blood. sugar GLUCOSE BLOOD 48882914872 Active Moy PARISH Active LANTUS SOLOSTAR 100 UNIT/ML SUBCUTANEOUS SOLUTION PEN-INJECTOR Take 40 units at 7-8pm daily INSULIN GLARGINE 95392171644 Active Maliheh Ziglari BRANCH OFFICER Active MECLIZINE HCL 25 MG ORAL TABLET 1 daily needed for dizziness 2015 MECLIZINE HCL 54922640301 No Longer Active Maliheh Ziglari BRANCH OFFICER Active BENZONATATE 200 MG ORAL CAPSULE 1 tab, 2-3 times a day BENZONATATE 27045052744 No Longer Active Maliheh Ziglari BRANCH OFFICER Active HALOPERIDOL 0.5 MG ORAL TABLET one tablet three times a day HALOPERIDOL 88963236929 No Longer Active Maliheh Ziglari BRANCH OFFICER Active TRAZODONE HCL 50 MG ORAL TABLET three tablets at bed time TRAZODONE HCL 30852085053 No Longer [facility] BRANCH OFFICER Active REVLIMID 25 MG ORAL CAPSULE one capsule daily for 21 days then off for 7 days LENALIDOMIDE 51904770979 No Longer Active Maleh Ziglari BRANCH OFFICER Active ZITHROMAX Z-EDDIE 250 MG ORAL TABLET 2 today, then 1 daily for 4 days AZITHROMYCIN 74487761730 No Longer Active Augustina Mata SUPERVISOR SEAMING Active NOVOLIN R RELION 100 UNIT/ML INJECTION SOLUTION 30- 40 units each meal sliding scale INSULIN REGULAR HUMAN 48715303624 No Longer Active Moy Wallaceglari BRANCH OFFICER Active HYDROCODONE-ACETAMINOPHEN 5-500 MG ORAL TABLET 1-2 FOUR TIMES A DAY, PRN 2010 HYDROCODONE-ACETAMINOPHEN 24784247830 No Longer Active Prosper Arenas MD Active DOXYCYCLINE HYCLATE 100 MG ORAL CAPSULE take one capsule by mouth twice daily for ten days DOXYCYCLINE HYCLATE 90745855700 No Longer Active Mekhi Dukes MD Active DOXYCYCLINE HYCLATE 100 MG ORAL CAPSULE take one capsule by mouth twice daily for ten days DOXYCYCLINE HYCLATE 100 MG ORAL CAPSULE 1543951 DOXYCYCLINE HYCLATE Inactive HYDROCODONE-ACETAMINOPHEN 5-500 MG ORAL TABLET 1-2 FOUR TIMES A DAY, PRN 2010 HYDROCODONE-ACETAMINOPHEN 5-500 MG ORAL TABLET 555688 HYDROCODONE-ACETAMINOPHEN Inactive NOVOLIN R RELION 100 UNIT/ML INJECTION SOLUTION 30- 40 units each meal sliding scale NOVOLIN R RELION 100 UNIT/ML INJECTION SOLUTION INSULIN REGULAR HUMAN Inactive ZITHROMAX Z-EDDIE 250 MG ORAL TABLET 2 today, then 1 daily for 4 days ZITHROMAX Z-EDDIE 250 MG ORAL TABLET 739058 AZITHROMYCIN Inactive REVLIMID 25 MG ORAL CAPSULE one capsule daily for 21 days then off for 7 days REVLIMID 25 MG ORAL CAPSULE LENALIDOMIDE Inactive TRAZODONE HCL 50 MG ORAL TABLET three tablets at bed time TRAZODONE HCL 50 MG ORAL TABLET 516570 TRAZODONE HCL Inactive HALOPERIDOL 0.5 MG ORAL TABLET one tablet three times a day HALOPERIDOL 0.5 MG ORAL TABLET 129420 HALOPERIDOL Inactive BENZONATATE 200 MG ORAL CAPSULE 1 tab, 2-3 times a day BENZONATATE 200 MG ORAL CAPSULE 804821 BENZONATATE Inactive MECLIZINE HCL 25 MG ORAL TABLET 1 daily needed for dizziness 2015 MECLIZINE HCL 25 MG ORAL TABLET 829135 MECLIZINE HCL Inactive HYDROCHLOROTHIAZIDE 25 MG ORAL TABLET 1 tablet by mouth daily HYDROCHLOROTHIAZIDE 25 MG ORAL TABLET 889571 HYDROCHLOROTHIAZIDE Inactive PREDNISONE 20 MG ORAL TABLET Take 2 daily for 3 days and then 1 daily for 3 days PREDNISONE 20 MG ORAL TABLET 320219 PREDNISONE Inactive LISINOPRIL 5 MG ORAL TABLET 1 daily LISINOPRIL 5 MG ORAL TABLET 189274 LISINOPRIL Inactive METOPROLOL TARTRATE 25 MG ORAL TABLET 1/2 tablet twice a day METOPROLOL TARTRATE 25 MG ORAL TABLET 003500 METOPROLOL TARTRATE Inactive OMEPRAZOLE 20 MG ORAL CAPSULE DELAYED RELEASE 1 qd OMEPRAZOLE 20 MG ORAL CAPSULE DELAYED RELEASE 106601 OMEPRAZOLE Inactive SIMVASTATIN 80 MG ORAL TABLET 1/2 tablet daily SIMVASTATIN 80 MG ORAL TABLET 342631 SIMVASTATIN Inactive ASPIRIN 81 MG ORAL TABLET 1 tablet by mouth daily ASPIRIN 81 MG ORAL TABLET 491652 ASPIRIN Inactive CALCIUM 500/D 500-200 MG-UNIT ORAL TABLET one tablet daily CALCIUM 500/D 500-200 MG-UNIT ORAL TABLET CALCIUM CARBONATE-VITAMIN D Inactive BENZONATATE 200 MG ORAL CAPSULE Take 1 tablet 3 times a day as needed for cough BENZONATATE 200 MG ORAL CAPSULE 310546 BENZONATATE Inactive Immunizations Vaccine Administration Date Value [...] W/DIFF - Chemistry sodium, serum 137 mmol/L 068-383 7500/08/16 carbon dioxide, venous blood 26.3 mmol/L 21.0-32.0 [...] LABS - Chemistry cholesterol, serum 115 mg/dL 036-153 0832/08/18 triglyceride, serum, fasting 89 mg/dL 30-200 HDL cholesterol, serum 46 mg/dL 32-60 LDL cholesterol, serum 51 mg/dL 0-130 blood glucose 104 mg/dL 65-110 Lab Report: LIPID PANEL- REPOWER LAB - Chemistry cholesterol, serum 156 mg/dL 716-263 7944/02/20 HDL cholesterol, serum 52 mg/dL > OR=40 [...] mg/dL Encounters Code Encounter Date Provider Facility CPT-28240 Level 3 Est. Patient 14:09:25 SMASH PIECER Ryanmakenna Palmer APRN [facility] CPT-09216 Level 3 Est. Patient 10:53:32 SMASH PIECER Moy Garcia [facility] CPT-36630 Level 3 Est. Patient 17:11:55 SMASH PIECER Ismael Gracia MD [facility] CPT-01970 Level 4 Est. Patient 16:29:19 CDT Mekhi Dukes MD [facility] CPT-43154 Level 3 New Patient 17:05:24 CDT Ismael Gracia MD [facility] CPT-27990 Level 2 Est. Patient 15:43:17 CDT Mekhi Dukes MD [facility] CPT-74971 Level 3 Est. [facility] 09:30:37 [facility] Level 3 Est. Patient 10:00:14 CDT Mekhi Dukes MD [facility] CPT-37956 Level 3 Est. Patient 12:24:09 CDT [facility] Level 3 Est. Patient 14:34:57 CDT Prosper Arenas MD [facility] CPT-37303 Level 3 New Patient 15:44:53 SMASH PIECER Mekhi Dukes MD [facility] CPT-14095 Level 3 Est. Patient 14:53:34 SMASH PIECER Prosper Arenas MD [facility] CPT-69329 Level 4 Est. Patient 10:05:41 SMASH PIECER Moy Garcia [facility] CPT-78236 Level 3 Est. Patient 11:18:32 CDT [facility] CPT-56112 Level 4 Est. Patient 11:05:10 CDT [facility] CPT-75838 Level 3 Est. Patient 11:08:27 SMASH PIECER Luxshoaib Garcia [facility] CPT-03343 Level 4 Est. Patient 10:43:59 CDT Prosper Arenas MD [facility] CPT-36955 Level 3 Est. Patient 10:51:19 CDT [facility] CPT-42532 Level 3 Est. Patient 10:20:31 CDT [facility]36 Level 3 Est. Patient 17:08:45 CDT [facility] CPT-37828 Level 2 Est. Patient 13:54:36 CDT Augustina Mata APRN [facility] CPT-09497 Level 3 Est. Patient 12:00:42 CDT Prosper Arenas MD [facility] CPT-38873 Level 3 Est. Patient 09:57:28 SMASH PIECER [facility] CPT-28273 Level 3 Est. Patient 11:41:19 SMASH PIECER [facility] CPT-10984 Level 4 Est. Patient 17:07:35 [facility]EC[facility] CPT-02293 Level 5 Est. Patient 14:33:32 CDT [facility] CPT-08386 Level 3 Est. Patient 12:25:35 CDT Prosper Arenas MD [facility] Procedures Code Procedure Name Date Entry Date Standard Description CPT-78574 Chest, 2 views 14:17:20 SMASH PIECER CPT-78606 Postop F/U Visit 14:44:45 SMASH PIECER CPT-53836 Postop F/U Visit 17:20:20 SMASH PIECER CPT-G0439 Subsequent Annual Wellness Exam 08:39:41 SMASH PIECER CPT-000 Give Appropriate Flu Vaccine 10:13:55 SMASH PIECER CPT-000 Give Immunizations Due 10:13:55 SMASH PIECER CPT-37997 HGBA1C - LAB USE ONLY 09:42:47 SMASH PIECER CPT-80707 TPSA - LAB USE ONLY 09:42:46 SMASH PIECER CPT-14384 Venipuncture Draw Fee 09:42:46 SMASH PIECER CPT-13891 Port a cath flush 13:33:18 SMASH PIECER CPT-22104 First Vx - Ix admin for Medicare patients 10:42:57 SMASH PIECER CPT-32797 Fluzone Preservative Free Intramuscular Suspension 10:42 :57 SMASH PIECER CPT-G0438 Initial Annual Wellness Exam 10:13:55 SMASH PIECER CPT-000 Give Appropriate Flu Vaccine 10:44:04 CDT CPT-000 Give Pneumovax 10:44:03 CDT CPT-05851 Port a cath flush 17:04:43 CDT CPT-73828 Prevnar 13 11:19:17 CDT CPT-98902 Fluzone Quadrivalent preservative free (>=3yrs.) 11:19: 17 CDT CPT-46317 Immunization Each Additional Inj 11:19:17 CDT CPT-13992 Immunization Single Admin 11:19:17 CDT CPT-92644 Port a cath flush 13:28:22 CDT CPT-TCMM Transitional Care Mgmt-Moderate 13:40:15 CDT CPT-G0008 Administration of Influenza Virus Vaccine 13:59:20 CDT CPT-81041 Fluzone High-Dose Intramuscular Suspension 13:59:20 CDT CPT-59629 Venipuncture Draw Fee 09:56:19 CDT CPT-OV Office Visit 15:46:10 CDT
--- OUTSIDE RECORDS SUMMARY | 2017-08-25 22:25 | XMS REPORT | Clinical Summary ---
Author Author Admin, IWONA Organization [facility] Address Unknown Phone Unavailable Allergies, Adverse Reactions, Alerts Allergy Name Reaction Description Start Date Severity Status Provider ERYTHROMYCIN Stomach cramps Moderate Active Prosper Arenas MD CODEINE Critical Active Maliheh Ziglari TIRE MAINTENANCE TECHNICIAN DARVOCET Critical Active Maliheh Ziglari TIRE MAINTENANCE TECHNICIAN LEVAQUIN Critical Active Maliheh Ziglari TIRE MAINTENANCE TECHNICIAN Conditions or Problems Problem Name Problem [...] type II, uncontrolled 250.02 Active Maliheh Ziglari TIRE MAINTENANCE TECHNICIAN Diabetes mellitus without mention of complication, [...] blood sugars 3x a day GLUCOSE BLOOD 90703601075 Active Moy Ziglari TIRE MAINTENANCE TECHNICIAN Active NOVOLOG FLEXPEN 100 UNIT/ML SOPN Take 15 units with each meal, add 2u/50 for blood sugars above 150 INSULIN ASPART 91090822892 Active Moy Ziglari TIRE MAINTENANCE TECHNICIAN Active ZITHROMAX Z-EDDIE 250 MG TABS 2 today, then 1 daily for 4 days 2014 AZITHROMYCIN 65609976137 No Longer Active Augustina Mata APRN Active BENZONATATE 200 MG CAPS 1 tab, 2-3 times a day BENZONATATE 00779633107 Active Prosper Arenas MD Active LANTUS SOLOSTAR 100 UNIT/ML SOLN 30 units at 4-5pm daily INSULIN GLARGINE 98997011706 Active Moy Rodrigoglari TIRE MAINTENANCE TECHNICIAN Active NOVOLIN R RELION 100 UNIT/ML INJ SOLN 30- 40 units each meal sliding scale INSULIN REGULAR HUMAN 37113157956 No Longer Active Moy Rodrigoglrex DURANTP Active LISINOPRIL 5 MG TABS 1 daily LISINOPRIL 91695026592 Active Prosper Arenas MD Active CALCIUM 500/D 500-200 MG-UNIT TABS one tablet daily CALCIUM CARBONATE- VITAMIN D 60572588136 Active Prosper Arenas MD Active REVLIMID 25 MG CAPS one capsule daily for 21 days then off for 7 days LENALIDOMIDE 24446194190 Active Prosper Arenas MD Active HYDROCHLOROTHIAZIDE 25 MG TABS 1 tablet by mouth daily HYDROCHLOROTHIAZIDE 16829386800 Active Prosper Arenas MD Active HYDROCODONE-ACETAMINOPHEN 5-500 MG TABS 1-2 FOUR TIMES A DAY, PRN HYDROCODONE-ACETAMINOPHEN 04519760959 No Longer Active Prosper Arenas MD Active TRAZODONE HCL 50 MG TAB three tablets at bed time TRAZODONE HCL 88886661506 Active Prosper Arenas MD Active SIMVASTATIN 80 MG TABS 1/2 tablet daily SIMVASTATIN 62038273865 Active Prosper Arenas MD Active METOPROLOL TARTRATE 25 MG TABS 1/2 tablet twice a day METOPROLOL TARTRATE 00361277701 Active Prosper Arenas MD Active HALOPERIDOL 0.5 MG TABS one tablet three times a day HALOPERIDOL 74350734696 Active Prosper Arenas MD Active ASPIRIN 81 MG TAB 1 tablet by mouth daily ASPIRIN 33690164273 Active Prosper Arenas MD Active OMEPRAZOLE 20 MG CPDR 1 qd OMEPRAZOLE 14772731022 Active DARCIE Miller Active DOXYCYCLINE HYCLATE 100 MG CAPS take one capsule by mouth twice daily for ten days DOXYCYCLINE HYCLATE 79985231382 No Longer Active Mekhi Dukes MD Active DOXYCYCLINE HYCLATE 100 MG CAPS take one capsule by mouth twice daily for ten days DOXYCYCLINE HYCLATE 100 MG CAPS 761250 DOXYCYCLINE HYCLATE Inactive HYDROCODONE-ACETAMINOPHEN 5-500 MG TABS [...] days 2014 ZITHROMAX Z-EDDIE 250 MG TABS 2516357 AZITHROMYCIN Inactive Immunizations Vaccine Administration Date Value [...] on flowsheet - Hematology leukocyte count, blood 5.3 10*3/mm3 hemoglobin, blood 14.0 g/dL platelet count 240 10*3/mm3 Lab Report: Basic Metabolic Panel - Chemistry sodium, serum 137 mmol/L 339-619 9530/08/22 potassium, serum 4.0 mmol/L 3.5-5.2 chloride, serum 100 mmol/L 98-107 carbon dioxide, venous blood 27.9 mmol/L 21.0-32.0 blood glucose 109 mg/dL 65-110 calcium, serum 9.0 mg/dL 8.5-10.1 urea nitrogen, blood 15 mg/dL 7-18 creatinine, serum 2.00 mg/dL 0.60-1.30 Lab Report: Basic Metabolic Panel, HGBA1C - Chemistry sodium, serum 134 mmol/L 828-667 7731/01/27 potassium, serum 4.1 mmol/L 3.5-5.2 chloride, serum 96 mmol/L 98-107 carbon dioxide, venous blood 35.1 mmol/L 21.0-32.0 blood glucose 346 mg/dL 65-110 calcium, serum 8.4 mg/dL 8.5-10.1 urea nitrogen, blood 18 mg/dL 7-18 creatinine, serum 2.00 mg/dL 0.60-1.30 hemoglobin A1C, blood, as % of total hemoglobin 8.4 % 4.3-6.0 Lab Report: CBC W/DIFF, Comp. Metabolic Panel - Chemistry sodium, serum 137 mmol/L 663-039 8787/01/21 potassium, serum 4.1 mmol/L 3.5-5.2 chloride, serum 99 mmol/L 98-107 carbon dioxide, venous blood 30.9 mmol/L 21.0-32.0 blood glucose 303 mg/dL 65-110 urea nitrogen, blood 19 mg/dL 7-18 creatinine, serum 2.00 mg/dL 0.60-1.30 alanine aminotransferase (SGPT), serum 84 U/L 12-78 aspartate aminotransferase (SGOT), serum 41 U/L 15-37 calcium, serum 7.8 mg/dL 8.5-10.1 bilirubin, serum, total 0.50 mg/dL 0.00-1.00 sodium, serum 131 mmol/L 294-963 7980/03/18 potassium, serum 4.4 mmol/L 3.5-5.2 chloride, serum 95 mmol/L 98-107 carbon dioxide, venous blood 19.0 mmol/L 21.0-32.0 blood glucose 297 mg/dL 65-110 urea nitrogen, blood 19 mg/dL 7-18 creatinine, serum 1.70 mg/dL 0.60-1.30 alanine aminotransferase (SGPT), serum 184 U/L -78 aspartate aminotransferase (SGOT), serum 177 U/L 15-37 calcium, serum 7.8 mg/dL 8.5-10.1 bilirubin, serum, total 0.50 mg/dL 0.00-1.00 sodium, serum 135 mmol/L 989-812 3355/11/26 potassium, serum 4.4 mmol/L 3.5-5.2 chloride, serum [...] % 11.6-14.8 platelet count 172 10^3/MM^3 10*3/mm3 589-088 8618/01/21 leukocyte count, blood 6.3 10^3/MM^3 10*3/mm3 4.6-10.2 [...] % 11.6-14.8 platelet count 137 10^3/MM^3 10*3/mm3 348-107 4256/03/18 leukocyte count, blood 4.8 10^3/MM^3 10*3/mm3 4.6-10.2 [...] Ag - Chemistry sodium, serum 131 mmol/L 660-085 6879/10/13 potassium, serum 3.6 mmol/L 3.5-5.2 chloride, serum [...] 0.60 mg/dL 0.00-1.00 cholesterol, serum 98 mg/dL 347-231 4984/10/13 triglyceride, serum, fasting 125 mg/dL 30-200 HDL [...] mg/dL Encounters Code Encounter Date Provider Facility CPT-81356 Level 3 Est. Patient 17:08:45 CDT Moy Garcia [facility] CPT-22379 Level 2 Est. Patient 13:54:36 CDT Augustina Mata BESSY [facility] CPT-09230 Level 3 Est. Patient 12:00:42 CDT Prosper Arenas MD [facility] CPT-17035 Level 3 Est. Patient 09:57:28 [facility] CPT-56794 Level 3 Est. Patient 11:41:19 GLASS MECHANIC [facility] Level 4 Est. Patient 17:07:35 GLASS MECHANIC [facility] CPT-49577 Level 5 Est. Patient 14:33:32 CDT [facility] CPT-76967 Level 3 Est. Patient 12:25:35 CDT Prosper Arenas MD [facility] Procedures Code Procedure Name Date Entry Date Standard Description CPT-TCMM Transitional Care Mgmt-Moderate 13:40:15 CDT CPT-G0008 Administration of Influenza Virus Vaccine 13:59:20 CDT CPT-69840 Fluzone High-Dose Intramuscular Suspension 13:59:20 CDT CPT-09819 Venipuncture Draw Fee 09:56:19 CDT CPT-OV Office Visit 15:46:10 CDT
--- OUTSIDE RECORDS SUMMARY | 2017-08-25 22:26 | XMS REPORT | Clinical Summary ---
Author Author Admin, IWONA Organization [employer] Address Unknown Phone Unavailable Allergies, Adverse Reactions, Alerts Allergy Name Reaction Description Start Date Severity Status Provider ERYTHROMYCIN Stomach cramps Moderate Active Prosper Arenas MD CODEINE Critical Active Maliheh Ziglari NON DESTRUCTIVE TESTING SPECIALIST DARVOCET Critical Active Maliheh Ziglari NON DESTRUCTIVE TESTING SPECIALIST LEVAQUIN Critical Active Maliheh Ziglari NON DESTRUCTIVE TESTING SPECIALIST Conditions or Problems Problem Name Problem Code Onset Date Status Entry Date Provider Comment Standard Description Annotate Diabetes, Type 2 250.00 Resolved 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, type II [...] type II, uncontrolled 250.02 Active Maliheh Rodrigoglari NON DESTRUCTIVE TESTING SPECIALIST Diabetes mellitus without mention of complication, type [...] with hyperglycemia 250.00 Active 03/21 Maliheh Ziglari NON DESTRUCTIVE TESTING SPECIALIST Diabetes mellitus without mention of complication, type II or unspecified type, not stated as uncontrolled long-term use of insulin treatment V58.67 Active Luxiheh Rodrigoglari NON DESTRUCTIVE TESTING SPECIALIST Long-term (current) use of insulin Diabetes mellitus, type II with hypoglycemia 250.80 Active 07/22 Maliheh Ziglari NON DESTRUCTIVE TESTING SPECIALIST Diabetes mellitus with other specified manifestations, type II or unspecified type, not stated as uncontrolled 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 Maliheh Ziglari NON DESTRUCTIVE TESTING SPECIALIST Diabetes mellitus with renal manifestations, type II or unspecified type, not stated as uncontrolled Wellness exam V70.0 Active Dee Palmer APRN Routine general medical examination at a health care facility Fitting and adjustment of vascular catheter V58.81 Active 02/06 Dee Palmer APRN Encounter for fitting and adjustment of vascular catheter Unawareness of hypoglycemia in diabetes mellitus, type II 250.80 Active Maliheh Ziglari NON DESTRUCTIVE TESTING SPECIALIST Diabetes mellitus with other specified manifestations, type [...] MG ORAL TABLET 1/2 tablet daily SIMVASTATIN 71061789656 No Longer Active Mekhi Dukes MD Active OMEPRAZOLE 20 MG ORAL CAPSULE DELAYED RELEASE 1 qd OMEPRAZOLE 10406039799 No Longer Active Mekhi Dukes MD Active METOPROLOL TARTRATE 25 MG ORAL TABLET 1/2 tablet twice a day METOPROLOL TARTRATE 24372672689 No Longer Active Mekhi Dukes MD Active LISINOPRIL 5 MG ORAL TABLET 1 daily LISINOPRIL 19273173461 No Longer Active Mekhi Dukes MD Active NOVOLOG FLEXPEN 100 UNIT/ML SUBCUTANEOUS SOLUTION PEN-INJECTOR Take 8 units with each meal, add 1u/50 for blood sugars above 150. INSULIN ASPART 64964578769 Active Moy PARISH Active GABAPENTIN 300 MG ORAL CAPSULE 1 tab BID GABAPENTIN 92279998649 Active Tami Miller RN Active PREDNISONE 20 MG ORAL TABLET Take 2 daily for 3 days and then 1 daily for 3 days PREDNISONE 00941941189 No Longer Active Moy PARISH Active BENZONATATE 200 MG ORAL CAPSULE Take 1 tablet 3 times a day as needed for cough BENZONATATE 36711050858 No Longer Active Prosper Arenas MD Active HYDROCHLOROTHIAZIDE 25 MG ORAL TABLET 1 tablet by mouth daily HYDROCHLOROTHIAZIDE 46669263432 No Longer Active Prosper Arenas MD Active ACCU-CHEK JOANNA PLUS IN VITRO STRIP check blood sugars 5x a day, before each meal and bedtime and 15 minutes after treating a low blood. sugar GLUCOSE BLOOD 16033302411 Active Malpapo Wallaceglrex PARISH Active LANTUS SOLOSTAR 100 UNIT/ML SUBCUTANEOUS SOLUTION PEN-INJECTOR Take 40 units at 7-8pm daily INSULIN GLARGINE 58020482371 Active Moy Ziglari NON DESTRUCTIVE TESTING SPECIALIST Active MECLIZINE HCL 25 MG ORAL TABLET 1 daily needed for dizziness 2015 MECLIZINE HCL 08223193355 No Longer Active Maleh Ziglari NON DESTRUCTIVE TESTING SPECIALIST Active BENZONATATE 200 MG ORAL CAPSULE 1 tab, 2-3 times a day BENZONATATE 52381265947 No Longer Active [facility] Ziglari NON DESTRUCTIVE TESTING SPECIALIST Active HALOPERIDOL 0.5 MG ORAL TABLET one tablet three times a day HALOPERIDOL 81501207214 No Longer Active [facility] Ziglari NON DESTRUCTIVE TESTING SPECIALIST Active TRAZODONE HCL 50 MG ORAL TABLET three tablets at bed time TRAZODONE HCL 54428432320 No Longer Active [facility] Ziglari NON DESTRUCTIVE TESTING SPECIALIST Active REVLIMID 25 MG ORAL CAPSULE one capsule daily for 21 days then off for 7 days LENALIDOMIDE 68272778831 No Longer Active [facility] Ziglari NON DESTRUCTIVE TESTING SPECIALIST Active ZITHROMAX Z-EDDIE 250 MG ORAL TABLET 2 today, then 1 daily for 4 days AZITHROMYCIN 45071426081 No Longer Active Augustina Adolfo DOHERTY Active NOVOLIN R RELION 100 UNIT/ML INJECTION SOLUTION 30- 40 units each meal sliding scale INSULIN REGULAR HUMAN 83721804158 No Longer Active Moy Rodrigoglari NON DESTRUCTIVE TESTING SPECIALIST Active CALCIUM 500/D 500-200 MG-UNIT ORAL TABLET one tablet daily CALCIUM CARBONATE-VITAMIN D 54407096630 Active Prosper Arenas MD Active HYDROCODONE-ACETAMINOPHEN 5-500 MG ORAL TABLET 1-2 FOUR TIMES A DAY, PRN 2010 HYDROCODONE-ACETAMINOPHEN 12975797685 No Longer Active Prosper Arenas MD Active ASPIRIN 81 MG ORAL TABLET 1 tablet by mouth daily ASPIRIN 56339671187 Active Prosper Arenas MD Active DOXYCYCLINE HYCLATE 100 MG ORAL CAPSULE take one capsule by mouth twice daily for ten days DOXYCYCLINE HYCLATE 93123397384 No Longer Active Mekhi Dukes MD Active DOXYCYCLINE HYCLATE 100 MG ORAL CAPSULE take one capsule by mouth twice daily for ten days DOXYCYCLINE HYCLATE 100 MG ORAL CAPSULE 7019702 DOXYCYCLINE HYCLATE Inactive HYDROCODONE-ACETAMINOPHEN 5-500 MG ORAL TABLET 1-2 FOUR TIMES A DAY, PRN 2010 HYDROCODONE-ACETAMINOPHEN 5-500 MG ORAL TABLET 207942 HYDROCODONE-ACETAMINOPHEN Inactive NOVOLIN R RELION 100 UNIT/ML INJECTION SOLUTION 30- 40 units each meal sliding scale NOVOLIN R RELION 100 UNIT/ML INJECTION SOLUTION INSULIN REGULAR HUMAN Inactive ZITHROMAX Z-EDDIE 250 MG ORAL TABLET 2 today, then 1 daily for 4 days ZITHROMAX Z-EDDIE 250 MG ORAL TABLET 762428 AZITHROMYCIN Inactive REVLIMID 25 MG ORAL CAPSULE one capsule daily for 21 days then off for 7 days REVLIMID 25 MG ORAL CAPSULE LENALIDOMIDE Inactive TRAZODONE HCL 50 MG ORAL TABLET three tablets at bed time TRAZODONE HCL 50 MG ORAL TABLET 612687 TRAZODONE HCL Inactive HALOPERIDOL 0.5 MG ORAL TABLET one tablet three times a day HALOPERIDOL 0.5 MG ORAL TABLET 263240 HALOPERIDOL Inactive BENZONATATE 200 MG ORAL CAPSULE 1 tab, 2-3 times a day BENZONATATE 200 MG ORAL CAPSULE 530869 BENZONATATE Inactive MECLIZINE HCL 25 MG ORAL TABLET 1 daily needed for dizziness 2015 MECLIZINE HCL 25 MG ORAL TABLET 834883 MECLIZINE HCL Inactive HYDROCHLOROTHIAZIDE 25 MG ORAL TABLET 1 tablet by mouth daily HYDROCHLOROTHIAZIDE 25 MG ORAL TABLET 771066 HYDROCHLOROTHIAZIDE Inactive PREDNISONE 20 MG ORAL TABLET Take 2 daily for 3 days and then 1 daily for 3 days PREDNISONE 20 MG ORAL TABLET 797017 PREDNISONE Inactive LISINOPRIL 5 MG ORAL TABLET 1 daily LISINOPRIL 5 MG ORAL TABLET 656422 LISINOPRIL Inactive METOPROLOL TARTRATE 25 MG ORAL TABLET 1/2 tablet twice a day METOPROLOL TARTRATE 25 MG ORAL TABLET 192240 METOPROLOL TARTRATE Inactive OMEPRAZOLE 20 MG ORAL CAPSULE DELAYED RELEASE 1 qd OMEPRAZOLE 20 MG ORAL CAPSULE DELAYED RELEASE 195916 OMEPRAZOLE Inactive SIMVASTATIN 80 MG ORAL TABLET 1/2 tablet daily SIMVASTATIN 80 MG ORAL TABLET 786536 SIMVASTATIN Inactive BENZONATATE 200 MG ORAL CAPSULE Take 1 tablet 3 times a day as needed for cough BENZONATATE 200 MG ORAL CAPSULE 225689 BENZONATATE Inactive Immunizations Vaccine Administration Date Value [...] W/DIFF - Chemistry sodium, serum 137 mmol/L 324-797 5653/08/16 carbon dioxide, venous blood 26.3 mmol/L 21.0-32.0 [...] LABS - Chemistry cholesterol, serum 115 mg/dL 980-456 9866/08/18 triglyceride, serum, fasting 89 mg/dL 30-200 HDL cholesterol, serum 46 mg/dL 32-60 LDL cholesterol, serum 51 mg/dL 0-130 blood glucose 104 mg/dL 65-110 Lab Report: LIPID PANEL- REPOWER LAB - Chemistry cholesterol, serum 156 mg/dL 754-677 7482/02/20 HDL cholesterol, serum 52 mg/dL > OR=40 [...] mg/dL Encounters Code Encounter Date Provider Facility CPT-35335 Level 3 Est. Patient 17:11:55 COTTON OPENER Ismael Gracia MD [facility] CPT-46407 Level 4 Est. Patient 16:29:19 CDT Mekhi Dukes MD [facility] CPT-21748 Level 3 New Patient 17:05:24 CDT Ismael Gracia MD [facility] CPT-61848 Level 2 Est. Patient 15:43:17 CDT Mekhi Dukes MD [facility] CPT-76546 Level 3 Est. Patient 09:30:[address] [facility]-05703 Level 3 Est. Patient 10:00:14 CDT Mekhi Dukes MD [facility] CPT-36617 Level 3 Est. Patient 12:24:[address] [facility]-30513 Level 3 Est. Patient 14:34:57 CDT Prosper Arenas MD [facility] CPT-62485 Level 3 New Patient 15:44:53 COTTON OPENER Mekhi Dukes MD [facility]-73704 Level 3 Est. Patient 14:53:34 COTTON OPENER Prosper Arenas MD [facility] CPT-57269 Level 4 Est. Patient 10:05:41 COTTON OPENER [address] [facility]-51654 Level 3 Est. [facility] Level 4 Est. Patient 11:05:10 CDT Moy Garcia [facility] CPT-60858 Level 3 Est. Patient 11:08:27 COTTON OPENER Moy Garcia [facility] CPT-77257 Level 4 Est. Patient 10:43:59 CDT Prosper Arenas MD [facility] CPT-65223 Level 3 Est. Patient 10:51:19 CDT Moy Garcia [facility] CPT-32364 Level 3 Est. Patient 10:20:31 CDT Moy Garcia [facility] CPT-03178 Level 3 Est. Patient 17:08:45 CDT Moy Garcia [facility] CPT-85659 Level 2 Est. Patient 13:54:36 CDT Augustina Mata APRN [facility] CPT-30462 Level 3 Est. Patient 12:00:42 CDT Prosper Arenas MD [facility] CPT-47744 Level 3 Est. Patient 09:57:28 COTTON OPENER Moy Garcia [facility] CPT-07597 Level 3 Est. Patient 11:41:19 COTTON OPENER Moy Garcia [facility] CPT-63417 Level 4 Est. Patient 17:07:35 COTTON OPENER Moy Garcia [facility] CPT-51648 Level 5 Est. Patient 14:33:32 CDT Moy Wallacerex [facility] CPT-43495 Level 3 Est. Patient 12:25:35 CDT Prosper Arenas MD [facility] Procedures Code Procedure Name Date Entry Date Standard Description CPT-G0439 Subsequent Annual Wellness Exam 08:39:41 COTTON OPENER CPT-000 Give Appropriate Flu Vaccine 10:13:55 COTTON OPENER CPT-000 Give Immunizations Due 10:13:55 COTTON OPENER CPT-07424 HGBA1C - LAB USE ONLY 09:42:47 COTTON OPENER CPT-17957 TPSA - LAB USE ONLY 09:42:46 COTTON OPENER CPT-59706 Venipuncture Draw Fee 09:42:46 COTTON OPENER CPT-85155 Port a cath flush 13:33:18 COTTON OPENER CPT-56449 First Vx - Ix admin for Medicare patients 10:42:57 COTTON OPENER CPT-10529 Fluzone Preservative Free Intramuscular Suspension 10:42 :57 COTTON OPENER CPT-G0438 Initial Annual Wellness Exam 10:13:55 COTTON OPENER CPT-000 Give Appropriate Flu Vaccine 10:44:04 CDT CPT-000 Give Pneumovax 10:44:03 CDT CPT-56330 Port a cath flush 17:04:43 CDT CPT-69152 Prevnar 13 11:19:17 CDT CPT-30667 Fluzone Quadrivalent preservative free (>=3yrs.) 11:19: 17 CDT CPT-52641 Immunization Each Additional Inj 11:19:17 CDT CPT-55677 Immunization Single Admin 11:19:17 CDT CPT-25508 Port a cath flush 13:28:22 CDT CPT-TCMM Transitional Care Mgmt-Moderate 13:40:15 CDT CPT-G0008 Administration of Influenza Virus Vaccine 13:59:20 CDT CPT-25667 Fluzone High-Dose Intramuscular Suspension 13:59:20 CDT CPT-48935 Venipuncture Draw Fee 09:56:19 CDT CPT-OV Office Visit 15:46:10 CDT
--- OUTSIDE RECORDS SUMMARY | 2017-08-25 22:27 | XMS REPORT | Clinical Summary ---
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, type [...] type II, uncontrolled 250.02 Active Maliheh Rodrigoglari OCCUPATIONAL ANALYST Diabetes mellitus without mention of complication, [...] with hyperglycemia 250.00 Active 03/21 Maliheh Ziglari OCCUPATIONAL ANALYST Diabetes mellitus without mention of complication, type II or unspecified type, not stated as uncontrolled intermediate use of insulin treatment V58.67 Active Luxiheh Rodrigoglari OCCUPATIONAL ANALYST Long-term (current) use of insulin Diabetes mellitus, type II with hypoglycemia 250.80 Active 07/22 Maliheh Ziglari OCCUPATIONAL ANALYST Diabetes mellitus with other specified manifestations, type II or unspecified type, not stated as uncontrolled 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 INSULIN ASPART 25672323101 Active Moy DURANTP Active GABAPENTIN 300 MG ORAL CAPS 1 tab BID GABAPENTIN 77228268780 Active Tami Miller RN Active PREDNISONE 20 MG TABS Take 2 daily for 3 days and then 1 daily for 3 days PREDNISONE 75830531265 No Longer Active Maliheh Ziglari OCCUPATIONAL ANALYST Active BENZONATATE 200 MG CAPS Take 1 tablet 3 times a day as needed for cough 07/29 BENZONATATE 73152302578 No Longer Active Prosper Arenas MD Active HYDROCHLOROTHIAZIDE 25 MG TABS 1 tablet by mouth daily HYDROCHLOROTHIAZIDE 12455033191 No Longer Active Prosper Arenas MD Active ACCU-CHEK JOANNA PLUS STRP check blood sugars 5x a day, before each meal and bedtime and 15 minutes after treating a low blood. sugar GLUCOSE BLOOD 31930511342 Active Maliheh Ziglari OCCUPATIONAL ANALYST Active LANTUS SOLOSTAR 100 UNIT/ML SOLN Take 40 units at 7-8pm daily INSULIN GLARGINE 20847794337 Active Maliheh Ziglari OCCUPATIONAL ANALYST Active MECLIZINE HCL 25 MG TABS 1 daily needed for dizziness MECLIZINE HCL 30281070958 No Longer Active Maliheh Ziglari OCCUPATIONAL ANALYST Active BENZONATATE 200 MG CAPS 1 tab, 2-3 times a day BENZONATATE 48555188255 No Longer Active Maliheh Ziglari OCCUPATIONAL ANALYST Active HALOPERIDOL 0.5 MG TABS one tablet three times a day HALOPERIDOL 20545283539 No Longer Active Maliheh Ziglari OCCUPATIONAL ANALYST Active TRAZODONE HCL 50 MG TAB three tablets at bed time TRAZODONE HCL 96707403666 No Longer Active Maliheh Ziglari OCCUPATIONAL ANALYST Active REVLIMID 25 MG CAPS one capsule daily for 21 days then off for 7 days 2014 LENALIDOMIDE 51841478275 No Longer Active Maliheh Ziglari OCCUPATIONAL ANALYST Active ZITHROMAX Z-EDDIE 250 MG TABS 2 today, then 1 daily for 4 days 2014 AZITHROMYCIN 32782765530 No Longer Active Augustina Mata MEDICAL PATHOLOGIST Active NOVOLIN R RELION 100 UNIT/ML INJ SOLN 30- 40 units each meal sliding scale INSULIN REGULAR HUMAN 55625123744 No Longer Active Moy PARISH Active LISINOPRIL 5 MG TABS 1 daily LISINOPRIL 85469228615 Active Prosper Arenas MD Active CALCIUM 500/D 500-200 MG-UNIT TABS one tablet daily CALCIUM CARBONATE- VITAMIN D 73263983870 Active Prosper Arenas MD Active HYDROCODONE-ACETAMINOPHEN 5-500 MG TABS 1-2 FOUR TIMES A DAY, PRN HYDROCODONE-ACETAMINOPHEN 25131577015 No Longer Active Prosper Arenas MD Active SIMVASTATIN 80 MG TABS 1/2 tablet daily SIMVASTATIN 41954592588 Active Prosper Arenas MD Active METOPROLOL TARTRATE 25 MG TABS 1/2 tablet twice a day METOPROLOL TARTRATE 46644468234 Active Prosper Arenas MD Active ASPIRIN 81 MG TAB 1 tablet by mouth daily ASPIRIN 92012375483 Active Prosper Arenas MD Active OMEPRAZOLE 20 MG CPDR 1 qd OMEPRAZOLE 80682390657 Active DARCIE Miller Active DOXYCYCLINE HYCLATE 100 MG CAPS take one capsule by mouth twice daily for ten days DOXYCYCLINE HYCLATE 09870958299 No Longer Active Mekhi Dukes MD Active DOXYCYCLINE HYCLATE 100 MG CAPS take one capsule by mouth twice daily for ten days DOXYCYCLINE HYCLATE 100 MG CAPS 5850858 DOXYCYCLINE HYCLATE Inactive HYDROCODONE-ACETAMINOPHEN 5-500 MG TABS [...] days 2014 ZITHROMAX Z-EDDIE 250 MG TABS 2338775 AZITHROMYCIN Inactive REVLIMID 25 MG CAPS one capsule daily for 21 days then off for 7 days 2014 REVLIMID 25 MG CAPS LENALIDOMIDE Inactive TRAZODONE HCL 50 MG TAB three tablets at bed time TRAZODONE HCL 50 MG TAB 800745 TRAZODONE HCL Inactive HALOPERIDOL 0.5 MG TABS one tablet three times a day HALOPERIDOL 0.5 MG TABS 205357 HALOPERIDOL Inactive BENZONATATE 200 MG CAPS 1 tab, 2-3 times a day BENZONATATE 200 MG CAPS 895575 BENZONATATE Inactive MECLIZINE HCL 25 MG TABS 1 daily needed for dizziness MECLIZINE HCL 25 MG TABS 752290 MECLIZINE HCL Inactive HYDROCHLOROTHIAZIDE 25 MG TABS 1 tablet by mouth daily HYDROCHLOROTHIAZIDE 25 MG TABS 387240 HYDROCHLOROTHIAZIDE Inactive PREDNISONE 20 MG TABS Take 2 daily for 3 days and then 1 daily for 3 days PREDNISONE 20 MG TABS 571344 PREDNISONE Inactive BENZONATATE 200 MG CAPS Take 1 tablet 3 times a day as needed for cough 07/29 BENZONATATE 200 MG CAPS 359872 BENZONATATE Inactive Immunizations Vaccine Administration Date Value [...] W/DIFF - Chemistry sodium, serum 137 mmol/L 368-514 2840/08/16 carbon dioxide, venous blood 26.3 mmol/L 21.0-32.0 [...] LABS - Chemistry cholesterol, serum 115 mg/dL 322-531 5342/08/18 triglyceride, serum, fasting 89 mg/dL 30-200 HDL cholesterol, serum 46 mg/dL 32-60 LDL cholesterol, serum 51 mg/dL 0-130 blood glucose 104 mg/dL 65-110 Lab Report: LIPID PANEL- REPOWER LAB - Chemistry cholesterol, serum 156 mg/dL 673-527 8925/02/20 HDL cholesterol, serum 52 mg/dL > OR=40 [...] mg/dL Encounters Code Encounter Date Provider Facility CPT-33399 Level 3 Est. Patient 09:30:37 CDT [facility] CPT-46479 Level 3 Est. Patient 10:00:14 CDT Mekhi Dukes MD [facility] CPT-08134 Level 3 Est. Patient 12:24:09 CDT [facility] CPT-37989 Level 3 Est. Patient 14:34:57 CDT Prosper Arenas MD [facility] CPT-40779 Level 3 New Patient 15:44:53 REVIEW SCHEDULING COORDINATOR Mekhi Dukes MD [facility] CPT-23539 Level 3 Est. Patient 14:53:34 REVIEW SCHEDULING COORDINATOR Prosper Arenas MD [facility] CPT-22899 Level 4 Est. Patient 10:05:41 REVIEW SCHEDULING COORDINATOR [facility] CPT-08068 Level 3 Est. Patient 11:18:32 CDT [facility] CPT-52331 Level 4 Est. Patient 11:05:10 CDT [facility] CPT-34134 Level 3 Est. Patient 11:08:27 REVIEW SCHEDULING COORDINATOR [facility] CPT-04574 Level 4 Est. Patient 10:43:59 CDT Prosper Arenas MD [facility] CPT-14519 Level 3 Est. Patient 10:51:19 CDT Moy Garcia [facility] CPT-33509 Level 3 Est. Patient 10:20:31 CDT Moy Garcia [facility] CPT-31771 Level 3 Est. Patient 17:08:45 CDT Moy Garcia [facility] CPT-23110 Level 2 Est. Patient 13:54:36 CDT Augustina Mata BESSY [facility] CPT-77138 Level 3 Est. Patient 12:00:42 CDT Prosper Arenas MD [facility] CPT-52716 Level 3 Est. Patient 09:57:28 REVIEW SCHEDULING COORDINATOR Moy Garcia [facility] CPT-30940 Level 3 Est. Patient 11:41:19 REVIEW SCHEDULING COORDINATOR [facility] Level 4 Est. Patient 17:07:35 REVIEW SCHEDULING COORDINATOR [facility] CPT-61611 Level 5 Est. Patient 14:33:32 [facility] Level 3 Est. Patient 12:25:35 CDT Prosper Arenas MD [facility] Procedures Code Procedure Name Date Entry Date Standard Description CPT-000 Give Appropriate Flu Vaccine 10:13:55 REVIEW SCHEDULING COORDINATOR CPT-000 Give Immunizations Due 10:13:55 REVIEW SCHEDULING COORDINATOR CPT-49998 HGBA1C - LAB USE ONLY 09:42:47 REVIEW SCHEDULING COORDINATOR CPT-01068 TPSA - LAB USE ONLY 09:42:46 REVIEW SCHEDULING COORDINATOR CPT-93197 Venipuncture Draw Fee 09:42:46 REVIEW SCHEDULING COORDINATOR CPT-47019 Port a cath flush 13:33:18 REVIEW SCHEDULING COORDINATOR CPT-57193 First Vx - Ix admin for Medicare patients 10:42:57 REVIEW SCHEDULING COORDINATOR CPT-84480 Fluzone Preservative Free Intramuscular Suspension 10:42 :57 REVIEW SCHEDULING COORDINATOR CPT-G0438 Initial Annual Wellness Exam 10:13:55 REVIEW SCHEDULING COORDINATOR CPT-000 Give Appropriate Flu Vaccine 10:44:04 CDT CPT-000 Give Pneumovax 10:44:03 CDT CPT-53579 Port a cath flush 17:04:43 CDT CPT-47954 Prevnar 13 11:19:17 CDT CPT-00111 Fluzone Quadrivalent preservative free (>=3yrs.) 11:19: 17 CDT CPT-96968 Immunization Each Additional Inj 11:19:17 CDT CPT-45578 Immunization Single Admin 11:19:17 CDT CPT-11214 Port a cath flush 13:28:22 CDT CPT-TCMM Transitional Care Mgmt-Moderate 13:40:15 CDT CPT-G0008 Administration of Influenza Virus Vaccine 13:59:20 CDT CPT-63103 Fluzone High-Dose Intramuscular Suspension 13:59:20 CDT CPT-10107 Venipuncture Draw Fee 09:56:19 CDT CPT-OV Office Visit 15:46:10 CDT
--- OUTSIDE RECORDS SUMMARY | 2017-08-25 22:28 | XMS REPORT | Clinical Summary ---
Author Author Admin, IWONA Organization [facility] [employer] Address Unknown Phone Unavailable Allergies, Adverse Reactions, Alerts Allergy Name Reaction Description Start Date Severity Status Provider ERYTHROMYCIN Stomach cramps Moderate Active Prosper Arenas MD CODEINE Critical Active Maliheh Ziglari STEEL FIXER DARVOCET Critical Active Maliheh Ziglari STEEL FIXER LEVAQUIN Critical Active Maliheh Ziglari STEEL FIXER Conditions or Problems Problem Name Problem Code Onset Date Status Entry Date Provider Comment Standard Description Annotate Diabetes, Type 2 250.00 Resolved Tami Miller client services director mellitus without mention of complication, type [...] type II, uncontrolled 250.02 Active Maliheh Ziglari STEEL FIXER Diabetes mellitus without mention of complication, type [...] with hyperglycemia 250.00 Active 03/21 Maliheh Ziglari STEEL FIXER Diabetes mellitus without mention of complication, type II or unspecified type, not stated as uncontrolled residential use of insulin treatment V58.67 Active Luxiheh Rodrigoglari STEEL FIXER Long-term (current) use of insulin Diabetes mellitus, type II with hypoglycemia 250.80 Active 07/22 Maliheh Ziglari STEEL FIXER Diabetes mellitus with other specified manifestations, type II or unspecified type, not stated as uncontrolled 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 Maliheh Ziglari STEEL FIXER Diabetes mellitus with renal manifestations, type II or unspecified type, not stated as uncontrolled Wellness exam V70.0 Active Dee Palmer APRN Routine general medical examination at a health care facility Fitting and adjustment of vascular catheter V58.81 Active 02/06 Dee Palmer APRN Encounter for fitting and adjustment of vascular catheter Unawareness of hypoglycemia in diabetes mellitus, type II 250.80 Active Maliheh Rodrigoglari STEEL FIXER Diabetes mellitus with other specified manifestations, type [...] specified as recurrent) Gastritis Inactive Maliheh Ziglari STEEL FIXER Unspecified gastritis and gastroduodenitis, without mention of [...] po qd x 4 days 05/07 AZITHROMYCIN 18689808445 No Longer Active Dee Palmer APRN Active GUAIFENESIN DM 400-20 MG ORAL TABLET 1 pill by mouth twice daily, if needed for cough DEXTROMETHORPHAN-GUAIFENESIN 13377345889 Active Dee Palmer APRN Active PREDNISONE 20 MG ORAL TABLET 2 tabs daily for 4 days, 1 tab daily for 4 days, 1/2 tab daily for 4 days PREDNISONE 56586328805 Active Dee Palmer APRN Active ASPIRIN 81 MG ORAL TABLET 1 po qd ASPIRIN 23762405156 Active Dee Palmer APRN Active CALCIUM 500/D 500-200 MG-UNIT ORAL TABLET one tablet daily CALCIUM CARBONATE-VITAMIN D 80284036118 No Longer Active Dee Palmer APRN Active HYDROCODONE-ACETAMINOPHEN 7.5-325 MG ORAL TABLET 1-2 every 4-6 hrs prn 02/25 HYDROCODONE-ACETAMINOPHEN 73264305986 [facility] ASP[facility] 81 MG ORAL TABLET 1 tablet by mouth daily ASPIRIN 72589628920 No Longer Active [facility] Active SIMVASTATIN 80 MG ORAL TABLET 1/2 tablet daily SIMVASTATIN 33681556120 No Longer Active Mekhi Dukes MD Active OMEPRAZOLE 20 MG ORAL CAPSULE DELAYED RELEASE 1 qd OMEPRAZOLE 26637430077 No Longer Active Mekhi Dukes MD Active METOPROLOL TARTRATE 25 MG ORAL TABLET 1/2 tablet twice a day METOPROLOL TARTRATE 57224450107 No Longer Active Mekhi Dukes MD Active LISINOPRIL 5 MG ORAL TABLET 1 daily LISINOPRIL 15660850340 No Longer Active Mekhi Dukes MD Active NOVOLOG FLEXPEN 100 UNIT/ML SUBCUTANEOUS SOLUTION PEN-INJECTOR Take 8 units with each meal, add 1u/50 for blood sugars above 150. INSULIN ASPART 82249853426 Active Moy PARISH Active GABAPENTIN 300 MG ORAL CAPSULE 1 tab BID GABAPENTIN 33576584673 Active Tami Miller RN Active PREDNISONE 20 MG ORAL TABLET Take 2 daily for 3 days and then 1 daily for 3 days PREDNISONE 29646022560 No Longer Active Malcarissaeh Ziglari STEEL FIXER Active BENZONATATE 200 MG ORAL CAPSULE Take 1 tablet 3 times a day as needed for cough BENZONATATE 18157176442 No Longer Active Prosper Arenas MD Active HYDROCHLOROTHIAZIDE 25 MG ORAL TABLET 1 tablet by mouth daily HYDROCHLOROTHIAZIDE 12750800169 No Longer Active Prosper Arenas MD Active ACCU-CHEK JOANNA PLUS IN VITRO STRIP check blood sugars 5x a day, before each meal and bedtime and 15 minutes after treating a low blood. sugar GLUCOSE BLOOD 56375526360 Active Malpapo Wallaceglari STEEL FIXER Active LANTUS SOLOSTAR 100 UNIT/ML SUBCUTANEOUS SOLUTION PEN-INJECTOR Take 40 units at 7-8pm daily INSULIN GLARGINE 89237657126 Active Maliheh Ziglari STEEL FIXER Active MECLIZINE HCL 25 MG ORAL TABLET 1 daily needed for dizziness 2015 MECLIZINE HCL 05327881521 No Longer Active Maliheh Ziglari STEEL FIXER Active BENZONATATE 200 MG ORAL CAPSULE 1 tab, 2-3 times a day BENZONATATE 82985580949 No Longer Active Maliheh Ziglari STEEL FIXER Active HALOPERIDOL 0.5 MG ORAL TABLET one tablet three times a day HALOPERIDOL 48921763875 No Longer Active Maliheh Ziglari STEEL FIXER Active TRAZODONE HCL 50 MG ORAL TABLET three tablets at bed time TRAZODONE HCL 76789098552 No Longer Active Maleh Ziglari STEEL FIXER Active REVLIMID 25 MG ORAL CAPSULE one capsule daily for 21 days then off for 7 days LENALIDOMIDE 55076623821 No Longer Active Maliheh Ziglari STEEL FIXER Active ZITHROMAX Z-EDDIE 250 MG ORAL TABLET 2 today, then 1 daily for 4 days AZITHROMYCIN 14044470073 No Longer Active Augustina Mata SALES MANAGER Active NOVOLIN R RELION 100 UNIT/ML INJECTION SOLUTION 30- 40 units each meal sliding scale INSULIN REGULAR HUMAN 86994804924 No Longer Active Moy Ziglari STEEL FIXER Active HYDROCODONE-ACETAMINOPHEN 5-500 MG ORAL TABLET 1-2 FOUR TIMES A DAY, PRN 2010 HYDROCODONE-ACETAMINOPHEN 21626178439 No Longer Active Prosper Arenas MD Active DOXYCYCLINE HYCLATE 100 MG ORAL CAPSULE take one capsule by mouth twice daily for ten days DOXYCYCLINE HYCLATE 75138336679 No Longer Active Mekhi Dukes MD Active DOXYCYCLINE HYCLATE 100 MG ORAL CAPSULE take one capsule by mouth twice daily for ten days DOXYCYCLINE HYCLATE 100 MG ORAL CAPSULE 9644232 DOXYCYCLINE HYCLATE Inactive HYDROCODONE-ACETAMINOPHEN 5-500 MG ORAL TABLET 1-2 FOUR TIMES A DAY, PRN 2010 HYDROCODONE-ACETAMINOPHEN 5-500 MG ORAL TABLET 097599 HYDROCODONE-ACETAMINOPHEN Inactive NOVOLIN R RELION 100 UNIT/ML INJECTION SOLUTION 30- 40 units each meal sliding scale NOVOLIN R RELION 100 UNIT/ML INJECTION SOLUTION INSULIN REGULAR HUMAN Inactive ZITHROMAX Z-EDDIE 250 MG ORAL TABLET 2 today, then 1 daily for 4 days ZITHROMAX Z-EDDIE 250 MG ORAL TABLET 705449 AZITHROMYCIN Inactive REVLIMID 25 MG ORAL CAPSULE one capsule daily for 21 days then off for 7 days REVLIMID 25 MG ORAL CAPSULE LENALIDOMIDE Inactive TRAZODONE HCL 50 MG ORAL TABLET three tablets at bed time TRAZODONE HCL 50 MG ORAL TABLET 525185 TRAZODONE HCL Inactive HALOPERIDOL 0.5 MG ORAL TABLET one tablet three times a day HALOPERIDOL 0.5 MG ORAL TABLET 189574 HALOPERIDOL Inactive BENZONATATE 200 MG ORAL CAPSULE 1 tab, 2-3 times a day BENZONATATE 200 MG ORAL CAPSULE 783772 BENZONATATE Inactive MECLIZINE HCL 25 MG ORAL TABLET 1 daily needed for dizziness 2015 MECLIZINE HCL 25 MG ORAL TABLET 399572 MECLIZINE HCL Inactive HYDROCHLOROTHIAZIDE 25 MG ORAL TABLET 1 tablet by mouth daily HYDROCHLOROTHIAZIDE 25 MG ORAL TABLET 559931 HYDROCHLOROTHIAZIDE Inactive PREDNISONE 20 MG ORAL TABLET Take 2 daily for 3 days and then 1 daily for 3 days PREDNISONE 20 MG ORAL TABLET 690840 PREDNISONE Inactive LISINOPRIL 5 MG ORAL TABLET 1 daily LISINOPRIL 5 MG ORAL TABLET 234122 LISINOPRIL Inactive METOPROLOL TARTRATE 25 MG ORAL TABLET 1/2 tablet twice a day METOPROLOL TARTRATE 25 MG ORAL TABLET 707268 METOPROLOL TARTRATE Inactive OMEPRAZOLE 20 MG ORAL CAPSULE DELAYED RELEASE 1 qd OMEPRAZOLE 20 MG ORAL CAPSULE DELAYED RELEASE 006851 OMEPRAZOLE Inactive SIMVASTATIN 80 MG ORAL TABLET 1/2 tablet daily SIMVASTATIN 80 MG ORAL TABLET 354231 SIMVASTATIN Inactive ASPIRIN 81 MG ORAL TABLET 1 tablet by mouth daily ASPIRIN 81 MG ORAL TABLET 088986 ASPIRIN Inactive CALCIUM 500/D 500-200 MG-UNIT ORAL TABLET one tablet daily CALCIUM 500/D 500-200 MG-UNIT ORAL TABLET CALCIUM CARBONATE-VITAMIN D Inactive BENZONATATE 200 MG ORAL CAPSULE Take 1 tablet 3 times a day as needed for cough BENZONATATE 200 MG ORAL CAPSULE 839622 BENZONATATE Inactive AZITHROMYCIN 250 MG ORAL TABLET 2 po qd x 1 day, then 1 po qd x 4 days 05/07 AZITHROMYCIN 250 MG ORAL TABLET 290698 AZITHROMYCIN Inactive Immunizations Vaccine Administration Date Value [...] Panel - Chemistry sodium, serum 135 mmol/L 635-269 5908/04/10 carbon dioxide, venous blood 26.1 mmol/L 21.0-32.0 potassium, serum 4.2 mmol/L 3.5-5.2 chloride, serum 100 mmol/L 98-107 blood glucose 293 mg/dL 65-110 urea nitrogen, blood 18 mg/dL 7-18 creatinine, serum 2.06 mg/dL 0.60-1.30 alanine aminotransferase (SGPT), serum 59 U/L 12-78 aspartate aminotransferase (SGOT), serum 47 U/L 15-37 calcium, serum 8.6 mg/dL 8.5-10.1 bilirubin, serum, total 0.30 mg/dL 0.00-1.00 sodium, serum 139 mmol/L 703-155 8417/05/01 carbon dioxide, venous blood 25.2 mmol/L 21.0-32.0 [...] % 11.6-14.8 platelet count 271 10^3/MM^3 10*3/mm3 094-978 3306/04/10 leukocyte count, blood 4.8 10^3/MM^3 10*3/mm3 4.6-10.2 [...] W/DIFF - Chemistry sodium, serum 137 mmol/L 282-660 7425/08/16 carbon dioxide, venous blood 26.3 mmol/L 21.0-32.0 [...] LABS - Chemistry cholesterol, serum 115 mg/dL 678-113 4523/08/18 triglyceride, serum, fasting 89 mg/dL 30-200 HDL [...] mg/dL Encounters Code Encounter Date Provider Facility CPT-13002 Level 3 Est. Patient 14:09:25 JUNIOR NETWORK ADMINISTRATOR Dee Palmer APRN [facility] CPT-52983 Level 3 Est. Patient 10:53:32 JUNIOR NETWORK ADMINISTRATOR Moy Garcia [facility] CPT-41635 Level 3 Est. Patient 17:11:55 JUNIOR NETWORK ADMINISTRATOR Ismale Gracia MD [facility] CPT-59347 Level 4 Est. Patient 16:29:19 CDT Mekhi Dukes MD [facility] CPT-82364 Level 3 New Patient 17:05:24 CDT Ismael Gracia MD [facility] CPT-05843 Level 2 Est. Patient 15:43:17 CDT Mekhi Dukes MD [facility] CPT-29194 Level 3 Est. Patient 09:30:37 CDT Moy Garcia [facility] CPT-23536 Level 3 Est. Patient 10:00:14 CDT Mekhi Dukes MD [facility] CPT-04493 Level 3 Est. Patient 12:24:09 CD[facility] Level 3 Est. Patient 14:34:57 CDT Prosper Arenas MD [facility] CPT-46165 Level 3 New Patient 15:44:53 JUNIOR NETWORK ADMINISTRATOR Mekhi Dukes MD [facility] CPT-98871 Level 3 Est. Patient 14:53:34 JUNIOR NETWORK ADMINISTRATOR Prosper Arenas MD [facility] CPT-16765 Level 4 Est. Patient 10:05:41 JUNIOR NETWORK ADMINISTRATOR Moy Garcia [facility] CPT-84177 Level 3 Est. Patient 11:18:32 CDT Luxpapo Garcia [facility] CPT-59238 Level 4 Est. Patient 11:05:10 CDT Luxpapo Garcia [facility] CPT-59603 Level 3 Est. Patient 11:08:27 JUNIOR NETWORK ADMINISTRATOR Moy Garcia [facility] CPT-13299 Level 4 Est. Patient 10:43:59 CDT Prosper Arenas MD [facility] CPT-84235 Level 3 Est. Patient 10:51:19 CDT Luxshoaib Garcia [facility] CPT-95756 Level 3 Est. Patient 10:20:31 CDT [facility]PT-11579 Level 3 Est. Patient 17:08:[address] [facility] [facility] CPT-73523 Level 2 Est. Patient 13:54:36 CDT Augustina Mata APRN [facility] CPT-08265 Level 3 Est. Patient 12:00:42 CDT Prosper Arenas MD [facility] CPT-65484 Level 3 Est. Patient 09:57:28 JUNIOR NETWORK ADMINISTRATOR [facility] CPT-66110 Level 3 Est. Patient 11:41:19 JUNIOR NETWORK ADMINISTRATOR [facility] CPT-07191 Level 4 Est. Patient 17:07:35 JUNIOR NETWORK ADMINISTRATOR [facility] CPT-50588 Level 5 Est. Patient 14:33:32 CDT [facility] CPT-08088 Level 3 Est. Patient 12:25:35 CDT Prosper Arenas MD [facility] Procedures Code Procedure Name Date Entry Date Standard Description CPT-34526 Chest, 2 views 14:17:20 JUNIOR NETWORK ADMINISTRATOR CPT-75024 Postop F/U Visit 14:44:45 JUNIOR NETWORK ADMINISTRATOR CPT-69186 Postop F/U Visit 17:20:20 JUNIOR NETWORK ADMINISTRATOR CPT-G0439 [facility] Annual Wellness Exam 08:39:41 JUNIOR NETWORK ADMINISTRATOR CPT-000 Give Appropriate Flu Vaccine 10:13:55 JUNIOR NETWORK ADMINISTRATOR CPT-000 Give Immunizations Due 10:13:55 JUNIOR NETWORK ADMINISTRATOR CPT-07918 HGBA1C - LAB USE ONLY 09:42:47 JUNIOR NETWORK ADMINISTRATOR CPT-48927 TPSA - LAB USE ONLY 09:42:46 JUNIOR NETWORK ADMINISTRATOR CPT-12350 Venipuncture Draw Fee 09:42:46 JUNIOR NETWORK ADMINISTRATOR CPT-45628 Port a cath flush 13:33:18 JUNIOR NETWORK ADMINISTRATOR CPT-50167 First Vx - Ix admin for Medicare patients 10:42:57 JUNIOR NETWORK ADMINISTRATOR CPT-20109 Fluzone Preservative Free Intramuscular Suspension 10:42 :57 JUNIOR NETWORK ADMINISTRATOR CPT-G0438 Initial Annual Wellness Exam 10:13:55 JUNIOR NETWORK ADMINISTRATOR CPT-000 Give Appropriate Flu Vaccine 10:44:04 CDT CPT-000 Give Pneumovax 10:44:03 CDT CPT-17173 Port a cath flush 17:04:43 CDT CPT-78823 Prevnar 13 11:19:17 CDT CPT-51283 Fluzone Quadrivalent preservative free (>=3yrs.) 11:19: 17 CDT CPT-40534 Immunization Each Additional Inj 11:19:17 CDT CPT-74748 Immunization Single Admin 11:19:17 CDT CPT-15032 Port a cath flush 13:28:22 CDT CPT-TCMM Transitional Care Mgmt-Moderate 13:40:15 CDT CPT-G0008 Administration of Influenza Virus Vaccine 13:59:20 CDT CPT-93434 Fluzone High-Dose Intramuscular Suspension 13:59:20 CDT CPT-34900 Venipuncture Draw Fee 09:56:19 CDT CPT-OV Office Visit 15:46:10 CDT
--- OUTSIDE RECORDS SUMMARY | 2017-08-25 22:29 | XMS REPORT | Clinical Summary ---
Author Author Admin, IWONA Organization [facility] Address Unknown Phone Unavailable Allergies, Adverse Reactions, Alerts Allergy Name Reaction Description Start Date Severity Status Provider ERYTHROMYCIN Stomach cramps Moderate Active Prosper Arenas MD CODEINE Critical Active Maliheh Ziglari ASSURANCE ENGINEER DARVOCET Critical Active Maliheh Ziglari ASSURANCE ENGINEER LEVAQUIN Critical Active Maliheh Ziglari ASSURANCE ENGINEER Conditions or Problems Problem Name Problem [...] type II, uncontrolled 250.02 Active Maliheh Ziglari ASSURANCE ENGINEER Diabetes mellitus without mention of complication, [...] 1 daily for 4 days 2014 AZITHROMYCIN 29308930906 No Longer Active Augustina Rangelann MARIEN Active BENZONATATE 200 MG CAPS 1 tab, 2-3 times a day BENZONATATE 18434145432 Active Prosper Arenas MD Active NOVOLOG FLEXPEN 100 UNIT/ML SOPN Take 10 units with each meal, add 2u/50 for blood sugars above 150 INSULIN ASPART 83046964477 Active Malpapo Ziglari ASSURANCE ENGINEER Active LANTUS SOLOSTAR 100 UNIT/ML SOLN 30 units at 4-5pm daily INSULIN GLARGINE 66356661520 Active Maliheh Ziglari ASSURANCE ENGINEER Active NOVOLIN R RELION 100 UNIT/ML INJ SOLN 30- 40 units each meal sliding scale INSULIN REGULAR HUMAN 83361025821 No Longer Active Malcarissashoaib Wallaceglari ASSURANCE ENGINEER Active LISINOPRIL 5 MG TABS 1 daily LISINOPRIL 16635705627 Active Prosper Arenas MD Active CALCIUM 500/D 500-200 MG-UNIT TABS one tablet daily CALCIUM CARBONATE- VITAMIN D 56907240113 Active Prosper Arenas MD Active REVLIMID 25 MG CAPS one capsule daily for 21 days then off for 7 days LENALIDOMIDE 92433758081 Active Prosper Arenas MD Active HYDROCHLOROTHIAZIDE 25 MG TABS 1 tablet by mouth daily HYDROCHLOROTHIAZIDE 38933795709 Active Prosper Arenas MD Active HYDROCODONE-ACETAMINOPHEN 5-500 MG TABS 1-2 FOUR TIMES A DAY, PRN HYDROCODONE-ACETAMINOPHEN 25899223859 No Longer Active Prosper Arenas MD Active TRAZODONE HCL 50 MG TAB three tablets at bed time TRAZODONE HCL 72948978712 Active Prosper Arenas MD Active SIMVASTATIN 80 MG TABS 1/2 tablet daily SIMVASTATIN 02067712300 Active Prosper Arenas MD Active METOPROLOL TARTRATE 25 MG TABS 1/2 tablet twice a day METOPROLOL TARTRATE 05138548661 Active Prosper Arenas MD Active HALOPERIDOL 0.5 MG TABS one tablet three times a day HALOPERIDOL 00159728742 Active Prosper Arenas MD Active ASPIRIN 81 MG TAB 1 tablet by mouth daily ASPIRIN 67457833244 Active Prosper Arenas MD Active OMEPRAZOLE 20 MG CPDR 1 qd OMEPRAZOLE 41853950368 Active DARCIE Miller Active DOXYCYCLINE HYCLATE 100 MG CAPS take one capsule by mouth twice daily for ten days DOXYCYCLINE HYCLATE 34332765603 No Longer Active Mekhi Dukes MD Active DOXYCYCLINE HYCLATE 100 MG CAPS take one capsule by mouth twice daily for ten days DOXYCYCLINE HYCLATE 100 MG CAPS 206731 DOXYCYCLINE HYCLATE Inactive HYDROCODONE-ACETAMINOPHEN 5-500 MG TABS [...] days 2014 ZITHROMAX Z-EDDIE 250 MG TABS 9330543 AZITHROMYCIN Inactive Immunizations Vaccine Administration Date Value Standard Description influenza immunization (Flu Vax) has been administered 01/09/2014 influenza virus vaccine, unspecified formulation Vital Signs Date Name Value Unit Range Description blood pressure, diastolic - 8462-4 69 mm[Hg] [...] U/L Chart Maintenance: Outside labs entered on [employer] - Hematology leukocyte count, blood 5.3 10*3/mm3 hemoglobin, blood 14.0 g/dL platelet count 240 10*3/mm3 Lab Report: Basic Metabolic Panel - Chemistry sodium, serum 137 mmol/L 500-715 5018/08/22 potassium, serum 4.0 mmol/L 3.5-5.2 chloride, serum 100 mmol/L 98-107 carbon dioxide, venous blood 27.9 mmol/L 21.0-32.0 blood glucose 109 mg/dL 65-110 calcium, serum 9.0 mg/dL 8.5-10.1 urea nitrogen, blood 15 mg/dL 7-18 creatinine, serum 2.00 mg/dL 0.60-1.30 Lab Report: Basic Metabolic Panel, HGBA1C - Chemistry sodium, serum 134 mmol/L 943-317 2747/01/27 potassium, serum 4.1 mmol/L 3.5-5.2 chloride, serum 96 mmol/L 98-107 carbon dioxide, venous blood 35.1 mmol/L 21.0-32.0 blood glucose 346 mg/dL 65-110 calcium, serum 8.4 mg/dL 8.5-10.1 urea nitrogen, blood 18 mg/dL 7-18 creatinine, serum 2.00 mg/dL 0.60-1.30 hemoglobin A1C, blood, as % of total hemoglobin 8.4 % 4.3-6.0 Lab Report: CBC W/DIFF, Comp. Metabolic Panel - Chemistry sodium, serum 137 mmol/L 929-958 7330/01/21 potassium, serum 4.1 mmol/L 3.5-5.2 chloride, serum 99 mmol/L 98-107 carbon dioxide, venous blood 30.9 mmol/L 21.0-32.0 blood glucose 303 mg/dL 65-110 urea nitrogen, blood 19 mg/dL 7-18 creatinine, serum 2.00 mg/dL 0.60-1.30 alanine aminotransferase (SGPT), serum 84 U/L 12-78 aspartate aminotransferase (SGOT), serum 41 U/L 15-37 calcium, serum 7.8 mg/dL 8.5-10.1 bilirubin, serum, total 0.50 mg/dL 0.00-1.00 sodium, serum 131 mmol/L 316-417 3813/03/18 potassium, serum 4.4 mmol/L 3.5-5.2 chloride, serum 95 mmol/L 98-107 carbon dioxide, venous blood 19.0 mmol/L 21.0-32.0 blood glucose 297 mg/dL 65-110 urea nitrogen, blood 19 mg/dL 7-18 creatinine, serum 1.70 mg/dL 0.60-1.30 alanine aminotransferase (SGPT), serum 184 U/L 12-78 aspartate aminotransferase (SGOT), serum 177 U/L 15-37 calcium, serum 7.8 mg/dL 8.5-10.1 bilirubin, serum, total 0.50 mg/dL 0.00-1.00 sodium, serum 135 mmol/L 936-991 2693/11/26 potassium, serum 4.4 mmol/L 3.5-5.2 chloride, serum [...] % 11.6-14.8 platelet count 172 10^3/MM^3 10*3/mm3 159-717 8902/01/21 leukocyte count, blood 6.3 10^3/MM^3 10*3/mm3 4.6-10.2 [...] % 11.6-14.8 platelet count 137 10^3/MM^3 10*3/mm3 362-862 7644/03/18 leukocyte count, blood 4.8 10^3/MM^3 10*3/mm3 4.6-10.2 [...] Ag - Chemistry sodium, serum 131 mmol/L 325-112 1157/10/13 potassium, serum 3.6 mmol/L 3.5-5.2 chloride, serum [...] 0.60 mg/dL 0.00-1.00 cholesterol, serum 98 mg/dL 808-925 2485/10/13 triglyceride, serum, fasting 125 mg/dL 30-200 HDL [...] mg/dL Encounters Code Encounter Date Provider Facility CPT-83152 Level 2 Est. Patient 13:54:36 CDT Augustina Mata APRN [facility] CPT-57518 Level 3 Est. Patient 12:00:42 CDT Prosper Arenas MD [facility] CPT-35358 Level 3 Est. Patient 09:57:28 PROMOS EXECUTIVE PRODUCER [facility] CPT-04912 Level 3 Est. Patient 11:41:19 PROMOS EXECUTIVE PRODUCER [facility] CPT-51409 Level 4 Est. Patient 17:07:35 PROMOS EXECUTIVE PRODUCER [facility] CPT-29946 Level 5 Est. Patient 14:33:32 CDT [facility] CPT-33716 Level 3 Est. Patient 12:25:35 CDT Prosper Arenas MD [facility] Procedures Code Procedure Name Date Entry Date Standard Description CPT-TCMM Transitional Care Mgmt-Moderate 13:40:15 CDT CPT-G0008 Administration of Influenza Virus Vaccine 13:59:20 CDT CPT-18971 Fluzone High-Dose Intramuscular Suspension 13:59:20 CDT CPT-23434 Venipuncture Draw Fee 09:56:19 CDT CPT-OV Office Visit 15:46:10 CDT
--- OUTSIDE RECORDS SUMMARY | 2017-08-25 22:30 | XMS REPORT | Clinical Summary ---
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, type [...] type II, uncontrolled 250.02 Active Maliheh Rodrigoglari MARKER SHIPMENTS Diabetes mellitus without mention of complication, type [...] with hyperglycemia 250.00 Active 03/21 Maliheh Ziglari MARKER SHIPMENTS Diabetes mellitus without mention of complication, type II or unspecified type, not stated as uncontrolled [facility] use of insulin treatment V58.67 Active Luxiheh Rodrigoglari MARKER SHIPMENTS Long-term (current) use of insulin Diabetes mellitus, type II with hypoglycemia 250.80 Active 07/22 Maliheh Ziglari MARKER SHIPMENTS Diabetes mellitus with other specified manifestations, type II or unspecified type, not stated as uncontrolled 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 Maliheh Ziglari MARKER SHIPMENTS Diabetes mellitus with renal manifestations, type II or unspecified type, not stated as uncontrolled Wellness exam V70.0 Active Dee Palmer APRN Routine general medical examination at a health care facility Fitting and adjustment of vascular catheter V58.81 Active 02/06 Dee Palmer APRN Encounter for fitting and adjustment of vascular catheter Unawareness of hypoglycemia in diabetes mellitus, type II 250.80 Active Maliheh Ziglari MARKER SHIPMENTS Diabetes mellitus with other specified manifestations, type [...] 80 MG TABS 1/2 tablet daily SIMVASTATIN 55991478260 No Longer Active Mekhi Dukes MD Active OMEPRAZOLE 20 MG CPDR 1 qd OMEPRAZOLE 64017162096 No Longer Active Mekhi Dukes MD Active METOPROLOL TARTRATE 25 MG TABS 1/2 tablet twice a day METOPROLOL TARTRATE 68119234149 No Longer Active Mekhi Dukes MD Active LISINOPRIL 5 MG TABS 1 daily LISINOPRIL 95888091925 No Longer Active Mekhi Dukes MD Active NOVOLOG FLEXPEN 100 UNIT/ML SOPN Take 8 units with each meal, add 1u/50 for blood sugars above 150. INSULIN ASPART 90566224614 Active Moy DURANTP Active GABAPENTIN 300 MG ORAL CAPS 1 tab BID GABAPENTIN 25277542464 Active Tami Miller RN Active PREDNISONE 20 MG TABS Take 2 daily for 3 days and then 1 daily for 3 days PREDNISONE 47145793917 No Longer Active Maliheh Ziglari MARKER SHIPMENTS Active BENZONATATE 200 MG CAPS Take 1 tablet 3 times a day as needed for cough 07/29 BENZONATATE 57331538883 No Longer Active Prosper Arenas MD Active HYDROCHLOROTHIAZIDE 25 MG TABS 1 tablet by mouth daily HYDROCHLOROTHIAZIDE 44246929856 No Longer Active Prosper Arenas MD Active ACCU-CHEK JOANNA PLUS STRP check blood sugars 5x a day, before each meal and bedtime and 15 minutes after treating a low blood. sugar GLUCOSE BLOOD 45669556454 Active Maliheh Ziglari MARKER SHIPMENTS Active LANTUS SOLOSTAR 100 UNIT/ML SOLN Take 40 units at 7-8pm daily INSULIN GLARGINE 45391188254 Active Maliheh Ziglari MARKER SHIPMENTS Active MECLIZINE HCL 25 MG TABS 1 daily needed for dizziness MECLIZINE HCL 88630091253 No Longer Active Maliheh Ziglari MARKER SHIPMENTS Active BENZONATATE 200 MG CAPS 1 tab, 2-3 times a day BENZONATATE 69888194781 No Longer Active Maliheh Ziglari MARKER SHIPMENTS Active HALOPERIDOL 0.5 MG TABS one tablet three times a day HALOPERIDOL 47070604307 No Longer Active Moy Ziglari MARKER SHIPMENTS Active TRAZODONE HCL 50 MG TAB three tablets at bed time TRAZODONE HCL 40322887040 No Longer Active Malshoaib Ziglari MARKER SHIPMENTS Active REVLIMID 25 MG CAPS one capsule daily for 21 days then off for 7 days 2014 LENALIDOMIDE 67353375779 No Longer Active Maleh Ziglari MARKER SHIPMENTS Active ZITHROMAX Z-EDDIE 250 MG TABS 2 today, then 1 daily for 4 days 2014 AZITHROMYCIN 68031061892 No Longer Active Augustina Yokum SHRIMP TRAWLER CAPTAIN Active NOVOLIN R RELION 100 UNIT/ML INJ SOLN 30- 40 units each meal sliding scale INSULIN REGULAR HUMAN 84962906570 No Longer Active Moy Rodrigoglari MARKER SHIPMENTS Active CALCIUM 500/D 500-200 MG-UNIT TABS one tablet daily CALCIUM CARBONATE- VITAMIN D 34521786938 Active Prosper Arenas MD Active HYDROCODONE-ACETAMINOPHEN 5-500 MG TABS 1-2 FOUR TIMES A DAY, PRN HYDROCODONE-ACETAMINOPHEN 35931078661 No Longer Active Prosper Arenas MD Active ASPIRIN 81 MG TAB 1 tablet by mouth daily ASPIRIN 89531427231 Active Prosper Arenas MD Active DOXYCYCLINE HYCLATE 100 MG CAPS take one capsule by mouth twice daily for ten days DOXYCYCLINE HYCLATE 02327265641 No Longer Active Mekhi Dukes MD Active DOXYCYCLINE HYCLATE 100 MG CAPS take one capsule by mouth twice daily for ten days DOXYCYCLINE HYCLATE 100 MG CAPS 1027790 DOXYCYCLINE HYCLATE Inactive HALOPERIDOL 0.5 MG TABS one tablet three times a day HALOPERIDOL 0.5 MG TABS 591365 HALOPERIDOL Inactive HYDROCHLOROTHIAZIDE 25 MG TABS 1 tablet by mouth daily HYDROCHLOROTHIAZIDE 25 MG TABS 482930 HYDROCHLOROTHIAZIDE Inactive PREDNISONE 20 MG TABS Take 2 daily for 3 days and then 1 daily for 3 days PREDNISONE 20 MG TABS 219576 PREDNISONE Inactive TRAZODONE HCL 50 MG TAB three tablets at bed time TRAZODONE HCL 50 MG TAB 789551 TRAZODONE HCL Inactive LISINOPRIL 5 MG TABS 1 daily LISINOPRIL 5 MG TABS 394201 LISINOPRIL Inactive MECLIZINE HCL 25 MG TABS 1 daily needed for dizziness MECLIZINE HCL 25 MG TABS 582216 MECLIZINE HCL Inactive HYDROCODONE-ACETAMINOPHEN 5-500 MG TABS 1-2 FOUR TIMES A DAY, PRN HYDROCODONE-ACETAMINOPHEN 5-500 MG TABS 163285 HYDROCODONE- ACETAMINOPHEN Inactive SIMVASTATIN 80 MG TABS 1/2 tablet daily SIMVASTATIN 80 MG TABS 651502 SIMVASTATIN Inactive BENZONATATE 200 MG CAPS Take 1 tablet 3 times a day as needed for cough 07/29 BENZONATATE 200 MG CAPS 851779 BENZONATATE Inactive BENZONATATE 200 MG CAPS 1 tab, 2-3 times a day BENZONATATE 200 MG CAPS 533591 BENZONATATE Inactive OMEPRAZOLE 20 MG CPDR 1 qd OMEPRAZOLE 20 MG CPDR 122196 OMEPRAZOLE Inactive ZITHROMAX Z-EDDIE 250 MG TABS 2 today, then 1 daily for 4 days 2014 ZITHROMAX Z-EDDIE 250 MG TABS 545794 AZITHROMYCIN Inactive METOPROLOL TARTRATE 25 MG TABS 1/2 tablet twice a day METOPROLOL TARTRATE 25 MG TABS 516174 METOPROLOL TARTRATE Inactive REVLIMID 25 MG CAPS [...] W/DIFF - Chemistry sodium, serum 137 mmol/L 828-522 0823/08/16 carbon dioxide, venous blood 26.3 mmol/L 21.0-32.0 [...] 4.3-6.0 Lab Report: Lipid Panel, Glucose- [facility] - Chemistry cholesterol, serum 115 mg/dL 652-849 3353/08/18 triglyceride, serum, fasting 89 mg/dL 30-200 HDL cholesterol, serum 46 mg/dL 32-60 LDL cholesterol, serum 51 mg/dL 0-130 blood glucose 104 mg/dL 65-110 Lab Report: LIPID PANEL- [facility] - Chemistry cholesterol, serum 156 mg/dL 743-465 3709/02/20 HDL cholesterol, serum 52 mg/dL > OR=40 [...] mg/dL Encounters Code Encounter Date Provider Facility CPT-72383 Level 4 Est. Patient 16:29:19 CDT Mekhi Dukes MD [facility] CPT-90731 Level 3 New Patient 17:05:24 CDT Ismael Gracia MD [facility] CPT-93019 Level 2 Est. Patient 15:43:17 CDT Mekhi Dukes MD [facility] CPT-07823 Level 3 Est. [facility] CPT-44980 Level 3 Est. Patient 10:00:14 CDT Mekhi Dukes MD [facility] CPT-98324 Level 3 Est. [facility] 12:24:[facility] CPT-44822 Level 3 Est. 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 Patient 14:53:34 WELDER FITTER Prosper Arenas MD [facility] CPT-51539 Level 4 Est. Patient 10:05:41 WELDER FITTER Moy Garcia [facility]-31492 Level 3 Est. Patient 11:18:32 CDT Moy Bradshawari [facility] CPT-36513 Level 4 Est. Patient 11:05:10 CDT Moy Garcia [facility]-75668 Level 3 Est. Patient 11:08:27 WELDER FITTER Moy Garcia [facility] CPT-70484 Level 4 Est. Patient 10:43:59 CDT Prosper Arenas MD [facility]-79503 Level 3 Est. Patient 10:51:19 CDT Moy Garcia [facility] CPT-67735 Level 3 Est. Patient 10:20:31 CDT Moy Garcia [facility] CPT-50434 Level 3 Est. Patient 17:08:45 CDT Moy Garcia [facility] CPT-38118 Level 2 Est. Patient 13:54:36 CDT Augustina Mata APRN [facility] CPT-21169 Level 3 Est. Patient 12:00:42 CDT Prosper Arenas MD [facility]-43405 Level 3 Est. Patient 09:57:28 WELDER FITTER Moy Bradshawrex [facility] CPT-57275 Level 3 Est. Patient 11:41:19 WELDER FITTER [facility] 4 Est. Patient 17:07:35 WELDER FITTER Moy Bradshawari [facility] CPT-98019 Level 5 Est. Patient 14:33:32 CDT Moy DURANTP [facility] CPT-55423 Level 3 Est. Patient 12:25:35 CDT Prosper Arenas MD [facility] Procedures Code Procedure Name Date Entry Date Standard Description CPT-000 Give Appropriate Flu Vaccine 10:13:55 WELDER FITTER CPT-000 Give Immunizations Due 10:13:55 WELDER FITTER CPT-59511 HGBA1C - LAB USE ONLY 09:42:47 WELDER FITTER CPT-36259 TPSA - LAB USE ONLY 09:42:46 WELDER FITTER CPT-47836 Venipuncture Draw Fee 09:42:46 WELDER FITTER CPT-48042 Port a cath flush 13:33:18 WELDER FITTER CPT-17391 First Vx - Ix admin for Medicare patients 10:42:57 WELDER FITTER CPT-80607 Fluzone Preservative Free Intramuscular Suspension 10:42 :57 WELDER FITTER CPT-G0438 Initial Annual Wellness Exam 10:13:55 WELDER FITTER CPT-000 Give Appropriate Flu Vaccine 10:44:04 CDT CPT-000 Give Pneumovax 10:44:03 CDT CPT-90944 Port a cath flush 17:04:43 CDT CPT-20523 Prevnar 13 11:19:17 CDT CPT-90668 Fluzone Quadrivalent preservative free (>=3yrs.) 11:19: 17 CDT CPT-29876 Immunization Each Additional Inj 11:19:17 CDT CPT-11282 Immunization Single Admin 11:19:17 CDT CPT-23575 Port a cath flush 13:28:22 CDT CPT-TCMM Transitional Care Mgmt-Moderate 13:40:15 CDT CPT-G0008 Administration of Influenza Virus Vaccine 13:59:20 CDT CPT-43425 Fluzone High-Dose Intramuscular Suspension 13:59:20 CDT CPT-80606 Venipuncture Draw Fee 09:56:19 CDT CPT-OV Office Visit 15:46:10 CDT
--- OUTSIDE RECORDS SUMMARY | 2017-08-25 22:31 | XMS REPORT | Clinical Summary ---
Author Author Admin, IWONA Organization [facility] Address Unknown Phone Unavailable Allergies, Adverse Reactions, Alerts Allergy Name Reaction Description Start Date Severity Status Provider ERYTHROMYCIN Stomach cramps Moderate Active Prosper Arenas MD CODEINE Critical Active Maliheh Ziglari ELEVATOR TECHNICIAN DARVOCET Critical Active Maliheh Ziglari ELEVATOR TECHNICIAN LEVAQUIN Critical Active Maliheh Ziglari ELEVATOR TECHNICIAN Conditions or Problems Problem Name Problem [...] type II, uncontrolled 250.02 Active Maliheh Ziglari ELEVATOR TECHNICIAN Diabetes mellitus without mention of complication, [...] then off for 7 days 2014 LENALIDOMIDE 48055930723 No Longer Active Maliheh Ziglari ELEVATOR TECHNICIAN Active ACCU-CHEK JOANNA PLUS STRP check blood sugars 3x a day GLUCOSE BLOOD 86632954525 Active Maliheh Ziglari ELEVATOR TECHNICIAN Active NOVOLOG FLEXPEN 100 UNIT/ML SOPN Take 15 units with each meal, add 2u/50 for blood sugars above 150 INSULIN ASPART 84025241483 Active Maliheh Ziglari ELEVATOR TECHNICIAN Active ZITHROMAX Z-EDDIE 250 MG TABS 2 today, then 1 daily for 4 days 2014 AZITHROMYCIN 99100420519 No Longer Active Augustina Rangelann DOHERTY Active BENZONATATE 200 MG CAPS 1 tab, 2-3 times a day BENZONATATE 12065887903 Active Prosper Arenas MD Active LANTUS SOLOSTAR 100 UNIT/ML SOLN 30 units at 4-5pm daily INSULIN GLARGINE 47778637326 Active Maliheh Ziglari ELEVATOR TECHNICIAN Active NOVOLIN R RELION 100 UNIT/ML INJ SOLN 30- 40 units each meal sliding scale INSULIN REGULAR HUMAN 92598195391 No Longer Active Maliheh Ziglari ELEVATOR TECHNICIAN Active LISINOPRIL 5 MG TABS 1 daily LISINOPRIL 94848444722 Active Prosper Arenas MD Active CALCIUM 500/D 500-200 MG-UNIT TABS one tablet daily CALCIUM CARBONATE- VITAMIN D 42054141016 Active Prosper Arenas MD Active HYDROCHLOROTHIAZIDE 25 MG TABS 1 tablet by mouth daily HYDROCHLOROTHIAZIDE 40815278460 Active Prosper Arenas MD Active HYDROCODONE-ACETAMINOPHEN 5-500 MG TABS 1-2 FOUR TIMES A DAY, PRN HYDROCODONE-ACETAMINOPHEN 58546163109 No Longer Active Prosper Arenas MD Active TRAZODONE HCL 50 MG TAB three tablets at bed time TRAZODONE HCL 67789213057 Active Prosper Arenas MD Active SIMVASTATIN 80 MG TABS 1/2 tablet daily SIMVASTATIN 79654405284 Active Prosper Arenas MD Active METOPROLOL TARTRATE 25 MG TABS 1/2 tablet twice a day METOPROLOL TARTRATE 26958880341 Active Prosper Arenas MD Active HALOPERIDOL 0.5 MG TABS one tablet three times a day HALOPERIDOL 99277228419 Active Prosper Arenas MD Active ASPIRIN 81 MG TAB 1 tablet by mouth daily ASPIRIN 23892838919 Active Prosper Arenas MD Active OMEPRAZOLE 20 MG CPDR 1 qd OMEPRAZOLE 55153814095 Active DARCIE Miller Active DOXYCYCLINE HYCLATE 100 MG CAPS take one capsule by mouth twice daily for ten days DOXYCYCLINE HYCLATE 01264164760 No Longer Active Mekhi Dukes MD Active DOXYCYCLINE HYCLATE 100 MG CAPS take one capsule by mouth twice daily for ten days DOXYCYCLINE HYCLATE 100 MG CAPS 229408 DOXYCYCLINE HYCLATE Inactive HYDROCODONE-ACETAMINOPHEN 5-500 MG TABS [...] days 2014 ZITHROMAX Z-EDDIE 250 MG TABS 8353195 AZITHROMYCIN Inactive REVLIMID 25 MG CAPS one [...] Description Chart Maintenance: Outside labs entered on [employer] - Chemistry sodium, serum 134 mmol/L potassium, [...] U/L Chart Maintenance: Outside labs entered on [employer] - Hematology leukocyte count, blood 5.1 10*3/mm3 hemoglobin, blood 14.7 g/dL platelet count 190 10*3/mm3 leukocyte count, blood 5.3 10*3/mm3 hemoglobin, blood 14.0 g/dL platelet count 240 10*3/mm3 Lab Report: Basic Metabolic Panel - Chemistry sodium, serum 137 mmol/L 417-593 8659/08/22 potassium, serum 4.0 mmol/L 3.5-5.2 chloride, serum 100 mmol/L 98-107 carbon dioxide, venous blood 27.9 mmol/L 21.0-32.0 blood glucose 109 mg/dL 65-110 calcium, serum 9.0 mg/dL 8.5-10.1 urea nitrogen, blood 15 mg/dL 7-18 creatinine, serum 2.00 mg/dL 0.60-1.30 Lab Report: Basic Metabolic Panel, HGBA1C - Chemistry sodium, serum 134 mmol/L 613-178 9444/01/27 potassium, serum 4.1 mmol/L 3.5-5.2 chloride, serum 96 mmol/L 98-107 carbon dioxide, venous blood 35.1 mmol/L 21.0-32.0 blood glucose 346 mg/dL 65-110 calcium, serum 8.4 mg/dL 8.5-10.1 urea nitrogen, blood 18 mg/dL 7-18 creatinine, serum 2.00 mg/dL 0.60-1.30 hemoglobin A1C, blood, as % of total hemoglobin 8.4 % 4.3-6.0 Lab Report: CBC W/DIFF, Comp. Metabolic Panel - Chemistry sodium, serum 137 mmol/L 860-329 5708/01/21 potassium, serum 4.1 mmol/L 3.5-5.2 chloride, serum 99 mmol/L 98-107 carbon dioxide, venous blood 30.9 mmol/L 21.0-32.0 blood glucose 303 mg/dL 65-110 urea nitrogen, blood 19 mg/dL 7-18 creatinine, serum 2.00 mg/dL 0.60-1.30 alanine aminotransferase (SGPT), serum 84 U/L 12-78 aspartate aminotransferase (SGOT), serum 41 U/L 15-37 calcium, serum 7.8 mg/dL 8.5-10.1 bilirubin, serum, total 0.50 mg/dL 0.00-1.00 sodium, serum 131 mmol/L 537-307 2663/03/18 potassium, serum 4.4 mmol/L 3.5-5.2 chloride, serum 95 mmol/L 98-107 carbon dioxide, venous blood 19.0 mmol/L 21.0-32.0 blood glucose 297 mg/dL 65-110 urea nitrogen, blood 19 mg/dL 7-18 creatinine, serum 1.70 mg/dL 0.60-1.30 alanine aminotransferase (SGPT), serum 184 U/L 12-78 aspartate aminotransferase (SGOT), serum 177 U/L 15-37 calcium, serum 7.8 mg/dL 8.5-10.1 bilirubin, serum, total 0.50 mg/dL 0.00-1.00 sodium, serum 135 mmol/L 322-876 0777/11/26 potassium, serum 4.4 mmol/L 3.5-5.2 chloride, serum [...] % 11.6-14.8 platelet count 172 10^3/MM^3 10*3/mm3 382-070 0312/01/21 leukocyte count, blood 6.3 10^3/MM^3 10*3/mm3 4.6-10.2 [...] % 11.6-14.8 platelet count 137 10^3/MM^3 10*3/mm3 979-395 1804/03/18 leukocyte count, blood 4.8 10^3/MM^3 10*3/mm3 4.6-10.2 [...] Ag - Chemistry sodium, serum 131 mmol/L 028-656 0670/10/13 potassium, serum 3.6 mmol/L 3.5-5.2 chloride, serum [...] 0.60 mg/dL 0.00-1.00 cholesterol, serum 98 mg/dL 459-249 3047/10/13 triglyceride, serum, fasting 125 mg/dL 30-200 HDL [...] mg/dL Encounters Code Encounter Date Provider Facility CPT-07066 Level 3 Est. Patient 10:20:31 CDT [facility] CPT-85929 Level 3 Est. Patient 17:08:45 CDT [facility] CPT-38173 Level 2 Est. Patient 13:54:36 CDT Augustina Mata APRN [facility] CPT-30985 Level 3 Est. Patient 12:00:42 CDT Prosper Arenas MD [facility] CPT-81785 Level 3 Est. 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 Patient 11:41:19 MIXING HOUSE OPERATOR [facility] CPT-43244 Level 4 Est. Patient 17:07:35 MIXING HOUSE OPERATOR [facility] CPT-41694 Level 5 Est. Patient 14:33:32 CDT [facility] CPT-88269 Level 3 Est. Patient 12:25:35 CDT Prosper Arenas MD [facility] Procedures Code Procedure Name Date Entry Date Standard Description CPT-20122 Port a cath flush 13:28:22 CDT CPT-TCMM Transitional Care Mgmt-Moderate 13:40:15 CDT CPT-G0008 Administration of Influenza Virus Vaccine 13:59:20 CDT CPT-33720 Fluzone High-Dose Intramuscular Suspension 13:59:20 CDT CPT-17685 Venipuncture Draw Fee 09:56:19 CDT CPT-OV Office Visit 15:46:10 CDT
--- OUTSIDE RECORDS SUMMARY | 2017-08-25 22:32 | XMS REPORT | Clinical Summary ---
Author Author Admin, [place] Organization [facility] [employer] Address Unknown Phone Unavailable Allergies, Adverse Reactions, Alerts Allergy Name Reaction Description Start Date Severity Status Provider ERYTHROMYCIN Stomach cramps Moderate Active Prosper Arenas MD CODEINE Critical Active Maliheh Ziglari AUTO SUSPENSION AND STEERING MECHANIC DARVOCET Critical Active Maliheh Ziglari AUTO SUSPENSION AND STEERING MECHANIC LEVAQUIN Critical Active Maliheh Ziglari AUTO SUSPENSION AND STEERING MECHANIC Conditions or Problems Problem Name Problem Code Onset Date Status Entry Date Provider Comment Standard Description Annotate Diabetes, Type 2 250.00 Resolved 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, type [...] II, uncontrolled 250.02 Active Maliheh Ziglari AUTO SUSPENSION AND STEERING MECHANIC Diabetes mellitus without mention of complication, [...] hyperglycemia 250.00 Active 03/21 Maliheh Ziglari AUTO SUSPENSION AND STEERING MECHANIC Diabetes mellitus without mention of complication, type II or unspecified type, not stated as uncontrolled halfway use of insulin treatment V58.67 Active Luxiheh Rodrigoglari AUTO SUSPENSION AND STEERING MECHANIC Long-term (current) use of insulin Diabetes mellitus, type II with hypoglycemia 250.80 Active 07/22 Maliheh Ziglari AUTO SUSPENSION AND STEERING MECHANIC Diabetes mellitus with other specified manifestations, type II or unspecified type, not stated as uncontrolled 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 Maliheh Ziglari AUTO SUSPENSION AND STEERING MECHANIC Diabetes mellitus with renal manifestations, type II or unspecified type, not stated as uncontrolled Wellness exam V70.0 Active Dee Palmer APRN Routine general medical examination at a health care facility Fitting and adjustment of vascular catheter V58.81 Active 02/06 Dee Palmer APRN Encounter for fitting and adjustment of vascular catheter Unawareness of hypoglycemia in diabetes mellitus, type II 250.80 Active Maliheh Rodrigoglari AUTO SUSPENSION AND STEERING MECHANIC Diabetes mellitus with other specified manifestations, [...] specified as recurrent) Gastritis Inactive Maliheh Ziglari AUTO SUSPENSION AND STEERING MECHANIC Unspecified gastritis and gastroduodenitis, without mention [...] po qd x 4 days 05/07 AZITHROMYCIN [id number] No Longer Active Dee Palmer APRN Active GUAIFENESIN DM 400-20 MG ORAL TABLET 1 pill by mouth twice daily, if needed for cough DEXTROMETHORPHAN-GUAIFENESIN 82703749567 Active Dee Palmer APRN Active PREDNISONE 20 MG ORAL TABLET 2 tabs daily for 4 days, 1 tab daily for 4 days, 1/2 tab daily for 4 days PREDNISONE 14898648217 Active Dee Palmer APRN Active ASPIRIN 81 MG ORAL TABLET 1 po qd ASPIRIN 17220952091 Active Dee Palmer APRN Active CALCIUM 500/D 500-200 MG-UNIT ORAL TABLET one tablet daily CALCIUM CARBONATE-VITAMIN D 77355645564 No Longer Active Dee Palmer APRN Active HYDROCODONE-ACETAMINOPHEN 7.5-325 MG ORAL TABLET 1-2 every 4-6 hrs prn 02/25 HYDROCODONE-ACETAMINOPHEN 80980027473 [facility] 81 MG ORAL TABLET 1 tablet by mouth daily ASPIRIN 93963075799 No Longer Active [facility] Active SIMVASTATIN 80 MG ORAL TABLET 1/2 tablet daily SIMVASTATIN 29645029019 No Longer Active Mekhi Dukes MD Active OMEPRAZOLE 20 MG ORAL CAPSULE DELAYED RELEASE 1 qd OMEPRAZOLE 79777819703 No Longer Active Mekhi Dukes MD Active METOPROLOL TARTRATE 25 MG ORAL TABLET 1/2 tablet twice a day METOPROLOL TARTRATE 84839079435 No Longer Active Mekhi Dukes MD Active LISINOPRIL 5 MG ORAL TABLET 1 daily LISINOPRIL 54221690958 No Longer Active Mekhi Dukes MD Active NOVOLOG FLEXPEN 100 UNIT/ML SUBCUTANEOUS SOLUTION PEN-INJECTOR Take 8 units with each meal, add 1u/50 for blood sugars above 150. INSULIN ASPART 07592419492 Active Moy PARISH Active GABAPENTIN 300 MG ORAL CAPSULE 1 tab BID GABAPENTIN 11674593765 Active Tami Miller RN Active PREDNISONE 20 MG ORAL TABLET Take 2 daily for 3 days and then 1 daily for 3 days PREDNISONE 97893330829 No Longer Active Malcarissaeh Ziglari AUTO SUSPENSION AND STEERING MECHANIC Active BENZONATATE 200 MG ORAL CAPSULE Take 1 tablet 3 times a day as needed for cough BENZONATATE 54842635495 No Longer Active rPosper Arenas MD Active HYDROCHLOROTHIAZIDE 25 MG ORAL TABLET 1 tablet by mouth daily HYDROCHLOROTHIAZIDE 65936455348 No Longer Active Prosper Arenas MD Active ACCU-CHEK JOANNA PLUS IN VITRO STRIP check blood sugars 5x a day, before each meal and bedtime and 15 minutes after treating a low blood. sugar GLUCOSE BLOOD 67786522995 Active Malpapo Wallaceglari AUTO SUSPENSION AND STEERING MECHANIC Active LANTUS SOLOSTAR 100 UNIT/ML SUBCUTANEOUS SOLUTION PEN-INJECTOR Take 40 units at 7-8pm daily INSULIN GLARGINE 05048096768 Active Maliheh Ziglari AUTO SUSPENSION AND STEERING MECHANIC Active MECLIZINE HCL 25 MG ORAL TABLET 1 daily needed for dizziness 2015 MECLIZINE HCL 80135991882 No Longer Active Maliheh Ziglari AUTO SUSPENSION AND STEERING MECHANIC Active BENZONATATE 200 MG ORAL CAPSULE 1 tab, 2-3 times a day BENZONATATE 04949189394 No Longer Active Maliheh Ziglari AUTO SUSPENSION AND STEERING MECHANIC Active HALOPERIDOL 0.5 MG ORAL TABLET one tablet three times a day HALOPERIDOL 29490251237 No Longer Active Maliheh Ziglari AUTO SUSPENSION AND STEERING MECHANIC Active TRAZODONE HCL 50 MG ORAL TABLET three tablets at bed time TRAZODONE HCL 47830808540 No Longer Active Maleh Ziglari AUTO SUSPENSION AND STEERING MECHANIC Active REVLIMID 25 MG ORAL CAPSULE one capsule daily for 21 days then off for 7 days LENALIDOMIDE 93215805991 No Longer Active Maliheh Ziglari AUTO SUSPENSION AND STEERING MECHANIC Active ZITHROMAX Z-EDDIE 250 MG ORAL TABLET 2 today, then 1 daily for 4 days AZITHROMYCIN 78003694016 No Longer Active Augustina Mata COMMERCIAL BAKING TEACHER Active NOVOLIN R RELION 100 UNIT/ML INJECTION SOLUTION 30- 40 units each meal sliding scale INSULIN REGULAR HUMAN 38515541439 No Longer Active Moy Ziglari AUTO SUSPENSION AND STEERING MECHANIC Active HYDROCODONE-ACETAMINOPHEN 5-500 MG ORAL TABLET 1-2 FOUR TIMES A DAY, PRN 2010 HYDROCODONE-ACETAMINOPHEN 90715525611 No Longer Active Prosper Arenas MD Active DOXYCYCLINE HYCLATE 100 MG ORAL CAPSULE take one capsule by mouth twice daily for ten days DOXYCYCLINE HYCLATE 30175665240 No Longer Active Mekhi Dukes MD Active DOXYCYCLINE HYCLATE 100 MG ORAL CAPSULE take one capsule by mouth twice daily for ten days DOXYCYCLINE HYCLATE 100 MG ORAL CAPSULE 5595110 DOXYCYCLINE HYCLATE Inactive HYDROCODONE-ACETAMINOPHEN 5-500 MG ORAL TABLET 1-2 FOUR TIMES A DAY, PRN 2010 HYDROCODONE-ACETAMINOPHEN 5-500 MG ORAL TABLET 721349 HYDROCODONE-ACETAMINOPHEN Inactive NOVOLIN R RELION 100 UNIT/ML INJECTION SOLUTION 30- 40 units each meal sliding scale NOVOLIN R RELION 100 UNIT/ML INJECTION SOLUTION INSULIN REGULAR HUMAN Inactive ZITHROMAX Z-EDDIE 250 MG ORAL TABLET 2 today, then 1 daily for 4 days ZITHROMAX Z-EDDIE 250 MG ORAL TABLET 249375 AZITHROMYCIN Inactive REVLIMID 25 MG ORAL CAPSULE one capsule daily for 21 days then off for 7 days REVLIMID 25 MG ORAL CAPSULE LENALIDOMIDE Inactive TRAZODONE HCL 50 MG ORAL TABLET three tablets at bed time TRAZODONE HCL 50 MG ORAL TABLET 993166 TRAZODONE HCL Inactive HALOPERIDOL 0.5 MG ORAL TABLET one tablet three times a day HALOPERIDOL 0.5 MG ORAL TABLET 764729 HALOPERIDOL Inactive BENZONATATE 200 MG ORAL CAPSULE 1 tab, 2-3 times a day BENZONATATE 200 MG ORAL CAPSULE 144170 BENZONATATE Inactive MECLIZINE HCL 25 MG ORAL TABLET 1 daily needed for dizziness 2015 MECLIZINE HCL 25 MG ORAL TABLET 045715 MECLIZINE HCL Inactive HYDROCHLOROTHIAZIDE 25 MG ORAL TABLET 1 tablet by mouth daily HYDROCHLOROTHIAZIDE 25 MG ORAL TABLET 735419 HYDROCHLOROTHIAZIDE Inactive PREDNISONE 20 MG ORAL TABLET Take 2 daily for 3 days and then 1 daily for 3 days PREDNISONE 20 MG ORAL TABLET 660253 PREDNISONE Inactive LISINOPRIL 5 MG ORAL TABLET 1 daily LISINOPRIL 5 MG ORAL TABLET 865816 LISINOPRIL Inactive METOPROLOL TARTRATE 25 MG ORAL TABLET 1/2 tablet twice a day METOPROLOL TARTRATE 25 MG ORAL TABLET 415233 METOPROLOL TARTRATE Inactive OMEPRAZOLE 20 MG ORAL CAPSULE DELAYED RELEASE 1 qd OMEPRAZOLE 20 MG ORAL CAPSULE DELAYED RELEASE 078859 OMEPRAZOLE Inactive SIMVASTATIN 80 MG ORAL TABLET 1/2 tablet daily SIMVASTATIN 80 MG ORAL TABLET 402708 SIMVASTATIN Inactive ASPIRIN 81 MG ORAL TABLET 1 tablet by mouth daily ASPIRIN 81 MG ORAL TABLET 453569 ASPIRIN Inactive CALCIUM 500/D 500-200 MG-UNIT ORAL TABLET one tablet daily CALCIUM 500/D 500-200 MG-UNIT ORAL TABLET CALCIUM CARBONATE-VITAMIN D Inactive BENZONATATE 200 MG ORAL CAPSULE Take 1 tablet 3 times a day as needed for cough BENZONATATE 200 MG ORAL CAPSULE 365624 BENZONATATE Inactive AZITHROMYCIN 250 MG ORAL TABLET 2 po qd x 1 day, then 1 po qd x 4 days 05/07 AZITHROMYCIN 250 MG ORAL TABLET 857231 AZITHROMYCIN Inactive Immunizations Vaccine Administration Date Value [...] Panel - Chemistry sodium, serum 135 mmol/L 215-755 5513/04/10 carbon dioxide, venous blood 26.1 mmol/L 21.0-32.0 potassium, serum 4.2 mmol/L 3.5-5.2 chloride, serum 100 mmol/L 98-107 blood glucose 293 mg/dL 65-110 urea nitrogen, blood 18 mg/dL 7-18 creatinine, serum 2.06 mg/dL 0.60-1.30 alanine aminotransferase (SGPT), serum 59 U/L -78 aspartate aminotransferase (SGOT), serum 47 U/L 15- calcium, serum 8.6 mg/dL 8.5-10.1 bilirubin, serum, total 0.30 mg/dL 0.00-1.00 sodium, serum 139 mmol/L 466-676 8451/05/01 carbon dioxide, venous blood 25.2 mmol/L 21.0-32.0 potassium, serum 4.1 mmol/L 3.5-5.2 chloride, serum 104 mmol/L 98-107 blood glucose 64 mg/dL 65-95 urea nitrogen, blood 16 mg/dL 7-18 creatinine, serum 1.55 mg/dL 0.60-1.30 alanine aminotransferase (SGPT), serum 80 U/L - aspartate aminotransferase (SGOT), serum 53 U/L 15-37 calcium, serum 8.1 mg/dL 8.5-10.1 bilirubin, serum, total 0.40 mg/dL 0.00-1.00 sodium, serum 135 mmol/L 188-355 9598/05/08 carbon dioxide, venous blood 29.0 mmol/L 21.0-32.0 [...] % 11.6-14.8 platelet count 103 10^3/MM^3 10*3/mm3 496-434 2203/05/01 leukocyte count, blood 5.0 10^3/MM^3 10*3/mm3 4.6-10.2 [...] % 11.6-14.8 platelet count 271 10^3/MM^3 10*3/mm3 063-205 7679/04/10 leukocyte count, blood 4.8 10^3/MM^3 10*3/mm3 4.6-10.2 [...] W/DIFF - Chemistry sodium, serum 137 mmol/L 747-893 9969/08/16 carbon dioxide, venous blood 26.3 mmol/L 21.0-32.0 [...] LABS - Chemistry cholesterol, serum 115 mg/dL 641-466 2327/08/18 triglyceride, serum, fasting 89 mg/dL 30-200 HDL [...] mg/dL Encounters Code Encounter Date Provider Facility CPT-07884 Level 3 Est. Patient 14:09:25 COKE OVEN PATCHER Dee Palmer APRN [facility] CPT-12080 Level 3 Est. Patient 10:53:32 COKE OVEN PATCHER Moy PARISH [facility] CPT-43071 Level 3 Est. Patient 17:11:55 COKE OVEN PATCHER Ismael Gracia MD [facility] CPT-14635 Level 4 Est. Patient 16:29:19 CDT Mekhi Dukes MD [facility] CPT-90742 Level 3 New Patient 17:05:24 CDT Ismael Gracia MD [facility] CPT-99232 Level 2 Est. Patient 15:43:17 CDT Mekhi Dukes MD [facility] CPT-91749 Level 3 Est. Patient 09:30:37 CDT Moy Bradshawrex [facility] CPT-29819 Level 3 Est. Patient 10:00:14 CDT Mekhi Dukes MD [facility] CPT-69841 Level 3 Est. Patient 12:24:09 CDT Moy Rodrigokymrex [facility] CPT-63456 Level 3 Est. Patient 14:34:57 CDT Prosper Arenas MD [facility] CPT-11815 Level 3 New Patient 15:44:53 COKE OVEN PATCHER Mekhi Dukes MD [facility] CPT-05791 Level 3 Est. Patient 14:53:34 COKE OVEN PATCHER Prosper Arenas MD [facility] CPT-86711 Level 4 Est. Patient 10:05:41 COKE OVEN PATCHER Moy Rodrigokymrex [facility] CPT-89838 Level 3 Est. Patient 11:18:32 CDT Moy Bradshawrex [facility] CPT-44628 Level 4 Est. Patient 11:05:10 CDT Moy Bradshawari [facility] CPT-58625 Level 3 Est. Patient 11:08:27 COKE OVEN PATCHER Moy Jose [facility] CPT-35222 Level 4 Est. Patient 10:43:59 CDT Prosper Arenas MD [facility] CPT-89784 Level 3 Est. [facility] 10:51:[facility] CPT-00574 Level 3 Est. Patient 10:20:31 [facility]T [facility] CPT-38629 Level 3 Est. Patient 17:08:45 CDT Moy Garcia [facility] CPT-83956 Level 2 Est. Patient 13:54:36 CDT Augustina Mata APRN [facility] CPT-25242 Level 3 Est. Patient 12:00:42 CDT Prosper Arenas MD [facility] CPT-57061 Level 3 Est. Patient 09:57:28 COKE OVEN PATCHER Moy Garcia [facility] CPT-35666 Level 3 Est. Patient 11:41:19 COKE OVEN PATCHER Moy Wallacerex [facility] CPT-59197 Level 4 Est. Patient 17:07:35 COKE OVEN PATCHER [facility] Level 5 Est. Patient 14:33:32 [facility] Level 3 Est. Patient 12:25:35 CDT Prosper Arenas MD [facility] Procedures Code Procedure Name Date Entry Date Standard Description CPT-72877 Chest, 2 views 14:17:20 COKE OVEN PATCHER CPT-59700 Postop F/U Visit 14:44:45 COKE OVEN PATCHER CPT-99442 Postop F/U Visit 17:20:20 COKE OVEN PATCHER CPT-G0439 [facility] Annual Wellness Exam 08:39:41 COKE OVEN PATCHER CPT-000 Give Appropriate Flu Vaccine 10:13:55 COKE OVEN PATCHER CPT-000 Give Immunizations Due 10:13:55 COKE OVEN PATCHER CPT-54086 HGBA1C - LAB USE ONLY 09:42:47 COKE OVEN PATCHER CPT-48362 TPSA - LAB USE ONLY 09:42:46 COKE OVEN PATCHER CPT-94978 Venipuncture Draw Fee 09:42:46 COKE OVEN PATCHER CPT-41956 Port a cath flush 13:33:18 COKE OVEN PATCHER CPT-92291 First Vx - Ix admin for Medicare patients 10:42:57 COKE OVEN PATCHER CPT-26010 Fluzone Preservative Free Intramuscular Suspension 10:42 :57 COKE OVEN PATCHER CPT-G0438 Initial Annual Wellness Exam 10:13:55 COKE OVEN PATCHER CPT-000 Give Appropriate Flu Vaccine 10:44:04 CDT CPT-000 Give Pneumovax 10:44:03 CDT CPT-10499 Port a cath flush 17:04:43 CDT CPT-32803 Prevnar 13 11:19:17 CDT CPT-48704 Fluzone Quadrivalent preservative free (>=3yrs.) 11:19: 17 CDT CPT-94494 Immunization Each Additional Inj 11:19:17 CDT CPT-05276 Immunization Single Admin 11:19:17 CDT CPT-45929 Port a cath flush 13:28:22 CDT CPT-TCMM Transitional Care Mgmt-Moderate 13:40:15 CDT CPT-G0008 Administration of Influenza Virus Vaccine 13:59:20 CDT CPT-23894 Fluzone High-Dose Intramuscular Suspension 13:59:20 CDT CPT-84288 Venipuncture Draw Fee 09:56:19 CDT CPT-OV Office Visit 15:46:10 CDT
--- OUTSIDE RECORDS SUMMARY | 2017-08-25 22:33 | XMS REPORT | Clinical Summary ---
Author Author Admin, IWONA Organization [employer] Address Unknown Phone Unavailable Allergies, Adverse Reactions, Alerts Allergy Name Reaction Description Start Date Severity Status Provider ERYTHROMYCIN Stomach cramps Moderate Active Prosper Arenas MD CODEINE Critical Active Maliheh Ziglari BUILDINGS AND GROUNDS COORDINATOR DARVOCET Critical Active Maliheh Ziglari BUILDINGS AND GROUNDS COORDINATOR LEVAQUIN Critical Active Maliheh Ziglari BUILDINGS AND GROUNDS COORDINATOR Conditions or Problems Problem Name Problem Code Onset Date Status Entry Date Provider Comment Standard Description Annotate Diabetes, Type 2 250.00 Resolved 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, 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 [...] type II, uncontrolled 250.02 Active Maliheh Rodrigoglari BUILDINGS AND GROUNDS COORDINATOR Diabetes mellitus without mention of complication, [...] with hyperglycemia 250.00 Active 03/21 Maliheh Ziglari BUILDINGS AND GROUNDS COORDINATOR Diabetes mellitus without mention of complication, type II or unspecified type, not stated as uncontrolled custodial use of insulin treatment V58.67 Active Luxiheh Rodrigoglari BUILDINGS AND GROUNDS COORDINATOR Long-term (current) use of insulin Diabetes mellitus, type II with hypoglycemia 250.80 Active 07/22 Maliheh Ziglari BUILDINGS AND GROUNDS COORDINATOR Diabetes mellitus with other specified manifestations, type II or unspecified type, not stated as uncontrolled 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 Maliheh Ziglari BUILDINGS AND GROUNDS COORDINATOR Diabetes mellitus with renal manifestations, type II or unspecified type, not stated as uncontrolled Wellness exam V70.0 Active Dee Palmer APRN Routine general medical examination at a health care facility Fitting and adjustment of vascular catheter V58.81 Active 02/06 Dee Palmer APRN Encounter for fitting and adjustment of vascular catheter Unawareness of hypoglycemia in diabetes mellitus, type II 250.80 Active Maliheh Ziglari BUILDINGS AND GROUNDS COORDINATOR Diabetes mellitus with other specified manifestations, [...] vascular catheter ICD-V58.81 Inactive Mekhi Dukes MD Hypokalemia ICD-276.8 Inactive Mekhi Dukes MD Cough ICD-786.2 Inactive Mekhi Dukes MD Headache ICD-784.0 Inactive Mekhi Dukes MD Diabetes, Type 2 ICD-250.00 Inactive Mekhi Dukes MD Medication List Medication Instructions Start Date Stop Date Generic Name NDC Status Provider Patient Instruction HYDROCODONE-ACETAMINOPHEN 7.5-325 MG ORAL TABLET 1-2 every 4-6 hrs prn 02/25 HYDROCODONE-ACETAMINOPHEN 94058039165 Active Marina Messina APRN Active ASPIRIN 81 MG ORAL TABLET 1 tablet by mouth daily ASPIRIN 05941797155 No Longer Active Marina Messina APRN Active SIMVASTATIN 80 MG ORAL TABLET 1/2 tablet daily SIMVASTATIN 69399650086 No Longer Active Mekhi Dukes MD Active OMEPRAZOLE 20 MG ORAL CAPSULE DELAYED RELEASE 1 qd OMEPRAZOLE 62162330650 No Longer Active Mekhi Dukes MD Active METOPROLOL TARTRATE 25 MG ORAL TABLET 1/2 tablet twice a day METOPROLOL TARTRATE 32685589889 No Longer Active Mekhi Dukes MD Active LISINOPRIL 5 MG ORAL TABLET 1 daily LISINOPRIL 12165703352 No Longer Active Mekhi Dukes MD Active NOVOLOG FLEXPEN 100 UNIT/ML SUBCUTANEOUS SOLUTION PEN-INJECTOR Take 8 units with each meal, add 1u/50 for blood sugars above 150. INSULIN ASPART 99769165427 Active Moy PARISH Active GABAPENTIN 300 MG ORAL CAPSULE 1 tab BID GABAPENTIN 33622627209 Active Tami Miller RN Active PREDNISONE 20 MG ORAL TABLET Take 2 daily for 3 days and then 1 daily for 3 days PREDNISONE 74494479704 No Longer Active Moy PARISH Active BENZONATATE 200 MG ORAL CAPSULE Take 1 tablet 3 times a day as needed for cough BENZONATATE 46128302367 No Longer Active Prosper Arenas MD Active HYDROCHLOROTHIAZIDE 25 MG ORAL TABLET 1 tablet by mouth daily HYDROCHLOROTHIAZIDE 81250881618 No Longer Active Prosper Arenas MD Active ACCU-CHEK JOANNA PLUS IN VITRO STRIP check blood sugars 5x a day, before each meal and bedtime and 15 minutes after treating a low blood. sugar GLUCOSE BLOOD 39817977638 Active Maliheh Ziglari BUILDINGS AND GROUNDS COORDINATOR Active LANTUS SOLOSTAR 100 UNIT/ML SUBCUTANEOUS SOLUTION PEN-INJECTOR Take 40 units at 7-8pm daily INSULIN GLARGINE 41305850339 Active Maliheh Ziglari BUILDINGS AND GROUNDS COORDINATOR Active MECLIZINE HCL 25 MG ORAL TABLET 1 daily needed for dizziness 2015 MECLIZINE HCL 09150562033 No Longer Active Maliheh Ziglari BUILDINGS AND GROUNDS COORDINATOR Active BENZONATATE 200 MG ORAL CAPSULE 1 tab, 2-3 times a day BENZONATATE 77775665240 No Longer Active Maliheh Ziglari BUILDINGS AND GROUNDS COORDINATOR Active HALOPERIDOL 0.5 MG ORAL TABLET one tablet three times a day HALOPERIDOL 62979174606 No Longer Active Maliheh Ziglari BUILDINGS AND GROUNDS COORDINATOR Active TRAZODONE HCL 50 MG ORAL TABLET three tablets at bed time TRAZODONE HCL 85314979544 No Longer Active Maliheh Ziglari BUILDINGS AND GROUNDS COORDINATOR Active REVLIMID 25 MG ORAL CAPSULE one capsule daily for 21 days then off for 7 days LENALIDOMIDE 86833074499 No Longer Active Maliheh Ziglari BUILDINGS AND GROUNDS COORDINATOR Active ZITHROMAX Z-EDDIE 250 MG ORAL TABLET 2 today, then 1 daily for 4 days AZITHROMYCIN 39629739453 No Longer Active Augustina Mata APRN Active NOVOLIN R RELION 100 UNIT/ML INJECTION SOLUTION 30- 40 units each meal sliding scale INSULIN REGULAR HUMAN 35254235465 No Longer Active Maliheh Ziglari BUILDINGS AND GROUNDS COORDINATOR Active CALCIUM 500/D 500-200 MG-UNIT ORAL TABLET one tablet daily CALCIUM CARBONATE-VITAMIN D 06856152805 Active Prosper Arenas MD Active HYDROCODONE-ACETAMINOPHEN 5-500 MG ORAL TABLET 1-2 FOUR TIMES A DAY, PRN 2010 HYDROCODONE-ACETAMINOPHEN 41922566694 No Longer Active Prosper Arenas MD Active DOXYCYCLINE HYCLATE 100 MG ORAL CAPSULE take one capsule by mouth twice daily for ten days DOXYCYCLINE HYCLATE 39051550174 No Longer Active Mekhi Dukes MD Active DOXYCYCLINE HYCLATE 100 MG ORAL CAPSULE take one capsule by mouth twice daily for ten days DOXYCYCLINE HYCLATE 100 MG ORAL CAPSULE 5260724 DOXYCYCLINE HYCLATE Inactive HALOPERIDOL 0.5 MG ORAL TABLET one tablet three times a day HALOPERIDOL 0.5 MG ORAL TABLET 947874 HALOPERIDOL Inactive HYDROCHLOROTHIAZIDE 25 MG ORAL TABLET 1 tablet by mouth daily HYDROCHLOROTHIAZIDE 25 MG ORAL TABLET 979044 HYDROCHLOROTHIAZIDE Inactive PREDNISONE 20 MG ORAL TABLET Take 2 daily for 3 days and then 1 daily for 3 days PREDNISONE 20 MG ORAL TABLET 761911 PREDNISONE Inactive TRAZODONE HCL 50 MG ORAL TABLET three tablets at bed time TRAZODONE HCL 50 MG ORAL TABLET 323541 TRAZODONE HCL Inactive ASPIRIN 81 MG ORAL TABLET 1 tablet by mouth daily ASPIRIN 81 MG ORAL TABLET 790476 ASPIRIN Inactive LISINOPRIL 5 MG ORAL TABLET 1 daily LISINOPRIL 5 MG ORAL TABLET 368524 LISINOPRIL Inactive MECLIZINE HCL 25 MG ORAL TABLET 1 daily needed for dizziness 2015 MECLIZINE HCL 25 MG ORAL TABLET 599734 MECLIZINE HCL Inactive HYDROCODONE-ACETAMINOPHEN 5-500 MG ORAL TABLET 1-2 FOUR TIMES A DAY, PRN 2010 HYDROCODONE-ACETAMINOPHEN 5-500 MG ORAL TABLET 978515 HYDROCODONE-ACETAMINOPHEN Inactive SIMVASTATIN 80 MG ORAL TABLET 1/2 tablet daily SIMVASTATIN 80 MG ORAL TABLET 252886 SIMVASTATIN Inactive BENZONATATE 200 MG ORAL CAPSULE Take 1 tablet 3 times a day as needed for cough BENZONATATE 200 MG ORAL CAPSULE 060326 BENZONATATE Inactive BENZONATATE 200 MG ORAL CAPSULE 1 tab, 2-3 times a day BENZONATATE 200 MG ORAL CAPSULE 869047 BENZONATATE Inactive OMEPRAZOLE 20 MG ORAL CAPSULE DELAYED RELEASE 1 qd OMEPRAZOLE 20 MG ORAL CAPSULE DELAYED RELEASE 808759 OMEPRAZOLE Inactive ZITHROMAX Z-EDDIE 250 MG ORAL TABLET 2 today, then 1 daily for 4 days ZITHROMAX Z-EDDIE 250 MG ORAL TABLET 722396 AZITHROMYCIN Inactive METOPROLOL TARTRATE 25 MG ORAL TABLET 1/2 tablet twice a day METOPROLOL TARTRATE 25 MG ORAL TABLET 664337 METOPROLOL TARTRATE Inactive REVLIMID 25 MG ORAL [...] W/DIFF - Chemistry sodium, serum 137 mmol/L 514-017 7949/08/16 carbon dioxide, venous blood 26.3 mmol/L 21.0-32.0 [...] 4.3-6.0 Lab Report: Lipid Panel, Glucose- [facility] - Chemistry cholesterol, serum 115 mg/dL 286-931 8413/08/18 triglyceride, serum, fasting 89 mg/dL 30-200 HDL cholesterol, serum 46 mg/dL 32-60 LDL cholesterol, serum 51 mg/dL 0-130 blood glucose 104 mg/dL 65-110 Lab Report: LIPID PANEL- REPOWER LAB - Chemistry cholesterol, serum 156 mg/dL 695-110 5729/02/20 HDL cholesterol, serum 52 mg/dL > OR=40 [...] mg/dL Encounters Code Encounter Date Provider Facility CPT-01342 Level 3 Est. Patient 17:11:55 FURNACE ROASTER Ismael Gracia MD [facility] CPT-99490 Level 4 Est. Patient 16:29:19 CDT Mekhi Dukes MD [facility] CPT-61128 Level 3 New Patient 17:05:24 CDT Ismael Gracia MD [facility] CPT-09574 Level 2 Est. Patient 15:43:17 CDT Mekhi Dukes MD [facility] CPT-30574 Level 3 Est. Patient 09:30:37 CDT [facility] Level 3 Est. Patient 10:00:14 CDT Mekhi Dukes MD [facility] CPT-26125 Level 3 Est. Patient 12:24:09 CDT [facility] CPT-03117 Level 3 Est. Patient 14:34:57 CDT Prosper Arenas MD [facility] CPT-31107 Level 3 New Patient 15:44:53 FURNACE ROASTER Mekhi Dukes MD [facility] CPT-78519 Level 3 Est. Patient 14:53:34 FURNACE ROASTER Prosper Arenas MD [facility] CPT-50690 Level 4 Est. Patient 10:05:41 FURNACE ROASTER [facility] CPT-89881 Level 3 Est. Patient 11:18:32 CDT [facility] CPT-73960 Level 4 Est. Patient 11:05:10 CDT [facility] CPT-39198 Level 3 Est. Patient 11:08:27 FURNACE ROASTER Moy Garcia [facility] CPT-42065 Level 4 Est. Patient 10:43:59 CDT Prosper Arenas MD [facility] CPT-52109 Level 3 Est. Patient 10:51:19 CDT Moy Garcia [facility] CPT-08000 Level 3 Est. Patient 10:20:31 CDT Moy Garcia [facility] CPT-42091 Level 3 Est. Patient 17:08:45 [facility] CPT-08456 Level 2 Est. Patient 13:54:36 CDT Augustina Mata APRN [facility] CPT-24908 Level 3 Est. Patient 12:00:42 CDT Prosper Arenas MD [facility] CPT-67752 Level 3 Est. Patient 09:57:28 FURNACE ROASTER Moy Garcia [facility] CPT-39391 Level 3 Est. Patient 11:41:19 FURNACE ROASTER Luxshoaib Garcia [facility] CPT-85213 Level 4 Est. Patient 17:07:35 FURNACE ROASTER Moy Garcia [facility] CPT-03423 Level 5 Est. Patient 14:33:32 CDT Moy Garcia [facility] CPT-85806 Level 3 Est. Patient 12:25:35 CDT Prosper Arenas MD [facility] Procedures Code Procedure Name Date Entry Date Standard Description CPT-80007 Postop F/U Visit 17:20:20 FURNACE ROASTER CPT-G0439 [facility] Annual Wellness Exam 08:39:41 FURNACE ROASTER CPT-000 Give Appropriate Flu Vaccine 10:13:55 FURNACE ROASTER CPT-000 Give Immunizations Due 10:13:55 FURNACE ROASTER CPT-14118 HGBA1C - LAB USE ONLY 09:42:47 FURNACE ROASTER CPT-19526 TPSA - LAB USE ONLY 09:42:46 FURNACE ROASTER CPT-54430 Venipuncture Draw Fee 09:42:46 FURNACE ROASTER CPT-65922 Port a cath flush 13:33:18 FURNACE ROASTER CPT-47907 First Vx - Ix admin for Medicare patients 10:42:57 FURNACE ROASTER CPT-68037 Fluzone Preservative Free Intramuscular Suspension 10:42 :57 FURNACE ROASTER CPT-G0438 Initial Annual Wellness Exam 10:13:55 FURNACE ROASTER CPT-000 Give Appropriate Flu Vaccine 10:44:04 CDT CPT-000 Give Pneumovax 10:44:03 CDT CPT-35573 Port a cath flush 17:04:43 CDT CPT-40779 Prevnar 13 11:19:17 CDT CPT-95703 Fluzone Quadrivalent preservative free (>=3yrs.) 11:19: 17 CDT CPT-52554 Immunization Each Additional Inj 11:19:17 CDT CPT-19944 Immunization Single Admin 11:19:17 CDT CPT-61351 Port a cath flush 13:28:22 CDT CPT-TCMM Transitional Care Mgmt-Moderate 13:40:15 CDT CPT-G0008 Administration of Influenza Virus Vaccine 13:59:20 CDT CPT-48874 Fluzone High-Dose Intramuscular Suspension 13:59:20 CDT CPT-26481 Venipuncture Draw Fee 09:56:19 CDT CPT-OV Office Visit 15:46:10 CDT
--- OUTSIDE RECORDS SUMMARY | 2017-08-25 22:34 | XMS REPORT | Clinical Summary ---
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, 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 [...] type II, uncontrolled 250.02 Active Maliheh Rodrigoglari COYOTE HUNTER Diabetes mellitus without mention of complication, type [...] with hyperglycemia 250.00 Active 03/21 Maliheh Ziglari COYOTE HUNTER Diabetes mellitus without mention of complication, type II or unspecified type, not stated as uncontrolled [facility] use of insulin treatment V58.67 Active Luxiheh Rodrigoglari COYOTE HUNTER Long-term (current) use of insulin Diabetes mellitus, type II with hypoglycemia 250.80 Active 07/22 Maliheh Ziglari COYOTE HUNTER Diabetes mellitus with other specified manifestations, type II or unspecified type, not stated as uncontrolled 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 INSULIN ASPART 76064917940 Active Moy DURANTP Active GABAPENTIN 300 MG ORAL CAPS 1 tab BID GABAPENTIN 30968367785 Active Tami Miller RN Active PREDNISONE 20 MG TABS Take 2 daily for 3 days and then 1 daily for 3 days PREDNISONE 31749456330 No Longer Active Maliheh Ziglari COYOTE HUNTER Active BENZONATATE 200 MG CAPS Take 1 tablet 3 times a day as needed for cough 07/29 BENZONATATE 62595375189 No Longer Active Prosper Arenas MD Active HYDROCHLOROTHIAZIDE 25 MG TABS 1 tablet by mouth daily HYDROCHLOROTHIAZIDE 71364623592 No Longer Active Prosper Arenas MD Active ACCU-CHEK JOANNA PLUS STRP check blood sugars 5x a day, before each meal and bedtime and 15 minutes after treating a low blood. sugar GLUCOSE BLOOD 70966980107 Active Maliheh Ziglari COYOTE HUNTER Active LANTUS SOLOSTAR 100 UNIT/ML SOLN Take 40 units at 7-8pm daily INSULIN GLARGINE 12280340674 Active Maliheh Ziglari COYOTE HUNTER Active MECLIZINE HCL 25 MG TABS 1 daily needed for dizziness MECLIZINE HCL 04397954357 No Longer Active Maliheh Ziglari COYOTE HUNTER Active BENZONATATE 200 MG CAPS 1 tab, 2-3 times a day BENZONATATE 62139070600 No Longer Active Maliheh Ziglari COYOTE HUNTER Active HALOPERIDOL 0.5 MG TABS one tablet three times a day HALOPERIDOL 67391448016 No Longer Active Maliheh Ziglari COYOTE HUNTER Active TRAZODONE HCL 50 MG TAB three tablets at bed time TRAZODONE HCL 00064220864 No Longer Active Maliheh Ziglari COYOTE HUNTER Active REVLIMID 25 MG CAPS one capsule daily for 21 days then off for 7 days 2014 LENALIDOMIDE 91856295594 No Longer Active Maliheh Ziglari COYOTE HUNTER Active ZITHROMAX Z-EDDIE 250 MG TABS 2 today, then 1 daily for 4 days 2014 AZITHROMYCIN 97160840969 No Longer Active Augustina Mata GARAGE DOOR INSTALLER Active NOVOLIN R RELION 100 UNIT/ML INJ SOLN 30- 40 units each meal sliding scale INSULIN REGULAR HUMAN 88254327489 No Longer Active Moy PARISH Active LISINOPRIL 5 MG TABS 1 daily LISINOPRIL 05215621961 Active Prosper Arenas MD Active CALCIUM 500/D 500-200 MG-UNIT TABS one tablet daily CALCIUM CARBONATE- VITAMIN D 70422785873 Active Prosper Arenas MD Active HYDROCODONE-ACETAMINOPHEN 5-500 MG TABS 1-2 FOUR TIMES A DAY, PRN HYDROCODONE-ACETAMINOPHEN 83680511810 No Longer Active Prosper Arenas MD Active SIMVASTATIN 80 MG TABS 1/2 tablet daily SIMVASTATIN 05889519189 Active Prosper Arenas MD Active METOPROLOL TARTRATE 25 MG TABS 1/2 tablet twice a day METOPROLOL TARTRATE 61437114364 Active Prosper Arenas MD Active ASPIRIN 81 MG TAB 1 tablet by mouth daily ASPIRIN 75804685884 Active Prosper Arenas MD Active OMEPRAZOLE 20 MG CPDR 1 qd OMEPRAZOLE 84993622968 Active DARCIE Miller Active DOXYCYCLINE HYCLATE 100 MG CAPS take one capsule by mouth twice daily for ten days DOXYCYCLINE HYCLATE 30626261752 No Longer Active Mekhi Dukes MD Active DOXYCYCLINE HYCLATE 100 MG CAPS take one capsule by mouth twice daily for ten days DOXYCYCLINE HYCLATE 100 MG CAPS 3301013 DOXYCYCLINE HYCLATE Inactive HYDROCODONE-ACETAMINOPHEN 5-500 MG TABS [...] days 2014 ZITHROMAX Z-EDDIE 250 MG TABS 0993221 AZITHROMYCIN Inactive REVLIMID 25 MG CAPS one capsule daily for 21 days then off for 7 days 2014 REVLIMID 25 MG CAPS LENALIDOMIDE Inactive TRAZODONE HCL 50 MG TAB three tablets at bed time TRAZODONE HCL 50 MG TAB 203889 TRAZODONE HCL Inactive HALOPERIDOL 0.5 MG TABS one tablet three times a day HALOPERIDOL 0.5 MG TABS 084035 HALOPERIDOL Inactive BENZONATATE 200 MG CAPS 1 tab, 2-3 times a day BENZONATATE 200 MG CAPS 170740 BENZONATATE Inactive MECLIZINE HCL 25 MG TABS 1 daily needed for dizziness MECLIZINE HCL 25 MG TABS 036504 MECLIZINE HCL Inactive HYDROCHLOROTHIAZIDE 25 MG TABS 1 tablet by mouth daily HYDROCHLOROTHIAZIDE 25 MG TABS 809342 HYDROCHLOROTHIAZIDE Inactive PREDNISONE 20 MG TABS Take 2 daily for 3 days and then 1 daily for 3 days PREDNISONE 20 MG TABS 064678 PREDNISONE Inactive BENZONATATE 200 MG CAPS Take 1 tablet 3 times a day as needed for cough 07/29 BENZONATATE 200 MG CAPS 953903 BENZONATATE Inactive Immunizations Vaccine Administration Date Value [...] W/DIFF - Chemistry sodium, serum 137 mmol/L 491-224 3502/08/16 carbon dioxide, venous blood 26.3 mmol/L 21.0-32.0 [...] LABS - Chemistry cholesterol, serum 115 mg/dL 577-851 3405/08/18 triglyceride, serum, fasting 89 mg/dL 30-200 HDL cholesterol, serum 46 mg/dL 32-60 LDL cholesterol, serum 51 mg/dL 0-130 blood glucose 104 mg/dL 65-110 Lab Report: LIPID PANEL- REPOWER LAB - Chemistry cholesterol, serum 156 mg/dL 355-028 6504/02/20 HDL cholesterol, serum 52 mg/dL > OR=40 [...] mg/dL Encounters Code Encounter Date Provider Facility CPT-48980 Level 3 Est. [facility] 09:30:37 [facility] CPT-28584 Level 3 Est. Patient 10:00:14 CDT Mekhi Dukes MD [facility] CPT-61369 Level 3 Est. Patient 12:24:09 [facility] Level 3 Est. Patient 14:34:57 CDT Prosper Arenas MD [facility] CPT-66645 Level 3 New Patient 15:44:53 FIG CAPRIFIER Mekhi Dukes MD [facility] CPT-00959 Level 3 Est. Patient 14:53:34 FIG CAPRIFIER Prosper Arenas MD [facility] CPT-95804 Level 4 Est. Patient 10:05:41 FIG CAPRIFIER [facility] CPT-12094 Level 3 Est. [facility] 11:18:[facility] CPT-00379 Level 4 Est. Patient 11:05:10 [facility] CPT-65815 Level 3 Est. Patient 11:08:27 FIG CAPRIFIER [facility] CPT-71248 Level 4 Est. Patient 10:43:59 CDT Prosper Arenas MD [facility] CPT-64513 Level 3 Est. Patient 10:51:19 [facility]T [facility] Level 3 Est. Patient 10:20:31 CDT [facility] CPT-52019 Level 3 Est. Patient 17:08:45 CDT [facility] CPT-68635 Level 2 Est. Patient 13:54:36 CDT Augustina Mata APRN [facility] CPT-11218 Level 3 Est. Patient 12:00:42 CDT Prosper Arenas MD [facility] CPT-80527 Level 3 Est. Patient 09:57:[address] [facility] CPT-98812 Level 3 Est. Patient 11:41:19 [facility] CAP[facility]IFIER [facility] Level 4 Est. Patient 17:07:35 FIG CAPRIFIER [facility] CPT-91079 Level 5 Est. Patient 14:33:32 [facility] CPT-98194 Level 3 Est. Patient 12:25:35 CDT Prosper Arenas MD [facility] Procedures Code Procedure Name Date Entry Date Standard Description CPT-000 Give Appropriate Flu Vaccine 10:13:55 FIG CAPRIFIER CPT-000 Give Immunizations Due 10:13:55 FIG CAPRIFIER CPT-66859 HGBA1C - LAB USE ONLY 09:42:47 FIG CAPRIFIER CPT-39147 TPSA - LAB USE ONLY 09:42:46 FIG CAPRIFIER CPT-35698 Venipuncture Draw Fee 09:42:46 FIG CAPRIFIER CPT-20556 Port a cath flush 13:33:18 FIG CAPRIFIER CPT-14057 First Vx - Ix admin for Medicare patients 10:42:57 FIG CAPRIFIER CPT-10852 Fluzone Preservative Free Intramuscular Suspension 10:42 :57 FIG CAPRIFIER CPT-G0438 Initial Annual Wellness Exam 10:13:55 FIG CAPRIFIER CPT-000 Give Appropriate Flu Vaccine 10:44:04 CDT CPT-000 Give Pneumovax 10:44:03 CDT CPT-20093 Port a cath flush 17:04:43 CDT CPT-21410 Prevnar 13 11:19:17 CDT CPT-18575 Fluzone Quadrivalent preservative free (>=3yrs.) 11:19: 17 CDT CPT-50213 Immunization Each Additional Inj 11:19:17 CDT CPT-51228 Immunization Single Admin 11:19:17 CDT CPT-31630 Port a cath flush 13:28:22 CDT CPT-TCMM Transitional Care Mgmt-Moderate 13:40:15 CDT CPT-G0008 Administration of Influenza Virus Vaccine 13:59:20 CDT CPT-57785 Fluzone High-Dose Intramuscular Suspension 13:59:20 CDT CPT-09523 Venipuncture Draw Fee 09:56:19 CDT CPT-OV Office Visit 15:46:10 CDT
--- OUTSIDE RECORDS SUMMARY | 2017-08-25 22:35 | XMS REPORT | Clinical Summary ---
Author Author Admin, [place] Organization [facility] [employer] Address Unknown Phone Unavailable Allergies, Adverse Reactions, Alerts Allergy Name Reaction Description Start Date Severity Status Provider ERYTHROMYCIN Stomach cramps Moderate Active Prosper Arenas MD CODEINE Critical Active Maliheh Ziglari SWITCH INSPECTOR DARVOCET Critical Active Maliheh Ziglari SWITCH INSPECTOR LEVAQUIN Critical Active Maliheh Ziglari SWITCH INSPECTOR Conditions or Problems Problem Name Problem Code Onset Date Status Entry Date Provider Comment Standard Description Annotate Diabetes, Type 2 250.00 Resolved Tami Miller warp starter mellitus without mention of complication, type II [...] type II, uncontrolled 250.02 Active Maliheh Ziglari SWITCH INSPECTOR Diabetes mellitus without mention of complication, [...] with hyperglycemia 250.00 Active 03/21 Maliheh Ziglari SWITCH INSPECTOR Diabetes mellitus without mention of complication, type II or unspecified type, not stated as uncontrolled custodial use of insulin treatment V58.67 Active Luxiheh Rodrigoglari SWITCH INSPECTOR Long-term (current) use of insulin Diabetes mellitus, type II with hypoglycemia 250.80 Active 07/22 Maliheh Ziglari SWITCH INSPECTOR Diabetes mellitus with other specified manifestations, type II or unspecified type, not stated as uncontrolled 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 Maliheh Ziglari SWITCH INSPECTOR Diabetes mellitus with renal manifestations, type II or unspecified type, not stated as uncontrolled Wellness exam V70.0 Active Dee Palmer APRN Routine general medical examination at a health care facility Fitting and adjustment of vascular catheter V58.81 Active 02/06 Dee Palmer APRN Encounter for fitting and adjustment of vascular catheter Unawareness of hypoglycemia in diabetes mellitus, type II 250.80 Active Maliheh Rodrigoglari SWITCH INSPECTOR Diabetes mellitus with other specified manifestations, [...] specified as recurrent) Gastritis Inactive Maliheh Ziglari SWITCH INSPECTOR Unspecified gastritis and gastroduodenitis, without mention of [...] po qd x 4 days 05/07 AZITHROMYCIN 61032034304 No Longer Active Dee Palmer APRN Active GUAIFENESIN DM 400-20 MG ORAL TABLET 1 pill by mouth twice daily, if needed for cough DEXTROMETHORPHAN-GUAIFENESIN 52755241076 Active Dee Palmer APRN Active PREDNISONE 20 MG ORAL TABLET 2 tabs daily for 4 days, 1 tab daily for 4 days, 1/2 tab daily for 4 days PREDNISONE 33106104413 Active Dee Palmer APRN Active ASPIRIN 81 MG ORAL TABLET 1 po qd ASPIRIN 69185373180 Active Dee Palmer APRN Active CALCIUM 500/D 500-200 MG-UNIT ORAL TABLET one tablet daily CALCIUM CARBONATE-VITAMIN D 77494994560 No Longer Active Trinhvito Barkleyngoc SALES DEVELOPMENT DIRECTOR Active HYDROCODONE-ACETAMINOPHEN 7.5-325 MG ORAL TABLET 1-2 every 4-6 hrs prn 02/25 HYDROCODONE-ACETAMINOPHEN 21646901763 Active Marina Messina SALES DEVELOPMENT DIRECTOR Active ASPIRIN 81 MG ORAL TABLET 1 tablet by mouth daily ASPIRIN 45690389531 No Longer Active Marina Messina SALES DEVELOPMENT DIRECTOR Active SIMVASTATIN 80 MG ORAL TABLET 1/2 tablet daily SIMVASTATIN 15360812293 No Longer Active Mekhi Dukes MD Active OMEPRAZOLE 20 MG ORAL CAPSULE DELAYED RELEASE 1 qd OMEPRAZOLE 86458585601 No Longer Active Mekhi Dukes MD Active METOPROLOL TARTRATE 25 MG ORAL TABLET 1/2 tablet twice a day METOPROLOL TARTRATE 93274443514 No Longer Active Mekhi Dukes MD Active LISINOPRIL 5 MG ORAL TABLET 1 daily LISINOPRIL 27646874682 No Longer Active Mekhi Dukes MD Active NOVOLOG FLEXPEN 100 UNIT/ML SUBCUTANEOUS SOLUTION PEN-INJECTOR Take 8 units with each meal, add 1u/50 for blood sugars above 150. INSULIN ASPART 36997677519 Active Moy PARISH Active GABAPENTIN 300 MG ORAL CAPSULE 1 tab BID GABAPENTIN 67787624294 Active Tami Miller RN Active PREDNISONE 20 MG ORAL TABLET Take 2 daily for 3 days and then 1 daily for 3 days PREDNISONE 50282662553 No Longer Active Moy PARISH Active BENZONATATE 200 MG ORAL CAPSULE Take 1 tablet 3 times a day as needed for cough BENZONATATE 34959355183 No Longer Active Prosper Arenas MD Active HYDROCHLOROTHIAZIDE 25 MG ORAL TABLET 1 tablet by mouth daily HYDROCHLOROTHIAZIDE 98289535174 No Longer Active Prosper Arenas MD Active ACCU-CHEK JOANNA PLUS IN VITRO STRIP check blood sugars 5x a day, before each meal and bedtime and 15 minutes after treating a low blood. sugar GLUCOSE BLOOD 17102234142 Active Malpapo Wallaceglrex PARISH Active LANTUS SOLOSTAR 100 UNIT/ML SUBCUTANEOUS SOLUTION PEN-INJECTOR Take 40 units at 7-8pm daily INSULIN GLARGINE 80167956528 Active Maliheh Ziglari SWITCH INSPECTOR Active MECLIZINE HCL 25 MG ORAL TABLET 1 daily needed for dizziness 2015 MECLIZINE HCL 10641831248 No Longer Active Maliheh Ziglari SWITCH INSPECTOR Active BENZONATATE 200 MG ORAL CAPSULE 1 tab, 2-3 times a day BENZONATATE 82784534097 No Longer Active Maliheh Ziglari SWITCH INSPECTOR Active HALOPERIDOL 0.5 MG ORAL TABLET one tablet three times a day HALOPERIDOL 80653368184 No Longer Active Maliheh Ziglari SWITCH INSPECTOR Active TRAZODONE HCL 50 MG ORAL TABLET three tablets at bed time TRAZODONE HCL 54377115796 No Longer Active Maliheh Ziglari SWITCH INSPECTOR Active REVLIMID 25 MG ORAL CAPSULE one capsule daily for 21 days then off for 7 days LENALIDOMIDE 82521650051 No Longer Active Maliheh Ziglari SWITCH INSPECTOR Active ZITHROMAX Z-EDDIE 250 MG ORAL TABLET 2 today, then 1 daily for 4 days AZITHROMYCIN 69714763400 No Longer Active Augustina Mata APRN Active NOVOLIN R RELION 100 UNIT/ML INJECTION SOLUTION 30- 40 units each meal sliding scale INSULIN REGULAR HUMAN 70084277110 No Longer Active Maliheh Ziglari SWITCH INSPECTOR Active HYDROCODONE-ACETAMINOPHEN 5-500 MG ORAL TABLET 1-2 FOUR TIMES A DAY, PRN 2010 HYDROCODONE-ACETAMINOPHEN 95252027859 No Longer Active Prosper Arenas MD Active DOXYCYCLINE HYCLATE 100 MG ORAL CAPSULE take one capsule by mouth twice daily for ten days DOXYCYCLINE HYCLATE 86699599189 No Longer Active Mekhi Dukes MD Active DOXYCYCLINE HYCLATE 100 MG ORAL CAPSULE take one capsule by mouth twice daily for ten days DOXYCYCLINE HYCLATE 100 MG ORAL CAPSULE 6325747 DOXYCYCLINE HYCLATE Inactive HYDROCODONE-ACETAMINOPHEN 5-500 MG ORAL TABLET 1-2 FOUR TIMES A DAY, PRN 2010 HYDROCODONE-ACETAMINOPHEN 5-500 MG ORAL TABLET 803863 HYDROCODONE-ACETAMINOPHEN Inactive NOVOLIN R RELION 100 UNIT/ML INJECTION SOLUTION 30- 40 units each meal sliding scale NOVOLIN R RELION 100 UNIT/ML INJECTION SOLUTION INSULIN REGULAR HUMAN Inactive ZITHROMAX Z-EDDIE 250 MG ORAL TABLET 2 today, then 1 daily for 4 days ZITHROMAX Z-EDDIE 250 MG ORAL TABLET 709276 AZITHROMYCIN Inactive REVLIMID 25 MG ORAL CAPSULE one capsule daily for 21 days then off for 7 days REVLIMID 25 MG ORAL CAPSULE LENALIDOMIDE Inactive TRAZODONE HCL 50 MG ORAL TABLET three tablets at bed time TRAZODONE HCL 50 MG ORAL TABLET 645220 TRAZODONE HCL Inactive HALOPERIDOL 0.5 MG ORAL TABLET one tablet three times a day HALOPERIDOL 0.5 MG ORAL TABLET 412482 HALOPERIDOL Inactive BENZONATATE 200 MG ORAL CAPSULE 1 tab, 2-3 times a day BENZONATATE 200 MG ORAL CAPSULE 946906 BENZONATATE Inactive MECLIZINE HCL 25 MG ORAL TABLET 1 daily needed for dizziness 2015 MECLIZINE HCL 25 MG ORAL TABLET 018514 MECLIZINE HCL Inactive HYDROCHLOROTHIAZIDE 25 MG ORAL TABLET 1 tablet by mouth daily HYDROCHLOROTHIAZIDE 25 MG ORAL TABLET 919425 HYDROCHLOROTHIAZIDE Inactive PREDNISONE 20 MG ORAL TABLET Take 2 daily for 3 days and then 1 daily for 3 days PREDNISONE 20 MG ORAL TABLET 580324 PREDNISONE Inactive LISINOPRIL 5 MG ORAL TABLET 1 daily LISINOPRIL 5 MG ORAL TABLET 131070 LISINOPRIL Inactive METOPROLOL TARTRATE 25 MG ORAL TABLET 1/2 tablet twice a day METOPROLOL TARTRATE 25 MG ORAL TABLET 184658 METOPROLOL TARTRATE Inactive OMEPRAZOLE 20 MG ORAL CAPSULE DELAYED RELEASE 1 qd OMEPRAZOLE 20 MG ORAL CAPSULE DELAYED RELEASE 368865 OMEPRAZOLE Inactive SIMVASTATIN 80 MG ORAL TABLET 1/2 tablet daily SIMVASTATIN 80 MG ORAL TABLET 800617 SIMVASTATIN Inactive ASPIRIN 81 MG ORAL TABLET 1 tablet by mouth daily ASPIRIN 81 MG ORAL TABLET 936561 ASPIRIN Inactive CALCIUM 500/D 500-200 MG-UNIT ORAL TABLET one tablet daily CALCIUM 500/D 500-200 MG-UNIT ORAL TABLET CALCIUM CARBONATE-VITAMIN D Inactive BENZONATATE 200 MG ORAL CAPSULE Take 1 tablet 3 times a day as needed for cough BENZONATATE 200 MG ORAL CAPSULE 223091 BENZONATATE Inactive AZITHROMYCIN 250 MG ORAL TABLET 2 po qd x 1 day, then 1 po qd x 4 days 05/07 AZITHROMYCIN 250 MG ORAL TABLET 217702 AZITHROMYCIN Inactive Immunizations Vaccine Administration Date Value [...] Panel - Chemistry sodium, serum 135 mmol/L 690-329 7106/04/10 carbon dioxide, venous blood 26.1 mmol/L 21.0-32.0 potassium, serum 4.2 mmol/L 3.5-5.2 chloride, serum 100 mmol/L 98-107 blood glucose 293 mg/dL 65-110 urea nitrogen, blood 18 mg/dL 7-18 creatinine, serum 2.06 mg/dL 0.60-1.30 alanine aminotransferase (SGPT), serum 59 U/L - aspartate aminotransferase (SGOT), serum 47 U/L 15-37 calcium, serum 8.6 mg/dL 8.5-10.1 bilirubin, serum, total 0.30 mg/dL 0.00-1.00 sodium, serum 139 mmol/L 100-141 3807/05/01 carbon dioxide, venous blood 25.2 mmol/L 21.0-32.0 potassium, serum 4.1 mmol/L 3.5-5.2 chloride, serum 104 mmol/L 98-107 blood glucose 64 mg/dL 65-95 urea nitrogen, blood 16 mg/dL 7-18 creatinine, serum 1.55 mg/dL 0.60-1.30 alanine aminotransferase (SGPT), serum 80 U/L - aspartate aminotransferase (SGOT), serum 53 U/L 15-37 calcium, serum 8.1 mg/dL 8.5-10.1 bilirubin, serum, total 0.40 mg/dL 0.00-1.00 sodium, serum 135 mmol/L 822-914 1750/05/08 carbon dioxide, venous blood 29.0 mmol/L 21.0-32.0 potassium, serum 4.8 mmol/L 3.5-5.2 chloride, serum 101 mmol/L 98-107 blood glucose 165 mg/dL 65-95 urea nitrogen, blood 19 mg/dL 7-18 creatinine, serum 1.51 mg/dL 0.60-1.30 alanine aminotransferase (SGPT), serum 65 U/L 12-78 aspartate aminotransferase (SGOT), serum 38 U/L 15-37 calcium, serum 8.2 mg/dL 8.5-10.1 bilirubin, serum, total 0.50 mg/dL 0.00-1.00 sodium, serum 134 mmol/L 629-756 2142/05/15 carbon dioxide, venous blood 23.5 mmol/L 21.0-32.0 [...] % 11.6-14.8 platelet count 36 10^3/MM^3 10*3/mm3 273-712 1131/05/08 leukocyte count, blood 1.8 10^3/MM^3 10*3/mm3 4.6-10.2 [...] % 11.6-14.8 platelet count 103 10^3/MM^3 10*3/mm3 980-723 2066/05/01 leukocyte count, blood 5.0 10^3/MM^3 10*3/mm3 4.6-10.2 [...] % 11.6-14.8 platelet count 271 10^3/MM^3 10*3/mm3 006-514 6417/04/10 leukocyte count, blood 4.8 10^3/MM^3 10*3/mm3 4.6-10.2 [...] W/DIFF - Chemistry sodium, serum 137 mmol/L 597-361 5018/08/16 carbon dioxide, venous blood 26.3 mmol/L 21.0-32.0 [...] LABS - Chemistry cholesterol, serum 115 mg/dL 013-642 0354/08/18 triglyceride, serum, fasting 89 mg/dL 30-200 HDL [...] mg/dL Encounters Code Encounter Date Provider Facility CPT-83332 Level 3 Est. Patient 14:09:25 REGULATORY AFFAIRS MANAGER Dee Palmer APRN [facility] CPT-36412 Level 3 Est. Patient 10:53:32 REGULATORY AFFAIRS MANAGER Moy PARISH [facility] CPT-71310 Level 3 Est. Patient 17:11:55 REGULATORY AFFAIRS MANAGER Ismael Gracia MD [facility] CPT-17940 Level 4 Est. Patient 16:29:19 CDT Mekhi Dukes MD [facility] CPT-58872 Level 3 New Patient 17:05:24 CDT Ismael Gracia MD [facility] CPT-65975 Level 2 Est. Patient 15:43:17 CDT Mekhi Dukes MD [facility] CPT-67962 Level 3 Est. Patient 09:30:37 CDT Luxcarissashoaib Jose [facility] CPT-05580 Level 3 Est. Patient 10:00:14 CDT Mekhi Dukes MD [facility] CPT-01695 Level 3 Est. Patient 12:24:09 CDT Luxcarissashoaib Jose [facility] CPT-76117 Level 3 Est. Patient 14:34:57 CDT Prosper Arenas MD [facility] CPT-15964 Level 3 New Patient 15:44:53 REGULATORY AFFAIRS MANAGER Mekhi Dukes MD [facility] CPT-98885 Level 3 Est. Patient 14:53:34 REGULATORY AFFAIRS MANAGER Prosper Arenas MD [facility] CPT-78392 Level 4 Est. Patient 10:05:41 REGULATORY AFFAIRS MANAGER Luxpapo Garcia [facility] CPT-37909 Level 3 Est. Patient 11:18:32 CDT Luxcarissashoaib Jose [facility] CPT-11942 Level 4 Est. Patient 11:05:10 CDT Luxcarissashoaib Jose [facility] CPT-06129 Level 3 Est. Patient 11:08:27 REGULATORY AFFAIRS MANAGER Moy Garcia [facility] CPT-45128 Level 4 Est. Patient 10:43:59 CDT Prosper Arenas MD [facility] CPT-65833 Level 3 Est. Patient 10:51:19 CDT Moy Garcia [facility] CPT-73606 Level 3 Est. Patient 10:20:31 CDT Moy Garcia [facility] CPT-79767 Level 3 Est. Patient 17:08:45 [facility] Level 2 Est. Patient 13:54:36 CDT Augustina Mata BESSY [facility] CPT-58731 Level 3 Est. Patient 12:00:42 CDT Prosper Arenas MD [facility] CPT-08304 Level 3 Est. Patient 09:57:28 REGULATORY AFFAIRS MANAGER Luxshoaib Garcia [facility] CPT-08513 Level 3 Est. Patient 11:41:19 REGULATORY AFFAIRS MANAGER [facility]166 Level 4 Est. Patient 17:07:35 REGULATORY AFFAIRS MANAGER [facility] CPT-25359 Level 5 Est. Patient 14:33:32 CDT [facility] CPT-96794 Level 3 Est. Patient 12:25:35 CDT Prosper Arenas MD [facility] Procedures Code Procedure Name Date Entry Date Standard Description CPT-59800 Chest, 2 views 14:17:20 REGULATORY AFFAIRS MANAGER CPT-99707 Postop F/U Visit 14:44:45 REGULATORY AFFAIRS MANAGER CPT-77477 Postop F/U Visit 17:20:20 REGULATORY AFFAIRS MANAGER CPT-G0439 [facility] Annual Wellness Exam 08:39:41 REGULATORY AFFAIRS MANAGER CPT-000 Give Appropriate Flu Vaccine 10:13:55 REGULATORY AFFAIRS MANAGER CPT-000 Give Immunizations Due 10:13:55 REGULATORY AFFAIRS MANAGER CPT-66281 HGBA1C - LAB USE ONLY 09:42:47 REGULATORY AFFAIRS MANAGER CPT-47086 TPSA - LAB USE ONLY 09:42:46 REGULATORY AFFAIRS MANAGER CPT-83335 Venipuncture Draw Fee 09:42:46 REGULATORY AFFAIRS MANAGER CPT-61111 Port a cath flush 13:33:18 REGULATORY AFFAIRS MANAGER CPT-41500 First Vx - Ix admin for Medicare patients 10:42:57 REGULATORY AFFAIRS MANAGER CPT-43881 Fluzone Preservative Free Intramuscular Suspension 10:42 :57 REGULATORY AFFAIRS MANAGER CPT-G0438 Initial Annual Wellness Exam 10:13:55 REGULATORY AFFAIRS MANAGER CPT-000 Give Appropriate Flu Vaccine 10:44:04 CDT CPT-000 Give Pneumovax 10:44:03 CDT CPT-54846 Port a cath flush 17:04:43 CDT CPT-55778 Prevnar 13 11:19:17 CDT CPT-76008 Fluzone Quadrivalent preservative free (>=3yrs.) 11:19: 17 CDT CPT-43594 Immunization Each Additional Inj 11:19:17 CDT CPT-38720 Immunization Single Admin 11:19:17 CDT CPT-29576 Port a cath flush 13:28:22 CDT CPT-TCMM Transitional Care Mgmt-Moderate 13:40:15 CDT CPT-G0008 Administration of Influenza Virus Vaccine 13:59:20 CDT CPT-59721 Fluzone High-Dose Intramuscular Suspension 13:59:20 CDT CPT-72888 Venipuncture Draw Fee 09:56:19 CDT CPT-OV Office Visit 15:46:10 CDT
--- OUTSIDE RECORDS SUMMARY | 2017-08-25 22:36 | XMS REPORT | Continuity of Care Document ---
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 [facility] unknown [id number] 04/14/2016 17:54:00 04/14/2016 20:00:00 DIS Emergency KARTHIKEYAN BECKER [facility] chest pain [id number] 06/12/2016 14:40:24 Document Registration [id number] 05/13/2016 12:21:44 Document Registration [id number] 02/23/2017 14:10:11 Document Registration [id number] 02/23/2017 14:05:26 Document Registration [id number] 05/06/2017 14:27:00 05/06/2017 14:27:00 DIS Outpatient FREDDIE SCHAFER [id number] 08/01/2017 09:59:35 ACT Document Registration
[2017-08-25 23:28] VITALS: BP_SYST 128; BP_SYST 138; BP_SYST 139; BP_DIAS 76; BP_DIAS 81; BP_DIAS 83
[2017-08-25 23:44] VITALS: BP 138/81
[2017-09-21] MEDS ORDERED: LISI10TA2 PO (11:25)
[2017-09-21] MEDS ORDERED: MEGE20TA PO (12:41)
== END 2017-08-25 23:44 | disposition home or self-care (01) ==
LOC: EDUNIT# 19:09 → ER 19:10
DX: C90.02 Multiple myeloma in relapse (principal); D61.818 Other pancytopenia; E11.9 Type 2 diabetes mellitus without complications; E86.0 Dehydration; N28.9 Disorder of kidney and ureter, unspecified; R74.8 Abnormal levels of other serum enzymes; I25.10 Atherosclerotic heart disease of native coronary artery without angina pectoris; I25.2 Old myocardial infarction; E78.00 Pure hypercholesterolemia, unspecified; I10 Essential (primary) hypertension; Z87.891 Personal history of nicotine dependence; Z95.5 Presence of coronary angioplasty implant and graft; Z87.828 Personal history of other (healed) physical injury and trauma; Z87.19 Personal history of other diseases of the digestive system; Z87.81 Personal history of (healed) traumatic fracture; Z88.1 Allergy status to other antibiotic agents; Z88.5 Allergy status to narcotic agent
CPT/HCPCS: 36415; 71045; 80053; 81000; 82550; 82553; 83605; 83735; 83880; 84484; 85007; 85027; 85610; 85730; 87040; 93005; 93041; 96360; 96361

== ENCOUNTER 2017-09-09 02:25 | Observation (INO) | payer MEDICARE ==
[~2017-09-09] VITALS: Ht 165.1 cm; Wt 73.0 kg
[2017-09-09] MEDS ORDERED: LACTATED RINGERS 1,500 ML IV ONE (02:45)
[2017-09-09 02:49] LABS: BASOPHILS % (AUTO) 0 % (0-10); EOSINOPHILS % (AUTO) 0 % (0-10); HEMATOCRIT 41 % (40-54); HEMOGLOBIN 14.6 G/DL (13.3-17.7); LYMPHOCYTES # (AUTO) 0.6 X 10^3 (1.0-4.0); LYMPHOCYTES % (AUTO) 6 % (12-44); MEAN CORPUSCULAR HEMOGLOBIN 33 PG (25-34); MEAN CORPUSCULAR HGB CONC 36 G/DL (32-36); MEAN CORPUSCULAR VOLUME 92 FL (80-99); MEAN PLATELET VOLUME 9.7 FL (7.4-10.4); MONOCYTES # (AUTO) 0.5 X 10^3 (0.0-1.0); MONOCYTES % (AUTO) 5 % (0-12); NEUTROPHILS # (AUTO) 8.2 X 10^3 (1.8-7.8); NEUTROPHILS % (AUTO) 89 % (42-75); PLATELET COUNT 335 10^3/uL (130-400); RED BLOOD COUNT 4.46 10^6/uL (4.35-5.85); RED CELL DISTRIBUTION WIDTH 12.8 % (10.0-14.5); WHITE BLOOD COUNT 9.3 10^3/uL (4.3-11.0)
--- NOTE | 2017-09-09 02:49 | ED General ---
General Chief Complaint: Dizziness/Syncope Stated Complaint: LOW BLOOD PRESSURE 88/44,SOB,DIZZY Source of Information: Patient, Family Exam Limitations: No Limitations History of Present Illness Date Seen by Provider: Sep 09, 2017 Time Seen by Provider: 02:33 Initial Comments The patient presents to the ER by private conveyance with his significant other and a chief complaint that he has felt dizzy lightheaded like he's going to pass out and had a low blood pressure. He called the cancer center nurse and they told her that it was normal to have low blood pressure with chemotherapy but tonight he checked it and it was 88/40 and this concerned him greatly so he came in. When walking to the door he about doubled over and passed out but did not fall or hit his head. He is brought the rest the way by wheelchair. He has a Port-A-Cath in place. He has had multiple myeloma for the last 12 years. He started this most recent course of chemotherapy 3 months ago and this is his third dose yesterday. He is followed by Dr. Au, oncology in [place], [place]. He recently moved to [place]. He is not having any chest pain but he is having increased shortness of breath. No cough, fevers, chills, dysuria, nausea, abdominal pain. He says he has intermittent loose stools and constipation. No joint swelling, skin rash or specific pains. His spouse relates that she found him tonight laying on the floor with the dog standing around him and he laid there probably about half an hour according the patient. He says he didn't want to lay on the floor just was too tired and weak to get up and that was the closest place to lay down. He did not fall, strike his head or pass out. He is not on blood thinners but he does take an aspirin a day. He has a history of heart attack and CAD. Allergies and Home Medications Allergies Coded Allergies: codeine (Unverified Allergy, Unknown, 08/25/17) levofloxacin (Unverified Allergy, Unknown, 08/25/17) niacin (Unverified Allergy, Unknown, 08/25/17) Uncoded Allergies: DARVOCET (Allergy, Unknown, 08/25/17) ERYTHROMYCIN (Allergy, Unknown, 08/25/17) Home Medications Cyproheptadine Hcl 4 Mg Tablet, 0.5 TAB HS, (Reported) Patient Home Medication List Home Medication List Reviewed: Yes Review of Systems Constitutional: No chills, No diaphoresis; dizziness; No fever; malaise, weakness EENTM: No ear discharge, No ear pain Respiratory: No cough, No short of breath Cardiovascular: No chest pain, No edema Gastrointestinal: No abdominal pain, No constipation, No diarrhea, No nausea Genitourinary: No discharge, No dysuria Musculoskeletal: No back pain, No joint pain Skin: No pruritus, No rash Psychiatric/Neurological: Denies Headache, Denies Numbness Past Erpmpuq-Ckpbvp-Scqgay Hx Patient Social History Alcohol Use: Denies Use Recreational Drug Use: No Drug of Choice: +IV OPIATE USE--QUIT 1983 Smoking Status: Former Smoker Type Used: Cigarettes Former Smoker, Quit: Mar 30, 1972 Recent Foreign Travel: No Contact w/Someone Who Travel: No Recent Hopitalizations: No Seasonal Allergies Seasonal Allergies: No Past Medical History Surgeries: Yes Abdominal, Cardiac, Coronary Stent, Orthopedic Respiratory: Yes (MULTIPLE EPISODES OF PNEUMONIA; RIGHT PNEUMOTHORAX FROM TRAUMA 1992) Pneumonia Cardiac: Yes (PA X 3--CARDIAC CATHS-STENT X 1) Coronary Artery Disease, Heart Attack, High Cholesterol, Hypertension Neurological: Yes (MULTIPLE MYELOMA) Genitourinary: No Gastrointestinal: Yes Abdominal Hernia, Gastroesophageal Reflux, Hepatitis Musculoskeletal: Yes Fractures Endocrine: Yes Diabetes, Insulin dep HEENT: Yes (WISDOM TEETH REMOVAL; WEARS GLASSES) Cancer: Yes (MULTIPLE MYELOMA--DIAGNOSED AROUND 2003, 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) Did You Recieve Any Treatments: Yes What Type of Treatment Did You: Chemotherapy Psychosocial: No Integumentary: No Blood Disorders: Yes (PANCYTOPENIA ON CHEMO) Adverse Reaction/Blood Tranf: No Physical Exam-Suspected Sepsis Physical Exam Vital Signs Vital Signs - First Documented 09/09/17 02:43 Temp 97.2 Pulse 80 Resp 18 B/P (MAP) 96/68 (77) Pulse Ox 99 Capillary Refill : General Appearance: WD/WN, Mild Distress Eyes: Bilateral Eye Normal Inspection, Bilateral Eye PERRL, Bilateral Eye EOMI HEENT: PERRL/EOMI, TMs Normal, Normal ENT Inspection, Pharynx Normal; No Moist Mucous Membranes Neck: Full Range of Motion, Non Tender, Supple Respiratory: Chest Non Tender, Lungs Clear, Normal Breath Sounds, No Accessory Muscle Use, No Respiratory Distress Cardiovascular: Regular Rate, Rhythm, No Edema, Normal Peripheral Pulses Gastrointestinal: Normal Bowel Sounds, Non Tender, Soft Extremity: Normal Capillary Refill, Normal Inspection Neurologic/Psychiatric: Alert, Oriented x3, No Motor/Sensory Deficits, Normal Mood/Affect Skin: normal color, warm/dry Lymphatic: No Adenopathy Focused Exam Lactate Level 09/09/17 02:50: Lactic Acid Level 3.54*H Lactic Acid Level Laboratory Tests Test 09/09/17 02:50 Lactic Acid Level 3.54 MMOL/L (0.50-2.00) *H Progress/Results/Core Measures Suspected Sepsis SIRS Temperature: Pulse: Respiratory Rate: Laboratory Tests 09/09/17 02:40: White Blood Count 9.3 Blood Pressure / Mean: 09/09/17 02:50: Lactic Acid Level 3.54*H Laboratory Tests 09/09/17 02:40: Creatinine 2.01H, INR Comment 1.1, Platelet Count 335, Total Bilirubin 0.4 Results/Orders Lab Results Laboratory Tests Test 09/09/17 02:40 09/09/17 02:50 09/09/17 03:17 Range/Units White Blood Count 9.3 4.3-11.0 10^3/uL Red Blood Count 4.46 4.35-5.85 10^6/uL Hemoglobin 14.6 13.3-17.7 G/DL Hematocrit 41 40-54 % Mean Corpuscular Volume 92 80-99 FL Mean Corpuscular Hemoglobin 33 25-34 PG Mean Corpuscular Hemoglobin Concent 36 32-36 G/DL Red Cell Distribution Width 12.8 10.0-14.5 % Platelet Count 335 130-400 10^3/uL Mean Platelet Volume 9.7 7.4-10.4 FL Neutrophils (%) (Auto) 89 H 42-75 % Lymphocytes (%) (Auto) 6 L 12-44 % Monocytes (%) (Auto) 5 0-12 % Eosinophils (%) (Auto) 0 0-10 % Basophils (%) (Auto) 0 0-10 % Neutrophils # (Auto) 8.2 H 1.8-7.8 X 10^3 Lymphocytes # (Auto) 0.6 L 1.0-4.0 X 10^3 Monocytes # (Auto) 0.5 0.0-1.0 X 10^3 Eosinophils # (Auto) 0.0 0.0-0.3 10^3/uL Basophils # (Auto) 0.0 0.0-0.1 10^3/uL Neutrophils % (Manual) 89 % Lymphocytes % (Manual) 6 % Monocytes % (Manual) 4 % Eosinophils % (Manual) 0 % Basophils % (Manual) 0 % Band Neutrophils 1 % Poikilocytosis SLIGHT Prothrombin Time 14.1 12.2-14.7 SEC INR Comment 1.1 0.8-1.4 Activated Partial Thromboplast Time 44 H 24-35 SEC Sodium Level 135 135-145 MMOL/L Potassium Level 4.2 3.6-5.0 MMOL/L Chloride Level 104 98-107 MMOL/L Carbon Dioxide Level 13 L 21-32 MMOL/L Anion Gap 18 H 5-14 MMOL/L Blood Urea Nitrogen 31 H 7-18 MG/DL Creatinine 2.01 H 0.60-1.30 MG/DL Estimat Glomerular Filtration Rate 40 BUN/Creatinine Ratio 15 Glucose Level 126 H 70-105 MG/DL Calcium Level 9.8 8.5-10.1 MG/DL Total Bilirubin 0.4 0.1-1.0 MG/DL Aspartate Amino Transf (AST/SGOT) 29 5-34 U/L Alanine Aminotransferase (ALT/SGPT) 51 0-55 U/L Alkaline Phosphatase 82 40-136 U/L Troponin I < 0.30 <0.30 NG/ML B-Type Natriuretic Peptide 17.1 <100.0 PG/ML Total Protein 6.9 6.4-8.2 GM/DL Albumin 4.1 3.2-4.5 GM/DL Lactic Acid Level 3.54 *H 0.50-2.00 MMOL/L Urine Color YELLOW Urine Clarity CLEAR Urine pH 5 5-9 Urine Specific [place] 1.025 H 1.016-1.022 Urine Protein 1+ H NEGATIVE Urine Glucose (UA) NEGATIVE NEGATIVE Urine Ketones 1+ H NEGATIVE Urine Nitrite NEGATIVE NEGATIVE Urine Bilirubin NEGATIVE NEGATIVE Urine Urobilinogen NORMAL NORMAL MG/DL Urine Leukocyte Esterase NEGATIVE NEGATIVE Urine RBC (Auto) NEGATIVE NEGATIVE Urine RBC NONE /HPF Urine WBC NONE /HPF Urine Squamous Epithelial Cells 0-2 /HPF Urine Crystals PRESENT H /LPF Urine Calcium Oxalate Crystals FEW H /LPF Urine Bacteria TRACE /HPF Urine Casts PRESENT /LPF Urine Hyaline Casts >50 H /LPF Urine Mucus MODERATE H /LPF Urine Culture Indicated NO My Orders Orders - TAN MCKEON Cbc With Automated Diff (09/09/17 02:38) Comprehensive Metabolic Panel (09/09/17 02:38) Lactic Acid Analyzer (09/09/17 02:38) Blood Culture (09/09/17 02:38) Sputum Culture (09/09/17 02:38) Ua Culture If Indicated (09/09/17 02:38) Protime With Inr (09/09/17 02:38) Partial Thromboplastin Time (09/09/17 02:38) O2 (09/09/17 02:38) Saline Lock/Iv-Start (09/09/17 02:38) Saline Lock/Iv-Start (09/09/17 02:38) Ekg Tracing (09/09/17 02:38) Troponin I (09/09/17 02:38) Vital Signs Adult Sepsis Patie Q1H (09/09/17 02:38) Remove Rings In Anticipation O (09/09/17 02:38) Saline Lock/Iv-Start (09/09/17 02:38) Lactated Ringers (Lr 1000 Ml Iv Solution (09/09/17 02:45) Chest Pa/Lat (2 View) (09/09/17 02:38) Manual Differential (09/09/17 02:40) BNP (09/09/17 02:55) Orthostatic Vital Signs (Adult (09/09/17 02:55) Medications Given in ED Current Medications Medications Dose Ordered Sig/Carmel Route Start Time Stop Time Status Last Admin Dose Admin Lactated Ringer's 1,500 ml @ 1,500 mls/hr ONCE ONCE IV 09/09/17 02:45 09/09/17 03:44 DC 09/09/17 02:55 1,500 MLS/HR Vital Signs/I&O 09/09/17 09/09/17 02:43 03:22 Temp 97.2 Pulse 80 74 72 87 Resp 18 B/P (MAP) 96/68 (77) 101/66 (78) 106/59 (75) 86/61 (69) Pulse Ox 99 Capillary Refill : Progress Note #1: Time: 02:56 Progress Note First on the differential would be infection compounded by his chemotherapy. Regarding get urine and a sepsis workup. Other possibility could include cardiac considering he's endorsing orthopnea. Get a BNP, chest x-ray in addition to the EKG and troponin already ordered. We'll obtain orthostatic vital signs and then give him a 20 mL/kg bolus which is about [address] Stuart performed stress echocardiogram April 2016. Severe hypertensive response to exercise which returned to baseline during recovery. Minimal nondiagnostic EKG changes with exercise. Normal echocardiographic images with no ischemic change at rest and with peak stress test. Echocardiogram from April [address] Stuart shows: Normal left ventricular size and systolic function and EF of 60%. Estimated PA P of 10 mmHg. Mild mitral and tricuspid regurgitation. Progress Note #2: Time: 04:00 Progress Note Patient has an elevated lactate with other labs and imaging unremarkable. Could be due to dehydration since she's not been eating and drinking as much since starting the chemotherapy. Would like to hold on to him on observation status and put more fluids in and observe him on the medicine service. Orthostatics were positive for a 20 mmHg drop in systolic pressure from sitting to standing. ECG Initial ECG Impression Date: Sep 09, 2017 Initial ECG Impression Time: 02:28 Initial ECG Rate: 81 Initial ECG Rhythm: Normal Sinus Initial ECG Intervals: Normal Initial ECG Impression: Normal Initial ECG Comparisson: Unchanged Comment Respiratory artifact. No ST elevation or depression. Diagnostic Imaging Diagonstic Imaging: Xray Plain Films/CT/US/NM/MRI: chest (2v) Comments No acute cardiopulmonary process. Reviewed: Reviewed by Me Departure Communication (Admissions) Time/Spoke to Admitting Phy: 04:08 Dr Rae: Discussed case lab EKG imaging findings and plan to do fluids and observation. Impression Primary Impression: Near syncope Additional Impressions: Orthostatic hypotension Lactic acidosis Dehydration History of multiple myeloma History of chemotherapy Disposition: ADMITTED INPATIENT Condition: Stable Admissions Decision to Admit Reason: Admit from ER (General) Decision to Admit/Date: Sep 09, 2017 Time/Decision to Admit Time: 04:01 Departure-Patient Inst. Referrals: YOMI RAMESH MD (PCP/Family) Primary Care Physician TAN MCKEON Sep 09, 2017 02:49
[2017-09-09 03:00] LABS: INR 1.1 (0.8-1.4); PROTHROMBIN TIME PATIENT 14.1 SEC (12.2-14.7)
[2017-09-09 03:05] LABS: BAND NEUTROPHILS 1 %; BASOPHILS % (MANUAL) 0 %; EOSINOPHILS % (MANUAL) 0 %; LYMPHOCYTES % (MANUAL) 6 %; MONOCYTES % (MANUAL) 4 %; NEUTROPHILS % (MANUAL) 89 %
[2017-09-09 03:06] LABS: POIKILOCYTOSIS SLIGHT
[2017-09-09 03:08] LABS: ALANINE AMINOTRANSFERASE 51 U/L (0-55); ALBUMIN 4.1 GM/DL (3.2-4.5); ALKALINE PHOSPHATASE 82 U/L (40-136); BILIRUBIN,TOTAL 0.4 MG/DL (0.1-1.0); BUN/CREATININE RATIO 15; CALCIUM 9.8 MG/DL (8.5-10.1); CARBON DIOXIDE 13 MMOL/L (21-32); CHLORIDE 104 MMOL/L (98-107); CREATININE SERUM 2.01 MG/DL (0.60-1.30); GFR ESTIMATED 40; GLUCOSE 126 MG/DL (70-105); POTASSIUM 4.2 MMOL/L (3.6-5.0); SODIUM 135 MMOL/L (135-145); TOTAL PROTEIN 6.9 GM/DL (6.4-8.2)
[2017-09-09 03:22] VITALS: BP_SYST 101; BP_SYST 106; BP_SYST 86; BP_DIAS 59; BP_DIAS 61; BP_DIAS 66
[2017-09-09 03:24] LABS: BILIRUBIN,URINE NEGATIVE (NEGATIVE); CLARITY,URINE CLEAR; COLOR,URINE YELLOW; GLUCOSE, URINE (UA) NEGATIVE (NEGATIVE); KETONES,URINE 1+ (NEGATIVE); LEUKOCYTE ESTERASE ,URINE NEGATIVE (NEGATIVE); NITRITE,URINE NEGATIVE (NEGATIVE); PH,URINE 5 (5-9); PROTEIN,URINE 1+ (NEGATIVE); UROBILINOGEN,URINE NORMAL (NORMAL)
[2017-09-09 03:40] LABS: BACTERIA,URINE TRACE /HPF; CALCIUM OXALATE CRYSTALS,UR FEW /LPF; HYALINE CASTS, URINE >50 /LPF; SQUAMOUS EPITHELIAL CELL,UR 0-2 /HPF
[2017-09-09 05:25] VITALS: BP 143/73
[2017-09-09] MEDS ORDERED: 1/2 NS W/KCL 20 MEQ/L 1,000 ML IV ONE (05:43)
[2017-09-09] MEDS ORDERED: ONDANSETRON 4 MG/2 ML (SDV) Z0FRAN IV PRN (06:00)
[2017-09-09] MEDS ORDERED: HYDROcodone/APAP 7.5 MG/325 MG (LORTAB, LORCET PLUS) TABLET PO PRN ×2 (06:00→15:15)
[2017-09-09] MEDS: 1/2 NS W/KCL 20 MEQ/L 1,000 ML IV SCH ×4 (07:05→23:49)
[2017-09-09 08:00] VITALS: BP 155/70
--- NOTE | 2017-09-09 08:11 | Diagnostic Imaging Report ---
INDICATION: Dizziness and. The of hypotension over the past 2-3 days.. TECHNIQUE: Two view chest 3:27 AM CORRELATION STUDY: 08/25/2017 FINDINGS: Left-sided Blzixg-z-Tizv catheter unchanged. Heart size mediastinum and vasculature are stable and unremarkable. Lung lux overall are symmetrically well inflated and clear. No infiltrate. Visualized osseous structures are unremarkable. IMPRESSION: 1. Stable chest demonstrates no acute abnormality. Dictated by: Dictated on workstation # [id number]
[2017-09-09] MEDS: PANTOPRAZOLE 20 MG TABLET (PROTONIX) PO SCH (09:25)
[2017-09-09] MEDS ORDERED: inSUlin ASPART (NovoLOG) 1 UNIT/0.01 ML (CHARGE PER UNIT) SC SCH ×3 (09:30→11:00)
[2017-09-09 12:00] VITALS: BP 166/83
[2017-09-09] MEDS ORDERED: ASPI-983 PO (12:39)
[2017-09-09] MEDS ORDERED: CALC-225 PO (12:39)
[2017-09-09] MEDS ORDERED: ACYC400T PO (12:39)
[2017-09-09] MEDS ORDERED: ONDA8TAB6 PO (12:39)
[2017-09-09] MEDS ORDERED: INSU100I14 SQ (12:39)
[2017-09-09] MEDS ORDERED: HYDR-3816 PO (12:39)
[2017-09-09] MEDS ORDERED: INSU100V6 SQ (12:39)
[2017-09-09] MEDS ORDERED: OMEP20CA12 PO (12:39)
[2017-09-09] MEDS ORDERED: GABA-488 PO (12:39)
--- NOTE | 2017-09-09 13:30 | History & Physical-Hospitalist ---
History of Present Illness HPI/Chief Complaint Pt is a 67yoCM with a PMH of multiple myeloma, HTN, IDDMII, CKD who presented to the ER due to weakness. He states his symptoms started when he received chemo on Thursday and he had a similar experience after his last chemo cycle. He felt very weak and was unable to stand. His found him on the floor near the bed and had to call EMS for help. He states he felt very dizzy and weak. He denies any syncope or LOC. He was previously very active walking 6 miles a day until he started on chemotherapy 3 months ago. He has had a poor appetite but no vomiting. He was able to eat half of his breakfast though. Source: patient Date Seen 09/09/17 Time Seen by Provider: 09:37 Attending Physician Clayton Rae MD PCP Prosper Arenas MD Referring Physician Date of Admission Sep 09, 2017 at 4:15 am Home Medications & Allergies Home Medications Reviewed patient Home Medication Reconciliation performed by pharmacy medication reconciliations copier repair technician and/or nursing. Patients Allergies have been reviewed. Allergies Allergies Coded Allergies codeine (Unverified Allergy, Unknown, 08/25/17) levofloxacin (Unverified Allergy, Unknown, 08/25/17) niacin (Unverified Allergy, Unknown, 08/25/17) Uncoded Allergies DARVOCET ( Allergy, Unknown, 08/25/17) ERYTHROMYCIN ( Allergy, Unknown, 08/25/17) Past Vmjkejm-Qcbvqg-Xiglru Hx Past Med/Social Hx: Reviewed Nursing Past Med/Soc Hx Patient Social History Marrital Status: Alcohol Use: Regular Use (4-5 shots per day) Number of Drinks Today: 0 Alcohol Beverage of Choice: [place] Recreational Drug Use: No (QUIT IN 1983) Drug of Choice: OPIATES Smoking Status: Former Smoker Former Smoker, Quit: Jan 08, 1973 Type Used: Cigarettes Physical Abuse Screen: No Sexual Abuse: No Recent Foreign Travel: No Contact w/other who traveled: No Recent Hopitalizations: No Recent Infectious Disease Expo: No Immunizations Up To Date Date of Pneumonia Vaccine: Jan 09, 2015 Seasonal Allergies Seasonal Allergies: No Past Medical History Surgeries: Abdominal, Cardiac, Coronary Stent, Orthopedic Currently Using CPAP: No Currently Using BIPAP: No Cardiac: Coronary Artery Disease, Heart Attack, High Cholesterol, Hypertension Sexually Transmitted Disease: No HIV/AIDS: No Gastrointestinal: Abdominal Hernia, Gastroesophageal Reflux, Hepatitis Musculoskeletal: Fractures Endocrine: Diabetes, Insulin dep Are Your Blood Sugars Over 250: No HEENT: Cataract Loss of Vision: Denies Hearing Impairment: Denies Did You Recieve Any Treatments: Yes What Type of Treatment Did You: Chemotherapy History of Blood Disorders: Yes (PANCYTOPENIA ON CHEMO) Adverse Reaction to Blood Negron: No Family History Reviewed Nursing Family Hx Cancer (colon cancer in mom, uncles, and aunt) Review of Systems Constitutional: No chills; dizziness; No fever; weakness EENTM: No blurred vision, No double vision, No nose congestion, No throat pain Respiratory: No cough, No dyspnea on exertion; short of breath (chronic) Cardiovascular: No chest pain, No edema, No palpitations Gastrointestinal: No abdominal pain, No constipation, No diarrhea; loss of appetite; No nausea, No vomiting Genitourinary: No dysuria, No frequency Musculoskeletal: No joint pain, No muscle pain Skin: No lesions, No rash Psychiatric/Neurological: Denies Headache, Denies Numbness, Denies Tingling Physical Exam Physical Exam Vital Signs Vital Signs - First Documented 09/09/17 09/09/17 02:43 05:11 Temp 97.2 Pulse 80 Resp 18 B/P (MAP) 96/68 (77) Pulse Ox 99 O2 Delivery Room Air Capillary Refill : Less Than 3 SecondsLess Than 3 Seconds General Appearance: No Apparent Distress, WD/WN HEENT: PERRL/EOMI, Moist Mucous Membranes Neck: Non Tender, Supple Respiratory: Lungs Clear, No Respiratory Distress Cardiovascular: Regular Rate, Rhythm, No Murmur Gastrointestinal: Normal Bowel Sounds, Non Tender, Soft Extremity: Normal Capillary Refill, No Calf Tenderness Neurologic/Psychiatric: Alert, Oriented x3, Normal Mood/Affect Skin: Normal Color, Warm/Dry Results Results/Procedures Labs Laboratory Tests 09/09/17 02:40 Patient resulted labs reviewed. Imaging: Reviewed Imaging Report Assessment/Plan Admission Diagnosis ROBSON Admission Status: Observation Diagnosis/Problems Diagnosis/Problems (1) ROBSON (acute kidney injury) Status: Acute Assessment & Plan: Match Maker up to 2.01 from 1.47 2 weeks ago Continue IVF Lactic acidosis improving ROBSON and Lactic acid likely cause of anion gap (2) Insulin dependent diabetes mellitus Assessment & Plan: SSI A added Will resume home basal insulin (3) CKD (chronic kidney disease) Status: Chronic Assessment & Plan: Baseline near 1.5 Hold Lisinopril with ROBSON but will resume on DC Qualifiers: Chronic kidney disease stage: stage 3 (moderate) Qualified Codes: N18.3 - Chronic kidney disease, stage 3 (moderate) (4) History of multiple myeloma Status: Acute Assessment & Plan: Currently on chemo No evidence of neutropenia (5) Orthostatic hypotension Status: Acute Assessment & Plan: Will have PT walk with patient given worsening weakness to make sure able to ambulate safely Clinical Quality Measures DVT/VTE Risk/Contraindication: Risk Factor Score Per Nursin RFS Level Per Nursing on Admit: 4+=Very High PHIL DEL CID MD Sep 09, 2017 1:29 pm
[2017-09-09] MEDS ORDERED: NON-FORMULARY MEDICATION 1 EA EA (Hydrocodone/Acetaminophen (Hydrocodone-Acetamin 7.5-325) PO PRN (13:45)
[2017-09-09] MEDS ORDERED: NON-FORMULARY MEDICATION 1 EA EA (Ondansetron HCl (Zofran) 8 MG) PO PRN (13:45)
--- NOTE | 2017-09-09 14:58 | Physical Therapy Evaluation ---
PT Evaluation-General Medical Diagnosis Admission Date Sep 09, 2017 at 04:15 Medical Diagnosis: orthostatic hypotension, dehydration Onset Date: Sep 09, 2017 Therapy Diagnosis Therapy Diagnosis: no significant impairments in mobility, strength, or balance Height/Weight Height (Feet): 5 Height (Inches): 5.00 Weight (Pounds): 161 Weight (Ounces): 0.0 Precautions Precautions/Isolations: Standard Precautions Weight Bear Status Right Lower Extremity: Right Weight Bearing/Tolerated Left Lower Extremity: Left Weight Bearing/Tolerated Referral Physician: Nohemy Ramey MD Reason for Referral: Evaluation/Treatment Medical History Pertinent Medical History: CAD, GERD, HTN, [place] Additional Medical History multiple myeloma, CKD, high cholesterol, abdominal hernia, hepatitis, cataracts , surg (abdominal, cardiac, coronary stent, orthopedic) Current History Patient went to the ER with weakness, fell on the floor, states symptoms started when he got chemo on Thursday. Reviewed History: Yes Social History Home: Single Level Current Living Status: Spouse Entry Into Home: Stairs Without Railing PT Steps Into Home: 2 Prior/Core FIM Prior Level of Function Functional Challenge Measure 0=Not Assessed/NA 4=Minimal Assistance 1=Total Assistance 5=Supervision or Setup 2=Maximal Assistance 6=Modified Challenge 3=Moderate Assistance 7=Complete Challenge Bed Mobility: 7 Transfers (B,C,W/C) (FIM): 7 Gait: 7 PT Evaluation-Current Subjective Patient in bed pre tx, agrees to PT. Patient states that he has been ambulating to the bathroom without any issues. When asked he states that he doesn't think he needs PT services. No complaints of pain. Pt/Family Goals none Objective Patient Orientation: Normal For Age Attachments: IV ROM/Strength ROM Lower Extremities WNL Strength Lower Extremities 5/5 gross bilateral lower extremities Neuromuscular (Tone, Coordination, Reflexes) NT Sensory Vision: Wears Glasses Hearing: Functional Sensation Right Lower Extremit: Intact Sensation Left Lower Extremity: Intact Sensation Lower Extremities Patient has no complaint of numbness or tingling in his legs. Transfers Functional Challenge Measure 0=Not Assessed/NA 4=Minimal Assistance 1=Total Assistance 5=Supervision or Setup 2=Maximal Assistance 6=Modified Challenge 3=Moderate Assistance 7=Complete Challenge Transfers (B, C, W/C) (FIM): 7 Scootin Rollin Supine to/from Sit: 7 Sit to/from Stand: 7 bed t/f WC(FIM only if WC use): 7 Gait Mode of Locomotion: Walk Anticipated Mode of Locomotion: Walk Gait (FIM): 7 Distance: 600' Gait Assistive Device: None Comments/Gait Description Patient pushed the IV pole. No unsteadiness or LOB, brisk pace and no SOB. Balance Sitting Static: Normal Sitting Dynamic: Normal Standing Static: Normal Standing Dynamic: Normal Assessment/Needs Patient has no obvious impairments in mobility, strength, balance. He ambulates independently. Patient will be discharged from PT at this time. Rehab Potential: Good PT Plan Treatment/Plan Treatment Plan: Discontinue PT Treatment Plan: Other Treatment Duration: Sep 09, 2017 Frequency: Estimated Hrs Per Day: Other Patient and/or Family Agrees t: Yes Safety Risks/Education Patient Education: Gait Training, Transfer Techniques, Correct Positioning, Safety Issues Teaching Recipient: Patient Teaching Methods: Demonstration, Discussion Response to Teaching: Verbalize Understanding, Return Demonstration Discharge Recommendations Plan DC Therapy D/C Recommendations: Home w/ Family Support Time/GCodes Time In: 1440 Time Out: 1455 Total Billed Treatment Time: 15 Total Billed Treatment 1 visit [place] G Codes Necessary: Yes PT/OT Therapy GCodes Therapy Functional Limitation: Physical Therapy Test(s)/Tool used to determine: Level of Assistance Scale Functional Limitation-Current Charge Code: MOBCUR Modifier: CH Functional Limitation-Goal Charge Code: MOBGOAL Modifier: CH Functional Limitation-D/C Charge Codes: MOBDC Modifier: CH RUDY NIETO PT Sep 09, 2017 14:58
[2017-09-09] MEDS ORDERED: ONDANSETRON 4 MG (ZOFRAN) ORAL DISSOLVE TAB PO PRN (15:15)
[2017-09-09 16:05] VITALS: BP 171/83
[2017-09-09] MEDS: inSUlin ASPART (NovoLOG) 1 UNIT/0.01 ML (CHARGE PER UNIT) SC SCH ×2 (16:30→21:07)
[2017-09-09 19:27] VITALS: BP 159/69
[2017-09-09] MEDS: GABAPENTIN 300 MG (NEURONTIN) CAP PO SCH (20:46)
[2017-09-09] MEDS: ACYCLOVIR 400 MG TABLET (ZOVIRAX) PO SCH (20:46)
[2017-09-09] MEDS ORDERED: NON-FORMULARY MEDICATION 1 EA EA (Acyclovir 400 MG) PO SCH (21:00)
[2017-09-09] MEDS ORDERED: INSULIN GLARGINE HUM REC ANLOG 35 UNIT SQ SCH (21:00)
[2017-09-09] MEDS ORDERED: inSUlin DETERMIR 1 UNIT/0.01 ML (LEVEMIR) CHARGE PER UNIT SQ SCH (21:00)
[2017-09-10 00:05] VITALS: BP 155/79
[2017-09-10 04:01] VITALS: BP 133/75
[2017-09-10] MEDS: 1/2 NS W/KCL 20 MEQ/L 1,000 ML IV SCH (05:51)
[2017-09-10] MEDS: inSUlin ASPART (NovoLOG) 1 UNIT/0.01 ML (CHARGE PER UNIT) SC SCH (06:00)
[2017-09-10 06:22] LABS: BUN/CREATININE RATIO 17; CALCIUM 8.1 MG/DL (8.5-10.1); CARBON DIOXIDE 17 MMOL/L (21-32); CHLORIDE 109 MMOL/L (98-107); CREATININE SERUM 1.36 MG/DL (0.60-1.30); GFR ESTIMATED > 60; GLUCOSE 68 MG/DL (70-105); SODIUM 135 MMOL/L (135-145)
[2017-09-10] MEDS: PANTOPRAZOLE 20 MG TABLET (PROTONIX) PO SCH (06:32)
--- NOTE | 2017-09-10 07:59 | Discharge Summary-Hospitalist ---
Diagnosis/Chief Complaint Date of Admission Sep 09, 2017 at 04:15 Date of Discharge Admission Diagnosis ROBSON Discharge Diagnosis (1) ROBSON (acute kidney injury) Status: Acute Assessment & Plan: Director Vaccine up to 2.01 from 1.47 2 weeks ago Continue IVF Lactic acidosis improving ROBSON and Lactic acid likely cause of anion gap (2) Insulin dependent diabetes mellitus Assessment & Plan: SSI A added Will resume home basal insulin (3) CKD (chronic kidney disease) Status: Chronic Assessment & Plan: Baseline near 1.5 Hold Lisinopril with ROBSON but will resume on DC (4) History of multiple myeloma Status: Acute Assessment & Plan: Currently on chemo No evidence of neutropenia (5) Orthostatic hypotension Status: Acute Assessment & Plan: Will have PT walk with patient given worsening weakness to make sure able to ambulate safely Discharge Summary Discharge Physical Exam Allergies: Coded Allergies: codeine (Unverified Allergy, Unknown, 08/25/17) levofloxacin (Unverified Allergy, Unknown, 08/25/17) niacin (Unverified Allergy, Unknown, 08/25/17) Uncoded Allergies: DARVOCET (Allergy, Unknown, 08/25/17) ERYTHROMYCIN (Allergy, Unknown, 08/25/17) Vitals & I&Os Vital Signs Date Time Temp Pulse Resp B/P (MAP) Pulse Ox O2 Delivery O2 Flow Rate FiO2 09/10/17 09:22 Room Air 09/10/17 08:00 97.4 65 18 147/76 (99) 100 General Appearance: Alert, Oriented X3 Respiratory: Clear to Auscultation Cardiovascular: Regular Rate Hospital Course Pt presented to the ER with CC of weakness and was found to be dehydrated with a ROBSON following his chemo session on 09/08. He was admitted for IVF. He was assessed by PT as well do to his weakness and deemed safe for DC back home. His renal function improved and he was discharged home at his request. He is to follow up with his PCP and oncologist. 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 Pending Labs Imaging: Reviewed Imaging Report Discussion & Recommendations Discharge Planning: <30 minutes discharge planning Discharge Home Medications: Active Scripts Active Reported Acyclovir 400 Mg Tablet 400 Mg PO BID Zofran (Ondansetron HCl) 8 Mg Tablet 8 Mg PO Q8H PRN Gabapentin 300 Mg Capsule 300 Mg PO TID Calcium 500 + Vit D 200 Tablet (Calcium Carbonate/Vitamin D3) 1 Each Tablet 1 Tab PO BID Hydrocodone-Acetamin 7.5-325 (Hydrocodone/Acetaminophen) 1 Each Tablet 1 Tab PO TID PRN Omeprazole 20 Mg Capsule. 20 Mg PO DAILY Aspirin EC (Aspirin) 81 Mg Tablet.dr 81 Mg PO DAILY Lantus (Insulin Glargine,Hum.rec.anlog) 100 Unit/1 Ml Vial 35 Unit SQ HS Novolog Flexpen (Insulin Aspart) 300 Units/3 Ml Solution 6-7 Units SQ AC Instructions to patient/family Please see electronic discharge instructions given to patient. Clinical Quality Measures DVT/VTE Risk/Contraindication: Risk Factor Score Per Nursin RFS Level Per Nursing on Admit: 4+=Very High Copy Copies To 1: Dr Arenas Problem Qualifiers (1) CKD (chronic kidney disease): Chronic kidney disease stage: stage 3 (moderate) Qualified Codes: N18.3 - Chronic kidney disease, stage 3 (moderate) PHIL DEL CID MD Sep 10, 2017 07:59
[2017-09-10 08:00] VITALS: BP 147/76
--- NOTE | 2017-09-10 08:01 | Discharge Inst-Simple/Standard ---
Discharge Inst-Standard Patient Instructions/Follow Up Plan of Care/Instructions/FU: Please continue to take your medications as written. Please follow up with your PCP in 1-2 weeks and with your oncologist as scheduled. Activity as Tolerated: Yes Discharge Diet: No Restrictions Return to The Hospital For: Chest pain, shortness of breath, if you feel you are getting worse. PHIL DEL CID MD Sep 10, 2017 08:01
[2017-09-10] MEDS: GABAPENTIN 300 MG (NEURONTIN) CAP PO SCH (08:38)
[2017-09-10] MEDS: ACYCLOVIR 400 MG TABLET (ZOVIRAX) PO SCH (08:38)
[2017-09-10] MEDS ORDERED: OMEPRAZOLE 20 MG (PriLOSEC) CAP NON-FORMULARY PO SCH (09:00)
[2017-09-10] MEDS ORDERED: ASPIRIN E.C. 81 MG (ECOTRIN) TAB PO SCH (09:00)
[2017-09-21] MEDS ORDERED: LISI10TA2 PO (11:25)
[2017-09-21] MEDS ORDERED: MEGE20TA PO (12:41)
== END 2017-09-10 08:01 | disposition home or self-care (01) ==
LOC: EDUNIT# 02:31 → ER 02:35 → UNDOADMOB 04:15 → 4TH 04:15 → UNDODISOB 09-10 09:55
PROVIDERS: ADMIT Internal Medicine; ATTEND Internal Medicine
DX: N17.9 Acute kidney failure, unspecified (principal); E11.9 Type 2 diabetes mellitus without complications; I12.9 Hypertensive chronic kidney disease with stage 1 through stage 4 chronic kidney disease, or unspecified chronic kidney disease; N18.3 Chronic kidney disease, stage 3 (moderate); C90.00 Multiple myeloma not having achieved remission; I95.9 Hypotension, unspecified; E87.2 Acidosis; I25.10 Atherosclerotic heart disease of native coronary artery without angina pectoris; E78.00 Pure hypercholesterolemia, unspecified; I25.2 Old myocardial infarction; Z79.4 Long term (current) use of insulin; Z92.3 Personal history of irradiation; Z87.891 Personal history of nicotine dependence
CPT/HCPCS: 36415; 71046; 80048; 80053; 81000; 82962; 83605; 83880; 84484; 85007; 85027; 85610; 85730; 87040; 93005; 96360; 96361; G0378

== ENCOUNTER 2017-09-13 04:23 | Day surgery (SDC) | payer MEDICARE ==
[2017-09-13] VITALS (18 sets, daily range): BP systolic 116–167; BP diastolic 35–99
[~2017-09-13] VITALS: Ht 165.1 cm; Wt 73.9 kg
[~2017-09-13 04:23] MED LIST changes: +ACYC400T PO; +ASPI-983 PO; +CALC-225 PO; +GABA-488 PO; +HYDR-3816 PO; +INSU100I14 SQ; +INSU100V6 SQ; +OMEP20CA12 PO; +ONDA8TAB6 PO
[2017-09-13] MEDS ORDERED: NITROGLYCERIN 0.4 MG SL TABS BTL 25'S SL PRN (04:30)
[2017-09-13] MEDS ORDERED: ASPIRIN 81 MG CHEW (CHILDREN'S ASA) PO ONE (04:30)
--- NOTE | 2017-09-13 04:36 | ED Chest Pain ---
General Chief Complaint: Chest Pain Stated Complaint: CP Source: patient, other Exam Limitations: no limitations History of Present Illness Date Seen by Provider: Sep 13, 2017 Time Seen by Provider: 04:25 Initial Comments The patient presents to the ER by private conveyance with chief complaint of chest pain/pressure that starts in the middle of his chest and wraps around the base of his ribs towards his back. It radiates to both sides but not to his shoulders, neck or jaw. He says the pain started about 5 or 10 minutes prior to arrival and he was awake his will she was getting ready to go to work. He has a significant history of multiple myeloma for which she is on chemotherapy and has a central port. He's having a little worse shortness of breath the past day as well as some sweats all day yesterday. He's had no fever or chills. He is having no nausea. He does have a history of stents and heart attacks in the past. He was recently discharged from an observation stay secondary to acute kidney injury and dehydration after his third round of chemotherapy. He was doing much better after evaluation by physical therapy and some IV fluids and allowed to go home. Allergies and Home Medications Allergies Coded Allergies: codeine (Unverified Allergy, Unknown, 08/25/17) levofloxacin (Unverified Allergy, Unknown, 08/25/17) niacin (Unverified Allergy, Unknown, 08/25/17) Uncoded Allergies: DARVOCET (Allergy, Unknown, 08/25/17) ERYTHROMYCIN (Allergy, Unknown, 08/25/17) Home Medications Acyclovir 400 Mg Tablet, 400 MG PO BID, (Reported) Aspirin 81 Mg Tablet.dr, 81 MG PO DAILY, (Reported) Calcium Carbonate/Vitamin D3 1 Each Tablet, 1 TAB PO BID, (Reported) Gabapentin 300 Mg Capsule, 300 MG PO TID, (Reported) Hydrocodone/Acetaminophen 1 Each Tablet, 1 TAB PO TID PRN for PAIN-MODERATE, ( Reported) Insulin Aspart 300 Units/3 Ml Solution, 6-7 UNITS SQ AC, (Reported) Insulin Glargine,Hum.rec.anlog 100 Unit/1 Ml Vial, 35 UNIT SQ HS, (Reported) Omeprazole 20 Mg Capsule.dr, 20 MG PO DAILY, (Reported) Ondansetron HCl 8 Mg Tablet, 8 MG PO Q8H PRN for NAUSEA/VOMITING-1ST LINE, ( Reported) Patient Home Medication List Home Medication List Reviewed: Yes Review of Systems Constitutional: No chills; diaphoresis; No fever, No malaise EENTM: No Blurred Vision, No Double Vision Respiratory: Denies Cough; Shortness of Air; Denies Wheezing Cardiovascular: See HPI, Chest Pain; Denies Edema, Denies Irregular Heart Rate , Denies Lightheadedness, Denies Palpitations, Denies Syncope Gastrointestinal: Denies Abdominal Pain, Denies Constipated, Denies Diarrhea, Denies Nausea Genitourinary: Denies Burning, Denies Discharge Musculoskeletal: No back pain, No joint pain, No joint swelling, No muscle pain Skin: No pruritus, No rash Psychiatric/Neurological: Denies Headache, Denies Numbness Hematologic/Lymphatic: Denies Easy Bleeding, Denies Easy Bruising Past Adzyphl-Fsprza-Ktjiqw Hx Patient Social History Alcohol Beverage of Choice: [place] Recreational Drug Use: No (past history, distant) Drug of Choice: OPIATES Smoking Status: Former Smoker Type Used: Cigarettes Former Smoker, Quit: Jan 08, 1973 Recent Hopitalizations: No Immunizations Up To Date Date of Pneumonia Vaccine: Jan 09, 2015 Seasonal Allergies Seasonal Allergies: No Past Medical History Surgeries: Yes Abdominal, Cardiac, Coronary Stent, Orthopedic Respiratory: Yes (MULTIPLE EPISODES OF PNEUMONIA; RIGHT PNEUMOTHORAX FROM TRAUMA 1992) Pneumonia Currently Using CPAP: No Currently Using BIPAP: No Cardiac: Yes (WA X 3--CARDIAC CATHS-STENT X 1) Coronary Artery Disease, Heart Attack, High Cholesterol, Hypertension Neurological: Yes (MULTIPLE MYELOMA) Sexually Transmitted Disease: No HIV/AIDS: No Genitourinary: No Gastrointestinal: Yes Abdominal Hernia, Gastroesophageal Reflux, Hepatitis Musculoskeletal: Yes Fractures Endocrine: Yes Diabetes, Insulin dep HEENT: Yes (WISDOM TEETH REMOVAL; WEARS GLASSES) Cataract Loss of Vision: Denies Hearing Impairment: Denies Cancer: Yes (MULTIPLE MYELOMA--DIAGNOSED AROUND 2003, 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) Did You Recieve Any Treatments: Yes What Type of Treatment Did You: Chemotherapy Psychosocial: No Integumentary: No Blood Disorders: Yes (PANCYTOPENIA ON CHEMO) Adverse Reaction/Blood Tranf: No Family Medical History Cancer Physical Exam Vital Signs Vital Signs - First Documented 09/13/17 04:28 Temp 98.0 Pulse 86 Resp 19 B/P (MAP) 108/76 (87) Pulse Ox 100 O2 Delivery Room Air Capillary Refill : Less Than 3 Seconds General Appearance: WD/WN, Mild Distress HEENT: PERRL/EOMI, Pharynx Normal Neck: Full Range of Motion, Normal Inspection, Non Tender, Supple Respiratory: Chest Non Tender, Lungs Clear, Normal Breath Sounds, No Accessory Muscle Use, No Respiratory Distress Cardiovascular: Regular Rate, Rhythm, No Edema, No JVD, No Murmur, Normal Peripheral Pulses Gastrointestinal: Normal Bowel Sounds, No Organomegaly, Soft, Tenderness ( right sided abdomen) Extremity: Normal Capillary Refill, Normal Inspection, Non Tender, No Calf Tenderness, No Pedal Edema Neurologic/Psychiatric: Alert, Oriented x3, Normal Mood/Affect Skin: Normal Color, Warm/Dry Progress/Results/Core Measures Results/Orders Lab Results Laboratory Tests Test 09/13/17 04:35 Range/Units White Blood Count 1.6 L 4.3-11.0 10^3/uL Red Blood Count 4.55 4.35-5.85 10^6/uL Hemoglobin 14.9 13.3-17.7 G/DL Hematocrit 41 40-54 % Mean Corpuscular Volume 90 80-99 FL Mean Corpuscular Hemoglobin 33 25-34 PG Mean Corpuscular Hemoglobin Concent 36 32-36 G/DL Red Cell Distribution Width 11.9 10.0-14.5 % Platelet Count 151 130-400 10^3/uL Mean Platelet Volume 9.7 7.4-10.4 FL Neutrophils (%) (Auto) 67 42-75 % Lymphocytes (%) (Auto) 8 L 12-44 % Monocytes (%) (Auto) 23 H 0-12 % Eosinophils (%) (Auto) 2 0-10 % Basophils (%) (Auto) 1 0-10 % Neutrophils # (Auto) 1.1 L 1.8-7.8 X 10^3 Lymphocytes # (Auto) 0.1 L 1.0-4.0 X 10^3 Monocytes # (Auto) 0.4 0.0-1.0 X 10^3 Eosinophils # (Auto) 0.0 0.0-0.3 10^3/uL Basophils # (Auto) 0.0 0.0-0.1 10^3/uL Neutrophils % (Manual) 74 % Lymphocytes % (Manual) 2 % Monocytes % (Manual) 18 % Eosinophils % (Manual) 2 % Band Neutrophils 4 % Blood Morphology Comment NORMAL Prothrombin Time 13.4 12.2-14.7 SEC INR Comment 1.0 0.8-1.4 Activated Partial Thromboplast Time 31 24-35 SEC D-Dimer 0.44 0.00-0.49 UG/ML Sodium Level 133 L 135-145 MMOL/L Potassium Level 4.5 3.6-5.0 MMOL/L Chloride Level 105 98-107 MMOL/L Carbon Dioxide Level 16 L 21-32 MMOL/L Anion Gap 12 5-14 MMOL/L Blood Urea Nitrogen 18 7-18 MG/DL Creatinine 1.23 0.60-1.30 MG/DL Estimat Glomerular Filtration Rate > 60 BUN/Creatinine Ratio 15 Glucose Level 241 H 70-105 MG/DL Calcium Level 8.8 8.5-10.1 MG/DL Magnesium Level 2.2 1.8-2.4 MG/DL Total Bilirubin 0.7 0.1-1.0 MG/DL Aspartate Amino Transf (AST/SGOT) 33 5-34 U/L Alanine Aminotransferase (ALT/SGPT) 63 H 0-55 U/L Alkaline Phosphatase 85 40-136 U/L Myoglobin 79.7 10.0-92.0 NG/ML Troponin I < 0.30 <0.30 NG/ML Total Protein 6.6 6.4-8.2 GM/DL Albumin 3.9 3.2-4.5 GM/DL Lipase 45 8-78 U/L My Orders Orders - MIKE,TAN J Cbc With Automated Diff (09/13/17 04:29) Magnesium (09/13/17 04:29) Chest 1 View, Ap/Pa Only (09/13/17 04:29) Ekg Tracing (09/13/17 04:29) Cardiac Profile 1 (09/13/17 04:29) Comprehensive Metabolic Panel (09/13/17 04:29) Myoglobin Serum (09/13/17 04:29) Protime With Inr (09/13/17 04:29) Partial Thromboplastin Time (09/13/17 04:29) O2 (09/13/17 04:29) Monitor-Rhythm Ecg Trace Only (09/13/17 04:29) Lipid Panel (09/14/17 06:00) Aspirin Chewable Tablet (Baby Aspirin Ch (09/13/17 04:30) Nitroglycerin 0.4 Mg Btl 25's (Nitrostat (09/13/17 04:30) Saline Lock/Iv-Start (09/13/17 04:29) Lipase (09/13/17 04:29) Ns Iv 1000 Ml (Sodium Chloride 0.9%) (09/13/17 04:42) Fibrin Degradation Products (09/13/17 04:42) Ns Iv 1000 Ml (Sodium Chloride 0.9%) (09/13/17 04:42) Manual Differential (09/13/17 04:35) Lidocaine 2% Viscous 15 Ml (Xylocaine Vi (09/13/17 05:45) Pepcid Po (09/13/17 05:44) Mylanta Po (09/13/17 05:45) Morphine Injection (Morphine Injection (09/13/17 05:45) Medications Given in ED Current Medications Medications Dose Ordered Sig/Carmel Route Start Time Stop Time Status Last Admin Dose Admin Aspirin 324 mg ONCE ONCE PO 09/13/17 04:30 09/13/17 04:32 DC 09/13/17 04:33 324 MG Nitroglycerin 0.4 mg UD PRN SL 09/13/17 04:30 09/13/17 04:33 0.4 MG Vital Signs/I&O 09/13/17 09/13/17 09/13/17 04:28 04:28 04:30 Temp 98.0 Pulse 86 Resp 19 B/P (MAP) 108/76 (87) Pulse Ox 100 100 O2 Delivery Room Air Room Air Room Air Progress Progress Note #1: Time: 04:39 Progress Note Initial chest pain workup with 324 mg aspirin given to chew up and swallow as well as nitroglycerin see if this improves his pain from a 6 out of 10. With his extensive coronary history is reasonable to start there. Differential includes PUD, pancreatitis, gastritis, pulmonary, pulmonary embolism so we'll obtain a d-dimer, chest x-ray, lipase. After the first dose of nitroglycerin his blood pressure dipped to 85/56. He should tolerate a liter of saline. Dr. Stuart performed stress echocardiogram April 2016. Severe hypertensive response to exercise which returned to baseline during recovery. Minimal nondiagnostic EKG changes with exercise. Normal echocardiographic images with no ischemic change at rest and with peak stress test. Echocardiogram from [address] Stuart shows: Normal left ventricular size and systolic function and EF of 60%. Estimated PA P of 10 mmHg. Mild mitral and tricuspid regurgitation. ED ACS 18 points. Not low risk. This patient is not a candidate for early discharge and should receive a standard chest pain evaluation with delayed troponin testing. Progress Note #2: Time: 05:40 Progress Note Patient states his pains about same as before the nitroglycerin did not help. He says the pains worse when he takes deep inspiration. Try a GI cocktail as well as some morphine for relief. Initial ECG Impression Date: Sep 13, 2017 Initial ECG Impression Time: 04:26 Initial ECG Rate: 89 Initial ECG Rhythm: Normal Sinus Initial ECG Intervals: Normal Initial ECG Impression: Normal Initial ECG Comparisson: Unchanged Comment No ST elevation or depression. Diagnostic Imaging Diagonstic Imaging: Xray Plain Films/CT/US/NM/MRI: chest (1v) Comments Unremarkable 1 view chest x-ray unchanged from 09/09/17. Reviewed: Reviewed by Me Departure Communication (Admissions) Time/Spoke to Admitting Phy: 05:49 Dr Ramey discussed case lab EKG findings and history and she agrees to see the patient. Time/Spoke to Consulting Phy: 05:46 Discussed case lab imaging EKG and findings with Dr. Stuart Impression Primary Impression: Chest pain Qualified Codes: R07.9 - Chest pain, unspecified Additional Impressions: History of multiple myeloma Chemotherapy-induced neutropenia Disposition: ADMITTED INPATIENT Condition: Stable Admissions Decision to Admit Reason: Admit from ER (General) Decision to Admit/Date: Sep 13, 2017 Time/Decision to Admit Time: 04:46 Departure-Patient Inst. Referrals: YOMI RAMESH MD (PCP/Family) Primary Care Physician Copy Copies To 1: STEF STUART MD, TITUS J Sep 13, 2017 04:36
[2017-09-13] MEDS ORDERED: NS IV 1000 ML 0 ML ONE (04:42)
[2017-09-13] MEDS ORDERED: NS IV 1000 ML 1,000 ML IV SCH (04:42)
[2017-09-13 04:48] LABS: BASOPHILS % (AUTO) 1 % (0-10); EOSINOPHILS % (AUTO) 2 % (0-10); HEMATOCRIT 41 % (40-54); HEMOGLOBIN 14.9 G/DL (13.3-17.7); LYMPHOCYTES # (AUTO) 0.1 X 10^3 (1.0-4.0); LYMPHOCYTES % (AUTO) 8 % (12-44); MEAN CORPUSCULAR HEMOGLOBIN 33 PG (25-34); MEAN CORPUSCULAR HGB CONC 36 G/DL (32-36); MEAN CORPUSCULAR VOLUME 90 FL (80-99); MEAN PLATELET VOLUME 9.7 FL (7.4-10.4); MONOCYTES # (AUTO) 0.4 X 10^3 (0.0-1.0); MONOCYTES % (AUTO) 23 % (0-12); NEUTROPHILS # (AUTO) 1.1 X 10^3 (1.8-7.8); NEUTROPHILS % (AUTO) 67 % (42-75); PLATELET COUNT 151 10^3/uL (130-400); RED BLOOD COUNT 4.55 10^6/uL (4.35-5.85); RED CELL DISTRIBUTION WIDTH 11.9 % (10.0-14.5); WHITE BLOOD COUNT 1.6 10^3/uL (4.3-11.0)
[2017-09-13 05:02] LABS: PROTHROMBIN TIME PATIENT 13.4 SEC (12.2-14.7)
[2017-09-13 05:11] LABS: ALANINE AMINOTRANSFERASE 63 U/L (0-55); ALBUMIN 3.9 GM/DL (3.2-4.5); ALKALINE PHOSPHATASE 85 U/L (40-136); BILIRUBIN,TOTAL 0.7 MG/DL (0.1-1.0); BUN/CREATININE RATIO 15; CALCIUM 8.8 MG/DL (8.5-10.1); CARBON DIOXIDE 16 MMOL/L (21-32); CHLORIDE 105 MMOL/L (98-107); CREATININE SERUM 1.23 MG/DL (0.60-1.30); GFR ESTIMATED > 60; GLUCOSE 241 MG/DL (70-105); LIPASE 45 U/L (8-78); MAGNESIUM 2.2 MG/DL (1.8-2.4); POTASSIUM 4.5 MMOL/L (3.6-5.0); SODIUM 133 MMOL/L (135-145); TOTAL PROTEIN 6.6 GM/DL (6.4-8.2)
[2017-09-13 05:17] LABS: BAND NEUTROPHILS 4 %; EOSINOPHILS % (MANUAL) 2 %; LYMPHOCYTES % (MANUAL) 2 %; MONOCYTES % (MANUAL) 18 %; NEUTROPHILS % (MANUAL) 74 %; RBC MORPH NORMAL
[2017-09-13 05:24] LABS: MYOGLOBIN SERUM 79.7 NG/ML (10.0-92.0)
[2017-09-13] MEDS ORDERED: FAMOTIDINE 20 MG (PEPCID) TABLET PO STA (05:44)
[2017-09-13] MEDS ORDERED: ANTACID SUSP 30 ML UDC (MYLANTA) PO ONE (05:45)
[2017-09-13] MEDS ORDERED: LIDOCAINE 2% VISCOUS 15 ML UDC PO ONE (05:45)
[2017-09-13] MEDS ORDERED: morphine INJ 10 MG/ML 1ML (SYR OR VIAL) IVP ONE (05:45)
--- NOTE | 2017-09-13 05:52 | Diagnostic Imaging Report ---
Patient History: Chest pain. Technique: Single frontal view of the chest Comparison: 09/09/2017 FINDINGS: The lung volumes are normal. No focal consolidation is seen. No large pleural effusion or pneumothorax is seen. The cardiomediastinal silhouette is normal in size and contour. No acute osseous abnormality is seen. The left-sided Port-A-Cath tip projects over the mid SVC. IMPRESSION: No acute pulmonary abnormality seen. Dictated by: Dictated on workstation # [id number]
[2017-09-13] MEDS ORDERED: ONDANSETRON 4 MG/2 ML (SDV) Z0FRAN IV PRN (07:00)
[2017-09-13] MEDS: GABAPENTIN 300 MG (NEURONTIN) CAP PO SCH ×3 (07:46→20:08)
[2017-09-13] MEDS: ASPIRIN E.C. 81 MG (ECOTRIN) TAB PO SCH (07:47)
[2017-09-13] MEDS: lisINopril 5 MG (PRINIVIL) TABLET PO SCH (07:47)
[2017-09-13] MEDS: HYDROcodone/APAP 7.5 MG/325 MG (LORTAB, LORCET PLUS) TABLET PO SCH ×3 (07:47→20:08)
[2017-09-13] MEDS ORDERED: NS IV 1000 ML 1,000 ML ONE ×2 (08:47→09:31)
--- NOTE | 2017-09-13 08:53 | Consultation-Cardiology ---
HPI-Cardiology Cardiology Consultation Date of Consultation 09/13/17 Date of Admission Time Seen by Provider: 08:47 Indication: Chest pain HPI 67 years old gentleman with history of coronary artery disease, 3 heart attacks in the past, had stent about 10 years ago. Was in his usual state of health, he started on chemotherapy for multiple myeloma recently and since then has been complaining of fatigue and loss of energy increasing shortness of breath. He was hospitalized recently for dehydration and acute renal failure. Earlier this morning, he started having chest pain described it as pressure all over his chest radiating to the back, shoulder and arms and neck. The pain got better upon arrival to the emergency room but continued to have waxing and waning pain, having mild chest discomfort at this time. Reported shortness of breath and diaphoresis during the chest pain episode. EKG and cardiac enzymes were negative. Home Medications & Allergies Allergies: Coded Allergies: codeine (Unverified Allergy, Unknown, 08/25/17) levofloxacin (Unverified Allergy, Unknown, 08/25/17) niacin (Unverified Allergy, Unknown, 08/25/17) Uncoded Allergies: DARVOCET (Allergy, Unknown, 08/25/17) ERYTHROMYCIN (Allergy, Unknown, 08/25/17) Home Medication List Reviewed: Yes LGM-Mxqyet-Drxdts Hx Patient Social History Marital Status: Alcohol Use: Occasionally Uses Recreational Drug Use: No (past history, distant) Drug of Choice: OPIATES Smoking Status: Former Smoker Type Used: Cigarettes 2nd Hand Smoke Exposure: No Recent Foreign Travel: No Recent Infectious Disease Expo: No Recent Hopitalizations: Yes Physical Abuse Screen: No Sexual Abuse: No Immunizations Up To Date Date of Pneumonia Vaccine: Jan 09, 2015 Past Medical History discussed below Family Medical History Significant Family History: Cancer Family Medical Hx non contributory to his current condition Constitutional: see HPI, weakness EENTM: see HPI, no symptoms reported Respiratory: see HPI; No cough; dyspnea on exertion; No hemoptysis, No orthopnea, No phlegm; short of breath; No stridor, No wheezing, No other Cardiovascular: No no symptoms reported; see HPI, chest pain, edema; No Hx of Intervention, No palpitations, No syncope, No vascular heart diseas, No other Gastrointestinal: no symptoms reported, see HPI Genitourinary: see HPI Musculoskeletal: no symptoms reported, see HPI Skin: no symptoms reported, see HPI Psychiatric/Neurological: No Symptoms Reported, See HPI Reviewed Test Results Reviewed Test Results Lab Laboratory Tests Test 09/13/17 04:35 Range/Units White Blood Count 1.6 L 4.3-11.0 10^3/uL Red Blood Count 4.55 4.35-5.85 10^6/uL Hemoglobin 14.9 13.3-17.7 G/DL Hematocrit 41 40-54 % Mean Corpuscular Volume 90 80-99 FL Mean Corpuscular Hemoglobin 33 25-34 PG Mean Corpuscular Hemoglobin Concent 36 32-36 G/DL Red Cell Distribution Width 11.9 10.0-14.5 % Platelet Count 151 130-400 10^3/uL Mean Platelet Volume 9.7 7.4-10.4 FL Neutrophils (%) (Auto) 67 42-75 % Lymphocytes (%) (Auto) 8 L 12-44 % Monocytes (%) (Auto) 23 H 0-12 % Eosinophils (%) (Auto) 2 0-10 % Basophils (%) (Auto) 1 0-10 % Neutrophils # (Auto) 1.1 L 1.8-7.8 X 10^3 Lymphocytes # (Auto) 0.1 L 1.0-4.0 X 10^3 Monocytes # (Auto) 0.4 0.0-1.0 X 10^3 Eosinophils # (Auto) 0.0 0.0-0.3 10^3/uL Basophils # (Auto) 0.0 0.0-0.1 10^3/uL Neutrophils % (Manual) 74 % Lymphocytes % (Manual) 2 % Monocytes % (Manual) 18 % Eosinophils % (Manual) 2 % Band Neutrophils 4 % Blood Morphology Comment NORMAL Prothrombin Time 13.4 12.2-14.7 SEC INR Comment 1.0 0.8-1.4 Activated Partial Thromboplast Time 31 24-35 SEC D-Dimer 0.44 0.00-0.49 UG/ML Sodium Level 133 L 135-145 MMOL/L Potassium Level 4.5 3.6-5.0 MMOL/L Chloride Level 105 98-107 MMOL/L Carbon Dioxide Level 16 L 21-32 MMOL/L Anion Gap 12 5-14 MMOL/L Blood Urea Nitrogen 18 7-18 MG/DL Creatinine 1.23 0.60-1.30 MG/DL Estimat Glomerular Filtration Rate > 60 BUN/Creatinine Ratio 15 Glucose Level 241 H 70-105 MG/DL Calcium Level 8.8 8.5-10.1 MG/DL Magnesium Level 2.2 1.8-2.4 MG/DL Total Bilirubin 0.7 0.1-1.0 MG/DL Aspartate Amino Transf (AST/SGOT) 33 5-34 U/L Alanine Aminotransferase (ALT/SGPT) 63 H 0-55 U/L Alkaline Phosphatase 85 40-136 U/L Myoglobin 79.7 10.0-92.0 NG/ML Troponin I < 0.30 <0.30 NG/ML Total Protein 6.6 6.4-8.2 GM/DL Albumin 3.9 3.2-4.5 GM/DL Lipase 45 8-78 U/L Physical Exam Vital Signs Vital Signs - First Documented 09/13/17 09/13/17 04:28 08:00 Temp 98.0 Pulse 86 Resp 19 B/P (MAP) 108/76 (87) Pulse Ox 100 O2 Delivery Room Air O2 Flow Rate 100.00 Capillary Refill : Less Than 3 Seconds General Appearance: No Apparent Distress, WD/WN Eyes: Bilateral Eye Normal Inspection, Bilateral Eye PERRL, Bilateral Eye EOMI HEENT: PERRL/EOMI, TMs Normal, Normal ENT Inspection, Pharynx Normal Neck: Full Range of Motion, Normal Inspection, Non Tender, Supple, Carotid Bruit Respiratory: Chest Non Tender, Lungs Clear, Normal Breath Sounds, No Accessory Muscle Use, No Respiratory Distress Cardiovascular: Regular Rate, Rhythm, No Edema, No Gallop, No JVD, No Murmur, Normal Peripheral Pulses Gastrointestinal: Normal Bowel Sounds, No Organomegaly, No Pulsatile Mass, Non Tender, Soft Back: Normal Inspection, No CVA Tenderness, No Vertebral Tenderness Extremity: Normal Capillary Refill, Normal Inspection, Normal Range of Motion, Non Tender, No Calf Tenderness, No Pedal Edema Neurologic/Psychiatric: Alert, Oriented x3, No Motor/Sensory Deficits, Normal Mood/Affect Skin: Normal Color, Warm/Dry Lymphatic: No Adenopathy A/P-Cardiology Admission Diagnosis Unstable angina Dyspnea on exertion Coronary artery disease Hyperlipidemia Assessment/Plan Chest pain, unstable angina, no acute EKG changes or cardiac enzymes elevation, still having waxing and waning chest pain, will be unable to tolerate stress test at this time, discussed the management plan and decided to proceed with cardiac catheterization possible PTCA Dyspnea on exertion, having worsening dyspnea while having active chest pain. Planning to proceed with cardiac catheterization. Dizziness and lightheadedness, history of syncope, reporting improvement, no further syncopal episodes were reported. Continue to monitor at this time Coronary artery disease, history of myocardial infarction about 10 years ago, had a stent placed, another 2 MIs in the past. Planning to proceed with cardiac catheterization Hypotension, questionable history of hypertension, was in renal failure, continue to monitor Status post acute renal failure, hospitalized with dehydration and acute renal failure. Continue to monitor renal function Hyperlipidemia, maintained on simvastatin the past. It was recently discontinued secondary to leg cramps. Patient reports he also had DELON which was within normal limits. Continue to monitor History of tobaccoism, illicit drug use. Educated on avoiding any illicit drugs or tobacco product. Patient expressed that he has stopped using drugs for a long period of time. History of multiple myeloma, was in remission until recently, restarted on chemotherapy. Diabetes mellitus-managed by primary care physician. Unable to tolerate LINO or ARB secondary to hypotension. Gastroesophageal reflux disease Clinical Quality Measures AMI/AHF: ASA po Prior to arrival: No DVT/VTE Risk/Contraindication: Risk Factor Score Per Nursin RFS Level Per Nursing on Admit: 4+=Very High STEF JOE MD Sep 13, 2017 08:53
--- NOTE | 2017-09-13 08:54 | History & Physical-Hospitalist ---
History of Present Illness HPI/Chief Complaint Pt is a 67yoAAM known to me from recent admission this week for ROBSON who presented to the ER with CC of chest pain. He states he was laying on the couch at rest and developed severe chest pain. He describes it as pressure and was in the center of his chest and radiated to the back. He was also profoundly diaphoretic and dyspneic with this. He states his symptoms have improved somewhat but he is still having "twinging" of chest pain and is still short of breath. He does have a history of CAD and [place]. His most recent stress test was in 2017 which was deemed low risk. He was also walking 6 miles a day at that time but his activity level has changed drastically since starting chemo three months ago. Has taken nitro in the past without improvement so did not try this time. Source: patient Exam Limitations: no limitations Date Seen 09/13/17 Time Seen by Provider: 08:49 Attending Physician Phil Del Cid MD PCP Prosper Arenas MD Referring Physician Date of Admission Sep 13, 2017 at 05:50 Home Medications & Allergies Home Medications Reviewed patient Home Medication Reconciliation performed by pharmacy medication reconciliations gameroom technician and/or nursing. Patients Allergies have been reviewed. Allergies Allergies Coded Allergies codeine (Unverified Allergy, Unknown, 08/25/17) levofloxacin (Unverified Allergy, Unknown, 08/25/17) niacin (Unverified Allergy, Unknown, 08/25/17) Uncoded Allergies DARVOCET ( Allergy, Unknown, 08/25/17) ERYTHROMYCIN ( Allergy, Unknown, 08/25/17) Past Zyxofym-Dzdale-Govvfz Hx Past Med/Social Hx: Reviewed Nursing Past Med/Soc Hx Patient Social History Marrital Status: Alcohol Use: Regular Use Number of Drinks Today: BB Alcohol Beverage of Choice: Johnson Recreational Drug Use: No (past history, distant) Drug of Choice: OPIATES Smoking Status: Former Smoker Former Smoker, Quit: Jan 08, 1973 Type Used: Cigarettes 2nd Hand Smoke Exposure: No Physical Abuse Screen: No Sexual Abuse: No Recent Foreign Travel: No Contact w/other who traveled: No Recent Hopitalizations: Yes Recent Infectious Disease Expo: No Immunizations Up To Date Date of Pneumonia Vaccine: Jan 09, 2015 Seasonal Allergies Seasonal Allergies: No Past Medical History Surgeries: Abdominal, Cardiac, Coronary Stent, Orthopedic Currently Using CPAP: No Currently Using BIPAP: No Cardiac: Coronary Artery Disease, Heart Attack, High Cholesterol, Hypertension Sexually Transmitted Disease: No HIV/AIDS: No Gastrointestinal: Abdominal Hernia, Gastroesophageal Reflux, Hepatitis Musculoskeletal: Fractures Endocrine: Diabetes, Insulin dep Are Your Blood Sugars Over 250: No HEENT: Cataract Loss of Vision: Denies Hearing Impairment: Denies Did You Recieve Any Treatments: Yes What Type of Treatment Did You: Chemotherapy History of Blood Disorders: Yes (PANCYTOPENIA ON CHEMO) Adverse Reaction to Blood Negron: No Family History Reviewed Nursing Family Hx Cancer (colon) Review of Systems Constitutional: No chills; diaphoresis; No fever; weakness EENTM: No blurred vision, No double vision, No nose congestion, No throat pain Respiratory: No cough; dyspnea on exertion, short of breath Cardiovascular: see HPI, chest pain; No edema; Hx of Intervention; No syncope Gastrointestinal: No abdominal pain, No constipation, No diarrhea; loss of appetite; No nausea, No vomiting Genitourinary: No dysuria, No frequency Musculoskeletal: No joint pain, No muscle pain Skin: No lesions, No rash Psychiatric/Neurological: Denies Headache, Denies Numbness, Denies Tingling All Other Systems Reviewed Negative Unless Noted: Yes (Negative excepted noted.) Physical Exam Physical Exam Vital Signs Vital Signs - First Documented 09/13/17 09/13/17 04:28 08:00 Temp 98.0 Pulse 86 Resp 19 B/P (MAP) 108/76 (87) Pulse Ox 100 O2 Delivery Room Air O2 Flow Rate 100.00 Capillary Refill : Less Than 3 Seconds General Appearance: No Apparent Distress, WD/WN HEENT: PERRL/EOMI, Moist Mucous Membranes; No Scleral Icterus (L), No Scleral Icterus (R) Neck: Non Tender, Supple; No JVD, No Thyromegaly Respiratory: Lungs Clear, No Respiratory Distress Cardiovascular: Regular Rate, Rhythm, No JVD, No Murmur Gastrointestinal: Normal Bowel Sounds, Non Tender, Soft Extremity: Normal Capillary Refill, No Calf Tenderness Neurologic/Psychiatric: Alert, Oriented x3, No Motor/Sensory Deficits, Normal Mood/Affect Skin: Normal Color, Warm/Dry Results Results/Procedures Labs Laboratory Tests 09/13/17 04:35 Patient resulted labs reviewed. Imaging Date of Exam: 09/13/17 CHEST 1 VIEW, AP/PA ONLY Patient History: Chest pain. Technique: Single frontal view of the chest Comparison: 09/09/2017 FINDINGS: The lung volumes are normal. No focal consolidation is seen. No large pleural effusion or pneumothorax is seen. The cardiomediastinal silhouette is normal in size and contour. No acute osseous abnormality is seen. The left-sided Port-A-Cath tip projects over the mid SVC. IMPRESSION: No acute pulmonary abnormality seen. Assessment/Plan Admission Diagnosis Chest Pain Admission Status: Observation Diagnosis/Problems Diagnosis/Problems (1) Chest pain Status: Acute Assessment & Plan: Cardiology consulted, appreciate recs Trop negative x1 Concerning for angina Plan for cath today Monitor on telemetry Qualifiers: Chest pain type: unspecified Qualified Codes: R07.9 - Chest pain, unspecified (2) CKD (chronic kidney disease) Status: Chronic Assessment & Plan: At baseline Will trend Will start IVF in preparation for contrast in cath Qualifiers: Chronic kidney disease stage: stage 3 (moderate) Qualified Codes: N18.3 - Chronic kidney disease, stage 3 (moderate) (3) Insulin dependent diabetes mellitus Assessment & Plan: BS elevated on arrival SSI per his regimen ( 7 units for BS 200-300, 10 units for >300) Continue home basal insulin (4) Chemotherapy-induced neutropenia Status: Acute Assessment & Plan: Trend No fever (5) History of multiple myeloma Status: Acute Assessment & Plan: On chemo Follows with outside oncology Like chemo around 1 week ago (6) Prophylactic measure Assessment & Plan: NPO NS @100ml/hr SCDs Clinical Quality Measures AMI/AHF: ASA po Prior to arrival: No DVT/VTE Risk/Contraindication: Risk Factor Score Per Nursin RFS Level Per Nursing on Admit: 4+=Very High PHIL DEL CID MD Sep 13, 2017 08:54
--- NOTE | 2017-09-13 08:57 | Cardiac Procedure Note-CS/ASA ---
Pre-Procedure Note Pre-Op Procedure Note H&P Reviewed The H&P was reviewed, patient examined and no changes noted. Date H&P Reviewed: Sep 13, 2017 Time H&P Reviewed: 08:57 Conscious Sedation Pre-Proced Time Reviewed: 08:57 ASA Class: 3 Airway Mallampati Classification: (holy cross appropriate class) I. II. III, IV Lungs Heart ASA score ASA 1: a normal healthy patient ASA 2: a patient with a mild systemic disease (mid diabetes, controlled hypertension, obesity x ASA 3: a patient with a severe systemic disease that limits activity (angina , COPD, prior Myocardial infarction) ASA 4: a patient with an incapacitating disease that is a constant threat to life (CHF, renal failure) ASA 5: a moribund patient not expected to survive 24 hrs. (ruptured aneurysm) ASA 6: a declared brain patient whose organs are being harvested. For emergent operations, add the letter E after the classification Grade 3 Sedation Plan: Analgesia, Amnesia, Plan communicated to team members, Discussed options with patient/fam, Discussed risks with patient/fam Note The patient is an appropriate candidate to undergo the planned procedure, sedation, and anesthesia. The patient immediately re-assessed prior to indication. STEF JOE MD Sep 13, 2017 08:57
[2017-09-13] MEDS ORDERED: LIDOCAINE 1% INJ 20 ML 20 ML VIAL ONE ×2 (09:30→10:15)
[2017-09-13] MEDS ORDERED: HEParin (CATH LAB) 2,000 ML IV ONE (09:31)
[2017-09-13] MEDS ORDERED: fentaNYL INJECTION 100 MCG/2 ML AMP ONE (09:31)
[2017-09-13] MEDS ORDERED: MIDAZOLAM 5 MG/5 ML (VERSED) VIAL ONE (09:31)
--- NOTE | 2017-09-13 10:38 | Cardiac Cath Report ---
Cardiac Cath Report Physician (s)/Assembly Adjuster (s) Physician STEF JOE MD Pre-Procedure Diagnosis Pre-Procedure Diagnosis: Chest pain, coronary artery disease Post-Procedure Note Procedure Start Date: Sep 13, 2017 Name of Procedure: Left heart catheterization Findings/Procedure Note PROCEDURE NOTE: After explaining the procedure to the patient, all pros and cons were explained , all questions were answered. The patient signed the consent and then he was placed on the cardiac catheterization laboratory. Groin was prepped SL fashion local anesthesia was used. Sheath placed in the right femoral artery. Valeria right and left catheter were used to access the coronary system. JR catheter advanced left ventricular cavity, pressure was measured, no left ventricular gram was done. At the end of the procedure the sheath was removed. Manual pressure applied FINDINGS: Hemodynamics LV 112/13, end-diastolic pressure 13 Aorta 118/68 mean of 88 ANATOMY: Left Main is free of obstructive disease Left Anterior Descending has mild disease with slow flow in the left system due to small vessel disease Left Circumflex has slow flow due to small vessel disease Right Coronary Artery has patent stents with mild disease obstructive disease LV Gram was not done, normal left ventricular end-diastolic pressure CONCLUSION: 1. Patent stent in the midright coronary artery with mild coronary artery disease and slow flow in the coronary system due to small vessel disease 2. Normal left ventricular end-diastolic pressure DISCUSSION AND RECOMMENDATION: Medical therapy is recommended no intervention is warranted Anesthesia Type: Conscious Sedation Estimated blood loss (mL): 10 ml Contrast Amount: 22 ml Total Radiation Dose: 385 mGy Post-Procedure Diagnosis Post-operative diagnosis: Chest pain nonspecific etiology Coronary artery disease Hyperlipidemia Hypertension (1) Chest pain Assessment & Plan: Cardiology consulted, appreciate recs Trop negative x1 Concerning for angina Plan for cath today Monitor on telemetry Qualifiers: Qualified Codes: R07.9 - Chest pain, unspecified (2) CKD (chronic kidney disease) Assessment & Plan: At baseline Will trend Will start IVF in preparation for contrast in cath Qualifiers: Qualified Codes: N18.3 - Chronic kidney disease, stage 3 (moderate) (3) Insulin dependent diabetes mellitus Assessment & Plan: BS elevated on arrival SSI per his regimen ( 7 units for BS 200-300, 10 units for >300) Continue home basal insulin (4) Chemotherapy-induced neutropenia Assessment & Plan: Trend No fever (5) History of multiple myeloma Assessment & Plan: On chemo Follows with outside oncology Like chemo around 1 week ago (6) Prophylactic measure Assessment & Plan: NPO NS @100ml/hr YUSRAs STEF JOE MD Sep 13, 2017 10:38
[2017-09-13] MEDS: ACYCLOVIR 400 MG TABLET (ZOVIRAX) PO SCH ×2 (12:41→20:08)
[2017-09-13] MEDS: NS IV 1000 ML 1,000 ML IV SCH ×2 (12:42→20:10)
--- OUTSIDE RECORDS SUMMARY | 2017-09-13 12:42 | XMS REPORT | Clinical Summary ---
Author Author Admin, Kaylynn Organization [facility] [employer] Address Unknown Phone Unavailable Allergies, Adverse Reactions, Alerts Allergy Name Reaction Description Start Date Severity Status Provider ERYTHROMYCIN Stomach cramps Moderate Active Prosper Arenas MD CODEINE Critical Active Maliheh Ziglari PAROLE OR PROBATION OFFICER DARVOCET Critical Active Maliheh Ziglari PAROLE OR PROBATION OFFICER LEVAQUIN Critical Active Maliheh Ziglari PAROLE OR PROBATION OFFICER Conditions or Problems Problem Name Problem Code Onset Date Status Entry Date Provider Comment Standard Description Annotate Diabetes, Type 2 250.00 Resolved 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 mellitus without mention of complication, type [...] type II, uncontrolled 250.02 Active Maliheh Rodrigoglari PAROLE OR PROBATION OFFICER Diabetes mellitus without mention of complication, [...] and adjustment of vascular catheter V58.81 Resolved Tmai Miller RN Encounter for fitting and adjustment of vascular catheter Type 2 diabetes mellitus with hyperglycemia 250.00 Active 03/21 Maliheh Ziglari PAROLE OR PROBATION OFFICER Diabetes mellitus without mention of complication, type II or unspecified type, not stated as uncontrolled FDC use of insulin treatment V58.67 Active Luxiheh Rodrigoglari PAROLE OR PROBATION OFFICER Long-term (current) use of insulin Diabetes mellitus, type II with hypoglycemia 250.80 Active 07/22 Maliheh Ziglari PAROLE OR PROBATION OFFICER Diabetes mellitus with other specified manifestations, type II or unspecified type, not stated as uncontrolled 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 Maliheh Ziglari PAROLE OR PROBATION OFFICER Diabetes mellitus with renal manifestations, type II or unspecified type, not stated as uncontrolled Wellness exam V70.0 Active Dee Palmer APRN Routine general medical examination at a health care facility Fitting and adjustment of vascular catheter V58.81 Active 02/06 Dee Palmer APRN Encounter for fitting and adjustment of vascular catheter Unawareness of hypoglycemia in diabetes mellitus, type II 250.80 Active Maliheh Rodrigoglari PAROLE OR PROBATION OFFICER Diabetes mellitus with other specified manifestations, [...] specified as recurrent) Gastritis Inactive Maliheh Rodrigoglrex PAROLE OR PROBATION OFFICER Unspecified gastritis and gastroduodenitis, without mention [...] po qd x 4 days 05/07 AZITHROMYCIN 59753364232 No Longer Active Dee Palmer APRN Active GUAIFENESIN DM 400-20 MG ORAL TABLET 1 pill by mouth twice daily, if needed for cough DEXTROMETHORPHAN-GUAIFENESIN 48120786184 Active Dee Palmer APRN Active PREDNISONE 20 MG ORAL TABLET 2 tabs daily for 4 days, 1 tab daily for 4 days, 1/2 tab daily for 4 days PREDNISONE 88835735376 Active Dee Palmer APRN Active ASPIRIN 81 MG ORAL TABLET 1 po qd ASPIRIN 47158879729 Active Ryanllvito Barkleyl CHAIR INSPECTOR Active CALCIUM 500/D 500-200 MG-UNIT ORAL TABLET one tablet daily CALCIUM CARBONATE-VITAMIN D 82715156152 No Longer Active Jillvito Barkleyngoc CHAIR INSPECTOR Active HYDROCODONE-ACETAMINOPHEN 7.5-325 MG ORAL TABLET 1-2 every 4-6 hrs prn 02/25 HYDROCODONE-ACETAMINOPHEN 51584054451 Active Marina Messina CHAIR INSPECTOR Active ASPIRIN 81 MG ORAL TABLET 1 tablet by mouth daily ASPIRIN 83076685365 No Longer Active Marina Messina CHAIR INSPECTOR Active SIMVASTATIN 80 MG ORAL TABLET 1/2 tablet daily SIMVASTATIN 25683517170 No Longer Active Mekhi Dukes MD Active OMEPRAZOLE 20 MG ORAL CAPSULE DELAYED RELEASE 1 qd OMEPRAZOLE 99283561758 No Longer Active Mekhi Dukes MD Active METOPROLOL TARTRATE 25 MG ORAL TABLET 1/2 tablet twice a day METOPROLOL TARTRATE 99994899942 No Longer Active Mekhi Dukes MD Active LISINOPRIL 5 MG ORAL TABLET 1 daily LISINOPRIL 70188884091 No Longer Active Mekhi Dukes MD Active NOVOLOG FLEXPEN 100 UNIT/ML SUBCUTANEOUS SOLUTION PEN-INJECTOR Take 8 units with each meal, add 1u/50 for blood sugars above 150. INSULIN ASPART 05438898480 Active Moy PARISH Active GABAPENTIN 300 MG ORAL CAPSULE 1 tab BID GABAPENTIN 38876867086 Active Tami Miller RN Active PREDNISONE 20 MG ORAL TABLET Take 2 daily for 3 days and then 1 daily for 3 days PREDNISONE 97692596967 No Longer Active Moy PARISH Active BENZONATATE 200 MG ORAL CAPSULE Take 1 tablet 3 times a day as needed for cough BENZONATATE 71429192412 No Longer Active Prosper Arenas MD Active HYDROCHLOROTHIAZIDE 25 MG ORAL TABLET 1 tablet by mouth daily HYDROCHLOROTHIAZIDE 14858733759 No Longer Active Prosper Arenas MD Active ACCU-CHEK JOANNA PLUS IN VITRO STRIP check blood sugars 5x a day, before each meal and bedtime and 15 minutes after treating a low blood. sugar GLUCOSE BLOOD 12594736269 Active Moy Wallaceglrex PARISH Active LANTUS SOLOSTAR 100 UNIT/ML SUBCUTANEOUS SOLUTION PEN-INJECTOR Take 40 units at 7-8pm daily INSULIN GLARGINE 24312187520 Active Maliheh Ziglari PAROLE OR PROBATION OFFICER Active MECLIZINE HCL 25 MG ORAL TABLET 1 daily needed for dizziness 2015 MECLIZINE HCL 14174759218 No Longer Active Maliheh Ziglari PAROLE OR PROBATION OFFICER Active BENZONATATE 200 MG ORAL CAPSULE 1 tab, 2-3 times a day BENZONATATE 95310152566 No Longer Active Maliheh Ziglari PAROLE OR PROBATION OFFICER Active HALOPERIDOL 0.5 MG ORAL TABLET one tablet three times a day HALOPERIDOL 80048538674 No Longer Active Maliheh Ziglari PAROLE OR PROBATION OFFICER Active TRAZODONE HCL 50 MG ORAL TABLET three tablets at bed time TRAZODONE HCL 29264268474 No Longer Active Maleh Ziglari PAROLE OR PROBATION OFFICER Active REVLIMID 25 MG ORAL CAPSULE one capsule daily for 21 days then off for 7 days LENALIDOMIDE 26468469650 No Longer Active Maleh Ziglari PAROLE OR PROBATION OFFICER Active ZITHROMAX Z-EDDIE 250 MG ORAL TABLET 2 today, then 1 daily for 4 days AZITHROMYCIN 06778835086 No Longer Active Augustina Mata APRN Active NOVOLIN R RELION 100 UNIT/ML INJECTION SOLUTION 30- 40 units each meal sliding scale INSULIN REGULAR HUMAN 39325883991 No Longer Active Maleh Ziglari PAROLE OR PROBATION OFFICER Active HYDROCODONE-ACETAMINOPHEN 5-500 MG ORAL TABLET 1-2 FOUR TIMES A DAY, PRN 2010 HYDROCODONE-ACETAMINOPHEN 26381599291 No Longer Active Prosper Arenas MD Active DOXYCYCLINE HYCLATE 100 MG ORAL CAPSULE take one capsule by mouth twice daily for ten days DOXYCYCLINE HYCLATE 28963931967 No Longer Active Mekhi Dukes MD Active DOXYCYCLINE HYCLATE 100 MG ORAL CAPSULE take one capsule by mouth twice daily for ten days DOXYCYCLINE HYCLATE 100 MG ORAL CAPSULE 2133717 DOXYCYCLINE HYCLATE Inactive HYDROCODONE-ACETAMINOPHEN 5-500 MG ORAL TABLET 1-2 FOUR TIMES A DAY, PRN 2010 HYDROCODONE-ACETAMINOPHEN 5-500 MG ORAL TABLET HYDROCODONE-ACETAMINOPHEN Inactive NOVOLIN R RELION 100 UNIT/ML INJECTION SOLUTION 30- 40 units each meal sliding scale NOVOLIN R RELION 100 UNIT/ML INJECTION SOLUTION INSULIN REGULAR HUMAN Inactive ZITHROMAX Z-EDDIE 250 MG ORAL TABLET 2 today, then 1 daily for 4 days ZITHROMAX Z-EDDIE 250 MG ORAL TABLET 703305 AZITHROMYCIN Inactive REVLIMID 25 MG ORAL CAPSULE one capsule daily for 21 days then off for 7 days REVLIMID 25 MG ORAL CAPSULE LENALIDOMIDE Inactive TRAZODONE HCL 50 MG ORAL TABLET three tablets at bed time TRAZODONE HCL 50 MG ORAL TABLET 622979 TRAZODONE HCL Inactive HALOPERIDOL 0.5 MG ORAL TABLET one tablet three times a day HALOPERIDOL 0.5 MG ORAL TABLET 585382 HALOPERIDOL Inactive BENZONATATE 200 MG ORAL CAPSULE 1 tab, 2-3 times a day BENZONATATE 200 MG ORAL CAPSULE 245708 BENZONATATE Inactive MECLIZINE HCL 25 MG ORAL TABLET 1 daily needed for dizziness 2015 MECLIZINE HCL 25 MG ORAL TABLET 991875 MECLIZINE HCL Inactive HYDROCHLOROTHIAZIDE 25 MG ORAL TABLET 1 tablet by mouth daily HYDROCHLOROTHIAZIDE 25 MG ORAL TABLET 149631 HYDROCHLOROTHIAZIDE Inactive PREDNISONE 20 MG ORAL TABLET Take 2 daily for 3 days and then 1 daily for 3 days PREDNISONE 20 MG ORAL TABLET 161054 PREDNISONE Inactive LISINOPRIL 5 MG ORAL TABLET 1 daily LISINOPRIL 5 MG ORAL TABLET 740818 LISINOPRIL Inactive METOPROLOL TARTRATE 25 MG ORAL TABLET 1/2 tablet twice a day METOPROLOL TARTRATE 25 MG ORAL TABLET 708162 METOPROLOL TARTRATE Inactive OMEPRAZOLE 20 MG ORAL CAPSULE DELAYED RELEASE 1 qd OMEPRAZOLE 20 MG ORAL CAPSULE DELAYED RELEASE 339454 OMEPRAZOLE Inactive SIMVASTATIN 80 MG ORAL TABLET 1/2 tablet daily SIMVASTATIN 80 MG ORAL TABLET 928143 SIMVASTATIN Inactive ASPIRIN 81 MG ORAL TABLET 1 tablet by mouth daily ASPIRIN 81 MG ORAL TABLET ASPIRIN Inactive CALCIUM 500/D 500-200 MG-UNIT ORAL TABLET one tablet daily CALCIUM 500/D 500-200 MG-UNIT ORAL TABLET CALCIUM CARBONATE-VITAMIN D Inactive BENZONATATE 200 MG ORAL CAPSULE Take 1 tablet 3 times a day as needed for cough BENZONATATE 200 MG ORAL CAPSULE 934129 BENZONATATE Inactive AZITHROMYCIN 250 MG ORAL TABLET 2 po qd x 1 day, then 1 po qd x 4 days 05/07 AZITHROMYCIN 250 MG ORAL TABLET 533938 AZITHROMYCIN Inactive Immunizations Vaccine Administration Date Value [...] % 11.6-14.8 platelet count 294 10^3/MM^3 10*3/mm3 038-368 4502/05/29 leukocyte count, blood 2.4 10^3/MM^3 10*3/mm3 4.6-10.2 [...] % 11.6-14.8 platelet count 138 10^3/MM^3 10*3/mm3 808-094 3074/06/12 leukocyte count, blood 4.3 10^3/MM^3 10*3/mm3 4.6-10.2 neutrophils as percent of blood leukocytes 54.8 % 42.2-75.2 monocytes as percent of blood leukocytes 19.4 % 1.7-9.3 lymphocytes as percent of blood leukocytes 24.0 % 20.5-51.1 erythrocyte (RBC) count 4.93 10^6/MM^3 10*6/mm3 4.50-6.50 hemoglobin, blood 16.3 g/dL 14.0-18.0 hematocrit, blood 48.6 % 40.0-54.0 mean corpuscular volume, RBC 99 fL 80-97 mean corpuscular hemoglobin, RBC 33.1 pg 27.0-31.2 mean corpuscular hemoglobin concentration, RBC 33.5 G/DL % 31.8- 35.4 red blood cell distribution width 13.3 % 11.6-14.8 platelet count 355 10^3/MM^3 10*3/mm3 142-424 Lab Report: CBC W/DIFF, Comp. Metabolic Panel - Chemistry sodium, serum 137 mmol/L 231-662 1439/06/05 carbon dioxide, venous blood 26.0 mmol/L 21.0-32.0 potassium, serum 4.5 mmol/L 3.5-5.2 chloride, serum 100 mmol/L 98-107 blood glucose 100 mg/dL 65-95 urea nitrogen, blood 16 mg/dL 7-18 creatinine, serum 1.67 mg/dL 0.60-1.30 alanine aminotransferase (SGPT), serum 75 U/L 12-78 aspartate aminotransferase (SGOT), serum 46 U/L 15- calcium, serum 9.8 mg/dL 8.5-10.1 bilirubin, serum, total 0.40 mg/dL 0.00-1.00 sodium, serum 134 mmol/L 219-288 5033/05/15 carbon dioxide, venous blood 23.5 mmol/L 21.0-32.0 potassium, serum 4.8 mmol/L 3.5-5.2 chloride, serum 101 mmol/L 98-107 blood glucose 139 mg/dL 65-95 urea nitrogen, blood 19 mg/dL 7- creatinine, serum 1.79 mg/dL 0.60-1.30 alanine aminotransferase (SGPT), serum 140 U/L aspartate aminotransferase (SGOT), serum 104 U/L calcium, serum 8.5 mg/dL 8.5-10.1 bilirubin, serum, total 0.40 mg/dL 0.00-1.00 sodium, serum 135 mmol/L 875-300 1444/05/08 carbon dioxide, venous blood 29.0 mmol/L 21.0-32.0 potassium, serum 4.8 mmol/L 3.5-5.2 chloride, serum 101 mmol/L 98-107 blood glucose 165 mg/dL 65-95 urea nitrogen, blood 19 mg/dL 7-18 creatinine, serum 1.51 mg/dL 0.60-1.30 alanine aminotransferase (SGPT), serum 65 U/L aspartate aminotransferase (SGOT), serum 38 U/L - calcium, serum 8.2 mg/dL 8.5-10.1 bilirubin, serum, total 0.50 mg/dL 0.00-1.00 sodium, serum 135 mmol/L 148-378 0735/04/10 carbon dioxide, venous blood 26.1 mmol/L 21.0-32.0 potassium, serum 4.2 mmol/L 3.5-5.2 chloride, serum 100 mmol/L 98-107 blood glucose 293 mg/dL 65-110 urea nitrogen, blood 18 mg/dL 7-18 creatinine, serum 2.06 mg/dL 0.60-1.30 alanine aminotransferase (SGPT), serum 59 U/L 12-78 aspartate aminotransferase (SGOT), serum 47 U/L 15-37 calcium, serum 8.6 mg/dL 8.5-10.1 bilirubin, serum, total 0.30 mg/dL 0.00-1.00 sodium, serum 139 mmol/L 729-991 6081/05/01 carbon dioxide, venous blood 25.2 mmol/L 21.0-32.0 potassium, serum 4.1 mmol/L 3.5-5.2 chloride, serum 104 mmol/L 98-107 blood glucose 64 mg/dL 65-95 urea nitrogen, blood 16 mg/dL 7-18 creatinine, serum 1.55 mg/dL 0.60-1.30 alanine aminotransferase (SGPT), serum 80 U/L -78 aspartate aminotransferase (SGOT), serum 53 U/L 15-37 [...] % 11.6-14.8 platelet count 103 10^3/MM^3 10*3/mm3 350-410 1223/05/01 leukocyte count, blood 5.0 10^3/MM^3 10*3/mm3 4.6-10.2 [...] mean corpuscular hemoglobin, RBC 32.8 pg 27.0-31.2 leukocyte count, blood 4.8 10^3/MM^3 10*3/mm3 4.6-10.2 [...] % 11.6-14.8 platelet count 200 10^3/MM^3 10*3/mm3 431-493 8076/05/15 leukocyte count, blood 1.7 10^3/MM^3 10*3/mm3 4.6-10.2 [...] % 11.6-14.8 platelet count 36 10^3/MM^3 10*3/mm3 165-347 6168/05/01 mean corpuscular hemoglobin concentration, RBC 33.1 G/DL % 31.8- 35.4 red blood cell distribution width 13.9 % 11.6-14.8 platelet count 271 10^3/MM^3 10*3/mm3 072-348 9961/06/05 leukocyte count, blood 2.7 10^3/MM^3 10*3/mm3 4.6-10.2 neutrophils as percent of blood leukocytes 47.6 % 42.2-75.2 monocytes as percent of blood leukocytes 23.9 % 1.7-9.3 lymphocytes as percent of blood leukocytes 26.2 % 20.5-51.1 erythrocyte (RBC) count 4.79 10^6/MM^3 10*6/mm3 4.50-6.50 hemoglobin, blood 15.8 g/dL 14.0-18.0 hematocrit, blood 47.4 % 40.0-54.0 mean corpuscular volume, RBC 99 fL 80-97 mean corpuscular hemoglobin, RBC 32.9 pg 27.0-31.2 mean corpuscular hemoglobin concentration, RBC 33.3 G/DL % 31.8- 35.4 red blood cell distribution width 12.9 % 11.6-14.8 platelet count 84 10^3/MM^3 10*3/mm3 142-424 Lab Report: Comp. Metabolic Panel - Chemistry sodium, serum 134 mmol/L 498-955 1046/06/12 carbon dioxide, venous blood 21.9 mmol/L 21.0-32.0 potassium, serum 4.4 mmol/L 3.5-5.2 chloride, serum 97 mmol/L 98-107 blood glucose 191 mg/dL 65-95 urea nitrogen, blood 23 mg/dL 7-18 creatinine, serum 1.68 mg/dL 0.60-1.30 alanine aminotransferase (SGPT), serum 64 U/L 12-78 aspartate aminotransferase (SGOT), serum 35 U/L 15-37 calcium, serum 8.9 mg/dL 8.5-10.1 bilirubin, serum, total 0.70 mg/dL 0.00-1.00 sodium, serum 136 mmol/L 678-308 0734/05/29 carbon dioxide, venous blood 22.4 mmol/L 21.0-32.0 potassium, serum 4.0 mmol/L 3.5-5.2 chloride, serum 104 mmol/L 98-107 blood glucose 128 mg/dL 65-95 urea nitrogen, blood 20 mg/dL 7-18 creatinine, serum 1.47 mg/dL 0.60-1.30 alanine aminotransferase (SGPT), serum 80 U/L 12-78 aspartate aminotransferase (SGOT), serum 38 U/L 15- calcium, serum 9.1 mg/dL 8.5-10.1 bilirubin, serum, total 0.40 mg/dL 0.00-1.00 sodium, serum 134 mmol/L 538-870 6837/05/22 carbon dioxide, venous blood 25.2 mmol/L 21.0-32.0 potassium, serum 5.0 mmol/L 3.5-5.2 chloride, serum 100 mmol/L 98-107 blood glucose 278 mg/dL 65-95 urea nitrogen, blood 19 mg/dL 7-18 creatinine, serum 1.49 mg/dL 0.60-1.30 alanine aminotransferase (SGPT), serum 93 U/L -78 aspartate aminotransferase (SGOT), serum 58 U/L 15- calcium, serum 9.1 mg/dL 8.5-10.1 bilirubin, serum, total 0.20 mg/dL 0.00-1.00 Lab Report: Comp. Metabolic Panel, CBC W/DIFF - Chemistry sodium, serum 137 mmol/L 069-508 4629/08/16 carbon dioxide, venous blood 26.3 mmol/L 21.0-32.0 [...] LABS - Chemistry cholesterol, serum 115 mg/dL 695-830 3850/08/18 blood glucose 104 mg/dL 65-110 LDL cholesterol, serum 51 mg/dL 0-130 HDL cholesterol, serum 46 mg/dL 32-60 triglyceride, serum, fasting 89 mg/dL 30-200 Lab Report: SADA INFLUENZA A/B - Toxicology [...] mg/dL Encounters Code Encounter Date Provider Facility CPT-37733 Level 3 Est. Patient 14:09:25 DIRECTOR SUPPLY CHAIN Dee Palmer APRN [facility] CPT-56641 Level 3 Est. Patient 10:53:32 [facility] CPT-33673 Level 3 Est. Patient 17:11:55 DIRECTOR SUPPLY CHAIN Ismael Gracia MD [facility] CPT-46032 Level 4 Est. Patient 16:29:19 CDT Mekhi Dukes MD [facility] CPT-64316 Level 3 New Patient 17:05:24 CDT Ismael Gracia MD [facility] CPT-81257 Level 2 Est. Patient 15:43:17 CDT Mekhi Dukes MD [facility] CPT-77873 Level 3 Est. [facility] 09:30:37 [facility] CPT-60470 Level 3 Est. Patient 10:00:14 CDT Mekhi Dukes MD [facility] CPT-96603 Level 3 Est. Patient 12:24:09 CDT Moy Garcia [facility]-34501 Level 3 Est. Patient 14:34:57 CDT Prosper Arenas MD [facility] CPT-00263 Level 3 New Patient 15:44:53 DIRECTOR SUPPLY CHAIN Mekhi Dukes MD [facility]-88952 Level 3 Est. Patient 14:53:34 DIRECTOR SUPPLY CHAIN Prosper Arenas MD [facility] CPT-23017 Level 4 Est. Patient 10:05:41 DIRECTOR SUPPLY CHAIN Moy Rodrigokymrex [facility]-14145 Level 3 Est. Patient 11:18:32 [facility] Level 4 Est. Patient 11:05:10 CDT Moy Garcia [facility] CPT-20148 Level 3 Est. Patient 11:08:27 DIRECTOR SUPPLY CHAIN Moy Garcia [facility] CPT-57259 Level 4 Est. Patient 10:43:59 CDT Prosper Arenas MD [facility] CPT-62363 Level 3 Est. Patient 10:51:19 CDT Moy Garcia [facility] CPT-58196 Level 3 Est. Patient 10:20:31 CDT Moy Garcia [facility] CPT-24698 Level 3 Est. Patient 17:08:45 CDT Moy Garcia [facility] CPT-06865 Level 2 Est. Patient 13:54:36 CDT Augustina Mata APRN [facility] CPT-80100 Level 3 Est. Patient 12:00:42 CDT Prosper Arenas MD [facility] CPT-50242 Level 3 Est. Patient 09:57:28 DIRECTOR SUPPLY CHAIN Luxshoaib Wallacerex [facility] CPT-61261 Level 3 Est. Patient 11:41:19 DIRECTOR SUPPLY CHAIN [facility] Level 4 Est. Patient 17:07:35 DIRECTOR SUPPLY CHAIN [facility] CPT-22772 Level 5 Est. Patient 14:33:32 CDT Luxshoaib Wallacerex [facility] CPT-17367 Level 3 Est. Patient 12:25:35 CDT Prosper Arenas MD [facility] Procedures Code Procedure Name Date Entry Date Standard Description CPT-52482 Chest, 2 views 14:17:20 DIRECTOR SUPPLY CHAIN CPT-59268 Postop F/U Visit 14:44:45 DIRECTOR SUPPLY CHAIN CPT-42581 Postop F/U Visit 17:20:20 DIRECTOR SUPPLY CHAIN CPT-G0439 Subsequent Annual Wellness Exam 08:39:41 DIRECTOR SUPPLY CHAIN CPT-000 Give Appropriate Flu Vaccine 10:13:55 DIRECTOR SUPPLY CHAIN CPT-000 Give Immunizations Due 10:13:55 DIRECTOR SUPPLY CHAIN CPT-16990 HGBA1C - LAB USE ONLY 09:42:47 DIRECTOR SUPPLY CHAIN CPT-05054 TPSA - LAB USE ONLY 09:42:46 DIRECTOR SUPPLY CHAIN CPT-87916 Venipuncture Draw Fee 09:42:46 DIRECTOR SUPPLY CHAIN CPT-74487 Port a cath flush 13:33:18 DIRECTOR SUPPLY CHAIN CPT-32365 First Vx - Ix admin for Medicare patients 10:42:57 DIRECTOR SUPPLY CHAIN CPT-78242 Fluzone Preservative Free Intramuscular Suspension 10:42 :57 DIRECTOR SUPPLY CHAIN CPT-G0438 Initial Annual Wellness Exam 10:13:55 DIRECTOR SUPPLY CHAIN CPT-000 Give Appropriate Flu Vaccine 10:44:04 CDT CPT-000 Give Pneumovax 10:44:03 CDT CPT-79757 Port a cath flush 17:04:43 CDT CPT-41167 Prevnar 13 11:19:17 CDT CPT-54612 Fluzone Quadrivalent preservative free (>=3yrs.) 11:19: 17 CDT CPT-77668 Immunization Each Additional Inj 11:19:17 CDT CPT-69946 Immunization Single Admin 11:19:17 CDT CPT-85360 Port a cath flush 13:28:22 CDT CPT-TCMM Transitional Care Mgmt-Moderate 13:40:15 CDT CPT-G0008 Administration of Influenza Virus Vaccine 13:59:20 CDT CPT-64025 Fluzone High-Dose Intramuscular Suspension 13:59:20 CDT CPT-49065 Venipuncture Draw Fee 09:56:19 CDT CPT-OV Office Visit 15:46:10 CDT
[2017-09-13] MEDS: inSUlin ASPART (NovoLOG) 1 UNIT/0.01 ML (CHARGE PER UNIT) SC SCH ×3 (12:49→20:09)
--- OUTSIDE RECORDS SUMMARY | 2017-09-13 12:50 | XMS REPORT | Clinical Summary ---
Author Author Admin, Kaylynn Organization [facility] [email or web address] Address Unknown Phone Unavailable Allergies, Adverse Reactions, Alerts Allergy Name Reaction Description Start Date Severity Status Provider ERYTHROMYCIN Stomach cramps Moderate Active Prosper Arenas MD CODEINE Critical Active Maliheh Ziglari CHILI MAKER DARVOCET Critical Active Maliheh Ziglari CHILI MAKER LEVAQUIN Critical Active Maliheh Ziglari CHILI MAKER Conditions or Problems Problem Name Problem Code Onset Date Status Entry Date Provider Comment Standard Description Annotate Diabetes, Type 2 250.00 Resolved Tami Miller simulation technician mellitus without mention of complication, type [...] type II, uncontrolled 250.02 Active Maliheh Rodrigoglari CHILI MAKER Diabetes mellitus without mention of complication, type [...] with hyperglycemia 250.00 Active 03/21 Maliheh Ziglari CHILI MAKER Diabetes mellitus without mention of complication, type II or unspecified type, not stated as uncontrolled care home use of insulin treatment V58.67 Active Luxiheh Rodrigoglari CHILI MAKER Long-term (current) use of insulin Diabetes mellitus, type II with hypoglycemia 250.80 Active 07/22 Maliheh Ziglari CHILI MAKER Diabetes mellitus with other specified manifestations, type II or unspecified type, not stated as uncontrolled 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 Maliheh Ziglari CHILI MAKER Diabetes mellitus with renal manifestations, type II or unspecified type, not stated as uncontrolled Wellness exam V70.0 Active Dee Palmer APRN Routine general medical examination at a health care facility Fitting and adjustment of vascular catheter V58.81 Active 02/06 Dee Palmer APRN Encounter for fitting and adjustment of vascular catheter Unawareness of hypoglycemia in diabetes mellitus, type II 250.80 Active Maliheh Rodrigoglari CHILI MAKER Diabetes mellitus with other specified manifestations, type [...] specified as recurrent) Gastritis Inactive Maliheh Rodrigoglrex CHILI MAKER Unspecified gastritis and gastroduodenitis, without mention of [...] po qd x 4 days 05/07 AZITHROMYCIN 00619899102 No Longer Active Dee Palmer APRN Active GUAIFENESIN DM 400-20 MG ORAL TABLET 1 pill by mouth twice daily, if needed for cough DEXTROMETHORPHAN-GUAIFENESIN 43183610590 Active Dee Palmer APRN Active PREDNISONE 20 MG ORAL TABLET 2 tabs daily for 4 days, 1 tab daily for 4 days, 1/2 tab daily for 4 days PREDNISONE 03540644543 Active Dee Palmer APRN Active ASPIRIN 81 MG ORAL TABLET 1 po qd ASPIRIN 82040430098 Active Ryanllvito Barkleyl [employer] Active CALCIUM 500/D 500-200 MG-UNIT ORAL TABLET one tablet daily CALCIUM CARBONATE-VITAMIN D 62647419547 No Longer Active Jillvito Barkleyngoc [employer] Active HYDROCODONE-ACETAMINOPHEN 7.5-325 MG ORAL TABLET 1-2 every 4-6 hrs prn 02/25 HYDROCODONE-ACETAMINOPHEN 20669256853 Active Marina Messina [employer] Active ASPIRIN 81 MG ORAL TABLET 1 tablet by mouth daily ASPIRIN 19080843704 No Longer Active aMrina Messina [employer] Active SIMVASTATIN 80 MG ORAL TABLET 1/2 tablet daily SIMVASTATIN 39444274750 No Longer Active Mekhi Dukes MD Active OMEPRAZOLE 20 MG ORAL CAPSULE DELAYED RELEASE 1 qd OMEPRAZOLE 48623664544 No Longer Active Mekhi Dukes MD Active METOPROLOL TARTRATE 25 MG ORAL TABLET 1/2 tablet twice a day METOPROLOL TARTRATE 92366807421 No Longer Active Mekhi Dukes MD Active LISINOPRIL 5 MG ORAL TABLET 1 daily LISINOPRIL 37057724048 No Longer Active Mekhi Dukes MD Active NOVOLOG FLEXPEN 100 UNIT/ML SUBCUTANEOUS SOLUTION PEN-INJECTOR Take 8 units with each meal, add 1u/50 for blood sugars above 150. INSULIN ASPART 59908144680 Active Moy PARISH Active GABAPENTIN 300 MG ORAL CAPSULE 1 tab BID GABAPENTIN 68147960067 Active Tami Miller RN Active PREDNISONE 20 MG ORAL TABLET Take 2 daily for 3 days and then 1 daily for 3 days PREDNISONE 02481232136 No Longer Active Moy [place] Active BENZONATATE 200 MG ORAL CAPSULE Take 1 tablet 3 times a day as needed for cough BENZONATATE 91010892772 No Longer Active Prosper Arenas MD Active HYDROCHLOROTHIAZIDE 25 MG ORAL TABLET 1 tablet by mouth daily HYDROCHLOROTHIAZIDE 47614212690 No Longer Active Prosper Arenas MD Active ACCU-CHEK JOANNA PLUS IN VITRO STRIP check blood sugars 5x a day, before each meal and bedtime and 15 minutes after treating a low blood. sugar GLUCOSE BLOOD 45985594846 Active Moy Wallaceglrex PARISH Active LANTUS SOLOSTAR 100 UNIT/ML SUBCUTANEOUS SOLUTION PEN-INJECTOR Take 40 units at 7-8pm daily INSULIN GLARGINE 06179000515 Active Maliheh Ziglari CHILI MAKER Active MECLIZINE HCL 25 MG ORAL TABLET 1 daily needed for dizziness 2015 MECLIZINE HCL 07569098027 No Longer Active Maliheh Ziglari CHILI MAKER Active BENZONATATE 200 MG ORAL CAPSULE 1 tab, 2-3 times a day BENZONATATE 89034579614 No Longer Active Maliheh Ziglari CHILI MAKER Active HALOPERIDOL 0.5 MG ORAL TABLET one tablet three times a day HALOPERIDOL 56522490250 No Longer Active Maliheh Ziglari CHILI MAKER Active TRAZODONE HCL 50 MG ORAL TABLET three tablets at bed time TRAZODONE HCL 69762862589 No Longer Active Maleh Ziglari CHILI MAKER Active REVLIMID 25 MG ORAL CAPSULE one capsule daily for 21 days then off for 7 days LENALIDOMIDE 59128640399 No Longer Active Maleh Ziglari CHILI MAKER Active ZITHROMAX Z-EDDIE 250 MG ORAL TABLET 2 today, then 1 daily for 4 days AZITHROMYCIN 49016740500 No Longer Active Augustina Mata APRN Active NOVOLIN R RELION 100 UNIT/ML INJECTION SOLUTION 30- 40 units each meal sliding scale INSULIN REGULAR HUMAN 52619855212 No Longer Active Maleh Ziglari CHILI MAKER Active HYDROCODONE-ACETAMINOPHEN 5-500 MG ORAL TABLET 1-2 FOUR TIMES A DAY, PRN 2010 HYDROCODONE-ACETAMINOPHEN 70237019536 No Longer Active Prosper Arenas MD Active DOXYCYCLINE HYCLATE 100 MG ORAL CAPSULE take one capsule by mouth twice daily for ten days DOXYCYCLINE HYCLATE 52527742891 No Longer Active Mekhi Dukes MD Active DOXYCYCLINE HYCLATE 100 MG ORAL CAPSULE take one capsule by mouth twice daily for ten days DOXYCYCLINE HYCLATE 100 MG ORAL CAPSULE 7120722 DOXYCYCLINE HYCLATE Inactive HYDROCODONE-ACETAMINOPHEN 5-500 MG ORAL TABLET 1-2 FOUR TIMES A DAY, PRN 2010 HYDROCODONE-ACETAMINOPHEN 5-500 MG ORAL TABLET 913593 HYDROCODONE-ACETAMINOPHEN Inactive NOVOLIN R RELION 100 UNIT/ML INJECTION SOLUTION 30- 40 units each meal sliding scale NOVOLIN R RELION 100 UNIT/ML INJECTION SOLUTION INSULIN REGULAR HUMAN Inactive ZITHROMAX Z-EDDIE 250 MG ORAL TABLET 2 today, then 1 daily for 4 days ZITHROMAX Z-EDDIE 250 MG ORAL TABLET 888720 AZITHROMYCIN Inactive REVLIMID 25 MG ORAL CAPSULE one capsule daily for 21 days then off for 7 days REVLIMID 25 MG ORAL CAPSULE LENALIDOMIDE Inactive TRAZODONE HCL 50 MG ORAL TABLET three tablets at bed time TRAZODONE HCL 50 MG ORAL TABLET 914968 TRAZODONE HCL Inactive HALOPERIDOL 0.5 MG ORAL TABLET one tablet three times a day HALOPERIDOL 0.5 MG ORAL TABLET 071699 HALOPERIDOL Inactive BENZONATATE 200 MG ORAL CAPSULE 1 tab, 2-3 times a day BENZONATATE 200 MG ORAL CAPSULE 632654 BENZONATATE Inactive MECLIZINE HCL 25 MG ORAL TABLET 1 daily needed for dizziness 2015 MECLIZINE HCL 25 MG ORAL TABLET 336349 MECLIZINE HCL Inactive HYDROCHLOROTHIAZIDE 25 MG ORAL TABLET 1 tablet by mouth daily HYDROCHLOROTHIAZIDE 25 MG ORAL TABLET 587592 HYDROCHLOROTHIAZIDE Inactive PREDNISONE 20 MG ORAL TABLET Take 2 daily for 3 days and then 1 daily for 3 days PREDNISONE 20 MG ORAL TABLET 326232 PREDNISONE Inactive LISINOPRIL 5 MG ORAL TABLET 1 daily LISINOPRIL 5 MG ORAL TABLET 129968 LISINOPRIL Inactive METOPROLOL TARTRATE 25 MG ORAL TABLET 1/2 tablet twice a day METOPROLOL TARTRATE 25 MG ORAL TABLET 323176 METOPROLOL TARTRATE Inactive OMEPRAZOLE 20 MG ORAL CAPSULE DELAYED RELEASE 1 qd OMEPRAZOLE 20 MG ORAL CAPSULE DELAYED RELEASE 902653 OMEPRAZOLE Inactive SIMVASTATIN 80 MG ORAL TABLET 1/2 tablet daily SIMVASTATIN 80 MG ORAL TABLET 802870 SIMVASTATIN Inactive ASPIRIN 81 MG ORAL TABLET 1 tablet by mouth daily ASPIRIN 81 MG ORAL TABLET 205217 ASPIRIN Inactive CALCIUM 500/D 500-200 MG-UNIT ORAL TABLET one tablet daily CALCIUM 500/D 500-200 MG-UNIT ORAL TABLET CALCIUM CARBONATE-VITAMIN D Inactive BENZONATATE 200 MG ORAL CAPSULE Take 1 tablet 3 times a day as needed for cough BENZONATATE 200 MG ORAL CAPSULE 108608 BENZONATATE Inactive AZITHROMYCIN 250 MG ORAL TABLET 2 po qd x 1 day, then 1 po qd x 4 days 05/07 AZITHROMYCIN 250 MG ORAL TABLET 226048 AZITHROMYCIN Inactive Immunizations Vaccine Administration Date Value [...] % 11.6-14.8 platelet count 294 10^3/MM^3 10*3/mm3 840-288 8796/05/29 leukocyte count, blood 2.4 10^3/MM^3 10*3/mm3 4.6-10.2 [...] Panel - Chemistry sodium, serum 139 mmol/L 073-086 4553/05/01 carbon dioxide, venous blood 25.2 mmol/L 21.0-32.0 potassium, serum 4.1 mmol/L 3.5-5.2 chloride, serum 104 mmol/L 98-107 blood glucose 64 mg/dL 65-95 urea nitrogen, blood 16 mg/dL 7-18 creatinine, serum 1.55 mg/dL 0.60-1.30 alanine aminotransferase (SGPT), serum 80 U/L - aspartate aminotransferase (SGOT), serum 53 U/L 15-37 calcium, serum 8.1 mg/dL 8.5-10.1 bilirubin, serum, total 0.40 mg/dL 0.00-1.00 sodium, serum 135 mmol/L 428-464 4480/05/08 carbon dioxide, venous blood 29.0 mmol/L 21.0-32.0 potassium, serum 4.8 mmol/L 3.5-5.2 chloride, serum 101 mmol/L 98-107 blood glucose 165 mg/dL 65-95 urea nitrogen, blood 19 mg/dL 7-18 creatinine, serum 1.51 mg/dL 0.60-1.30 alanine aminotransferase (SGPT), serum 65 U/L - aspartate aminotransferase (SGOT), serum 38 U/L 15-37 calcium, serum 8.2 mg/dL 8.5-10.1 bilirubin, serum, total 0.50 mg/dL 0.00-1.00 sodium, serum 135 mmol/L 408-508 9916/04/10 carbon dioxide, venous blood 26.1 mmol/L 21.0-32.0 potassium, serum 4.2 mmol/L 3.5-5.2 chloride, serum 100 mmol/L 98-107 blood glucose 293 mg/dL 65-110 urea nitrogen, blood 18 mg/dL 7-18 creatinine, serum 2.06 mg/dL 0.60-1.30 alanine aminotransferase (SGPT), serum 59 U/L 12-78 aspartate aminotransferase (SGOT), serum 47 U/L 15-37 calcium, serum 8.6 mg/dL 8.5-10.1 bilirubin, serum, total 0.30 mg/dL 0.00-1.00 sodium, serum 134 mmol/L 157-358 0128/05/15 carbon dioxide, venous blood 23.5 mmol/L 21.0-32.0 potassium, serum 4.8 mmol/L 3.5-5.2 chloride, serum 101 mmol/L 98-107 blood glucose 139 mg/dL 65- urea nitrogen, blood 19 mg/dL 7-18 creatinine, serum 1.79 mg/dL 0.60-1.30 alanine aminotransferase (SGPT), serum 140 U/L -78 aspartate aminotransferase (SGOT), serum 104 U/L 15-37 calcium, serum 8.5 mg/dL 8.5-10.1 bilirubin, serum, total 0.40 mg/dL 0.00-1.00 sodium, serum 137 mmol/L 989-239 9321/06/05 carbon dioxide, venous blood 26.0 mmol/L 21.0-32.0 potassium, serum 4.5 mmol/L 3.5-5.2 chloride, serum 100 mmol/L 98-107 blood glucose 100 mg/dL 65-95 urea nitrogen, blood 16 mg/dL 7-18 creatinine, serum 1.67 mg/dL 0.60-1.30 alanine aminotransferase (SGPT), serum 75 U/L 12-78 aspartate aminotransferase (SGOT), serum 46 U/L 15-37 calcium, serum 9.8 mg/dL 8.5-10.1 bilirubin, serum, total 0.40 mg/dL 0.00-1.00 Lab Report: CBC W/DIFF, Comp. Metabolic Panel - Hematology leukocyte count, blood 2.7 10^3/MM^3 10*3/mm3 4.6-10.2 [...] % 11.6-14.8 platelet count 84 10^3/MM^3 10*3/mm3 597-477 8001/05/01 leukocyte count, blood 5.0 10^3/MM^3 10*3/mm3 4.6-10.2 [...] % 11.6-14.8 platelet count 271 10^3/MM^3 10*3/mm3 955-752 6720/04/10 leukocyte count, blood 4.8 10^3/MM^3 10*3/mm3 4.6-10.2 [...] % 11.6-14.8 platelet count 200 10^3/MM^3 10*3/mm3 773-290 3336/05/15 leukocyte count, blood 1.7 10^3/MM^3 10*3/mm3 4.6-10.2 [...] % 11.6-14.8 platelet count 36 10^3/MM^3 10*3/mm3 248-411 7677/05/08 leukocyte count, blood 1.8 10^3/MM^3 10*3/mm3 4.6-10.2 [...] Panel - Chemistry sodium, serum 136 mmol/L 057-032 2707/05/29 carbon dioxide, venous blood 22.4 mmol/L 21.0-32.0 potassium, serum 4.0 mmol/L 3.5-5.2 chloride, serum 104 mmol/L 98-107 blood glucose 128 mg/dL 65-95 urea nitrogen, blood 20 mg/dL 7-18 creatinine, serum 1.47 mg/dL 0.60-1.30 alanine aminotransferase (SGPT), serum 80 U/L - aspartate aminotransferase (SGOT), serum 38 U/L 15-37 calcium, serum 9.1 mg/dL 8.5-10.1 bilirubin, serum, total 0.40 mg/dL 0.00-1.00 sodium, serum 134 mmol/L 257-149 7646/05/22 carbon dioxide, venous blood 25.2 mmol/L 21.0-32.0 [...] W/DIFF - Chemistry sodium, serum 137 mmol/L 966-481 1605/08/16 carbon dioxide, venous blood 26.3 mmol/L 21.0-32.0 [...] LABS - Chemistry cholesterol, serum 115 mg/dL 902-072 5709/08/18 triglyceride, serum, fasting 89 mg/dL 30-200 HDL [...] mg/dL Encounters Code Encounter Date Provider Facility CPT-26821 Level 3 Est. Patient 14:09:25 DEVELOPMENT MANAGER Dee Palmer APRN [facility] CPT-93519 Level 3 Est. Patient 10:53:32 DEVELOPMENT MANAGER Moy Garcia [facility] CPT-45383 Level 3 Est. Patient 17:11:55 DEVELOPMENT MANAGER Ismael Gracia MD [facility] CPT-15767 Level 4 Est. Patient 16:29:19 CDT Mekhi Dukes MD [facility] CPT-56796 Level 3 New Patient 17:05:24 CDT Ismael Gracia MD [facility] CPT-90029 Level 2 Est. Patient 15:43:17 CDT Mekhi Dukes MD [facility] CPT-92368 Level 3 Est. [facility] 09[facility]30:[facility] CPT-09909 Level 3 Est. Patient 10:00:14 CDT Mekhi Dukes MD [facility] CPT-93624 Level 3 Est. Patient 12:24:09 CDT Moy Garcia [facility]-69895 Level 3 Est. Patient 14:34:57 CDT Prosper Arenas MD [facility] CPT-52299 Level 3 New Patient 15:44:53 DEVELOPMENT MANAGER Mekhi Dukes MD [facility]-44868 Level 3 Est. Patient 14:53:34 DEVELOPMENT MANAGER Prosper Arenas MD [facility]-68279 Level 4 Est. Patient 10:05:41 DEVELOPMENT MANAGER Moy Bradshawrex [facility]-53965 Level 3 Est. Patient 11:18:32 CDT Moy Garcia [facility]-50426 Level 4 Est. Patient 11:05:10 CDT Moy Garcia [facility] CPT-99511 Level 3 Est. Patient 11:08:27 DEVELOPMENT MANAGER Moy Garcia [facility] CPT-78408 Level 4 Est. Patient 10:43:59 CDT Prosper Arenas MD [facility] CPT-64489 Level 3 Est. Patient 10:51:19 CDT Moy Garcia [facility] CPT-04612 Level 3 Est. Patient 10:20:31 CDT Moy Garcia [facility] CPT-82312 Level 3 Est. Patient 17:08:45 CDT Moy Garcia [facility] CPT-85561 Level 2 Est. Patient 13:54:36 CDT Augustina Mata APRN [facility] CPT-05555 Level 3 Est. Patient 12:00:42 CDT Prosper Arenas MD [facility] CPT-17980 Level 3 Est. Patient 09:57:28 DEVELOPMENT MANAGER Moy Garcia [facility] CPT-79253 Level 3 Est. Patient 11:41:19 DEVELOPMENT MANAGER Moy Garcia [facility] CPT-63225 Level 4 Est. Patient 17:07:35 DEVELOPMENT MANAGER Moy Wallacerex [facility] CPT-12704 Level 5 Est. Patient 14:33:32 CDT Moy Wallacerex [facility] CPT-71824 Level 3 Est. Patient 12:25:35 CDT Prosper Arenas MD [facility] Procedures Code Procedure Name Date Entry Date Standard Description CPT-32549 Chest, 2 views 14:17:20 DEVELOPMENT MANAGER CPT-06936 Postop F/U Visit 14:44:45 DEVELOPMENT MANAGER CPT-06652 Postop F/U Visit 17:20:20 DEVELOPMENT MANAGER CPT-G0439 [facility] Annual Wellness Exam 08:39:41 DEVELOPMENT MANAGER CPT-000 Give Appropriate Flu Vaccine 10:13:55 DEVELOPMENT MANAGER CPT-000 Give Immunizations Due 10:13:55 DEVELOPMENT MANAGER CPT-71047 HGBA1C - LAB USE ONLY 09:42:47 DEVELOPMENT MANAGER CPT-61617 TPSA - LAB USE ONLY 09:42:46 DEVELOPMENT MANAGER CPT-47512 Venipuncture Draw Fee 09:42:46 DEVELOPMENT MANAGER CPT-37841 Port a cath flush 13:33:18 DEVELOPMENT MANAGER CPT-74420 First Vx - Ix admin for Medicare patients 10:42:57 DEVELOPMENT MANAGER CPT-05606 Fluzone Preservative Free Intramuscular Suspension 10:42 :57 DEVELOPMENT MANAGER CPT-G0438 Initial Annual Wellness Exam 10:13:55 DEVELOPMENT MANAGER CPT-000 Give Appropriate Flu Vaccine 10:44:04 CDT CPT-000 Give Pneumovax 10:44:03 CDT CPT-27597 Port a cath flush 17:04:43 CDT CPT-26876 Prevnar 13 11:19:17 CDT CPT-89265 Fluzone Quadrivalent preservative free (>=3yrs.) 11:19: 17 CDT CPT-78683 Immunization Each Additional Inj 11:19:17 CDT CPT-06236 Immunization Single Admin 11:19:17 CDT CPT-88080 Port a cath flush 13:28:22 CDT CPT-TCMM Transitional Care Mgmt-Moderate 13:40:15 CDT CPT-G0008 Administration of Influenza Virus Vaccine 13:59:20 CDT CPT-71189 Fluzone High-Dose Intramuscular Suspension 13:59:20 CDT CPT-97256 Venipuncture Draw Fee 09:56:19 CDT CPT-OV Office Visit 15:46:10 CDT
--- OUTSIDE RECORDS SUMMARY | 2017-09-13 13:08 | XMS REPORT | Clinical Summary ---
Author Author Admin, Kaylynn Organization [facility] [employer] Address Unknown Phone Unavailable Allergies, Adverse Reactions, Alerts Allergy Name Reaction Description Start Date Severity Status Provider ERYTHROMYCIN Stomach cramps Moderate Active Prosper Arenas MD CODEINE Critical Active Maliheh Ziglari BAKING FACTORY WORKER DARVOCET Critical Active Maliheh Ziglari BAKING FACTORY WORKER LEVAQUIN Critical Active Maliheh Ziglari BAKING FACTORY WORKER Conditions or Problems Problem Name Problem Code Onset Date Status Entry Date Provider Comment Standard Description Annotate Diabetes, Type 2 250.00 Resolved Tami Miller team member mellitus without mention of complication, type II [...] type II, uncontrolled 250.02 Active Maliheh Rodrigoglari BAKING FACTORY WORKER Diabetes mellitus without mention of complication, [...] with hyperglycemia 250.00 Active 03/21 Maliheh Ziglari BAKING FACTORY WORKER Diabetes mellitus without mention of complication, type II or unspecified type, not stated as uncontrolled [facility] use of insulin treatment V58.67 Active Luxiheh Rodrigoglari BAKING FACTORY WORKER Long-term (current) use of insulin Diabetes mellitus, type II with hypoglycemia 250.80 Active 07/22 Maliheh Ziglari BAKING FACTORY WORKER Diabetes mellitus with other specified manifestations, type II or unspecified type, not stated as uncontrolled 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 Maliheh Ziglari BAKING FACTORY WORKER Diabetes mellitus with renal manifestations, type II or unspecified type, not stated as uncontrolled Wellness exam V70.0 Active Dee Palmer APRN Routine general medical examination at a health care facility Fitting and adjustment of vascular catheter V58.81 Active 02/06 Dee Palmer APRN Encounter for fitting and adjustment of vascular catheter Unawareness of hypoglycemia in diabetes mellitus, type II 250.80 Active Maliheh Rodrigoglari BAKING FACTORY WORKER Diabetes mellitus with other specified manifestations, [...] specified as recurrent) Gastritis Inactive Maliheh Rodrigoglrex BAKING FACTORY WORKER Unspecified gastritis and gastroduodenitis, without mention of [...] po qd x 4 days 05/07 AZITHROMYCIN [id number] No Longer Active Dee Palmer APRN Active GUAIFENESIN DM 400-20 MG ORAL TABLET 1 pill by mouth twice daily, if needed for cough DEXTROMETHORPHAN-GUAIFENESIN 44074206474 Active Dee Palmer APRN Active PREDNISONE 20 MG ORAL TABLET 2 tabs daily for 4 days, 1 tab daily for 4 days, 1/2 tab daily for 4 days PREDNISONE 63446597148 Active Dee Palmer APRN Active ASPIRIN 81 MG ORAL TABLET 1 po qd ASPIRIN 62367569400 Active Ryanllvito Barkleyl PEST CONTROL SUPERVISOR Active CALCIUM 500/D 500-200 MG-UNIT ORAL TABLET one tablet daily CALCIUM CARBONATE-VITAMIN D 56591190426 No Longer Active Jillvito Barkleyngoc PEST CONTROL SUPERVISOR Active HYDROCODONE-ACETAMINOPHEN 7.5-325 MG ORAL TABLET 1-2 every 4-6 hrs prn 02/25 HYDROCODONE-ACETAMINOPHEN 82483804228 Active Marina Messina PEST CONTROL SUPERVISOR Active ASPIRIN 81 MG ORAL TABLET 1 tablet by mouth daily ASPIRIN 95805978374 No Longer Active Marina Messina PEST CONTROL SUPERVISOR Active SIMVASTATIN 80 MG ORAL TABLET 1/2 tablet daily SIMVASTATIN 65285249193 No Longer Active Mekhi Dukes MD Active OMEPRAZOLE 20 MG ORAL CAPSULE DELAYED RELEASE 1 qd OMEPRAZOLE 89042252781 No Longer Active Mekhi Dukes MD Active METOPROLOL TARTRATE 25 MG ORAL TABLET 1/2 tablet twice a day METOPROLOL TARTRATE 93417363770 No Longer Active Mekhi Dukes MD Active LISINOPRIL 5 MG ORAL TABLET 1 daily LISINOPRIL 23395317620 No Longer Active Mekhi Dukes MD Active NOVOLOG FLEXPEN 100 UNIT/ML SUBCUTANEOUS SOLUTION PEN-INJECTOR Take 8 units with each meal, add 1u/50 for blood sugars above 150. INSULIN ASPART 73795153925 Active Moy PARISH Active GABAPENTIN 300 MG ORAL CAPSULE 1 tab BID GABAPENTIN 82268515471 Active Tami Miller RN Active PREDNISONE 20 MG ORAL TABLET Take 2 daily for 3 days and then 1 daily for 3 days PREDNISONE 94855617567 No Longer Active Moy PARISH Active BENZONATATE 200 MG ORAL CAPSULE Take 1 tablet 3 times a day as needed for cough BENZONATATE 54652625444 No Longer Active Prosper Arenas MD Active HYDROCHLOROTHIAZIDE 25 MG ORAL TABLET 1 tablet by mouth daily HYDROCHLOROTHIAZIDE 39996261661 No Longer Active Prosper Arenas MD Active ACCU-CHEK JOANNA PLUS IN VITRO STRIP check blood sugars 5x a day, before each meal and bedtime and 15 minutes after treating a low blood. sugar GLUCOSE BLOOD 13825532563 Active Moy Wallaceglrex PARISH Active LANTUS SOLOSTAR 100 UNIT/ML SUBCUTANEOUS SOLUTION PEN-INJECTOR Take 40 units at 7-8pm daily INSULIN GLARGINE 48839562102 Active Maliheh Ziglari BAKING FACTORY WORKER Active MECLIZINE HCL 25 MG ORAL TABLET 1 daily needed for dizziness 2015 MECLIZINE HCL 10603593674 No Longer Active Maliheh Ziglari BAKING FACTORY WORKER Active BENZONATATE 200 MG ORAL CAPSULE 1 tab, 2-3 times a day BENZONATATE 03872578690 No Longer Active Maliheh Ziglari BAKING FACTORY WORKER Active HALOPERIDOL 0.5 MG ORAL TABLET one tablet three times a day HALOPERIDOL 14869285904 No Longer Active Maliheh Ziglari BAKING FACTORY WORKER Active TRAZODONE HCL 50 MG ORAL TABLET three tablets at bed time TRAZODONE HCL 11329461244 No Longer Active Maleh Ziglari BAKING FACTORY WORKER Active REVLIMID 25 MG ORAL CAPSULE one capsule daily for 21 days then off for 7 days LENALIDOMIDE 95068196173 No Longer Active Maleh Ziglari BAKING FACTORY WORKER Active ZITHROMAX Z-EDDIE 250 MG ORAL TABLET 2 today, then 1 daily for 4 days AZITHROMYCIN 15957816129 No Longer Active Augustina Mata APRN Active NOVOLIN R RELION 100 UNIT/ML INJECTION SOLUTION 30- 40 units each meal sliding scale INSULIN REGULAR HUMAN 59263461179 No Longer Active Maleh Ziglari BAKING FACTORY WORKER Active HYDROCODONE-ACETAMINOPHEN 5-500 MG ORAL TABLET 1-2 FOUR TIMES A DAY, PRN 2010 HYDROCODONE-ACETAMINOPHEN 54558575609 No Longer Active Prosper Arenas MD Active DOXYCYCLINE HYCLATE 100 MG ORAL CAPSULE take one capsule by mouth twice daily for ten days DOXYCYCLINE HYCLATE 27522215628 No Longer Active Mekhi Dukes MD Active DOXYCYCLINE HYCLATE 100 MG ORAL CAPSULE take one capsule by mouth twice daily for ten days DOXYCYCLINE HYCLATE 100 MG ORAL CAPSULE 6501267 DOXYCYCLINE HYCLATE Inactive HYDROCODONE-ACETAMINOPHEN 5-500 MG ORAL TABLET 1-2 FOUR TIMES A DAY, PRN 2010 HYDROCODONE-ACETAMINOPHEN 5-500 MG ORAL TABLET 904705 HYDROCODONE-ACETAMINOPHEN Inactive NOVOLIN R RELION 100 UNIT/ML INJECTION SOLUTION 30- 40 units each meal sliding scale NOVOLIN R RELION 100 UNIT/ML INJECTION SOLUTION INSULIN REGULAR HUMAN Inactive ZITHROMAX Z-EDDIE 250 MG ORAL TABLET 2 today, then 1 daily for 4 days ZITHROMAX Z-EDDIE 250 MG ORAL TABLET 644493 AZITHROMYCIN Inactive REVLIMID 25 MG ORAL CAPSULE one capsule daily for 21 days then off for 7 days REVLIMID 25 MG ORAL CAPSULE LENALIDOMIDE Inactive TRAZODONE HCL 50 MG ORAL TABLET three tablets at bed time TRAZODONE HCL 50 MG ORAL TABLET 099515 TRAZODONE HCL Inactive HALOPERIDOL 0.5 MG ORAL TABLET one tablet three times a day HALOPERIDOL 0.5 MG ORAL TABLET 909876 HALOPERIDOL Inactive BENZONATATE 200 MG ORAL CAPSULE 1 tab, 2-3 times a day BENZONATATE 200 MG ORAL CAPSULE 239862 BENZONATATE Inactive MECLIZINE HCL 25 MG ORAL TABLET 1 daily needed for dizziness 2015 MECLIZINE HCL 25 MG ORAL TABLET 942060 MECLIZINE HCL Inactive HYDROCHLOROTHIAZIDE 25 MG ORAL TABLET 1 tablet by mouth daily HYDROCHLOROTHIAZIDE 25 MG ORAL TABLET 210171 HYDROCHLOROTHIAZIDE Inactive PREDNISONE 20 MG ORAL TABLET Take 2 daily for 3 days and then 1 daily for 3 days PREDNISONE 20 MG ORAL TABLET 419531 PREDNISONE Inactive LISINOPRIL 5 MG ORAL TABLET 1 daily LISINOPRIL 5 MG ORAL TABLET 078244 LISINOPRIL Inactive METOPROLOL TARTRATE 25 MG ORAL TABLET 1/2 tablet twice a day METOPROLOL TARTRATE 25 MG ORAL TABLET 176086 METOPROLOL TARTRATE Inactive OMEPRAZOLE 20 MG ORAL CAPSULE DELAYED RELEASE 1 qd OMEPRAZOLE 20 MG ORAL CAPSULE DELAYED RELEASE 720268 OMEPRAZOLE Inactive SIMVASTATIN 80 MG ORAL TABLET 1/2 tablet daily SIMVASTATIN 80 MG ORAL TABLET 729852 SIMVASTATIN Inactive ASPIRIN 81 MG ORAL TABLET 1 tablet by mouth daily ASPIRIN 81 MG ORAL TABLET 400433 ASPIRIN Inactive CALCIUM 500/D 500-200 MG-UNIT ORAL TABLET one tablet daily CALCIUM 500/D 500-200 MG-UNIT ORAL TABLET CALCIUM CARBONATE-VITAMIN D Inactive BENZONATATE 200 MG ORAL CAPSULE Take 1 tablet 3 times a day as needed for cough BENZONATATE 200 MG ORAL CAPSULE 535090 BENZONATATE Inactive AZITHROMYCIN 250 MG ORAL TABLET 2 po qd x 1 day, then 1 po qd x 4 days 05/07 AZITHROMYCIN 250 MG ORAL TABLET 640992 AZITHROMYCIN Inactive Immunizations Vaccine Administration Date Value [...] % 11.6-14.8 platelet count 294 10^3/MM^3 10*3/mm3 028-926 8761/05/29 leukocyte count, blood 2.4 10^3/MM^3 10*3/mm3 4.6-10.2 [...] Panel - Chemistry sodium, serum 139 mmol/L 314-320 0006/05/01 carbon dioxide, venous blood 25.2 mmol/L 21.0-32.0 potassium, serum 4.1 mmol/L 3.5-5.2 chloride, serum 104 mmol/L 98-107 blood glucose 64 mg/dL 65-95 urea nitrogen, blood 16 mg/dL 7-18 creatinine, serum 1.55 mg/dL 0.60-1.30 alanine aminotransferase (SGPT), serum 80 U/L - aspartate aminotransferase (SGOT), serum 53 U/L 15-37 calcium, serum 8.1 mg/dL 8.5-10.1 bilirubin, serum, total 0.40 mg/dL 0.00-1.00 sodium, serum 135 mmol/L 960-526 5596/05/08 carbon dioxide, venous blood 29.0 mmol/L 21.0-32.0 potassium, serum 4.8 mmol/L 3.5-5.2 chloride, serum 101 mmol/L 98-107 blood glucose 165 mg/dL 65-95 urea nitrogen, blood 19 mg/dL 7-18 creatinine, serum 1.51 mg/dL 0.60-1.30 alanine aminotransferase (SGPT), serum 65 U/L - aspartate aminotransferase (SGOT), serum 38 U/L 15-37 calcium, serum 8.2 mg/dL 8.5-10.1 bilirubin, serum, total 0.50 mg/dL 0.00-1.00 sodium, serum 135 mmol/L 967-083 0233/04/10 carbon dioxide, venous blood 26.1 mmol/L 21.0-32.0 potassium, serum 4.2 mmol/L 3.5-5.2 chloride, serum 100 mmol/L 98-107 blood glucose 293 mg/dL 65-110 urea nitrogen, blood 18 mg/dL 7-18 creatinine, serum 2.06 mg/dL 0.60-1.30 alanine aminotransferase (SGPT), serum 59 U/L 12-78 aspartate aminotransferase (SGOT), serum 47 U/L 15-37 calcium, serum 8.6 mg/dL 8.5-10.1 bilirubin, serum, total 0.30 mg/dL 0.00-1.00 sodium, serum 134 mmol/L 394-602 3678/05/15 carbon dioxide, venous blood 23.5 mmol/L 21.0-32.0 potassium, serum 4.8 mmol/L 3.5-5.2 chloride, serum 101 mmol/L 98-107 blood glucose 139 mg/dL 65- urea nitrogen, blood 19 mg/dL 7-18 creatinine, serum 1.79 mg/dL 0.60-1.30 alanine aminotransferase (SGPT), serum 140 U/L -78 aspartate aminotransferase (SGOT), serum 104 U/L 15-37 calcium, serum 8.5 mg/dL 8.5-10.1 bilirubin, serum, total 0.40 mg/dL 0.00-1.00 sodium, serum 137 mmol/L 411-809 0654/06/05 carbon dioxide, venous blood 26.0 mmol/L 21.0-32.0 [...] % 11.6-14.8 platelet count 84 10^3/MM^3 10*3/mm3 712-002 6458/05/01 leukocyte count, blood 5.0 10^3/MM^3 10*3/mm3 4.6-10.2 [...] % 11.6-14.8 platelet count 271 10^3/MM^3 10*3/mm3 983-006 5474/04/10 leukocyte count, blood 4.8 10^3/MM^3 10*3/mm3 4.6-10.2 [...] % 11.6-14.8 platelet count 200 10^3/MM^3 10*3/mm3 103-050 0526/05/15 leukocyte count, blood 1.7 10^3/MM^3 10*3/mm3 4.6-10.2 [...] % 11.6-14.8 platelet count 36 10^3/MM^3 10*3/mm3 125-982 0459/05/08 leukocyte count, blood 1.8 10^3/MM^3 10*3/mm3 4.6-10.2 [...] Panel - Chemistry sodium, serum 136 mmol/L 205-883 0500/05/29 carbon dioxide, venous blood 22.4 mmol/L 21.0-32.0 potassium, serum 4.0 mmol/L 3.5-5.2 chloride, serum 104 mmol/L 98-107 blood glucose 128 mg/dL 65-95 urea nitrogen, blood 20 mg/dL 7-18 creatinine, serum 1.47 mg/dL 0.60-1.30 alanine aminotransferase (SGPT), serum 80 U/L - aspartate aminotransferase (SGOT), serum 38 U/L 15-37 calcium, serum 9.1 mg/dL 8.5-10.1 bilirubin, serum, total 0.40 mg/dL 0.00-1.00 sodium, serum 134 mmol/L 701-339 0372/05/22 carbon dioxide, venous blood 25.2 mmol/L 21.0-32.0 [...] W/DIFF - Chemistry sodium, serum 137 mmol/L 519-654 0856/08/16 carbon dioxide, venous blood 26.3 mmol/L 21.0-32.0 [...] Panel, Glucose- [facility] - Chemistry blood glucose 104 mg/dL 65-110 LDL cholesterol, serum 51 mg/dL 0-130 HDL cholesterol, serum 46 mg/dL 32-60 triglyceride, serum, fasting 89 mg/dL 30-200 cholesterol, serum 115 mg/dL 130-200 Lab Report: [...] mg/dL Encounters Code Encounter Date Provider Facility CPT-46075 Level 3 Est. Patient 14:09:25 CRIMPING MACHINE OPERATOR Dee Palmer APRN [facility] CPT-05087 Level 3 Est. Patient 10:53:32 CRIMPING MACHINE OPERATOR Moy Garcia [facility] CPT-42319 Level 3 Est. Patient 17:11:55 CRIMPING MACHINE OPERATOR Ismael Gracia MD [facility] CPT-26888 Level 4 Est. Patient 16:29:19 CDT Mekhi Dukes MD [facility] CPT-66490 Level 3 New Patient 17:05:24 CDT Ismael Gracia MD [facility] CPT-03869 Level 2 Est. Patient 15:43:17 CDT Mekhi Dukes MD [facility] CPT-02767 Level 3 Est. [facility] 09:30:[facility] CPT-75092 Level 3 Est. Patient 10:00:14 CDT Mekhi Dukes MD [facility] CPT-58267 Level 3 Est. Patient 12:24:09 CDT Moy Garcia [facility]-25453 Level 3 Est. Patient 14:34:57 CDT Prosper Arenas MD [facility] CPT-96816 Level 3 New Patient 15:44:53 CRIMPING MACHINE OPERATOR Mekhi Dukes MD [facility]-41278 Level 3 Est. Patient 14:53:34 CRIMPING MACHINE OPERATOR Prosper Arenas MD [facility]-03877 Level 4 Est. Patient 10:05:41 CRIMPING MACHINE OPERATOR Moy Bradshawrex [facility]-31623 Level 3 Est. Patient 11:18:32 CDT Moy Garcia [facility]-80693 Level 4 Est. Patient 11:05:10 CDT Moy Garcia [facility] CPT-93809 Level 3 Est. Patient 11:08:27 CRIMPING MACHINE OPERATOR Moy Garcia [facility] CPT-28205 Level 4 Est. Patient 10:43:59 CDT Prosper Arenas MD [facility] CPT-48381 Level 3 Est. Patient 10:51:19 CDT Moy Garcia [facility] CPT-12735 Level 3 Est. Patient 10:20:31 CDT Moy Garcia [facility] CPT-70559 Level 3 Est. Patient 17:08:45 CDT Moy Garcia [facility] CPT-17058 Level 2 Est. Patient 13:54:36 CDT Augustina Mata APRN [facility] CPT-98086 Level 3 Est. Patient 12:00:42 CDT Prosper Arenas MD [facility] CPT-78857 Level 3 Est. Patient 09:57:28 CRIMPING MACHINE OPERATOR Moy Garcia [facility] CPT-21846 Level 3 Est. Patient 11:41:19 CRIMPING MACHINE OPERATOR Moy Garcia [facility] CPT-34170 Level 4 Est. Patient 17:07:35 CRIMPING MACHINE OPERATOR Moy Wallacerex [facility] CPT-20091 Level 5 Est. Patient 14:33:32 CDT Moy Wallacerex [facility] CPT-66170 Level 3 Est. Patient 12:25:35 CDT Prosper Arenas MD [facility] Procedures Code Procedure Name Date Entry Date Standard Description CPT-69963 Chest, 2 views 14:17:20 CRIMPING MACHINE OPERATOR CPT-02926 Postop F/U Visit 14:44:45 CRIMPING MACHINE OPERATOR CPT-95280 Postop F/U Visit 17:20:20 CRIMPING MACHINE OPERATOR CPT-G0439 [facility] Annual Wellness Exam 08:39:41 CRIMPING MACHINE OPERATOR CPT-000 Give Appropriate Flu Vaccine 10:13:55 CRIMPING MACHINE OPERATOR CPT-000 Give Immunizations Due 10:13:55 CRIMPING MACHINE OPERATOR CPT-09997 HGBA1C - LAB USE ONLY 09:42:47 CRIMPING MACHINE OPERATOR CPT-36753 TPSA - LAB USE ONLY 09:42:46 CRIMPING MACHINE OPERATOR CPT-76419 Venipuncture Draw Fee 09:42:46 CRIMPING MACHINE OPERATOR CPT-96826 Port a cath flush 13:33:18 CRIMPING MACHINE OPERATOR CPT-39422 First Vx - Ix admin for Medicare patients 10:42:57 CRIMPING MACHINE OPERATOR CPT-97898 Fluzone Preservative Free Intramuscular Suspension 10:42 :57 CRIMPING MACHINE OPERATOR CPT-G0438 Initial Annual Wellness Exam 10:13:55 CRIMPING MACHINE OPERATOR CPT-000 Give Appropriate Flu Vaccine 10:44:04 CDT CPT-000 Give Pneumovax 10:44:03 CDT CPT-66685 Port a cath flush 17:04:43 CDT CPT-58199 Prevnar 13 11:19:17 CDT CPT-77477 Fluzone Quadrivalent preservative free (>=3yrs.) 11:19: 17 CDT CPT-36611 Immunization Each Additional Inj 11:19:17 CDT CPT-92494 Immunization Single Admin 11:19:17 CDT CPT-06555 Port a cath flush 13:28:22 CDT CPT-TCMM Transitional Care Mgmt-Moderate 13:40:15 CDT CPT-G0008 Administration of Influenza Virus Vaccine 13:59:20 CDT CPT-08963 Fluzone High-Dose Intramuscular Suspension 13:59:20 CDT CPT-10097 Venipuncture Draw Fee 09:56:19 CDT CPT-OV Office Visit 15:46:10 CDT
--- OUTSIDE RECORDS SUMMARY | 2017-09-13 13:41 | XMS REPORT | Clinical Summary ---
Author Author Admin, Kaylynn Organization [facility] Address Unknown Phone Unavailable Allergies, Adverse Reactions, Alerts Allergy Name Reaction Description Start Date Severity Status Provider ERYTHROMYCIN Stomach cramps Moderate Active Prosper Arenas MD CODEINE Critical Active Maliheh Ziglari WARD SECRETARY DARVOCET Critical Active Maliheh Ziglari WARD SECRETARY LEVAQUIN Critical Active Maliheh Ziglari WARD SECRETARY Conditions or Problems Problem Name Problem Code Onset Date Status Entry Date Provider Comment Standard Description Annotate Diabetes, Type 2 250.00 Resolved 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, 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 II [...] type II, uncontrolled 250.02 Active Maliheh Rodrigoglari WARD SECRETARY Diabetes mellitus without mention of complication, [...] with hyperglycemia 250.00 Active 03/21 Maliheh Ziglari WARD SECRETARY Diabetes mellitus without mention of complication, type II or unspecified type, not stated as uncontrolled nursing home use of insulin treatment V58.67 Active Luxiheh Rodrigoglari WARD SECRETARY Long-term (current) use of insulin Diabetes mellitus, type II with hypoglycemia 250.80 Active 07/22 Maliheh Ziglari WARD SECRETARY Diabetes mellitus with other specified manifestations, type II or unspecified type, not stated as uncontrolled 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 Maliheh Ziglari WARD SECRETARY Diabetes mellitus with renal manifestations, type II or unspecified type, not stated as uncontrolled Wellness exam V70.0 Active Dee Palmer APRN Routine general medical examination at a health care facility Fitting and adjustment of vascular catheter V58.81 Active 02/06 Dee Palmer APRN Encounter for fitting and adjustment of vascular catheter Unawareness of hypoglycemia in diabetes mellitus, type II 250.80 Active Maliheh Rodrigoglari WARD SECRETARY Diabetes mellitus with other specified manifestations, [...] specified as recurrent) Gastritis Inactive Maliheh Rodrigoglrex WARD SECRETARY Unspecified gastritis and gastroduodenitis, without mention of [...] po qd x 4 days 05/07 AZITHROMYCIN 57744245466 No Longer Active Dee Palmer APRN Active GUAIFENESIN DM 400-20 MG ORAL TABLET 1 pill by mouth twice daily, if needed for cough DEXTROMETHORPHAN-GUAIFENESIN 58488583208 Active Dee Palmer APRN Active PREDNISONE 20 MG ORAL TABLET 2 tabs daily for 4 days, 1 tab daily for 4 days, 1/2 tab daily for 4 days PREDNISONE 87270336344 Active Dee Palmer APRN Active ASPIRIN 81 MG ORAL TABLET 1 po qd ASPIRIN 02282161233 Active Ryanllvito Barkleyl ACCOUNTS PAYABLE MANAGER Active CALCIUM 500/D 500-200 MG-UNIT ORAL TABLET one tablet daily CALCIUM CARBONATE-VITAMIN D 75697879745 No Longer Active Jillvito Barkleyngoc ACCOUNTS PAYABLE MANAGER Active HYDROCODONE-ACETAMINOPHEN 7.5-325 MG ORAL TABLET 1-2 every 4-6 hrs prn 02/25 HYDROCODONE-ACETAMINOPHEN 96335047400 Active Marina Messina ACCOUNTS PAYABLE MANAGER Active ASPIRIN 81 MG ORAL TABLET 1 tablet by mouth daily ASPIRIN 22783848944 No Longer Active Marina Messina ACCOUNTS PAYABLE MANAGER Active SIMVASTATIN 80 MG ORAL TABLET 1/2 tablet daily SIMVASTATIN 13552322491 No Longer Active Mekhi Dukes MD Active OMEPRAZOLE 20 MG ORAL CAPSULE DELAYED RELEASE 1 qd OMEPRAZOLE 35841969553 No Longer Active Mekhi Dukes MD Active METOPROLOL TARTRATE 25 MG ORAL TABLET 1/2 tablet twice a day METOPROLOL TARTRATE 96601117403 No Longer Active Mekhi Dukes MD Active LISINOPRIL 5 MG ORAL TABLET 1 daily LISINOPRIL 79907509332 No Longer Active Mekhi Dukes MD Active NOVOLOG FLEXPEN 100 UNIT/ML SUBCUTANEOUS SOLUTION PEN-INJECTOR Take 8 units with each meal, add 1u/50 for blood sugars above 150. INSULIN ASPART 64343583006 Active Moy PARISH Active GABAPENTIN 300 MG ORAL CAPSULE 1 tab BID GABAPENTIN 07760830646 Active Tami Miller RN Active PREDNISONE 20 MG ORAL TABLET Take 2 daily for 3 days and then 1 daily for 3 days PREDNISONE 63716491230 No Longer Active Moy PARISH Active BENZONATATE 200 MG ORAL CAPSULE Take 1 tablet 3 times a day as needed for cough BENZONATATE 85452116608 No Longer Active Prosper Arenas MD Active HYDROCHLOROTHIAZIDE 25 MG ORAL TABLET 1 tablet by mouth daily HYDROCHLOROTHIAZIDE 33426763488 No Longer Active Prosper Arenas MD Active ACCU-CHEK JOANNA PLUS IN VITRO STRIP check blood sugars 5x a day, before each meal and bedtime and 15 minutes after treating a low blood. sugar GLUCOSE BLOOD 02941144613 Active Moy Wallaceglrex PARISH Active LANTUS SOLOSTAR 100 UNIT/ML SUBCUTANEOUS SOLUTION PEN-INJECTOR Take 40 units at 7-8pm daily INSULIN GLARGINE 50614017365 Active Maliheh Ziglari WARD SECRETARY Active MECLIZINE HCL 25 MG ORAL TABLET 1 daily needed for dizziness 2015 MECLIZINE HCL 66893417910 No Longer Active Maliheh Ziglari WARD SECRETARY Active BENZONATATE 200 MG ORAL CAPSULE 1 tab, 2-3 times a day BENZONATATE 06505091344 No Longer Active Maliheh Ziglari WARD SECRETARY Active HALOPERIDOL 0.5 MG ORAL TABLET one tablet three times a day HALOPERIDOL 69642403979 No Longer Active Maliheh Ziglari WARD SECRETARY Active TRAZODONE HCL 50 MG ORAL TABLET three tablets at bed time TRAZODONE HCL 94029448827 No Longer Active Maleh Ziglari WARD SECRETARY Active REVLIMID 25 MG ORAL CAPSULE one capsule daily for 21 days then off for 7 days LENALIDOMIDE 09393191592 No Longer Active Maleh Ziglari WARD SECRETARY Active ZITHROMAX Z-EDDIE 250 MG ORAL TABLET 2 today, then 1 daily for 4 days AZITHROMYCIN 08718177591 No Longer Active Augustina Mata APRN Active NOVOLIN R RELION 100 UNIT/ML INJECTION SOLUTION 30- 40 units each meal sliding scale INSULIN REGULAR HUMAN 70781182791 No Longer Active Maleh Ziglari WARD SECRETARY Active HYDROCODONE-ACETAMINOPHEN 5-500 MG ORAL TABLET 1-2 FOUR TIMES A DAY, PRN 2010 HYDROCODONE-ACETAMINOPHEN 96192458715 No Longer Active Prosper Arenas MD Active DOXYCYCLINE HYCLATE 100 MG ORAL CAPSULE take one capsule by mouth twice daily for ten days DOXYCYCLINE HYCLATE 82311310095 No Longer Active Mekhi Dukes MD Active DOXYCYCLINE HYCLATE 100 MG ORAL CAPSULE take one capsule by mouth twice daily for ten days DOXYCYCLINE HYCLATE 100 MG ORAL CAPSULE 5046099 DOXYCYCLINE HYCLATE Inactive HYDROCODONE-ACETAMINOPHEN 5-500 MG ORAL [...] days ZITHROMAX Z-EDDIE 250 MG ORAL TABLET 650878 AZITHROMYCIN Inactive REVLIMID 25 MG ORAL CAPSULE one capsule daily for 21 days then off for 7 days REVLIMID 25 MG ORAL CAPSULE LENALIDOMIDE Inactive TRAZODONE HCL 50 MG ORAL TABLET three tablets at bed time TRAZODONE HCL 50 MG ORAL TABLET 100897 TRAZODONE HCL Inactive HALOPERIDOL 0.5 MG ORAL TABLET one tablet three times a day HALOPERIDOL 0.5 MG ORAL TABLET 224814 HALOPERIDOL Inactive BENZONATATE 200 MG ORAL CAPSULE 1 tab, 2-3 times a day BENZONATATE 200 MG ORAL CAPSULE 647605 BENZONATATE Inactive MECLIZINE HCL 25 MG ORAL TABLET 1 daily needed for dizziness 2015 MECLIZINE HCL 25 MG ORAL TABLET 939099 MECLIZINE HCL Inactive HYDROCHLOROTHIAZIDE 25 MG ORAL TABLET 1 tablet by mouth daily HYDROCHLOROTHIAZIDE 25 MG ORAL TABLET 238555 HYDROCHLOROTHIAZIDE Inactive PREDNISONE 20 MG ORAL TABLET Take 2 daily for 3 days and then 1 daily for 3 days PREDNISONE 20 MG ORAL TABLET 872199 PREDNISONE Inactive LISINOPRIL 5 MG ORAL TABLET 1 daily LISINOPRIL 5 MG ORAL TABLET 413964 LISINOPRIL Inactive METOPROLOL TARTRATE 25 MG ORAL TABLET 1/2 tablet twice a day METOPROLOL TARTRATE 25 MG ORAL TABLET 871681 METOPROLOL TARTRATE Inactive OMEPRAZOLE 20 MG ORAL CAPSULE DELAYED RELEASE 1 qd OMEPRAZOLE 20 MG ORAL CAPSULE DELAYED RELEASE 113269 OMEPRAZOLE Inactive SIMVASTATIN 80 MG ORAL TABLET 1/2 tablet daily SIMVASTATIN 80 MG ORAL TABLET 456031 SIMVASTATIN Inactive ASPIRIN 81 MG ORAL TABLET 1 tablet by mouth daily ASPIRIN 81 MG ORAL TABLET ASPIRIN Inactive CALCIUM 500/D 500-200 MG-UNIT ORAL TABLET one tablet daily CALCIUM 500/D 500-200 MG-UNIT ORAL TABLET CALCIUM CARBONATE-VITAMIN D Inactive BENZONATATE 200 MG ORAL CAPSULE Take 1 tablet 3 times a day as needed for cough BENZONATATE 200 MG ORAL CAPSULE 685753 BENZONATATE Inactive AZITHROMYCIN 250 MG ORAL TABLET 2 po qd x 1 day, then 1 po qd x 4 days 05/07 AZITHROMYCIN 250 MG ORAL TABLET 762378 AZITHROMYCIN Inactive Immunizations Vaccine Administration Date Value [...] % 11.6-14.8 platelet count 294 10^3/MM^3 10*3/mm3 154-841 6804/05/29 leukocyte count, blood 2.4 10^3/MM^3 10*3/mm3 4.6-10.2 [...] Panel - Chemistry sodium, serum 139 mmol/L 894-349 8092/05/01 carbon dioxide, venous blood 25.2 mmol/L 21.0-32.0 potassium, serum 4.1 mmol/L 3.5-5.2 chloride, serum 104 mmol/L 98-107 blood glucose 64 mg/dL 65-95 urea nitrogen, blood 16 mg/dL 7- creatinine, serum 1.55 mg/dL 0.60-1.30 alanine aminotransferase (SGPT), serum 80 U/L - aspartate aminotransferase (SGOT), serum 53 U/L 15- calcium, serum 8.1 mg/dL 8.5-10.1 bilirubin, serum, total 0.40 mg/dL 0.00-1.00 sodium, serum 135 mmol/L 214-747 8138/05/08 carbon dioxide, venous blood 29.0 mmol/L 21.0-32.0 potassium, serum 4.8 mmol/L 3.5-5.2 chloride, serum 101 mmol/L 98-107 blood glucose 165 mg/dL 65-95 urea nitrogen, blood 19 mg/dL 7-18 creatinine, serum 1.51 mg/dL 0.60-1.30 alanine aminotransferase (SGPT), serum 65 U/L - aspartate aminotransferase (SGOT), serum 38 U/L 15-37 calcium, serum 8.2 mg/dL 8.5-10.1 bilirubin, serum, total 0.50 mg/dL 0.00-1.00 sodium, serum 135 mmol/L 426-453 3991/04/10 carbon dioxide, venous blood 26.1 mmol/L 21.0-32.0 potassium, serum 4.2 mmol/L 3.5-5.2 chloride, serum 100 mmol/L 98-107 blood glucose 293 mg/dL 65-110 urea nitrogen, blood 18 mg/dL 7-18 creatinine, serum 2.06 mg/dL 0.60-1.30 alanine aminotransferase (SGPT), serum 59 U/L 12-78 aspartate aminotransferase (SGOT), serum 47 U/L 15-37 calcium, serum 8.6 mg/dL 8.5-10.1 bilirubin, serum, total 0.30 mg/dL 0.00-1.00 sodium, serum 134 mmol/L 026-259 3556/05/15 carbon dioxide, venous blood 23.5 mmol/L 21.0-32.0 potassium, serum 4.8 mmol/L 3.5-5.2 chloride, serum 101 mmol/L 98-107 blood glucose 139 mg/dL 65-95 urea nitrogen, blood 19 mg/dL 7-18 creatinine, serum 1.79 mg/dL 0.60-1.30 alanine aminotransferase (SGPT), serum 140 U/L 12-78 aspartate aminotransferase (SGOT), serum 104 U/L 15-37 calcium, serum 8.5 mg/dL 8.5-10.1 bilirubin, serum, total 0.40 mg/dL 0.00-1.00 sodium, serum 137 mmol/L 481-978 8497/06/05 carbon dioxide, venous blood 26.0 mmol/L 21.0-32.0 [...] % 11.6-14.8 platelet count 84 10^3/MM^3 10*3/mm3 272-413 0948/05/01 leukocyte count, blood 5.0 10^3/MM^3 10*3/mm3 4.6-10.2 [...] % 11.6-14.8 platelet count 271 10^3/MM^3 10*3/mm3 251-176 4309/04/10 leukocyte count, blood 4.8 10^3/MM^3 10*3/mm3 4.6-10.2 [...] % 11.6-14.8 platelet count 200 10^3/MM^3 10*3/mm3 491-755 5763/05/15 leukocyte count, blood 1.7 10^3/MM^3 10*3/mm3 4.6-10.2 [...] % 11.6-14.8 platelet count 36 10^3/MM^3 10*3/mm3 238-274 8363/05/08 leukocyte count, blood 1.8 10^3/MM^3 10*3/mm3 4.6-10.2 [...] Panel - Chemistry sodium, serum 136 mmol/L 564-586 7105/05/29 carbon dioxide, venous blood 22.4 mmol/L 21.0-32.0 potassium, serum 4.0 mmol/L 3.5-5.2 chloride, serum 104 mmol/L 98-107 blood glucose 128 mg/dL 65-95 urea nitrogen, blood 20 mg/dL 7-18 creatinine, serum 1.47 mg/dL 0.60-1.30 alanine aminotransferase (SGPT), serum 80 U/L - aspartate aminotransferase (SGOT), serum 38 U/L 15-37 calcium, serum 9.1 mg/dL 8.5-10.1 bilirubin, serum, total 0.40 mg/dL 0.00-1.00 sodium, serum 134 mmol/L 591-964 5294/05/22 carbon dioxide, venous blood 25.2 mmol/L 21.0-32.0 [...] W/DIFF - Chemistry sodium, serum 137 mmol/L 857-440 3835/08/16 carbon dioxide, venous blood 26.3 mmol/L 21.0-32.0 [...] LABS - Chemistry cholesterol, serum 115 mg/dL 734-423 9283/08/18 triglyceride, serum, fasting 89 mg/dL 30-200 HDL [...] mg/dL Encounters Code Encounter Date Provider Facility CPT-78982 Level 3 Est. Patient 14:09:25 BUSINESS ANALYTICS MANAGER Dee Palmer APRN [facility] CPT-92073 Level 3 Est. Patient 10:53:32 BUSINESS ANALYTICS MANAGER Moy Garcia [facility] CPT-32377 Level 3 Est. Patient 17:11:55 BUSINESS ANALYTICS MANAGER Ismael Gracia MD [facility] CPT-50271 Level 4 Est. Patient 16:29:19 CDT Mekhi Dukes MD [facility] CPT-23750 Level 3 New Patient 17:05:24 CDT Ismael Gracia MD [facility] CPT-10126 Level 2 Est. Patient 15:43:17 CDT Mekhi Dukes MD [facility] CPT-70816 Level 3 Est. Patient 09:30:37 CDT Moy Garcia [facility] CPT-76136 Level 3 Est. Patient 10:00:14 CDT Mekhi Dukes MD [facility] CPT-19868 Level 3 Est. Patient 12:24:09 CDT Moy Garcia [facility] [place]-70203 Level 3 Est. Patient 14:34:57 CDT Prosper Arenas MD [facility] CPT-86010 Level 3 New Patient 15:44:53 BUSINESS ANALYTICS MANAGER Mekhi Dukes MD [facility]-51895 Level 3 Est. Patient 14:53:34 BUSINESS ANALYTICS MANAGER Prosper Arenas MD [facility]-71436 Level 4 Est. Patient 10:05:41 BUSINESS ANALYTICS MANAGER Moy Bradshawrex [facility]-35075 Level 3 Est. Patient 11:18:32 [facility] Patient 11:05:10 CDT Moy Garcia [facility]-06727 Level 3 Est. Patient 11:08:27 BUSINESS ANALYTICS MANAGER Moy Garcia [facility] [place] CPT-73919 Level 4 Est. Patient 10:43:59 CDT Prosper Arenas MD [facility] CPT-71165 Level 3 Est. Patient 10:51:19 CDT Moy Garcia [facility] [place] CPT-27597 Level 3 Est. Patient 10:20:31 CDT Moy Garcia [facility] [place] CPT-26472 Level 3 Est. Patient 17:08:45 CDT Moy Garcia [facility] [place] CPT-42796 Level 2 Est. Patient 13:54:36 CDT Augustina Mata APRN [facility]-69870 Level 3 Est. Patient 12:00:42 CDT Prosper Arenas MD [facility] CPT-89180 Level 3 Est. Patient 09:57:28 BUSINESS ANALYTICS MANAGER Luxshoaib Garcia [facility] [place] CPT-65837 Level 3 Est. Patient 11:41:19 BUSINESS ANALYTICS MANAGER Luxshoaib Wallacerex [facility] [place] CPT-33650 Level 4 Est. Patient 17:07:35 BUSINESS ANALYTICS MANAGER [facility] CPT-02775 Level 5 Est. Patient 14:33:32 CDT Moy Wallacerex [facility] [place] CPT-47560 Level 3 Est. Patient 12:25:35 CDT Prosper Arenas MD [facility] Procedures Code Procedure Name Date Entry Date Standard Description CPT-09019 Chest, 2 views 14:17:20 BUSINESS ANALYTICS MANAGER CPT-45604 Postop F/U Visit 14:44:45 BUSINESS ANALYTICS MANAGER CPT-24153 Postop F/U Visit 17:20:20 BUSINESS ANALYTICS MANAGER CPT-G0439 [facility] Annual Wellness Exam 08:39:41 BUSINESS ANALYTICS MANAGER CPT-000 Give Appropriate Flu Vaccine 10:13:55 BUSINESS ANALYTICS MANAGER CPT-000 Give Immunizations Due 10:13:55 BUSINESS ANALYTICS MANAGER CPT-75948 HGBA1C - LAB USE ONLY 09:42:47 BUSINESS ANALYTICS MANAGER CPT-34603 TPSA - LAB USE ONLY 09:42:46 BUSINESS ANALYTICS MANAGER CPT-46223 Venipuncture Draw Fee 09:42:46 BUSINESS ANALYTICS MANAGER CPT-81771 Port a cath flush 13:33:18 BUSINESS ANALYTICS MANAGER CPT-99758 First Vx - Ix admin for Medicare patients 10:42:57 BUSINESS ANALYTICS MANAGER CPT-38172 Fluzone Preservative Free Intramuscular Suspension 10:42 :57 BUSINESS ANALYTICS MANAGER CPT-G0438 Initial Annual Wellness Exam 10:13:55 BUSINESS ANALYTICS MANAGER CPT-000 Give Appropriate Flu Vaccine 10:44:04 CDT CPT-000 Give Pneumovax 10:44:03 CDT CPT-46289 Port a cath flush 17:04:43 CDT CPT-08286 Prevnar 13 11:19:17 CDT CPT-96356 Fluzone Quadrivalent preservative free (>=3yrs.) 11:19: 17 CDT CPT-21056 Immunization Each Additional Inj 11:19:17 CDT CPT-52698 Immunization Single Admin 11:19:17 CDT CPT-77479 Port a cath flush 13:28:22 CDT CPT-TCMM Transitional Care Mgmt-Moderate 13:40:15 CDT CPT-G0008 Administration of Influenza Virus Vaccine 13:59:20 CDT CPT-58116 Fluzone High-Dose Intramuscular Suspension 13:59:20 CDT CPT-91946 Venipuncture Draw Fee 09:56:19 CDT CPT-OV Office Visit 15:46:10 CDT
--- OUTSIDE RECORDS SUMMARY | 2017-09-13 14:14 | XMS REPORT | Continuity of Care Document ---
Demographics x Preferred Language Unknown Marital Status Unknown Mormonism Affiliation Unknown Race Unknown Ethnic Group Unknown Author Author [facility] Organization [facility] Address Unknown Phone Unavailable Allergies Active Description Code Type Severity Reaction Onset Reported/Identified Relationship to Patient Clinical Status Yes Biaxin 8504 Drug Allergy N/A N/A Yes Codeine 1550 Drug Allergy Mild Unknown Yes Codeine 1550 Drug Allergy N/A N/A Confirmed or Verified Yes Darvocet-N 100 4878 Drug Allergy N/A N/A Yes Erythromycin Base 2755 Drug Allergy N/A N/A Yes Levaquin 47248 Drug Allergy N/ A N/A Yes niacin 1052 Drug Allergy N/A N/A Yes No known food allergies NO KNOWN FOOD ALLERG NF N/A N/A Yes Propoxyphene 1574 Drug Allergy N/A N/A Yes Darvocet-N 50 Drug N/A N/A Yes erythromycin Drug N/A N/A Yes Levaquin Drug N/A N/A Yes niacin Drug N/A N/ A Yes NKDA - NO KNOWN DRUG ALLERGIES [id number] CLASS N/A N/A Yes CODEINE SULFATE SEVERE DERMATOLOGICAL - HIV Yes ERYTHROMYCIN SEVERE DERMATOLOGICAL - HIV Yes LEVAQUIN SEVERE DERMATOLOGICAL - HIV Yes NIACIN SEVERE DERMATOLOGICAL - HIV Yes codeine Drug Allergy Unknown N/A 10/09/2015 Yes erythromycin Drug Allergy Unknown N/A 10/09/2015 Yes Levaquin Drug Allergy Unknown N/A 10/09/2015 Yes codeine [id number] Drug Allergy Unknown N/A 08/25/2017 Yes DARVOCET DARVOCET Unknown N/A 08/25/2017 Yes ERYTHROMYCIN ERYTHROMYCIN Unknown N/A 08/25/2017 Yes levofloxacin [id number] Drug Allergy Unknown N/A 08/25/2017 Yes niacin [id number] Drug Allergy Unknown N/A 08/25/2017 Medications Medication Packaging Start Date Stop Date [...] Ot E66.9 OBESITY, UNSPECIFIED 05/15/2016 STEF JOE MD, Ot E78.2 MIXED HYPERLIPIDEMIA 05/15/2016 STEF JOE MD Ot I10 ESSENTIAL (PRIMARY) HYPERTENSION 05/15/2016 STEF JOE MD Ot I95.9 HYPOTENSION, UNSPECIFIED 05/15/2016 STEF JOE MD, Ot R42 DIZZINESS AND GIDDINESS 05/15/2016 STEF [...] I95.9 HYPOTENSION, UNSPECIFIED 06/23/2016 STEF JOE MD J Ot R42 DIZZINESS AND GIDDINESS 07/04/2016 STEF [...] E78.2 MIXED HYPERLIPIDEMIA 11/03/2016 STEF JOE MD J Ot I10 ESSENTIAL (PRIMARY) HYPERTENSION 11/03/2016 STEF JOE MD Ot I95.9 HYPOTENSION, UNSPECIFIED 11/03/2016 STEF JOE MD J Ot R42 DIZZINESS AND GIDDINESS 11/03/2016 STEF JOE MD, Ot E66.9 OBESITY, UNSPECIFIED 11/03/2016 STEF JOE MD, Ot E78.2 MIXED HYPERLIPIDEMIA 11/03/2016 STEF JOE MD Ot I10 ESSENTIAL (PRIMARY) HYPERTENSION 11/03/2016 STEF JOE MD, Ot I95.9 HYPOTENSION, UNSPECIFIED 11/03/2016 STEF JOE MD, Ot R42 DIZZINESS AND GIDDINESS 01/19/2017 Yomi Ramesh MD R10.31 Inguinal pain, right 02/16/2017 [...] SINHA 287.5 THROMBOCYTOPENIA, UNSPECIFIED 08/09/2017 SAM SINHA W 288.60 LEUKOCYTOSIS, UNSPECIFIED 08/09/2017 SAM SINHA A 789.07 ABDOMINAL PAIN, GENERALIZED 08/09/2017 SAM SINHA C90.00 MULTIPLE MYELOMA NOT HAVING ACHIEVED REMISSION 08/09/2017 SAM SINHA D69.6 THROMBOCYTOPENIA, UNSPECIFIED 08/09/2017 SAM SINHA D72.829 ELEVATED WHITE BLOOD CELL COUNT, UNSPECIFIED 08/09/2017 SAM SINHA A R10.84 GENERALIZED ABDOMINAL PAIN 08/11/2017 Yomi Ramesh MD C90.02 Multiple myeloma, in relapse 08/25/2017 STEF JOE MD, Ot E66.9 OBESITY, UNSPECIFIED 08/25/2017 STEF JOE MD, Ot E78.2 MIXED HYPERLIPIDEMIA 08/25/2017 HEATH MD, BASHAR J Ot I10 ESSENTIAL (PRIMARY) HYPERTENSION 08/25/2017 HEATH ARAUJO, STEF Guevara Ot I95.9 HYPOTENSION, UNSPECIFIED 08/25/2017 STEF JOE MD Ot R42 DIZZINESS AND GIDDINESS 08/25/2017 STEF JOE MD Ot E66.9 OBESITY, UNSPECIFIED 08/25/2017 STEF JOE MD Ot E78.2 MIXED HYPERLIPIDEMIA 08/25/2017 STEF JOE MD Ot I10 ESSENTIAL (PRIMARY) HYPERTENSION 08/25/2017 STEF JOE MD Ot I95.9 HYPOTENSION, UNSPECIFIED 08/25/2017 HEATH ARAUJO, STEF Guevara Ot R42 DIZZINESS AND GIDDINESS 08/27/2017 MELVIN BLANCO DO Ot C90.02 MULTIPLE MYELOMA IN RELAPSE 08/27/2017 MELVIN BLANCO DO Ot D61.818 OTHER PANCYTOPENIA 08/27/2017 MELVIN BLANCO DO Ot E11.9 TYPE 2 DIABETES MELLITUS WITHOUT COMPLIC 08/27/2017 MELVIN BLANCO DO Ot E78.00 PURE HYPERCHOLESTEROLEMIA, UNSPECIFIED 08/27/2017 MELVIN BLANCO DO Ot E86.0 DEHYDRATION 08/27/2017 MELVIN BLANCO DO Ot I10 ESSENTIAL (PRIMARY) HYPERTENSION 08/27/2017 MELVIN BLANCO DO Ot I25.10 ATHSCL HEART DISEASE OF [place] CORONARY 08/27/2017 MELVIN BLANCO DO Ot I25.2 OLD MYOCARDIAL INFARCTION 08/27/2017 MELVIN BLANCO DO Ot N28.9 DISORDER OF KIDNEY AND URETER, UNSPECIFI 08/27/2017 MELVIN BLANCO DO Ot R06.02 SHORTNESS OF BREATH 08/27/2017 MELVIN BLANCO DO Ot R74.8 ABNORMAL LEVELS OF OTHER SERUM ENZYMES 08/27/2017 MELVIN BLANCO DO Ot Z87.19 PERSONAL HISTORY OF OTHER DISEASES OF TH 08/27/2017 MELVIN BLANCO DO Ot Z87.81 PERSONAL HISTORY OF (HEALED) TRAUMATIC F 08/27/2017 MELVIN BLANCO DO Ot Z87.828 PERSONAL HISTORY OF OTH (HEALED) PHYSICA 08/27/2017 MELVIN BLANCO DO Ot Z87.891 PERSONAL HISTORY OF NICOTINE DEPENDENCE 08/27/2017 MELVIN BLANCO DO Ot Z88.1 ALLERGY STATUS TO OTHER ANTIBIOTIC AGENT 08/27/2017 MELVIN BLANCO DO Ot Z88.5 ALLERGY STATUS TO NARCOTIC AGENT STATUS 08/27/2017 MELVIN BLANCO DO Ot Z95.5 PRESENCE OF CORONARY ANGIOPLASTY IMPLANT Procedures Code [place] [address] DRAW BLOOD OFF VENOUS DEVICE 12/29/2013 63268 COMPREHEN METABOLIC PANEL 12/29/2013 20150 LACTATE (LD) (LDH) ENZYME 12/29/2013 18785 ASSAY OF MAGNESIUM 12/29/2013 87560 ASSAY, NEPHELOMETRY NOT SPEC 12/29/2013 03751 ASSAY OF PHOSPHORUS 12/29/2013 23325 COMPLETE CBC W/AUTO DIFF WBC 12/29/2013 J1642 INJ HEPARIN SODIUM PER 10 U 12/29/2013 04371 DRAW BLOOD OFF VENOUS DEVICE 05/14/2015 85147 COMPREHEN METABOLIC PANEL 05/14/2015 46550 ASSAY, NEPHELOMETRY NOT SPEC 05/14/2015 49458 BL SMEAR W/DIFF WBC COUNT 05/14/2015 00038 COMPLETE CBC, AUTOMATED 05/14/2015 J1642 INJ HEPARIN SODIUM PER 10 U 05/14/2015 95691 DRAW BLOOD OFF VENOUS DEVICE 08/06/2015 62975 COMPREHEN METABOLIC PANEL 08/06/2015 71941 COMPLETE CBC W/AUTO DIFF WBC 08/06/2015 J1642 INJ HEPARIN SODIUM PER 10 U 08/06/2015 32178 Office or other outpatient visit for the evaluation and management of a new patient, which requires HENRIK MCCARTHY 10/11/2015 49041 Office or other outpatient visit for the evaluation and management of a new patient, which requires HENRIK MCCARTHY 01/30/2016 09986 COMPLETE CBC W/AUTO DIFF WBC FREDDIE SCHAFER [...] 3.4 10^3u 4.8-10.8 SEGS 62.0 % 40-70 [facility] - 10/09/13 00:00 ALB 3.3 G/DL 3.5-5 [...] 66.6 ng/ml 1.6-154.9 Troponin <0.020 ng/mL 0.0-0.4 Comprehensive metabolic panel - 08/25/17 19:45 Serum or plasma sodium measurement (moles/volume) 136 mmol/L 135-145 Serum or plasma potassium measurement (moles/volume) 3.8 mmol/L 3.6-5.0 Serum or plasma chloride measurement (moles/volume) 108 mmol/L 98-107 Carbon dioxide 18 mmol/L 21-32 Serum or plasma anion gap determination (moles/volume) 10 mmol/L 5-14 Serum or plasma urea nitrogen measurement (mass/volume) 19 mg/dL 7-18 Serum or plasma creatinine measurement (mass/volume) 1.47 mg/dL 0.60-1.30 Serum or plasma urea nitrogen/creatinine mass ratio 13 NRG Serum or plasma creatinine measurement with calculation of estimated glomerular filtration rate 58 NRG Serum or plasma glucose measurement (mass/volume) 139 mg/dL 70-105 Serum or plasma calcium measurement (mass/volume) 8.4 mg/dL 8.5-10.1 Serum or plasma total bilirubin measurement (mass/volume) 0.4 mg/dL 0.1-1.0 Serum or plasma alkaline phosphatase measurement (enzymatic activity/volume) 96 U/L 40-136 Serum or plasma aspartate aminotransferase measurement (enzymatic activity/ volume) 37 U/L 5-34 Serum or plasma alanine aminotransferase measurement (enzymatic activity/volume ) 66 U/L 0-55 Serum or plasma protein measurement (mass/volume) 6.1 g/dL 6.4-8.2 Serum or plasma albumin measurement (mass/volume) 3.5 g/dL 3.2-4.5 Magnesium - 08/25/17 19:45 Magnesium 2.1 mg/dL 1.8-2.4 Serum or plasma creatine kinase measurement (enzymatic activity/volume) - 08/25 19:45 Serum or plasma creatine kinase measurement (enzymatic activity/volume) 104 U/L 30-200 Blood lactic acid measurement (moles/volume) - 08/25/17 19:45 Blood lactic acid measurement (moles/volume) 2.04 mmol/L 0.50-2.00 Complete blood count (CBC) with automated white blood cell (WBC) differential - 08/25/17 19:45 Blood leukocytes automated count (number/volume) 2.6 10*3/uL 4.3-11.0 Blood erythrocytes automated count (number/volume) 3.79 10*6/uL 4.35-5.85 Venous blood hemoglobin measurement (mass/volume) 12.7 g/dL 13.3-17.7 Blood hematocrit (volume fraction) 35 % 40-54 Automated erythrocyte mean corpuscular volume 92 [foz_us] 80-99 Automated erythrocyte mean corpuscular hemoglobin (mass per erythrocyte) 34 pg 25-34 Automated erythrocyte mean corpuscular hemoglobin concentration measurement ( mass/volume) 36 g/dL 32-36 Automated erythrocyte distribution width ratio 11.9 % 10.0-14.5 Automated blood platelet count (count/volume) 114 10*3/uL 130-400 Automated blood platelet mean volume measurement 11.8 [foz_us] 7.4-10.4 Automated blood neutrophils/100 leukocytes 65 % 42-75 Automated blood lymphocytes/100 leukocytes 9 % 12-44 Blood monocytes/100 leukocytes 23 % 0-12 Automated blood eosinophils/100 leukocytes 2 % 0-10 Automated blood basophils/100 leukocytes 0 % 0-10 Blood neutrophils automated count (number/volume) 1.7 10*3 1.8-7.8 Blood lymphocytes automated count (number/volume) 0.2 10*3 1.0-4.0 Blood monocytes automated count (number/volume) 0.6 10*3 0.0-1.0 Automated eosinophil count 0.0 10*3/uL 0.0-0.3 Automated blood basophil count (count/volume) 0.0 10*3/uL 0.0-0.1 Serum or plasma creatine kinase MB measurement (enzymatic activity/volume) - 19:45 Serum or plasma creatine kinase MB measurement (enzymatic activity/volume) 1.2 ng/mL <6.6 Serum or plasma troponin i.cardiac measurement (mass/volume) - 08/25/17 19:45 Serum or plasma troponin i.cardiac measurement (mass/volume) < ng/ mL <0.30 Serum or plasma lithium measurement (moles/volume) - 08/25/17 19:45 BNP level 14.5 pg/mL <100.0 Blood manual differential performed detection - 08/25/17 19:45 Blood monocytes/100 leukocytes 18 % NRG Manual blood segmented neutrophils/100 leukocytes 68 % NRG Manual blood lymphocytes/100 leukocytes 11 % NRG Manual eosinophils/100 leukocytes in nose 2 % NRG Manual blood basophils/100 leukocytes 1 % NRG Blood erythrocyte morphology finding identification NORMAL NRG Bacterial blood culture - 08/25/17 19:45 Bacterial blood culture NG NRG Complete urinalysis with reflex to culture - 08/25/17 20:05 Urine color determination YELLOW NRG Urine clarity determination CLEAR NRG Urine pH measurement by test strip 6 5-9 Specific gravity of urine by test strip 1.015 1.016- 1.022 Urine protein assay by test strip, semi-quantitative NEGATIVE NEGATIVE Urine glucose detection by automated test strip NEGATIVE NEGATIVE Erythrocytes detection in urine sediment by light microscopy NEGATIVE NEGATIVE Urine ketones detection by automated test strip NEGATIVE NEGATIVE Urine nitrite detection by test strip NEGATIVE NEGATIVE Urine total bilirubin detection by test strip NEGATIVE NEGATIVE Urine urobilinogen measurement by automated test strip (mass/volume) 1 mg/dL NORMAL Urine leukocyte esterase detection by dipstick NEGATIVE NEGATIVE Automated urine sediment erythrocyte count by microscopy (number/high power field) NONE NRG Automated urine sediment leukocyte count by microscopy (number/high power field ) NONE NRG Bacteria detection in urine sediment by light microscopy NEGATIVE NRG Squamous epithelial cells detection in urine sediment by light microscopy RARE NRG Crystals detection in urine sediment by light microscopy NONE NRG Casts detection in urine sediment by light microscopy NONE NRG Mucus detection in urine sediment by light microscopy NEGATIVE NRG Complete urinalysis with reflex to culture NO NRG Bacterial blood culture - 08/25/17 20:45 Bacterial blood culture NG NRG Serum or plasma lactate measurement (moles/volume) - 08/25/17 21:26 Serum or plasma lactate measurement (moles/volume) 1.55 mmol/L 0.50-2.00 PT panel in platelet poor plasma by coagulation assay - 08/25/17 21:26 Prothrombin time (PT) in platelet poor plasma by coagulation assay 13.5 s 12.2-14.7 INR in platelet poor plasma or blood by coagulation assay 1.0 0.8-1.4 Activated partial thromboplastin time (aPTT) in platelet poor plasma bycoagulation assay - 08/25/17 21:26 Activated partial thromboplastin time (aPTT) in platelet poor plasma bycoagulation assay 38 s 24-35 Complete blood count (CBC) with automated white blood cell (WBC) differential - 09/09/17 02:40 Blood leukocytes automated count (number/volume) 9.3 10*3/uL 4.3-11.0 Blood erythrocytes automated count (number/volume) 4.46 10*6/uL 4.35-5.85 Venous blood hemoglobin measurement (mass/volume) 14.6 g/dL 13.3-17.7 Blood hematocrit (volume fraction) 41 % 40-54 Automated erythrocyte mean corpuscular volume 92 [foz_us] 80-99 Automated erythrocyte mean corpuscular hemoglobin (mass per erythrocyte) 33 pg 25-34 Automated erythrocyte mean corpuscular hemoglobin concentration measurement ( mass/volume) 36 g/dL 32-36 Automated erythrocyte distribution width ratio 12.8 % 10.0-14.5 Automated blood platelet count (count/volume) 335 10*3/uL 130-400 Automated blood platelet mean volume measurement 9.7 [foz_us] 7.4-10.4 Automated blood neutrophils/100 leukocytes 89 % 42-75 Automated blood lymphocytes/100 leukocytes 6 % 12-44 Blood monocytes/100 leukocytes 5 % 0-12 Automated blood eosinophils/100 leukocytes 0 % 0-10 Automated blood basophils/100 leukocytes 0 % 0-10 Blood neutrophils automated count (number/volume) 8.2 10*3 1.8-7.8 Blood lymphocytes automated count (number/volume) 0.6 10*3 1.0-4.0 Blood monocytes automated count (number/volume) 0.5 10*3 0.0-1.0 Automated eosinophil count 0.0 10*3/uL 0.0-0.3 Automated blood basophil count (count/volume) 0.0 10*3/uL 0.0-0.1 PT panel in platelet poor plasma by coagulation assay - 09/09/17 02:40 Prothrombin time (PT) in platelet poor plasma by coagulation assay 14.1 s 12.2-14.7 INR in platelet poor plasma or blood by coagulation assay 1.1 0.8-1.4 Activated partial thromboplastin time (aPTT) in platelet poor plasma bycoagulation assay - 09/09/17 02:40 Activated partial thromboplastin time (aPTT) in platelet poor plasma bycoagulation assay 44 s 24-35 Blood manual differential performed detection - 09/09/17 02:40 Blood monocytes/100 leukocytes 4 % [facility] Manual blood segmented neutrophils/100 leukocytes 89 % NR Blood band neutrophils/100 leukocytes 1 % NR Manual blood lymphocytes/100 leukocytes 6 % NR Manual eosinophils/100 leukocytes in nose 0 % [facility] Manual blood basophils/100 leukocytes 0 % [facility] Blood poikilocytosis detection by light microscopy SLIGHT [facility] Comprehensive metabolic panel - 09/09/17 02:40 Serum or plasma sodium measurement (moles/volume) 135 mmol/L 135-145 Serum or plasma potassium measurement (moles/volume) 4.2 mmol/L 3.6-5.0 Serum or plasma chloride measurement (moles/volume) 104 mmol/L 98-107 Carbon dioxide 13 mmol/L 21-32 Serum or plasma anion gap determination (moles/volume) 18 mmol/L 5-14 Serum or plasma urea nitrogen measurement (mass/volume) 31 mg/dL 7-18 Serum or plasma creatinine measurement (mass/volume) 2.01 mg/dL 0.60-1.30 Serum or plasma urea nitrogen/creatinine mass ratio 15 NRG Serum or plasma creatinine measurement with calculation of estimated glomerular filtration rate 40 NRG Serum or plasma glucose measurement (mass/volume) 126 mg/dL 70-105 Serum or plasma calcium measurement (mass/volume) 9.8 mg/dL 8.5-10.1 Serum or plasma total bilirubin measurement (mass/volume) 0.4 mg/dL 0.1-1.0 Serum or plasma alkaline phosphatase measurement (enzymatic activity/volume) 82 U/L 40-136 Serum or plasma aspartate aminotransferase measurement (enzymatic activity/ volume) 29 U/L 5-34 Serum or plasma alanine aminotransferase measurement (enzymatic activity/volume ) 51 U/L 0-55 Serum or plasma protein measurement (mass/volume) 6.9 g/dL 6.4-8.2 Serum or plasma albumin measurement (mass/volume) 4.1 g/dL 3.2-4.5 Serum or plasma troponin i.cardiac measurement (mass/volume) - 09/09/17 02:40 Serum or plasma troponin i.cardiac measurement (mass/volume) < ng/ mL <0.30 Serum or plasma lithium measurement (moles/volume) - 09/09/17 02:40 BNP level 17.1 pg/mL <100.0 Blood lactic acid measurement (moles/volume) - 09/09/17 02:50 Blood lactic acid measurement (moles/volume) 3.54 mmol/L 0.50-2.00 Bacterial blood culture - 09/09/17 02:50 QUANTITY OF GROWTH . NRG Bacterial blood culture SEE COMMEN NR Complete urinalysis with reflex to culture - 09/09/17 03:17 Urine color determination YELLOW NRG Urine clarity determination CLEAR NRG Urine pH measurement by test strip 5 5-9 Specific gravity of urine by test strip 1.025 1.016- 1.022 Urine protein assay by test strip, semi-quantitative 1+ NEGATIVE Urine glucose detection by automated test strip NEGATIVE NEGATIVE Erythrocytes detection in urine sediment by light microscopy NEGATIVE NEGATIVE Urine ketones detection by automated test strip 1+ NEGATIVE Urine nitrite detection by test strip NEGATIVE NEGATIVE Urine total bilirubin detection by test strip NEGATIVE NEGATIVE Urine urobilinogen measurement by automated test strip (mass/volume) NORMAL NORMAL Urine leukocyte esterase detection by dipstick NEGATIVE NEGATIVE Automated urine sediment erythrocyte count by microscopy (number/high power field) NONE NRG Automated urine sediment leukocyte count by microscopy (number/high power field ) NONE NRG Bacteria detection in urine sediment by light microscopy TRACE NRG Squamous epithelial cells detection in urine sediment by light microscopy 0-2 NRG Crystals detection in urine sediment by light microscopy PRESENT NRG Casts detection in urine sediment by light microscopy PRESENT NRG Mucus detection in urine sediment by light microscopy MODERATE NRG Complete urinalysis with reflex to culture NO NRG Hyaline casts detection in urine sediment by light microscopy >50 NRG Calcium oxalate crystals detection in urine sediment by light microscopy FEW NRG Serum or plasma lactate measurement (moles/volume) - 09/09/17 04:45 Serum or plasma lactate measurement (moles/volume) 2.23 mmol/L 0.50-2.00 Capillary blood glucose measurement by glucometer (mass/volume) - 09/09/17 11: 01 Capillary blood glucose measurement by glucometer (mass/volume) 231 mg/dL 70-110 Capillary blood glucose measurement by glucometer (mass/volume) - 09/09/17 16: 24 Capillary blood glucose measurement by glucometer (mass/volume) 168 mg/dL 70-110 Capillary blood glucose measurement by glucometer (mass/volume) - 09/09/17 20: 53 Capillary blood glucose measurement by glucometer (mass/volume) 234 mg/dL 70-110 Capillary blood glucose measurement by glucometer (mass/volume) - 09/10/17 05: 26 Capillary blood glucose measurement by glucometer (mass/volume) 58 mg/dL 70-110 Whole blood basic metabolic panel - 09/10/17 05:53 Serum or plasma sodium measurement (moles/volume) 135 mmol/L 135-145 Serum or plasma potassium measurement (moles/volume) 4.0 mmol/L 3.6-5.0 Serum or plasma chloride measurement (moles/volume) 109 mmol/L 98-107 Carbon dioxide 17 mmol/L 21-32 Serum or plasma anion gap determination (moles/volume) 9 mmol/L 5-14 Serum or plasma urea nitrogen measurement (mass/volume) 23 mg/dL 7-18 Serum or plasma creatinine measurement (mass/volume) 1.36 mg/dL 0.60-1.30 Serum or plasma urea nitrogen/creatinine mass ratio 17 NRG Serum or plasma creatinine measurement with calculation of estimated glomerular filtration rate > NRG Serum or plasma glucose measurement (mass/volume) 68 mg/dL 70-105 Serum or plasma calcium measurement (mass/volume) 8.1 mg/dL 8.5-10.1 Capillary blood glucose measurement by glucometer (mass/volume) - 09/10/17 06: 21 Capillary blood glucose measurement by glucometer (mass/volume) 85 mg/dL 70-110 Encounters ACCT No. Visit Date/Time Discharge Status Pt. Type Provider Facility Loc./Unit Complaint [id number] 08/06/2015 13:09:00 08/06/2015 13:09:00 DIS Outpatient HENRIK RIGGINS [facility] LAB [id number] 05/14/2015 07:59:00 05/14/2015 07:59:00 DIS Outpatient HENRIK RIGGINS [facility] LAB [id number] 03/21/2015 08:58:00 03/21/2015 08:58:00 CAN Outpatient HENRIK RIGGINS [facility] LAB [id number] 01/04/2015 12:12:00 01/05/2015 10:00:00 DIS Inpatient YOMI RAMESH [facility] OBS [id number] 11/29/2014 10:59:00 11/29/2014 23:59:59 CLS Outpatient HENRIK RIGGINS [facility] LAB [id number] 10/04/2014 10:38:00 10/04/2014 10:38:00 DIS Outpatient HENRIK RIGGINS [facility] LAB [id number] 08/09/2014 12:04:00 08/09/2014 12:04:00 DIS Outpatient HENRIK RIGGINS [facility] LAB [id number] 2014 13:05:00 2014 13:05:00 DIS Outpatient RIGGINSHENRIK [facility] LAB [id number] 01/18/2014 06:11:00 01/18/2014 06:11:00 DIS Outpatient YOMI RAMESH [facility] RAD [id number] 12/30/2013 19:57:00 12/31/2013 09:25:00 DIS Inpatient ALVIN STERLING [facility] OBS [id number] 12/29/2013 12:04:00 12/29/2013 12:04:00 DIS Outpatient GILSON HENRIK Nancy [facility] LAB [id number] 11/22/2013 12:33:00 11/22/2013 12:33:00 DIS Outpatient NON STAFF, [facility] [place] [facility] RAD [id number] 02/26/2015 00:00:00 Document Registration [id number] 02/26/2015 00:00:00 Document Registration [id number] 02/26/2014 00:00:00 Document Registration [id number] 02/26/2014 00:00:00 Document Registration [id number] 02/26/2014 00:00:00 Document Registration [id number] 02/26/2014 00:00:00 Document Registration [id number] 02/26/2014 00:00:00 Document Registration [id number] 02/26/2013 00:00:00 Document Registration [id number] 02/26/2013 00:00:00 Document Registration [id number] 02/26/2013 00:00:00 Document Registration [id number] 02/26/2013 00:00:00 Document Registration [id number] 02/26/2013 00:00:00 Document Registration [id number] 04/24/2016 10:52:00 04/24/2016 23:59:59 CLS Outpatient PEDRO ARAUJO, [facility] PAINCLINIC RT GROIN PAIN [id number] 08/09/2017 20:47:00 08/09/2017 22:25:00 DIS Outpatient [facility] [place] [id number] 08/09/2017 22:37:46 Document Registration [id number] 08/25/2017 19:10:00 08/25/2017 23:44:00 DIS Outpatient MELVIN BLANCO DO [facility] ER BP LOW;DIZZINESS [id number] 05/14/2016 13:28:00 05/14/2016 23:59:59 CLS Outpatient STEF JOE MD [facility] CARD HTN,OBESITY [id number] 09/09/2017 02:50:00 Document Registration [id number] 12/29/2010 09:11:00 Document Registration [id number] 12/20/2010 15:05:00 Document Registration [id number] 08/18/2017 17:13:15 ACT Unknown Dagoberto ARAUJO, Yomi [id number] 02/24/2017 10:07:00 Document Registration [id number] 10/15/2015 20:13:30 10/15/2015 23:59:59 CLS Outpatient HENRIK MCCARTHY [id number] 07/21/2017 12:57:34 07/21/2017 23:59:59 DIS Outpatient HENRIK RIGGINS [facility] labwork [id number] 07/14/2017 08:30:37 07/14/2017 23:59:59 DIS Outpatient HENRIK RIGGINS [facility] RAD multiple myloma [id number] 06/27/2017 14:44:33 06/27/2017 23:59:59 DIS Outpatient HENRIK RIGGINS [facility] lab [id number] 06/25/2017 08:45:44 06/25/2017 23:59:59 DIS Outpatient HENRIK RIGGINS [facility] labwork [id number] 06/11/2017 10:29:23 06/11/2017 23:59:59 DIS Outpatient HENRIK RIGGINS [facility] labwork [id number] 02/19/2017 04:27:00 02/19/2017 05:26:00 DIS Emergency EDIE SEARS [facility] ED hernia surgery post op pain [id number] 02/18/2017 07:05:42 02/18/2017 12:25:00 DIS Outpatient EMMANUELLE VASQUEZ [facility] Surgery RAL nerve division [id number] 02/17/2017 15:40:52 02/17/2017 23:59:59 DIS Outpatient HENRIK RIGGINS [facility] labwork [id number] 02/16/2017 14:01:07 02/16/2017 23:59:59 DIS Outpatient HENRIK RIGGINS [facility] labs [id number] 11/25/2016 11:21:47 11/25/2016 23:59:59 DIS Outpatient HENRIK RIGGINS [facility] lab [id number] 11/14/2016 08:45:34 11/14/2016 23:59:59 DIS Outpatient EMMANUELLE [facility]ASQUEZ [facility] [facility] attn: rt groin, groin pain [id number] 11/14/2016 19:49:00 11/14/2016 22:00:00 DIS Emergency EDIE SEARS [facility] Possible broken rib [id number] 11/10/2016 11:09:44 11/10/2016 23:59:59 DIS Outpatient DAVIE EDIE [facility] lab [id number] 10/20/2016 14:18:14 10/20/2016 23:59:59 DIS Outpatient DENISSE WALSH [facility] r/o blood clots [id number] 07/27/2016 13:59:00 07/27/2016 23:59:59 CLS Emergency [facility] migraine [id number] 05/07/2016 22:12:57 05/07/2016 23:59:59 CLS Outpatient EDIE SEARS [facility] [id number] 05/07/2016 20:42:00 05/07/2016 22:55:00 DIS Emergency EDIE SEARS [facility] unknown [id number] 04/14/2016 17:54:00 04/14/2016 20:00:00 DIS Emergency KARTHIKEYAN BECKER [facility] chest pain [id number] 06/12/2016 14:40:24 Document Registration [id number] 05/13/2016 12:21:44 Document Registration [id number] 02/23/2017 14:10:11 Document Registration [id number] 02/23/2017 14:05:26 Document Registration [id number] 05/06/2017 14:27:00 05/06/2017 14:27:00 DIS Outpatient FREDDIE SCHAFER [id number] 08/30/2017 10:53:56 ACT Document Registration
--- OUTSIDE RECORDS SUMMARY | 2017-09-13 16:09 | XMS REPORT | Continuity of Care Document ---
Demographics x Preferred Language Unknown Marital Status Unknown Congregational Affiliation Unknown Race Unknown Ethnic Group Unknown Author Author [facility] Organization [facility] Address Unknown Phone Unavailable Allergies Active Description Code Type Severity Reaction Onset Reported/Identified Relationship to Patient Clinical Status Yes Biaxin 8504 Drug Allergy N/A N/A Yes Codeine 1550 Drug Allergy Mild Unknown Yes Codeine 1550 Drug Allergy N/A N/A Confirmed or Verified Yes Darvocet-N 100 4878 Drug Allergy N/A N/A Yes Erythromycin Base 2755 Drug Allergy N/A N/A Yes Levaquin 98445 Drug Allergy N/ A N/A Yes niacin 1052 Drug Allergy N/A N/A Yes No known food allergies NO KNOWN FOOD ALLERG NF N/A N/A Yes Propoxyphene 1574 Drug Allergy N/A N/A Yes Darvocet-N 50 Drug N/A N/A Yes erythromycin Drug N/A N/A Yes Levaquin Drug N/A N/A Yes niacin Drug N/A N/ A Yes NKDA - NO KNOWN DRUG ALLERGIES [id number] CLASS N/A N/A Yes CODEINE SULFATE SEVERE DERMATOLOGICAL - HIV Yes ERYTHROMYCIN SEVERE DERMATOLOGICAL - HIV Yes LEVAQUIN SEVERE DERMATOLOGICAL - HIV Yes NIACIN SEVERE DERMATOLOGICAL - HIV Yes codeine Drug Allergy Unknown N/A 10/09/2015 Yes erythromycin Drug Allergy Unknown N/A 10/09/2015 Yes Levaquin Drug Allergy Unknown N/A 10/09/2015 Yes codeine [id number] Drug Allergy Unknown N/A 08/25/2017 Yes DARVOCET DARVOCET Unknown N/A 08/25/2017 Yes ERYTHROMYCIN ERYTHROMYCIN Unknown N/A 08/25/2017 Yes levofloxacin [id number] Drug Allergy Unknown N/A 08/25/2017 Yes niacin [id number] Drug Allergy Unknown N/A 08/25/2017 Medications Medication [...] DO Ot I25.10 ATHSCL HEART DISEASE OF [place] CORONARY 08/27/2017 MELVIN BLANCO DO Ot I25.2 [...] Procedures Code [place] [address] DRAW BLOOD OFF VENOUS DEVICE 12/29/2013 74491 COMPREHEN METABOLIC PANEL 12/29/2013 77321 LACTATE (LD) (LDH) ENZYME 12/29/2013 96281 ASSAY OF MAGNESIUM 12/29/2013 24764 ASSAY, NEPHELOMETRY NOT SPEC 12/29/2013 94071 ASSAY OF PHOSPHORUS 12/29/2013 34154 COMPLETE CBC W/AUTO DIFF WBC 12/29/2013 J1642 INJ HEPARIN SODIUM PER 10 U 12/29/2013 65025 DRAW BLOOD OFF VENOUS DEVICE 05/14/2015 85237 COMPREHEN METABOLIC PANEL 05/14/2015 57649 ASSAY, NEPHELOMETRY NOT SPEC 05/14/2015 68491 BL SMEAR W/DIFF WBC COUNT 05/14/2015 34949 COMPLETE CBC, AUTOMATED 05/14/2015 J1642 INJ HEPARIN SODIUM PER 10 U 05/14/2015 35218 DRAW BLOOD OFF VENOUS DEVICE 08/06/2015 31673 COMPREHEN METABOLIC PANEL 08/06/2015 35010 COMPLETE CBC W/AUTO DIFF WBC 08/06/2015 J1642 INJ HEPARIN SODIUM PER 10 U 08/06/2015 00445 Office or other outpatient visit for the evaluation and management of a new patient, which requires HENRIK MCCARTHY 10/11/2015 80284 Office or other outpatient visit for the evaluation and management of a new patient, which requires HENRIK MCCARTHY 01/30/2016 76627 COMPLETE CBC W/AUTO DIFF WBC FREDDIE SCHAFER [...] 3.4 10^3u 4.8-10.8 SEGS 62.0 % 40-70 [facility] - 10/09/13 00:00 ALB 3.3 G/DL [...] 09/09/17 02:40 Blood monocytes/100 leukocytes 4 % [facility] Manual blood segmented neutrophils/100 leukocytes 89 % NR Blood band neutrophils/100 leukocytes 1 % NR Manual blood lymphocytes/100 leukocytes 6 % NR Manual eosinophils/100 leukocytes in nose 0 % [facility] Manual blood basophils/100 leukocytes 0 % [facility] Blood poikilocytosis detection by light microscopy SLIGHT [facility] Comprehensive metabolic panel - 09/09/17 [...] Status Pt. Type Provider Facility Loc./Unit Complaint [id number] 08/06/2015 13:09:00 08/06/2015 13:09:00 DIS Outpatient HENRIK RIGGINS [facility] LAB [id number] 05/14/2015 07:59:00 05/14/2015 07:59:00 DIS Outpatient HENRIK RIGGINS [facility] LAB [id number] 03/21/2015 08:58:00 03/21/2015 08:58:00 CAN Outpatient HENRIK RIGGINS [facility] LAB [id number] 01/04/2015 12:12:00 01/05/2015 10:00:00 DIS Inpatient YOMI RAMESH [facility] OBS [id number] 11/29/2014 10:59:00 11/29/2014 23:59:59 CLS Outpatient HENRIK RIGGINS [facility] LAB [id number] 10/04/2014 10:38:00 10/04/2014 10:38:00 DIS Outpatient HENRIK RIGGINS [facility] LAB [id number] 08/09/2014 12:04:00 08/09/2014 12:04:00 DIS Outpatient HENRIK RIGGINS [facility] LAB [id number] 2014 13:05:00 2014 13:05:00 DIS Outpatient RIGGINSHENRIK [facility] LAB [id number] 01/18/2014 06:11:00 01/18/2014 06:11:00 DIS Outpatient YOMI RAMESH [facility] RAD [id number] 12/30/2013 19:57:00 12/31/2013 09:25:00 DIS Inpatient ALVIN STERLNIG [facility] OBS [id number] 12/29/2013 12:04:00 12/29/2013 12:04:00 DIS Outpatient GILSON HENRIK Nancy [facility] LAB [id number] 11/22/2013 12:33:00 11/22/2013 12:33:00 DIS Outpatient NON STAFF, [facility] [place] [facility] RAD [id number] 02/26/2015 00:00:00 Document Registration [id number] 02/26/2015 00:00:00 Document Registration [id number] 02/26/2014 00:00:00 Document Registration [id number] 02/26/2014 00:00:00 Document Registration [id number] 02/26/2014 00:00:00 Document Registration [id number] 02/26/2014 00:00:00 Document Registration [id number] 02/26/2014 00:00:00 Document Registration [id number] 02/26/2013 00:00:00 Document Registration [id number] 02/26/2013 00:00:00 Document Registration [id number] 02/26/2013 00:00:00 Document Registration [id number] 02/26/2013 00:00:00 Document Registration [id number] 02/26/2013 00:00:00 Document Registration [id number] 04/24/2016 10:52:00 04/24/2016 23:59:59 CLS Outpatient PEDRO ARAUJO, [facility] PAINCLINIC RT GROIN PAIN [id number] 08/09/2017 20:47:00 08/09/2017 22:25:00 DIS Outpatient [facility] [place] [id number] 08/09/2017 22:37:46 Document Registration [id number] 08/25/2017 19:10:00 08/25/2017 23:44:00 DIS Outpatient MELVIN BLANCO DO [facility] ER BP LOW;DIZZINESS [id number] 05/14/2016 13:28:00 05/14/2016 23:59:59 CLS Outpatient STEF JOE MD [facility] CARD HTN,OBESITY [id number] 09/09/2017 02:50:00 Document Registration [id number] 12/29/2010 09:11:00 Document Registration [id number] 12/20/2010 15:05:00 Document Registration [id number] 08/18/2017 17:13:15 ACT Unknown Dagoberto ARAUJO, Yomi [id number] 02/24/2017 10:07:00 Document Registration [id number] 10/15/2015 20:13:30 10/15/2015 23:59:59 CLS Outpatient HENRIK MCCARTHY [id number] 07/21/2017 12:57:34 07/21/2017 23:59:59 DIS Outpatient HENRIK RIGGINS [facility] labwork [id number] 07/14/2017 08:30:37 07/14/2017 23:59:59 DIS Outpatient HENRIK RIGGINS [facility] multiple myloma [id number] 06/27/2017 14:44:33 06/27/2017 23:59:59 DIS Outpatient HENRIK RIGGINS [facility] lab [id number] 06/25/2017 08:45:44 06/25/2017 23:59:59 DIS Outpatient HENRIK RIGGINS [facility] labwork [id number] 06/11/2017 10:29:23 06/11/2017 23:59:59 DIS Outpatient HENRIK RIGGINS [facility] labwork [id number] 02/19/2017 04:27:00 02/19/2017 05:26:00 DIS Emergency EDIE SEARS [facility] hernia surgery post op pain [id number] 02/18/2017 07:05:42 02/18/2017 12:25:00 DIS Outpatient EMMANUELLE VASQUEZ [facility] RAL nerve division [id number] 02/17/2017 15:40:52 02/17/2017 23:59:59 DIS Outpatient HENRIK RIGGINS [facility] labwork [id number] 02/16/2017 14:01:07 02/16/2017 23:59:59 DIS Outpatient HENRIK RIGGINS [facility] labs [id number] 11/25/2016 11:21:47 11/25/2016 23:59:59 DIS Outpatient HENRIK RIGGINS [facility] lab [id number] 11/14/2016 08:45:34 11/14/2016 23:59:59 DIS Outpatient EMMANUELLE VASQUEZ [facility] attn: rt groin, groin pain [id number] 11/14/2016 19:49:00 11/14/2016 22:00:00 DIS Emergency EDIE SEARS [facility] Possible broken rib [id number] 11/10/2016 11:09:44 11/10/2016 23:59:59 DIS Outpatient DAVIE EDIE [facility] lab [id number] 10/20/2016 14:18:14 10/20/2016 23:59:59 DIS Outpatient DENISSE WALSH [facility] r/o blood clots [id number] 07/27/2016 13:59:00 07/27/2016 23:59:59 CLS Emergency [facility] migraine [id number] 05/07/2016 22:12:57 05/07/2016 23:59:59 CLS Outpatient EDIE SEARS [facility] [id number] 05/07/2016 20:42:00 05/07/2016 22:55:00 DIS Emergency EDIE SEARS [facility] unknown [id number] 04/14/2016 17:54:00 04/14/2016 20:00:00 DIS Emergency KARTHIKEYAN BECKER [facility] chest pain [id number] 06/12/2016 14:40:24 Document Registration [id number] 05/13/2016 12:21:44 Document Registration [id number] 02/23/2017 14:10:11 Document Registration [id number] 02/23/2017 14:05:26 Document Registration [id number] 05/06/2017 14:27:00 05/06/2017 14:27:00 DIS Outpatient FREDDIE SCHAFER [id number] 08/30/2017 10:53:56 ACT Document Registration
[2017-09-13] MEDS: morphine INJ 4 MG/ML 1 ML (VIAL/SYRINGE) IV PRN (20:07)
[2017-09-13] MEDS ORDERED: inSUlin DETERMIR 1 UNIT/0.01 ML (LEVEMIR) CHARGE PER UNIT SQ SCH (21:00)
[2017-09-13] MEDS ORDERED: ATORVASTATIN 40 MG (LIPITOR) TABLET PO SCH (21:00)
[2017-09-14] VITALS: BP 145/96
[2017-09-14] MEDS: morphine INJ 4 MG/ML 1 ML (VIAL/SYRINGE) IV PRN (02:18)
[2017-09-14 04:00] VITALS: BP 143/88
[2017-09-14] MEDS: NS IV 1000 ML 1,000 ML IV SCH (05:35)
[2017-09-14] MEDS: inSUlin ASPART (NovoLOG) 1 UNIT/0.01 ML (CHARGE PER UNIT) SC SCH (07:06)
[2017-09-14 08:00] VITALS: BP 110/57
[2017-09-14] MEDS: HYDROcodone/APAP 7.5 MG/325 MG (LORTAB, LORCET PLUS) TABLET PO SCH (08:18)
[2017-09-14] MEDS: ASPIRIN E.C. 81 MG (ECOTRIN) TAB PO SCH (08:18)
[2017-09-14] MEDS: ACYCLOVIR 400 MG TABLET (ZOVIRAX) PO SCH (08:18)
[2017-09-14] MEDS: lisINopril 5 MG (PRINIVIL) TABLET PO SCH (08:18)
[2017-09-14] MEDS: GABAPENTIN 300 MG (NEURONTIN) CAP PO SCH (08:18)
--- NOTE | 2017-09-14 08:55 | Cardiology Progress Note ---
Subjective Date Seen by Provider: Sep 14, 2017 Time Seen by Provider: 08:53 Subjective/Events-last exam Patient is feeling better, no new complaint, no chest pain or shortness of breath Review of Systems General: No Chills, No Night Sweats, No Fatigue, No Malaise, No Appetite, No Other HEENT: No Head Aches, No Visual Changes, No Eye Pain, No Ear Pain, No Dysphasia , No Sinus Congestion, No Post Nasal Drip, No Sore Throat, No Other Pulmonary: No Dyspnea, No Cough, No Pleuritic Chest Pain, No Other Cardiovascular: No: Chest Pain, Palpitations, Orthopnea, Paroxysmal Noc. Dyspnea, Edema, Lt Headedness, Other Objective-Cardiology Exam Last Set of Vital Signs Vital Signs Capillary Refill : Less Than 3 Seconds I&O Intake and Output 09/14/17 00:00 Intake Total 2000 ml Balance 2000 ml Intake Oral 1000 ml IV Total 1000 ml # Voids 3 Daily Weight Change Yes, 2-13 lbs General: Alert, Oriented X3, Cooperative HEENT: Atraumatic, PERRLA Neck: Supple, No JVD, No Thyromegaly Lungs: Clear to Auscultation, Normal Air Movement Heart: Regular Rate, Normal S1, Normal S2, No Murmurs Abdomen: Normal Bowel Sounds, Soft, No Tenderness, No Hepatosplenomegaly, No Masses Extremities: No Clubbing, No Cyanosis, No Edema, Normal Pulses, No Tenderness/ Swelling Skin: No Rashes, No Breakdown, No Significant Lesion Neuro: Normal Gait, Normal Speech, Strength at 5/5 X4 Ext, Normal Tone, Sensation Intact Psych/Mental Status: Mental Status NL, Mood NL Results Lab Laboratory Tests Test 09/13/17 12:48 09/13/17 15:54 09/13/17 20:13 09/14/17 06:13 Range/Units Glucometer 159 H 219 H 111 H 66 L 70-110 MG/DL A/P-Cardiology Admission Diagnosis Unstable angina Dyspnea on exertion Coronary artery disease Hyperlipidemia Assessment/Plan Chest pain, unstable angina, reporting improvement, Cardiac catheterization showed normal coronaries, groin is healing well. Planning to discharge Dyspnea on exertion, reporting improvement. Dizziness and lightheadedness, history of syncope, reporting improvement, no further syncopal episodes were reported. Continue to monitor at this time Coronary artery disease, history of myocardial infarction about 10 years ago, had a stent placed, another 2 MIs in the past. Cardiac catheterization showed patent stent in the right coronary artery with mild disease otherwise. No obstructive disease Hypotension, questionable history of hypertension, was in renal failure, blood pressure is better at this time. Status post acute renal failure, hospitalized with dehydration and acute renal failure. Continue to monitor renal function Hyperlipidemia, maintained on simvastatin the past. It was recently discontinued secondary to leg cramps. Patient reports he also had DELON which was within normal limits. Continue to monitor History of tobaccoism, illicit drug use. Educated on avoiding any illicit drugs or tobacco product. Patient expressed that he has stopped using drugs for a long period of time. History of multiple myeloma, was in remission until recently, restarted on chemotherapy. Diabetes mellitus-managed by primary care physician. Unable to tolerate LINO or ARB secondary to hypotension. Gastroesophageal reflux disease Clinical Quality Measures AMI/AHF: ASA po Prior to arrival: No DVT/VTE Risk/Contraindication: Risk Factor Score Per Nursin RFS Level Per Nursing on Admit: 4+=Very High STEF JOE MD Sep 14, 2017 08:55
[2017-09-14] MEDS ORDERED: METO-387 PO (08:57)
[2017-09-14] MEDS ORDERED: LISI-556 PO (08:57)
--- NOTE | 2017-09-14 08:57 | Discharge Inst-Post CATH ---
Discharge Inst-CATH Post Cardiac Cath D/C Inst Follow Up/Plan Appointment with Dr. Stuart's office in 4-6 weeks CARDIAC CATH DISCHARGE INSTRUCTIONS *Hold Metformin for 48 hours post heart cath. ACTIVITY * Go Home directly and rest. * Limit activity of the leg (or wrist if it was used) for 7 days including aerobics, swimming, jogging, bicycling, etc. * Restrict stair-climbing for 7 days if possible, if not, climb up with your non -cath leg, then bring together on the same step. * Avoid lifting, pushing, pulling or excessive movement of the affected extremity for 7 days. * Customary sexual activity may be resumed after 2 days-use caution not to use a position that strains or causes pain to the affected extremity. * No driving for 24 hours. * NO SMOKING. * Avoid straining for bowel movements for 7 days. * Gentle walking on level ground is allowed. * Returning to work will depend on the type of procedure and the results. Your doctor will discuss this with you. CALL YOUR DOCTOR FOR ANY OF THE FOLLOWING: *If bleeding from the puncture site occurs- Apply gentle pressure to site with clean cloth and call your doctor or EMS. * If a knot or lump forms under the skin, increases in size, or causes pain. * If bruising appears to be worsening or moving further down your leg instead of disappearing. * Temperature above 101 F. CARE OF YOUR GROIN INCISION; * Bruising or purple discoloration of the skin near the puncture site is common. * You may shower only, no bathtub bathing for 5 days. Be careful to avoid slipping as your leg may feel stiff. * If a closure device was used on your femoral artery, please see the attached guide regarding care of the device and your leg. * REMOVE the dressing from your groin the next day after your procedure in the shower. CARE OF YOUR WRIST INCISION; * Bruising or purple discoloration of the skin near the puncture site is common. * You may shower. * DO NOT submerge wrist. * Remove dressing in 24 hours. STEF STUART MD Sep 14, 2017 08:57
--- NOTE | 2017-09-14 11:17 | Clinic Account Progress/Dx ---
Clinic Account Progress/Dx DIAGNOSIS: Date Seen by Provider: Sep 14, 2017 Time Seen by Provider: 09:00 Anterior chest wall pain Dyspnea on exertion Coronary artery disease Hyperlipidemia STEF JOE MD Sep 14, 2017 11:17 am
--- OUTSIDE RECORDS SUMMARY | 2017-09-15 13:55 | XMS REPORT | Clinical Summary ---
Author Author Admin, Kaylynn Organization [facility] Address Unknown Phone Unavailable Allergies, Adverse Reactions, Alerts Allergy Name Reaction Description Start Date Severity Status Provider ERYTHROMYCIN Stomach cramps Moderate Active Prosper Arenas MD CODEINE Critical Active Maliheh Ziglari QUALITY IMPROVEMENT ENGINEER DARVOCET Critical Active Maliheh Ziglari QUALITY IMPROVEMENT ENGINEER LEVAQUIN Critical Active Maliheh Ziglari QUALITY IMPROVEMENT ENGINEER Conditions or Problems Problem Name Problem Code Onset Date Status Entry Date Provider Comment Standard Description Annotate Diabetes, Type 2 250.00 Resolved 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 mellitus without mention of complication, type [...] type II, uncontrolled 250.02 Active Maliheh Rodrigoglari QUALITY IMPROVEMENT ENGINEER Diabetes mellitus without mention of complication, [...] with hyperglycemia 250.00 Active 03/21 Maliheh Ziglari QUALITY IMPROVEMENT ENGINEER Diabetes mellitus without mention of complication, type II or unspecified type, not stated as uncontrolled senior care use of insulin treatment V58.67 Active Luxiheh Rodrigoglari QUALITY IMPROVEMENT ENGINEER Long-term (current) use of insulin Diabetes mellitus, type II with hypoglycemia 250.80 Active 07/22 Maliheh Ziglari QUALITY IMPROVEMENT ENGINEER Diabetes mellitus with other specified manifestations, type II or unspecified type, not stated as uncontrolled 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 Maliheh Ziglari QUALITY IMPROVEMENT ENGINEER Diabetes mellitus with renal manifestations, type II or unspecified type, not stated as uncontrolled Wellness exam V70.0 Active Dee Palmer APRN Routine general medical examination at a health care facility Fitting and adjustment of vascular catheter V58.81 Active 02/06 Dee Palmer APRN Encounter for fitting and adjustment of vascular catheter Unawareness of hypoglycemia in diabetes mellitus, type II 250.80 Active Maliheh Rodrigoglari QUALITY IMPROVEMENT ENGINEER Diabetes mellitus with other specified manifestations, [...] specified as recurrent) Gastritis Inactive Maliheh Rodrigoglrex QUALITY IMPROVEMENT ENGINEER Unspecified gastritis and gastroduodenitis, without mention of hemorrhage Cough 786.2 Active Dee Palmer APRN Cough Multiple myeloma, in relapse 203.02 Active Lexus To LRT Multiple myeloma in relapse Body Mass Index 26.0-26.9 Adult Active Prosper Arenas MD Body Mass Index 26.0-26.9, adult Major depressive disorder, single episode, moderate 296.20 Active Prosper Arenas MD Major depressive disorder, single episode, unspecified degree Diabetes, Type 2 ICD-250.00 Inactive Mekhi Dukes [...] Generic Name NDC Status Provider Patient Instruction CITALOPRAM HYDROBROMIDE 20 MG ORAL TABLET 1 daily for depression CITALOPRAM HYDROBROMIDE 11248767263 Active Prosper Arenas MD Active PREDNISONE 20 MG ORAL TABLET 2 tabs daily for 4 days, 1 tab daily for 4 days, 1/2 tab daily for 4 days PREDNISONE 03933857573 No Longer Active Prosper Arenas MD Active AZITHROMYCIN 250 MG ORAL TABLET 2 po qd x 1 day, then 1 po qd x 4 days 05/07 AZITHROMYCIN 98805801438 No Longer Active Dee Palmer APRN Active GUAIFENESIN DM 400-20 MG ORAL TABLET 1 pill by mouth twice daily, if needed for cough DEXTROMETHORPHAN-GUAIFENESIN 73774671322 Active Dee Palmer APRN Active ASPIRIN 81 MG ORAL TABLET 1 po qd ASPIRIN 35322729258 Active Dee Palmer APRN Active CALCIUM 500/D 500-200 MG-UNIT ORAL TABLET one tablet daily CALCIUM CARBONATE-VITAMIN D 73590753976 No Longer Active Dee Palmer APRN Active HYDROCODONE-ACETAMINOPHEN 7.5-325 MG ORAL TABLET 1-2 every 4-6 hrs prn 02/25 HYDROCODONE-ACETAMINOPHEN 71068356481 Active Marina King BESSY Active ASPIRIN 81 MG ORAL TABLET 1 tablet by mouth daily ASPIRIN 22412704591 No Longer Active Marina King BESSY Active SIMVASTATIN 80 MG ORAL TABLET 1/2 tablet daily SIMVASTATIN 55385983045 No Longer Active Mekhi Dukes MD Active OMEPRAZOLE 20 MG ORAL CAPSULE DELAYED RELEASE 1 qd OMEPRAZOLE 46237832128 No Longer Active Mekhi Dukes MD Active METOPROLOL TARTRATE 25 MG ORAL TABLET 1/2 tablet twice a day METOPROLOL TARTRATE 14444311944 No Longer Active Mekhi Dukes MD Active LISINOPRIL 5 MG ORAL TABLET 1 daily LISINOPRIL 01980481837 No Longer Active Mekhi Dukes MD Active NOVOLOG FLEXPEN 100 UNIT/ML SUBCUTANEOUS SOLUTION PEN-INJECTOR Take 8 units with each meal, add 1u/50 for blood sugars above 150. INSULIN ASPART 05949624494 Active Moy PARISH Active GABAPENTIN 300 MG ORAL CAPSULE 1 tab BID GABAPENTIN 06975870949 Active Tami Miller RN Active PREDNISONE 20 MG ORAL TABLET Take 2 daily for 3 days and then 1 daily for 3 days PREDNISONE 09126233991 No Longer Active Malpapo Wallaceglrex DURANTP Active BENZONATATE 200 MG ORAL CAPSULE Take 1 tablet 3 times a day as needed for cough BENZONATATE 55448917258 No Longer Active Prosper Arenas MD Active HYDROCHLOROTHIAZIDE 25 MG ORAL TABLET 1 tablet by mouth daily HYDROCHLOROTHIAZIDE 94988924654 No Longer Active Prosper Arenas MD Active ACCU-CHEK JOANNA PLUS IN VITRO STRIP check blood sugars 5x a day, before each meal and bedtime and 15 minutes after treating a low blood. sugar GLUCOSE BLOOD 43747500416 Active Maliheh Ziglari QUALITY IMPROVEMENT ENGINEER Active LANTUS SOLOSTAR 100 UNIT/ML SUBCUTANEOUS SOLUTION PEN-INJECTOR Take 40 units at 7-8pm daily INSULIN GLARGINE 04690909876 Active Maliheh Ziglari QUALITY IMPROVEMENT ENGINEER Active MECLIZINE HCL 25 MG ORAL TABLET 1 daily needed for dizziness 2015 MECLIZINE HCL 03416692637 No Longer Active Maliheh Ziglari QUALITY IMPROVEMENT ENGINEER Active BENZONATATE 200 MG ORAL CAPSULE 1 tab, 2-3 times a day BENZONATATE 43740552648 No Longer Active Maliheh Ziglari QUALITY IMPROVEMENT ENGINEER Active HALOPERIDOL 0.5 MG ORAL TABLET one tablet three times a day HALOPERIDOL 59145560026 No Longer Active Maliheh Ziglari QUALITY IMPROVEMENT ENGINEER Active TRAZODONE HCL 50 MG ORAL TABLET three tablets at bed time TRAZODONE HCL 02156132413 No Longer Active Maliheh Ziglari QUALITY IMPROVEMENT ENGINEER Active REVLIMID 25 MG ORAL CAPSULE one capsule daily for 21 days then off for 7 days LENALIDOMIDE 09134605041 No Longer Active Maliheh Ziglari QUALITY IMPROVEMENT ENGINEER Active ZITHROMAX Z-EDDIE 250 MG ORAL TABLET 2 today, then 1 daily for 4 days AZITHROMYCIN 60854361477 No Longer Active Augustina Mata APRN Active NOVOLIN R RELION 100 UNIT/ML INJECTION SOLUTION 30- 40 units each meal sliding scale INSULIN REGULAR HUMAN 28479478459 No Longer Active Maliheh Ziglari QUALITY IMPROVEMENT ENGINEER Active HYDROCODONE-ACETAMINOPHEN 5-500 MG ORAL TABLET 1-2 FOUR TIMES A DAY, PRN 2010 HYDROCODONE-ACETAMINOPHEN 29067783568 No Longer Active Prosper Arenas MD Active DOXYCYCLINE HYCLATE 100 MG ORAL CAPSULE take one capsule by mouth twice daily for ten days DOXYCYCLINE HYCLATE 35612459684 No Longer Active Mekhi Dukes MD Active DOXYCYCLINE HYCLATE 100 MG ORAL CAPSULE take one capsule by mouth twice daily for ten days DOXYCYCLINE HYCLATE 100 MG ORAL CAPSULE 8196555 DOXYCYCLINE HYCLATE Inactive HYDROCODONE-ACETAMINOPHEN 5-500 MG ORAL [...] days ZITHROMAX Z-EDDIE 250 MG ORAL TABLET 173593 AZITHROMYCIN Inactive REVLIMID 25 MG ORAL CAPSULE one capsule daily for 21 days then off for 7 days REVLIMID 25 MG ORAL CAPSULE LENALIDOMIDE Inactive TRAZODONE HCL 50 MG ORAL TABLET three tablets at bed time TRAZODONE HCL 50 MG ORAL TABLET 273339 TRAZODONE HCL Inactive HALOPERIDOL 0.5 MG ORAL TABLET one tablet three times a day HALOPERIDOL 0.5 MG ORAL TABLET 621137 HALOPERIDOL Inactive BENZONATATE 200 MG ORAL CAPSULE 1 tab, 2-3 times a day BENZONATATE 200 MG ORAL CAPSULE 568715 BENZONATATE Inactive MECLIZINE HCL 25 MG ORAL TABLET 1 daily needed for dizziness 2015 MECLIZINE HCL 25 MG ORAL TABLET 267254 MECLIZINE HCL Inactive HYDROCHLOROTHIAZIDE 25 MG ORAL TABLET 1 tablet by mouth daily HYDROCHLOROTHIAZIDE 25 MG ORAL TABLET 188534 HYDROCHLOROTHIAZIDE Inactive PREDNISONE 20 MG ORAL TABLET Take 2 daily for 3 days and then 1 daily for 3 days PREDNISONE 20 MG ORAL TABLET 019192 PREDNISONE Inactive LISINOPRIL 5 MG ORAL TABLET 1 daily LISINOPRIL 5 MG ORAL TABLET 719196 LISINOPRIL Inactive METOPROLOL TARTRATE 25 MG ORAL TABLET 1/2 tablet twice a day METOPROLOL TARTRATE 25 MG ORAL TABLET 793636 METOPROLOL TARTRATE Inactive OMEPRAZOLE 20 MG ORAL CAPSULE DELAYED RELEASE 1 qd OMEPRAZOLE 20 MG ORAL CAPSULE DELAYED RELEASE 331479 OMEPRAZOLE Inactive SIMVASTATIN 80 MG ORAL TABLET 1/2 tablet daily SIMVASTATIN 80 MG ORAL TABLET 686461 SIMVASTATIN Inactive ASPIRIN 81 MG ORAL TABLET 1 tablet by mouth daily ASPIRIN 81 MG ORAL TABLET ASPIRIN Inactive CALCIUM 500/D 500-200 MG-UNIT ORAL TABLET one tablet daily CALCIUM 500/D 500-200 MG-UNIT ORAL TABLET CALCIUM CARBONATE-VITAMIN D Inactive PREDNISONE 20 MG ORAL TABLET 2 tabs daily for 4 days, 1 tab daily for 4 days, 1/2 tab daily for 4 days PREDNISONE 20 MG ORAL TABLET 484690 PREDNISONE Inactive BENZONATATE 200 MG ORAL CAPSULE Take 1 tablet 3 times a day as needed for cough BENZONATATE 200 MG ORAL CAPSULE 472619 BENZONATATE Inactive AZITHROMYCIN 250 MG ORAL TABLET 2 po qd x 1 day, then 1 po qd x 4 days 05/07 AZITHROMYCIN 250 MG ORAL TABLET 237538 AZITHROMYCIN Inactive Immunizations Vaccine Administration Date Value [...] Name Value Unit Range Description blood pressure, diastolic, repeated by physician 56 BP chavez blood pressure, diastolic 56 mm[Hg] BP chavez blood pressure, systolic, repeated by physician 83 BP sys blood pressure, systolic 83 mm[Hg] BP sys height E&M 65.5 [in_us] Bdy height pulse rate E&M 84 /min Heart rate temperature E&M 97.2 [degF] Body temperature weight E&M 160.50 [lb_av] Weight Measured blood pressure, diastolic 74 [...] % 11.6-14.8 platelet count 294 10^3/MM^3 10*3/mm3 976-511 5474/05/29 leukocyte count, blood 2.4 10^3/MM^3 10*3/mm3 4.6-10.2 [...] % 11.6-14.8 platelet count 138 10^3/MM^3 10*3/mm3 598-236 3471/06/12 leukocyte count, blood 4.3 10^3/MM^3 10*3/mm3 4.6-10.2 [...] % 11.6-14.8 platelet count 355 10^3/MM^3 10*3/mm3 136-263 5579/06/19 leukocyte count, blood 2.2 10^3/MM^3 10*3/mm3 4.6-10.2 neutrophils as percent of blood leukocytes 78.5 % 42.2-75.2 monocytes as percent of blood leukocytes 11.0 % 1.7-9.3 lymphocytes as percent of blood leukocytes 8.4 % 20.5-51.1 erythrocyte (RBC) count 4.22 10^6/MM^3 10*6/mm3 4.50-6.50 hemoglobin, blood 13.8 g/dL 14.0-18.0 hematocrit, blood 41.4 % 40.0-54.0 mean corpuscular volume, RBC 98 fL 80-97 mean corpuscular hemoglobin, RBC 32.7 pg 27.0-31.2 mean corpuscular hemoglobin concentration, RBC 33.3 G/DL % 31.8- 35.4 red blood cell distribution width 12.8 % 11.6-14.8 platelet count 109 10^3/MM^3 10*3/mm3 142-424 Lab Report: CBC W/DIFF, Comp. Metabolic Panel - Chemistry sodium, serum 137 mmol/L 277-183 1643/06/05 carbon dioxide, venous blood 26.0 mmol/L 21.0-32.0 potassium, serum 4.5 mmol/L 3.5-5.2 chloride, serum 100 mmol/L 98-107 blood glucose 100 mg/dL 65-95 urea nitrogen, blood 16 mg/dL 7-18 creatinine, serum 1.67 mg/dL 0.60-1.30 alanine aminotransferase (SGPT), serum 75 U/L 12-78 aspartate aminotransferase (SGOT), serum 46 U/L 15-37 calcium, serum 9.8 mg/dL 8.5-10.1 bilirubin, serum, total 0.40 mg/dL 0.00-1.00 sodium, serum 134 mmol/L 928-225 8785/05/15 carbon dioxide, venous blood 23.5 mmol/L 21.0-32.0 potassium, serum 4.8 mmol/L 3.5-5.2 chloride, serum 101 mmol/L 98-107 blood glucose 139 mg/dL 65- urea nitrogen, blood 19 mg/dL 7-18 creatinine, serum 1.79 mg/dL 0.60-1.30 alanine aminotransferase (SGPT), serum 140 U/L - aspartate aminotransferase (SGOT), serum 104 U/L 15-37 calcium, serum 8.5 mg/dL 8.5-10.1 bilirubin, serum, total 0.40 mg/dL 0.00-1.00 sodium, serum 139 mmol/L 699-335 9819/05/01 carbon dioxide, venous blood 25.2 mmol/L 21.0-32.0 potassium, serum 4.1 mmol/L 3.5-5.2 chloride, serum 104 mmol/L 98-107 blood glucose 64 mg/dL 65-95 urea nitrogen, blood 16 mg/dL 7-18 creatinine, serum 1.55 mg/dL 0.60-1.30 alanine aminotransferase (SGPT), serum 80 U/L aspartate aminotransferase (SGOT), serum 53 U/L - calcium, serum 8.1 mg/dL 8.5-10.1 bilirubin, serum, total 0.40 mg/dL 0.00-1.00 sodium, serum 135 mmol/L 491-163 4369/05/08 carbon dioxide, venous blood 29.0 mmol/L 21.0-32.0 potassium, serum 4.8 mmol/L 3.5-5.2 chloride, serum 101 mmol/L 98-107 blood glucose 165 mg/dL 65-95 urea nitrogen, blood 19 mg/dL 7-18 creatinine, serum 1.51 mg/dL 0.60-1.30 alanine aminotransferase (SGPT), serum 65 U/L aspartate aminotransferase (SGOT), serum 38 U/L calcium, serum 8.2 mg/dL 8.5-10.1 bilirubin, serum, total 0.50 mg/dL 0.00-1.00 sodium, serum 135 mmol/L 352-376 2269/04/10 carbon dioxide, venous blood 26.1 mmol/L 21.0-32.0 potassium, serum 4.2 mmol/L 3.5-5.2 chloride, serum 100 mmol/L 98-107 blood glucose 293 mg/dL 65-110 urea nitrogen, blood 18 mg/dL 7-18 creatinine, serum 2.06 mg/dL 0.60-1.30 alanine aminotransferase (SGPT), serum 59 U/L aspartate aminotransferase (SGOT), serum 47 U/L calcium, serum 8.6 mg/dL 8.5-10.1 bilirubin, serum, [...] % 11.6-14.8 platelet count 271 10^3/MM^3 10*3/mm3 743-708 8395/04/10 leukocyte count, blood 4.8 10^3/MM^3 10*3/mm3 4.6-10.2 [...] % 11.6-14.8 platelet count 200 10^3/MM^3 10*3/mm3 964-746 2086/05/15 leukocyte count, blood 1.7 10^3/MM^3 10*3/mm3 4.6-10.2 [...] % 11.6-14.8 platelet count 36 10^3/MM^3 10*3/mm3 935-880 6523/05/08 leukocyte count, blood 1.8 10^3/MM^3 10*3/mm3 4.6-10.2 [...] % 11.6-14.8 platelet count 103 10^3/MM^3 10*3/mm3 953-459 1409/06/05 leukocyte count, blood 2.7 10^3/MM^3 10*3/mm3 4.6-10.2 [...] Panel - Chemistry sodium, serum 134 mmol/L 423-325 9101/06/12 carbon dioxide, venous blood 21.9 mmol/L 21.0-32.0 potassium, serum 4.4 mmol/L 3.5-5.2 chloride, serum 97 mmol/L 98-107 blood glucose 191 mg/dL 65- urea nitrogen, blood 23 mg/dL 7- creatinine, serum 1.68 mg/dL 0.60-1.30 alanine aminotransferase (SGPT), serum 64 U/L aspartate aminotransferase (SGOT), serum 35 U/L 15- calcium, serum 8.9 mg/dL 8.5-10.1 bilirubin, serum, total 0.70 mg/dL 0.00-1.00 sodium, serum 132 mmol/L 121-687 4609/06/19 carbon dioxide, venous blood 20.9 mmol/L 21.0-32.0 potassium, serum 3.9 mmol/L 3.5-5.2 chloride, serum 102 mmol/L 98-107 blood glucose 259 mg/dL - urea nitrogen, blood 16 mg/dL - creatinine, serum 1.46 mg/dL 0.60-1.30 alanine aminotransferase (SGPT), serum 62 U/L aspartate aminotransferase (SGOT), serum 27 U/L 15- calcium, serum 7.5 mg/dL 8.5-10.1 bilirubin, serum, total 0.50 mg/dL 0.00-1.00 sodium, serum 136 mmol/L 393-292 6206/05/29 carbon dioxide, venous blood 22.4 mmol/L 21.0-32.0 potassium, serum 4.0 mmol/L 3.5-5.2 chloride, serum 104 mmol/L 98-107 blood glucose 128 mg/dL - urea nitrogen, blood 20 mg/dL - creatinine, serum 1.47 mg/dL 0.60-1.30 alanine aminotransferase (SGPT), serum 80 U/L aspartate aminotransferase (SGOT), serum 38 U/L 15-37 calcium, serum 9.1 mg/dL 8.5-10.1 bilirubin, serum, total 0.40 mg/dL 0.00-1.00 sodium, serum 134 mmol/L 434-507 9935/05/22 carbon dioxide, venous blood 25.2 mmol/L 21.0-32.0 [...] W/DIFF - Chemistry sodium, serum 137 mmol/L 372-733 0810/08/16 carbon dioxide, venous blood 26.3 mmol/L 21.0-32.0 [...] 4.3-6.0 Lab Report: [facility]id [facility], [facility] Chemistry cholesterol, serum 115 mg/dL 318-487 7238/08/18 triglyceride, serum, fasting 89 mg/dL 30-200 HDL [...] mg/dL Encounters Code Encounter Date Provider Facility CPT-47589 [id number] Vst-Est Level IV 11:03:20 CDT Prosper Arenas MD [facility] CPT-69248 Level 3 Est. Patient 14:09:25 CRYSTAL INSPECTOR Dee Palmer APRN [facility] CPT-70829 Level 3 Est. Patient 10:53:32 CRYSTAL INSPECTOR Moy Garcia [facility] CPT-06753 Level 3 Est. Patient 17:11:55 CRYSTAL INSPECTOR Ismael Gracia MD [facility] CPT-72615 Level 4 Est. Patient 16:29:19 CDT Mekhi Dukes MD [facility] CPT-56056 Level 3 New Patient 17:05:24 CDT Ismael Gracia MD [facility] CPT-62700 Level 2 Est. Patient 15:43:17 CDT Mekhi Dukes MD [facility] CPT-48616 Level 3 Est. Patient 09:30:37 CDT Moy Garcia [facility] CPT-48954 Level 3 Est. Patient 10:00:14 CDT Mekhi Dukes MD [facility] CPT-62787 Level 3 Est. Patient 12:24:09 CDT Moy Garcia [facility] CPT-15207 Level 3 Est. Patient 14:34:57 CDT Prosper Arenas MD [facility] CPT-05544 Level 3 New Patient 15:44:53 CRYSTAL INSPECTOR Mekhi Dukes MD [facility] CPT-66167 Level 3 Est. Patient 14:53:34 CRYSTAL INSPECTOR Prosper Arenas MD [facility] CPT-50345 Level 4 Est. Patient 10:05:41 CRYSTAL INSPECTOR Moy Garcia [facility] CPT-27276 Level 3 Est. Patient 11:18:32 CDT Moy Garcia [facility] CPT-43685 Level 4 Est. Patient 11:05:10 CDT Moy Garcia [facility] CPT-24852 Level 3 Est. Patient 11:08:27 CRYSTAL INSPECTOR Moy Garcia [facility] CPT-70121 Level 4 Est. Patient 10:43:59 CDT Prosper Arenas MD [facility]-81781 Level 3 Est. Patient 10:51:19 CDT Moy Garcia [facility] CPT-18045 Level 3 Est. Patient 10:20:31 CDT Moy Garcia [facility] CPT-18932 Level 3 Est. Patient 17:08:45 [facility] 2 Est. Patient 13:54:36 CDT Augustina Mata APRN [facility]-09728 Level 3 Est. Patient 12:00:42 CDT Prosper Arenas MD [facility]-41202 Level 3 Est. Patient 09:57:28 CRYSTAL INSPECTOR Moy Garcia [facility] CPT-76368 Level 3 Est. Patient 11:41:19 CRYSTAL INSPECTOR Moy Garcia [facility] CPT-02577 Level 4 Est. Patient 17:07:35 CRYSTAL INSPECTOR Moy Garcia [facility] CPT-23236 Level 5 Est. [facility] 14:33:32 [facility]-94910 Level 3 Est. Patient 12:25:35 CDT Prosper Arenas MD [facility] Procedures Code Procedure Name Date Entry Date Standard Description CPT-80514 Chest, 2 views 14:17:20 CRYSTAL INSPECTOR CPT-45506 Postop F/U Visit 14:44:45 CRYSTAL INSPECTOR CPT-60754 Postop F/U Visit 17:20:20 CRYSTAL INSPECTOR CPT-G0439 Subsequent Annual Wellness Exam 08:39:41 CRYSTAL INSPECTOR CPT-000 Give Appropriate Flu Vaccine 10:13:55 CRYSTAL INSPECTOR CPT-000 Give Immunizations Due 10:13:55 CRYSTAL INSPECTOR CPT-43796 HGBA1C - LAB USE ONLY 09:42:47 CRYSTAL INSPECTOR CPT-87147 TPSA - LAB USE ONLY 09:42:46 CRYSTAL INSPECTOR CPT-67334 Venipuncture Draw Fee 09:42:46 CRYSTAL INSPECTOR CPT-36584 Port a cath flush 13:33:18 CRYSTAL INSPECTOR CPT-18045 First Vx - Ix admin for Medicare patients 10:42:57 CRYSTAL INSPECTOR CPT-43872 Fluzone Preservative Free Intramuscular Suspension 10:42 :57 CRYSTAL INSPECTOR CPT-G0438 Initial Annual Wellness Exam 10:13:55 CRYSTAL INSPECTOR CPT-000 Give Appropriate Flu Vaccine 10:44:04 CDT CPT-000 Give Pneumovax 10:44:03 CDT CPT-52413 Port a cath flush 17:04:43 CDT CPT-97031 Prevnar 13 11:19:17 CDT CPT-81481 Fluzone Quadrivalent preservative free (>=3yrs.) 11:19: 17 CDT CPT-54143 Immunization Each Additional Inj 11:19:17 CDT CPT-29319 Immunization Single Admin 11:19:17 CDT CPT-57918 Port a cath flush 13:28:22 CDT CPT-TCMM Transitional Care Mgmt-Moderate 13:40:15 CDT CPT-G0008 Administration of Influenza Virus Vaccine 13:59:20 CDT CPT-91983 Fluzone High-Dose Intramuscular Suspension 13:59:20 CDT CPT-73034 Venipuncture Draw Fee 09:56:19 CDT CPT-OV Office Visit 15:46:10 CDT
--- OUTSIDE RECORDS SUMMARY | 2017-09-15 14:25 | XMS REPORT | Clinical Summary ---
Author Author Admin, Kaylynn Organization [employer] Address Unknown Phone Unavailable Allergies, Adverse Reactions, Alerts Allergy Name Reaction Description Start Date Severity Status Provider ERYTHROMYCIN Stomach cramps Moderate Active Prosper Arenas MD CODEINE Critical Active Maliheh Ziglari INVESTIGATIVE AGENT DARVOCET Critical Active Maliheh Ziglari INVESTIGATIVE AGENT LEVAQUIN Critical Active Maliheh Ziglari INVESTIGATIVE AGENT Conditions or Problems Problem Name Problem Code Onset Date Status Entry Date Provider Comment Standard Description Annotate Diabetes, Type 2 250.00 Resolved 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 Miller manager environmental 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 and 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 mellitus without mention of complication, type II [...] type II, uncontrolled 250.02 Active Maliheh Rodrigoglari INVESTIGATIVE AGENT Diabetes mellitus without mention of complication, type [...] with hyperglycemia 250.00 Active 03/21 Maliheh Ziglari INVESTIGATIVE AGENT Diabetes mellitus without mention of complication, type II or unspecified type, not stated as uncontrolled snf use of insulin treatment V58.67 Active Luxiheh Rodrigoglari INVESTIGATIVE AGENT Long-term (current) use of insulin Diabetes mellitus, type II with hypoglycemia 250.80 Active 07/22 Maliheh Ziglari INVESTIGATIVE AGENT Diabetes mellitus with other specified manifestations, type II or unspecified type, not stated as uncontrolled 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 Maliheh Ziglari INVESTIGATIVE AGENT Diabetes mellitus with renal manifestations, type II or unspecified type, not stated as uncontrolled Wellness exam V70.0 Active Dee Palmer APRN Routine general medical examination at a health care facility Fitting and adjustment of vascular catheter V58.81 Active 02/06 Dee Palmer APRN Encounter for fitting and adjustment of vascular catheter Unawareness of hypoglycemia in diabetes mellitus, type II 250.80 Active Maliheh Rodrigoglari INVESTIGATIVE AGENT Diabetes mellitus with other specified manifestations, type [...] disorder Hepatitis C, acute 070.51 Active Krarie Langley APRN Acute hepatitis C without mention of hepatic coma Inguinal hernia 550.90 Resolved Mekhi Dukes MD Unilateral or unspecified inguinal hernia, without mention of obstruction or gangrene (not specified as recurrent) Gastritis Inactive Maliheh Rodrigoglrex INVESTIGATIVE AGENT Unspecified gastritis and gastroduodenitis, without mention of [...] po qd x 4 days 05/07 AZITHROMYCIN 22388444390 No Longer Active Dee Palmer APRN Active GUAIFENESIN DM 400-20 MG ORAL TABLET 1 pill by mouth twice daily, if needed for cough DEXTROMETHORPHAN-GUAIFENESIN 45518906553 Active Dee Palmer APRN Active PREDNISONE 20 MG ORAL TABLET 2 tabs daily for 4 days, 1 tab daily for 4 days, 1/2 tab daily for 4 days PREDNISONE 30700281245 Active Dee Palmer APRN Active ASPIRIN 81 MG ORAL TABLET 1 po qd ASPIRIN 40626914728 Active Ryanllvito Barkleyl REVIEW SCHEDULING COORDINATOR Active CALCIUM 500/D 500-200 MG-UNIT ORAL TABLET one tablet daily CALCIUM CARBONATE-VITAMIN D 94618637686 No Longer Active Jillvito Barkleyngco REVIEW SCHEDULING COORDINATOR Active HYDROCODONE-ACETAMINOPHEN 7.5-325 MG ORAL TABLET 1-2 every 4-6 hrs prn 02/25 HYDROCODONE-ACETAMINOPHEN 86488497246 Active Marina Messina REVIEW SCHEDULING COORDINATOR Active ASPIRIN 81 MG ORAL TABLET 1 tablet by mouth daily ASPIRIN 05297286710 No Longer Active Marina Messina REVIEW SCHEDULING COORDINATOR Active SIMVASTATIN 80 MG ORAL TABLET 1/2 tablet daily SIMVASTATIN 60300190924 No Longer Active Mekhi Dukes MD Active OMEPRAZOLE 20 MG ORAL CAPSULE DELAYED RELEASE 1 qd OMEPRAZOLE 67827079533 No Longer Active Mekhi Dukes MD Active METOPROLOL TARTRATE 25 MG ORAL TABLET 1/2 tablet twice a day METOPROLOL TARTRATE 16463169512 No Longer Active Mekhi Dukes MD Active LISINOPRIL 5 MG ORAL TABLET 1 daily LISINOPRIL 60452631536 No Longer Active Mekhi Dukes MD Active NOVOLOG FLEXPEN 100 UNIT/ML SUBCUTANEOUS SOLUTION PEN-INJECTOR Take 8 units with each meal, add 1u/50 for blood sugars above 150. INSULIN ASPART 08823179443 Active Moy PARISH Active GABAPENTIN 300 MG ORAL CAPSULE 1 tab BID GABAPENTIN 38422901549 Active Tami Miller RN Active PREDNISONE 20 MG ORAL TABLET Take 2 daily for 3 days and then 1 daily for 3 days PREDNISONE 90971473387 No Longer Active Moy PARISH Active BENZONATATE 200 MG ORAL CAPSULE Take 1 tablet 3 times a day as needed for cough BENZONATATE 87017774252 No Longer Active Prosper Arenas MD Active HYDROCHLOROTHIAZIDE 25 MG ORAL TABLET 1 tablet by mouth daily HYDROCHLOROTHIAZIDE 39975503675 No Longer Active Prosper Arenas MD Active ACCU-CHEK JOANNA PLUS IN VITRO STRIP check blood sugars 5x a day, before each meal and bedtime and 15 minutes after treating a low blood. sugar GLUCOSE BLOOD 52866474471 Active Moy Wallaceglrex PARISH Active LANTUS SOLOSTAR 100 UNIT/ML SUBCUTANEOUS SOLUTION PEN-INJECTOR Take 40 units at 7-8pm daily INSULIN GLARGINE 98116985492 Active Maliheh Ziglari INVESTIGATIVE AGENT Active MECLIZINE HCL 25 MG ORAL TABLET 1 daily needed for dizziness 2015 MECLIZINE HCL 49180730137 No Longer Active Maliheh Ziglari INVESTIGATIVE AGENT Active BENZONATATE 200 MG ORAL CAPSULE 1 tab, 2-3 times a day BENZONATATE 40703117700 No Longer Active Maliheh Ziglari INVESTIGATIVE AGENT Active HALOPERIDOL 0.5 MG ORAL TABLET one tablet three times a day HALOPERIDOL 44842404069 No Longer Active Maliheh Ziglari INVESTIGATIVE AGENT Active TRAZODONE HCL 50 MG ORAL TABLET three tablets at bed time TRAZODONE HCL 76925088980 No Longer Active Maleh Ziglari INVESTIGATIVE AGENT Active REVLIMID 25 MG ORAL CAPSULE one capsule daily for 21 days then off for 7 days LENALIDOMIDE 46740849392 No Longer Active Maleh Ziglari INVESTIGATIVE AGENT Active ZITHROMAX Z-EDDIE 250 MG ORAL TABLET 2 today, then 1 daily for 4 days AZITHROMYCIN 94322319448 No Longer Active Augustina Mata APRN Active NOVOLIN R RELION 100 UNIT/ML INJECTION SOLUTION 30- 40 units each meal sliding scale INSULIN REGULAR HUMAN 44069545814 No Longer Active Maleh Ziglari INVESTIGATIVE AGENT Active HYDROCODONE-ACETAMINOPHEN 5-500 MG ORAL TABLET 1-2 FOUR TIMES A DAY, PRN 2010 HYDROCODONE-ACETAMINOPHEN 48805745491 No Longer Active Prosper Arenas MD Active DOXYCYCLINE HYCLATE 100 MG ORAL CAPSULE take one capsule by mouth twice daily for ten days DOXYCYCLINE HYCLATE 43497477687 No Longer Active Mekhi Dukes MD Active DOXYCYCLINE HYCLATE 100 MG ORAL CAPSULE take one capsule by mouth twice daily for ten days DOXYCYCLINE HYCLATE 100 MG ORAL CAPSULE 9399799 DOXYCYCLINE HYCLATE Inactive HYDROCODONE-ACETAMINOPHEN 5-500 MG ORAL [...] days ZITHROMAX Z-EDDIE 250 MG ORAL TABLET 079287 AZITHROMYCIN Inactive REVLIMID 25 MG ORAL CAPSULE one capsule daily for 21 days then off for 7 days REVLIMID 25 MG ORAL CAPSULE LENALIDOMIDE Inactive TRAZODONE HCL 50 MG ORAL TABLET three tablets at bed time TRAZODONE HCL 50 MG ORAL TABLET 063670 TRAZODONE HCL Inactive HALOPERIDOL 0.5 MG ORAL TABLET one tablet three times a day HALOPERIDOL 0.5 MG ORAL TABLET 175313 HALOPERIDOL Inactive BENZONATATE 200 MG ORAL CAPSULE 1 tab, 2-3 times a day BENZONATATE 200 MG ORAL CAPSULE 185531 BENZONATATE Inactive MECLIZINE HCL 25 MG ORAL TABLET 1 daily needed for dizziness 2015 MECLIZINE HCL 25 MG ORAL TABLET 842436 MECLIZINE HCL Inactive HYDROCHLOROTHIAZIDE 25 MG ORAL TABLET 1 tablet by mouth daily HYDROCHLOROTHIAZIDE 25 MG ORAL TABLET 284866 HYDROCHLOROTHIAZIDE Inactive PREDNISONE 20 MG ORAL TABLET Take 2 daily for 3 days and then 1 daily for 3 days PREDNISONE 20 MG ORAL TABLET 803686 PREDNISONE Inactive LISINOPRIL 5 MG ORAL TABLET 1 daily LISINOPRIL 5 MG ORAL TABLET 273040 LISINOPRIL Inactive METOPROLOL TARTRATE 25 MG ORAL TABLET 1/2 tablet twice a day METOPROLOL TARTRATE 25 MG ORAL TABLET 642148 METOPROLOL TARTRATE Inactive OMEPRAZOLE 20 MG ORAL CAPSULE DELAYED RELEASE 1 qd OMEPRAZOLE 20 MG ORAL CAPSULE DELAYED RELEASE 752485 OMEPRAZOLE Inactive SIMVASTATIN 80 MG ORAL TABLET 1/2 tablet daily SIMVASTATIN 80 MG ORAL TABLET 822716 SIMVASTATIN Inactive ASPIRIN 81 MG ORAL TABLET 1 tablet by mouth daily ASPIRIN 81 MG ORAL TABLET ASPIRIN Inactive CALCIUM 500/D 500-200 MG-UNIT ORAL TABLET one tablet daily CALCIUM 500/D 500-200 MG-UNIT ORAL TABLET CALCIUM CARBONATE-VITAMIN D Inactive BENZONATATE 200 MG ORAL CAPSULE Take 1 tablet 3 times a day as needed for cough BENZONATATE 200 MG ORAL CAPSULE 776926 BENZONATATE Inactive AZITHROMYCIN 250 MG ORAL TABLET 2 po qd x 1 day, then 1 po qd x 4 days 05/07 AZITHROMYCIN 250 MG ORAL TABLET 666774 AZITHROMYCIN Inactive Immunizations Vaccine Administration Date Value [...] % 11.6-14.8 platelet count 294 10^3/MM^3 10*3/mm3 251-321 8007/05/29 leukocyte count, blood 2.4 10^3/MM^3 10*3/mm3 4.6-10.2 [...] % 11.6-14.8 platelet count 138 10^3/MM^3 10*3/mm3 619-899 0394/06/12 leukocyte count, blood 4.3 10^3/MM^3 10*3/mm3 4.6-10.2 [...] % 11.6-14.8 platelet count 355 10^3/MM^3 10*3/mm3 551-304 4312/06/19 leukocyte count, blood 2.2 10^3/MM^3 10*3/mm3 4.6-10.2 [...] Panel - Chemistry sodium, serum 137 mmol/L 684-453 6034/06/05 carbon dioxide, venous blood 26.0 mmol/L 21.0-32.0 potassium, serum 4.5 mmol/L 3.5-5.2 chloride, serum 100 mmol/L 98-107 blood glucose 100 mg/dL 65-95 urea nitrogen, blood 16 mg/dL 7-18 creatinine, serum 1.67 mg/dL 0.60-1.30 alanine aminotransferase (SGPT), serum 75 U/L 12-78 aspartate aminotransferase (SGOT), serum 46 U/L 15-37 calcium, serum 9.8 mg/dL 8.5-10.1 bilirubin, serum, total 0.40 mg/dL 0.00-1.00 sodium, serum 134 mmol/L 827-496 3496/05/15 carbon dioxide, venous blood 23.5 mmol/L 21.0-32.0 potassium, serum 4.8 mmol/L 3.5-5.2 chloride, serum 101 mmol/L 98-107 blood glucose 139 mg/dL 65-95 urea nitrogen, blood 19 mg/dL 7-18 creatinine, serum 1.79 mg/dL 0.60-1.30 alanine aminotransferase (SGPT), serum 140 U/L 12-78 aspartate aminotransferase (SGOT), serum 104 U/L - calcium, serum 8.5 mg/dL 8.5-10.1 bilirubin, serum, total 0.40 mg/dL 0.00-1.00 sodium, serum 139 mmol/L 825-301 5372/05/01 carbon dioxide, venous blood 25.2 mmol/L 21.0-32.0 potassium, serum 4.1 mmol/L 3.5-5.2 chloride, serum 104 mmol/L 98-107 blood glucose 64 mg/dL 65-95 urea nitrogen, blood 16 mg/dL 7-18 creatinine, serum 1.55 mg/dL 0.60-1.30 alanine aminotransferase (SGPT), serum 80 U/L aspartate aminotransferase (SGOT), serum 53 U/L calcium, serum 8.1 mg/dL 8.5-10.1 bilirubin, serum, total 0.40 mg/dL 0.00-1.00 sodium, serum 135 mmol/L 935-089 4077/05/08 carbon dioxide, venous blood 29.0 mmol/L 21.0-32.0 potassium, serum 4.8 mmol/L 3.5-5.2 chloride, serum 101 mmol/L 98-107 blood glucose 165 mg/dL 65-95 urea nitrogen, blood 19 mg/dL 7-18 creatinine, serum 1.51 mg/dL 0.60-1.30 alanine aminotransferase (SGPT), serum 65 U/L aspartate aminotransferase (SGOT), serum 38 U/L calcium, serum 8.2 mg/dL 8.5-10.1 bilirubin, serum, total 0.50 mg/dL 0.00-1.00 sodium, serum 135 mmol/L 147-953 3794/04/10 carbon dioxide, venous blood 26.1 mmol/L 21.0-32.0 [...] % 11.6-14.8 platelet count 271 10^3/MM^3 10*3/mm3 327-939 3123/04/10 leukocyte count, blood 4.8 10^3/MM^3 10*3/mm3 4.6-10.2 [...] % 11.6-14.8 platelet count 200 10^3/MM^3 10*3/mm3 644-673 9255/05/15 leukocyte count, blood 1.7 10^3/MM^3 10*3/mm3 4.6-10.2 [...] % 11.6-14.8 platelet count 36 10^3/MM^3 10*3/mm3 267-432 3508/05/08 leukocyte count, blood 1.8 10^3/MM^3 10*3/mm3 4.6-10.2 [...] % 11.6-14.8 platelet count 103 10^3/MM^3 10*3/mm3 395-560 3947/06/05 leukocyte count, blood 2.7 10^3/MM^3 10*3/mm3 4.6-10.2 [...] Panel - Chemistry sodium, serum 134 mmol/L 203-830 0493/06/12 carbon dioxide, venous blood 21.9 mmol/L 21.0-32.0 potassium, serum 4.4 mmol/L 3.5-5.2 chloride, serum 97 mmol/L 98-107 blood glucose 191 mg/dL 65-95 urea nitrogen, blood 23 mg/dL 7-18 creatinine, serum 1.68 mg/dL 0.60-1.30 alanine aminotransferase (SGPT), serum 64 U/L -78 aspartate aminotransferase (SGOT), serum 35 U/L 15-37 calcium, serum 8.9 mg/dL 8.5-10.1 bilirubin, serum, total 0.70 mg/dL 0.00-1.00 sodium, serum 132 mmol/L 857-987 5946/06/19 carbon dioxide, venous blood 20.9 mmol/L 21.0-32.0 potassium, serum 3.9 mmol/L 3.5-5.2 chloride, serum 102 mmol/L 98-107 blood glucose 259 mg/dL 65-95 urea nitrogen, blood 16 mg/dL 7-18 creatinine, serum 1.46 mg/dL 0.60-1.30 alanine aminotransferase (SGPT), serum 62 U/L -78 aspartate aminotransferase (SGOT), serum 27 U/L 15-37 calcium, serum 7.5 mg/dL 8.5-10.1 bilirubin, serum, total 0.50 mg/dL 0.00-1.00 sodium, serum 136 mmol/L 695-369 2273/05/29 carbon dioxide, venous blood 22.4 mmol/L 21.0-32.0 potassium, serum 4.0 mmol/L 3.5-5.2 chloride, serum 104 mmol/L 98-107 blood glucose 128 mg/dL 65-95 urea nitrogen, blood 20 mg/dL 7-18 creatinine, serum 1.47 mg/dL 0.60-1.30 alanine aminotransferase (SGPT), serum 80 U/L - aspartate aminotransferase (SGOT), serum 38 U/L - calcium, serum 9.1 mg/dL 8.5-10.1 bilirubin, serum, total 0.40 mg/dL 0.00-1.00 sodium, serum 134 mmol/L 587-058 5267/05/22 carbon dioxide, venous blood 25.2 mmol/L 21.0-32.0 potassium, serum 5.0 mmol/L 3.5-5.2 chloride, serum 100 mmol/L 98-107 blood glucose 278 mg/dL 65-95 urea nitrogen, blood 19 mg/dL 7-18 creatinine, serum 1.49 mg/dL 0.60-1.30 alanine aminotransferase (SGPT), serum 93 U/L aspartate aminotransferase (SGOT), serum 58 U/L - calcium, serum 9.1 mg/dL 8.5-10.1 bilirubin, serum, total 0.20 mg/dL 0.00-1.00 Lab Report: Comp. Metabolic Panel, CBC W/DIFF - Chemistry sodium, serum 137 mmol/L 049-638 7201/08/16 carbon dioxide, venous blood 26.3 mmol/L 21.0-32.0 [...] LABS - Chemistry cholesterol, serum 115 mg/dL 371-067 3819/08/18 triglyceride, serum, fasting 89 mg/dL 30-200 HDL [...] mg/dL Encounters Code Encounter Date Provider Facility CPT-32371 Level 3 Est. Patient 14:09:25 PIECE DYEING MACHINE TENDER [facility] Est[facility] Patient 10:53:32 PIECE DYEING MACHINE TENDER [facility] CPT-54318 Level 3 Est. Patient 17:11:55 PIECE DYEING MACHINE TENDER Ismael Gracia MD [facility] CPT-38045 Level 4 Est. Patient 16:29:19 CDT Mekhi Dukes MD [facility] CPT-90932 Level 3 New Patient 17:05:24 CDT Ismael Gracia MD [facility] CPT-11123 Level 2 Est. Patient 15:43:17 CDT Mekhi Dukes MD [facility] CPT-37540 Level 3 Est. [facility] 09:30:[facility] CPT-89886 Level 3 Est. Patient 10:00:14 CDT Mekhi Dukes MD [facility] CPT-84852 Level 3 Est. Patient 12:24:09 CDT Moy Garcia [facility] CPT-56395 Level 3 Est. Patient 14:34:57 CDT Prosper Arenas MD [facility] CPT-17621 Level 3 New Patient 15:44:53 PIECE DYEING MACHINE TENDER Mekhi Dukes MD [facility] CPT-04092 Level 3 Est. Patient 14:53:34 PIECE DYEING MACHINE TENDER Prosper Arenas MD [facility] CPT-96657 Level 4 Est. Patient 10:05:41 PIECE DYEING MACHINE TENDER Moy Garcia [facility] CPT-07271 Level 3 Est. [facility] 11:18:32 [facility] 4 Est. Patient 11:05:10 CDT Moy Garcia [facility]-27552 Level 3 Est. Patient 11:08:27 PIECE DYEING MACHINE TENDER Moy Garcia [facility] CPT-93653 Level 4 Est. Patient 10:43:59 CDT Prosper Arenas MD [facility] CPT-34781 Level 3 Est. Patient 10:51:19 CDT Moy Garcia [facility] CPT-60575 Level 3 Est. Patient 10:20:31 CDT Moy Garcia [facility] CPT-38973 Level 3 Est. Patient 17:08:45 CDT Moy Garcia [facility] CPT-41063 Level 2 Est. Patient 13:54:36 CDT Augustina Mata REVIEW SCHEDULING COORDINATOR [facility] CPT-05629 Level 3 Est. Patient 12:00:42 CDT Prosper Arenas MD [facility]-49292 Level 3 Est. Patient 09:57:28 PIECE DYEING MACHINE TENDER Luxshoaib Garcia [facility] CPT-86787 Level 3 Est. Patient 11:41:19 PIECE DYEING MACHINE TENDER Luxshoaib Wallacerex [facility] CPT-54930 Level 4 Est. Patient 17:07:35 PIECE DYEING MACHINE TENDER [facility] [place]-23062 Level 5 Est. Patient 14:33:32 CDT [facility] CPT-90226 Level 3 Est. Patient 12:25:35 CDT Prosper Arenas MD [facility] Procedures Code Procedure Name Date Entry Date Standard Description CPT-77951 Chest, 2 views 14:17:20 PIECE DYEING MACHINE TENDER CPT-20497 Postop F/U Visit 14:44:45 PIECE DYEING MACHINE TENDER CPT-21261 Postop F/U Visit 17:20:20 PIECE DYEING MACHINE TENDER CPT-G0439 Subsequent Annual Wellness Exam 08:39:41 PIECE DYEING MACHINE TENDER CPT-000 Give Appropriate Flu Vaccine 10:13:55 PIECE DYEING MACHINE TENDER CPT-000 Give Immunizations Due 10:13:55 PIECE DYEING MACHINE TENDER CPT-06952 HGBA1C - LAB USE ONLY 09:42:47 PIECE DYEING MACHINE TENDER CPT-59742 TPSA - LAB USE ONLY 09:42:46 PIECE DYEING MACHINE TENDER CPT-91480 Venipuncture Draw Fee 09:42:46 PIECE DYEING MACHINE TENDER CPT-69530 Port a cath flush 13:33:18 PIECE DYEING MACHINE TENDER CPT-11546 First Vx - Ix admin for Medicare patients 10:42:57 PIECE DYEING MACHINE TENDER CPT-78361 Fluzone Preservative Free Intramuscular Suspension 10:42 :57 PIECE DYEING MACHINE TENDER CPT-G0438 Initial Annual Wellness Exam 10:13:55 PIECE DYEING MACHINE TENDER CPT-000 Give Appropriate Flu Vaccine 10:44:04 CDT CPT-000 Give Pneumovax 10:44:03 CDT CPT-18455 Port a cath flush 17:04:43 CDT CPT-97895 Prevnar 13 11:19:17 CDT CPT-50031 Fluzone Quadrivalent preservative free (>=3yrs.) 11:19: 17 CDT CPT-94776 Immunization Each Additional Inj 11:19:17 CDT CPT-75879 Immunization Single Admin 11:19:17 CDT CPT-25374 Port a cath flush 13:28:22 CDT CPT-TCMM Transitional Care Mgmt-Moderate 13:40:15 CDT CPT-G0008 Administration of Influenza Virus Vaccine 13:59:20 CDT CPT-45935 Fluzone High-Dose Intramuscular Suspension 13:59:20 CDT CPT-59764 Venipuncture Draw Fee 09:56:19 CDT CPT-OV Office Visit 15:46:10 CDT
--- OUTSIDE RECORDS SUMMARY | 2017-09-15 15:04 | XMS REPORT | Clinical Summary ---
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, type II [...] Syncope and collapse Hypokalemia 276.8 Resolved Tami Millre RN Hypopotassemia Diabetes mellitus, type II, uncontrolled 250.02 Active Maliheh Ziglari SUPPORT SERVICES REP Diabetes mellitus without mention of complication, [...] with hyperglycemia 250.00 Active 03/21 Maliheh Ziglari SUPPORT SERVICES REP Diabetes mellitus without mention of complication, type II or unspecified type, not stated as uncontrolled residential use of insulin treatment V58.67 Active Luxiheh Rodrigoglari SUPPORT SERVICES REP Long-term (current) use of insulin Diabetes mellitus, type II with hypoglycemia 250.80 Active 07/22 Maliheh Ziglari SUPPORT SERVICES REP Diabetes mellitus with other specified manifestations, type II or unspecified type, not stated as uncontrolled 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 Maliheh Ziglari SUPPORT SERVICES REP Diabetes mellitus with renal manifestations, type II or unspecified type, not stated as uncontrolled Wellness exam V70.0 Active Dee Palmer APRN Routine general medical examination at a health care facility Fitting and adjustment of vascular catheter V58.81 Active 02/06 Dee Palmer APRN Encounter for fitting and adjustment of vascular catheter Unawareness of hypoglycemia in diabetes mellitus, type II 250.80 Active Maliheh Rodrigoglari SUPPORT SERVICES REP Diabetes mellitus with other specified manifestations, [...] specified as recurrent) Gastritis Inactive Maliheh Jose SUPPORT SERVICES REP Unspecified gastritis and gastroduodenitis, without mention of [...] po qd x 4 days 05/07 AZITHROMYCIN 79611721502 No Longer Active Dee Palmer APRN Active GUAIFENESIN DM 400-20 MG ORAL TABLET 1 pill by mouth twice daily, if needed for cough DEXTROMETHORPHAN-GUAIFENESIN 30639566778 Active Dee Palmer APRN Active PREDNISONE 20 MG ORAL TABLET 2 tabs daily for 4 days, 1 tab daily for 4 days, 1/2 tab daily for 4 days PREDNISONE 24068006974 Active Dee Palmer APRN Active ASPIRIN 81 MG ORAL TABLET 1 po qd ASPIRIN 93876862064 Active Dee Palmer APRN Active CALCIUM 500/D 500-200 MG-UNIT ORAL TABLET one tablet daily CALCIUM CARBONATE-VITAMIN D 05830398431 No Longer Active Jillvito Barkleyngoc PIPE ROLLER Active HYDROCODONE-ACETAMINOPHEN 7.5-325 MG ORAL TABLET 1-2 every 4-6 hrs prn 02/25 HYDROCODONE-ACETAMINOPHEN 35358134719 Active Marina Messina PIPE ROLLER Active ASPIRIN 81 MG ORAL TABLET 1 tablet by mouth daily ASPIRIN 16553093531 No Longer Active Marina Messina PIPE ROLLER Active SIMVASTATIN 80 MG ORAL TABLET 1/2 tablet daily SIMVASTATIN 42340169338 No Longer Active Mekhi Dukes MD Active OMEPRAZOLE 20 MG ORAL CAPSULE DELAYED RELEASE 1 qd OMEPRAZOLE 08804041922 No Longer Active Mekhi Dukes MD Active METOPROLOL TARTRATE 25 MG ORAL TABLET 1/2 tablet twice a day METOPROLOL TARTRATE 55175642833 No Longer Active Mekhi Dukes MD Active LISINOPRIL 5 MG ORAL TABLET 1 daily LISINOPRIL 37498868777 No Longer Active Mekhi Dukes MD Active NOVOLOG FLEXPEN 100 UNIT/ML SUBCUTANEOUS SOLUTION PEN-INJECTOR Take 8 units with each meal, add 1u/50 for blood sugars above 150. INSULIN ASPART 80617108909 Active Moy PARISH Active GABAPENTIN 300 MG ORAL CAPSULE 1 tab BID GABAPENTIN 68576340890 Active Tami Miller RN Active PREDNISONE 20 MG ORAL TABLET Take 2 daily for 3 days and then 1 daily for 3 days PREDNISONE 20471206255 No Longer Active Moy PAR[place] Active BENZONATATE 200 MG ORAL CAPSULE Take 1 tablet 3 times a day as needed for cough BENZONATATE 21022924402 No Longer Active Prosper Arenas MD Active HYDROCHLOROTHIAZIDE 25 MG ORAL TABLET 1 tablet by mouth daily HYDROCHLOROTHIAZIDE 95886263855 No Longer Active Prosper Arenas MD Active ACCU-CHEK JOANNA PLUS IN VITRO STRIP check blood sugars 5x a day, before each meal and bedtime and 15 minutes after treating a low blood. sugar GLUCOSE BLOOD 55387325266 Active Moy Wallaceglrex PARISH Active LANTUS SOLOSTAR 100 UNIT/ML SUBCUTANEOUS SOLUTION PEN-INJECTOR Take 40 units at 7-8pm daily INSULIN GLARGINE 67799385380 Active Maliheh Ziglari SUPPORT SERVICES REP Active MECLIZINE HCL 25 MG ORAL TABLET 1 daily needed for dizziness 2015 MECLIZINE HCL 29837703829 No Longer Active Maliheh Ziglari SUPPORT SERVICES REP Active BENZONATATE 200 MG ORAL CAPSULE 1 tab, 2-3 times a day BENZONATATE 57264194849 No Longer Active Maliheh Ziglari SUPPORT SERVICES REP Active HALOPERIDOL 0.5 MG ORAL TABLET one tablet three times a day HALOPERIDOL 49462414191 No Longer Active Maliheh Ziglari SUPPORT SERVICES REP Active TRAZODONE HCL 50 MG ORAL TABLET three tablets at bed time TRAZODONE HCL 46572626221 No Longer Active Maleh Ziglari SUPPORT SERVICES REP Active REVLIMID 25 MG ORAL CAPSULE one capsule daily for 21 days then off for 7 days LENALIDOMIDE 48268910408 No Longer Active Maleh Ziglari SUPPORT SERVICES REP Active ZITHROMAX Z-EDDIE 250 MG ORAL TABLET 2 today, then 1 daily for 4 days AZITHROMYCIN 15397714458 No Longer Active Augustina Mata APRN Active NOVOLIN R RELION 100 UNIT/ML INJECTION SOLUTION 30- 40 units each meal sliding scale INSULIN REGULAR HUMAN 82317972775 No Longer Active Maleh Ziglari SUPPORT SERVICES REP Active HYDROCODONE-ACETAMINOPHEN 5-500 MG ORAL TABLET 1-2 FOUR TIMES A DAY, PRN 2010 HYDROCODONE-ACETAMINOPHEN 17888338079 No Longer Active Prosper Arenas MD Active DOXYCYCLINE HYCLATE 100 MG ORAL CAPSULE take one capsule by mouth twice daily for ten days DOXYCYCLINE HYCLATE 03970322833 No Longer Active Mekhi Dukes MD Active DOXYCYCLINE HYCLATE 100 MG ORAL CAPSULE take one capsule by mouth twice daily for ten days DOXYCYCLINE HYCLATE 100 MG ORAL CAPSULE 0508105 DOXYCYCLINE HYCLATE Inactive HYDROCODONE-ACETAMINOPHEN 5-500 MG ORAL [...] days ZITHROMAX Z-EDDIE 250 MG ORAL TABLET 525520 AZITHROMYCIN Inactive REVLIMID 25 MG ORAL CAPSULE one capsule daily for 21 days then off for 7 days REVLIMID 25 MG ORAL CAPSULE LENALIDOMIDE Inactive TRAZODONE HCL 50 MG ORAL TABLET three tablets at bed time TRAZODONE HCL 50 MG ORAL TABLET 480096 TRAZODONE HCL Inactive HALOPERIDOL 0.5 MG ORAL TABLET one tablet three times a day HALOPERIDOL 0.5 MG ORAL TABLET 028535 HALOPERIDOL Inactive BENZONATATE 200 MG ORAL CAPSULE 1 tab, 2-3 times a day BENZONATATE 200 MG ORAL CAPSULE 199704 BENZONATATE Inactive MECLIZINE HCL 25 MG ORAL TABLET 1 daily needed for dizziness 2015 MECLIZINE HCL 25 MG ORAL TABLET 775653 MECLIZINE HCL Inactive HYDROCHLOROTHIAZIDE 25 MG ORAL TABLET 1 tablet by mouth daily HYDROCHLOROTHIAZIDE 25 MG ORAL TABLET 876906 HYDROCHLOROTHIAZIDE Inactive PREDNISONE 20 MG ORAL TABLET Take 2 daily for 3 days and then 1 daily for 3 days PREDNISONE 20 MG ORAL TABLET 799949 PREDNISONE Inactive LISINOPRIL 5 MG ORAL TABLET 1 daily LISINOPRIL 5 MG ORAL TABLET 829451 LISINOPRIL Inactive METOPROLOL TARTRATE 25 MG ORAL TABLET 1/2 tablet twice a day METOPROLOL TARTRATE 25 MG ORAL TABLET 130175 METOPROLOL TARTRATE Inactive OMEPRAZOLE 20 MG ORAL CAPSULE DELAYED RELEASE 1 qd OMEPRAZOLE 20 MG ORAL CAPSULE DELAYED RELEASE 150300 OMEPRAZOLE Inactive SIMVASTATIN 80 MG ORAL TABLET 1/2 tablet daily SIMVASTATIN 80 MG ORAL TABLET 053129 SIMVASTATIN Inactive ASPIRIN 81 MG ORAL TABLET 1 tablet by mouth daily ASPIRIN 81 MG ORAL TABLET ASPIRIN Inactive CALCIUM 500/D 500-200 MG-UNIT ORAL TABLET one tablet daily CALCIUM 500/D 500-200 MG-UNIT ORAL TABLET CALCIUM CARBONATE-VITAMIN D Inactive BENZONATATE 200 MG ORAL CAPSULE Take 1 tablet 3 times a day as needed for cough BENZONATATE 200 MG ORAL CAPSULE 264182 BENZONATATE Inactive AZITHROMYCIN 250 MG ORAL TABLET 2 po qd x 1 day, then 1 po qd x 4 days 05/07 AZITHROMYCIN 250 MG ORAL TABLET 611951 AZITHROMYCIN Inactive Immunizations Vaccine Administration Date Value [...] % 11.6-14.8 platelet count 294 10^3/MM^3 10*3/mm3 122-495 2572/05/29 leukocyte count, blood 2.4 10^3/MM^3 10*3/mm3 4.6-10.2 [...] % 11.6-14.8 platelet count 138 10^3/MM^3 10*3/mm3 687-962 5353/06/12 leukocyte count, blood 4.3 10^3/MM^3 10*3/mm3 4.6-10.2 [...] Panel - Chemistry sodium, serum 134 mmol/L 956-694 1947/05/15 carbon dioxide, venous blood 23.5 mmol/L 21.0-32.0 potassium, serum 4.8 mmol/L 3.5-5.2 chloride, serum 101 mmol/L 98-107 blood glucose 139 mg/dL 65-95 urea nitrogen, blood 19 mg/dL 7-18 creatinine, serum 1.79 mg/dL 0.60-1.30 alanine aminotransferase (SGPT), serum 140 U/L 12-78 aspartate aminotransferase (SGOT), serum 104 U/L - calcium, serum 8.5 mg/dL 8.5-10.1 bilirubin, serum, total 0.40 mg/dL 0.00-1.00 sodium, serum 137 mmol/L 587-398 6495/06/05 carbon dioxide, venous blood 26.0 mmol/L 21.0-32.0 potassium, serum 4.5 mmol/L 3.5-5.2 chloride, serum 100 mmol/L 98-107 blood glucose 100 mg/dL 65-95 urea nitrogen, blood 16 mg/dL 7- creatinine, serum 1.67 mg/dL 0.60-1.30 alanine aminotransferase (SGPT), serum 75 U/L aspartate aminotransferase (SGOT), serum 46 U/L calcium, serum 9.8 mg/dL 8.5-10.1 bilirubin, serum, total 0.40 mg/dL 0.00-1.00 sodium, serum 139 mmol/L 478-456 3366/05/01 carbon dioxide, venous blood 25.2 mmol/L 21.0-32.0 potassium, serum 4.1 mmol/L 3.5-5.2 chloride, serum 104 mmol/L 98-107 blood glucose 64 mg/dL 65-95 urea nitrogen, blood 16 mg/dL 7-18 creatinine, serum 1.55 mg/dL 0.60-1.30 alanine aminotransferase (SGPT), serum 80 U/L aspartate aminotransferase (SGOT), serum 53 U/L calcium, serum 8.1 mg/dL 8.5-10.1 bilirubin, serum, total 0.40 mg/dL 0.00-1.00 sodium, serum 135 mmol/L 235-300 8507/05/08 carbon dioxide, venous blood 29.0 mmol/L 21.0-32.0 potassium, serum 4.8 mmol/L 3.5-5.2 chloride, serum 101 mmol/L 98-107 blood glucose 165 mg/dL 65-95 urea nitrogen, blood 19 mg/dL 7-18 creatinine, serum 1.51 mg/dL 0.60-1.30 alanine aminotransferase (SGPT), serum 65 U/L 12-78 aspartate aminotransferase (SGOT), serum 38 U/L 15-37 calcium, serum 8.2 mg/dL 8.5-10.1 bilirubin, serum, total 0.50 mg/dL 0.00-1.00 sodium, serum 135 mmol/L 152-498 9763/04/10 carbon dioxide, venous blood 26.1 mmol/L 21.0-32.0 [...] % 11.6-14.8 platelet count 271 10^3/MM^3 10*3/mm3 326-121 3174/04/10 leukocyte count, blood 4.8 10^3/MM^3 10*3/mm3 4.6-10.2 [...] % 11.6-14.8 platelet count 200 10^3/MM^3 10*3/mm3 112-115 8323/05/15 leukocyte count, blood 1.7 10^3/MM^3 10*3/mm3 4.6-10.2 [...] % 11.6-14.8 platelet count 36 10^3/MM^3 10*3/mm3 351-099 7922/05/08 leukocyte count, blood 1.8 10^3/MM^3 10*3/mm3 4.6-10.2 [...] % 11.6-14.8 platelet count 103 10^3/MM^3 10*3/mm3 003-909 7117/06/05 leukocyte count, blood 2.7 10^3/MM^3 10*3/mm3 4.6-10.2 [...] Panel - Chemistry sodium, serum 134 mmol/L 351-791 0693/06/12 carbon dioxide, venous blood 21.9 mmol/L 21.0-32.0 potassium, serum 4.4 mmol/L 3.5-5.2 chloride, serum 97 mmol/L 98-107 blood glucose 191 mg/dL 65-95 urea nitrogen, blood 23 mg/dL 7-18 creatinine, serum 1.68 mg/dL 0.60-1.30 alanine aminotransferase (SGPT), serum 64 U/L 12-78 aspartate aminotransferase (SGOT), serum 35 U/L 15-37 calcium, serum 8.9 mg/dL 8.5-10.1 bilirubin, serum, total 0.70 mg/dL 0.00-1.00 sodium, serum 136 mmol/L 838-272 7277/05/29 carbon dioxide, venous blood 22.4 mmol/L 21.0-32.0 potassium, serum 4.0 mmol/L 3.5-5.2 chloride, serum 104 mmol/L 98-107 blood glucose 128 mg/dL 65-95 urea nitrogen, blood 20 mg/dL 7-18 creatinine, serum 1.47 mg/dL 0.60-1.30 alanine aminotransferase (SGPT), serum 80 U/L 12-78 aspartate aminotransferase (SGOT), serum 38 U/L 15- calcium, serum 9.1 mg/dL 8.5-10.1 bilirubin, serum, total 0.40 mg/dL 0.00-1.00 sodium, serum 134 mmol/L 072-605 2922/05/22 carbon dioxide, venous blood 25.2 mmol/L 21.0-32.0 [...] W/DIFF - Chemistry sodium, serum 137 mmol/L 980-691 8277/08/16 carbon dioxide, venous blood 26.3 mmol/L 21.0-32.0 [...] LABS - Chemistry cholesterol, serum 115 mg/dL 473-860 3162/08/18 triglyceride, serum, fasting 89 mg/dL 30-200 HDL [...] mg/dL Encounters Code Encounter Date Provider Facility CPT-18500 Level 3 Est. Patient 14:09:25 PLANE TABLEMAN Dee Palmer APRN [facility] CPT-93378 Level 3 Est. Patient 10:53:[facility]-22387 Level 3 Est. Patient 17:11:55 PLANE TABLEMAN Ismael Gracia MD [facility] CPT-38479 Level 4 Est. Patient 16:29:19 CDT Mekhi Dukes MD [facility] CPT-93592 Level 3 New Patient 17:05:24 CDT Ismael Gracia MD [facility] CPT-03143 Level 2 Est. Patient 15:43:17 CDT Mekhi Dukes MD [facility] CPT-07633 Level 3 Est. Patient 09:30:37 [facility] CPT-60529 Level 3 Est. Patient 10:00:14 CDT Mekhi Dukes MD [facility] CPT-07638 Level 3 Est. Patient 12:24:09 CDT Moy Garcia [facility] [place]-95794 Level 3 Est. Patient 14:34:57 CDT Prosper Arenas MD [facility] CPT-16416 Level 3 New Patient 15:44:53 PLANE TABLEMAN Mekhi Dukes MD [facility]-76119 Level 3 Est. Patient 14:53:34 PLANE TABLEMAN Prosper Arenas MD [facility] CPT-59363 Level 4 Est. Patient 10:05:41 PLANE TABLEMAN Moy Rodrigokymrex [facility] [place]-13854 Level 3 Est. Patient 11:18:32 [facility] Level 4 Est. Patient 11:05:10 CDT Moy Garcia [facility] CPT-98288 Level 3 Est. Patient 11:08:27 PLANE TABLEMAN Moy Garcia [facility] CPT-66767 Level 4 Est. Patient 10:43:59 CDT Prosper Arenas MD [facility] CPT-16491 Level 3 Est. Patient 10:51:19 CDT Moy Garcia [facility] CPT-68060 Level 3 Est. Patient 10:20:31 CDT Moy Garcia [facility] CPT-10662 Level 3 Est. Patient 17:08:45 CDT Moy Garcia [facility] CPT-59681 Level 2 Est. Patient 13:54:36 CDT Augustina Mata APRN [facility] CPT-81843 Level 3 Est. Patient 12:00:42 CDT Prosper Arenas MD [facility] CPT-80147 Level 3 Est. Patient 09:57:28 PLANE TABLEMAN Luxshoaib Wallacerex [facility] CPT-23165 Level 3 Est. Patient 11:41:19 PLANE TABLEMAN [facility] Level 4 Est. Patient 17:07:35 PLANE TABLEMAN [facility] CPT-18745 Level 5 Est. Patient 14:33:32 CDT Luxshoaib Wallacerex [facility] CPT-91659 Level 3 Est. Patient 12:25:35 CDT Prosper Arenas MD [facility] Procedures Code Procedure Name Date Entry Date Standard Description CPT-31971 Chest, 2 views 14:17:20 PLANE TABLEMAN CPT-29084 Postop F/U Visit 14:44:45 PLANE TABLEMAN CPT-51619 Postop F/U Visit 17:20:20 PLANE TABLEMAN CPT-G0439 Subsequent Annual Wellness Exam 08:39:41 PLANE TABLEMAN CPT-000 Give Appropriate Flu Vaccine 10:13:55 PLANE TABLEMAN CPT-000 Give Immunizations Due 10:13:55 PLANE TABLEMAN CPT-19430 HGBA1C - LAB USE ONLY 09:42:47 PLANE TABLEMAN CPT-59497 TPSA - LAB USE ONLY 09:42:46 PLANE TABLEMAN CPT-81076 Venipuncture Draw Fee 09:42:46 PLANE TABLEMAN CPT-88099 Port a cath flush 13:33:18 PLANE TABLEMAN CPT-76437 First Vx - Ix admin for Medicare patients 10:42:57 PLANE TABLEMAN CPT-20468 Fluzone Preservative Free Intramuscular Suspension 10:42 :57 PLANE TABLEMAN CPT-G0438 Initial Annual Wellness Exam 10:13:55 PLANE TABLEMAN CPT-000 Give Appropriate Flu Vaccine 10:44:04 CDT CPT-000 Give Pneumovax 10:44:03 CDT CPT-55997 Port a cath flush 17:04:43 CDT CPT-16531 Prevnar 13 11:19:17 CDT CPT-65507 Fluzone Quadrivalent preservative free (>=3yrs.) 11:19: 17 CDT CPT-88429 Immunization Each Additional Inj 11:19:17 CDT CPT-78922 Immunization Single Admin 11:19:17 CDT CPT-82473 Port a cath flush 13:28:22 CDT CPT-TCMM Transitional Care Mgmt-Moderate 13:40:15 CDT CPT-G0008 Administration of Influenza Virus Vaccine 13:59:20 CDT CPT-32039 Fluzone High-Dose Intramuscular Suspension 13:59:20 CDT CPT-06139 Venipuncture Draw Fee 09:56:19 CDT CPT-OV Office Visit 15:46:10 CDT
[2017-09-21] MEDS ORDERED: LISI10TA2 PO (11:25)
[2017-09-21] MEDS ORDERED: MEGE20TA PO (12:41)
== END 2017-09-14 10:55 | disposition home or self-care (01) ==
LOC: EDUNIT# 04:23 → ER 04:24 → CATH 05:50 → UNDOADMOB 05:50 → ICU 05:50 → UNDODISOB 09-14 10:55 → CATH 09-14 10:55
PROVIDERS: ATTEND Family Medicine
DX: R07.89 Other chest pain (principal); R06.09 Other forms of dyspnea; I25.10 Atherosclerotic heart disease of native coronary artery without angina pectoris; E78.5 Hyperlipidemia, unspecified; E11.22 Type 2 diabetes mellitus with diabetic chronic kidney disease; N18.9 Chronic kidney disease, unspecified; K21.9 Gastro-esophageal reflux disease without esophagitis; C90.02 Multiple myeloma in relapse; D70.1 Agranulocytosis secondary to cancer chemotherapy; T45.1X5A Adverse effect of antineoplastic and immunosuppressive drugs, initial encounter; I25.2 Old myocardial infarction; Z79.82 Long term (current) use of aspirin; Z79.4 Long term (current) use of insulin; Z79.899 Other long term (current) drug therapy; Z87.891 Personal history of nicotine dependence
CPT/HCPCS: 36415; 71045; 80053; 82962; 83690; 83735; 83874; 84484; 85007; 85027; 85379; 85610; 85730; 93005; 93041; 93306; 93458; 96361; 96374

== ENCOUNTER 2017-09-29 20:31 | Emergency (ER) | payer MEDICARE ==
[~2017-09-29] VITALS: Ht 165.1 cm; Wt 76.0 kg
[~2017-09-29 20:31] MED LIST changes: +CEFD300C3 PO; +LACT1CAP62 PO; +LISI-556 PO; +LISI10TA2 PO; +MEGE20TA PO; +METO-387 PO
[2017-09-29] MEDS ORDERED: fentaNYL INJECTION 100 MCG/2 ML AMP IVP ONE (20:45)
--- NOTE | 2017-09-29 20:46 | ED Fall/Injury ---
General Chief Complaint: Trauma-Non Activation Stated Complaint: FALL;RIB PAIN Nursing Triage Note: Patient reports was going to the BR and went to pull his britches down and got lightheaded and dizzy and fell onto the toilet hitting his L side. patient denies LOC or head injury Source: patient Exam Limitations: no limitations History of Present Illness Date Seen by Provider: Sep 29, 2017 Time Seen by Provider: 20:37 Initial Comments The patient presents to the ER by private conveyance with a chief complaint he is having some left-sided rib pain after he was getting up from the toilet today just prior to arrival he felt a little dizzy on standing and fell again. He's got a long-standing history of multiple myeloma and some orthostasis. He says he did not black out nor strike his head but he did strike the left lower rib cage against the bathtub wall is having quite a bit of pain. He has not taken anything for it yet. He is not having any nausea fevers chills or shortness of breath. No cough or abdominal pain. He is on aspirin but no blood thinners. Allergies and Home Medications Allergies Coded Allergies: codeine (Unverified Allergy, Unknown, 08/25/17) levofloxacin (Unverified Allergy, Unknown, 08/25/17) niacin (Unverified Allergy, Unknown, 08/25/17) Uncoded Allergies: DARVOCET (Allergy, Unknown, 08/25/17) ERYTHROMYCIN (Allergy, Unknown, 08/25/17) Home Medications Acyclovir 400 Mg Tablet, 400 MG PO BID, (Reported) Aspirin 81 Mg Tablet.dr, 81 MG PO DAILY, (Reported) Calcium Carbonate/Vitamin D3 1 Each Tablet, 1 TAB PO BID, (Reported) Cefdinir 300 Mg Capsule, 300 MG PO BID Prescribed by: PHIL DEL CID on 09/22/17 1052 Gabapentin 300 Mg Capsule, 300 MG PO TID, (Reported) Hydrocodone/Acetaminophen 1 Each Tablet, 1 TAB PO TID PRN for PAIN-MODERATE, ( Reported) Insulin Aspart 300 Units/3 Ml Solution, 6-7 UNITS SQ AC, (Reported) Insulin Glargine,Hum.rec.anlog 100 Unit/1 Ml Vial, 35 UNIT SQ HS, (Reported) Lactobacillus Acidophilus 1 Each Capsule, 1 EACH PO AC Prescribed by: PHIL DEL CID on 09/22/17 1052 Megestrol Acetate 20 Mg Tablet, 40 MG PO DAILY, (Reported) Omeprazole 20 Mg Capsule.dr, 20 MG PO DAILY, (Reported) Ondansetron HCl 8 Mg Tablet, 8 MG PO Q8H PRN for NAUSEA/VOMITING-1ST LINE, ( Reported) Patient Home Medication List Home Medication List Reviewed: Yes Review of Systems Constitutional: No chills, No diaphoresis Eyes: Denies Blindness, Denies Blurred Vision Ears, Nose, Mouth, Throat: denies ear pain, denies ear discharge Respiratory: No cough, No hemoptysis, No short of breath Cardiovascular: see HPI, chest pain Gastrointestinal: No abdominal pain, No constipation, No diarrhea, No nausea Genitourinary: No discharge, No dysuria Musculoskeletal: No back pain, No joint pain Skin: No pruritus, No rash Psychiatric/Neurological: Denies Headache, Denies Numbness Past B[place] Hx Patient Social History Alcohol Use: Past History Number of Drinks Today: BB Alcohol Beverage of Choice: [place] Recreational Drug Use: No Drug of Choice: OPIATES Smoking Status: Former Smoker Type Used: Cigarettes Former Smoker, Quit: Jan 08, 1973 2nd Hand Smoke Exposure: No Recent Foreign Travel: No Contact w/Someone Who Travel: No Recent Infectious Disease Expo: No Recent Hopitalizations: Yes Physical Abuse: No Sexual Abuse: No Immunizations Up To Date Date of Pneumonia Vaccine: Jan 09, 2015 Seasonal Allergies Seasonal Allergies: No Past Medical History Surgeries: Yes Abdominal, Cardiac, Coronary Stent, Orthopedic Respiratory: Yes (MULTIPLE EPISODES OF PNEUMONIA; RIGHT PNEUMOTHORAX FROM TRAUMA 1992) Pneumonia Currently Using CPAP: No Currently Using BIPAP: No Cardiac: Yes (IL X 3--CARDIAC CATHS-STENT X 1) Coronary Artery Disease, Heart Attack, High Cholesterol, Hypotension Neurological: Yes (MULTIPLE MYELOMA) Sexually Transmitted Disease: No HIV/AIDS: No Genitourinary: No Gastrointestinal: Yes Abdominal Hernia, Gastroesophageal Reflux, Hepatitis Musculoskeletal: Yes Fractures Endocrine: Yes Diabetes, Insulin dep HEENT: Yes (WISDOM TEETH REMOVAL; WEARS GLASSES) Cataract Loss of Vision: Denies Hearing Impairment: Denies Cancer: Yes (MULTIPLE MYELOMA--DIAGNOSED AROUND 2003, 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) Did You Recieve Any Treatments: Yes What Type of Treatment Did You: Chemotherapy Psychosocial: No Nursing Suicide Risk Score: 0 Integumentary: No Blood Disorders: Yes (PANCYTOPENIA ON CHEMO) Adverse Reaction/Blood Tranf: No Family Medical History Cancer Physical Exam Vital Signs Vital Signs - First Documented 09/29/17 20:35 Temp 98.4 Pulse 82 Resp 18 B/P (MAP) 127/84 (98) Pulse Ox 99 Capillary Refill : Less Than 3 Seconds General Appearance: WD/WN, mild distress HEENT: PERRL/EOMI, pharynx normal Neck: non-tender, full range of motion, supple, normal inspection Cardiovascular: normal peripheral pulses, regular rate, rhythm, no edema Respiratory: lungs clear, normal breath sounds, no respiratory distress, no accessory muscle use, other (chest wall pain in the midaxillary line left lower rib) Peripheral Pulses: 2+ Radial Pulses (R), 2+ Radial Pulses (L) Gastrointestinal: normal bowel sounds, non tender, soft Extremities: non-tender, normal capillary refill Neurologic/Psychiatric: alert, normal mood/affect, oriented x 3 Skin: normal color, warm/dry [place] Coma Score Best Eye Response: (4) Open Spontaneously Best Verbal Response: (5) Oriented Best Motor Response: (6) Obeys Commands Fabio Total: 15 Progress/Results/Core Measures Results/Orders Lab Results Laboratory Tests Test 09/29/17 21:10 09/29/17 22:08 Range/Units White Blood Count 7.1 4.3-11.0 10^3/uL Red Blood Count 4.55 4.35-5.85 10^6/uL Hemoglobin 15.0 13.3-17.7 G/DL Hematocrit 40 40-54 % Mean Corpuscular Volume 87 80-99 FL Mean Corpuscular Hemoglobin 33 25-34 PG Mean Corpuscular Hemoglobin Concent 38 H 32-36 G/DL Red Cell Distribution Width 12.1 10.0-14.5 % Platelet Count 426 H 130-400 10^3/uL Mean Platelet Volume 9.5 7.4-10.4 FL Neutrophils (%) (Auto) 52 42-75 % Lymphocytes (%) (Auto) 21 12-44 % Monocytes (%) (Auto) 25 H 0-12 % Eosinophils (%) (Auto) 1 0-10 % Basophils (%) (Auto) 1 0-10 % Neutrophils # (Auto) 3.7 1.8-7.8 X 10^3 Lymphocytes # (Auto) 1.5 1.0-4.0 X 10^3 Monocytes # (Auto) 1.8 H 0.0-1.0 X 10^3 Eosinophils # (Auto) 0.1 0.0-0.3 10^3/uL Basophils # (Auto) 0.1 0.0-0.1 10^3/uL Neutrophils % (Manual) 53 % Lymphocytes % (Manual) 30 % Monocytes % (Manual) 16 % Eosinophils % (Manual) 0 % Basophils % (Manual) 1 % Band Neutrophils 0 % Blood Morphology Comment NORMAL Sodium Level 126 L 135-145 MMOL/L Potassium Level 4.1 3.6-5.0 MMOL/L Chloride Level 99 98-107 MMOL/L Carbon Dioxide Level 13 L 21-32 MMOL/L Anion Gap 14 5-14 MMOL/L Blood Urea Nitrogen 15 7-18 MG/DL Creatinine 1.38 H 0.60-1.30 MG/DL Estimat Glomerular Filtration Rate > 60 BUN/Creatinine Ratio 11 Glucose Level 139 H 70-105 MG/DL Calcium Level 8.8 8.5-10.1 MG/DL Total Bilirubin 0.9 0.1-1.0 MG/DL Aspartate Amino Transf (AST/SGOT) 27 5-34 U/L Alanine Aminotransferase (ALT/SGPT) 47 0-55 U/L Alkaline Phosphatase 83 40-136 U/L Total Protein 6.8 6.4-8.2 GM/DL Albumin 4.0 3.2-4.5 GM/DL Urine Color YELLOW Urine Clarity CLEAR Urine pH 7 5-9 Urine Specific [place] 1.010 L 1.016-1.022 Urine Protein 1+ H NEGATIVE Urine Glucose (UA) NEGATIVE NEGATIVE Urine Ketones NEGATIVE NEGATIVE Urine Nitrite NEGATIVE NEGATIVE Urine Bilirubin NEGATIVE NEGATIVE Urine Urobilinogen 4 H NORMAL MG/DL Urine Leukocyte Esterase NEGATIVE NEGATIVE Urine RBC (Auto) 1+ H NEGATIVE Urine RBC 0-2 /HPF Urine WBC RARE /HPF Urine Crystals NONE /LPF Urine Bacteria NEGATIVE /HPF Urine Casts NONE /LPF Urine Mucus NEGATIVE /LPF Urine Culture Indicated NO My Orders Orders - TAN MCKEON Ct Head Wo (09/29/17 20:39) Saline Lock/Iv-Start (09/29/17 20:39) Cbc With Automated Diff (09/29/17 20:39) Comprehensive Metabolic Panel (09/29/17 20:39) Ua Culture If Indicated (09/29/17 20:39) Ribs, Left 2-3 Views (09/29/17 20:39) Fentanyl Injection (Sublimaze Injection (09/29/17 20:45) Manual Differential (09/29/17 21:10) Medications Given in ED Current Medications Medications Dose Ordered Sig/Carmel Route Start Time Stop Time Status Last Admin Dose Admin Fentanyl Citrate 50 mcg ONCE ONCE IVP 09/29/17 20:45 09/29/17 20:46 DC 09/29/17 21:12 50 MCG Vital Signs/I&O 09/29/17 20:35 Temp 98.4 Pulse 82 Resp 18 B/P (MAP) 127/84 (98) Pulse Ox 99 Blood Pressure Mean: 98 Progress Progress Note : Time: 20:44 Progress Note Blood pressure is good on presentation. Give him some pain medicine and get a x -ray of his ribs. His belly is nontender and he'll probably do well. We did discuss doing imaging of his head usually did not strike it. He has agreed to do CT of the head. Diagnostic Imaging Diagonstic Imaging: CT Plain Films/CT/US/NM/MRI: head (noncontrast) Comments VIA [facility]. [place], [place] NAME: DOMINIQUE NOGUEIRA [facility] REC#: [id number] PT STATUS: REG ER : 1950 PHYSICIAN: TAN MCKEON MD ADMIT DATE: 09/29/17/ER Draft Date of Exam:09/29/17 CT HEAD WO PROCEDURE: CT head without contrast. TECHNIQUE: Multiple contiguous axial images were obtained through the brain without the use of intravenous contrast. INDICATION: Dizziness. COMPARISON: 09/20/2017. FINDINGS: No acute intracranial hemorrhage or space-occupying mass. No hydrocephalus or midline shift. Chicas-white matter differentiation is well-preserved. Basilar cisterns are preserved. Extensive mottled appearance of the calvarium is unchanged. No acute skull fracture. Paranasal sinuses and mastoid air cells are clear where visualized. IMPRESSION: 1. No acute intracranial process. 2. Unchanged abnormal mottled appearance of the calvarium likely due to multiple myeloma. Dictated on workstation # [id number] Dict: 09/29/17 2100 Trans: 09/29/172104 [facility] [id number] Interpreted by: RICHARD VERAS MD Electronically signed by: Reviewed: Reviewed by Me Diagonstic Imaging: Xray Plain Films/CT/US/NM/MRI: chest (left ribs 2-3 views) Comments VIA [facility]. [place], [place] NAME: DOMINIQUE NOGUEIRA [facility] REC#: [id number] PT STATUS: REG ER : 1950 PHYSICIAN: TAN MCKEON MD ADMIT DATE: 09/29/17/ER Draft Date of Exam:09/29/17 RIBS, LEFT 2-3 VIEWS INDICATION: Left-sided chest pain after a fall. COMPARISON: Chest radiograph of 09/20/2017. FINDINGS: No pneumothorax or pleural effusion. No acute left-sided rib fracture. Old healed fracture of the lateral left 10th rib. Stable left sided Port-A-Cath. IMPRESSION: 1. No pneumothorax or pleural effusion. 2. No acute rib fracture on the left. Dictated on workstation # [id number] Dict: 09/29/172127 Trans: 09/29/172131 [facility] [id number] Interpreted by: RICHARD VERAS MD Electronically signed by: Reviewed: Reviewed by Me Departure Impression Primary Impression: Fall Qualified Codes: W19.XXXA - Unspecified fall, initial encounter Additional Impression: Rib pain on left side Disposition: 01 HOME, SELF-CARE Condition: Improved Departure-Patient Inst. Decision time for Depature: 23:10 Referrals: YOMI RAMESH MD (PCP/Family) Primary Care Physician Patient Instructions: Bruised Rib (DC) Add. Discharge Instructions: Apply ice to your ribs for 20 minutes every 2-4 hours for the first 3 days. Use Tylenol or your pain medicine as necessary. You can also use heating pads and follow-up with your primary care doctor if you're having trouble with pain despite your medications. All discharge instructions reviewed with patient and/ or family. Voiced understanding. TAN MCKEON Sep 29, 2017 20:46
--- NOTE | 2017-09-29 21:05 | Diagnostic Imaging Report ---
PROCEDURE: CT head without contrast. TECHNIQUE: Multiple contiguous axial images were obtained through the brain without the use of intravenous contrast. INDICATION: Dizziness. COMPARISON: 09/20/2017. FINDINGS: No acute intracranial hemorrhage or space-occupying mass. No hydrocephalus or midline shift. Chicas-white matter differentiation is well-preserved. Basilar cisterns are preserved. Extensive mottled appearance of the calvarium is unchanged. No acute skull fracture. Paranasal sinuses and mastoid air cells are clear where visualized. IMPRESSION: 1. No acute intracranial process. 2. Unchanged abnormal mottled appearance of the calvarium likely due to multiple myeloma. Dictated by: Dictated on workstation # [id number]
--- OUTSIDE RECORDS SUMMARY | 2017-09-29 21:07 | XMS REPORT | Clinical Summary ---
Author Author Admin, Kaylynn Organization [facility] Address Unknown Phone Unavailable Allergies, Adverse Reactions, Alerts Allergy Name Reaction Description Start Date Severity Status Provider ERYTHROMYCIN Stomach cramps Moderate Active Prosper Arenas MD CODEINE Critical Active Maliheh Ziglari SOCIAL MEDIA EDITOR DARVOCET Critical Active Maliheh Ziglari SOCIAL MEDIA EDITOR LEVAQUIN Critical Active Maliheh Ziglari SOCIAL MEDIA EDITOR Conditions or Problems Problem Name Problem Code Onset Date Status Entry Date Provider Comment Standard Description Annotate Diabetes, Type 2 250.00 Resolved 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 Miller mixer runner mellitus without mention of complication, type II [...] type II, uncontrolled 250.02 Active Maliheh Rodrigoglari SOCIAL MEDIA EDITOR Diabetes mellitus without mention of complication, type [...] with hyperglycemia 250.00 Active 03/21 Maliheh Ziglari SOCIAL MEDIA EDITOR Diabetes mellitus without mention of complication, type II or unspecified type, not stated as uncontrolled retirement use of insulin treatment V58.67 Active Luxiheh Rodrigoglari SOCIAL MEDIA EDITOR Long-term (current) use of insulin Diabetes mellitus, type II with hypoglycemia 250.80 Active 07/22 Maliheh Ziglari SOCIAL MEDIA EDITOR Diabetes mellitus with other specified manifestations, type II or unspecified type, not stated as uncontrolled 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 Maliheh Ziglari SOCIAL MEDIA EDITOR Diabetes mellitus with renal manifestations, type II or unspecified type, not stated as uncontrolled Wellness exam V70.0 Active Dee Palmer APRN Routine general medical examination at a health care facility Fitting and adjustment of vascular catheter V58.81 Active 02/06 Dee Palmer APRN Encounter for fitting and adjustment of vascular catheter Unawareness of hypoglycemia in diabetes mellitus, type II 250.80 Active Maliheh Rodrigoglari SOCIAL MEDIA EDITOR Diabetes mellitus with other specified manifestations, type [...] specified as recurrent) Gastritis Inactive Maliheh Rodrigoglrex SOCIAL MEDIA EDITOR Unspecified gastritis and gastroduodenitis, without mention of [...] TABLET 1 daily for depression CITALOPRAM HYDROBROMIDE 97343694034 Active Prosper Arenas MD Active PREDNISONE 20 MG ORAL TABLET 2 tabs daily for 4 days, 1 tab daily for 4 days, 1/2 tab daily for 4 days PREDNISONE 73882724296 No Longer Active Prosper Arenas MD Active AZITHROMYCIN 250 MG ORAL TABLET 2 po qd x 1 day, then 1 po qd x 4 days 05/07 AZITHROMYCIN 97511720875 No Longer Active Dee Palmer APRN Active GUAIFENESIN DM 400-20 MG ORAL TABLET 1 pill by mouth twice daily, if needed for cough DEXTROMETHORPHAN-GUAIFENESIN 68534891693 Active Dee Palmer APRN Active ASPIRIN 81 MG ORAL TABLET 1 po qd ASPIRIN 09198971164 Active Dee Palmer APRN Active CALCIUM 500/D 500-200 MG-UNIT ORAL TABLET one tablet daily CALCIUM CARBONATE-VITAMIN D 82374517091 No Longer Active Dee Palmer APRN Active HYDROCODONE-ACETAMINOPHEN 7.5-325 MG ORAL TABLET 1-2 every 4-6 hrs prn 02/25 HYDROCODONE-ACETAMINOPHEN 44538578145 Active Marina King BESSY Active ASPIRIN 81 MG ORAL TABLET 1 tablet by mouth daily ASPIRIN 22634794314 No Longer Active Marina King BESSY Active SIMVASTATIN 80 MG ORAL TABLET 1/2 tablet daily SIMVASTATIN 61654608895 No Longer Active Mekhi Dukes MD Active OMEPRAZOLE 20 MG ORAL CAPSULE DELAYED RELEASE 1 qd OMEPRAZOLE 69680693085 No Longer Active Mekhi Dukes MD Active METOPROLOL TARTRATE 25 MG ORAL TABLET 1/2 tablet twice a day METOPROLOL TARTRATE 77771586749 No Longer Active Mekhi Dukes MD Active LISINOPRIL 5 MG ORAL TABLET 1 daily LISINOPRIL 54703567083 No Longer Active Mekhi Dukes MD Active NOVOLOG FLEXPEN 100 UNIT/ML SUBCUTANEOUS SOLUTION PEN-INJECTOR Take 8 units with each meal, add 1u/50 for blood sugars above 150. INSULIN ASPART 22771118391 Active Moy PARISH Active GABAPENTIN 300 MG ORAL CAPSULE 1 tab BID GABAPENTIN 17182074657 Active Tami Miller RN Active PREDNISONE 20 MG ORAL TABLET Take 2 daily for 3 days and then 1 daily for 3 days PREDNISONE 17330811710 No Longer Active Malpapo Wallaceglrex DURANTP Active BENZONATATE 200 MG ORAL CAPSULE Take 1 tablet 3 times a day as needed for cough BENZONATATE 63429666319 No Longer Active Prosper Arenas MD Active HYDROCHLOROTHIAZIDE 25 MG ORAL TABLET 1 tablet by mouth daily HYDROCHLOROTHIAZIDE 13758909744 No Longer Active Prosper Arenas MD Active ACCU-CHEK JOANNA PLUS IN VITRO STRIP check blood sugars 5x a day, before each meal and bedtime and 15 minutes after treating a low blood. sugar GLUCOSE BLOOD 85450146105 Active Maliheh Ziglari SOCIAL MEDIA EDITOR Active LANTUS SOLOSTAR 100 UNIT/ML SUBCUTANEOUS SOLUTION PEN-INJECTOR Take 40 units at 7-8pm daily INSULIN GLARGINE 31650946772 Active Maliheh Ziglari SOCIAL MEDIA EDITOR Active MECLIZINE HCL 25 MG ORAL TABLET 1 daily needed for dizziness 2015 MECLIZINE HCL 82067246253 No Longer Active Maliheh Ziglari SOCIAL MEDIA EDITOR Active BENZONATATE 200 MG ORAL CAPSULE 1 tab, 2-3 times a day BENZONATATE 34023239459 No Longer Active Maliheh Ziglari SOCIAL MEDIA EDITOR Active HALOPERIDOL 0.5 MG ORAL TABLET one tablet three times a day HALOPERIDOL 86890863890 No Longer Active Maliheh Ziglari SOCIAL MEDIA EDITOR Active TRAZODONE HCL 50 MG ORAL TABLET three tablets at bed time TRAZODONE HCL 90125424614 No Longer Active Maliheh Ziglari SOCIAL MEDIA EDITOR Active REVLIMID 25 MG ORAL CAPSULE one capsule daily for 21 days then off for 7 days LENALIDOMIDE 45753560951 No Longer Active Maliheh Ziglari SOCIAL MEDIA EDITOR Active ZITHROMAX Z-EDDIE 250 MG ORAL TABLET 2 today, then 1 daily for 4 days AZITHROMYCIN 45071504911 No Longer Active Augustina Mata APRN Active NOVOLIN R RELION 100 UNIT/ML INJECTION SOLUTION 30- 40 units each meal sliding scale INSULIN REGULAR HUMAN 05498806170 No Longer Active Maliheh Ziglari SOCIAL MEDIA EDITOR Active HYDROCODONE-ACETAMINOPHEN 5-500 MG ORAL TABLET 1-2 FOUR TIMES A DAY, PRN 2010 HYDROCODONE-ACETAMINOPHEN 87084013059 No Longer Active Prosper Arenas MD Active DOXYCYCLINE HYCLATE 100 MG ORAL CAPSULE take one capsule by mouth twice daily for ten days DOXYCYCLINE HYCLATE 31923558405 No Longer Active Mekhi Dukes MD Active DOXYCYCLINE HYCLATE 100 MG ORAL CAPSULE take one capsule by mouth twice daily for ten days DOXYCYCLINE HYCLATE 100 MG ORAL CAPSULE 4625683 DOXYCYCLINE HYCLATE Inactive HYDROCODONE-ACETAMINOPHEN 5-500 MG ORAL [...] days ZITHROMAX Z-EDDIE 250 MG ORAL TABLET 508659 AZITHROMYCIN Inactive REVLIMID 25 MG ORAL CAPSULE one capsule daily for 21 days then off for 7 days REVLIMID 25 MG ORAL CAPSULE LENALIDOMIDE Inactive TRAZODONE HCL 50 MG ORAL TABLET three tablets at bed time TRAZODONE HCL 50 MG ORAL TABLET 377442 TRAZODONE HCL Inactive HALOPERIDOL 0.5 MG ORAL TABLET one tablet three times a day HALOPERIDOL 0.5 MG ORAL TABLET 004572 HALOPERIDOL Inactive BENZONATATE 200 MG ORAL CAPSULE 1 tab, 2-3 times a day BENZONATATE 200 MG ORAL CAPSULE 596143 BENZONATATE Inactive MECLIZINE HCL 25 MG ORAL TABLET 1 daily needed for dizziness 2015 MECLIZINE HCL 25 MG ORAL TABLET 872809 MECLIZINE HCL Inactive HYDROCHLOROTHIAZIDE 25 MG ORAL TABLET 1 tablet by mouth daily HYDROCHLOROTHIAZIDE 25 MG ORAL TABLET 733658 HYDROCHLOROTHIAZIDE Inactive PREDNISONE 20 MG ORAL TABLET Take 2 daily for 3 days and then 1 daily for 3 days PREDNISONE 20 MG ORAL TABLET 074240 PREDNISONE Inactive LISINOPRIL 5 MG ORAL TABLET 1 daily LISINOPRIL 5 MG ORAL TABLET 539953 LISINOPRIL Inactive METOPROLOL TARTRATE 25 MG ORAL TABLET 1/2 tablet twice a day METOPROLOL TARTRATE 25 MG ORAL TABLET 327099 METOPROLOL TARTRATE Inactive OMEPRAZOLE 20 MG ORAL CAPSULE DELAYED RELEASE 1 qd OMEPRAZOLE 20 MG ORAL CAPSULE DELAYED RELEASE 537589 OMEPRAZOLE Inactive SIMVASTATIN 80 MG ORAL TABLET 1/2 tablet daily SIMVASTATIN 80 MG ORAL TABLET 162470 SIMVASTATIN Inactive ASPIRIN 81 MG ORAL TABLET [...] 4 days PREDNISONE 20 MG ORAL TABLET 216699 PREDNISONE Inactive BENZONATATE 200 MG ORAL CAPSULE Take 1 tablet 3 times a day as needed for cough BENZONATATE 200 MG ORAL CAPSULE 973133 BENZONATATE Inactive AZITHROMYCIN 250 MG ORAL TABLET 2 po qd x 1 day, then 1 po qd x 4 days 05/07 AZITHROMYCIN 250 MG ORAL TABLET 114949 AZITHROMYCIN Inactive Immunizations Vaccine Administration Date Value [...] % 11.6-14.8 platelet count 294 10^3/MM^3 10*3/mm3 216-207 7734/05/29 leukocyte count, blood 2.4 10^3/MM^3 10*3/mm3 4.6-10.2 [...] % 11.6-14.8 platelet count 138 10^3/MM^3 10*3/mm3 965-304 8730/06/12 leukocyte count, blood 4.3 10^3/MM^3 10*3/mm3 4.6-10.2 [...] % 11.6-14.8 platelet count 355 10^3/MM^3 10*3/mm3 823-220 1128/06/19 leukocyte count, blood 2.2 10^3/MM^3 10*3/mm3 4.6-10.2 [...] Panel - Chemistry sodium, serum 137 mmol/L 712-422 9877/06/05 carbon dioxide, venous blood 26.0 mmol/L 21.0-32.0 potassium, serum 4.5 mmol/L 3.5-5.2 chloride, serum 100 mmol/L 98-107 blood glucose 100 mg/dL 65-95 urea nitrogen, blood 16 mg/dL 7-18 creatinine, serum 1.67 mg/dL 0.60-1.30 alanine aminotransferase (SGPT), serum 75 U/L 12-78 aspartate aminotransferase (SGOT), serum 46 U/L 15-37 calcium, serum 9.8 mg/dL 8.5-10.1 bilirubin, serum, total 0.40 mg/dL 0.00-1.00 sodium, serum 134 mmol/L 477-571 8513/05/15 carbon dioxide, venous blood 23.5 mmol/L 21.0-32.0 potassium, serum 4.8 mmol/L 3.5-5.2 chloride, serum 101 mmol/L 98-107 blood glucose 139 mg/dL 65- urea nitrogen, blood 19 mg/dL 7-18 creatinine, serum 1.79 mg/dL 0.60-1.30 alanine aminotransferase (SGPT), serum 140 U/L - aspartate aminotransferase (SGOT), serum 104 U/L 15-37 calcium, serum 8.5 mg/dL 8.5-10.1 bilirubin, serum, total 0.40 mg/dL 0.00-1.00 sodium, serum 139 mmol/L 631-822 8264/05/01 carbon dioxide, venous blood 25.2 mmol/L 21.0-32.0 potassium, serum 4.1 mmol/L 3.5-5.2 chloride, serum 104 mmol/L 98-107 blood glucose 64 mg/dL 65-95 urea nitrogen, blood 16 mg/dL 7-18 creatinine, serum 1.55 mg/dL 0.60-1.30 alanine aminotransferase (SGPT), serum 80 U/L aspartate aminotransferase (SGOT), serum 53 U/L - calcium, serum 8.1 mg/dL 8.5-10.1 bilirubin, serum, total 0.40 mg/dL 0.00-1.00 sodium, serum 135 mmol/L 564-308 0295/05/08 carbon dioxide, venous blood 29.0 mmol/L 21.0-32.0 potassium, serum 4.8 mmol/L 3.5-5.2 chloride, serum 101 mmol/L 98-107 blood glucose 165 mg/dL 65-95 urea nitrogen, blood 19 mg/dL 7-18 creatinine, serum 1.51 mg/dL 0.60-1.30 alanine aminotransferase (SGPT), serum 65 U/L aspartate aminotransferase (SGOT), serum 38 U/L calcium, serum 8.2 mg/dL 8.5-10.1 bilirubin, serum, total 0.50 mg/dL 0.00-1.00 sodium, serum 135 mmol/L 654-030 0816/04/10 carbon dioxide, venous blood 26.1 mmol/L 21.0-32.0 [...] % 11.6-14.8 platelet count 271 10^3/MM^3 10*3/mm3 956-014 0221/04/10 leukocyte count, blood 4.8 10^3/MM^3 10*3/mm3 4.6-10.2 [...] % 11.6-14.8 platelet count 200 10^3/MM^3 10*3/mm3 782-408 9491/05/15 leukocyte count, blood 1.7 10^3/MM^3 10*3/mm3 4.6-10.2 [...] % 11.6-14.8 platelet count 36 10^3/MM^3 10*3/mm3 225-966 7669/05/08 leukocyte count, blood 1.8 10^3/MM^3 10*3/mm3 4.6-10.2 [...] % 11.6-14.8 platelet count 103 10^3/MM^3 10*3/mm3 831-093 3543/06/05 leukocyte count, blood 2.7 10^3/MM^3 10*3/mm3 4.6-10.2 [...] Panel - Chemistry sodium, serum 134 mmol/L 215-416 6701/06/12 carbon dioxide, venous blood 21.9 mmol/L 21.0-32.0 potassium, serum 4.4 mmol/L 3.5-5.2 chloride, serum 97 mmol/L 98-107 blood glucose 191 mg/dL 65- urea nitrogen, blood 23 mg/dL 7- creatinine, serum 1.68 mg/dL 0.60-1.30 alanine aminotransferase (SGPT), serum 64 U/L aspartate aminotransferase (SGOT), serum 35 U/L 15- calcium, serum 8.9 mg/dL 8.5-10.1 bilirubin, serum, total 0.70 mg/dL 0.00-1.00 sodium, serum 132 mmol/L 725-956 7169/06/19 carbon dioxide, venous blood 20.9 mmol/L 21.0-32.0 potassium, serum 3.9 mmol/L 3.5-5.2 chloride, serum 102 mmol/L 98-107 blood glucose 259 mg/dL - urea nitrogen, blood 16 mg/dL - creatinine, serum 1.46 mg/dL 0.60-1.30 alanine aminotransferase (SGPT), serum 62 U/L aspartate aminotransferase (SGOT), serum 27 U/L 15- calcium, serum 7.5 mg/dL 8.5-10.1 bilirubin, serum, total 0.50 mg/dL 0.00-1.00 sodium, serum 136 mmol/L 063-555 4163/05/29 carbon dioxide, venous blood 22.4 mmol/L 21.0-32.0 potassium, serum 4.0 mmol/L 3.5-5.2 chloride, serum 104 mmol/L 98-107 blood glucose 128 mg/dL - urea nitrogen, blood 20 mg/dL - creatinine, serum 1.47 mg/dL 0.60-1.30 alanine aminotransferase (SGPT), serum 80 U/L aspartate aminotransferase (SGOT), serum 38 U/L 15-37 calcium, serum 9.1 mg/dL 8.5-10.1 bilirubin, serum, total 0.40 mg/dL 0.00-1.00 sodium, serum 134 mmol/L 191-466 3391/05/22 carbon dioxide, venous blood 25.2 mmol/L 21.0-32.0 [...] W/DIFF - Chemistry sodium, serum 137 mmol/L 265-728 9361/08/16 carbon dioxide, venous blood 26.3 mmol/L 21.0-32.0 [...] 4.3-6.0 Lab Report: [facility]id [facility] - Chemistry cholesterol, serum 115 mg/dL 721-424 9807/08/18 triglyceride, serum, fasting 89 mg/dL 30-200 HDL [...] mg/dL Encounters Code Encounter Date Provider Facility CPT-77385 [id number] Vst-Est Level IV 11:03:20 CDT Prosper Arenas MD [facility] CPT-52227 Level 3 Est. Patient 14:09:25 BISCUIT PACKER Dee Palmer APRN [facility] CPT-23900 Level 3 Est. Patient 10:53:32 BISCUIT PACKER Moy Garcia [facility] CPT-10666 Level 3 Est. Patient 17:11:55 BISCUIT PACKER Ismael Gracia MD [facility] CPT-70806 Level 4 Est. Patient 16:29:19 CDT Mekhi Dukes MD [facility] CPT-72802 Level 3 New Patient 17:05:24 CDT Ismael Gracia MD [facility] CPT-67297 Level 2 Est. Patient 15:43:17 CDT Mekhi Dukes MD [facility] CPT-22100 Level 3 Est. Patient 09:30:37 CDT Moy Garcia [facility] CPT-81846 Level 3 Est. Patient 10:00:14 CDT Mekhi Dukes MD [facility] CPT-63440 Level 3 Est. Patient 12:24:09 CDT Moy Garcia [facility] CPT-25836 Level 3 Est. Patient 14:34:57 CDT Prosper Arenas MD [facility] CPT-12382 Level 3 New Patient 15:44:53 BISCUIT PACKER Mekhi Dukes MD [facility] CPT-45382 Level 3 Est. Patient 14:53:34 BISCUIT PACKER Prosper Arenas MD [facility] CPT-25545 Level 4 Est. Patient 10:05:41 BISCUIT PACKER Moy Garcia [facility] CPT-34227 Level 3 Est. Patient 11:18:32 CDT Moy Garcia [facility] CPT-85867 Level 4 Est. Patient 11:05:10 CDT Moy Garcia [facility] CPT-90223 Level 3 Est. Patient 11:08:27 BISCUIT PACKER Moy Garcia [facility] CPT-54622 Level 4 Est. Patient 10:43:59 CDT Prosper Arenas MD [facility]-85529 Level 3 Est. Patient 10:51:19 CDT Moy Garcia [facility] CPT-87534 Level 3 Est. Patient 10:20:31 CDT Moy Garcia [facility] CPT-14233 Level 3 Est. Patient 17:08:45 [facility] Level 2 Est. Patient 13:54:36 CDT Augustina Mata APRN [facility]-88804 Level 3 Est. Patient 12:00:42 CDT Prosper Arenas MD [facility]-84572 Level 3 Est. Patient 09:57:28 BISCUIT PACKER Moy Garcia [facility] CPT-07655 Level 3 Est. Patient 11:41:19 BISCUIT PACKER Moy Garcia [facility] CPT-18042 Level 4 Est. Patient 17:07:35 BISCUIT PACKER Moy Garcia [facility] CPT-74746 Level 5 Est. [facility] 14:33:32 [facility]-45374 Level 3 Est. Patient 12:25:35 CDT Prosper Arenas MD [facility] Procedures Code Procedure Name Date Entry Date Standard Description CPT-54886 Chest, 2 views 14:17:20 BISCUIT PACKER CPT-20518 Postop F/U Visit 14:44:45 BISCUIT PACKER CPT-14101 Postop F/U Visit 17:20:20 BISCUIT PACKER CPT-G0439 Subsequent Annual Wellness Exam 08:39:41 BISCUIT PACKER CPT-000 Give Appropriate Flu Vaccine 10:13:55 BISCUIT PACKER CPT-000 Give Immunizations Due 10:13:55 BISCUIT PACKER CPT-57153 HGBA1C - LAB USE ONLY 09:42:47 BISCUIT PACKER CPT-18332 TPSA - LAB USE ONLY 09:42:46 BISCUIT PACKER CPT-94475 Venipuncture Draw Fee 09:42:46 BISCUIT PACKER CPT-18551 Port a cath flush 13:33:18 BISCUIT PACKER CPT-50578 First Vx - Ix admin for Medicare patients 10:42:57 BISCUIT PACKER CPT-17756 Fluzone Preservative Free Intramuscular Suspension 10:42 :57 BISCUIT PACKER CPT-G0438 Initial Annual Wellness Exam 10:13:55 BISCUIT PACKER CPT-000 Give Appropriate Flu Vaccine 10:44:04 CDT CPT-000 Give Pneumovax 10:44:03 CDT CPT-34238 Port a cath flush 17:04:43 CDT CPT-81583 Prevnar 13 11:19:17 CDT CPT-68078 Fluzone Quadrivalent preservative free (>=3yrs.) 11:19: 17 CDT CPT-59391 Immunization Each Additional Inj 11:19:17 CDT CPT-79345 Immunization Single Admin 11:19:17 CDT CPT-58520 Port a cath flush 13:28:22 CDT CPT-TCMM Transitional Care Mgmt-Moderate 13:40:15 CDT CPT-G0008 Administration of Influenza Virus Vaccine 13:59:20 CDT CPT-94961 Fluzone High-Dose Intramuscular Suspension 13:59:20 CDT CPT-30257 Venipuncture Draw Fee 09:56:19 CDT CPT-OV Office Visit 15:46:10 CDT
--- OUTSIDE RECORDS SUMMARY | 2017-09-29 21:09 | XMS REPORT | Clinical Summary ---
Author Author Admin, Kaylynn Organization [facility] [employer] Address Unknown Phone Unavailable Allergies, Adverse Reactions, Alerts Allergy Name Reaction Description Start Date Severity Status Provider ERYTHROMYCIN Stomach cramps Moderate Active Prosper Arenas MD CODEINE Critical Active Maliheh Ziglari HIGHWAY ADMINISTRATIVE ENGINEER DARVOCET Critical Active Maliheh Ziglari HIGHWAY ADMINISTRATIVE ENGINEER LEVAQUIN Critical Active Maliheh Ziglari HIGHWAY ADMINISTRATIVE ENGINEER Conditions or Problems Problem Name Problem Code Onset Date Status Entry Date Provider Comment Standard Description Annotate Diabetes, Type 2 250.00 Resolved 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 without mention of complication, type [...] type II, uncontrolled 250.02 Active Maliheh Rodrigoglari HIGHWAY ADMINISTRATIVE ENGINEER Diabetes mellitus without mention of complication, [...] with hyperglycemia 250.00 Active 03/[address] [employer]IG[address] ADMINISTRATIVE ENGINEER Diabetes mellitus without mention of complication, type II or unspecified type, not stated as uncontrolled [facility] use of insulin treatment V58.67 Active Luxiheh Rodrigoglari HIGHWAY ADMINISTRATIVE ENGINEER Long-term (current) use of insulin Diabetes mellitus, type II with hypoglycemia 250.80 Active 07/[address] [employer]IG[address] ADMINISTRATIVE ENGINEER Diabetes mellitus with other specified manifestations, type II or unspecified type, not stated as uncontrolled 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h Ziglari [employer]IGHWAY ADMINISTRATIVE ENGINEER Diabetes mellitus with renal manifestations, type II or unspecified type, not stated as uncontrolled Wellness exam V70.0 Active Dee Palmer APRN Routine general medical examination at a health care facility Fitting and adjustment of vascular catheter V58.81 Active 02/06 Dee Palmer APRN Encounter for fitting and adjustment of vascular catheter Unawareness of hypoglycemia in diabetes mellitus, type II 250.80 Active [address]h Rodrigoglari HIGHWAY ADMINISTRATIVE ENGINEER Diabetes mellitus with other specified manifestations, [...] specified as recurrent) Gastritis Inactive Maliheh Rodrigoglrex [employer]IGHWAY ADMINISTRATIVE ENGINEER Unspecified gastritis and gastroduodenitis, without mention [...] TABLET 1 daily for depression CITALOPRAM HYDROBROMIDE 85835513320 Active Prosper Arenas MD Active PREDNISONE 20 MG ORAL TABLET 2 tabs daily for 4 days, 1 tab daily for 4 days, 1/2 tab daily for 4 days PREDNISONE 85156847735 No Longer Active Prosper Arenas MD Active AZITHROMYCIN 250 MG ORAL TABLET 2 po qd x 1 day, then 1 po qd x 4 days 05/07 AZITHROMYCIN 27264065466 No Longer Active Dee Palmer APRN Active GUAIFENESIN DM 400-20 MG ORAL TABLET 1 pill by mouth twice daily, if needed for cough DEXTROMETHORPHAN-GUAIFENESIN 08761875882 Active Dee Palmer APRN Active ASPIRIN 81 MG ORAL TABLET 1 po qd ASPIRIN 36247703159 Active Dee Palmer APRN Active CALCIUM 500/D 500-200 MG-UNIT ORAL TABLET one tablet daily CALCIUM CARBONATE-VITAMIN D 12289974235 No Longer Active Dee Palmer APRN Active HYDROCODONE-ACETAMINOPHEN 7.5-325 MG ORAL TABLET 1-2 every 4-6 hrs prn 02/25 HYDROCODONE-ACETAMINOPHEN 33959247464 Active Marina King BESSY Active ASPIRIN 81 MG ORAL TABLET 1 tablet by mouth daily ASPIRIN 53985628039 No Longer Active Marina King BESSY Active SIMVASTATIN 80 MG ORAL TABLET 1/2 tablet daily SIMVASTATIN 96311022721 No Longer Active Mekhi Dukes MD Active OMEPRAZOLE 20 MG ORAL CAPSULE DELAYED RELEASE 1 qd OMEPRAZOLE 27424413295 No Longer Active Mekhi Dukes MD Active METOPROLOL TARTRATE 25 MG ORAL TABLET 1/2 tablet twice a day METOPROLOL TARTRATE 74046127063 No Longer Active Mekhi Dukes MD Active LISINOPRIL 5 MG ORAL TABLET 1 daily LISINOPRIL 92762498879 No Longer Active Mekhi Dukes MD Active NOVOLOG FLEXPEN 100 UNIT/ML SUBCUTANEOUS SOLUTION PEN-INJECTOR Take 8 units with each meal, add 1u/50 for blood sugars above 150. INSULIN ASPART 34848088223 Active Moy PARISH Active GABAPENTIN 300 MG ORAL CAPSULE 1 tab BID GABAPENTIN 51854475022 Active Tami Miller RN Active PREDNISONE 20 MG ORAL TABLET Take 2 daily for 3 days and then 1 daily for 3 days PREDNISONE 25253988306 No Longer Active Malpapo Wallaceglrex DURANTP Active BENZONATATE 200 MG ORAL CAPSULE Take 1 tablet 3 times a day as needed for cough BENZONATATE 81956604003 No Longer Active Prosper Arenas MD Active HYDROCHLOROTHIAZIDE 25 MG ORAL TABLET 1 tablet by mouth daily HYDROCHLOROTHIAZIDE 58164201952 No Longer Active Prosper Arenas MD Active ACCU-CHEK JOANNA PLUS IN VITRO STRIP check blood sugars 5x a day, before each meal and bedtime and 15 minutes after treating a low blood. sugar GLUCOSE BLOOD 07673493598 Active Maliheh Ziglari HIGHWAY ADMINISTRATIVE ENGINEER Active LANTUS SOLOSTAR 100 UNIT/ML SUBCUTANEOUS SOLUTION PEN-INJECTOR Take 40 units at 7-8pm daily INSULIN GLARGINE 25291225549 Active Maliheh Ziglari HIGHWAY ADMINISTRATIVE ENGINEER Active MECLIZINE HCL 25 MG ORAL TABLET 1 daily needed for dizziness 2015 MECLIZINE HCL 13083924561 No Longer Active Maliheh Ziglari HIGHWAY ADMINISTRATIVE ENGINEER Active BENZONATATE 200 MG ORAL CAPSULE 1 tab, 2-3 times a day BENZONATATE 46127478483 No Longer Active Maliheh Ziglari HIGHWAY ADMINISTRATIVE ENGINEER Active HALOPERIDOL 0.5 MG ORAL TABLET one tablet three times a day HALOPERIDOL 04603255937 No Longer Active Maliheh Ziglari HIGHWAY ADMINISTRATIVE ENGINEER Active TRAZODONE HCL 50 MG ORAL TABLET three tablets at bed time TRAZODONE HCL 26168915528 No Longer Active Maliheh Ziglari HIGHWAY ADMINISTRATIVE ENGINEER Active REVLIMID 25 MG ORAL CAPSULE one capsule daily for 21 days then off for 7 days LENALIDOMIDE 13476609018 No Longer Active Maliheh Ziglari HIGHWAY ADMINISTRATIVE ENGINEER Active ZITHROMAX Z-EDDIE 250 MG ORAL TABLET 2 today, then 1 daily for 4 days AZITHROMYCIN 17976142737 No Longer Active Augustina Mata APRN Active NOVOLIN R RELION 100 UNIT/ML INJECTION SOLUTION 30- 40 units each meal sliding scale INSULIN REGULAR HUMAN 40233563931 No Longer Active Maliheh Ziglari HIGHWAY ADMINISTRATIVE ENGINEER Active HYDROCODONE-ACETAMINOPHEN 5-500 MG ORAL TABLET 1-2 FOUR TIMES A DAY, PRN 2010 HYDROCODONE-ACETAMINOPHEN 58357352043 No Longer Active Prosper Arenas MD Active DOXYCYCLINE HYCLATE 100 MG ORAL CAPSULE take one capsule by mouth twice daily for ten days DOXYCYCLINE HYCLATE 67099669676 No Longer Active Mekhi Dukes MD Active DOXYCYCLINE HYCLATE 100 MG ORAL CAPSULE take one capsule by mouth twice daily for ten days DOXYCYCLINE HYCLATE 100 MG ORAL CAPSULE 3969890 DOXYCYCLINE HYCLATE Inactive HYDROCODONE-ACETAMINOPHEN 5-500 MG ORAL [...] days ZITHROMAX Z-EDDIE 250 MG ORAL TABLET 915488 AZITHROMYCIN Inactive REVLIMID 25 MG ORAL CAPSULE one capsule daily for 21 days then off for 7 days REVLIMID 25 MG ORAL CAPSULE LENALIDOMIDE Inactive TRAZODONE HCL 50 MG ORAL TABLET three tablets at bed time TRAZODONE HCL 50 MG ORAL TABLET 355198 TRAZODONE HCL Inactive HALOPERIDOL 0.5 MG ORAL TABLET one tablet three times a day HALOPERIDOL 0.5 MG ORAL TABLET 016429 HALOPERIDOL Inactive BENZONATATE 200 MG ORAL CAPSULE 1 tab, 2-3 times a day BENZONATATE 200 MG ORAL CAPSULE 565527 BENZONATATE Inactive MECLIZINE HCL 25 MG ORAL TABLET 1 daily needed for dizziness 2015 MECLIZINE HCL 25 MG ORAL TABLET 670244 MECLIZINE HCL Inactive HYDROCHLOROTHIAZIDE 25 MG ORAL TABLET 1 tablet by mouth daily HYDROCHLOROTHIAZIDE 25 MG ORAL TABLET 563037 HYDROCHLOROTHIAZIDE Inactive PREDNISONE 20 MG ORAL TABLET Take 2 daily for 3 days and then 1 daily for 3 days PREDNISONE 20 MG ORAL TABLET 649583 PREDNISONE Inactive LISINOPRIL 5 MG ORAL TABLET 1 daily LISINOPRIL 5 MG ORAL TABLET 538887 LISINOPRIL Inactive METOPROLOL TARTRATE 25 MG ORAL TABLET 1/2 tablet twice a day METOPROLOL TARTRATE 25 MG ORAL TABLET 599407 METOPROLOL TARTRATE Inactive OMEPRAZOLE 20 MG ORAL CAPSULE DELAYED RELEASE 1 qd OMEPRAZOLE 20 MG ORAL CAPSULE DELAYED RELEASE 848818 OMEPRAZOLE Inactive SIMVASTATIN 80 MG ORAL TABLET 1/2 tablet daily SIMVASTATIN 80 MG ORAL TABLET 092401 SIMVASTATIN Inactive ASPIRIN 81 MG ORAL TABLET [...] 4 days PREDNISONE 20 MG ORAL TABLET 115186 PREDNISONE Inactive BENZONATATE 200 MG ORAL CAPSULE Take 1 tablet 3 times a day as needed for cough BENZONATATE 200 MG ORAL CAPSULE 643267 BENZONATATE Inactive AZITHROMYCIN 250 MG ORAL TABLET 2 po qd x 1 day, then 1 po qd x 4 days 05/07 AZITHROMYCIN 250 MG ORAL TABLET 214779 AZITHROMYCIN Inactive Immunizations Vaccine Administration Date Value [...] % 11.6-14.8 platelet count 294 10^3/MM^3 10*3/mm3 619-532 6023/05/29 leukocyte count, blood 2.4 10^3/MM^3 10*3/mm3 4.6-10.2 [...] % 11.6-14.8 platelet count 138 10^3/MM^3 10*3/mm3 084-260 4637/06/12 leukocyte count, blood 4.3 10^3/MM^3 10*3/mm3 4.6-10.2 [...] % 11.6-14.8 platelet count 355 10^3/MM^3 10*3/mm3 392-634 4352/06/19 leukocyte count, blood 2.2 10^3/MM^3 10*3/mm3 4.6-10.2 [...] Panel - Chemistry sodium, serum 137 mmol/L 691-017 4371/06/05 carbon dioxide, venous blood 26.0 mmol/L 21.0-32.0 potassium, serum 4.5 mmol/L 3.5-5.2 chloride, serum 100 mmol/L 98-107 blood glucose 100 mg/dL 65- urea nitrogen, blood 16 mg/dL 7-18 creatinine, serum 1.67 mg/dL 0.60-1.30 alanine aminotransferase (SGPT), serum 75 U/L - aspartate aminotransferase (SGOT), serum 46 U/L 15-37 calcium, serum 9.8 mg/dL 8.5-10.1 bilirubin, serum, total 0.40 mg/dL 0.00-1.00 sodium, serum 134 mmol/L 956-152 6045/05/15 carbon dioxide, venous blood 23.5 mmol/L 21.0-32.0 potassium, serum 4.8 mmol/L 3.5-5.2 chloride, serum 101 mmol/L 98-107 blood glucose 139 mg/dL 65- urea nitrogen, blood 19 mg/dL 7- creatinine, serum 1.79 mg/dL 0.60-1.30 alanine aminotransferase (SGPT), serum 140 U/L - aspartate aminotransferase (SGOT), serum 104 U/L 15- calcium, serum 8.5 mg/dL 8.5-10.1 bilirubin, serum, total 0.40 mg/dL 0.00-1.00 sodium, serum 135 mmol/L 066-271 7822/05/08 carbon dioxide, venous blood 29.0 mmol/L 21.0-32.0 potassium, serum 4.8 mmol/L 3.5-5.2 chloride, serum 101 mmol/L 98-107 blood glucose 165 mg/dL 65- urea nitrogen, blood 19 mg/dL 7-18 creatinine, serum 1.51 mg/dL 0.60-1.30 alanine aminotransferase (SGPT), serum 65 U/L aspartate aminotransferase (SGOT), serum 38 U/L - calcium, serum 8.2 mg/dL 8.5-10.1 bilirubin, serum, total 0.50 mg/dL 0.00-1.00 sodium, serum 135 mmol/L 445-395 0572/04/10 carbon dioxide, venous blood 26.1 mmol/L 21.0-32.0 potassium, serum 4.2 mmol/L 3.5-5.2 chloride, serum 100 mmol/L 98-107 blood glucose 293 mg/dL 65-110 urea nitrogen, blood 18 mg/dL 7-18 creatinine, serum 2.06 mg/dL 0.60-1.30 alanine aminotransferase (SGPT), serum 59 U/L aspartate aminotransferase (SGOT), serum 47 U/L calcium, serum 8.6 mg/dL 8.5-10.1 bilirubin, serum, total 0.30 mg/dL 0.00-1.00 sodium, serum 139 mmol/L 244-911 9405/05/01 carbon dioxide, venous blood 25.2 mmol/L 21.0-32.0 [...] % 11.6-14.8 platelet count 103 10^3/MM^3 10*3/mm3 867-880 6738/05/01 leukocyte count, blood 5.0 10^3/MM^3 10*3/mm3 4.6-10.2 [...] % 11.6-14.8 platelet count 271 10^3/MM^3 10*3/mm3 903-295 7385/04/10 leukocyte count, blood 4.8 10^3/MM^3 10*3/mm3 4.6-10.2 [...] % 11.6-14.8 platelet count 200 10^3/MM^3 10*3/mm3 910-507 3073/05/15 leukocyte count, blood 1.7 10^3/MM^3 10*3/mm3 4.6-10.2 [...] % 11.6-14.8 platelet count 36 10^3/MM^3 10*3/mm3 215-424 3585/06/05 leukocyte count, blood 2.7 10^3/MM^3 10*3/mm3 4.6-10.2 [...] Panel - Chemistry sodium, serum 136 mmol/L 055-638 4335/05/29 carbon dioxide, venous blood 22.4 mmol/L 21.0-32.0 potassium, serum 4.0 mmol/L 3.5-5.2 chloride, serum 104 mmol/L 98-107 blood glucose 128 mg/dL - urea nitrogen, blood 20 mg/dL 7- creatinine, serum 1.47 mg/dL 0.60-1.30 alanine aminotransferase (SGPT), serum 80 U/L aspartate aminotransferase (SGOT), serum 38 U/L 15- calcium, serum 9.1 mg/dL 8.5-10.1 bilirubin, serum, total 0.40 mg/dL 0.00-1.00 sodium, serum 134 mmol/L 239-647 3390/05/22 carbon dioxide, venous blood 25.2 mmol/L 21.0-32.0 potassium, serum 5.0 mmol/L 3.5-5.2 chloride, serum 100 mmol/L 98-107 blood glucose 278 mg/dL urea nitrogen, blood 19 mg/dL - creatinine, serum 1.49 mg/dL 0.60-1.30 alanine aminotransferase (SGPT), serum 93 U/L aspartate aminotransferase (SGOT), serum 58 U/L calcium, serum 9.1 mg/dL 8.5-10.1 bilirubin, serum, total 0.20 mg/dL 0.00-1.00 sodium, serum 132 mmol/L 934-791 1543/06/19 carbon dioxide, venous blood 20.9 mmol/L 21.0-32.0 potassium, serum 3.9 mmol/L 3.5-5.2 chloride, serum 102 mmol/L 98-107 blood glucose 259 mg/dL - urea nitrogen, blood 16 mg/dL - creatinine, serum 1.46 mg/dL 0.60-1.30 alanine aminotransferase (SGPT), serum 62 U/L aspartate aminotransferase (SGOT), serum 27 U/L 15-37 calcium, serum 7.5 mg/dL 8.5-10.1 bilirubin, serum, total 0.50 mg/dL 0.00-1.00 sodium, serum 134 mmol/L 824-082 3377/06/12 carbon dioxide, venous blood 21.9 mmol/L 21.0-32.0 potassium, serum 4.4 mmol/L 3.5-5.2 chloride, serum 97 mmol/L 98-107 blood glucose 191 mg/dL 65-95 urea nitrogen, blood 23 mg/dL 7-18 creatinine, serum 1.68 mg/dL 0.60-1.30 alanine aminotransferase (SGPT), serum 64 U/L -78 aspartate aminotransferase (SGOT), serum 35 U/L 15-37 calcium, serum 8.9 mg/dL 8.5-10.1 bilirubin, serum, total 0.70 mg/dL 0.00-1.00 Lab Report: Comp. Metabolic Panel, CBC W/DIFF - Chemistry sodium, serum 137 mmol/L 553-453 1471/08/16 carbon dioxide, venous blood 26.3 mmol/L 21.0-32.0 potassium, serum 4.4 mmol/L 3.5-5.2 chloride, serum 104 mmol/L 98-107 blood glucose 138 mg/dL 65-110 urea nitrogen, blood 23 mg/dL 7-18 creatinine, serum 2.38 mg/dL 0.60-1.30 alanine aminotransferase (SGPT), serum 96 U/L -78 aspartate aminotransferase (SGOT), serum 85 U/L 15-37 [...] 4.3-6.0 Lab Report: [facility]id [facility], [facility]- [facility] Chemistry cholesterol, serum 115 mg/dL 167-042 2424/08/18 triglyceride, serum, fasting 89 mg/dL 30-200 HDL [...] mg/dL Encounters Code Encounter Date Provider Facility CPT-44934 [id number] Vst-Est Level IV 11:03:20 CDT Prosper Arenas MD [facility] CPT-31090 Level 3 Est. Patient 14:09:25 VALVING MACHINE OPERATOR Dee Palmer APRN [facility] CPT-74265 Level 3 Est. Patient 10:53:32 VALVING MACHINE OPERATOR Moy Garcia [facility] CPT-34687 Level 3 Est. Patient 17:11:55 VALVING MACHINE OPERATOR Ismael Gracia MD [facility] CPT-80422 Level 4 Est. Patient 16:29:19 CDT Mekhi Dukes MD [facility] CPT-85406 Level 3 New Patient 17:05:24 CDT Ismael Gracia MD [facility] CPT-16846 Level 2 Est. Patient 15:43:17 CDT Mekhi Dukes MD [facility] CPT-07352 Level 3 Est. Patient 09:30:37 CDT Moy Garcia [facility] CPT-42917 Level 3 Est. Patient 10:00:14 CDT Mekhi Dukes MD [facility] CPT-06551 Level 3 Est. Patient 12:24:09 CDT Moy Garcia [facility] CPT-62665 Level 3 Est. Patient 14:34:57 CDT Prosper Arenas MD [facility] CPT-43316 Level 3 New Patient 15:44:53 VALVING MACHINE OPERATOR Mekhi Dukes MD [facility] CPT-03224 Level 3 Est. Patient 14:53:34 VALVING MACHINE OPERATOR Prosper Arenas MD [facility] CPT-15468 Level 4 Est. Patient 10:05:41 VALVING MACHINE OPERATOR Moy Garcia [facility] CPT-04278 Level 3 Est. Patient 11:18:32 CDT Moy Garcia [facility] CPT-27410 Level 4 Est. Patient 11:05:10 CDT Moy Garcia [facility] CPT-26164 Level 3 Est. Patient 11:08:27 VALVING MACHINE OPERATOR Moy Garcia [facility] CPT-44572 Level 4 Est. Patient 10:43:59 CDT Prosper Arenas MD [facility]-27487 Level 3 Est. Patient 10:51:19 CDT Moy Garcia [facility] CPT-41259 Level 3 Est. Patient 10:20:31 CDT Moy Garcia [facility] CPT-06320 Level 3 Est. Patient 17:08:45 [facility] Level 2 Est. Patient 13:54:36 CDT Augustina Mata APRN [facility]-81295 Level 3 Est. Patient 12:00:42 CDT Prosper Arenas MD [facility]-53063 Level 3 Est. Patient 09:57:28 VALVING MACHINE OPERATOR Moy Garcia [facility] CPT-31127 Level 3 Est. Patient 11:41:19 VALVING MACHINE OPERATOR Moy Garcia [facility] CPT-84492 Level 4 Est. Patient 17:07:35 VALVING MACHINE OPERATOR Moy Garcia [facility] CPT-84463 Level 5 Est. Patient 14:33:32 [facility]-97249 Level 3 Est. Patient 12:25:35 CDT Prosper Arenas MD [facility] Procedures Code Procedure Name Date Entry Date Standard Description CPT-54323 Chest, 2 views 14:17:20 VALVING MACHINE OPERATOR CPT-82971 Postop F/U Visit 14:44:45 VALVING MACHINE OPERATOR CPT-19081 Postop F/U Visit 17:20:20 VALVING MACHINE OPERATOR CPT-G0439 Subsequent Annual Wellness Exam 08:39:41 VALVING MACHINE OPERATOR CPT-000 Give Appropriate Flu Vaccine 10:13:55 VALVING MACHINE OPERATOR CPT-000 Give Immunizations Due 10:13:55 VALVING MACHINE OPERATOR CPT-54607 HGBA1C - LAB USE ONLY 09:42:47 VALVING MACHINE OPERATOR CPT-77956 TPSA - LAB USE ONLY 09:42:46 VALVING MACHINE OPERATOR CPT-99338 Venipuncture Draw Fee 09:42:46 VALVING MACHINE OPERATOR CPT-50822 Port a cath flush 13:33:18 VALVING MACHINE OPERATOR CPT-90565 First Vx - Ix admin for Medicare patients 10:42:57 VALVING MACHINE OPERATOR CPT-83819 Fluzone Preservative Free Intramuscular Suspension 10:42 :57 VALVING MACHINE OPERATOR CPT-G0438 Initial Annual Wellness Exam 10:13:55 VALVING MACHINE OPERATOR CPT-000 Give Appropriate Flu Vaccine 10:44:04 CDT CPT-000 Give Pneumovax 10:44:03 CDT CPT-47520 Port a cath flush 17:04:43 CDT CPT-21699 Prevnar 13 11:19:17 CDT CPT-13493 Fluzone Quadrivalent preservative free (>=3yrs.) 11:19: 17 CDT CPT-50643 Immunization Each Additional Inj 11:19:17 CDT CPT-70253 Immunization Single Admin 11:19:17 CDT CPT-55562 Port a cath flush 13:28:22 CDT CPT-TCMM Transitional Care Mgmt-Moderate 13:40:15 CDT CPT-G0008 Administration of Influenza Virus Vaccine 13:59:20 CDT CPT-27648 Fluzone High-Dose Intramuscular Suspension 13:59:20 CDT CPT-15053 Venipuncture Draw Fee 09:56:19 CDT CPT-OV Office Visit 15:46:10 CDT
[2017-09-29 21:22] LABS: BASOPHILS # (AUTO) 0.1 10^3/uL (0.0-0.1); BASOPHILS % (AUTO) 1 % (0-10); EOSINOPHILS # (AUTO) 0.1 10^3/uL (0.0-0.3); EOSINOPHILS % (AUTO) 1 % (0-10); HEMATOCRIT 40 % (40-54); LYMPHOCYTES # (AUTO) 1.5 X 10^3 (1.0-4.0); LYMPHOCYTES % (AUTO) 21 % (12-44); MEAN CORPUSCULAR HEMOGLOBIN 33 PG (25-34); MEAN CORPUSCULAR HGB CONC 38 G/DL (32-36); MEAN CORPUSCULAR VOLUME 87 FL (80-99); MEAN PLATELET VOLUME 9.5 FL (7.4-10.4); MONOCYTES # (AUTO) 1.8 X 10^3 (0.0-1.0); MONOCYTES % (AUTO) 25 % (0-12); NEUTROPHILS # (AUTO) 3.7 X 10^3 (1.8-7.8); NEUTROPHILS % (AUTO) 52 % (42-75); PLATELET COUNT 426 10^3/uL (130-400); RED BLOOD COUNT 4.55 10^6/uL (4.35-5.85); RED CELL DISTRIBUTION WIDTH 12.1 % (10.0-14.5); WHITE BLOOD COUNT 7.1 10^3/uL (4.3-11.0)
--- NOTE | 2017-09-29 21:33 | Diagnostic Imaging Report ---
INDICATION: Left-sided chest pain after a fall. COMPARISON: Chest radiograph of 09/20/2017. FINDINGS: No pneumothorax or pleural effusion. No acute left-sided rib fracture. Old healed fracture of the lateral left 10th rib. Stable left sided Port-A-Cath. IMPRESSION: 1. No pneumothorax or pleural effusion. 2. No acute rib fracture on the left. Dictated by: Dictated on workstation # [id number]
[2017-09-29 21:41] LABS: BAND NEUTROPHILS 0 %; BASOPHILS % (MANUAL) 1 %; EOSINOPHILS % (MANUAL) 0 %; LYMPHOCYTES % (MANUAL) 30 %; MONOCYTES % (MANUAL) 16 %; NEUTROPHILS % (MANUAL) 53 %
[2017-09-29 21:42] LABS: RBC MORPH NORMAL
[2017-09-29 21:48] LABS: ALANINE AMINOTRANSFERASE 47 U/L (0-55); ALKALINE PHOSPHATASE 83 U/L (40-136); BILIRUBIN,TOTAL 0.9 MG/DL (0.1-1.0); BUN/CREATININE RATIO 11; CALCIUM 8.8 MG/DL (8.5-10.1); CARBON DIOXIDE 13 MMOL/L (21-32); CHLORIDE 99 MMOL/L (98-107); CREATININE SERUM 1.38 MG/DL (0.60-1.30); GFR ESTIMATED > 60; GLUCOSE 139 MG/DL (70-105); POTASSIUM 4.1 MMOL/L (3.6-5.0); SODIUM 126 MMOL/L (135-145); TOTAL PROTEIN 6.8 GM/DL (6.4-8.2)
[2017-09-29 22:34] LABS: BILIRUBIN,URINE NEGATIVE (NEGATIVE); CLARITY,URINE CLEAR; COLOR,URINE YELLOW; GLUCOSE, URINE (UA) NEGATIVE (NEGATIVE); KETONES,URINE NEGATIVE (NEGATIVE); LEUKOCYTE ESTERASE ,URINE NEGATIVE (NEGATIVE); NITRITE,URINE NEGATIVE (NEGATIVE); PH,URINE 7 (5-9); PROTEIN,URINE 1+ (NEGATIVE); UROBILINOGEN,URINE 4 MG/DL (NORMAL)
[2017-09-29 22:41] LABS: RBC,URINE 0-2 /HPF
[2017-09-29 22:42] LABS: BACTERIA,URINE NEGATIVE /HPF; WBC,URINE RARE /HPF
[2017-09-29 23:29] VITALS: BP 142/79
[2017-10-04] MEDS ORDERED: DIPH1TAB PO (11:38)
[2017-10-07] MEDS ORDERED: HYDR-3816 PO (08:48)
== END 2017-09-29 23:28 | disposition home or self-care (01) ==
LOC: EDUNIT# 20:31 → ER 20:32
DX: R07.81 Pleurodynia (principal); I25.2 Old myocardial infarction; I25.10 Atherosclerotic heart disease of native coronary artery without angina pectoris; E78.00 Pure hypercholesterolemia, unspecified; E11.9 Type 2 diabetes mellitus without complications; R40.2142 Coma scale, eyes open, spontaneous, at arrival to emergency department; R40.2252 Coma scale, best verbal response, oriented, at arrival to emergency department; R40.2362 Coma scale, best motor response, obeys commands, at arrival to emergency department; I10 Essential (primary) hypertension; K21.9 Gastro-esophageal reflux disease without esophagitis; Z85.79 Personal history of other malignant neoplasms of lymphoid, hematopoietic and related tissues; Z87.19 Personal history of other diseases of the digestive system; Z88.5 Allergy status to narcotic agent; Z88.8 Allergy status to other drugs, medicaments and biological substances; Z88.0 Allergy status to penicillin; Z79.82 Long term (current) use of aspirin; Z79.4 Long term (current) use of insulin; Z87.891 Personal history of nicotine dependence; Z95.5 Presence of coronary angioplasty implant and graft; Z87.01 Personal history of pneumonia (recurrent); W18.30XA Fall on same level, unspecified, initial encounter; Y92.002 Bathroom of unspecified non-institutional (private) residence as the place of occurrence of the external cause
CPT/HCPCS: 36415; 70450; 71100; 80053; 81000; 85007; 85027; 96374

== ENCOUNTER 2017-10-04 01:15 | Inpatient (IN) | payer MEDICARE ==
[2017-10-04] VITALS (18 sets, daily range): BP systolic 85–132; BP diastolic 52–110
[~2017-10-04] VITALS: Ht 165.1 cm; Wt 74.0 kg
[2017-10-04] MEDS ORDERED: LACTATED RINGERS 1,000 ML IV ONE (01:22)
[2017-10-04] MEDS ORDERED: PHENYTOIN INJECTION 1,000 MG in NS (IVPB) 50 ML, 0.2 MICRON FILTER IV SET 1 EACH IV ONE ×3 (01:30)
[2017-10-04 01:37] LABS: BASOPHILS % (AUTO) 0 % (0-10); EOSINOPHILS % (AUTO) 0 % (0-10); HEMATOCRIT 37 % (40-54); HEMOGLOBIN 13.8 G/DL (13.3-17.7); LYMPHOCYTES # (AUTO) 0.9 X 10^3 (1.0-4.0); LYMPHOCYTES % (AUTO) 9 % (12-44); MEAN CORPUSCULAR HEMOGLOBIN 33 PG (25-34); MEAN CORPUSCULAR HGB CONC 38 G/DL (32-36); MEAN CORPUSCULAR VOLUME 86 FL (80-99); MEAN PLATELET VOLUME 9.2 FL (7.4-10.4); MONOCYTES # (AUTO) 1.1 X 10^3 (0.0-1.0); MONOCYTES % (AUTO) 11 % (0-12); NEUTROPHILS % (AUTO) 80 % (42-75); PLATELET COUNT 313 10^3/uL (130-400); RED BLOOD COUNT 4.24 10^6/uL (4.35-5.85); WHITE BLOOD COUNT 9.9 10^3/uL (4.3-11.0)
[2017-10-04] MEDS ORDERED: PHENYTOIN 250 MG/5 ML INJ (DILANTIN) VIAL ONE (01:39)
[2017-10-04] MEDS ORDERED: NS (IVPB) 50 ML ONE (01:39)
[2017-10-04 01:53] LABS: INR 1.2 (0.8-1.4); PROTHROMBIN TIME PATIENT 14.9 SEC (12.2-14.7)
[2017-10-04 01:56] LABS: ALANINE AMINOTRANSFERASE 40 U/L (0-55); ALBUMIN 3.9 GM/DL (3.2-4.5); ALKALINE PHOSPHATASE 77 U/L (40-136); BILIRUBIN,TOTAL 0.6 MG/DL (0.1-1.0); BUN/CREATININE RATIO 16; CALCIUM 8.7 MG/DL (8.5-10.1); CARBON DIOXIDE 12 MMOL/L (21-32); CHLORIDE 102 MMOL/L (98-107); CREATINE KINASE 50 U/L (30-200); CREATININE SERUM 1.47 MG/DL (0.60-1.30); GFR ESTIMATED 58; GLUCOSE 191 MG/DL (70-105); MAGNESIUM 2.6 MG/DL (1.8-2.4); POTASSIUM 3.3 MMOL/L (3.6-5.0); SODIUM 127 MMOL/L (135-145); TOTAL PROTEIN 6.6 GM/DL (6.4-8.2)
[2017-10-04 02:02] LABS: ACETAMINOPHEN < 10 UG/ML (10-30)
[2017-10-04 02:16] LABS: CREATINE KINASE MB 1.3 NG/ML (<6.6); MYOGLOBIN SERUM 83.3 NG/ML (10.0-92.0); TSH (THYROID ANALYZER) 0.29 UIU/ML (0.35-4.94)
[2017-10-04] MEDS ORDERED: NS W/KCL 20 MEQ/L 1,000 ML IV ONE ×2 (02:30→05:15)
[2017-10-04 02:49] LABS: FREE T4 (FREE THYROXINE) 1.35 NG/DL (0.70-1.48)
[2017-10-04] MEDS ORDERED: ONDANSETRON 4 MG/2 ML (SDV) Z0FRAN IVP PRN (05:15)
[2017-10-04] MEDS ORDERED: LORazepam INJ 2 MG/ML (ATIVAN) VIAL IVP PRN (05:15)
[2017-10-04 05:46] LABS: BILIRUBIN,URINE NEGATIVE (NEGATIVE); CLARITY,URINE SLIGHTLY CLOUDY; COLOR,URINE YELLOW; GLUCOSE, URINE (UA) NEGATIVE (NEGATIVE); KETONES,URINE 1+ (NEGATIVE); LEUKOCYTE ESTERASE ,URINE NEGATIVE (NEGATIVE); NITRITE,URINE NEGATIVE (NEGATIVE); PH,URINE 5 (5-9); PROTEIN,URINE 2+ (NEGATIVE); UROBILINOGEN,URINE NORMAL (NORMAL)
[2017-10-04 05:56] LABS: AMPHETAMINE SCREEN, URINE NEGATIVE (NEGATIVE); BACTERIA,URINE NEGATIVE /HPF; BARBITURATE SCREEN URINE POSITIVE (NEGATIVE); BENZODIAZEPINES SCREEN URINE NEGATIVE (NEGATIVE); CANNABINOID SCREEN, URINE NEGATIVE (NEGATIVE); COCAINE SCREEN URINE NEGATIVE (NEGATIVE); METHADONE STAT NEGATIVE (NEGATIVE); METHAMPHETAMINE SCREEN URINE S NEGATIVE (NEGATIVE); OPIATE SCREEN URINE NEGATIVE (NEGATIVE); OXYCODONE STAT NEGATIVE (NEGATIVE); PROPOXYPHENE STAT NEGATIVE (NEGATIVE); TRICYCLIC ANTIDEPRESSANTS SCRE NEGATIVE (NEGATIVE)
[2017-10-04] MEDS ORDERED: KCL 20 MEQ TAB (K-DUR) PO SCH (06:00)
[2017-10-04] MEDS ORDERED: MAGNESIUM 1 GM/100 ML IVPB 100 ML IV SCH (06:00)
[2017-10-04] MEDS ORDERED: POTASSIUM CL 10MEQ/50ML IVPB 50 ML IV SCH (06:00)
[2017-10-04] MEDS: inSUlin ASPART (NovoLOG) 1 UNIT/0.01 ML (CHARGE PER UNIT) SC SCH ×2 (06:14→11:07)
--- NOTE | 2017-10-04 06:23 | Pulmonary Consultation ---
History of Present Illness History of Present Illness Date of Consultation 10/04/17 06:17 Time Seen by Provider: 06:18 Date of Admission History of Present Illness 67yo with hx of MM currently undergoing chemotherapy (Last chemo was 10/02) presented secondary to MS changes and questionable seizures. PT has had a recent admission 09/29/17 secondary to a fall. While in the ED pt went unresponsive. No tonic clonic mvmts however he did have a blank stare. Pt has also had orthostatic hypotensive with SPB in the 80's when setting up to urinate. Pt also complains of dizziness and diarrhea. PT has had 2 liters of IVF total. Urine is very concentrated. I am consulted for ICU management. Allergies and Home Medications Allergies Coded Allergies: codeine (Unverified Allergy, Unknown, 08/25/17) levofloxacin (Unverified Allergy, Unknown, 08/25/17) niacin (Unverified Allergy, Unknown, 08/25/17) Uncoded Allergies: DARVOCET (Allergy, Unknown, 08/25/17) ERYTHROMYCIN (Allergy, Unknown, 08/25/17) Home Medications Acyclovir 400 Mg Tablet, 400 MG PO BID, (Reported) Calcium Carbonate/Vitamin D3 1 Each Tablet, 1 TAB PO BID, (Reported) Diphenoxylate HCl/Atropine 1 Each Tablet, 1 EACH PO Q4H PRN for diarrhea Prescribed by: MAURI REYES on 10/04/17 1138 Gabapentin 300 Mg Capsule, 300 MG PO TID, (Reported) Hydrocodone/Acetaminophen 1 Each Tablet, 1 TAB PO TID PRN for PAIN-MODERATE Prescribed by: PHIL DEL CID on 10/07/17 0848 Insulin Aspart 300 Units/3 Ml Solution, 6-7 UNITS SQ AC, (Reported) Insulin Glargine,Hum.rec.anlog 100 Unit/1 Ml Vial, 35 UNIT SQ HS, (Reported) L.acidoph & Paracasei,B.lactis 1 Each Capsule, 1 CAP PO AC, (Reported) Megestrol Acetate 20 Mg Tablet, 40 MG PO DAILY, (Reported) Omeprazole 20 Mg Capsule.dr, 20 MG PO DAILY, (Reported) Ondansetron HCl 8 Mg Tablet, 8 MG PO Q8H PRN for NAUSEA/VOMITING-1ST LINE, ( Reported) Past Mqmllcl-Wkhjnm-Osfcef Hx Patient Social History Alcohol Use: Past History Number of Drinks Today: BB Alcohol Beverage of Choice: Zenda Recreational Drug Use: No Drug of Choice: OPIATES Smoking Status: Former Smoker Type Used: Cigarettes Former Smoker, Quit: Jan 08, 1973 2nd Hand Smoke Exposure: No Recent Foreign Travel: No Contact w/Someone Who Travel: No Recent Infectious Disease Expo: No Recent Hopitalizations: Yes Immunizations Up To Date Date of Pneumonia Vaccine: Jan 09, 2015 Seasonal Allergies Seasonal Allergies: No Past Medical History Surgeries: Yes Abdominal, Cardiac, Coronary Stent, Orthopedic Respiratory: Yes (MULTIPLE EPISODES OF PNEUMONIA; RIGHT PNEUMOTHORAX FROM TRAUMA 1992) Pneumonia Currently Using CPAP: No Currently Using BIPAP: No Cardiac: Yes (TX X 3--CARDIAC CATHS-STENT X 1) Coronary Artery Disease, Heart Attack, High Cholesterol, Hypotension Neurological: Yes (MULTIPLE MYELOMA) Sexually Transmitted Disease: No HIV/AIDS: No Genitourinary: No Gastrointestinal: Yes Abdominal Hernia, Gastroesophageal Reflux, Hepatitis Musculoskeletal: Yes Fractures Endocrine: Yes Diabetes, Insulin dep HEENT: Yes (WISDOM TEETH REMOVAL; WEARS GLASSES) Cataract Loss of Vision: Denies Hearing Impairment: Denies Cancer: Yes (MULTIPLE MYELOMA--DIAGNOSED AROUND 2003, 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) Did You Recieve Any Treatments: Yes What Type of Treatment Did You: Chemotherapy last chemo 10/02/17 Psychosocial: No Integumentary: No Blood Disorders: Yes (PANCYTOPENIA ON CHEMO) Adverse Reaction/Blood Tranf: No Family Medical History Cancer Review of Systems Time Seen by Provider: 08:48 Exam Exam Vital Signs Date Time Temp Pulse Resp B/P (MAP) Pulse Ox O2 Delivery O2 Flow Rate FiO2 10/04/17 06:00 78 26 101/56 (71) 99 Room Air 10/04/17 05:45 75 26 95/57 (70) 98 Room Air 10/04/17 05:30 83 36 85/67 (73) 98 Room Air 10/04/17 05:15 76 26 92/56 (68) 100 Room Air 10/04/17 05:00 77 28 99/62 (74) 100 Room Air 10/04/17 04:45 75 26 100/61 (74) 98 Room Air 10/04/17 04:37 78 10/04/17 04:30 100 Room Air 10/04/17 04:20 97.2 81 22 127/110 (116) 100 Room Air 10/04/17 04:15 97.0 78 16 111/59 98 Room Air 10/04/17 04:15 97.0 78 16 111/59 (136) 98 Room Air 10/04/17 01:15 97.0 94 15 192/108 (136) 100 Room Air I & O 10/04/17 07:00 Intake Total 2070 ml Output Total 250 ml Balance 1820 ml PULEXAM Height: 5', 5.00" Weight: 163lbs 2.0oz, 73.463732eg Method:Stated ,27.1BMI General Appearance: Mild Distress Neck: Non Tender, Supple Respiratory: No Accessory Muscle Use, No Respiratory Distress, Decreased Breath Sounds Cardiovascular: Regular Rate, Rhythm, No Gallop, No Murmur Capillary Refill: Less Than 3 Seconds Gastrointestinal: normal bowel sounds, non tender, soft, no organomegaly Extremity: Normal Inspection Neurologic/Psychiatric: Alert, Oriented x3 Skin: Normal Color, Warm/Dry Lymphatic: No Adenopathy Results Lab Laboratory Tests 10/04/17 01:25 Assessment/Plan Assessment/Plan Syncope with MS changes- ? seizure per ER. -UA - is negative -UDS is positive for barbiturates -No loss of urine -Check echo - carotid dopplers. Dehydration with orthostatic hypotension -IVF NS with 20meq of KCL at 150 -He has had 2 liters of IVF -Will transfuse another liter of NS Hypokalemia -Replace after pending labs Acute renal failure - prerenal -IVF Diarrhea -PT states he always has after chemo LICHA ZAVALA DO Oct 04, 2017 06:23
[2017-10-04] MEDS ORDERED: NS IV 500 ML 500 ML IV SCH (06:26)
--- NOTE | 2017-10-04 06:44 | Diagnostic Imaging Report ---
EXAMINATION: Portable erect AP chest at 0206 AM INDICATION: Chest pain The heart size is within normal limits and stable when compared to 09/20/2017. The lungs are clear. There is no sign of failure, pneumonia or of a pleural effusion to indicate an acute abnormality. The mediastinum is not widened. The osseous structures are intact. The left-sided Port-A-Cath seen previously is again evident and no different. IMPRESSION: There is no evidence for an acute cardiopulmonary abnormality. Dictated by: Dictated on workstation # [id number]
[2017-10-04] MEDS ORDERED: NS IV 1000 ML 1,000 ML ONE (06:46)
[2017-10-04] MEDS ORDERED: NS IV 1000 ML 1,000 ML IV SCH (07:00)
[2017-10-04] MEDS ORDERED: NS IV 1000 ML 1,000 ML IV PRN (07:00)
--- NOTE | 2017-10-04 07:05 | ED General ---
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 Pt is responding on initial contact as escorted via WC into ED. Pt had a seizure earlier on Thursday morning and has a recent ER visit with a fall. Pt had chemo yesterday Nursing Sepsis Screen: No Definite Risk Source of Information: Patient, Old Records (SEE CHART FROM 08/25/17), Other ( FEMALE S.O.) History of Present Illness Date Seen by Provider: Oct 04, 2017 Time Seen by Provider: 01:13 Initial Comments PT ARRIVES VIA POV--PT HAD TO BE PULLED OUT OF VEHICLE BY MULTIPLE ER STAFF--PT IS MINIMALY RESPONSIVE ON ARRIVAL IN VEHICLE ON ARRIVAL PT IS MINIMALLY RESPONSIVE, HAS STUTTERING WHEN TRYING TO SPEAK, AND IS NOT MAKING ANY AUDIBLE WORDS A COUPLE OF MINUTES AFTER ARRIVAL, PT IS AWAKE, ORIENTED X 4, TALKING WITHOUT DIFFICULTY, AND ABLE TO FOLLOW COMMANDS AND ASSIST WITH TRANSFERRING FROM WHEELCHAIR TO ER CART PT HAD 2 SEIZURES WITNESSED BY FEMALE S.O. --FIRST ONE WAS AT 0045--LASTED APPROXIMATELY A MINUTE SECOND ONE OCCURRED APPROXIMATELY 15 MINUTES LATER AND LASTED LESS THAN A MINUTE PT WAS SITTING ON BEDSIDE COMMODE AT THE TIME AND FEMALE S.O. REPORTS THAT PT'S ENTIRE BODY WENT RIGID, INCLUDING HIS HEAD/FACE/NECK, AND THEN HE SLUMPED OVER AND WOULD NOT RESPOND FOR SEVERAL MINUTES AFTER. NO ASSOCIATED INJURIES WITH THESE --DID NOT FALL OFF COMMODE OR HIT ANYTHING PT STATES HE ALSO HAD THE SAME THING HAPPEN EARLIER TODAY WHEN FEMALE S.O. WAS AT WORK--AROUND 11:30 AM STATES HE WAS WALKING TO THE BATHROOM AND "STARTED TO FEEL BAD" AND WOKE UP ON THE FLOOR, ON HIS BACK--DENIES ANY INJURY OR PAIN FROM THAT INCIDENT PT STATES WHEN THESE EPISODES OCCUR, HE WILL BECOME VERY WEAK AND TIRED, AND DIZZY, VERY HOT, AND FEELS LIKE HE CAN'T BREATHE. STATES HE WILL ALSO START RUBBING HIS HANDS TOGETHER AND CAN'T STOP HE HAS NEVER HAD ANYTHING LIKE THIS BEFORE. PT IS CURRENTLY BEING TREATED FOR MULTIPLE MYELOMA PT STATES HE HAS DIARRHEA EVERY TIME AFTER HE HAS CHEMO HAD CHEMO YESTERDAY (Thursday10/02/17 ) AND HAS HAD 8-10 WATERY DIARRHEA STOOLS SINCE LAST NIGHT--NO BLACK/BLOODY/TARRY STOOLS NO ABDOMINAL PAIN NO NAUSEA/VOMITING, BUT HAS HAD DECREASED APPETITE, BUT IS STILL EATING AND DRINKING FLUIDS STATES HE IS URINATING A NORMAL AMOUNT AND NO PAIN OR DIFFICULTY URINATING NO FEVER OR CHILLS NO COUGH OR URI SYMPTOMS OR RECENT ILLNESS NO CHEST PAIN OR PALPITATIONS NO CHANGES IN ANY OF HIS MEDICATIONS PT HAS HAD 6 VISITS SINCE 08/25/17 HAD A CARDIAC CATH 09/13/[address] JOE-PT WAS C/O CHEST PAIN ON THAT VISIT-- MILD DISEASE, PATENT STENT. NO INTERVENTION PT HAS HISTORY OF CAD/ME AND STENTS Allergies and Home Medications Allergies Coded Allergies: codeine (Unverified Allergy, Unknown, 08/25/17) levofloxacin (Unverified Allergy, Unknown, 08/25/17) niacin (Unverified Allergy, Unknown, 08/25/17) Uncoded Allergies: DARVOCET (Allergy, Unknown, 08/25/17) ERYTHROMYCIN (Allergy, Unknown, 08/25/17) Home Medications Acyclovir 400 Mg Tablet, 400 MG PO BID, (Reported) Calcium Carbonate/Vitamin D3 1 Each Tablet, 1 TAB PO BID, (Reported) Diphenoxylate HCl/Atropine 1 Each Tablet, 1 EACH PO Q4H PRN for diarrhea Prescribed by: MAURI REYES on 10/04/17 1138 Gabapentin 300 Mg Capsule, 300 MG PO TID, (Reported) Hydrocodone/Acetaminophen 1 Each Tablet, 1 TAB PO TID PRN for PAIN-MODERATE Prescribed by: PHIL DEL CID on 10/07/17 0848 Insulin Aspart 300 Units/3 Ml Solution, 6-7 UNITS SQ AC, (Reported) Insulin Glargine,Hum.rec.anlog 100 Unit/1 Ml Vial, 35 UNIT SQ HS, (Reported) L.acidoph & Paracasei,B.lactis 1 Each Capsule, 1 CAP PO AC, (Reported) Megestrol Acetate 20 Mg Tablet, 40 MG PO DAILY, (Reported) Omeprazole 20 Mg Capsule.dr, 20 MG PO DAILY, (Reported) Ondansetron HCl 8 Mg Tablet, 8 MG PO Q8H PRN for NAUSEA/VOMITING-1ST LINE, ( Reported) Patient Home Medication List Home Medication List Reviewed: Yes Review of Systems Constitutional: see HPI EENTM: no symptoms reported Respiratory: see HPI Cardiovascular: see HPI Gastrointestinal: see HPI Genitourinary: no symptoms reported Musculoskeletal: see HPI Skin: no symptoms reported Psychiatric/Neurological: See HPI Hematologic/Lymphatic: See HPI Immunological/Allergic: see HPI Past Fvmefao-Inxggb-Ywhvca Hx Patient Social History Alcohol Use: Past History (MODERATE USE IN PAST, NOW RARELY DRINKS) Number of Drinks Today: BB Alcohol Beverage of Choice: [place] Recreational Drug Use: Yes (HX OF IV OPIATE USE, QUIT 1983) Drug of Choice: + IV OPIATE USE--QUIT 1983 Smoking Status: Former Smoker (1 PPD, QUIT 1972) Type Used: Cigarettes Former Smoker, Quit: Jan 08, 1973 2nd Hand Smoke Exposure: No Recent Foreign Travel: No Contact w/Someone Who Travel: No Recent Infectious Disease Expo: No Recent Hopitalizations: Yes Immunizations Up To Date Date of Pneumonia Vaccine: Jan 09, 2015 Seasonal Allergies Seasonal Allergies: No Past Medical History Surgeries: Yes (SEE CHART FROM 08/25/17) Abdominal, Cardiac, Coronary Stent, Orthopedic Respiratory: Yes (MULTIPLE EPISODES OF PNEUMONIA; RIGHT PNEUMOTHORAX FROM TRAUMA 1992) Pneumonia Currently Using CPAP: No Currently Using BIPAP: No Cardiac: Yes (ME X 3--CARDIAC CATHS-STENT X 1) Coronary Artery Disease, Heart Attack, High Cholesterol, Hypotension Neurological: Yes (MULTIPLE MYELOMA) Sexually Transmitted Disease: No HIV/AIDS: No Genitourinary: No Gastrointestinal: Yes Abdominal Hernia, Gastroesophageal Reflux, Hepatitis Musculoskeletal: Yes Fractures Endocrine: Yes Diabetes, Insulin dep HEENT: Yes (WISDOM TEETH REMOVAL; WEARS GLASSES) Cataract Loss of Vision: Denies Hearing Impairment: Denies Cancer: Yes (MULTIPLE MYELOMA--DIAGNOSED AROUND 2003, 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) Did You Recieve Any Treatments: Yes What Type of Treatment Did You: Chemotherapy last chemo 10/02/17 Psychosocial: No Integumentary: No Blood Disorders: Yes (PANCYTOPENIA ON CHEMO) Adverse Reaction/Blood Tranf: No Family Medical History Cancer Physical Exam Vital Signs Vital Signs - First Documented 10/04/17 01:15 Temp 97.0 Pulse 94 Resp 15 B/P (MAP) 192/108 (136) Pulse Ox 100 O2 Delivery Room Air Capillary Refill : Less Than 3 Seconds Height, Weight, BMI Height: 5', 5.00" Weight: 163lbs 2.0oz, [id number] Method:Stated ,27.1BMI General Appearance: Other (LETHARGIC, STUTTERING, SOMEWHAT INCOMPREHENSIBLE SPEECH PT IS ARRIVING IN ER, THEN FAIRLY QUICKLY IS ABLE TO TALK NORMALLY AND IS ALERT AND ORIENTED X 4. NO INCONTINENCE. 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 Norm as Tested, Other (SEE ABOVE) Skin: Normal Color (PT IS BLACK), Warm/Dry Focused Exam Lactate Level Lactic Acid Level Progress/Results/Core Measures Suspected Sepsis Recent Fever Within 48 Hours: No Infection Criteria Present: None New/Unexplained Altered Menta: Yes Sepsis Screen: No Definite Risk SIRS Temperature:97.2 Pulse: 79 Respiratory Rate: 16 Blood Pressure 106 /55 Mean: 72 Results/Orders Lab Results My Orders Medications Given in ED Vital Signs/I&O Capillary Refill : Less Than 3 Seconds Blood Pressure Mean: 72 Point of Care Testing Finger Stick Blood Glucose: 175 Blood Glucose Action Taken: RN/MD Notified Progress Note : Progress Note PT GIVEN IV FLUIDS, AND LOADING DOSE OF DILANTIN BP REMAINED LOW--IN THE 90'S SYSTOLIC, BUT PT HAD NO COMPLAINTS DURING ER STAY ECG Initial ECG Impression Date: Oct 04, 2017 Initial ECG Impression Time: 01:25 Initial ECG Rate: 83 Initial ECG Rhythm: Normal Sinus Diagnostic Imaging Comments CXR--NO ACUTE PROCESS, PENDING RADIOLOGIST REVIEW CT HEAD--NO ACUTE INTRACRANIAL ABNORMALITY, HAD CHRONIC BONY SKULL CHANGES FROM MULTIPLE MYELOMA-UNCHANGED FROM PREVIOUS. PER [facility] VIA FAX @ [phone] Reviewed: Reviewed by Me Departure Communication (Admissions) [id number]--SPOKE WITH DR. REYES, HOSPITALIST BOOM PUMP OPERATOR. ACCEPTS PT FOR ADMIT. Impression Primary Impression: NEW ONSET SEIZURES Additional Impressions: MULTIPLE MYELOMA ON CHEMO Hypotension Dehydration Electrolyte imbalance Renal insufficiency IDDM (insulin dependent diabetes mellitus) Disposition: ADMITTED INPATIENT Condition: Improved Admissions Decision to Admit Reason: Admit from ER (General) Decision to Admit/Date: Oct 04, 2017 Time/Decision to Admit Time: 03:40 Departure-Patient Inst. Referrals: YOMI RAMESH MD (PCP) Primary Care Physician Scripts Diphenoxylate HCl/Atropine (Lomotil 2.5-0.025 mg Tablet) 1 Each Tablet 1 EACH PO Q4H PRN for diarrhea for 30 Days, #14 TAB Prov: MAURI REYES MD 10/04/17 MELVIN BLANCO DO Oct 04, 2017 07:05
--- NOTE | 2017-10-04 07:10 | Diagnostic Imaging Report ---
EXAMINATION: CT of the head without contrast INDICATION: Seizure, multiple myeloma Contiguous axial sections were taken through the skull. There is no mass, shift of the midline or hemorrhage to suggest an acute abnormality. The ventricles are not abnormally dilated and stable in size when compared to the prior exam of 09/29/2017. The senescent changes seen on the prior exam including cortical atrophy and periventricular encephalomalacia are again evident and no different. Also, as noted on the prior exam the bone windows show that the calvarium has a mottled appearance. This is most likely related to patient's diagnosis of multiple myeloma. There is no fracture or acute bony abnormality identified. The globes and optic nerves appear symmetrical. However, each optic nerve does have somewhat of a tortuous appearance. The reason for this is not certain. The sinuses are clear. IMPRESSION: 1. There is no evidence for an acute intracranial abnormality. 2. If clinical concern regarding an underlying abnormality persists, then MRI would be recommended for further study. Dictated by: Dictated on workstation # [id number]
[2017-10-04] MEDS ORDERED: PHENYTOIN 250 MG/5 ML INJ (DILANTIN) VIAL IV ONE (08:00)
[2017-10-04] MEDS ORDERED: PHENYTOIN IV NR ×3 (08:00)
[2017-10-04] MEDS ORDERED: MICRON FILTER IV NR ×3 (08:00)
[2017-10-04] MEDS ORDERED: NS IV NR ×3 (08:00)
[2017-10-04 08:20] LABS: BASOPHILS % (AUTO) 0 % (0-10); EOSINOPHILS % (AUTO) 0 % (0-10); HEMATOCRIT 31 % (40-54); HEMOGLOBIN 11.3 G/DL (13.3-17.7); LYMPHOCYTES # (AUTO) 0.3 X 10^3 (1.0-4.0); LYMPHOCYTES % (AUTO) 6 % (12-44); MEAN CORPUSCULAR HEMOGLOBIN 32 PG (25-34); MEAN CORPUSCULAR HGB CONC 37 G/DL (32-36); MEAN CORPUSCULAR VOLUME 88 FL (80-99); MONOCYTES # (AUTO) 0.8 X 10^3 (0.0-1.0); MONOCYTES % (AUTO) 16 % (0-12); NEUTROPHILS # (AUTO) 3.8 X 10^3 (1.8-7.8); NEUTROPHILS % (AUTO) 78 % (42-75); PLATELET COUNT 210 10^3/uL (130-400); WHITE BLOOD COUNT 4.8 10^3/uL (4.3-11.0)
[2017-10-04 08:39] LABS: ALANINE AMINOTRANSFERASE 30 U/L (0-55); ALKALINE PHOSPHATASE 58 U/L (40-136); BILIRUBIN,TOTAL 0.5 MG/DL (0.1-1.0); BUN/CREATININE RATIO 17; CARBON DIOXIDE 13 MMOL/L (21-32); CHLORIDE 109 MMOL/L (98-107); CREATININE SERUM 1.09 MG/DL (0.60-1.30); GFR ESTIMATED > 60; GLUCOSE 164 MG/DL (70-105); POTASSIUM 3.9 MMOL/L (3.6-5.0); SODIUM 130 MMOL/L (135-145)
--- NOTE | 2017-10-04 10:18 | Diagnostic Imaging Report ---
PROCEDURE: US carotid duplex, bilateral. TECHNIQUE: Multiple real-time grayscale images were obtained over the carotid arteries in various projections, bilaterally. Additional duplex Doppler and color Doppler images were also obtained. DATE: 10/04/2017. INDICATION: 67-year-old, syncope. COMPARISON: None. FINDINGS: Peak systolic velocity in left common carotid artery measures 100 cm/s. Peak systolic velocity in the left proximal internal carotid artery measures 76 cm/s, 63 cm/s in the mid left internal carotid artery, and 73 cm/s distally. Peak systolic velocity in the left external carotid artery measures 106 cm/s. There is patent antegrade flow in the left vertebral artery. Peak systolic velocity in the right common carotid artery measures 116 cm/s. Peak systolic velocity in the right proximal internal carotid artery measures 55 cm/s, 77 cm/s the mid right internal carotid artery, and 76 cm/s distally. Peak systolic velocity in the right external carotid artery measures 154 cm/s. There is patent antegrade flow in the right vertebral artery. IMPRESSION: 1. Negative for hemodynamically significant right or left internal carotid artery stenosis. 2. Patent antegrade flow in the bilateral vertebral arteries. Parameters based on the consensus panel Chiacs-Scale and Doppler ultrasound criteria published January 2003, Radiology, Volume 229. DOPPLER (peak systolic velocity M/S Right Left CCA 1.1 1.0 ICA Proximal .55 .76 ICA Mid .77 .63 ICA Distal .75 .73 RATIO .66 .76 ECA 1.5 1.1 VERT .48 .50 Dictated by: Dictated on workstation # [id number]
[2017-10-04] MEDS: NS W/KCL 20 MEQ/L 1,000 ML IV SCH ×2 (11:03→14:03)
--- NOTE | 2017-10-04 11:26 | Short Stay Summary-Hospitalist ---
History of Present Illness HPI/Chief Complaint Mr. Kim is a 67-year-old black male with advanced recently relapsed multiple myeloma who underwent chemotherapy Thursday morning. As has been the case with his previous chemotherapy treatments he develops diarrhea rather profusely about 12 hours later become significantly weak. He reports initially walking to the bathroom 1130 a.m. Thursday morning when he felt weak and then later found himself on the floor. He reports that he has been foot pushing fluids but continued to feel quite weak. His significant other returned after her dayshift and apparently witnessed to syncopal episodes the first one occurring around 1245 a.m. The patient was on the commode became weak and sweaty had one episode of upper and lower extremity mild clonus with loss of consciousness it lasted about a minute. The patient then came to feeling weak. They estimated 8 -12 watery nonbloody stools with another episode on the commode 15 minutes later. Patient has a history of orthostatic hypotension with syncope following previous chemotherapy sessions for which diarrhea is prominent for 24-48 hours post therapy. He had had no previous known seizure history and no other reported witnessed episodes of myoclonus. He was brought to the emergency room via private vehicle and required maximal assistance out of the car were reportedly his speech was slurred. Patient woke up supine with no reported neurologic deficits. CT head revealed no significant pathology other than lytic skull disease from his known myeloma. Prior to notify me of his admission he received a loading dose of Dilantin and was admitted to the intensive care unit. Overnight he has had no seizure activity and has received nearly 3 L of IV fluid. He was awake and alert with no subsequent diarrhea since admission. He denies chills fever cough or abdominal pain see further below review of systems. Date Seen 10/04/17 Time Seen by Provider: 08:45 Attending Physician Mauri Doty MD PCP Prosper Arenas MD Referring Physician Date of Admission Oct 04, 2017 at 03:40 Home Medications & Allergies Home Medications Reviewed patient Home Medication Reconciliation performed by pharmacy medication reconciliations remediation technician and/or nursing. Patients Allergies have been reviewed. Allergies Allergies Coded Allergies codeine (Unverified Allergy, Unknown, 08/25/17) levofloxacin (Unverified Allergy, Unknown, 08/25/17) niacin (Unverified Allergy, Unknown, 08/25/17) Uncoded Allergies DARVOCET ( Allergy, Unknown, 08/25/17) ERYTHROMYCIN ( Allergy, Unknown, 08/25/17) Past Hcxdouh-Udliog-Nnnrwf Hx Past Med/Social Hx: Reviewed and Corrections made Patient Social History Alcohol Use: Past History Number of Drinks Today: BB Alcohol Beverage of Choice: [place] Recreational Drug Use: No Drug of Choice: OPIATES Smoking Status: Former Smoker Former Smoker, Quit: Jan 08, 1973 Type Used: Cigarettes 2nd Hand Smoke Exposure: No Physical Abuse Screen: No Sexual Abuse: No Recent Foreign Travel: No Contact w/other who traveled: No Recent Hopitalizations: Yes Recent Infectious Disease Expo: No Immunizations Up To Date Date of Pneumonia Vaccine: Jan 09, 2015 Seasonal Allergies Seasonal Allergies: No Past Medical History Surgeries: Abdominal, Cardiac, Coronary Stent, Orthopedic Currently Using CPAP: No Currently Using BIPAP: No Cardiac: Coronary Artery Disease, Heart Attack, High Cholesterol, Hypotension Sexually Transmitted Disease: No HIV/AIDS: No Gastrointestinal: Abdominal Hernia, Gastroesophageal Reflux, Hepatitis Musculoskeletal: Fractures Endocrine: Diabetes, Insulin dep HEENT: Cataract Loss of Vision: Denies Hearing Impairment: Denies Did You Recieve Any Treatments: Yes What Type of Treatment Did You: Chemotherapy Cancer: last chemo 10/02/17 History of Blood Disorders: Yes (PANCYTOPENIA ON CHEMO) Adverse Reaction to Blood Negron: No Family History Cancer Review of Systems Constitutional: No chills; diaphoresis, dizziness; No fever, No malaise; weakness; No weight gain, No weight loss, No other Respiratory: no symptoms reported, see HPI; No cough, No dyspnea on exertion, No hemoptysis, No orthopnea, No phlegm, No short of breath, No stridor, No wheezing Gastrointestinal: diarrhea, other (Mild nausea is resolved denies abdominal pain) Genitourinary: other (Patient reports concentrated urine despite drinking a lot of fluid with decreased urination over the past 24 hours compared to baseline) Physical Exam Physical Exam Vital Signs Vital Signs - First Documented 10/04/17 01:15 Temp 97.0 Pulse 94 Resp 15 B/P (MAP) 192/108 (136) Pulse Ox 100 O2 Delivery Room Air Capillary Refill : Less Than 3 Seconds Height, Weight, BMI Height: 5', 5.00" Weight: 163lbs 2.0oz, [id number] Method:Stated ,27.1BMI General Appearance: No Apparent Distress, WD/WN Respiratory: Chest Non Tender, Lungs Clear, Normal Breath Sounds, No Accessory Muscle Use, No Respiratory Distress Cardiovascular: Regular Rate, Rhythm, No Edema, No Gallop, No JVD, No Murmur, Normal Peripheral Pulses Gastrointestinal: Normal Bowel Sounds, No Organomegaly, No Pulsatile Mass, Non Tender, Soft Extremity: Normal Capillary Refill, Normal Inspection, Normal Range of Motion, Non Tender, No Calf Tenderness, No Pedal Edema Neurologic/Psychiatric: Alert, Oriented x3, No Motor/Sensory Deficits, Normal Mood/Affect Skin: Normal Color, Warm/Dry Results Results/Procedures Labs Laboratory Tests 10/04/17 01:25 10/04/17 08:09 Patient resulted labs reviewed. Short Stay Diagnosis Discharge Diagnosis-Short Stay Admission Diagnosis 1. Syncope secondary to orthostatic hypotension from dehydration 2. Convulsion due to syncope favored over a tree generalized seizure disorder. 3. Advanced multiple myeloma with diffuse bony metastasis. 4. Diarrhea secondary to chemotherapy Final Discharge Diagnosis As per admission diagnosis Conclusion Plan Patient was admitted to intensive care unit receiving over 4 L of IV fluid with no further evidence of syncope or altered mental status or convulsions. We'll plan to ambulate after breakfast and as long as the patient does well will discharge. Consideration for outpatient EEG although as noted in his discharge diagnosis doubt generalized seizure disorder but more likely hypotension related convulsion in individual who has no past history of seizure disorder and no evidence for brain abnormality on CT scanning. Patient will be following up with his oncologist next week. Clinical Quality Measures DVT/VTE Risk/Contraindication: Risk Factor Score Per Nursin RFS Level Per Nursing on Admit: 4+=Very High MAURI DOTY MD Oct 04, 2017 11:26
[2017-10-04] MEDS ORDERED: DIPH1TAB PO (11:38)
[2017-10-04] MEDS ORDERED: PANTOPRAZOLE 20 MG TABLET (PROTONIX) PO NR (13:15)
[2017-10-04] MEDS ORDERED: PANTOPRAZOLE 20 MG TABLET (PROTONIX) PO ONE (13:20)
[2017-10-07] MEDS ORDERED: HYDR-3816 PO (08:48)
== END 2017-10-04 15:05 | disposition home or self-care (01) | DRG 641 ==
LOC: EDUNIT# 01:15 → ER 01:16 → ICU 03:40
PROVIDERS: ADMIT Internal Medicine; ATTEND Internal Medicine
DX: E86.0 Dehydration (principal); I95.1 Orthostatic hypotension; R55 Syncope and collapse; K52.1 Toxic gastroenteritis and colitis; T45.1X5A Adverse effect of antineoplastic and immunosuppressive drugs, initial encounter; C90.00 Multiple myeloma not having achieved remission; C79.51 Secondary malignant neoplasm of bone; R56.9 Unspecified convulsions; E87.6 Hypokalemia; I25.10 Atherosclerotic heart disease of native coronary artery without angina pectoris; E78.00 Pure hypercholesterolemia, unspecified; E11.9 Type 2 diabetes mellitus without complications; I10 Essential (primary) hypertension; K21.9 Gastro-esophageal reflux disease without esophagitis; I25.2 Old myocardial infarction; Z79.82 Long term (current) use of aspirin; Z79.4 Long term (current) use of insulin; Z87.891 Personal history of nicotine dependence; Z95.5 Presence of coronary angioplasty implant and graft
CPT/HCPCS: 36415; 70450; 71045; 80053; 80306; 80320; 80329; 81000; 82533; 82550; 82553; 82962; 83605; 83735; 83874; 84439; 84443; 84484; 85025; 85610; 85730; 87040; 93005; 93041; 93306; 93880; 96361; 96365

== ENCOUNTER 2017-10-06 11:25 | Observation (INO) | payer MEDICARE ==
[~2017-10-06] VITALS: Ht 165.1 cm; Wt 68.1 kg
[~2017-10-06 11:25] MED LIST changes: +DIPH1TAB PO
--- OUTSIDE RECORDS SUMMARY | 2017-10-06 11:35 | XMS REPORT | Clinical Summary ---
Author Author Admin, Kaylynn Organization [facility] Address Unknown Phone Unavailable Allergies, Adverse Reactions, Alerts Allergy Name Reaction Description Start Date Severity Status Provider ERYTHROMYCIN Stomach cramps Moderate Active Prosper Arenas MD CODEINE Critical Active Maliheh Ziglari COMPLIANCE MGR DARVOCET Critical Active Maliheh Ziglari COMPLIANCE MGR LEVAQUIN Critical Active Maliheh Ziglari COMPLIANCE MGR Conditions or Problems Problem Name Problem Code Onset Date Status Entry Date Provider Comment Standard Description Annotate Diabetes, Type 2 250.00 Resolved Tami Miller surveillance supervisor mellitus without mention of complication, type [...] type II, uncontrolled 250.02 Active Maliheh Rodrigoglari COMPLIANCE MGR Diabetes mellitus without mention of complication, [...] with hyperglycemia 250.00 Active 03/21 Maliheh Ziglari COMPLIANCE MGR Diabetes mellitus without mention of complication, type II or unspecified type, not stated as uncontrolled [facility] use of insulin treatment V58.67 Active Luxiheh Rodrigoglari COMPLIANCE MGR Long-term (current) use of insulin Diabetes mellitus, type II with hypoglycemia 250.80 Active 07/22 Maliheh Ziglari COMPLIANCE MGR Diabetes mellitus with other specified manifestations, type II or unspecified type, not stated as uncontrolled 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 Maliheh Ziglari COMPLIANCE MGR Diabetes mellitus with renal manifestations, type II or unspecified type, not stated as uncontrolled Wellness exam V70.0 Active Dee Palmer APRN Routine general medical examination at a health care facility Fitting and adjustment of vascular catheter V58.81 Active 02/06 Dee Palmer APRN Encounter for fitting and adjustment of vascular catheter Unawareness of hypoglycemia in diabetes mellitus, type II 250.80 Active Maliheh Rodrigoglari COMPLIANCE MGR Diabetes mellitus with other specified manifestations, [...] Headache Inguinal pain, right 789.09 Resolved Mekhi Dukse MD [...] specified as recurrent) Gastritis Inactive Maliheh Rodrigoglrex COMPLIANCE MGR Unspecified gastritis and gastroduodenitis, without mention [...] TABLET 1 daily for depression CITALOPRAM HYDROBROMIDE 46935767096 Active Prosper Arenas MD Active PREDNISONE 20 MG ORAL TABLET 2 tabs daily for 4 days, 1 tab daily for 4 days, 1/2 tab daily for 4 days PREDNISONE 07415839049 No Longer Active Prosper Arenas MD Active AZITHROMYCIN 250 MG ORAL TABLET 2 po qd x 1 day, then 1 po qd x 4 days 05/07 AZITHROMYCIN 61727831703 No Longer Active Dee Palmer APRN Active GUAIFENESIN DM 400-20 MG ORAL TABLET 1 pill by mouth twice daily, if needed for cough DEXTROMETHORPHAN-GUAIFENESIN 30252522137 Active Dee Palmer APRN Active ASPIRIN 81 MG ORAL TABLET 1 po qd ASPIRIN 24923576224 Active Dee Palmer APRN Active CALCIUM 500/D 500-200 MG-UNIT ORAL TABLET one tablet daily CALCIUM CARBONATE-VITAMIN D 45846210237 No Longer Active Dee Palmer APRN Active HYDROCODONE-ACETAMINOPHEN 7.5-325 MG ORAL TABLET 1-2 every 4-6 hrs prn 02/25 HYDROCODONE-ACETAMINOPHEN 39596366792 Active Marina King BESSY Active ASPIRIN 81 MG ORAL TABLET 1 tablet by mouth daily ASPIRIN 62094586105 No Longer Active Marina King BESSY Active SIMVASTATIN 80 MG ORAL TABLET 1/2 tablet daily SIMVASTATIN 04812668476 No Longer Active Mekhi Dukes MD Active OMEPRAZOLE 20 MG ORAL CAPSULE DELAYED RELEASE 1 qd OMEPRAZOLE 74469226172 No Longer Active Mekhi Dukes MD Active METOPROLOL TARTRATE 25 MG ORAL TABLET 1/2 tablet twice a day METOPROLOL TARTRATE 54394707422 No Longer Active Mekhi Dukes MD Active LISINOPRIL 5 MG ORAL TABLET 1 daily LISINOPRIL 46366591748 No Longer Active Mekhi Dukes MD Active NOVOLOG FLEXPEN 100 UNIT/ML SUBCUTANEOUS SOLUTION PEN-INJECTOR Take 8 units with each meal, add 1u/50 for blood sugars above 150. INSULIN ASPART 81314787823 Active Moy PARISH Active GABAPENTIN 300 MG ORAL CAPSULE 1 tab BID GABAPENTIN 32861296712 Active Tami Miller RN Active PREDNISONE 20 MG ORAL TABLET Take 2 daily for 3 days and then 1 daily for 3 days PREDNISONE 23517065047 No Longer Active Malpapo Wallaceglrex DURANTP Active BENZONATATE 200 MG ORAL CAPSULE Take 1 tablet 3 times a day as needed for cough BENZONATATE 94819352322 No Longer Active Prosper Arenas MD Active HYDROCHLOROTHIAZIDE 25 MG ORAL TABLET 1 tablet by mouth daily HYDROCHLOROTHIAZIDE 10129952352 No Longer Active Prosper Arenas MD Active ACCU-CHEK JOANNA PLUS IN VITRO STRIP check blood sugars 5x a day, before each meal and bedtime and 15 minutes after treating a low blood. sugar GLUCOSE BLOOD 05052493733 Active Maliheh Ziglari COMPLIANCE MGR Active LANTUS SOLOSTAR 100 UNIT/ML SUBCUTANEOUS SOLUTION PEN-INJECTOR Take 40 units at 7-8pm daily INSULIN GLARGINE 15451080923 Active Maliheh Ziglari COMPLIANCE MGR Active MECLIZINE HCL 25 MG ORAL TABLET 1 daily needed for dizziness 2015 MECLIZINE HCL 50789280936 No Longer Active Maliheh Ziglari COMPLIANCE MGR Active BENZONATATE 200 MG ORAL CAPSULE 1 tab, 2-3 times a day BENZONATATE 94127306563 No Longer Active Maliheh Ziglari COMPLIANCE MGR Active HALOPERIDOL 0.5 MG ORAL TABLET one tablet three times a day HALOPERIDOL 06744568017 No Longer Active Maliheh Ziglari COMPLIANCE MGR Active TRAZODONE HCL 50 MG ORAL TABLET three tablets at bed time TRAZODONE HCL 28495341561 No Longer Active Maliheh Ziglari COMPLIANCE MGR Active REVLIMID 25 MG ORAL CAPSULE one capsule daily for 21 days then off for 7 days LENALIDOMIDE 56612113637 No Longer Active Maliheh Ziglari COMPLIANCE MGR Active ZITHROMAX Z-EDDIE 250 MG ORAL TABLET 2 today, then 1 daily for 4 days AZITHROMYCIN 40040076676 No Longer Active Augustina Mata APRN Active NOVOLIN R RELION 100 UNIT/ML INJECTION SOLUTION 30- 40 units each meal sliding scale INSULIN REGULAR HUMAN 88992746954 No Longer Active Maliheh Ziglari COMPLIANCE MGR Active HYDROCODONE-ACETAMINOPHEN 5-500 MG ORAL TABLET 1-2 FOUR TIMES A DAY, PRN 2010 HYDROCODONE-ACETAMINOPHEN 58073168666 No Longer Active Prosper Arenas MD Active DOXYCYCLINE HYCLATE 100 MG ORAL CAPSULE take one capsule by mouth twice daily for ten days DOXYCYCLINE HYCLATE 85104623638 No Longer Active Mekhi Dukes MD Active DOXYCYCLINE HYCLATE 100 MG ORAL CAPSULE take one capsule by mouth twice daily for ten days DOXYCYCLINE HYCLATE 100 MG ORAL CAPSULE 6638247 DOXYCYCLINE HYCLATE Inactive HYDROCODONE-ACETAMINOPHEN 5-500 MG ORAL [...] days ZITHROMAX Z-EDDIE 250 MG ORAL TABLET 962848 AZITHROMYCIN Inactive REVLIMID 25 MG ORAL CAPSULE one capsule daily for 21 days then off for 7 days REVLIMID 25 MG ORAL CAPSULE LENALIDOMIDE Inactive TRAZODONE HCL 50 MG ORAL TABLET three tablets at bed time TRAZODONE HCL 50 MG ORAL TABLET 617656 TRAZODONE HCL Inactive HALOPERIDOL 0.5 MG ORAL TABLET one tablet three times a day HALOPERIDOL 0.5 MG ORAL TABLET 112868 HALOPERIDOL Inactive BENZONATATE 200 MG ORAL CAPSULE 1 tab, 2-3 times a day BENZONATATE 200 MG ORAL CAPSULE 984489 BENZONATATE Inactive MECLIZINE HCL 25 MG ORAL TABLET 1 daily needed for dizziness 2015 MECLIZINE HCL 25 MG ORAL TABLET 310639 MECLIZINE HCL Inactive HYDROCHLOROTHIAZIDE 25 MG ORAL TABLET 1 tablet by mouth daily HYDROCHLOROTHIAZIDE 25 MG ORAL TABLET 066251 HYDROCHLOROTHIAZIDE Inactive PREDNISONE 20 MG ORAL TABLET Take 2 daily for 3 days and then 1 daily for 3 days PREDNISONE 20 MG ORAL TABLET 161977 PREDNISONE Inactive LISINOPRIL 5 MG ORAL TABLET 1 daily LISINOPRIL 5 MG ORAL TABLET 089490 LISINOPRIL Inactive METOPROLOL TARTRATE 25 MG ORAL TABLET 1/2 tablet twice a day METOPROLOL TARTRATE 25 MG ORAL TABLET 753545 METOPROLOL TARTRATE Inactive OMEPRAZOLE 20 MG ORAL CAPSULE DELAYED RELEASE 1 qd OMEPRAZOLE 20 MG ORAL CAPSULE DELAYED RELEASE 487466 OMEPRAZOLE Inactive SIMVASTATIN 80 MG ORAL TABLET 1/2 tablet daily SIMVASTATIN 80 MG ORAL TABLET 592790 SIMVASTATIN Inactive ASPIRIN 81 MG ORAL TABLET [...] 4 days PREDNISONE 20 MG ORAL TABLET 338391 PREDNISONE Inactive BENZONATATE 200 MG ORAL CAPSULE Take 1 tablet 3 times a day as needed for cough BENZONATATE 200 MG ORAL CAPSULE 555513 BENZONATATE Inactive AZITHROMYCIN 250 MG ORAL TABLET 2 po qd x 1 day, then 1 po qd x 4 days 05/07 AZITHROMYCIN 250 MG ORAL TABLET 798244 AZITHROMYCIN Inactive Immunizations Vaccine Administration Date Value [...] % 11.6-14.8 platelet count 294 10^3/MM^3 10*3/mm3 206-175 1364/05/29 leukocyte count, blood 2.4 10^3/MM^3 10*3/mm3 4.6-10.2 [...] % 11.6-14.8 platelet count 138 10^3/MM^3 10*3/mm3 740-271 8401/06/12 leukocyte count, blood 4.3 10^3/MM^3 10*3/mm3 4.6-10.2 [...] % 11.6-14.8 platelet count 355 10^3/MM^3 10*3/mm3 626-217 2289/06/19 leukocyte count, blood 2.2 10^3/MM^3 10*3/mm3 4.6-10.2 [...] Panel - Chemistry sodium, serum 137 mmol/L 354-727 8679/06/05 carbon dioxide, venous blood 26.0 mmol/L 21.0-32.0 potassium, serum 4.5 mmol/L 3.5-5.2 chloride, serum 100 mmol/L 98-107 blood glucose 100 mg/dL 65- urea nitrogen, blood 16 mg/dL 7-18 creatinine, serum 1.67 mg/dL 0.60-1.30 alanine aminotransferase (SGPT), serum 75 U/L - aspartate aminotransferase (SGOT), serum 46 U/L 15-37 calcium, serum 9.8 mg/dL 8.5-10.1 bilirubin, serum, total 0.40 mg/dL 0.00-1.00 sodium, serum 134 mmol/L 088-694 7068/05/15 carbon dioxide, venous blood 23.5 mmol/L 21.0-32.0 potassium, serum 4.8 mmol/L 3.5-5.2 chloride, serum 101 mmol/L 98-107 blood glucose 139 mg/dL 65- urea nitrogen, blood 19 mg/dL 7- creatinine, serum 1.79 mg/dL 0.60-1.30 alanine aminotransferase (SGPT), serum 140 U/L - aspartate aminotransferase (SGOT), serum 104 U/L 15- calcium, serum 8.5 mg/dL 8.5-10.1 bilirubin, serum, total 0.40 mg/dL 0.00-1.00 sodium, serum 135 mmol/L 830-969 3207/05/08 carbon dioxide, venous blood 29.0 mmol/L 21.0-32.0 potassium, serum 4.8 mmol/L 3.5-5.2 chloride, serum 101 mmol/L 98-107 blood glucose 165 mg/dL 65- urea nitrogen, blood 19 mg/dL 7-18 creatinine, serum 1.51 mg/dL 0.60-1.30 alanine aminotransferase (SGPT), serum 65 U/L aspartate aminotransferase (SGOT), serum 38 U/L - calcium, serum 8.2 mg/dL 8.5-10.1 bilirubin, serum, total 0.50 mg/dL 0.00-1.00 sodium, serum 135 mmol/L 732-498 1607/04/10 carbon dioxide, venous blood 26.1 mmol/L 21.0-32.0 potassium, serum 4.2 mmol/L 3.5-5.2 chloride, serum 100 mmol/L 98-107 blood glucose 293 mg/dL 65-110 urea nitrogen, blood 18 mg/dL 7-18 creatinine, serum 2.06 mg/dL 0.60-1.30 alanine aminotransferase (SGPT), serum 59 U/L aspartate aminotransferase (SGOT), serum 47 U/L calcium, serum 8.6 mg/dL 8.5-10.1 bilirubin, serum, total 0.30 mg/dL 0.00-1.00 sodium, serum 139 mmol/L 217-766 3085/05/01 carbon dioxide, venous blood 25.2 mmol/L 21.0-32.0 [...] % 11.6-14.8 platelet count 103 10^3/MM^3 10*3/mm3 706-954 3871/05/01 leukocyte count, blood 5.0 10^3/MM^3 10*3/mm3 4.6-10.2 [...] % 11.6-14.8 platelet count 271 10^3/MM^3 10*3/mm3 356-622 9612/04/10 leukocyte count, blood 4.8 10^3/MM^3 10*3/mm3 4.6-10.2 [...] % 11.6-14.8 platelet count 200 10^3/MM^3 10*3/mm3 969-656 1892/05/15 leukocyte count, blood 1.7 10^3/MM^3 10*3/mm3 4.6-10.2 [...] % 11.6-14.8 platelet count 36 10^3/MM^3 10*3/mm3 641-555 5479/06/05 leukocyte count, blood 2.7 10^3/MM^3 10*3/mm3 4.6-10.2 [...] Panel - Chemistry sodium, serum 136 mmol/L 214-159 5476/05/29 carbon dioxide, venous blood 22.4 mmol/L 21.0-32.0 potassium, serum 4.0 mmol/L 3.5-5.2 chloride, serum 104 mmol/L 98-107 blood glucose 128 mg/dL - urea nitrogen, blood 20 mg/dL 7- creatinine, serum 1.47 mg/dL 0.60-1.30 alanine aminotransferase (SGPT), serum 80 U/L aspartate aminotransferase (SGOT), serum 38 U/L 15- calcium, serum 9.1 mg/dL 8.5-10.1 bilirubin, serum, total 0.40 mg/dL 0.00-1.00 sodium, serum 134 mmol/L 940-852 8207/05/22 carbon dioxide, venous blood 25.2 mmol/L 21.0-32.0 potassium, serum 5.0 mmol/L 3.5-5.2 chloride, serum 100 mmol/L 98-107 blood glucose 278 mg/dL urea nitrogen, blood 19 mg/dL - creatinine, serum 1.49 mg/dL 0.60-1.30 alanine aminotransferase (SGPT), serum 93 U/L aspartate aminotransferase (SGOT), serum 58 U/L calcium, serum 9.1 mg/dL 8.5-10.1 bilirubin, serum, total 0.20 mg/dL 0.00-1.00 sodium, serum 132 mmol/L 802-316 1776/06/19 carbon dioxide, venous blood 20.9 mmol/L 21.0-32.0 potassium, serum 3.9 mmol/L 3.5-5.2 chloride, serum 102 mmol/L 98-107 blood glucose 259 mg/dL - urea nitrogen, blood 16 mg/dL - creatinine, serum 1.46 mg/dL 0.60-1.30 alanine aminotransferase (SGPT), serum 62 U/L aspartate aminotransferase (SGOT), serum 27 U/L 15-37 calcium, serum 7.5 mg/dL 8.5-10.1 bilirubin, serum, total 0.50 mg/dL 0.00-1.00 sodium, serum 134 mmol/L 056-183 5490/06/12 carbon dioxide, venous blood 21.9 mmol/L 21.0-32.0 [...] W/DIFF - Chemistry sodium, serum 137 mmol/L 861-338 4636/08/16 carbon dioxide, venous blood 26.3 mmol/L 21.0-32.0 [...] 4.3-6.0 Lab Report: [facility] - Chemistry cholesterol, serum 115 mg/dL 449-093 2144/08/18 triglyceride, serum, fasting 89 mg/dL 30-200 HDL [...] mg/dL Encounters Code Encounter Date Provider Facility CPT-29592 [id number] Vst-Est Level IV 11:03:20 CDT Prosper Arenas MD [facility] CPT-16511 Level 3 Est. Patient 14:09:25 LANDSCAPE PHOTOGRAPHER Dee Palmer APRN [facility] CPT-55529 Level 3 Est. Patient 10:53:32 LANDSCAPE PHOTOGRAPHER Moy Garcia [facility] CPT-37190 Level 3 Est. Patient 17:11:55 LANDSCAPE PHOTOGRAPHER Ismael Gracia MD [facility] CPT-33106 Level 4 Est. Patient 16:29:19 CDT Mekhi Dukes MD [facility] CPT-82636 Level 3 New Patient 17:05:24 CDT Ismael Gracia MD [facility] CPT-30331 Level 2 Est. Patient 15:43:17 CDT Mekhi Dukes MD [facility] CPT-66664 Level 3 Est. Patient 09:30:37 CDT Moy Garcia [facility] CPT-03476 Level 3 Est. Patient 10:00:14 CDT Mekhi Dukes MD [facility] CPT-57020 Level 3 Est. Patient 12:24:09 CDT Moy Garcia [facility] CPT-78019 Level 3 Est. Patient 14:34:57 CDT Prosper Arenas MD [facility] CPT-81303 Level 3 New Patient 15:44:53 LANDSCAPE PHOTOGRAPHER Mekhi Dukes MD [facility] CPT-55710 Level 3 Est. Patient 14:53:34 LANDSCAPE PHOTOGRAPHER Prosper Arenas MD [facility] CPT-30641 Level 4 Est. Patient 10:05:41 LANDSCAPE PHOTOGRAPHER Moy Garcia [facility] CPT-95439 Level 3 Est. Patient 11:18:32 CDT Moy Garcia [facility] CPT-85183 Level 4 Est. Patient 11:05:10 CDT Moy Garcia [facility] CPT-29889 Level 3 Est. Patient 11:08:27 LANDSCAPE PHOTOGRAPHER Moy Garcia [facility] CPT-53972 Level 4 Est. Patient 10:43:59 CDT Prosper Arenas MD [facility]-63721 Level 3 Est. Patient 10:51:19 CDT Moy Garcia [facility] CPT-06958 Level 3 Est. Patient 10:20:31 CDT Moy Garcia [facility] CPT-45630 Level 3 Est. Patient 17:08:45 [facility] Level 2 Est. Patient 13:54:36 CDT Augustina Mata APRN [facility]-52337 Level 3 Est. Patient 12:00:42 CDT Prosper Arenas MD [facility]-83968 Level 3 Est. Patient 09:57:28 LANDSCAPE PHOTOGRAPHER Moy Garcia [facility] CPT-86373 Level 3 Est. Patient 11:41:19 LANDSCAPE PHOTOGRAPHER Moy Garcia [facility] CPT-97460 Level 4 Est. Patient 17:07:35 LANDSCAPE PHOTOGRAPHER Moy Garcia [facility] CPT-62977 Level 5 Est. Patient 14:33:32 [facility]84092 Level 3 Est. Patient 12:25:35 CDT Prosper Arenas MD [facility] Procedures Code Procedure Name Date Entry Date Standard Description CPT-91416 Chest, 2 views 14:17:20 LANDSCAPE PHOTOGRAPHER CPT-52426 Postop F/U Visit 14:44:45 LANDSCAPE PHOTOGRAPHER CPT-23418 Postop F/U Visit 17:20:20 LANDSCAPE PHOTOGRAPHER CPT-G0439 Subsequent Annual Wellness Exam 08:39:41 LANDSCAPE PHOTOGRAPHER CPT-000 Give Appropriate Flu Vaccine 10:13:55 LANDSCAPE PHOTOGRAPHER CPT-000 Give Immunizations Due 10:13:55 LANDSCAPE PHOTOGRAPHER CPT-53045 HGBA1C - LAB USE ONLY 09:42:47 LANDSCAPE PHOTOGRAPHER CPT-71999 TPSA - LAB USE ONLY 09:42:46 LANDSCAPE PHOTOGRAPHER CPT-10847 Venipuncture Draw Fee 09:42:46 LANDSCAPE PHOTOGRAPHER CPT-28965 Port a cath flush 13:33:18 LANDSCAPE PHOTOGRAPHER CPT-48667 First Vx - Ix admin for Medicare patients 10:42:57 LANDSCAPE PHOTOGRAPHER CPT-17180 Fluzone Preservative Free Intramuscular Suspension 10:42 :57 LANDSCAPE PHOTOGRAPHER CPT-G0438 Initial Annual Wellness Exam 10:13:55 LANDSCAPE PHOTOGRAPHER CPT-000 Give Appropriate Flu Vaccine 10:44:04 CDT CPT-000 Give Pneumovax 10:44:03 CDT CPT-61928 Port a cath flush 17:04:43 CDT CPT-45843 Prevnar 13 11:19:17 CDT CPT-73427 Fluzone Quadrivalent preservative free (>=3yrs.) 11:19: 17 CDT CPT-67829 Immunization Each Additional Inj 11:19:17 CDT CPT-82745 Immunization Single Admin 11:19:17 CDT CPT-39199 Port a cath flush 13:28:22 CDT CPT-TCMM Transitional Care Mgmt-Moderate 13:40:15 CDT CPT-G0008 Administration of Influenza Virus Vaccine 13:59:20 CDT CPT-37335 Fluzone High-Dose Intramuscular Suspension 13:59:20 CDT CPT-19370 Venipuncture Draw Fee 09:56:19 CDT CPT-OV Office Visit 15:46:10 CDT
--- NOTE | 2017-10-06 11:41 | ED Syncope ---
General Chief Complaint: Neurological Problems Stated Complaint: SEIZURE Source of Information: Patient, Caregiver (dpoa) Exam Limitations: No Limitations History of Present Illness Date Seen by Provider: Oct 06, 2017 Time Seen by Provider: 11:30 Initial Comments Patient presents to ER by private conveyance with his significant other and a chief complaint that he was sitting on the toilet got up and passed out striking his head against the toilet or tub according to the significant partner. He was only out for a few seconds and then convulsed. This happened about a week ago and he was put in overnight. He was told by Dr. Doty that these convulsions were not seizures. He does not have a history of seizure activity or disorder. He does however have a significant history of multiple myeloma and received his latest chemotherapy on Thursday, 4 days ago. He has an extensive history of vasovagal syncopal And hypotension. He's having some pain in his left lower ribs and a nodule there he feels. He is not having any pain in his neck or head. No bleeding or discharge from the ears or nose. He says is a little short of breath but does not require supplemental oxygen at baseline. Allergies and Home Medications Allergies Coded Allergies: codeine (Unverified Allergy, Unknown, 08/25/17) levofloxacin (Unverified Allergy, Unknown, 08/25/17) niacin (Unverified Allergy, Unknown, 08/25/17) Uncoded Allergies: DARVOCET (Allergy, Unknown, 08/25/17) ERYTHROMYCIN (Allergy, Unknown, 08/25/17) Home Medications Acyclovir 400 Mg Tablet, 400 MG PO BID, (Reported) Calcium Carbonate/Vitamin D3 1 Each Tablet, 1 TAB PO BID, (Reported) Diphenoxylate HCl/Atropine 1 Each Tablet, 1 EACH PO Q4H PRN for diarrhea Prescribed by: MAURI DOTY on 10/04/17 1138 Gabapentin 300 Mg Capsule, 300 MG PO TID, (Reported) Hydrocodone/Acetaminophen 1 Each Tablet, 1 TAB PO TID PRN for PAIN-MODERATE, ( Reported) Insulin Aspart 300 Units/3 Ml Solution, 6-7 UNITS SQ AC, (Reported) Insulin Glargine,Hum.rec.anlog 100 Unit/1 Ml Vial, 35 UNIT SQ HS, (Reported) Lactobacillus Acidophilus 1 Each Capsule, 1 EACH PO AC Prescribed by: PHIL RAMEY on 09/22/17 1052 Megestrol Acetate 20 Mg Tablet, 40 MG PO DAILY, (Reported) Omeprazole 20 Mg Capsule.dr, 20 MG PO DAILY, (Reported) Ondansetron HCl 8 Mg Tablet, 8 MG PO Q8H PRN for NAUSEA/VOMITING-1ST LINE, ( Reported) Patient Home Medication List Home Medication List Reviewed: Yes Constitutional: chills, diaphoresis (yesterday); No fever, No malaise EENTM: No blurred vision, No double vision Respiratory: No cough; short of breath; No wheezing Cardiovascular: see HPI, chest pain (left anterior ribs); No palpitations Gastrointestinal: No abdominal pain, No constipation; diarrhea (weeks); No nausea Genitourinary: No decreased output, No discharge, No dysuria Musculoskeletal: No back pain, No joint pain Skin: No pruritus, No rash Past Szhalli-Lrqsgg-Zkouqd Hx Patient Social History Alcohol Use: Past History Alcohol Beverage of Choice: [place] Recreational Drug Use: No (past history) Drug of Choice: OPIATES Smoking Status: Former Smoker Type Used: Cigarettes Former Smoker, Quit: Jan 08, 1973 2nd Hand Smoke Exposure: No Recent Hopitalizations: Yes Immunizations Up To Date Date of Pneumonia Vaccine: Jan 09, 2015 Seasonal Allergies Seasonal Allergies: No Past Medical History Surgeries: Yes Abdominal, Cardiac, Coronary Stent, Orthopedic Respiratory: Yes (MULTIPLE EPISODES OF PNEUMONIA; RIGHT PNEUMOTHORAX FROM TRAUMA 1992) Pneumonia Currently Using CPAP: No Currently Using BIPAP: No Cardiac: Yes (MA X 3--CARDIAC CATHS-STENT X 1) Coronary Artery Disease, Heart Attack, High Cholesterol, Hypotension Neurological: Yes (MULTIPLE MYELOMA) Sexually Transmitted Disease: No HIV/AIDS: No Genitourinary: No Gastrointestinal: Yes Abdominal Hernia, Gastroesophageal Reflux, Hepatitis Musculoskeletal: Yes Fractures Endocrine: Yes Diabetes, Insulin dep HEENT: Yes (WISDOM TEETH REMOVAL; WEARS GLASSES) Cataract Loss of Vision: Denies Hearing Impairment: Denies Cancer: Yes (MULTIPLE MYELOMA--DIAGNOSED AROUND 2003, 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) Did You Recieve Any Treatments: Yes What Type of Treatment Did You: Chemotherapy Psychosocial: No Integumentary: No Blood Disorders: Yes (PANCYTOPENIA ON CHEMO) Adverse Reaction/Blood Tranf: No Family Medical History Cancer Physical Exam Vital Signs Vital Signs - First Documented 10/06/17 11:40 Temp 97.7 Pulse 87 Resp 15 B/P (MAP) 97/63 (74) O2 Delivery Room Air Capillary Refill : Height, Weight, BMI Height: 5', 5.00" Weight: 163lbs 2.0oz, 73.339740am Method:Stated ,27.1BMI General Appearance: No Apparent Distress, WD/WN HEENT: PERRL/EOMI, Pharynx Normal; No Moist Mucous Membranes Neck: Full Range of Motion, Supple Cardiovascular: Regular Rate, Rhythm, Normal Peripheral Pulses Respiratory: Lungs Clear, Normal Breath Sounds, No Accessory Muscle Use, No Respiratory Distress, Other (tenderness to the left anterior ribs with no palpable deformity or mass) Gastrointestinal: Normal Bowel Sounds, Non Tender, Soft Extremities: Normal Capillary Refill, No Pedal Edema Neurologic/Psychiatric: Alert, Oriented x3, No Motor/Sensory Deficits, Normal Mood/Affect, Other (no postictal state) Cranial Nerves: Normal Hearing, Normal Speech, PERRL Motor/Sensory: No Motor Deficit, No Sensory Deficit Skin: Normal Color, Warm/Dry Progress/Results/Core Measures Results/Orders Lab Results Laboratory Tests Test 10/06/17 11:42 Range/Units White Blood Count 3.1 L 4.3-11.0 10^3/uL Red Blood Count 3.63 L 4.35-5.85 10^6/uL Hemoglobin 11.8 L 13.3-17.7 G/DL Hematocrit 32 L 40-54 % Mean Corpuscular Volume 87 80-99 FL Mean Corpuscular Hemoglobin 33 25-34 PG Mean Corpuscular Hemoglobin Concent 37 H 32-36 G/DL Red Cell Distribution Width 11.9 10.0-14.5 % Platelet Count 137 130-400 10^3/uL Mean Platelet Volume 9.4 7.4-10.4 FL Neutrophils (%) (Auto) 80 H 42-75 % Lymphocytes (%) (Auto) 6 L 12-44 % Monocytes (%) (Auto) 13 H 0-12 % Eosinophils (%) (Auto) 1 0-10 % Basophils (%) (Auto) 0 0-10 % Neutrophils # (Auto) 2.5 1.8-7.8 X 10^3 Lymphocytes # (Auto) 0.2 L 1.0-4.0 X 10^3 Monocytes # (Auto) 0.4 0.0-1.0 X 10^3 Eosinophils # (Auto) 0.0 0.0-0.3 10^3/uL Basophils # (Auto) 0.0 0.0-0.1 10^3/uL Neutrophils % (Manual) 84 % Lymphocytes % (Manual) 4 % Monocytes % (Manual) 12 % [place] Cells SLIGHT Crenated Cell MODERATE Sodium Level 132 L 135-145 MMOL/L Potassium Level 3.2 L 3.6-5.0 MMOL/L Chloride Level 107 98-107 MMOL/L Carbon Dioxide Level 13 L 21-32 MMOL/L Anion Gap 12 5-14 MMOL/L Blood Urea Nitrogen 16 7-18 MG/DL Creatinine 1.19 0.60-1.30 MG/DL Estimat Glomerular Filtration Rate > 60 BUN/Creatinine Ratio 13 Glucose Level 232 H 70-105 MG/DL Calcium Level 8.1 L 8.5-10.1 MG/DL Magnesium Level 2.2 1.8-2.4 MG/DL Total Bilirubin 0.7 0.1-1.0 MG/DL Aspartate Amino Transf (AST/SGOT) 36 H 5-34 U/L Alanine Aminotransferase (ALT/SGPT) 56 H 0-55 U/L Alkaline Phosphatase 72 40-136 U/L Total Protein 5.9 L 6.4-8.2 GM/DL Albumin 3.6 3.2-4.5 GM/DL Serum Alcohol < 10 <10 MG/DL My Orders Orders - TAN MCKEON Ct Head/Cervical Spine Wo (10/06/17 11:34) Saline Lock/Iv-Start (10/06/17 11:34) Alcohol (10/06/17 11:34) Cbc With Automated Diff (10/06/17 11:34) Comprehensive Metabolic Panel (10/06/17 11:34) Magnesium (10/06/17 11:34) Ribs, Left 2-3 Views (10/06/17 11:34) Ns Iv 1000 Ml (Sodium Chloride 0.9%) (10/06/17 11:34) Ekg Tracing (10/06/17 11:34) Orthostatic Vital Signs (Adult (10/06/17 11:34) Manual Differential (10/06/17 11:42) Potassium Chloride (Tablet) (K Dur Table (10/06/17 13:00) Ua Culture If Indicated (10/06/17 13:19) Saline Lock/Iv-Start (10/06/17 13:20) BNP (10/06/17 13:28) Medications Given in ED Current Medications Medications Dose Ordered Sig/Carmel Route Start Time Stop Time Status Last Admin Dose Admin Potassium Chloride 20 meq ONCE ONCE PO 10/06/17 13:00 10/06/17 13:01 DC 10/06/17 13:25 20 MEQ Vital Signs/I&O 10/06/17 10/06/17 11:40 13:12 Temp 97.7 Pulse 87 81 82 75 Resp 15 B/P (MAP) 97/63 (74) 123/82 (96) 111/69 (83) 71/51 (58) O2 Delivery Room Air Progress Progress Note #1: Time: 11:59 Progress Note By history it seems he's had another vasovagal syncope off the toilet. He has struck his head and even though he is a nontraumatic head were going to obtain an x-ray of his head. He is no longer on any aspirin or blood thinners. He is not postictal Sade demonstrating any evidence of a new seizure disorder. His blood pressure is low in the 90s on arrival so were going give him some fluids by his port. We'll get some basic labs and look for evidence of infection or anemia etc. He did just have his chemotherapy about 3-4 days ago. 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 She has not talked primary care provider about setting up home health or adult daycare nor has she considered in home help or assisted-living. Progress Note #2: Time: 13:38 Progress Note After the first liter fluids patient was feeling well enough to do the orthostatics so we had him start at 125 lying he went to 111 sitting and dropped to 71 systolic on standing. He became very dizzy and was about to fall so they returned from the bed. 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 He would be reasonable to observe him overnight with some more IV fluids and attempt to come up with an alternative diagnosis. No the medication she is on is directly intruding except for possibly Megace and the opiates and gabapentin. Going to give him the second liter bolus and talked to inpatient medicine. The urine that was collected was contaminated so we'll attempt to get another sample. We cannot see any evidence of pneumonia clinically or radiographic evidence of pneumonia. Initial ECG Impression Date: Oct 06, 2017 Initial ECG Impression Time: 13:01 Initial ECG Rate: 79 Initial ECG Rhythm: Normal Sinus Initial ECG Intervals: Normal Initial ECG Impression: Normal Initial ECG Comparisson: Unchanged Comment No ST wave elevation or depression. Diagnostic Imaging Diagonstic Imaging: Xray Plain Films/CT/US/NM/MRI: chest (left ribs 2-3v) Comments No acute osseous abnormality. Lungs are normal appearance. Fully and inflated and without infiltrate. Reviewed: Reviewed by Me Diagonstic Imaging: CT (W/O Contrast) Plain Films/CT/US/NM/MRI: c-spine, head Comments VIA [place], [place] NAME: [facility] REC#: [id number] PT STATUS: REG ER : 1950 PHYSICIAN: TAN MCKEON MD ADMIT DATE: 10/06/17/ER Draft Date of Exam:10/06/17 CT HEAD/CERVICAL SPINE WO PROCEDURE: CT head and CT cervical spine without contrast. TECHNIQUE: Multiple contiguous axial images were obtained through the brain and cervical spine without the use of intravenous contrast. Sagittal and coronal reformations through the cervical spine were then performed. INDICATION: Fell. FINDINGS: CT of the head: There is no mass, shift of the midline, or hemorrhage to suggest an acute intracranial abnormality. The ventricles are not abnormally dilated and stable in size when compared to the recent exam of 10/04/2017. The bone windows again show that the calvarium has a mottled appearance. This would be consistent with the patient's diagnosis of multiple myeloma. The orbits are symmetrical and within normal limits. The sinuses are generally clear. IMPRESSION: There is no evidence for an acute intracranial abnormality. When compared to the prior study, there has been no significant change. There are no prior studies available for comparison. The reconstructed sagittal images show the vertebral body heights and alignment to be within normal limits. There is generalized narrowing of the disc spaces at C2-C3, C3-C4, C4-C5, C5-C6, and C6-C7. There is no evidence for high-grade central stenosis at any level of the cervical spine, however. There is no fracture or acute bony abnormality evident. There is no evidence for retropharyngeal edema. The lung apices are clear. The thyroid gland is partially obscured by streak artifact. There does appear to be a central venous catheter in place on the left. The catheter is not visualized in its entirety. IMPRESSION: There is no evidence for an acute bony abnormality. Dictated on workstation # [id number] Dict: 10/06/17 1210 Trans: 10/06/17 1246 [id number] Interpreted by: ABHIJEET CUMMINGS MD Electronically signed by: Reviewed: Reviewed by Me Departure Communication (Admissions) Time/Spoke to Admitting Phy: 13:55 Dr. Ramey agrees with fluids, observation and she'll see the patient. Urinalysis pending. Impression Primary Impression: Vasovagal syncope Additional Impression: Orthostatic hypotension Disposition: ADMITTED INPATIENT Condition: Stable Admissions Decision to Admit Reason: Admit from ER (General) Decision to Admit/Date: Oct 06, 2017 Time/Decision to Admit Time: 13:55 Departure-Patient Inst. Referrals: YOMI RAMESH MD (PCP/Family) Primary Care Physician TAN MCKEON Oct 06, 2017 11:41
[2017-10-06] MEDS: NS IV 1000 ML 1,000 ML IV SCH (11:46)
[2017-10-06 11:55] LABS: BASOPHILS % (AUTO) 0 % (0-10); EOSINOPHILS % (AUTO) 1 % (0-10); HEMATOCRIT 32 % (40-54); HEMOGLOBIN 11.8 G/DL (13.3-17.7); LYMPHOCYTES # (AUTO) 0.2 X 10^3 (1.0-4.0); LYMPHOCYTES % (AUTO) 6 % (12-44); MEAN CORPUSCULAR HEMOGLOBIN 33 PG (25-34); MEAN CORPUSCULAR HGB CONC 37 G/DL (32-36); MEAN CORPUSCULAR VOLUME 87 FL (80-99); MEAN PLATELET VOLUME 9.4 FL (7.4-10.4); MONOCYTES # (AUTO) 0.4 X 10^3 (0.0-1.0); MONOCYTES % (AUTO) 13 % (0-12); NEUTROPHILS # (AUTO) 2.5 X 10^3 (1.8-7.8); NEUTROPHILS % (AUTO) 80 % (42-75); PLATELET COUNT 137 10^3/uL (130-400); RED BLOOD COUNT 3.63 10^6/uL (4.35-5.85); RED CELL DISTRIBUTION WIDTH 11.9 % (10.0-14.5); WHITE BLOOD COUNT 3.1 10^3/uL (4.3-11.0)
[2017-10-06 12:26] LABS: BURR CELLS SLIGHT; CRENATED RBC MODERATE; LYMPHOCYTES % (MANUAL) 4 %; MONOCYTES % (MANUAL) 12 %; NEUTROPHILS % (MANUAL) 84 %
[2017-10-06 12:28] LABS: ALANINE AMINOTRANSFERASE 56 U/L (0-55); ALBUMIN 3.6 GM/DL (3.2-4.5); ALKALINE PHOSPHATASE 72 U/L (40-136); BILIRUBIN,TOTAL 0.7 MG/DL (0.1-1.0); BUN/CREATININE RATIO 13; CALCIUM 8.1 MG/DL (8.5-10.1); CARBON DIOXIDE 13 MMOL/L (21-32); CHLORIDE 107 MMOL/L (98-107); CREATININE SERUM 1.19 MG/DL (0.60-1.30); GFR ESTIMATED > 60; GLUCOSE 232 MG/DL (70-105); MAGNESIUM 2.2 MG/DL (1.8-2.4); POTASSIUM 3.2 MMOL/L (3.6-5.0); SODIUM 132 MMOL/L (135-145); TOTAL PROTEIN 5.9 GM/DL (6.4-8.2)
--- NOTE | 2017-10-06 12:47 | Diagnostic Imaging Report ---
PROCEDURE: CT head and CT cervical spine without contrast. TECHNIQUE: Multiple contiguous axial images were obtained through the brain and cervical spine without the use of intravenous contrast. Sagittal and coronal reformations through the cervical spine were then performed. INDICATION: Fell. FINDINGS: CT of the head: There is no mass, shift of the midline, or hemorrhage to suggest an acute intracranial abnormality. The ventricles are not abnormally dilated and stable in size when compared to the recent exam of 10/04/2017. The bone windows again show that the calvarium has a mottled appearance. This would be consistent with the patient's diagnosis of multiple myeloma. The orbits are symmetrical and within normal limits. The sinuses are generally clear. IMPRESSION: There is no evidence for an acute intracranial abnormality. When compared to the prior study, there has been no significant change. There are no prior studies available for comparison. The reconstructed sagittal images show the vertebral body heights and alignment to be within normal limits. There is generalized narrowing of the disc spaces at C2-C3, C3-C4, C4-C5, C5-C6, and C6-C7. There is no evidence for high-grade central stenosis at any level of the cervical spine, however. There is no fracture or acute bony abnormality evident. There is no evidence for retropharyngeal edema. The lung apices are clear. The thyroid gland is partially obscured by streak artifact. There does appear to be a central venous catheter in place on the left. The catheter is not visualized in its entirety. IMPRESSION: There is no evidence for an acute bony abnormality. Dictated by: Dictated on workstation # [id number]
[2017-10-06] MEDS ORDERED: KCL 20 MEQ TAB (K-DUR) PO ONE (13:00)
[2017-10-06 13:12] VITALS: BP_SYST 111; BP_SYST 123; BP_SYST 71; BP_DIAS 51; BP_DIAS 69; BP_DIAS 82
--- OUTSIDE RECORDS SUMMARY | 2017-10-06 13:29 | XMS REPORT | Clinical Summary ---
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 Maliheh Ziglari PLATER BARREL Diabetes mellitus without mention of complication, type II or unspecified type, uncontrolled Chest pain, atypical 786.59 Active Prosper Arenas MD Other chest pain Bronchitis 490 Active Prosper Arenas MD Bronchitis, not specified as acute or chronic Multiple myeloma 203.00 Active Gena Montoya RMA Multiple myeloma without mention of having achieved remission Hypercalcemia 275.42 Active Gena Montoya RMA Hypercalcemia Medication List Medication Instructions Start Date Stop Date Generic Name NDC Status Provider Patient Instruction ZITHROMAX Z-EDDIE 250 MG TABS 2 today, then 1 daily for 4 days 2014 AZITHROMYCIN 24492308231 Active Prosper Arenas MD Active BENZONATATE 200 MG CAPS 1 tab, 2-3 times a day BENZONATATE 86034238086 Active Prosper Arenas MD Active NOVOLOG FLEXPEN 100 UNIT/ML SOPN Take 10 units with each meal, add 2u/50 for blood sugars above 150 INSULIN ASPART 75886650158 Active Moy Wallaceglari PLATER BARREL Active LANTUS SOLOSTAR 100 UNIT/ML SOLN 30 units at 4-5pm daily INSULIN GLARGINE 72904756259 Active Malpapo Wallaceglari PLATER BARREL Active NOVOLIN R RELION 100 UNIT/ML INJ SOLN 30- 40 units each meal sliding scale INSULIN REGULAR HUMAN 14519900331 No Longer Active Moy Wallaceglari PLATER BARREL Active LISINOPRIL 5 MG TABS 1 daily LISINOPRIL 66475980605 Active Prosper Arenas MD Active CALCIUM 500/D 500-200 MG-UNIT TABS one tablet daily CALCIUM CARBONATE- VITAMIN D 37518438608 Active Prosper Arenas MD Active REVLIMID 25 MG CAPS one capsule daily for 21 days then off for 7 days LENALIDOMIDE 02427632368 Active Prosper Arenas MD Active HYDROCHLOROTHIAZIDE 25 MG TABS 1 tablet by mouth daily HYDROCHLOROTHIAZIDE 06395843644 Active Prosper Arenas MD Active HYDROCODONE-ACETAMINOPHEN 5-500 MG TABS 1-2 FOUR TIMES A DAY, PRN HYDROCODONE-ACETAMINOPHEN 10771353100 No Longer Active Prosper Arenas MD Active TRAZODONE HCL 50 MG TAB three tablets at bed time TRAZODONE HCL 37967294703 Active Prosper Arenas MD Active SIMVASTATIN 80 MG TABS 1/2 tablet daily SIMVASTATIN 03059821722 Active Prosper Arenas MD Active METOPROLOL TARTRATE 25 MG TABS 1/2 tablet twice a day METOPROLOL TARTRATE 25818109209 Active Prosper Arenas MD Active HALOPERIDOL 0.5 MG TABS one tablet three times a day HALOPERIDOL 01486693280 Active Prosper Arenas MD Active ASPIRIN 81 MG TAB 1 tablet by mouth daily ASPIRIN 50182768919 Active Prosper Arenas MD Active OMEPRAZOLE 20 MG CPDR 1 qd OMEPRAZOLE 05624249022 Active DARCIE Miller Active DOXYCYCLINE HYCLATE 100 MG CAPS take one capsule by mouth twice daily for ten days DOXYCYCLINE HYCLATE 97222065080 No Longer Active Mekhi Dukes MD Active DOXYCYCLINE HYCLATE 100 MG CAPS take one capsule by mouth twice daily for ten days DOXYCYCLINE HYCLATE 100 MG CAPS 19890505 DOXYCYCLINE HYCLATE Inactive HYDROCODONE-ACETAMINOPHEN 5-500 MG TABS [...] Panel - Chemistry sodium, serum 137 mmol/L 857-973 0758/08/22 potassium, serum 4.0 mmol/L 3.5-5.2 chloride, serum 100 mmol/L 98-107 carbon dioxide, venous blood 27.9 mmol/L 21.0-32.0 blood glucose 109 mg/dL 65-110 calcium, serum 9.0 mg/dL 8.5-10.1 urea nitrogen, blood 15 mg/dL 7-18 creatinine, serum 2.00 mg/dL 0.60-1.30 Lab Report: Basic Metabolic Panel, HGBA1C - Chemistry sodium, serum 134 mmol/L 128-245 2616/01/27 potassium, serum 4.1 mmol/L 3.5-5.2 chloride, serum 96 mmol/L 98-107 carbon dioxide, venous blood 35.1 mmol/L 21.0-32.0 blood glucose 346 mg/dL 65-110 calcium, serum 8.4 mg/dL 8.5-10.1 urea nitrogen, blood 18 mg/dL 7-18 creatinine, serum 2.00 mg/dL 0.60-1.30 hemoglobin A1C, blood, as % of total hemoglobin 8.4 % 4.3-6.0 Lab Report: CBC W/DIFF, Comp. Metabolic Panel - Chemistry sodium, serum 137 mmol/L 699-146 9173/01/21 potassium, serum 4.1 mmol/L 3.5-5.2 chloride, serum 99 mmol/L 98-107 carbon dioxide, venous blood 30.9 mmol/L 21.0-32.0 blood glucose 303 mg/dL 65-110 urea nitrogen, blood 19 mg/dL 7-18 creatinine, serum 2.00 mg/dL 0.60-1.30 alanine aminotransferase (SGPT), serum 84 U/L 12-78 aspartate aminotransferase (SGOT), serum 41 U/L 15-37 calcium, serum 7.8 mg/dL 8.5-10.1 bilirubin, serum, total 0.50 mg/dL 0.00-1.00 sodium, serum 131 mmol/L 186-753 4106/03/18 potassium, serum 4.4 mmol/L 3.5-5.2 chloride, serum 95 mmol/L 98-107 carbon dioxide, venous blood 19.0 mmol/L 21.0-32.0 blood glucose 297 mg/dL 65-110 urea nitrogen, blood 19 mg/dL 7-18 creatinine, serum 1.70 mg/dL 0.60-1.30 alanine aminotransferase (SGPT), serum 184 U/L 12-78 aspartate aminotransferase (SGOT), serum 177 U/L 15-37 calcium, serum 7.8 mg/dL 8.5-10.1 bilirubin, serum, total 0.50 mg/dL 0.00-1.00 sodium, serum 135 mmol/L 077-866 5493/11/26 potassium, serum 4.4 mmol/L 3.5-5.2 chloride, serum [...] % 11.6-14.8 platelet count 172 10^3/MM^3 10*3/mm3 151-291 4639/01/21 leukocyte count, blood 6.3 10^3/MM^3 10*3/mm3 4.6-10.2 [...] % 11.6-14.8 platelet count 137 10^3/MM^3 10*3/mm3 188-360 3652/03/18 leukocyte count, blood 4.8 10^3/MM^3 10*3/mm3 4.6-10.2 [...] Ag - Chemistry sodium, serum 131 mmol/L 958-226 2792/10/13 potassium, serum 3.6 mmol/L 3.5-5.2 chloride, serum [...] 0.60 mg/dL 0.00-1.00 cholesterol, serum 98 mg/dL 475-845 0508/10/13 triglyceride, serum, fasting 125 mg/dL 30-200 HDL [...] mg/dL Encounters Code Encounter Date Provider Facility CPT-11409 Level 3 Est. Patient 12:00:42 CDT Prosper Arenas MD [facility] CPT-57729 Level 3 Est. Patient 09:57:28 [employer] [facility] CPT-96771 Level 3 Est. Patient 11:41:19 [employer] [facility] CPT-47181 Level 4 Est. Patient 17:07:35 [employer] [facility] CPT-14322 Level 5 Est. Patient 14:33:32 CDT [facility] CPT-28528 Level 3 Est. Patient 12:25:35 CDT Prosper Arenas MD [facility] Procedures Code Procedure Name Date Entry Date Standard Description CPT-TCMM Transitional Care Mgmt-Moderate 13:40:15 CDT CPT-G0008 Administration of Influenza Virus Vaccine 13:59:20 CDT CPT-71852 Fluzone High-Dose Intramuscular Suspension 13:59:20 CDT CPT-33827 Venipuncture Draw Fee 09:56:19 CDT CPT-OV Office Visit 15:46:10 CDT
--- OUTSIDE RECORDS SUMMARY | 2017-10-06 13:30 | XMS REPORT | Clinical Summary ---
Author Author Admin, IWONA Tinsley [facility] Address Unknown Phone Unavailable Allergies, Adverse Reactions, Alerts Allergy Name Reaction Description Start Date Severity Status Provider CODEINE Critical Active Maliheh Ziglari SCANNER OPERATOR ERYTHROMYCIN Critical Active Maliheh Ziglari SCANNER OPERATOR DARVOCET Critical Active Maliheh Ziglari SCANNER OPERATOR LEVAQUIN Critical Active Maliheh Ziglari SCANNER OPERATOR Conditions or Problems Problem Name Problem [...] type II, uncontrolled 250.02 Active Maliheh Ziglari SCANNER OPERATOR Diabetes mellitus without mention of complication, [...] Instruction NOVOLOG FLEXPEN 100 UNIT/ML SOPN Take 10 units with each meal, add 2u/50 for blood sugars above 150 INSULIN ASPART 39054768559 Active Malcarissaeh Ziglari SCANNER OPERATOR Active LANTUS SOLOSTAR 100 UNIT/ML SOLN 30 units at 4-5pm daily INSULIN GLARGINE 27478303108 Active Maliheh Ziglari SCANNER OPERATOR Active NOVOLIN R RELION 100 UNIT/ML INJ SOLN 30- 40 units each meal sliding scale INSULIN REGULAR HUMAN 47230500938 No Longer Active Moy Garcia SCANNER OPERATOR Active LISINOPRIL 5 MG TABS 1 daily LISINOPRIL 96564396788 Active Prosper Arenas MD Active CALCIUM 500/D 500-200 MG-UNIT TABS one tablet daily CALCIUM CARBONATE- VITAMIN D 69774913552 Active Prosper Arenas MD Active REVLIMID 25 MG CAPS one capsule daily for 21 days then off for 7 days LENALIDOMIDE 50581642033 Active Prosper Arenas MD Active HYDROCHLOROTHIAZIDE 25 MG TABS 1 tablet by mouth daily HYDROCHLOROTHIAZIDE 52699894425 Active Prosper Arenas MD Active HYDROCODONE-ACETAMINOPHEN 5-500 MG TABS 1-2 FOUR TIMES A DAY, PRN HYDROCODONE-ACETAMINOPHEN 96600128230 No Longer Active Prosper Arenas MD Active TRAZODONE HCL 50 MG TAB three tablets at bed time TRAZODONE HCL 85552892116 Active Prosper Arenas MD Active SIMVASTATIN 80 MG TABS 1/2 tablet daily SIMVASTATIN 94285978948 Active Prosper Arenas MD Active METOPROLOL TARTRATE 25 MG TABS 1/2 tablet twice a day METOPROLOL TARTRATE 38198016767 Active Prosper Arenas MD Active HALOPERIDOL 0.5 MG TABS one tablet three times a day HALOPERIDOL 12939293861 Active Prosper Arenas MD Active ASPIRIN 81 MG TAB 1 tablet by mouth daily ASPIRIN 27523225308 Active Prosper Arenas MD Active OMEPRAZOLE 20 MG CPDR 1 qd OMEPRAZOLE 69407651110 Active DARCIE Miller Active DOXYCYCLINE HYCLATE 100 MG CAPS take one capsule by mouth twice daily for ten days DOXYCYCLINE HYCLATE 35398349951 No Longer Active Mekhi Dukes MD Active [...] Panel - Chemistry sodium, serum 137 mmol/L 461-169 2412/08/22 potassium, serum 4.0 mmol/L 3.5-5.2 chloride, serum 100 mmol/L 98-107 carbon dioxide, venous blood 27.9 mmol/L 21.0-32.0 blood glucose 109 mg/dL 65-110 calcium, serum 9.0 mg/dL 8.5-10.1 urea nitrogen, blood 15 mg/dL 7-18 creatinine, serum 2.00 mg/dL 0.60-1.30 Lab Report: Basic Metabolic Panel, HGBA1C - Chemistry sodium, serum 134 mmol/L 406-754 6554/01/27 potassium, serum 4.1 mmol/L 3.5-5.2 chloride, serum 96 mmol/L 98-107 carbon dioxide, venous blood 35.1 mmol/L 21.0-32.0 blood glucose 346 mg/dL 65-110 calcium, serum 8.4 mg/dL 8.5-10.1 urea nitrogen, blood 18 mg/dL 7-18 creatinine, serum 2.00 mg/dL 0.60-1.30 hemoglobin A1C, blood, as % of total hemoglobin 8.4 % 4.3-6.0 Lab Report: CBC W/DIFF, Comp. Metabolic Panel - Chemistry sodium, serum 137 mmol/L 805-538 8631/01/21 potassium, serum 4.1 mmol/L 3.5-5.2 chloride, serum 99 mmol/L 98-107 carbon dioxide, venous blood 30.9 mmol/L 21.0-32.0 blood glucose 303 mg/dL 65-110 urea nitrogen, blood 19 mg/dL 7-18 creatinine, serum 2.00 mg/dL 0.60-1.30 alanine aminotransferase (SGPT), serum 84 U/L 12-78 aspartate aminotransferase (SGOT), serum 41 U/L 15-37 calcium, serum 7.8 mg/dL 8.5-10.1 bilirubin, serum, total 0.50 mg/dL 0.00-1.00 sodium, serum 131 mmol/L 994-960 1087/03/18 potassium, serum 4.4 mmol/L 3.5-5.2 chloride, serum 95 mmol/L 98-107 carbon dioxide, venous blood 19.0 mmol/L 21.0-32.0 blood glucose 297 mg/dL 65-110 urea nitrogen, blood 19 mg/dL 7-18 creatinine, serum 1.70 mg/dL 0.60-1.30 alanine aminotransferase (SGPT), serum 184 U/L -78 aspartate aminotransferase (SGOT), serum 177 U/L 15-37 calcium, serum 7.8 mg/dL 8.5-10.1 bilirubin, serum, total 0.50 mg/dL 0.00-1.00 sodium, serum 135 mmol/L 608-490 6517/11/26 potassium, serum 4.4 mmol/L 3.5-5.2 chloride, serum [...] % 11.6-14.8 platelet count 172 10^3/MM^3 10*3/mm3 623-498 5112/01/21 leukocyte count, blood 6.3 10^3/MM^3 10*3/mm3 4.6-10.2 [...] % 11.6-14.8 platelet count 137 10^3/MM^3 10*3/mm3 161-249 9629/03/18 leukocyte count, blood 4.8 10^3/MM^3 10*3/mm3 4.6-10.2 [...] Ag - Chemistry sodium, serum 131 mmol/L 423-324 5453/10/13 potassium, serum 3.6 mmol/L 3.5-5.2 chloride, serum [...] 0.60 mg/dL 0.00-1.00 cholesterol, serum 98 mg/dL 734-450 4896/10/13 triglyceride, serum, fasting 125 mg/dL 30-200 HDL [...] mg/dL Encounters Code Encounter Date Provider Facility CPT-68828 Level 3 Est. Patient 09:57:28 [employer]PT-[facility]85 Level 3 Est. Patient 11:41:19 [employer] [facility] CPT-49895 Level 4 Est. Patient 17:07:35 [employer] [facility] CPT-21935 Level 5 Est. Patient 14:33:32 CDT [facility] CPT-15838 Level 3 Est. Patient 12:25:35 CDT Prosper Arenas MD [facility] Procedures Code Procedure Name Date Entry Date Standard Description CPT-TCMM Transitional Care Mgmt-Moderate 13:40:15 CDT CPT-G0008 Administration of Influenza Virus Vaccine 13:59:20 CDT CPT-40694 Fluzone High-Dose Intramuscular Suspension 13:59:20 CDT CPT-57936 Venipuncture Draw Fee 09:56:19 CDT CPT-OV Office Visit 15:46:10 CDT
--- OUTSIDE RECORDS SUMMARY | 2017-10-06 13:30 | XMS REPORT | Clinical Summary ---
Author Author Admin, IWONA Organization [facility] Address Unknown Phone Unavailable Allergies, Adverse Reactions, Alerts Allergy Name Reaction Description Start Date Severity Status Provider ERYTHROMYCIN Stomach cramps Moderate Active Prosper Arenas MD CODEINE Critical Active Maliheh Ziglari DIRECTOR OF AVIATION DARVOCET Critical Active Maliheh Ziglari DIRECTOR OF AVIATION LEVAQUIN Critical Active Maliheh Ziglari DIRECTOR OF AVIATION Conditions or Problems Problem Name Problem Code [...] uncontrolled 250.02 Active Maliheh Ziglari DIRECTOR OF AVIATION Diabetes mellitus without mention of complication, type [...] 1 daily for 4 days 2014 AZITHROMYCIN 63856657247 Active Prosper Arenas MD Active BENZONATATE 200 MG CAPS 1 tab, 2-3 times a day BENZONATATE 29053972515 Active Prosper Arenas MD Active NOVOLOG FLEXPEN 100 UNIT/ML SOPN Take 10 units with each meal, add 2u/50 for blood sugars above 150 INSULIN ASPART 98722060174 Active Moy Wallaceglari DIRECTOR OF AVIATION Active LANTUS SOLOSTAR 100 UNIT/ML SOLN 30 units at 4-5pm daily INSULIN GLARGINE 49940377638 Active Malpapo Wallaceglari DIRECTOR OF AVIATION Active NOVOLIN R RELION 100 UNIT/ML INJ SOLN 30- 40 units each meal sliding scale INSULIN REGULAR HUMAN 27852074078 No Longer Active Moy Wallaceglari DIRECTOR OF AVIATION Active LISINOPRIL 5 MG TABS 1 daily LISINOPRIL 22437690651 Active Prosper Arenas MD Active CALCIUM 500/D 500-200 MG-UNIT TABS one tablet daily CALCIUM CARBONATE- VITAMIN D 33945605231 Active Prosper Arenas MD Active REVLIMID 25 MG CAPS one capsule daily for 21 days then off for 7 days LENALIDOMIDE 94937528936 Active Prosper Arenas MD Active HYDROCHLOROTHIAZIDE 25 MG TABS 1 tablet by mouth daily HYDROCHLOROTHIAZIDE 08442830370 Active Prosper Arenas MD Active HYDROCODONE-ACETAMINOPHEN 5-500 MG TABS 1-2 FOUR TIMES A DAY, PRN HYDROCODONE-ACETAMINOPHEN 08269225086 No Longer Active Prosper Arenas MD Active TRAZODONE HCL 50 MG TAB three tablets at bed time TRAZODONE HCL 95733406125 Active Prosper Arenas MD Active SIMVASTATIN 80 MG TABS 1/2 tablet daily SIMVASTATIN 77975577635 Active Prosper Arenas MD Active METOPROLOL TARTRATE 25 MG TABS 1/2 tablet twice a day METOPROLOL TARTRATE 40840072882 Active Prosper Arenas MD Active HALOPERIDOL 0.5 MG TABS one tablet three times a day HALOPERIDOL 45476019349 Active Prosper Arenas MD Active ASPIRIN 81 MG TAB 1 tablet by mouth daily ASPIRIN 08416752955 Active Prosper Arenas MD Active OMEPRAZOLE 20 MG CPDR 1 qd OMEPRAZOLE 43082034142 Active DARCIE Miller Active DOXYCYCLINE HYCLATE 100 MG CAPS take one capsule by mouth twice daily for ten days DOXYCYCLINE HYCLATE 52121398011 No Longer Active Mekhi Dukes MD Active [...] Panel - Chemistry sodium, serum 137 mmol/L 149-243 4479/08/22 potassium, serum 4.0 mmol/L 3.5-5.2 chloride, serum 100 mmol/L 98-107 carbon dioxide, venous blood 27.9 mmol/L 21.0-32.0 blood glucose 109 mg/dL 65-110 calcium, serum 9.0 mg/dL 8.5-10.1 urea nitrogen, blood 15 mg/dL 7-18 creatinine, serum 2.00 mg/dL 0.60-1.30 Lab Report: Basic Metabolic Panel, HGBA1C - Chemistry sodium, serum 134 mmol/L 047-697 9100/01/27 potassium, serum 4.1 mmol/L 3.5-5.2 chloride, serum 96 mmol/L 98-107 carbon dioxide, venous blood 35.1 mmol/L 21.0-32.0 blood glucose 346 mg/dL 65-110 calcium, serum 8.4 mg/dL 8.5-10.1 urea nitrogen, blood 18 mg/dL 7-18 creatinine, serum 2.00 mg/dL 0.60-1.30 hemoglobin A1C, blood, as % of total hemoglobin 8.4 % 4.3-6.0 Lab Report: CBC W/DIFF, Comp. Metabolic Panel - Chemistry sodium, serum 137 mmol/L 965-491 1867/01/21 potassium, serum 4.1 mmol/L 3.5-5.2 chloride, serum 99 mmol/L 98-107 carbon dioxide, venous blood 30.9 mmol/L 21.0-32.0 blood glucose 303 mg/dL 65-110 urea nitrogen, blood 19 mg/dL 7-18 creatinine, serum 2.00 mg/dL 0.60-1.30 alanine aminotransferase (SGPT), serum 84 U/L 12-78 aspartate aminotransferase (SGOT), serum 41 U/L 15-37 calcium, serum 7.8 mg/dL 8.5-10.1 bilirubin, serum, total 0.50 mg/dL 0.00-1.00 sodium, serum 131 mmol/L 084-976 3432/03/18 potassium, serum 4.4 mmol/L 3.5-5.2 chloride, serum 95 mmol/L 98-107 carbon dioxide, venous blood 19.0 mmol/L 21.0-32.0 blood glucose 297 mg/dL 65-110 urea nitrogen, blood 19 mg/dL 7-18 creatinine, serum 1.70 mg/dL 0.60-1.30 alanine aminotransferase (SGPT), serum 184 U/L 12-78 aspartate aminotransferase (SGOT), serum 177 U/L 15-37 calcium, serum 7.8 mg/dL 8.5-10.1 bilirubin, serum, total 0.50 mg/dL 0.00-1.00 sodium, serum 135 mmol/L 434-268 6399/11/26 potassium, serum 4.4 mmol/L 3.5-5.2 chloride, serum [...] % 11.6-14.8 platelet count 172 10^3/MM^3 10*3/mm3 995-522 1383/01/21 leukocyte count, blood 6.3 10^3/MM^3 10*3/mm3 4.6-10.2 [...] % 11.6-14.8 platelet count 137 10^3/MM^3 10*3/mm3 064-092 8209/03/18 leukocyte count, blood 4.8 10^3/MM^3 10*3/mm3 4.6-10.2 [...] Ag - Chemistry sodium, serum 131 mmol/L 588-797 1328/10/13 potassium, serum 3.6 mmol/L 3.5-5.2 chloride, serum [...] 0.60 mg/dL 0.00-1.00 cholesterol, serum 98 mg/dL 059-316 4828/10/13 triglyceride, serum, fasting 125 mg/dL 30-200 HDL [...] mg/dL Encounters Code Encounter Date Provider Facility CPT-45614 Level 3 Est. Patient 12:00:42 CDT Prosper Arenas MD [facility] CPT-44787 Level 3 Est. Patient 09:57:28 IDENTITY MANAGEMENT CONSULTANT [facility] [place] [facility] CPT-47169 Level 3 Est. Patient 11:41:19 IDENTITY MANAGEMENT CONSULTANT [facility] [place] CPT-31184 Level 4 Est. Patient 17:07:35 IDENTITY MANAGEMENT CONSULTANT [facility] [place] CPT-90156 Level 5 Est. Patient 14:33:32 CDT [facility] [place] CPT-61196 Level 3 Est. Patient 12:25:35 CDT Prosper Arenas MD [facility] Procedures Code Procedure Name Date Entry Date Standard Description CPT-TCMM Transitional Care Mgmt-Moderate 13:40:15 CDT CPT-G0008 Administration of Influenza Virus Vaccine 13:59:20 CDT CPT-82152 Fluzone High-Dose Intramuscular Suspension 13:59:20 CDT CPT-08101 Venipuncture Draw Fee 09:56:19 CDT CPT-OV Office Visit 15:46:10 CDT
--- OUTSIDE RECORDS SUMMARY | 2017-10-06 13:31 | XMS REPORT ---
Author Author [email or web address] Medical Staff Organization [facility] Address [address] [place], [place] [address] Phone [phone] Care Team Providers Care Airport Duty Manager Name Role Phone YOMI RAMESH MD PP [phone] Summary purpose TRANSITION OF CARE AUTO GENERATION [...] Levaquin Drug Allergy Levofloxacin Confirmed or Verified Codeine Drug Allergy Codeine Confirmed or Verified Propoxyphene Drug Allergy Propoxyphene Confirmed or Verified [...] diagnostic tests and/or laboratory data RESULTS Chemistry [id number]:00:00 Result Normal Range Units Sodium 134 134-145 mEq/l Potassium L 3.4 3.5-5.1 mEq/l Chloride L 97 98-107 mEq/l CO2 27.6 22-28 mEq/l Glucose H 268 70-105 mg/dl BUN 18 7-18 mg/dl Creatinine H 1.87 0.6-1.3 mg/dl Calcium 9.3 8.4-10.2 mg/dl PO4 L 1.8 1.9-4.5 mg/dl TP - Total Protein 8.2 6.0-8.3 g/dl Albumin L 3.4 3.5-5 g/dl Bilirubin - Total 0.4 0.1-1.0 mg/dl AST 26 10-42 IU/L LD 89 85-227 IU/L ALT 44 12-65 IU/L ALP H 110 39-107 IU/L Magnesium 2.0 1.7-2.8 mg/dl Osmolality L 279.6 280-300 mOsm/L Albumin/Globulin Ratio 0.7 0-8 Anion GAP 9.4 8-16 BUN/Creatinine Ratio L 9.6 10-20 Estimated GFR L 44 >=60 mL/min/1.7 Hematology :00:00 Result Normal Range Units WBC 5.3 4.8-10.8 103/uL RBC 4.7 4.7-6.1 106/uL HGB 14.0 13.0-18.0 g/dl HCT L 41.1 41.9-52.0 % MCV 87.8 80-94 FL MCH 29.9 27-31 pg MCHC 34.1 33-37 g/dl RDW 13.3 11.5-15.5 % PLT 240 130-400 103/uL MPV H 11.1 7.3-10.4 FL Neutro % 42.6 40-70 % Lymph % H 48.6 20-40 % [place] % 4.4 0-10.0 % Eos % 4.0 0-7.0 % Baso % 0.4 0-2 % Neutro # 2.2 1.5-7.5 103/uL Lymph # 2.6 0.9-4.0 103/uL [place] # 0.2 0-0.8 103/uL Eos # 0.2 0-0.6 103/uL Baso # 0.0 0-0.1 103/uL Radiology Results :00:00 Result Normal Range Units MPV H 11.1 7.3-10.4 FL History of procedures No procedures [...]
--- OUTSIDE RECORDS SUMMARY | 2017-10-06 13:31 | XMS REPORT | Clinical Summary ---
Author Author Admin, IWONA Organization [facility] Address Unknown Phone Unavailable Allergies, Adverse Reactions, Alerts Allergy Name Reaction Description Start Date Severity Status Provider No Known Allergies Khloe SPRAGUE Conditions or Problems Problem Name Problem Code [...] Hypokalemia 276.8 Active Prosper Arenas MD Hypopotassemia Medication List Medication Instructions Start Date Stop Date Generic Name [facility] Status Provider Patient Instruction CALCIUM 500/D 500-200 MG-UNIT TABS one tablet daily CALCIUM CARBONATE- VITAMIN D 81968376715 Active Prosper Arenas MD Active REVLIMID 25 MG CAPS one capsule daily for 21 days then off for 7 days LENALIDOMIDE 64100616610 Active Prosper Arenas MD Active HYDROCHLOROTHIAZIDE 25 MG TABS 1 tablet by mouth daily HYDROCHLOROTHIAZIDE 42720771969 Active Prosper Arenas MD Active HYDROCODONE-ACETAMINOPHEN 5-500 MG TABS 1-2 FOUR TIMES A DAY, PRN HYDROCODONE-ACETAMINOPHEN 15710710402 No Longer Active Prosper Arenas MD Active TRAZODONE HCL 50 MG TAB three tablets at bed time TRAZODONE HCL 88998446744 Active Prosper Arenas MD Active SIMVASTATIN 80 MG TABS 1/2 tablet daily SIMVASTATIN 86968053405 Active Prosper Arenas MD Active METOPROLOL TARTRATE 25 MG TABS 1/2 tablet twice a day METOPROLOL TARTRATE 60741873130 Active Prosper Arenas MD Active NOVOLIN R RELION 100 UNIT/ML INJ SOLN one unit four times a day, sliding scale INSULIN REGULAR HUMAN 15968212332 Active Prosper Arenas MD Active LANTUS SOLOSTAR 100 UNIT/ML SOLN 40 units at bed time INSULIN GLARGINE 58849576819 Active Prosper Arenas MD Active HALOPERIDOL 0.5 MG TABS one tablet three times a day HALOPERIDOL 26668508254 Active Prosper Arenas MD Active ASPIRIN 81 MG TAB 1 tablet by mouth daily ASPIRIN 73000249138 Active Prosper Arenas MD Active OMEPRAZOLE 20 MG CPDR 1 qd OMEPRAZOLE 59147747408 Active DARCIE Miller Active DOXYCYCLINE HYCLATE 100 MG CAPS take one capsule by mouth twice daily for ten days DOXYCYCLINE HYCLATE 95163401795 No Longer Active Mekhi Dukes MD Active DOXYCYCLINE HYCLATE 100 MG CAPS take one capsule by mouth twice daily for ten days DOXYCYCLINE HYCLATE 100 MG CAPS 235265 DOXYCYCLINE HYCLATE Inactive HYDROCODONE-ACETAMINOPHEN 5-500 MG TABS 1-2 FOUR TIMES A DAY, PRN HYDROCODONE-ACETAMINOPHEN 5-500 MG TABS HYDROCODONE- ACETAMINOPHEN Inactive Vital Signs Date Name Value Unit Range Description blood pressure, diastolic 68 mm[Hg] BP chavez blood pressure, systolic 102 mm[Hg] BP sys height E&M 66 [in_us] Bdy height pulse rate E&M 58 /min Heart rate temperature E&M 97.8 [degF] Body temperature weight E&M 166.6 [lb_av] Weight Measured blood pressure, diastolic 69 mm[Hg] BP chavez blood pressure, systolic 112 mm[Hg] BP sys height E&M 66 [in_us] Bdy height pulse rate E&M 88 /min Heart rate temperature E&M 97.3 [degF] Body temperature weight E&M 166 [lb_av] Weight Measured Diagnostic Results Date [...] Panel - Chemistry sodium, serum 137 mmol/L 434-872 6811/08/22 potassium, serum 4.0 mmol/L 3.5-5.2 chloride, serum 100 mmol/L 98-107 carbon dioxide, venous blood 27.9 mmol/L 21.0-32.0 blood glucose 109 mg/dL 65-110 calcium, serum 9.0 mg/dL 8.5-10.1 urea nitrogen, blood 15 mg/dL 7-18 creatinine, serum 2.00 mg/dL 0.60-1.30 Office Visit: Followup on Abdominal Pain - Chemistry cholesterol, target level 200 mg/dL triglyceride, target level 200 mg/dL HDL cholesterol, serum, target level 35 mg/dL LDL target level 100 mg/dL Encounters Code Encounter Date Provider Facility CPT-82169 Level 3 Est. Patient 12:25:35 CDT Prosper Arenas MD [facility] Procedures Code Procedure Name Date Entry Date Standard Description CPT-72174 Venipuncture Draw Fee 09:56:19 CDT CPT-OV Office Visit 15:46:10 CDT
--- OUTSIDE RECORDS SUMMARY | 2017-10-06 13:31 | XMS REPORT ---
Author Author [employer] [facility] Medical Staff Organization [facility] Address [address] [id number] Phone [phone] Care Team Providers Care Rod Placer Name Role Phone YOMI RAMESH MD PP [phone] Summary purpose TRANSITION OF CARE AUTO GENERATION [...] Levofloxacin Confirmed or Verified codeine Drug Allergy Codeine Confirmed or Verified Unknown Mild Propoxyphene Drug [...]
--- OUTSIDE RECORDS SUMMARY | 2017-10-06 13:31 | XMS REPORT | Clinical Summary ---
Author Author Admin, IWONA Organization [facility] Address Unknown Phone Unavailable Allergies, Adverse [...] Instructions Start Date Stop Date Generic Name [facility] Status Provider Patient Instruction CALCIUM 500/D 500-200 MG-UNIT TABS one tablet daily CALCIUM CARBONATE- VITAMIN D 38022165658 Active Prosper Arenas MD Active REVLIMID 25 MG CAPS one capsule daily for 21 days then off for 7 days LENALIDOMIDE 89717638917 Active Prosper Arenas MD Active HYDROCHLOROTHIAZIDE 25 MG TABS 1 tablet by mouth daily HYDROCHLOROTHIAZIDE 88801954236 Active Prosper Arenas MD Active HYDROCODONE-ACETAMINOPHEN 5-500 MG TABS 1-2 FOUR TIMES A DAY, PRN HYDROCODONE-ACETAMINOPHEN 04278763648 No Longer Active Prosper Arenas MD Active TRAZODONE HCL 50 MG TAB three tablets at bed time TRAZODONE HCL 32298193141 Active Prosper Arenas MD Active SIMVASTATIN 80 MG TABS 1/2 tablet daily SIMVASTATIN 89308315104 Active Prosper Arenas MD Active METOPROLOL TARTRATE 25 MG TABS 1/2 tablet twice a day METOPROLOL TARTRATE 44364836538 Active Prosper Arenas MD Active NOVOLIN R RELION 100 UNIT/ML INJ SOLN one unit four times a day, sliding scale INSULIN REGULAR HUMAN 01239765951 Active Prosper Arenas MD Active LANTUS SOLOSTAR 100 UNIT/ML SOLN 40 units at bed time INSULIN GLARGINE 04234761114 Active Prosper Arenas MD Active HALOPERIDOL 0.5 MG TABS one tablet three times a day HALOPERIDOL 18775302050 Active Prosper Arenas MD Active ASPIRIN 81 MG TAB 1 tablet by mouth daily ASPIRIN 67524099497 Active Prosper Arenas MD Active OMEPRAZOLE 20 MG CPDR 1 qd OMEPRAZOLE 20991697353 Active DARCIE Miller Active DOXYCYCLINE HYCLATE 100 MG CAPS take one capsule by mouth twice daily for ten days DOXYCYCLINE HYCLATE 55489870058 No Longer Active Mekhi Dukes MD Active DOXYCYCLINE HYCLATE 100 MG CAPS take one capsule by mouth twice daily for ten days DOXYCYCLINE HYCLATE 100 MG CAPS 950073 DOXYCYCLINE HYCLATE Inactive HYDROCODONE-ACETAMINOPHEN 5-500 MG TABS [...] Panel - Chemistry sodium, serum 137 mmol/L 564-343 0550/08/22 potassium, serum 4.0 mmol/L 3.5-5.2 chloride, serum 100 mmol/L 98-107 carbon dioxide, venous blood 27.9 mmol/L 21.0-32.0 blood glucose 109 mg/dL 65-110 calcium, serum 9.0 mg/dL 8.5-10.1 urea nitrogen, blood 15 mg/dL 7-18 creatinine, serum 2.00 mg/dL 0.60-1.30 Lab Report: CBC, HGBA1C, MICROALBUMIN - Chemistry hemoglobin A1C, blood, as % of total hemoglobin 9.2 % 4.3-6.0 albumin/creatinine ratio, urine 30 - 300 mg/g mg/g{creat} 0-29 Lab Report: CBC, HGBA1C, MICROALBUMIN - Hematology [...] Ag - Chemistry sodium, serum 131 mmol/L 032-240 3569/10/13 potassium, serum 3.6 mmol/L 3.5-5.2 chloride, serum [...] 0.60 mg/dL 0.00-1.00 cholesterol, serum 98 mg/dL 867-011 4166/10/13 triglyceride, serum, fasting 125 mg/dL 30-200 HDL cholesterol, serum 28 mg/dL 32-96 LDL cholesterol, serum 45 mg/dL 0-130 prostate specific antigen 0.30 ng/mL 0.00-4.00 Office Visit: Followup on Abdominal Pain - Chemistry cholesterol, target level 200 mg/dL triglyceride, target level 200 mg/dL HDL cholesterol, serum, target level 35 mg/dL LDL target level 100 mg/dL Encounters Code Encounter Date Provider Facility CPT-59330 Level 3 Est. Patient 12:25:35 CDT Prosper Arenas MD [facility] Procedures Code Procedure Name Date Entry Date Standard Description CPT-G0008 Administration of Influenza Virus Vaccine 13:59:20 CDT CPT-52240 Fluzone High-Dose Intramuscular Suspension 13:59:20 CDT CPT-80530 Venipuncture Draw Fee 09:56:19 CDT CPT-OV Office Visit 15:46:10 CDT
--- OUTSIDE RECORDS SUMMARY | 2017-10-06 13:31 | XMS REPORT | Clinical Summary ---
Author Author Admin, IWONA Organization [facility] Address Unknown Phone Unavailable Allergies, Adverse Reactions, Alerts Allergy Name Reaction Description Start Date Severity Status Provider Allergies Unknown Conditions or Problems Problem Name Problem Code [...] Dukes MD Abdominal pain, right upper quadrant Medication List Medication Instructions Start Date Stop Date Generic Name NDC Status Provider Patient Instruction OMEPRAZOLE 20 MG CPDR 1 qd OMEPRAZOLE 57068944896 Active DARCIE Milelr Active DOXYCYCLINE HYCLATE 100 MG CAPS take one capsule by mouth twice daily for ten days DOXYCYCLINE HYCLATE 67726057316 No Longer Active Mekhi Dukes MD Active HYDROCODONE-ACETAMINOPHEN 5-500 MG TABS 1-2 FOUR TIMES A DAY, PRN HYDROCODONE-ACETAMINOPHEN 29857072198 Active Prosper Arenas MD Active DOXYCYCLINE HYCLATE 100 MG CAPS take one capsule by mouth twice daily for ten days DOXYCYCLINE HYCLATE 100 MG CAPS 467828 DOXYCYCLINE HYCLATE Inactive Vital Signs Date Name Value Unit [...] Name Value Unit Range Description Office Visit: Followup on Abdominal Pain - Chemistry cholesterol, target level 200 mg/dL triglyceride, target level 200 mg/dL HDL cholesterol, serum, target level 35 mg/dL LDL target level 100 mg/dL Procedures Code Procedure Name Date Entry Date Standard Description CPT-OV Office Visit 15:46:10 CDT
--- OUTSIDE RECORDS SUMMARY | 2017-10-06 13:32 | XMS REPORT | Clinical Summary ---
Author Author Admin, IWONA Organization [facility] Address Unknown Phone Unavailable Allergies, Adverse [...] Instructions Start Date Stop Date Generic Name [facility] Status Provider Patient Instruction CALCIUM 500/D 500-200 MG-UNIT TABS one tablet daily CALCIUM CARBONATE- VITAMIN D 17733897558 Active Prosper Arenas MD Active REVLIMID 25 MG CAPS one capsule daily for 21 days then off for 7 days LENALIDOMIDE 15432605644 Active Prosper Arenas MD Active HYDROCHLOROTHIAZIDE 25 MG TABS 1 tablet by mouth daily HYDROCHLOROTHIAZIDE 39022103090 Active Prosper Arenas MD Active HYDROCODONE-ACETAMINOPHEN 5-500 MG TABS 1-2 FOUR TIMES A DAY, PRN HYDROCODONE-ACETAMINOPHEN 61200899923 No Longer Active Prosper Arenas MD Active TRAZODONE HCL 50 MG TAB three tablets at bed time TRAZODONE HCL 81316486884 Active Prosper Arenas MD Active SIMVASTATIN 80 MG TABS 1/2 tablet daily SIMVASTATIN 07721978132 Active Prosper Arenas MD Active METOPROLOL TARTRATE 25 MG TABS 1/2 tablet twice a day METOPROLOL TARTRATE 92791272891 Active Prosper Arenas MD Active NOVOLIN R RELION 100 UNIT/ML INJ SOLN one unit four times a day, sliding scale INSULIN REGULAR HUMAN 57169386956 Active Prosper Arenas MD Active LANTUS SOLOSTAR 100 UNIT/ML SOLN 40 units at bed time INSULIN GLARGINE 12973208779 Active Prosper Arenas MD Active HALOPERIDOL 0.5 MG TABS one tablet three times a day HALOPERIDOL 69277999219 Active Prosper Arenas MD Active ASPIRIN 81 MG TAB 1 tablet by mouth daily ASPIRIN 09386494222 Active Prosper Arenas MD Active OMEPRAZOLE 20 MG CPDR 1 qd OMEPRAZOLE 29125123731 Active DARCIE Miller Active DOXYCYCLINE HYCLATE 100 MG CAPS take one capsule by mouth twice daily for ten days DOXYCYCLINE HYCLATE 76160931795 No Longer Active Mekhi Dukes MD Active DOXYCYCLINE HYCLATE 100 MG CAPS take one capsule by mouth twice daily for ten days DOXYCYCLINE HYCLATE 100 MG CAPS 486605 DOXYCYCLINE HYCLATE Inactive HYDROCODONE-ACETAMINOPHEN 5-500 MG TABS [...] Name Value Unit Range Description Lab Report: Basic Metabolic Panel - Chemistry sodium, serum 137 mmol/L 548-525 1105/08/22 potassium, serum 4.0 mmol/L 3.5-5.2 chloride, serum [...] mg/dL Encounters Code Encounter Date Provider Facility CPT-66768 Level 3 Est. Patient 12:25:35 CDT Prosper Arenas MD [facility] Procedures Code Procedure Name Date Entry Date Standard Description CPT-OV Office Visit 15:46:10 CDT
--- OUTSIDE RECORDS SUMMARY | 2017-10-06 13:32 | XMS REPORT | Clinical Summary ---
Author Author Admin, IWONA Tinsley [facility] Address Unknown Phone Unavailable Allergies, Adverse Reactions, Alerts Allergy Name Reaction Description Start Date Severity Status Provider CODEINE Critical Active Maliheh Ziglari EXECUTIVE DIRECTOR [employer] ERYTHROMYCIN Critical Active Maliheh Ziglari EXECUTIVE DIRECTOR [employer] DARVOCET Critical Active Maliheh Ziglari EXECUTIVE DIRECTOR [employer] LEVAQUIN Critical Active Maliheh Ziglari EXECUTIVE DIRECTOR [employer] Conditions or Problems Problem Name Problem Code [...] type II, uncontrolled 250.02 Active Maliheh Ziglari EXECUTIVE DIRECTOR [employer] Diabetes mellitus without mention of complication, type II or unspecified type, uncontrolled Chest pain, atypical 786.59 Active Prosper Arenas MD Other chest pain Bronchitis 490 Active Prosper Arenas MD Bronchitis, not specified as acute or chronic Medication List Medication Instructions Start Date Stop Date Generic Name NDC Status Provider Patient Instruction LANTUS SOLOSTAR 100 UNIT/ML SOLN 40 units at 4-5pm daily INSULIN GLARGINE 46298632874 Active Moy Jose DURANTP Active NOVOLIN R RELION 100 UNIT/ML INJ SOLN 30- 40 units each meal sliding scale INSULIN REGULAR HUMAN 60568993341 Active Jose Antonioshoaib Garcia EXECUTIVE DIRECTOR [employer] Active LISINOPRIL 5 MG TABS 1 daily LISINOPRIL 99076306243 Active Prosper Arenas MD Active CALCIUM 500/D 500-200 MG-UNIT TABS one tablet daily CALCIUM CARBONATE- VITAMIN D 34433622849 Active Prosper Arenas MD Active REVLIMID 25 MG CAPS one capsule daily for 21 days then off for 7 days LENALIDOMIDE 56757565319 Active Prosper Arenas MD Active HYDROCHLOROTHIAZIDE 25 MG TABS 1 tablet by mouth daily HYDROCHLOROTHIAZIDE 23454946595 Active Prosper Arenas MD Active HYDROCODONE-ACETAMINOPHEN 5-500 MG TABS 1-2 FOUR TIMES A DAY, PRN HYDROCODONE-ACETAMINOPHEN 85331338031 No Longer Active Prosper Arenas MD Active TRAZODONE HCL 50 MG TAB three tablets at bed time TRAZODONE HCL 81685629315 Active Prosper Arenas MD Active SIMVASTATIN 80 MG TABS 1/2 tablet daily SIMVASTATIN 01733449551 Active Prosper Arenas MD Active METOPROLOL TARTRATE 25 MG TABS 1/2 tablet twice a day METOPROLOL TARTRATE 71006628899 Active Prosper Arenas MD Active HALOPERIDOL 0.5 MG TABS one tablet three times a day HALOPERIDOL 60013127319 Active Prosper Arenas MD Active ASPIRIN 81 MG TAB 1 tablet by mouth daily ASPIRIN 79947134036 Active Prosper Arenas MD Active OMEPRAZOLE 20 MG CPDR 1 qd OMEPRAZOLE 89739361853 Active DARCIE Miller Active DOXYCYCLINE HYCLATE 100 MG CAPS take one capsule by mouth twice daily for ten days DOXYCYCLINE HYCLATE 68594211070 No Longer Active Mekhi Dukes MD Active DOXYCYCLINE HYCLATE 100 MG CAPS take one capsule by mouth twice daily for ten days DOXYCYCLINE HYCLATE 100 MG CAPS 19890505 DOXYCYCLINE HYCLATE Inactive HYDROCODONE-ACETAMINOPHEN 5-500 MG TABS 1-2 FOUR TIMES A DAY, PRN HYDROCODONE-ACETAMINOPHEN 5-500 MG TABS HYDROCODONE- ACETAMINOPHEN Inactive Immunizations Vaccine Administration Date Value Standard Description influenza immunization (Flu Vax) has been administered 01/09/2014 influenza virus vaccine, unspecified formulation Vital Signs Date Name Value Unit Range Description blood pressure, diastolic 60 mm[Hg] BP chavez blood pressure, systolic 120 mm[Hg] BP sys pulse rate E&M 72 /min Heart rate weight E&M 162 [lb_av] Weight Measured blood pressure, diastolic 70 mm[Hg] BP chavez blood pressure, systolic 114 mm[Hg] BP sys pulse rate E&M 62 /min Heart rate temperature E&M 97.5 [degF] Body temperature weight E&M 165 [lb_av] Weight Measured blood pressure, diastolic 68 [...] Panel - Chemistry sodium, serum 137 mmol/L 041-987 9862/08/22 potassium, serum 4.0 mmol/L 3.5-5.2 chloride, serum [...] Ag - Chemistry sodium, serum 131 mmol/L 294-108 9803/10/13 potassium, serum 3.6 mmol/L 3.5-5.2 chloride, serum [...] 0.60 mg/dL 0.00-1.00 cholesterol, serum 98 mg/dL 181-202 4869/10/13 triglyceride, serum, fasting 125 mg/dL 30-200 HDL cholesterol, serum 28 mg/dL 32-96 LDL cholesterol, serum 45 mg/dL 0-130 prostate specific antigen 0.30 ng/mL 0.00-4.00 Office Visit: Diabetes Visit - Chemistry cholesterol, target level 200 mg/dL triglyceride, target level 200 mg/dL HDL cholesterol, serum, target level 35 mg/dL LDL target level 100 mg/dL home glucose monitor utilized Yes Office Visit: Followup on Abdominal Pain - Chemistry cholesterol, target level 200 mg/dL triglyceride, target level 200 mg/dL HDL cholesterol, serum, target level 35 mg/dL LDL target level 100 mg/dL Encounters Code Encounter Date Provider Facility CPT-46856 Level 5 Est. Patient 14:33:32 CDT Moy PARISH [facility] CPT-03525 Level 3 Est. Patient 12:25:35 CDT Prosper Arenas MD [facility] Procedures Code Procedure Name Date Entry Date Standard Description CPT-TCMM Transitional Care Mgmt-Moderate 13:40:15 CDT CPT-G0008 Administration of Influenza Virus Vaccine 13:59:20 CDT CPT-28156 Fluzone High-Dose Intramuscular Suspension 13:59:20 CDT CPT-76272 Venipuncture Draw Fee 09:56:19 CDT CPT-OV Office Visit 15:46:10 CDT
--- OUTSIDE RECORDS SUMMARY | 2017-10-06 13:32 | XMS REPORT ---
Author Author [facility] Address [address] [id number] Phone [phone] Care Team Providers Care Occupational Therapy Technician Name Role Phone YOMI RAMESH MD PP [phone] Summary purpose TRANSITION OF CARE AUTO GENERATION Chief Complaint and Reason for Visit Admit Diagnosis 1 CHEST PAIN NOS Problem list No authorized problems tracked for continuity of care are available for this visit. Encounters The following conditions tracked for encounter diagnoses were recorded for this visit: Finding or Diagnosis Status Certainty Chronicity Onset *CHEST PAIN Active Medications Home Medications Medication Directions Started Status Source omeprazole 20 mg capsule,delayed release 20 mg Oral 1 Daily for stomach Current Patient medication list trazodone 50 mg tablet 2 tablet Oral At Bed Time for sleep Current Patient medication list haloperidol 0.5 mg tablet 1 mg Oral 3 Times Daily for antipsychotic Current Patient medication list REVLIMID 25 mg capsule 10 mg Oral See Medication Notes for cancer 1 daily for 21 days on and 7 days off Current Patient medication list Lantus 100 unit/mL Sub-Q SubQ At Bed Time for diabetes pt unsure Current Patient medication list simvastatin 80 mg tablet 1/2 tablet Oral At Bed Time Current Patient medication list Novolin R InnoLet subcutaneous 1 units subQ 4 Times Daily Sliding scale Current Patient medication list metoprolol tartrate 25 mg tablet 0.5 tablet oral 2 Times Daily for BP/heart Current Patient medication list Baby Aspirin 81 mg chewable tablet 1 tablet oral 1 Daily Current Patient medication list Calcium 500 + D 500 mg (1,250 mg)-200 unit tablet 1 tablet oral 2 Times Daily Current Patient recall hydrochlorothiazide 25 mg tablet 1 tablet oral 1 Daily Current Patient medication list potassium chloride ER 20 mEq tablet,extended release 1 tablet oral 1 Daily Current hydrocodone 7.5 mg-acetaminophen 325 mg tablet 2 tablet oral PRN 2 Times A Day Current Patient recall Allergies, adverse reactions, alerts Allergen Category Ingredient [...] diagnostic tests and/or laboratory data RESULTS Chemistry [id number]:35:00 Result Normal Range Units Sodium 137 134-145 mEq/l Potassium L 3.2 3.5-5.1 mEq/l Chloride L 97 98-107 mEq/l CO2 H 29.3 22-28 mEq/l Glucose H 130 70-105 mg/dl BUN 18 7-18 mg/dl Creatinine H 2.11 0.6-1.3 mg/dl Calcium 9.1 8.4-10.2 mg/dl TP - Total Protein 7.9 6.0-8.3 g/dl Albumin L 3.3 3.5-5 g/dl Bilirubin - Total 0.4 0.1-1.0 mg/dl AST 29 10-42 IU/L ALT 42 12-65 IU/L ALP 101 39-107 IU/L Osmolality L 277.5 280-300 mOsm/L Albumin/Globulin Ratio 0.7 0-8 Anion GAP 10.7 8-16 BUN/Creatinine Ratio L 8.5 10-20 Estimated GFR L 39 >=60 mL/min/1.7 Hematology [id number]:35:00 Result Normal Range Units WBC 6.2 4.8-10.8 103/uL RBC L 4.4 4.7-6.1 106/uL HGB 13.3 13.0-18.0 g/dl HCT L 38.3 41.9-52.0 % MCV 87.4 80-94 FL MCH 30.4 27-31 pg MCHC 34.7 33-37 g/dl RDW 13.1 11.5-15.5 % PLT 196 130-400 103/uL MPV H 11.5 7.3-10.4 FL Neutro % 49.3 40-70 % Lymph % 39.6 20-40 % Wheeler % 6.8 0-10.0 % Eos % 4.0 0-7.0 % Baso % 0.3 0-2 % Neutro # 3.1 1.5-7.5 103/uL Lymph # 2.5 0.9-4.0 103/uL Wheeler # 0.4 0-0.8 103/uL Eos # 0.3 0-0.6 103/uL Baso # 0.0 0-0.1 103/uL Cardiac [id number]:25:00 Result Normal Range Units CKMB 0.8 0-3.6 ng/ml Patient samples may contain heterophilic antibodies that could react with immunoassays to give falsely elevated or depressed results. This Dimension assay has been designed to minimize interference from heterophilic antibodies. Nevertheless, complete elimination of this interference from all patient specimens cannot be guaranteed. A test result that is inconsistent with the clinical picture and patient history should be interpreted with caution. Troponin I < 0.04 0.0-0.4 ng/ml Patient samples may contain heterophilic antibodies that could react in immunoassays to give falsely elevated or depressed results. This Dimension assay has been designed to minimize interference from heterophilic antibodies. Nevertheless, complete elimination of this interference from all patient specimens cannot be guaranteed. A test result that is inconsistent with the clinical picture and patient history should be interpreted with caution. [id number]:30:00 Result Normal Range Units CKMB 0.6 0-3.6 ng/ml Patient samples may contain heterophilic antibodies that could react with immunoassays to give falsely elevated or depressed results. This Dimension assay has been designed to minimize interference from heterophilic antibodies. Nevertheless, complete elimination of this interference from all patient specimens cannot be guaranteed. A test result that is inconsistent with the clinical picture and patient history should be interpreted with caution. Troponin I < 0.04 0.0-0.4 ng/ml Patient samples may contain heterophilic antibodies that could react in immunoassays to give falsely elevated or depressed results. This Dimension assay has been designed to minimize interference from heterophilic antibodies. Nevertheless, complete elimination of this interference from all patient specimens cannot be guaranteed. A test result that is inconsistent with the clinical picture and patient history should be interpreted with caution. [id number]:35:00 Result Normal Range Units CK 49 39-308 IU/L CKMB 0.9 0-3.6 ng/ml Patient samples may contain heterophilic antibodies that could react with immunoassays to give falsely elevated or depressed results. This Dimension assay has been designed to minimize interference from heterophilic antibodies. Nevertheless, complete elimination of this interference from all patient specimens cannot be guaranteed. A test result that is inconsistent with the clinical picture and patient history should be interpreted with caution. Troponin I < 0.04 0.0-0.4 ng/ml Patient samples may contain heterophilic antibodies that could react in immunoassays to give falsely elevated or depressed results. This Dimension assay has been designed to minimize interference from heterophilic antibodies. Nevertheless, complete elimination of this interference from all patient specimens cannot be guaranteed. A test result that is inconsistent with the clinical picture and patient history should be interpreted with caution. Radiology Results [id number]:00 Chest XRay - Port - 1 View PACs Image DATE OF EXAM: 2013 RAD 0292-CHEST 1 VIEW PORT : RADIOLOGY REPORT DATE OF SERVICE:12/30/2013 HISTORY: Chest pain. PORTABLE AP CHEST; 1846 HOURS The lungs are clear. Heart size and pulmonary vessels are normal. There are no hilar abnormalities. Central venous catheter is in place with its tip in the superior vena cava. There is no pneumothorax or pleural effusion. No significant change seen when compared with 11/05/2013. IMPRESSION: Negative chest. MD JORDON Valles/gc12/31/2013 06:32:00 / 12/31/2013 08:36:27 cc:Dr. Yomi Ramesh This document has been electronically Signed by: On: DATE OF EXAM: 2013 RAD 0292-CHEST 1 VIEW PORT : RADIOLOGY REPORT DATE OF SERVICE:12/30/2013 HISTORY: Chest pain. PORTABLE AP CHEST; 1846 HOURS The lungs are clear. Heart size and pulmonary vessels are normal. There are no hilar abnormalities. Central venous catheter is in place with its tip in the superior vena cava. There is no pneumothorax or pleural effusion. No significant change seen when compared with 11/05/2013. IMPRESSION: Negative chest. MD JORDON Valles/gc12/31/2013 06:32:00 / 12/31/2013 08:36:27 cc:Dr. Yomi Ramesh This document has been electronically Signed by: On: DATE OF EXAM: 2013 RAD 0292-CHEST 1 VIEW PORT : RADIOLOGY REPORT DATE OF SERVICE:12/30/2013 HISTORY: Chest pain. PORTABLE AP CHEST; 1846 HOURS The lungs are clear. Heart size and pulmonary vessels are normal. There are no hilar abnormalities. Central venous catheter is in place with its tip in the superior vena cava. There is no pneumothorax or pleural effusion. No significant change seen when compared with 11/05/2013. IMPRESSION: Negative chest. MD JORDON Valles/gc12/31/2013 06:32:00 / 12/31/2013 08:36:27 cc:Dr. Yomi Ramesh This document has been electronically Signed by: DENISSE CHESTER On: [id number] CHEST PAIN RULE OUT [place] Result Amended on 2014-01-02 at 08:17:32. Previous status was MS. CHEST PAIN RULE OUT [place] Result Amended on 2014-01-02 at 09:37:31. Previous status was MS. CHEST PAIN RULE OUT [place] [id number]:35:00 Result Normal Range Units MPV H 11.5 7.3-10.4 FL History of procedures Procedure Code Code Type Description Date Performed Performing Physician 11130 CPT-4 COMPLETE CBC W/AUTO DIFF WBC 12-30-2013 [facility] 78129 CPT-4 COMPREHEN METABOLIC PANEL 12-30-2013 [facility] 44769 CPT-4 ASSAY OF CK (CPK) 12-30-2013 [facility] 32271 CPT-4 ASSAY OF TROPONIN, QUANT 12-30-2013 [facility] 32636 CPT-4 CREATINE, MB FRACTION 12-30-2013 [facility] 75347 CPT-4 MYCOPLASMA ANTIBODY 12-30-2013 [facility] 85571 CPT-4 CHEST X-RAY 12-30-2013 [facility] 68935 CPT-4 DRAW BLOOD OFF VENOUS DEVICE 12-30-2013 [facility] A9270 CPT-4 NON-COVERED ITEM OR SERVICE 12-30-2013 [facility] J3010 CPT-4 FENTANYL CITRATE INJECITON 12-30-2013 [facility] J7030 CPT-4 NORMAL SALINE SOLUTION INFUS 12-30-2013 [facility] J2405 CPT-4 ONDANSETRON HCL INJECTION 12-30-2013 [facility] J2270 CPT-4 MORPHINE SULFATE INJECTION 12-30-2013 [facility] 29527 CPT-4 CREATINE, MB FRACTION 12-31-2013 [facility] 26678 CPT-4 CREATINE, MB FRACTION 12-31-2013 [facility] 03089 CPT-4 ASSAY OF TROPONIN, QUANT 12-31-2013 [facility] 39889 CPT-4 ASSAY OF TROPONIN, QUANT 12-31-2013 [facility] 02552 CPT-4 DRAW BLOOD OFF VENOUS DEVICE 12-31-2013 [facility] A9270 CPT-4 NON-COVERED ITEM OR SERVICE 12-30-2013 KEAG[facility] ZENON A9270 CPT-4 NON-COVERED ITEM OR SERVICE 12-30-2013 KE[facility] ZENON A9270 CPT-4 NON-COVERED ITEM OR SERVICE 12-30-2013 KEAGAN ZENON A9270 CPT-4 NON-COVERED ITEM OR SERVICE 12-30-2013 KEAGAN ZENON A9270 CPT-4 NON-COVERED ITEM OR SERVICE 12-30-2013 KEAGAN ZENON A9270 CPT-4 NON-COVERED ITEM OR SERVICE 12-30-2013 KEAGAN ZENON J2270 CPT-4 MORPHINE SULFATE INJECTION 12-30-2013 AL[facility] STERLING A9270 CPT-4 NON-COVERED ITEM OR SERVICE 12-31-2013 [facility] STER[facility] J7030 CPT-4 NORMAL SALINE SOLUTION INFUS 12-31-2013 [facility] J1642 CPT-4 INJ HEPARIN SODIUM PER 10 U 12-31-2013 [facility] 56205 CPT-4 ROUTINE VENIPUNCTURE 12-31-2013 [facility] 37387 CPT-4 EMERGENCY DEPT VISIT 12-30-2013 [facility] 41402 CPT-4 EMERGENCY DEPT VISIT 12-30-2013 [facility] 21342 CPT-4 THER/PROPH/DIAG INJ, IV PUSH 12-30-2013 [facility] 98696 CPT-4 TX/PRO/DX INJ NEW DRUG ADDON 12-30-2013 [facility] G0378 CPT-4 HOSPITAL OBSERVATION PER HR 12-30-2013 AL[facility]IN STERLING G0378 CPT-4 HOSPITAL OBSERVATION PER HR 12-30-2013 [facility] STERL[facility] G0378 CPT-4 HOSPITAL OBSERVATION PER HR 12-31-2013 [facility] 67654 CPT-4 TX/PRO/DX INJ NEW DRUG TOUCH UP WORKER 12-30-2013 AL[facility] STERLING Functional status Functional Status Finding Observation Time Hearing Prob Loc none :37 Vision Problems yes :37 Vision Correct Dev glasses :37 Ambulation Asst Dev none :37 Range of Motion full :55 Muscle Strength RUE 5 ROM full resist :55 Muscle Strength RLE 5 ROM full resist :55 Muscle Strength LUE 5 ROM full resist :55 Muscle Strength LLE 5 ROM full resist :55 Transfers independent :55 Ambulation in room :55 Balance steady :55 Bathing Assistance none :37 Eating Assistance none :37 Dressing Assistance none :37 Toileting Assistance none :37 Transfer Assistance none :37 Decline Slf Care/Mob no :37 Phys Cond Stable yes :37 Cognitive Status Finding Observation Time Oriented To Date 5 Yes :[address] 5 Yes :37 Name 3 Objects 3 Yes :37 Name Object in Rm 2 Yes :37 Recall 3 Objects 3 Yes :37 Repeats a Phrase 1 Yes :37 Follows Verbal Direc 3 Yes :37 Follows Written Dire 1 Yes :37 Write a Sentance 1 Yes :37 Draw an Object 1 Yes :37 Mini Mental Total 25 points :37 Learning Ability comprehends well :06 Neurological no :06 Psychological no :06 Physical no :06 Hearing no :06 Change Management Administrator Needed no :06 Sign Language no :06 Emotional no :06 Vision yes :06 Laguage no :06 Financial no :06 Vital signs Type Value Date Respiration Rate 16breaths per minute : Pulse 67beats per minute :20 Oxygen Saturation 97% :20 BP Systolic 102mmHg :20 BP Diastolic 55mmHg :20 Temperature 97.7F :20 Height 66inches :30 Weight 166LB :30 Social history Type Value Smoking Status FORMER SMOKER Treatment Plan No treatment plan text is available for this visit. Hospital discharge instructions Discharge Date/Time 12/31/13 0925 Accompanied By self Dismissal Condition good Disposition on DC home Valuables yes Valuable Type cell phone Valuables Returned T patient DC Inst/Educ Give yes Exit Care Educ Given yes DC Med Rec Rev yes Vaccines Ord Given Comment: pt. refused states already has scheduled to have flu shot along with other . This result is a modification to a previously-entered result. It was modified on 12/31/13 at 09:46 by TJ. Diet Explained yes Follow up appt already scheduled Follow Up Appt D/T 5-7 days eleanor
--- OUTSIDE RECORDS SUMMARY | 2017-10-06 13:33 | XMS REPORT ---
Author Author [facility] Medical Staff Organization [facility] Address [address] [place] [address] Phone [phone] Care Team Providers Care Binding Cutter Name Role Phone YOMI RAMESH MD PP [phone] Summary purpose TRANSITION OF CARE AUTO GENERATION [...] diagnostic tests and/or laboratory data RESULTS Chemistry [id number]:00:00 Result Normal Range Units Sodium 134 134-145 [...] % Lymph % H 48.6 20-40 % [place] % 4.4 0-10.0 % Eos % 4.0 0-7.0 % Baso % 0.4 0-2 % Neutro # 2.2 1.5-7.5 103/uL Lymph # 2.6 0.9-4.0 103/uL [place] # 0.2 0-0.8 103/uL Eos # 0.2 0-0.6 103/uL Baso # 0.0 0-0.1 103/uL Radiology Results :00:00 Result Normal Range Units MPV H 11.1 7.3-10.4 [place] Reference Lab ([facility]) :00:00 Result Normal Range Units Free [place] H 55.0 3.3-19.4 mg/L Free Lambda H 40.1 5.7-26.3 mg/L Free [place] Lambda Ratio 1.37 0.26-1.65 Free kappa/lambda ratio in serum of [...] therapy of these disorders. TEST PERFORMED AT: [facility] [address] [place] [address] QUIANA ISSA DO,MPH History of procedures Procedure Code Code Type Description Date Performed Performing Physician 71628 CPT-4 ASSAY, NEPHELOMETRY NOT SPEC 12-29-2013 HENRIK RIGGINS 98872 CPT-4 COMPLETE CBC W/AUTO DIFF WBC 12-29-2013 HENRIK RIGGINS 01127 CPT-4 COMPREHEN METABOLIC PANEL 12-29-2013 HENRIK RIGGINS 64180 CPT-4 LACTATE (LD) (LDH) ENZYME 12-29-2013 HENRIK RIGGINS 77958 CPT-4 ASSAY OF MAGNESIUM 12-29-2013 HENRIK RIGGINS 32899 CPT-4 ASSAY OF PHOSPHORUS 12-29-2013 HENRIK RIGGINS 04034 CPT-4 DRAW BLOOD OFF VENOUS DEVICE 12-29-2013 HENRIK RIGGINS J1642 CPT-4 INJ HEPARIN SODIUM PER 10 U 12-29-2013 HENRIK RIGGINS Functional status No functional or [...]
--- OUTSIDE RECORDS SUMMARY | 2017-10-06 13:33 | XMS REPORT | Clinical Summary ---
Author Author Admin, IWONA Tinsley [facility] Address Unknown Phone Unavailable Allergies, Adverse Reactions, Alerts Allergy Name Reaction Description Start Date Severity Status Provider CODEINE Critical Active Maliheh Ziglari BOOK SEWER ERYTHROMYCIN Critical Active Maliheh Ziglari BOOK SEWER DARVOCET Critical Active Maliheh Ziglari BOOK SEWER LEVAQUIN Critical Active Maliheh Ziglari BOOK SEWER Conditions or Problems Problem Name Problem [...] type II, uncontrolled 250.02 Active Maliheh Ziglari BOOK SEWER Diabetes mellitus without mention of complication, type II or unspecified type, uncontrolled Medication List Medication Instructions Start Date Stop Date Generic Name NDC Status Provider Patient Instruction LANTUS SOLOSTAR 100 UNIT/ML SOLN 40 units at 4-5pm daily INSULIN GLARGINE 22960520911 Active Maliheh Ziglari BOOK SEWER Active NOVOLIN R RELION 100 UNIT/ML INJ SOLN 30- 40 units each meal sliding scale INSULIN REGULAR HUMAN 58342649716 Active Moy PARISH Active LISINOPRIL 5 MG TABS 1 daily LISINOPRIL 78831035044 Active Prosper Arenas MD Active CALCIUM 500/D 500-200 MG-UNIT TABS one tablet daily CALCIUM CARBONATE- VITAMIN D 43929464466 Active Prosper Arenas MD Active REVLIMID 25 MG CAPS one capsule daily for 21 days then off for 7 days LENALIDOMIDE 36078868426 Active Prosper Arenas MD Active HYDROCHLOROTHIAZIDE 25 MG TABS 1 tablet by mouth daily HYDROCHLOROTHIAZIDE 87577970620 Active Prosper Arenas MD Active HYDROCODONE-ACETAMINOPHEN 5-500 MG TABS 1-2 FOUR TIMES A DAY, PRN HYDROCODONE-ACETAMINOPHEN 33362713902 No Longer Active Prosper Arenas MD Active TRAZODONE HCL 50 MG TAB three tablets at bed time TRAZODONE HCL 35358539099 Active Prosper Arenas MD Active SIMVASTATIN 80 MG TABS 1/2 tablet daily SIMVASTATIN 36338801362 Active Prsoper Arenas MD Active METOPROLOL TARTRATE 25 MG TABS 1/2 tablet twice a day METOPROLOL TARTRATE 93725176466 Active Prosper Arenas MD Active HALOPERIDOL 0.5 MG TABS one tablet three times a day HALOPERIDOL 70449022134 Active Prosper Arenas MD Active ASPIRIN 81 MG TAB 1 tablet by mouth daily ASPIRIN 37983516566 Active Prosper Arenas MD Active OMEPRAZOLE 20 MG CPDR 1 qd OMEPRAZOLE 22339947501 Active DARCIE Miller Active DOXYCYCLINE HYCLATE 100 MG CAPS take one capsule by mouth twice daily for ten days DOXYCYCLINE HYCLATE 28091068853 No Longer Active Mekhi Dukes MD Active DOXYCYCLINE HYCLATE 100 MG CAPS take one capsule by mouth twice daily for ten days DOXYCYCLINE HYCLATE 100 MG CAPS 299019 DOXYCYCLINE HYCLATE Inactive HYDROCODONE-ACETAMINOPHEN 5-500 MG TABS [...] 162 [lb_av] Weight Measured blood pressure, diastolic 68 [...] Description Chart Maintenance: Outside labs entered on [employer] - Chemistry sodium, serum 134 mmol/L potassium, serum 3.4 mmol/L blood glucose 268 mg/dL creatinine, serum 1.87 mg/dL aspartate aminotransferase (SGOT), serum 26 U/L alanine aminotransferase (SGPT), serum 44 U/L alkaline phosphatase, serum 110 U/L Chart Maintenance: Outside labs entered on [employer] [facility] - Hematology leukocyte count, blood 5.3 10*3/mm3 hemoglobin, blood 14.0 g/dL platelet count 240 10*3/mm3 Lab Report: Basic Metabolic Panel - Chemistry sodium, serum 137 mmol/L 074-841 8093/08/22 potassium, serum 4.0 mmol/L 3.5-5.2 chloride, serum [...] Ag - Chemistry sodium, serum 131 mmol/L 998-489 9168/10/13 potassium, serum 3.6 mmol/L 3.5-5.2 chloride, serum [...] 0.60 mg/dL 0.00-1.00 cholesterol, serum 98 mg/dL 963-286 1036/10/13 triglyceride, serum, fasting 125 mg/dL 30-200 HDL [...] mg/dL Encounters Code Encounter Date Provider Facility CPT-39087 Level 5 Est. Patient 14:33:32 CDT Moy PARISH [facility] CPT-41985 Level 3 Est. Patient 12:25:35 CDT Prosper Arenas MD [facility] Procedures Code Procedure Name Date Entry Date Standard Description CPT-G0008 Administration of Influenza Virus Vaccine 13:59:20 CDT CPT-48865 Fluzone High-Dose Intramuscular Suspension 13:59:20 CDT CPT-18362 Venipuncture Draw Fee 09:56:19 CDT CPT-OV Office Visit 15:46:10 CDT
--- OUTSIDE RECORDS SUMMARY | 2017-10-06 13:33 | XMS REPORT | Clinical Summary ---
Author Author Admin, IWONA Organization [facility] Address Unknown Phone Unavailable Allergies, [...] one tablet daily CALCIUM CARBONATE- VITAMIN D 96609992984 Active Prosper Arenas MD Active REVLIMID 25 MG CAPS one capsule daily for 21 days then off for 7 days LENALIDOMIDE 96302842708 Active Prosper Arenas MD Active HYDROCHLOROTHIAZIDE 25 MG TABS 1 tablet by mouth daily HYDROCHLOROTHIAZIDE 60642772751 Active Prosper Arenas MD Active HYDROCODONE-ACETAMINOPHEN 5-500 MG TABS 1-2 FOUR TIMES A DAY, PRN HYDROCODONE-ACETAMINOPHEN 10701050174 No Longer Active Prosper Arenas MD Active TRAZODONE HCL 50 MG TAB three tablets at bed time TRAZODONE HCL 18306704664 Active Prosper Arenas MD Active SIMVASTATIN 80 MG TABS 1/2 tablet daily SIMVASTATIN 40385582758 Active Prosper Arenas MD Active METOPROLOL TARTRATE 25 MG TABS 1/2 tablet twice a day METOPROLOL TARTRATE 42428009873 Active Prosper Arenas MD Active NOVOLIN R RELION 100 UNIT/ML INJ SOLN one unit four times a day, sliding scale INSULIN REGULAR HUMAN 26907335670 Active Prosper Arenas MD Active LANTUS SOLOSTAR 100 UNIT/ML SOLN 40 units at bed time INSULIN GLARGINE 34571317733 Active Prosper Arenas MD Active HALOPERIDOL 0.5 MG TABS one tablet three times a day HALOPERIDOL 95275334702 Active Prosper Arenas MD Active ASPIRIN 81 MG TAB 1 tablet by mouth daily ASPIRIN 81198622535 Active Prosper Arenas MD Active OMEPRAZOLE 20 MG CPDR 1 qd OMEPRAZOLE 26921965499 Active DARCIE Miller Active DOXYCYCLINE HYCLATE 100 MG CAPS take one capsule by mouth twice daily for ten days DOXYCYCLINE HYCLATE 24250129282 No Longer Active Mekhi Dukes MD Active DOXYCYCLINE HYCLATE 100 MG CAPS take one capsule by mouth twice daily for ten days DOXYCYCLINE HYCLATE 100 MG CAPS 639530 DOXYCYCLINE HYCLATE Inactive HYDROCODONE-ACETAMINOPHEN 5-500 MG TABS [...] Panel - Chemistry sodium, serum 137 mmol/L 302-113 6007/08/22 potassium, serum 4.0 mmol/L 3.5-5.2 chloride, serum [...] mg/dL Encounters Code Encounter Date Provider Facility CPT-97735 Level 3 Est. Patient 12:25:35 CDT Prosper Arenas MD [facility] Procedures Code Procedure Name Date Entry Date Standard Description CPT-OV Office Visit 15:46:10 CDT
--- OUTSIDE RECORDS SUMMARY | 2017-10-06 13:34 | XMS REPORT | Clinical Summary ---
Author Author Admin, IWONA Organization [facility] Address Unknown Phone Unavailable Allergies, [...] Instructions Start Date Stop Date Generic Name [facility] Status Provider Patient Instruction CALCIUM 500/D 500-200 MG-UNIT TABS one tablet daily CALCIUM CARBONATE- VITAMIN D 75533434107 Active Prosper Arenas MD Active REVLIMID 25 MG CAPS one capsule daily for 21 days then off for 7 days LENALIDOMIDE 43010156649 Active Prosper Arenas MD Active HYDROCHLOROTHIAZIDE 25 MG TABS 1 tablet by mouth daily HYDROCHLOROTHIAZIDE 38318657631 Active Prosper Arenas MD Active HYDROCODONE-ACETAMINOPHEN 5-500 MG TABS 1-2 FOUR TIMES A DAY, PRN HYDROCODONE-ACETAMINOPHEN 43825772935 No Longer Active Prosper Arenas MD Active TRAZODONE HCL 50 MG TAB three tablets at bed time TRAZODONE HCL 44898671416 Active Prosper Arenas MD Active SIMVASTATIN 80 MG TABS 1/2 tablet daily SIMVASTATIN 13095565666 Active Prosper Arenas MD Active METOPROLOL TARTRATE 25 MG TABS 1/2 tablet twice a day METOPROLOL TARTRATE 11924513493 Active Prosper Arenas MD Active NOVOLIN R RELION 100 UNIT/ML INJ SOLN one unit four times a day, sliding scale INSULIN REGULAR HUMAN 02078843857 Active Prosper Arenas MD Active LANTUS SOLOSTAR 100 UNIT/ML SOLN 40 units at bed time INSULIN GLARGINE 17200980470 Active Prosper Arenas MD Active HALOPERIDOL 0.5 MG TABS one tablet three times a day HALOPERIDOL 54127034452 Active Prosper Arenas MD Active ASPIRIN 81 MG TAB 1 tablet by mouth daily ASPIRIN 07725369166 Active Prosper Arenas MD Active OMEPRAZOLE 20 MG CPDR 1 qd OMEPRAZOLE 51472440100 Active DARCIE Miller Active DOXYCYCLINE HYCLATE 100 MG CAPS take one capsule by mouth twice daily for ten days DOXYCYCLINE HYCLATE 92805148752 No Longer Active Mekhi Dukes MD Active DOXYCYCLINE HYCLATE 100 MG CAPS take one capsule by mouth twice daily for ten days DOXYCYCLINE HYCLATE 100 MG CAPS 205414 DOXYCYCLINE HYCLATE Inactive HYDROCODONE-ACETAMINOPHEN 5-500 MG TABS 1-2 FOUR TIMES A DAY, PRN HYDROCODONE-ACETAMINOPHEN 5-500 MG TABS HYDROCODONE- ACETAMINOPHEN Inactive Vital Signs Date Name Value Unit Range Description blood pressure, diastolic - 8462-4 68 mm[Hg] [...] Panel - Chemistry sodium, serum 137 mmol/L 531-344 1489/08/22 potassium, serum 4.0 mmol/L 3.5-5.2 chloride, serum [...] mg/dL Encounters Code Encounter Date Provider Facility CPT-58801 Level 3 Est. Patient 12:25:35 CDT Prosper Arenas MD [facility] Procedures Code Procedure Name Date Entry Date Standard Description CPT-OV Office Visit 15:46:10 CDT
--- OUTSIDE RECORDS SUMMARY | 2017-10-06 13:34 | XMS REPORT | Clinical Summary ---
Author Author Admin, IWONA Organization [facility] Address Unknown Phone Unavailable Allergies, Adverse Reactions, [...] Start Date Stop Date Generic Name [facility] Status Provider Patient Instruction CALCIUM 500/D 500-200 MG-UNIT TABS one tablet daily CALCIUM CARBONATE- VITAMIN D 34308070001 Active Prosper Arenas MD Active REVLIMID 25 MG CAPS one capsule daily for 21 days then off for 7 days LENALIDOMIDE 13898887376 Active Prosper Arenas MD Active HYDROCHLOROTHIAZIDE 25 MG TABS 1 tablet by mouth daily HYDROCHLOROTHIAZIDE 87587082262 Active Prosper Arenas MD Active HYDROCODONE-ACETAMINOPHEN 5-500 MG TABS 1-2 FOUR TIMES A DAY, PRN HYDROCODONE-ACETAMINOPHEN 14682903338 No Longer Active Prosper Arenas MD Active TRAZODONE HCL 50 MG TAB three tablets at bed time TRAZODONE HCL 74537427530 Active Prosper Arenas MD Active SIMVASTATIN 80 MG TABS 1/2 tablet daily SIMVASTATIN 23222775579 Active Prosper Arenas MD Active METOPROLOL TARTRATE 25 MG TABS 1/2 tablet twice a day METOPROLOL TARTRATE 05755665992 Active Prosper Arenas MD Active NOVOLIN R RELION 100 UNIT/ML INJ SOLN one unit four times a day, sliding scale INSULIN REGULAR HUMAN 38749265310 Active Prosper Arenas MD Active LANTUS SOLOSTAR 100 UNIT/ML SOLN 40 units at bed time INSULIN GLARGINE 70348913036 Active Prosper Arenas MD Active HALOPERIDOL 0.5 MG TABS one tablet three times a day HALOPERIDOL 63041645804 Active Prosper Arenas MD Active ASPIRIN 81 MG TAB 1 tablet by mouth daily ASPIRIN 56479867041 Active Prosper Arenas MD Active OMEPRAZOLE 20 MG CPDR 1 qd OMEPRAZOLE 09905506638 Active DARCIE Miller Active DOXYCYCLINE HYCLATE 100 MG CAPS take one capsule by mouth twice daily for ten days DOXYCYCLINE HYCLATE 09662947605 No Longer Active Mekhi Dukes MD Active DOXYCYCLINE HYCLATE 100 MG CAPS take one capsule by mouth twice daily for ten days DOXYCYCLINE HYCLATE 100 MG CAPS 593024 DOXYCYCLINE HYCLATE Inactive HYDROCODONE-ACETAMINOPHEN 5-500 MG TABS [...] Panel - Chemistry sodium, serum 137 mmol/L 771-473 5064/08/22 potassium, serum 4.0 mmol/L 3.5-5.2 chloride, serum [...] Ag - Chemistry sodium, serum 131 mmol/L 526-816 7866/10/13 potassium, serum 3.6 mmol/L 3.5-5.2 chloride, serum [...] 0.60 mg/dL 0.00-1.00 cholesterol, serum 98 mg/dL 895-031 9333/10/13 triglyceride, serum, fasting 125 mg/dL 30-200 HDL cholesterol, serum 28 mg/dL 32-96 LDL cholesterol, serum 45 mg/dL 0-130 prostate specific antigen 0.30 ng/mL 0.00-4.00 Office Visit: Followup on Abdominal Pain - Chemistry cholesterol, target level 200 mg/dL triglyceride, target level 200 mg/dL HDL cholesterol, serum, target level 35 mg/dL LDL target level 100 mg/dL Encounters Code Encounter Date Provider Facility CPT-47903 Level 3 Est. Patient 12:25:35 CDT Prosper Arenas MD [facility] Procedures Code Procedure Name Date Entry Date Standard Description CPT-G0008 Administration of Influenza Virus Vaccine 13:59:20 CDT CPT-36980 Fluzone High-Dose Intramuscular Suspension 13:59:20 CDT CPT-18106 Venipuncture Draw Fee 09:56:19 CDT CPT-OV Office Visit 15:46:10 CDT
--- OUTSIDE RECORDS SUMMARY | 2017-10-06 13:34 | XMS REPORT | Clinical Summary ---
Author Author Admin, IWONA Tinsley [facility] Address Unknown Phone Unavailable Allergies, Adverse Reactions, Alerts Allergy Name Reaction Description Start Date Severity Status Provider CODEINE Critical Active Maliheh Ziglari FRYER OPERATOR ERYTHROMYCIN Critical Active Maliheh Ziglari FRYER OPERATOR DARVOCET Critical Active Maliheh Ziglari FRYER OPERATOR LEVAQUIN Critical Active Maliheh Ziglari FRYER OPERATOR Conditions or Problems Problem Name Problem [...] type II, uncontrolled 250.02 Active Maliheh Ziglari FRYER OPERATOR Diabetes mellitus without mention of complication, [...] 40 units at 4-5pm daily INSULIN GLARGINE 71473332814 Active Moy Jose DURANTP Active NOVOLIN R RELION 100 UNIT/ML INJ SOLN 30- 40 units each meal sliding scale INSULIN REGULAR HUMAN 53503549532 Active Jose Antonioshoaib Garcia FRYER OPERATOR Active LISINOPRIL 5 MG TABS 1 daily LISINOPRIL 56129181145 Active Prosper Arenas MD Active CALCIUM 500/D 500-200 MG-UNIT TABS one tablet daily CALCIUM CARBONATE- VITAMIN D 68298003980 Active Prosper Arenas MD Active REVLIMID 25 MG CAPS one capsule daily for 21 days then off for 7 days LENALIDOMIDE 49673605895 Active Prosper Arenas MD Active HYDROCHLOROTHIAZIDE 25 MG TABS 1 tablet by mouth daily HYDROCHLOROTHIAZIDE 67544670108 Active Prosper Arenas MD Active HYDROCODONE-ACETAMINOPHEN 5-500 MG TABS 1-2 FOUR TIMES A DAY, PRN HYDROCODONE-ACETAMINOPHEN 28003930636 No Longer Active Prsoper Arenas MD Active TRAZODONE HCL 50 MG TAB three tablets at bed time TRAZODONE HCL 84477138675 Active Prosper Arenas MD Active SIMVASTATIN 80 MG TABS 1/2 tablet daily SIMVASTATIN 92620245603 Active Prosper Arenas MD Active METOPROLOL TARTRATE 25 MG TABS 1/2 tablet twice a day METOPROLOL TARTRATE 36945395158 Active Prosper Arenas MD Active HALOPERIDOL 0.5 MG TABS one tablet three times a day HALOPERIDOL 55218600901 Active Prosper Arenas MD Active ASPIRIN 81 MG TAB 1 tablet by mouth daily ASPIRIN 21287854319 Active Prosper Arenas MD Active OMEPRAZOLE 20 MG CPDR 1 qd OMEPRAZOLE 20496129481 Active DARCIE Miller Active DOXYCYCLINE HYCLATE 100 MG CAPS take one capsule by mouth twice daily for ten days DOXYCYCLINE HYCLATE 47077160855 No Longer Active Mekhi Dukes MD Active [...] Panel - Chemistry sodium, serum 137 mmol/L 541-642 0542/08/22 potassium, serum 4.0 mmol/L 3.5-5.2 chloride, serum [...] Ag - Chemistry sodium, serum 131 mmol/L 168-140 3526/10/13 potassium, serum 3.6 mmol/L 3.5-5.2 chloride, serum [...] 0.60 mg/dL 0.00-1.00 cholesterol, serum 98 mg/dL 122-999 7382/10/13 triglyceride, serum, fasting 125 mg/dL 30-200 HDL [...] mg/dL Encounters Code Encounter Date Provider Facility CPT-11240 Level 5 Est. Patient 14:33:32 CDT Moy PARISH [facility] CPT-64678 Level 3 Est. Patient 12:25:35 CDT Prosper Arenas MD [facility] Procedures Code Procedure Name Date Entry Date Standard Description CPT-TCMM Transitional Care Mgmt-Moderate 13:40:15 CDT CPT-G0008 Administration of Influenza Virus Vaccine 13:59:20 CDT CPT-58752 Fluzone High-Dose Intramuscular Suspension 13:59:20 CDT CPT-03211 Venipuncture Draw Fee 09:56:19 CDT CPT-OV Office Visit 15:46:10 CDT
--- OUTSIDE RECORDS SUMMARY | 2017-10-06 13:35 | XMS REPORT | Clinical Summary ---
Author Author Admin, IWONA Tinsley [facility] Address Unknown Phone Unavailable Allergies, Adverse Reactions, Alerts Allergy Name Reaction Description Start Date Severity Status Provider CODEINE Critical Active Maliheh Ziglari ROOFING MACHINE OPERATOR ERYTHROMYCIN Critical Active Maliheh Ziglari ROOFING MACHINE OPERATOR DARVOCET Critical Active Maliheh Ziglari ROOFING MACHINE OPERATOR LEVAQUIN Critical Active Maliheh Ziglari ROOFING MACHINE OPERATOR Conditions or Problems Problem Name [...] type II, uncontrolled 250.02 Active Maliheh Ziglari ROOFING MACHINE OPERATOR Diabetes mellitus without mention of complication, type II or unspecified type, uncontrolled Chest pain, atypical 786.59 Active Prosper Arenas MD Other chest pain Bronchitis 490 Active Prosper Arenas MD Bronchitis, not specified as acute or chronic Medication List Medication Instructions Start Date Stop Date Generic Name NDC Status Provider Patient Instruction LANTUS SOLOSTAR 100 UNIT/ML SOLN 30 units at 4-5pm daily INSULIN GLARGINE 63742104156 Active Moy DURANTP Active NOVOLOG FLEXPEN 100 UNIT/ML SOPN Take 5units with each meal, add 2u/50 for blood sugars above 150 INSULIN ASPART 65942126029 Active Moy Wallaceglari ROOFING MACHINE OPERATOR Active NOVOLIN R RELION 100 UNIT/ML INJ SOLN 30- 40 units each meal sliding scale INSULIN REGULAR HUMAN 60482069918 No Longer Active Moy Jose PARISH Active LISINOPRIL 5 MG TABS 1 daily LISINOPRIL 17375469621 Active Prosper Arenas MD Active CALCIUM 500/D 500-200 MG-UNIT TABS one tablet daily CALCIUM CARBONATE- VITAMIN D 05096341661 Active Prosper Arenas MD Active REVLIMID 25 MG CAPS one capsule daily for 21 days then off for 7 days LENALIDOMIDE 20441567282 Active Prosper Arenas MD Active HYDROCHLOROTHIAZIDE 25 MG TABS 1 tablet by mouth daily HYDROCHLOROTHIAZIDE 81636561995 Active Prosper Arenas MD Active HYDROCODONE-ACETAMINOPHEN 5-500 MG TABS 1-2 FOUR TIMES A DAY, PRN HYDROCODONE-ACETAMINOPHEN 27986978032 No Longer Active Prosper Arenas MD Active TRAZODONE HCL 50 MG TAB three tablets at bed time TRAZODONE HCL 62473179393 Active Prosper Arenas MD Active SIMVASTATIN 80 MG TABS 1/2 tablet daily SIMVASTATIN 97801741418 Active Prosper Arenas MD Active METOPROLOL TARTRATE 25 MG TABS 1/2 tablet twice a day METOPROLOL TARTRATE 17053746730 Active Prosper Arenas MD Active HALOPERIDOL 0.5 MG TABS one tablet three times a day HALOPERIDOL 16333313511 Active Prosper Arenas MD Active ASPIRIN 81 MG TAB 1 tablet by mouth daily ASPIRIN 27620931882 Active Prosper Arenas MD Active OMEPRAZOLE 20 MG CPDR 1 qd OMEPRAZOLE 00587232947 Active DARCIE Miller Active DOXYCYCLINE HYCLATE 100 MG CAPS take one capsule by mouth twice daily for ten days DOXYCYCLINE HYCLATE 93593594199 No Longer Active Mekhi Dukes MD Active [...] Description Chart Maintenance: Outside labs entered on [employer] - Chemistry sodium, serum 134 mmol/L potassium, serum 3.4 mmol/L blood glucose 268 mg/dL creatinine, serum 1.87 mg/dL aspartate aminotransferase (SGOT), serum 26 U/L alanine aminotransferase (SGPT), serum 44 U/L alkaline phosphatase, serum 110 U/L Chart Maintenance: Outside labs entered on [employer] - Hematology leukocyte count, blood 5.3 10*3/mm3 hemoglobin, blood 14.0 g/dL platelet count 240 10*3/mm3 Lab Report: Basic Metabolic Panel - Chemistry sodium, serum 137 mmol/L 399-525 7736/08/22 potassium, serum 4.0 mmol/L 3.5-5.2 chloride, serum 100 mmol/L 98-107 carbon dioxide, venous blood 27.9 mmol/L 21.0-32.0 blood glucose 109 mg/dL 65-110 calcium, serum 9.0 mg/dL 8.5-10.1 urea nitrogen, blood 15 mg/dL 7-18 creatinine, serum 2.00 mg/dL 0.60-1.30 Lab Report: CBC W/DIFF, Comp. Metabolic Panel - Chemistry sodium, serum 135 mmol/L 687-262 3154/11/26 potassium, serum 4.4 mmol/L 3.5-5.2 chloride, serum [...] % 11.6-14.8 platelet count 172 10^3/MM^3 10*3/mm3 142-424 Lab Report: CBC, HGBA1C, [...] Ag - Chemistry sodium, serum 131 mmol/L 224-776 0117/10/13 potassium, serum 3.6 mmol/L 3.5-5.2 chloride, serum [...] 0.60 mg/dL 0.00-1.00 cholesterol, serum 98 mg/dL 963-433 2660/10/13 triglyceride, serum, fasting 125 mg/dL 30-200 HDL [...] mg/dL Encounters Code Encounter Date Provider Facility CPT-37849 Level 3 Est. Patient 11:41:19 SENIOR WAREHOUSE [employer] [facility] [place]79997 Level 4 Est. Patient 17:07:35 SENIOR WAREHOUSE CLERK [facility] CPT-09622 Level 5 Est. Patient 14:33:32 CDT [facility] CPT-94807 Level 3 Est. Patient 12:25:35 CDT Prosper Arenas MD [facility] Procedures Code Procedure Name Date Entry Date Standard Description CPT-TCMM Transitional Care Mgmt-Moderate 13:40:15 CDT CPT-G0008 Administration of Influenza Virus Vaccine 13:59:20 CDT CPT-13926 Fluzone High-Dose Intramuscular Suspension 13:59:20 CDT CPT-22079 Venipuncture Draw Fee 09:56:19 CDT CPT-OV Office Visit 15:46:10 CDT
--- OUTSIDE RECORDS SUMMARY | 2017-10-06 13:35 | XMS REPORT | Clinical Summary ---
Author Author Admin, IWONA Organization [facility] Address Unknown Phone Unavailable Allergies, Adverse [...] Instructions Start Date Stop Date Generic Name [facility] Status Provider Patient Instruction CALCIUM 500/D 500-200 MG-UNIT TABS one tablet daily CALCIUM CARBONATE- VITAMIN D 38543829843 Active Prosper Arenas MD Active REVLIMID 25 MG CAPS one capsule daily for 21 days then off for 7 days LENALIDOMIDE 13443436510 Active Prosper Arenas MD Active HYDROCHLOROTHIAZIDE 25 MG TABS 1 tablet by mouth daily HYDROCHLOROTHIAZIDE 85281949132 Active Prosper Arenas MD Active HYDROCODONE-ACETAMINOPHEN 5-500 MG TABS 1-2 FOUR TIMES A DAY, PRN HYDROCODONE-ACETAMINOPHEN 66467603593 No Longer Active Prosper Arenas MD Active TRAZODONE HCL 50 MG TAB three tablets at bed time TRAZODONE HCL 40334993012 Active Prosper Arenas MD Active SIMVASTATIN 80 MG TABS 1/2 tablet daily SIMVASTATIN 50814075189 Active Prosper Arenas MD Active METOPROLOL TARTRATE 25 MG TABS 1/2 tablet twice a day METOPROLOL TARTRATE 29719041826 Active Prosper Arenas MD Active NOVOLIN R RELION 100 UNIT/ML INJ SOLN one unit four times a day, sliding scale INSULIN REGULAR HUMAN 51100080969 Active Prosper Arenas MD Active LANTUS SOLOSTAR 100 UNIT/ML SOLN 40 units at bed time INSULIN GLARGINE 47904497586 Active Prosper Arenas MD Active HALOPERIDOL 0.5 MG TABS one tablet three times a day HALOPERIDOL 47328260643 Active Prosper Arenas MD Active ASPIRIN 81 MG TAB 1 tablet by mouth daily ASPIRIN 55685240991 Active Prosper Arenas MD Active OMEPRAZOLE 20 MG CPDR 1 qd OMEPRAZOLE 83486501531 Active DARCIE Miller Active DOXYCYCLINE HYCLATE 100 MG CAPS take one capsule by mouth twice daily for ten days DOXYCYCLINE HYCLATE 62275612532 No Longer Active Mekhi Dukes MD Active DOXYCYCLINE HYCLATE 100 MG CAPS take one capsule by mouth twice daily for ten days DOXYCYCLINE HYCLATE 100 MG CAPS 426785 DOXYCYCLINE HYCLATE Inactive HYDROCODONE-ACETAMINOPHEN 5-500 MG TABS [...] Panel - Chemistry sodium, serum 137 mmol/L 230-217 1661/08/22 potassium, serum 4.0 mmol/L 3.5-5.2 chloride, serum [...] Ag - Chemistry sodium, serum 131 mmol/L 273-437 9595/10/13 potassium, serum 3.6 mmol/L 3.5-5.2 chloride, serum [...] 0.60 mg/dL 0.00-1.00 cholesterol, serum 98 mg/dL 500-725 6570/10/13 triglyceride, serum, fasting 125 mg/dL 30-200 HDL cholesterol, serum 28 mg/dL 32-96 LDL cholesterol, serum 45 mg/dL 0-130 prostate specific antigen 0.30 ng/mL 0.00-4.00 Office Visit: Followup on Abdominal Pain - Chemistry cholesterol, target level 200 mg/dL triglyceride, target level 200 mg/dL HDL cholesterol, serum, target level 35 mg/dL LDL target level 100 mg/dL Encounters Code Encounter Date Provider Facility CPT-39726 Level 3 Est. Patient 12:25:35 CDT Prosper Arenas MD [facility] Procedures Code Procedure Name Date Entry Date Standard Description CPT-G0008 Administration of Influenza Virus Vaccine 13:59:20 CDT CPT-54217 Fluzone High-Dose Intramuscular Suspension 13:59:20 CDT CPT-77588 Venipuncture Draw Fee 09:56:19 CDT CPT-OV Office Visit 15:46:10 CDT
--- OUTSIDE RECORDS SUMMARY | 2017-10-06 13:36 | XMS REPORT | Clinical Summary ---
Author Author Admin, IWONA Tinsley [facility] Address Unknown Phone Unavailable Allergies, Adverse Reactions, Alerts Allergy Name Reaction Description Start Date Severity Status Provider CODEINE Critical Active Maliheh Ziglari SUPERVISOR LATHING ERYTHROMYCIN Critical Active Maliheh Ziglari SUPERVISOR LATHING DARVOCET Critical Active Maliheh Ziglari SUPERVISOR LATHING LEVAQUIN Critical Active Maliheh Ziglari SUPERVISOR LATHING Conditions or Problems Problem Name Problem Code [...] II, uncontrolled 250.02 Active Maliheh Ziglari SUPERVISOR LATHING Diabetes mellitus without mention of complication, type [...] 30 units at 4-5pm daily INSULIN GLARGINE 28629958079 Active Malpapo Ziglari SUPERVISOR LATHING Active NOVOLOG FLEXPEN 100 UNIT/ML SOPN Take 5units with each meal, add 2u/50 for blood sugars above 150 INSULIN ASPART 24724914844 Active Malcarissaeh Ziglari SUPERVISOR LATHING Active NOVOLIN R RELION 100 UNIT/ML INJ SOLN 30- 40 units each meal sliding scale INSULIN REGULAR HUMAN 16729213068 No Longer Active Moy PARISH Active LISINOPRIL 5 MG TABS 1 daily LISINOPRIL 18737025036 Active Prosper Arenas MD Active CALCIUM 500/D 500-200 MG-UNIT TABS one tablet daily CALCIUM CARBONATE- VITAMIN D 73705123973 Active Prosper Arenas MD Active REVLIMID 25 MG CAPS one capsule daily for 21 days then off for 7 days LENALIDOMIDE 85025783145 Active Prosper Arenas MD Active HYDROCHLOROTHIAZIDE 25 MG TABS 1 tablet by mouth daily HYDROCHLOROTHIAZIDE 35785833308 Active Prosper Arenas MD Active HYDROCODONE-ACETAMINOPHEN 5-500 MG TABS 1-2 FOUR TIMES A DAY, PRN HYDROCODONE-ACETAMINOPHEN 81785985744 No Longer Active Prosper Arenas MD Active TRAZODONE HCL 50 MG TAB three tablets at bed time TRAZODONE HCL 90946007821 Active Prosper Arenas MD Active SIMVASTATIN 80 MG TABS 1/2 tablet daily SIMVASTATIN 75389355282 Active Prosper Arenas MD Active METOPROLOL TARTRATE 25 MG TABS 1/2 tablet twice a day METOPROLOL TARTRATE 45403041026 Active Prosper Arenas MD Active HALOPERIDOL 0.5 MG TABS one tablet three times a day HALOPERIDOL 06344557697 Active Prosper Arenas MD Active ASPIRIN 81 MG TAB 1 tablet by mouth daily ASPIRIN 16310893043 Active Prosper Arenas MD Active OMEPRAZOLE 20 MG CPDR 1 qd OMEPRAZOLE 78045868110 Active DARCIE Miller Active DOXYCYCLINE HYCLATE 100 MG CAPS take one capsule by mouth twice daily for ten days DOXYCYCLINE HYCLATE 23175247271 No Longer Active Mekhi Dukes MD Active [...] Panel - Chemistry sodium, serum 137 mmol/L 278-304 8251/08/22 potassium, serum 4.0 mmol/L 3.5-5.2 chloride, serum 100 mmol/L 98-107 carbon dioxide, venous blood 27.9 mmol/L 21.0-32.0 blood glucose 109 mg/dL 65-110 calcium, serum 9.0 mg/dL 8.5-10.1 urea nitrogen, blood 15 mg/dL 7-18 creatinine, serum 2.00 mg/dL 0.60-1.30 Lab Report: CBC W/DIFF, Comp. Metabolic Panel - Chemistry sodium, serum 135 mmol/L 782-013 9211/11/26 potassium, serum 4.4 mmol/L 3.5-5.2 chloride, serum 100 mmol/L 98-107 carbon dioxide, venous blood 30.7 mmol/L 21.0-32.0 blood glucose 251 mg/dL 65-110 urea nitrogen, blood 15 mg/dL 7-18 creatinine, serum 1.60 mg/dL 0.60-1.30 alanine aminotransferase (SGPT), serum 48 U/L 12-78 aspartate aminotransferase (SGOT), serum 30 U/L 15-37 calcium, serum 8.7 mg/dL 8.5-10.1 bilirubin, serum, total 0.30 mg/dL 0.00-1.00 sodium, serum 137 mmol/L 172-816 5230/01/21 potassium, serum 4.1 mmol/L 3.5-5.2 chloride, serum [...] % 11.6-14.8 platelet count 137 10^3/MM^3 10*3/mm3 676-536 5820/11/26 leukocyte count, blood 4.3 10^3/MM^3 10*3/mm3 4.6-10.2 [...] Ag - Chemistry sodium, serum 131 mmol/L 979-604 0563/10/13 potassium, serum 3.6 mmol/L 3.5-5.2 chloride, serum [...] 0.60 mg/dL 0.00-1.00 cholesterol, serum 98 mg/dL 389-089 3428/10/13 triglyceride, serum, fasting 125 mg/dL 30-200 HDL [...] mg/dL Encounters Code Encounter Date Provider Facility CPT-01933 Level 3 Est. Patient 11:41:19 [employer] [facility] CPT-64964 Level 4 Est. Patient 17:07:35 [employer] [facility] CPT-58699 Level 5 Est. Patient 14:33:32 CDT [facility] CPT-92198 Level 3 Est. Patient 12:25:35 CDT Prosper Arenas MD [facility] Procedures Code Procedure Name Date Entry Date Standard Description CPT-TCMM Transitional Care Mgmt-Moderate 13:40:15 CDT CPT-G0008 Administration of Influenza Virus Vaccine 13:59:20 CDT CPT-14512 Fluzone High-Dose Intramuscular Suspension 13:59:20 CDT CPT-75958 Venipuncture Draw Fee 09:56:19 CDT CPT-OV Office Visit 15:46:10 CDT
--- OUTSIDE RECORDS SUMMARY | 2017-10-06 13:36 | XMS REPORT | Clinical Summary ---
Author Author Admin, IWONA Tinsley [facility] Address Unknown Phone Unavailable Allergies, Adverse Reactions, Alerts Allergy Name Reaction Description Start Date Severity Status Provider CODEINE Critical Active Maliheh Ziglari SYRUP FILTERER ERYTHROMYCIN Critical Active Maliheh Ziglari SYRUP FILTERER DARVOCET Critical Active Maliheh Ziglari SYRUP FILTERER LEVAQUIN Critical Active Maliheh Ziglari SYRUP FILTERER Conditions or Problems Problem Name Problem Code Onset Date Status Entry Date Provider Comment Standard Description Annotate Diabetes, Type 2 250.00 Active Mekhi Dukes MD Diabetes mellitus without mention of complication, type II or unspecified type, not stated as uncontrolled Hyperlipidemia 272.4 Active Mekhi Dukes MD Other and unspecified hyperlipidemia Hypertension 401.9 Active Mekhi Dukse MD Unspecified essential hypertension FH Colon Cancer [...] type II, uncontrolled 250.02 Active Maliheh Ziglari SYRUP FILTERER Diabetes mellitus without mention of complication, type II or unspecified type, uncontrolled Chest pain, atypical 786.59 Active Prosper Arenas MD Other chest pain Bronchitis 490 Active Prosper Arenas MD Bronchitis, not specified as acute or chronic Medication List Medication Instructions Start Date Stop Date Generic Name NDC Status Provider Patient Instruction NOVOLOG FLEXPEN 100 UNIT/ML SOPN Take 5units with each meal, add 2u/50 for blood sugars above 150 INSULIN ASPART 85868428253 Active Moy Wallaceglrex SYRUP FILTERER Active NOVOLIN R RELION 100 UNIT/ML INJ SOLN 30- 40 units each meal sliding scale INSULIN REGULAR HUMAN 19685688824 No Longer Active Moy Bradshawrex SYRUP FILTERER Active LANTUS SOLOSTAR 100 UNIT/ML SOLN 40 units at 4-5pm daily INSULIN GLARGINE 45986676301 Active Moy Jose PARISH Active LISINOPRIL 5 MG TABS 1 daily LISINOPRIL 79264261671 Active Prosper Arenas MD Active CALCIUM 500/D 500-200 MG-UNIT TABS one tablet daily CALCIUM CARBONATE- VITAMIN D 58757747600 Active Prosper Arenas MD Active REVLIMID 25 MG CAPS one capsule daily for 21 days then off for 7 days LENALIDOMIDE 05356790480 Active Prosper Arenas MD Active HYDROCHLOROTHIAZIDE 25 MG TABS 1 tablet by mouth daily HYDROCHLOROTHIAZIDE 71621996523 Active Prosper Arenas MD Active HYDROCODONE-ACETAMINOPHEN 5-500 MG TABS 1-2 FOUR TIMES A DAY, PRN HYDROCODONE-ACETAMINOPHEN 48368259464 No Longer Active Prosper Arenas MD Active TRAZODONE HCL 50 MG TAB three tablets at bed time TRAZODONE HCL 34774325661 Active Prosper Arenas MD Active SIMVASTATIN 80 MG TABS 1/2 tablet daily SIMVASTATIN 99759863682 Active Prosper Arenas MD Active METOPROLOL TARTRATE 25 MG TABS 1/2 tablet twice a day METOPROLOL TARTRATE 94287141845 Active Prosper Arenas MD Active HALOPERIDOL 0.5 MG TABS one tablet three times a day HALOPERIDOL 33318644358 Active Prosper Arenas MD Active ASPIRIN 81 MG TAB 1 tablet by mouth daily ASPIRIN 24861088853 Active Prosper Arenas MD Active OMEPRAZOLE 20 MG CPDR 1 qd OMEPRAZOLE 28538010801 Active DARCIE Miller Active DOXYCYCLINE HYCLATE 100 MG CAPS take one capsule by mouth twice daily for ten days DOXYCYCLINE HYCLATE 98314444929 No Longer Active Mekhi Dukes MD Active [...] U/L Chart Maintenance: Outside labs entered on View3heet - Hematology leukocyte count, blood 5.3 10*3/mm3 hemoglobin, blood 14.0 g/dL platelet count 240 10*3/mm3 Lab Report: Basic Metabolic Panel - Chemistry sodium, serum 137 mmol/L 694-589 5453/08/22 potassium, serum 4.0 mmol/L 3.5-5.2 chloride, serum 100 mmol/L 98-107 carbon dioxide, venous blood 27.9 mmol/L 21.0-32.0 blood glucose 109 mg/dL 65-110 calcium, serum 9.0 mg/dL 8.5-10.1 urea nitrogen, blood 15 mg/dL 7-18 creatinine, serum 2.00 mg/dL 0.60-1.30 Lab Report: CBC W/DIFF, Comp. Metabolic Panel - Chemistry sodium, serum 135 mmol/L 193-629 1763/11/26 potassium, serum 4.4 mmol/L 3.5-5.2 chloride, serum [...] Ag - Chemistry sodium, serum 131 mmol/L 997-692 2350/10/13 potassium, serum 3.6 mmol/L 3.5-5.2 chloride, serum [...] 0.60 mg/dL 0.00-1.00 cholesterol, serum 98 mg/dL 671-303 1202/10/13 triglyceride, serum, fasting 125 mg/dL 30-200 HDL [...] mg/dL Encounters Code Encounter Date Provider Facility CPT-84957 Level 4 Est. Patient 17:07:35 [facility] [place]PT-46195 Level 5 Est. Patient 14:33:32 CD[place] [facility] [place]PT-06152 Level 3 Est. Patient 12:25:35 CDT Prosper Arenas MD [facility] Procedures Code Procedure Name Date Entry Date Standard Description CPT-TCMM Transitional Care Mgmt-Moderate 13:40:15 CDT CPT-G0008 Administration of Influenza Virus Vaccine 13:59:20 CDT CPT-64109 Fluzone High-Dose Intramuscular Suspension 13:59:20 CDT CPT-48149 Venipuncture Draw Fee 09:56:19 CDT CPT-OV Office Visit 15:46:10 CDT
--- OUTSIDE RECORDS SUMMARY | 2017-10-06 13:37 | XMS REPORT | Clinical Summary ---
Author Author Admin, IWONA Tinsley [facility] Address Unknown Phone Unavailable Allergies, Adverse Reactions, Alerts Allergy Name Reaction Description Start Date Severity Status Provider CODEINE Critical Active Maliheh Ziglari DIGITAL SALES MANAGER ERYTHROMYCIN Critical Active Maliheh Ziglari DIGITAL SALES MANAGER DARVOCET Critical Active Maliheh Ziglari DIGITAL SALES MANAGER LEVAQUIN Critical Active Maliheh Ziglari DIGITAL SALES MANAGER Conditions or Problems Problem Name Problem [...] type II, uncontrolled 250.02 Active Maliheh Ziglari DIGITAL SALES MANAGER Diabetes mellitus without mention of complication, [...] 40 units at 4-5pm daily INSULIN GLARGINE 11674178608 Active Moy Jose DURANTP Active NOVOLIN R RELION 100 UNIT/ML INJ SOLN 30- 40 units each meal sliding scale INSULIN REGULAR HUMAN 95968691640 Active Jose Antonioshoaib Garcia DIGITAL SALES MANAGER Active LISINOPRIL 5 MG TABS 1 daily LISINOPRIL 68515771668 Active Prosper Arenas MD Active CALCIUM 500/D 500-200 MG-UNIT TABS one tablet daily CALCIUM CARBONATE- VITAMIN D 67572061728 Active Prosper Arenas MD Active REVLIMID 25 MG CAPS one capsule daily for 21 days then off for 7 days LENALIDOMIDE 94459620942 Active Prosper Arenas MD Active HYDROCHLOROTHIAZIDE 25 MG TABS 1 tablet by mouth daily HYDROCHLOROTHIAZIDE 91586686212 Active Prosper Arenas MD Active HYDROCODONE-ACETAMINOPHEN 5-500 MG TABS 1-2 FOUR TIMES A DAY, PRN HYDROCODONE-ACETAMINOPHEN 17195363064 No Longer Active Prosper Arenas MD Active TRAZODONE HCL 50 MG TAB three tablets at bed time TRAZODONE HCL 71628528170 Active Prosper Arenas MD Active SIMVASTATIN 80 MG TABS 1/2 tablet daily SIMVASTATIN 59305607854 Active Prosper Arenas MD Active METOPROLOL TARTRATE 25 MG TABS 1/2 tablet twice a day METOPROLOL TARTRATE 46777993478 Active Prosper Arenas MD Active HALOPERIDOL 0.5 MG TABS one tablet three times a day HALOPERIDOL 14132170974 Active Prosper Arenas MD Active ASPIRIN 81 MG TAB 1 tablet by mouth daily ASPIRIN 38028435208 Active Prosper Arenas MD Active OMEPRAZOLE 20 MG CPDR 1 qd OMEPRAZOLE 21764710766 Active DARCIE Miller Active DOXYCYCLINE HYCLATE 100 MG CAPS take one capsule by mouth twice daily for ten days DOXYCYCLINE HYCLATE 09927854606 No Longer Active Mekhi Dukes MD Active [...] Panel - Chemistry sodium, serum 137 mmol/L 389-315 2152/08/22 potassium, serum 4.0 mmol/L 3.5-5.2 chloride, serum [...] Ag - Chemistry sodium, serum 131 mmol/L 244-478 1527/10/13 potassium, serum 3.6 mmol/L 3.5-5.2 chloride, serum [...] 0.60 mg/dL 0.00-1.00 cholesterol, serum 98 mg/dL 287-077 8985/10/13 triglyceride, serum, fasting 125 mg/dL 30-200 HDL [...] mg/dL Encounters Code Encounter Date Provider Facility CPT-33338 Level 5 Est. Patient 14:33:32 CDT Moy PARISH [facility] CPT-78307 Level 3 Est. Patient 12:25:35 CDT Prosper Arenas MD [facility] Procedures Code Procedure Name Date Entry Date Standard Description CPT-TCMM Transitional Care Mgmt-Moderate 13:40:15 CDT CPT-G0008 Administration of Influenza Virus Vaccine 13:59:20 CDT CPT-93232 Fluzone High-Dose Intramuscular Suspension 13:59:20 CDT CPT-30857 Venipuncture Draw Fee 09:56:19 CDT CPT-OV Office Visit 15:46:10 CDT
--- OUTSIDE RECORDS SUMMARY | 2017-10-06 13:37 | XMS REPORT | Clinical Summary ---
Author Author Admin, IWONA Organization [facility] Address Unknown Phone Unavailable Allergies, Adverse Reactions, [...] essential hypertension FH Colon Cancer V16.0 Active eMkhi Dukes MD Family history of malignant neoplasm [...] Instructions Start Date Stop Date Generic Name [facility] Status Provider Patient Instruction CALCIUM 500/D 500-200 MG-UNIT TABS one tablet daily CALCIUM CARBONATE- VITAMIN D 35062438878 Active Prosper Arenas MD Active REVLIMID 25 MG CAPS one capsule daily for 21 days then off for 7 days LENALIDOMIDE 45861380841 Active Prosper Arenas MD Active HYDROCHLOROTHIAZIDE 25 MG TABS 1 tablet by mouth daily HYDROCHLOROTHIAZIDE 15161377297 Active Prosper Arenas MD Active HYDROCODONE-ACETAMINOPHEN 5-500 MG TABS 1-2 FOUR TIMES A DAY, PRN HYDROCODONE-ACETAMINOPHEN 74397699228 No Longer Active Prosper Arenas MD Active TRAZODONE HCL 50 MG TAB three tablets at bed time TRAZODONE HCL 54965474182 Active Prosper Arenas MD Active SIMVASTATIN 80 MG TABS 1/2 tablet daily SIMVASTATIN 14743040629 Active Prosper Arenas MD Active METOPROLOL TARTRATE 25 MG TABS 1/2 tablet twice a day METOPROLOL TARTRATE 30769905722 Active Prosper Arenas MD Active NOVOLIN R RELION 100 UNIT/ML INJ SOLN one unit four times a day, sliding scale INSULIN REGULAR HUMAN 52689229485 Active Prosper Arenas MD Active LANTUS SOLOSTAR 100 UNIT/ML SOLN 40 units at bed time INSULIN GLARGINE 21457090207 Active Prosper Arenas MD Active HALOPERIDOL 0.5 MG TABS one tablet three times a day HALOPERIDOL 18832349197 Active Prosper Arenas MD Active ASPIRIN 81 MG TAB 1 tablet by mouth daily ASPIRIN 03016927104 Active Prosper Arenas MD Active OMEPRAZOLE 20 MG CPDR 1 qd OMEPRAZOLE 40166993214 Active DARCIE Miller Active DOXYCYCLINE HYCLATE 100 MG CAPS take one capsule by mouth twice daily for ten days DOXYCYCLINE HYCLATE 44633657992 No Longer Active Mekhi Dukes MD Active DOXYCYCLINE HYCLATE 100 MG CAPS take one capsule by mouth twice daily for ten days DOXYCYCLINE HYCLATE 100 MG CAPS 133498 DOXYCYCLINE HYCLATE Inactive HYDROCODONE-ACETAMINOPHEN 5-500 MG TABS [...] Panel - Chemistry sodium, serum 137 mmol/L 696-142 0577/08/22 potassium, serum 4.0 mmol/L 3.5-5.2 chloride, serum [...] MICROALBUMIN - Lab microalbumin, urine 30 0-19 Office Visit: Followup on Abdominal Pain - Chemistry cholesterol, target level 200 mg/dL triglyceride, target level 200 mg/dL HDL cholesterol, serum, target level 35 mg/dL LDL target level 100 mg/dL Encounters Code Encounter Date Provider Facility CPT-09883 Level 3 Est. Patient 12:25:35 CDT Prosper Arenas MD [facility] Procedures Code Procedure Name Date Entry Date Standard Description CPT-G0008 Administration of Influenza Virus Vaccine 13:59:20 CDT CPT-66698 Fluzone High-Dose Intramuscular Suspension 13:59:20 CDT CPT-95362 Venipuncture Draw Fee 09:56:19 CDT CPT-OV Office Visit 15:46:10 CDT
--- OUTSIDE RECORDS SUMMARY | 2017-10-06 13:37 | XMS REPORT | Clinical Summary ---
Author Author Admin, IWONA Organization [facility] Address Unknown Phone Unavailable Allergies, Adverse [...] Date Generic Name [facility] Status Provider Patient Instruction CALCIUM 500/D 500-200 MG-UNIT TABS one tablet daily CALCIUM CARBONATE- VITAMIN D 95729629682 Active Prosper Arenas MD Active REVLIMID 25 MG CAPS one capsule daily for 21 days then off for 7 days LENALIDOMIDE 62851456014 Active Prosper Arenas MD Active HYDROCHLOROTHIAZIDE 25 MG TABS 1 tablet by mouth daily HYDROCHLOROTHIAZIDE 35646010688 Active Prosper Arenas MD Active HYDROCODONE-ACETAMINOPHEN 5-500 MG TABS 1-2 FOUR TIMES A DAY, PRN HYDROCODONE-ACETAMINOPHEN 86867039061 No Longer Active Prosper Arenas MD Active TRAZODONE HCL 50 MG TAB three tablets at bed time TRAZODONE HCL 81784964986 Active Prosper Arenas MD Active SIMVASTATIN 80 MG TABS 1/2 tablet daily SIMVASTATIN 58560191704 Active Prosper Arenas MD Active METOPROLOL TARTRATE 25 MG TABS 1/2 tablet twice a day METOPROLOL TARTRATE 35509255585 Active Prosper Arenas MD Active NOVOLIN R RELION 100 UNIT/ML INJ SOLN one unit four times a day, sliding scale INSULIN REGULAR HUMAN 84926088398 Active Prosper Arenas MD Active LANTUS SOLOSTAR 100 UNIT/ML SOLN 40 units at bed time INSULIN GLARGINE 19082712333 Active Prosper Arenas MD Active HALOPERIDOL 0.5 MG TABS one tablet three times a day HALOPERIDOL 20464999233 Active Prosper Arenas MD Active ASPIRIN 81 MG TAB 1 tablet by mouth daily ASPIRIN 54586059789 Active Prosper Arenas MD Active OMEPRAZOLE 20 MG CPDR 1 qd OMEPRAZOLE 06387977898 Active DARCIE Miller Active DOXYCYCLINE HYCLATE 100 MG CAPS take one capsule by mouth twice daily for ten days DOXYCYCLINE HYCLATE 87576186109 No Longer Active Mekhi Dukes MD Active DOXYCYCLINE HYCLATE 100 MG CAPS take one capsule by mouth twice daily for ten days DOXYCYCLINE HYCLATE 100 MG CAPS 201091 DOXYCYCLINE HYCLATE Inactive HYDROCODONE-ACETAMINOPHEN 5-500 MG TABS [...] Panel - Chemistry sodium, serum 137 mmol/L 943-236 1237/08/22 potassium, serum 4.0 mmol/L 3.5-5.2 chloride, serum [...] mg/dL Encounters Code Encounter Date Provider Facility CPT-23578 Level 3 Est. Patient 12:25:35 CDT Prosper Arenas MD [facility] Procedures Code Procedure Name Date Entry Date Standard Description CPT-OV Office Visit 15:46:10 CDT
--- OUTSIDE RECORDS SUMMARY | 2017-10-06 13:37 | XMS REPORT ---
Author Author [facility] Medical Staff Organization [facility] Address [address] [place] [id number] Phone [phone] Care Team Providers Care Safety Instructor Name Role Phone YOMI RAMESH MD PP [phone] Summary purpose TRANSITION OF CARE AUTO GENERATION Chief Complaint and Reason for Visit Admit Diagnosis 1 CHEST PAIN RULE OUT ND Problem list No authorized problems tracked for [...] diagnostic tests and/or laboratory data RESULTS Chemistry [id number]:35:00 Result Normal Range Units Sodium 137 134-145 [...] Estimated GFR L 39 >=60 mL/min/1.7 Hematology [id number]:35:00 Result Normal Range Units WBC 6.2 4.8-10.8 103/uL RBC L 4.4 4.7-6.1 106/uL HGB 13.3 13.0-18.0 g/dl HCT L 38.3 41.9-52.0 % MCV 87.4 80-94 FL MCH 30.4 27-31 pg MCHC 34.7 33-37 g/dl RDW 13.1 11.5-15.5 % PLT 196 130-400 103/uL MPV H 11.5 7.3-10.4 FL Neutro % 49.3 40-70 % Lymph % 39.6 20-40 % [place] % 6.8 0-10.0 % Eos % 4.0 0-7.0 % Baso % 0.3 0-2 % Neutro # 3.1 1.5-7.5 103/uL Lymph # 2.5 0.9-4.0 103/uL [place] # 0.4 0-0.8 103/uL Eos # 0.3 0-0.6 103/uL Baso # 0.0 0-0.1 103/uL Cardiac [id number]:25:00 Result Normal Range Units CKMB 0.8 0-3.6 [...] patient history should be interpreted with caution. [id number]:30:00 Result Normal Range Units CKMB 0.6 0-3.6 [...] patient history should be interpreted with caution. [id number]:35:00 Result Normal Range Units CK 49 39-308 [...] should be interpreted with caution. Radiology Results :35:00 Result Normal Range Units MPV H 11.5 7.3-10.4 FL History of procedures No procedures [...] 25 points :37 Learning Ability comprehends well : Neurological no :06 Psychological no :06 Physical no :06 Hearing no :06 Print Shop Stenographer Needed no :06 Sign Language no :06 Emotional no :06 Vision yes :06 Laguage no :06 Financial no :06 Vital signs Type Value Date Respiration Rate 16breaths per minute :20 Pulse 67beats per minute :20 Oxygen Saturation [...] TJ. Diet Explained yes Follow up appt call for appointment Follow Up Appt D/T 5-7 days eleanor
--- OUTSIDE RECORDS SUMMARY | 2017-10-06 13:38 | XMS REPORT | Clinical Summary ---
Author Author Admin, IWONA Organization [facility] Address Unknown Phone Unavailable Allergies, [...] Instructions Start Date Stop Date Generic Name [facility] Status Provider Patient Instruction CALCIUM 500/D 500-200 MG-UNIT TABS one tablet daily CALCIUM CARBONATE- VITAMIN D 65395333262 Active Prosper Arenas MD Active REVLIMID 25 MG CAPS one capsule daily for 21 days then off for 7 days LENALIDOMIDE 20554923490 Active Prosper Arenas MD Active HYDROCHLOROTHIAZIDE 25 MG TABS 1 tablet by mouth daily HYDROCHLOROTHIAZIDE 92014909185 Active Prosper Arenas MD Active HYDROCODONE-ACETAMINOPHEN 5-500 MG TABS 1-2 FOUR TIMES A DAY, PRN HYDROCODONE-ACETAMINOPHEN 68471462439 No Longer Active Prosper Arenas MD Active TRAZODONE HCL 50 MG TAB three tablets at bed time TRAZODONE HCL 31173423550 Active Prosper Arenas MD Active SIMVASTATIN 80 MG TABS 1/2 tablet daily SIMVASTATIN 52325391509 Active Prosper Arenas MD Active METOPROLOL TARTRATE 25 MG TABS 1/2 tablet twice a day METOPROLOL TARTRATE 39578598242 Active Prosper Arenas MD Active NOVOLIN R RELION 100 UNIT/ML INJ SOLN one unit four times a day, sliding scale INSULIN REGULAR HUMAN 80426098587 Active Prosper Arenas MD Active LANTUS SOLOSTAR 100 UNIT/ML SOLN 40 units at bed time INSULIN GLARGINE 46829174365 Active Prosper Arenas MD Active HALOPERIDOL 0.5 MG TABS one tablet three times a day HALOPERIDOL 75387192939 Active Prosper Arenas MD Active ASPIRIN 81 MG TAB 1 tablet by mouth daily ASPIRIN 11725393387 Active Prosper Arenas MD Active OMEPRAZOLE 20 MG CPDR 1 qd OMEPRAZOLE 26672641182 Active DARCIE Miller Active DOXYCYCLINE HYCLATE 100 MG CAPS take one capsule by mouth twice daily for ten days DOXYCYCLINE HYCLATE 59248289966 No Longer Active Mekhi Dukes MD Active DOXYCYCLINE HYCLATE 100 MG CAPS take one capsule by mouth twice daily for ten days DOXYCYCLINE HYCLATE 100 MG CAPS 635196 DOXYCYCLINE HYCLATE Inactive HYDROCODONE-ACETAMINOPHEN 5-500 MG TABS [...] Panel - Chemistry sodium, serum 137 mmol/L 298-237 0637/08/22 potassium, serum 4.0 mmol/L 3.5-5.2 chloride, serum [...] Ag - Chemistry sodium, serum 131 mmol/L 009-350 8671/10/13 potassium, serum 3.6 mmol/L 3.5-5.2 chloride, serum [...] 0.60 mg/dL 0.00-1.00 cholesterol, serum 98 mg/dL 720-776 2719/10/13 triglyceride, serum, fasting 125 mg/dL 30-200 HDL cholesterol, serum 28 mg/dL 32-96 LDL cholesterol, serum 45 mg/dL 0-130 prostate specific antigen 0.30 ng/mL 0.00-4.00 Office Visit: Followup on Abdominal Pain - Chemistry cholesterol, target level 200 mg/dL triglyceride, target level 200 mg/dL HDL cholesterol, serum, target level 35 mg/dL LDL target level 100 mg/dL Encounters Code Encounter Date Provider Facility CPT-91542 Level 3 Est. Patient 12:25:35 CDT Prosper Arenas MD [facility] Procedures Code Procedure Name Date Entry Date Standard Description CPT-G0008 Administration of Influenza Virus Vaccine 13:59:20 CDT CPT-19099 Fluzone High-Dose Intramuscular Suspension 13:59:20 CDT CPT-89317 Venipuncture Draw Fee 09:56:19 CDT CPT-OV Office Visit 15:46:10 CDT
--- OUTSIDE RECORDS SUMMARY | 2017-10-06 13:38 | XMS REPORT | Clinical Summary ---
Author Author Admin, IWONA Organization [facility] Address Unknown Phone Unavailable Allergies, Adverse Reactions, Alerts Allergy Name Reaction Description Start Date Severity Status Provider ERYTHROMYCIN Stomach cramps Moderate Active Prosper Arenas MD CODEINE Critical Active Maliheh Ziglari SENIOR SYSTEM OPERATOR DARVOCET Critical Active Maliheh Ziglari SENIOR SYSTEM OPERATOR LEVAQUIN Critical Active Maliheh Ziglari SENIOR SYSTEM OPERATOR Conditions or Problems Problem Name Problem [...] II, uncontrolled 250.02 Active Maliheh Ziglari SENIOR SYSTEM OPERATOR Diabetes mellitus without mention of complication, [...] 1 daily for 4 days 2014 AZITHROMYCIN 45132283281 Active Prosper Arenas MD Active BENZONATATE 200 MG CAPS 1 tab, 2-3 times a day BENZONATATE 61747847808 Active Prosper Arenas MD Active NOVOLOG FLEXPEN 100 UNIT/ML SOPN Take 10 units with each meal, add 2u/50 for blood sugars above 150 INSULIN ASPART 50523818646 Active Moy Wallaceglari SENIOR SYSTEM OPERATOR Active LANTUS SOLOSTAR 100 UNIT/ML SOLN 30 units at 4-5pm daily INSULIN GLARGINE 17204277327 Active Malpapo Wallaceglari SENIOR SYSTEM OPERATOR Active NOVOLIN R RELION 100 UNIT/ML INJ SOLN 30- 40 units each meal sliding scale INSULIN REGULAR HUMAN 36777801609 No Longer Active Moy Wallaceglari SENIOR SYSTEM OPERATOR Active LISINOPRIL 5 MG TABS 1 daily LISINOPRIL 25582665004 Active Prosper Arenas MD Active CALCIUM 500/D 500-200 MG-UNIT TABS one tablet daily CALCIUM CARBONATE- VITAMIN D 99874914070 Active Prosper Arenas MD Active REVLIMID 25 MG CAPS one capsule daily for 21 days then off for 7 days LENALIDOMIDE 40315345187 Active Prosper Arenas MD Active HYDROCHLOROTHIAZIDE 25 MG TABS 1 tablet by mouth daily HYDROCHLOROTHIAZIDE 75647768140 Active Prosper Arenas MD Active HYDROCODONE-ACETAMINOPHEN 5-500 MG TABS 1-2 FOUR TIMES A DAY, PRN HYDROCODONE-ACETAMINOPHEN 37688315478 No Longer Active Prosper Arenas MD Active TRAZODONE HCL 50 MG TAB three tablets at bed time TRAZODONE HCL 47240864789 Active Prosper Arenas MD Active SIMVASTATIN 80 MG TABS 1/2 tablet daily SIMVASTATIN 06214958767 Active Prosper Arenas MD Active METOPROLOL TARTRATE 25 MG TABS 1/2 tablet twice a day METOPROLOL TARTRATE 82329256987 Active Prosper Arenas MD Active HALOPERIDOL 0.5 MG TABS one tablet three times a day HALOPERIDOL 14688177561 Active Prosper Arenas MD Active ASPIRIN 81 MG TAB 1 tablet by mouth daily ASPIRIN 35569573161 Active Prosper Arenas MD Active OMEPRAZOLE 20 MG CPDR 1 qd OMEPRAZOLE 32696298605 Active DARCIE Miller Active DOXYCYCLINE HYCLATE 100 MG CAPS take one capsule by mouth twice daily for ten days DOXYCYCLINE HYCLATE 50933694999 No Longer Active Mekhi Dukes MD Active [...] Panel - Chemistry sodium, serum 137 mmol/L 092-694 5204/08/22 potassium, serum 4.0 mmol/L 3.5-5.2 chloride, serum 100 mmol/L 98-107 carbon dioxide, venous blood 27.9 mmol/L 21.0-32.0 blood glucose 109 mg/dL 65-110 calcium, serum 9.0 mg/dL 8.5-10.1 urea nitrogen, blood 15 mg/dL 7-18 creatinine, serum 2.00 mg/dL 0.60-1.30 Lab Report: Basic Metabolic Panel, HGBA1C - Chemistry sodium, serum 134 mmol/L 759-044 6110/01/27 potassium, serum 4.1 mmol/L 3.5-5.2 chloride, serum 96 mmol/L 98-107 carbon dioxide, venous blood 35.1 mmol/L 21.0-32.0 blood glucose 346 mg/dL 65-110 calcium, serum 8.4 mg/dL 8.5-10.1 urea nitrogen, blood 18 mg/dL 7-18 creatinine, serum 2.00 mg/dL 0.60-1.30 hemoglobin A1C, blood, as % of total hemoglobin 8.4 % 4.3-6.0 Lab Report: CBC W/DIFF, Comp. Metabolic Panel - Chemistry sodium, serum 137 mmol/L 551-662 0913/01/21 potassium, serum 4.1 mmol/L 3.5-5.2 chloride, serum 99 mmol/L 98-107 carbon dioxide, venous blood 30.9 mmol/L 21.0-32.0 blood glucose 303 mg/dL 65-110 urea nitrogen, blood 19 mg/dL 7-18 creatinine, serum 2.00 mg/dL 0.60-1.30 alanine aminotransferase (SGPT), serum 84 U/L 12-78 aspartate aminotransferase (SGOT), serum 41 U/L 15-37 calcium, serum 7.8 mg/dL 8.5-10.1 bilirubin, serum, total 0.50 mg/dL 0.00-1.00 sodium, serum 131 mmol/L 080-616 3194/03/18 potassium, serum 4.4 mmol/L 3.5-5.2 chloride, serum 95 mmol/L 98-107 carbon dioxide, venous blood 19.0 mmol/L 21.0-32.0 blood glucose 297 mg/dL 65-110 urea nitrogen, blood 19 mg/dL 7-18 creatinine, serum 1.70 mg/dL 0.60-1.30 alanine aminotransferase (SGPT), serum 184 U/L 12-78 aspartate aminotransferase (SGOT), serum 177 U/L 15-37 calcium, serum 7.8 mg/dL 8.5-10.1 bilirubin, serum, total 0.50 mg/dL 0.00-1.00 sodium, serum 135 mmol/L 902-033 2514/11/26 potassium, serum 4.4 mmol/L 3.5-5.2 chloride, serum [...] % 11.6-14.8 platelet count 172 10^3/MM^3 10*3/mm3 049-778 1605/01/21 leukocyte count, blood 6.3 10^3/MM^3 10*3/mm3 4.6-10.2 [...] % 11.6-14.8 platelet count 137 10^3/MM^3 10*3/mm3 732-378 4972/03/18 leukocyte count, blood 4.8 10^3/MM^3 10*3/mm3 4.6-10.2 [...] Ag - Chemistry sodium, serum 131 mmol/L 911-426 8388/10/13 potassium, serum 3.6 mmol/L 3.5-5.2 chloride, serum [...] 0.60 mg/dL 0.00-1.00 cholesterol, serum 98 mg/dL 816-951 7941/10/13 triglyceride, serum, fasting 125 mg/dL 30-200 HDL [...] mg/dL Encounters Code Encounter Date Provider Facility CPT-24047 Level 3 Est. Patient 12:00:42 CDT Prosper Arenas MD [facility] CPT-55851 Level 3 Est. Patient 09:57:28 RIVER RAFTING GUIDE [facility] [place] CPT-61822 Level 3 Est. Patient 11:41:19 RIVER RAFTING GUIDE [facility] [place] CPT-76292 Level 4 Est. Patient 17:07:35 RIVER RAFTING GUIDE [facility] [place] CPT-62888 Level 5 Est. Patient 14:33:32 CDT [facility] [place] CPT-95324 Level 3 Est. Patient 12:25:35 CDT Prosper Arenas MD [facility] Procedures Code Procedure Name Date Entry Date Standard Description CPT-TCMM Transitional Care Mgmt-Moderate 13:40:15 CDT CPT-G0008 Administration of Influenza Virus Vaccine 13:59:20 CDT CPT-08542 Fluzone High-Dose Intramuscular Suspension 13:59:20 CDT CPT-97117 Venipuncture Draw Fee 09:56:19 CDT CPT-OV Office Visit 15:46:10 CDT
--- OUTSIDE RECORDS SUMMARY | 2017-10-06 13:39 | XMS REPORT | Clinical Summary ---
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 Maliheh Ziglari GROUND MIXER Diabetes mellitus without mention of complication, type [...] for blood sugars above 150 INSULIN ASPART 95698408184 Active Malcarissaeh Ziglari GROUND MIXER Active LANTUS SOLOSTAR 100 UNIT/ML SOLN 30 units at 4-5pm daily INSULIN GLARGINE 28509614389 Active Maliheh Ziglari GROUND MIXER Active NOVOLIN R RELION 100 UNIT/ML INJ SOLN 30- 40 units each meal sliding scale INSULIN REGULAR HUMAN 80809582132 No Longer Active Moy Garcia GROUND MIXER Active LISINOPRIL 5 MG TABS 1 daily LISINOPRIL 03319062492 Active Prosper Arenas MD Active CALCIUM 500/D 500-200 MG-UNIT TABS one tablet daily CALCIUM CARBONATE- VITAMIN D 70295706183 Active Prosper Arenas MD Active REVLIMID 25 MG CAPS one capsule daily for 21 days then off for 7 days LENALIDOMIDE 02806321844 Active Prosper Arenas MD Active HYDROCHLOROTHIAZIDE 25 MG TABS 1 tablet by mouth daily HYDROCHLOROTHIAZIDE 85086474084 Active Prosper Arenas MD Active HYDROCODONE-ACETAMINOPHEN 5-500 MG TABS 1-2 FOUR TIMES A DAY, PRN HYDROCODONE-ACETAMINOPHEN 96013797874 No Longer Active Prosper Arenas MD Active TRAZODONE HCL 50 MG TAB three tablets at bed time TRAZODONE HCL 34173178098 Active Prosper Arenas MD Active SIMVASTATIN 80 MG TABS 1/2 tablet daily SIMVASTATIN 55666710898 Active Prosper Arenas MD Active METOPROLOL TARTRATE 25 MG TABS 1/2 tablet twice a day METOPROLOL TARTRATE 67272188105 Active Prosper Arenas MD Active HALOPERIDOL 0.5 MG TABS one tablet three times a day HALOPERIDOL 68435267100 Active Prosper Arenas MD Active ASPIRIN 81 MG TAB 1 tablet by mouth daily ASPIRIN 74185481574 Active Prosper Arenas MD Active OMEPRAZOLE 20 MG CPDR 1 qd OMEPRAZOLE 71135285676 Active DARCIE Miller Active DOXYCYCLINE HYCLATE 100 MG CAPS take one capsule by mouth twice daily for ten days DOXYCYCLINE HYCLATE 58375770996 No Longer Active Mekhi Dukes MD Active [...] Panel - Chemistry sodium, serum 137 mmol/L 051-960 7978/08/22 potassium, serum 4.0 mmol/L 3.5-5.2 chloride, serum 100 mmol/L 98-107 carbon dioxide, venous blood 27.9 mmol/L 21.0-32.0 blood glucose 109 mg/dL 65-110 calcium, serum 9.0 mg/dL 8.5-10.1 urea nitrogen, blood 15 mg/dL 7-18 creatinine, serum 2.00 mg/dL 0.60-1.30 Lab Report: Basic Metabolic Panel, HGBA1C - Chemistry sodium, serum 134 mmol/L 308-598 0010/01/27 potassium, serum 4.1 mmol/L 3.5-5.2 chloride, serum 96 mmol/L 98-107 carbon dioxide, venous blood 35.1 mmol/L 21.0-32.0 blood glucose 346 mg/dL 65-110 calcium, serum 8.4 mg/dL 8.5-10.1 urea nitrogen, blood 18 mg/dL 7-18 creatinine, serum 2.00 mg/dL 0.60-1.30 hemoglobin A1C, blood, as % of total hemoglobin 8.4 % 4.3-6.0 Lab Report: CBC W/DIFF, Comp. Metabolic Panel - Chemistry sodium, serum 137 mmol/L 868-404 3323/01/21 potassium, serum 4.1 mmol/L 3.5-5.2 chloride, serum 99 mmol/L 98-107 carbon dioxide, venous blood 30.9 mmol/L 21.0-32.0 blood glucose 303 mg/dL 65-110 urea nitrogen, blood 19 mg/dL 7-18 creatinine, serum 2.00 mg/dL 0.60-1.30 alanine aminotransferase (SGPT), serum 84 U/L 12-78 aspartate aminotransferase (SGOT), serum 41 U/L 15-37 calcium, serum 7.8 mg/dL 8.5-10.1 bilirubin, serum, total 0.50 mg/dL 0.00-1.00 sodium, serum 135 mmol/L 693-816 9631/11/26 potassium, serum 4.4 mmol/L 3.5-5.2 chloride, serum [...] % 11.6-14.8 platelet count 172 10^3/MM^3 10*3/mm3 263-170 4229/01/21 leukocyte count, blood 6.3 10^3/MM^3 10*3/mm3 4.6-10.2 [...] % 11.6-14.8 platelet count 137 10^3/MM^3 10*3/mm3 142-424 Lab Report: CBC, HGBA1C, [...] Ag - Chemistry sodium, serum 131 mmol/L 221-652 9431/10/13 potassium, serum 3.6 mmol/L 3.5-5.2 chloride, serum [...] 0.60 mg/dL 0.00-1.00 cholesterol, serum 98 mg/dL 868-474 3631/10/13 triglyceride, serum, fasting 125 mg/dL 30-200 HDL [...] mg/dL Encounters Code Encounter Date Provider Facility CPT-60542 Level 3 Est. Patient 09:57:28 MACHINE [place]ATE ST[place] [facility] [place]07495 Level 3 Est. Patient 11:41:19 MACHINE [place] [facility] [place]PT-68454 Level 4 Est. Patient 17:07:35 MACHINE [employer]ATE ST[place] [facility] [place]PT-00073 Level 5 Est. Patient 14:33:32 CD[place] [facility] [place]PT-84854 Level 3 Est. Patient 12:25:35 CDT Prosper Arenas MD [facility] Procedures Code Procedure Name Date Entry Date Standard Description CPT-TCMM Transitional Care Mgmt-Moderate 13:40:15 CDT CPT-G0008 Administration of Influenza Virus Vaccine 13:59:20 CDT CPT-97431 Fluzone High-Dose Intramuscular Suspension 13:59:20 CDT CPT-45940 Venipuncture Draw Fee 09:56:19 CDT CPT-OV Office Visit 15:46:10 CDT
--- OUTSIDE RECORDS SUMMARY | 2017-10-06 13:40 | XMS REPORT | Clinical Summary ---
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 Maliheh Ziglari RESIDENT PROGRAM SPECIALIST Diabetes mellitus without mention of complication, [...] for blood sugars above 150 INSULIN ASPART 65712959020 Active Malcarissaeh Ziglari RESIDENT PROGRAM SPECIALIST Active LANTUS SOLOSTAR 100 UNIT/ML SOLN 30 units at 4-5pm daily INSULIN GLARGINE 65609789288 Active Maliheh Ziglari RESIDENT PROGRAM SPECIALIST Active NOVOLIN R RELION 100 UNIT/ML INJ SOLN 30- 40 units each meal sliding scale INSULIN REGULAR HUMAN 24463832510 No Longer Active Moy Garcia RESIDENT PROGRAM SPECIALIST Active LISINOPRIL 5 MG TABS 1 daily LISINOPRIL 86018129293 Active Prosper Arenas MD Active CALCIUM 500/D 500-200 MG-UNIT TABS one tablet daily CALCIUM CARBONATE- VITAMIN D 56869639308 Active Prosper Arenas MD Active REVLIMID 25 MG CAPS one capsule daily for 21 days then off for 7 days LENALIDOMIDE 98000040201 Active Prosper Arenas MD Active HYDROCHLOROTHIAZIDE 25 MG TABS 1 tablet by mouth daily HYDROCHLOROTHIAZIDE 79700823935 Active Prosper Arenas MD Active HYDROCODONE-ACETAMINOPHEN 5-500 MG TABS 1-2 FOUR TIMES A DAY, PRN HYDROCODONE-ACETAMINOPHEN 11510436925 No Longer Active Prosper Arenas MD Active TRAZODONE HCL 50 MG TAB three tablets at bed time TRAZODONE HCL 29146896771 Active Prosper Arenas MD Active SIMVASTATIN 80 MG TABS 1/2 tablet daily SIMVASTATIN 88984089897 Active Prosper Arenas MD Active METOPROLOL TARTRATE 25 MG TABS 1/2 tablet twice a day METOPROLOL TARTRATE 46234798939 Active Prosper Arenas MD Active HALOPERIDOL 0.5 MG TABS one tablet three times a day HALOPERIDOL 46077026665 Active Prosper Arenas MD Active ASPIRIN 81 MG TAB 1 tablet by mouth daily ASPIRIN 43100555919 Active Prosper Arenas MD Active OMEPRAZOLE 20 MG CPDR 1 qd OMEPRAZOLE 31744178700 Active DARCIE Miller Active DOXYCYCLINE HYCLATE 100 MG CAPS take one capsule by mouth twice daily for ten days DOXYCYCLINE HYCLATE 17141542408 No Longer Active Mekhi Dukes MD Active [...] Panel - Chemistry sodium, serum 137 mmol/L 540-738 2463/08/22 potassium, serum 4.0 mmol/L 3.5-5.2 chloride, serum 100 mmol/L 98-107 carbon dioxide, venous blood 27.9 mmol/L 21.0-32.0 blood glucose 109 mg/dL 65-110 calcium, serum 9.0 mg/dL 8.5-10.1 urea nitrogen, blood 15 mg/dL 7-18 creatinine, serum 2.00 mg/dL 0.60-1.30 Lab Report: Basic Metabolic Panel, HGBA1C - Chemistry sodium, serum 134 mmol/L 251-927 3451/01/27 potassium, serum 4.1 mmol/L 3.5-5.2 chloride, serum 96 mmol/L 98-107 carbon dioxide, venous blood 35.1 mmol/L 21.0-32.0 blood glucose 346 mg/dL 65-110 calcium, serum 8.4 mg/dL 8.5-10.1 urea nitrogen, blood 18 mg/dL 7-18 creatinine, serum 2.00 mg/dL 0.60-1.30 hemoglobin A1C, blood, as % of total hemoglobin 8.4 % 4.3-6.0 Lab Report: CBC W/DIFF, Comp. Metabolic Panel - Chemistry sodium, serum 137 mmol/L 932-575 2924/01/21 potassium, serum 4.1 mmol/L 3.5-5.2 chloride, serum 99 mmol/L 98-107 carbon dioxide, venous blood 30.9 mmol/L 21.0-32.0 blood glucose 303 mg/dL 65-110 urea nitrogen, blood 19 mg/dL 7-18 creatinine, serum 2.00 mg/dL 0.60-1.30 alanine aminotransferase (SGPT), serum 84 U/L 12-78 aspartate aminotransferase (SGOT), serum 41 U/L 15-37 calcium, serum 7.8 mg/dL 8.5-10.1 bilirubin, serum, total 0.50 mg/dL 0.00-1.00 sodium, serum 135 mmol/L 860-274 9774/11/26 potassium, serum 4.4 mmol/L 3.5-5.2 chloride, serum [...] % 11.6-14.8 platelet count 172 10^3/MM^3 10*3/mm3 470-985 7385/01/21 leukocyte count, blood 6.3 10^3/MM^3 10*3/mm3 4.6-10.2 [...] Ag - Chemistry sodium, serum 131 mmol/L 826-314 3712/10/13 potassium, serum 3.6 mmol/L 3.5-5.2 chloride, serum [...] 0.60 mg/dL 0.00-1.00 cholesterol, serum 98 mg/dL 829-327 2221/10/13 triglyceride, serum, fasting 125 mg/dL 30-200 HDL [...] mg/dL Encounters Code Encounter Date Provider Facility CPT-16816 Level 3 Est. Patient 09:57:28 SUPERVISOR PROPELLANT CHARGE LOADING [facility] [place] CPT-03331 Level 3 Est. Patient 11:41:19 SUPERVISOR PROPELLANT [employer]GE LOADING [facility] [place] CPT-62735 Level 4 Est. Patient 17:07:35 SUPERVISOR [employer]OPELL[employer]GE LOADING [facility] [place] CPT-67971 Level 5 Est. Patient 14:33:32 CDT [facility] [place] CPT-03801 Level 3 Est. Patient 12:25:35 CDT Prosper Arenas MD [facility] Procedures Code Procedure Name Date Entry Date Standard Description CPT-TCMM Transitional Care Mgmt-Moderate 13:40:15 CDT CPT-G0008 Administration of Influenza Virus Vaccine 13:59:20 CDT CPT-88949 Fluzone High-Dose Intramuscular Suspension 13:59:20 CDT CPT-89856 Venipuncture Draw Fee 09:56:19 CDT CPT-OV Office Visit 15:46:10 CDT
--- OUTSIDE RECORDS SUMMARY | 2017-10-06 13:40 | XMS REPORT | Clinical Summary ---
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 Maliheh Ziglari RATING SPECIALIST Diabetes mellitus without mention of complication, [...] for blood sugars above 150 INSULIN ASPART 58957377011 Active Malcarissaeh Ziglari RATING SPECIALIST Active LANTUS SOLOSTAR 100 UNIT/ML SOLN 30 units at 4-5pm daily INSULIN GLARGINE 67577907127 Active Maliheh Ziglari RATING SPECIALIST Active NOVOLIN R RELION 100 UNIT/ML INJ SOLN 30- 40 units each meal sliding scale INSULIN REGULAR HUMAN 55285157240 No Longer Active Moy Garcia RATING SPECIALIST Active LISINOPRIL 5 MG TABS 1 daily LISINOPRIL 92768768012 Active Prosper Arenas MD Active CALCIUM 500/D 500-200 MG-UNIT TABS one tablet daily CALCIUM CARBONATE- VITAMIN D 03125063254 Active Prosper Arenas MD Active REVLIMID 25 MG CAPS one capsule daily for 21 days then off for 7 days LENALIDOMIDE 84908069293 Active Prosper Arenas MD Active HYDROCHLOROTHIAZIDE 25 MG TABS 1 tablet by mouth daily HYDROCHLOROTHIAZIDE 70633751592 Active Prosper Arenas MD Active HYDROCODONE-ACETAMINOPHEN 5-500 MG TABS 1-2 FOUR TIMES A DAY, PRN HYDROCODONE-ACETAMINOPHEN 48784975364 No Longer Active Prosper Arenas MD Active TRAZODONE HCL 50 MG TAB three tablets at bed time TRAZODONE HCL 74626779580 Active Prosper Arenas MD Active SIMVASTATIN 80 MG TABS 1/2 tablet daily SIMVASTATIN 49957903942 Active Prosper Arenas MD Active METOPROLOL TARTRATE 25 MG TABS 1/2 tablet twice a day METOPROLOL TARTRATE 59499074720 Active Prosper Arenas MD Active HALOPERIDOL 0.5 MG TABS one tablet three times a day HALOPERIDOL 74011363547 Active Prosper Arenas MD Active ASPIRIN 81 MG TAB 1 tablet by mouth daily ASPIRIN 78321429577 Active Prosper Arenas MD Active OMEPRAZOLE 20 MG CPDR 1 qd OMEPRAZOLE 64822316382 Active DARCIE Miller Active DOXYCYCLINE HYCLATE 100 MG CAPS take one capsule by mouth twice daily for ten days DOXYCYCLINE HYCLATE 99941874035 No Longer Active Mekhi Dukes MD Active [...] Panel - Chemistry sodium, serum 137 mmol/L 421-821 9873/08/22 potassium, serum 4.0 mmol/L 3.5-5.2 chloride, serum 100 mmol/L 98-107 carbon dioxide, venous blood 27.9 mmol/L 21.0-32.0 blood glucose 109 mg/dL 65-110 calcium, serum 9.0 mg/dL 8.5-10.1 urea nitrogen, blood 15 mg/dL 7-18 creatinine, serum 2.00 mg/dL 0.60-1.30 Lab Report: CBC W/DIFF, Comp. Metabolic Panel - Chemistry sodium, serum 135 mmol/L 712-980 4287/11/26 potassium, serum 4.4 mmol/L 3.5-5.2 chloride, serum 100 mmol/L 98-107 carbon dioxide, venous blood 30.7 mmol/L 21.0-32.0 blood glucose 251 mg/dL 65-110 urea nitrogen, blood 15 mg/dL 7-18 creatinine, serum 1.60 mg/dL 0.60-1.30 alanine aminotransferase (SGPT), serum 48 U/L 12-78 aspartate aminotransferase (SGOT), serum 30 U/L 15-37 calcium, serum 8.7 mg/dL 8.5-10.1 bilirubin, serum, total 0.30 mg/dL 0.00-1.00 sodium, serum 137 mmol/L 174-744 6487/01/21 potassium, serum 4.1 mmol/L 3.5-5.2 chloride, serum [...] % 11.6-14.8 platelet count 137 10^3/MM^3 10*3/mm3 151-775 6044/11/26 leukocyte count, blood 4.3 10^3/MM^3 10*3/mm3 4.6-10.2 [...] Ag - Chemistry sodium, serum 131 mmol/L 634-900 0977/10/13 potassium, serum 3.6 mmol/L 3.5-5.2 chloride, serum [...] 0.60 mg/dL 0.00-1.00 cholesterol, serum 98 mg/dL 820-044 9900/10/13 triglyceride, serum, fasting 125 mg/dL 30-200 HDL [...] mg/dL Encounters Code Encounter Date Provider Facility CPT-73028 Level 3 Est. Patient 09:57:28 PIPELINE SUPERINTENDENT [facility] [place] CPT-59289 Level 3 Est. Patient 11:41:19 PIPELINE SUPERINTENDENT [facility] [place] CPT-44524 Level 4 Est. Patient 17:07:35 PIPELINE SUPERINTENDENT [facility] [place] CPT-25124 Level 5 Est. Patient 14:33:32 CDT [facility] [place] CPT-59759 Level 3 Est. Patient 12:25:35 CDT Prosper Arenas MD [facility] Procedures Code Procedure Name Date Entry Date Standard Description CPT-TCMM Transitional Care Mgmt-Moderate 13:40:15 CDT CPT-G0008 Administration of Influenza Virus Vaccine 13:59:20 CDT CPT-47470 Fluzone High-Dose Intramuscular Suspension 13:59:20 CDT CPT-94591 Venipuncture Draw Fee 09:56:19 CDT CPT-OV Office Visit 15:46:10 CDT
--- NOTE | 2017-10-06 13:57 | Diagnostic Imaging Report ---
INDICATION: Seizure and fall. TIME OF EXAM: 12:31 p.m. Three views of left ribs were obtained. There appears to be an old fracture deformity involving the anterior aspect of the left 11th rib. No acute fracture is seen. No parenchymal contusion, effusion or pneumothorax is seen. There is a left chest wall port in place. 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 No acute fracture is seen. Dictated by: Dictated on workstation # [id number]
[2017-10-06 14:35] VITALS: BP 151/80
--- NOTE | 2017-10-06 15:10 | History & Physical-Hospitalist ---
History of Present Illness HPI/Chief Complaint Pt is a 67yoAAM known to me from multiple previous admissions who presented to the ER due to a syncopal episode. He was just discharged on 10/04 after a similar episode. He was walking to the bathroom today and "blacked out" for a few seconds and woke up sitting on the toilet staring up with his standing near him talking but he could not understand her. This is his 5th admission in the past month for similar episodes and he is concerned about her ability to continue to care for him at home and has requesting NH placement. He was not wearing his MIRIAN hose at the time of this episode but did have on compression socks. Source: patient, family Exam Limitations: no limitations Date Seen 10/06/17 Time Seen by Provider: 14:45 Attending Physician Phil Del Cid MD PCP Prosper Arenas MD Referring Physician Date of Admission Oct 06, 2017 at 13:40 Home Medications & Allergies Home Medications Reviewed patient Home Medication Reconciliation performed by pharmacy medication reconciliations laser technician and/or nursing. Patients Allergies have been reviewed. Allergies Allergies Coded Allergies codeine (Unverified Allergy, Unknown, 08/25/17) levofloxacin (Unverified Allergy, Unknown, 08/25/17) niacin (Unverified Allergy, Unknown, 08/25/17) Uncoded Allergies DARVOCET ( Allergy, Unknown, 08/25/17) ERYTHROMYCIN ( Allergy, Unknown, 08/25/17) Past Beotvpn-Bmoxrf-Ctefbt Hx Past Med/Social Hx: Reviewed Nursing Past Med/Soc Hx Patient Social History Alcohol Use: Past History Number of Drinks Today: BB Alcohol Beverage of Choice: [place] Recreational Drug Use: No (past history) Drug of Choice: OPIATES Smoking Status: Former Smoker Former Smoker, Quit: Jan 08, 1973 Type Used: Cigarettes 2nd Hand Smoke Exposure: No Recent Foreign Travel: No Contact w/other who traveled: No Recent Hopitalizations: Yes (09/2017) Recent Infectious Disease Expo: No Immunizations Up To Date Date of Pneumonia Vaccine: Jan 09, 2015 Seasonal Allergies Seasonal Allergies: No Past Medical History Surgeries: Abdominal, Cardiac, Coronary Stent, Orthopedic Currently Using CPAP: No Currently Using BIPAP: No Cardiac: Coronary Artery Disease, Heart Attack, High Cholesterol, Hypotension Sexually Transmitted Disease: No HIV/AIDS: No Gastrointestinal: Abdominal Hernia, Gastroesophageal Reflux, Hepatitis Musculoskeletal: Fractures Endocrine: Diabetes, Insulin dep HEENT: Cataract Loss of Vision: Denies Hearing Impairment: Denies Did You Recieve Any Treatments: Yes What Type of Treatment Did You: Chemotherapy History of Blood Disorders: Yes (PANCYTOPENIA ON CHEMO) Adverse Reaction to Blood Negron: No Family History Reviewed Nursing Family Hx Cancer (colon) Review of Systems Constitutional: No chills, No fever; weakness EENTM: No blurred vision, No double vision, No nose congestion, No throat pain Respiratory: No cough, No dyspnea on exertion, No short of breath Cardiovascular: No chest pain, No edema, No palpitations; syncope Gastrointestinal: No abdominal pain, No constipation, No diarrhea, No nausea, No vomiting Genitourinary: No dysuria, No frequency Musculoskeletal: No joint pain, No muscle pain Skin: No lesions, No rash Psychiatric/Neurological: Denies Headache, Denies Numbness, Denies Tingling Physical Exam Physical Exam Vital Signs Vital Signs - First Documented 10/06/17 10/06/17 11:40 14:30 Temp 97.7 Pulse 87 Resp 15 B/P (MAP) 97/63 (74) Pulse Ox 100 O2 Delivery Room Air Capillary Refill : Less Than 3 Seconds Height, Weight, BMI Height: 5', 5.00" Weight: 150lbs 2.0oz, [id number] Method:Stated ,27.1BMI General Appearance: No Apparent Distress, WD/WN HEENT: PERRL/EOMI, Moist Mucous Membranes Neck: Non Tender, Supple Respiratory: Lungs Clear, No Respiratory Distress Cardiovascular: Regular Rate, Rhythm, No Murmur Gastrointestinal: Normal Bowel Sounds, Non Tender, Soft Extremity: Normal Capillary Refill, No Calf Tenderness Neurologic/Psychiatric: Alert, Oriented x3, Normal Mood/Affect Skin: Normal Color, Warm/Dry Results Results/Procedures Labs Laboratory Tests 10/06/17 11:42 Patient resulted labs reviewed. Assessment/Plan Admission Diagnosis Orthostatic hypotension Admission Status: Observation Diagnosis/Problems Diagnosis/Problems (1) Orthostatic hypotension Status: Acute Assessment & Plan: Will place Mirian Hose PT consult Consider Fludrocortisone if refractory to consistent MIRIAN hose (2) Insulin dependent diabetes mellitus Assessment & Plan: Continue home insulin regimen (3) CKD (chronic kidney disease) Status: Chronic Assessment & Plan: At baseline Qualifiers: Chronic kidney disease stage: stage 2 (mild) Qualified Codes: N18.2 - Chronic kidney disease, stage 2 (mild) (4) Multiple myeloma Assessment & Plan: Last Chemo was 10/02 Follows with oncologist in [place] Qualifiers: Multiple myeloma remission status: in relapse Qualified Codes: C90.02 - Multiple myeloma in relapse PHIL DEL CID MD Oct 06, 2017 15:10
[2017-10-06] MEDS ORDERED: ONDANSETRON 8 MG (ZOFRAN) ORAL DISSOLVE TAB PO PRN (15:15)
[2017-10-06] MEDS ORDERED: ANTACID SUSP 30 ML UDC (MYLANTA) PO PRN (15:15)
[2017-10-06] MEDS ORDERED: MELATONIN 3 MG TABLET PO PRN (15:15)
[2017-10-06] MEDS ORDERED: ONDANSETRON 4 MG/2 ML (SDV) Z0FRAN IV PRN (15:15)
[2017-10-06] MEDS ORDERED: HYDROcodone/APAP 5 MG/325 MG (LORTAB) TAB PO PRN ×2 (15:15)
[2017-10-06] MEDS ORDERED: MILK OF MAGNESIA 400 MG/5 ML 30 ML UDC PO PRN (15:15)
[2017-10-06] MEDS ORDERED: ACETAMINOPHEN 500 MG TAB (TYLENOL) PO PRN ×2 (15:15)
[2017-10-06] MEDS: NS W/KCL 40 MEQ/L 1,000 ML IV SCH ×2 (15:21→20:47)
[2017-10-06] MEDS ORDERED: inSUlin ASPART (NovoLOG) 1 UNIT/0.01 ML (CHARGE PER UNIT) SC SCH (16:00)
[2017-10-06] MEDS ORDERED: L.AC1CAP6 PO (16:03)
[2017-10-06 16:54] VITALS: BP 116/65
[2017-10-06] MEDS ORDERED: ACETAMINOPHEN 325 MG TABLET PO PRN (17:00)
[2017-10-06] MEDS: inSUlin ASPART (NovoLOG) 1 UNIT/0.01 ML (CHARGE PER UNIT) SC SCH ×2 (18:05→20:19)
[2017-10-06] MEDS ORDERED: PATIENT MAY USE OWN MEDS, ALL MC SCH (18:45)
[2017-10-06 20:01] VITALS: BP 173/73
[2017-10-06] MEDS: GABAPENTIN 100 MG (NEURONTIN) CAP PO SCH (20:47)
[2017-10-06] MEDS: ACYCLOVIR 400 MG TABLET (ZOVIRAX) PO SCH (20:47)
[2017-10-06] MEDS ORDERED: inSUlin DETERMIR 1 UNIT/0.01 ML (LEVEMIR) CHARGE PER UNIT SQ SCH ×2 (21:00)
[2017-10-06] MEDS ORDERED: inSUlin GLARGINE 1000 UNITS/10 ML (LANTUS) VIAL SQ SCH (21:00)
[2017-10-07 00:04] VITALS: BP 147/72
[2017-10-07 01:21] LABS: BILIRUBIN,URINE NEGATIVE (NEGATIVE); CLARITY,URINE CLEAR; COLOR,URINE YELLOW; GLUCOSE, URINE (UA) NEGATIVE (NEGATIVE); KETONES,URINE NEGATIVE (NEGATIVE); LEUKOCYTE ESTERASE ,URINE NEGATIVE (NEGATIVE); NITRITE,URINE NEGATIVE (NEGATIVE); PH,URINE 6 (5-9); PROTEIN,URINE NEGATIVE (NEGATIVE); UROBILINOGEN,URINE NORMAL (NORMAL)
[2017-10-07 01:28] LABS: BACTERIA,URINE NEGATIVE /HPF
[2017-10-07] MEDS: NS W/KCL 40 MEQ/L 1,000 ML IV SCH ×2 (02:00→08:22)
[2017-10-07] MEDS: NS IV 1000 ML 1,000 ML IV SCH (03:16)
[2017-10-07 03:51] VITALS: BP 150/70
[2017-10-07] MEDS: inSUlin ASPART (NovoLOG) 1 UNIT/0.01 ML (CHARGE PER UNIT) SC SCH (06:52)
[2017-10-07] MEDS ORDERED: PANTOPRAZOLE 20 MG TABLET (PROTONIX) PO SCH (07:00)
[2017-10-07] MEDS ORDERED: OMEPRAZOLE 20 MG (PriLOSEC) CAP NON-FORMULARY PO SCH (07:00)
[2017-10-07 08:00] VITALS: BP 140/84
[2017-10-07 08:20] LABS: BASOPHILS % (AUTO) 0 % (0-10); EOSINOPHILS % (AUTO) 1 % (0-10); HEMATOCRIT 32 % (40-54); HEMOGLOBIN 11.7 G/DL (13.3-17.7); LYMPHOCYTES # (AUTO) 0.1 X 10^3 (1.0-4.0); LYMPHOCYTES % (AUTO) 8 % (12-44); MEAN CORPUSCULAR HEMOGLOBIN 32 PG (25-34); MEAN CORPUSCULAR HGB CONC 37 G/DL (32-36); MEAN CORPUSCULAR VOLUME 88 FL (80-99); MEAN PLATELET VOLUME 9.5 FL (7.4-10.4); MONOCYTES # (AUTO) 0.2 X 10^3 (0.0-1.0); MONOCYTES % (AUTO) 13 % (0-12); NEUTROPHILS # (AUTO) 1.4 X 10^3 (1.8-7.8); NEUTROPHILS % (AUTO) 79 % (42-75); PLATELET COUNT 108 10^3/uL (130-400); RED BLOOD COUNT 3.61 10^6/uL (4.35-5.85); RED CELL DISTRIBUTION WIDTH 12.3 % (10.0-14.5); WHITE BLOOD COUNT 1.8 10^3/uL (4.3-11.0)
[2017-10-07] MEDS: ACYCLOVIR 400 MG TABLET (ZOVIRAX) PO SCH (08:22)
[2017-10-07] MEDS: GABAPENTIN 100 MG (NEURONTIN) CAP PO SCH (08:22)
[2017-10-07 08:37] LABS: BUN/CREATININE RATIO 11; CALCIUM 7.1 MG/DL (8.5-10.1); CARBON DIOXIDE 12 MMOL/L (21-32); CHLORIDE 114 MMOL/L (98-107); CREATININE SERUM 0.85 MG/DL (0.60-1.30); GFR ESTIMATED > 60; GLUCOSE 167 MG/DL (70-105); POTASSIUM 4.2 MMOL/L (3.6-5.0); SODIUM 135 MMOL/L (135-145)
[2017-10-07] MEDS ORDERED: HYDR-3816 PO (08:48)
--- NOTE | 2017-10-07 08:49 | Discharge Summary-Hospitalist ---
Diagnosis/Chief Complaint Date of Admission Oct 06, 2017 at 13:40 Date of Discharge Discharge Date: Oct 07, 2017 Admission Diagnosis Orthostatic hypotension Discharge Diagnosis (1) Orthostatic hypotension Status: Acute Assessment & Plan: Will place Mirian Hose PT consult Consider Fludrocortisone if refractory to consistent MIRIAN hose (2) Insulin dependent diabetes mellitus Assessment & Plan: Continue home insulin regimen (3) CKD (chronic kidney disease) Status: Chronic Assessment & Plan: At baseline (4) Multiple myeloma Assessment & Plan: Last Chemo was 10/02 Follows with oncologist in [place] Discharge Summary Discharge Physical Exam Allergies: Coded Allergies: codeine (Unverified Allergy, Unknown, 08/25/17) levofloxacin (Unverified Allergy, Unknown, 08/25/17) niacin (Unverified Allergy, Unknown, 08/25/17) Uncoded Allergies: DARVOCET (Allergy, Unknown, 08/25/17) ERYTHROMYCIN (Allergy, Unknown, 08/25/17) Vitals & I&Os Vital Signs Date Time Temp Pulse Resp B/P (MAP) Pulse Ox O2 Delivery O2 Flow Rate FiO2 10/07/17 10:20 85 18 140/84 99 Room Air 10/07/17 08:00 98.0 General Appearance: Alert, Oriented X3 Respiratory: Clear to Auscultation Cardiovascular: Regular Rate Psych/Mental Status: Mental Status NL Hospital Course Pt was admitted to the hospital for orthostatic hypotension and inability to care for himself at home. His had made arrangements for placement in a correction but bed was not yet available. human services care specialist was consulted for assistance and he was discharged to [facility] care facility. He was stable on discharge and agreeable with plan. He is to follow up with ASHLIE Mckenna for further care. Labs (last 24 hrs) Laboratory Tests 10/06/17 16:55: Glucometer 258H 10/06/17 20:13: Glucometer 78 10/07/17 01:15: Urine Color YELLOW, Urine Clarity CLEAR, Urine pH 6, Urine Specific [place] 1.010L, Urine Protein NEGATIVE, Urine Glucose (UA) NEGATIVE, Urine Ketones NEGATIVE, Urine Nitrite NEGATIVE, Urine Bilirubin NEGATIVE, Urine Urobilinogen NORMAL, Urine Leukocyte Esterase NEGATIVE, Urine RBC (Auto) NEGATIVE, Urine RBC NONE, Urine WBC NONE, Urine Crystals NONE, Urine Bacteria NEGATIVE, Urine Casts NONE, Urine Mucus NEGATIVE, Urine Culture Indicated NO 10/07/17 05:34: Glucometer 170H 10/07/17 07:53: White Blood Count 1.8L, Red Blood Count 3.61L, Hemoglobin 11.7L, Hematocrit 32L , Mean Corpuscular Volume 88, Mean Corpuscular Hemoglobin 32, Mean Corpuscular Hemoglobin Concent 37H, Red Cell Distribution Width 12.3, Platelet Count 108L, Mean Platelet Volume 9.5, Neutrophils (%) (Auto) 79H, Lymphocytes (%) (Auto) 8L , Monocytes (%) (Auto) 13H, Eosinophils (%) (Auto) 1, Basophils (%) (Auto) 0, Neutrophils # (Auto) 1.4L, Lymphocytes # (Auto) 0.1L, Monocytes # (Auto) 0.2, Eosinophils # (Auto) 0.0, Basophils # (Auto) 0.0, Sodium Level 135, Potassium Level 4.2, Chloride Level 114H, Carbon Dioxide Level 12L, Anion Gap 9, Blood Urea Nitrogen 9, Creatinine 0.85, Estimat Glomerular Filtration Rate > 60, BUN/ Creatinine Ratio 11, Glucose Level 167H, Calcium Level 7.1L Patient resulted labs reviewed. Pending Labs Laboratory Tests 10/07/17 07:53: White Blood Count 1.8, Red Blood Count 3.61, Hemoglobin 11.7, Hematocrit 32, Mean Corpuscular Volume 88, Mean Corpuscular Hemoglobin 32, Mean Corpuscular Hemoglobin Concent 37, Red Cell Distribution Width 12.3, Platelet Count 108, Mean Platelet Volume 9.5, Neutrophils (%) (Auto) 79, Lymphocytes (%) (Auto) 8, Monocytes (%) (Auto) 13, Eosinophils (%) (Auto) 1, Basophils (%) (Auto) 0, Neutrophils # (Auto) 1.4, Lymphocytes # (Auto) 0.1, Monocytes # (Auto) 0.2, Eosinophils # (Auto) 0.0, Basophils # (Auto) 0.0, Sodium Level 135, Potassium Level 4.2, Chloride Level 114, Carbon Dioxide Level 12, Anion Gap 9, Blood Urea Nitrogen 9, Creatinine 0.85, Estimat Glomerular Filtration Rate > 60, BUN/ Creatinine Ratio 11, Glucose Level 167, Calcium Level 7.1 Discussion & Recommendations Discharge Planning: >30 minutes discharge planning Discharge Home Medications: Active Scripts Active Hydrocodone-Acetamin 7.5-325 (Hydrocodone/Acetaminophen) 1 Each Tablet 1 Tab PO TID PRN Lomotil 2.5-0.025 mg Tablet (Diphenoxylate HCl/Atropine) 1 Each Tablet 1 Each PO Q4H PRN 30 Days Reported Probiotic (L.acidoph & Paracasei,B.lactis) 1 Each Capsule 1 Cap PO AC Megestrol Acetate 20 Mg Tablet 40 Mg PO DAILY Acyclovir 400 Mg Tablet 400 Mg PO BID Zofran (Ondansetron HCl) 8 Mg Tablet 8 Mg PO Q8H PRN Gabapentin 300 Mg Capsule 300 Mg PO TID Calcium 500 + Vit D 200 Tablet (Calcium Carbonate/Vitamin D3) 1 Each Tablet 1 Tab PO BID Omeprazole 20 Mg Capsule.dr 20 Mg PO DAILY Lantus (Insulin Glargine,Hum.rec.anlog) 100 Unit/1 Ml Vial 35 Unit SQ HS Novolog Flexpen (Insulin Aspart) 300 Units/3 Ml Solution 6-7 Units SQ AC Instructions to patient/family Please see electronic discharge instructions given to patient. Clinical Quality Measures DVT/VTE Risk/Contraindication: Risk Factor Score Per Nursin RFS Level Per Nursing on Admit: 4+=Very High Copy Copies To 1: VIDYA ESQUIVEL Problem Qualifiers (1) CKD (chronic kidney disease): Chronic kidney disease stage: stage 2 (mild) Qualified Codes: N18.2 - Chronic kidney disease, stage 2 (mild) (2) Multiple myeloma: Multiple myeloma remission status: in relapse Qualified Codes: C90.02 - Multiple myeloma in relapse PHIL DEL CID MD Oct 07, 2017 08:49
--- NOTE | 2017-10-07 10:00 | Discharge Inst-Skilled Nursing ---
Discharge Inst-Skilled NF Chief Complaint Pt is a 67yoAAM known to me from multiple previous admissions who presented to the ER due to a syncopal episode. He was just discharged on 10/04 after a similar episode. He was walking to the bathroom today and "blacked out" for a few seconds and woke up sitting on the toilet staring up with his standing near him talking but he could not understand her. This is his 5th admission in the past month for similar episodes and he is concerned about her ability to continue to care for him at home and has requesting NH placement. He was not wearing his MIRIAN hose at the time of this episode but did have on compression socks. Patient Instructions Patient Problems: Multiple Myeloma, Orthostatic Hypotension, Chronic Diarrhea Consult/Follow Up/Orders Follow Up Appt.: With Geno Yeung this week. Skilled NF Admit to: [facility] Certification (SNF) I certify that nursing and therapy services are required to be given on an inpatient basis because of the above named patient's need for senior care care on a continuing basis for the conditions(s) for which he/she was receiving inpatient hospital services prior to his/her transfer. Halfway Facility Order: Nursing Services, Entry Level Electrical Engineer-Evaluate & Treat, Physical Therapy-Evaluate & Treat Discharge Diet: No Restrictions New & Resume Previous Orders Phil Ramey Oct 07, 2017 09:58 PHIL RAMEY MD Oct 07, 2017 10:00 am
[2017-10-07 10:20] VITALS: BP 140/84
== END 2017-10-07 08:49 ==
LOC: EDUNIT# 11:25 → ER 11:26 → 4TH 13:40 → UNDOADMOB 13:40 → 4TH 15:15 → UNDODISOB 10-07 10:20
PROVIDERS: ADMIT Family Medicine; ATTEND Family Medicine
DX: I95.1 Orthostatic hypotension (principal); C90.00 Multiple myeloma not having achieved remission; E11.22 Type 2 diabetes mellitus with diabetic chronic kidney disease; N18.2 Chronic kidney disease, stage 2 (mild); I25.10 Atherosclerotic heart disease of native coronary artery without angina pectoris; E78.00 Pure hypercholesterolemia, unspecified; K21.9 Gastro-esophageal reflux disease without esophagitis; I25.2 Old myocardial infarction; Z79.4 Long term (current) use of insulin; Z79.899 Other long term (current) drug therapy; Z87.891 Personal history of nicotine dependence; Z95.5 Presence of coronary angioplasty implant and graft
CPT/HCPCS: 36415; 70450; 71100; 72125; 80048; 80053; 80320; 81000; 82962; 83735; 83880; 85007; 85025; 85027; 93005; 96360; 96361; G0378

== ENCOUNTER 2017-10-14 12:06 | Emergency (ER) | payer MEDICARE ==
[~2017-10-14] VITALS: Ht 170.2 cm; Wt 63.5 kg
[~2017-10-14 12:06] MED LIST changes: +L.AC1CAP6 PO
[2017-10-14] MEDS ORDERED: LACTATED RINGERS 1,000 ML IV ONE (12:44)
[2017-10-14 13:46] LABS: BASOPHILS % (AUTO) 1 % (0-10); EOSINOPHILS # (AUTO) 0.2 10^3/uL (0.0-0.3); EOSINOPHILS % (AUTO) 6 % (0-10); HEMATOCRIT 35 % (40-54); LYMPHOCYTES # (AUTO) 0.7 X 10^3 (1.0-4.0); LYMPHOCYTES % (AUTO) 18 % (12-44); MEAN CORPUSCULAR HEMOGLOBIN 33 PG (25-34); MEAN CORPUSCULAR HGB CONC 38 G/DL (32-36); MEAN CORPUSCULAR VOLUME 87 FL (80-99); MEAN PLATELET VOLUME 11.2 FL (7.4-10.4); MONOCYTES # (AUTO) 1.2 X 10^3 (0.0-1.0); MONOCYTES % (AUTO) 33 % (0-12); NEUTROPHILS # (AUTO) 1.5 X 10^3 (1.8-7.8); NEUTROPHILS % (AUTO) 42 % (42-75); PLATELET COUNT 188 10^3/uL (130-400); RED BLOOD COUNT 3.96 10^6/uL (4.35-5.85); WHITE BLOOD COUNT 3.6 10^3/uL (4.3-11.0)
[2017-10-14 13:56] LABS: CARBON DIOXIDE 17 MMOL/L (21-32); CHLORIDE 102 MMOL/L (98-107); CREATININE SERUM 0.98 MG/DL (0.60-1.30); POTASSIUM 3.2 MMOL/L (3.6-5.0); SODIUM 129 MMOL/L (135-145)
[2017-10-14 13:57] LABS: ALANINE AMINOTRANSFERASE 98 U/L (0-55); ALBUMIN 3.7 GM/DL (3.2-4.5); ALKALINE PHOSPHATASE 129 U/L (40-136); BILIRUBIN,TOTAL 0.9 MG/DL (0.1-1.0); BUN/CREATININE RATIO 14; CALCIUM 7.5 MG/DL (8.5-10.1); GFR ESTIMATED > 60; GLUCOSE 162 MG/DL (70-105); TOTAL PROTEIN 6.3 GM/DL (6.4-8.2)
[2017-10-14 14:04] LABS: BILIRUBIN,URINE NEGATIVE (NEGATIVE); CLARITY,URINE CLEAR; COLOR,URINE YELLOW; GLUCOSE, URINE (UA) NEGATIVE (NEGATIVE); KETONES,URINE 2+ (NEGATIVE); LEUKOCYTE ESTERASE ,URINE NEGATIVE (NEGATIVE); NITRITE,URINE NEGATIVE (NEGATIVE); PH,URINE 6 (5-9); PROTEIN,URINE 1+ (NEGATIVE); UROBILINOGEN,URINE NORMAL (NORMAL)
--- NOTE | 2017-10-14 14:25 | ED General ---
General Chief Complaint: Dizziness/Syncope Stated Complaint: SEIZURE Nursing Triage Note: PT ARRIVED PER EMS FROM [place], PT HAS SYNCOPAL EPISODE AT [place] WHILE ON COMMODE. PT IS ALERT UPON ARRIVAL, ASKING HOW HE GOT TO ED. PT HAS MULTIPLE MYELOMA AND HAS GRADUALLY BECOME WEAKER Nursing Sepsis Screen: No Definite Risk Source of Information: Patient Exam Limitations: No Limitations History of Present Illness Date Seen by Provider: Oct 14, 2017 Time Seen by Provider: 13:50 Initial Comments Here from a long term with reports a couple episode today. Patient does not remember what occurred. Does have history of multiple myeloma and is becoming weaker over time. Denies nausea or vomiting. States that he is just cold right now. Timing/Duration: 1 Hour Severity: Moderate Associated Systoms: No Chest Pain, No Cough, No Fever/Chills, No Nausea/ Vomiting, No Shortness of Air; Weakness Allergies and Home Medications Allergies Coded Allergies: codeine (Unverified Allergy, Unknown, 08/25/17) levofloxacin (Unverified Allergy, Unknown, 08/25/17) niacin (Unverified Allergy, Unknown, 08/25/17) Uncoded Allergies: DARVOCET (Allergy, Unknown, 08/25/17) ERYTHROMYCIN (Allergy, Unknown, 08/25/17) Home Medications Acyclovir 400 Mg Tablet, 400 MG PO BID, (Reported) Calcium Carbonate/Vitamin D3 1 Each Tablet, 1 TAB PO BID, (Reported) Diphenoxylate HCl/Atropine 1 Each Tablet, 1 EACH PO Q4H PRN for diarrhea Prescribed by: MAURI REYES on 10/04/17 1138 Gabapentin 300 Mg Capsule, 300 MG PO TID, (Reported) Hydrocodone/Acetaminophen 1 Each Tablet, 1 TAB PO TID PRN for PAIN-MODERATE Prescribed by: PHIL DEL CID on 10/07/17 0848 Insulin Aspart 300 Units/3 Ml Solution, 6-7 UNITS SQ AC, (Reported) Insulin Glargine,Hum.rec.anlog 100 Unit/1 Ml Vial, 35 UNIT SQ HS, (Reported) L.acidoph & Paracasei,B.lactis 1 Each Capsule, 1 CAP PO AC, (Reported) Megestrol Acetate 20 Mg Tablet, 40 MG PO DAILY, (Reported) Omeprazole 20 Mg Capsule.dr, 20 MG PO DAILY, (Reported) Ondansetron HCl 8 Mg Tablet, 8 MG PO Q8H PRN for NAUSEA/VOMITING-1ST LINE, ( Reported) Patient Home Medication List Home Medication List Reviewed: Yes Review of Systems Constitutional: see HPI; No chills, No fever Respiratory: no symptoms reported Cardiovascular: No chest pain; syncope Gastrointestinal: No abdominal pain, No nausea, No vomiting Genitourinary: no symptoms reported Musculoskeletal: no symptoms reported Skin: no symptoms reported Psychiatric/Neurological: See HPI All Other Systems Reviewed Negative Unless Noted: Yes Past Edmokvc-Edwmfa-Mcvpls Hx Past Med/Social Hx: Reviewed Nursing Past Med/Soc Hx Patient Social History Alcohol Use: Denies Use Number of Drinks Today: BB Alcohol Beverage of Choice: [place] Recreational Drug Use: No Drug of Choice: + IV OPIATE USE--QUIT 1983 Smoking Status: Former Smoker Type Used: Cigarettes Former Smoker, Quit: Jan 08, 1973 2nd Hand Smoke Exposure: No Recent Foreign Travel: No Contact w/Someone Who Travel: No Recent Infectious Disease Expo: No Recent Hopitalizations: Yes (09/2017) Physical Abuse: No Sexual Abuse: No Immunizations Up To Date Date of Pneumonia Vaccine: Jan 09, 2015 Seasonal Allergies Seasonal Allergies: No Past Medical History Surgeries: Yes (SEE CHART FROM 08/25/17) Abdominal, Cardiac, Coronary Stent, Orthopedic Respiratory: Yes (MULTIPLE EPISODES OF PNEUMONIA; RIGHT PNEUMOTHORAX FROM TRAUMA 1992) Pneumonia Currently Using CPAP: No Currently Using BIPAP: No Cardiac: Yes (CO X 3--CARDIAC CATHS-STENT X 1) Coronary Artery Disease, Heart Attack, High Cholesterol, Hypotension Neurological: Yes (MULTIPLE MYELOMA) Sexually Transmitted Disease: No HIV/AIDS: No Genitourinary: No Gastrointestinal: Yes Abdominal Hernia, Gastroesophageal Reflux, Hepatitis Musculoskeletal: Yes Fractures Endocrine: Yes Diabetes, Insulin dep HEENT: Yes (WISDOM TEETH REMOVAL; WEARS GLASSES) Cataract Loss of Vision: Denies Hearing Impairment: Denies Cancer: Yes (MULTIPLE MYELOMA--DIAGNOSED AROUND 2003, 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) Did You Recieve Any Treatments: Yes What Type of Treatment Did You: Chemotherapy Psychosocial: No Nursing Suicide Risk Score: 0 Integumentary: No Blood Disorders: Yes (PANCYTOPENIA ON CHEMO) Adverse Reaction/Blood Tranf: No Family Medical History Cancer Physical Exam Vital Signs Vital Signs - First Documented 10/14/17 12:10 Temp 97.5 Pulse 115 Resp 18 B/P (MAP) 138/73 (94) Pulse Ox 96 Capillary Refill : Less Than 3 Seconds Height, Weight, BMI Height: 5'7.00" Weight: 140lbs. 2.0oz. [id number]; 25.0 BMI Method:Stated General Appearance: No Apparent Distress, Chronically ill HEENT: Pharynx Normal, Other (pupils pinpoint bilateral) Neck: Non Tender, Supple Respiratory: Lungs Clear, Normal Breath Sounds Cardiovascular: No Murmur, Tachycardia Gastrointestinal: Non Tender, Soft Back: Normal Inspection, No CVA Tenderness, No Vertebral Tenderness Extremity: Normal Range of Motion, Non Tender Neurologic/Psychiatric: Alert, Oriented x3 Skin: Normal Color, Warm/Dry Progress/Results/Core Measures Suspected Sepsis Recent Fever Within 48 Hours: No Infection Criteria Present: None New/Unexplained Altered Menta: No Sepsis Screen: No Definite Risk SIRS Temperature:97.5 Pulse: 115 Respiratory Rate: 18 Laboratory Tests 10/14/17 12:30: White Blood Count 3.6L Blood Pressure 138 /73 Mean: 94 Laboratory Tests 10/14/17 12:30: Creatinine 0.98, Platelet Count 188, Total Bilirubin 0.9 Results/Orders Lab Results Laboratory Tests Test 10/14/17 12:30 10/14/17 13:57 Range/Units White Blood Count 3.6 L 4.3-11.0 10^3/uL Red Blood Count 3.96 L 4.35-5.85 10^6/uL Hemoglobin 13.0 L 13.3-17.7 G/DL Hematocrit 35 L 40-54 % Mean Corpuscular Volume 87 80-99 FL Mean Corpuscular Hemoglobin 33 25-34 PG Mean Corpuscular Hemoglobin Concent 38 H 32-36 G/DL Red Cell Distribution Width 13.0 10.0-14.5 % Platelet Count 188 130-400 10^3/uL Mean Platelet Volume 11.2 H 7.4-10.4 FL Neutrophils (%) (Auto) 42 42-75 % Lymphocytes (%) (Auto) 18 12-44 % Monocytes (%) (Auto) 33 H 0-12 % Eosinophils (%) (Auto) 6 0-10 % Basophils (%) (Auto) 1 0-10 % Neutrophils # (Auto) 1.5 L 1.8-7.8 X 10^3 Lymphocytes # (Auto) 0.7 L 1.0-4.0 X 10^3 Monocytes # (Auto) 1.2 H 0.0-1.0 X 10^3 Eosinophils # (Auto) 0.2 0.0-0.3 10^3/uL Basophils # (Auto) 0.0 0.0-0.1 10^3/uL Neutrophils % (Manual) 57 % Lymphocytes % (Manual) 9 % Monocytes % (Manual) 24 % Eosinophils % (Manual) 1 % Basophils % (Manual) 0 % Band Neutrophils 0 % Reactive Lymphocytes 9 % Poikilocytosis MODERATE Mcgregor Cells MODERATE Elliptocytes SLIGHT Rouleau MOD Sodium Level 129 L 135-145 MMOL/L Potassium Level 3.2 L 3.6-5.0 MMOL/L Chloride Level 102 98-107 MMOL/L Carbon Dioxide Level 17 L 21-32 MMOL/L Anion Gap 10 5-14 MMOL/L Blood Urea Nitrogen 14 7-18 MG/DL Creatinine 0.98 0.60-1.30 MG/DL Estimat Glomerular Filtration Rate > 60 BUN/Creatinine Ratio 14 Glucose Level 162 H 70-105 MG/DL Calcium Level 7.5 L 8.5-10.1 MG/DL Total Bilirubin 0.9 0.1-1.0 MG/DL Aspartate Amino Transf (AST/SGOT) 42 H 5-34 U/L Alanine Aminotransferase (ALT/SGPT) 98 H 0-55 U/L Alkaline Phosphatase 129 40-136 U/L Total Protein 6.3 L 6.4-8.2 GM/DL Albumin 3.7 3.2-4.5 GM/DL Urine Color YELLOW Urine Clarity CLEAR Urine pH 6 5-9 Urine Specific [place] 1.010 L 1.016-1.022 Urine Protein 1+ H NEGATIVE Urine Glucose (UA) NEGATIVE NEGATIVE Urine Ketones 2+ H NEGATIVE Urine Nitrite NEGATIVE NEGATIVE Urine Bilirubin NEGATIVE NEGATIVE Urine Urobilinogen NORMAL NORMAL MG/DL Urine Leukocyte Esterase NEGATIVE NEGATIVE Urine RBC (Auto) NEGATIVE NEGATIVE Urine RBC NONE /HPF Urine WBC RARE /HPF Urine Squamous Epithelial Cells NONE /HPF Urine Renal Epithelial Cells NONE /HPF Urine Crystals NONE /LPF Urine Bacteria NEGATIVE /HPF Urine Casts NONE /LPF Urine Mucus NEGATIVE /LPF Urine Culture Indicated NO My Orders Orders - LOR MENDEZ MD Lactated Ringers (Lr 1000 Ml Iv Solution (10/14/17 12:44) Saline Lock/Iv-Start (10/14/17 15:19) Ns Iv 1000 Ml (Sodium Chloride 0.9%) (10/14/17 15:19) Medications Given in ED Current Medications Medications Dose Ordered Sig/Carmel Route Start Time Stop Time Status Last Admin Dose Admin Lactated Ringer's 1,000 ml @ ud STK-MED ONCE IV 10/14/17 12:44 10/14/17 12:47 DC 10/14/17 12:51 500 MLS/HR Vital Signs/I&O 10/14/17 12:10 Temp 97.5 Pulse 115 Resp 18 B/P (MAP) 138/73 (94) Pulse Ox 96 Capillary Refill : Less Than 3 Seconds Blood Pressure Mean: 94 Progress Note : Progress Note Seen and evaluated. IV, labs and UA ordered. LR 1 L bolus ordered. Monitor patient. Patient doing better. Repeat normal saline 1 L bolus. Labs reviewed. No significant abnormalities. Patient feeling much better and is requesting to go back to long term. Discharged back to long term with return precautions. Patient verbalize understanding instructions and agreement with plan. Departure Impression Primary Impression: Hypotension Qualified Codes: I95.1 - Orthostatic hypotension Additional Impression: Multiple myeloma Qualified Codes: C90.02 - Multiple myeloma in relapse Disposition: 01 HOME, SELF-CARE Condition: Stable Departure-Patient Inst. Decision time for Depature: 16:23 Referrals: YOMI RAMESH MD (PCP/Family) Primary Care Physician Patient Instructions: Multiple Myeloma (DC), Orthostatic Hypotension (DC), Syncope (Fainting) (DC) Add. Discharge Instructions: All discharge instructions reviewed with patient and/or family. Voiced understanding. Continue home medications as previously prescribed. He had normal diet and drink plenty of fluids. Return for worsening, fever, vomiting, weakness, breathing problems or other concerns as needed. LOR MENDEZ MD Oct 14, 2017 14:25
[2017-10-14 14:31] LABS: BAND NEUTROPHILS 0 %; LYMPHOCYTES % (MANUAL) 9 %; NEUTROPHILS % (MANUAL) 57 %
[2017-10-14 14:32] LABS: BASOPHILS % (MANUAL) 0 %; ELLIPT/OVALOCYTES SLIGHT; EOSINOPHILS % (MANUAL) 1 %; MONOCYTES % (MANUAL) 24 %; POIKILOCYTOSIS MODERATE; REACTIVE LYMPHOCYTES 9 %
[2017-10-14 14:33] LABS: BURR CELLS MODERATE; ROULEAUX MOD
[2017-10-14 14:46] LABS: BACTERIA,URINE NEGATIVE /HPF; WBC,URINE RARE /HPF
[2017-10-14] MEDS ORDERED: NS IV 1000 ML 1,000 ML IV SCH (15:19)
[2017-10-14 16:45] VITALS: BP 159/97
== END 2017-10-14 16:45 | disposition home or self-care (01) ==
LOC: EDUNIT# 12:06 → ER 12:07
DX: I95.1 Orthostatic hypotension (principal); C90.02 Multiple myeloma in relapse; I25.2 Old myocardial infarction; I25.10 Atherosclerotic heart disease of native coronary artery without angina pectoris; E11.9 Type 2 diabetes mellitus without complications; E78.00 Pure hypercholesterolemia, unspecified; K21.9 Gastro-esophageal reflux disease without esophagitis; Z87.19 Personal history of other diseases of the digestive system; Z92.21 Personal history of antineoplastic chemotherapy; Z88.5 Allergy status to narcotic agent; Z88.1 Allergy status to other antibiotic agents; Z88.8 Allergy status to other drugs, medicaments and biological substances; Z88.0 Allergy status to penicillin; Z79.4 Long term (current) use of insulin; Z87.891 Personal history of nicotine dependence; Z95.5 Presence of coronary angioplasty implant and graft; Z87.01 Personal history of pneumonia (recurrent)
CPT/HCPCS: 36415; 80053; 81000; 85007; 85027; 96360; 96361

== ENCOUNTER 2017-11-10 19:25 | Emergency (ER) | payer MEDICARE ==
[~2017-11-10] VITALS: Ht 165.1 cm; Wt 56.7 kg
[2017-11-10 19:45] VITALS: BP 119/86
[2017-11-10 20:46] LABS: BASOPHILS % (AUTO) 1 % (0-10); EOSINOPHILS % (AUTO) 1 % (0-10); HEMATOCRIT 39 % (40-54); HEMOGLOBIN 14.3 G/DL (13.3-17.7); LYMPHOCYTES # (AUTO) 0.8 X 10^3 (1.0-4.0); LYMPHOCYTES % (AUTO) 23 % (12-44); MEAN CORPUSCULAR HEMOGLOBIN 32 PG (25-34); MEAN CORPUSCULAR HGB CONC 37 G/DL (32-36); MEAN CORPUSCULAR VOLUME 86 FL (80-99); MEAN PLATELET VOLUME 9.7 FL (7.4-10.4); MONOCYTES # (AUTO) 0.8 X 10^3 (0.0-1.0); MONOCYTES % (AUTO) 22 % (0-12); NEUTROPHILS # (AUTO) 1.9 X 10^3 (1.8-7.8); NEUTROPHILS % (AUTO) 54 % (42-75); PLATELET COUNT 214 10^3/uL (130-400); RED BLOOD COUNT 4.46 10^6/uL (4.35-5.85); RED CELL DISTRIBUTION WIDTH 13.4 % (10.0-14.5); WHITE BLOOD COUNT 3.5 10^3/uL (4.3-11.0)
[2017-11-10 21:03] LABS: ALANINE AMINOTRANSFERASE 48 U/L (0-55); ALBUMIN 4.1 GM/DL (3.2-4.5); ALKALINE PHOSPHATASE 69 U/L (40-136); BILIRUBIN,TOTAL 1.2 MG/DL (0.1-1.0); BUN/CREATININE RATIO 11; CALCIUM 8.8 MG/DL (8.5-10.1); CARBON DIOXIDE 14 MMOL/L (21-32); CHLORIDE 102 MMOL/L (98-107); CREATININE SERUM 0.91 MG/DL (0.60-1.30); GFR ESTIMATED > 60; GLUCOSE 147 MG/DL (70-105); POTASSIUM 3.2 MMOL/L (3.6-5.0); SODIUM 132 MMOL/L (135-145)
--- NOTE | 2017-11-10 21:03 | Diagnostic Imaging Report ---
Portable erect AP chest at 8:48 p.m. INDICATION: Shortness of breath The heart size is within normal limits and stable when compared to 10/06/2017. The lungs are clear. There is no sign of failure, pneumonia or of pleural effusion. The mediastinum is not widened. The osseous structures are intact. The left-sided Port-A-Cath seen previously is again evident and unchanged in position. IMPRESSION: There is no evidence for an acute cardiopulmonary abnormality. Dictated by: Dictated on workstation # [id number]
[2017-11-10 21:05] LABS: BAND NEUTROPHILS 1 %; LYMPHOCYTES % (MANUAL) 23 %; NEUTROPHILS % (MANUAL) 59 %
[2017-11-10 21:06] LABS: BASOPHILS % (MANUAL) 2 %; EOSINOPHILS % (MANUAL) 0 %; MONOCYTES % (MANUAL) 15 %; RBC MORPH NORMAL
[2017-11-10] MEDS ORDERED: NS IV 500 ML 500 ML IV SCH (21:30)
--- NOTE | 2017-11-10 21:46 | ED Respiratory ---
General Chief Complaint: Respiratory Problems Stated Complaint: SOB Nursing Triage Note: PT PRESENTS TO ER WITH COMPLAINT OF SOB FOR A FEW DAYS. STATES IT IS WORSE WITH EXERTION. Source: patient Exam Limitations: no limitations History of Present Illness Date Seen by Provider: Nov 10, 2017 Time Seen by Provider: 20:20 Initial Comments Patient is a 67-year-old male who presents to the emergency room with complaints of shortness of breath with exertion for the past week. He denies fevers, cough, upper respiratory infections. But does report generalized weakness. He is currently undergoing chemotherapy treatment for multiple myeloma. His physician is Dr. Salazar out of [facility]. Timing/Duration: week Prior Episodes/Possible Cause: no prior episodes Associated Symptoms: No chest pain/soreness, No cough, No fever/chills, No headache; shortness of breath; No sore throat, No wheezing Allergies and Home Medications Allergies Coded Allergies: codeine (Unverified Allergy, Unknown, 08/25/17) levofloxacin (Unverified Allergy, Unknown, 08/25/17) niacin (Unverified Allergy, Unknown, 08/25/17) Uncoded Allergies: DARVOCET (Allergy, Unknown, 08/25/17) ERYTHROMYCIN (Allergy, Unknown, 08/25/17) Home Medications Acyclovir 400 Mg Tablet, 400 MG PO BID, (Reported) Calcium Carbonate/Vitamin D3 1 Each Tablet, 1 TAB PO BID, (Reported) Diphenoxylate HCl/Atropine 1 Each Tablet, 1 EACH PO Q4H PRN for diarrhea Prescribed by: MAURI REYES on 10/04/17 1138 Gabapentin 300 Mg Capsule, 300 MG PO TID, (Reported) Hydrocodone/Acetaminophen 1 Each Tablet, 1 TAB PO TID PRN for PAIN-MODERATE Prescribed by: PHIL DEL CID on 10/07/17 0848 Insulin Aspart 300 Units/3 Ml Solution, 6-7 UNITS SQ AC, (Reported) Insulin Glargine,Hum.rec.anlog 100 Unit/1 Ml Vial, 35 UNIT SQ HS, (Reported) L.acidoph & Paracasei,B.lactis 1 Each Capsule, 1 CAP PO AC, (Reported) Megestrol Acetate 20 Mg Tablet, 40 MG PO DAILY, (Reported) Omeprazole 20 Mg Capsule.dr, 20 MG PO DAILY, (Reported) Ondansetron HCl 8 Mg Tablet, 8 MG PO Q8H PRN for NAUSEA/VOMITING-1ST LINE, ( Reported) Patient Home Medication List Home Medication List Reviewed: Yes Review of Systems Constitutional: see HPI; No chills, No fever Respiratory: see HPI; No cough; dyspnea on exertion, short of breath All Other Systems Reviewed Negative Unless Noted: Yes Past Xtrespl-Ayqfof-Fnthfn Hx Past Med/Social Hx: Reviewed Nursing Past Med/Soc Hx Patient Social History Alcohol Use: Occasionally Uses Number of Drinks Today: BB Alcohol Beverage of Choice: [place] Recreational Drug Use: No Drug of Choice: + IV OPIATE USE--QUIT 1983 Smoking Status: Former Smoker Type Used: Cigarettes Former Smoker, Quit: Jan 08, 1973 2nd Hand Smoke Exposure: No Recent Foreign Travel: No Contact w/Someone Who Travel: No Recent Infectious Disease Expo: No Recent Hopitalizations: Yes (09/2017) Immunizations Up To Date Tetanus Booster (TDap): Unknown PED Vaccines UTD: Yes Date of Pneumonia Vaccine: Jan 09, 2015 Seasonal Allergies Seasonal Allergies: No Past Medical History Surgeries: Yes (SEE CHART FROM 08/25/17) Abdominal, Cardiac, Coronary Stent, Orthopedic Respiratory: Yes (MULTIPLE EPISODES OF PNEUMONIA; RIGHT PNEUMOTHORAX FROM TRAUMA 1992) Pneumonia Currently Using CPAP: No Currently Using BIPAP: No Cardiac: Yes ([place] X 3--CARDIAC CATHS-STENT X 1) Coronary Artery Disease, Heart Attack, High Cholesterol, Hypotension Neurological: Yes (MULTIPLE MYELOMA) Sexually Transmitted Disease: No HIV/AIDS: No Genitourinary: No Gastrointestinal: Yes Abdominal Hernia, Gastroesophageal Reflux, Hepatitis Musculoskeletal: Yes Fractures Endocrine: Yes Diabetes, Insulin dep HEENT: Yes (WISDOM TEETH REMOVAL; WEARS GLASSES) Cataract Loss of Vision: Denies Hearing Impairment: Denies Cancer: Yes (MULTIPLE MYELOMA--DIAGNOSED AROUND 2003, 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) Did You Recieve Any Treatments: Yes What Type of Treatment Did You: Chemotherapy Psychosocial: No Integumentary: No Blood Disorders: Yes (PANCYTOPENIA ON CHEMO) Adverse Reaction/Blood Tranf: No Family Medical History Reviewed Nursing Family Hx Cancer Physical Exam Vital Signs - First Documented 11/10/17 19:45 Temp 98.7 Pulse 104 Resp 20 B/P (MAP) 119/86 (97) Pulse Ox 99 O2 Delivery Room Air Capillary Refill : Less Than 3 Seconds Height: 5'5.00" Weight: 125lbs. 2.0oz. [id number]; 25.0 BMI Method:Stated General Appearance: WD/WN, no apparent distress Respiratory: chest non-tender, lungs clear, normal breath sounds, no respiratory distress, no accessory muscle use Cardiovascular: regular rate, rhythm, no edema, no gallop, no JVD, no murmur Neurologic/Psychiatric: alert, normal mood/affect, oriented x 3 Skin: normal color, warm/dry Progress/Results/Core Measures Suspected Sepsis Recent Fever Within 48 Hours: No Infection Criteria Present: None New/Unexplained Altered Menta: No Sepsis Screen: No Definite Risk SIRS Temperature:98.7 Pulse: 104 Respiratory Rate: 20 Laboratory Tests 11/10/17 20:31: White Blood Count 3.5L Blood Pressure 119 /86 Mean: 97 Laboratory Tests 11/10/17 20:31: Creatinine 0.91, Platelet Count 214, Total Bilirubin 1.2H Results/Orders Lab Results Laboratory Tests Test 11/10/17 20:31 Range/Units White Blood Count 3.5 L 4.3-11.0 10^3/uL Red Blood Count 4.46 4.35-5.85 10^6/uL Hemoglobin 14.3 13.3-17.7 G/DL Hematocrit 39 L 40-54 % Mean Corpuscular Volume 86 80-99 FL Mean Corpuscular Hemoglobin 32 25-34 PG Mean Corpuscular Hemoglobin Concent 37 H 32-36 G/DL Red Cell Distribution Width 13.4 10.0-14.5 % Platelet Count 214 130-400 10^3/uL Mean Platelet Volume 9.7 7.4-10.4 FL Neutrophils (%) (Auto) 54 42-75 % Lymphocytes (%) (Auto) 23 12-44 % Monocytes (%) (Auto) 22 H 0-12 % Eosinophils (%) (Auto) 1 0-10 % Basophils (%) (Auto) 1 0-10 % Neutrophils # (Auto) 1.9 1.8-7.8 X 10^3 Lymphocytes # (Auto) 0.8 L 1.0-4.0 X 10^3 Monocytes # (Auto) 0.8 0.0-1.0 X 10^3 Eosinophils # (Auto) 0.0 0.0-0.3 10^3/uL Basophils # (Auto) 0.0 0.0-0.1 10^3/uL Neutrophils % (Manual) 59 % Lymphocytes % (Manual) 23 % Monocytes % (Manual) 15 % Eosinophils % (Manual) 0 % Basophils % (Manual) 2 % Band Neutrophils 1 % Blood Morphology Comment NORMAL D-Dimer 0.57 H 0.00-0.49 UG/ML Sodium Level 132 L 135-145 MMOL/L Potassium Level 3.2 L 3.6-5.0 MMOL/L Chloride Level 102 98-107 MMOL/L Carbon Dioxide Level 14 L 21-32 MMOL/L Anion Gap 16 H 5-14 MMOL/L Blood Urea Nitrogen 10 7-18 MG/DL Creatinine 0.91 0.60-1.30 MG/DL Estimat Glomerular Filtration Rate > 60 BUN/Creatinine Ratio 11 Glucose Level 147 H 70-105 MG/DL Calcium Level 8.8 8.5-10.1 MG/DL Corrected Calcium 8.7 8.5-10.1 MG/DL Total Bilirubin 1.2 H 0.1-1.0 MG/DL Aspartate Amino Transf (AST/SGOT) 28 5-34 U/L Alanine Aminotransferase (ALT/SGPT) 48 0-55 U/L Alkaline Phosphatase 69 40-136 U/L B-Type Natriuretic Peptide 15.5 <100.0 PG/ML Total Protein 7.0 6.4-8.2 GM/DL Albumin 4.1 3.2-4.5 GM/DL My Orders Orders - ANKITSYCLARITZA Cbc With Automated Diff (11/10/17 20:20) Comprehensive Metabolic Panel (11/10/17 20:20) BNP (11/10/17 20:20) Chest 1 View, Ap/Pa Only (11/10/17 20:20) Fibrin Degradation Products (11/10/17 20:20) Ekg Tracing (11/10/17 20:20) O2 (11/10/17 20:20) Saline Lock/Iv-Start (11/10/17 20:20) Monitor-Rhythm Ecg Trace Only (11/10/17 20:20) Manual Differential (11/10/17 20:31) Ns Iv 500 Ml (Sodium Chloride 0.9%) (11/10/17 21:30) Vital Signs/I&O 11/10/17 19:45 Temp 98.7 Pulse 104 Resp 20 B/P (MAP) 119/86 (97) Pulse Ox 99 O2 Delivery Room Air Capillary Refill : Less Than 3 Seconds Blood Pressure Mean: 97 Progress Note : Time: 21:30 Progress Note The patient was informed of elevated d-dimer. He agreed plans for CT angiogram of the chest. 2144: The patient's port is not a power port and he was informed that we would have to start an IV for the CT of the chest. He was hesitant at first but allowed us to attempt an IV. We were not successful after one attempt and he stated that he is feeling much better at this time and he just wants to go home. I informed him that he would have to sign out AGAINST MEDICAL ADVICE. He was in agreement of this I informed him of the benefits of staying and the risks of going home without further studies, diagnosis, and treatment. Diagnostic Imaging Diagonstic Imaging: Xray Plain Films/CT/US/NM/MRI: chest Comments NAME: DOMINIQUE NOGUEIRA [facility] REC#: [id number] PHYSICIAN: CLARITZA PHAM CC: CLARITZA PHAM; ABHIJEET CUMMINGS MD Page 1 of 1 RADIOLOGY REPORT VIA [facility] [place], [place] CC: EUSEBIO PHAM PAUL J MD Page 1 of 1 RADIOLOGY REPORT NAME: DOMINIQUE NOGUEIRA [facility] REC#: [id number] PT STATUS: REG ER : 1950 PHYSICIAN: CLARITZA PHAM ADMIT DATE: 11/10/17/ER Signed Date of Exam: 11/10/17 CHEST 1 VIEW, AP/PA ONLY Portable erect AP chest at 8:48 p.m. INDICATION: Shortness of breath The heart size is within normal limits and stable when compared to 10/06/2017. The lungs are clear. There is no sign of failure, pneumonia or of pleural effusion. The mediastinum is not widened. The osseous structures are intact. The left-sided Port-A-Cath seen previously is again evident and unchanged in position. IMPRESSION: There is no evidence for an acute cardiopulmonary abnormality. Dictated by: Dictated on workstation # [id number] Dict: 11/10/17 2100 Trans: 11/10/172223 Interpreted by: ABHIJEET CUMMINGS MD Electronically signed by: ABHIJEET CUMMINGS MD 11/10/172223 Reviewed: Reviewed by Me Departure Impression Primary Impression: Shortness of breath Additional Impression: Left against medical advice Disposition: 01 HOME, SELF-CARE Condition: Against Medical Advice Departure-Patient Inst. Decision time for Depature: 21:48 Referrals: YOMI RAMESH MD (PCP/Family) Primary Care Physician Patient Instructions: Shortness of Breath (Dyspnea) (DC) Add. Discharge Instructions: Follow-up with your primary care provider within 1 week for recheck. Return back to the emergency room for any worsening symptoms such as increased shortness of breath or chest pain, dizziness, or any other concerns as needed. All discharge instructions reviewed with patient and/or family. Voiced understanding. CLARITZA PHAM Nov 10, 2017 21:46
== END 2017-11-10 21:57 | disposition left against medical advice (07) ==
LOC: EDUNIT# 19:25 → ER 19:26
DX: R06.02 Shortness of breath (principal); I25.2 Old myocardial infarction; I25.10 Atherosclerotic heart disease of native coronary artery without angina pectoris; E78.00 Pure hypercholesterolemia, unspecified; I10 Essential (primary) hypertension; K21.9 Gastro-esophageal reflux disease without esophagitis; E11.9 Type 2 diabetes mellitus without complications; C90.00 Multiple myeloma not having achieved remission; D61.818 Other pancytopenia; Z95.5 Presence of coronary angioplasty implant and graft; Z88.6 Allergy status to analgesic agent; Z88.1 Allergy status to other antibiotic agents; Z79.4 Long term (current) use of insulin; Z87.891 Personal history of nicotine dependence; Z87.09 Personal history of other diseases of the respiratory system
CPT/HCPCS: 36415; 71045; 80053; 83880; 85007; 85027; 85379; 93005; 93041

== ENCOUNTER 2017-12-31 15:12 | Emergency (ER) | payer MEDICARE ==
[~2017-12-31] VITALS: Ht 165.1 cm; Wt 54.4 kg
--- OUTSIDE RECORDS SUMMARY | 2017-12-31 15:22 | XMS REPORT | Encounter Summary ---
Author Author [facility] Organization [facility] Address Unknown Phone Unavailable Care Team Providers Care Residency Program Coordinator Name Role Phone Prosper Arenas MD PCP Reason for Visit * Reason Comments Heme/Onc Care Encounter Details Date Type Department Care Team Description 11/02/2017 [facility] Bj Fajardo MD Encounter [facility] Center - BMT [address] [facility] Treatment [address] [place] [address] [address] [place] [address] Social History Tobacco Use Types Packs/Day Years Used Date Former Smoker Cigarettes 1.5 5 Quit: 11/02/1972 Smokeless Tobacco: Never Used Sex Assigned at Date Recorded Not on file as of this encounter Last Filed Vital Signs Vital Sign Reading Time Taken Blood Pressure 130/77 11/02/2017 5:20 PM CDT Pulse 74 11/02/2017 5:20 PM CDT Temperature - - Respiratory Rate - - Oxygen Saturation 98% 11/02/2017 5:20 PM CDT Inhaled Oxygen - - Concentration Weight - - Height - - Body Mass Index - - in this encounter Medications at Time of Discharge Medication Sig. Disp. Refills Start Date End Date acyclovir (ZOVIRAX) 400 Take 400 mg by mouth 10/07/2017 mg tablet twice daily. diphenoxylate/atropine Take 1 tablet by mouth 10/07/2017 (LOMOTIL) 2.5/0.025 mg daily as needed. tablet fludrocortisone Take 1 tablet by mouth 60 tablet 2 11/02/2017 (FLORINEF) 0.1 mg daily. can go up by 1 tabletIndications: tablet each week Multiple myeloma not having achieved remission (HCC) HYDROcodone/acetaminophen Take 1 tablet by mouth 10/07/2017 (NORCO) 7.5/325 mg tablet every 4 hours as needed LANTUS SOLOSTAR U-100 Inject 35 Units under the 10/07/2017 INSULIN 100 unit/mL (3 skin at bedtime daily. mL) injection PEN megestrol (MEGACE) 20 mg Take 2 tablets by mouth 10/29/2017 tablet every morning. as of this encounter Progress Notes * Joelle Noland RN - 11/02/2017 6:23 PM CDT History of relapsed multiple myeloma, present in clinic as new patient with . Patient added on for treatment due to hypotension. Port accessed by RN Myranda Bethea, due to no blood return Alteplase ordered and placed in port. After 1 hour, no blood return. This RN flushed with 30 ml of NS, blood return obtained, labs collected and sent. Labs reviewed after patient left clinic. Potassium level was low and was not replaced. Dr. Love and PTC Dolores Ortiz notified of missed potassium level. IV fluids of NS infusing via port at 500ml/hr. Patient and caregiver expressed concern for 2.[address] tonight and caregivers difficulty driving in the dark. At 520, patient stated "we cannot stay, we have to go". At this point 500+ml of NS has infused. BP rechecked 130/87. Patient reports feeling better. RN educated patient on orthostatic hypotension. Verbalized understanding. Patient reports has doctors appointment in [place] tomorrow. Port de-accessed and packed with heparin per protocol. Patient exiting clinic via wheelchair with caregiver. * Myranda Bethea RN - 11/02/2017 3:34 PM CDT Pt added on for port access, fluids, and labs. Port accessed per sterile protocol. No blood return. 2mg alteplase injected into port. Report and care transferred to Brittany Noland RN at 1530. in this encounter Miscellaneous Notes * Addendum Note - Mai Clark - 11/02/2017 11:59 PM CDT Encounter addended by: Mai Clark on: 11/08/2017 11:37 AM
Actions taken: Charge Capture section accepted * Addendum Note - Joelle Noland RN - 11/02/2017 6:40 PM CDT Encounter addended by: Joelle Noland RN on: 11/02/2017 6:40 PM
Actions taken: Flowsheet accepted, Charge Capture section accepted, Visit Navigator Flowsheet section accepted in this encounter Plan of Treatment Not on fileas of this encounter Procedures Procedure Name Priority Date/Time Associated Diagnosis Comments TOTAL PROTEIN SEP Routine 11/02/2017 Multiple myeloma not Results for this 4:20 PM CDT having achieved remission procedure are in the ([facility]) results section. TROPONIN-I Routine 11/02/2017 Multiple myeloma not Results for this 4:20 PM CDT having achieved remission procedure are in the ([facility]) results section. IMMUNOFIXATION, SERUM Routine 11/02/2017 Multiple myeloma not Results for this (IFES) 4:20 PM CDT having achieved remission procedure are in the ([facility]) results section. KAPPA/LAMBDA FREE LIGHT Routine 11/02/2017 Multiple myeloma not Results for this CHAINS 4:20 PM CDT having achieved remission procedure are in the ([facility]) results section. CBC AND DIFF Routine 11/02/2017 Multiple myeloma not Results for this 4:20 PM CDT having achieved remission procedure are in the ([facility]) results section. TYPE & CROSSMATCH Routine 11/02/2017 Multiple myeloma not Results for this 4:20 PM CDT having achieved remission procedure are in the ([facility]) results section. IMMUNOGLOBULINS-IGA,IGG,I Routine 11/02/2017 Multiple myeloma not Results for this GM 4:20 PM CDT having achieved remission procedure are in the ([facility]) results section. C REACTIVE PROTEIN (CRP) Routine 11/02/2017 Multiple myeloma not Results for this 4:20 PM CDT having achieved remission procedure are in the ([facility]) results section. ELECTROPHORESIS-SERUM Routine 11/02/2017 Multiple myeloma not Results for this PROTEIN 4:20 PM CDT having achieved remission procedure are in the ([facility]) results section. BNP (B-TYPE NATRIURETIC Routine 11/02/2017 Encounter for screening Results for this PEPTI) 4:20 PM CDT for cardiovascular procedure are in the disorders results section. Multiple myeloma not having achieved remission (HCC) MAGNESIUM Routine 11/02/2017 Multiple myeloma not Results for this 4:20 PM CDT having achieved remission procedure are in the ([facility]) results section. LDH-LACTATE DEHYDROGENASE Routine 11/02/2017 Multiple myeloma not Results for this 4:20 PM CDT having achieved remission procedure are in the (HCC) results section. BETA 2 MICROGLOBULIN Routine 11/02/2017 Multiple myeloma not Results for this 4:20 PM CDT having achieved remission procedure are in the (HCC) results section. COMPREHENSIVE METABOLIC Routine 11/02/2017 Multiple myeloma not Results for this PANEL 4:20 PM CDT having achieved remission procedure are in the ([facility]) results section. in this encounter Results * TYPE & CROSSMATCH (11/02/2017 4:20 PM) Units Ordered 0 [facility] Crossmatch Expires 11/05/2017 [facility] Record Check 2ND TYPE REQUIRED [facility] ABO/RH(D) O POS [facility] Antibody Screen NEG [facility] Specimen Blood Performing Organization Address [facility] Phone [facility] [address] [place] [address] * IMMUNOFIXATION, SERUM (IFES) (11/02/2017 4:20 PM) Immuno Fix-Serum IGG LAMBDA PARAPROTEIN [facility] Pathologist Signature INTERPRETED BY NEAL FIERRO M.D. [facility] By the PATH SIGNATURE ABOVE, I attest that I have personally formulated the final interpretation expressed in this report and that the above diagnosis is based upon my examination of the slides and/or other material indicated in this report. Specimen Blood Performing Organization Address [facility] Phone Number [facility] [address] [place] [address] * C REACTIVE PROTEIN (CRP) (11/02/2017 4:20 PM) C-Reactive Protein 0.22 <1.0 MG/DL [facility] Specimen Blood Performing Organization Address [facility] Phone Number [facility] [address] [place] [address] * KAPPA/LAMBDA FREE LIGHT CHAINS (11/02/2017 4:20 PM) [place], FLC 1.65 0.33 - 1.94 MG/DL [facility] Comment: Freelite results should always be interpreted in conjunction with other laboratory tests and clinical evidence.The possibility of Antigen Excess exists and can cause Immunoassays to under estimate very high concentrations of antigen. Any discordant results should be discussed with Dr. Kimble. [place], FLC 2.16 0.57 - 2.63 MG/DL [facility] [place]/Lambda FLC 0.76 0.26 - 1.65 [facility] Specimen Blood Performing Organization Address [facility] Phone Number [facility] [address] [place] [address] * LDH-LACTATE DEHYDROGENASE (11/02/2017 4:20 PM) Lactate Dehydrogenase 137 100 - 210 U/L [facility] Specimen Blood Performing Organization Address [facility] Phone Number [facility] [address] [place] [address] * IMMUNOGLOBULINS-IGA,IGG,IGM (11/02/2017 4:20 PM) IgG 779 762 - 1,488 MG/DL [facility] IgA 128 70 - 390 MG/DL [facility] IgM 38 38 - 328 MG/DL [facility] Specimen Blood Performing Organization Address [facility] Phone Number [facility] [address] [place] [address] * BETA 2 MICROGLOBULIN (11/02/2017 4:20 PM) B2 Microglobulin 3.5 (H) 0.8 - 2.3 MG/L [facility] Specimen Blood Performing Organization Address [facility] Phone Number [facility] [address] [place] [address] * ELECTROPHORESIS-SERUM PROTEIN (11/02/2017 4:20 PM) Total Protein-SEP 6.3 6.0 - 8.0 G/DL [facility] Albumin % 55.3 48 - 68 % [facility] Alpha 1 % 4.1 2 - 6 % [facility] Alpha 2 % 13.6 5 - 15 % [facility] Beta %,Serum 14.1 9 - 17 % [facility] Gamma % 12.9 9 - 21 % [facility] Paraprotein 0.18 G/DL [facility] Interpretation - SEP SPIKE, PROBABLY MONOCLONAL, IN [facility] BETA/GAMMA REGION(S) Pathologist Signature INTERPRETED BY NEAL FIERRO M.D. [facility] By the PATH SIGNATURE ABOVE, I attest that I have personally formulated the final interpretation expressed in this report and that the above diagnosis is based upon my examination of the slides and/or other material indicated in this report. Performing Organization Address [facility]/Zipcode Phone Number [facility] [address] [place] [address] * TOTAL PROTEIN SEP (11/02/2017 4:20 PM) Total Protein 6.3 6.0 - 8.0 g/dL [facility] Performing Organization Address [facility] Phone Number [facility] [address] [place] [address] * TROPONIN-I (11/02/2017 4:20 PM) Troponin-I <0.01 0.0 - 0.05 NG/ML [facility] Specimen Blood Performing Organization Address [facility] Phone Number [facility] [address] [place] [address] * BNP (B-TYPE NATRIURETIC PEPTI) (11/02/2017 4:20 PM) B Type Natriuretic 16.0 0 - 100 PG/ML [facility] Peptide Specimen Blood Performing Organization Address [facility] Phone Number [facility] [address] [place] [address] * MAGNESIUM (11/02/2017 4:20 PM) Magnesium 1.9 1.6 - 2.6 mg/dL [facility] Specimen Blood Performing Organization Address [facility] Phone Number [facility] [address] [place] [address] * COMPREHENSIVE METABOLIC PANEL (11/02/2017 4:20 PM) Sodium 131 (L) 137 - 147 MMOL/L [facility] Potassium 2.8 (L) 3.5 - 5.1 MMOL/L [facility] Chloride 100 98 - 110 MMOL/L [facility] Glucose 154 (H) 70 - 100 MG/DL [facility] Blood Urea Nitrogen 14 7 - 25 MG/DL [facility] Creatinine 1.04 0.4 - 1.24 MG/DL [facility] Calcium 8.5 8.5 - 10.6 MG/DL [facility] Total Protein 6.1 6.0 - 8.0 G/DL [facility] Total Bilirubin 0.7 0.3 - 1.2 MG/DL [facility] Albumin 3.7 3.5 - 5.0 G/DL [facility] Alk Phosphatase 63 25 - 110 U/L [facility] AST (SGOT) 19 7 - 40 U/L [facility] CO2 22 21 - 30 MMOL/L [facility] ALT (SGPT) 34 7 - 56 U/L [facility] Anion Gap 9 3 - 12 [facility] eGFR Non >60 >60 mL/min [facility] Comment: The eGFR is not validated for use in drug dosing adjustments.Continue to use estimated creatinine clearance per dosing reference text.Please contact the Clinical Pharmacist for questions. eGFR >60 >60 mL/min [facility] Comment: The eGFR is not validated for use in drug dosing adjustments.Continue to use estimated creatinine clearance per dosing reference text.Please contact the Clinical Pharmacist for questions. Specimen Blood Performing Organization Address [facility] Phone Number [facility] [address] [place] [address] * CBC AND DIFF (11/02/2017 4:20 PM) White Blood Cells 4.2 (L) 4.5 - 11.0 K/UL [facility] RBC 3.77 (L) 4.4 - 5.5 M/UL [facility] Hemoglobin 12.1 (L) 13.5 - 16.5 GM/DL [facility] Hematocrit 34.7 (L) 40 - 50 % [facility] MCV 92.0 80 - 100 FL [facility] MCH 32.2 26 - 34 PG [facility] MCHC 35.0 32.0 - 36.0 G/DL [facility] RDW 13.3 11 - 15 % [facility] Platelet Count 186 150 - 400 K/UL [facility] MPV 7.4 7 - 11 FL [facility] Neutrophils 58 41 - 77 % [facility] Lymphocytes 19 (L) 24 - 44 % [facility] Monocytes 20 (H) 4 - 12 % [facility] Eosinophils 2 0 - 5 % [facility] Basophils 1 0 - 2 % [facility] Absolute Neutrophil Count 2.40 1.8 - 7.0 K/UL [facility] Absolute Lymph Count 0.80 (L) 1.0 - 4.8 K/UL [facility] Absolute Monocyte Count 0.80 0 - 0.80 K/UL [facility] Absolute Eosinophil Count 0.10 0 - 0.45 K/UL [facility] Absolute Basophil Count 0.10 0 - 0.20 K/UL [facility] Specimen Blood Performing Organization Address [facility] Phone Number [facility] [address] [place] [address] in this encounter Visit Diagnoses Diagnosis Multiple myeloma not having achieved remission (HCC) Multiple myeloma, without mention of having achieved remission Encounter for screening for cardiovascular disorders Screening for other and unspecified cardiovascular conditions Administered Medications Medication Order MAR Action Action Date Dose Rate Site alteplase (CATHFLO ACTIVASE) injection 2 Given 11/02/2017 2 mg mg 15:12 CDT 2 mg, Injection, ONCE, 1 dose, Thu11/02/17 at 1515 heparin lock flush PF syringe 500 Units Given 11/02/2017 500 Units 500 Units, Intravenous, ONCE, 1 dose, 17:24 CDT 11/02/17 at 1730, NOTE: This is a HIGH ALERT Medication. sodium chloride 0.9 % infusion Given - New 11/02/2017 1,000 mL 500 mL/ hr 1,000 mL, 1,000 mL, Intravenous, at 500 Bag 16:21 CDT mL/hr, ONCE, 1 dose, Thu11/02/17 at 1445, Cancer Center Infusion in this encounter
--- OUTSIDE RECORDS SUMMARY | 2017-12-31 15:22 | XMS REPORT | Clinical Summary ---
Author Author [facility] Organization [facility] Address Unknown Phone Unavailable Care Team Providers Care Digital Sales Representative Name Role Phone Prosper Arenas MD PCP Source Comments Some departments are not documenting in the electronic medical record. If you do not see the information that you expected, contact Release of Information in the Health Information Management department at [phone] for further assistance in locating additional records.[facility] Allergies Active Allergy Reactions Severity Noted Date Comments Codeine HIVES Medium 11/02/2017 Propoxyphene HIVES Medium 11/02/2017 N-Acetaminophen Erythromycin STOMACH UPSET Low 11/02/2017 Levofloxacin STOMACH UPSET Low 11/02/2017 Current Medications Prescription Sig. Disp. Refills Start End Date Status Date acyclovir (ZOVIRAX) 400 Take 400 mg by mouth 10/08/19 Active mg tablet twice daily. 18 diphenoxylate/atropine Take 1 tablet by mouth 10/08/19 Active (LOMOTIL) 2.5/0.025 mg daily as needed. 18 tablet HYDROcodone/acetaminophen Take 1 tablet by mouth 10/08/19 Active (NORCO) 7.5/325 mg tablet every 4 hours as needed 18 LANTUS SOLOSTAR U-100 Inject 35 Units under the 10/08/19 Active INSULIN 100 unit/mL (3 skin at bedtime daily. 18 mL) injection PEN megestrol (MEGACE) 20 mg Take 2 tablets by mouth 10/30/19 Active tablet every morning. 18 fludrocortisone Take 1 tablet by mouth 60 tablet 2 11/03/19 Active (FLORINEF) 0.1 mg daily. can go up by 1 18 tabletIndications: tablet each week Multiple myeloma not having achieved remission (HCC) potassium chloride SR Take 1 tablet by mouth 30 tablet 6 08/07/20 Active (K-DUR) 20 mEq daily. Take with a meal 18 tabletIndications: and a full glass of hypokalemia, 11/03/17 take water. 40 meq (2 tablets) otherwise take 20meq (1 tablet) daily Active Problems Not on file Encounters Date Type Specialty Care Team Description 11/03/2017 Telephone Oncology Dolores Shepard RN BMT Follow-up 11/03/2017 Orders Only Oncology Dolores Shepard RN 11/02/2017 Hospital Oncology Bj Fajardo MD Encounter 11/02/2017 Nurse Only Oncology Marivel Love MD Multiple myeloma, remission status unspecified (HCC) (Primary Dx) 11/02/2017 Office Visit Oncology Marivel Love MD Multiple myeloma in relapse (HCC) (Primary Dx) 11/02/2017 Documentation Taylor Manjarrez 11/02/2017 Documentation Oncology Dolores Shepard RN Multiple myeloma not having achieved remission (HCC) (Primary Dx); Encounter for screening for cardiovascular disorders 10/30/2017 Hospital Lab Marivel Love MD Multiple myeloma not Encounter having achieved remission (HCC) 10/29/2017 Ancillary Radiology Outpatient, Radiologist Diagnosis unknown Orders 10/15/2017 Telephone Oncology Tessa Casillas RN Navigation Assessment 10/15/2017 Documentation Oncology Tessa Casillas RN 10/15/2017 Orders Only Oncology Tessa Casillas RN Multiple myeloma , remission status unspecified (HCC) (Primary Dx) from Last 3 Months Family History Medical History Relation Name Comments Diabetes Brother Stroke Brother Diabetes Father Heart Disease Father Unknown to Patient Maternal Aunt Unknown to Patient Maternal Grandfather Unknown to Patient Maternal Grandmother Unknown to Patient Maternal Uncle Cancer-Colon Mother Diabetes Mother Unknown to Patient Paternal Aunt Unknown to Patient Paternal Grandfather Unknown to Patient Paternal Grandmother Unknown to Patient Paternal Uncle Diabetes Sister Relation Name Status Comments Brother Alive Father Alive Maternal Aunt Maternal Grandfather Maternal Grandmother Maternal Uncle Mother Paternal Aunt Paternal Grandfather Paternal Grandmother Paternal Uncle Sister Social History Tobacco Use Types Packs/Day Years Used Date Former Smoker Cigarettes 1.5 5 Quit: 11/02/1972 Smokeless Tobacco: Never Used Sex Assigned at Date Recorded Not on file Last Filed Vital Signs Vital Sign Reading Time Taken Blood Pressure 130/77 11/02/2017 5:20 PM CDT Pulse 74 11/02/2017 5:20 PM CDT Temperature 36.4 C (97.5 F) 11/02/2017 1:17 PM CDT Respiratory Rate 14 11/02/2017 1:17 PM CDT Oxygen Saturation 98% 11/02/2017 5:20 PM CDT Inhaled Oxygen - - Concentration Weight 59.1 kg (130 lb 6.4 oz) 11/02/2017 1:17 PM CDT Height 165.1 cm (5' 5") 11/02/2017 1:18 PM CDT Body Mass Index 21.7 11/02/2017 1:17 PM CDT Plan of Treatment Health Maintenance Due Date Last Done Comments HEPATITIS C SCREENING 1950 PHYSICAL (COMPREHENSIVE) 07/16/1958 EXAM PERTUSSIS VACCINE 07/16/1962 TETANUS VACCINE 07/16/1968 COLORECTAL CANCER 07/16/2001 SCREENING SHINGLES RECOMBINANT 07/16/2001 VACCINE (1 of 2) ABDOMINAL AORTIC ANEURYSM 07/16/2016 SCREENING PNEUMONIA (PCV13/PPSV23) 07/16/2016 VACCINES (1 of 2 - PCV13) INFLUENZA VACCINE 10/28/2017 Procedures Procedure Name Priority Date/Time Associated Diagnosis Comments PATHOLOGY REPORTS FROM 12/17/2017 Results for this OUTSIDE SCAN 11:37 AM CDT procedure are in the results section. TYPE & CROSSMATCH Routine 11/02/2017 Multiple myeloma not Results for this 4:20 PM CDT having achieved remission procedure are in the ([facility]) results section. IMMUNOFIXATION, SERUM Routine 11/02/2017 Multiple myeloma not Results for this (IFES) 4:20 PM CDT having achieved remission procedure are in the ([facility]) results section. C REACTIVE PROTEIN (CRP) Routine 11/02/2017 Multiple myeloma not Results for this 4:20 PM CDT having achieved remission procedure are in the ([facility]) results section. KAPPA/LAMBDA FREE LIGHT Routine 11/02/2017 Multiple myeloma not Results for this CHAINS 4:20 PM CDT having achieved remission procedure are in the ([facility]) results section. LDH-LACTATE DEHYDROGENASE Routine 11/02/2017 Multiple myeloma not Results for this 4:20 PM CDT having achieved remission procedure are in the ([facility]) results section. IMMUNOGLOBULINS-IGA,IGG,I Routine 11/02/2017 Multiple myeloma not Results for this GM 4:20 PM CDT having achieved remission procedure are in the ([facility]) results section. BETA 2 MICROGLOBULIN Routine 11/02/2017 Multiple myeloma not Results for this 4:20 PM CDT having achieved remission procedure are in the ([facility]) results section. ELECTROPHORESIS-SERUM Routine 11/02/2017 Multiple myeloma not Results for this PROTEIN 4:20 PM CDT having achieved remission procedure are in the ([facility]) results section. TOTAL PROTEIN SEP Routine 11/02/2017 Multiple myeloma not Results for this 4:20 PM CDT having achieved remission procedure are in the ([facility]) results section. TROPONIN-I Routine 11/02/2017 Multiple myeloma not Results for this 4:20 PM CDT having achieved remission procedure are in the ([facility]) results section. BNP (B-TYPE NATRIURETIC Routine 11/02/2017 Encounter for screening Results for this PEPTI) 4:20 PM CDT for cardiovascular procedure are in the disorders results section. Multiple myeloma not having achieved remission (HCC) MAGNESIUM Routine 11/02/2017 Multiple myeloma not Results for this 4:20 PM CDT having achieved remission procedure are in the ([facility]) results section. COMPREHENSIVE METABOLIC Routine 11/02/2017 Multiple myeloma not Results for this PANEL 4:20 PM CDT having achieved remission procedure are in the ([facility]) results section. CBC AND DIFF Routine 11/02/2017 Multiple myeloma not Results for this 4:20 PM CDT having achieved remission procedure are in the ([facility]) results section. OUTSIDE PATHOLOGY CONSULT 10/30/2017 Results for this 12:10 PM CDT procedure are in the results section. from Last 3 Months Results * PATHOLOGY REPORTS FROM OUTSIDE SCAN (12/17/2017 11:37 AM) Narrative Performed At Ordered by an unspecified provider. * TOTAL PROTEIN SEP (11/02/2017 4:20 PM) Total Protein 6.3 6.0 - 8.0 g/dL [facility] Performing Organization Address City/[facility]/Zipcode Phone Number [facility] [address] [place] [address] * TROPONIN-I (11/02/2017 4:20 PM) Troponin-I <0.01 0.0 - 0.05 NG/ML [facility] [facility] Specimen Blood Performing Organization Address City/[facility]/Zipcode Phone Number [facility] [address] [place] [address] * IMMUNOFIXATION, SERUM (IFES) (11/02/2017 4:20 PM) Immuno Fix-Serum IGG LAMBDA PARAPROTEIN [facility] Pathologist Signature INTERPRETED BY NEAL FIERRO M.D. [facility] By the PATH SIGNATURE ABOVE, I attest that I have personally formulated the final interpretation expressed in this report and that the above diagnosis is based upon my examination of the slides and/or other material indicated in this report. Specimen Blood Performing Organization Address City/[facility]/Zipcode Phone Number [facility] [address] [place] [address] * KAPPA/LAMBDA FREE LIGHT CHAINS (11/02/2017 4:20 PM) [place], FLC 1.65 0.33 - 1.94 MG/DL [facility] Comment: Freelite results should always be interpreted in conjunction with other laboratory tests and clinical evidence.The possibility of Antigen Excess exists and can cause Immunoassays to under estimate very high concentrations of antigen. Any discordant results should be discussed with Dr. Kimble. Lambda, FLC 2.16 0.57 - 2.63 MG/DL [facility] [place]/Lambda FLC 0.76 0.26 - 1.65 [facility] Specimen Blood Performing Organization Address City/[facility] Phone Number [facility] [address] [place] [address] * CBC AND DIFF (11/02/2017 4:20 PM) White Blood Cells 4.2 (L) 4.5 - 11.0 K/UL [facility] RBC 3.77 (L) 4.4 - 5.5 M/UL [facility] Hemoglobin 12.1 (L) 13.5 - 16.5 GM/DL [facility] Hematocrit 34.7 (L) 40 - 50 % [facility] MCV 92.0 80 - 100 FL [facility] MCH 32.2 26 - 34 PG [facility] MCHC 35.0 32.0 - 36.0 G/DL [facility] RDW 13.3 11 - 15 % [facility] Platelet Count 186 150 - 400 K/UL [facility] MPV 7.4 7 - 11 FL [facility] Neutrophils 58 41 - 77 % [facility] Lymphocytes 19 (L) 24 - 44 % [facility] Monocytes 20 (H) 4 - 12 % [facility] Eosinophils 2 0 - 5 % [facility] Basophils 1 0 - 2 % [facility] Absolute Neutrophil Count 2.40 1.8 - 7.0 K/UL [facility] Absolute Lymph Count 0.80 (L) 1.0 - 4.8 K/UL [facility] Absolute Monocyte Count 0.80 0 - 0.80 K/UL [facility] Absolute Eosinophil Count 0.10 0 - 0.45 K/UL [facility] Absolute Basophil Count 0.10 0 - 0.20 K/UL [facility] Specimen Blood Performing Organization Address [facility] Phone Number [facility] [address] [place] [address] * TYPE & CROSSMATCH (11/02/2017 4:20 PM) Units Ordered 0 [facility] Crossmatch Expires 11/05/2017 [facility] Record Check 2ND TYPE REQUIRED [facility] ABO/RH(D) O POS [facility] Antibody Screen NEG [facility] Specimen Blood Performing Organization Address [facility] Phone Number [facility] [address] [place] [address] * IMMUNOGLOBULINS-IGA,IGG,IGM (11/02/2017 4:20 PM) IgG 779 762 - 1,488 MG/DL [facility] IgA 128 70 - 390 MG/DL [facility] IgM 38 38 - 328 MG/DL [facility] Specimen Blood Performing Organization Address [facility] Phone Number [facility] [address] [place] [address] * C REACTIVE PROTEIN (CRP) (11/02/2017 4:20 PM) C-Reactive Protein 0.22 <1.0 MG/DL [facility] Specimen Blood Performing Organization Address [facility] Phone Number [facility] [address] [place] [address] * ELECTROPHORESIS-SERUM PROTEIN (11/02/2017 4:20 PM) Total [...] Gamma % 12.9 9 - 21 % [facility] Paraprotein 0.18 G/DL [facility] Interpretation - SEP SPIKE, PROBABLY MONOCLONAL, IN [facility] BETA/GAMMA REGION(S) Pathologist Signature INTERPRETED BY NEAL FIERRO M.D. [facility] By the PATH SIGNATURE ABOVE, I attest that I have personally formulated the final interpretation expressed in this report and that the above diagnosis is based upon my examination of the slides and/or other material indicated in this report. Performing Organization Address [facility] Phone Number [facility] [address] [place] [address] * BNP (B-TYPE NATRIURETIC PEPTI) (11/02/2017 4:20 PM) B Type Natriuretic 16.0 0 - 100 PG/ML [facility] Peptide Specimen Blood Performing Organization Address [facility] Phone Number [facility] [address] [place] [address] * MAGNESIUM (11/02/2017 4:20 PM) Magnesium 1.9 1.6 - 2.6 mg/dL [facility] Specimen Blood Performing Organization Address [facility] Phone Number [facility] [address] [place] [address] * LDH-LACTATE DEHYDROGENASE (11/02/2017 4:20 PM) Lactate Dehydrogenase 137 100 - 210 U/L [facility] Specimen Blood Performing Organization Address [facility] Phone Number [facility] [address] [place] [address] * BETA 2 MICROGLOBULIN (11/02/2017 4:20 PM) B2 Microglobulin 3.5 (H) 0.8 - 2.3 MG/L [facility] Specimen Blood Performing Organization Address [facility] Phone Number [facility] [address] [place] [address] * COMPREHENSIVE METABOLIC PANEL (11/02/2017 4:20 PM) Sodium 131 (L) 137 - 147 MMOL/L [facility] Potassium 2.8 (L) 3.5 - 5.1 MMOL/L [facility] Chloride 100 98 - 110 MMOL/L [facility] Glucose 154 (H) 70 - 100 MG/DL [facility] Blood Urea Nitrogen 14 7 - 25 MG/DL [facility] Creatinine 1.04 0.4 - 1.24 MG/DL [facility] Calcium 8.5 8.5 - 10.6 MG/DL [facility] Total Protein 6.1 6.0 - 8.0 G/DL [facility] Total Bilirubin 0.7 0.3 - 1.2 MG/DL [facility] Albumin 3.7 3.5 - 5.0 G/DL [facility] Alk Phosphatase 63 25 - 110 U/L [facility] AST (SGOT) 19 7 - 40 U/L [facility] CO2 22 21 - 30 MMOL/L [facility] ALT (SGPT) 34 7 - 56 U/L [facility] Anion Gap 9 3 - 12 [facility] eGFR Non >60 >60 mL/min [facility] Comment: The eGFR is not validated for use in drug dosing adjustments.Continue to use estimated creatinine clearance per dosing reference text.Please contact the Clinical Pharmacist for questions. eGFR >60 >60 mL/min [facility] Comment: The eGFR is not validated for use in drug dosing adjustments.Continue to use estimated creatinine clearance per dosing reference text.Please contact the Clinical Pharmacist for questions. Specimen Blood Performing Organization Address City/State/Zipcode Phone Number [facility] [address] [place] [phone] * OUTSIDE PATHOLOGY CONSULT (10/30/2017 12:10 PM) PATHOLOGY REPORT [facility] [email or web address] Department of Pathology and Laboratory Medicine [address] [place] [address] Surgical Pathology Office:[phone] :[phone] PATHOLOGY CONSULTATION NAME: DOMINIQUE NOGUEIRA Samuel SURG PATH #: [id number] MR #: [id number] ALT ID #: LOCATION: [facility] DATE OF PROCEDURE: 10/30/2017 AGE:67 SEX: M DATE RECEIVED: 10/30/2017 : 1950TIME RECEIVED:12:10 PHYSICIAN: Marivel Love MD DATE OF REPORT: 11/02/2017 COPY TO:DATE OF PRINTIN11/02/2017 OUTSIDE INSTITUTION: [facility] Attn: Path Support [address] [place] [address] [place] [address] ############################## ############################## ############ Final Diagnosis: A. 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 +++ +++ paj/10/30/2017 ############################## ############################## ############ Material Received: A: Outside Slides x8 [id number], [facility], Attn: Path Support, [address], [address], [place] [address] History: 66 year old male Gross Description: A. Received are eight (8) outside slides and a report labeled "[id number]". paj/10/30/2017 Microscopic Description: CBC Data (from 06/11/17):HGB 15.5 (g/dL); RBC 4.9 (m/uL); MCV 92 (FL); RDW 12.7 (%); WBC 4.2 (k/uL); PLT 214 (k/uL). Blood Smear Diff (%): Blood smear not provided. Blood Smear Morphology: Blood smear not provided. Bone Marrow Aspirate/Touch Prep Morphology: Aspirate Adequacy:Suboptimal; absent spicules Touch Prep Adequacy:Not Performed Cellularity:Cannot assess Megakaryocytes:Rare Blasts:Normal Erythroid:Normal Granulocytes:Normal Lymphocytes:Normal Plasma Cells:Increased Bone Marrow Differential Cell Count (%): Blasts:1 Promyelocytes: 0 Myelocytes: 4 Metamyelocytes: 10 Segs/Bands: 25 Eosinophils: 2 Erythroid: 24 Monocytes: 2 Lymphocytes: 22 Plasma cells: 10 M:E ratio: 1.7 Bone Marrow Core Biopsy: Adequacy:Adequate Length:1.7 cm Cellularity:50-60% Megakaryocytes:Normal Hematopoiesis:Resembles aspirate smear Atypical Infiltrates:Mixed interstitial and nodular plasma cell infiltrate Bone Marrow Cell Clot: Adequacy:Not Performed Additional Stains: Iron Stain:Outside aspirate smear shows normal storage iron, decreased sideroblast iron, and no ring sideroblasts. Immunohistochemistry:Outsi de stains on the core section were provided for CD138, kappa, and lambda.CD138 shows 40% involvement by plasma cells in a mixed interstitial and nodular pattern, which are monoclonal lambda. Chromogenic In Situ Hybridization:Not Performed Other Special Stains:Outside reticulin stain on the core section shows mild diffuse fibrosis (WHO grade 1/3). Ancillary Studies: Flow Cytometry:Performed, see separate report.Neoplastic plasma cells (5%; monoclonal lambda). Cytogenetics:Performed, see separate report.Normal. Fluorescence In Situ Hybridization:Not Performed Molecular Genetics:Not Performed If immunohistochemical stains and/or in situ hybridization are cited in this report, the performance characteristics were determined by the Department of Pathology and Laboratory Medicine of the [facility] ([employer]) in compliance with CLIA'88 regulations.Some of these tests rely on the use of "analyte specific reagents" and are subject to specific labeling requirements by the FDA. Known positive and negative control tissues demonstrate appropriate staining.Results should be interpreted with caution given the likelihood of false negativity on decalcified specimens.This testing was developed by the Department of Pathology and Laboratory Medicine of the [facility].It has not been cleared or approved by the FDA.The FDA has determined that such clearance or approval is not necessary. Performing Organization Address City/State/Zipcode Phone Number [facility] RESULTS from Last 3 Months
--- OUTSIDE RECORDS SUMMARY | 2017-12-31 15:22 | XMS REPORT | Encounter Summary ---
Author Author [facility] Organization [facility] Address Unknown Phone Unavailable Care Team Providers Care Fire Systems Inspector Name Role Phone Prosper Arenas MD PCP Encounter Details Date Type Department Care Team Description 11/02/2017 Documentation Case Management - Social Taylor Manjarrez Work [address] [place] [address] Social History Tobacco Use Types Packs/Day Years Used Date Former Smoker Cigarettes 1.5 5 Quit: 11/02/1972 Smokeless Tobacco: Never Used Sex Assigned at Date Recorded Not on file as of this encounter Progress Notes * Taylor Manjarrez - 11/02/2017 4:14 PM CDT Continuum of Care Case Management Note Plan: Met with patient for new patient appointment. Interventions: SW met with patient and his significant other for a new patient visit. They live in [place], [place], about two hours away and patient was diagnosed with MM in 2004. SW discussed SW role on the BMT team, provided business card and discussed lodging at [facility]. Patient verbalized understanding that they will need a referral to stay at [facility]. Provided information about applying for assistance through [facility] co-pay assistance and discussed that patient can apply for assistance by phone. Taylor Manjarrez [facility] in this encounter Plan of Treatment Not on fileas of this encounter Visit Diagnoses Not on filein this encounter
--- OUTSIDE RECORDS SUMMARY | 2017-12-31 15:22 | XMS REPORT | Encounter Summary ---
Author Author [facility] Organization [facility] Address Unknown Phone Unavailable Care Team Providers Care Diabetologist Name Role Phone Prosper Arenas MD PCP Reason for Visit * Reason Comments BMT Follow-up Encounter Details Date Type Department Care Team Description 11/03/2017 Telephone [facility] Dolores Shepard RN BMT Follow-up Cancer Center - BMT Exam Cancer Center [facility] [address] [place] [phone] Social History Tobacco Use Types Packs/Day Years Used Date Former Smoker Cigarettes 1.5 5 Quit: 11/02/1972 Smokeless Tobacco: Never Used Sex Assigned at Date Recorded Not on file as of this encounter Miscellaneous Notes * Telephone Encounter - Dolores Shepard RN - 11/03/2017 1:25 PM CDT called patient with result of low potassium on labs from 11/02/17. Per Dr. Love, patient to take 40 meq potassium today, then 20 meq daily. Script sent to patient's local pharmacy. Patient agreed with plan and verbalized understanding. Dolores Shepard RN, BSN, BMTCN Roll Up Machine Operator [phone] [email or web address] in this encounter Plan of Treatment Not on fileas of this encounter Visit Diagnoses Not on filein this encounter
--- OUTSIDE RECORDS SUMMARY | 2017-12-31 15:22 | XMS REPORT | Encounter Summary ---
Author Author [facility] Organization [facility] Address Unknown Phone Unavailable Care Team Providers Care Asphalt Paver Name Role Phone Prosper Arenas MD PCP Reason for Visit * Reason Comments Heme/Onc Care Encounter Details Date Type Department Care Team Description 11/02/2017 Nurse Only [facility] Marivel Love MD Multiple myeloma, Cancer Center - BMT Exam [address] [facility] [address] remission status Cancer Center [facility] [address] unspecified (HCC) [address] [place] [address] (Primary Dx) [phone] [place] [address] [phone] Social History Tobacco Use Types Packs/Day Years Used Date Former Smoker Cigarettes 1.5 5 Quit: 11/02/1972 Smokeless Tobacco: Never Used Sex Assigned at Date Recorded Not on file as of this encounter Plan of Treatment Not on fileas of this encounter Visit Diagnoses Diagnosis Multiple myeloma, remission status unspecified (HCC) - Primary
--- OUTSIDE RECORDS SUMMARY | 2017-12-31 15:22 | XMS REPORT | Encounter Summary ---
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 Paul Gonzalez RN Multiple myeloma not Cancer Center - BMT Exam having achieved remission [facility] ([facility]) (Primary Dx); [id number] En[address] for [address] [place] [address] disorders [phone] Social History Tobacco Use Types Packs/Day Years Used Date Former Smoker Cigarettes 1.5 5 Quit: 11/02/1972 Smokeless Tobacco: Never Used Sex Assigned at Date Recorded Not on file as of this encounter Progress Notes * Paul Gonzalez RN - 11/02/2017 1:57 PM CDT Formatting of this note may be different from the original. Dominique Kim is a 67 y.o. male in initial consultation with Dr. Love. Jo, significant other, accompanied patient. Diagnosis: IgG Lambda MM ISS 3 Date of diagnosis: 02/2014 (MGUS) 03/2014 MM Cytogenetics/FISH at diagnosis: Cyto: 46,XY[20] (05/2017) Pertinent medical/surgical hx: Allergies: Codeine and Levaquine Family Hx: Mother of unknown malignancy, sister had breast cancer Medical Hx: [place] (2006), left femur fracture (2003) Surgical Hx: Intramedullary chapo placed for left femur fracture (2003), coronary artery bypass (2006), carpal tunnel surgery (1994), left leg fracture repair ( 1992), hernia repair (2003). Social Hx: former smoker (quit 1972), , 4 children Referring physician/phone: self/Mark Au Jr., MD Prior therapy: pulse decadron 2014, Revlimid with decadron, treated from 09/01/06 to 07/25/14, 07/07/17 RVD (now s/p 5 cycles) Current therapy: none Plan: fluids (hypotension) and labs today, recommending Sima/Sammy/Dex with Dr. Mark Au Jr. x 4 then if KPS has improved would consider disease Testing: standard Research/studies: n/a Donor Options (if applicable): n/a Social Situation: lives in [place], [place] with his significant other of many years, Jo Insurance: Medicare Pretransplant Coordinator: PAUL GONZALEZ RN Last Mammogram (Date/where) n/a Last Colonoscopy (date) not asked I have reviewed the distress thermometer and needs assessment, including physical, psychological, social, spiritual and behavioral needs. The patient completed the assessment during this visit to identify psychosocial needs that may interfere with the patient's plan of care. I have made the following referrals based on this assessment and discussion with the patient: Patient declined at this time Copies of transplant informational materials, consents, and coordinator contact information given to patient. PAUL GONZALEZ RN in this encounter Plan of Treatment Not on fileas of this encounter Results * TYPE & CROSSMATCH (11/02/2017 4:20 PM) Units Ordered 0 [facility] Crossmatch Expires 11/05/2017 [facility] Record Check 2ND TYPE REQUIRED [facility] ABO/RH(D) O POS [facility] Antibody Screen NEG [facility] Specimen Blood Performing Organization Address City/[facility] Phone Number [facility] [address] [place] [address] * IMMUNOFIXATION, SERUM (IFES) (11/02/2017 4:20 PM) Immuno Fix-Serum IGG LAMBDA PARAPROTEIN [facility] Pathologist Signature INTERPRETED BY NEAL FIERRO M.D. [facility] By the PATH SIGNATURE ABOVE, I attest that I have personally formulated the final interpretation expressed in this report and that the above diagnosis is based upon my examination of the slides and/or other material indicated in this report. Specimen Blood Performing Organization Address City/[facility]/Zipcode Phone Number [facility] [address] [place] [address] * C REACTIVE PROTEIN (CRP) (11/02/2017 4:20 PM) C-Reactive Protein 0.22 <1.0 MG/DL [facility] Specimen Blood Performing Organization Address [facility] Phone Number [facility] [address] [place] [address] * KAPPA/LAMBDA FREE LIGHT CHAINS (11/02/2017 4:20 PM) [place], FLC 1.65 0.33 - 1.94 MG/DL [facility] Comment: Freelite results should always be interpreted in conjunction with other laboratory tests and clinical evidence.The possibility of Antigen Excess exists and can cause Immunoassays to under estimate very high concentrations of antigen. Any discordant results should be discussed with Dr. Kimble. Lambda, FLC 2.16 0.57 - 2.63 MG/DL [facility] Dyer/Lambda FLC 0.76 0.26 - 1.65 [facility] Specimen Blood Performing Organization Address [facility] Phone Number [facility] [address] [place] [address] * LDH-LACTATE DEHYDROGENASE (11/02/2017 4:20 PM) Lactate Dehydrogenase 137 100 - 210 U/L [facility] Specimen Blood Performing Organization Address [facility] Phone Number [facility] [address] [place] [address] * IMMUNOGLOBULINS-IGA,IGG,IGM (11/02/2017 4:20 PM) IgG 779 762 - 1,488 MG/DL [facility] IgA 128 70 - 390 MG/DL [facility] IgM 38 38 - 328 MG/DL [facility] Specimen Blood Performing Organization Address [facility] Phone Number [facility] [address] [place] [address] * BETA 2 MICROGLOBULIN (11/02/2017 4:20 PM) B2 Microglobulin 3.5 (H) 0.8 - 2.3 MG/L [facility] Specimen Blood Performing Organization Address [facility] Phone Number [facility] [address] [place] [address] * ELECTROPHORESIS-SERUM PROTEIN (11/02/2017 4:20 PM) Total Protein-SEP 6.3 6.0 - 8.0 G/DL [facility] Albumin % 55.3 48 - 68 % [facility] Alpha 1 % 4.1 2 - 6 % [facility] Alpha 2 % 13.6 5 - 15 % [facility] Beta %,Serum 14.1 9 - 17 % [facility] Gamma % 12.9 9 - 21 % [facility] Paraprotein 0.18 G/DL [facility] Interpretation - SEP SPIKE, PROBABLY MONOCLONAL, IN [facility] BETA/GAMMA REGION(S) Pathologist Signature INTERPRETED BY NEAL FIERRO M.D. [facility] By the PATH SIGNATURE ABOVE, I attest that I have personally formulated the final interpretation expressed in this report and that the above diagnosis is based upon my examination of the slides and/or other material indicated in this report. Performing Organization Address City/[facility] Phone Number [facility] [address] [place] [address] * TOTAL PROTEIN SEP (11/02/2017 4:20 PM) Total Protein 6.3 6.0 - 8.0 g/dL [facility] Performing Organization Address [facility] Phone Number [facility] [address] [place] [address] * TROPONIN-I (11/02/2017 4:20 PM) Troponin-I <0.01 0.0 - 0.05 NG/ML [facility] Specimen Blood Performing Organization Address [facility] Phone Number [facility] [address] [place] [address] * BNP (B-TYPE NATRIURETIC PEPTI) (11/02/2017 4:20 PM) B Type Natriuretic 16.0 0 - 100 PG/ML [facility] Peptide Specimen Blood Performing Organization Address [facility] Phone Number [facility] [address] [place] [address] * MAGNESIUM (11/02/2017 4:20 PM) Magnesium 1.9 1.6 - 2.6 mg/dL [facility] Specimen Blood Performing Organization Address [facility]/Zipcode Phone Number [facility] [address] [place] [address] * COMPREHENSIVE METABOLIC PANEL (11/02/2017 4:20 PM) Sodium 131 (L) 137 - 147 MMOL/L [facility] Potassium 2.8 (L) 3.5 - 5.1 MMOL/L [facility] Chloride 100 98 - 110 MMOL/L [facility] Glucose 154 (H) 70 - 100 MG/DL [facility] Blood Urea Nitrogen 14 7 - [...] Blood Performing Organization Address City/State/Zipcode Phone Number [facility] [address] [place] [address] * CBC AND DIFF (11/02/2017 4:20 PM) [...] [facility] Specimen Blood Performing Organization Address City/State/Zipcode Phone Number [facility] [address] [place] [address] in this encounter Visit Diagnoses Diagnosis Multiple myeloma not having achieved remission (HCC) - Primary Multiple myeloma, without mention of having achieved remission Encounter for screening for cardiovascular disorders Screening for other and unspecified cardiovascular conditions
--- OUTSIDE RECORDS SUMMARY | 2017-12-31 15:22 | XMS REPORT | Encounter Summary ---
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
--- OUTSIDE RECORDS SUMMARY | 2017-12-31 15:23 | XMS REPORT | Encounter Summary ---
Author Author [facility] Organization [facility] Address Unknown Phone Unavailable Care Team Providers Care Deputy Controller Name Role Phone Prosper Arenas MD PCP Reason for Visit * Reason Comments Heme/Onc Care * Consult, Test & Treat (Routine) Status Reason Specialty Diagnoses / Referred By Referred To Procedures Contact Contact Pending Review Hematology and Diagnoses Self, Referral Marivel oLve MD Oncology / myeloma, self [address] referral, [address] insurance [address] Medicare/[place] [address] Medicaid Phone: pending, [place] [phone] P rocedures NEW PATIENT Encounter Details Date Type Department Care Team Description 11/02/2017 Office Visit [facility] Marivel Love MD Multiple myeloma in Cancer Center - BMT Exam [address] relapse (HCC) ([facility] [place] [address] Dx) [address] [place] [address] [address] [phone] [place] [address] [phone] Social History Tobacco Use Types Packs/Day Years Used Date Former Smoker Cigarettes 1.5 5 Quit: 11/02/1972 Smokeless Tobacco: Never Used Sex Assigned at Date Recorded Not on file as of this encounter Last Filed Vital Signs Vital Sign Reading Time Taken Blood Pressure 82/46 11/02/2017 1:17 PM CDT Pulse 95 11/02/2017 1:17 PM CDT Temperature 36.4 C (97.5 F) 11/02/2017 1:17 PM CDT Respiratory Rate 14 11/02/2017 1:17 PM CDT Oxygen Saturation 96% 11/02/2017 1:17 PM CDT Inhaled Oxygen - - Concentration Weight 59.1 kg (130 lb 6.4 oz) 11/02/2017 1:17 PM CDT Height 165.1 cm (5' 5") 11/02/2017 1:18 PM CDT Body Mass Index 21.7 11/02/2017 1:17 PM CDT in this encounter Progress Notes * Marivel Love MD - 11/02/2017 1:50 PM CDT Formatting of this note may be different from the original. Name: Dominique Kim : 1950 AGE: 67 y.o. DATE OF SERVICE: 11/02/2017 Subjective: Reason for Visit: Patient with relapsed multiple myeloma currently on RVD, referred to us by Dr. uA for auto HCT consideration Heme/Onc Care Dominique Kim is a 67 y.o. male. Cancer Staging No matching staging information was found for the patient. History of Present Illness Patient is a 67 year old male who was diagnosed with MGUS and referred to Dr. Mark Au in 2003. He presented with left leg swelling and fracture with labs showing anemia and renal failure. A bone marrow biopsy was done on 17/08 with results consistent with myeloma. He was then started on pulse decadron. In August 2006, he had another bone marrow biopsy showing residual disease so he was started on Revlimid with decadron, treated from 09/01/06 to 07/25. In May 2017, he was noted to have increasing M-spike values so a bone marrow biopsy was done on 06/23/17 with 20-25% plasma cell infiltrate. Imaging also showed multiple lytic lesions involving the skull, bilateral humerus, and right femur. On 07/07/17, he started his first cycle of RVD. He is now s/p 5 cycles and is being sent to BMT for transplant options. He comes in the clinic in a wheelchair, has lost significant weight, has been struggling with orthostatic hypotension since starting RVD ? autonomic neuropathy, has been on Midodrine, KARIMI at short distance. He has been off RVD for month with some improvement but still severely deconditioned He is in clinic with his caring significant other, patient agrees he needs to improve his performance status Allergies: Codeine and Levaquine Family Hx: Mother of unknown malignancy, sister had breast cancer Medical Hx: CA (2006), left femur fracture (2003) Surgical Hx: Intramedullary chapo placed for left femur fracture (2003), coronary artery bypass (2006), carpal tunnel surgery (1994), left leg fracture repair ( 1992), hernia repair (2003). Social Hx: former smoker (quit 1972), , 4 children Review of Systems Constitutional: Fatigue weight loss, deconditioning HENT: No congestion, dental problem, ear discharge. Ear pain, tinnitus, facial swelling, mouth sores, postnasal discharge, rhinorrhea, sinus pressure, sore throat, trouble swallowing, or voice change Eyes: No eye discharge, redness, pain, photophobia, or visual changes CVS: Dyspnea on minimal exertion, orthostatic hypotension on midodrine Respiratory: No shortness of breath, wheezing, cough, hemoptysis, or chest tightness Abdomen: No abdominal pain, distension, blood in stool, hematemesis, nausea, vomiting, diarrhea, constipation, or rectal pain : No dysuria, flank pain, frequency, hematuria, urgency MSK: Deconditioning and currently in a wheelchair Endocrine: No cold/ heat intolerance, polyuria, polydipsia, or polyphagia asthenia Dermatology: Dry skin Neurology: Possible autonomic dysfunction Hematologic: No bruising, swelling, or adenopathy Psych: No behavior problem, confusion, mood changes, hallucinations, nervous/ anxiety, sleep disturbances, or suicidal ideation. Objective: acyclovir (ZOVIRAX) 400 mg tablet Take 400 mg by mouth twice daily. diphenoxylate/atropine (LOMOTIL) 2.5/0.025 mg tablet Take 1 tablet by mouth daily as needed. fludrocortisone (FLORINEF) 0.1 mg tablet Take 1 tablet by mouth daily. can go up by 1 tablet each week HYDROcodone/acetaminophen (NORCO) 7.5/325 mg tablet Take 1 tablet by mouth every 4 hours as needed LANTUS SOLOSTAR U-100 INSULIN 100 unit/mL (3 mL) injection PEN Inject 35 Units under the skin at bedtime daily. megestrol (MEGACE) 20 mg tablet Take 2 tablets by mouth every morning. Vitals: 11/02/17 1317 11/02/17 1318 BP: (!) 82/46 Pulse: 95 Resp: 14 Temp: 36.4 C (97.5 F) TempSrc: Oral SpO2: 96% Weight: 59.1 kg (130 lb 6.4 oz) Height: 165.1 cm (65") Body mass index is 21.7 kg/m. Pain Score: Six Pain Loc: Generalized Pain Addressed: Current regimen working to control pain. Patient Evaluated for a Clinical Trial: Patient currently in screening for a treatment clinical trial. Eastern Cooperative Oncology Group performance status is 3, Capable of only limited selfcare, confined to bed or chair more than 50% of waking hours. Physical Exam General: Ill-appearing and frail. Head: Normocephalic, without obvious abnormality, atraumatic Eyes: Conjunctivae/corneas clear. PERRL, EOMs intact. Throat: Dry mucosa Neck: Supple, symmetrical, trachea midline, no adenopathy, thyroid: no enlargement/tenderness/nodules, no carotid bruit and no JVD Lungs: Clear to auscultation bilaterally Heart: Regular rate and rhythm, S1, S2 normal, no murmur, click rub or gallop Abdomen: Soft, non-tender. Bowel sounds normal. No masses. No organomegaly. Extremities: Extremities normal, atraumatic, no cyanosis or edema Skin: Skin color, texture, turgor normal. No rashes or lesions Lymph nodes: Cervical, supraclavicular and axillary nodes normal Neurologic: CNII - XII intact. Normal strength, sensation and reflexes throughout. Musculoskeletal: Normal / Negative Psych: Normal Timeline of Events: DATES 02/26/04 Lab CBC: WBC 11.6, RBC 3.78, Hgb 13.3, Hct 36.9, Plt 132 Chem: BUN 155, creatinine 1.6, TP 10.4, albumin 3.8, CA 8.8 03/09/04 Lab SPEP: M-spike 3.3, Interpretation: An abnormal protein band is detected in the gamma globulins and may represent a monoclonal immunoglobulin or light chain. 03/12/04 Whole body bone scan Increased activity in both shoulders and both hips which is rather prominent. This is somewhat unusual in character. However, this is unchanged from 11/09/03. There is also some increased activity in the ischia bilaterally which is unchanged from the previous exam. Arthritis is in the differential diagnosis. Renal osteodystrophy is also in the differential diagnosis. Focal rib lesions are most likely on the basis of trauma. Mild increased activity in the left femur is likely associated with the intramedullary chapo and chronic thickening of the cortex due to previous fracture. This is identical to 11/09/03. No evidence of osteomyelitis is seen. 03/13/04 Skeletal Survey There is mild demineralization. There is accentuation of trabecula in multiple bones, including ribs, clavicles, spine. Marked abnormality of the skull is seen with granular-type appearance. The findings strongly suggest hyperparathyroidism. There is absence of joint space narrowing in the shoulders or hips. 03/20/04 BM BX (VCSF) Diagnosis: 1. 70% marrow cellularity. 2. Stainable iron not seen. 3. Abnormal lymphocytic cell infiltrate, consistent with diagnosis involvement of marrow by B-cell lymphoma. Special stains: The CD79a is negative, which points away from the diagnosis of myeloma. The lambda stain is strongly positive and the kappa stain is overtly negative. These findings in aggregate point toward presence of a B-cell lymphocytic lymphoma. 03/25/04 Lab UPEP - 24 hour: TP 8605, interpretation: two abnormal bands migrating in the gamma region. Estimated concentrations are 4% and 54%. Urine Immunofixation: Two free lambda Bence-Grey proteins migrating in the gamma region. 03/31/04 Lab Immunoglobulins: IgA 47, IgG 3946, IgM 9 04/19/04 BM BX (VCSF) Diagnosis: 1. Marrow involvement by plasma cells neoplasm, consistent with multiple myeloma. 2. Hypercellular marrow (~60%) with markedly decreased trilineage hematopoiesis. 3. 19.2% plasma cells in aspirate smear and 30-50% in biopsy. 4. CD45-/CD38+/CD138+/CD56+/lamdba monoclonal immunophenotype by flow cytometry. 5. Mature lymphocytosis, nonneoplastic by flow cytometry. 6. Patchy to focally diffuse fibrosis. 7. Prominent osteoblastic and osteoclastic activity of bony trabeculae. 8. 2 to 3+ iron stores. Flow: Monoclonal plasma cell population (9%) identified with immunophenotype CD45-/CD56+;CD138+/CD38+/lambda+; consistent with neoplastic plasma cells. 04/30/04 Lab SPEP: TP 8.9, albumin 3.9, M-spike 3.1, Interpretation: Poorly- defined band of restricted protein mobility is dected in the gamma globulins. Serum immunofixation: An IgG lambda monoclonal immunoglobulin I sdetected. FLC: No results found B2M: 19.0 LDH: 141 (100-250) 05/01/04 Cyto and FISH - peripheral Blood Cyto: No mitotic activity FISH: Normal - No deletion of 13q14 or P53 08/27/04 BM BX (VCSF) Diagnosis: 1. Residual myeloma accounting for 25% of marrow cellularity. 2. 80% marrow cellularity with adequate trilineage maturing hematopoiesis and erythroid predominance. 3. Lymphocytosis, favor benign. 4. Patchy osteoblastic and osteoclastic activity of bony trabeculae indicative of osteolytic lesions. 5. 1-2+ iron stores. 02/19/05 BM BX (VCSF) Diagnosis: 1. Hypocellular marrow (~30%) with M:E ratio of 5:1 in biopsy and decreased megakaryopoiesis and erythropoiesis. 2. No evidence of plasmacytosis or residual myeloma. 3. Mild patchy fibrosis. 4. No lymphoid aggregates, granulomas or metastatic tumor. 5. Absent iron stores. 6. Neutrophils in aspirate show mild dysplastic changes, likely chemotherapy related. 09/08/05 Skeletal Survey In the skull there is abnormality with "salt and pepper " appearance. This is diffuse and chronic, similar to 03/13/04. There is demineralization in the spine and long bones. There are prominent trabecula in these bony structures. No solitary defined lytic lesions seen in the spine or long bones. 09/16/05 BM BX (VCSF) Diagnosis: 1. Normocellular for age (40 to 50%) with trilineage maturing hematopoiesis and relatively decreased erythropoiesis (M:E ratio 4-5:1 in biopsy). 2. No evidence of plasmacytosis or residual myeloma. 3. No evidence of lymphocytosis, lymphoid aggregates, granulomas, or metastatic tumor. 4. Slightly decreased (trace to 1+) iron stores with rare ringed sideroblast. 02/24/06 Skeletal Survey Chronic changes in the skull similar to previous study on 09/08/05 and 03/13/04. The appearance is most suspicious of hyperparathyroidism. Clinical correlation needed. Exam is otherwise negative. 03/04/06 BM BX (VCSF) Diagnosis: 1. 30% marrow cellularity with trilineage maturing hematopoiesis. 2. No significant increased blasts. 3. No evidence of plasmacytosis or residual myeloma. 4. Iron stores decreased (trace); no ringed-sideroblasts. 09/01/06 Chemo Started on Revlimid 25 mg and Dex (21 days on, 7 days off) 11/25/06 BM BX Cyto: No metaphases 12/09/06 BM BX Diagnosis: 1. Bone marrow aspirate with evidence of trilineage maturation and approximately 3% plasma cells. 2. Bone marrow biopsy insufficient for morphologic evaluation. 3. Adequate storage iron. 12/15/06 Skeletal Survey 1. There continues to be abnormalities in the skull and proximal right tibia. The lesions in the skull are consistent with myeloma and stable since previous study from 02/24/06. 2. There are no additional significant abnormalities present. 04/10/08 Skeletal Survey 1. There continues to be an abnormality in the skull with so-called "salt and pepper" appearance consistent with myeloma. This is stable since the study from 12/15/06. 2. The minor change in the proximal right tibia visualized on that previous study is not present on today's study. 3. There are no lytic or blasts lesions defined in th bone skeleton otherwise. 04/29/11 Skeletal Survey Salt and pepper type appearance of the skull consistent with multiple myeloma. Otherwise negative. 04/19/14 Lab CBC: WBC 6.3, RBC 5.3, Hgb 16.1, Hct 18.4, Plt 137 Chem: BUN 19, creatinine 2.0, TP 7.4, albumin 3.4, CA 7.8 07/17/14 Lab FLC: [place] 36.5, Lambda 34.7, K/L ratio 10.5 07/25/14 Chemo Stopped Revlimid 06/11/17 Lab CBC: WBC 4.2, RBC 4.9, Hgb 15.5, Hct 45.0, Plt 214 Chem: BUN 14, creatinine 1.42, CA 9.0, TP 8.2, albumin 3.2, allk phos 95, AST 57 , ALT 79 SPEP: TP 7.4, albumin 3.6, M-spike 1.1, Interpretation: Restricted band migrating in the gamma region. Serum Immunofixation: FLC: [place] 18.8, Lambda 142.2, K/L ratio 0.13 B2M: Not done 06/23/17 BM BX Marrow: Plasma cell neoplasm with mildly atypical plasma cells (~ 20-25%). Hypercellular marrow for age (40-70%) with decreased trilineage hematopoiesis. Patchy mild reticulin fibrosis. Storage iron present. Flow: Abnormal/monotypic plasma cell population (5% of sample), consistent with a plasma cell neoplastic process. Increased CD8+ T cells immunophenotypically consistent with T cell large granular lymphocytes/T-LGLs (7.9% of analyzed cells ). Monocytes with partial CD56 expression. Cyto: 46,XY[20] 06/25/17 Lab Immunoglobulins: IgA 283, IgG 64, IgM 1572 06/27/17 Lab UPEP: Abnormal protein band 640 Urine Immunofixation: Free monoclonal lambda band present 07/07/17 Chemo C1 D1 RVD 07/14/17 Skeletal Survey 1. Multiple innumerable lytic changes throughout the bony calvarium, including the mandible consistent with myeloma history. In addition, there are scattered lytic bony changes within the right femur as well as bilateral humeri. 2. Degenerative changes of the cervical, thoracic and lumbar spine without lytic changes or fracture. 07/28/17 Chemo C2 D1 RVD 08/18/17 Chemo C3 D1 RVD 09/08/17 Chemo C4 D1 RVD 09/20/17 CT - Chest/Abd Age indeterminate superior endplate compression fractures of T1, T2, and T3. No definitive acute fracture line is evident. This may relate to the patient's reported history of myeloma. 10/02/17 Chemo C5 D1 RVD 10/07/17 Lab FLC: [place] 206, Lambda 156, K/L ratio 1.32 SPEP: TP 7.6, albumin 4.3, M-spike 0.5, Interpretation: M-spike migrating in the gamma region. 10/20/17 Lab CBC: WBC 4.3, RBC 3.82, Hgb 12.2, Hct 36.8, Plt 262 Chem: BUN 11, creatinine 1.28, TP 6.4, albumin 3.1, CA 8.3 Assessment and Plan: Primary diagnosis: IgG Lambda MM ISS 3 Cytogenetics/FISH at diagnosis: Cyto: 46,XY[20] (05/2017) Prior therapy: pulse decadron 2014, Revlimid with decadron, treated from 09/01/06 to 07/25/14 RVD started 07/07/17 (now s/p 5 cycles) Patient currently status post RVD x 5, M spike improved from 1.1 to 0.5. Unfortunatley he has had significant complications from current therapy including what is likely autonomic neuropathy with orthostatic hypotension and syncope and is on midodrine. Patient has lost ~ 30 pounds and is deconditioned requiring a wheelchair in clinic He has dyspnea with minimal exertion Plan: We will hold off on transplant at this time until KPS and orthostatic hypotension is resolved Planning stem cell harvest in the mean time, of note he has had Rev for many years which may lower chances of stem cell collection Pre-stem cell collection, he needs rpt myeloma serologies and BMBx Patient to see a neurologist and cardiology to address orthostatic hypotension He may also benefit from ACTH stimulation test to rule out adrenal insufficieny PT and OT to address deconditioning Plant Attendant to address weight loss In regards to his myeloma therapy, would recommend switching him to sima based therapy to deepen his remission while he improves his KPS Sima/Pom/Dex x 4 could be an option after stem cell collection, while we await his KPS to improve He will receive 1L IVFin the clinic and we will add fludrocortisone to current midodrine Patient and his family had several insightful questions which were answered to their satisfaction Thank you for allowing us to participate in the care of your patient. Visit Start Time 1350 Visit End Time 1455. Today's visit was prolonged due to additional time spent discussing role of auto HCT, current deconditioning and likely autonomic dysfunction, stem cell collection, need for rpt BMbx, need for cards and neuro follow up, planning for IVF in clinic and prescribing florinef We also went over therapy change to Sima Pom Dex Marivel Love MD High Speed Operatorairplane pilot crop dusting Division of Hematologic Malignancies and Cellular Therapeutics [facility] in this encounter Plan of Treatment Not on fileas of this encounter Visit Diagnoses Diagnosis Multiple myeloma in relapse (HCC) - Primary Multiple myeloma, in relapse
--- OUTSIDE RECORDS SUMMARY | 2017-12-31 15:23 | XMS REPORT | Encounter Summary ---
Author Author [facility] Organization [facility] Address Unknown Phone Unavailable Care Team Providers Care Tube Maker Name Role Phone Prosper Arenas MD PCP Encounter Details Date Type Department Care Team Description 10/30/2017 [facility] Marivel Love MD Multiple myeloma not Encounter [facility] 1st fl [address] having achieved remission [address] [facility] [address] ([facility]) [place] [address] [place] [address] [phone] Social History Tobacco Use Types Packs/Day Years Used Date Never Assessed Sex Assigned at Date Recorded Not on file as of this encounter Medications at Time of Discharge Medication Sig. Disp. Refills Start Date End Date acyclovir (ZOVIRAX) 400 Take 400 mg by mouth 10/07/2017 mg tablet twice daily. diphenoxylate/atropine Take 1 tablet by mouth 10/07/2017 (LOMOTIL) 2.5/0.025 mg daily as needed. tablet HYDROcodone/acetaminophen Take 1 tablet by mouth 10/07/2017 (NORCO) 7.5/325 mg tablet every 4 hours as needed LANTUS SOLOSTAR U-100 Inject 35 Units under the 10/07/2017 INSULIN 100 unit/mL (3 skin at bedtime daily. mL) injection PEN megestrol (MEGACE) 20 mg Take 2 tablets by mouth 10/29/2017 tablet every morning. as of this encounter Plan of Treatment Not on fileas of this encounter Procedures Procedure Name Priority Date/Time Associated Diagnosis Comments PATHOLOGY REPORTS FROM 12/17/2017 Results for this OUTSIDE SCAN 11:37 AM CDT procedure are in the results section. OUTSIDE PATHOLOGY CONSULT 10/30/2017 Results for this 12:10 PM CDT procedure are in the results section. in this encounter Results * PATHOLOGY REPORTS FROM OUTSIDE SCAN (12/17/2017 11:37 AM) Narrative Performed At Ordered by an unspecified provider. * OUTSIDE PATHOLOGY CONSULT (10/30/2017 12:10 PM) PATHOLOGY REPORT [email or web address] Department of Pathology and Laboratory Medicine [address] [place] [address] Surgical Pathology Office:[phone] :[phone] PATHOLOGY CONSULTATION NAME: DOMINIQUE NOGUEIAR SURG PATH #: [id number] MR #: [id number] ALT ID #: LOC[facility] DATE OF PROCEDURE: 10/30/2017 AGE:67 SEX: M DATE RECEIVED: 10/30/2017 : 1950TIME RECEIVED:12:10 PHYSICIAN: Marivel Love MD DATE OF REPORT: 11/02/2017 COPY TO:DATE OF PRINTIN11/02/2017 OUTSIDE INSTITUTION: [facility] Attn: Path Support [address] [facility] [address] [place] [address] ############################## ############################## ############ Final Diagnosis: A. Outside case [id number] (Date Collected: 06/23/2017) Bone marrow, aspirate, biopsy, [...] material indicated in this report. +++ +++ indu/10/30/2017 ############################## ############################## ############ Material Received: A: Outside Slides x8 [id number], [facility], Attn: Path Support, [address], [address], [place] [address] History: 66 year old male Gross Description: A. Received are eight (8) outside slides and a report labeled "[id number]". [facility]/10/30/2017 Microscopic Description: CBC Data (from 06/11/17):HGB 15.5 [...] of Pathology and Laboratory Medicine of the [facility] ([employer]) in compliance with CLIA'88 regulations.Some [...] of Pathology and Laboratory Medicine of the [facility].It has not been cleared or approved by the FDA.The FDA has determined that such clearance or approval is not necessary. Performing Organization Address City/State/Zipcode Phone Number [facility] RESULTS in this encounter Visit Diagnoses Not on filein this encounter Admitting Diagnoses Diagnosis Multiple myeloma not having achieved remission (HCC) Multiple myeloma not having achieved remission
--- OUTSIDE RECORDS SUMMARY | 2017-12-31 15:23 | XMS REPORT | Encounter Summary ---
Author Author [facility] Organization [facility] Address Unknown Phone Unavailable Care Team Providers Care [employer] H[employer] R Instructor Name Role Phone PCP Unavailable Encounter Details Date Type Department Care Team Description 10/15/2017 Documentation [facility] Tessa Casillas RN [facility] [address] [phone] Social History Tobacco Use Types Packs/Day Years Used Date Never Assessed Sex Assigned at Date Recorded Not on file as of this encounter Progress Notes * Tessa Casillas RN - 10/15/2017 9:19 AM CDT Encounter opened for Care Everywhere in this encounter Plan of Treatment Not on fileas of this encounter Visit Diagnoses Not on filein this encounter
--- OUTSIDE RECORDS SUMMARY | 2017-12-31 15:23 | XMS REPORT | Encounter Summary ---
Author Author [facility] Organization [facility] Address Unknown Phone Unavailable Care Team Providers Care Block And Case Maker Name Role Phone Prosper Arenas MD PCP Reason for Visit * Reason Comments Navigation Assessment Encounter Details Date Type Department Care Team Description 10/15/2017 Telephone [facility] Tessa Casillas RN Navigation Assessment [facility] [address] [phone] Social History Tobacco Use Types Packs/Day Years Used Date Never Assessed Sex Assigned at Date Recorded Not on file as of this encounter Miscellaneous Notes * Telephone Encounter - Tessa Casillas RN - 10/15/2017 9:36 AM CDT Formatting of this note may be different from the original. Heme/BMT Navigation Intake Assessment Document Patient Name: Dominique Kmi : 1950 Date of Referral: 10/15/17 Diagnosis & Reason for Visit: Transplant/Treatment Options - Myeloma -MR: [id number] APPOINTMENT: Future Appointments Date Time Provider Department Center 11/02/2017 1:50 PM Marivel Loev MD [facility] Exam 11/02/2017 3:00 PM [facility] EXAM NURSE LAB [facility] Exam 11/02/2017 3:30 PM Khloe Swann [facility] Exam 11/02/2017 4:00 PM Taylor Manjarrez [facility] Exam REFERRING PHYSICIAN: Self-referral INSURANCE: Medicare/[place] Medicaid pending Allergies: Codeine and Levaquine Family Hx: Mother of unknown malignancy, sister had breast cancer Medical Hx: ND (2006), left femur fracture (2003) Surgical Hx: Intramedullary chapo placed for left femur fracture (2003), coronary artery bypass (2006), carpal tunnel surgery (1994), left leg fracture repair ( 1992), hernia repair (2003). Social Hx: former smoker (quit 1972), , 4 children HPI: Patient is a 67 year old male [...] being sent to BMT for transplant options. Timeline of Events: DATES 02/26/04 Lab CBC: [...] albumin 3.4, CA 7.8 07/17/14 Lab FLC: Licking 36.5, Lambda 34.7, K/L ratio 10.5 07/25/14 Chemo Stopped Revlimid 06/11/17 Lab CBC: WBC 4.2, RBC 4.9, Hgb 15.5, Hct 45.0, Plt 214 Chem: BUN 14, creatinine 1.42, CA 9.0, TP 8.2, albumin 3.2, allk phos 95, AST 57 , ALT 79 SPEP: TP 7.4, albumin 3.6, M-spike 1.1, Interpretation: Restricted band migrating in the gamma region. Serum Immunofixation: FLC: [place]icking 18.8, Lambda 142.2, K/L ratio 0.13 B2M: [...] Chemo C5 D1 RVD 10/07/17 Lab FLC: [place] 206, Lambda 156, K/L ratio 1.32 SPEP: TP 7.6, albumin 4.3, M-spike 0.5, Interpretation: M-spike migrating in the gamma region. 10/20/17 Lab CBC: WBC 4.3, RBC 3.82, Hgb 12.2, Hct 36.8, Plt 262 Chem: BUN 11, creatinine 1.28, TP 6.4, albumin 3.1, CA 8.3 Location of Films: [facility] Location of Pathology: [facility] and Patient notified outside pathology slides will be obtained for review by [facility] pathologist and a facility and professional fee will be billed to their insurance. 10/26/17: Requested BM BX # [id number] (06/23/17) from [facility] BM BX #[id number] (12/09/06), BM BX #[id number] (03/04/06), BM BX #[id number] (04/19/04), BM BX #[id number] (03/20/04) from [facility] Pathology. NEEDS Assessment: Genetic Counseling: Not Applicable Nutrition: Patient provided information on all available services Social Work/Financial: formula room worker notified for consultation, Financial counselor notified for consultation and Patient provided information on available services Spiritual & Emotional: Patient provided information on available services Physical: Patient provided information on available services Communication: No needs identified Oncofertility - Females age 40 and under; Males age 50 and under : Not applicable in this encounter Plan of Treatment Not on fileas of this encounter Visit Diagnoses Not on filein this encounter
--- OUTSIDE RECORDS SUMMARY | 2017-12-31 15:23 | XMS REPORT | Encounter Summary ---
Author Author [facility] Organization [facility] Address Unknown Phone Unavailable Care Team Providers Care Paint Mixer Name Role Phone PCP Unavailable Reason for Referral * Transplant Status Reason Specialty Diagnoses / Referred By Referred To Procedures Contact Contact Pending Review Specialty BMT / Oncology Diagnoses Marivel Love MD Shune, Leyla, MD Services Multiple [address] Required myeloma, [address] remission status [address] unspecified [place], [place] ([facility]) Phone: Encounter Details Date Type Department Care Team Description 10/15/2017 Orders Only [facility] Tessa Casillas RN Multiple myeloma, [facility] remission status [facility] unspecified (HCC) [address] (Primary Dx) [place], [place] [phone] Social History Tobacco Use Types Packs/Day Years Used Date Never Assessed Sex Assigned at Date Recorded Not on file as of this encounter Plan of Treatment Name Priority Associated Diagnoses Order Schedule AMB REFERRAL TO BMT PRE-TRANSPLANT Routine Multiple myeloma, Ordered: FINANCIAL COUNSELING remission status unspecified ([facility]) as of this encounter Visit Diagnoses Diagnosis Multiple myeloma, remission status unspecified (HCC) - Primary
--- OUTSIDE RECORDS SUMMARY | 2017-12-31 15:23 | XMS REPORT | Encounter Summary ---
Author Author [facility] Organization [facility] Address Unknown Phone Unavailable Care Team Providers Care Casing Tester Name Role Phone Prosper Arenas MD PCP Encounter Details Date Type Department Care Team Description 10/29/2017 Ancillary Rad Outpatient, Radiologist Diagnosis unknown Orders [address] [place] [address] Social History Tobacco Use Types Packs/Day Years Used Date Never Assessed Sex Assigned at Date Recorded Not on file as of this encounter Plan of Treatment Not on fileas of this encounter Results * GENERAL RAD MISC EXTERNAL IMAGING (07/14/2017) Narrative Performed At This order has been auto finalized and does not contain a result. * GENERAL RAD MISC EXTERNAL IMAGING (04/10/2008) Narrative Performed At This order has been auto finalized and does not contain a result. * GENERAL RAD MISC EXTERNAL IMAGING (12/15/2006) Narrative Performed At This order has been auto finalized and does not contain a result. in this encounter Visit Diagnoses Diagnosis Diagnosis unknown Other unknown and unspecified cause of morbidity or mortality
--- OUTSIDE RECORDS SUMMARY | 2017-12-31 15:27 | XMS REPORT | Clinical Summary ---
Author Author Admin, Kaylynn Organization [facility] [employer] Address Unknown Phone Unavailable Allergies, Adverse Reactions, Alerts Allergy Name Reaction Description Start Date Severity Status Provider ERYTHROMYCIN Stomach cramps Moderate Active Prosper Arenas MD CODEINE Critical Active Maliheh Ziglari REGISTERED VETERINARY TECHNICIAN DARVOCET Critical Active Maliheh Ziglari REGISTERED VETERINARY TECHNICIAN LEVAQUIN Critical Active Maliheh Ziglari REGISTERED VETERINARY TECHNICIAN Conditions or Problems Problem Name Problem Code Onset Date Status Entry Date Provider Comment Standard Description Annotate Diabetes, Type 2 250.00 Resolved Tami Miller placement coordinator mellitus without mention of complication, type [...] type II, uncontrolled 250.02 Active Maliheh Ziglari REGISTERED VETERINARY TECHNICIAN Diabetes mellitus without mention of complication, [...] hyperglycemia 250.00 Active 03/21 Maliheh Ziglari REGISTERED VETERINARY TECHNICIAN Diabetes mellitus without mention of complication, type II or unspecified type, not stated as uncontrolled [facility] use of insulin treatment V58.67 Active Luxiheh Rodrigoglari REGISTERED VETERINARY TECHNICIAN Long-term (current) use of insulin Diabetes mellitus, type II with hypoglycemia 250.80 Active 07/22 Maliheh Ziglari REGISTERED VETERINARY TECHNICIAN Diabetes mellitus with other specified manifestations, type II or unspecified type, not stated as uncontrolled 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 Maliheh Ziglari REGISTERED VETERINARY TECHNICIAN Diabetes mellitus with renal manifestations, type II or unspecified type, not stated as uncontrolled Wellness exam V70.0 Active Dee Palmer APRN Routine general medical examination at a health care facility Fitting and adjustment of vascular catheter V58.81 Active 02/06 Dee Palmer APRN Encounter for fitting and adjustment of vascular catheter Unawareness of hypoglycemia in diabetes mellitus, type II 250.80 Active Maliheh Rodrigoglari REGISTERED VETERINARY TECHNICIAN Diabetes mellitus with other specified manifestations, [...] specified as recurrent) Gastritis Inactive Maliheh Ziglari REGISTERED VETERINARY TECHNICIAN Unspecified gastritis and gastroduodenitis, without mention of hemorrhage Cough 786.2 Active Dee Palmer APRN Cough Multiple myeloma, in relapse 203.02 Active Lexus To LRT Multiple myeloma in relapse Body Mass Index 26.0-26.9 Adult Active Prosper Arenas MD Body Mass Index 26.0-26.9, adult Major depressive disorder, single episode, moderate 296.20 Active Prosper Arenas MD Major depressive disorder, single episode, unspecified degree Weakness present 728.87 Active Anjelica SPRAGUE Muscle weakness (generalized) Diabetes, Type 2 ICD-250.00 Inactive Mekhi Dukes [...] Generic Name NDC Status Provider Patient Instruction MIDODRINE HCL 5 MG ORAL TABLET 1 tab TID MIDODRINE HCL 25590744617 Active Prosper Arenas MD Active ZOFRAN 8 MG ORAL TABLET Take 1 tablet PO Q8H PRN nausea ONDANSETRON HCL 77616363148 Active Shaina Gibson MA Active CALCIUM CITRATE + D TABLET Take 1 tablet PO daily. CALCIUM CITRATE-VITAMIN D TABS 69855782383 Farida iGbson MA Active SIMVASTATIN 40 MG ORAL TABLET Take 1 PO at bedtime. SIMVASTATIN 17615936000 Active Shaina Arthur LE Active RANITIDINE HCL 150 MG ORAL CAPSULE 1 twice a day as needed for heartburn 2017 RANITIDINE HCL 55856312543 Active Shainajhon [place] Active PROCHLORPERAZINE MALEATE 10 MG ORAL TABLET Take 1 tablet every 6hrs, prn, nausea PROCHLORPERAZINE MALEATE 07672959129 Active Shaina Arthur LE Active METOPROLOL SUCCINATE ER 25 MG ORAL TABLET EXTENDED RELEASE 24 HOUR 1 pill by mouth daily for blood pressure METOPROLOL SUCCINATE 26778964889 Active Shainajhon Gibson REY Active MEGESTROL ACETATE 40 MG ORAL TABLET Take 1 tablet daily. MEGESTROL ACETATE 21264179358 Active Shaina [place] REY Active ANTACID CALCIUM 500 MG ORAL TABLET CHEWABLE Take 1 chewable daily. CALCIUM CARBONATE ANTACID 84204504412 Active Shainajhon Gibson REY Active CALCIUM CARBONATE 1250 (500 CA) MG ORAL TABLET CHEWABLE Take 1 tablet daily. CALCIUM CARBONATE 34320026278 Active Shainajhon Gibson REY Active ACYCLOVIR 400 MG ORAL TABLET 1 pill two times daily ACYCLOVIR 38775955135 No Longer Active Prosper Arenas MD Active CITALOPRAM HYDROBROMIDE 20 MG ORAL TABLET 1 daily for depression CITALOPRAM HYDROBROMIDE 80557834680 Active Prosper Arenas MD Active PREDNISONE 20 MG ORAL TABLET 2 tabs daily for 4 days, 1 tab daily for 4 days, 1/2 tab daily for 4 days PREDNISONE 05227945813 No Longer Active Prosper Arenas MD Active AZITHROMYCIN 250 MG ORAL TABLET 2 po qd x 1 day, then 1 po qd x 4 days 05/07 AZITHROMYCIN 62993187622 No Longer Active Dee Palmer APRN Active GUAIFENESIN DM 400-20 MG ORAL TABLET 1 pill by mouth twice daily, if needed for cough DEXTROMETHORPHAN-GUAIFENESIN 50878927749 Active Dee Palmer APRN Active ASPIRIN 81 MG ORAL TABLET 1 po qd ASPIRIN 99598558547 Active Dee Palmer APRN Active CALCIUM 500/D 500-200 MG-UNIT ORAL TABLET one tablet daily CALCIUM CARBONATE-VITAMIN D 37136599674 No Longer Active Dee Palmer APRN Active HYDROCODONE-ACETAMINOPHEN 7.5-325 MG ORAL TABLET 1-2 every 4-6 hrs prn 02/25 HYDROCODONE-ACETAMINOPHEN 58822979592 Active Marina Siddharth BESSY Active ASPIRIN 81 MG ORAL TABLET 1 tablet by mouth daily ASPIRIN 74097946006 No Longer Active [facility] BESSY Active SIMVASTATIN 80 MG ORAL TABLET 1/2 tablet daily SIMVASTATIN 55757327992 No Longer Active Mekhi Dukes MD Active OMEPRAZOLE 20 MG ORAL CAPSULE DELAYED RELEASE 1 qd OMEPRAZOLE 96831778641 No Longer Active Mekhi Dukes MD Active METOPROLOL TARTRATE 25 MG ORAL TABLET 1/2 tablet twice a day METOPROLOL TARTRATE 60287785882 No Longer Active Mekhi Dukes MD Active LISINOPRIL 5 MG ORAL TABLET 1 daily LISINOPRIL 83605492269 No Longer Active Mekhi Dukes MD Active NOVOLOG FLEXPEN 100 UNIT/ML SUBCUTANEOUS SOLUTION PEN-INJECTOR Take 8 units with each meal, add 1u/50 for blood sugars above 150. INSULIN ASPART 57078315213 Active Moy PARISH Active GABAPENTIN 300 MG ORAL CAPSULE 1 tab BID GABAPENTIN 92378225537 Active Tami Miller RN Active PREDNISONE 20 MG ORAL TABLET Take 2 daily for 3 days and then 1 daily for 3 days PREDNISONE 42314754704 No Longer Active Moy PARISH Active BENZONATATE 200 MG ORAL CAPSULE Take 1 tablet 3 times a day as needed for cough BENZONATATE 57319375103 No Longer Active Prosper Arenas MD Active HYDROCHLOROTHIAZIDE 25 MG ORAL TABLET 1 tablet by mouth daily HYDROCHLOROTHIAZIDE 63281321825 No Longer Active Prosper Arenas MD Active ACCU-CHEK JOANNA PLUS IN VITRO STRIP check blood sugars 5x a day, before each meal and bedtime and 15 minutes after treating a low blood. sugar GLUCOSE BLOOD 28370530148 Active Maliheh Ziglari REGISTERED VETERINARY TECHNICIAN Active LANTUS SOLOSTAR 100 UNIT/ML SUBCUTANEOUS SOLUTION PEN-INJECTOR Take 40 units at 7-8pm daily INSULIN GLARGINE 73363190721 Active Maliheh Ziglari REGISTERED VETERINARY TECHNICIAN Active MECLIZINE HCL 25 MG ORAL TABLET 1 daily needed for dizziness 2015 MECLIZINE HCL 01202598747 No Longer Active Maliheh Ziglari REGISTERED VETERINARY TECHNICIAN Active BENZONATATE 200 MG ORAL CAPSULE 1 tab, 2-3 times a day BENZONATATE 27091152303 No Longer Active Maliheh Ziglari REGISTERED VETERINARY TECHNICIAN Active HALOPERIDOL 0.5 MG ORAL TABLET one tablet three times a day HALOPERIDOL 71500737878 No Longer Active Maliheh Ziglari REGISTERED VETERINARY TECHNICIAN Active TRAZODONE HCL 50 MG ORAL TABLET three tablets at bed time TRAZODONE HCL 75752500889 No Longer Active Maliheh Ziglari REGISTERED VETERINARY TECHNICIAN Active REVLIMID 25 MG ORAL CAPSULE one capsule daily for 21 days then off for 7 days LENALIDOMIDE 79904528340 No Longer Active Maliheh Ziglari REGISTERED VETERINARY TECHNICIAN Active ZITHROMAX Z-EDDIE 250 MG ORAL TABLET 2 today, then 1 daily for 4 days AZITHROMYCIN 64058034686 No Longer Active Augustina Mata APRN Active NOVOLIN R RELION 100 UNIT/ML INJECTION SOLUTION 30- 40 units each meal sliding scale INSULIN REGULAR HUMAN 44258003619 No Longer Active Maliheh Ziglari REGISTERED VETERINARY TECHNICIAN Active HYDROCODONE-ACETAMINOPHEN 5-500 MG ORAL TABLET 1-2 FOUR TIMES A DAY, PRN 2010 HYDROCODONE-ACETAMINOPHEN 33373577196 No Longer Active Prosper Arenas MD Active DOXYCYCLINE HYCLATE 100 MG ORAL CAPSULE take one capsule by mouth twice daily for ten days DOXYCYCLINE HYCLATE 24421025047 No Longer Active Mekhi Dukes MD Active DOXYCYCLINE HYCLATE 100 MG ORAL CAPSULE take one capsule by mouth twice daily for ten days DOXYCYCLINE HYCLATE 100 MG ORAL CAPSULE 5055797 DOXYCYCLINE HYCLATE Inactive HYDROCODONE-ACETAMINOPHEN 5-500 MG ORAL [...] days ZITHROMAX Z-EDDIE 250 MG ORAL TABLET 211693 AZITHROMYCIN Inactive REVLIMID 25 MG ORAL CAPSULE one capsule daily for 21 days then off for 7 days REVLIMID 25 MG ORAL CAPSULE LENALIDOMIDE Inactive TRAZODONE HCL 50 MG ORAL TABLET three tablets at bed time TRAZODONE HCL 50 MG ORAL TABLET 326577 TRAZODONE HCL Inactive HALOPERIDOL 0.5 MG ORAL TABLET one tablet three times a day HALOPERIDOL 0.5 MG ORAL TABLET 947179 HALOPERIDOL Inactive BENZONATATE 200 MG ORAL CAPSULE 1 tab, 2-3 times a day BENZONATATE 200 MG ORAL CAPSULE 999050 BENZONATATE Inactive MECLIZINE HCL 25 MG ORAL TABLET 1 daily needed for dizziness 2015 MECLIZINE HCL 25 MG ORAL TABLET 831233 MECLIZINE HCL Inactive HYDROCHLOROTHIAZIDE 25 MG ORAL TABLET 1 tablet by mouth daily HYDROCHLOROTHIAZIDE 25 MG ORAL TABLET 569071 HYDROCHLOROTHIAZIDE Inactive PREDNISONE 20 MG ORAL TABLET Take 2 daily for 3 days and then 1 daily for 3 days PREDNISONE 20 MG ORAL TABLET 662759 PREDNISONE Inactive LISINOPRIL 5 MG ORAL TABLET 1 daily LISINOPRIL 5 MG ORAL TABLET 726281 LISINOPRIL Inactive METOPROLOL TARTRATE 25 MG ORAL TABLET 1/2 tablet twice a day METOPROLOL TARTRATE 25 MG ORAL TABLET 767600 METOPROLOL TARTRATE Inactive OMEPRAZOLE 20 MG ORAL CAPSULE DELAYED RELEASE 1 qd OMEPRAZOLE 20 MG ORAL CAPSULE DELAYED RELEASE 173771 OMEPRAZOLE Inactive SIMVASTATIN 80 MG ORAL TABLET 1/2 tablet daily SIMVASTATIN 80 MG ORAL TABLET 964141 SIMVASTATIN Inactive ASPIRIN 81 MG ORAL TABLET [...] 4 days PREDNISONE 20 MG ORAL TABLET 214403 PREDNISONE Inactive BENZONATATE 200 MG ORAL CAPSULE Take 1 tablet 3 times a day as needed for cough BENZONATATE 200 MG ORAL CAPSULE 035833 BENZONATATE Inactive AZITHROMYCIN 250 MG ORAL TABLET 2 po qd x 1 day, then 1 po qd x 4 days 05/07 AZITHROMYCIN 250 MG ORAL TABLET 212633 AZITHROMYCIN Inactive ACYCLOVIR 400 MG ORAL TABLET 1 pill two times daily ACYCLOVIR 400 MG ORAL TABLET 179051 ACYCLOVIR Inactive Advance Directives Directive Description Start Date ADVANCED DIRECTIVE Immunizations Vaccine Administration Date Value Standard Description [...] temperature weight E&M 180.5 [lb_av] Weight Measured Diagnostic Results Date Name Value Unit Range Description Chart Maintenance: Outside labs entered on Flowsheet [...] % 11.6-14.8 platelet count 294 10^3/MM^3 10*3/mm3 198-922 3434/05/29 leukocyte count, blood 2.4 10^3/MM^3 10*3/mm3 4.6-10.2 [...] % 11.6-14.8 platelet count 138 10^3/MM^3 10*3/mm3 981-818 7222/06/12 leukocyte count, blood 4.3 10^3/MM^3 10*3/mm3 4.6-10.2 [...] % 11.6-14.8 platelet count 355 10^3/MM^3 10*3/mm3 696-454 0229/06/19 leukocyte count, blood 2.2 10^3/MM^3 10*3/mm3 4.6-10.2 [...] % 11.6-14.8 platelet count 109 10^3/MM^3 10*3/mm3 235-125 8775/07/06 leukocyte count, blood 5.1 10^3/MM^3 10*3/mm3 4.6-10.2 neutrophils as percent of blood leukocytes 58.7 % 42.2-75.2 monocytes as percent of blood leukocytes 15.3 % 1.7-9.3 lymphocytes as percent of blood leukocytes 24.3 % 20.5-51.1 erythrocyte (RBC) count 4.86 10^6/MM^3 10*6/mm3 4.50-6.50 hemoglobin, blood 15.7 g/dL 14.0-18.0 hematocrit, blood 46.7 % 40.0-54.0 mean corpuscular volume, RBC 96 fL 80-97 mean corpuscular hemoglobin, RBC 32.3 pg 27.0-31.2 mean corpuscular hemoglobin concentration, RBC 33.6 G/DL % 31.8- 35.4 red blood cell distribution width 12.8 % 11.6-14.8 platelet count 405 10^3/MM^3 10*3/mm3 321-817 9269/09/21 leukocyte count, blood 3.1 10^3/MM^3 10*3/mm3 4.6-10.2 neutrophils as percent of blood leukocytes 63.9 % 42.2-75.2 monocytes as percent of blood leukocytes 16.7 % 1.7-9.3 lymphocytes as percent of blood leukocytes 18.1 % 20.5-51.1 erythrocyte (RBC) count 4.38 10^6/MM^3 10*6/mm3 4.50-6.50 hemoglobin, blood 13.7 g/dL 14.0-18.0 hematocrit, blood 39.1 % 40.0-54.0 mean corpuscular volume, RBC 89 fL 80-97 mean corpuscular hemoglobin, RBC 31.3 pg 27.0-31.2 mean corpuscular hemoglobin concentration, RBC 35.1 G/DL % 31.8- 35.4 red blood cell distribution width 11.1 % 11.6-14.8 platelet count 176 10^3/MM^3 10*3/mm3 763-081 8158/09/28 leukocyte count, blood 3.3 10^3/MM^3 10*3/mm3 4.6-10.2 neutrophils as percent of blood leukocytes 57.7 % 42.2-75.2 monocytes as percent of blood leukocytes 22.3 % 1.7-9.3 lymphocytes as percent of blood leukocytes 17.2 % 20.5-51.1 erythrocyte (RBC) count 4.12 10^6/MM^3 10*6/mm3 4.50-6.50 hemoglobin, blood 12.8 g/dL 14.0-18.0 hematocrit, blood 36.8 % 40.0-54.0 mean corpuscular volume, RBC 89 fL 80-97 mean corpuscular hemoglobin, RBC 31.1 pg 27.0-31.2 mean corpuscular hemoglobin concentration, RBC 34.9 G/DL % 31.8- 35.4 red blood cell distribution width 11.5 % 11.6-14.8 platelet count 150 10^3/MM^3 10*3/mm3 142-424 Lab Report: CBC W/DIFF, Comp. Metabolic Panel - Chemistry sodium, serum 136 mmol/L 622-000 8794/09/04 carbon dioxide, venous blood 23.3 mmol/L 21.0-32.0 potassium, serum 3.6 mmol/L 3.5-5.2 chloride, serum 101 mmol/L 98-107 blood glucose 221 mg/dL 65-95 urea nitrogen, blood 13 mg/dL 7-18 creatinine, serum 1.14 mg/dL 0.60-1.30 alanine aminotransferase (SGPT), serum 49 U/L -78 aspartate aminotransferase (SGOT), serum 30 U/L 15-37 alkaline phosphatase, serum 78 U/L 50-136 calcium, serum 8.0 mg/dL 8.5-10.1 bilirubin, serum, total 0.50 mg/dL 0.00-1.00 sodium, serum 133 mmol/L 118-742 0630/08/01 carbon dioxide, venous blood 22.0 mmol/L 21.0-32.0 potassium, serum 3.4 mmol/L 3.5-5.2 chloride, serum 96 mmol/L 98-107 blood glucose 162 mg/dL 65-95 urea nitrogen, blood 13 mg/dL 7-18 creatinine, serum 1.16 mg/dL 0.60-1.30 alanine aminotransferase (SGPT), serum 61 U/L -78 aspartate aminotransferase (SGOT), serum 33 U/L 15-37 calcium, serum 8.5 mg/dL 8.5-10.1 bilirubin, serum, total 0.70 mg/dL 0.00-1.00 sodium, serum 133 mmol/L 571-036 7654/07/24 carbon dioxide, venous blood 20.6 mmol/L 21.0-32.0 potassium, serum 3.0 mmol/L 3.5-5.2 chloride, serum 100 mmol/L 98-107 blood glucose 193 mg/dL 65-95 urea nitrogen, blood 11 mg/dL 7-18 creatinine, serum 1.28 mg/dL 0.60-1.30 alanine aminotransferase (SGPT), serum 48 U/L 12-78 aspartate aminotransferase (SGOT), serum 22 U/L 15-37 calcium, serum 8.3 mg/dL 8.5-10.1 bilirubin, serum, total 0.50 mg/dL 0.00-1.00 sodium, serum 137 mmol/L 628-612 4389/06/05 carbon dioxide, venous blood 26.0 mmol/L 21.0-32.0 potassium, serum 4.5 mmol/L 3.5-5.2 chloride, serum 100 mmol/L 98-107 blood glucose 100 mg/dL 65-95 urea nitrogen, blood 16 mg/dL 7-18 creatinine, serum 1.67 mg/dL 0.60-1.30 alanine aminotransferase (SGPT), serum 75 U/L -78 aspartate aminotransferase (SGOT), serum 46 U/L 15-37 calcium, serum 9.8 mg/dL 8.5-10.1 bilirubin, serum, total 0.40 mg/dL 0.00-1.00 sodium, serum 124 mmol/L 142-717 6898/07/06 carbon dioxide, venous blood 20.9 mmol/L 21.0-32.0 potassium, serum 4.0 mmol/L 3.5-5.2 chloride, serum 90 mmol/L 98-107 blood glucose 175 mg/dL 65-95 urea nitrogen, blood 14 mg/dL 7-18 creatinine, serum 1.21 mg/dL 0.60-1.30 alanine aminotransferase (SGPT), serum 70 U/L - aspartate aminotransferase (SGOT), serum 32 U/L 15-37 calcium, serum 8.5 mg/dL 8.5-10.1 bilirubin, serum, total 0.80 mg/dL 0.00-1.00 sodium, serum 134 mmol/L 162-146 6400/05/15 carbon dioxide, venous blood 23.5 mmol/L 21.0-32.0 potassium, serum 4.8 mmol/L 3.5-5.2 chloride, serum 101 mmol/L 98-107 blood glucose 139 mg/dL 65-95 urea nitrogen, blood 19 mg/dL 7- creatinine, serum 1.79 mg/dL 0.60-1.30 alanine aminotransferase (SGPT), serum 140 U/L - aspartate aminotransferase (SGOT), serum 104 U/L 15-37 calcium, serum 8.5 mg/dL 8.5-10.1 bilirubin, serum, total 0.40 mg/dL 0.00-1.00 sodium, serum 135 mmol/L 231-307 3327/04/10 carbon dioxide, venous blood 26.1 mmol/L 21.0-32.0 potassium, serum 4.2 mmol/L 3.5-5.2 chloride, serum 100 mmol/L 98-107 blood glucose 293 mg/dL 65-110 urea nitrogen, blood 18 mg/dL 7- creatinine, serum 2.06 mg/dL 0.60-1.30 alanine aminotransferase (SGPT), serum 59 U/L -78 aspartate aminotransferase (SGOT), serum 47 U/L 15- calcium, serum 8.6 mg/dL 8.5-10.1 bilirubin, serum, total 0.30 mg/dL 0.00-1.00 sodium, serum 139 mmol/L 834-547 6987/05/01 carbon dioxide, venous blood 25.2 mmol/L 21.0-32.0 potassium, serum 4.1 mmol/L 3.5-5.2 chloride, serum 104 mmol/L 98-107 blood glucose 64 mg/dL 65-95 urea nitrogen, blood 16 mg/dL 7-18 creatinine, serum 1.55 mg/dL 0.60-1.30 alanine aminotransferase (SGPT), serum 80 U/L - aspartate aminotransferase (SGOT), serum 53 U/L - calcium, serum 8.1 mg/dL 8.5-10.1 bilirubin, serum, total 0.40 mg/dL 0.00-1.00 sodium, serum 135 mmol/L 173-103 8470/05/08 carbon dioxide, venous blood 29.0 mmol/L 21.0-32.0 [...] % 11.6-14.8 platelet count 36 10^3/MM^3 10*3/mm3 891-103 8064/05/08 leukocyte count, blood 1.8 10^3/MM^3 10*3/mm3 4.6-10.2 [...] % 11.6-14.8 platelet count 103 10^3/MM^3 10*3/mm3 934-169 8273/05/01 leukocyte count, blood 5.0 10^3/MM^3 10*3/mm3 4.6-10.2 [...] % 11.6-14.8 platelet count 271 10^3/MM^3 10*3/mm3 659-064 4751/04/10 leukocyte count, blood 4.8 10^3/MM^3 10*3/mm3 4.6-10.2 [...] % 11.6-14.8 platelet count 200 10^3/MM^3 10*3/mm3 442-259 1278/06/05 leukocyte count, blood 2.7 10^3/MM^3 10*3/mm3 4.6-10.2 [...] % 11.6-14.8 platelet count 84 10^3/MM^3 10*3/mm3 011-305 5831/08/01 leukocyte count, blood 5.1 10^3/MM^3 10*3/mm3 4.6-10.2 neutrophils as percent of blood leukocytes 58.7 % 42.2-75.2 monocytes as percent of blood leukocytes 11.6 % 1.7-9.3 lymphocytes as percent of blood leukocytes 23.3 % 20.5-51.1 erythrocyte (RBC) count 4.50 10^6/MM^3 10*6/mm3 4.50-6.50 hemoglobin, blood 14.3 g/dL 14.0-18.0 hematocrit, blood 43.2 % 40.0-54.0 mean corpuscular volume, RBC 96 fL 80-97 mean corpuscular hemoglobin, RBC 31.8 pg 27.0-31.2 mean corpuscular hemoglobin concentration, RBC 33.1 G/DL % 31.8- 35.4 red blood cell distribution width 12.9 % 11.6-14.8 platelet count 235 10^3/MM^3 10*3/mm3 375-851 7557/07/24 leukocyte count, blood 4.3 10^3/MM^3 10*3/mm3 4.6-10.2 neutrophils as percent of blood leukocytes 56.3 % 42.2-75.2 monocytes as percent of blood leukocytes 15.1 % 1.7-9.3 lymphocytes as percent of blood leukocytes 23.8 % 20.5-51.1 erythrocyte (RBC) count 3.82 10^6/MM^3 10*6/mm3 4.50-6.50 hemoglobin, blood 12.2 g/dL 14.0-18.0 hematocrit, blood 36.8 % 40.0-54.0 mean corpuscular volume, RBC 96 fL 80-97 mean corpuscular hemoglobin, RBC 31.9 pg 27.0-31.2 mean corpuscular hemoglobin concentration, RBC 33.1 G/DL % 31.8- 35.4 red blood cell distribution width 13.6 % 11.6-14.8 platelet count 262 10^3/MM^3 10*3/mm3 974-764 1938/09/04 leukocyte count, blood 2.7 10^3/MM^3 10*3/mm3 4.6-10.2 neutrophils as percent of blood leukocytes 63.7 % 42.2-75.2 monocytes as percent of blood leukocytes 16.9 % 1.7-9.3 lymphocytes as percent of blood leukocytes 18.4 % 20.5-51.1 erythrocyte (RBC) count 4.29 10^6/MM^3 10*6/mm3 4.50-6.50 hemoglobin, blood 13.7 g/dL 14.0-18.0 hematocrit, blood 39.4 % 40.0-54.0 mean corpuscular volume, RBC 92 fL 80-97 mean corpuscular hemoglobin, RBC 32.0 pg 27.0-31.2 mean corpuscular hemoglobin concentration, RBC 34.8 G/DL % 31.8- 35.4 red blood cell distribution width 11.6 % 11.6-14.8 platelet count 216 10^3/MM^3 10*3/mm3 142-424 Lab Report: Comp. Metabolic Panel - Chemistry sodium, serum 138 mmol/L 027-328 9365/09/21 carbon dioxide, venous blood 21.8 mmol/L 21.0-32.0 potassium, serum 3.4 mmol/L 3.5-5.2 chloride, serum 102 mmol/L 98-107 blood glucose 139 mg/dL 65-95 urea nitrogen, blood 11 mg/dL 7-18 creatinine, serum 0.98 mg/dL 0.60-1.30 alanine aminotransferase (SGPT), serum 39 U/L 12-78 aspartate aminotransferase (SGOT), serum 29 U/L 15-37 alkaline phosphatase, serum 60 U/L 50-136 calcium, serum 8.0 mg/dL 8.5-10.1 bilirubin, serum, total 0.70 mg/dL 0.00-1.00 sodium, serum 134 mmol/L 760-206 1785/09/28 carbon dioxide, venous blood 24.5 mmol/L 21.0-32.0 potassium, serum 3.1 mmol/L 3.5-5.2 chloride, serum 101 mmol/L 98-107 blood glucose 222 mg/dL 65-95 urea nitrogen, blood 15 mg/dL 7-18 creatinine, serum 1.07 mg/dL 0.60-1.30 alanine aminotransferase (SGPT), serum 46 U/L 12-78 aspartate aminotransferase (SGOT), serum 22 U/L 15-37 alkaline phosphatase, serum 83 U/L 50-136 calcium, serum 7.5 mg/dL 8.5-10.1 bilirubin, serum, total 0.50 mg/dL 0.00-1.00 sodium, serum 132 mmol/L 731-521 6695/06/19 carbon dioxide, venous blood 20.9 mmol/L 21.0-32.0 potassium, serum 3.9 mmol/L 3.5-5.2 chloride, serum 102 mmol/L 98-107 blood glucose 259 mg/dL 65-95 urea nitrogen, blood 16 mg/dL 7-18 creatinine, serum 1.46 mg/dL 0.60-1.30 alanine aminotransferase (SGPT), serum 62 U/L 12-78 aspartate aminotransferase (SGOT), serum 27 U/L 15-37 calcium, serum 7.5 mg/dL 8.5-10.1 bilirubin, serum, total 0.50 mg/dL 0.00-1.00 sodium, serum 134 mmol/L 089-560 6643/06/12 carbon dioxide, venous blood 21.9 mmol/L 21.0-32.0 potassium, serum 4.4 mmol/L 3.5-5.2 chloride, serum 97 mmol/L 98-107 blood glucose 191 mg/dL 65-95 urea nitrogen, blood 23 mg/dL - creatinine, serum 1.68 mg/dL 0.60-1.30 alanine aminotransferase (SGPT), serum 64 U/L aspartate aminotransferase (SGOT), serum 35 U/L calcium, serum 8.9 mg/dL 8.5-10.1 bilirubin, serum, total 0.70 mg/dL 0.00-1.00 sodium, serum 136 mmol/L 426-406 2191/05/29 carbon dioxide, venous blood 22.4 mmol/L 21.0-32.0 potassium, serum 4.0 mmol/L 3.5-5.2 chloride, serum 104 mmol/L 98-107 blood glucose 128 mg/dL urea nitrogen, blood 20 mg/dL 10-14 creatinine, serum 1.47 mg/dL 0.60-1.30 alanine aminotransferase (SGPT), serum 80 U/L aspartate aminotransferase (SGOT), serum 38 U/L calcium, serum 9.1 mg/dL 8.5-10.1 bilirubin, serum, total 0.40 mg/dL 0.00-1.00 sodium, serum 134 mmol/L 225-237 4201/05/22 carbon dioxide, venous blood 25.2 mmol/L 21.0-32.0 potassium, serum 5.0 mmol/L 3.5-5.2 chloride, serum 100 mmol/L 98-107 blood glucose 278 mg/dL urea nitrogen, blood 19 mg/dL 10-14 creatinine, serum 1.49 mg/dL 0.60-1.30 alanine aminotransferase (SGPT), serum 93 U/L aspartate aminotransferase (SGOT), serum 58 U/L /22 calcium, serum 9.1 mg/dL 8.5-10.1 bilirubin, serum, total 0.20 mg/dL 0.00-1.00 Lab Report: SADA INFLUENZA A/B - Toxicology rapid flu test Negative Negative Office Visit: Diabetes Visit - Basic LDL target level 100 mg/dL Office Visit: Diabetes Visit - Chemistry cholesterol, target level 200 mg/dL triglyceride, target level 200 mg/dL HDL cholesterol, serum, target level 35 mg/dL Encounters Code Encounter Date Provider Facility [id number] Vst-Est Level IV 11:03:20 CDT Prosper Arenas MD [facility] CPT-64982 Level 3 Est. Patient 14:09:25 MOLDING MACHINE OPERATOR Dee Palmer APRN [facility] CPT-28382 Level 3 Est. Patient 10:53:32 MOLDING MACHINE OPERATOR [facility] CPT-12697 Level 3 Est. Patient 17:11:55 MOLDING MACHINE OPERATOR Ismael Gracia MD [facility] CPT-62234 Level 4 Est. Patient 16:29:19 CDT Mekhi Dukes MD [facility] CPT-67995 Level 3 New Patient 17:05:24 CDT Ismael Gracia MD [facility] CPT-32747 Level 2 Est. Patient 15:43:17 CDT Mekhi Dukes MD [facility] CPT-98134 Level 3 Est. [facility] 09:30:[facility] CPT-65993 Level 3 Est. Patient 10:00:14 CDT Mekhi Dukes MD [facility] CPT-35753 Level 3 Est. Patient 12:24:09 [facility]02163 Level 3 Est. Patient 14:34:57 CDT Prosper Arenas MD [facility] CPT-43432 Level 3 New Patient 15:44:53 MOLDING MACHINE OPERATOR Mekhi Dukes MD [facility] CPT-74870 Level 3 Est. Patient 14:53:34 MOLDING MACHINE OPERATOR Prosper Arenas MD [facility]-24863 Level 4 Est. Patient 10:05:41 MOLDING MACHINE OPERATOR Moy Rodrigokymrex [facility]-12385 Level 3 Est. Patient 11:18:32 CDT Moy Bradshawari [facility] CPT-43794 Level 4 Est. Patient 11:05:10 CDT Moy Bradshawari [facility] CPT-38675 Level 3 Est. Patient 11:08:27 MOLDING MACHINE OPERATOR Luxcarissashoaib Jose [facility] CPT-52940 Level 4 Est. Patient 10:43:59 CDT Prosper Arenas MD [facility]-21004 Level 3 Est. Patient 10:51:19 CDT Moy Garcia [facility] CPT-56352 Level 3 Est. Patient 10:20:31 CDT Moy Bradshawari [facility] CPT-46427 Level 3 Est. Patient 17:08:45 CDT Moy Wallacesania [facility] CPT-11011 Level 2 Est. Patient 13:54:36 CDT Augustina Mata APRN [facility] CPT-23326 Level 3 Est. Patient 12:00:42 CDT Prosper Arenas MD [facility] CPT-55597 Level 3 Est. Patient 09:57:28 MOLDING MACHINE OPERATOR Luxcarissashoaib Jose [facility]-87294 Level 3 Est. Patient 11:41:19 MOLDING MACHINE OPERATOR Luxcarissashoaib Jose [facility] CPT-31287 Level 4 Est. Patient 17:07:35 MOLDING MACHINE OPERATOR Malihshoaib Garcia [facility] CPT-85040 Level 5 Est. Patient 14:33:32 CDT Moy Garcia [facility] CPT-72774 Level 3 Est. Patient 12:25:35 CDT Prosper Arenas MD [facility] Procedures Code Procedure Name Date Entry Date Standard Description CPT-35008 Chest, 2 views 14:17:20 MOLDING MACHINE OPERATOR CPT-44446 Postop F/U Visit 14:44:45 MOLDING MACHINE OPERATOR CPT-09420 Postop F/U Visit 17:20:20 MOLDING MACHINE OPERATOR CPT-G0439 Subsequent Annual Wellness Exam 08:39:41 MOLDING MACHINE OPERATOR CPT-000 Give Appropriate Flu Vaccine 10:13:55 MOLDING MACHINE OPERATOR CPT-000 Give Immunizations Due 10:13:55 MOLDING MACHINE OPERATOR CPT-60615 HGBA1C - LAB USE ONLY 09:42:47 MOLDING MACHINE OPERATOR CPT-61948 TPSA - LAB USE ONLY 09:42:46 MOLDING MACHINE OPERATOR CPT-40895 Venipuncture Draw Fee 09:42:46 MOLDING MACHINE OPERATOR CPT-49228 Port a cath flush 13:33:18 MOLDING MACHINE OPERATOR CPT-84895 First Vx - Ix admin for Medicare patients 10:42:57 MOLDING MACHINE OPERATOR CPT-93005 Fluzone Preservative Free Intramuscular Suspension 10:42 :57 MOLDING MACHINE OPERATOR CPT-G0438 Initial Annual Wellness Exam 10:13:55 MOLDING MACHINE OPERATOR CPT-000 Give Appropriate Flu Vaccine 10:44:04 CDT CPT-000 Give Pneumovax 10:44:03 CDT CPT-03843 Port a cath flush 17:04:43 CDT CPT-47340 Prevnar 13 11:19:17 CDT CPT-68910 Fluzone Quadrivalent preservative free (>=3yrs.) 11:19: 17 CDT CPT-87812 Immunization Each Additional Inj 11:19:17 CDT CPT-06770 Immunization Single Admin 11:19:17 CDT CPT-65600 Port a cath flush 13:28:22 CDT CPT-TCMM Transitional Care Mgmt-Moderate 13:40:15 CDT CPT-G0008 Administration of Influenza Virus Vaccine 13:59:20 CDT CPT-07309 Fluzone High-Dose Intramuscular Suspension 13:59:20 CDT CPT-77670 Venipuncture Draw Fee 09:56:19 CDT CPT-OV Office Visit 15:46:10 CDT
--- OUTSIDE RECORDS SUMMARY | 2017-12-31 15:28 | XMS REPORT | Clinical Summary ---
Author Author Admin, [facility] Organization [facility] Address Unknown Phone Unavailable Allergies, Adverse Reactions, Alerts Allergy Name Reaction Description Start Date Severity Status Provider ERYTHROMYCIN Stomach cramps Moderate Active Prosper Arenas MD CODEINE Critical Active Maliheh Ziglari [employer] DARVOCET Critical Active Maliheh Ziglari [employer] LEVAQUIN Critical Active Maliheh Ziglari [employer] Conditions or Problems Problem Name Problem Code Onset Date Status Entry Date Provider Comment Standard Description Annotate Diabetes, Type 2 250.00 Resolved 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 without mention of complication, type II [...] mellitus, type II, uncontrolled 250.02 Active Maliheh Jose DURANTP Diabetes mellitus without mention of complication, type II or unspecified type, uncontrolled Chest pain, atypical 786.59 Resolved Mekhi Dukes MD Other chest pain Bronchitis 490 Resolved Mekhi Dukse MD Bronchitis, not specified as acute or [...] hyperglycemia 250.00 Active 03/21 Maliheh Ziglari [employer] Diabetes mellitus without mention of complication, type II or unspecified type, not stated as uncontrolled FDC use of insulin treatment V58.67 Active Jose Antonioeh Rodrigoglari [employer] Long-term (current) use of insulin Diabetes mellitus, type II with hypoglycemia 250.80 Active 07/22 Maliheh Ziglari [employer] Diabetes mellitus with other specified manifestations, type II or unspecified type, not stated as uncontrolled 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 Maliheh Ziglari [employer] Diabetes mellitus with renal manifestations, type II or unspecified type, not stated as uncontrolled Wellness exam V70.0 Active Dee Palmer APRN Routine general medical examination at a health care facility Fitting and adjustment of vascular catheter V58.81 Active 02/06 Dee Palmer APRN Encounter for fitting and adjustment of vascular catheter Unawareness of hypoglycemia in diabetes mellitus, type II 250.80 Active Maliheh Rodrigoglari [employer] Diabetes mellitus with other specified manifestations, type [...] specified as recurrent) Gastritis Inactive Maliheh Ziglari [employer] Unspecified gastritis and gastroduodenitis, without mention of hemorrhage Cough 786.2 Active Dee Palmer APRN Cough Multiple myeloma, in relapse 203.02 Active Lexus Andersenkew LRT Multiple myeloma in relapse Body Mass [...] MD Groin pain, right ICD-789.09 Inactive Mekhi Dkues MD Cough ICD-786.2 Inactive Mekhi Dukes MD Headache ICD-784.0 Inactive Mekhi Dukes MD Inguinal pain, right ICD-789.09 Inactive Mekhi Dukes MD Inguinal hernia ICD-550.90 Inactive Mekhi Dukes MD Gastritis Inactive Janis Puente LPN Medication List Medication Instructions Start Date Stop Date Generic Name NDC Status Provider Patient Instruction MIDODRINE HCL 5 MG ORAL TABLET 1 tab TID MIDODRINE HCL 82231222595 Active Prosper Arenas MD Active ZOFRAN 8 MG ORAL TABLET Take 1 tablet PO Q8H PRN nausea ONDANSETRON HCL 49751272176 Active Shaina Gibson MA Active CALCIUM CITRATE + D TABLET Take 1 tablet PO daily. CALCIUM CITRATE-VITAMIN D TABS 16944786665 Active Shaina Gibson MA Active SIMVASTATIN 40 MG ORAL TABLET Take 1 PO at bedtime. SIMVASTATIN 02713658595 Active Shaina Arthur REY Active RANITIDINE HCL 150 MG ORAL CAPSULE 1 twice a day as needed for heartburn 2017 RANITIDINE HCL 99828506563 Active Shainajhon GutierrezArthur MA Active PROCHLORPERAZINE MALEATE 10 MG ORAL TABLET Take 1 tablet every 6hrs, prn, nausea PROCHLORPERAZINE MALEATE 75535972560 Active Shaina Arthur LE Active METOPROLOL SUCCINATE ER 25 MG ORAL TABLET EXTENDED RELEASE 24 HOUR 1 pill by mouth daily for blood pressure METOPROLOL SUCCINATE 16353558081 Active Shaina Hesperus MA Active MEGESTROL ACETATE 40 MG ORAL TABLET Take 1 tablet daily. MEGESTROL ACETATE 48703435225 Active Shaina Hesperus REY Active ANTACID CALCIUM 500 MG ORAL TABLET CHEWABLE Take 1 chewable daily. CALCIUM CARBONATE ANTACID 64787629931 Active Shaniajhon Gibson REY Active CALCIUM CARBONATE 1250 (500 CA) MG ORAL TABLET CHEWABLE Take 1 tablet daily. CALCIUM CARBONATE 63222933093 Active Shaina Arthur REY Active ACYCLOVIR 400 MG ORAL TABLET 1 pill two times daily ACYCLOVIR 79484596268 No Longer Active Prosper Arenas MD Active CITALOPRAM HYDROBROMIDE 20 MG ORAL TABLET 1 daily for depression CITALOPRAM HYDROBROMIDE 13605136158 Active Prosper Arenas MD Active PREDNISONE 20 MG ORAL TABLET 2 tabs daily for 4 days, 1 tab daily for 4 days, 1/2 tab daily for 4 days PREDNISONE 50447219511 No Longer Active Prosper Arenas MD Active AZITHROMYCIN 250 MG ORAL TABLET 2 po qd x 1 day, then 1 po qd x 4 days 05/07 AZITHROMYCIN 10547128511 No Longer Active Dee Palmer APRN Active GUAIFENESIN DM 400-20 MG ORAL TABLET 1 pill by mouth twice daily, if needed for cough DEXTROMETHORPHAN-GUAIFENESIN 74038184769 Active Dee Palmer APRN Active ASPIRIN 81 MG ORAL TABLET 1 po qd ASPIRIN 45330006424 Active Dee Palmer APRN Active CALCIUM 500/D 500-200 MG-UNIT ORAL TABLET one tablet daily CALCIUM CARBONATE-VITAMIN D 06303018874 No Longer Active Dee Palmer APRN Active HYDROCODONE-ACETAMINOPHEN 7.5-325 MG ORAL TABLET 1-2 every 4-6 hrs prn 02/25 HYDROCODONE-ACETAMINOPHEN 21209811074 Active Marina King BESSY Active ASPIRIN 81 MG ORAL TABLET 1 tablet by mouth daily ASPIRIN 95416013272 No Longer Active [facility] BESSY Active SIMVASTATIN 80 MG ORAL TABLET 1/2 tablet daily SIMVASTATIN 69021907817 No Longer Active Mekhi Dukes MD Active OMEPRAZOLE 20 MG ORAL CAPSULE DELAYED RELEASE 1 qd OMEPRAZOLE 82620653727 No Longer Active Mekhi Dukes MD Active METOPROLOL TARTRATE 25 MG ORAL TABLET 1/2 tablet twice a day METOPROLOL TARTRATE 10032511573 No Longer Active Mekhi Dukes MD Active LISINOPRIL 5 MG ORAL TABLET 1 daily LISINOPRIL 27937395038 No Longer Active Mekhi Dukes MD Active NOVOLOG FLEXPEN 100 UNIT/ML SUBCUTANEOUS SOLUTION PEN-INJECTOR Take 8 units with each meal, add 1u/50 for blood sugars above 150. INSULIN ASPART 05360043261 Active Moy PARISH Active GABAPENTIN 300 MG ORAL CAPSULE 1 tab BID GABAPENTIN 64330640662 Active Tami Miller RN Active PREDNISONE 20 MG ORAL TABLET Take 2 daily for 3 days and then 1 daily for 3 days PREDNISONE 48358133949 No Longer Active Moy PARISH Active BENZONATATE 200 MG ORAL CAPSULE Take 1 tablet 3 times a day as needed for cough BENZONATATE 93977020612 No Longer Active Prosper Arenas MD Active HYDROCHLOROTHIAZIDE 25 MG ORAL TABLET 1 tablet by mouth daily HYDROCHLOROTHIAZIDE 97210833177 No Longer Active Prosper Arenas MD Active ACCU-CHEK JOANNA PLUS IN VITRO STRIP check blood sugars 5x a day, before each meal and bedtime and 15 minutes after treating a low blood. sugar GLUCOSE BLOOD 77737541374 Active Maliheh Ziglari [employer] Active LANTUS SOLOSTAR 100 UNIT/ML SUBCUTANEOUS SOLUTION PEN-INJECTOR Take 40 units at 7-8pm daily INSULIN GLARGINE 84951578395 Active Maliheh Ziglari [employer] Active MECLIZINE HCL 25 MG ORAL TABLET 1 daily needed for dizziness 2015 MECLIZINE HCL 57589108076 No Longer Active Maliheh Ziglari [employer] Active BENZONATATE 200 MG ORAL CAPSULE 1 tab, 2-3 times a day BENZONATATE 20762610803 No Longer Active Maliheh Ziglari [employer] Active HALOPERIDOL 0.5 MG ORAL TABLET one tablet three times a day HALOPERIDOL 30882731351 No Longer Active Maliheh Ziglari [employer] Active TRAZODONE HCL 50 MG ORAL TABLET three tablets at bed time TRAZODONE HCL 08718870758 No Longer Active Maliheh Ziglari [employer] Active REVLIMID 25 MG ORAL CAPSULE one capsule daily for 21 days then off for 7 days LENALIDOMIDE 57977410780 No Longer Active Maliheh Ziglari [employer] Active ZITHROMAX Z-EDDIE 250 MG ORAL TABLET 2 today, then 1 daily for 4 days AZITHROMYCIN 08437121349 No Longer Active Augustina Mata APRN Active NOVOLIN R RELION 100 UNIT/ML INJECTION SOLUTION 30- 40 units each meal sliding scale INSULIN REGULAR HUMAN 93253482357 No Longer Active Maliheh Ziglari [employer] Active HYDROCODONE-ACETAMINOPHEN 5-500 MG ORAL TABLET 1-2 FOUR TIMES A DAY, PRN 2010 HYDROCODONE-ACETAMINOPHEN 32632172080 No Longer Active Prosper Arenas MD Active DOXYCYCLINE HYCLATE 100 MG ORAL CAPSULE take one capsule by mouth twice daily for ten days DOXYCYCLINE HYCLATE 00692282256 No Longer Active Mekhi Dukes MD Active DOXYCYCLINE HYCLATE 100 MG ORAL CAPSULE take one capsule by mouth twice daily for ten days DOXYCYCLINE HYCLATE 100 MG ORAL CAPSULE 6965854 DOXYCYCLINE HYCLATE Inactive HYDROCODONE-ACETAMINOPHEN 5-500 MG ORAL [...] days ZITHROMAX Z-EDDIE 250 MG ORAL TABLET 809864 AZITHROMYCIN Inactive REVLIMID 25 MG ORAL CAPSULE one capsule daily for 21 days then off for 7 days REVLIMID 25 MG ORAL CAPSULE LENALIDOMIDE Inactive TRAZODONE HCL 50 MG ORAL TABLET three tablets at bed time TRAZODONE HCL 50 MG ORAL TABLET 943801 TRAZODONE HCL Inactive HALOPERIDOL 0.5 MG ORAL TABLET one tablet three times a day HALOPERIDOL 0.5 MG ORAL TABLET 325046 HALOPERIDOL Inactive BENZONATATE 200 MG ORAL CAPSULE 1 tab, 2-3 times a day BENZONATATE 200 MG ORAL CAPSULE 725589 BENZONATATE Inactive MECLIZINE HCL 25 MG ORAL TABLET 1 daily needed for dizziness 2015 MECLIZINE HCL 25 MG ORAL TABLET 762303 MECLIZINE HCL Inactive HYDROCHLOROTHIAZIDE 25 MG ORAL TABLET 1 tablet by mouth daily HYDROCHLOROTHIAZIDE 25 MG ORAL TABLET 882266 HYDROCHLOROTHIAZIDE Inactive PREDNISONE 20 MG ORAL TABLET Take 2 daily for 3 days and then 1 daily for 3 days PREDNISONE 20 MG ORAL TABLET 127590 PREDNISONE Inactive LISINOPRIL 5 MG ORAL TABLET 1 daily LISINOPRIL 5 MG ORAL TABLET 078781 LISINOPRIL Inactive METOPROLOL TARTRATE 25 MG ORAL TABLET 1/2 tablet twice a day METOPROLOL TARTRATE 25 MG ORAL TABLET 638142 METOPROLOL TARTRATE Inactive OMEPRAZOLE 20 MG ORAL CAPSULE DELAYED RELEASE 1 qd OMEPRAZOLE 20 MG ORAL CAPSULE DELAYED RELEASE 944723 OMEPRAZOLE Inactive SIMVASTATIN 80 MG ORAL TABLET 1/2 tablet daily SIMVASTATIN 80 MG ORAL TABLET 055028 SIMVASTATIN Inactive ASPIRIN 81 MG ORAL TABLET [...] 4 days PREDNISONE 20 MG ORAL TABLET 025232 PREDNISONE Inactive BENZONATATE 200 MG ORAL CAPSULE Take 1 tablet 3 times a day as needed for cough BENZONATATE 200 MG ORAL CAPSULE 934233 BENZONATATE Inactive AZITHROMYCIN 250 MG ORAL TABLET 2 po qd x 1 day, then 1 po qd x 4 days 05/07 AZITHROMYCIN 250 MG ORAL TABLET 132772 AZITHROMYCIN Inactive ACYCLOVIR 400 MG ORAL TABLET 1 pill two times daily ACYCLOVIR 400 MG ORAL TABLET 454879 ACYCLOVIR Inactive Advance Directives Directive Description Start [...] % 11.6-14.8 platelet count 294 10^3/MM^3 10*3/mm3 349-915 4015/05/29 leukocyte count, blood 2.4 10^3/MM^3 10*3/mm3 4.6-10.2 [...] % 11.6-14.8 platelet count 138 10^3/MM^3 10*3/mm3 585-109 8727/06/12 leukocyte count, blood 4.3 10^3/MM^3 10*3/mm3 4.6-10.2 [...] % 11.6-14.8 platelet count 355 10^3/MM^3 10*3/mm3 050-986 0009/06/19 leukocyte count, blood 2.2 10^3/MM^3 10*3/mm3 4.6-10.2 [...] % 11.6-14.8 platelet count 109 10^3/MM^3 10*3/mm3 532-868 7505/07/06 leukocyte count, blood 5.1 10^3/MM^3 10*3/mm3 4.6-10.2 [...] % 11.6-14.8 platelet count 405 10^3/MM^3 10*3/mm3 406-344 2097/09/21 leukocyte count, blood 3.1 10^3/MM^3 10*3/mm3 4.6-10.2 [...] % 11.6-14.8 platelet count 176 10^3/MM^3 10*3/mm3 142-424 Lab Report: CBC W/DIFF, Comp. Metabolic Panel - Chemistry sodium, serum 133 mmol/L 853-595 2880/08/01 carbon dioxide, venous blood 22.0 mmol/L 21.0-32.0 potassium, serum 3.4 mmol/L 3.5-5.2 chloride, serum 96 mmol/L 98-107 blood glucose 162 mg/dL 65-95 urea nitrogen, blood 13 mg/dL 7-18 creatinine, serum 1.16 mg/dL 0.60-1.30 alanine aminotransferase (SGPT), serum 61 U/L 12-78 aspartate aminotransferase (SGOT), serum 33 U/L 15-37 calcium, serum 8.5 mg/dL 8.5-10.1 bilirubin, serum, total 0.70 mg/dL 0.00-1.00 sodium, serum 136 mmol/L 268-246 1114/09/04 carbon dioxide, venous blood 23.3 mmol/L 21.0-32.0 [...] 0.50 mg/dL 0.00-1.00 sodium, serum 133 mmol/L 835-018 5961/07/24 carbon dioxide, venous blood 20.6 mmol/L 21.0-32.0 potassium, serum 3.0 mmol/L 3.5-5.2 chloride, serum 100 mmol/L 98-107 blood glucose 193 mg/dL 65-95 urea nitrogen, blood 11 mg/dL 7-18 creatinine, serum 1.28 mg/dL 0.60-1.30 alanine aminotransferase (SGPT), serum 48 U/L -78 aspartate aminotransferase (SGOT), serum 22 U/L 15-37 calcium, serum 8.3 mg/dL 8.5-10.1 bilirubin, serum, total 0.50 mg/dL 0.00-1.00 sodium, serum 137 mmol/L 026-218 1868/06/05 carbon dioxide, venous blood 26.0 mmol/L 21.0-32.0 potassium, serum 4.5 mmol/L 3.5-5.2 chloride, serum 100 mmol/L 98-107 blood glucose 100 mg/dL - urea nitrogen, blood 16 mg/dL 7- creatinine, serum 1.67 mg/dL 0.60-1.30 alanine aminotransferase (SGPT), serum 75 U/L aspartate aminotransferase (SGOT), serum 46 U/L 15- calcium, serum 9.8 mg/dL 8.5-10.1 bilirubin, serum, total 0.40 mg/dL 0.00-1.00 sodium, serum 124 mmol/L 345-070 5772/07/06 carbon dioxide, venous blood 20.9 mmol/L 21.0-32.0 potassium, serum 4.0 mmol/L 3.5-5.2 chloride, serum 90 mmol/L 98-107 blood glucose 175 mg/dL - urea nitrogen, blood 14 mg/dL - creatinine, serum 1.21 mg/dL 0.60-1.30 alanine aminotransferase (SGPT), serum 70 U/L aspartate aminotransferase (SGOT), serum 32 U/L - calcium, serum 8.5 mg/dL 8.5-10.1 bilirubin, serum, total 0.80 mg/dL 0.00-1.00 sodium, serum 134 mmol/L 047-323 5415/05/15 carbon dioxide, venous blood 23.5 mmol/L 21.0-32.0 potassium, serum 4.8 mmol/L 3.5-5.2 chloride, serum 101 mmol/L 98-107 blood glucose 139 mg/dL - urea nitrogen, blood 19 mg/dL 7- creatinine, serum 1.79 mg/dL 0.60-1.30 alanine aminotransferase (SGPT), serum 140 U/L aspartate aminotransferase (SGOT), serum 104 U/L calcium, serum 8.5 mg/dL 8.5-10.1 bilirubin, serum, total 0.40 mg/dL 0.00-1.00 sodium, serum 135 mmol/L 955-567 1403/04/10 carbon dioxide, venous blood 26.1 mmol/L 21.0-32.0 potassium, serum 4.2 mmol/L 3.5-5.2 chloride, serum 100 mmol/L 98-107 blood glucose 293 mg/dL 65-110 urea nitrogen, blood 18 mg/dL 7- creatinine, serum 2.06 mg/dL 0.60-1.30 alanine aminotransferase (SGPT), serum 59 U/L aspartate aminotransferase (SGOT), serum 47 U/L calcium, serum 8.6 mg/dL 8.5-10.1 bilirubin, serum, total 0.30 mg/dL 0.00-1.00 sodium, serum 139 mmol/L 941-387 2211/05/01 carbon dioxide, venous blood 25.2 mmol/L 21.0-32.0 potassium, serum 4.1 mmol/L 3.5-5.2 chloride, serum 104 mmol/L 98-107 blood glucose 64 mg/dL 65-95 urea nitrogen, blood 16 mg/dL 7-18 creatinine, serum 1.55 mg/dL 0.60-1.30 alanine aminotransferase (SGPT), serum 80 U/L aspartate aminotransferase (SGOT), serum 53 U/L calcium, serum 8.1 mg/dL 8.5-10.1 bilirubin, serum, total 0.40 mg/dL 0.00-1.00 sodium, serum 135 mmol/L 619-969 2360/05/08 carbon dioxide, venous blood 29.0 mmol/L 21.0-32.0 [...] % 11.6-14.8 platelet count 36 10^3/MM^3 10*3/mm3 131-101 6210/05/08 leukocyte count, blood 1.8 10^3/MM^3 10*3/mm3 4.6-10.2 [...] % 11.6-14.8 platelet count 103 10^3/MM^3 10*3/mm3 234-966 6678/05/01 leukocyte count, blood 5.0 10^3/MM^3 10*3/mm3 4.6-10.2 [...] % 11.6-14.8 platelet count 271 10^3/MM^3 10*3/mm3 672-715 4148/04/10 leukocyte count, blood 4.8 10^3/MM^3 10*3/mm3 4.6-10.2 [...] % 11.6-14.8 platelet count 200 10^3/MM^3 10*3/mm3 233-285 9330/06/05 leukocyte count, blood 2.7 10^3/MM^3 10*3/mm3 4.6-10.2 [...] % 11.6-14.8 platelet count 84 10^3/MM^3 10*3/mm3 861-547 7771/08/01 leukocyte count, blood 5.1 10^3/MM^3 10*3/mm3 4.6-10.2 [...] % 11.6-14.8 platelet count 235 10^3/MM^3 10*3/mm3 802-758 0541/07/24 leukocyte count, blood 4.3 10^3/MM^3 10*3/mm3 4.6-10.2 [...] % 11.6-14.8 platelet count 262 10^3/MM^3 10*3/mm3 952-695 3439/09/04 leukocyte count, blood 2.7 10^3/MM^3 10*3/mm3 4.6-10.2 [...] Panel - Chemistry sodium, serum 138 mmol/L 807-372 8745/09/21 carbon dioxide, venous blood 21.8 mmol/L 21.0-32.0 [...] 0.70 mg/dL 0.00-1.00 sodium, serum 132 mmol/L 730-390 0520/06/19 carbon dioxide, venous blood 20.9 mmol/L 21.0-32.0 potassium, serum 3.9 mmol/L 3.5-5.2 chloride, serum 102 mmol/L 98-107 blood glucose 259 mg/dL 65-95 urea nitrogen, blood 16 mg/dL 7-18 creatinine, serum 1.46 mg/dL 0.60-1.30 alanine aminotransferase (SGPT), serum 62 U/L 12-78 aspartate aminotransferase (SGOT), serum 27 U/L 15-37 calcium, serum 7.5 mg/dL 8.5-10.1 bilirubin, serum, total 0.50 mg/dL 0.00-1.00 sodium, serum 134 mmol/L 547-480 2472/06/12 carbon dioxide, venous blood 21.9 mmol/L 21.0-32.0 potassium, serum 4.4 mmol/L 3.5-5.2 chloride, serum 97 mmol/L 98-107 blood glucose 191 mg/dL 65-95 urea nitrogen, blood 23 mg/dL - creatinine, serum 1.68 mg/dL 0.60-1.30 alanine aminotransferase (SGPT), serum 64 U/L aspartate aminotransferase (SGOT), serum 35 U/L - calcium, serum 8.9 mg/dL 8.5-10.1 bilirubin, serum, total 0.70 mg/dL 0.00-1.00 sodium, serum 136 mmol/L 313-108 9506/05/29 carbon dioxide, venous blood 22.4 mmol/L 21.0-32.0 potassium, serum 4.0 mmol/L 3.5-5.2 chloride, serum 104 mmol/L 98-107 blood glucose 128 mg/dL urea nitrogen, blood 20 mg/dL 10-14 creatinine, serum 1.47 mg/dL 0.60-1.30 alanine aminotransferase (SGPT), serum 80 U/L aspartate aminotransferase (SGOT), serum 38 U/L calcium, serum 9.1 mg/dL 8.5-10.1 bilirubin, serum, total 0.40 mg/dL 0.00-1.00 sodium, serum 134 mmol/L 825-589 2301/05/22 carbon dioxide, venous blood 25.2 mmol/L 21.0-32.0 [...] mg/dL Encounters Code Encounter Date Provider Facility CPT-74715 [id number] Vst-Est Level IV 11:03:20 CDT Prosper Arenas MD [facility] CPT-67580 Level 3 Est. Patient 14:09:25 BL[employer] PIT [facility]PER [facility] Level 3 Est. Patient 10:53:32 BLOW PIT HELPER [facility]34 Level 3 Est. Patient 17:11:55 BL[employer] PIT HELPER Ismael Gracia MD [facility] CPT-70637 Level 4 Est. Patient 16:29:19 CDT Mekhi Dukes MD [facility] CPT-84808 Level 3 New Patient 17:05:24 CDT Ismael Gracia MD [facility] CPT-00544 Level 2 Est. Patient 15:43:17 CDT Mekhi Dukes MD [facility] CPT-53270 Level 3 Est. Patient 09:30:37 [facility]T [facility]12 Level 3 Est. Patient 10:00:14 CDT Mekhi Dukes MD [facility] CPT-29085 Level 3 Est. Patient 12:24:09 CDT [facility] CPT-65064 Level 3 Est. Patient 14:34:57 CDT Prosper Arenas MD [facility] CPT-75627 Level 3 New Patient 15:44:53 BLOW PIT HELPER Mekhi Dukes MD [facility] CPT-28473 Level 3 Est. Patient 14:53:34 BLOW PIT HELPER Prosper Arenas MD [facility]-61124 Level 4 Est. Patient 10:05:41 BLOW PIT HELPER Moy Jose [facility] CPT-73764 Level 3 Est. Patient 11:18:32 CDT Moy Bradhsawrex [facility] CPT-05013 Level 4 Est. Patient 11:05:10 CDT Moy Bradshawrex [facility] CPT-00672 Level 3 Est. Patient 11:08:27 BLOW PIT HELPER Moy Jose [facility] CPT-00942 Level 4 Est. Patient 10:43:59 CDT Prosper Arenas MD [facility] CPT-00508 Level 3 Est. Patient 10:51:19 CDT Moy Garcia [facility] CPT-60884 Level 3 Est. Patient 10:20:31 CDT Moy Bradshawari [facility] CPT-58148 Level 3 Est. Patient 17:08:45 CDT Moy Wallacesania [facility] CPT-96236 Level 2 Est. Patient 13:54:36 CDT Augustina Mata APRN [facility] CPT-93993 Level 3 Est. Patient 12:00:42 CDT Prosper Arenas MD [facility] CPT-72235 Level 3 Est. Patient 09:57:28 BLOW PIT HELPER Luxcarissashoaib Jose [facility]-36983 Level 3 Est. Patient 11:41:19 BLOW PIT HELPER Jose Antonio Jose [facility] CPT-02135 Level 4 Est. Patient 17:07:35 BLOW PIT HELPER Luxshoaib Garcia [facility] CPT-29433 Level 5 Est. Patient 14:33:32 CDT Moy Garcia [facility] CPT-74488 Level 3 Est. Patient 12:25:35 CDT Prosper Arenas MD [facility] Procedures Code Procedure Name Date Entry Date Standard Description CPT-64798 Chest, 2 views 14:17:20 BL[employer] PIT HELPER CPT-25510 Postop F/U Visit 14:44:45 BL[employer] PIT HELPER CPT-31366 Postop F/U Visit 17:20:20 BL[employer] PIT HELPER CPT-G0439 Subsequent Annual Wellness Exam 08:39:41 BLOW PIT HELPER CPT-000 Give Appropriate Flu Vaccine 10:13:55 BLOW PIT HELPER CPT-000 Give Immunizations Due 10:13:55 BLOW PIT HELPER CPT-81522 HGBA1C - LAB USE ONLY 09:42:47 BLOW PIT HELPER CPT-82275 TPSA - LAB USE ONLY 09:42:46 BLOW PIT HELPER CPT-78445 Venipuncture Draw Fee 09:42:46 BLOW PIT HELPER CPT-35303 Port a cath flush 13:33:18 BLOW PIT HELPER CPT-39070 First Vx - Ix admin for Medicare patients 10:42:57 BLOW PIT HELPER CPT-30477 Fluzone Preservative Free Intramuscular Suspension 10:42 :57 BLOW PIT HELPER CPT-G0438 Initial Annual Wellness Exam 10:13:55 BLOW PIT HELPER CPT-000 Give Appropriate Flu Vaccine 10:44:04 CDT CPT-000 Give Pneumovax 10:44:03 CDT CPT-55111 Port a cath flush 17:04:43 CDT CPT-75955 Prevnar 13 11:19:17 CDT CPT-53585 Fluzone Quadrivalent preservative free (>=3yrs.) 11:19: 17 CDT CPT-21947 Immunization Each Additional Inj 11:19:17 CDT CPT-11401 Immunization Single Admin 11:19:17 CDT CPT-59221 Port a cath flush 13:28:22 CDT CPT-TCMM Transitional Care Mgmt-Moderate 13:40:15 CDT CPT-G0008 Administration of Influenza Virus Vaccine 13:59:20 CDT CPT-99461 Fluzone High-Dose Intramuscular Suspension 13:59:20 CDT CPT-78817 Venipuncture Draw Fee 09:56:19 CDT CPT-OV Office Visit 15:46:10 CDT
--- OUTSIDE RECORDS SUMMARY | 2017-12-31 15:29 | XMS REPORT | Clinical Summary ---
Author Author Admin, Kaylynn Organization [facility] [employer] Address Unknown Phone Unavailable Allergies, Adverse Reactions, Alerts Allergy Name Reaction Description Start Date Severity Status Provider ERYTHROMYCIN Stomach cramps Moderate Active Prosper Arenas MD CODEINE Critical Active Maliheh Ziglari PHARMACIST APPRENTICE DARVOCET Critical Active Maliheh Ziglari PHARMACIST APPRENTICE LEVAQUIN Critical Active Maliheh Ziglari PHARMACIST APPRENTICE Conditions or Problems Problem Name Problem Code Onset Date Status Entry Date Provider Comment Standard Description Annotate Diabetes, Type 2 250.00 Resolved 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 without 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, type [...] type II, uncontrolled 250.02 Active Maliheh Rodrigoglari PHARMACIST APPRENTICE Diabetes mellitus without mention of complication, type [...] with hyperglycemia 250.00 Active 03/21 Maliheh Ziglari PHARMACIST APPRENTICE Diabetes mellitus without mention of complication, type II or unspecified type, not stated as uncontrolled assisted use of insulin treatment V58.67 Active Luxiheh Rodrigoglari PHARMACIST APPRENTICE Long-term (current) use of insulin Diabetes mellitus, type II with hypoglycemia 250.80 Active 07/22 Maliheh Ziglari PHARMACIST APPRENTICE Diabetes mellitus with other specified manifestations, type II or unspecified type, not stated as uncontrolled 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 Maliheh Ziglari PHARMACIST APPRENTICE Diabetes mellitus with renal manifestations, type II or unspecified type, not stated as uncontrolled Wellness exam V70.0 Active Dee Palmer APRN Routine general medical examination at a health care facility Fitting and adjustment of vascular catheter V58.81 Active 02/06 Dee Palmer APRN Encounter for fitting and adjustment of vascular catheter Unawareness of hypoglycemia in diabetes mellitus, type II 250.80 Active Maliheh Rodrigoglari PHARMACIST APPRENTICE Diabetes mellitus with other specified manifestations, type [...] specified as recurrent) Gastritis Inactive Maliheh Ziglari PHARMACIST APPRENTICE Unspecified gastritis and gastroduodenitis, without mention of [...] 728.87 Active Anjelica SPRAGUE Muscle weakness (generalized) Abdominal pain, right upper quadrant ICD-789.01 Inactive [...] Headache ICD-784.0 Inactive Mekhi Dukes MD Inguinal hernia ICD-550.90 Inactive Mekhi Dukes MD Gastritis Inactive Janis Puente LPN Groin pain, right ICD-789.09 Inactive Mekhi Dukes MD Inguinal pain, right ICD-789.09 Inactive Mekhi Dukes MD Medication List Medication Instructions Start Date Stop Date Generic Name NDC Status Provider Patient Instruction MIDODRINE HCL 5 MG ORAL TABLET 1 tab TID MIDODRINE HCL 73577381878 Active Prosper Arenas MD Active ZOFRAN 8 MG ORAL TABLET Take 1 tablet PO Q8H PRN nausea ONDANSETRON HCL 23726280469 Active Shaina Gibson MA Active CALCIUM CITRATE + D TABLET Take 1 tablet PO daily. CALCIUM CITRATE-VITAMIN D TABS 30932483082 Farida Gibson MA Active SIMVASTATIN 40 MG ORAL TABLET Take 1 PO at bedtime. SIMVASTATIN 92880918088 Active Shaina Arthur LE Active RANITIDINE HCL 150 MG ORAL CAPSULE 1 twice a day as needed for heartburn 2017 RANITIDINE HCL 56834801958 Active Shainajhon GutierrezNenana MA Active PROCHLORPERAZINE MALEATE 10 MG ORAL TABLET Take 1 tablet every 6hrs, prn, nausea PROCHLORPERAZINE MALEATE 32582865664 Active Shaina Arthur LE Active METOPROLOL SUCCINATE ER 25 MG ORAL TABLET EXTENDED RELEASE 24 HOUR 1 pill by mouth daily for blood pressure METOPROLOL SUCCINATE 02128386939 Active Shainajhon Gibson REY Active MEGESTROL ACETATE 40 MG ORAL TABLET Take 1 tablet daily. MEGESTROL ACETATE 43977992443 Active Shaina Nenana REY Active ANTACID CALCIUM 500 MG ORAL TABLET CHEWABLE Take 1 chewable daily. CALCIUM CARBONATE ANTACID 57225304627 Active Shainajhon Gibson REY Active CALCIUM CARBONATE 1250 (500 CA) MG ORAL TABLET CHEWABLE Take 1 tablet daily. CALCIUM CARBONATE 97213628159 Active Shainajhon Gibson REY Active ACYCLOVIR 400 MG ORAL TABLET 1 pill two times daily ACYCLOVIR 10888105525 No Longer Active Prosper Arenas MD Active CITALOPRAM HYDROBROMIDE 20 MG ORAL TABLET 1 daily for depression CITALOPRAM HYDROBROMIDE 19068350073 Active Prosper Arenas MD Active PREDNISONE 20 MG ORAL TABLET 2 tabs daily for 4 days, 1 tab daily for 4 days, 1/2 tab daily for 4 days PREDNISONE 56773677353 No Longer Active Prosper Arenas MD Active AZITHROMYCIN 250 MG ORAL TABLET 2 po qd x 1 day, then 1 po qd x 4 days 05/07 AZITHROMYCIN 05607636365 No Longer Active Dee Palmer APRN Active GUAIFENESIN DM 400-20 MG ORAL TABLET 1 pill by mouth twice daily, if needed for cough DEXTROMETHORPHAN-GUAIFENESIN 79524192587 Active Dee Palmer APRN Active ASPIRIN 81 MG ORAL TABLET 1 po qd ASPIRIN 49301885880 Active Dee Palmer APRN Active CALCIUM 500/D 500-200 MG-UNIT ORAL TABLET one tablet daily CALCIUM CARBONATE-VITAMIN D 69049341398 No Longer Active Dee Palmer APRN Active HYDROCODONE-ACETAMINOPHEN 7.5-325 MG ORAL TABLET 1-2 every 4-6 hrs prn 02/25 HYDROCODONE-ACETAMINOPHEN 60549239308 Active Marina Siddharth BESSY Active ASPIRIN 81 MG ORAL TABLET 1 tablet by mouth daily ASPIRIN 69707325872 No Longer Active [facility] BESSY Active SIMVASTATIN 80 MG ORAL TABLET 1/2 tablet daily SIMVASTATIN 81401479842 No Longer Active Mekhi Dukes MD Active OMEPRAZOLE 20 MG ORAL CAPSULE DELAYED RELEASE 1 qd OMEPRAZOLE 62928593896 No Longer Active Mekhi Dukes MD Active METOPROLOL TARTRATE 25 MG ORAL TABLET 1/2 tablet twice a day METOPROLOL TARTRATE 48766100831 No Longer Active Mekhi Dukes MD Active LISINOPRIL 5 MG ORAL TABLET 1 daily LISINOPRIL 33599103900 No Longer Active Mekhi Dukes MD Active NOVOLOG FLEXPEN 100 UNIT/ML SUBCUTANEOUS SOLUTION PEN-INJECTOR Take 8 units with each meal, add 1u/50 for blood sugars above 150. INSULIN ASPART 92122179077 Active Moy PARISH Active GABAPENTIN 300 MG ORAL CAPSULE 1 tab BID GABAPENTIN 48929782401 Active Tami Miller RN Active PREDNISONE 20 MG ORAL TABLET Take 2 daily for 3 days and then 1 daily for 3 days PREDNISONE 89366951190 No Longer Active Moy PARISH Active BENZONATATE 200 MG ORAL CAPSULE Take 1 tablet 3 times a day as needed for cough BENZONATATE 20644136710 No Longer Active Prosper Arenas MD Active HYDROCHLOROTHIAZIDE 25 MG ORAL TABLET 1 tablet by mouth daily HYDROCHLOROTHIAZIDE 34935802038 No Longer Active Prosper Arenas MD Active ACCU-CHEK JOANNA PLUS IN VITRO STRIP check blood sugars 5x a day, before each meal and bedtime and 15 minutes after treating a low blood. sugar GLUCOSE BLOOD 41214221436 Active Maliheh Ziglari PHARMACIST APPRENTICE Active LANTUS SOLOSTAR 100 UNIT/ML SUBCUTANEOUS SOLUTION PEN-INJECTOR Take 40 units at 7-8pm daily INSULIN GLARGINE 32820395355 Active Maliheh Ziglari PHARMACIST APPRENTICE Active MECLIZINE HCL 25 MG ORAL TABLET 1 daily needed for dizziness 2015 MECLIZINE HCL 86623052854 No Longer Active Maliheh Ziglari PHARMACIST APPRENTICE Active BENZONATATE 200 MG ORAL CAPSULE 1 tab, 2-3 times a day BENZONATATE 85089279831 No Longer Active Maliheh Ziglari PHARMACIST APPRENTICE Active HALOPERIDOL 0.5 MG ORAL TABLET one tablet three times a day HALOPERIDOL 30378711730 No Longer Active Maliheh Ziglari PHARMACIST APPRENTICE Active TRAZODONE HCL 50 MG ORAL TABLET three tablets at bed time TRAZODONE HCL 04298612668 No Longer Active Maliheh Ziglari PHARMACIST APPRENTICE Active REVLIMID 25 MG ORAL CAPSULE one capsule daily for 21 days then off for 7 days LENALIDOMIDE 42534510534 No Longer Active Maliheh Ziglari PHARMACIST APPRENTICE Active ZITHROMAX Z-EDDIE 250 MG ORAL TABLET 2 today, then 1 daily for 4 days AZITHROMYCIN 37992359080 No Longer Active Augustina Mata APRN Active NOVOLIN R RELION 100 UNIT/ML INJECTION SOLUTION 30- 40 units each meal sliding scale INSULIN REGULAR HUMAN 46327192902 No Longer Active Maliheh Ziglari PHARMACIST APPRENTICE Active HYDROCODONE-ACETAMINOPHEN 5-500 MG ORAL TABLET 1-2 FOUR TIMES A DAY, PRN 2010 HYDROCODONE-ACETAMINOPHEN 02137196262 No Longer Active Prosper Arenas MD Active DOXYCYCLINE HYCLATE 100 MG ORAL CAPSULE take one capsule by mouth twice daily for ten days DOXYCYCLINE HYCLATE 78526799301 No Longer Active Mekhi Dukes MD Active DOXYCYCLINE HYCLATE 100 MG ORAL CAPSULE take one capsule by mouth twice daily for ten days DOXYCYCLINE HYCLATE 100 MG ORAL CAPSULE 2983835 DOXYCYCLINE HYCLATE Inactive HYDROCODONE-ACETAMINOPHEN 5-500 MG ORAL [...] days ZITHROMAX Z-EDDIE 250 MG ORAL TABLET 353982 AZITHROMYCIN Inactive REVLIMID 25 MG ORAL CAPSULE one capsule daily for 21 days then off for 7 days REVLIMID 25 MG ORAL CAPSULE LENALIDOMIDE Inactive TRAZODONE HCL 50 MG ORAL TABLET three tablets at bed time TRAZODONE HCL 50 MG ORAL TABLET 882932 TRAZODONE HCL Inactive HALOPERIDOL 0.5 MG ORAL TABLET one tablet three times a day HALOPERIDOL 0.5 MG ORAL TABLET 156456 HALOPERIDOL Inactive BENZONATATE 200 MG ORAL CAPSULE 1 tab, 2-3 times a day BENZONATATE 200 MG ORAL CAPSULE 717896 BENZONATATE Inactive MECLIZINE HCL 25 MG ORAL TABLET 1 daily needed for dizziness 2015 MECLIZINE HCL 25 MG ORAL TABLET 445302 MECLIZINE HCL Inactive HYDROCHLOROTHIAZIDE 25 MG ORAL TABLET 1 tablet by mouth daily HYDROCHLOROTHIAZIDE 25 MG ORAL TABLET 062845 HYDROCHLOROTHIAZIDE Inactive PREDNISONE 20 MG ORAL TABLET Take 2 daily for 3 days and then 1 daily for 3 days PREDNISONE 20 MG ORAL TABLET 611280 PREDNISONE Inactive LISINOPRIL 5 MG ORAL TABLET 1 daily LISINOPRIL 5 MG ORAL TABLET 017458 LISINOPRIL Inactive METOPROLOL TARTRATE 25 MG ORAL TABLET 1/2 tablet twice a day METOPROLOL TARTRATE 25 MG ORAL TABLET 010583 METOPROLOL TARTRATE Inactive OMEPRAZOLE 20 MG ORAL CAPSULE DELAYED RELEASE 1 qd OMEPRAZOLE 20 MG ORAL CAPSULE DELAYED RELEASE 482700 OMEPRAZOLE Inactive SIMVASTATIN 80 MG ORAL TABLET 1/2 tablet daily SIMVASTATIN 80 MG ORAL TABLET 427887 SIMVASTATIN Inactive ASPIRIN 81 MG ORAL TABLET [...] 4 days PREDNISONE 20 MG ORAL TABLET 382728 PREDNISONE Inactive BENZONATATE 200 MG ORAL CAPSULE Take 1 tablet 3 times a day as needed for cough BENZONATATE 200 MG ORAL CAPSULE 779269 BENZONATATE Inactive AZITHROMYCIN 250 MG ORAL TABLET 2 po qd x 1 day, then 1 po qd x 4 days 05/07 AZITHROMYCIN 250 MG ORAL TABLET 718682 AZITHROMYCIN Inactive ACYCLOVIR 400 MG ORAL TABLET 1 pill two times daily ACYCLOVIR 400 MG ORAL TABLET 621817 ACYCLOVIR Inactive Advance Directives Directive Description Start [...] % 11.6-14.8 platelet count 294 10^3/MM^3 10*3/mm3 401-991 6806/05/29 leukocyte count, blood 2.4 10^3/MM^3 10*3/mm3 4.6-10.2 [...] % 11.6-14.8 platelet count 138 10^3/MM^3 10*3/mm3 932-666 7905/06/12 leukocyte count, blood 4.3 10^3/MM^3 10*3/mm3 4.6-10.2 [...] % 11.6-14.8 platelet count 355 10^3/MM^3 10*3/mm3 581-906 2416/06/19 leukocyte count, blood 2.2 10^3/MM^3 10*3/mm3 4.6-10.2 [...] % 11.6-14.8 platelet count 109 10^3/MM^3 10*3/mm3 272-615 6740/07/06 leukocyte count, blood 5.1 10^3/MM^3 10*3/mm3 4.6-10.2 [...] % 11.6-14.8 platelet count 405 10^3/MM^3 10*3/mm3 142-424 Lab Report: CBC W/DIFF, Comp. Metabolic Panel - Chemistry sodium, serum 133 mmol/L 005-489 8952/07/24 carbon dioxide, venous blood 20.6 mmol/L 21.0-32.0 potassium, serum 3.0 mmol/L 3.5-5.2 chloride, serum 100 mmol/L 98-107 blood glucose 193 mg/dL 65-95 urea nitrogen, blood 11 mg/dL 7-18 creatinine, serum 1.28 mg/dL 0.60-1.30 alanine aminotransferase (SGPT), serum 48 U/L 12-78 aspartate aminotransferase (SGOT), serum 22 U/L 15-37 calcium, serum 8.3 mg/dL 8.5-10.1 bilirubin, serum, total 0.50 mg/dL 0.00-1.00 sodium, serum 137 mmol/L 693-565 1903/06/05 carbon dioxide, venous blood 26.0 mmol/L 21.0-32.0 potassium, serum 4.5 mmol/L 3.5-5.2 chloride, serum 100 mmol/L 98-107 blood glucose 100 mg/dL 65-95 urea nitrogen, blood 16 mg/dL 7-18 creatinine, serum 1.67 mg/dL 0.60-1.30 alanine aminotransferase (SGPT), serum 75 U/L -78 aspartate aminotransferase (SGOT), serum 46 U/L 15-37 calcium, serum 9.8 mg/dL 8.5-10.1 bilirubin, serum, total 0.40 mg/dL 0.00-1.00 sodium, serum 124 mmol/L 212-558 4044/07/06 carbon dioxide, venous blood 20.9 mmol/L 21.0-32.0 potassium, serum 4.0 mmol/L 3.5-5.2 chloride, serum 90 mmol/L 98-107 blood glucose 175 mg/dL 65- urea nitrogen, blood 14 mg/dL 7-18 creatinine, serum 1.21 mg/dL 0.60-1.30 alanine aminotransferase (SGPT), serum 70 U/L - aspartate aminotransferase (SGOT), serum 32 U/L 15-37 calcium, serum 8.5 mg/dL 8.5-10.1 bilirubin, serum, total 0.80 mg/dL 0.00-1.00 sodium, serum 133 mmol/L 982-595 9601/08/01 carbon dioxide, venous blood 22.0 mmol/L 21.0-32.0 potassium, serum 3.4 mmol/L 3.5-5.2 chloride, serum 96 mmol/L 98-107 blood glucose 162 mg/dL - urea nitrogen, blood 13 mg/dL - creatinine, serum 1.16 mg/dL 0.60-1.30 alanine aminotransferase (SGPT), serum 61 U/L aspartate aminotransferase (SGOT), serum 33 U/L 15- calcium, serum 8.5 mg/dL 8.5-10.1 bilirubin, serum, total 0.70 mg/dL 0.00-1.00 sodium, serum 136 mmol/L 657-473 8555/09/04 carbon dioxide, venous blood 23.3 mmol/L 21.0-32.0 potassium, serum 3.6 mmol/L 3.5-5.2 chloride, serum 101 mmol/L 98-107 blood glucose 221 mg/dL 65- urea nitrogen, blood 13 mg/dL - creatinine, serum 1.14 mg/dL 0.60-1.30 alanine aminotransferase (SGPT), serum 49 U/L aspartate aminotransferase (SGOT), serum 30 U/L 15-37 alkaline phosphatase, serum 78 U/L 50-136 calcium, serum 8.0 mg/dL 8.5-10.1 bilirubin, serum, total 0.50 mg/dL 0.00-1.00 sodium, serum 134 mmol/L 554-661 7829/05/15 carbon dioxide, venous blood 23.5 mmol/L 21.0-32.0 potassium, serum 4.8 mmol/L 3.5-5.2 chloride, serum 101 mmol/L 98-107 blood glucose 139 mg/dL 65-95 urea nitrogen, blood 19 mg/dL 7-18 creatinine, serum 1.79 mg/dL 0.60-1.30 alanine aminotransferase (SGPT), serum 140 U/L - aspartate aminotransferase (SGOT), serum 104 U/L - calcium, serum 8.5 mg/dL 8.5-10.1 bilirubin, serum, total 0.40 mg/dL 0.00-1.00 sodium, serum 135 mmol/L 446-511 0356/04/10 carbon dioxide, venous blood 26.1 mmol/L 21.0-32.0 potassium, serum 4.2 mmol/L 3.5-5.2 chloride, serum 100 mmol/L 98-107 blood glucose 293 mg/dL 65-110 urea nitrogen, blood 18 mg/dL 7-18 creatinine, serum 2.06 mg/dL 0.60-1.30 alanine aminotransferase (SGPT), serum 59 U/L -78 aspartate aminotransferase (SGOT), serum 47 U/L 15-37 calcium, serum 8.6 mg/dL 8.5-10.1 bilirubin, serum, total 0.30 mg/dL 0.00-1.00 sodium, serum 139 mmol/L 667-432 7885/05/01 carbon dioxide, venous blood 25.2 mmol/L 21.0-32.0 potassium, serum 4.1 mmol/L 3.5-5.2 chloride, serum 104 mmol/L 98-107 blood glucose 64 mg/dL 65-95 urea nitrogen, blood 16 mg/dL 7-18 creatinine, serum 1.55 mg/dL 0.60-1.30 alanine aminotransferase (SGPT), serum 80 U/L 12-78 aspartate aminotransferase (SGOT), serum 53 U/L 15-37 calcium, serum 8.1 mg/dL 8.5-10.1 bilirubin, serum, total 0.40 mg/dL 0.00-1.00 sodium, serum 135 mmol/L 655-090 1188/05/08 carbon dioxide, venous blood 29.0 mmol/L 21.0-32.0 [...] % 11.6-14.8 platelet count 36 10^3/MM^3 10*3/mm3 949-908 6518/05/08 leukocyte count, blood 1.8 10^3/MM^3 10*3/mm3 4.6-10.2 [...] % 11.6-14.8 platelet count 103 10^3/MM^3 10*3/mm3 066-017 0533/05/01 leukocyte count, blood 5.0 10^3/MM^3 10*3/mm3 4.6-10.2 [...] % 11.6-14.8 platelet count 271 10^3/MM^3 10*3/mm3 597-481 9088/04/10 leukocyte count, blood 4.8 10^3/MM^3 10*3/mm3 4.6-10.2 [...] % 11.6-14.8 platelet count 200 10^3/MM^3 10*3/mm3 655-742 9972/06/05 leukocyte count, blood 2.7 10^3/MM^3 10*3/mm3 4.6-10.2 [...] % 11.6-14.8 platelet count 84 10^3/MM^3 10*3/mm3 358-357 8126/09/04 leukocyte count, blood 2.7 10^3/MM^3 10*3/mm3 4.6-10.2 [...] % 11.6-14.8 platelet count 216 10^3/MM^3 10*3/mm3 296-954 7134/08/01 leukocyte count, blood 5.1 10^3/MM^3 10*3/mm3 4.6-10.2 [...] % 11.6-14.8 platelet count 235 10^3/MM^3 10*3/mm3 354-522 2576/07/24 leukocyte count, blood 4.3 10^3/MM^3 10*3/mm3 4.6-10.2 [...] % 11.6-14.8 platelet count 262 10^3/MM^3 10*3/mm3 142-424 Lab Report: Comp. Metabolic Panel - Chemistry sodium, serum 132 mmol/L 082-647 6988/06/19 carbon dioxide, venous blood 20.9 mmol/L 21.0-32.0 potassium, serum 3.9 mmol/L 3.5-5.2 chloride, serum 102 mmol/L 98-107 blood glucose 259 mg/dL 65-95 urea nitrogen, blood 16 mg/dL 7-18 creatinine, serum 1.46 mg/dL 0.60-1.30 alanine aminotransferase (SGPT), serum 62 U/L 12-78 aspartate aminotransferase (SGOT), serum 27 U/L 15-37 calcium, serum 7.5 mg/dL 8.5-10.1 bilirubin, serum, total 0.50 mg/dL 0.00-1.00 sodium, serum 134 mmol/L 588-677 1505/06/12 carbon dioxide, venous blood 21.9 mmol/L 21.0-32.0 potassium, serum 4.4 mmol/L 3.5-5.2 chloride, serum 97 mmol/L 98-107 blood glucose 191 mg/dL 65-95 urea nitrogen, blood 23 mg/dL 7- creatinine, serum 1.68 mg/dL 0.60-1.30 alanine aminotransferase (SGPT), serum 64 U/L aspartate aminotransferase (SGOT), serum 35 U/L 15- calcium, serum 8.9 mg/dL 8.5-10.1 bilirubin, serum, total 0.70 mg/dL 0.00-1.00 sodium, serum 136 mmol/L 817-903 9382/05/29 carbon dioxide, venous blood 22.4 mmol/L 21.0-32.0 potassium, serum 4.0 mmol/L 3.5-5.2 chloride, serum 104 mmol/L 98-107 blood glucose 128 mg/dL 65-95 urea nitrogen, blood 20 mg/dL - creatinine, serum 1.47 mg/dL 0.60-1.30 alanine aminotransferase (SGPT), serum 80 U/L aspartate aminotransferase (SGOT), serum 38 U/L - calcium, serum 9.1 mg/dL 8.5-10.1 bilirubin, serum, total 0.40 mg/dL 0.00-1.00 sodium, serum 134 mmol/L 526-290 9926/05/22 carbon dioxide, venous blood 25.2 mmol/L 21.0-32.0 potassium, serum 5.0 mmol/L 3.5-5.2 chloride, serum 100 mmol/L 98-107 blood glucose 278 mg/dL 65-95 urea nitrogen, blood 19 mg/dL - creatinine, [...] mg/dL Encounters Code Encounter Date Provider Facility CPT-02230 [id number] Vst-Est Level IV 11:03:20 CDT Prosper Arenas MD [facility] CPT-31098 Level 3 Est. Patient 14:09:25 HUMAN RESOURCES OFFICE MANAGER Dee Palmer APRN [facility] CPT-17944 Level 3 Est. Patient 10:53:32 [facility]UMAN RESOURCES [facility] Level 3 Est. Patient 17:11:55 HUMAN RESOURCES OFFICE MANAGER Ismael Gracia MD [facility] CPT-71246 Level 4 Est. Patient 16:29:19 CDT Mekhi Dukes MD [facility] CPT-14939 Level 3 New Patient 17:05:24 CDT Ismael Gracia MD [facility] CPT-62045 Level 2 Est. Patient 15:43:17 CDT Mekhi Dukes MD [facility] CPT-05671 Level 3 Est. Patient 09:30:37 [facility] Level 3 Est. Patient 10:00:14 CDT Mekhi Dukes MD [facility] CPT-92883 Level 3 Est. Patient 12:24:[address] [facility]24 Level 3 Est. Patient 14:34:57 CDT Prosper Arenas MD [facility] CPT-84362 Level 3 New Patient 15:44:53 HUMAN RESOURCES OFFICE MANAGER Mekhi Dukes MD [facility]-32366 Level 3 Est. Patient 14:53:34 HUMAN RESOURCES OFFICE MANAGER Prosper Arenas MD [facility]-36587 Level 4 Est. Patient 10:05:41 HUMAN RESOURCES OFFICE MANAGER Moy Bradshawrex [facility]-78214 Level 3 Est. Patient 11:18:32 CDT Moy Garcia [facility]-28854 Level 4 Est. Patient 11:05:10 CDT Moy Garcia [facility]-61160 Level 3 Est. Patient 11:08:27 HUMAN RESOURCES OFFICE MANAGER Moy Garcia [facility]-08363 Level 4 Est. Patient 10:43:59 CDT Prosper Arenas MD [facility]-40300 Level 3 Est. Patient 10:51:19 CDT Moy Garcia [facility]-03548 Level 3 Est. Patient 10:20:31 CDT Moy Garcia [facility] CPT-83552 Level 3 Est. Patient 17:08:45 CDT Moy Garcia [facility] CPT-60933 Level 2 Est. Patient 13:54:36 CDT Augustina Mata APRN [facility]-79993 Level 3 Est. Patient 12:00:42 CDT Prosper Arenas MD [facility]-05044 Level 3 Est. Patient 09:57:28 HUMAN RESOURCES OFFICE MANAGER Moy Rodrigokymrex [facility]-80852 Level 3 Est. Patient 11:41:19 HUMAN RESOURCES OFFICE MANAGER Moy Rodrigosania [facility]-74924 Level 4 Est. Patient 17:07:35 HUMAN RESOURCES OFFICE MANAGER Moy Rodrigokymrex [facility]-06949 Level 5 Est. Patient 14:33:32 CDT Moy PARISH [facility] CPT-96095 Level 3 Est. Patient 12:25:35 CDT Prosper Arenas MD [facility] Procedures Code Procedure Name Date Entry Date Standard Description CPT-33839 Chest, 2 views 14:17:20 HUMAN RESOURCES OFFICE MANAGER CPT-68772 Postop F/U Visit 14:44:45 HUMAN RESOURCES OFFICE MANAGER CPT-27356 Postop F/U Visit 17:20:20 HUMAN RESOURCES OFFICE MANAGER CPT-G0439 Subsequent Annual Wellness Exam 08:39:41 HUMAN RESOURCES OFFICE MANAGER CPT-000 Give Appropriate Flu Vaccine 10:13:55 HUMAN RESOURCES OFFICE MANAGER CPT-000 Give Immunizations Due 10:13:55 HUMAN RESOURCES OFFICE MANAGER CPT-32404 HGBA1C - LAB USE ONLY 09:42:47 HUMAN RESOURCES OFFICE MANAGER CPT-92406 TPSA - LAB USE ONLY 09:42:46 HUMAN RESOURCES OFFICE MANAGER CPT-24468 Venipuncture Draw Fee 09:42:46 HUMAN RESOURCES OFFICE MANAGER CPT-44157 Port a cath flush 13:33:18 HUMAN RESOURCES OFFICE MANAGER CPT-90880 First Vx - Ix admin for Medicare patients 10:42:57 HUMAN RESOURCES OFFICE MANAGER CPT-20616 Fluzone Preservative Free Intramuscular Suspension 10:42 :57 HUMAN RESOURCES OFFICE MANAGER CPT-G0438 Initial Annual Wellness Exam 10:13:55 HUMAN RESOURCES OFFICE MANAGER CPT-000 Give Appropriate Flu Vaccine 10:44:04 CDT CPT-000 Give Pneumovax 10:44:03 CDT CPT-02426 Port a cath flush 17:04:43 CDT CPT-19586 Prevnar 13 11:19:17 CDT CPT-33109 Fluzone Quadrivalent preservative free (>=3yrs.) 11:19: 17 CDT CPT-73294 Immunization Each Additional Inj 11:19:17 CDT CPT-40032 Immunization Single Admin 11:19:17 CDT CPT-18938 Port a cath flush 13:28:22 CDT CPT-TCMM Transitional Care Mgmt-Moderate 13:40:15 CDT CPT-G0008 Administration of Influenza Virus Vaccine 13:59:20 CDT CPT-49175 Fluzone High-Dose Intramuscular Suspension 13:59:20 CDT CPT-15137 Venipuncture Draw Fee 09:56:19 CDT CPT-OV Office Visit 15:46:10 CDT
--- OUTSIDE RECORDS SUMMARY | 2017-12-31 15:31 | XMS REPORT | Clinical Summary ---
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 DARVOCET Critical Active Maliheh Ziglari [employer]SHM[employer]OW MACHINE WORKER LEVAQUIN Critical Active Maliheh Ziglari [employer]SHMALLOW MACHINE WORKER Conditions or Problems Problem Name Problem Code Onset Date Status Entry Date Provider Comment Standard Description Annotate Diabetes, Type 2 250.00 Resolved 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, type II [...] with hyperglycemia 250.00 Active 03/21 Maliheh Ziglari [employer]SHMALLOW MACHINE WORKER Diabetes mellitus without mention of complication, type II or unspecified type, not stated as uncontrolled FDC use of insulin treatment V58.67 Active Jose Antonioeh Rodrigoglari [employer]SHM[employer]OW MACHINE WORKER Long-term (current) use of insulin Diabetes mellitus, type II with hypoglycemia 250.80 Active 07/22 Maliheh Ziglari [employer]SHMALLOW MACHINE WORKER Diabetes mellitus with other specified manifestations, type II or unspecified type, not stated as uncontrolled 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 Maliheh Ziglari [employer] MACHINE WORKER Diabetes mellitus with renal manifestations, type II or unspecified type, not stated as uncontrolled Wellness exam V70.0 Active Dee Palmer APRN Routine general medical examination at a health care facility Fitting and adjustment of vascular catheter V58.81 Active 02/06 Dee Palmer APRN Encounter for fitting and adjustment of vascular catheter Unawareness of hypoglycemia in diabetes mellitus, type II 250.80 Active Maliheh Rodrigoglari [employer]SHMALL[employer] MACHINE WORKER Diabetes mellitus with other specified manifestations, [...] specified as recurrent) Gastritis Inactive Maliheh Ziglari [employer]SHMALLOW MACHINE WORKER Unspecified gastritis and gastroduodenitis, without mention [...] ORAL TABLET 1 tab TID MIDODRINE HCL 81208084966 Active Prosper Arenas MD Active ZOFRAN 8 MG ORAL TABLET Take 1 tablet PO Q8H PRN nausea ONDANSETRON HCL 69663190360 Active Shaina Gibson MA Active CALCIUM CITRATE + D TABLET Take 1 tablet PO daily. CALCIUM CITRATE-VITAMIN D TABS 95519159352 Active Shaina Gibson MA Active SIMVASTATIN 40 MG ORAL TABLET Take 1 PO at bedtime. SIMVASTATIN 91076541901 Active Shaina Arthur REY Active RANITIDINE HCL 150 MG ORAL CAPSULE 1 twice a day as needed for heartburn 2017 RANITIDINE HCL 45619623017 Active Shainajhon GutierrezArthur MA Active PROCHLORPERAZINE MALEATE 10 MG ORAL TABLET Take 1 tablet every 6hrs, prn, nausea PROCHLORPERAZINE MALEATE 33683528415 Active Shaina Arthur LE Active METOPROLOL SUCCINATE ER 25 MG ORAL TABLET EXTENDED RELEASE 24 HOUR 1 pill by mouth daily for blood pressure METOPROLOL SUCCINATE 48954285190 Active Shaina Norman MA Active MEGESTROL ACETATE 40 MG ORAL TABLET Take 1 tablet daily. MEGESTROL ACETATE 09054415493 Active Shaina Norman REY Active ANTACID CALCIUM 500 MG ORAL TABLET CHEWABLE Take 1 chewable daily. CALCIUM CARBONATE ANTACID 80262827142 Active Shainajhon Gibson REY Active CALCIUM CARBONATE 1250 (500 CA) MG ORAL TABLET CHEWABLE Take 1 tablet daily. CALCIUM CARBONATE 47484562717 Active Shaina Arthur REY Active ACYCLOVIR 400 MG ORAL TABLET 1 pill two times daily ACYCLOVIR 36884420570 No Longer Active Prosper Arenas MD Active CITALOPRAM HYDROBROMIDE 20 MG ORAL TABLET 1 daily for depression CITALOPRAM HYDROBROMIDE 70753832860 Active Prosper Arenas MD Active PREDNISONE 20 MG ORAL TABLET 2 tabs daily for 4 days, 1 tab daily for 4 days, 1/2 tab daily for 4 days PREDNISONE 03984052515 No Longer Active Prosper Arenas MD Active AZITHROMYCIN 250 MG ORAL TABLET 2 po qd x 1 day, then 1 po qd x 4 days 05/07 AZITHROMYCIN 22971183715 No Longer Active Dee Palmer APRN Active GUAIFENESIN DM 400-20 MG ORAL TABLET 1 pill by mouth twice daily, if needed for cough DEXTROMETHORPHAN-GUAIFENESIN 78104503482 Active Dee Palmer APRN Active ASPIRIN 81 MG ORAL TABLET 1 po qd ASPIRIN 96988005972 Active Dee Palmer APRN Active CALCIUM 500/D 500-200 MG-UNIT ORAL TABLET one tablet daily CALCIUM CARBONATE-VITAMIN D 57599964183 No Longer Active Dee Palmer APRN Active HYDROCODONE-ACETAMINOPHEN 7.5-325 MG ORAL TABLET 1-2 every 4-6 hrs prn 02/25 HYDROCODONE-ACETAMINOPHEN 28214598828 Active Marina King BESSY Active ASPIRIN 81 MG ORAL TABLET 1 tablet by mouth daily ASPIRIN 27609683927 No Longer Active [facility] BESSY Active SIMVASTATIN 80 MG ORAL TABLET 1/2 tablet daily SIMVASTATIN 70527208266 No Longer Active Mekhi Dukes MD Active OMEPRAZOLE 20 MG ORAL CAPSULE DELAYED RELEASE 1 qd OMEPRAZOLE 79975759100 No Longer Active Mekhi Dukes MD Active METOPROLOL TARTRATE 25 MG ORAL TABLET 1/2 tablet twice a day METOPROLOL TARTRATE 18303158708 No Longer Active Mekhi Dukes MD Active LISINOPRIL 5 MG ORAL TABLET 1 daily LISINOPRIL 55404371852 No Longer Active Mekhi Dukes MD Active NOVOLOG FLEXPEN 100 UNIT/ML SUBCUTANEOUS SOLUTION PEN-INJECTOR Take 8 units with each meal, add 1u/50 for blood sugars above 150. INSULIN ASPART 35509530301 Active Moy PARISH Active GABAPENTIN 300 MG ORAL CAPSULE 1 tab BID GABAPENTIN 26562619911 Active Tami Miller RN Active PREDNISONE 20 MG ORAL TABLET Take 2 daily for 3 days and then 1 daily for 3 days PREDNISONE 47375084553 No Longer Active Moy PARISH Active BENZONATATE 200 MG ORAL CAPSULE Take 1 tablet 3 times a day as needed for cough BENZONATATE 67465573178 No Longer Active Prosper Arenas MD Active HYDROCHLOROTHIAZIDE 25 MG ORAL TABLET 1 tablet by mouth daily HYDROCHLOROTHIAZIDE 82254775421 No Longer Active Prosper Arenas MD Active ACCU-CHEK JOANNA PLUS IN VITRO STRIP check blood sugars 5x a day, before each meal and bedtime and 15 minutes after treating a low blood. sugar GLUCOSE BLOOD 84864928521 Active Maliheh Ziglari MARSHMALLOW MACHINE WORKER Active LANTUS SOLOSTAR 100 UNIT/ML SUBCUTANEOUS SOLUTION PEN-INJECTOR Take 40 units at 7-8pm daily INSULIN GLARGINE 99145689445 Active Maliheh Ziglari MARSHMALLOW MACHINE WORKER Active MECLIZINE HCL 25 MG ORAL TABLET 1 daily needed for dizziness 2015 MECLIZINE HCL 17710749535 No Longer Active Maliheh Ziglari MARSHMALLOW MACHINE WORKER Active BENZONATATE 200 MG ORAL CAPSULE 1 tab, 2-3 times a day BENZONATATE 92880625781 No Longer Active Maliheh Ziglari MARSHMALLOW MACHINE WORKER Active HALOPERIDOL 0.5 MG ORAL TABLET one tablet three times a day HALOPERIDOL 89357875591 No Longer Active Maliheh Ziglari MARSHMALLOW MACHINE WORKER Active TRAZODONE HCL 50 MG ORAL TABLET three tablets at bed time TRAZODONE HCL 21932585965 No Longer Active Maliheh Ziglari MARSHMALLOW MACHINE WORKER Active REVLIMID 25 MG ORAL CAPSULE one capsule daily for 21 days then off for 7 days LENALIDOMIDE 40196129835 No Longer Active Maliheh Ziglari MARSHMALLOW MACHINE WORKER Active ZITHROMAX Z-EDDIE 250 MG ORAL TABLET 2 today, then 1 daily for 4 days AZITHROMYCIN 70047879746 No Longer Active Augustina Mata APRN Active NOVOLIN R RELION 100 UNIT/ML INJECTION SOLUTION 30- 40 units each meal sliding scale INSULIN REGULAR HUMAN 54108286179 No Longer Active Maliheh Ziglari MARSHMALLOW MACHINE WORKER Active HYDROCODONE-ACETAMINOPHEN 5-500 MG ORAL TABLET 1-2 FOUR TIMES A DAY, PRN 2010 HYDROCODONE-ACETAMINOPHEN 71739286081 No Longer Active Prosper Arenas MD Active DOXYCYCLINE HYCLATE 100 MG ORAL CAPSULE take one capsule by mouth twice daily for ten days DOXYCYCLINE HYCLATE 25776609995 No Longer Active Mekhi Dukes MD Active DOXYCYCLINE HYCLATE 100 MG ORAL CAPSULE take one capsule by mouth twice daily for ten days DOXYCYCLINE HYCLATE 100 MG ORAL CAPSULE 5902655 DOXYCYCLINE HYCLATE Inactive HYDROCODONE-ACETAMINOPHEN 5-500 MG ORAL [...] days ZITHROMAX Z-EDDIE 250 MG ORAL TABLET 549164 AZITHROMYCIN Inactive REVLIMID 25 MG ORAL CAPSULE one capsule daily for 21 days then off for 7 days REVLIMID 25 MG ORAL CAPSULE LENALIDOMIDE Inactive TRAZODONE HCL 50 MG ORAL TABLET three tablets at bed time TRAZODONE HCL 50 MG ORAL TABLET 881870 TRAZODONE HCL Inactive HALOPERIDOL 0.5 MG ORAL TABLET one tablet three times a day HALOPERIDOL 0.5 MG ORAL TABLET 451231 HALOPERIDOL Inactive BENZONATATE 200 MG ORAL CAPSULE 1 tab, 2-3 times a day BENZONATATE 200 MG ORAL CAPSULE 713118 BENZONATATE Inactive MECLIZINE HCL 25 MG ORAL TABLET 1 daily needed for dizziness 2015 MECLIZINE HCL 25 MG ORAL TABLET 303756 MECLIZINE HCL Inactive HYDROCHLOROTHIAZIDE 25 MG ORAL TABLET 1 tablet by mouth daily HYDROCHLOROTHIAZIDE 25 MG ORAL TABLET 581900 HYDROCHLOROTHIAZIDE Inactive PREDNISONE 20 MG ORAL TABLET Take 2 daily for 3 days and then 1 daily for 3 days PREDNISONE 20 MG ORAL TABLET 953468 PREDNISONE Inactive LISINOPRIL 5 MG ORAL TABLET 1 daily LISINOPRIL 5 MG ORAL TABLET 370559 LISINOPRIL Inactive METOPROLOL TARTRATE 25 MG ORAL TABLET 1/2 tablet twice a day METOPROLOL TARTRATE 25 MG ORAL TABLET 295062 METOPROLOL TARTRATE Inactive OMEPRAZOLE 20 MG ORAL CAPSULE DELAYED RELEASE 1 qd OMEPRAZOLE 20 MG ORAL CAPSULE DELAYED RELEASE 620414 OMEPRAZOLE Inactive SIMVASTATIN 80 MG ORAL TABLET 1/2 tablet daily SIMVASTATIN 80 MG ORAL TABLET 083342 SIMVASTATIN Inactive ASPIRIN 81 MG ORAL TABLET [...] 4 days PREDNISONE 20 MG ORAL TABLET 815587 PREDNISONE Inactive BENZONATATE 200 MG ORAL CAPSULE Take 1 tablet 3 times a day as needed for cough BENZONATATE 200 MG ORAL CAPSULE 425172 BENZONATATE Inactive AZITHROMYCIN 250 MG ORAL TABLET 2 po qd x 1 day, then 1 po qd x 4 days 05/07 AZITHROMYCIN 250 MG ORAL TABLET 634055 AZITHROMYCIN Inactive ACYCLOVIR 400 MG ORAL TABLET 1 pill two times daily ACYCLOVIR 400 MG ORAL TABLET 639836 ACYCLOVIR Inactive Advance Directives Directive Description Start [...] % 11.6-14.8 platelet count 294 10^3/MM^3 10*3/mm3 074-103 2309/05/29 leukocyte count, blood 2.4 10^3/MM^3 10*3/mm3 4.6-10.2 [...] % 11.6-14.8 platelet count 138 10^3/MM^3 10*3/mm3 461-257 7820/06/12 leukocyte count, blood 4.3 10^3/MM^3 10*3/mm3 4.6-10.2 [...] % 11.6-14.8 platelet count 355 10^3/MM^3 10*3/mm3 211-344 9212/06/19 leukocyte count, blood 2.2 10^3/MM^3 10*3/mm3 4.6-10.2 [...] % 11.6-14.8 platelet count 109 10^3/MM^3 10*3/mm3 687-305 0854/07/06 leukocyte count, blood 5.1 10^3/MM^3 10*3/mm3 4.6-10.2 [...] Panel - Chemistry sodium, serum 133 mmol/L 902-039 8678/07/24 carbon dioxide, venous blood 20.6 mmol/L 21.0-32.0 potassium, serum 3.0 mmol/L 3.5-5.2 chloride, serum 100 mmol/L 98-107 blood glucose 193 mg/dL 65-95 urea nitrogen, blood 11 mg/dL 7-18 creatinine, serum 1.28 mg/dL 0.60-1.30 alanine aminotransferase (SGPT), serum 48 U/L 12-78 aspartate aminotransferase (SGOT), serum 22 U/L 15-37 calcium, serum 8.3 mg/dL 8.5-10.1 bilirubin, serum, total 0.50 mg/dL 0.00-1.00 sodium, serum 137 mmol/L 800-238 6499/06/05 carbon dioxide, venous blood 26.0 mmol/L 21.0-32.0 potassium, serum 4.5 mmol/L 3.5-5.2 chloride, serum 100 mmol/L 98-107 blood glucose 100 mg/dL 65-95 urea nitrogen, blood 16 mg/dL 7-18 creatinine, serum 1.67 mg/dL 0.60-1.30 alanine aminotransferase (SGPT), serum 75 U/L -78 aspartate aminotransferase (SGOT), serum 46 U/L 15-37 calcium, serum 9.8 mg/dL 8.5-10.1 bilirubin, serum, total 0.40 mg/dL 0.00-1.00 sodium, serum 124 mmol/L 925-444 2489/07/06 carbon dioxide, venous blood 20.9 mmol/L 21.0-32.0 potassium, serum 4.0 mmol/L 3.5-5.2 chloride, serum 90 mmol/L 98-107 blood glucose 175 mg/dL 65- urea nitrogen, blood 14 mg/dL 7- creatinine, serum 1.21 mg/dL 0.60-1.30 alanine aminotransferase (SGPT), serum 70 U/L - aspartate aminotransferase (SGOT), serum 32 U/L 15-37 calcium, serum 8.5 mg/dL 8.5-10.1 bilirubin, serum, total 0.80 mg/dL 0.00-1.00 sodium, serum 133 mmol/L 819-985 9349/08/01 carbon dioxide, venous blood 22.0 mmol/L 21.0-32.0 potassium, serum 3.4 mmol/L 3.5-5.2 chloride, serum 96 mmol/L 98-107 blood glucose 162 mg/dL - urea nitrogen, blood 13 mg/dL - creatinine, serum 1.16 mg/dL 0.60-1.30 alanine aminotransferase (SGPT), serum 61 U/L aspartate aminotransferase (SGOT), serum 33 U/L 15- calcium, serum 8.5 mg/dL 8.5-10.1 bilirubin, serum, total 0.70 mg/dL 0.00-1.00 sodium, serum 136 mmol/L 321-180 2380/09/04 carbon dioxide, venous blood 23.3 mmol/L 21.0-32.0 potassium, serum 3.6 mmol/L 3.5-5.2 chloride, serum 101 mmol/L 98-107 blood glucose 221 mg/dL - urea nitrogen, blood 13 mg/dL - creatinine, serum 1.14 mg/dL 0.60-1.30 alanine aminotransferase (SGPT), serum 49 U/L aspartate aminotransferase (SGOT), serum 30 U/L 15-37 alkaline phosphatase, serum 78 U/L 50-136 calcium, serum 8.0 mg/dL 8.5-10.1 bilirubin, serum, total 0.50 mg/dL 0.00-1.00 sodium, serum 134 mmol/L 331-732 3017/05/15 carbon dioxide, venous blood 23.5 mmol/L 21.0-32.0 potassium, serum 4.8 mmol/L 3.5-5.2 chloride, serum 101 mmol/L 98-107 blood glucose 139 mg/dL 65-95 urea nitrogen, blood 19 mg/dL 7-18 creatinine, serum 1.79 mg/dL 0.60-1.30 alanine aminotransferase (SGPT), serum 140 U/L - aspartate aminotransferase (SGOT), serum 104 U/L - calcium, serum 8.5 mg/dL 8.5-10.1 bilirubin, serum, total 0.40 mg/dL 0.00-1.00 sodium, serum 135 mmol/L 030-857 4626/04/10 carbon dioxide, venous blood 26.1 mmol/L 21.0-32.0 potassium, serum 4.2 mmol/L 3.5-5.2 chloride, serum 100 mmol/L 98-107 blood glucose 293 mg/dL 65-110 urea nitrogen, blood 18 mg/dL 7-18 creatinine, serum 2.06 mg/dL 0.60-1.30 alanine aminotransferase (SGPT), serum 59 U/L -78 aspartate aminotransferase (SGOT), serum 47 U/L 15-37 calcium, serum 8.6 mg/dL 8.5-10.1 bilirubin, serum, total 0.30 mg/dL 0.00-1.00 sodium, serum 139 mmol/L 100-913 0133/05/01 carbon dioxide, venous blood 25.2 mmol/L 21.0-32.0 potassium, serum 4.1 mmol/L 3.5-5.2 chloride, serum 104 mmol/L 98-107 blood glucose 64 mg/dL 65-95 urea nitrogen, blood 16 mg/dL 7-18 creatinine, serum 1.55 mg/dL 0.60-1.30 alanine aminotransferase (SGPT), serum 80 U/L 12-78 aspartate aminotransferase (SGOT), serum 53 U/L 15-37 calcium, serum 8.1 mg/dL 8.5-10.1 bilirubin, serum, total 0.40 mg/dL 0.00-1.00 sodium, serum 135 mmol/L 189-734 8454/05/08 carbon dioxide, venous blood 29.0 mmol/L 21.0-32.0 [...] % 11.6-14.8 platelet count 36 10^3/MM^3 10*3/mm3 386-502 9700/05/08 leukocyte count, blood 1.8 10^3/MM^3 10*3/mm3 4.6-10.2 [...] % 11.6-14.8 platelet count 103 10^3/MM^3 10*3/mm3 630-431 1327/05/01 leukocyte count, blood 5.0 10^3/MM^3 10*3/mm3 4.6-10.2 [...] % 11.6-14.8 platelet count 271 10^3/MM^3 10*3/mm3 652-408 9885/04/10 leukocyte count, blood 4.8 10^3/MM^3 10*3/mm3 4.6-10.2 [...] % 11.6-14.8 platelet count 200 10^3/MM^3 10*3/mm3 230-680 1036/06/05 leukocyte count, blood 2.7 10^3/MM^3 10*3/mm3 4.6-10.2 [...] % 11.6-14.8 platelet count 84 10^3/MM^3 10*3/mm3 144-794 5441/09/04 leukocyte count, blood 2.7 10^3/MM^3 10*3/mm3 4.6-10.2 [...] % 11.6-14.8 platelet count 216 10^3/MM^3 10*3/mm3 127-985 7413/08/01 leukocyte count, blood 5.1 10^3/MM^3 10*3/mm3 4.6-10.2 [...] % 11.6-14.8 platelet count 235 10^3/MM^3 10*3/mm3 005-435 1375/07/24 leukocyte count, blood 4.3 10^3/MM^3 10*3/mm3 4.6-10.2 [...] Panel - Chemistry sodium, serum 132 mmol/L 162-185 0223/06/19 carbon dioxide, venous blood 20.9 mmol/L 21.0-32.0 potassium, serum 3.9 mmol/L 3.5-5.2 chloride, serum 102 mmol/L 98-107 blood glucose 259 mg/dL 65-95 urea nitrogen, blood 16 mg/dL 7-18 creatinine, serum 1.46 mg/dL 0.60-1.30 alanine aminotransferase (SGPT), serum 62 U/L 12-78 aspartate aminotransferase (SGOT), serum 27 U/L 15-37 calcium, serum 7.5 mg/dL 8.5-10.1 bilirubin, serum, total 0.50 mg/dL 0.00-1.00 sodium, serum 134 mmol/L 740-725 0904/06/12 carbon dioxide, venous blood 21.9 mmol/L 21.0-32.0 potassium, serum 4.4 mmol/L 3.5-5.2 chloride, serum 97 mmol/L 98-107 blood glucose 191 mg/dL 65-95 urea nitrogen, blood 23 mg/dL 7- creatinine, serum 1.68 mg/dL 0.60-1.30 alanine aminotransferase (SGPT), serum 64 U/L aspartate aminotransferase (SGOT), serum 35 U/L 15- calcium, serum 8.9 mg/dL 8.5-10.1 bilirubin, serum, total 0.70 mg/dL 0.00-1.00 sodium, serum 136 mmol/L 323-062 7079/05/29 carbon dioxide, venous blood 22.4 mmol/L 21.0-32.0 potassium, serum 4.0 mmol/L 3.5-5.2 chloride, serum 104 mmol/L 98-107 blood glucose 128 mg/dL 65- urea nitrogen, blood 20 mg/dL - creatinine, serum 1.47 mg/dL 0.60-1.30 alanine aminotransferase (SGPT), serum 80 U/L aspartate aminotransferase (SGOT), serum 38 U/L - calcium, serum 9.1 mg/dL 8.5-10.1 bilirubin, serum, total 0.40 mg/dL 0.00-1.00 sodium, serum 134 mmol/L 713-849 2032/05/22 carbon dioxide, venous blood 25.2 mmol/L 21.0-32.0 [...] mg/dL Encounters Code Encounter Date Provider Facility CPT-65660 [id number] Vst-Est Level IV 11:03:20 CDT Prosper Arenas MD [facility] CPT-15934 Level 3 Est. Patient 14:09:25 METAL PICKLING EQUIPMENT OPERATOR Dee Palmer APRN [facility] CPT-32077 Level 3 Est. Patient 10:53:32 METAL PICKLING EQUIPMENT OPERATOR [facility] Level 3 Est. Patient 17:11:55 METAL PICKLING EQUIPMENT OPERATOR Ismael Gracia MD [facility] CPT-37393 Level 4 Est. Patient 16:29:19 CDT Mekhi Dukes MD [facility] CPT-24286 Level 3 New Patient 17:05:24 CDT Ismael Gracia MD [facility] CPT-16331 Level 2 Est. Patient 15:43:17 CDT Mekhi Dukes MD [facility] CPT-34067 Level 3 Est. Patient 09:30:37 [facility]T [facility] Level 3 Est. Patient 10:00:14 CDT Mekhi Dukes MD [facility] CPT-68535 Level 3 Est. Patient 12:24:09 CDT [facility] CPT-90623 Level 3 Est. Patient 14:34:57 CDT Prosper Arenas MD [facility] CPT-46208 Level 3 New Patient 15:44:53 METAL PICKLING EQUIPMENT OPERATOR Mekhi Dukes MD [facility]-10746 Level 3 Est. Patient 14:53:34 METAL PICKLING EQUIPMENT OPERATOR Prosper Arenas MD [facility]-19857 Level 4 Est. Patient 10:05:41 METAL PICKLING EQUIPMENT OPERATOR Moy Rodrigokymrex [facility]-21344 Level 3 Est. Patient 11:18:32 CDT Moy Garcia [facility]-21246 Level 4 Est. Patient 11:05:10 CDT Moy Garcia [facility]-01250 Level 3 Est. Patient 11:08:27 METAL PICKLING EQUIPMENT OPERATOR Moy Garcai [facility]-57210 Level 4 Est. Patient 10:43:59 CDT Prosper Arenas MD [facility]-06819 Level 3 Est. Patient 10:51:19 CDT Moy Garcia [facility] [place] CPT-83197 Level 3 Est. Patient 10:20:31 [facility] Level 3 Est. Patient 17:08:45 CDT Moy Garcia [facility] [place] CPT-78829 Level 2 Est. Patient 13:54:36 CDT Augustina Mata APRN [facility]-02783 Level 3 Est. Patient 12:00:42 CDT Prosper Arenas MD [facility]-77544 Level 3 Est. Patient 09:57:28 METAL PICKLING EQUIPMENT OPERATOR Moy Rodrigokymrex [facility]-65761 Level 3 Est. Patient 11:41:19 METAL PICKLING EQUIPMENT OPERATOR Moy Rodrigosania [facility]-53304 Level 4 Est. Patient 17:07:35 METAL PICKLING EQUIPMENT OPERATOR Moy Rodrigokymrex [facility] [place] CPT-33784 Level 5 Est. Patient 14:33:32 CDT Moy PARISH [facility] CPT-21213 Level 3 Est. Patient 12:25:35 CDT Prosper Arenas MD [facility] Procedures Code Procedure Name Date Entry Date Standard Description CPT-37692 Chest, 2 views 14:17:20 METAL PICKLING EQUIPMENT OPERATOR CPT-17455 Postop F/U Visit 14:44:45 METAL PICKLING EQUIPMENT OPERATOR CPT-74334 Postop F/U Visit 17:20:20 METAL PICKLING EQUIPMENT OPERATOR CPT-G0439 Subsequent Annual Wellness Exam 08:39:41 METAL PICKLING EQUIPMENT OPERATOR CPT-000 Give Appropriate Flu Vaccine 10:13:55 METAL PICKLING EQUIPMENT OPERATOR CPT-000 Give Immunizations Due 10:13:55 METAL PICKLING EQUIPMENT OPERATOR CPT-79121 HGBA1C - LAB USE ONLY 09:42:47 METAL PICKLING EQUIPMENT OPERATOR CPT-77490 TPSA - LAB USE ONLY 09:42:46 METAL PICKLING EQUIPMENT OPERATOR CPT-01869 Venipuncture Draw Fee 09:42:46 METAL PICKLING EQUIPMENT OPERATOR CPT-95872 Port a cath flush 13:33:18 METAL PICKLING EQUIPMENT OPERATOR CPT-67512 First Vx - Ix admin for Medicare patients 10:42:57 METAL PICKLING EQUIPMENT OPERATOR CPT-18319 Fluzone Preservative Free Intramuscular Suspension 10:42 :57 METAL PICKLING EQUIPMENT OPERATOR CPT-G0438 Initial Annual Wellness Exam 10:13:55 METAL PICKLING EQUIPMENT OPERATOR CPT-000 Give Appropriate Flu Vaccine 10:44:04 CDT CPT-000 Give Pneumovax 10:44:03 CDT CPT-14055 Port a cath flush 17:04:43 CDT CPT-01142 Prevnar 13 11:19:17 CDT CPT-79016 Fluzone Quadrivalent preservative free (>=3yrs.) 11:19: 17 CDT CPT-49233 Immunization Each Additional Inj 11:19:17 CDT CPT-09504 Immunization Single Admin 11:19:17 CDT CPT-51882 Port a cath flush 13:28:22 CDT CPT-TCMM Transitional Care Mgmt-Moderate 13:40:15 CDT CPT-G0008 Administration of Influenza Virus Vaccine 13:59:20 CDT CPT-46889 Fluzone High-Dose Intramuscular Suspension 13:59:20 CDT CPT-66329 Venipuncture Draw Fee 09:56:19 CDT CPT-OV Office Visit 15:46:10 CDT
--- OUTSIDE RECORDS SUMMARY | 2017-12-31 15:32 | XMS REPORT | Clinical Summary ---
Author Author Admin, [facility] Organization [facility] Address Unknown Phone Unavailable Allergies, Adverse Reactions, Alerts Allergy Name Reaction Description Start Date Severity Status Provider ERYTHROMYCIN Stomach cramps Moderate Active Prosper Arenas MD CODEINE Critical Active Maliheh Ziglari RENT CONTROL OFFICE MANAGER DARVOCET Critical Active Maliheh Ziglari RENT CONTROL OFFICE MANAGER LEVAQUIN Critical Active Maliheh Ziglari RENT CONTROL OFFICE MANAGER Conditions or Problems Problem Name Problem Code Onset Date Status Entry Date Provider Comment Standard Description Annotate Diabetes, Type 2 250.00 Resolved 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, type II [...] with hyperglycemia 250.00 Active 03/21 Maliheh Ziglari RENT CONTROL OFFICE MANAGER Diabetes mellitus without mention of complication, type II or unspecified type, not stated as uncontrolled custodial use of insulin treatment V58.67 Active Jose Antonioeh Rodrigoglari RENT CONTROL OFFICE MANAGER Long-term (current) use of insulin Diabetes mellitus, type II with hypoglycemia 250.80 Active 07/22 Maliheh Ziglari RENT CONTROL OFFICE MANAGER Diabetes mellitus with other specified manifestations, type II or unspecified type, not stated as uncontrolled 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 Maliheh Ziglari RENT CONTROL OFFICE MANAGER Diabetes mellitus with renal manifestations, type II or unspecified type, not stated as uncontrolled Wellness exam V70.0 Active Dee Palmer APRN Routine general medical examination at a health care facility Fitting and adjustment of vascular catheter V58.81 Active 02/06 Dee Palmer APRN Encounter for fitting and adjustment of vascular catheter Unawareness of hypoglycemia in diabetes mellitus, type II 250.80 Active Maliheh Rodrigoglari RENT CONTROL OFFICE MANAGER Diabetes mellitus with other specified manifestations, [...] specified as recurrent) Gastritis Inactive Maliheh Ziglari RENT CONTROL OFFICE MANAGER Unspecified gastritis and gastroduodenitis, without mention [...] ORAL TABLET 1 tab TID MIDODRINE HCL 24075490895 Active Prosper Arenas MD Active ZOFRAN 8 MG ORAL TABLET Take 1 tablet PO Q8H PRN nausea ONDANSETRON HCL 56077373971 Active Shaina Gibson MA Active CALCIUM CITRATE + D TABLET Take 1 tablet PO daily. CALCIUM CITRATE-VITAMIN D TABS 06576288008 Active Shaina Gibson MA Active SIMVASTATIN 40 MG ORAL TABLET Take 1 PO at bedtime. SIMVASTATIN 10936048409 Active Shaian Arthur REY Active RANITIDINE HCL 150 MG ORAL CAPSULE 1 twice a day as needed for heartburn 2017 RANITIDINE HCL 23341478086 Active Shainajhon GutierrezArthur MA Active PROCHLORPERAZINE MALEATE 10 MG ORAL TABLET Take 1 tablet every 6hrs, prn, nausea PROCHLORPERAZINE MALEATE 03026178101 Active Shaina Arthur LE Active METOPROLOL SUCCINATE ER 25 MG ORAL TABLET EXTENDED RELEASE 24 HOUR 1 pill by mouth daily for blood pressure METOPROLOL SUCCINATE 96701422633 Active Shaina Ordway MA Active MEGESTROL ACETATE 40 MG ORAL TABLET Take 1 tablet daily. MEGESTROL ACETATE 24827772179 Active Shaina Ordway REY Active ANTACID CALCIUM 500 MG ORAL TABLET CHEWABLE Take 1 chewable daily. CALCIUM CARBONATE ANTACID 97690444971 Active Shainajhon Gibson REY Active CALCIUM CARBONATE 1250 (500 CA) MG ORAL TABLET CHEWABLE Take 1 tablet daily. CALCIUM CARBONATE 05999309478 Active Shaina Arthur REY Active ACYCLOVIR 400 MG ORAL TABLET 1 pill two times daily ACYCLOVIR 21538502147 No Longer Active Prosper Arenas MD Active CITALOPRAM HYDROBROMIDE 20 MG ORAL TABLET 1 daily for depression CITALOPRAM HYDROBROMIDE 81086962573 Active Prosper Arenas MD Active PREDNISONE 20 MG ORAL TABLET 2 tabs daily for 4 days, 1 tab daily for 4 days, 1/2 tab daily for 4 days PREDNISONE 09952124566 No Longer Active Prosper Arenas MD Active AZITHROMYCIN 250 MG ORAL TABLET 2 po qd x 1 day, then 1 po qd x 4 days 05/07 AZITHROMYCIN 42547399065 No Longer Active Dee Palemr APRN Active GUAIFENESIN DM 400-20 MG ORAL TABLET 1 pill by mouth twice daily, if needed for cough DEXTROMETHORPHAN-GUAIFENESIN 10639939532 Active Dee Palmer APRN Active ASPIRIN 81 MG ORAL TABLET 1 po qd ASPIRIN 36113859614 Active Dee Palmer APRN Active CALCIUM 500/D 500-200 MG-UNIT ORAL TABLET one tablet daily CALCIUM CARBONATE-VITAMIN D 71461156904 No Longer Active Dee Palmer APRN Active HYDROCODONE-ACETAMINOPHEN 7.5-325 MG ORAL TABLET 1-2 every 4-6 hrs prn 02/25 HYDROCODONE-ACETAMINOPHEN 24010156384 Active Marina King BESSY Active ASPIRIN 81 MG ORAL TABLET 1 tablet by mouth daily ASPIRIN 93251401042 No Longer Active [facility] BESSY Active SIMVASTATIN 80 MG ORAL TABLET 1/2 tablet daily SIMVASTATIN 97275774109 No Longer Active Mekhi Dukes MD Active OMEPRAZOLE 20 MG ORAL CAPSULE DELAYED RELEASE 1 qd OMEPRAZOLE 08867523374 No Longer Active Mekhi Dukes MD Active METOPROLOL TARTRATE 25 MG ORAL TABLET 1/2 tablet twice a day METOPROLOL TARTRATE 29286070612 No Longer Active Mekhi Dukes MD Active LISINOPRIL 5 MG ORAL TABLET 1 daily LISINOPRIL 93674971601 No Longer Active Mekhi Dukes MD Active NOVOLOG FLEXPEN 100 UNIT/ML SUBCUTANEOUS SOLUTION PEN-INJECTOR Take 8 units with each meal, add 1u/50 for blood sugars above 150. INSULIN ASPART 69659213256 Active Moy PARISH Active GABAPENTIN 300 MG ORAL CAPSULE 1 tab BID GABAPENTIN 95475449163 Active Tami Miller RN Active PREDNISONE 20 MG ORAL TABLET Take 2 daily for 3 days and then 1 daily for 3 days PREDNISONE 48159584836 No Longer Active Moy PARISH Active BENZONATATE 200 MG ORAL CAPSULE Take 1 tablet 3 times a day as needed for cough BENZONATATE 32709373353 No Longer Active Prosper Arenas MD Active HYDROCHLOROTHIAZIDE 25 MG ORAL TABLET 1 tablet by mouth daily HYDROCHLOROTHIAZIDE 41535344396 No Longer Active Prosper Arenas MD Active ACCU-CHEK JOANNA PLUS IN VITRO STRIP check blood sugars 5x a day, before each meal and bedtime and 15 minutes after treating a low blood. sugar GLUCOSE BLOOD 77265035308 Active Maliheh Ziglari RENT CONTROL OFFICE MANAGER Active LANTUS SOLOSTAR 100 UNIT/ML SUBCUTANEOUS SOLUTION PEN-INJECTOR Take 40 units at 7-8pm daily INSULIN GLARGINE 36536030619 Active Maliheh Ziglari RENT CONTROL OFFICE MANAGER Active MECLIZINE HCL 25 MG ORAL TABLET 1 daily needed for dizziness 2015 MECLIZINE HCL 94598798763 No Longer Active Maliheh Ziglari RENT CONTROL OFFICE MANAGER Active BENZONATATE 200 MG ORAL CAPSULE 1 tab, 2-3 times a day BENZONATATE 25117073007 No Longer Active Maliheh Ziglari RENT CONTROL OFFICE MANAGER Active HALOPERIDOL 0.5 MG ORAL TABLET one tablet three times a day HALOPERIDOL 16538264971 No Longer Active Maliheh Ziglari RENT CONTROL OFFICE MANAGER Active TRAZODONE HCL 50 MG ORAL TABLET three tablets at bed time TRAZODONE HCL 25544317556 No Longer Active Maliheh Ziglari RENT CONTROL OFFICE MANAGER Active REVLIMID 25 MG ORAL CAPSULE one capsule daily for 21 days then off for 7 days LENALIDOMIDE 23535994063 No Longer Active Maliheh Ziglari RENT CONTROL OFFICE MANAGER Active ZITHROMAX Z-EDDIE 250 MG ORAL TABLET 2 today, then 1 daily for 4 days AZITHROMYCIN 66565156889 No Longer Active Augustina Mata APRN Active NOVOLIN R RELION 100 UNIT/ML INJECTION SOLUTION 30- 40 units each meal sliding scale INSULIN REGULAR HUMAN 23945988967 No Longer Active Maliheh Ziglari RENT CONTROL OFFICE MANAGER Active HYDROCODONE-ACETAMINOPHEN 5-500 MG ORAL TABLET 1-2 FOUR TIMES A DAY, PRN 2010 HYDROCODONE-ACETAMINOPHEN 31463175928 No Longer Active Prosper Arenas MD Active DOXYCYCLINE HYCLATE 100 MG ORAL CAPSULE take one capsule by mouth twice daily for ten days DOXYCYCLINE HYCLATE 91186752043 No Longer Active Mekhi Dukes MD Active DOXYCYCLINE HYCLATE 100 MG ORAL CAPSULE take one capsule by mouth twice daily for ten days DOXYCYCLINE HYCLATE 100 MG ORAL CAPSULE 6347628 DOXYCYCLINE HYCLATE Inactive HYDROCODONE-ACETAMINOPHEN 5-500 MG ORAL [...] days ZITHROMAX Z-EDDIE 250 MG ORAL TABLET 107192 AZITHROMYCIN Inactive REVLIMID 25 MG ORAL CAPSULE one capsule daily for 21 days then off for 7 days REVLIMID 25 MG ORAL CAPSULE LENALIDOMIDE Inactive TRAZODONE HCL 50 MG ORAL TABLET three tablets at bed time TRAZODONE HCL 50 MG ORAL TABLET 919028 TRAZODONE HCL Inactive HALOPERIDOL 0.5 MG ORAL TABLET one tablet three times a day HALOPERIDOL 0.5 MG ORAL TABLET 255075 HALOPERIDOL Inactive BENZONATATE 200 MG ORAL CAPSULE 1 tab, 2-3 times a day BENZONATATE 200 MG ORAL CAPSULE 301885 BENZONATATE Inactive MECLIZINE HCL 25 MG ORAL TABLET 1 daily needed for dizziness 2015 MECLIZINE HCL 25 MG ORAL TABLET 142398 MECLIZINE HCL Inactive HYDROCHLOROTHIAZIDE 25 MG ORAL TABLET 1 tablet by mouth daily HYDROCHLOROTHIAZIDE 25 MG ORAL TABLET 953122 HYDROCHLOROTHIAZIDE Inactive PREDNISONE 20 MG ORAL TABLET Take 2 daily for 3 days and then 1 daily for 3 days PREDNISONE 20 MG ORAL TABLET 797995 PREDNISONE Inactive LISINOPRIL 5 MG ORAL TABLET 1 daily LISINOPRIL 5 MG ORAL TABLET 121504 LISINOPRIL Inactive METOPROLOL TARTRATE 25 MG ORAL TABLET 1/2 tablet twice a day METOPROLOL TARTRATE 25 MG ORAL TABLET 945163 METOPROLOL TARTRATE Inactive OMEPRAZOLE 20 MG ORAL CAPSULE DELAYED RELEASE 1 qd OMEPRAZOLE 20 MG ORAL CAPSULE DELAYED RELEASE 629153 OMEPRAZOLE Inactive SIMVASTATIN 80 MG ORAL TABLET 1/2 tablet daily SIMVASTATIN 80 MG ORAL TABLET 312664 SIMVASTATIN Inactive ASPIRIN 81 MG ORAL TABLET [...] 4 days PREDNISONE 20 MG ORAL TABLET 826497 PREDNISONE Inactive BENZONATATE 200 MG ORAL CAPSULE Take 1 tablet 3 times a day as needed for cough BENZONATATE 200 MG ORAL CAPSULE 734397 BENZONATATE Inactive AZITHROMYCIN 250 MG ORAL TABLET 2 po qd x 1 day, then 1 po qd x 4 days 05/07 AZITHROMYCIN 250 MG ORAL TABLET 533767 AZITHROMYCIN Inactive ACYCLOVIR 400 MG ORAL TABLET 1 pill two times daily ACYCLOVIR 400 MG ORAL TABLET 679037 ACYCLOVIR Inactive Advance Directives Directive Description Start [...] rate weight E&M 182 [lb_av] Weight Measured Diagnostic Results Date Name [...] % 11.6-14.8 platelet count 294 10^3/MM^3 10*3/mm3 331-158 8816/05/29 leukocyte count, blood 2.4 10^3/MM^3 10*3/mm3 4.6-10.2 [...] % 11.6-14.8 platelet count 138 10^3/MM^3 10*3/mm3 134-129 9208/06/12 leukocyte count, blood 4.3 10^3/MM^3 10*3/mm3 4.6-10.2 [...] % 11.6-14.8 platelet count 355 10^3/MM^3 10*3/mm3 809-397 3368/06/19 leukocyte count, blood 2.2 10^3/MM^3 10*3/mm3 4.6-10.2 [...] % 11.6-14.8 platelet count 109 10^3/MM^3 10*3/mm3 336-326 6522/07/06 leukocyte count, blood 5.1 10^3/MM^3 10*3/mm3 4.6-10.2 [...] Panel - Chemistry sodium, serum 133 mmol/L 979-383 5017/07/24 carbon dioxide, venous blood 20.6 mmol/L 21.0-32.0 potassium, serum 3.0 mmol/L 3.5-5.2 chloride, serum 100 mmol/L 98-107 blood glucose 193 mg/dL 65-95 urea nitrogen, blood 11 mg/dL 7-18 creatinine, serum 1.28 mg/dL 0.60-1.30 alanine aminotransferase (SGPT), serum 48 U/L 12-78 aspartate aminotransferase (SGOT), serum 22 U/L 15-37 calcium, serum 8.3 mg/dL 8.5-10.1 bilirubin, serum, total 0.50 mg/dL 0.00-1.00 sodium, serum 124 mmol/L 244-230 6512/07/06 carbon dioxide, venous blood 20.9 mmol/L 21.0-32.0 potassium, serum 4.0 mmol/L 3.5-5.2 chloride, serum 90 mmol/L 98-107 blood glucose 175 mg/dL 65-95 urea nitrogen, blood 14 mg/dL 7-18 creatinine, serum 1.21 mg/dL 0.60-1.30 alanine aminotransferase (SGPT), serum 70 U/L 12-78 aspartate aminotransferase (SGOT), serum 32 U/L 15-37 calcium, serum 8.5 mg/dL 8.5-10.1 bilirubin, serum, total 0.80 mg/dL 0.00-1.00 sodium, serum 133 mmol/L 885-979 0092/08/01 carbon dioxide, venous blood 22.0 mmol/L 21.0-32.0 potassium, serum 3.4 mmol/L 3.5-5.2 chloride, serum 96 mmol/L 98-107 blood glucose 162 mg/dL 65-95 urea nitrogen, blood 13 mg/dL 7-18 creatinine, serum 1.16 mg/dL 0.60-1.30 alanine aminotransferase (SGPT), serum 61 U/L 12-78 aspartate aminotransferase (SGOT), serum 33 U/L 15-37 calcium, serum 8.5 mg/dL 8.5-10.1 bilirubin, serum, total 0.70 mg/dL 0.00-1.00 sodium, serum 137 mmol/L 335-135 9298/06/05 carbon dioxide, venous blood 26.0 mmol/L 21.0-32.0 potassium, serum 4.5 mmol/L 3.5-5.2 chloride, serum 100 mmol/L 98-107 blood glucose 100 mg/dL 65-95 urea nitrogen, blood 16 mg/dL 7-18 creatinine, serum 1.67 mg/dL 0.60-1.30 alanine aminotransferase (SGPT), serum 75 U/L -78 aspartate aminotransferase (SGOT), serum 46 U/L 15-37 calcium, serum 9.8 mg/dL 8.5-10.1 bilirubin, serum, total 0.40 mg/dL 0.00-1.00 sodium, serum 134 mmol/L 865-400 8926/05/15 carbon dioxide, venous blood 23.5 mmol/L 21.0-32.0 potassium, serum 4.8 mmol/L 3.5-5.2 chloride, serum 101 mmol/L 98-107 blood glucose 139 mg/dL 65-95 urea nitrogen, blood 19 mg/dL 7-18 creatinine, serum 1.79 mg/dL 0.60-1.30 alanine aminotransferase (SGPT), serum 140 U/L - aspartate aminotransferase (SGOT), serum 104 U/L 15-37 calcium, serum 8.5 mg/dL 8.5-10.1 bilirubin, serum, total 0.40 mg/dL 0.00-1.00 sodium, serum 135 mmol/L 411-525 5660/04/10 carbon dioxide, venous blood 26.1 mmol/L 21.0-32.0 potassium, serum 4.2 mmol/L 3.5-5.2 chloride, serum 100 mmol/L 98-107 blood glucose 293 mg/dL 65-110 urea nitrogen, blood 18 mg/dL 7- creatinine, serum 2.06 mg/dL 0.60-1.30 alanine aminotransferase (SGPT), serum 59 U/L aspartate aminotransferase (SGOT), serum 47 U/L 15- calcium, serum 8.6 mg/dL 8.5-10.1 bilirubin, serum, total 0.30 mg/dL 0.00-1.00 sodium, serum 139 mmol/L 306-647 2896/05/01 carbon dioxide, venous blood 25.2 mmol/L 21.0-32.0 potassium, serum 4.1 mmol/L 3.5-5.2 chloride, serum 104 mmol/L 98-107 blood glucose 64 mg/dL 65-95 urea nitrogen, blood 16 mg/dL 7-18 creatinine, serum 1.55 mg/dL 0.60-1.30 alanine aminotransferase (SGPT), serum 80 U/L aspartate aminotransferase (SGOT), serum 53 U/L 15-37 calcium, serum 8.1 mg/dL 8.5-10.1 bilirubin, serum, total 0.40 mg/dL 0.00-1.00 sodium, serum 135 mmol/L 519-515 1350/05/08 carbon dioxide, venous blood 29.0 mmol/L 21.0-32.0 [...] % 11.6-14.8 platelet count 36 10^3/MM^3 10*3/mm3 678-416 8376/05/08 leukocyte count, blood 1.8 10^3/MM^3 10*3/mm3 4.6-10.2 [...] % 11.6-14.8 platelet count 103 10^3/MM^3 10*3/mm3 516-617 2991/05/01 leukocyte count, blood 5.0 10^3/MM^3 10*3/mm3 4.6-10.2 [...] % 11.6-14.8 platelet count 271 10^3/MM^3 10*3/mm3 754-448 7236/04/10 leukocyte count, blood 4.8 10^3/MM^3 10*3/mm3 4.6-10.2 [...] % 11.6-14.8 platelet count 200 10^3/MM^3 10*3/mm3 411-714 4771/06/05 leukocyte count, blood 2.7 10^3/MM^3 10*3/mm3 4.6-10.2 [...] % 11.6-14.8 platelet count 84 10^3/MM^3 10*3/mm3 084-348 2330/08/01 leukocyte count, blood 5.1 10^3/MM^3 10*3/mm3 4.6-10.2 [...] % 11.6-14.8 platelet count 235 10^3/MM^3 10*3/mm3 753-151 1726/07/24 leukocyte count, blood 4.3 10^3/MM^3 10*3/mm3 4.6-10.2 [...] Panel - Chemistry sodium, serum 132 mmol/L 188-318 6559/06/19 carbon dioxide, venous blood 20.9 mmol/L 21.0-32.0 potassium, serum 3.9 mmol/L 3.5-5.2 chloride, serum 102 mmol/L 98-107 blood glucose 259 mg/dL 65-95 urea nitrogen, blood 16 mg/dL 7-18 creatinine, serum 1.46 mg/dL 0.60-1.30 alanine aminotransferase (SGPT), serum 62 U/L 12-78 aspartate aminotransferase (SGOT), serum 27 U/L 15-37 calcium, serum 7.5 mg/dL 8.5-10.1 bilirubin, serum, total 0.50 mg/dL 0.00-1.00 sodium, serum 134 mmol/L 286-833 1090/06/12 carbon dioxide, venous blood 21.9 mmol/L 21.0-32.0 potassium, serum 4.4 mmol/L 3.5-5.2 chloride, serum 97 mmol/L 98-107 blood glucose 191 mg/dL 65-95 urea nitrogen, blood 23 mg/dL 7- creatinine, serum 1.68 mg/dL 0.60-1.30 alanine aminotransferase (SGPT), serum 64 U/L - aspartate aminotransferase (SGOT), serum 35 U/L 15-37 calcium, serum 8.9 mg/dL 8.5-10.1 bilirubin, serum, total 0.70 mg/dL 0.00-1.00 sodium, serum 136 mmol/L 944-183 0343/05/29 carbon dioxide, venous blood 22.4 mmol/L 21.0-32.0 potassium, serum 4.0 mmol/L 3.5-5.2 chloride, serum 104 mmol/L 98-107 blood glucose 128 mg/dL 65- urea nitrogen, blood 20 mg/dL - creatinine, serum 1.47 mg/dL 0.60-1.30 alanine aminotransferase (SGPT), serum 80 U/L aspartate aminotransferase (SGOT), serum 38 U/L 15-37 calcium, serum 9.1 mg/dL 8.5-10.1 bilirubin, serum, total 0.40 mg/dL 0.00-1.00 sodium, serum 134 mmol/L 753-412 1900/05/22 carbon dioxide, venous blood 25.2 mmol/L 21.0-32.0 potassium, serum 5.0 mmol/L 3.5-5.2 chloride, serum 100 mmol/L 98-107 blood glucose 278 mg/dL 65-95 urea nitrogen, blood 19 mg/dL 7-18 creatinine, serum 1.49 mg/dL 0.60-1.30 alanine aminotransferase (SGPT), serum 93 U/L 12-78 aspartate aminotransferase (SGOT), serum 58 U/L 15-37 calcium, serum 9.1 mg/dL 8.5-10.1 bilirubin, serum, total 0.20 mg/dL 0.00-1.00 Lab Report: HGBA1C - Chemistry hemoglobin A1C, blood, as % of total hemoglobin 6.6 % 4.3-6.0 Lab Report: SADA INFLUENZA A/B - Toxicology [...] mg/dL Encounters Code Encounter Date Provider Facility CPT-19320 91877-Ppt Vst-Est Level IV 11:03:20 CDT Prosper Arenas MD [facility] CPT-70249 Level 3 Est. Patient 14:09:25 PRISONER CLASSIFICATION INTERVIEWER Dee Palmer APRN [facility] CPT-32681 Level 3 Est. Patient 10:53:32 PRISONER CLASSIFICATION INTERVIEWER Moy Garcia RENT CONTROL OFFICE MANAGER [facility] CPT-63527 Level 3 Est. Patient 17:11:55 PRISONER CLASSIFICATION INTERVIEWER Ismael Gracia MD [facility] CPT-59162 Level 4 Est. Patient 16:29:19 CDT Mekhi Dukes MD [facility] CPT-56576 Level 3 New Patient 17:05:24 CDT Ismael Gracia MD [facility] CPT-65555 Level 2 Est. Patient 15:43:17 CDT Mekhi Dukes MD [facility] CPT-07043 Level 3 Est. Patient 09:30:37 CDT Moy Garcia [facility]-17584 Level 3 Est. Patient 10:00:14 CDT Mekhi Dukes MD [facility] CPT-24711 Level 3 Est. Patient 12:24:09 CDT Moy Garcia [facility] CPT-39629 Level 3 Est. Patient 14:34:57 CDT Prosper Arenas MD [facility] CPT-95306 Level 3 New Patient 15:44:53 PRISONER CLASSIFICATION INTERVIEWER Mekhi Dukes MD [facility]-16880 Level 3 Est. Patient 14:53:34 PRISONER CLASSIFICATION INTERVIEWER Prosper Arenas MD [facility] CPT-81714 Level 4 Est. Patient 10:05:41 PRISONER CLASSIFICATION INTERVIEWER Moy Garcia [facility] CPT-05321 Level 3 Est. [facility] 11:18:32 [facility] 4 Est[facility]:05:10 [facility] Level 3 Est. Patient 11:08:27 PRISONER CLASSIFICATION INTERVIEWER Moy Rodrigosania [facility] CPT-93792 Level 4 Est. Patient 10:43:59 CDT Prosper Arenas MD [facility] CPT-52126 Level 3 Est. Patient 10:51:19 CDT Moy Garcia [facility] CPT-46926 Level 3 Est. Patient 10:20:31 [facility] Level 3 Est. Patient 17:08:45 CDT [facility]59326 Level 2 Est. Patient 13:54:36 CDT Augustina Mata BESSY [facility] CPT-36975 Level 3 Est. Patient 12:00:42 CDT Prosper Arenas MD [facility] CPT-60509 Level 3 Est. Patient 09:57:28 PRISONER CLASSIFICATION INTERVIEWER Luxshoaib Garcia [facility] CPT-98135 Level 3 Est. Patient 11:41:19 PRISONER CLASSIFICATION INTERVIEWER Moy Garcia [facility] CPT-44020 Level 4 Est. Patient 17:07:35 PRISONER CLASSIFICATION INTER[facility]959[facility] Level 5 Est. Patient 14:33:32 CDT Moy Wallacerex [facility] CPT-42311 Level 3 Est. Patient 12:25:35 CDT Prosper Arenas MD [facility] Procedures Code Procedure Name Date Entry Date Standard Description CPT-84758 Chest, 2 views 14:17:20 PRISONER CLASSIFICATION INTERVIEWER CPT-98336 Postop F/U Visit 14:44:45 PRISONER CLASSIFICATION INTERVIEWER CPT-19749 Postop F/U Visit 17:20:20 PRISONER CLASSIFICATION INTERVIEWER CPT-G0439 [facility] Annual [facility]ness Exam 08:39:41 PRISONER CLASSIFICATION INTERVIEWER CPT-000 Give Appropriate Flu Vaccine 10:13:55 PRISONER CLASSIFICATION INTERVIEWER CPT-000 Give Immunizations Due 10:13:55 PRISONER CLASSIFICATION INTERVIEWER CPT-98697 HGBA1C - LAB USE ONLY 09:42:47 PRISONER CLASSIFICATION INTERVIEWER CPT-84526 TPSA - LAB USE ONLY 09:42:46 PRISONER CLASSIFICATION INTERVIEWER CPT-14435 Venipuncture Draw Fee 09:42:46 PRISONER CLASSIFICATION INTERVIEWER CPT-95406 Port a cath flush 13:33:18 PRISONER CLASSIFICATION INTERVIEWER CPT-07633 First Vx - Ix admin for Medicare patients 10:42:57 PRISONER CLASSIFICATION INTERVIEWER CPT-58475 Fluzone Preservative Free Intramuscular Suspension 10:42 :57 PRISONER CLASSIFICATION INTERVIEWER CPT-G0438 Initial Annual Wellness Exam 10:13:55 PRISONER CLASSIFICATION INTERVIEWER CPT-000 Give Appropriate Flu Vaccine 10:44:04 CDT CPT-000 Give Pneumovax 10:44:03 CDT CPT-30654 Port a cath flush 17:04:43 CDT CPT-59915 Prevnar 13 11:19:17 CDT CPT-93766 Fluzone Quadrivalent preservative free (>=3yrs.) 11:19: 17 CDT CPT-70859 Immunization Each Additional Inj 11:19:17 CDT CPT-78334 Immunization Single Admin 11:19:17 CDT CPT-45519 Port a cath flush 13:28:22 CDT CPT-TCMM Transitional Care Mgmt-Moderate 13:40:15 CDT CPT-G0008 Administration of Influenza Virus Vaccine 13:59:20 CDT CPT-35614 Fluzone High-Dose Intramuscular Suspension 13:59:20 CDT CPT-86651 Venipuncture Draw Fee 09:56:19 CDT CPT-OV Office Visit 15:46:10 CDT
--- OUTSIDE RECORDS SUMMARY | 2017-12-31 15:34 | XMS REPORT | Clinical Summary ---
Author Author Admin, Kaylynn Organization [facility] Address Unknown Phone Unavailable Allergies, Adverse Reactions, Alerts Allergy Name Reaction Description Start Date Severity Status Provider ERYTHROMYCIN Stomach cramps Moderate Active Prosper Arenas MD CODEINE Critical Active Maliheh Ziglari HAND SPRAYER DARVOCET Critical Active Maliheh Ziglari HAND SPRAYER LEVAQUIN Critical Active Maliheh Ziglari HAND SPRAYER Conditions or Problems Problem Name Problem Code Onset Date Status Entry Date Provider Comment Standard Description Annotate Diabetes, Type 2 250.00 Resolved Tami Miller tongsman mellitus without mention of complication, type II [...] II, uncontrolled 250.02 Active Maliheh Rodrigoglari HAND SPRAYER Diabetes mellitus without mention of complication, type [...] hyperglycemia 250.00 Active 03/21 Maliheh Ziglari HAND SPRAYER Diabetes mellitus without mention of complication, type II or unspecified type, not stated as uncontrolled halfway use of insulin treatment V58.67 Active Luxiheh Rodrigoglari HAND SPRAYER Long-term (current) use of insulin Diabetes mellitus, type II with hypoglycemia 250.80 Active 07/22 Maliheh Ziglari HAND SPRAYER Diabetes mellitus with other specified manifestations, type II or unspecified type, not stated as uncontrolled 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 Maliheh Ziglari HAND SPRAYER Diabetes mellitus with renal manifestations, type II or unspecified type, not stated as uncontrolled Wellness exam V70.0 Active Dee Palmer APRN Routine general medical examination at a health care facility Fitting and adjustment of vascular catheter V58.81 Active 02/06 Dee Palmer APRN Encounter for fitting and adjustment of vascular catheter Unawareness of hypoglycemia in diabetes mellitus, type II 250.80 Active Maliheh Rodrigoglari HAND SPRAYER Diabetes mellitus with other specified manifestations, type [...] specified as recurrent) Gastritis Inactive Maliheh Ziglari HAND SPRAYER Unspecified gastritis and gastroduodenitis, without mention of [...] Generic Name NDC Status Provider Patient Instruction ZOFRAN 8 MG ORAL TABLET Take 1 tablet PO Q8H PRN nausea ONDANSETRON HCL 73189585461 Active Shaina Gibson MA Active CALCIUM CITRATE + D TABLET Take 1 tablet PO daily. CALCIUM CITRATE-VITAMIN D TABS 43799036839 Farida Gibson MA Active SIMVASTATIN 40 MG ORAL TABLET Take 1 PO at bedtime. SIMVASTATIN 52098194141 Farida Gibson MA Active RANITIDINE HCL 150 MG ORAL CAPSULE 1 twice a day as needed for heartburn 2017 RANITIDINE HCL 50474211645 Active Shaina Arthur LE Active PROCHLORPERAZINE MALEATE 10 MG ORAL TABLET Take 1 tablet every 6hrs, prn, nausea PROCHLORPERAZINE MALEATE 93958407338 Active Shaina Gibson MA Active METOPROLOL SUCCINATE ER 25 MG ORAL TABLET EXTENDED RELEASE 24 HOUR 1 pill by mouth daily for blood pressure METOPROLOL SUCCINATE 96970418660 Active Shaina Arthur LE Active MEGESTROL ACETATE 40 MG ORAL TABLET Take 1 tablet daily. MEGESTROL ACETATE 96933198518 Active Shaina Arthur LE Active ANTACID CALCIUM 500 MG ORAL TABLET CHEWABLE Take 1 chewable daily. CALCIUM CARBONATE ANTACID 38962909967 Active Shaina Arthur LE Active CALCIUM CARBONATE 1250 (500 CA) MG ORAL TABLET CHEWABLE Take 1 tablet daily. CALCIUM CARBONATE 25851680438 Active Shaina Gibson MA Active ACYCLOVIR 400 MG ORAL TABLET 1 pill two times daily ACYCLOVIR 65812525167 Active Shaina Gibson MA Active CITALOPRAM HYDROBROMIDE 20 MG ORAL TABLET 1 daily for depression CITALOPRAM HYDROBROMIDE 39823495234 Active Prosper Arenas MD Active PREDNISONE 20 MG ORAL TABLET 2 tabs daily for 4 days, 1 tab daily for 4 days, 1/2 tab daily for 4 days PREDNISONE 01494261947 No Longer Active Prosper Arenas MD Active AZITHROMYCIN 250 MG ORAL TABLET 2 po qd x 1 day, then 1 po qd x 4 days 05/07 AZITHROMYCIN 85547356904 No Longer Active Dee Palmer APRN Active GUAIFENESIN DM 400-20 MG ORAL TABLET 1 pill by mouth twice daily, if needed for cough DEXTROMETHORPHAN-GUAIFENESIN 73449566478 Active Dee Palmer APRN Active ASPIRIN 81 MG ORAL TABLET 1 po qd ASPIRIN 39739428634 Active Dee Palmer APRN Active CALCIUM 500/D 500-200 MG-UNIT ORAL TABLET one tablet daily CALCIUM CARBONATE-VITAMIN D 50397490833 No Longer Active Dee Palmer APRN Active HYDROCODONE-ACETAMINOPHEN 7.5-325 MG ORAL TABLET 1-2 every 4-6 hrs prn 02/25 HYDROCODONE-ACETAMINOPHEN 63848811049 [facility] 81 MG ORAL TABLET 1 tablet by mouth daily ASPIRIN 46667488152 No Longer [facility] SIMVASTATIN 80 MG ORAL TABLET 1/2 tablet daily SIMVASTATIN 96065269085 No Longer Active Mekhi Dukes MD Active OMEPRAZOLE 20 MG ORAL CAPSULE DELAYED RELEASE 1 qd OMEPRAZOLE 57673940991 No Longer Active Mekhi Dukes MD Active METOPROLOL TARTRATE 25 MG ORAL TABLET 1/2 tablet twice a day METOPROLOL TARTRATE 05555758897 No Longer Active Mekhi Dukes MD Active LISINOPRIL 5 MG ORAL TABLET 1 daily LISINOPRIL 39749487152 No Longer Active Mekhi Dukes MD Active NOVOLOG FLEXPEN 100 UNIT/ML SUBCUTANEOUS SOLUTION PEN-INJECTOR Take 8 units with each meal, add 1u/50 for blood sugars above 150. INSULIN ASPART 88294102460 Active Malpapo [facility] Active GABAPENTIN 300 MG ORAL CAPSULE 1 tab BID GABAPENTIN 80987188703 Active Tami Miller RN Active PREDNISONE 20 MG ORAL TABLET Take 2 daily for 3 days and then 1 daily for 3 days PREDNISONE 22848919820 No Longer Active Maliheh Ziglari HAND SPRAYER Active BENZONATATE 200 MG ORAL CAPSULE Take 1 tablet 3 times a day as needed for cough BENZONATATE 41868086686 No Longer Active Prosper Arenas MD Active HYDROCHLOROTHIAZIDE 25 MG ORAL TABLET 1 tablet by mouth daily HYDROCHLOROTHIAZIDE 41814955867 No Longer Active Prosper Arenas MD Active ACCU-CHEK JOANNA PLUS IN VITRO STRIP check blood sugars 5x a day, before each meal and bedtime and 15 minutes after treating a low blood. sugar GLUCOSE BLOOD 32671581636 Active Maliheh Ziglari HAND SPRAYER Active LANTUS SOLOSTAR 100 UNIT/ML SUBCUTANEOUS SOLUTION PEN-INJECTOR Take 40 units at 7-8pm daily INSULIN GLARGINE 62010809130 Active Maliheh Ziglari HAND SPRAYER Active MECLIZINE HCL 25 MG ORAL TABLET 1 daily needed for dizziness 2015 MECLIZINE HCL 97157631586 No Longer Active Maliheh Ziglari HAND SPRAYER Active BENZONATATE 200 MG ORAL CAPSULE 1 tab, 2-3 times a day BENZONATATE 36276744240 No Longer Active Maliheh Ziglari HAND SPRAYER Active HALOPERIDOL 0.5 MG ORAL TABLET one tablet three times a day HALOPERIDOL 25302811045 No Longer Active Maliheh Ziglari HAND SPRAYER Active TRAZODONE HCL 50 MG ORAL TABLET three tablets at bed time TRAZODONE HCL 38577416594 No Longer Active Maliheh Ziglari HAND SPRAYER Active REVLIMID 25 MG ORAL CAPSULE one capsule daily for 21 days then off for 7 days LENALIDOMIDE 55148452418 No Longer Active Maliheh Ziglari HAND SPRAYER Active ZITHROMAX Z-EDDIE 250 MG ORAL TABLET 2 today, then 1 daily for 4 days AZITHROMYCIN 25709910083 No Longer Active Augustina Mata APRN Active NOVOLIN R RELION 100 UNIT/ML INJECTION SOLUTION 30- 40 units each meal sliding scale INSULIN REGULAR HUMAN 83094513024 No Longer Active Maliheh Ziglari HAND SPRAYER Active HYDROCODONE-ACETAMINOPHEN 5-500 MG ORAL TABLET 1-2 FOUR TIMES A DAY, PRN 2010 HYDROCODONE-ACETAMINOPHEN 39216266948 No Longer Active Prosper Arenas MD Active DOXYCYCLINE HYCLATE 100 MG ORAL CAPSULE take one capsule by mouth twice daily for ten days DOXYCYCLINE HYCLATE 57058771490 No Longer Active Mekhi Dukes MD Active DOXYCYCLINE HYCLATE 100 MG ORAL CAPSULE take one capsule by mouth twice daily for ten days DOXYCYCLINE HYCLATE 100 MG ORAL CAPSULE 9344808 DOXYCYCLINE HYCLATE Inactive HYDROCODONE-ACETAMINOPHEN 5-500 MG ORAL [...] days ZITHROMAX Z-EDDIE 250 MG ORAL TABLET 409876 AZITHROMYCIN Inactive REVLIMID 25 MG ORAL CAPSULE one capsule daily for 21 days then off for 7 days REVLIMID 25 MG ORAL CAPSULE LENALIDOMIDE Inactive TRAZODONE HCL 50 MG ORAL TABLET three tablets at bed time TRAZODONE HCL 50 MG ORAL TABLET 174503 TRAZODONE HCL Inactive HALOPERIDOL 0.5 MG ORAL TABLET one tablet three times a day HALOPERIDOL 0.5 MG ORAL TABLET 212820 HALOPERIDOL Inactive BENZONATATE 200 MG ORAL CAPSULE 1 tab, 2-3 times a day BENZONATATE 200 MG ORAL CAPSULE 364666 BENZONATATE Inactive MECLIZINE HCL 25 MG ORAL TABLET 1 daily needed for dizziness 2015 MECLIZINE HCL 25 MG ORAL TABLET 211451 MECLIZINE HCL Inactive HYDROCHLOROTHIAZIDE 25 MG ORAL TABLET 1 tablet by mouth daily HYDROCHLOROTHIAZIDE 25 MG ORAL TABLET 978551 HYDROCHLOROTHIAZIDE Inactive PREDNISONE 20 MG ORAL TABLET Take 2 daily for 3 days and then 1 daily for 3 days PREDNISONE 20 MG ORAL TABLET 972694 PREDNISONE Inactive LISINOPRIL 5 MG ORAL TABLET 1 daily LISINOPRIL 5 MG ORAL TABLET 545464 LISINOPRIL Inactive METOPROLOL TARTRATE 25 MG ORAL TABLET 1/2 tablet twice a day METOPROLOL TARTRATE 25 MG ORAL TABLET 219002 METOPROLOL TARTRATE Inactive OMEPRAZOLE 20 MG ORAL CAPSULE DELAYED RELEASE 1 qd OMEPRAZOLE 20 MG ORAL CAPSULE DELAYED RELEASE 573874 OMEPRAZOLE Inactive SIMVASTATIN 80 MG ORAL TABLET 1/2 tablet daily SIMVASTATIN 80 MG ORAL TABLET 123944 SIMVASTATIN Inactive ASPIRIN 81 MG ORAL TABLET [...] 4 days PREDNISONE 20 MG ORAL TABLET 554587 PREDNISONE Inactive BENZONATATE 200 MG ORAL CAPSULE Take 1 tablet 3 times a day as needed for cough BENZONATATE 200 MG ORAL CAPSULE 074203 BENZONATATE Inactive AZITHROMYCIN 250 MG ORAL TABLET 2 po qd x 1 day, then 1 po qd x 4 days 05/07 AZITHROMYCIN 250 MG ORAL TABLET 269944 AZITHROMYCIN Inactive Advance Directives Directive Description Start Date [...] % 11.6-14.8 platelet count 294 10^3/MM^3 10*3/mm3 383-140 8714/05/29 leukocyte count, blood 2.4 10^3/MM^3 10*3/mm3 4.6-10.2 [...] % 11.6-14.8 platelet count 138 10^3/MM^3 10*3/mm3 801-852 8597/06/12 leukocyte count, blood 4.3 10^3/MM^3 10*3/mm3 4.6-10.2 [...] % 11.6-14.8 platelet count 355 10^3/MM^3 10*3/mm3 086-747 6960/06/19 leukocyte count, blood 2.2 10^3/MM^3 10*3/mm3 4.6-10.2 [...] % 11.6-14.8 platelet count 109 10^3/MM^3 10*3/mm3 979-939 0114/07/06 leukocyte count, blood 5.1 10^3/MM^3 10*3/mm3 4.6-10.2 [...] Panel - Chemistry sodium, serum 137 mmol/L 124-960 2678/06/05 carbon dioxide, venous blood 26.0 mmol/L 21.0-32.0 potassium, serum 4.5 mmol/L 3.5-5.2 chloride, serum 100 mmol/L 98-107 blood glucose 100 mg/dL 65-95 urea nitrogen, blood 16 mg/dL 7-18 creatinine, serum 1.67 mg/dL 0.60-1.30 alanine aminotransferase (SGPT), serum 75 U/L 12-78 aspartate aminotransferase (SGOT), serum 46 U/L 15-37 calcium, serum 9.8 mg/dL 8.5-10.1 bilirubin, serum, total 0.40 mg/dL 0.00-1.00 sodium, serum 124 mmol/L 646-306 0516/07/06 carbon dioxide, venous blood 20.9 mmol/L 21.0-32.0 potassium, serum 4.0 mmol/L 3.5-5.2 chloride, serum 90 mmol/L 98-107 blood glucose 175 mg/dL 65-95 urea nitrogen, blood 14 mg/dL 7-18 creatinine, serum 1.21 mg/dL 0.60-1.30 alanine aminotransferase (SGPT), serum 70 U/L 12-78 aspartate aminotransferase (SGOT), serum 32 U/L 15- calcium, serum 8.5 mg/dL 8.5-10.1 bilirubin, serum, total 0.80 mg/dL 0.00-1.00 sodium, serum 133 mmol/L 650-962 0730/07/24 carbon dioxide, venous blood 20.6 mmol/L 21.0-32.0 potassium, serum 3.0 mmol/L 3.5-5.2 chloride, serum 100 mmol/L 98-107 blood glucose 193 mg/dL 65-95 urea nitrogen, blood 11 mg/dL 7-18 creatinine, serum 1.28 mg/dL 0.60-1.30 alanine aminotransferase (SGPT), serum 48 U/L - aspartate aminotransferase (SGOT), serum 22 U/L - calcium, serum 8.3 mg/dL 8.5-10.1 bilirubin, serum, total 0.50 mg/dL 0.00-1.00 sodium, serum 133 mmol/L 006-655 9094/08/01 carbon dioxide, venous blood 22.0 mmol/L 21.0-32.0 potassium, serum 3.4 mmol/L 3.5-5.2 chloride, serum 96 mmol/L 98-107 blood glucose 162 mg/dL 65-95 urea nitrogen, blood 13 mg/dL 7-18 creatinine, serum 1.16 mg/dL 0.60-1.30 alanine aminotransferase (SGPT), serum 61 U/L - aspartate aminotransferase (SGOT), serum 33 U/L - calcium, serum 8.5 mg/dL 8.5-10.1 bilirubin, serum, total 0.70 mg/dL 0.00-1.00 sodium, serum 134 mmol/L 677-298 1577/05/15 carbon dioxide, venous blood 23.5 mmol/L 21.0-32.0 potassium, serum 4.8 mmol/L 3.5-5.2 chloride, serum 101 mmol/L 98-107 blood glucose 139 mg/dL 65-95 urea nitrogen, blood 19 mg/dL 7-18 creatinine, serum 1.79 mg/dL 0.60-1.30 alanine aminotransferase (SGPT), serum 140 U/L 12-78 aspartate aminotransferase (SGOT), serum 104 U/L 15-37 calcium, serum 8.5 mg/dL 8.5-10.1 bilirubin, serum, total 0.40 mg/dL 0.00-1.00 sodium, serum 135 mmol/L 444-579 6697/05/08 carbon dioxide, venous blood 29.0 mmol/L 21.0-32.0 potassium, serum 4.8 mmol/L 3.5-5.2 chloride, serum 101 mmol/L 98-107 blood glucose 165 mg/dL 65-95 urea nitrogen, blood 19 mg/dL 7-18 creatinine, serum 1.51 mg/dL 0.60-1.30 alanine aminotransferase (SGPT), serum 65 U/L -78 aspartate aminotransferase (SGOT), serum 38 U/L 15-37 calcium, serum 8.2 mg/dL 8.5-10.1 bilirubin, serum, total 0.50 mg/dL 0.00-1.00 sodium, serum 135 mmol/L 098-624 3378/04/10 carbon dioxide, venous blood 26.1 mmol/L 21.0-32.0 potassium, serum 4.2 mmol/L 3.5-5.2 chloride, serum 100 mmol/L 98-107 blood glucose 293 mg/dL 65-110 urea nitrogen, blood 18 mg/dL 7-18 creatinine, serum 2.06 mg/dL 0.60-1.30 alanine aminotransferase (SGPT), serum 59 U/L 12-78 aspartate aminotransferase (SGOT), serum 47 U/L 15-37 calcium, serum 8.6 mg/dL 8.5-10.1 bilirubin, serum, total 0.30 mg/dL 0.00-1.00 sodium, serum 139 mmol/L 700-191 9624/05/01 carbon dioxide, venous blood 25.2 mmol/L 21.0-32.0 [...] % 11.6-14.8 platelet count 103 10^3/MM^3 10*3/mm3 020-962 3809/05/01 leukocyte count, blood 5.0 10^3/MM^3 10*3/mm3 4.6-10.2 [...] % 11.6-14.8 platelet count 271 10^3/MM^3 10*3/mm3 861-081 1840/04/10 leukocyte count, blood 4.8 10^3/MM^3 10*3/mm3 4.6-10.2 [...] % 11.6-14.8 platelet count 200 10^3/MM^3 10*3/mm3 499-334 4196/05/15 leukocyte count, blood 1.7 10^3/MM^3 10*3/mm3 4.6-10.2 [...] % 11.6-14.8 platelet count 36 10^3/MM^3 10*3/mm3 626-056 2450/06/05 leukocyte count, blood 2.7 10^3/MM^3 10*3/mm3 4.6-10.2 [...] % 11.6-14.8 platelet count 84 10^3/MM^3 10*3/mm3 295-142 9119/08/01 leukocyte count, blood 5.1 10^3/MM^3 10*3/mm3 4.6-10.2 [...] % 11.6-14.8 platelet count 235 10^3/MM^3 10*3/mm3 343-368 8346/07/24 leukocyte count, blood 4.3 10^3/MM^3 10*3/mm3 4.6-10.2 [...] Panel - Chemistry sodium, serum 132 mmol/L 586-977 1735/06/19 carbon dioxide, venous blood 20.9 mmol/L 21.0-32.0 potassium, serum 3.9 mmol/L 3.5-5.2 chloride, serum 102 mmol/L 98-107 blood glucose 259 mg/dL 65-95 urea nitrogen, blood 16 mg/dL 7-18 creatinine, serum 1.46 mg/dL 0.60-1.30 alanine aminotransferase (SGPT), serum 62 U/L 12-78 aspartate aminotransferase (SGOT), serum 27 U/L 15-37 calcium, serum 7.5 mg/dL 8.5-10.1 bilirubin, serum, total 0.50 mg/dL 0.00-1.00 sodium, serum 134 mmol/L 430-247 5573/06/12 carbon dioxide, venous blood 21.9 mmol/L 21.0-32.0 potassium, serum 4.4 mmol/L 3.5-5.2 chloride, serum 97 mmol/L 98-107 blood glucose 191 mg/dL 65-95 urea nitrogen, blood 23 mg/dL 7-18 creatinine, serum 1.68 mg/dL 0.60-1.30 alanine aminotransferase (SGPT), serum 64 U/L aspartate aminotransferase (SGOT), serum 35 U/L - calcium, serum 8.9 mg/dL 8.5-10.1 bilirubin, serum, total 0.70 mg/dL 0.00-1.00 sodium, serum 136 mmol/L 049-592 1135/05/29 carbon dioxide, venous blood 22.4 mmol/L 21.0-32.0 potassium, serum 4.0 mmol/L 3.5-5.2 chloride, serum 104 mmol/L 98-107 blood glucose 128 mg/dL 65-95 urea nitrogen, blood 20 mg/dL 7-18 creatinine, serum 1.47 mg/dL 0.60-1.30 alanine aminotransferase (SGPT), serum 80 U/L aspartate aminotransferase (SGOT), serum 38 U/L 15- calcium, serum 9.1 mg/dL 8.5-10.1 bilirubin, serum, total 0.40 mg/dL 0.00-1.00 sodium, serum 134 mmol/L 532-022 7724/05/22 carbon dioxide, venous blood 25.2 mmol/L 21.0-32.0 [...] W/DIFF - Chemistry sodium, serum 137 mmol/L 367-483 8074/08/16 carbon dioxide, venous blood 26.3 mmol/L 21.0-32.0 [...] LABS - Chemistry cholesterol, serum 115 mg/dL 664-914 2098/08/18 triglyceride, serum, fasting 89 mg/dL 30-200 HDL [...] mg/dL Encounters Code Encounter Date Provider Facility CPT-99702 [id number]-[id number] Vst-Est Level IV 11:03:20 CDT Prosper Arenas MD [facility] CPT-89168 Level 3 Est. Patient 14:09:25 DIRECTOR OF MAINTENANCE Dee Palmer APRN [facility] CPT-39120 Level 3 Est. Patient 10:53:32 DIRECTOR OF MAINTENANCE Moy Garcia [facility] CPT-39066 Level 3 Est. Patient 17:11:55 DIRECTOR OF MAINTENANCE Ismael Gracia MD [facility] CPT-00841 Level 4 Est. Patient 16:29:19 CDT Mekhi Dukes MD [facility] CPT-72397 Level 3 New Patient 17:05:24 CDT Ismael Gracia MD [facility] CPT-65494 Level 2 Est. Patient 15:43:17 CDT Mekhi Dukes MD [facility] CPT-04039 Level 3 Est. Patient 09:30:37 CDT Moy Garcia [facility] CPT-09704 Level 3 Est. Patient 10:00:14 CDT Mekhi Dukes MD [facility] CPT-83138 Level 3 Est. Patient 12:24:09 [facility] Level 3 Est. Patient 14:34:57 CDT Prosper Arenas MD [facility] CPT-93902 Level 3 New Patient 15:44:53 DIRECTOR OF MAINTENANCE Mekhi Dukes MD [facility] CPT-64767 Level 3 Est. Patient 14:53:34 DIRECTOR OF MAINTENANCE Prosper Arenas MD [facility] CPT-95215 Level 4 Est. Patient 10:05:41 DIRECTOR OF MAINTENANCE Moy Garcia [facility] CPT-07516 Level 3 Est. Patient 11:18:32 CDT Luxpapo Garcia [facility] CPT-46243 Level 4 Est. Patient 11:05:10 CDT Luxpapo Garcia [facility] CPT-06624 Level 3 Est. Patient 11:08:27 DIRECTOR OF MAINTENANCE Moy Gracia [facility] CPT-56766 Level 4 Est. Patient 10:43:59 CDT Prosper Arenas MD [facility] CPT-70367 Level 3 Est. Patient 10:51:19 CDT Luxshoaib Garcia [facility] CPT-39560 Level 3 Est. Patient 10:20:31 CDT [facility]83 Level 3 Est. Patient 17:08:45 [facility] CPT-57823 Level 2 Est. Patient 13:54:36 CDT Augustina Mata APRN [facility] CPT-42428 Level 3 Est. Patient 12:00:42 CDT Prosper Arenas MD [facility] CPT-28116 Level 3 Est. Patient 09:57:28 DIRECTOR OF MAINTENANCE [facility] CPT-41727 Level 3 Est. Patient 11:41:19 DIRECTOR OF MAINTENANCE [facility] CPT-20447 Level 4 Est. Patient 17:07:35 DIRECTOR OF MAINTENANCE [facility] CPT-41751 Level 5 Est. Patient 14:33:32 CDT [facility] CPT-26140 Level 3 Est. Patient 12:25:35 CDT Prosper Arenas MD [facility] Procedures Code Procedure Name Date Entry Date Standard Description CPT-11784 Chest, 2 views 14:17:20 DIRECTOR OF MAINTENANCE CPT-27697 Postop F/U Visit 14:44:45 DIRECTOR OF MAINTENANCE CPT-32879 Postop F/U Visit 17:20:20 DIRECTOR OF MAINTENANCE CPT-G0439 [facility] Annual Wellness Exam 08:39:41 DIRECTOR OF MAINTENANCE CPT-000 Give Appropriate Flu Vaccine 10:13:55 DIRECTOR OF MAINTENANCE CPT-000 Give Immunizations Due 10:13:55 DIRECTOR OF MAINTENANCE CPT-39792 HGBA1C - LAB USE ONLY 09:42:47 DIRECTOR OF MAINTENANCE CPT-23496 TPSA - LAB USE ONLY 09:42:46 DIRECTOR OF MAINTENANCE CPT-58216 Venipuncture Draw Fee 09:42:46 DIRECTOR OF MAINTENANCE CPT-06524 Port a cath flush 13:33:18 DIRECTOR OF MAINTENANCE CPT-45383 First Vx - Ix admin for Medicare patients 10:42:57 DIRECTOR OF MAINTENANCE CPT-91408 Fluzone Preservative Free Intramuscular Suspension 10:42 :57 DIRECTOR OF MAINTENANCE CPT-G0438 Initial Annual Wellness Exam 10:13:55 DIRECTOR OF MAINTENANCE CPT-000 Give Appropriate Flu Vaccine 10:44:04 CDT CPT-000 Give Pneumovax 10:44:03 CDT CPT-89467 Port a cath flush 17:04:43 CDT CPT-66870 Prevnar 13 11:19:17 CDT CPT-64116 Fluzone Quadrivalent preservative free (>=3yrs.) 11:19: 17 CDT CPT-58755 Immunization Each Additional Inj 11:19:17 CDT CPT-01030 Immunization Single Admin 11:19:17 CDT CPT-58692 Port a cath flush 13:28:22 CDT CPT-TCMM Transitional Care Mgmt-Moderate 13:40:15 CDT CPT-G0008 Administration of Influenza Virus Vaccine 13:59:20 CDT CPT-70364 Fluzone High-Dose Intramuscular Suspension 13:59:20 CDT CPT-74712 Venipuncture Draw Fee 09:56:19 CDT CPT-OV Office Visit 15:46:10 CDT
--- OUTSIDE RECORDS SUMMARY | 2017-12-31 15:35 | XMS REPORT | Clinical Summary ---
Author Author Admin, [facility] Organization [facility] Address Unknown Phone Unavailable Allergies, Adverse Reactions, Alerts Allergy Name Reaction Description Start Date Severity Status Provider ERYTHROMYCIN Stomach cramps Moderate Active Prosper Arenas MD CODEINE Critical Active Maliheh Ziglari FOUNDRY PROCESS ENGINEER DARVOCET Critical Active Maliheh Ziglari FOUNDRY PROCESS ENGINEER LEVAQUIN Critical Active Maliheh Ziglari FOUNDRY PROCESS ENGINEER Conditions or Problems Problem Name Problem Code Onset Date Status Entry Date Provider Comment Standard Description Annotate Diabetes, Type 2 250.00 Resolved Tami Miller head of geography mellitus without mention of complication, type II [...] Diabetes mellitus, type II, uncontrolled 250.02 Active Malihshoaib DURANTP Diabetes mellitus without mention of complication, [...] with hyperglycemia 250.00 Active 03/21 Maliheh Ziglari FOUNDRY PROCESS ENGINEER Diabetes mellitus without mention of complication, type II or unspecified type, not stated as uncontrolled prison use of insulin treatment V58.67 Active Jose Antonioeh Rodrigoglari FOUNDRY PROCESS ENGINEER Long-term (current) use of insulin Diabetes mellitus, type II with hypoglycemia 250.80 Active 07/22 Maliheh Ziglari FOUNDRY PROCESS ENGINEER Diabetes mellitus with other specified manifestations, type II or unspecified type, not stated as uncontrolled 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 Maliheh Ziglari FOUNDRY PROCESS ENGINEER Diabetes mellitus with renal manifestations, type II or unspecified type, not stated as uncontrolled Wellness exam V70.0 Active Dee Palmer APRN Routine general medical examination at a health care facility Fitting and adjustment of vascular catheter V58.81 Active 02/06 Dee Palmer APRN Encounter for fitting and adjustment of vascular catheter Unawareness of hypoglycemia in diabetes mellitus, type II 250.80 Active Maliheh Rodrigoglari FOUNDRY PROCESS ENGINEER Diabetes mellitus with other specified manifestations, [...] specified as recurrent) Gastritis Inactive Maliheh Ziglari FOUNDRY PROCESS ENGINEER Unspecified gastritis and gastroduodenitis, without mention [...] TABLET 1 daily for depression CITALOPRAM HYDROBROMIDE 56961473364 Active Prosper Arenas MD Active PREDNISONE 20 MG ORAL TABLET 2 tabs daily for 4 days, 1 tab daily for 4 days, 1/2 tab daily for 4 days PREDNISONE [id number] No Longer Active Prosper Arenas MD Active AZITHROMYCIN 250 MG ORAL TABLET 2 po qd x 1 day, then 1 po qd x 4 days 05/07 AZITHROMYCIN 36498517499 No Longer Active Dee Palmer APRN Active GUAIFENESIN DM 400-20 MG ORAL TABLET 1 pill by mouth twice daily, if needed for cough DEXTROMETHORPHAN-GUAIFENESIN 73396093557 Active Dee Palmer APRN Active ASPIRIN 81 MG ORAL TABLET 1 po qd ASPIRIN 80697243230 Active Dee Palmer APRN Active CALCIUM 500/D 500-200 MG-UNIT ORAL TABLET one tablet daily CALCIUM CARBONATE-VITAMIN D 26130614573 No Longer Active Dee Palmer APRN Active HYDROCODONE-ACETAMINOPHEN 7.5-325 MG ORAL TABLET 1-2 every 4-6 hrs prn 02/25 HYDROCODONE-ACETAMINOPHEN 56472929591 Active Marina King BESSY Active ASPIRIN 81 MG ORAL TABLET 1 tablet by mouth daily ASPIRIN 59925164866 No Longer Active Marina Messina APRN Active SIMVASTATIN 80 MG ORAL TABLET 1/2 tablet daily SIMVASTATIN 85015766124 No Longer Active Mekhi Dukes MD Active OMEPRAZOLE 20 MG ORAL CAPSULE DELAYED RELEASE 1 qd OMEPRAZOLE 86810304582 No Longer Active Mekhi Dukes MD Active METOPROLOL TARTRATE 25 MG ORAL TABLET 1/2 tablet twice a day METOPROLOL TARTRATE 86495397409 No Longer Active Mekhi Dukes MD Active LISINOPRIL 5 MG ORAL TABLET 1 daily LISINOPRIL 84279285879 No Longer Active Mekhi Dukes MD Active NOVOLOG FLEXPEN 100 UNIT/ML SUBCUTANEOUS SOLUTION PEN-INJECTOR Take 8 units with each meal, add 1u/50 for blood sugars above 150. INSULIN ASPART 12201458724 Active Moy PARISH Active GABAPENTIN 300 MG ORAL CAPSULE 1 tab BID GABAPENTIN 74860761109 Active Tami Miller RN Active PREDNISONE 20 MG ORAL TABLET Take 2 daily for 3 days and then 1 daily for 3 days PREDNISONE 51060312738 No Longer Active Maliheh Ziglari FOUNDRY PROCESS ENGINEER Active BENZONATATE 200 MG ORAL CAPSULE Take 1 tablet 3 times a day as needed for cough BENZONATATE 21107888513 No Longer Active Porsper Arenas MD Active HYDROCHLOROTHIAZIDE 25 MG ORAL TABLET 1 tablet by mouth daily HYDROCHLOROTHIAZIDE 34063753435 No Longer Active Prosper Arenas MD Active ACCU-CHEK JOANNA PLUS IN VITRO STRIP check blood sugars 5x a day, before each meal and bedtime and 15 minutes after treating a low blood. sugar GLUCOSE BLOOD 91423549427 Active Maliheh Ziglari FOUNDRY PROCESS ENGINEER Active LANTUS SOLOSTAR 100 UNIT/ML SUBCUTANEOUS SOLUTION PEN-INJECTOR Take 40 units at 7-8pm daily INSULIN GLARGINE 65687827485 Active Maliheh Ziglari FOUNDRY PROCESS ENGINEER Active MECLIZINE HCL 25 MG ORAL TABLET 1 daily needed for dizziness 2015 MECLIZINE HCL 02416433436 No Longer Active Maleh Ziglari FOUNDRY PROCESS ENGINEER Active BENZONATATE 200 MG ORAL CAPSULE 1 tab, 2-3 times a day BENZONATATE 63145377751 No Longer Active Maliheh Ziglari FOUNDRY PROCESS ENGINEER Active HALOPERIDOL 0.5 MG ORAL TABLET one tablet three times a day HALOPERIDOL 30629363085 No Longer Active Maliheh Ziglari FOUNDRY PROCESS ENGINEER Active TRAZODONE HCL 50 MG ORAL TABLET three tablets at bed time TRAZODONE HCL 56288030721 No Longer [facility] FOUNDRY PROCESS ENGINEER Active REVLIMID 25 MG ORAL CAPSULE one capsule daily for 21 days then off for 7 days LENALIDOMIDE 60020486838 No Longer Active Maliheh Ziglari FOUNDRY PROCESS ENGINEER Active ZITHROMAX Z-EDDIE 250 MG ORAL TABLET 2 today, then 1 daily for 4 days AZITHROMYCIN 99300779441 No Longer Active Augustina Mata LIGHT CLEANER Active NOVOLIN R RELION 100 UNIT/ML INJECTION SOLUTION 30- 40 units each meal sliding scale INSULIN REGULAR HUMAN 80641410164 No Longer Active Maliheh Ziglari FOUNDRY PROCESS ENGINEER Active HYDROCODONE-ACETAMINOPHEN 5-500 MG ORAL TABLET 1-2 FOUR TIMES A DAY, PRN 2010 HYDROCODONE-ACETAMINOPHEN 27514360487 No Longer Active Prosper Arenas MD Active DOXYCYCLINE HYCLATE 100 MG ORAL CAPSULE take one capsule by mouth twice daily for ten days DOXYCYCLINE HYCLATE 75339154236 No Longer Active Mekhi Dukes MD Active DOXYCYCLINE HYCLATE 100 MG ORAL CAPSULE take one capsule by mouth twice daily for ten days DOXYCYCLINE HYCLATE 100 MG ORAL CAPSULE 1479169 DOXYCYCLINE HYCLATE Inactive HYDROCODONE-ACETAMINOPHEN 5-500 MG ORAL [...] days ZITHROMAX Z-EDDIE 250 MG ORAL TABLET 533456 AZITHROMYCIN Inactive REVLIMID 25 MG ORAL CAPSULE one capsule daily for 21 days then off for 7 days REVLIMID 25 MG ORAL CAPSULE LENALIDOMIDE Inactive TRAZODONE HCL 50 MG ORAL TABLET three tablets at bed time TRAZODONE HCL 50 MG ORAL TABLET 696993 TRAZODONE HCL Inactive HALOPERIDOL 0.5 MG ORAL TABLET one tablet three times a day HALOPERIDOL 0.5 MG ORAL TABLET 993158 HALOPERIDOL Inactive BENZONATATE 200 MG ORAL CAPSULE 1 tab, 2-3 times a day BENZONATATE 200 MG ORAL CAPSULE 183927 BENZONATATE Inactive MECLIZINE HCL 25 MG ORAL TABLET 1 daily needed for dizziness 2015 MECLIZINE HCL 25 MG ORAL TABLET 301022 MECLIZINE HCL Inactive HYDROCHLOROTHIAZIDE 25 MG ORAL TABLET 1 tablet by mouth daily HYDROCHLOROTHIAZIDE 25 MG ORAL TABLET 540893 HYDROCHLOROTHIAZIDE Inactive PREDNISONE 20 MG ORAL TABLET Take 2 daily for 3 days and then 1 daily for 3 days PREDNISONE 20 MG ORAL TABLET 031306 PREDNISONE Inactive LISINOPRIL 5 MG ORAL TABLET 1 daily LISINOPRIL 5 MG ORAL TABLET 290691 LISINOPRIL Inactive METOPROLOL TARTRATE 25 MG ORAL TABLET 1/2 tablet twice a day METOPROLOL TARTRATE 25 MG ORAL TABLET 867642 METOPROLOL TARTRATE Inactive OMEPRAZOLE 20 MG ORAL CAPSULE DELAYED RELEASE 1 qd OMEPRAZOLE 20 MG ORAL CAPSULE DELAYED RELEASE 862173 OMEPRAZOLE Inactive SIMVASTATIN 80 MG ORAL TABLET 1/2 tablet daily SIMVASTATIN 80 MG ORAL TABLET 594639 SIMVASTATIN Inactive ASPIRIN 81 MG ORAL TABLET [...] 4 days PREDNISONE 20 MG ORAL TABLET 680442 PREDNISONE Inactive BENZONATATE 200 MG ORAL CAPSULE Take 1 tablet 3 times a day as needed for cough BENZONATATE 200 MG ORAL CAPSULE 365725 BENZONATATE Inactive AZITHROMYCIN 250 MG ORAL TABLET 2 po qd x 1 day, then 1 po qd x 4 days 05/07 AZITHROMYCIN 250 MG ORAL TABLET 983119 AZITHROMYCIN Inactive Advance Directives Directive Description Start [...] CBC W/DIFF - Hematology leukocyte count, blood 4.3 10^3/MM^3 [...] % 11.6-14.8 platelet count 355 10^3/MM^3 10*3/mm3 216-778 6234/06/19 leukocyte count, blood 2.2 10^3/MM^3 10*3/mm3 4.6-10.2 [...] % 11.6-14.8 platelet count 109 10^3/MM^3 10*3/mm3 181-635 9819/07/06 leukocyte count, blood 5.1 10^3/MM^3 10*3/mm3 4.6-10.2 [...] % 11.6-14.8 platelet count 405 10^3/MM^3 10*3/mm3 574-630 3927/05/22 leukocyte count, blood 4.1 10^3/MM^3 10*3/mm3 4.6-10.2 [...] % 11.6-14.8 platelet count 294 10^3/MM^3 10*3/mm3 961-367 4392/05/29 leukocyte count, blood 2.4 10^3/MM^3 10*3/mm3 4.6-10.2 [...] Panel - Chemistry sodium, serum 134 mmol/L 645-203 5791/05/15 carbon dioxide, venous blood 23.5 mmol/L 21.0-32.0 potassium, serum 4.8 mmol/L 3.5-5.2 chloride, serum 101 mmol/L 98-107 blood glucose 139 mg/dL 65-95 urea nitrogen, blood 19 mg/dL 7-18 creatinine, serum 1.79 mg/dL 0.60-1.30 alanine aminotransferase (SGPT), serum 140 U/L 12-78 aspartate aminotransferase (SGOT), serum 104 U/L 15-37 calcium, serum 8.5 mg/dL 8.5-10.1 bilirubin, serum, total 0.40 mg/dL 0.00-1.00 sodium, serum 135 mmol/L 343-295 6587/05/08 carbon dioxide, venous blood 29.0 mmol/L 21.0-32.0 potassium, serum 4.8 mmol/L 3.5-5.2 chloride, serum 101 mmol/L 98-107 blood glucose 165 mg/dL 65-95 urea nitrogen, blood 19 mg/dL 7-18 creatinine, serum 1.51 mg/dL 0.60-1.30 alanine aminotransferase (SGPT), serum 65 U/L 12-78 aspartate aminotransferase (SGOT), serum 38 U/L 15-37 calcium, serum 8.2 mg/dL 8.5-10.1 bilirubin, serum, total 0.50 mg/dL 0.00-1.00 sodium, serum 135 mmol/L 736-202 5777/04/10 carbon dioxide, venous blood 26.1 mmol/L 21.0-32.0 potassium, serum 4.2 mmol/L 3.5-5.2 chloride, serum 100 mmol/L 98-107 blood glucose 293 mg/dL 65-110 urea nitrogen, blood 18 mg/dL 7-18 creatinine, serum 2.06 mg/dL 0.60-1.30 alanine aminotransferase (SGPT), serum 59 U/L -78 aspartate aminotransferase (SGOT), serum 47 U/L 15-37 calcium, serum 8.6 mg/dL 8.5-10.1 bilirubin, serum, total 0.30 mg/dL 0.00-1.00 sodium, serum 139 mmol/L 110-010 7017/05/01 carbon dioxide, venous blood 25.2 mmol/L 21.0-32.0 potassium, serum 4.1 mmol/L 3.5-5.2 chloride, serum 104 mmol/L 98-107 blood glucose 64 mg/dL 65-95 urea nitrogen, blood 16 mg/dL 7-18 creatinine, serum 1.55 mg/dL 0.60-1.30 alanine aminotransferase (SGPT), serum 80 U/L - aspartate aminotransferase (SGOT), serum 53 U/L 15- calcium, serum 8.1 mg/dL 8.5-10.1 bilirubin, serum, total 0.40 mg/dL 0.00-1.00 urea nitrogen, blood 16 mg/dL 7- creatinine, serum 1.67 mg/dL 0.60-1.30 alanine aminotransferase (SGPT), serum 75 U/L aspartate aminotransferase (SGOT), serum 46 U/L - calcium, serum 9.8 mg/dL 8.5-10.1 bilirubin, serum, total 0.40 mg/dL 0.00-1.00 sodium, serum 137 mmol/L 722-901 0516/06/05 carbon dioxide, venous blood 26.0 mmol/L 21.0-32.0 potassium, serum 4.5 mmol/L 3.5-5.2 chloride, serum 100 mmol/L 98-107 blood glucose 100 mg/dL - sodium, serum 133 mmol/L 814-864 7320/07/24 carbon dioxide, venous blood 20.6 mmol/L 21.0-32.0 potassium, serum 3.0 mmol/L 3.5-5.2 chloride, serum 100 mmol/L 98-107 blood glucose 193 mg/dL 65-95 urea nitrogen, blood 11 mg/dL 7-18 creatinine, serum 1.28 mg/dL 0.60-1.30 alanine aminotransferase (SGPT), serum 48 U/L aspartate aminotransferase (SGOT), serum 22 U/L 15- calcium, serum 8.3 mg/dL 8.5-10.1 bilirubin, serum, total 0.50 mg/dL 0.00-1.00 sodium, serum 124 mmol/L 603-627 9473/07/06 carbon dioxide, venous blood 20.9 mmol/L 21.0-32.0 potassium, serum 4.0 mmol/L 3.5-5.2 chloride, serum 90 mmol/L 98-107 blood glucose 175 mg/dL 65-95 urea nitrogen, blood 14 mg/dL 7-18 creatinine, serum 1.21 mg/dL 0.60-1.30 alanine aminotransferase (SGPT), serum 70 U/L 12-78 aspartate aminotransferase (SGOT), serum 32 U/L 15-37 calcium, serum 8.5 mg/dL 8.5-10.1 bilirubin, serum, total 0.80 mg/dL 0.00-1.00 sodium, serum 133 mmol/L 743-225 4633/08/01 carbon dioxide, venous blood 22.0 mmol/L 21.0-32.0 potassium, serum 3.4 mmol/L 3.5-5.2 chloride, serum 96 mmol/L 98-107 blood glucose 162 mg/dL 65-95 urea nitrogen, blood 13 mg/dL 7-18 creatinine, serum 1.16 mg/dL 0.60-1.30 alanine aminotransferase (SGPT), serum 61 U/L -78 aspartate aminotransferase (SGOT), serum 33 U/L 15-37 calcium, serum 8.5 mg/dL 8.5-10.1 bilirubin, serum, total 0.70 mg/dL 0.00-1.00 Lab Report: CBC W/DIFF, Comp. Metabolic Panel - Hematology leukocyte count, blood 5.1 10^3/MM^3 10*3/mm3 4.6-10.2 [...] % 11.6-14.8 platelet count 235 10^3/MM^3 10*3/mm3 732-170 1653/05/01 mean corpuscular hemoglobin concentration, RBC 33.1 G/DL % 31.8- 35.4 red blood cell distribution width 13.9 % 11.6-14.8 platelet count 271 10^3/MM^3 10*3/mm3 091-165 8304/07/24 leukocyte count, blood 4.3 10^3/MM^3 10*3/mm3 4.6-10.2 [...] % 11.6-14.8 platelet count 262 10^3/MM^3 10*3/mm3 606-067 7076/05/08 leukocyte count, blood 1.8 10^3/MM^3 10*3/mm3 4.6-10.2 [...] % 11.6-14.8 platelet count 103 10^3/MM^3 10*3/mm3 365-653 4682/05/01 leukocyte count, blood 5.0 10^3/MM^3 10*3/mm3 4.6-10.2 [...] % 11.6-14.8 platelet count 200 10^3/MM^3 10*3/mm3 533-052 5430/05/15 leukocyte count, blood 1.7 10^3/MM^3 10*3/mm3 4.6-10.2 [...] % 11.6-14.8 platelet count 36 10^3/MM^3 10*3/mm3 241-947 2041/06/05 leukocyte count, blood 2.7 10^3/MM^3 10*3/mm3 4.6-10.2 [...] Lab Report: Comp. Metabolic Panel - Chemistry urea nitrogen, blood 20 mg/dL 7-18 creatinine, serum 1.47 mg/dL 0.60-1.30 alanine aminotransferase (SGPT), serum 80 U/L 12-78 aspartate aminotransferase (SGOT), serum 38 U/L 15-37 calcium, serum 9.1 mg/dL 8.5-10.1 bilirubin, serum, total 0.40 mg/dL 0.00-1.00 sodium, serum 134 mmol/L 442-851 4316/05/22 carbon dioxide, venous blood 25.2 mmol/L 21.0-32.0 potassium, serum 5.0 mmol/L 3.5-5.2 chloride, serum 100 mmol/L 98-107 blood glucose 278 mg/dL 65-95 urea nitrogen, blood 19 mg/dL 7-18 creatinine, serum 1.49 mg/dL 0.60-1.30 alanine aminotransferase (SGPT), serum 93 U/L - aspartate aminotransferase (SGOT), serum 58 U/L - calcium, serum 9.1 mg/dL 8.5-10.1 bilirubin, serum, total 0.20 mg/dL 0.00-1.00 sodium, serum 132 mmol/L 328-825 5157/06/19 carbon dioxide, venous blood 20.9 mmol/L 21.0-32.0 potassium, serum 3.9 mmol/L 3.5-5.2 chloride, serum 102 mmol/L 98-107 blood glucose 259 mg/dL 65-95 urea nitrogen, blood 16 mg/dL 7-18 creatinine, serum 1.46 mg/dL 0.60-1.30 alanine aminotransferase (SGPT), serum 62 U/L - aspartate aminotransferase (SGOT), serum 27 U/L - calcium, serum 7.5 mg/dL 8.5-10.1 bilirubin, serum, total 0.50 mg/dL 0.00-1.00 blood glucose 128 mg/dL 65-95 chloride, serum 104 mmol/L 98-107 potassium, serum 4.0 mmol/L 3.5-5.2 carbon dioxide, venous blood 22.4 mmol/L 21.0-32.0 sodium, serum 136 mmol/L 303-684 0819/06/12 sodium, serum 134 mmol/L 397-308 6500/06/12 carbon dioxide, venous blood 21.9 mmol/L 21.0-32.0 [...] W/DIFF - Chemistry sodium, serum 137 mmol/L 178-760 9313/08/16 carbon dioxide, venous blood 26.3 mmol/L 21.0-32.0 [...] mg/dL Encounters Code Encounter Date Provider Facility CPT-01685 [id number] Vst-Est Level IV 11:03:20 CDT Prosper Arenas MD [facility] CPT-41698 Level 3 Est. Patient 14:09:25 CORE DRILLER HELPER Dee Palmer APRN [facility] CPT-77855 Level 3 Est. Patient 10:53:32 CORE DRILLER HELPER [facility] Level 3 Est. Patient 17:11:55 CORE DRILLER HELPER Ismael Gracia MD [facility]-76762 Level 4 Est. Patient 16:29:19 CDT Mekhi Dukes MD [facility] CPT-74740 Level 3 New Patient 17:05:24 CDT Ismael Gracia MD [facility] CPT-06398 Level 2 Est. Patient 15:43:17 CDT Mekhi Dukes MD [facility] CPT-14980 Level 3 Est. [facility] 09:30:37 [facility] Est. Patient 10:00:14 CDT Mekhi Dukes MD [facility] CPT-35496 Level 3 Est. Patient 12:24:09 CDT Moy Garcia [facility] CPT-22031 Level 3 Est. Patient 14:34:57 CDT Prosper Arenas MD [facility] CPT-44644 Level 3 New Patient 15:44:53 CORE DRILLER HELPER Mekhi Dukes MD [facility] CPT-24779 Level 3 Est. Patient 14:53:34 CORE DRILLER HELPER Prosper Arenas MD [facility] CPT-46586 Level 4 Est. Patient 10:05:41 CORE DRILLER HELPER [facility] Level 3 Est. Patient 11:18:32 CDT Moy Garcia [facility] CPT-17674 Level 4 Est. Patient 11:05:10 CDT Moy Garcia [facility] CPT-10661 Level 3 Est. Patient 11:08:27 CORE DRILLER HELPER Moy Garcia [facility] CPT-44292 Level 4 Est. Patient 10:43:59 CDT Prosper Arenas MD [facility] CPT-17406 Level 3 Est. Patient 10:51:19 CDT Moy Garcia [facility] CPT-12358 Level 3 Est. Patient 10:20:31 CDT Moy Garcia [facility] CPT-88083 Level 3 Est. Patient 17:08:45 [facility] CPT-49088 Level 2 Est. Patient 13:54:36 CDT Augustina Mata APRN [facility] CPT-23721 Level 3 Est. Patient 12:00:42 CDT Prosper Arenas MD [facility] CPT-06187 Level 3 Est. Patient 09:57:28 CORE DRILLER HELPER Moy Garcia [facility] CPT-26876 Level 3 Est. Patient 11:41:19 CORE DRILLER HELPER Moy Garcia [facility] CPT-92609 Level 4 Est. Patient 17:07:35 CORE DRILLER HELPER Moy Garcia [facility] CPT-26521 Level 5 Est. Patient 14:33:32 CDT Moy Rodrigokymrex [facility] CPT-35289 Level 3 Est. Patient 12:25:35 CDT Prosper Arenas MD [facility] Procedures Code Procedure Name Date Entry Date Standard Description CPT-22330 Chest, 2 views 14:17:20 CORE DRILLER HELPER CPT-18142 Postop F/U Visit 14:44:45 CORE DRILLER HELPER CPT-58364 Postop F/U Visit 17:20:20 CORE DRILLER HELPER CPT-G0439 Subsequent Annual Wellness Exam 08:39:41 CORE DRILLER HELPER CPT-000 Give Appropriate Flu Vaccine 10:13:55 CORE DRILLER HELPER CPT-000 Give Immunizations Due 10:13:55 CORE DRILLER HELPER CPT-05545 HGBA1C - LAB USE ONLY 09:42:47 CORE DRILLER HELPER CPT-61480 TPSA - LAB USE ONLY 09:42:46 CORE DRILLER HELPER CPT-57427 Venipuncture Draw Fee 09:42:46 CORE DRILLER HELPER CPT-04796 Port a cath flush 13:33:18 CORE DRILLER HELPER CPT-53306 First Vx - Ix admin for Medicare patients 10:42:57 CORE DRILLER HELPER CPT-81071 Fluzone Preservative Free Intramuscular Suspension 10:42 :57 CORE DRILLER HELPER CPT-G0438 Initial Annual Wellness Exam 10:13:55 CORE DRILLER HELPER CPT-000 Give Appropriate Flu Vaccine 10:44:04 CDT CPT-000 Give Pneumovax 10:44:03 CDT CPT-44793 Port a cath flush 17:04:43 CDT CPT-98465 Prevnar 13 11:19:17 CDT CPT-35190 Fluzone Quadrivalent preservative free (>=3yrs.) 11:19: 17 CDT CPT-06546 Immunization Each Additional Inj 11:19:17 CDT CPT-81520 Immunization Single Admin 11:19:17 CDT CPT-28906 Port a cath flush 13:28:22 CDT CPT-TCMM Transitional Care Mgmt-Moderate 13:40:15 CDT CPT-G0008 Administration of Influenza Virus Vaccine 13:59:20 CDT CPT-56708 Fluzone High-Dose Intramuscular Suspension 13:59:20 CDT CPT-04009 Venipuncture Draw Fee 09:56:19 CDT CPT-OV Office Visit 15:46:10 CDT
--- OUTSIDE RECORDS SUMMARY | 2017-12-31 15:37 | XMS REPORT | Clinical Summary ---
Author Author Admin, [facility] Organization [facility] Address Unknown Phone Unavailable Allergies, Adverse Reactions, Alerts Allergy Name Reaction Description Start Date Severity Status Provider ERYTHROMYCIN Stomach cramps Moderate Active Prosper Arenas MD CODEINE Critical Active Maliheh Ziglari MARKETING ASSISTANT [employer] DARVOCET Critical Active Maliheh Ziglari MARKETING ASSISTANT [employer] LEVAQUIN Critical Active Maliheh Ziglari MARKETING ASSISTANT [employer] Conditions or Problems Problem Name Problem Code Onset Date Status Entry Date Provider Comment Standard Description Annotate Diabetes, Type 2 250.00 Resolved 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 mellitus without mention of complication, type II [...] with hyperglycemia 250.00 Active 03/21 Maliheh Ziglari MARKETING ASSISTANT [employer] Diabetes mellitus without mention of complication, type II or unspecified type, not stated as uncontrolled group home use of insulin treatment V58.67 Active Jose Antonioeh Rodrigoglari MARKETING ASSISTANT [employer] Long-term (current) use of insulin Diabetes mellitus, type II with hypoglycemia 250.80 Active 07/22 Maliheh Ziglari MARKETING ASSISTANT [employer] Diabetes mellitus with other specified manifestations, type II or unspecified type, not stated as uncontrolled 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 Maliheh Ziglari MARKETING ASSISTANT [employer] Diabetes mellitus with renal manifestations, type II or unspecified type, not stated as uncontrolled Wellness exam V70.0 Active Dee Palmer APRN Routine general medical examination at a health care facility Fitting and adjustment of vascular catheter V58.81 Active 02/06 Dee Palmer APRN Encounter for fitting and adjustment of vascular catheter Unawareness of hypoglycemia in diabetes mellitus, type II 250.80 Active Maliheh Rodrigoglari MARKETING ASSISTANT [employer] Diabetes mellitus with other specified manifestations, type [...] specified as recurrent) Gastritis Inactive Maliheh Ziglari MARKETING ASSISTANT [employer] Unspecified gastritis and gastroduodenitis, without mention of hemorrhage Cough 786.2 Active Dee Palmer APRN Cough Multiple myeloma, in relapse 203.02 Active Lexus Hortaw LRT Multiple myeloma in relapse Body Mass Index 26.0-26.9 Adult Active Prosper Arenas MD Body Mass Index 26.0-26.9, adult Major depressive disorder, single episode, moderate 296.20 Active Prosper Arenas MD Major depressive disorder, single episode, unspecified degree Weakness present 728.87 Active Anjelica SPRAGUE Muscle weakness (generalized) Diabetes, Type 2 ICD-250.00 Inactive Mekhi Dukes MD Syncope and collapse [...] Dukes MD Gastritis Inactive Janis Puente LPN Abdominal pain, right upper quadrant ICD-789.01 Inactive Mekhi Dukes MD Medication List Medication Instructions Start Date Stop Date Generic Name NDC Status Provider Patient Instruction CITALOPRAM HYDROBROMIDE 20 MG ORAL TABLET 1 daily for depression CITALOPRAM HYDROBROMIDE 40379893845 Active Prosper Arenas MD Active PREDNISONE 20 MG ORAL TABLET 2 tabs daily for 4 days, 1 tab daily for 4 days, 1/2 tab daily for 4 days PREDNISONE 18682677606 No Longer Active Prosper Arenas MD Active AZITHROMYCIN 250 MG ORAL TABLET 2 po qd x 1 day, then 1 po qd x 4 days 05/07 AZITHROMYCIN 38752375834 No Longer Active Dee Palmer APRN Active GUAIFENESIN DM 400-20 MG ORAL TABLET 1 pill by mouth twice daily, if needed for cough DEXTROMETHORPHAN-GUAIFENESIN 16573929979 Active Dee Palmer APRN Active ASPIRIN 81 MG ORAL TABLET 1 po qd ASPIRIN 98397088796 Active Dee Palmer APRN Active CALCIUM 500/D 500-200 MG-UNIT ORAL TABLET one tablet daily CALCIUM CARBONATE-VITAMIN D 17274037412 No Longer Active Dee Palmer APRN Active HYDROCODONE-ACETAMINOPHEN 7.5-325 MG ORAL TABLET 1-2 every 4-6 hrs prn 02/25 HYDROCODONE-ACETAMINOPHEN 21049302931 Active Marina King BESSY Active ASPIRIN 81 MG ORAL TABLET 1 tablet by mouth daily ASPIRIN 38138488155 No Longer Active Marina Messina APRN Active SIMVASTATIN 80 MG ORAL TABLET 1/2 tablet daily SIMVASTATIN 90380047374 No Longer Active Mekhi Dukse MD Active OMEPRAZOLE 20 MG ORAL CAPSULE DELAYED RELEASE 1 qd OMEPRAZOLE 14928640404 No Longer Active Mekhi Dukes MD Active METOPROLOL TARTRATE 25 MG ORAL TABLET 1/2 tablet twice a day METOPROLOL TARTRATE 49756414412 No Longer Active Mekhi Dukes MD Active LISINOPRIL 5 MG ORAL TABLET 1 daily LISINOPRIL 25919850878 No Longer Active Mekhi Dukes MD Active NOVOLOG FLEXPEN 100 UNIT/ML SUBCUTANEOUS SOLUTION PEN-INJECTOR Take 8 units with each meal, add 1u/50 for blood sugars above 150. INSULIN ASPART 07359218530 Active Moy PARISH Active GABAPENTIN 300 MG ORAL CAPSULE 1 tab BID GABAPENTIN 61436706292 Active Tami Miller RN Active PREDNISONE 20 MG ORAL TABLET Take 2 daily for 3 days and then 1 daily for 3 days PREDNISONE 81192711122 No Longer Active Maliheh Ziglari MARKETING ASSISTANT [employer] Active BENZONATATE 200 MG ORAL CAPSULE Take 1 tablet 3 times a day as needed for cough BENZONATATE 07289269575 No Longer Active Prosper Arenas MD Active HYDROCHLOROTHIAZIDE 25 MG ORAL TABLET 1 tablet by mouth daily HYDROCHLOROTHIAZIDE 39148536328 No Longer Active Prosper Arenas MD Active ACCU-CHEK JOANNA PLUS IN VITRO STRIP check blood sugars 5x a day, before each meal and bedtime and 15 minutes after treating a low blood. sugar GLUCOSE BLOOD 00136585790 Active Maliheh Ziglari MARKETING ASSISTANT [employer] Active LANTUS SOLOSTAR 100 UNIT/ML SUBCUTANEOUS SOLUTION PEN-INJECTOR Take 40 units at 7-8pm daily INSULIN GLARGINE 68532536161 Active Maliheh Ziglari MARKETING ASSISTANT [employer] Active MECLIZINE HCL 25 MG ORAL TABLET 1 daily needed for dizziness 2015 MECLIZINE HCL 26832856928 No Longer Active Maleh Ziglari MARKETING ASSISTANT [employer] Active BENZONATATE 200 MG ORAL CAPSULE 1 tab, 2-3 times a day BENZONATATE 57925633398 No Longer Active Maliheh Ziglari MARKETING ASSISTANT [employer] Active HALOPERIDOL 0.5 MG ORAL TABLET one tablet three times a day HALOPERIDOL 06100125175 No Longer Active Maliheh Ziglari MARKETING ASSISTANT [employer]AIL [employer] Active TRAZODONE HCL 50 MG ORAL TABLET three tablets at bed time TRAZODONE HCL 09390174208 No Longer [facility] MARKETING ASSISTANT RETAIL [employer] Active REVLIMID 25 MG ORAL CAPSULE one capsule daily for 21 days then off for 7 days LENALIDOMIDE 47713296319 No Longer Active Maliheh Ziglari MARKETING ASSISTANT [employer] Active ZITHROMAX Z-EDDIE 250 MG ORAL TABLET 2 today, then 1 daily for 4 days AZITHROMYCIN 99720203127 No Longer Active Augustina Mata 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 NOVOLIN R RELION 100 UNIT/ML INJECTION SOLUTION 30- 40 units each meal sliding scale INSULIN REGULAR HUMAN 34115805194 No Longer Active Maliheh Ziglari MARKETING ASSISTANT [employer] Active HYDROCODONE-ACETAMINOPHEN 5-500 MG ORAL TABLET 1-2 FOUR TIMES A DAY, PRN 2010 HYDROCODONE-ACETAMINOPHEN 68486327350 No Longer Active Prosper Arenas MD Active DOXYCYCLINE HYCLATE 100 MG ORAL CAPSULE take one capsule by mouth twice daily for ten days DOXYCYCLINE HYCLATE 54130048689 No Longer Active Mekhi Dukes MD Active DOXYCYCLINE HYCLATE 100 MG ORAL CAPSULE take one capsule by mouth twice daily for ten days DOXYCYCLINE HYCLATE 100 MG ORAL CAPSULE 4541721 DOXYCYCLINE HYCLATE Inactive HYDROCODONE-ACETAMINOPHEN 5-500 MG ORAL [...] days ZITHROMAX Z-EDDIE 250 MG ORAL TABLET 081999 AZITHROMYCIN Inactive REVLIMID 25 MG ORAL CAPSULE one capsule daily for 21 days then off for 7 days REVLIMID 25 MG ORAL CAPSULE LENALIDOMIDE Inactive TRAZODONE HCL 50 MG ORAL TABLET three tablets at bed time TRAZODONE HCL 50 MG ORAL TABLET 255892 TRAZODONE HCL Inactive HALOPERIDOL 0.5 MG ORAL TABLET one tablet three times a day HALOPERIDOL 0.5 MG ORAL TABLET 859315 HALOPERIDOL Inactive BENZONATATE 200 MG ORAL CAPSULE 1 tab, 2-3 times a day BENZONATATE 200 MG ORAL CAPSULE 905814 BENZONATATE Inactive MECLIZINE HCL 25 MG ORAL TABLET 1 daily needed for dizziness 2015 MECLIZINE HCL 25 MG ORAL TABLET 609561 MECLIZINE HCL Inactive HYDROCHLOROTHIAZIDE 25 MG ORAL TABLET 1 tablet by mouth daily HYDROCHLOROTHIAZIDE 25 MG ORAL TABLET 768404 HYDROCHLOROTHIAZIDE Inactive PREDNISONE 20 MG ORAL TABLET Take 2 daily for 3 days and then 1 daily for 3 days PREDNISONE 20 MG ORAL TABLET 149022 PREDNISONE Inactive LISINOPRIL 5 MG ORAL TABLET 1 daily LISINOPRIL 5 MG ORAL TABLET 071911 LISINOPRIL Inactive METOPROLOL TARTRATE 25 MG ORAL TABLET 1/2 tablet twice a day METOPROLOL TARTRATE 25 MG ORAL TABLET 099832 METOPROLOL TARTRATE Inactive OMEPRAZOLE 20 MG ORAL CAPSULE DELAYED RELEASE 1 qd OMEPRAZOLE 20 MG ORAL CAPSULE DELAYED RELEASE 380039 OMEPRAZOLE Inactive SIMVASTATIN 80 MG ORAL TABLET 1/2 tablet daily SIMVASTATIN 80 MG ORAL TABLET 715377 SIMVASTATIN Inactive ASPIRIN 81 MG ORAL TABLET [...] 4 days PREDNISONE 20 MG ORAL TABLET 174824 PREDNISONE Inactive BENZONATATE 200 MG ORAL CAPSULE Take 1 tablet 3 times a day as needed for cough BENZONATATE 200 MG ORAL CAPSULE 092148 BENZONATATE Inactive AZITHROMYCIN 250 MG ORAL TABLET 2 po qd x 1 day, then 1 po qd x 4 days 05/07 AZITHROMYCIN 250 MG ORAL TABLET 200476 AZITHROMYCIN Inactive Advance Directives Directive Description Start [...] % 11.6-14.8 platelet count 294 10^3/MM^3 10*3/mm3 447-948 7432/05/29 leukocyte count, blood 2.4 10^3/MM^3 10*3/mm3 4.6-10.2 [...] % 11.6-14.8 platelet count 138 10^3/MM^3 10*3/mm3 924-153 3847/06/12 leukocyte count, blood 4.3 10^3/MM^3 10*3/mm3 4.6-10.2 [...] % 11.6-14.8 platelet count 355 10^3/MM^3 10*3/mm3 764-193 0981/06/19 leukocyte count, blood 2.2 10^3/MM^3 10*3/mm3 4.6-10.2 [...] % 11.6-14.8 platelet count 109 10^3/MM^3 10*3/mm3 753-757 0791/07/06 leukocyte count, blood 5.1 10^3/MM^3 10*3/mm3 4.6-10.2 [...] Panel - Chemistry sodium, serum 137 mmol/L 807-042 5356/06/05 carbon dioxide, venous blood 26.0 mmol/L 21.0-32.0 potassium, serum 4.5 mmol/L 3.5-5.2 chloride, serum 100 mmol/L 98-107 blood glucose 100 mg/dL 65-95 urea nitrogen, blood 16 mg/dL 7-18 creatinine, serum 1.67 mg/dL 0.60-1.30 alanine aminotransferase (SGPT), serum 75 U/L 12-78 aspartate aminotransferase (SGOT), serum 46 U/L 15-37 calcium, serum 9.8 mg/dL 8.5-10.1 bilirubin, serum, total 0.40 mg/dL 0.00-1.00 sodium, serum 124 mmol/L 681-707 7046/07/06 carbon dioxide, venous blood 20.9 mmol/L 21.0-32.0 potassium, serum 4.0 mmol/L 3.5-5.2 chloride, serum 90 mmol/L 98-107 blood glucose 175 mg/dL 65-95 urea nitrogen, blood 14 mg/dL 7-18 creatinine, serum 1.21 mg/dL 0.60-1.30 alanine aminotransferase (SGPT), serum 70 U/L 12-78 aspartate aminotransferase (SGOT), serum 32 U/L 15-37 calcium, serum 8.5 mg/dL 8.5-10.1 bilirubin, serum, total 0.80 mg/dL 0.00-1.00 sodium, serum 133 mmol/L 706-196 5543/07/24 carbon dioxide, venous blood 20.6 mmol/L 21.0-32.0 potassium, serum 3.0 mmol/L 3.5-5.2 chloride, serum 100 mmol/L 98-107 blood glucose 193 mg/dL 65-95 urea nitrogen, blood 11 mg/dL 7-18 creatinine, serum 1.28 mg/dL 0.60-1.30 alanine aminotransferase (SGPT), serum 48 U/L -78 aspartate aminotransferase (SGOT), serum 22 U/L 15-37 calcium, serum 8.3 mg/dL 8.5-10.1 bilirubin, serum, total 0.50 mg/dL 0.00-1.00 sodium, serum 133 mmol/L 635-854 8902/08/01 carbon dioxide, venous blood 22.0 mmol/L 21.0-32.0 potassium, serum 3.4 mmol/L 3.5-5.2 chloride, serum 96 mmol/L 98-107 blood glucose 162 mg/dL 65-95 urea nitrogen, blood 13 mg/dL 7-18 creatinine, serum 1.16 mg/dL 0.60-1.30 alanine aminotransferase (SGPT), serum 61 U/L aspartate aminotransferase (SGOT), serum 33 U/L 15- calcium, serum 8.5 mg/dL 8.5-10.1 bilirubin, serum, total 0.70 mg/dL 0.00-1.00 sodium, serum 134 mmol/L 349-438 4334/05/15 carbon dioxide, venous blood 23.5 mmol/L 21.0-32.0 potassium, serum 4.8 mmol/L 3.5-5.2 chloride, serum 101 mmol/L 98-107 blood glucose 139 mg/dL 65-95 urea nitrogen, blood 19 mg/dL 7-18 creatinine, serum 1.79 mg/dL 0.60-1.30 alanine aminotransferase (SGPT), serum 140 U/L aspartate aminotransferase (SGOT), serum 104 U/L calcium, serum 8.5 mg/dL 8.5-10.1 bilirubin, serum, total 0.40 mg/dL 0.00-1.00 sodium, serum 135 mmol/L 396-353 1561/05/08 carbon dioxide, venous blood 29.0 mmol/L 21.0-32.0 potassium, serum 4.8 mmol/L 3.5-5.2 chloride, serum 101 mmol/L 98-107 blood glucose 165 mg/dL 65-95 urea nitrogen, blood 19 mg/dL 7-18 creatinine, serum 1.51 mg/dL 0.60-1.30 alanine aminotransferase (SGPT), serum 65 U/L aspartate aminotransferase (SGOT), serum 38 U/L calcium, serum 8.2 mg/dL 8.5-10.1 bilirubin, serum, total 0.50 mg/dL 0.00-1.00 sodium, serum 135 mmol/L 579-765 7272/04/10 carbon dioxide, venous blood 26.1 mmol/L 21.0-32.0 potassium, serum 4.2 mmol/L 3.5-5.2 chloride, serum 100 mmol/L 98-107 blood glucose 293 mg/dL 65-110 urea nitrogen, blood 18 mg/dL 7-18 creatinine, serum 2.06 mg/dL 0.60-1.30 alanine aminotransferase (SGPT), serum 59 U/L -78 aspartate aminotransferase (SGOT), serum 47 U/L 15-37 calcium, serum 8.6 mg/dL 8.5-10.1 bilirubin, serum, total 0.30 mg/dL 0.00-1.00 sodium, serum 139 mmol/L 767-753 6091/05/01 carbon dioxide, venous blood 25.2 mmol/L 21.0-32.0 [...] % 11.6-14.8 platelet count 103 10^3/MM^3 10*3/mm3 380-074 5435/05/01 leukocyte count, blood 5.0 10^3/MM^3 10*3/mm3 4.6-10.2 [...] % 11.6-14.8 platelet count 271 10^3/MM^3 10*3/mm3 843-232 2709/04/10 leukocyte count, blood 4.8 10^3/MM^3 10*3/mm3 4.6-10.2 [...] % 11.6-14.8 platelet count 200 10^3/MM^3 10*3/mm3 850-781 0189/05/15 leukocyte count, blood 1.7 10^3/MM^3 10*3/mm3 4.6-10.2 [...] % 11.6-14.8 platelet count 36 10^3/MM^3 10*3/mm3 507-425 2611/06/05 leukocyte count, blood 2.7 10^3/MM^3 10*3/mm3 4.6-10.2 [...] % 11.6-14.8 platelet count 84 10^3/MM^3 10*3/mm3 974-433 3142/08/01 leukocyte count, blood 5.1 10^3/MM^3 10*3/mm3 4.6-10.2 [...] % 11.6-14.8 platelet count 235 10^3/MM^3 10*3/mm3 650-918 3628/07/24 leukocyte count, blood 4.3 10^3/MM^3 10*3/mm3 4.6-10.2 [...] Panel - Chemistry sodium, serum 132 mmol/L 346-573 8082/06/19 carbon dioxide, venous blood 20.9 mmol/L 21.0-32.0 potassium, serum 3.9 mmol/L 3.5-5.2 chloride, serum 102 mmol/L 98-107 blood glucose 259 mg/dL 65-95 urea nitrogen, blood 16 mg/dL 7- creatinine, serum 1.46 mg/dL 0.60-1.30 alanine aminotransferase (SGPT), serum 62 U/L - aspartate aminotransferase (SGOT), serum 27 U/L 15-37 calcium, serum 7.5 mg/dL 8.5-10.1 bilirubin, serum, total 0.50 mg/dL 0.00-1.00 sodium, serum 134 mmol/L 525-339 3941/06/12 carbon dioxide, venous blood 21.9 mmol/L 21.0-32.0 potassium, serum 4.4 mmol/L 3.5-5.2 chloride, serum 97 mmol/L 98-107 blood glucose 191 mg/dL 65- urea nitrogen, blood 23 mg/dL - creatinine, serum 1.68 mg/dL 0.60-1.30 alanine aminotransferase (SGPT), serum 64 U/L aspartate aminotransferase (SGOT), serum 35 U/L - calcium, serum 8.9 mg/dL 8.5-10.1 bilirubin, serum, total 0.70 mg/dL 0.00-1.00 sodium, serum 136 mmol/L 476-355 3847/05/29 carbon dioxide, venous blood 22.4 mmol/L 21.0-32.0 potassium, serum 4.0 mmol/L 3.5-5.2 chloride, serum 104 mmol/L 98-107 blood glucose 128 mg/dL 65- urea nitrogen, blood 20 mg/dL 7- creatinine, serum 1.47 mg/dL 0.60-1.30 alanine aminotransferase (SGPT), serum 80 U/L aspartate aminotransferase (SGOT), serum 38 U/L - calcium, serum 9.1 mg/dL 8.5-10.1 bilirubin, serum, total 0.40 mg/dL 0.00-1.00 sodium, serum 134 mmol/L 482-516 3468/05/22 carbon dioxide, venous blood 25.2 mmol/L 21.0-32.0 [...] W/DIFF - Chemistry sodium, serum 137 mmol/L 899-287 8376/08/16 carbon dioxide, venous blood 26.3 mmol/L 21.0-32.0 [...] LABS - Chemistry cholesterol, serum 115 mg/dL 583-035 4610/08/18 triglyceride, serum, fasting 89 mg/dL 30-200 HDL [...] mg/dL Encounters Code Encounter Date Provider Facility CPT-76542 11514-Gpm Vst-Est Level IV 11:03:20 CDT Prosper Arenas MD [facility] CPT-76226 Level 3 Est. Patient 14:09:25 [employer] Dee Palmer APRN [facility] CPT-38732 Level 3 Est. Patient 10:53:32 [facility] [facility] Level 3 Est. Patient 17:11:55 [employer] Ismael Gracia [facility] Level 4 Est. Patient 16:29:19 CDT Mekhi Dukes MD [facility] CPT-48945 Level 3 New Patient 17:05:24 CDT Ismael Gracia MD [facility] CPT-54489 Level 2 Est. Patient 15:43:17 CDT Mekhi Dukes MD [facility] CPT-13496 Level 3 Est. Patient 09:30:[address] [facility] Level 3 Est. Patient 10:00:14 CDT Mekhi Dukes MD [facility] CPT-67432 Level 3 Est. Patient 12:24:09 CDT Moy Garcia [facility] CPT-49491 Level 3 Est. Patient 14:34:57 CDT Prosper Arenas MD [facility] CPT-91274 Level 3 New Patient 15:44:53 [employer] Mekhi Dukes MD [facility] CPT-89829 Level 3 Est. Patient 14:53:34 [employer] Prosper Arenas MD [facility] CPT-82722 Level 4 Est. Patient 10:05:41 [employer] [facility]-94475 Level 3 Est. Patient 11:18:32 CDT Moy Garcia [facility] CPT-47101 Level 4 Est. Patient 11:05:10 CDT Moy Garcia [facility] CPT-38241 Level 3 Est. Patient 11:08:27 [employer] Moy Garcia [facility] CPT-98675 Level 4 Est. Patient 10:43:59 CDT Prosper Arenas MD [facility] CPT-87878 Level 3 Est. Patient 10:51:19 CDT Moy Garcia [facility] CPT-81040 Level 3 Est. Patient 10:20:31 CDT Moy Garcia [facility] CPT-75324 Level 3 Est. Patient 17:08:45 CD[facility] CPT-53228 Level 2 Est. Patient 13:54:36 CDT Augustina Mata APRN [facility] CPT-11406 Level 3 Est. Patient 12:00:42 CDT Prosper Arenas MD [facility] CPT-92139 Level 3 Est. Patient 09:57:28 [employer] Moy Garcia [facility] CPT-03161 Level 3 Est. Patient 11:41:19 [employer] Moy Garcia [facility] CPT-43882 Level 4 Est. Patient 17:07:35 [employer] Moy Garcia [facility] CPT-03730 Level 5 Est. Patient 14:33:32 CDT Moy Rodrigokymrex [facility] CPT-30788 Level 3 Est. Patient 12:25:35 CDT Prosper Arenas MD [facility] Procedures Code Procedure Name Date Entry Date Standard Description CPT-74626 Chest, 2 views 14:17:20 [employer] CPT-52978 Postop F/U Visit 14:44:45 [employer] CPT-42198 Postop F/U Visit 17:20:20 [employer] CPT-G0439 Subsequent Annual Wellness Exam 08:39:41 [employer] CPT-000 Give Appropriate Flu Vaccine 10:13:55 [employer] CPT-000 Give Immunizations Due 10:13:55 [employer] CPT-04089 HGBA1C - LAB USE ONLY 09:42:47 [employer] CPT-19786 TPSA - LAB USE ONLY 09:42:46 [employer] CPT-86724 Venipuncture Draw Fee 09:42:46 [employer] CPT-13394 Port a cath flush 13:33:18 [employer] CPT-48946 First Vx - Ix admin for Medicare patients 10:42:57 [employer] CPT-26681 Fluzone Preservative Free Intramuscular Suspension 10:42 :57 [employer] CPT-G0438 Initial Annual Wellness Exam 10:13:55 [employer] CPT-000 Give Appropriate Flu Vaccine 10:44:04 CDT CPT-000 Give Pneumovax 10:44:03 CDT CPT-92457 Port a cath flush 17:04:43 CDT CPT-90851 Prevnar 13 11:19:17 CDT CPT-67614 Fluzone Quadrivalent preservative free (>=3yrs.) 11:19: 17 CDT CPT-54341 Immunization Each Additional Inj 11:19:17 CDT CPT-11924 Immunization Single Admin 11:19:17 CDT CPT-64548 Port a cath flush 13:28:22 CDT CPT-TCMM Transitional Care Mgmt-Moderate 13:40:15 CDT CPT-G0008 Administration of Influenza Virus Vaccine 13:59:20 CDT CPT-59875 Fluzone High-Dose Intramuscular Suspension 13:59:20 CDT CPT-27384 Venipuncture Draw Fee 09:56:19 CDT CPT-OV Office Visit 15:46:10 CDT
--- OUTSIDE RECORDS SUMMARY | 2017-12-31 15:38 | XMS REPORT | Clinical Summary ---
Author Author Admin, [facility] Organization [facility] Address Unknown Phone Unavailable Allergies, Adverse Reactions, Alerts Allergy Name Reaction Description Start Date Severity Status Provider ERYTHROMYCIN Stomach cramps Moderate Active Prosper Arenas MD CODEINE Critical Active Maliheh Ziglari ROVING FRAME TENDER DARVOCET Critical Active Maliheh Ziglari ROVING FRAME TENDER LEVAQUIN Critical Active Maliheh Ziglari ROVING FRAME TENDER Conditions or Problems Problem Name Problem Code Onset Date Status Entry Date Provider Comment Standard Description Annotate Diabetes, Type 2 250.00 Resolved 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, type II [...] with hyperglycemia 250.00 Active 03/21 Maliheh Ziglari ROVING FRAME TENDER Diabetes mellitus without mention of complication, type II or unspecified type, not stated as uncontrolled snf use of insulin treatment V58.67 Active Jose Antonioeh Rodrigoglari ROVING FRAME TENDER Long-term (current) use of insulin Diabetes mellitus, type II with hypoglycemia 250.80 Active 07/22 Maliheh Ziglari ROVING FRAME TENDER Diabetes mellitus with other specified manifestations, type II or unspecified type, not stated as uncontrolled 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 Maliheh Ziglari ROVING FRAME TENDER Diabetes mellitus with renal manifestations, type II or unspecified type, not stated as uncontrolled Wellness exam V70.0 Active Dee Palmer APRN Routine general medical examination at a health care facility Fitting and adjustment of vascular catheter V58.81 Active 02/06 Dee Palmer APRN Encounter for fitting and adjustment of vascular catheter Unawareness of hypoglycemia in diabetes mellitus, type II 250.80 Active Maliheh Rodrigoglari ROVING FRAME TENDER Diabetes mellitus with other specified manifestations, [...] specified as recurrent) Gastritis Inactive Maliheh Ziglari ROVING FRAME TENDER Unspecified gastritis and gastroduodenitis, without mention of [...] TABLET 1 daily for depression CITALOPRAM HYDROBROMIDE 60603792933 Active Prosper Arenas MD Active PREDNISONE 20 MG ORAL TABLET 2 tabs daily for 4 days, 1 tab daily for 4 days, 1/2 tab daily for 4 days PREDNISONE 13943664075 No Longer Active Prosper Arenas MD Active AZITHROMYCIN 250 MG ORAL TABLET 2 po qd x 1 day, then 1 po qd x 4 days 05/07 AZITHROMYCIN 90882912056 No Longer Active Dee Palmer APRN Active GUAIFENESIN DM 400-20 MG ORAL TABLET 1 pill by mouth twice daily, if needed for cough DEXTROMETHORPHAN-GUAIFENESIN 64453111990 Active Dee Palmer APRN Active ASPIRIN 81 MG ORAL TABLET 1 po qd ASPIRIN 27996080622 Active Dee Palmer APRN Active CALCIUM 500/D 500-200 MG-UNIT ORAL TABLET one tablet daily CALCIUM CARBONATE-VITAMIN D 82028819942 No Longer Active Dee Palmer APRN Active HYDROCODONE-ACETAMINOPHEN 7.5-325 MG ORAL TABLET 1-2 every 4-6 hrs prn 02/25 HYDROCODONE-ACETAMINOPHEN 97311711870 Active Marina King BESSY Active ASPIRIN 81 MG ORAL TABLET 1 tablet by mouth daily ASPIRIN 01119662425 No Longer Active Marina Messina APRN Active SIMVASTATIN 80 MG ORAL TABLET 1/2 tablet daily SIMVASTATIN 35389586476 No Longer Active Mekhi Dukes MD Active OMEPRAZOLE 20 MG ORAL CAPSULE DELAYED RELEASE 1 qd OMEPRAZOLE 13444240465 No Longer Active Mekhi Dukes MD Active METOPROLOL TARTRATE 25 MG ORAL TABLET 1/2 tablet twice a day METOPROLOL TARTRATE 61739176704 No Longer Active Mekhi Dukes MD Active LISINOPRIL 5 MG ORAL TABLET 1 daily LISINOPRIL 63791286423 No Longer Active Mekhi Dukes MD Active NOVOLOG FLEXPEN 100 UNIT/ML SUBCUTANEOUS SOLUTION PEN-INJECTOR Take 8 units with each meal, add 1u/50 for blood sugars above 150. INSULIN ASPART 46455801219 Active Moy PARISH Active GABAPENTIN 300 MG ORAL CAPSULE 1 tab BID GABAPENTIN 36215067646 Active Tami Miller RN Active PREDNISONE 20 MG ORAL TABLET Take 2 daily for 3 days and then 1 daily for 3 days PREDNISONE 91985509340 No Longer Active Maliheh Ziglari ROVING FRAME TENDER Active BENZONATATE 200 MG ORAL CAPSULE Take 1 tablet 3 times a day as needed for cough BENZONATATE 07228097718 No Longer Active Prosper Arenas MD Active HYDROCHLOROTHIAZIDE 25 MG ORAL TABLET 1 tablet by mouth daily HYDROCHLOROTHIAZIDE 65482128938 No Longer Active Prosper Arenas MD Active ACCU-CHEK JOANNA PLUS IN VITRO STRIP check blood sugars 5x a day, before each meal and bedtime and 15 minutes after treating a low blood. sugar GLUCOSE BLOOD 75716046263 Active Maliheh Ziglari ROVING FRAME TENDER Active LANTUS SOLOSTAR 100 UNIT/ML SUBCUTANEOUS SOLUTION PEN-INJECTOR Take 40 units at 7-8pm daily INSULIN GLARGINE 40966195538 Active Maliheh Ziglari ROVING FRAME TENDER Active MECLIZINE HCL 25 MG ORAL TABLET 1 daily needed for dizziness 2015 MECLIZINE HCL 73779633716 No Longer Active Maleh Ziglari ROVING FRAME TENDER Active BENZONATATE 200 MG ORAL CAPSULE 1 tab, 2-3 times a day BENZONATATE 75167871049 No Longer Active Maliheh Ziglari ROVING FRAME TENDER Active HALOPERIDOL 0.5 MG ORAL TABLET one tablet three times a day HALOPERIDOL 54370595127 No Longer Active Maliheh Ziglari ROVING FRAME TENDER Active TRAZODONE HCL 50 MG ORAL TABLET three tablets at bed time TRAZODONE HCL 24415331565 No Longer Active [facility] Ziglari ROVING FRAME TENDER Active REVLIMID 25 MG ORAL CAPSULE one capsule daily for 21 days then off for 7 days LENALIDOMIDE 80709420344 No Longer Active Maliheh Ziglari ROVING FRAME TENDER Active ZITHROMAX Z-EDDIE 250 MG ORAL TABLET 2 today, then 1 daily for 4 days AZITHROMYCIN 36160099731 No Longer Active Augustina Mata PAYROLL ACCOUNTING MANAGER Active NOVOLIN R RELION 100 UNIT/ML INJECTION SOLUTION 30- 40 units each meal sliding scale INSULIN REGULAR HUMAN 01516248612 No Longer Active Maliheh Ziglari ROVING FRAME TENDER Active HYDROCODONE-ACETAMINOPHEN 5-500 MG ORAL TABLET 1-2 FOUR TIMES A DAY, PRN 2010 HYDROCODONE-ACETAMINOPHEN 66119102721 No Longer Active Prosper Arenas MD Active DOXYCYCLINE HYCLATE 100 MG ORAL CAPSULE take one capsule by mouth twice daily for ten days DOXYCYCLINE HYCLATE 07726690893 No Longer Active Mekhi Dukes MD Active DOXYCYCLINE HYCLATE 100 MG ORAL CAPSULE take one capsule by mouth twice daily for ten days DOXYCYCLINE HYCLATE 100 MG ORAL CAPSULE 4900927 DOXYCYCLINE HYCLATE Inactive HYDROCODONE-ACETAMINOPHEN 5-500 MG ORAL [...] days ZITHROMAX Z-EDDIE 250 MG ORAL TABLET 801560 AZITHROMYCIN Inactive REVLIMID 25 MG ORAL CAPSULE one capsule daily for 21 days then off for 7 days REVLIMID 25 MG ORAL CAPSULE LENALIDOMIDE Inactive TRAZODONE HCL 50 MG ORAL TABLET three tablets at bed time TRAZODONE HCL 50 MG ORAL TABLET 806370 TRAZODONE HCL Inactive HALOPERIDOL 0.5 MG ORAL TABLET one tablet three times a day HALOPERIDOL 0.5 MG ORAL TABLET 380216 HALOPERIDOL Inactive BENZONATATE 200 MG ORAL CAPSULE 1 tab, 2-3 times a day BENZONATATE 200 MG ORAL CAPSULE 985814 BENZONATATE Inactive MECLIZINE HCL 25 MG ORAL TABLET 1 daily needed for dizziness 2015 MECLIZINE HCL 25 MG ORAL TABLET 220970 MECLIZINE HCL Inactive HYDROCHLOROTHIAZIDE 25 MG ORAL TABLET 1 tablet by mouth daily HYDROCHLOROTHIAZIDE 25 MG ORAL TABLET 059399 HYDROCHLOROTHIAZIDE Inactive PREDNISONE 20 MG ORAL TABLET Take 2 daily for 3 days and then 1 daily for 3 days PREDNISONE 20 MG ORAL TABLET 090766 PREDNISONE Inactive LISINOPRIL 5 MG ORAL TABLET 1 daily LISINOPRIL 5 MG ORAL TABLET 999011 LISINOPRIL Inactive METOPROLOL TARTRATE 25 MG ORAL TABLET 1/2 tablet twice a day METOPROLOL TARTRATE 25 MG ORAL TABLET 667009 METOPROLOL TARTRATE Inactive OMEPRAZOLE 20 MG ORAL CAPSULE DELAYED RELEASE 1 qd OMEPRAZOLE 20 MG ORAL CAPSULE DELAYED RELEASE 226564 OMEPRAZOLE Inactive SIMVASTATIN 80 MG ORAL TABLET 1/2 tablet daily SIMVASTATIN 80 MG ORAL TABLET 385953 SIMVASTATIN Inactive ASPIRIN 81 MG ORAL TABLET [...] 4 days PREDNISONE 20 MG ORAL TABLET 643676 PREDNISONE Inactive BENZONATATE 200 MG ORAL CAPSULE Take 1 tablet 3 times a day as needed for cough BENZONATATE 200 MG ORAL CAPSULE 455615 BENZONATATE Inactive AZITHROMYCIN 250 MG ORAL TABLET 2 po qd x 1 day, then 1 po qd x 4 days 05/07 AZITHROMYCIN 250 MG ORAL TABLET 621856 AZITHROMYCIN Inactive Advance Directives Directive Description Start [...] Measured blood pressure, diastolic 60 mm[Hg] BP cahvez blood pressure, systolic 130 mm[Hg] BP sys [...] % 11.6-14.8 platelet count 294 10^3/MM^3 10*3/mm3 165-992 7159/05/29 leukocyte count, blood 2.4 10^3/MM^3 10*3/mm3 4.6-10.2 [...] % 11.6-14.8 platelet count 138 10^3/MM^3 10*3/mm3 876-246 0204/06/12 leukocyte count, blood 4.3 10^3/MM^3 10*3/mm3 4.6-10.2 [...] % 11.6-14.8 platelet count 355 10^3/MM^3 10*3/mm3 343-952 9594/06/19 leukocyte count, blood 2.2 10^3/MM^3 10*3/mm3 4.6-10.2 [...] % 11.6-14.8 platelet count 109 10^3/MM^3 10*3/mm3 394-591 0603/07/06 leukocyte count, blood 5.1 10^3/MM^3 10*3/mm3 4.6-10.2 [...] Panel - Chemistry sodium, serum 137 mmol/L 213-739 8393/06/05 carbon dioxide, venous blood 26.0 mmol/L 21.0-32.0 potassium, serum 4.5 mmol/L 3.5-5.2 chloride, serum 100 mmol/L 98-107 blood glucose 100 mg/dL 65-95 urea nitrogen, blood 16 mg/dL 7-18 creatinine, serum 1.67 mg/dL 0.60-1.30 alanine aminotransferase (SGPT), serum 75 U/L 12-78 aspartate aminotransferase (SGOT), serum 46 U/L 15-37 calcium, serum 9.8 mg/dL 8.5-10.1 bilirubin, serum, total 0.40 mg/dL 0.00-1.00 sodium, serum 124 mmol/L 723-729 9552/07/06 carbon dioxide, venous blood 20.9 mmol/L 21.0-32.0 potassium, serum 4.0 mmol/L 3.5-5.2 chloride, serum 90 mmol/L 98-107 blood glucose 175 mg/dL 65-95 urea nitrogen, blood 14 mg/dL 7-18 creatinine, serum 1.21 mg/dL 0.60-1.30 alanine aminotransferase (SGPT), serum 70 U/L 12-78 aspartate aminotransferase (SGOT), serum 32 U/L 15-37 calcium, serum 8.5 mg/dL 8.5-10.1 bilirubin, serum, total 0.80 mg/dL 0.00-1.00 sodium, serum 133 mmol/L 975-244 1620/07/24 carbon dioxide, venous blood 20.6 mmol/L 21.0-32.0 potassium, serum 3.0 mmol/L 3.5-5.2 chloride, serum 100 mmol/L 98-107 blood glucose 193 mg/dL 65-95 urea nitrogen, blood 11 mg/dL 7-18 creatinine, serum 1.28 mg/dL 0.60-1.30 alanine aminotransferase (SGPT), serum 48 U/L -78 aspartate aminotransferase (SGOT), serum 22 U/L 15-37 calcium, serum 8.3 mg/dL 8.5-10.1 bilirubin, serum, total 0.50 mg/dL 0.00-1.00 sodium, serum 133 mmol/L 771-867 9912/08/01 carbon dioxide, venous blood 22.0 mmol/L 21.0-32.0 potassium, serum 3.4 mmol/L 3.5-5.2 chloride, serum 96 mmol/L 98-107 blood glucose 162 mg/dL 65-95 urea nitrogen, blood 13 mg/dL 7-18 creatinine, serum 1.16 mg/dL 0.60-1.30 alanine aminotransferase (SGPT), serum 61 U/L aspartate aminotransferase (SGOT), serum 33 U/L 15- calcium, serum 8.5 mg/dL 8.5-10.1 bilirubin, serum, total 0.70 mg/dL 0.00-1.00 sodium, serum 134 mmol/L 824-940 2125/05/15 carbon dioxide, venous blood 23.5 mmol/L 21.0-32.0 potassium, serum 4.8 mmol/L 3.5-5.2 chloride, serum 101 mmol/L 98-107 blood glucose 139 mg/dL 65-95 urea nitrogen, blood 19 mg/dL 7-18 creatinine, serum 1.79 mg/dL 0.60-1.30 alanine aminotransferase (SGPT), serum 140 U/L aspartate aminotransferase (SGOT), serum 104 U/L calcium, serum 8.5 mg/dL 8.5-10.1 bilirubin, serum, total 0.40 mg/dL 0.00-1.00 sodium, serum 135 mmol/L 917-894 3185/05/08 carbon dioxide, venous blood 29.0 mmol/L 21.0-32.0 potassium, serum 4.8 mmol/L 3.5-5.2 chloride, serum 101 mmol/L 98-107 blood glucose 165 mg/dL 65-95 urea nitrogen, blood 19 mg/dL 7-18 creatinine, serum 1.51 mg/dL 0.60-1.30 alanine aminotransferase (SGPT), serum 65 U/L aspartate aminotransferase (SGOT), serum 38 U/L calcium, serum 8.2 mg/dL 8.5-10.1 bilirubin, serum, total 0.50 mg/dL 0.00-1.00 sodium, serum 135 mmol/L 151-661 2396/04/10 carbon dioxide, venous blood 26.1 mmol/L 21.0-32.0 potassium, serum 4.2 mmol/L 3.5-5.2 chloride, serum 100 mmol/L 98-107 blood glucose 293 mg/dL 65-110 urea nitrogen, blood 18 mg/dL 7-18 creatinine, serum 2.06 mg/dL 0.60-1.30 alanine aminotransferase (SGPT), serum 59 U/L -78 aspartate aminotransferase (SGOT), serum 47 U/L 15-37 calcium, serum 8.6 mg/dL 8.5-10.1 bilirubin, serum, total 0.30 mg/dL 0.00-1.00 sodium, serum 139 mmol/L 746-272 2749/05/01 carbon dioxide, venous blood 25.2 mmol/L 21.0-32.0 [...] % 11.6-14.8 platelet count 103 10^3/MM^3 10*3/mm3 815-290 8241/05/01 leukocyte count, blood 5.0 10^3/MM^3 10*3/mm3 4.6-10.2 [...] % 11.6-14.8 platelet count 271 10^3/MM^3 10*3/mm3 635-535 3501/04/10 leukocyte count, blood 4.8 10^3/MM^3 10*3/mm3 4.6-10.2 [...] % 11.6-14.8 platelet count 200 10^3/MM^3 10*3/mm3 204-169 1483/05/15 leukocyte count, blood 1.7 10^3/MM^3 10*3/mm3 4.6-10.2 [...] % 11.6-14.8 platelet count 36 10^3/MM^3 10*3/mm3 041-886 9528/06/05 leukocyte count, blood 2.7 10^3/MM^3 10*3/mm3 4.6-10.2 [...] % 11.6-14.8 platelet count 84 10^3/MM^3 10*3/mm3 437-910 0590/08/01 leukocyte count, blood 5.1 10^3/MM^3 10*3/mm3 4.6-10.2 [...] % 11.6-14.8 platelet count 235 10^3/MM^3 10*3/mm3 979-764 1027/07/24 leukocyte count, blood 4.3 10^3/MM^3 10*3/mm3 4.6-10.2 [...] Panel - Chemistry sodium, serum 132 mmol/L 083-124 2020/06/19 carbon dioxide, venous blood 20.9 mmol/L 21.0-32.0 potassium, serum 3.9 mmol/L 3.5-5.2 chloride, serum 102 mmol/L 98-107 blood glucose 259 mg/dL 65-95 urea nitrogen, blood 16 mg/dL 7- creatinine, serum 1.46 mg/dL 0.60-1.30 alanine aminotransferase (SGPT), serum 62 U/L - aspartate aminotransferase (SGOT), serum 27 U/L 15-37 calcium, serum 7.5 mg/dL 8.5-10.1 bilirubin, serum, total 0.50 mg/dL 0.00-1.00 sodium, serum 134 mmol/L 538-371 1097/06/12 carbon dioxide, venous blood 21.9 mmol/L 21.0-32.0 potassium, serum 4.4 mmol/L 3.5-5.2 chloride, serum 97 mmol/L 98-107 blood glucose 191 mg/dL 65- urea nitrogen, blood 23 mg/dL - creatinine, serum 1.68 mg/dL 0.60-1.30 alanine aminotransferase (SGPT), serum 64 U/L aspartate aminotransferase (SGOT), serum 35 U/L - calcium, serum 8.9 mg/dL 8.5-10.1 bilirubin, serum, total 0.70 mg/dL 0.00-1.00 sodium, serum 136 mmol/L 888-001 1603/05/29 carbon dioxide, venous blood 22.4 mmol/L 21.0-32.0 potassium, serum 4.0 mmol/L 3.5-5.2 chloride, serum 104 mmol/L 98-107 blood glucose 128 mg/dL 65- urea nitrogen, blood 20 mg/dL 7- creatinine, serum 1.47 mg/dL 0.60-1.30 alanine aminotransferase (SGPT), serum 80 U/L aspartate aminotransferase (SGOT), serum 38 U/L - calcium, serum 9.1 mg/dL 8.5-10.1 bilirubin, serum, total 0.40 mg/dL 0.00-1.00 sodium, serum 134 mmol/L 100-227 7601/05/22 carbon dioxide, venous blood 25.2 mmol/L 21.0-32.0 [...] W/DIFF - Chemistry sodium, serum 137 mmol/L 349-075 1144/08/16 carbon dioxide, venous blood 26.3 mmol/L 21.0-32.0 [...] LABS - Chemistry cholesterol, serum 115 mg/dL 874-557 2677/08/18 triglyceride, serum, fasting 89 mg/dL 30-200 HDL [...] mg/dL Encounters Code Encounter Date Provider Facility CPT-81412 [id number] Vst-Est Level IV 11:03:20 CDT Prosper Arenas MD [facility] CPT-52165 Level 3 Est. Patient 14:09:25 ASSISTANT STORE LEADER Dee Palmer APRN [facility] CPT-76166 Level 3 Est. Patient 10:53:32 [facility]ISTANT STORE LEADER [facility] Level 3 Est. Patient 17:11:55 ASSISTANT STORE LEADER Ismael Gracia MD [facility]-89090 Level 4 Est. Patient 16:29:19 CDT Mekhi Dukes MD [facility] CPT-33149 Level 3 New Patient 17:05:24 CDT Ismael Gracia MD [facility] CPT-52609 Level 2 Est. Patient 15:43:17 CDT Mekhi Dukes MD [facility] CPT-99681 Level 3 Est. Patient 09:30:37 [facility] Level 3 Est. Patient 10:00:14 CDT Mekhi Dukes MD [facility] CPT-95255 Level 3 Est. Patient 12:24:09 CDT Moy Garcia [facility] CPT-13932 Level 3 Est. Patient 14:34:57 CDT Prosper Arenas MD [facility] CPT-28262 Level 3 New Patient 15:44:53 ASSISTANT STORE LEADER Mekhi Dukes MD [facility] CPT-64675 Level 3 Est. Patient 14:53:34 ASSISTANT STORE LEADER Prosper Arenas MD [facility] CPT-05975 Level 4 Est. Patient 10:05:41 ASSISTANT STORE LEADER [facility] Level 3 Est. Patient 11:18:32 CDT Moy Garcia [facility] CPT-89760 Level 4 Est. Patient 11:05:10 CDT Moy Garcia [facility] CPT-52942 Level 3 Est. Patient 11:08:27 ASSISTANT STORE LEADER Moy Garcia [facility] CPT-78662 Level 4 Est. Patient 10:43:59 CDT Prosper Arenas MD [facility] CPT-70671 Level 3 Est. Patient 10:51:19 CDT Moy Garcia [facility] CPT-09969 Level 3 Est. Patient 10:20:31 CDT Moy Garcia [facility] CPT-89379 Level 3 Est. Patient 17:08:45 [facility] CPT-33944 Level 2 Est. Patient 13:54:36 CDT Augustina Mata APRN [facility] CPT-12608 Level 3 Est. Patient 12:00:42 CDT Prosper Arenas MD [facility] CPT-65660 Level 3 Est. Patient 09:57:28 ASSISTANT STORE LEADER Moy Garcia [facility] CPT-14267 Level 3 Est. Patient 11:41:19 ASSISTANT STORE LEADER Moy Garcia [facility] CPT-96725 Level 4 Est. Patient 17:07:35 ASSISTANT STORE LEADER Moy Garcia [facility] CPT-12786 Level 5 Est. Patient 14:33:32 CDT Moy Rodrigokymrex [facility] CPT-96841 Level 3 Est. Patient 12:25:35 CDT Prosper Arenas MD [facility] Procedures Code Procedure Name Date Entry Date Standard Description CPT-00345 Chest, 2 views 14:17:20 ASSISTANT STORE LEADER CPT-32911 Postop F/U Visit 14:44:45 ASSISTANT STORE LEADER CPT-67811 Postop F/U Visit 17:20:20 ASSISTANT STORE LEADER CPT-G0439 Subsequent Annual Wellness Exam 08:39:41 ASSISTANT STORE LEADER CPT-000 Give Appropriate Flu Vaccine 10:13:55 ASSISTANT STORE LEADER CPT-000 Give Immunizations Due 10:13:55 ASSISTANT STORE LEADER CPT-68027 HGBA1C - LAB USE ONLY 09:42:47 ASSISTANT STORE LEADER CPT-49555 TPSA - LAB USE ONLY 09:42:46 ASSISTANT STORE LEADER CPT-17150 Venipuncture Draw Fee 09:42:46 ASSISTANT STORE LEADER CPT-89175 Port a cath flush 13:33:18 ASSISTANT STORE LEADER CPT-54589 First Vx - Ix admin for Medicare patients 10:42:57 ASSISTANT STORE LEADER CPT-81949 Fluzone Preservative Free Intramuscular Suspension 10:42 :57 ASSISTANT STORE LEADER CPT-G0438 Initial Annual Wellness Exam 10:13:55 ASSISTANT STORE LEADER CPT-000 Give Appropriate Flu Vaccine 10:44:04 CDT CPT-000 Give Pneumovax 10:44:03 CDT CPT-41628 Port a cath flush 17:04:43 CDT CPT-62906 Prevnar 13 11:19:17 CDT CPT-33311 Fluzone Quadrivalent preservative free (>=3yrs.) 11:19: 17 CDT CPT-34375 Immunization Each Additional Inj 11:19:17 CDT CPT-53079 Immunization Single Admin 11:19:17 CDT CPT-22996 Port a cath flush 13:28:22 CDT CPT-TCMM Transitional Care Mgmt-Moderate 13:40:15 CDT CPT-G0008 Administration of Influenza Virus Vaccine 13:59:20 CDT CPT-24762 Fluzone High-Dose Intramuscular Suspension 13:59:20 CDT CPT-10124 Venipuncture Draw Fee 09:56:19 CDT CPT-OV Office Visit 15:46:10 CDT
--- OUTSIDE RECORDS SUMMARY | 2017-12-31 15:39 | XMS REPORT | Clinical Summary ---
Author Author Admin, Kaylynn Organization [facility] [place] Address Unknown Phone Unavailable Allergies, Adverse Reactions, Alerts Allergy Name Reaction Description Start Date Severity Status Provider ERYTHROMYCIN Stomach cramps Moderate Active Prosper Arenas MD CODEINE Critical Active Maliheh Ziglari [facility] LICENSE[facility] DARVOCET Critical Active Maliheh Ziglari [facility] LEVAQUIN Critical Active Maliheh Ziglari [facility] LICENSE[facility] Conditions or Problems Problem Name Problem Code Onset Date Status Entry Date Provider Comment Standard Description Annotate Diabetes, Type 2 250.00 Resolved Tami Miller supervisor malted milk mellitus without mention of complication, type II [...] type II, uncontrolled 250.02 Active Maliheh Rodrigoglari [facility] LICENSEE Diabetes mellitus without mention of complication, type [...] and giddiness Preventive health care V70.0 Active Ebtsy Ronnie Routine general medical examination at a health care facility Encounter for fitting and adjustment of vascular catheter V58.81 Resolved Tami Miller RN Encounter for fitting and adjustment of vascular catheter Type 2 diabetes mellitus with hyperglycemia 250.00 Active 03/21 Maliheh Ziglari [facility] LICENSEE Diabetes mellitus without mention of complication, type II or unspecified type, not stated as uncontrolled alf use of insulin treatment V58.67 Active Luxiheh Rodrigoglari [facility] LICENSEE Long-term (current) use of insulin Diabetes mellitus, type II with hypoglycemia 250.80 Active 07/22 Maliheh Ziglari [facility] LICENSEE Diabetes mellitus with other specified manifestations, type II or unspecified type, not stated as uncontrolled 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 Maliheh Ziglari [facility] LICENSEE Diabetes mellitus with renal manifestations, type II or unspecified type, not stated as uncontrolled Wellness exam V70.0 Active Dee Palmer APRN Routine general medical examination at a health care facility Fitting and adjustment of vascular catheter V58.81 Active 02/06 Dee Palmer APRN Encounter for fitting and adjustment of vascular catheter Unawareness of hypoglycemia in diabetes mellitus, type II 250.80 Active Maliheh Rodrigoglari [facility] LICENSEE Diabetes mellitus with other specified manifestations, type [...] specified as recurrent) Gastritis Inactive Maliheh Rodrigoglrex [facility] LICENSEE Unspecified gastritis and gastroduodenitis, without mention of [...] MD Groin pain, right ICD-789.09 Inactive Mekhi Dueks MD Cough ICD-786.2 Inactive Mekhi Dukes MD Headache ICD-784.0 Inactive Mekhi Dukes MD Inguinal pain, right ICD-789.09 Inactive Mekhi Dukes MD Inguinal hernia ICD-550.90 Inactive Mekhi Dukes MD Gastritis Inactive Janis Puente LPN Medication List Medication Instructions Start Date Stop Date Generic Name NDC Status Provider Patient Instruction CITALOPRAM HYDROBROMIDE 20 MG ORAL TABLET 1 daily for depression CITALOPRAM HYDROBROMIDE 24944192146 Active Prosper Arenas MD Active PREDNISONE 20 MG ORAL TABLET 2 tabs daily for 4 days, 1 tab daily for 4 days, 1/2 tab daily for 4 days PREDNISONE 93079874069 No Longer Active Prosper Arenas MD Active AZITHROMYCIN 250 MG ORAL TABLET 2 po qd x 1 day, then 1 po qd x 4 days 05/07 AZITHROMYCIN 06079214709 No Longer Active Dee Palmer APRN Active GUAIFENESIN DM 400-20 MG ORAL TABLET 1 pill by mouth twice daily, if needed for cough DEXTROMETHORPHAN-GUAIFENESIN 21654082258 Active Dee Palmer APRN Active ASPIRIN 81 MG ORAL TABLET 1 po qd ASPIRIN 85522462815 Active Dee Palmer APRN Active CALCIUM 500/D 500-200 MG-UNIT ORAL TABLET one tablet daily CALCIUM CARBONATE-VITAMIN D 98103806903 No Longer Active Dee Palmer APRN Active HYDROCODONE-ACETAMINOPHEN 7.5-325 MG ORAL TABLET 1-2 every 4-6 hrs prn 02/25 HYDROCODONE-ACETAMINOPHEN 72800752174 Active Marina King BESSY Active ASPIRIN 81 MG ORAL TABLET 1 tablet by mouth daily ASPIRIN 18383122029 No Longer Active Marina King BESSY Active SIMVASTATIN 80 MG ORAL TABLET 1/2 tablet daily SIMVASTATIN 58283909084 No Longer Active Mekhi Dukes MD Active OMEPRAZOLE 20 MG ORAL CAPSULE DELAYED RELEASE 1 qd OMEPRAZOLE 00693483728 No Longer Active Mekhi Dukes MD Active METOPROLOL TARTRATE 25 MG ORAL TABLET 1/2 tablet twice a day METOPROLOL TARTRATE 59514852391 No Longer Active Mekhi Dukes MD Active LISINOPRIL 5 MG ORAL TABLET 1 daily LISINOPRIL 12208373151 No Longer Active Mekhi Dukes MD Active NOVOLOG FLEXPEN 100 UNIT/ML SUBCUTANEOUS SOLUTION PEN-INJECTOR Take 8 units with each meal, add 1u/50 for blood sugars above 150. INSULIN ASPART 48019876470 Active Moy PARISH Active GABAPENTIN 300 MG ORAL CAPSULE 1 tab BID GABAPENTIN 80181119604 Active Tami Miller RN Active PREDNISONE 20 MG ORAL TABLET Take 2 daily for 3 days and then 1 daily for 3 days PREDNISONE 48953961503 No Longer Active Malpapo Wallaceglrex DURANTP Active BENZONATATE 200 MG ORAL CAPSULE Take 1 tablet 3 times a day as needed for cough BENZONATATE 82241004964 No Longer Active Prosper Arenas MD Active HYDROCHLOROTHIAZIDE 25 MG ORAL TABLET 1 tablet by mouth daily HYDROCHLOROTHIAZIDE 65923218347 No Longer Active Prosper Arenas MD Active ACCU-CHEK JOANNA PLUS IN VITRO STRIP check blood sugars 5x a day, before each meal and bedtime and 15 minutes after treating a low blood. sugar GLUCOSE BLOOD 94763427990 Active Maliheh Ziglari [facility] LICENSEE Active LANTUS SOLOSTAR 100 UNIT/ML SUBCUTANEOUS SOLUTION PEN-INJECTOR Take 40 units at 7-8pm daily INSULIN GLARGINE 80389050034 Active Maliheh Ziglari [facility] LICENSEE Active MECLIZINE HCL 25 MG ORAL TABLET 1 daily needed for dizziness 2015 MECLIZINE HCL 29160765080 No Longer Active Maliheh Ziglari [facility] LICENSEE Active BENZONATATE 200 MG ORAL CAPSULE 1 tab, 2-3 times a day BENZONATATE 82539966379 No Longer Active Maliheh Ziglari [facility] LICENSEE Active HALOPERIDOL 0.5 MG ORAL TABLET one tablet three times a day HALOPERIDOL 53924726614 No Longer Active Maliheh Ziglari [facility] LICENSEE Active TRAZODONE HCL 50 MG ORAL TABLET three tablets at bed time TRAZODONE HCL 09028935252 No Longer Active Maliheh Ziglari [facility] LICENSEE Active REVLIMID 25 MG ORAL CAPSULE one capsule daily for 21 days then off for 7 days LENALIDOMIDE 43156146781 No Longer Active Maliheh Ziglari [facility] LICENSEE Active ZITHROMAX Z-EDDIE 250 MG ORAL TABLET 2 today, then 1 daily for 4 days AZITHROMYCIN 60435390992 No Longer Active Augustina Mata APRN Active NOVOLIN R RELION 100 UNIT/ML INJECTION SOLUTION 30- 40 units each meal sliding scale INSULIN REGULAR HUMAN 52892962617 No Longer Active Maliheh Ziglari [facility] LICENSEE Active HYDROCODONE-ACETAMINOPHEN 5-500 MG ORAL TABLET 1-2 FOUR TIMES A DAY, PRN 2010 HYDROCODONE-ACETAMINOPHEN 66052146860 No Longer Active Prosper Arenas MD Active DOXYCYCLINE HYCLATE 100 MG ORAL CAPSULE take one capsule by mouth twice daily for ten days DOXYCYCLINE HYCLATE 80436873408 No Longer Active Mekhi Dukes MD Active DOXYCYCLINE HYCLATE 100 MG ORAL CAPSULE take one capsule by mouth twice daily for ten days DOXYCYCLINE HYCLATE 100 MG ORAL CAPSULE 6259050 DOXYCYCLINE HYCLATE Inactive HYDROCODONE-ACETAMINOPHEN 5-500 MG ORAL [...] days ZITHROMAX Z-EDDIE 250 MG ORAL TABLET 225910 AZITHROMYCIN Inactive REVLIMID 25 MG ORAL CAPSULE one capsule daily for 21 days then off for 7 days REVLIMID 25 MG ORAL CAPSULE LENALIDOMIDE Inactive TRAZODONE HCL 50 MG ORAL TABLET three tablets at bed time TRAZODONE HCL 50 MG ORAL TABLET 862133 TRAZODONE HCL Inactive HALOPERIDOL 0.5 MG ORAL TABLET one tablet three times a day HALOPERIDOL 0.5 MG ORAL TABLET 779604 HALOPERIDOL Inactive BENZONATATE 200 MG ORAL CAPSULE 1 tab, 2-3 times a day BENZONATATE 200 MG ORAL CAPSULE 297159 BENZONATATE Inactive MECLIZINE HCL 25 MG ORAL TABLET 1 daily needed for dizziness 2015 MECLIZINE HCL 25 MG ORAL TABLET 605285 MECLIZINE HCL Inactive HYDROCHLOROTHIAZIDE 25 MG ORAL TABLET 1 tablet by mouth daily HYDROCHLOROTHIAZIDE 25 MG ORAL TABLET 504576 HYDROCHLOROTHIAZIDE Inactive PREDNISONE 20 MG ORAL TABLET Take 2 daily for 3 days and then 1 daily for 3 days PREDNISONE 20 MG ORAL TABLET 585378 PREDNISONE Inactive LISINOPRIL 5 MG ORAL TABLET 1 daily LISINOPRIL 5 MG ORAL TABLET 721859 LISINOPRIL Inactive METOPROLOL TARTRATE 25 MG ORAL TABLET 1/2 tablet twice a day METOPROLOL TARTRATE 25 MG ORAL TABLET 516893 METOPROLOL TARTRATE Inactive OMEPRAZOLE 20 MG ORAL CAPSULE DELAYED RELEASE 1 qd OMEPRAZOLE 20 MG ORAL CAPSULE DELAYED RELEASE 339810 OMEPRAZOLE Inactive SIMVASTATIN 80 MG ORAL TABLET 1/2 tablet daily SIMVASTATIN 80 MG ORAL TABLET 774834 SIMVASTATIN Inactive ASPIRIN 81 MG ORAL TABLET [...] 4 days PREDNISONE 20 MG ORAL TABLET 886848 PREDNISONE Inactive BENZONATATE 200 MG ORAL CAPSULE Take 1 tablet 3 times a day as needed for cough BENZONATATE 200 MG ORAL CAPSULE 699896 BENZONATATE Inactive AZITHROMYCIN 250 MG ORAL TABLET 2 po qd x 1 day, then 1 po qd x 4 days 05/07 AZITHROMYCIN 250 MG ORAL TABLET 775170 AZITHROMYCIN Inactive Immunizations Vaccine Administration Date Value [...] % 11.6-14.8 platelet count 294 10^3/MM^3 10*3/mm3 652-677 7117/05/29 leukocyte count, blood 2.4 10^3/MM^3 10*3/mm3 4.6-10.2 [...] % 11.6-14.8 platelet count 138 10^3/MM^3 10*3/mm3 737-827 0624/06/12 leukocyte count, blood 4.3 10^3/MM^3 10*3/mm3 4.6-10.2 [...] % 11.6-14.8 platelet count 355 10^3/MM^3 10*3/mm3 150-242 5196/06/19 leukocyte count, blood 2.2 10^3/MM^3 10*3/mm3 4.6-10.2 [...] % 11.6-14.8 platelet count 109 10^3/MM^3 10*3/mm3 033-221 4088/07/06 leukocyte count, blood 5.1 10^3/MM^3 10*3/mm3 4.6-10.2 [...] Panel - Chemistry sodium, serum 137 mmol/L 619-378 8832/06/05 carbon dioxide, venous blood 26.0 mmol/L 21.0-32.0 potassium, serum 4.5 mmol/L 3.5-5.2 chloride, serum 100 mmol/L 98-107 blood glucose 100 mg/dL 65-95 urea nitrogen, blood 16 mg/dL 7-18 creatinine, serum 1.67 mg/dL 0.60-1.30 alanine aminotransferase (SGPT), serum 75 U/L 12-78 aspartate aminotransferase (SGOT), serum 46 U/L 15-37 calcium, serum 9.8 mg/dL 8.5-10.1 bilirubin, serum, total 0.40 mg/dL 0.00-1.00 sodium, serum 124 mmol/L 981-366 6539/07/06 carbon dioxide, venous blood 20.9 mmol/L 21.0-32.0 potassium, serum 4.0 mmol/L 3.5-5.2 chloride, serum 90 mmol/L 98-107 blood glucose 175 mg/dL 65- urea nitrogen, blood 14 mg/dL 7- creatinine, serum 1.21 mg/dL 0.60-1.30 alanine aminotransferase (SGPT), serum 70 U/L aspartate aminotransferase (SGOT), serum 32 U/L 15-37 calcium, serum 8.5 mg/dL 8.5-10.1 bilirubin, serum, total 0.80 mg/dL 0.00-1.00 sodium, serum 134 mmol/L 652-726 4451/05/15 carbon dioxide, venous blood 23.5 mmol/L 21.0-32.0 potassium, serum 4.8 mmol/L 3.5-5.2 chloride, serum 101 mmol/L 98-107 blood glucose 139 mg/dL - urea nitrogen, blood 19 mg/dL - creatinine, serum 1.79 mg/dL 0.60-1.30 alanine aminotransferase (SGPT), serum 140 U/L aspartate aminotransferase (SGOT), serum 104 U/L 15- calcium, serum 8.5 mg/dL 8.5-10.1 bilirubin, serum, total 0.40 mg/dL 0.00-1.00 sodium, serum 139 mmol/L 854-813 8479/05/01 carbon dioxide, venous blood 25.2 mmol/L 21.0-32.0 potassium, serum 4.1 mmol/L 3.5-5.2 chloride, serum 104 mmol/L 98-107 blood glucose 64 mg/dL 65- urea nitrogen, blood 16 mg/dL 7- creatinine, serum 1.55 mg/dL 0.60-1.30 alanine aminotransferase (SGPT), serum 80 U/L aspartate aminotransferase (SGOT), serum 53 U/L - calcium, serum 8.1 mg/dL 8.5-10.1 bilirubin, serum, total 0.40 mg/dL 0.00-1.00 sodium, serum 135 mmol/L 111-327 1814/05/08 carbon dioxide, venous blood 29.0 mmol/L 21.0-32.0 potassium, serum 4.8 mmol/L 3.5-5.2 chloride, serum 101 mmol/L 98-107 blood glucose 165 mg/dL 65-95 urea nitrogen, blood 19 mg/dL 7-18 creatinine, serum 1.51 mg/dL 0.60-1.30 alanine aminotransferase (SGPT), serum 65 U/L aspartate aminotransferase (SGOT), serum 38 U/L calcium, serum 8.2 mg/dL 8.5-10.1 bilirubin, serum, total 0.50 mg/dL 0.00-1.00 sodium, serum 135 mmol/L 585-244 7765/04/10 carbon dioxide, venous blood 26.1 mmol/L 21.0-32.0 [...] % 11.6-14.8 platelet count 271 10^3/MM^3 10*3/mm3 841-526 7143/04/10 leukocyte count, blood 4.8 10^3/MM^3 10*3/mm3 4.6-10.2 [...] % 11.6-14.8 platelet count 200 10^3/MM^3 10*3/mm3 602-516 8115/05/15 leukocyte count, blood 1.7 10^3/MM^3 10*3/mm3 4.6-10.2 [...] % 11.6-14.8 platelet count 36 10^3/MM^3 10*3/mm3 888-984 8383/05/08 leukocyte count, blood 1.8 10^3/MM^3 10*3/mm3 4.6-10.2 [...] % 11.6-14.8 platelet count 103 10^3/MM^3 10*3/mm3 930-044 2707/06/05 leukocyte count, blood 2.7 10^3/MM^3 10*3/mm3 4.6-10.2 [...] Panel - Chemistry sodium, serum 134 mmol/L 593-226 5504/06/12 carbon dioxide, venous blood 21.9 mmol/L 21.0-32.0 potassium, serum 4.4 mmol/L 3.5-5.2 chloride, serum 97 mmol/L 98-107 blood glucose 191 mg/dL 65-95 urea nitrogen, blood 23 mg/dL 7-18 creatinine, serum 1.68 mg/dL 0.60-1.30 alanine aminotransferase (SGPT), serum 64 U/L - aspartate aminotransferase (SGOT), serum 35 U/L 15-37 calcium, serum 8.9 mg/dL 8.5-10.1 bilirubin, serum, total 0.70 mg/dL 0.00-1.00 sodium, serum 132 mmol/L 634-186 6782/06/19 carbon dioxide, venous blood 20.9 mmol/L 21.0-32.0 potassium, serum 3.9 mmol/L 3.5-5.2 chloride, serum 102 mmol/L 98-107 blood glucose 259 mg/dL 65- urea nitrogen, blood 16 mg/dL - creatinine, serum 1.46 mg/dL 0.60-1.30 alanine aminotransferase (SGPT), serum 62 U/L aspartate aminotransferase (SGOT), serum 27 U/L 15-37 calcium, serum 7.5 mg/dL 8.5-10.1 bilirubin, serum, total 0.50 mg/dL 0.00-1.00 sodium, serum 136 mmol/L 746-961 0267/05/29 carbon dioxide, venous blood 22.4 mmol/L 21.0-32.0 potassium, serum 4.0 mmol/L 3.5-5.2 chloride, serum 104 mmol/L 98-107 blood glucose 128 mg/dL 65- urea nitrogen, blood 20 mg/dL 7- creatinine, serum 1.47 mg/dL 0.60-1.30 alanine aminotransferase (SGPT), serum 80 U/L - aspartate aminotransferase (SGOT), serum 38 U/L 15-37 calcium, serum 9.1 mg/dL 8.5-10.1 bilirubin, serum, total 0.40 mg/dL 0.00-1.00 sodium, serum 134 mmol/L 676-602 9826/05/22 carbon dioxide, venous blood 25.2 mmol/L 21.0-32.0 [...] W/DIFF - Chemistry sodium, serum 137 mmol/L 087-514 1650/08/16 carbon dioxide, venous blood 26.3 mmol/L 21.0-32.0 [...] LABS - Chemistry cholesterol, serum 115 mg/dL 062-780 3347/08/18 triglyceride, serum, fasting 89 mg/dL 30-200 HDL [...] mg/dL Encounters Code Encounter Date Provider Facility CPT-83208 [id number] Vst-Est Level IV 11:03:20 CDT Prosper Arenas MD [facility] CPT-49835 Level 3 Est. Patient 14:09:25 DELIVERY DRIVER Dee Palmer APRN [facility] CPT-44671 Level 3 Est. Patient 10:53:32 DELIVERY DRIVER Moy Garcia [facility] CPT-34676 Level 3 Est. Patient 17:11:55 DELIVERY DRIVER Ismael Gracia MD [facility] CPT-04497 Level 4 Est. Patient 16:29:19 CDT Mekhi Dukes MD [facility] CPT-13498 Level 3 New Patient 17:05:24 CDT Ismael Gracia MD [facility] CPT-83316 Level 2 Est. Patient 15:43:17 CDT Mekhi Dukes MD [facility] CPT-74134 Level 3 Est. [facility] 09:30:37 [facility] Level 3 Est. Patient 10:00:14 CDT Mekhi Dukes MD [facility] CPT-09027 Level 3 Est. Patient 12:24:09 CDT Moy Garcia [facility] CPT-69461 Level 3 Est. Patient 14:34:57 CDT Prosper Arenas MD [facility] CPT-04650 Level 3 New Patient 15:44:53 DELIVERY DRIVER Mekhi Dukes MD [facility]-75428 Level 3 Est. Patient 14:53:34 DELIVERY DRIVER Prosper Arenas MD [facility] CPT-90506 Level 4 Est. Patient 10:05:41 [facility] Est. Patient 11:18:32 CDT Moy Garcia [facility] CPT-63949 Level 4 Est. Patient 11:05:10 CDT Moy Garcia [facility] CPT-82990 Level 3 Est. Patient 11:08:27 DELIVERY DRIVER Moy Garcia [facility] CPT-95582 Level 4 Est. Patient 10:43:59 CDT Prosper Arenas MD [facility] CPT-39030 Level 3 Est. Patient 10:51:19 CDT Moy Garcia [facility] CPT-14255 Level 3 Est. Patient 10:20:31 [facility]PT-01327 Level 3 Est. Patient 17:08:45 [facility] Level 2 Est. Patient 13:54:36 CDT Augustina Mata APRN [facility] CPT-29366 Level 3 Est. Patient 12:00:42 CDT Prosper Arenas MD [facility] CPT-41837 Level 3 Est. Patient 09:57:28 DELIVERY DRIVER Moy Garcia [facility] CPT-17147 Level 3 Est. Patient 11:41:19 DELIVERY DRIVER Moy Garcia [facility] CPT-57652 Level 4 Est. Patient 17:07:35 DELIVERY DRIVER Moy Garcia [facility] CPT-83702 Level 5 Est. Patient 14:33:32 [facility]T [facility] CPT-58814 Level 3 Est. Patient 12:25:35 CDT Prosper Arenas MD [facility] Procedures Code Procedure Name Date Entry Date Standard Description CPT-03807 Chest, 2 views 14:17:20 DELIVERY DRIVER CPT-09125 Postop F/U Visit 14:44:45 DELIVERY DRIVER CPT-53710 Postop F/U Visit 17:20:20 DELIVERY DRIVER CPT-G0439 Subsequent Annual Wellness Exam 08:39:41 DELIVERY DRIVER CPT-000 Give Appropriate Flu Vaccine 10:13:55 DELIVERY DRIVER CPT-000 Give Immunizations Due 10:13:55 DELIVERY DRIVER CPT-33663 HGBA1C - LAB USE ONLY 09:42:47 DELIVERY DRIVER CPT-90012 TPSA - LAB USE ONLY 09:42:46 DELIVERY DRIVER CPT-74750 Venipuncture Draw Fee 09:42:46 DELIVERY DRIVER CPT-84782 Port a cath flush 13:33:18 DELIVERY DRIVER CPT-63541 First Vx - Ix admin for Medicare patients 10:42:57 DELIVERY DRIVER CPT-43731 Fluzone Preservative Free Intramuscular Suspension 10:42 :57 DELIVERY DRIVER CPT-G0438 Initial Annual Wellness Exam 10:13:55 DELIVERY DRIVER CPT-000 Give Appropriate Flu Vaccine 10:44:04 CDT CPT-000 Give Pneumovax 10:44:03 CDT CPT-49161 Port a cath flush 17:04:43 CDT CPT-96296 Prevnar 13 11:19:17 CDT CPT-76177 Fluzone Quadrivalent preservative free (>=3yrs.) 11:19: 17 CDT CPT-69159 Immunization Each Additional Inj 11:19:17 CDT CPT-14488 Immunization Single Admin 11:19:17 CDT CPT-11161 Port a cath flush 13:28:22 CDT CPT-TCMM Transitional Care Mgmt-Moderate 13:40:15 CDT CPT-G0008 Administration of Influenza Virus Vaccine 13:59:20 CDT CPT-41374 Fluzone High-Dose Intramuscular Suspension 13:59:20 CDT CPT-39652 Venipuncture Draw Fee 09:56:19 CDT CPT-OV Office Visit 15:46:10 CDT
--- OUTSIDE RECORDS SUMMARY | 2017-12-31 15:41 | XMS REPORT | Clinical Summary ---
Author Author Admin, [facility] Organization [facility] Address Unknown Phone Unavailable Allergies, Adverse Reactions, Alerts Allergy Name Reaction Description Start Date Severity Status Provider ERYTHROMYCIN Stomach cramps Moderate Active Prosper Arenas MD CODEINE Critical Active Maliheh Ziglari RN PRACTITIONER DARVOCET Critical Active Maliheh Ziglari RN PRACTITIONER LEVAQUIN Critical Active Maliheh Ziglari RN PRACTITIONER Conditions or Problems Problem Name Problem Code Onset Date Status Entry Date Provider Comment Standard Description Annotate Diabetes, Type 2 250.00 Resolved 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, 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 [...] with hyperglycemia 250.00 Active 03/21 Maliheh Ziglari RN PRACTITIONER Diabetes mellitus without mention of complication, type II or unspecified type, not stated as uncontrolled nursing home use of insulin treatment V58.67 Active Jose Antonioeh Rodrigoglari RN PRACTITIONER Long-term (current) use of insulin Diabetes mellitus, type II with hypoglycemia 250.80 Active 07/22 Maliheh Ziglari RN PRACTITIONER Diabetes mellitus with other specified manifestations, type II or unspecified type, not stated as uncontrolled 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 Maliheh Ziglari RN PRACTITIONER Diabetes mellitus with renal manifestations, type II or unspecified type, not stated as uncontrolled Wellness exam V70.0 Active Dee Palmer APRN Routine general medical examination at a health care facility Fitting and adjustment of vascular catheter V58.81 Active 02/06 Dee Palmer APRN Encounter for fitting and adjustment of vascular catheter Unawareness of hypoglycemia in diabetes mellitus, type II 250.80 Active Maliheh Rodrigoglari RN PRACTITIONER Diabetes mellitus with other specified manifestations, type [...] specified as recurrent) Gastritis Inactive Maliheh Ziglari RN PRACTITIONER Unspecified gastritis and gastroduodenitis, without mention of [...] TABLET 1 daily for depression CITALOPRAM HYDROBROMIDE 32217097425 Active Prosper Arenas MD Active PREDNISONE 20 MG ORAL TABLET 2 tabs daily for 4 days, 1 tab daily for 4 days, 1/2 tab daily for 4 days PREDNISONE 83057605753 No Longer Active Prosper Arenas MD Active AZITHROMYCIN 250 MG ORAL TABLET 2 po qd x 1 day, then 1 po qd x 4 days 05/07 AZITHROMYCIN 91726146105 No Longer Active Dee Palmer APRN Active GUAIFENESIN DM 400-20 MG ORAL TABLET 1 pill by mouth twice daily, if needed for cough DEXTROMETHORPHAN-GUAIFENESIN 39568389222 Active Dee Palmer APRN Active ASPIRIN 81 MG ORAL TABLET 1 po qd ASPIRIN 12242439564 Active Dee Palmer APRN Active CALCIUM 500/D 500-200 MG-UNIT ORAL TABLET one tablet daily CALCIUM CARBONATE-VITAMIN D 97040891560 No Longer Active Dee Palmer APRN Active HYDROCODONE-ACETAMINOPHEN 7.5-325 MG ORAL TABLET 1-2 every 4-6 hrs prn 02/25 HYDROCODONE-ACETAMINOPHEN 22712587743 Active Marina King BESSY Active ASPIRIN 81 MG ORAL TABLET 1 tablet by mouth daily ASPIRIN 16602920217 No Longer Active Marina King BESSY Active SIMVASTATIN 80 MG ORAL TABLET 1/2 tablet daily SIMVASTATIN 62569483068 No Longer Active Mekhi Dukes MD Active OMEPRAZOLE 20 MG ORAL CAPSULE DELAYED RELEASE 1 qd OMEPRAZOLE 15569638961 No Longer Active Mekhi Dukes MD Active METOPROLOL TARTRATE 25 MG ORAL TABLET 1/2 tablet twice a day METOPROLOL TARTRATE 46593029657 No Longer Active Mekhi Dukes MD Active LISINOPRIL 5 MG ORAL TABLET 1 daily LISINOPRIL 18048374315 No Longer Active Mekhi Dukes MD Active NOVOLOG FLEXPEN 100 UNIT/ML SUBCUTANEOUS SOLUTION PEN-INJECTOR Take 8 units with each meal, add 1u/50 for blood sugars above 150. INSULIN ASPART 15337910389 Active Moy PARISH Active GABAPENTIN 300 MG ORAL CAPSULE 1 tab BID GABAPENTIN 36778172364 Active Tami Miller RN Active PREDNISONE 20 MG ORAL TABLET Take 2 daily for 3 days and then 1 daily for 3 days PREDNISONE 58585447794 No Longer Active Malpapo Wallaceglari JEM Active BENZONATATE 200 MG ORAL CAPSULE Take 1 tablet 3 times a day as needed for cough BENZONATATE 95082340876 No Longer Active Prosper Arenas MD Active HYDROCHLOROTHIAZIDE 25 MG ORAL TABLET 1 tablet by mouth daily HYDROCHLOROTHIAZIDE 20168086692 No Longer Active Prosper Arenas MD Active ACCU-CHEK JOANNA PLUS IN VITRO STRIP check blood sugars 5x a day, before each meal and bedtime and 15 minutes after treating a low blood. sugar GLUCOSE BLOOD 00061879055 Active Maliheh Ziglari RN PRACTITIONER Active LANTUS SOLOSTAR 100 UNIT/ML SUBCUTANEOUS SOLUTION PEN-INJECTOR Take 40 units at 7-8pm daily INSULIN GLARGINE 53009841655 Active Maliheh Ziglari RN PRACTITIONER Active MECLIZINE HCL 25 MG ORAL TABLET 1 daily needed for dizziness 2015 MECLIZINE HCL 14100203809 No Longer Active Maliheh Ziglari RN PRACTITIONER Active BENZONATATE 200 MG ORAL CAPSULE 1 tab, 2-3 times a day BENZONATATE 74804550648 No Longer Active Maliheh Ziglari RN PRACTITIONER Active HALOPERIDOL 0.5 MG ORAL TABLET one tablet three times a day HALOPERIDOL 42074730641 No Longer Active Maliheh Ziglari RN PRACTITIONER Active TRAZODONE HCL 50 MG ORAL TABLET three tablets at bed time TRAZODONE HCL 58814319658 No Longer Active Maliheh Ziglari RN PRACTITIONER Active REVLIMID 25 MG ORAL CAPSULE one capsule daily for 21 days then off for 7 days LENALIDOMIDE 28463043562 No Longer Active Maliheh Ziglari RN PRACTITIONER Active ZITHROMAX Z-EDDIE 250 MG ORAL TABLET 2 today, then 1 daily for 4 days AZITHROMYCIN 87454709298 No Longer Active Augustina Mata APRN Active NOVOLIN R RELION 100 UNIT/ML INJECTION SOLUTION 30- 40 units each meal sliding scale INSULIN REGULAR HUMAN 02289839327 No Longer Active Maliheh Ziglari RN PRACTITIONER Active HYDROCODONE-ACETAMINOPHEN 5-500 MG ORAL TABLET 1-2 FOUR TIMES A DAY, PRN 2010 HYDROCODONE-ACETAMINOPHEN 33311833268 No Longer Active Prosper Arenas MD Active DOXYCYCLINE HYCLATE 100 MG ORAL CAPSULE take one capsule by mouth twice daily for ten days DOXYCYCLINE HYCLATE 10348637221 No Longer Active Mekhi Dukes MD Active DOXYCYCLINE HYCLATE 100 MG ORAL CAPSULE take one capsule by mouth twice daily for ten days DOXYCYCLINE HYCLATE 100 MG ORAL CAPSULE 4256393 DOXYCYCLINE HYCLATE Inactive HYDROCODONE-ACETAMINOPHEN 5-500 MG ORAL [...] days ZITHROMAX Z-EDDIE 250 MG ORAL TABLET 741156 AZITHROMYCIN Inactive REVLIMID 25 MG ORAL CAPSULE one capsule daily for 21 days then off for 7 days REVLIMID 25 MG ORAL CAPSULE LENALIDOMIDE Inactive TRAZODONE HCL 50 MG ORAL TABLET three tablets at bed time TRAZODONE HCL 50 MG ORAL TABLET 684996 TRAZODONE HCL Inactive HALOPERIDOL 0.5 MG ORAL TABLET one tablet three times a day HALOPERIDOL 0.5 MG ORAL TABLET 730586 HALOPERIDOL Inactive BENZONATATE 200 MG ORAL CAPSULE 1 tab, 2-3 times a day BENZONATATE 200 MG ORAL CAPSULE 010052 BENZONATATE Inactive MECLIZINE HCL 25 MG ORAL TABLET 1 daily needed for dizziness 2015 MECLIZINE HCL 25 MG ORAL TABLET 764192 MECLIZINE HCL Inactive HYDROCHLOROTHIAZIDE 25 MG ORAL TABLET 1 tablet by mouth daily HYDROCHLOROTHIAZIDE 25 MG ORAL TABLET 036812 HYDROCHLOROTHIAZIDE Inactive PREDNISONE 20 MG ORAL TABLET Take 2 daily for 3 days and then 1 daily for 3 days PREDNISONE 20 MG ORAL TABLET 510092 PREDNISONE Inactive LISINOPRIL 5 MG ORAL TABLET 1 daily LISINOPRIL 5 MG ORAL TABLET 558211 LISINOPRIL Inactive METOPROLOL TARTRATE 25 MG ORAL TABLET 1/2 tablet twice a day METOPROLOL TARTRATE 25 MG ORAL TABLET 554522 METOPROLOL TARTRATE Inactive OMEPRAZOLE 20 MG ORAL CAPSULE DELAYED RELEASE 1 qd OMEPRAZOLE 20 MG ORAL CAPSULE DELAYED RELEASE 492191 OMEPRAZOLE Inactive SIMVASTATIN 80 MG ORAL TABLET 1/2 tablet daily SIMVASTATIN 80 MG ORAL TABLET 381901 SIMVASTATIN Inactive ASPIRIN 81 MG ORAL TABLET [...] 4 days PREDNISONE 20 MG ORAL TABLET 620922 PREDNISONE Inactive BENZONATATE 200 MG ORAL CAPSULE Take 1 tablet 3 times a day as needed for cough BENZONATATE 200 MG ORAL CAPSULE 971825 BENZONATATE Inactive AZITHROMYCIN 250 MG ORAL TABLET 2 po qd x 1 day, then 1 po qd x 4 days 05/07 AZITHROMYCIN 250 MG ORAL TABLET 884417 AZITHROMYCIN Inactive Immunizations Vaccine Administration Date Value [...] % 11.6-14.8 platelet count 294 10^3/MM^3 10*3/mm3 762-727 8877/05/29 leukocyte count, blood 2.4 10^3/MM^3 10*3/mm3 4.6-10.2 [...] % 11.6-14.8 platelet count 138 10^3/MM^3 10*3/mm3 028-400 0104/06/12 leukocyte count, blood 4.3 10^3/MM^3 10*3/mm3 4.6-10.2 [...] % 11.6-14.8 platelet count 355 10^3/MM^3 10*3/mm3 734-395 8427/06/19 leukocyte count, blood 2.2 10^3/MM^3 10*3/mm3 4.6-10.2 [...] % 11.6-14.8 platelet count 109 10^3/MM^3 10*3/mm3 146-804 3459/07/06 leukocyte count, blood 5.1 10^3/MM^3 10*3/mm3 4.6-10.2 [...] Comp. Metabolic Panel - Chemistry sodium, serum 124 mmol/L 582-179 0105/07/06 carbon dioxide, venous blood 20.9 mmol/L 21.0-32.0 potassium, serum 4.0 mmol/L 3.5-5.2 chloride, serum 90 mmol/L 98-107 blood glucose 175 mg/dL 65-95 urea nitrogen, blood 14 mg/dL 7-18 creatinine, serum 1.21 mg/dL 0.60-1.30 alanine aminotransferase (SGPT), serum 70 U/L 12-78 aspartate aminotransferase (SGOT), serum 32 U/L 15-37 calcium, serum 8.5 mg/dL 8.5-10.1 bilirubin, serum, total 0.80 mg/dL 0.00-1.00 sodium, serum 137 mmol/L 108-463 4848/06/05 carbon dioxide, venous blood 26.0 mmol/L 21.0-32.0 potassium, serum 4.5 mmol/L 3.5-5.2 chloride, serum 100 mmol/L 98-107 blood glucose 100 mg/dL - urea nitrogen, blood 16 mg/dL 7- creatinine, serum 1.67 mg/dL 0.60-1.30 alanine aminotransferase (SGPT), serum 75 U/L aspartate aminotransferase (SGOT), serum 46 U/L 15- calcium, serum 9.8 mg/dL 8.5-10.1 bilirubin, serum, total 0.40 mg/dL 0.00-1.00 sodium, serum 134 mmol/L 044-291 4079/05/15 carbon dioxide, venous blood 23.5 mmol/L 21.0-32.0 potassium, serum 4.8 mmol/L 3.5-5.2 chloride, serum 101 mmol/L 98-107 blood glucose 139 mg/dL urea nitrogen, blood 19 mg/dL - creatinine, serum 1.79 mg/dL 0.60-1.30 alanine aminotransferase (SGPT), serum 140 U/L aspartate aminotransferase (SGOT), serum 104 U/L - calcium, serum 8.5 mg/dL 8.5-10.1 bilirubin, serum, total 0.40 mg/dL 0.00-1.00 sodium, serum 135 mmol/L 268-195 2095/05/08 carbon dioxide, venous blood 29.0 mmol/L 21.0-32.0 potassium, serum 4.8 mmol/L 3.5-5.2 chloride, serum 101 mmol/L 98-107 blood glucose 165 mg/dL 65- urea nitrogen, blood 19 mg/dL 7- creatinine, serum 1.51 mg/dL 0.60-1.30 alanine aminotransferase (SGPT), serum 65 U/L 12- aspartate aminotransferase (SGOT), serum 38 U/L 15-37 calcium, serum 8.2 mg/dL 8.5-10.1 bilirubin, serum, total 0.50 mg/dL 0.00-1.00 sodium, serum 135 mmol/L 722-742 4601/04/10 carbon dioxide, venous blood 26.1 mmol/L 21.0-32.0 potassium, serum 4.2 mmol/L 3.5-5.2 chloride, serum 100 mmol/L 98-107 blood glucose 293 mg/dL 65-110 urea nitrogen, blood 18 mg/dL 7-18 creatinine, serum 2.06 mg/dL 0.60-1.30 alanine aminotransferase (SGPT), serum 59 U/L aspartate aminotransferase (SGOT), serum 47 U/L calcium, serum 8.6 mg/dL 8.5-10.1 bilirubin, serum, total 0.30 mg/dL 0.00-1.00 sodium, serum 139 mmol/L 773-968 9765/05/01 carbon dioxide, venous blood 25.2 mmol/L 21.0-32.0 [...] % 11.6-14.8 platelet count 103 10^3/MM^3 10*3/mm3 420-525 9382/05/01 leukocyte count, blood 5.0 10^3/MM^3 10*3/mm3 4.6-10.2 [...] % 11.6-14.8 platelet count 200 10^3/MM^3 10*3/mm3 519-730 2518/05/15 leukocyte count, blood 1.7 10^3/MM^3 10*3/mm3 4.6-10.2 [...] % 11.6-14.8 platelet count 36 10^3/MM^3 10*3/mm3 730-235 8760/05/01 mean corpuscular hemoglobin concentration, RBC 33.1 G/DL % 31.8- 35.4 red blood cell distribution width 13.9 % 11.6-14.8 platelet count 271 10^3/MM^3 10*3/mm3 285-628 3116/06/05 leukocyte count, blood 2.7 10^3/MM^3 10*3/mm3 4.6-10.2 [...] Panel - Chemistry sodium, serum 134 mmol/L 533-222 3256/06/12 carbon dioxide, venous blood 21.9 mmol/L 21.0-32.0 potassium, serum 4.4 mmol/L 3.5-5.2 chloride, serum 97 mmol/L 98-107 blood glucose 191 mg/dL 65-95 urea nitrogen, blood 23 mg/dL 7-18 creatinine, serum 1.68 mg/dL 0.60-1.30 alanine aminotransferase (SGPT), serum 64 U/L - aspartate aminotransferase (SGOT), serum 35 U/L 15-37 calcium, serum 8.9 mg/dL 8.5-10.1 bilirubin, serum, total 0.70 mg/dL 0.00-1.00 sodium, serum 132 mmol/L 562-730 7247/06/19 carbon dioxide, venous blood 20.9 mmol/L 21.0-32.0 potassium, serum 3.9 mmol/L 3.5-5.2 chloride, serum 102 mmol/L 98-107 blood glucose 259 mg/dL 65- urea nitrogen, blood 16 mg/dL 7- creatinine, serum 1.46 mg/dL 0.60-1.30 alanine aminotransferase (SGPT), serum 62 U/L aspartate aminotransferase (SGOT), serum 27 U/L 15- calcium, serum 7.5 mg/dL 8.5-10.1 bilirubin, serum, total 0.50 mg/dL 0.00-1.00 sodium, serum 136 mmol/L 052-163 5641/05/29 carbon dioxide, venous blood 22.4 mmol/L 21.0-32.0 potassium, serum 4.0 mmol/L 3.5-5.2 chloride, serum 104 mmol/L 98-107 blood glucose 128 mg/dL 65- urea nitrogen, blood 20 mg/dL 7- creatinine, serum 1.47 mg/dL 0.60-1.30 alanine aminotransferase (SGPT), serum 80 U/L - aspartate aminotransferase (SGOT), serum 38 U/L 15-37 calcium, serum 9.1 mg/dL 8.5-10.1 bilirubin, serum, total 0.40 mg/dL 0.00-1.00 sodium, serum 134 mmol/L 146-350 7196/05/22 carbon dioxide, venous blood 25.2 mmol/L 21.0-32.0 [...] W/DIFF - Chemistry sodium, serum 137 mmol/L 871-382 4405/08/16 carbon dioxide, venous blood 26.3 mmol/L 21.0-32.0 [...] LABS - Chemistry cholesterol, serum 115 mg/dL 515-870 2224/08/18 blood glucose 104 mg/dL 65-110 LDL cholesterol, [...] mg/dL Encounters Code Encounter Date Provider Facility CPT-10774 [id number] Vst-Est Level IV 11:03:20 CDT Prosper Arenas MD [facility] CPT-03299 Level 3 Est. Patient 14:09:25 B[employer] VA[employer] CUSTODIAN Dee Palmer APRN [facility] CPT-85961 Level 3 Est. Patient 10:53:32 [facility] [facility] Level 3 Est. Patient 17:11:55 B[employer] VA[employer] CUSTODIAN Ismael Gracia MD [facility] CPT-40993 Level 4 Est. Patient 16:29:19 CDT Mekhi Dukes MD [facility] CPT-66965 Level 3 New Patient 17:05:24 CDT Ismael Gracia MD [facility] CPT-78725 Level 2 Est. Patient 15:43:17 CDT Mekhi Dukes MD [facility] CPT-71459 Level 3 Est. Patient 09:30:37 [facility] CPT-38875 Level 3 Est. Patient 10:00:14 CDT Mekhi Dukes MD [facility] CPT-78255 Level 3 Est. Patient 12:24:09 CDT Moy Garcia [facility] CPT-94018 Level 3 Est. Patient 14:34:57 CDT Prosper Arenas MD [facility] CPT-21788 Level 3 New Patient 15:44:53 [employer] CUSTODIAN Mekhi Dukes MD [facility]-70366 Level 3 Est. Patient 14:53:34 B[employer] CUSTODIAN Prosper Arenas MD [facility] CPT-86595 Level 4 Est. Patient 10:05:41 [employer]OD[employer] [facility] Level 3 Est. Patient 11:18:32 CDT Moy Garcia [facility] CPT-95023 Level 4 Est. Patient 11:05:10 CDT Moy Garcia [facility] CPT-45396 Level 3 Est. Patient 11:08:27 B[employer] VA[employer] CUSTODIAN Moy Garcia [facility] CPT-11893 Level 4 Est. Patient 10:43:59 CDT Prosper Arenas MD [facility] CPT-45327 Level 3 Est. Patient 10:51:19 CDT Moy Garcia [facility] CPT-82103 Level 3 Est. Patient 10:20:31 CDT [facility] CPT-81812 Level 3 Est. Patient 17:08:45 [facility]T [facility]-99357 Level 2 Est. Patient 13:54:36 CDT Augustina Mata APRN [facility] CPT-28527 Level 3 Est. Patient 12:00:42 CDT Prosper Arenas MD [facility] CPT-99726 Level 3 Est. Patient 09:57:28 [employer]ODIAN Moy Garcia [facility] CPT-28905 Level 3 Est. Patient 11:41:19 [employer] CUSTODIAN Moy Garcia [facility] CPT-51266 Level 4 Est. Patient 17:07:35 [employer] CUSTODIAN Moy Garcia [facility] CPT-46192 Level 5 Est. Patient 14:33:32 [facility]T [facility] CPT-99815 Level 3 Est. Patient 12:25:35 CDT Prosper Arenas MD [facility] Procedures Code Procedure Name Date Entry Date Standard Description CPT-85400 Chest, 2 views 14:17:20 [employer]ODIAN CPT-52718 Postop F/U Visit 14:44:45 [employer]ODIAN CPT-88732 Postop F/U Visit 17:20:20 [employer]ODIAN CPT-G0439 Subsequent Annual Wellness Exam 08:39:41 [employer] C[employer]ODIAN CPT-000 Give Appropriate Flu Vaccine 10:13:55 [employer]ODIAN CPT-000 Give Immunizations Due 10:13:55 [employer] C[employer]ODIAN CPT-69821 HGBA1C - LAB USE ONLY 09:42:47 [employer] C[employer]ODIAN CPT-59077 TPSA - LAB USE ONLY 09:42:46 [employer]ODIAN CPT-37607 Venipuncture Draw Fee 09:42:46 B[employer] C[employer]ODIAN CPT-50732 Port a cath flush 13:33:18 [employer] C[employer]ODIAN CPT-10370 First Vx - Ix admin for Medicare patients 10:42:57 [employer] CUSTODIAN CPT-53082 Fluzone Preservative Free Intramuscular Suspension 10:42 :57 [employer]ODIAN CPT-G0438 Initial Annual Wellness Exam 10:13:55 [employer] C[employer]ODIAN CPT-000 Give Appropriate Flu Vaccine 10:44:04 CDT CPT-000 Give Pneumovax 10:44:03 CDT CPT-05716 Port a cath flush 17:04:43 CDT CPT-68488 Prevnar 13 11:19:17 CDT CPT-39808 Fluzone Quadrivalent preservative free (>=3yrs.) 11:19: 17 CDT CPT-73994 Immunization Each Additional Inj 11:19:17 CDT CPT-79896 Immunization Single Admin 11:19:17 CDT CPT-34202 Port a cath flush 13:28:22 CDT CPT-TCMM Transitional Care Mgmt-Moderate 13:40:15 CDT CPT-G0008 Administration of Influenza Virus Vaccine 13:59:20 CDT CPT-83871 Fluzone High-Dose Intramuscular Suspension 13:59:20 CDT CPT-12050 Venipuncture Draw Fee 09:56:19 CDT CPT-OV Office Visit 15:46:10 CDT
--- OUTSIDE RECORDS SUMMARY | 2017-12-31 15:42 | XMS REPORT | Clinical Summary ---
Author Author Admin, [facility] Organization [facility] Address Unknown Phone Unavailable Allergies, Adverse Reactions, Alerts Allergy Name Reaction Description Start Date Severity Status Provider ERYTHROMYCIN Stomach cramps Moderate Active Prosper Arenas MD CODEINE Critical Active Maliheh Ziglari SKILLED LABOR DARVOCET Critical Active Maliheh Ziglari SKILLED LABOR LEVAQUIN Critical Active Maliheh Ziglari SKILLED LABOR Conditions or Problems Problem Name Problem Code Onset Date Status Entry Date Provider Comment Standard Description Annotate Diabetes, Type 2 250.00 Resolved 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 Miller 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 front end 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 mellitus without mention of complication, type [...] with hyperglycemia 250.00 Active 03/21 Maliheh Ziglari SKILLED LABOR Diabetes mellitus without mention of complication, type II or unspecified type, not stated as uncontrolled [facility] use of insulin treatment V58.67 Active Jose Antonioeh Rodrigoglari SKILLED LABOR Long-term (current) use of insulin Diabetes mellitus, type II with hypoglycemia 250.80 Active 07/22 Maliheh Ziglari SKILLED LABOR Diabetes mellitus with other specified manifestations, type II or unspecified type, not stated as uncontrolled 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 Maliheh Ziglari SKILLED LABOR Diabetes mellitus with renal manifestations, type II or unspecified type, not stated as uncontrolled Wellness exam V70.0 Active Dee Palmer APRN Routine general medical examination at a health care facility Fitting and adjustment of vascular catheter V58.81 Active 02/06 Dee Palmer APRN Encounter for fitting and adjustment of vascular catheter Unawareness of hypoglycemia in diabetes mellitus, type II 250.80 Active Maliheh Rodrigoglari SKILLED LABOR Diabetes mellitus with other specified manifestations, type [...] specified as recurrent) Gastritis Inactive Maliheh Ziglari SKILLED LABOR Unspecified gastritis and gastroduodenitis, without mention of [...] Inactive Mekhi Dukes MD Gastritis Inactive Janis Punete LPN Medication List Medication Instructions Start Date Stop Date Generic Name NDC Status Provider Patient Instruction CITALOPRAM HYDROBROMIDE 20 MG ORAL TABLET 1 daily for depression CITALOPRAM HYDROBROMIDE 13909511809 Active Prosper Arenas MD Active PREDNISONE 20 MG ORAL TABLET 2 tabs daily for 4 days, 1 tab daily for 4 days, 1/2 tab daily for 4 days PREDNISONE 85185447086 No Longer Active Prosper Arenas MD Active AZITHROMYCIN 250 MG ORAL TABLET 2 po qd x 1 day, then 1 po qd x 4 days 05/07 AZITHROMYCIN 49045240055 No Longer Active Dee Palmer APRN Active GUAIFENESIN DM 400-20 MG ORAL TABLET 1 pill by mouth twice daily, if needed for cough DEXTROMETHORPHAN-GUAIFENESIN 82035855193 Active Dee Palmer APRN Active ASPIRIN 81 MG ORAL TABLET 1 po qd ASPIRIN 09233516218 Active Dee Palmer APRN Active CALCIUM 500/D 500-200 MG-UNIT ORAL TABLET one tablet daily CALCIUM CARBONATE-VITAMIN D 17900641014 No Longer Active Dee Palmer APRN Active HYDROCODONE-ACETAMINOPHEN 7.5-325 MG ORAL TABLET 1-2 every 4-6 hrs prn 02/25 HYDROCODONE-ACETAMINOPHEN 90550476470 Active Marina King BESSY Active ASPIRIN 81 MG ORAL TABLET 1 tablet by mouth daily ASPIRIN 47325824313 No Longer Active Marina King BESSY Active SIMVASTATIN 80 MG ORAL TABLET 1/2 tablet daily SIMVASTATIN 98447419900 No Longer Active Mekhi Dukes MD Active OMEPRAZOLE 20 MG ORAL CAPSULE DELAYED RELEASE 1 qd OMEPRAZOLE 87348881901 No Longer Active Mekhi Dukes MD Active METOPROLOL TARTRATE 25 MG ORAL TABLET 1/2 tablet twice a day METOPROLOL TARTRATE 95223800923 No Longer Active Mekhi Dukes MD Active LISINOPRIL 5 MG ORAL TABLET 1 daily LISINOPRIL 08295877535 No Longer Active Mekhi Dukes MD Active NOVOLOG FLEXPEN 100 UNIT/ML SUBCUTANEOUS SOLUTION PEN-INJECTOR Take 8 units with each meal, add 1u/50 for blood sugars above 150. INSULIN ASPART 82201785036 Active Moy PARISH Active GABAPENTIN 300 MG ORAL CAPSULE 1 tab BID GABAPENTIN 34496299958 Active Tami Miller RN Active PREDNISONE 20 MG ORAL TABLET Take 2 daily for 3 days and then 1 daily for 3 days PREDNISONE 29914558198 No Longer Active Malpapo Wallaceglari JEM Active BENZONATATE 200 MG ORAL CAPSULE Take 1 tablet 3 times a day as needed for cough BENZONATATE 07117875142 No Longer Active Prosper Arenas MD Active HYDROCHLOROTHIAZIDE 25 MG ORAL TABLET 1 tablet by mouth daily HYDROCHLOROTHIAZIDE 49078253506 No Longer Active Prosper Arenas MD Active ACCU-CHEK JOANNA PLUS IN VITRO STRIP check blood sugars 5x a day, before each meal and bedtime and 15 minutes after treating a low blood. sugar GLUCOSE BLOOD 02790563652 Active Maliheh Ziglari SKILLED LABOR Active LANTUS SOLOSTAR 100 UNIT/ML SUBCUTANEOUS SOLUTION PEN-INJECTOR Take 40 units at 7-8pm daily INSULIN GLARGINE 21777436413 Active Maliheh Ziglari SKILLED LABOR Active MECLIZINE HCL 25 MG ORAL TABLET 1 daily needed for dizziness 2015 MECLIZINE HCL 92286239282 No Longer Active Maliheh Ziglari SKILLED LABOR Active BENZONATATE 200 MG ORAL CAPSULE 1 tab, 2-3 times a day BENZONATATE 91819549174 No Longer Active Maliheh Ziglari SKILLED LABOR Active HALOPERIDOL 0.5 MG ORAL TABLET one tablet three times a day HALOPERIDOL 82145067157 No Longer Active Maliheh Ziglari SKILLED LABOR Active TRAZODONE HCL 50 MG ORAL TABLET three tablets at bed time TRAZODONE HCL 54846788882 No Longer Active Maliheh Ziglari SKILLED LABOR Active REVLIMID 25 MG ORAL CAPSULE one capsule daily for 21 days then off for 7 days LENALIDOMIDE 20781577882 No Longer Active Maliheh Ziglari SKILLED LABOR Active ZITHROMAX Z-EDDIE 250 MG ORAL TABLET 2 today, then 1 daily for 4 days AZITHROMYCIN 96676919577 No Longer Active Augustina Mata APRN Active NOVOLIN R RELION 100 UNIT/ML INJECTION SOLUTION 30- 40 units each meal sliding scale INSULIN REGULAR HUMAN 68726544993 No Longer Active Maliheh Ziglari SKILLED LABOR Active HYDROCODONE-ACETAMINOPHEN 5-500 MG ORAL TABLET 1-2 FOUR TIMES A DAY, PRN 2010 HYDROCODONE-ACETAMINOPHEN 00791036943 No Longer Active Prosper Arenas MD Active DOXYCYCLINE HYCLATE 100 MG ORAL CAPSULE take one capsule by mouth twice daily for ten days DOXYCYCLINE HYCLATE 72607857194 No Longer Active Mekhi Dukes MD Active DOXYCYCLINE HYCLATE 100 MG ORAL CAPSULE take one capsule by mouth twice daily for ten days DOXYCYCLINE HYCLATE 100 MG ORAL CAPSULE 0862882 DOXYCYCLINE HYCLATE Inactive HYDROCODONE-ACETAMINOPHEN 5-500 MG ORAL [...] days ZITHROMAX Z-EDDIE 250 MG ORAL TABLET 795504 AZITHROMYCIN Inactive REVLIMID 25 MG ORAL CAPSULE one capsule daily for 21 days then off for 7 days REVLIMID 25 MG ORAL CAPSULE LENALIDOMIDE Inactive TRAZODONE HCL 50 MG ORAL TABLET three tablets at bed time TRAZODONE HCL 50 MG ORAL TABLET 937947 TRAZODONE HCL Inactive HALOPERIDOL 0.5 MG ORAL TABLET one tablet three times a day HALOPERIDOL 0.5 MG ORAL TABLET 155750 HALOPERIDOL Inactive BENZONATATE 200 MG ORAL CAPSULE 1 tab, 2-3 times a day BENZONATATE 200 MG ORAL CAPSULE 855043 BENZONATATE Inactive MECLIZINE HCL 25 MG ORAL TABLET 1 daily needed for dizziness 2015 MECLIZINE HCL 25 MG ORAL TABLET 489593 MECLIZINE HCL Inactive HYDROCHLOROTHIAZIDE 25 MG ORAL TABLET 1 tablet by mouth daily HYDROCHLOROTHIAZIDE 25 MG ORAL TABLET 291248 HYDROCHLOROTHIAZIDE Inactive PREDNISONE 20 MG ORAL TABLET Take 2 daily for 3 days and then 1 daily for 3 days PREDNISONE 20 MG ORAL TABLET 765487 PREDNISONE Inactive LISINOPRIL 5 MG ORAL TABLET 1 daily LISINOPRIL 5 MG ORAL TABLET 490959 LISINOPRIL Inactive METOPROLOL TARTRATE 25 MG ORAL TABLET 1/2 tablet twice a day METOPROLOL TARTRATE 25 MG ORAL TABLET 516250 METOPROLOL TARTRATE Inactive OMEPRAZOLE 20 MG ORAL CAPSULE DELAYED RELEASE 1 qd OMEPRAZOLE 20 MG ORAL CAPSULE DELAYED RELEASE 589825 OMEPRAZOLE Inactive SIMVASTATIN 80 MG ORAL TABLET 1/2 tablet daily SIMVASTATIN 80 MG ORAL TABLET 853084 SIMVASTATIN Inactive ASPIRIN 81 MG ORAL TABLET [...] 4 days PREDNISONE 20 MG ORAL TABLET 378448 PREDNISONE Inactive BENZONATATE 200 MG ORAL CAPSULE Take 1 tablet 3 times a day as needed for cough BENZONATATE 200 MG ORAL CAPSULE 769731 BENZONATATE Inactive AZITHROMYCIN 250 MG ORAL TABLET 2 po qd x 1 day, then 1 po qd x 4 days 05/07 AZITHROMYCIN 250 MG ORAL TABLET 157754 AZITHROMYCIN Inactive Immunizations Vaccine Administration Date Value [...] % 11.6-14.8 platelet count 294 10^3/MM^3 10*3/mm3 377-358 8283/05/29 leukocyte count, blood 2.4 10^3/MM^3 10*3/mm3 4.6-10.2 [...] % 11.6-14.8 platelet count 138 10^3/MM^3 10*3/mm3 897-846 1281/06/12 leukocyte count, blood 4.3 10^3/MM^3 10*3/mm3 4.6-10.2 [...] % 11.6-14.8 platelet count 355 10^3/MM^3 10*3/mm3 793-651 1022/06/19 leukocyte count, blood 2.2 10^3/MM^3 10*3/mm3 4.6-10.2 [...] % 11.6-14.8 platelet count 109 10^3/MM^3 10*3/mm3 133-730 2669/07/06 leukocyte count, blood 5.1 10^3/MM^3 10*3/mm3 4.6-10.2 [...] Panel - Chemistry sodium, serum 124 mmol/L 192-675 6013/07/06 carbon dioxide, venous blood 20.9 mmol/L 21.0-32.0 potassium, serum 4.0 mmol/L 3.5-5.2 chloride, serum 90 mmol/L 98-107 blood glucose 175 mg/dL 65-95 urea nitrogen, blood 14 mg/dL 7-18 creatinine, serum 1.21 mg/dL 0.60-1.30 alanine aminotransferase (SGPT), serum 70 U/L 12-78 aspartate aminotransferase (SGOT), serum 32 U/L 15-37 calcium, serum 8.5 mg/dL 8.5-10.1 bilirubin, serum, total 0.80 mg/dL 0.00-1.00 sodium, serum 137 mmol/L 751-459 5945/06/05 carbon dioxide, venous blood 26.0 mmol/L 21.0-32.0 potassium, serum 4.5 mmol/L 3.5-5.2 chloride, serum 100 mmol/L 98-107 blood glucose 100 mg/dL - urea nitrogen, blood 16 mg/dL 7- creatinine, serum 1.67 mg/dL 0.60-1.30 alanine aminotransferase (SGPT), serum 75 U/L aspartate aminotransferase (SGOT), serum 46 U/L 15- calcium, serum 9.8 mg/dL 8.5-10.1 bilirubin, serum, total 0.40 mg/dL 0.00-1.00 sodium, serum 135 mmol/L 399-892 9072/05/08 carbon dioxide, venous blood 29.0 mmol/L 21.0-32.0 potassium, serum 4.8 mmol/L 3.5-5.2 chloride, serum 101 mmol/L 98-107 blood glucose 165 mg/dL urea nitrogen, blood 19 mg/dL - creatinine, serum 1.51 mg/dL 0.60-1.30 alanine aminotransferase (SGPT), serum 65 U/L aspartate aminotransferase (SGOT), serum 38 U/L - calcium, serum 8.2 mg/dL 8.5-10.1 bilirubin, serum, total 0.50 mg/dL 0.00-1.00 sodium, serum 134 mmol/L 161-014 0925/05/15 carbon dioxide, venous blood 23.5 mmol/L 21.0-32.0 potassium, serum 4.8 mmol/L 3.5-5.2 chloride, serum 101 mmol/L 98-107 blood glucose 139 mg/dL 65- urea nitrogen, blood 19 mg/dL 7- creatinine, serum 1.79 mg/dL 0.60-1.30 alanine aminotransferase (SGPT), serum 140 U/L aspartate aminotransferase (SGOT), serum 104 U/L 15- calcium, serum 8.5 mg/dL 8.5-10.1 bilirubin, serum, total 0.40 mg/dL 0.00-1.00 sodium, serum 135 mmol/L 751-014 7474/04/10 carbon dioxide, venous blood 26.1 mmol/L 21.0-32.0 potassium, serum 4.2 mmol/L 3.5-5.2 chloride, serum 100 mmol/L 98-107 blood glucose 293 mg/dL 65-110 urea nitrogen, blood 18 mg/dL 7-18 creatinine, serum 2.06 mg/dL 0.60-1.30 alanine aminotransferase (SGPT), serum 59 U/L aspartate aminotransferase (SGOT), serum 47 U/L calcium, serum 8.6 mg/dL 8.5-10.1 bilirubin, serum, total 0.30 mg/dL 0.00-1.00 sodium, serum 139 mmol/L 688-016 4215/05/01 carbon dioxide, venous blood 25.2 mmol/L 21.0-32.0 [...] % 11.6-14.8 platelet count 103 10^3/MM^3 10*3/mm3 539-665 8373/05/01 leukocyte count, blood 5.0 10^3/MM^3 10*3/mm3 4.6-10.2 [...] % 11.6-14.8 platelet count 271 10^3/MM^3 10*3/mm3 666-557 4893/04/10 leukocyte count, blood 4.8 10^3/MM^3 10*3/mm3 4.6-10.2 [...] % 11.6-14.8 platelet count 200 10^3/MM^3 10*3/mm3 423-366 4779/05/15 leukocyte count, blood 1.7 10^3/MM^3 10*3/mm3 4.6-10.2 [...] % 11.6-14.8 platelet count 36 10^3/MM^3 10*3/mm3 732-263 1505/06/05 leukocyte count, blood 2.7 10^3/MM^3 10*3/mm3 4.6-10.2 [...] Panel - Chemistry sodium, serum 134 mmol/L 451-990 1134/06/12 carbon dioxide, venous blood 21.9 mmol/L 21.0-32.0 potassium, serum 4.4 mmol/L 3.5-5.2 chloride, serum 97 mmol/L 98-107 blood glucose 191 mg/dL 65-95 urea nitrogen, blood 23 mg/dL 7-18 creatinine, serum 1.68 mg/dL 0.60-1.30 alanine aminotransferase (SGPT), serum 64 U/L - aspartate aminotransferase (SGOT), serum 35 U/L 15-37 calcium, serum 8.9 mg/dL 8.5-10.1 bilirubin, serum, total 0.70 mg/dL 0.00-1.00 sodium, serum 132 mmol/L 568-467 7048/06/19 carbon dioxide, venous blood 20.9 mmol/L 21.0-32.0 potassium, serum 3.9 mmol/L 3.5-5.2 chloride, serum 102 mmol/L 98-107 blood glucose 259 mg/dL 65- urea nitrogen, blood 16 mg/dL 7- creatinine, serum 1.46 mg/dL 0.60-1.30 alanine aminotransferase (SGPT), serum 62 U/L aspartate aminotransferase (SGOT), serum 27 U/L 15- calcium, serum 7.5 mg/dL 8.5-10.1 bilirubin, serum, total 0.50 mg/dL 0.00-1.00 sodium, serum 136 mmol/L 529-612 3175/05/29 carbon dioxide, venous blood 22.4 mmol/L 21.0-32.0 potassium, serum 4.0 mmol/L 3.5-5.2 chloride, serum 104 mmol/L 98-107 blood glucose 128 mg/dL 65- urea nitrogen, blood 20 mg/dL 7- creatinine, serum 1.47 mg/dL 0.60-1.30 alanine aminotransferase (SGPT), serum 80 U/L - aspartate aminotransferase (SGOT), serum 38 U/L 15-37 calcium, serum 9.1 mg/dL 8.5-10.1 bilirubin, serum, total 0.40 mg/dL 0.00-1.00 sodium, serum 134 mmol/L 200-455 7120/05/22 carbon dioxide, venous blood 25.2 mmol/L 21.0-32.0 [...] 26.3 mmol/L 21.0-32.0 sodium, serum 137 mmol/L 229-189 7014/08/16 urea nitrogen, blood 23 mg/dL 7-18 creatinine, [...] LABS - Chemistry cholesterol, serum 115 mg/dL 716-316 5922/08/18 triglyceride, serum, fasting 89 mg/dL 30-200 HDL [...] mg/dL Encounters Code Encounter Date Provider Facility CPT-73638 [id number] Vst-Est Level IV 11:03:20 CDT Prosper Arenas MD [facility] CPT-31879 Level 3 Est. Patient 14:09:25 TRAVEL WRITER Dee Palmer APRN [facility] CPT-16373 Level 3 Est. Patient 10:53:32 [facility] Level 3 Est. Patient 17:11:55 TRAVEL WRITER Ismael Gracia MD [facility] CPT-37028 Level 4 Est. Patient 16:29:19 CDT Mekhi Dukes MD [facility] CPT-42094 Level 3 New Patient 17:05:24 CDT Ismael Gracia MD [facility] CPT-14446 Level 2 Est. Patient 15:43:17 CDT Mekhi Dukes MD [facility] CPT-71683 Level 3 Est. Patient 09:30:37 CDT [facility] CPT-20434 Level 3 Est. Patient 10:00:14 CDT Mekhi Dukes MD [facility] CPT-53658 Level 3 Est. Patient 12:24:09 CDT Moy Garcia [facility] CPT-69467 Level 3 Est. Patient 14:34:57 CDT Prosper Arenas MD [facility] CPT-13055 Level 3 New Patient 15:44:53 TRAVEL WRITER Mekhi Dukes MD [facility] CPT-54007 Level 3 Est. Patient 14:53:34 TRAVEL WRITER Prosper Arenas MD [facility] CPT-59907 Level 4 Est. Patient 10:05:41 [facility]EL [facility] Level 3 Est. Patient 11:18:32 CDT Moy Garcia [facility] CPT-24641 Level 4 Est. Patient 11:05:10 CDT Moy Garcia [facility] CPT-00867 Level 3 Est. Patient 11:08:27 TRAVEL WRITER Moy Garcia [facility] CPT-50942 Level 4 Est. Patient 10:43:59 CDT Prosper Arenas MD [facility] CPT-69925 Level 3 Est. Patient 10:51:19 CDT Moy Garcia [facility] CPT-54183 Level 3 Est. Patient 10:20:31 CDT [facility] CPT-31712 Level 3 Est. Patient 17:08:45 [facility] Level 2 Est. Patient 13:54:36 CDT Augustina Mata APRN [facility] CPT-35407 Level 3 Est. Patient 12:00:42 CDT Prosper Arenas MD [facility] CPT-67218 Level 3 Est. Patient 09:57:28 TRAVEL WRITER Moy Garcia [facility] CPT-10162 Level 3 Est. Patient 11:41:19 TRAVEL WRITER Moy Garcia [facility] CPT-23658 Level 4 Est. Patient 17:07:35 TRAVEL WRITER Moy Garcia [facility] CPT-47798 Level 5 Est. Patient 14:33:32 CDT [facility] CPT-81377 Level 3 Est. Patient 12:25:35 CDT Prosper Arenas MD [facility] Procedures Code Procedure Name Date Entry Date Standard Description CPT-42915 Chest, 2 views 14:17:20 TRAVEL WRITER CPT-98760 Postop F/U Visit 14:44:45 TRAVEL WRITER CPT-85676 Postop F/U Visit 17:20:20 TRAVEL WRITER CPT-G0439 Subsequent Annual Wellness Exam 08:39:41 TRAVEL WRITER CPT-000 Give Appropriate Flu Vaccine 10:13:55 TRAVEL WRITER CPT-000 Give Immunizations Due 10:13:55 TRAVEL WRITER CPT-70059 HGBA1C - LAB USE ONLY 09:42:47 TRAVEL WRITER CPT-00949 TPSA - LAB USE ONLY 09:42:46 TRAVEL WRITER CPT-30765 Venipuncture Draw Fee 09:42:46 TRAVEL WRITER CPT-45506 Port a cath flush 13:33:18 TRAVEL WRITER CPT-79397 First Vx - Ix admin for Medicare patients 10:42:57 TRAVEL WRITER CPT-21856 Fluzone Preservative Free Intramuscular Suspension 10:42 :57 TRAVEL WRITER CPT-G0438 Initial Annual Wellness Exam 10:13:55 TRAVEL WRITER CPT-000 Give Appropriate Flu Vaccine 10:44:04 CDT CPT-000 Give Pneumovax 10:44:03 CDT CPT-02596 Port a cath flush 17:04:43 CDT CPT-74028 Prevnar 13 11:19:17 CDT CPT-11080 Fluzone Quadrivalent preservative free (>=3yrs.) 11:19: 17 CDT CPT-30120 Immunization Each Additional Inj 11:19:17 CDT CPT-75031 Immunization Single Admin 11:19:17 CDT CPT-73347 Port a cath flush 13:28:22 CDT CPT-TCMM Transitional Care Mgmt-Moderate 13:40:15 CDT CPT-G0008 Administration of Influenza Virus Vaccine 13:59:20 CDT CPT-12092 Fluzone High-Dose Intramuscular Suspension 13:59:20 CDT CPT-07135 Venipuncture Draw Fee 09:56:19 CDT CPT-OV Office Visit 15:46:10 CDT
--- OUTSIDE RECORDS SUMMARY | 2017-12-31 15:46 | XMS REPORT | Clinical Summary ---
Author Author Admin, Kaylynn Organization [facility] Address Unknown Phone Unavailable Allergies, Adverse Reactions, Alerts Allergy Name Reaction Description Start Date Severity Status Provider ERYTHROMYCIN Stomach cramps Moderate Active Prosper Arenas MD CODEINE Critical Active Maliheh Ziglari CLOTHES SHAKER DARVOCET Critical Active Maliheh Ziglari CLOTHES SHAKER LEVAQUIN Critical Active Maliheh Ziglari CLOTHES SHAKER Conditions or Problems Problem Name Problem Code Onset Date Status Entry Date Provider Comment Standard Description Annotate Diabetes, Type 2 250.00 Resolved 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 mellitus without mention of complication, type II [...] type II, uncontrolled 250.02 Active Maliheh Rodrigoglari CLOTHES SHAKER Diabetes mellitus without mention of complication, type [...] with hyperglycemia 250.00 Active 03/21 Maliheh Ziglari CLOTHES SHAKER Diabetes mellitus without mention of complication, type II or unspecified type, not stated as uncontrolled penitentiary use of insulin treatment V58.67 Active Luxiheh Rodrigoglari CLOTHES SHAKER Long-term (current) use of insulin Diabetes mellitus, type II with hypoglycemia 250.80 Active 07/22 Maliheh Ziglari CLOTHES SHAKER Diabetes mellitus with other specified manifestations, type II or unspecified type, not stated as uncontrolled 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 Maliheh Ziglari CLOTHES SHAKER Diabetes mellitus with renal manifestations, type II or unspecified type, not stated as uncontrolled Wellness exam V70.0 Active Dee Palmer APRN Routine general medical examination at a health care facility Fitting and adjustment of vascular catheter V58.81 Active 02/06 Dee Palmer APRN Encounter for fitting and adjustment of vascular catheter Unawareness of hypoglycemia in diabetes mellitus, type II 250.80 Active Maliheh Rodrigoglari CLOTHES SHAKER Diabetes mellitus with other specified manifestations, type [...] specified as recurrent) Gastritis Inactive Maliheh Rodrigoglrex CLOTHES SHAKER Unspecified gastritis and gastroduodenitis, without mention of [...] TABLET 1 daily for depression CITALOPRAM HYDROBROMIDE 04609505126 Active Prosper Arenas MD Active PREDNISONE 20 MG ORAL TABLET 2 tabs daily for 4 days, 1 tab daily for 4 days, 1/2 tab daily for 4 days PREDNISONE 50079690930 No Longer Active Prosper Arenas MD Active AZITHROMYCIN 250 MG ORAL TABLET 2 po qd x 1 day, then 1 po qd x 4 days 05/07 AZITHROMYCIN 59648274114 No Longer Active Dee Palmer APRN Active GUAIFENESIN DM 400-20 MG ORAL TABLET 1 pill by mouth twice daily, if needed for cough DEXTROMETHORPHAN-GUAIFENESIN 29902789466 Active Dee Palmer APRN Active ASPIRIN 81 MG ORAL TABLET 1 po qd ASPIRIN 78537614385 Active Dee Palmer APRN Active CALCIUM 500/D 500-200 MG-UNIT ORAL TABLET one tablet daily CALCIUM CARBONATE-VITAMIN D 47385150830 No Longer Active Dee Palmer APRN Active HYDROCODONE-ACETAMINOPHEN 7.5-325 MG ORAL TABLET 1-2 every 4-6 hrs prn 02/25 HYDROCODONE-ACETAMINOPHEN 04184493687 Active Marina King BESSY Active ASPIRIN 81 MG ORAL TABLET 1 tablet by mouth daily ASPIRIN 21998286799 No Longer Active Marina King BESSY Active SIMVASTATIN 80 MG ORAL TABLET 1/2 tablet daily SIMVASTATIN 01414271458 No Longer Active Mekhi Dukes MD Active OMEPRAZOLE 20 MG ORAL CAPSULE DELAYED RELEASE 1 qd OMEPRAZOLE 64036403064 No Longer Active Mekhi Dukes MD Active METOPROLOL TARTRATE 25 MG ORAL TABLET 1/2 tablet twice a day METOPROLOL TARTRATE 60711337745 No Longer Active Mkehi Dukes MD Active LISINOPRIL 5 MG ORAL TABLET 1 daily LISINOPRIL 83394538914 No Longer Active Mekhi Dukes MD Active NOVOLOG FLEXPEN 100 UNIT/ML SUBCUTANEOUS SOLUTION PEN-INJECTOR Take 8 units with each meal, add 1u/50 for blood sugars above 150. INSULIN ASPART 50275940667 Active Moy PARISH Active GABAPENTIN 300 MG ORAL CAPSULE 1 tab BID GABAPENTIN 44015679472 Active Tami Miller RN Active PREDNISONE 20 MG ORAL TABLET Take 2 daily for 3 days and then 1 daily for 3 days PREDNISONE 76543561725 No Longer Active Malpapo Wallaceglrex DURANTP Active BENZONATATE 200 MG ORAL CAPSULE Take 1 tablet 3 times a day as needed for cough BENZONATATE 09810321786 No Longer Active Prosper Arenas MD Active HYDROCHLOROTHIAZIDE 25 MG ORAL TABLET 1 tablet by mouth daily HYDROCHLOROTHIAZIDE 16454866621 No Longer Active Prosper Arenas MD Active ACCU-CHEK JOANNA PLUS IN VITRO STRIP check blood sugars 5x a day, before each meal and bedtime and 15 minutes after treating a low blood. sugar GLUCOSE BLOOD 69503006482 Active Maliheh Ziglari CLOTHES SHAKER Active LANTUS SOLOSTAR 100 UNIT/ML SUBCUTANEOUS SOLUTION PEN-INJECTOR Take 40 units at 7-8pm daily INSULIN GLARGINE 34797270415 Active Maliheh Ziglari CLOTHES SHAKER Active MECLIZINE HCL 25 MG ORAL TABLET 1 daily needed for dizziness 2015 MECLIZINE HCL 83322970320 No Longer Active Maliheh Ziglari CLOTHES SHAKER Active BENZONATATE 200 MG ORAL CAPSULE 1 tab, 2-3 times a day BENZONATATE 25442968248 No Longer Active Maliheh Ziglari CLOTHES SHAKER Active HALOPERIDOL 0.5 MG ORAL TABLET one tablet three times a day HALOPERIDOL 85563861158 No Longer Active Maliheh Ziglari CLOTHES SHAKER Active TRAZODONE HCL 50 MG ORAL TABLET three tablets at bed time TRAZODONE HCL 58961165844 No Longer Active Maliheh Ziglari CLOTHES SHAKER Active REVLIMID 25 MG ORAL CAPSULE one capsule daily for 21 days then off for 7 days LENALIDOMIDE 86121422694 No Longer Active Maliheh Ziglari CLOTHES SHAKER Active ZITHROMAX Z-EDDIE 250 MG ORAL TABLET 2 today, then 1 daily for 4 days AZITHROMYCIN 39181089429 No Longer Active Augustina Mata APRN Active NOVOLIN R RELION 100 UNIT/ML INJECTION SOLUTION 30- 40 units each meal sliding scale INSULIN REGULAR HUMAN 80223055042 No Longer Active Maliheh Ziglari CLOTHES SHAKER Active HYDROCODONE-ACETAMINOPHEN 5-500 MG ORAL TABLET 1-2 FOUR TIMES A DAY, PRN 2010 HYDROCODONE-ACETAMINOPHEN 74942080496 No Longer Active Prosper Arenas MD Active DOXYCYCLINE HYCLATE 100 MG ORAL CAPSULE take one capsule by mouth twice daily for ten days DOXYCYCLINE HYCLATE 71495181333 No Longer Active Mekhi Dukes MD Active DOXYCYCLINE HYCLATE 100 MG ORAL CAPSULE take one capsule by mouth twice daily for ten days DOXYCYCLINE HYCLATE 100 MG ORAL CAPSULE 6800275 DOXYCYCLINE HYCLATE Inactive HYDROCODONE-ACETAMINOPHEN 5-500 MG ORAL [...] days ZITHROMAX Z-EDDIE 250 MG ORAL TABLET 142896 AZITHROMYCIN Inactive REVLIMID 25 MG ORAL CAPSULE one capsule daily for 21 days then off for 7 days REVLIMID 25 MG ORAL CAPSULE LENALIDOMIDE Inactive TRAZODONE HCL 50 MG ORAL TABLET three tablets at bed time TRAZODONE HCL 50 MG ORAL TABLET 397910 TRAZODONE HCL Inactive HALOPERIDOL 0.5 MG ORAL TABLET one tablet three times a day HALOPERIDOL 0.5 MG ORAL TABLET 435803 HALOPERIDOL Inactive BENZONATATE 200 MG ORAL CAPSULE 1 tab, 2-3 times a day BENZONATATE 200 MG ORAL CAPSULE 245789 BENZONATATE Inactive MECLIZINE HCL 25 MG ORAL TABLET 1 daily needed for dizziness 2015 MECLIZINE HCL 25 MG ORAL TABLET 527886 MECLIZINE HCL Inactive HYDROCHLOROTHIAZIDE 25 MG ORAL TABLET 1 tablet by mouth daily HYDROCHLOROTHIAZIDE 25 MG ORAL TABLET 676916 HYDROCHLOROTHIAZIDE Inactive PREDNISONE 20 MG ORAL TABLET Take 2 daily for 3 days and then 1 daily for 3 days PREDNISONE 20 MG ORAL TABLET 757616 PREDNISONE Inactive LISINOPRIL 5 MG ORAL TABLET 1 daily LISINOPRIL 5 MG ORAL TABLET 305461 LISINOPRIL Inactive METOPROLOL TARTRATE 25 MG ORAL TABLET 1/2 tablet twice a day METOPROLOL TARTRATE 25 MG ORAL TABLET 653887 METOPROLOL TARTRATE Inactive OMEPRAZOLE 20 MG ORAL CAPSULE DELAYED RELEASE 1 qd OMEPRAZOLE 20 MG ORAL CAPSULE DELAYED RELEASE 920122 OMEPRAZOLE Inactive SIMVASTATIN 80 MG ORAL TABLET 1/2 tablet daily SIMVASTATIN 80 MG ORAL TABLET 615571 SIMVASTATIN Inactive ASPIRIN 81 MG ORAL TABLET [...] 4 days PREDNISONE 20 MG ORAL TABLET 983243 PREDNISONE Inactive BENZONATATE 200 MG ORAL CAPSULE Take 1 tablet 3 times a day as needed for cough BENZONATATE 200 MG ORAL CAPSULE 643461 BENZONATATE Inactive AZITHROMYCIN 250 MG ORAL TABLET 2 po qd x 1 day, then 1 po qd x 4 days 05/07 AZITHROMYCIN 250 MG ORAL TABLET 807733 AZITHROMYCIN Inactive Immunizations Vaccine Administration Date Value [...] % 11.6-14.8 platelet count 294 10^3/MM^3 10*3/mm3 737-400 3284/05/29 leukocyte count, blood 2.4 10^3/MM^3 10*3/mm3 4.6-10.2 [...] % 11.6-14.8 platelet count 138 10^3/MM^3 10*3/mm3 774-827 5791/06/12 leukocyte count, blood 4.3 10^3/MM^3 10*3/mm3 4.6-10.2 [...] % 11.6-14.8 platelet count 355 10^3/MM^3 10*3/mm3 669-803 2334/06/19 leukocyte count, blood 2.2 10^3/MM^3 10*3/mm3 4.6-10.2 [...] % 11.6-14.8 platelet count 109 10^3/MM^3 10*3/mm3 931-257 9184/07/06 leukocyte count, blood 5.1 10^3/MM^3 10*3/mm3 4.6-10.2 [...] Panel - Chemistry sodium, serum 137 mmol/L 125-588 2827/06/05 carbon dioxide, venous blood 26.0 mmol/L 21.0-32.0 potassium, serum 4.5 mmol/L 3.5-5.2 chloride, serum 100 mmol/L 98-107 blood glucose 100 mg/dL 65-95 urea nitrogen, blood 16 mg/dL 7-18 creatinine, serum 1.67 mg/dL 0.60-1.30 alanine aminotransferase (SGPT), serum 75 U/L 12-78 aspartate aminotransferase (SGOT), serum 46 U/L 15-37 calcium, serum 9.8 mg/dL 8.5-10.1 bilirubin, serum, total 0.40 mg/dL 0.00-1.00 sodium, serum 124 mmol/L 974-343 0809/07/06 carbon dioxide, venous blood 20.9 mmol/L 21.0-32.0 potassium, serum 4.0 mmol/L 3.5-5.2 chloride, serum 90 mmol/L 98-107 blood glucose 175 mg/dL 65- urea nitrogen, blood 14 mg/dL 7- creatinine, serum 1.21 mg/dL 0.60-1.30 alanine aminotransferase (SGPT), serum 70 U/L aspartate aminotransferase (SGOT), serum 32 U/L 15-37 calcium, serum 8.5 mg/dL 8.5-10.1 bilirubin, serum, total 0.80 mg/dL 0.00-1.00 sodium, serum 134 mmol/L 594-168 7503/05/15 carbon dioxide, venous blood 23.5 mmol/L 21.0-32.0 potassium, serum 4.8 mmol/L 3.5-5.2 chloride, serum 101 mmol/L 98-107 blood glucose 139 mg/dL - urea nitrogen, blood 19 mg/dL - creatinine, serum 1.79 mg/dL 0.60-1.30 alanine aminotransferase (SGPT), serum 140 U/L aspartate aminotransferase (SGOT), serum 104 U/L 15- calcium, serum 8.5 mg/dL 8.5-10.1 bilirubin, serum, total 0.40 mg/dL 0.00-1.00 sodium, serum 139 mmol/L 773-384 3814/05/01 carbon dioxide, venous blood 25.2 mmol/L 21.0-32.0 potassium, serum 4.1 mmol/L 3.5-5.2 chloride, serum 104 mmol/L 98-107 blood glucose 64 mg/dL 65- urea nitrogen, blood 16 mg/dL 7- creatinine, serum 1.55 mg/dL 0.60-1.30 alanine aminotransferase (SGPT), serum 80 U/L aspartate aminotransferase (SGOT), serum 53 U/L - calcium, serum 8.1 mg/dL 8.5-10.1 bilirubin, serum, total 0.40 mg/dL 0.00-1.00 sodium, serum 135 mmol/L 748-696 6422/05/08 carbon dioxide, venous blood 29.0 mmol/L 21.0-32.0 potassium, serum 4.8 mmol/L 3.5-5.2 chloride, serum 101 mmol/L 98-107 blood glucose 165 mg/dL 65-95 urea nitrogen, blood 19 mg/dL 7-18 creatinine, serum 1.51 mg/dL 0.60-1.30 alanine aminotransferase (SGPT), serum 65 U/L aspartate aminotransferase (SGOT), serum 38 U/L calcium, serum 8.2 mg/dL 8.5-10.1 bilirubin, serum, total 0.50 mg/dL 0.00-1.00 sodium, serum 135 mmol/L 523-217 9724/04/10 carbon dioxide, venous blood 26.1 mmol/L 21.0-32.0 [...] % 11.6-14.8 platelet count 271 10^3/MM^3 10*3/mm3 534-087 3927/04/10 leukocyte count, blood 4.8 10^3/MM^3 10*3/mm3 4.6-10.2 [...] % 11.6-14.8 platelet count 200 10^3/MM^3 10*3/mm3 112-763 5818/05/15 leukocyte count, blood 1.7 10^3/MM^3 10*3/mm3 4.6-10.2 [...] % 11.6-14.8 platelet count 36 10^3/MM^3 10*3/mm3 093-144 3841/05/08 leukocyte count, blood 1.8 10^3/MM^3 10*3/mm3 4.6-10.2 [...] % 11.6-14.8 platelet count 103 10^3/MM^3 10*3/mm3 419-283 7622/06/05 leukocyte count, blood 2.7 10^3/MM^3 10*3/mm3 4.6-10.2 [...] Panel - Chemistry sodium, serum 134 mmol/L 713-521 4876/06/12 carbon dioxide, venous blood 21.9 mmol/L 21.0-32.0 potassium, serum 4.4 mmol/L 3.5-5.2 chloride, serum 97 mmol/L 98-107 blood glucose 191 mg/dL 65-95 urea nitrogen, blood 23 mg/dL 7-18 creatinine, serum 1.68 mg/dL 0.60-1.30 alanine aminotransferase (SGPT), serum 64 U/L - aspartate aminotransferase (SGOT), serum 35 U/L 15-37 calcium, serum 8.9 mg/dL 8.5-10.1 bilirubin, serum, total 0.70 mg/dL 0.00-1.00 sodium, serum 132 mmol/L 769-268 5179/06/19 carbon dioxide, venous blood 20.9 mmol/L 21.0-32.0 potassium, serum 3.9 mmol/L 3.5-5.2 chloride, serum 102 mmol/L 98-107 blood glucose 259 mg/dL 65- urea nitrogen, blood 16 mg/dL - creatinine, serum 1.46 mg/dL 0.60-1.30 alanine aminotransferase (SGPT), serum 62 U/L aspartate aminotransferase (SGOT), serum 27 U/L 15-37 calcium, serum 7.5 mg/dL 8.5-10.1 bilirubin, serum, total 0.50 mg/dL 0.00-1.00 sodium, serum 136 mmol/L 714-439 1097/05/29 carbon dioxide, venous blood 22.4 mmol/L 21.0-32.0 potassium, serum 4.0 mmol/L 3.5-5.2 chloride, serum 104 mmol/L 98-107 blood glucose 128 mg/dL 65- urea nitrogen, blood 20 mg/dL 7- creatinine, serum 1.47 mg/dL 0.60-1.30 alanine aminotransferase (SGPT), serum 80 U/L - aspartate aminotransferase (SGOT), serum 38 U/L 15-37 calcium, serum 9.1 mg/dL 8.5-10.1 bilirubin, serum, total 0.40 mg/dL 0.00-1.00 sodium, serum 134 mmol/L 292-557 6325/05/22 carbon dioxide, venous blood 25.2 mmol/L 21.0-32.0 [...] W/DIFF - Chemistry sodium, serum 137 mmol/L 685-534 2432/08/16 carbon dioxide, venous blood 26.3 mmol/L 21.0-32.0 [...] LABS - Chemistry cholesterol, serum 115 mg/dL 843-152 9925/08/18 triglyceride, serum, fasting 89 mg/dL 30-200 HDL [...] mg/dL Encounters Code Encounter Date Provider Facility CPT-34133 [id number] Vst-Est Level IV 11:03:20 CDT Prosper Arenas MD [facility] CPT-17207 Level 3 Est. Patient 14:09:25 SENIOR PRINCIPAL PROCESS ENGINEER Dee Palmer APRN [facility] CPT-54234 Level 3 Est. Patient 10:53:32 SENIOR PRINCIPAL PROCESS ENGINEER Moy Garcia [facility] CPT-84574 Level 3 Est. Patient 17:11:55 SENIOR PRINCIPAL PROCESS ENGINEER Ismael Gracia MD [facility] CPT-87141 Level 4 Est. Patient 16:29:19 CDT Mekhi Dukes MD [facility] CPT-23708 Level 3 New Patient 17:05:24 CDT Ismael Garcia MD [facility] CPT-21343 Level 2 Est. Patient 15:43:17 CDT Mekhi Dukes MD [facility] CPT-25862 Level 3 Est. [facility]30[facility] Level 3 Est. Patient 10:00:14 CDT Mekhi Dukes MD [facility] CPT-50844 Level 3 Est. Patient 12:24:09 CDT Moy Garcia [facility] CPT-91549 Level 3 Est. Patient 14:34:57 CDT Prosper Arenas MD [facility] CPT-19238 Level 3 New Patient 15:44:53 SENIOR PRINCIPAL PROCESS ENGINEER Mekhi Dukes MD [facility]-70095 Level 3 Est. Patient 14:53:34 SENIOR PRINCIPAL PROCESS ENGINEER Prosper Arenas MD [facility] CPT-58706 Level 4 Est. Patient 10:05:41 SENIOR PRINCIPAL PROCESS ENGINEER [facility] Level 3 Est. Patient 11:18:32 CDT Moy Garcia [facility] CPT-13654 Level 4 Est. Patient 11:05:10 CDT Moy Garcia [facility] CPT-43631 Level 3 Est. Patient 11:08:27 SENIOR PRINCIPAL PROCESS ENGINEER Moy Garcia [facility] CPT-96961 Level 4 Est. Patient 10:43:59 CDT Prosper Arenas MD [facility] CPT-32294 Level 3 Est. Patient 10:51:19 CDT Moy Garcia [facility] CPT-03327 Level 3 Est. Patient 10:20:31 [facility] CPT-15487 Level 3 Est. Patient 17:08:45 [facility] Level 2 Est. Patient 13:54:36 CDT Augustina Mata APRN [facility] CPT-69255 Level 3 Est. Patient 12:00:42 CDT Prosper Arenas MD [facility] CPT-11744 Level 3 Est. Patient 09:57:28 SENIOR PRINCIPAL PROCESS ENGINEER Moy Garcia [facility] CPT-93917 Level 3 Est. Patient 11:41:19 SENIOR PRINCIPAL PROCESS ENGINEER Moy Garcia [facility] CPT-76516 Level 4 Est. Patient 17:07:35 SENIOR PRINCIPAL PROCESS ENGINEER Moy Garcia [facility] CPT-74896 Level 5 Est. Patient 14:33:32 CDT [facility] CPT-69638 Level 3 Est. Patient 12:25:35 CDT Prosper Arenas MD [facility] Procedures Code Procedure Name Date Entry Date Standard Description CPT-14691 Chest, 2 views 14:17:20 SENIOR PRINCIPAL PROCESS ENGINEER CPT-78010 Postop F/U Visit 14:44:45 SENIOR PRINCIPAL PROCESS ENGINEER CPT-45137 Postop F/U Visit 17:20:20 SENIOR PRINCIPAL PROCESS ENGINEER CPT-G0439 Subsequent Annual Wellness Exam 08:39:41 SENIOR PRINCIPAL PROCESS ENGINEER CPT-000 Give Appropriate Flu Vaccine 10:13:55 SENIOR PRINCIPAL PROCESS ENGINEER CPT-000 Give Immunizations Due 10:13:55 SENIOR PRINCIPAL PROCESS ENGINEER CPT-85040 HGBA1C - LAB USE ONLY 09:42:47 SENIOR PRINCIPAL PROCESS ENGINEER CPT-80111 TPSA - LAB USE ONLY 09:42:46 SENIOR PRINCIPAL PROCESS ENGINEER CPT-36735 Venipuncture Draw Fee 09:42:46 SENIOR PRINCIPAL PROCESS ENGINEER CPT-46447 Port a cath flush 13:33:18 SENIOR PRINCIPAL PROCESS ENGINEER CPT-05412 First Vx - Ix admin for Medicare patients 10:42:57 SENIOR PRINCIPAL PROCESS ENGINEER CPT-63086 Fluzone Preservative Free Intramuscular Suspension 10:42 :57 SENIOR PRINCIPAL PROCESS ENGINEER CPT-G0438 Initial Annual Wellness Exam 10:13:55 SENIOR PRINCIPAL PROCESS ENGINEER CPT-000 Give Appropriate Flu Vaccine 10:44:04 CDT CPT-000 Give Pneumovax 10:44:03 CDT CPT-82811 Port a cath flush 17:04:43 CDT CPT-12047 Prevnar 13 11:19:17 CDT CPT-27978 Fluzone Quadrivalent preservative free (>=3yrs.) 11:19: 17 CDT CPT-10447 Immunization Each Additional Inj 11:19:17 CDT CPT-04577 Immunization Single Admin 11:19:17 CDT CPT-00975 Port a cath flush 13:28:22 CDT CPT-TCMM Transitional Care Mgmt-Moderate 13:40:15 CDT CPT-G0008 Administration of Influenza Virus Vaccine 13:59:20 CDT CPT-32576 Fluzone High-Dose Intramuscular Suspension 13:59:20 CDT CPT-02967 Venipuncture Draw Fee 09:56:19 CDT CPT-OV Office Visit 15:46:10 CDT
[2017-12-31 15:55] LABS: BASOPHILS % (AUTO) 0 % (0-10); EOSINOPHILS % (AUTO) 0 % (0-10); HEMATOCRIT 36 % (40-54); HEMOGLOBIN 13.4 G/DL (13.3-17.7); LYMPHOCYTES # (AUTO) 0.6 X 10^3 (1.0-4.0); LYMPHOCYTES % (AUTO) 12 % (12-44); MEAN CORPUSCULAR HEMOGLOBIN 33 PG (25-34); MEAN CORPUSCULAR HGB CONC 37 G/DL (32-36); MEAN CORPUSCULAR VOLUME 87 FL (80-99); MEAN PLATELET VOLUME 10.6 FL (7.4-10.4); MONOCYTES # (AUTO) 0.7 X 10^3 (0.0-1.0); MONOCYTES % (AUTO) 15 % (0-12); NEUTROPHILS # (AUTO) 3.4 X 10^3 (1.8-7.8); NEUTROPHILS % (AUTO) 73 % (42-75); PLATELET COUNT 151 10^3/uL (130-400); RED BLOOD COUNT 4.12 10^6/uL (4.35-5.85); RED CELL DISTRIBUTION WIDTH 13.1 % (10.0-14.5); WHITE BLOOD COUNT 4.7 10^3/uL (4.3-11.0)
--- NOTE | 2017-12-31 16:11 | ED General ---
General Chief Complaint: Abdominal/GI Problems Stated Complaint: POSS DEHYDRATION/WEAKNESS Nursing Triage Note: TO ROOM WITH FEMALE PATIENT REPORTS THAT HAD CHEMO ON THURSDAY TODAY WEAK AND HAVING DIARRHEA. Nursing Sepsis Screen: No Definite Risk Source of Information: Patient, Old Records Exam Limitations: No Limitations History of Present Illness Date Seen by Provider: Dec 31, 2017 Time Seen by Provider: 16:09 Initial Comments The patient is a 67-year-old black male with a history of multiple myeloma going back to approximately 2003. After a 14 year remission was found to have recurrence earlier this year. He had a visit to this ER in July with very similar symptoms. He states since the recurrence of myeloma he took 2 months of chemotherapy which made him very ill. He subsequently was off for 2 months and has now taken the third week of his first return to chemotherapy. He states that his appetite is quite good. 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 He has had no vomiting but has had diarrhea over the last day or 2. 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 Timing/Duration: 2-3 Days Allergies and Home Medications Allergies Coded Allergies: codeine (Unverified Allergy, Unknown, 08/25/17) levofloxacin (Unverified Allergy, Unknown, 08/25/17) niacin (Unverified Allergy, Unknown, 08/25/17) Uncoded Allergies: DARVOCET (Allergy, Unknown, 08/25/17) ERYTHROMYCIN (Allergy, Unknown, 08/25/17) Home Medications Acyclovir 400 Mg Tablet, 400 MG PO BID, (Reported) Calcium Carbonate/Vitamin D3 1 Each Tablet, 1 TAB PO BID, (Reported) Diphenoxylate HCl/Atropine 1 Each Tablet, 1 EACH PO Q4H PRN for diarrhea Prescribed by: MAURI REYES on 10/04/17 1138 Gabapentin 300 Mg Capsule, 300 MG PO TID, (Reported) Hydrocodone/Acetaminophen 1 Each Tablet, 1 TAB PO TID PRN for PAIN-MODERATE Prescribed by: PHIL DEL CID on 10/07/17 0848 Insulin Aspart 300 Units/3 Ml Solution, 6-7 UNITS SQ AC, (Reported) Insulin Glargine,Hum.rec.anlog 100 Unit/1 Ml Vial, 35 UNIT SQ HS, (Reported) L.acidoph & Paracasei,B.lactis 1 Each Capsule, 1 CAP PO AC, (Reported) Megestrol Acetate 20 Mg Tablet, 40 MG PO DAILY, (Reported) Omeprazole 20 Mg Capsule.dr, 20 MG PO DAILY, (Reported) Ondansetron HCl 8 Mg Tablet, 8 MG PO Q8H PRN for NAUSEA/VOMITING-1ST LINE, ( Reported) Patient Home Medication List Home Medication List Reviewed: Yes Review of Systems Review of Systems Constitutional: see HPI EENTM: no symptoms reported Cardiovascular: no symptoms reported Gastrointestinal: diarrhea, loss of appetite, nausea Genitourinary: no symptoms reported Musculoskeletal: no symptoms reported Skin: no symptoms reported Psychiatric/Neurological: No Symptoms Reported, Other (orthostatic symptoms and near syncope) Hematologic/Lymphatic: See HPI Immunological/Allergic: no symptoms reported Past Bpqonmc-Aducoi-Mldqzr Hx Patient Social History Alcohol Use: Denies Use Number of Drinks Today: BB Alcohol Beverage of Choice: [place] Recreational Drug Use: No Drug of Choice: + IV OPIATE USE--QUIT 1983 Smoking Status: Former Smoker Type Used: Cigarettes Former Smoker, Quit: Jan 08, 1973 2nd Hand Smoke Exposure: No Recent Foreign Travel: No Contact w/Someone Who Travel: No Recent Infectious Disease Expo: No Recent Hopitalizations: Yes (09/2017) Immunizations Up To Date Tetanus Booster (TDap): Unknown PED Vaccines UTD: Yes Date of Pneumonia Vaccine: Jan 09, 2015 Seasonal Allergies Seasonal Allergies: No Past Medical History Surgeries: Yes (SEE CHART FROM 08/25/17) Abdominal, Cardiac, Coronary Stent, Orthopedic Respiratory: Yes (MULTIPLE EPISODES OF PNEUMONIA; RIGHT PNEUMOTHORAX FROM TRAUMA 1992) Pneumonia Currently Using CPAP: No Currently Using BIPAP: No Cardiac: Yes (LA X 3--CARDIAC CATHS-STENT X 1) Coronary Artery Disease, Heart Attack, High Cholesterol, Hypotension Neurological: Yes (MULTIPLE MYELOMA) Sexually Transmitted Disease: No HIV/AIDS: No Genitourinary: No Gastrointestinal: Yes Abdominal Hernia, Gastroesophageal Reflux, Hepatitis Musculoskeletal: Yes Fractures Endocrine: Yes Diabetes, Insulin dep HEENT: Yes (WISDOM TEETH REMOVAL; WEARS GLASSES) Cataract Loss of Vision: Denies Hearing Impairment: Denies Cancer: Yes (MULTIPLE MYELOMA--DIAGNOSED AROUND 2003, 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) Did You Recieve Any Treatments: Yes What Type of Treatment Did You: Chemotherapy Psychosocial: No Integumentary: No Blood Disorders: Yes (PANCYTOPENIA ON CHEMO) Adverse Reaction/Blood Tranf: No Family Medical History Cancer Physical Exam Vital Signs Vital Signs - First Documented 12/31/17 15:18 Temp 99.0 Pulse 111 Resp 18 B/P (MAP) 100/77 (85) Pulse Ox 100 O2 Delivery Room Air Capillary Refill : Less Than 3 Seconds Height, Weight, BMI Height: 5'5.00" Weight: 120lbs. 2.0oz. [id number]; 25.0 BMI Method:Stated General Appearance: Mild Distress Eyes: Bilateral Eye Normal Inspection HEENT: Normal ENT Inspection Neck: Full Range of Motion, Normal Inspection, Non Tender, Supple, Carotid Bruit Respiratory: Chest Non Tender, Lungs Clear, Normal Breath Sounds, No Accessory Muscle Use, No Respiratory Distress Cardiovascular: Regular Rate, Rhythm, No Edema, No Gallop, No JVD, No Murmur, Normal Peripheral Pulses Gastrointestinal: Other (belly skin hangs loosely from weight loss. Bowel sounds are hypoactive. There is no tenderness to palpation.) Back: Normal Inspection Extremity: Normal Capillary Refill, Normal Inspection, Normal Range of Motion, Non Tender, No Calf Tenderness, No Pedal Edema Neurologic/Psychiatric: Alert, Oriented x3, No Motor/Sensory Deficits, Normal Mood/Affect Skin: Normal Color, Warm/Dry Lymphatic: No Adenopathy Progress/Results/Core Measures Suspected Sepsis Recent Fever Within 48 Hours: No Infection Criteria Present: None New/Unexplained Altered Menta: No Sepsis Screen: No Definite Risk SIRS Temperature:99.0 Pulse: 111 Respiratory Rate: 18 Laboratory Tests 12/31/17 15:49: White Blood Count 4.7 Blood Pressure 100 /77 Mean: 85 Laboratory Tests 12/31/17 15:49: Creatinine 0.99, Platelet Count 151, Total Bilirubin 0.5 Results/Orders Lab Results Laboratory Tests Test 12/31/17 15:49 Range/Units White Blood Count 4.7 4.3-11.0 10^3/uL Red Blood Count 4.12 L 4.35-5.85 10^6/uL Hemoglobin 13.4 13.3-17.7 G/DL Hematocrit 36 L 40-54 % Mean Corpuscular Volume 87 80-99 FL Mean Corpuscular Hemoglobin 33 25-34 PG Mean Corpuscular Hemoglobin Concent 37 H 32-36 G/DL Red Cell Distribution Width 13.1 10.0-14.5 % Platelet Count 151 130-400 10^3/uL Mean Platelet Volume 10.6 H 7.4-10.4 FL Neutrophils (%) (Auto) 73 42-75 % Lymphocytes (%) (Auto) 12 12-44 % Monocytes (%) (Auto) 15 H 0-12 % Eosinophils (%) (Auto) 0 0-10 % Basophils (%) (Auto) 0 0-10 % Neutrophils # (Auto) 3.4 1.8-7.8 X 10^3 Lymphocytes # (Auto) 0.6 L 1.0-4.0 X 10^3 Monocytes # (Auto) 0.7 0.0-1.0 X 10^3 Eosinophils # (Auto) 0.0 0.0-0.3 10^3/uL Basophils # (Auto) 0.0 0.0-0.1 10^3/uL Sodium Level 140 135-145 MMOL/L Potassium Level 2.6 L 3.6-5.0 MMOL/L Chloride Level 107 98-107 MMOL/L Carbon Dioxide Level 18 L 21-32 MMOL/L Anion Gap 15 H 5-14 MMOL/L Blood Urea Nitrogen 10 7-18 MG/DL Creatinine 0.99 0.60-1.30 MG/DL Estimat Glomerular Filtration Rate > 60 BUN/Creatinine Ratio 10 Glucose Level 197 H 70-105 MG/DL Calcium Level 8.6 8.5-10.1 MG/DL Corrected Calcium 8.8 8.5-10.1 MG/DL Total Bilirubin 0.5 0.1-1.0 MG/DL Aspartate Amino Transf (AST/SGOT) 27 5-34 U/L Alanine Aminotransferase (ALT/SGPT) 45 0-55 U/L Alkaline Phosphatase 67 40-136 U/L Total Protein 6.1 L 6.4-8.2 GM/DL Albumin 3.7 3.2-4.5 GM/DL My Orders Orders - CASSY NOBLES MD Cbc With Automated Diff (12/31/17 15:20) Comprehensive Metabolic Panel (12/31/17 15:20) Ua Culture If Indicated (12/31/17 15:20) Ns Iv 1000 Ml (Sodium Chloride 0.9%) (12/31/17 16:15) Potassium Cl 10meq/50ml Ivpb (Kcl 10 Meq (12/31/17 16:45) Vital Signs/I&O 12/31/17 15:18 Temp 99.0 Pulse 111 Resp 18 B/P (MAP) 100/77 (85) Pulse Ox 100 O2 Delivery Room Air Capillary Refill : Less Than 3 Seconds Blood Pressure Mean: 85 Departure Communication (Admissions) 8243: Patient has received 2 L of IV fluid and milliequivalents of potassium. He reports he feels much better. He takes 20 mEq of potassium daily at home. Impression Primary Impression: dehydration Additional Impression: postchemotherapy side effects. Disposition: HOME, SELF-CARE Condition: Improved Departure-Patient Inst. Decision time for Depature: 17:34 Referrals: NO,LOCAL PHYSICIAN (PCP) Primary Care Physician Patient Instructions: No Instuctions Given Add. Discharge Instructions: All discharge instructions reviewed with patient and/or family. Voiced understanding. Plenty of liquids. Gatorade would be useful. Beginning in a.m. take 3 of your 20 mEq potassium caplets daily for 3 days. CASSY NOBLES MD Dec 31, 2017 16:11
[2017-12-31] MEDS ORDERED: NS IV 1000 ML 1,000 ML IV SCH (16:15)
[2017-12-31 16:17] LABS: ALANINE AMINOTRANSFERASE 45 U/L (0-55); ALBUMIN 3.7 GM/DL (3.2-4.5); ALKALINE PHOSPHATASE 67 U/L (40-136); BILIRUBIN,TOTAL 0.5 MG/DL (0.1-1.0); BUN/CREATININE RATIO 10; CALCIUM 8.6 MG/DL (8.5-10.1); CARBON DIOXIDE 18 MMOL/L (21-32); CHLORIDE 107 MMOL/L (98-107); CREATININE SERUM 0.99 MG/DL (0.60-1.30); GFR ESTIMATED > 60; GLUCOSE 197 MG/DL (70-105); POTASSIUM 2.6 MMOL/L (3.6-5.0); SODIUM 140 MMOL/L (135-145); TOTAL PROTEIN 6.1 GM/DL (6.4-8.2)
--- OUTSIDE RECORDS SUMMARY | 2017-12-31 16:33 | XMS REPORT | Clinical Summary ---
Author Author Admin, Kaylynn Organization [facility] [address] Address Unknown Phone Unavailable Allergies, Adverse Reactions, Alerts Allergy Name Reaction Description Start Date Severity Status Provider ERYTHROMYCIN Stomach cramps Moderate Active Prosper Arenas MD CODEINE Critical Active Maliheh Ziglari STATE HISTORICAL SOCIETY DIRECTOR DARVOCET Critical Active Maliheh Ziglari STATE HISTORICAL SOCIETY DIRECTOR LEVAQUIN Critical Active Maliheh Ziglari STATE HISTORICAL SOCIETY DIRECTOR Conditions or Problems Problem Name Problem Code Onset Date Status Entry Date Provider Comment Standard Description Annotate Diabetes, Type 2 250.00 Resolved 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 mellitus without mention of complication, type [...] Syncope and collapse Hypokalemia 276.8 Resolved Tami Mliler RN Hypopotassemia Diabetes mellitus, type II, uncontrolled 250.02 Active Maliheh Rodrigoglari STATE HISTORICAL SOCIETY DIRECTOR Diabetes mellitus without mention of complication, [...] with hyperglycemia 250.00 Active 03/21 Maliheh Ziglari STATE HISTORICAL SOCIETY DIRECTOR Diabetes mellitus without mention of complication, type II or unspecified type, not stated as uncontrolled retirement use of insulin treatment V58.67 Active Luxiheh Rodrigoglari STATE HISTORICAL SOCIETY DIRECTOR Long-term (current) use of insulin Diabetes mellitus, type II with hypoglycemia 250.80 Active 07/22 Maliheh Ziglari STATE HISTORICAL SOCIETY DIRECTOR Diabetes mellitus with other specified manifestations, type II or unspecified type, not stated as uncontrolled 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 Maliheh Ziglari STATE HISTORICAL SOCIETY DIRECTOR Diabetes mellitus with renal manifestations, type II or unspecified type, not stated as uncontrolled Wellness exam V70.0 Active Dee Palmer APRN Routine general medical examination at a health care facility Fitting and adjustment of vascular catheter V58.81 Active 02/06 Dee Palmer APRN Encounter for fitting and adjustment of vascular catheter Unawareness of hypoglycemia in diabetes mellitus, type II 250.80 Active Maliheh Rodrigoglari STATE HISTORICAL SOCIETY DIRECTOR Diabetes mellitus with other specified manifestations, [...] specified as recurrent) Gastritis Inactive Maliheh Ziglari STATE HISTORICAL SOCIETY DIRECTOR Unspecified gastritis and gastroduodenitis, without mention of [...] TABLET 1 daily for depression CITALOPRAM HYDROBROMIDE 60355981492 Active Prosper Arenas MD Active PREDNISONE 20 MG ORAL TABLET 2 tabs daily for 4 days, 1 tab daily for 4 days, 1/2 tab daily for 4 days PREDNISONE 84170716295 No Longer Active Prosper Arenas MD Active AZITHROMYCIN 250 MG ORAL TABLET 2 po qd x 1 day, then 1 po qd x 4 days 05/07 AZITHROMYCIN 82074716894 No Longer Active Dee Palmer APRN Active GUAIFENESIN DM 400-20 MG ORAL TABLET 1 pill by mouth twice daily, if needed for cough DEXTROMETHORPHAN-GUAIFENESIN 79192685471 Active Dee Palmer APRN Active ASPIRIN 81 MG ORAL TABLET 1 po qd ASPIRIN 06705691781 Active Dee Palmer APRN Active CALCIUM 500/D 500-200 MG-UNIT ORAL TABLET one tablet daily CALCIUM CARBONATE-VITAMIN D 18229093019 No Longer Active Dee Palmer APRN Active HYDROCODONE-ACETAMINOPHEN 7.5-325 MG ORAL TABLET 1-2 every 4-6 hrs prn 02/25 HYDROCODONE-ACETAMINOPHEN 01341157703 Active Marina King BESSY Active ASPIRIN 81 MG ORAL TABLET 1 tablet by mouth daily ASPIRIN 92638537356 No Longer Active Marina Messina APRN Active SIMVASTATIN 80 MG ORAL TABLET 1/2 tablet daily SIMVASTATIN 45015520478 No Longer Active Mekhi Dukes MD Active OMEPRAZOLE 20 MG ORAL CAPSULE DELAYED RELEASE 1 qd OMEPRAZOLE 49645962928 No Longer Active Mekhi Dukes MD Active METOPROLOL TARTRATE 25 MG ORAL TABLET 1/2 tablet twice a day METOPROLOL TARTRATE 66712159234 No Longer Active Mekhi Dukes MD Active LISINOPRIL 5 MG ORAL TABLET 1 daily LISINOPRIL 44224023846 No Longer Active Mekhi Dukes MD Active NOVOLOG FLEXPEN 100 UNIT/ML SUBCUTANEOUS SOLUTION PEN-INJECTOR Take 8 units with each meal, add 1u/50 for blood sugars above 150. INSULIN ASPART 53345757025 Active Moy PARISH Active GABAPENTIN 300 MG ORAL CAPSULE 1 tab BID GABAPENTIN 39783202327 Active Tami Miller RN Active PREDNISONE 20 MG ORAL TABLET Take 2 daily for 3 days and then 1 daily for 3 days PREDNISONE 41256083784 No Longer Active Maliheh Ziglari STATE HISTORICAL SOCIETY DIRECTOR Active BENZONATATE 200 MG ORAL CAPSULE Take 1 tablet 3 times a day as needed for cough BENZONATATE 05311195769 No Longer Active Prosper Arenas MD Active HYDROCHLOROTHIAZIDE 25 MG ORAL TABLET 1 tablet by mouth daily HYDROCHLOROTHIAZIDE 07987598264 No Longer Active Prosper Arenas MD Active ACCU-CHEK JOANNA PLUS IN VITRO STRIP check blood sugars 5x a day, before each meal and bedtime and 15 minutes after treating a low blood. sugar GLUCOSE BLOOD 15024278519 Active Maliheh Ziglari STATE HISTORICAL SOCIETY DIRECTOR Active LANTUS SOLOSTAR 100 UNIT/ML SUBCUTANEOUS SOLUTION PEN-INJECTOR Take 40 units at 7-8pm daily INSULIN GLARGINE 24645618483 Active Maliheh Ziglari STATE HISTORICAL SOCIETY DIRECTOR Active MECLIZINE HCL 25 MG ORAL TABLET 1 daily needed for dizziness 2015 MECLIZINE HCL 68189926639 No Longer Active Maliheh Ziglari STATE HISTORICAL SOCIETY DIRECTOR Active BENZONATATE 200 MG ORAL CAPSULE 1 tab, 2-3 times a day BENZONATATE 32186087569 No Longer Active Maliheh Ziglari STATE HISTORICAL SOCIETY DIRECTOR Active HALOPERIDOL 0.5 MG ORAL TABLET one tablet three times a day HALOPERIDOL 35461938532 No Longer Active Maliheh Ziglari STATE HISTORICAL SOCIETY DIRECTOR Active TRAZODONE HCL 50 MG ORAL TABLET three tablets at bed time TRAZODONE HCL 41291454313 No Longer [facility] STATE HISTORICAL SOCIETY DIRECTOR Active REVLIMID 25 MG ORAL CAPSULE one capsule daily for 21 days then off for 7 days LENALIDOMIDE 08713857777 No Longer Active Maliheh Ziglari STATE HISTORICAL SOCIETY DIRECTOR Active ZITHROMAX Z-EDDIE 250 MG ORAL TABLET 2 today, then 1 daily for 4 days AZITHROMYCIN 84080267786 No Longer Active Augustina Mata PRIVATE SECURITY GUARD Active NOVOLIN R RELION 100 UNIT/ML INJECTION SOLUTION 30- 40 units each meal sliding scale INSULIN REGULAR HUMAN 66061147971 No Longer Active Maliheh Ziglari STATE HISTORICAL SOCIETY DIRECTOR Active HYDROCODONE-ACETAMINOPHEN 5-500 MG ORAL TABLET 1-2 FOUR TIMES A DAY, PRN 2010 HYDROCODONE-ACETAMINOPHEN 53622006551 No Longer Active Prosper Arenas MD Active DOXYCYCLINE HYCLATE 100 MG ORAL CAPSULE take one capsule by mouth twice daily for ten days DOXYCYCLINE HYCLATE 66847195134 No Longer Active Mekhi Dukes MD Active DOXYCYCLINE HYCLATE 100 MG ORAL CAPSULE take one capsule by mouth twice daily for ten days DOXYCYCLINE HYCLATE 100 MG ORAL CAPSULE 5292229 DOXYCYCLINE HYCLATE Inactive HYDROCODONE-ACETAMINOPHEN 5-500 MG ORAL [...] days ZITHROMAX Z-EDDIE 250 MG ORAL TABLET 587631 AZITHROMYCIN Inactive REVLIMID 25 MG ORAL CAPSULE one capsule daily for 21 days then off for 7 days REVLIMID 25 MG ORAL CAPSULE LENALIDOMIDE Inactive TRAZODONE HCL 50 MG ORAL TABLET three tablets at bed time TRAZODONE HCL 50 MG ORAL TABLET 187265 TRAZODONE HCL Inactive HALOPERIDOL 0.5 MG ORAL TABLET one tablet three times a day HALOPERIDOL 0.5 MG ORAL TABLET 749301 HALOPERIDOL Inactive BENZONATATE 200 MG ORAL CAPSULE 1 tab, 2-3 times a day BENZONATATE 200 MG ORAL CAPSULE 533591 BENZONATATE Inactive MECLIZINE HCL 25 MG ORAL TABLET 1 daily needed for dizziness 2015 MECLIZINE HCL 25 MG ORAL TABLET 581913 MECLIZINE HCL Inactive HYDROCHLOROTHIAZIDE 25 MG ORAL TABLET 1 tablet by mouth daily HYDROCHLOROTHIAZIDE 25 MG ORAL TABLET 449050 HYDROCHLOROTHIAZIDE Inactive PREDNISONE 20 MG ORAL TABLET Take 2 daily for 3 days and then 1 daily for 3 days PREDNISONE 20 MG ORAL TABLET 656513 PREDNISONE Inactive LISINOPRIL 5 MG ORAL TABLET 1 daily LISINOPRIL 5 MG ORAL TABLET 924185 LISINOPRIL Inactive METOPROLOL TARTRATE 25 MG ORAL TABLET 1/2 tablet twice a day METOPROLOL TARTRATE 25 MG ORAL TABLET 763490 METOPROLOL TARTRATE Inactive OMEPRAZOLE 20 MG ORAL CAPSULE DELAYED RELEASE 1 qd OMEPRAZOLE 20 MG ORAL CAPSULE DELAYED RELEASE 914454 OMEPRAZOLE Inactive SIMVASTATIN 80 MG ORAL TABLET 1/2 tablet daily SIMVASTATIN 80 MG ORAL TABLET 768540 SIMVASTATIN Inactive ASPIRIN 81 MG ORAL TABLET [...] 4 days PREDNISONE 20 MG ORAL TABLET 364940 PREDNISONE Inactive BENZONATATE 200 MG ORAL CAPSULE Take 1 tablet 3 times a day as needed for cough BENZONATATE 200 MG ORAL CAPSULE 068035 BENZONATATE Inactive AZITHROMYCIN 250 MG ORAL TABLET 2 po qd x 1 day, then 1 po qd x 4 days 05/07 AZITHROMYCIN 250 MG ORAL TABLET 096349 AZITHROMYCIN Inactive Advance Directives Directive Description Start [...] % 11.6-14.8 platelet count 294 10^3/MM^3 10*3/mm3 396-244 8655/05/29 leukocyte count, blood 2.4 10^3/MM^3 10*3/mm3 4.6-10.2 [...] % 11.6-14.8 platelet count 138 10^3/MM^3 10*3/mm3 304-191 6766/06/12 leukocyte count, blood 4.3 10^3/MM^3 10*3/mm3 4.6-10.2 [...] % 11.6-14.8 platelet count 355 10^3/MM^3 10*3/mm3 666-712 1336/06/19 leukocyte count, blood 2.2 10^3/MM^3 10*3/mm3 4.6-10.2 [...] % 11.6-14.8 platelet count 109 10^3/MM^3 10*3/mm3 992-794 1127/07/06 leukocyte count, blood 5.1 10^3/MM^3 10*3/mm3 4.6-10.2 [...] Panel - Chemistry sodium, serum 137 mmol/L 125-936 1447/06/05 carbon dioxide, venous blood 26.0 mmol/L 21.0-32.0 potassium, serum 4.5 mmol/L 3.5-5.2 chloride, serum 100 mmol/L 98-107 blood glucose 100 mg/dL 65-95 urea nitrogen, blood 16 mg/dL 7-18 creatinine, serum 1.67 mg/dL 0.60-1.30 alanine aminotransferase (SGPT), serum 75 U/L 12-78 aspartate aminotransferase (SGOT), serum 46 U/L 15-37 calcium, serum 9.8 mg/dL 8.5-10.1 bilirubin, serum, total 0.40 mg/dL 0.00-1.00 sodium, serum 124 mmol/L 312-900 6131/07/06 carbon dioxide, venous blood 20.9 mmol/L 21.0-32.0 potassium, serum 4.0 mmol/L 3.5-5.2 chloride, serum 90 mmol/L 98-107 blood glucose 175 mg/dL 65- urea nitrogen, blood 14 mg/dL 7-18 creatinine, serum 1.21 mg/dL 0.60-1.30 alanine aminotransferase (SGPT), serum 70 U/L 12- aspartate aminotransferase (SGOT), serum 32 U/L 15-37 calcium, serum 8.5 mg/dL 8.5-10.1 bilirubin, serum, total 0.80 mg/dL 0.00-1.00 sodium, serum 133 mmol/L 622-467 6806/07/24 carbon dioxide, venous blood 20.6 mmol/L 21.0-32.0 potassium, serum 3.0 mmol/L 3.5-5.2 chloride, serum 100 mmol/L 98-107 blood glucose 193 mg/dL 65- urea nitrogen, blood 11 mg/dL 7-18 creatinine, serum 1.28 mg/dL 0.60-1.30 alanine aminotransferase (SGPT), serum 48 U/L - aspartate aminotransferase (SGOT), serum 22 U/L 15-37 calcium, serum 8.3 mg/dL 8.5-10.1 bilirubin, serum, total 0.50 mg/dL 0.00-1.00 sodium, serum 134 mmol/L 961-287 3078/05/15 carbon dioxide, venous blood 23.5 mmol/L 21.0-32.0 potassium, serum 4.8 mmol/L 3.5-5.2 chloride, serum 101 mmol/L 98-107 blood glucose 139 mg/dL 65-95 urea nitrogen, blood 19 mg/dL 7-18 creatinine, serum 1.79 mg/dL 0.60-1.30 alanine aminotransferase (SGPT), serum 140 U/L aspartate aminotransferase (SGOT), serum 104 U/L calcium, serum 8.5 mg/dL 8.5-10.1 bilirubin, serum, total 0.40 mg/dL 0.00-1.00 sodium, serum 135 mmol/L 742-318 2248/05/08 carbon dioxide, venous blood 29.0 mmol/L 21.0-32.0 potassium, serum 4.8 mmol/L 3.5-5.2 chloride, serum 101 mmol/L 98-107 blood glucose 165 mg/dL 65-95 urea nitrogen, blood 19 mg/dL 7-18 creatinine, serum 1.51 mg/dL 0.60-1.30 alanine aminotransferase (SGPT), serum 65 U/L aspartate aminotransferase (SGOT), serum 38 U/L calcium, serum 8.2 mg/dL 8.5-10.1 bilirubin, serum, total 0.50 mg/dL 0.00-1.00 sodium, serum 135 mmol/L 396-861 1662/04/10 carbon dioxide, venous blood 26.1 mmol/L 21.0-32.0 potassium, serum 4.2 mmol/L 3.5-5.2 chloride, serum 100 mmol/L 98-107 blood glucose 293 mg/dL 65-110 urea nitrogen, blood 18 mg/dL 7-18 creatinine, serum 2.06 mg/dL 0.60-1.30 alanine aminotransferase (SGPT), serum 59 U/L aspartate aminotransferase (SGOT), serum 47 U/L calcium, serum 8.6 mg/dL 8.5-10.1 bilirubin, serum, total 0.30 mg/dL 0.00-1.00 sodium, serum 139 mmol/L 067-818 1173/05/01 carbon dioxide, venous blood 25.2 mmol/L 21.0-32.0 [...] % 11.6-14.8 platelet count 103 10^3/MM^3 10*3/mm3 391-854 4546/05/01 leukocyte count, blood 5.0 10^3/MM^3 10*3/mm3 4.6-10.2 [...] % 11.6-14.8 platelet count 271 10^3/MM^3 10*3/mm3 356-566 6869/04/10 leukocyte count, blood 4.8 10^3/MM^3 10*3/mm3 4.6-10.2 [...] % 11.6-14.8 platelet count 200 10^3/MM^3 10*3/mm3 998-498 2758/05/15 hemoglobin, blood 16.8 g/dL 14.0-18.0 hematocrit, blood 49.2 % 40.0-54.0 mean corpuscular volume, RBC 98 fL 80-97 mean corpuscular hemoglobin, RBC 33.6 pg 27.0-31.2 mean corpuscular hemoglobin concentration, RBC 34.2 G/DL % 31.8- 35.4 red blood cell distribution width 13.6 % 11.6-14.8 platelet count 36 10^3/MM^3 10*3/mm3 813-336 9954/05/15 erythrocyte (RBC) count 5.00 10^6/MM^3 10*6/mm3 4.50-6.50 lymphocytes as percent of blood leukocytes 31.3 % 20.5-51.1 monocytes as percent of blood leukocytes 25.2 % 1.7-9.3 neutrophils as percent of blood leukocytes 41.6 % 42.2-75.2 leukocyte count, blood 1.7 10^3/MM^3 10*3/mm3 4.6-10.2 leukocyte count, blood 2.7 10^3/MM^3 10*3/mm3 4.6-10.2 [...] % 11.6-14.8 platelet count 84 10^3/MM^3 10*3/mm3 323-299 1720/07/24 leukocyte count, blood 4.3 10^3/MM^3 10*3/mm3 4.6-10.2 [...] Panel - Chemistry sodium, serum 132 mmol/L 101-020 8534/06/19 carbon dioxide, venous blood 20.9 mmol/L 21.0-32.0 potassium, serum 3.9 mmol/L 3.5-5.2 chloride, serum 102 mmol/L 98-107 blood glucose 259 mg/dL 65- urea nitrogen, blood 16 mg/dL 7- creatinine, serum 1.46 mg/dL 0.60-1.30 alanine aminotransferase (SGPT), serum 62 U/L - aspartate aminotransferase (SGOT), serum 27 U/L 15-37 calcium, serum 7.5 mg/dL 8.5-10.1 bilirubin, serum, total 0.50 mg/dL 0.00-1.00 sodium, serum 134 mmol/L 107-115 7564/06/12 carbon dioxide, venous blood 21.9 mmol/L 21.0-32.0 potassium, serum 4.4 mmol/L 3.5-5.2 chloride, serum 97 mmol/L 98-107 blood glucose 191 mg/dL 65- urea nitrogen, blood 23 mg/dL 7- creatinine, serum 1.68 mg/dL 0.60-1.30 alanine aminotransferase (SGPT), serum 64 U/L aspartate aminotransferase (SGOT), serum 35 U/L 15-37 calcium, serum 8.9 mg/dL 8.5-10.1 bilirubin, serum, total 0.70 mg/dL 0.00-1.00 carbon dioxide, venous blood 25.2 mmol/L 21.0-32.0 potassium, serum 5.0 mmol/L 3.5-5.2 chloride, serum 100 mmol/L 98-107 blood glucose 278 mg/dL - urea nitrogen, blood 19 mg/dL - sodium, serum 136 mmol/L 596-630 4604/05/29 carbon dioxide, venous blood 22.4 mmol/L 21.0-32.0 potassium, serum 4.0 mmol/L 3.5-5.2 chloride, serum 104 mmol/L 98-107 blood glucose 128 mg/dL 65-95 urea nitrogen, blood 20 mg/dL 7-18 creatinine, serum 1.47 mg/dL 0.60-1.30 alanine aminotransferase (SGPT), serum 80 U/L - aspartate aminotransferase (SGOT), serum 38 U/L - calcium, serum 9.1 mg/dL 8.5-10.1 bilirubin, serum, total 0.40 mg/dL 0.00-1.00 sodium, serum 134 mmol/L 697-537 1487/05/22 creatinine, serum 1.49 mg/dL 0.60-1.30 alanine aminotransferase (SGPT), serum 93 U/L aspartate aminotransferase (SGOT), serum 58 U/L - calcium, serum 9.1 mg/dL 8.5-10.1 bilirubin, serum, total 0.20 mg/dL 0.00-1.00 Lab Report: Comp. Metabolic Panel, CBC W/DIFF - Chemistry sodium, serum 137 mmol/L 549-208 6012/08/16 carbon dioxide, venous blood 26.3 mmol/L 21.0-32.0 potassium, serum 4.4 mmol/L 3.5-5.2 chloride, serum 104 mmol/L 98-107 blood glucose 138 mg/dL 65-110 urea nitrogen, blood 23 mg/dL 7-18 creatinine, serum 2.38 mg/dL 0.60-1.30 alanine aminotransferase (SGPT), serum 96 U/L aspartate aminotransferase (SGOT), serum 85 U/L - calcium, serum 9.0 mg/dL 8.5-10.1 bilirubin, serum, [...] LABS - Chemistry cholesterol, serum 115 mg/dL 113-714 5674/08/18 triglyceride, serum, fasting 89 mg/dL 30-200 HDL [...] mg/dL Encounters Code Encounter Date Provider Facility CPT-80742 [id number] Vst-Est Level IV 11:03:20 CDT Prosper Arenas MD [facility] CPT-82954 Level 3 Est. Patient 14:09:25 FERMENTATION ENGINEER Dee Palmer APRN [facility] CPT-52395 Level 3 Est. Patient 10:53:32 FERMENTATION ENGINEER Moy Garcia [facility] CPT-68595 Level 3 Est. Patient 17:11:55 FERMENTATION ENGINEER Ismael Gracia MD [facility] CPT-86495 Level 4 Est. Patient 16:29:19 CDT Mekhi Dukes MD [facility] CPT-38414 Level 3 New Patient 17:05:24 CDT Ismael Gracia MD [facility] CPT-51009 Level 2 Est. Patient 15:43:17 CDT Mekhi Dukes MD [facility] CPT-48504 Level 3 Est. Patient 09:30:37 CDT Moy Garcia [facility] CPT-75290 Level 3 Est. Patient 10:00:14 CDT Mekhi Dukes MD [facility] CPT-06845 Level 3 Est. Patient 12:24:09 CDT Moy Garcia [facility] CPT-21814 Level 3 Est. Patient 14:34:57 CDT Prosper Arenas MD [facility] CPT-13155 Level 3 New Patient 15:44:53 FERMENTATION ENGINEER Mekhi Dukes MD [facility] CPT-50663 Level 3 Est. Patient 14:53:34 FERMENTATION ENGINEER Prosper Arenas MD [facility] CPT-18345 Level 4 Est. Patient 10:05:41 FERMENTATION ENGINEER Moy Garcia [facility] CPT-75576 Level 3 Est. Patient 11:18:32 CDT Moy Garcia [facility] CPT-86697 Level 4 Est. Patient 11:05:10 CDT Moy Garcia [facility] CPT-55463 Level 3 Est. Patient 11:08:27 FERMENTATION ENGINEER Moy Garcia [facility] CPT-65049 Level 4 Est. Patient 10:43:59 CDT Prosper Arenas MD [facility]-22227 Level 3 Est. Patient 10:51:19 CDT Moy Garcia [facility] CPT-13594 Level 3 Est. [facility] CPT-89023 Level 3 Est. Patient [facility]:08:45 [facility] 2 Est. Patient 13:54:36 CDT Augustina Mata APRN [facility] CPT-30785 Level 3 Est. Patient 12:00:42 CDT Prosper Arenas MD [facility]-86396 Level 3 Est. Patient 09:57:28 FERMENTATION ENGINEER Moy Garcia [facility] CPT-04762 Level 3 Est. Patient 11:41:19 FERMENTATION ENGINEER Moy Garcia [facility] CPT-86461 Level 4 Est. Patient 17:07:35 FERMENTATION ENGINEER Moy Garcia [facility] CPT-15964 Level 5 Est. Patient 14:33:[facility] CPT-27645 Level 3 Est. Patient 12:25:35 CDT Prosper Arenas MD [facility] Procedures Code Procedure Name Date Entry Date Standard Description CPT-95958 Chest, 2 views 14:17:20 FERMENTATION ENGINEER CPT-67820 Postop F/U Visit 14:44:45 FERMENTATION ENGINEER CPT-20464 Postop F/U Visit 17:20:20 FERMENTATION ENGINEER CPT-G0439 Subsequent Annual Wellness Exam 08:39:41 FERMENTATION ENGINEER CPT-000 Give Appropriate Flu Vaccine 10:13:55 FERMENTATION ENGINEER CPT-000 Give Immunizations Due 10:13:55 FERMENTATION ENGINEER CPT-75046 HGBA1C - LAB USE ONLY 09:42:47 FERMENTATION ENGINEER CPT-70468 TPSA - LAB USE ONLY 09:42:46 FERMENTATION ENGINEER CPT-77337 Venipuncture Draw Fee 09:42:46 FERMENTATION ENGINEER CPT-21087 Port a cath flush 13:33:18 FERMENTATION ENGINEER CPT-56163 First Vx - Ix admin for Medicare patients 10:42:57 FERMENTATION ENGINEER CPT-13552 Fluzone Preservative Free Intramuscular Suspension 10:42 :57 FERMENTATION ENGINEER CPT-G0438 Initial Annual Wellness Exam 10:13:55 FERMENTATION ENGINEER CPT-000 Give Appropriate Flu Vaccine 10:44:04 CDT CPT-000 Give Pneumovax 10:44:03 CDT CPT-71416 Port a cath flush 17:04:43 CDT CPT-40538 Prevnar 13 11:19:17 CDT CPT-88332 Fluzone Quadrivalent preservative free (>=3yrs.) 11:19: 17 CDT CPT-20180 Immunization Each Additional Inj 11:19:17 CDT CPT-75774 Immunization Single Admin 11:19:17 CDT CPT-54870 Port a cath flush 13:28:22 CDT CPT-TCMM Transitional Care Mgmt-Moderate 13:40:15 CDT CPT-G0008 Administration of Influenza Virus Vaccine 13:59:20 CDT CPT-27488 Fluzone High-Dose Intramuscular Suspension 13:59:20 CDT CPT-91265 Venipuncture Draw Fee 09:56:19 CDT CPT-OV Office Visit 15:46:10 CDT
--- OUTSIDE RECORDS SUMMARY | 2017-12-31 16:34 | XMS REPORT | Clinical Summary ---
Author Author Admin, [facility] Organization [facility] Address Unknown Phone Unavailable Allergies, Adverse Reactions, Alerts Allergy Name Reaction Description Start Date Severity Status Provider ERYTHROMYCIN Stomach cramps Moderate Active Prosper Arenas MD CODEINE Critical Active Maliheh Ziglari AUDIOVISUAL AIDS TECHNICIAN DARVOCET Critical Active Maliheh Ziglari AUDIOVISUAL AIDS TECHNICIAN LEVAQUIN Critical Active Maliheh Ziglari AUDIOVISUAL AIDS TECHNICIAN Conditions or Problems Problem Name Problem Code Onset Date Status Entry Date Provider Comment Standard Description Annotate Diabetes, Type 2 250.00 Resolved 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 mellitus without mention of complication, type [...] with hyperglycemia 250.00 Active 03/21 Maliheh Ziglari AUDIOVISUAL AIDS TECHNICIAN Diabetes mellitus without mention of complication, type II or unspecified type, not stated as uncontrolled prison use of insulin treatment V58.67 Active Jose Antonioeh Rodrigoglari AUDIOVISUAL AIDS TECHNICIAN Long-term (current) use of insulin Diabetes mellitus, type II with hypoglycemia 250.80 Active 07/22 Maliheh Ziglari AUDIOVISUAL AIDS TECHNICIAN Diabetes mellitus with other specified manifestations, type II or unspecified type, not stated as uncontrolled 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 Maliheh Ziglari AUDIOVISUAL AIDS TECHNICIAN Diabetes mellitus with renal manifestations, type II or unspecified type, not stated as uncontrolled Wellness exam V70.0 Active Dee Palmer APRN Routine general medical examination at a health care facility Fitting and adjustment of vascular catheter V58.81 Active 02/06 Dee Palmer APRN Encounter for fitting and adjustment of vascular catheter Unawareness of hypoglycemia in diabetes mellitus, type II 250.80 Active Maliheh Rodrigoglari AUDIOVISUAL AIDS TECHNICIAN Diabetes mellitus with other specified manifestations, [...] specified as recurrent) Gastritis Inactive Maliheh Ziglari AUDIOVISUAL AIDS TECHNICIAN Unspecified gastritis and gastroduodenitis, without mention [...] TABLET 1 daily for depression CITALOPRAM HYDROBROMIDE 47930823255 Active Prosper Arenas MD Active PREDNISONE 20 MG ORAL TABLET 2 tabs daily for 4 days, 1 tab daily for 4 days, 1/2 tab daily for 4 days PREDNISONE 77147871028 No Longer Active Prosper Arenas MD Active AZITHROMYCIN 250 MG ORAL TABLET 2 po qd x 1 day, then 1 po qd x 4 days 05/07 AZITHROMYCIN 89728503538 No Longer Active Dee Palmer APRN Active GUAIFENESIN DM 400-20 MG ORAL TABLET 1 pill by mouth twice daily, if needed for cough DEXTROMETHORPHAN-GUAIFENESIN 94160853905 Active Dee Palmer APRN Active ASPIRIN 81 MG ORAL TABLET 1 po qd ASPIRIN 90651764437 Active Dee Palmer APRN Active CALCIUM 500/D 500-200 MG-UNIT ORAL TABLET one tablet daily CALCIUM CARBONATE-VITAMIN D 14525747275 No Longer Active Dee Palmer APRN Active HYDROCODONE-ACETAMINOPHEN 7.5-325 MG ORAL TABLET 1-2 every 4-6 hrs prn 02/25 HYDROCODONE-ACETAMINOPHEN 89820785992 Active Marina King BESSY Active ASPIRIN 81 MG ORAL TABLET 1 tablet by mouth daily ASPIRIN 19081714979 No Longer Active Marina King BESSY Active SIMVASTATIN 80 MG ORAL TABLET 1/2 tablet daily SIMVASTATIN 33015449320 No Longer Active Mekhi Dukes MD Active OMEPRAZOLE 20 MG ORAL CAPSULE DELAYED RELEASE 1 qd OMEPRAZOLE 85678662892 No Longer Active Mekhi Dukes MD Active METOPROLOL TARTRATE 25 MG ORAL TABLET 1/2 tablet twice a day METOPROLOL TARTRATE 99972132951 No Longer Active Mekhi Dukes MD Active LISINOPRIL 5 MG ORAL TABLET 1 daily LISINOPRIL 11282501167 No Longer Active Mekhi Dukes MD Active NOVOLOG FLEXPEN 100 UNIT/ML SUBCUTANEOUS SOLUTION PEN-INJECTOR Take 8 units with each meal, add 1u/50 for blood sugars above 150. INSULIN ASPART 28843479318 Active Moy PARIHS Active GABAPENTIN 300 MG ORAL CAPSULE 1 tab BID GABAPENTIN 18696811135 Active Tami Miller RN Active PREDNISONE 20 MG ORAL TABLET Take 2 daily for 3 days and then 1 daily for 3 days PREDNISONE 05981947755 No Longer Active Malpapo Wallaceglari JEM Active BENZONATATE 200 MG ORAL CAPSULE Take 1 tablet 3 times a day as needed for cough BENZONATATE 52917510757 No Longer Active Prosper Arenas MD Active HYDROCHLOROTHIAZIDE 25 MG ORAL TABLET 1 tablet by mouth daily HYDROCHLOROTHIAZIDE 40503377914 No Longer Active Prosper Arenas MD Active ACCU-CHEK JOANNA PLUS IN VITRO STRIP check blood sugars 5x a day, before each meal and bedtime and 15 minutes after treating a low blood. sugar GLUCOSE BLOOD 03663895836 Active Maliheh Ziglari AUDIOVISUAL AIDS TECHNICIAN Active LANTUS SOLOSTAR 100 UNIT/ML SUBCUTANEOUS SOLUTION PEN-INJECTOR Take 40 units at 7-8pm daily INSULIN GLARGINE 77375332198 Active Maliheh Ziglari AUDIOVISUAL AIDS TECHNICIAN Active MECLIZINE HCL 25 MG ORAL TABLET 1 daily needed for dizziness 2015 MECLIZINE HCL 61965966833 No Longer Active Maliheh Ziglari AUDIOVISUAL AIDS TECHNICIAN Active BENZONATATE 200 MG ORAL CAPSULE 1 tab, 2-3 times a day BENZONATATE 30030595309 No Longer Active Maliheh Ziglari AUDIOVISUAL AIDS TECHNICIAN Active HALOPERIDOL 0.5 MG ORAL TABLET one tablet three times a day HALOPERIDOL 52507729406 No Longer Active Maliheh Ziglari AUDIOVISUAL AIDS TECHNICIAN Active TRAZODONE HCL 50 MG ORAL TABLET three tablets at bed time TRAZODONE HCL 32980508481 No Longer Active Maliheh Ziglari AUDIOVISUAL AIDS TECHNICIAN Active REVLIMID 25 MG ORAL CAPSULE one capsule daily for 21 days then off for 7 days LENALIDOMIDE 96770010702 No Longer Active Maliheh Ziglari AUDIOVISUAL AIDS TECHNICIAN Active ZITHROMAX Z-EDDIE 250 MG ORAL TABLET 2 today, then 1 daily for 4 days AZITHROMYCIN 89021312969 No Longer Active Augustina Mata APRN Active NOVOLIN R RELION 100 UNIT/ML INJECTION SOLUTION 30- 40 units each meal sliding scale INSULIN REGULAR HUMAN 41581029529 No Longer Active Maliheh Ziglari AUDIOVISUAL AIDS TECHNICIAN Active HYDROCODONE-ACETAMINOPHEN 5-500 MG ORAL TABLET 1-2 FOUR TIMES A DAY, PRN 2010 HYDROCODONE-ACETAMINOPHEN 83721546125 No Longer Active Prosper Arenas MD Active DOXYCYCLINE HYCLATE 100 MG ORAL CAPSULE take one capsule by mouth twice daily for ten days DOXYCYCLINE HYCLATE 46805247460 No Longer Active Mekhi Dukes MD Active DOXYCYCLINE HYCLATE 100 MG ORAL CAPSULE take one capsule by mouth twice daily for ten days DOXYCYCLINE HYCLATE 100 MG ORAL CAPSULE 5255638 DOXYCYCLINE HYCLATE Inactive HYDROCODONE-ACETAMINOPHEN 5-500 MG ORAL [...] days ZITHROMAX Z-EDDIE 250 MG ORAL TABLET 986939 AZITHROMYCIN Inactive REVLIMID 25 MG ORAL CAPSULE one capsule daily for 21 days then off for 7 days REVLIMID 25 MG ORAL CAPSULE LENALIDOMIDE Inactive TRAZODONE HCL 50 MG ORAL TABLET three tablets at bed time TRAZODONE HCL 50 MG ORAL TABLET 473061 TRAZODONE HCL Inactive HALOPERIDOL 0.5 MG ORAL TABLET one tablet three times a day HALOPERIDOL 0.5 MG ORAL TABLET 200785 HALOPERIDOL Inactive BENZONATATE 200 MG ORAL CAPSULE 1 tab, 2-3 times a day BENZONATATE 200 MG ORAL CAPSULE 310955 BENZONATATE Inactive MECLIZINE HCL 25 MG ORAL TABLET 1 daily needed for dizziness 2015 MECLIZINE HCL 25 MG ORAL TABLET 264707 MECLIZINE HCL Inactive HYDROCHLOROTHIAZIDE 25 MG ORAL TABLET 1 tablet by mouth daily HYDROCHLOROTHIAZIDE 25 MG ORAL TABLET 916241 HYDROCHLOROTHIAZIDE Inactive PREDNISONE 20 MG ORAL TABLET Take 2 daily for 3 days and then 1 daily for 3 days PREDNISONE 20 MG ORAL TABLET 864338 PREDNISONE Inactive LISINOPRIL 5 MG ORAL TABLET 1 daily LISINOPRIL 5 MG ORAL TABLET 272691 LISINOPRIL Inactive METOPROLOL TARTRATE 25 MG ORAL TABLET 1/2 tablet twice a day METOPROLOL TARTRATE 25 MG ORAL TABLET 745950 METOPROLOL TARTRATE Inactive OMEPRAZOLE 20 MG ORAL CAPSULE DELAYED RELEASE 1 qd OMEPRAZOLE 20 MG ORAL CAPSULE DELAYED RELEASE 949622 OMEPRAZOLE Inactive SIMVASTATIN 80 MG ORAL TABLET 1/2 tablet daily SIMVASTATIN 80 MG ORAL TABLET 145716 SIMVASTATIN Inactive ASPIRIN 81 MG ORAL TABLET [...] 4 days PREDNISONE 20 MG ORAL TABLET 061892 PREDNISONE Inactive BENZONATATE 200 MG ORAL CAPSULE Take 1 tablet 3 times a day as needed for cough BENZONATATE 200 MG ORAL CAPSULE 945148 BENZONATATE Inactive AZITHROMYCIN 250 MG ORAL TABLET 2 po qd x 1 day, then 1 po qd x 4 days 05/07 AZITHROMYCIN 250 MG ORAL TABLET 686742 AZITHROMYCIN Inactive Advance Directives Directive Description Start [...] % 11.6-14.8 platelet count 294 10^3/MM^3 10*3/mm3 528-063 1696/05/29 leukocyte count, blood 2.4 10^3/MM^3 10*3/mm3 4.6-10.2 [...] % 11.6-14.8 platelet count 138 10^3/MM^3 10*3/mm3 871-594 2086/06/12 leukocyte count, blood 4.3 10^3/MM^3 10*3/mm3 4.6-10.2 [...] % 11.6-14.8 platelet count 355 10^3/MM^3 10*3/mm3 274-371 5869/06/19 leukocyte count, blood 2.2 10^3/MM^3 10*3/mm3 4.6-10.2 [...] % 11.6-14.8 platelet count 109 10^3/MM^3 10*3/mm3 773-340 4201/07/06 leukocyte count, blood 5.1 10^3/MM^3 10*3/mm3 4.6-10.2 [...] Panel - Chemistry sodium, serum 133 mmol/L 182-441 6295/07/24 carbon dioxide, venous blood 20.6 mmol/L 21.0-32.0 potassium, serum 3.0 mmol/L 3.5-5.2 chloride, serum 100 mmol/L 98-107 blood glucose 193 mg/dL 65-95 urea nitrogen, blood 11 mg/dL 7-18 creatinine, serum 1.28 mg/dL 0.60-1.30 alanine aminotransferase (SGPT), serum 48 U/L 12-78 aspartate aminotransferase (SGOT), serum 22 U/L 15-37 calcium, serum 8.3 mg/dL 8.5-10.1 bilirubin, serum, total 0.50 mg/dL 0.00-1.00 sodium, serum 137 mmol/L 290-156 9624/06/05 carbon dioxide, venous blood 26.0 mmol/L 21.0-32.0 potassium, serum 4.5 mmol/L 3.5-5.2 chloride, serum 100 mmol/L 98-107 blood glucose 100 mg/dL 65-95 urea nitrogen, blood 16 mg/dL 7-18 creatinine, serum 1.67 mg/dL 0.60-1.30 alanine aminotransferase (SGPT), serum 75 U/L 12-78 aspartate aminotransferase (SGOT), serum 46 U/L 15-37 calcium, serum 9.8 mg/dL 8.5-10.1 bilirubin, serum, total 0.40 mg/dL 0.00-1.00 sodium, serum 124 mmol/L 480-416 6136/07/06 carbon dioxide, venous blood 20.9 mmol/L 21.0-32.0 potassium, serum 4.0 mmol/L 3.5-5.2 chloride, serum 90 mmol/L 98-107 blood glucose 175 mg/dL 65-95 urea nitrogen, blood 14 mg/dL 7-18 creatinine, serum 1.21 mg/dL 0.60-1.30 alanine aminotransferase (SGPT), serum 70 U/L -78 aspartate aminotransferase (SGOT), serum 32 U/L 15-37 calcium, serum 8.5 mg/dL 8.5-10.1 bilirubin, serum, total 0.80 mg/dL 0.00-1.00 sodium, serum 134 mmol/L 159-960 6881/05/15 carbon dioxide, venous blood 23.5 mmol/L 21.0-32.0 potassium, serum 4.8 mmol/L 3.5-5.2 chloride, serum 101 mmol/L 98-107 blood glucose 139 mg/dL 65-95 urea nitrogen, blood 19 mg/dL 7-18 creatinine, serum 1.79 mg/dL 0.60-1.30 alanine aminotransferase (SGPT), serum 140 U/L aspartate aminotransferase (SGOT), serum 104 U/L calcium, serum 8.5 mg/dL 8.5-10.1 bilirubin, serum, total 0.40 mg/dL 0.00-1.00 sodium, serum 139 mmol/L 831-683 4957/05/01 carbon dioxide, venous blood 25.2 mmol/L 21.0-32.0 potassium, serum 4.1 mmol/L 3.5-5.2 chloride, serum 104 mmol/L 98-107 blood glucose 64 mg/dL 65-95 urea nitrogen, blood 16 mg/dL 7-18 creatinine, serum 1.55 mg/dL 0.60-1.30 alanine aminotransferase (SGPT), serum 80 U/L aspartate aminotransferase (SGOT), serum 53 U/L calcium, serum 8.1 mg/dL 8.5-10.1 bilirubin, serum, total 0.40 mg/dL 0.00-1.00 sodium, serum 135 mmol/L 050-508 9710/05/08 carbon dioxide, venous blood 29.0 mmol/L 21.0-32.0 potassium, serum 4.8 mmol/L 3.5-5.2 chloride, serum 101 mmol/L 98-107 blood glucose 165 mg/dL 65-95 urea nitrogen, blood 19 mg/dL 7-18 creatinine, serum 1.51 mg/dL 0.60-1.30 alanine aminotransferase (SGPT), serum 65 U/L aspartate aminotransferase (SGOT), serum 38 U/L calcium, serum 8.2 mg/dL 8.5-10.1 bilirubin, serum, total 0.50 mg/dL 0.00-1.00 sodium, serum 135 mmol/L 902-710 6285/04/10 carbon dioxide, venous blood 26.1 mmol/L 21.0-32.0 [...] % 11.6-14.8 platelet count 271 10^3/MM^3 10*3/mm3 557-118 7785/04/10 leukocyte count, blood 4.8 10^3/MM^3 10*3/mm3 4.6-10.2 [...] % 11.6-14.8 platelet count 200 10^3/MM^3 10*3/mm3 023-937 3494/05/15 leukocyte count, blood 1.7 10^3/MM^3 10*3/mm3 4.6-10.2 [...] % 11.6-14.8 platelet count 36 10^3/MM^3 10*3/mm3 265-503 8930/05/08 leukocyte count, blood 1.8 10^3/MM^3 10*3/mm3 4.6-10.2 [...] % 11.6-14.8 platelet count 103 10^3/MM^3 10*3/mm3 297-282 9884/06/05 leukocyte count, blood 2.7 10^3/MM^3 10*3/mm3 4.6-10.2 [...] % 11.6-14.8 platelet count 84 10^3/MM^3 10*3/mm3 098-056 9551/07/24 leukocyte count, blood 4.3 10^3/MM^3 10*3/mm3 4.6-10.2 [...] Panel - Chemistry sodium, serum 134 mmol/L 553-652 9131/06/12 carbon dioxide, venous blood 21.9 mmol/L 21.0-32.0 potassium, serum 4.4 mmol/L 3.5-5.2 chloride, serum 97 mmol/L 98-107 blood glucose 191 mg/dL 65- urea nitrogen, blood 23 mg/dL 7- creatinine, serum 1.68 mg/dL 0.60-1.30 alanine aminotransferase (SGPT), serum 64 U/L aspartate aminotransferase (SGOT), serum 35 U/L 15-37 calcium, serum 8.9 mg/dL 8.5-10.1 bilirubin, serum, total 0.70 mg/dL 0.00-1.00 sodium, serum 132 mmol/L 190-346 7872/06/19 carbon dioxide, venous blood 20.9 mmol/L 21.0-32.0 potassium, serum 3.9 mmol/L 3.5-5.2 chloride, serum 102 mmol/L 98-107 blood glucose 259 mg/dL - urea nitrogen, blood 16 mg/dL - creatinine, serum 1.46 mg/dL 0.60-1.30 alanine aminotransferase (SGPT), serum 62 U/L aspartate aminotransferase (SGOT), serum 27 U/L 15-37 calcium, serum 7.5 mg/dL 8.5-10.1 bilirubin, serum, total 0.50 mg/dL 0.00-1.00 sodium, serum 136 mmol/L 238-893 0411/05/29 carbon dioxide, venous blood 22.4 mmol/L 21.0-32.0 potassium, serum 4.0 mmol/L 3.5-5.2 chloride, serum 104 mmol/L 98-107 blood glucose 128 mg/dL - urea nitrogen, blood 20 mg/dL - creatinine, serum 1.47 mg/dL 0.60-1.30 alanine aminotransferase (SGPT), serum 80 U/L aspartate aminotransferase (SGOT), serum 38 U/L 15-37 calcium, serum 9.1 mg/dL 8.5-10.1 bilirubin, serum, total 0.40 mg/dL 0.00-1.00 sodium, serum 134 mmol/L 430-250 1677/05/22 carbon dioxide, venous blood 25.2 mmol/L 21.0-32.0 potassium, serum 5.0 mmol/L 3.5-5.2 chloride, serum 100 mmol/L 98-107 blood glucose 278 mg/dL 65-95 urea nitrogen, blood 19 mg/dL 7-18 creatinine, serum 1.49 mg/dL 0.60-1.30 alanine aminotransferase (SGPT), serum 93 U/L 12-78 aspartate aminotransferase (SGOT), serum 58 U/L 15- calcium, serum 9.1 mg/dL 8.5-10.1 bilirubin, serum, total 0.20 mg/dL 0.00-1.00 Lab Report: Comp. Metabolic Panel, CBC W/DIFF - Chemistry sodium, serum 137 mmol/L 645-735 1091/08/16 carbon dioxide, venous blood 26.3 mmol/L 21.0-32.0 [...] LABS - Chemistry cholesterol, serum 115 mg/dL 985-169 7367/08/18 triglyceride, serum, fasting 89 mg/dL 30-200 HDL [...] mg/dL Encounters Code Encounter Date Provider Facility CPT-82926 [id number] Vst-Est Level IV 11:03:20 CDT Prosper Arenas MD [facility] CPT-00415 Level 3 Est. Patient 14:09:25 EDITOR MANAGING DIRECTOR Dee Palmer APRN [facility] CPT-69087 Level 3 Est. Patient 10:53:32 EDITOR MANAGING DIRECTOR Moy Garcia [facility] CPT-23768 Level 3 Est. Patient 17:11:55 EDITOR MANAGING DIRECTOR Ismael Gracia MD [facility] CPT-60254 Level 4 Est. Patient 16:29:19 CDT Mekhi Dukes MD [facility] CPT-47894 Level 3 New Patient 17:05:24 CDT Ismael Gracia MD [facility] CPT-26550 Level 2 Est. Patient 15:43:17 CDT Mekhi Dukes MD [facility] CPT-11488 Level 3 Est. Patient 09:30:37 CDT Moy Garcia [facility] CPT-48508 Level 3 Est. Patient 10:00:14 CDT Mekhi Dukes MD [facility] CPT-03503 Level 3 Est. Patient 12:24:09 CDT Moy Garcia [facility] CPT-16897 Level 3 Est. Patient 14:34:57 CDT Prosper Arenas MD [facility] CPT-16123 Level 3 New Patient 15:44:53 EDITOR MANAGING DIRECTOR Mekhi Dukes MD [facility] CPT-98573 Level 3 Est. Patient 14:53:34 EDITOR MANAGING DIRECTOR Prosper Arenas MD [facility] CPT-34974 Level 4 Est. Patient 10:05:41 EDITOR MANAGING DIRECTOR Moy Garcia [facility] CPT-91521 Level 3 Est. Patient 11:18:32 CDT Moy Garcia [facility] CPT-91685 Level 4 Est. Patient 11:05:10 CDT Moy Garcia [facility] CPT-76987 Level 3 Est. Patient 11:08:27 EDITOR MANAGING DIRECTOR Moy Garcia [facility] CPT-02672 Level 4 Est. Patient 10:43:59 CDT Prosper Arenas MD [facility]-06436 Level 3 Est. Patient 10:51:19 CDT Moy Garcia [facility] CPT-30444 Level 3 Est. Patient 10:20:31 CDT Moy Garcia [facility] CPT-90740 Level 3 Est. [facility]:08:[facility] Est. Patient 13:54:36 CDT Augustina Mata APRN [facility] CPT-93767 Level 3 Est. Patient 12:00:42 CDT Prosper Arenas MD [facility] CPT-33030 Level 3 Est. Patient 09:57:28 EDITOR MANAGING DIRECTOR Moy Garcia [facility] CPT-65204 Level 3 Est. Patient 11:41:19 EDITOR MANAGING DIRECTOR Moy Garcia [facility] CPT-75971 Level 4 Est. Patient 17:07:35 EDITOR MANAGING DIRECTOR Moy Garcia [facility] CPT-16881 Level 5 Est. Patient 14:33:[address] [facility] CPT-87352 Level 3 Est. Patient 12:25:35 CDT Prosper Arenas MD [facility] Procedures Code Procedure Name Date Entry Date Standard Description CPT-34551 Chest, 2 views 14:17:20 EDITOR MANAGING DIRECTOR CPT-66017 Postop F/U Visit 14:44:45 EDITOR MANAGING DIRECTOR CPT-63939 Postop F/U Visit 17:20:20 EDITOR MANAGING DIRECTOR CPT-G0439 Subsequent Annual Wellness Exam 08:39:41 EDITOR MANAGING DIRECTOR CPT-000 Give Appropriate Flu Vaccine 10:13:55 EDITOR MANAGING DIRECTOR CPT-000 Give Immunizations Due 10:13:55 EDITOR MANAGING DIRECTOR CPT-59746 HGBA1C - LAB USE ONLY 09:42:47 EDITOR MANAGING DIRECTOR CPT-31824 TPSA - LAB USE ONLY 09:42:46 EDITOR MANAGING DIRECTOR CPT-31271 Venipuncture Draw Fee 09:42:46 EDITOR MANAGING DIRECTOR CPT-81926 Port a cath flush 13:33:18 EDITOR MANAGING DIRECTOR CPT-10164 First Vx - Ix admin for Medicare patients 10:42:57 EDITOR MANAGING DIRECTOR CPT-58336 Fluzone Preservative Free Intramuscular Suspension 10:42 :57 EDITOR MANAGING DIRECTOR CPT-G0438 Initial Annual Wellness Exam 10:13:55 EDITOR MANAGING DIRECTOR CPT-000 Give Appropriate Flu Vaccine 10:44:04 CDT CPT-000 Give Pneumovax 10:44:03 CDT CPT-95232 Port a cath flush 17:04:43 CDT CPT-65956 Prevnar 13 11:19:17 CDT CPT-58700 Fluzone Quadrivalent preservative free (>=3yrs.) 11:19: 17 CDT CPT-84495 Immunization Each Additional Inj 11:19:17 CDT CPT-12222 Immunization Single Admin 11:19:17 CDT CPT-51115 Port a cath flush 13:28:22 CDT CPT-TCMM Transitional Care Mgmt-Moderate 13:40:15 CDT CPT-G0008 Administration of Influenza Virus Vaccine 13:59:20 CDT CPT-05767 Fluzone High-Dose Intramuscular Suspension 13:59:20 CDT CPT-99039 Venipuncture Draw Fee 09:56:19 CDT CPT-OV Office Visit 15:46:10 CDT
--- OUTSIDE RECORDS SUMMARY | 2017-12-31 16:35 | XMS REPORT | Clinical Summary ---
Author Author Admin, [facility] Organization [facility] Address Unknown Phone Unavailable Allergies, Adverse Reactions, Alerts Allergy Name Reaction Description Start Date Severity Status Provider ERYTHROMYCIN Stomach cramps Moderate Active Prosper Arenas MD CODEINE Critical Active Maliheh Ziglari OCCUPATIONAL NURSE DARVOCET Critical Active Maliheh Ziglari OCCUPATIONAL NURSE LEVAQUIN Critical Active Maliheh Ziglari OCCUPATIONAL NURSE Conditions or Problems Problem Name Problem Code Onset Date Status Entry Date Provider Comment Standard Description Annotate Diabetes, Type 2 250.00 Resolved 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 mellitus without mention of complication, type [...] hyperglycemia 250.00 Active 03/21 Maliheh Ziglari OCCUPATIONAL NURSE Diabetes mellitus without mention of complication, type II or unspecified type, not stated as uncontrolled nursing home use of insulin treatment V58.67 Active Jose Antonioeh Rodrigoglari OCCUPATIONAL NURSE Long-term (current) use of insulin Diabetes mellitus, type II with hypoglycemia 250.80 Active 07/22 Maliheh Ziglari OCCUPATIONAL NURSE Diabetes mellitus with other specified manifestations, type II or unspecified type, not stated as uncontrolled 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 Maliheh Ziglari OCCUPATIONAL NURSE Diabetes mellitus with renal manifestations, type II or unspecified type, not stated as uncontrolled Wellness exam V70.0 Active Dee Palmer APRN Routine general medical examination at a health care facility Fitting and adjustment of vascular catheter V58.81 Active 02/06 Dee Palmer APRN Encounter for fitting and adjustment of vascular catheter Unawareness of hypoglycemia in diabetes mellitus, type II 250.80 Active Maliheh Rodrigoglari OCCUPATIONAL NURSE Diabetes mellitus with other specified manifestations, [...] specified as recurrent) Gastritis Inactive Maliheh Ziglari OCCUPATIONAL NURSE Unspecified gastritis and gastroduodenitis, without mention [...] TABLET 1 daily for depression CITALOPRAM HYDROBROMIDE 26840994908 Active Prosper Arenas MD Active PREDNISONE 20 MG ORAL TABLET 2 tabs daily for 4 days, 1 tab daily for 4 days, 1/2 tab daily for 4 days PREDNISONE 03037208494 No Longer Active Prosper Arenas MD Active AZITHROMYCIN 250 MG ORAL TABLET 2 po qd x 1 day, then 1 po qd x 4 days 05/07 AZITHROMYCIN 46230083898 No Longer Active Dee Palmer APRN Active GUAIFENESIN DM 400-20 MG ORAL TABLET 1 pill by mouth twice daily, if needed for cough DEXTROMETHORPHAN-GUAIFENESIN 21524549839 Active Dee Palmer APRN Active ASPIRIN 81 MG ORAL TABLET 1 po qd ASPIRIN 75981358635 Active Dee Palmer APRN Active CALCIUM 500/D 500-200 MG-UNIT ORAL TABLET one tablet daily CALCIUM CARBONATE-VITAMIN D 44971134311 No Longer Active Dee Palmer APRN Active HYDROCODONE-ACETAMINOPHEN 7.5-325 MG ORAL TABLET 1-2 every 4-6 hrs prn 02/25 HYDROCODONE-ACETAMINOPHEN 77742058234 Active Marina King BESSY Active ASPIRIN 81 MG ORAL TABLET 1 tablet by mouth daily ASPIRIN 91671803681 No Longer Active Marina King BESSY Active SIMVASTATIN 80 MG ORAL TABLET 1/2 tablet daily SIMVASTATIN 53042457079 No Longer Active Mekhi Dukes MD Active OMEPRAZOLE 20 MG ORAL CAPSULE DELAYED RELEASE 1 qd OMEPRAZOLE 01601800491 No Longer Active Mekhi Dukes MD Active METOPROLOL TARTRATE 25 MG ORAL TABLET 1/2 tablet twice a day METOPROLOL TARTRATE 66944756926 No Longer Active Mekhi Dukes MD Active LISINOPRIL 5 MG ORAL TABLET 1 daily LISINOPRIL 93640861419 No Longer Active Mekhi Dukes MD Active NOVOLOG FLEXPEN 100 UNIT/ML SUBCUTANEOUS SOLUTION PEN-INJECTOR Take 8 units with each meal, add 1u/50 for blood sugars above 150. INSULIN ASPART 83828953689 Active Moy PARISH Active GABAPENTIN 300 MG ORAL CAPSULE 1 tab BID GABAPENTIN 92919525982 Active Tami Miller RN Active PREDNISONE 20 MG ORAL TABLET Take 2 daily for 3 days and then 1 daily for 3 days PREDNISONE 20203941794 No Longer Active Malpapo Wallaceglari JEM Active BENZONATATE 200 MG ORAL CAPSULE Take 1 tablet 3 times a day as needed for cough BENZONATATE 81836053078 No Longer Active Prosper Arenas MD Active HYDROCHLOROTHIAZIDE 25 MG ORAL TABLET 1 tablet by mouth daily HYDROCHLOROTHIAZIDE 24177415543 No Longer Active Prosper Arenas MD Active ACCU-CHEK JOANNA PLUS IN VITRO STRIP check blood sugars 5x a day, before each meal and bedtime and 15 minutes after treating a low blood. sugar GLUCOSE BLOOD 27277713561 Active Maliheh Ziglari OCCUPATIONAL NURSE Active LANTUS SOLOSTAR 100 UNIT/ML SUBCUTANEOUS SOLUTION PEN-INJECTOR Take 40 units at 7-8pm daily INSULIN GLARGINE 80062072655 Active Maliheh Ziglari OCCUPATIONAL NURSE Active MECLIZINE HCL 25 MG ORAL TABLET 1 daily needed for dizziness 2015 MECLIZINE HCL 15141229762 No Longer Active Maliheh Ziglari OCCUPATIONAL NURSE Active BENZONATATE 200 MG ORAL CAPSULE 1 tab, 2-3 times a day BENZONATATE 32852266610 No Longer Active Maliheh Ziglari OCCUPATIONAL NURSE Active HALOPERIDOL 0.5 MG ORAL TABLET one tablet three times a day HALOPERIDOL 71998644461 No Longer Active Maliheh Ziglari OCCUPATIONAL NURSE Active TRAZODONE HCL 50 MG ORAL TABLET three tablets at bed time TRAZODONE HCL 14822696819 No Longer Active Maliheh Ziglari OCCUPATIONAL NURSE Active REVLIMID 25 MG ORAL CAPSULE one capsule daily for 21 days then off for 7 days LENALIDOMIDE 17848001164 No Longer Active Maliheh Ziglari OCCUPATIONAL NURSE Active ZITHROMAX Z-EDDIE 250 MG ORAL TABLET 2 today, then 1 daily for 4 days AZITHROMYCIN 52473977525 No Longer Active Augustina Mata APRN Active NOVOLIN R RELION 100 UNIT/ML INJECTION SOLUTION 30- 40 units each meal sliding scale INSULIN REGULAR HUMAN 90382906766 No Longer Active Maliheh Ziglari OCCUPATIONAL NURSE Active HYDROCODONE-ACETAMINOPHEN 5-500 MG ORAL TABLET 1-2 FOUR TIMES A DAY, PRN 2010 HYDROCODONE-ACETAMINOPHEN 14306685954 No Longer Active Prosper Arenas MD Active DOXYCYCLINE HYCLATE 100 MG ORAL CAPSULE take one capsule by mouth twice daily for ten days DOXYCYCLINE HYCLATE 43503595164 No Longer Active Mekhi Dukes MD Active DOXYCYCLINE HYCLATE 100 MG ORAL CAPSULE take one capsule by mouth twice daily for ten days DOXYCYCLINE HYCLATE 100 MG ORAL CAPSULE 3024291 DOXYCYCLINE HYCLATE Inactive HYDROCODONE-ACETAMINOPHEN 5-500 MG ORAL [...] days ZITHROMAX Z-EDDIE 250 MG ORAL TABLET 166027 AZITHROMYCIN Inactive REVLIMID 25 MG ORAL CAPSULE one capsule daily for 21 days then off for 7 days REVLIMID 25 MG ORAL CAPSULE LENALIDOMIDE Inactive TRAZODONE HCL 50 MG ORAL TABLET three tablets at bed time TRAZODONE HCL 50 MG ORAL TABLET 791053 TRAZODONE HCL Inactive HALOPERIDOL 0.5 MG ORAL TABLET one tablet three times a day HALOPERIDOL 0.5 MG ORAL TABLET 760167 HALOPERIDOL Inactive BENZONATATE 200 MG ORAL CAPSULE 1 tab, 2-3 times a day BENZONATATE 200 MG ORAL CAPSULE 539506 BENZONATATE Inactive MECLIZINE HCL 25 MG ORAL TABLET 1 daily needed for dizziness 2015 MECLIZINE HCL 25 MG ORAL TABLET 139068 MECLIZINE HCL Inactive HYDROCHLOROTHIAZIDE 25 MG ORAL TABLET 1 tablet by mouth daily HYDROCHLOROTHIAZIDE 25 MG ORAL TABLET 689840 HYDROCHLOROTHIAZIDE Inactive PREDNISONE 20 MG ORAL TABLET Take 2 daily for 3 days and then 1 daily for 3 days PREDNISONE 20 MG ORAL TABLET 541710 PREDNISONE Inactive LISINOPRIL 5 MG ORAL TABLET 1 daily LISINOPRIL 5 MG ORAL TABLET 724303 LISINOPRIL Inactive METOPROLOL TARTRATE 25 MG ORAL TABLET 1/2 tablet twice a day METOPROLOL TARTRATE 25 MG ORAL TABLET 343920 METOPROLOL TARTRATE Inactive OMEPRAZOLE 20 MG ORAL CAPSULE DELAYED RELEASE 1 qd OMEPRAZOLE 20 MG ORAL CAPSULE DELAYED RELEASE 026253 OMEPRAZOLE Inactive SIMVASTATIN 80 MG ORAL TABLET 1/2 tablet daily SIMVASTATIN 80 MG ORAL TABLET 277720 SIMVASTATIN Inactive ASPIRIN 81 MG ORAL TABLET [...] 4 days PREDNISONE 20 MG ORAL TABLET 896816 PREDNISONE Inactive BENZONATATE 200 MG ORAL CAPSULE Take 1 tablet 3 times a day as needed for cough BENZONATATE 200 MG ORAL CAPSULE 908538 BENZONATATE Inactive AZITHROMYCIN 250 MG ORAL TABLET 2 po qd x 1 day, then 1 po qd x 4 days 05/07 AZITHROMYCIN 250 MG ORAL TABLET 141462 AZITHROMYCIN Inactive Advance Directives Directive Description Start [...] % 11.6-14.8 platelet count 294 10^3/MM^3 10*3/mm3 056-607 7976/05/29 leukocyte count, blood 2.4 10^3/MM^3 10*3/mm3 4.6-10.2 [...] % 11.6-14.8 platelet count 138 10^3/MM^3 10*3/mm3 981-180 1310/06/12 leukocyte count, blood 4.3 10^3/MM^3 10*3/mm3 4.6-10.2 [...] % 11.6-14.8 platelet count 355 10^3/MM^3 10*3/mm3 209-575 7891/06/19 leukocyte count, blood 2.2 10^3/MM^3 10*3/mm3 4.6-10.2 [...] % 11.6-14.8 platelet count 109 10^3/MM^3 10*3/mm3 040-480 6119/07/06 leukocyte count, blood 5.1 10^3/MM^3 10*3/mm3 4.6-10.2 [...] Panel - Chemistry sodium, serum 137 mmol/L 343-470 1579/06/05 carbon dioxide, venous blood 26.0 mmol/L 21.0-32.0 potassium, serum 4.5 mmol/L 3.5-5.2 chloride, serum 100 mmol/L 98-107 blood glucose 100 mg/dL 65-95 urea nitrogen, blood 16 mg/dL 7-18 creatinine, serum 1.67 mg/dL 0.60-1.30 alanine aminotransferase (SGPT), serum 75 U/L 12-78 aspartate aminotransferase (SGOT), serum 46 U/L 15-37 calcium, serum 9.8 mg/dL 8.5-10.1 bilirubin, serum, total 0.40 mg/dL 0.00-1.00 sodium, serum 124 mmol/L 844-569 2473/07/06 carbon dioxide, venous blood 20.9 mmol/L 21.0-32.0 potassium, serum 4.0 mmol/L 3.5-5.2 chloride, serum 90 mmol/L 98-107 blood glucose 175 mg/dL 65-95 urea nitrogen, blood 14 mg/dL 7-18 creatinine, serum 1.21 mg/dL 0.60-1.30 alanine aminotransferase (SGPT), serum 70 U/L 12-78 aspartate aminotransferase (SGOT), serum 32 U/L 15-37 calcium, serum 8.5 mg/dL 8.5-10.1 bilirubin, serum, total 0.80 mg/dL 0.00-1.00 sodium, serum 134 mmol/L 952-564 3921/05/15 carbon dioxide, venous blood 23.5 mmol/L 21.0-32.0 potassium, serum 4.8 mmol/L 3.5-5.2 chloride, serum 101 mmol/L 98-107 blood glucose 139 mg/dL 65- urea nitrogen, blood 19 mg/dL 7-18 creatinine, serum 1.79 mg/dL 0.60-1.30 alanine aminotransferase (SGPT), serum 140 U/L - aspartate aminotransferase (SGOT), serum 104 U/L 15-37 calcium, serum 8.5 mg/dL 8.5-10.1 bilirubin, serum, total 0.40 mg/dL 0.00-1.00 sodium, serum 139 mmol/L 480-201 0603/05/01 carbon dioxide, venous blood 25.2 mmol/L 21.0-32.0 potassium, serum 4.1 mmol/L 3.5-5.2 chloride, serum 104 mmol/L 98-107 blood glucose 64 mg/dL 65-95 urea nitrogen, blood 16 mg/dL 7-18 creatinine, serum 1.55 mg/dL 0.60-1.30 alanine aminotransferase (SGPT), serum 80 U/L - aspartate aminotransferase (SGOT), serum 53 U/L - calcium, serum 8.1 mg/dL 8.5-10.1 bilirubin, serum, total 0.40 mg/dL 0.00-1.00 sodium, serum 135 mmol/L 932-609 5171/05/08 carbon dioxide, venous blood 29.0 mmol/L 21.0-32.0 potassium, serum 4.8 mmol/L 3.5-5.2 chloride, serum 101 mmol/L 98-107 blood glucose 165 mg/dL 65-95 urea nitrogen, blood 19 mg/dL 7-18 creatinine, serum 1.51 mg/dL 0.60-1.30 alanine aminotransferase (SGPT), serum 65 U/L aspartate aminotransferase (SGOT), serum 38 U/L calcium, serum 8.2 mg/dL 8.5-10.1 bilirubin, serum, total 0.50 mg/dL 0.00-1.00 sodium, serum 135 mmol/L 509-871 4696/04/10 carbon dioxide, venous blood 26.1 mmol/L 21.0-32.0 potassium, serum 4.2 mmol/L 3.5-5.2 chloride, serum 100 mmol/L 98-107 blood glucose 293 mg/dL 65-110 urea nitrogen, blood 18 mg/dL 7-18 creatinine, serum 2.06 mg/dL 0.60-1.30 alanine aminotransferase (SGPT), serum 59 U/L aspartate aminotransferase (SGOT), serum 47 U/L - calcium, serum 8.6 mg/dL 8.5-10.1 bilirubin, serum, [...] % 11.6-14.8 platelet count 271 10^3/MM^3 10*3/mm3 926-186 1583/04/10 leukocyte count, blood 4.8 10^3/MM^3 10*3/mm3 4.6-10.2 [...] % 11.6-14.8 platelet count 200 10^3/MM^3 10*3/mm3 302-370 4152/05/15 leukocyte count, blood 1.7 10^3/MM^3 10*3/mm3 4.6-10.2 [...] % 11.6-14.8 platelet count 36 10^3/MM^3 10*3/mm3 301-469 5122/05/08 leukocyte count, blood 1.8 10^3/MM^3 10*3/mm3 4.6-10.2 [...] % 11.6-14.8 platelet count 103 10^3/MM^3 10*3/mm3 124-856 4325/06/05 leukocyte count, blood 2.7 10^3/MM^3 10*3/mm3 4.6-10.2 [...] Panel - Chemistry sodium, serum 134 mmol/L 039-530 5502/06/12 carbon dioxide, venous blood 21.9 mmol/L 21.0-32.0 potassium, serum 4.4 mmol/L 3.5-5.2 chloride, serum 97 mmol/L 98-107 blood glucose 191 mg/dL - urea nitrogen, blood 23 mg/dL 7- creatinine, serum 1.68 mg/dL 0.60-1.30 alanine aminotransferase (SGPT), serum 64 U/L aspartate aminotransferase (SGOT), serum 35 U/L 15- calcium, serum 8.9 mg/dL 8.5-10.1 bilirubin, serum, total 0.70 mg/dL 0.00-1.00 sodium, serum 132 mmol/L 841-796 2646/06/19 carbon dioxide, venous blood 20.9 mmol/L 21.0-32.0 potassium, serum 3.9 mmol/L 3.5-5.2 chloride, serum 102 mmol/L 98-107 blood glucose 259 mg/dL urea nitrogen, blood 16 mg/dL - creatinine, serum 1.46 mg/dL 0.60-1.30 alanine aminotransferase (SGPT), serum 62 U/L aspartate aminotransferase (SGOT), serum 27 U/L - calcium, serum 7.5 mg/dL 8.5-10.1 bilirubin, serum, total 0.50 mg/dL 0.00-1.00 sodium, serum 136 mmol/L 781-056 6285/05/29 carbon dioxide, venous blood 22.4 mmol/L 21.0-32.0 potassium, serum 4.0 mmol/L 3.5-5.2 chloride, serum 104 mmol/L 98-107 blood glucose 128 mg/dL - urea nitrogen, blood 20 mg/dL - creatinine, serum 1.47 mg/dL 0.60-1.30 alanine aminotransferase (SGPT), serum 80 U/L aspartate aminotransferase (SGOT), serum 38 U/L 15-37 calcium, serum 9.1 mg/dL 8.5-10.1 bilirubin, serum, total 0.40 mg/dL 0.00-1.00 sodium, serum 134 mmol/L 228-833 0725/05/22 carbon dioxide, venous blood 25.2 mmol/L 21.0-32.0 potassium, serum 5.0 mmol/L 3.5-5.2 chloride, serum 100 mmol/L 98-107 blood glucose 278 mg/dL 65-95 urea nitrogen, blood 19 mg/dL 7-18 creatinine, serum 1.49 mg/dL 0.60-1.30 alanine aminotransferase (SGPT), serum 93 U/L - aspartate aminotransferase (SGOT), serum 58 U/L 15- calcium, serum 9.1 mg/dL 8.5-10.1 bilirubin, serum, total 0.20 mg/dL 0.00-1.00 Lab Report: Comp. Metabolic Panel, CBC W/DIFF - Chemistry sodium, serum 137 mmol/L 409-049 6104/08/16 carbon dioxide, venous blood 26.3 mmol/L 21.0-32.0 [...] mg/dL Encounters Code Encounter Date Provider Facility CPT-45143 [id number] Vst-Est Level IV 11:03:20 CDT Prosper Arenas MD [facility] CPT-34732 Level 3 Est. Patient 14:09:25 LUNG GUN OPERATOR Dee Palmer APRN [facility] CPT-34600 Level 3 Est. Patient 10:53:32 LUNG GUN OPERATOR Moy Garcia [facility] CPT-01449 Level 3 Est. Patient 17:11:55 LUNG GUN OPERATOR Ismael Gracia MD [facility] CPT-84720 Level 4 Est. Patient 16:29:19 CDT Mekhi Dukes MD [facility] CPT-73529 Level 3 New Patient 17:05:24 CDT Ismael Gracia MD [facility] CPT-52189 Level 2 Est. Patient 15:43:17 CDT Mekhi Dukes MD [facility] CPT-84470 Level 3 Est. [facility]30[facility] Est. Patient 10:00:14 CDT Mekhi Dukes MD [facility] CPT-34623 Level 3 Est. Patient 12:24:09 CDT Moy Garcia [facility] CPT-51214 Level 3 Est. Patient 14:34:57 CDT Prosper Arenas MD [facility] CPT-54586 Level 3 New Patient 15:44:53 LUNG GUN OPERATOR Mekhi Dukes MD [facility] CPT-49346 Level 3 Est. Patient 14:53:34 LUNG GUN OPERATOR Prosper Arenas MD [facility] CPT-35396 Level 4 Est. Patient 10:05:41 LUNG GUN OPERATOR Moy Garcia [facility] CPT-76949 Level 3 Est. Patient 11:18:32 CDT Moy Garcia [facility] CPT-10455 Level 4 Est. Patient 11:05:10 [facility] CPT-64793 Level 3 Est. Patient 11:08:27 LUNG GUN OPERATOR Moy Garcia [facility] CPT-73492 Level 4 Est. Patient 10:43:59 CDT Prosper Arenas MD [facility]-21281 Level 3 Est. Patient 10:51:19 CDT Moy Garcia [facility] CPT-28047 Level 3 Est. Patient 10:20:31 [facility] CPT-81613 Level 3 Est. [facility]:08:45 [facility] Level 2 Est. Patient 13:54:36 CDT Augustina Mata APRN [facility] CPT-28458 Level 3 Est. Patient 12:00:42 CDT Prosper Arenas MD [facility]-73228 Level 3 Est. Patient 09:57:28 LUNG GUN OPERATOR Moy Garcia [facility] CPT-30793 Level 3 Est. Patient 11:41:19 LUNG GUN OPERATOR Moy Garcia [facility] CPT-53865 Level 4 Est. Patient 17:07:35 LUNG GUN OPERATOR Moy Garcia [facility] CPT-58142 Level 5 Est. Patient 14:33:32 [facility] CPT-40285 Level 3 Est. Patient 12:25:35 CDT Prosper Arenas MD [facility] Procedures Code Procedure Name Date Entry Date Standard Description CPT-58098 Chest, 2 views 14:17:20 LUNG GUN OPERATOR CPT-95670 Postop F/U Visit 14:44:45 LUNG GUN OPERATOR CPT-40173 Postop F/U Visit 17:20:20 LUNG GUN OPERATOR CPT-G0439 Subsequent Annual Wellness Exam 08:39:41 LUNG GUN OPERATOR CPT-000 Give Appropriate Flu Vaccine 10:13:55 LUNG GUN OPERATOR CPT-000 Give Immunizations Due 10:13:55 LUNG GUN OPERATOR CPT-87145 HGBA1C - LAB USE ONLY 09:42:47 LUNG GUN OPERATOR CPT-37471 TPSA - LAB USE ONLY 09:42:46 LUNG GUN OPERATOR CPT-14242 Venipuncture Draw Fee 09:42:46 LUNG GUN OPERATOR CPT-57579 Port a cath flush 13:33:18 LUNG GUN OPERATOR CPT-57012 First Vx - Ix admin for Medicare patients 10:42:57 LUNG GUN OPERATOR CPT-47208 Fluzone Preservative Free Intramuscular Suspension 10:42 :57 LUNG GUN OPERATOR CPT-G0438 Initial Annual Wellness Exam 10:13:55 LUNG GUN OPERATOR CPT-000 Give Appropriate Flu Vaccine 10:44:04 CDT CPT-000 Give Pneumovax 10:44:03 CDT CPT-34338 Port a cath flush 17:04:43 CDT CPT-32587 Prevnar 13 11:19:17 CDT CPT-53885 Fluzone Quadrivalent preservative free (>=3yrs.) 11:19: 17 CDT CPT-68056 Immunization Each Additional Inj 11:19:17 CDT CPT-03698 Immunization Single Admin 11:19:17 CDT CPT-79116 Port a cath flush 13:28:22 CDT CPT-TCMM Transitional Care Mgmt-Moderate 13:40:15 CDT CPT-G0008 Administration of Influenza Virus Vaccine 13:59:20 CDT CPT-82492 Fluzone High-Dose Intramuscular Suspension 13:59:20 CDT CPT-21514 Venipuncture Draw Fee 09:56:19 CDT CPT-OV Office Visit 15:46:10 CDT
[2017-12-31] MEDS ORDERED: POTASSIUM CL 10MEQ/50ML IVPB 50 ML IV SCH (16:45)
[2017-12-31 17:47] VITALS: BP 128/88
--- OUTSIDE RECORDS SUMMARY | 2017-12-31 17:52 | XMS REPORT | Clinical Summary ---
Author Author Admin, [facility] Organization [facility] Address Unknown Phone Unavailable Allergies, [...] OMEPRAZOLE 20 MG CPDR 1 qd OMEPRAZOLE 55814489371 Active DARCIE Miller Active DOXYCYCLINE HYCLATE 100 MG CAPS take one capsule by mouth twice daily for ten days DOXYCYCLINE HYCLATE 59525841450 No Longer Active Mekhi Dukes MD Active HYDROCODONE-ACETAMINOPHEN 5-500 MG TABS 1-2 FOUR TIMES A DAY, PRN HYDROCODONE-ACETAMINOPHEN 23608921342 Active Prosper Arenas MD Active DOXYCYCLINE HYCLATE 100 MG CAPS take one capsule by mouth twice daily for ten days DOXYCYCLINE HYCLATE 100 MG CAPS 681275 DOXYCYCLINE HYCLATE Inactive Vital Signs Date Name [...]
--- OUTSIDE RECORDS SUMMARY | 2017-12-31 17:52 | XMS REPORT | Clinical Summary ---
Author Author Admin, [facility] Address Unknown Phone Unavailable Allergies, Adverse Reactions, Alerts Allergy Name Reaction Description Start Date Severity Status Provider CODEINE Critical Active Maliheh Ziglari HIGH LIFT OPERATOR ERYTHROMYCIN Critical Active Maliheh Ziglari HIGH LIFT OPERATOR DARVOCET Critical Active Maliheh Ziglari HIGH LIFT OPERATOR LEVAQUIN Critical Active Maliheh Ziglari HIGH LIFT OPERATOR Conditions or Problems Problem Name Problem [...] type II, uncontrolled 250.02 Active Maliheh Ziglari HIGH LIFT OPERATOR Diabetes mellitus without mention of complication, [...] for blood sugars above 150 INSULIN ASPART 93483834510 Active Moy Wallaceglrex HIGH LIFT OPERATOR Active NOVOLIN R RELION 100 UNIT/ML INJ SOLN 30- 40 units each meal sliding scale INSULIN REGULAR HUMAN 08114110909 No Longer Active Moy Bradshawrex HIGH LIFT OPERATOR Active LANTUS SOLOSTAR 100 UNIT/ML SOLN 40 units at 4-5pm daily INSULIN GLARGINE 93002771870 Active Moy Jose PARISH Active LISINOPRIL 5 MG TABS 1 daily LISINOPRIL 46823629532 Active Prosper Arenas MD Active CALCIUM 500/D 500-200 MG-UNIT TABS one tablet daily CALCIUM CARBONATE- VITAMIN D 62387080945 Active Prosper Arenas MD Active REVLIMID 25 MG CAPS one capsule daily for 21 days then off for 7 days LENALIDOMIDE 53044112757 Active Prosper Arenas MD Active HYDROCHLOROTHIAZIDE 25 MG TABS 1 tablet by mouth daily HYDROCHLOROTHIAZIDE 73971842493 Active Prosper Arenas MD Active HYDROCODONE-ACETAMINOPHEN 5-500 MG TABS 1-2 FOUR TIMES A DAY, PRN HYDROCODONE-ACETAMINOPHEN 31807798940 No Longer Active Prosper Arenas MD Active TRAZODONE HCL 50 MG TAB three tablets at bed time TRAZODONE HCL 09167704279 Active Prosper Arenas MD Active SIMVASTATIN 80 MG TABS 1/2 tablet daily SIMVASTATIN 81286358844 Active Prosper Arenas MD Active METOPROLOL TARTRATE 25 MG TABS 1/2 tablet twice a day METOPROLOL TARTRATE 69237599798 Active Prosper Arenas MD Active HALOPERIDOL 0.5 MG TABS one tablet three times a day HALOPERIDOL 30530393998 Active Prosper Arenas MD Active ASPIRIN 81 MG TAB 1 tablet by mouth daily ASPIRIN 02403620685 Active Prosper Arenas MD Active OMEPRAZOLE 20 MG CPDR 1 qd OMEPRAZOLE 35121542937 Active DARCIE Miller Active DOXYCYCLINE HYCLATE 100 MG CAPS take one capsule by mouth twice daily for ten days DOXYCYCLINE HYCLATE 72120649711 No Longer Active Mekhi Dukes MD Active [...] 80 mm[Hg] BP chavez blood pressure, systolic 140 mm[Hg] BP sys pulse rate E&M 100 /min Heart rate weight E&M 170 [lb_av] Weight Measured blood pressure, diastolic 60 [...] Panel - Chemistry sodium, serum 137 mmol/L 214-894 2529/08/22 potassium, serum 4.0 mmol/L 3.5-5.2 chloride, serum [...] Ag - Chemistry sodium, serum 131 mmol/L 505-216 6666/10/13 potassium, serum 3.6 mmol/L 3.5-5.2 chloride, serum [...] 0.60 mg/dL 0.00-1.00 cholesterol, serum 98 mg/dL 391-401 2817/10/13 triglyceride, serum, fasting 125 mg/dL 30-200 HDL [...] mg/dL Encounters Code Encounter Date Provider Facility CPT-56838 Level 4 Est. Patient 17:07:35 HOMICIDE SQUAD CAPTAIN [facility] [place] [facility] CPT-28969 Level 5 Est. Patient 14:33:32 CDT [facility] [place] CPT-94420 Level 3 Est. Patient 12:25:35 CDT Prosper Arenas MD [facility] Procedures Code Procedure Name Date Entry Date Standard Description CPT-TCMM Transitional Care Mgmt-Moderate 13:40:15 CDT CPT-G0008 Administration of Influenza Virus Vaccine 13:59:20 CDT CPT-66497 Fluzone High-Dose Intramuscular Suspension 13:59:20 CDT CPT-67730 Venipuncture Draw Fee 09:56:19 CDT CPT-OV Office Visit 15:46:10 CDT
--- OUTSIDE RECORDS SUMMARY | 2017-12-31 17:53 | XMS REPORT | Clinical Summary ---
Author Author Admin, IWONA [facility] Address Unknown Phone Unavailable Allergies, Adverse Reactions, Alerts Allergy Name Reaction Description Start Date Severity Status Provider CODEINE Critical Active Maliheh Ziglari DISC PAD PLATE FILLER ERYTHROMYCIN Critical Active Maliheh Ziglari DISC PAD PLATE FILLER DARVOCET Critical Active Maliheh Ziglari DISC PAD PLATE FILLER LEVAQUIN Critical Active Maliheh Ziglari DISC PAD PLATE FILLER Conditions or Problems Problem Name Problem Code [...] type II, uncontrolled 250.02 Active Maliheh Ziglari DISC PAD PLATE FILLER Diabetes mellitus without mention of complication, type [...] for blood sugars above 150 INSULIN ASPART 10118512212 Active Moy Wallaceglrex DISC PAD PLATE FILLER Active NOVOLIN R RELION 100 UNIT/ML INJ SOLN 30- 40 units each meal sliding scale INSULIN REGULAR HUMAN 72539866510 No Longer Active Moy Bradshawrex DISC PAD PLATE FILLER Active LANTUS SOLOSTAR 100 UNIT/ML SOLN 40 units at 4-5pm daily INSULIN GLARGINE 19228490528 Active Moy Jose PARISH Active LISINOPRIL 5 MG TABS 1 daily LISINOPRIL 01518261698 Active Prosper Arenas MD Active CALCIUM 500/D 500-200 MG-UNIT TABS one tablet daily CALCIUM CARBONATE- VITAMIN D 41859486994 Active Prosper Arenas MD Active REVLIMID 25 MG CAPS one capsule daily for 21 days then off for 7 days LENALIDOMIDE 71917440914 Active Prosper Arenas MD Active HYDROCHLOROTHIAZIDE 25 MG TABS 1 tablet by mouth daily HYDROCHLOROTHIAZIDE 43981582209 Active Prosper Arenas MD Active HYDROCODONE-ACETAMINOPHEN 5-500 MG TABS 1-2 FOUR TIMES A DAY, PRN HYDROCODONE-ACETAMINOPHEN 47642642588 No Longer Active Prosper Arenas MD Active TRAZODONE HCL 50 MG TAB three tablets at bed time TRAZODONE HCL 78377940007 Active Prosper Arenas MD Active SIMVASTATIN 80 MG TABS 1/2 tablet daily SIMVASTATIN 10294339912 Active Prosper Arenas MD Active METOPROLOL TARTRATE 25 MG TABS 1/2 tablet twice a day METOPROLOL TARTRATE 42212398695 Active Prosper Arenas MD Active HALOPERIDOL 0.5 MG TABS one tablet three times a day HALOPERIDOL 83602152490 Active Prosper Arenas MD Active ASPIRIN 81 MG TAB 1 tablet by mouth daily ASPIRIN 17144197085 Active Prosper Arenas MD Active OMEPRAZOLE 20 MG CPDR 1 qd OMEPRAZOLE 97854107084 Active DARCIE Miller Active DOXYCYCLINE HYCLATE 100 MG CAPS take one capsule by mouth twice daily for ten days DOXYCYCLINE HYCLATE 90919762969 No Longer Active Mekhi Dukes MD Active [...] Panel - Chemistry sodium, serum 137 mmol/L 438-725 0414/08/22 potassium, serum 4.0 mmol/L 3.5-5.2 chloride, serum 100 mmol/L 98-107 carbon dioxide, venous blood 27.9 mmol/L 21.0-32.0 blood glucose 109 mg/dL 65-110 calcium, serum 9.0 mg/dL 8.5-10.1 urea nitrogen, blood 15 mg/dL 7-18 creatinine, serum 2.00 mg/dL 0.60-1.30 Lab Report: CBC W/DIFF, Comp. Metabolic Panel - Chemistry sodium, serum 135 mmol/L 977-741 6032/11/26 potassium, serum 4.4 mmol/L 3.5-5.2 chloride, serum [...] Ag - Chemistry sodium, serum 131 mmol/L 492-915 1943/10/13 potassium, serum 3.6 mmol/L 3.5-5.2 chloride, serum [...] 0.60 mg/dL 0.00-1.00 cholesterol, serum 98 mg/dL 760-684 2854/10/13 triglyceride, serum, fasting 125 mg/dL 30-200 HDL [...] mg/dL Encounters Code Encounter Date Provider Facility CPT-61030 Level 4 Est. 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 Patient 14:33:32 CDT [facility] CPT-33962 Level 3 Est. Patient 12:25:35 CDT Prosper Arenas MD [facility] Procedures Code Procedure Name Date Entry Date Standard Description CPT-TCMM Transitional Care Mgmt-Moderate 13:40:15 CDT CPT-G0008 Administration of Influenza Virus Vaccine 13:59:20 CDT CPT-08111 Fluzone High-Dose Intramuscular Suspension 13:59:20 CDT CPT-37057 Venipuncture Draw Fee 09:56:19 CDT CPT-OV Office Visit 15:46:10 CDT
--- OUTSIDE RECORDS SUMMARY | 2017-12-31 17:53 | XMS REPORT | Clinical Summary ---
Author Author Admin, IWONA Organization [facility] Address Unknown Phone Unavailable Allergies, Adverse [...] Instructions Start Date Stop Date Generic Name FORMERLY NAMED [facility] Status Provider Patient Instruction LISINOPRIL 5 MG TABS 1 daily LISINOPRIL 62186964558 Active Prospre Arenas MD Active CALCIUM 500/D 500-200 MG-UNIT TABS one tablet daily CALCIUM CARBONATE- VITAMIN D 37344050005 Active Prosper Arenas MD Active REVLIMID 25 MG CAPS one capsule daily for 21 days then off for 7 days LENALIDOMIDE 51147355009 Active Prosper Arenas MD Active HYDROCHLOROTHIAZIDE 25 MG TABS 1 tablet by mouth daily HYDROCHLOROTHIAZIDE 18901078531 Active Prosper Arenas MD Active HYDROCODONE-ACETAMINOPHEN 5-500 MG TABS 1-2 FOUR TIMES A DAY, PRN HYDROCODONE-ACETAMINOPHEN 44619980390 No Longer Active Prosper Arenas MD Active TRAZODONE HCL 50 MG TAB three tablets at bed time TRAZODONE HCL 85865114960 Active Prosper Arenas MD Active SIMVASTATIN 80 MG TABS 1/2 tablet daily SIMVASTATIN 07003894520 Active Prosper Arenas MD Active METOPROLOL TARTRATE 25 MG TABS 1/2 tablet twice a day METOPROLOL TARTRATE 70807041491 Active Prosper Arenas MD Active NOVOLIN R RELION 100 UNIT/ML INJ SOLN one unit four times a day, sliding scale INSULIN REGULAR HUMAN 06919881748 Active Prosper Arenas MD Active LANTUS SOLOSTAR 100 UNIT/ML SOLN 40 units at bed time INSULIN GLARGINE 41798952560 Active Prosper Arenas MD Active HALOPERIDOL 0.5 MG TABS one tablet three times a day HALOPERIDOL 07264478436 Active Prosper Arenas MD Active ASPIRIN 81 MG TAB 1 tablet by mouth daily ASPIRIN 47500616847 Active Prosper Arenas MD Active OMEPRAZOLE 20 MG CPDR 1 qd OMEPRAZOLE 45781796971 Active DARCIE Miller Active DOXYCYCLINE HYCLATE 100 MG CAPS take one capsule by mouth twice daily for ten days DOXYCYCLINE HYCLATE 74468911160 No Longer Active Mekhi Dukes MD Active DOXYCYCLINE HYCLATE 100 MG CAPS take one capsule by mouth twice daily for ten days DOXYCYCLINE HYCLATE 100 MG CAPS 040917 DOXYCYCLINE HYCLATE Inactive HYDROCODONE-ACETAMINOPHEN 5-500 MG TABS [...] Panel - Chemistry sodium, serum 137 mmol/L 685-107 9777/08/22 potassium, serum 4.0 mmol/L 3.5-5.2 chloride, serum [...] Ag - Chemistry sodium, serum 131 mmol/L 861-741 1665/10/13 potassium, serum 3.6 mmol/L 3.5-5.2 chloride, serum [...] 0.60 mg/dL 0.00-1.00 cholesterol, serum 98 mg/dL 764-645 8340/10/13 triglyceride, serum, fasting 125 mg/dL 30-200 HDL cholesterol, serum 28 mg/dL 32-96 LDL cholesterol, serum 45 mg/dL 0-130 prostate specific antigen 0.30 ng/mL 0.00-4.00 Office Visit: Followup on Abdominal Pain - Chemistry cholesterol, target level 200 mg/dL triglyceride, target level 200 mg/dL HDL cholesterol, serum, target level 35 mg/dL LDL target level 100 mg/dL Encounters Code Encounter Date Provider Facility CPT-33413 Level 3 Est. Patient 12:25:35 CDT Prosper Arenas MD [facility] Procedures Code Procedure Name Date Entry Date Standard Description CPT-G0008 Administration of Influenza Virus Vaccine 13:59:20 CDT CPT-49049 Fluzone High-Dose Intramuscular Suspension 13:59:20 CDT CPT-69011 Venipuncture Draw Fee 09:56:19 CDT CPT-OV Office Visit 15:46:10 CDT
--- OUTSIDE RECORDS SUMMARY | 2017-12-31 17:53 | XMS REPORT ---
Author Author [facility] Medical Staff Organization [facility] Address [address] [place] [address] Phone [phone] Care Team Providers Care Doctor Of Nursing Practice Name Role Phone YOMI RAMESH MD PP [phone] Summary purpose TRANSITION OF CARE AUTO GENERATION [...] Relevant diagnostic tests and/or laboratory data RESULTS Radiology Results [id number] MYOCARDIAL SPECT MULT PACs Image DATE OF EXAM: Jan 18 2014 [id number] SPECT MULTIPLE : RADIOLOGY REPORT DATE OF SERVICE: 01/18/14 HISTORY:Syncope and collapse, chest pain, shortness of breath, hypertension, myocardial infarction, stents, diabetes mellitus WALKING PHARMACOLOGICAL MYOCARDIAL PERFUSION STUDY (WALKING LEXISCAN STUDY) 0950 HOURS The patient initially is given 8.0 mCi of technetium 99m labeled Cardiolite intravenously. After a 56 minute delay, resting SPECT perfusion images are obtained. The patient is then given the pharmacological stress agent by referring clinician and exercised on a treadmill. At maximal stress, the patient is given 26.6 mCi of technetium 99m labeled Cardiolite intravenously. After a 54 minute delay, gated stress SPECT perfusion images are obtained. On the nongated stress SPECT perfusion study, there is a minor perfusion defect along the inferior wall of the left ventricle. This is less apparent on the stress images than on the resting images. This therefore represents a typical artifact from this being a male patient. The differential diagnosis could include a small area of previous infarction which appears unlikely. On the gated study, the minor perfusion defect along the inferior wall of the left ventricle is barely perceptible so that this definitely is a technical artifact. The remainder of the stress SPECT perfusion images are normal and basically identical with the resting images, so there is no evidence for any reversible ischemia. On the gated images, the distal left ventricular ejection fraction calculated at 58% which is normal. There is normal segmental left ventricular cardiac wall motion and thickening present. The inferior wall moves and thickens normally. IMPRESSION: 1)Essentially normal stress and resting myocardial perfusion images as described above. There is no evidence for any reversible ischemia. 2)The gated study has a left ventricular ejection fraction calculated at 58% which is normal. There is normal segmental left ventricular cardiac wall motion and thickening present. The end-systolic volume is 26 cc. S MD MANUEL CollinsP/pb1 19:19:00 / 01/18/2014 20:43:24 cc:Dr. Yomi Ramesh This document has been electronically Signed by: On: History of procedures Procedure Code Code Type Description Date Performed Performing Physician 00344 CPT-4 CARDIOVASCULAR STRESS TEST 01-18-2014 YOMI RAMESH 98734 CPT-4 HT MUSCLE IMAGE SPECT, MULT 01-18-2014 YOMI RAMESH A9500 CPT-4 TC99M SESTAMIBI 01-18-2014 YOMI RAMESH J1642 CPT-4 INJ HEPARIN SODIUM PER 10 U 01-18-2014 YOMI RAMESH J2785 CPT-4 REGADENOSON INJECTION 01-18-2014 YOMI RAMESH Functional status No functional or cognitive status [...]
--- OUTSIDE RECORDS SUMMARY | 2017-12-31 17:54 | XMS REPORT | Clinical Summary ---
Author Author Admin, IWONA Organization [facility] Address Unknown Phone Unavailable Allergies, Adverse [...] Instructions Start Date Stop Date Generic Name [facility][NOTE 3] Status Provider Patient Instruction CALCIUM 500/D 500-200 MG-UNIT TABS one tablet daily CALCIUM CARBONATE- VITAMIN D 53933123171 Active Prosper Arenas MD Active REVLIMID 25 MG CAPS one capsule daily for 21 days then off for 7 days LENALIDOMIDE 96114905272 Active Prosper Arenas MD Active HYDROCHLOROTHIAZIDE 25 MG TABS 1 tablet by mouth daily HYDROCHLOROTHIAZIDE 90593876469 Active Prosper Arenas MD Active HYDROCODONE-ACETAMINOPHEN 5-500 MG TABS 1-2 FOUR TIMES A DAY, PRN HYDROCODONE-ACETAMINOPHEN 97028950264 No Longer Active Prosper Arenas MD Active TRAZODONE HCL 50 MG TAB three tablets at bed time TRAZODONE HCL 60331996071 Active Prosper Arenas MD Active SIMVASTATIN 80 MG TABS 1/2 tablet daily SIMVASTATIN 83354096657 Active Prosper Arenas MD Active METOPROLOL TARTRATE 25 MG TABS 1/2 tablet twice a day METOPROLOL TARTRATE 42792405976 Active Prosper Arenas MD Active NOVOLIN R RELION 100 UNIT/ML INJ SOLN one unit four times a day, sliding scale INSULIN REGULAR HUMAN 30920345521 Active Prosper Arenas MD Active LANTUS SOLOSTAR 100 UNIT/ML SOLN 40 units at bed time INSULIN GLARGINE 45730694507 Active Prosper Arenas MD Active HALOPERIDOL 0.5 MG TABS one tablet three times a day HALOPERIDOL 69319764494 Active Prosper Arenas MD Active ASPIRIN 81 MG TAB 1 tablet by mouth daily ASPIRIN 62241767355 Active Prosper Arenas MD Active OMEPRAZOLE 20 MG CPDR 1 qd OMEPRAZOLE 51258026069 Active DARCIE Miller Active DOXYCYCLINE HYCLATE 100 MG CAPS take one capsule by mouth twice daily for ten days DOXYCYCLINE HYCLATE 37257612366 No Longer Active Mekhi Dukes MD Active DOXYCYCLINE HYCLATE 100 MG CAPS take one capsule by mouth twice daily for ten days DOXYCYCLINE HYCLATE 100 MG CAPS 451238 DOXYCYCLINE HYCLATE Inactive HYDROCODONE-ACETAMINOPHEN 5-500 MG TABS [...] Panel - Chemistry sodium, serum 137 mmol/L 034-367 5805/08/22 potassium, serum 4.0 mmol/L 3.5-5.2 chloride, serum [...] mg/dL Encounters Code Encounter Date Provider Facility CPT-30994 Level 3 Est. Patient 12:25:35 CDT Prosper Arenas MD [facility] Procedures Code Procedure Name Date Entry Date Standard Description CPT-G0008 Administration of Influenza Virus Vaccine 13:59:20 CDT CPT-37617 Fluzone High-Dose Intramuscular Suspension 13:59:20 CDT CPT-86603 Venipuncture Draw Fee 09:56:19 CDT CPT-OV Office Visit 15:46:10 CDT
--- OUTSIDE RECORDS SUMMARY | 2017-12-31 17:54 | XMS REPORT | Clinical Summary ---
Author Author Admin, IWONA [facility] Address Unknown Phone Unavailable Allergies, Adverse Reactions, Alerts Allergy Name Reaction Description Start Date Severity Status Provider CODEINE Critical Active Maliheh Ziglari ACCOUNTS PAYABLE REPRESENTATIVE ERYTHROMYCIN Critical Active Maliheh Ziglari ACCOUNTS PAYABLE REPRESENTATIVE DARVOCET Critical Active Maliheh Ziglari ACCOUNTS PAYABLE REPRESENTATIVE LEVAQUIN Critical Active Maliheh Ziglari ACCOUNTS PAYABLE REPRESENTATIVE Conditions or Problems Problem Name Problem [...] type II, uncontrolled 250.02 Active Maliheh Ziglari ACCOUNTS PAYABLE REPRESENTATIVE Diabetes mellitus without mention of complication, [...] 30 units at 4-5pm daily INSULIN GLARGINE 10709057509 Active Malpapo Ziglari ACCOUNTS PAYABLE REPRESENTATIVE Active NOVOLOG FLEXPEN 100 UNIT/ML SOPN Take 5units with each meal, add 2u/50 for blood sugars above 150 INSULIN ASPART 12357979301 Active Malcarissaeh Ziglari ACCOUNTS PAYABLE REPRESENTATIVE Active NOVOLIN R RELION 100 UNIT/ML INJ SOLN 30- 40 units each meal sliding scale INSULIN REGULAR HUMAN 97364835792 No Longer Active Moy PARISH Active LISINOPRIL 5 MG TABS 1 daily LISINOPRIL 96306711165 Active Prosper Arenas MD Active CALCIUM 500/D 500-200 MG-UNIT TABS one tablet daily CALCIUM CARBONATE- VITAMIN D 54631808693 Active Prosper Arenas MD Active REVLIMID 25 MG CAPS one capsule daily for 21 days then off for 7 days LENALIDOMIDE 56334550733 Active Prosper Arenas MD Active HYDROCHLOROTHIAZIDE 25 MG TABS 1 tablet by mouth daily HYDROCHLOROTHIAZIDE 97182160837 Active Prosper Arenas MD Active HYDROCODONE-ACETAMINOPHEN 5-500 MG TABS 1-2 FOUR TIMES A DAY, PRN HYDROCODONE-ACETAMINOPHEN 25371649754 No Longer Active Prosper Arenas MD Active TRAZODONE HCL 50 MG TAB three tablets at bed time TRAZODONE HCL 90382134997 Active Prosper Arenas MD Active SIMVASTATIN 80 MG TABS 1/2 tablet daily SIMVASTATIN 68230989237 Active Prosper Arenas MD Active METOPROLOL TARTRATE 25 MG TABS 1/2 tablet twice a day METOPROLOL TARTRATE 35253374794 Active Prosper Arenas MD Active HALOPERIDOL 0.5 MG TABS one tablet three times a day HALOPERIDOL 14286778103 Active Prosper Arenas MD Active ASPIRIN 81 MG TAB 1 tablet by mouth daily ASPIRIN 02253913248 Active Prosper Arenas MD Active OMEPRAZOLE 20 MG CPDR 1 qd OMEPRAZOLE 48420728650 Active DARCIE Miller Active DOXYCYCLINE HYCLATE 100 MG CAPS take one capsule by mouth twice daily for ten days DOXYCYCLINE HYCLATE 65989029888 No Longer Active Mekhi Dukes MD Active [...] Panel - Chemistry sodium, serum 137 mmol/L 301-414 7137/08/22 potassium, serum 4.0 mmol/L 3.5-5.2 chloride, serum 100 mmol/L 98-107 carbon dioxide, venous blood 27.9 mmol/L 21.0-32.0 blood glucose 109 mg/dL 65-110 calcium, serum 9.0 mg/dL 8.5-10.1 urea nitrogen, blood 15 mg/dL 7-18 creatinine, serum 2.00 mg/dL 0.60-1.30 Lab Report: CBC W/DIFF, Comp. Metabolic Panel - Chemistry sodium, serum 135 mmol/L 795-661 6653/11/26 potassium, serum 4.4 mmol/L 3.5-5.2 chloride, serum [...] Ag - Chemistry sodium, serum 131 mmol/L 049-605 5553/10/13 potassium, serum 3.6 mmol/L 3.5-5.2 chloride, serum [...] 0.60 mg/dL 0.00-1.00 cholesterol, serum 98 mg/dL 592-448 0925/10/13 triglyceride, serum, fasting 125 mg/dL 30-200 HDL [...] mg/dL Encounters Code Encounter Date Provider Facility CPT-33473 Level 3 Est. 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 Patient 14:33:32 CDT [facility] CPT-27385 Level 3 Est. Patient 12:25:35 CDT Prosper Arenas MD [facility] Procedures Code Procedure Name Date Entry Date Standard Description CPT-TCMM Transitional Care Mgmt-Moderate 13:40:15 CDT CPT-G0008 Administration of Influenza Virus Vaccine 13:59:20 CDT CPT-24124 Fluzone High-Dose Intramuscular Suspension 13:59:20 CDT CPT-55643 Venipuncture Draw Fee 09:56:19 CDT CPT-OV Office Visit 15:46:10 CDT
--- OUTSIDE RECORDS SUMMARY | 2017-12-31 17:55 | XMS REPORT | Clinical Summary ---
Author Author Admin, IWONA [facility] Address Unknown Phone Unavailable Allergies, Adverse Reactions, Alerts Allergy Name Reaction Description Start Date Severity Status Provider CODEINE Critical Active Maliheh Ziglari PAPER REWINDER OPERATOR ERYTHROMYCIN Critical Active Maliheh Ziglari PAPER REWINDER OPERATOR DARVOCET Critical Active Maliheh Ziglari PAPER REWINDER OPERATOR LEVAQUIN Critical Active Maliheh Ziglari PAPER REWINDER OPERATOR Conditions or Problems Problem Name Problem [...] Abdominal pain, right upper quadrant 789.01 Active eMkhi Dukes MD Abdominal pain, right upper quadrant Syncope and collapse 780.2 Active Prosper Arenas MD Syncope and collapse Hypokalemia 276.8 Active Prosper Arenas MD Hypopotassemia Diabetes mellitus, type II, uncontrolled 250.02 Active Maliheh Ziglari PAPER REWINDER OPERATOR Diabetes mellitus without mention of complication, [...] 40 units at 4-5pm daily INSULIN GLARGINE 56441443034 Active Moy Jose DURANTP Active NOVOLIN R RELION 100 UNIT/ML INJ SOLN 30- 40 units each meal sliding scale INSULIN REGULAR HUMAN 52263730214 Active Jose Antonioshoaib Garcia PAPER REWINDER OPERATOR Active LISINOPRIL 5 MG TABS 1 daily LISINOPRIL 10606953323 Active Prosper Arenas MD Active CALCIUM 500/D 500-200 MG-UNIT TABS one tablet daily CALCIUM CARBONATE- VITAMIN D 44008171003 Active Prosper Arenas MD Active REVLIMID 25 MG CAPS one capsule daily for 21 days then off for 7 days LENALIDOMIDE 39868852878 Active Prosper Arenas MD Active HYDROCHLOROTHIAZIDE 25 MG TABS 1 tablet by mouth daily HYDROCHLOROTHIAZIDE 13646963520 Active Prosper Arenas MD Active HYDROCODONE-ACETAMINOPHEN 5-500 MG TABS 1-2 FOUR TIMES A DAY, PRN HYDROCODONE-ACETAMINOPHEN 29791479673 No Longer Active Prosper Arenas MD Active TRAZODONE HCL 50 MG TAB three tablets at bed time TRAZODONE HCL 91226119889 Active Prosper Arenas MD Active SIMVASTATIN 80 MG TABS 1/2 tablet daily SIMVASTATIN 10623342339 Active Prosper Arenas MD Active METOPROLOL TARTRATE 25 MG TABS 1/2 tablet twice a day METOPROLOL TARTRATE 87170097067 Active Prosper Arenas MD Active HALOPERIDOL 0.5 MG TABS one tablet three times a day HALOPERIDOL 01847311942 Active Prosper Arenas MD Active ASPIRIN 81 MG TAB 1 tablet by mouth daily ASPIRIN 62079776573 Active Prosper Arenas MD Active OMEPRAZOLE 20 MG CPDR 1 qd OMEPRAZOLE 27074685344 Active DARCIE Miller Active DOXYCYCLINE HYCLATE 100 MG CAPS take one capsule by mouth twice daily for ten days DOXYCYCLINE HYCLATE 29141393462 No Longer Active Mekhi Dukes MD Active [...] Panel - Chemistry sodium, serum 137 mmol/L 402-340 8057/08/22 potassium, serum 4.0 mmol/L 3.5-5.2 chloride, serum [...] Ag - Chemistry sodium, serum 131 mmol/L 886-444 4244/10/13 potassium, serum 3.6 mmol/L 3.5-5.2 chloride, serum [...] 0.60 mg/dL 0.00-1.00 cholesterol, serum 98 mg/dL 898-846 2364/10/13 triglyceride, serum, fasting 125 mg/dL 30-200 [...] mg/dL Encounters Code Encounter Date Provider Facility CPT-69269 Level 5 Est. Patient 14:33:32 CDT Moy PARISH [facility] CPT-66001 Level 3 Est. Patient 12:25:35 CDT Prosper Arenas MD [facility] Procedures Code Procedure Name Date Entry Date Standard Description CPT-TCMM Transitional Care Mgmt-Moderate 13:40:15 CDT CPT-G0008 Administration of Influenza Virus Vaccine 13:59:20 CDT CPT-38561 Fluzone High-Dose Intramuscular Suspension 13:59:20 CDT CPT-40526 Venipuncture Draw Fee 09:56:19 CDT CPT-OV Office Visit 15:46:10 CDT
--- OUTSIDE RECORDS SUMMARY | 2017-12-31 17:55 | XMS REPORT | Clinical Summary ---
Author Author Admin, IWONA Tinsley [facility] Address Unknown Phone Unavailable Allergies, Adverse Reactions, Alerts Allergy Name Reaction Description Start Date Severity Status Provider CODEINE Critical Active Maliheh Ziglari TRANSPORTATION DISPATCHER ERYTHROMYCIN Critical Active Maliheh Ziglari TRANSPORTATION DISPATCHER DARVOCET Critical Active Maliheh Ziglari TRANSPORTATION DISPATCHER LEVAQUIN Critical Active Maliheh Ziglari TRANSPORTATION DISPATCHER Conditions or Problems Problem Name Problem Code [...] type II, uncontrolled 250.02 Active Maliheh Ziglari TRANSPORTATION DISPATCHER Diabetes mellitus without mention of complication, type II or unspecified type, uncontrolled Medication List Medication Instructions Start Date Stop Date Generic Name NDC Status Provider Patient Instruction LANTUS SOLOSTAR 100 UNIT/ML SOLN 40 units at 4-5pm daily INSULIN GLARGINE 81732571735 Active Maliheh Ziglari TRANSPORTATION DISPATCHER Active NOVOLIN R RELION 100 UNIT/ML INJ SOLN 30- 40 units each meal sliding scale INSULIN REGULAR HUMAN 06690223951 Active Moy [place] Active LISINOPRIL 5 MG TABS 1 daily LISINOPRIL 32037472282 Active Prosper Arenas MD Active CALCIUM 500/D 500-200 MG-UNIT TABS one tablet daily CALCIUM CARBONATE- VITAMIN D 35201287911 Active Prosper Arenas MD Active REVLIMID 25 MG CAPS one capsule daily for 21 days then off for 7 days LENALIDOMIDE 35165634144 Active Prosper Arenas MD Active HYDROCHLOROTHIAZIDE 25 MG TABS 1 tablet by mouth daily HYDROCHLOROTHIAZIDE 88169158404 Active Prosper Arenas MD Active HYDROCODONE-ACETAMINOPHEN 5-500 MG TABS 1-2 FOUR TIMES A DAY, PRN HYDROCODONE-ACETAMINOPHEN 18882461203 No Longer Active Prosper Arenas MD Active TRAZODONE HCL 50 MG TAB three tablets at bed time TRAZODONE HCL 74788123254 Active Prosper Arenas MD Active SIMVASTATIN 80 MG TABS 1/2 tablet daily SIMVASTATIN 27034327276 Active Prosper Arenas MD Active METOPROLOL TARTRATE 25 MG TABS 1/2 tablet twice a day METOPROLOL TARTRATE 79023952326 Active Prosper Arenas MD Active HALOPERIDOL 0.5 MG TABS one tablet three times a day HALOPERIDOL 71926142248 Active Prosper Arenas MD Active ASPIRIN 81 MG TAB 1 tablet by mouth daily ASPIRIN 77251963859 Active Prosper Arenas MD Active OMEPRAZOLE 20 MG CPDR 1 qd OMEPRAZOLE 96827607026 Active DARCIE Miller Active DOXYCYCLINE HYCLATE 100 MG CAPS take one capsule by mouth twice daily for ten days DOXYCYCLINE HYCLATE 72501608265 No Longer Active Mekhi Dukes MD Active DOXYCYCLINE HYCLATE 100 MG CAPS take one capsule by mouth twice daily for ten days DOXYCYCLINE HYCLATE 100 MG CAPS 276519 DOXYCYCLINE HYCLATE Inactive HYDROCODONE-ACETAMINOPHEN 5-500 MG TABS [...] Description Chart Maintenance: Outside labs entered on [email or web address] - Chemistry sodium, serum 134 mmol/L potassium, serum 3.4 mmol/L blood glucose 268 mg/dL creatinine, serum 1.87 mg/dL aspartate aminotransferase (SGOT), serum 26 U/L alanine aminotransferase (SGPT), serum 44 U/L alkaline phosphatase, serum 110 U/L Chart Maintenance: Outside labs entered on [employer] - Hematology leukocyte count, blood 5.3 10*3/mm3 hemoglobin, blood 14.0 g/dL platelet count 240 10*3/mm3 Lab Report: Basic Metabolic Panel - Chemistry sodium, serum 137 mmol/L 451-101 5955/08/22 potassium, serum 4.0 mmol/L 3.5-5.2 chloride, serum [...] Ag - Chemistry sodium, serum 131 mmol/L 366-689 9192/10/13 potassium, serum 3.6 mmol/L 3.5-5.2 chloride, serum [...] 0.60 mg/dL 0.00-1.00 cholesterol, serum 98 mg/dL 378-308 2242/10/13 triglyceride, serum, fasting 125 mg/dL 30-200 HDL [...] mg/dL Encounters Code Encounter Date Provider Facility CPT-98999 Level 5 Est. Patient 14:33:32 CDT [place]oy PAR[place] [facility] CPT-85228 Level 3 Est. Patient 12:25:35 CDT Prosper Arenas MD [facility] Procedures Code Procedure Name Date Entry Date Standard Description CPT-G0008 Administration of Influenza Virus Vaccine 13:59:20 CDT CPT-18229 Fluzone High-Dose Intramuscular Suspension 13:59:20 CDT CPT-55617 Venipuncture Draw Fee 09:56:19 CDT CPT-OV Office Visit 15:46:10 CDT
--- OUTSIDE RECORDS SUMMARY | 2017-12-31 17:56 | XMS REPORT | Clinical Summary ---
Author Author Admin, IWONA Tinsley [facility] Address Unknown Phone Unavailable Allergies, Adverse Reactions, Alerts Allergy Name Reaction Description Start Date Severity Status Provider CODEINE Critical Active Maliheh Ziglari PATTERN SHOP SUPERVISOR ERYTHROMYCIN Critical Active Maliheh Ziglari PATTERN SHOP SUPERVISOR DARVOCET Critical Active Maliheh Ziglari PATTERN SHOP SUPERVISOR LEVAQUIN Critical Active Maliheh Ziglari PATTERN SHOP SUPERVISOR Conditions or Problems Problem Name Problem [...] type II, uncontrolled 250.02 Active Maliheh Ziglari PATTERN SHOP SUPERVISOR Diabetes mellitus without mention of complication, [...] for blood sugars above 150 INSULIN ASPART 15984833243 Active Malcarissaeh Ziglari PATTERN SHOP SUPERVISOR Active LANTUS SOLOSTAR 100 UNIT/ML SOLN 30 units at 4-5pm daily INSULIN GLARGINE 22774150135 Active Maliheh Ziglari PATTERN SHOP SUPERVISOR Active NOVOLIN R RELION 100 UNIT/ML INJ SOLN 30- 40 units each meal sliding scale INSULIN REGULAR HUMAN 76879899682 No Longer Active Moy Garcia PATTERN SHOP SUPERVISOR Active LISINOPRIL 5 MG TABS 1 daily LISINOPRIL 66994707153 Active Prosper Arenas MD Active CALCIUM 500/D 500-200 MG-UNIT TABS one tablet daily CALCIUM CARBONATE- VITAMIN D 38031187791 Active Prosper Arenas MD Active REVLIMID 25 MG CAPS one capsule daily for 21 days then off for 7 days LENALIDOMIDE 87247592710 Active Prosper Arenas MD Active HYDROCHLOROTHIAZIDE 25 MG TABS 1 tablet by mouth daily HYDROCHLOROTHIAZIDE 23039526689 Active Prosper Arenas MD Active HYDROCODONE-ACETAMINOPHEN 5-500 MG TABS 1-2 FOUR TIMES A DAY, PRN HYDROCODONE-ACETAMINOPHEN 87026169325 No Longer Active Prosper Arenas MD Active TRAZODONE HCL 50 MG TAB three tablets at bed time TRAZODONE HCL 83553621669 Active Prosper Arenas MD Active SIMVASTATIN 80 MG TABS 1/2 tablet daily SIMVASTATIN 14498506172 Active Prosper Arenas MD Active METOPROLOL TARTRATE 25 MG TABS 1/2 tablet twice a day METOPROLOL TARTRATE 17484435134 Active Prosper Arenas MD Active HALOPERIDOL 0.5 MG TABS one tablet three times a day HALOPERIDOL 38228824396 Active Prosper Arenas MD Active ASPIRIN 81 MG TAB 1 tablet by mouth daily ASPIRIN 94809503333 Active Prosper Arenas MD Active OMEPRAZOLE 20 MG CPDR 1 qd OMEPRAZOLE 38804620060 Active DARCIE Miller Active DOXYCYCLINE HYCLATE 100 MG CAPS take one capsule by mouth twice daily for ten days DOXYCYCLINE HYCLATE 22165106563 No Longer Active Mekhi Dukes MD Active [...] Panel - Chemistry sodium, serum 137 mmol/L 429-323 7912/08/22 potassium, serum 4.0 mmol/L 3.5-5.2 chloride, serum 100 mmol/L 98-107 carbon dioxide, venous blood 27.9 mmol/L 21.0-32.0 blood glucose 109 mg/dL 65-110 calcium, serum 9.0 mg/dL 8.5-10.1 urea nitrogen, blood 15 mg/dL 7-18 creatinine, serum 2.00 mg/dL 0.60-1.30 Lab Report: CBC W/DIFF, Comp. Metabolic Panel - Chemistry sodium, serum 135 mmol/L 973-841 7899/11/26 potassium, serum 4.4 mmol/L 3.5-5.2 chloride, serum 100 mmol/L 98-107 carbon dioxide, venous blood 30.7 mmol/L 21.0-32.0 blood glucose 251 mg/dL 65-110 urea nitrogen, blood 15 mg/dL 7-18 creatinine, serum 1.60 mg/dL 0.60-1.30 alanine aminotransferase (SGPT), serum 48 U/L 12-78 aspartate aminotransferase (SGOT), serum 30 U/L 15-37 calcium, serum 8.7 mg/dL 8.5-10.1 bilirubin, serum, total 0.30 mg/dL 0.00-1.00 sodium, serum 137 mmol/L 912-689 5740/01/21 potassium, serum 4.1 mmol/L 3.5-5.2 chloride, serum [...] % 11.6-14.8 platelet count 137 10^3/MM^3 10*3/mm3 893-546 0936/11/26 leukocyte count, blood 4.3 10^3/MM^3 10*3/mm3 4.6-10.2 [...] Ag - Chemistry sodium, serum 131 mmol/L 249-931 7927/10/13 potassium, serum 3.6 mmol/L 3.5-5.2 chloride, serum [...] 0.60 mg/dL 0.00-1.00 cholesterol, serum 98 mg/dL 139-562 2666/10/13 triglyceride, serum, fasting 125 mg/dL 30-200 HDL [...] mg/dL Encounters Code Encounter Date Provider Facility CPT-91064 Level 3 Est. Patient 09:57:28 [facility] [place] CPT-80883 Level 3 Est. Patient 11:41:19 [facility] [facility] [place] CPT-52034 Level 4 Est. Patient 17:07:35 [facility] [facility] [place] CPT-84138 Level 5 Est. Patient 14:33:32 CDT [facility] [place] CPT-96250 Level 3 Est. Patient 12:25:35 CDT Prosper Arenas MD [facility] Procedures Code Procedure Name Date Entry Date Standard Description CPT-TCMM Transitional Care Mgmt-Moderate 13:40:15 CDT CPT-G0008 Administration of Influenza Virus Vaccine 13:59:20 CDT CPT-17908 Fluzone High-Dose Intramuscular Suspension 13:59:20 CDT CPT-61014 Venipuncture Draw Fee 09:56:19 CDT CPT-OV Office Visit 15:46:10 CDT
--- OUTSIDE RECORDS SUMMARY | 2017-12-31 17:56 | XMS REPORT | Clinical Summary ---
Author Author Admin, IWONA Tinsley [facility] Address Unknown Phone Unavailable Allergies, Adverse Reactions, Alerts Allergy Name Reaction Description Start Date Severity Status Provider CODEINE Critical Active Maliheh Ziglari CHLORINE OPERATOR ERYTHROMYCIN Critical Active Maliheh Ziglari CHLORINE OPERATOR DARVOCET Critical Active Maliheh Ziglari CHLORINE OPERATOR LEVAQUIN Critical Active Maliheh Ziglari CHLORINE OPERATOR Conditions or Problems Problem Name Problem [...] type II, uncontrolled 250.02 Active Maliheh Ziglari CHLORINE OPERATOR Diabetes mellitus without mention of complication, [...] for blood sugars above 150 INSULIN ASPART 81603686552 Active Malcarissaeh Ziglari CHLORINE OPERATOR Active LANTUS SOLOSTAR 100 UNIT/ML SOLN 30 units at 4-5pm daily INSULIN GLARGINE 33797214090 Active Maliheh Ziglari CHLORINE OPERATOR Active NOVOLIN R RELION 100 UNIT/ML INJ SOLN 30- 40 units each meal sliding scale INSULIN REGULAR HUMAN 54084719159 No Longer Active Moy Garcia CHLORINE OPERATOR Active LISINOPRIL 5 MG TABS 1 daily LISINOPRIL 35832881635 Active Prosper Arenas MD Active CALCIUM 500/D 500-200 MG-UNIT TABS one tablet daily CALCIUM CARBONATE- VITAMIN D 29139358283 Active Prosper Arenas MD Active REVLIMID 25 MG CAPS one capsule daily for 21 days then off for 7 days LENALIDOMIDE 62414641738 Active Prosper Arenas MD Active HYDROCHLOROTHIAZIDE 25 MG TABS 1 tablet by mouth daily HYDROCHLOROTHIAZIDE 14850235651 Active Prosper Arenas MD Active HYDROCODONE-ACETAMINOPHEN 5-500 MG TABS 1-2 FOUR TIMES A DAY, PRN HYDROCODONE-ACETAMINOPHEN 70801889895 No Longer Active Prosper Arenas MD Active TRAZODONE HCL 50 MG TAB three tablets at bed time TRAZODONE HCL 77004034853 Active Prosper Arenas MD Active SIMVASTATIN 80 MG TABS 1/2 tablet daily SIMVASTATIN 52555307732 Active Prosper Arenas MD Active METOPROLOL TARTRATE 25 MG TABS 1/2 tablet twice a day METOPROLOL TARTRATE 53390683867 Active Prosper Arenas MD Active HALOPERIDOL 0.5 MG TABS one tablet three times a day HALOPERIDOL 21066917947 Active Prosper Arenas MD Active ASPIRIN 81 MG TAB 1 tablet by mouth daily ASPIRIN 37609288208 Active Prosper Arenas MD Active OMEPRAZOLE 20 MG CPDR 1 qd OMEPRAZOLE 18417499021 Active DARCIE Miller Active DOXYCYCLINE HYCLATE 100 MG CAPS take one capsule by mouth twice daily for ten days DOXYCYCLINE HYCLATE 57902540443 No Longer Active Mekhi Dukes MD Active [...] Panel - Chemistry sodium, serum 137 mmol/L 779-085 2845/08/22 potassium, serum 4.0 mmol/L 3.5-5.2 chloride, serum 100 mmol/L 98-107 carbon dioxide, venous blood 27.9 mmol/L 21.0-32.0 blood glucose 109 mg/dL 65-110 calcium, serum 9.0 mg/dL 8.5-10.1 urea nitrogen, blood 15 mg/dL 7-18 creatinine, serum 2.00 mg/dL 0.60-1.30 Lab Report: Basic Metabolic Panel, [id number] - Chemistry sodium, serum 134 mmol/L 141-401 3632/01/27 potassium, serum 4.1 mmol/L 3.5-5.2 chloride, serum 96 mmol/L 98-107 carbon dioxide, venous blood 35.1 mmol/L 21.0-32.0 blood glucose 346 mg/dL 65-110 calcium, serum 8.4 mg/dL 8.5-10.1 urea nitrogen, blood 18 mg/dL 7-18 creatinine, serum 2.00 mg/dL 0.60-1.30 hemoglobin A1C, blood, as % of total hemoglobin 8.4 % 4.3-6.0 Lab Report: CBC W/DIFF, Comp. Metabolic Panel - Chemistry sodium, serum 137 mmol/L 685-678 8623/01/21 potassium, serum 4.1 mmol/L 3.5-5.2 chloride, serum 99 mmol/L 98-107 carbon dioxide, venous blood 30.9 mmol/L 21.0-32.0 blood glucose 303 mg/dL 65-110 urea nitrogen, blood 19 mg/dL 7-18 creatinine, serum 2.00 mg/dL 0.60-1.30 alanine aminotransferase (SGPT), serum 84 U/L 12-78 aspartate aminotransferase (SGOT), serum 41 U/L 15-37 calcium, serum 7.8 mg/dL 8.5-10.1 bilirubin, serum, total 0.50 mg/dL 0.00-1.00 sodium, serum 135 mmol/L 082-976 4086/11/26 potassium, serum 4.4 mmol/L 3.5-5.2 chloride, serum [...] % 11.6-14.8 platelet count 172 10^3/MM^3 10*3/mm3 385-668 2195/01/21 leukocyte count, blood 6.3 10^3/MM^3 10*3/mm3 4.6-10.2 [...] Ag - Chemistry sodium, serum 131 mmol/L 417-277 1622/10/13 potassium, serum 3.6 mmol/L 3.5-5.2 chloride, serum [...] 0.60 mg/dL 0.00-1.00 cholesterol, serum 98 mg/dL 302-544 0068/10/13 triglyceride, serum, fasting 125 mg/dL 30-200 HDL [...] mg/dL Encounters Code Encounter Date Provider Facility CPT-90923 Level 3 Est. Patient 09:57:28 PUPPET ENGINEER [facility] [place] CPT-79103 Level 3 Est. Patient 11:41:19 PUPPET ENGINEER [facility] [place] CPT-35198 Level 4 Est. Patient 17:07:35 PUPPET ENGINEER [facility] [place] CPT-61359 Level 5 Est. Patient 14:33:32 CDT [facility] [place] CPT-79971 Level 3 Est. Patient 12:25:35 CDT Prosper Arenas MD [facility] Procedures Code Procedure Name Date Entry Date Standard Description CPT-TCMM Transitional Care Mgmt-Moderate 13:40:15 CDT CPT-G0008 Administration of Influenza Virus Vaccine 13:59:20 CDT CPT-49035 Fluzone High-Dose Intramuscular Suspension 13:59:20 CDT CPT-23037 Venipuncture Draw Fee 09:56:19 CDT CPT-OV Office Visit 15:46:10 CDT
== END 2017-12-31 17:47 | disposition home or self-care (01) ==
LOC: EDUNIT# 15:12 → ER 15:15
DX: E86.0 Dehydration (principal); T45.1X5A Adverse effect of antineoplastic and immunosuppressive drugs, initial encounter; C90.02 Multiple myeloma in relapse; I25.10 Atherosclerotic heart disease of native coronary artery without angina pectoris; I25.2 Old myocardial infarction; I10 Essential (primary) hypertension; E11.9 Type 2 diabetes mellitus without complications; E78.00 Pure hypercholesterolemia, unspecified; K21.9 Gastro-esophageal reflux disease without esophagitis; Z87.19 Personal history of other diseases of the digestive system; Z88.5 Allergy status to narcotic agent; Z88.8 Allergy status to other drugs, medicaments and biological substances; Z88.0 Allergy status to penicillin; Z79.4 Long term (current) use of insulin; Z87.891 Personal history of nicotine dependence; Z95.5 Presence of coronary angioplasty implant and graft; Z87.01 Personal history of pneumonia (recurrent)
CPT/HCPCS: 36415; 80053; 85025